=== PATIENT | female | born 1950 | race Caucasian/White ===

== ENCOUNTER 2023-04-24 12:52 | Outpatient (CLI) | payer MEDICARE, OTHER, SELFPAY ==
--- NOTE | ~2023-04-24 | MR_ITS ---
EXAMINATION: MR lumbar spine wo con DATE: 04/24/2023 13:24 INDICATION: Dorsalgia, unspecified. TECHNIQUE: Magnetic resonance imaging (MRI) of the lumbar spine was performed without intravenous con trast. Sequences included sagittal T2-weighted FSE, sagittal T2-weighted FS FSE, sagittal T1-weighted FSE, and axial T2-weighted FSE. COMPARISON: None FINDINGS: There is 6 degrees dextrocurvature of lumbar spine. Vertebral body heights are normal. Ther e is moderately decreased disc height at L4-L5 and L5-S1. The distal spinal cord signal intensity is normal. The conus medullaris is at L1. The following disc levels are specifically discussed: L1-L2: The disc is bulging. There is mild bilateral facet joint osteoarthritis. There is no neural fo raminal stenosis. There is mild central canal stenosis. L2-L3: The disc is bulging. There is mild bilateral facet joint osteoarthritis. There is mild bilater al neural foraminal stenosis. There is mild central canal stenosis. L3-L4: The disc is bulging. There is mild bilateral facet joint osteoarthritis. There is mild bilater al neural foraminal stenosis. There is mild central canal stenosis. L4-L5: The disc is bulging and has an annular fissure. There is mild bilateral facet joint osteoarthr itis. There is moderate right and mild left neural foraminal stenosis. There is mild central canal st enosis. L5-S1: The disc is bulging and has an annular fissure. There is mild bilateral facet joint osteoarthr itis. There is moderate bilateral neural foraminal stenosis. There is mild central canal stenosis. IMPRESSION: 1. Moderate lumbar spondylosis. Reviewed, dictated and finalized at location E.
--- NOTE | ~2023-04-24 | CT_ITS ---
EXAMINATION: CT lumbar spine wo con DATE: 04/24/2023 13:32 INDICATION: Dorsalgia, unspecified. TECHNIQUE: Computed tomography (CT) of the lumbar spine was performed without intravenous contrast. A utomated exposure control and iterative reconstruction technique were employed. The dose-length produ ct was 1286.92 mGy-cm. COMPARISON: Lumbar spine MRI 04/24/2023 FINDINGS: There is a moderate-sized sliding hiatal hernia. There is 9 degrees dextrocurvature of lumb ar spine. Vertebral body heights are normal. There is mildly decreased disc height at L3-L4, moderate ly decreased disc height at L4-L5, and severely decreased disc height at L5-S1. The following disc le vels are specifically discussed: L1-L2: The disc is bulging. There is mild bilateral facet joint osteoarthritis. There is no neural fo raminal stenosis. There is mild central canal stenosis. L2-L3: The disc is bulging. There is mild bilateral facet joint osteoarthritis. There is mild bilater al neural foraminal stenosis. There is mild central canal stenosis. L3-L4: The disc is bulging. There is mild bilateral facet joint osteoarthritis. There is mild bilater al neural foraminal stenosis. There is mild central canal stenosis. L4-L5: The disc is bulging. There is mild bilateral facet joint osteoarthritis. There is moderate rig ht and mild left neural foraminal stenosis. There is mild central canal stenosis. L5-S1: The disc is bulging. There is moderate right and mild left facet joint osteoarthritis. There i s moderate bilateral neural foraminal stenosis. There is mild central canal stenosis. IMPRESSION: 1. Severe lower lumbar spondylosis. 2. Moderate-sized sliding hiatal hernia. Reviewed, dictated and finalized at location E.
== END 2023-04-24 12:53 | disposition home or self-care (01) ==
LOC: ANHIMG 12:54
PROVIDERS: Visit Provider Neurological Surgery
DX: M47.896 Other spondylosis, lumbar region (principal); K44.9 Diaphragmatic hernia without obstruction or gangrene
CPT/HCPCS: 72131; 72148

== ENCOUNTER 2023-07-29 12:27 | Outpatient (CLI) | payer MEDICARE, OTHER, SELFPAY ==
--- NOTE | 2023-07-29 12:43 | ECG_ITS ---
Measurements Intervals [place] Rate: 74 P: -31 AR: 129 QRS: -50 QRSD: 118 T: 53 QT: 406 QTc: 453 Interpretive Statements SINUS RHYTHM LEFT ANTERIOR FASCICULAR BLOCK VOLTAGE CRITERIA FOR LVH BASELINE ARTIFACT- I, II, III, AVR, AVL, AVF, V1-V6 ABNORMAL ECG NO PREVIOUS ECG AVAILABLE FOR COMPARISON Electronically Signed On 07-29-2023 13:22:29 ASSET PROTECTION ASSISTANT by Amilcar Simons D.O.
[2023-07-29 13:14] LABS: Hematocrit 40.1 % (37.0-47.0); Mean Corpuscular HGB Conc 32.4 g/dl (32-36); Mean Corpuscular Hemoglobin 30.2 pg (26-34); Mean Corpuscular Volume 93.3 fl (80-100); Mean Platelet Volume 11.6 fl (7.4-10.4); Platelet Count Result 201 k/mm3 (150-375); White Blood Count 7.8 K/mm3 (4.5-10.0)
[2023-07-29 13:20] LABS: Appearance Urine Cloudy (Clear); Bacteria Urine 4+ /hpf; Bilirubin Urine Negative (Negative); Blood Urine Negative (Negative); Color Urine Yellow (Yellow); Glucose Urine UA Negative (Negative); Ketones Urine Negative (Negative); Leukocyte Esterase Ur Trace LEU/UL (Negative); Nitrate Urine Positive (Negative); Non Pathogenic Casts 0-2; Protein Urine Negative (Negative); RBC Urine 0-2 /hpf (0-2); Specific Grav Ur 1.014 (1.001-1.035); Squamous Epithelial Cell Urine Few /hpf (Few); Urobilinogen Urine 0.2 mg/dL (<2.0); pH Urine 5.5 (5.0-9.0)
[2023-07-29 13:26] LABS: INR 0.9; Prothrombin Time 12.4 Seconds (11.1-14.7)
[2023-07-29 13:27] LABS: Partial Thromboplastin Time 25.8 SECONDS (22.3-36.8)
[2023-07-29 13:34] LABS: Anion Gap 9 mmol/L (8-16); Blood Urea Nitrogen 23 mg/dL (7-17); Calcium 9.4 mg/dL (8.4-10.2); Carbon Dioxide 28 mmol/L (22-30); Chloride 102 mmol/L (98-107); Estimated Glomerular Filt Rate > 60; Glucose 116 mg/dL (65-110); Potassium 4.2 mmol/L (3.4-5.0); Sodium 139 mmol/L (137-145)
[2023-07-29 13:40] LABS: Add Urine Microscopic? YES
== END 2023-07-29 12:28 | disposition home or self-care (01) ==
LOC: ANHSURGERY 12:34
PROVIDERS: PCP Internal Medicine; Visit Provider Neurological Surgery
DX: E78.00 Pure hypercholesterolemia, unspecified (principal); M48.07 Spinal stenosis, lumbosacral region
CPT/HCPCS: 36415; 80048; 81001; 85027; 85610; 85730; 87077; 87086; 87186; 93005

== ENCOUNTER 2023-08-04 01:30 | Day surgery (SDC) | payer MEDICARE, OTHER, SELFPAY ==
[2023-07-27 09:47] VITALS: BMI 31.8
--- NOTE | 2023-07-27 10:09 | PC.NURSE ---
PRE-OP INSTRUCTIONS, PLEASE READ CAREFULLY Report to the Outpatient Waiting Room, entrance under the green pavilion located off [facility], at time _1030_ on date _08/04/23_. Planned Procedure Time: _1230_. ONLY 2 VISITORS ALLOWED IN PRE-OP AREA, PACK A SMALL OVERNIGHT BAG AND LEAVE IN THE CAR Time changes happen often and if your time is changed the preop area will call you the afternoon before. - You and your visitor will be asked to self-screen and do not enter if you have any COVID symptoms. - A mask is optional within the hospital at this time. -VISITING HOURS 8AM-8PM Patients may have clear liquids (water, carbonated beverages, clear teas, apple juice) until 3 hours prior to surgery (0930 AM) with a maximum of 20 ounces. - No food from midnight until time of surgery Take the following medications with a SIP of water the morning of surgery: _GABAPENTIN, LEVOTHYROXINE, MECLIZINE, SYMBICORT INHALER, & HYDROXYZINE, ALBUTEROL INHALER IF NEEDED_ DO NOT STOP ANY OF YOUR OTHER PRESCRIPTION MEDICATIONS PRIOR TO SURGERY ?EXCEPT THE FOLLOWING Medications to discontinue per DR. OLIVAREZ - _PLAVIX, MELOXICAM 7 DAYS PRIOR TO SURGERY, Date to take last dose 07/27/23_ Please no make-up, nail yi, hairspray, perfume, deodorant, or body powder the day of surgery. No jewelry (including any body piercings) or valuables the day of surgery, leave them at home. Please take a shower or bath the night before, or the morning of, surgery with an antibacterial soap. Wear comfortable, loose fitting clothing. - Jewelry must be removed prior to entering the operating room. Rings and piercings that are not removed may be cut off. - The hospital will not accept responsibility for valuables. - Please leave all valuables, including medications, at home the day of surgery. If you are going home after surgery, a licensed bus driver must drive you home. - NO public transportation without another adult if you receive anesthesia. - We recommend that an adult stay with you for 24 hours following discharge. - We also recommend that you do not drive, make important decision, drink alcoholic beverages, or take any drugs that were not prescribed by your health care provider for at least 24 hours after your discharge time. Follow any additional instructions given to you from your surgeon. If you or anyone in your household have experienced Covid symptoms in the past week, please notify your surgeon or the nurse liaison at the phone number below for possible testing. Instructions given to _PATIENT_and asked if any additional questions and then verbalized understanding. Patient advised to call surgeon office or pre surgery nurse liaison [phone] if any additional questions.
[2023-08-04] VITALS (14 sets, daily range): BP systolic 111–158; BP diastolic 60–91; PULSE 70–84; RESP 12–20; TEMP 36–37.2; O2SAT 90–100
--- NOTE | ~2023-08-04 | XR_ITS ---
EXAMINATION: XR fluoroscopy no charge DATE: 08/04/2023 14:00 REHABILITATION COUNSELOR INDICATION: LEFT HEMILAMINECTOMY . TECHNIQUE: 1 fluoroscopic image of the lumbar spine were obtained during left hemilaminectomy perform ed by the surgeon. I was not present in the operating room. Fluoroscopy exposure time was 3.3 seconds . Air Kerma 0.9470 mGy. DAP 0.0188 mGym2. COMPARISON: MRN CT lumbar spine 04/24/2023 FINDINGS: Multilevel degenerative disc disease. A probe identifies posterior elements at the level of S1. IMPRESSION: Fluoroscopic documentation of left hemilaminectomy. Please refer to the operative note for complete p rocedural details . Reviewed, dictated and finalized at location K. BILITATION COUNSELOR IMPRESSION: Fluoroscopic documentation of left hemilaminectomy. Please refer to the operati ve note for complete procedural details .
[2023-08-04] MEDS: LACTATED RINGERS 1,000 ML 30 ML IV CONT ×2 (10:45→16:08)
[2023-08-04] MEDS: fentaNYL CITRATE INJ (*CRX) 100 MCG/2 ML VIAL 25 MCG IV PUSH ×10 (10:57→17:02)
--- NOTE | 2023-08-04 12:36 | WPDANESEPPF ---
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, L5-S1 lateral recess stenosis Patient Data Age: 73 Gender: F Height: 1.63 m Weight: 84.8 kg Last Vital Signs Temp 98.9 F 08/04/23 10:28 Pulse 83 08/04/23 10:28 Resp 18 08/04/23 10:28 BP 121/87 08/04/23 10:28 Pulse Ox 97 08/04/23 10:28 O2 Del Method Room Air 08/04/23 10:28 Allergies Allergy/AdvReac Type Severity Reaction Status Date / Time Fish Containing Products Allergy Severe Vomiting Verified 08/04/23 10:36 Penicillins Allergy Severe Hives Verified 08/04/23 10:36 codeine Allergy Mild Hives Verified 08/04/23 10:36 latex Allergy Mild Hives Verified 08/04/23 10:36 strawberry Allergy Mild Hives Verified 08/04/23 10:36 hydrocodone [From Vicodin] AdvReac Severe Vomiting Verified 08/04/23 10:36 meperidine [From Demerol] AdvReac Severe Vomiting Verified 08/04/23 10:36 tetanus and diphtheria AdvReac Severe Swelling Verified 08/04/23 10:36 toxoids kiwi AdvReac Mild Hives Verified 08/04/23 10:36 Sulfa (Sulfonamide AdvReac Mild hot Verified 08/04/23 10:36 Antibiotics) Home Medications Medication Instructions Recorded Confirmed Type albuterol sulfate 90 mcg/actuation 1 inh inhalation Q4-6H PRN Wheezing 04/13/23 07/27/23 History breath activated powder inhaler calcium carbonate 600 mg calcium 600 mg PO DAILY 04/13/23 08/04/23 History (1,500 mg) tablet (Calcium) cetirizine 10 mg tablet 10 mg PO DAILY PRN Congestion 04/13/23 07/27/23 History clopidogrel 75 mg tablet 75 mg PO DAILY 04/13/23 08/04/23 History gabapentin 300 mg capsule 300 mg PO TID 04/13/23 08/04/23 History hydrochlorothiazide 25 mg tablet 25 mg PO DAILY 04/13/23 08/04/23 History hydroxyzine HCl 25 mg tablet 25 mg PO QID PRN Anxiety 04/13/23 08/04/23 History levothyroxine 50 mcg capsule 50 mcg PO DAILY 04/13/23 08/04/23 History meclizine 25 mg tablet 25 mg PO BID 04/13/23 08/04/23 History meloxicam 15 mg tablet 15 mg PO DAILY 04/13/23 08/04/23 History pantoprazole 40 mg tablet,delayed 40 mg PO QAM 04/13/23 08/04/23 History release simvastatin 40 mg tablet 40 mg PO DAILY 04/13/23 08/04/23 History budesonide-formoterol HFA 80 2 puff inhalation DAILY 07/27/23 08/04/23 History mcg-4.5 mcg/actuation aerosol inhaler (Symbicort) cholecalciferol (vitamin D3) 250 250 mcg PO DAILY 07/27/23 08/04/23 History mcg (10,000 unit) capsule multivitamin 1 tablet PO DAILY 07/27/23 08/04/23 History ciprofloxacin HCl 500 mg tablet 500 mg PO Q12H #10 tabs 07/31/23 08/04/23 Rx (Cipro) Patient hx anesthesia problems: none Family hx anesthesia problems: none Results Review: All pre-operative results and documents have been reviewed as part of the pre-operative evaluation. [facility] Family History Family History Mother Diabetes mellitus Hypertension Heart problem Thyroid disorder Social History Social History Smoking status: Never smoker Second hand tobacco smoke exposure: No Alcohol intake: never Alcohol use details: Rarely Substance use: never Substance use type: does not use Lack of Transportation: No Lack of Food: Never True Current Housing: I Have Housing Concerned About Future Housing: No Difficulty Paying Gas/Electric Bills: No Difficulty Paying for Meds: No Currently Unemployed: No Education: High School Diploma/GED Difficulty w/ Childcare or Family Care: No Living arrangements: with family Additional living arrangements comments: LIVES WITH DISABLED SPOUSE Spiritual care concerns: No Anes - Eval Final PreProcedure Day of Procedure 08/04/23 12:36 Patient weight: obese Heart: regular rate and rhythm Lungs: clear to ausculta
--- NOTE | 2023-08-04 13:16 | PM.IMHP ---
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 She has not changed appreciably since we last saw her. She is not having bowel or bladder difficulty or other constitutional problems. She does not have specific muscle group weakness or dermatomal numbness. Review of Systems Review of Systems: Patient denies shortness of breath, cough, fever, chills, nausea, vomiting, weight loss, weight gain, chest pain, dysuria. She has back and leg pain as above. Review of systems is otherwise negative on 12 systems except as noted elsewhere. [facility] Family History Family History Mother Diabetes mellitus Hypertension Heart problem Thyroid disorder Social History Social History Smoking status: Never smoker Second hand tobacco smoke exposure: No Alcohol intake: never Alcohol use details: Rarely Substance use: never Substance use type: does not use Lack of Transportation: No Lack of Food: Never True Current Housing: I Have Housing Concerned About Future Housing: No Difficulty Paying Gas/Electric Bills: No Difficulty Paying for Meds: No Currently Unemployed: No Education: High School Diploma/GED Difficulty w/ Childcare or Family Care: No Living arrangements: with family Additional living arrangements comments: LIVES WITH DISABLED SPOUSE Spiritual care concerns: No Meds Home Medications and Allergies Home Medications Medication Instructions Recorded Confirmed Type albuterol sulfate 90 mcg/actuation 1 inh inhalation Q4-6H PRN Wheezing 04/13/23 07/27/23 History breath activated powder inhaler calcium carbonate 600 mg calcium 600 mg PO DAILY 04/13/23 08/04/23 History (1,500 mg) tablet (Calcium) cetirizine 10 mg tablet 10 mg PO DAILY PRN Congestion 04/13/23 07/27/23 History clopidogrel 75 mg tablet 75 mg PO DAILY 04/13/23 08/04/23 History gabapentin 300 mg capsule 300 mg PO TID 04/13/23 08/04/23 History hydrochlorothiazide 25 mg tablet 25 mg PO DAILY 04/13/23 08/04/23 History hydroxyzine HCl 25 mg tablet 25 mg PO QID PRN Anxiety 04/13/23 08/04/23 History levothyroxine 50 mcg capsule 50 mcg PO DAILY 04/13/23 08/04/23 History meclizine 25 mg tablet 25 mg PO BID 04/13/23 08/04/23 History meloxicam 15 mg tablet 15 mg PO DAILY 04/13/23 08/04/23 History pantoprazole 40 mg tablet,delayed 40 mg PO QAM 04/13/23 08/04/23 History release simvastatin 40 mg tablet 40 mg PO DAILY 04/13/23 08/04/23 History budesonide-formoterol HFA 80 2 puff inhalation DAILY 07/27/23 08/04/23 History mcg-4.5 mcg/actuation aerosol inhaler (Symbicort) cholecalciferol (vitamin D3) 250 250 mcg PO DAILY 07/27/23 08/04/23 History mcg (10,000 unit) capsule multivitamin 1 tablet PO DAILY 07/27/23 08/04/23 History ciprofloxacin HCl 500 mg tablet 500 mg PO Q12H #10 tabs 07/31/23 08/04/23 Rx (Cipro) Allergies Allergy/AdvReac Type Severity Reaction Status Date / Time Fish Containing Products Allergy Severe Vomiting Verified 08/04/23 10:36 Penicillins Allergy Severe Hives Verified 08/04/23 10:36 codeine Allergy Mild Hives Verified 08/04/23 10:36 latex Allergy Mild Hives Verified 08/04/23 10:36 strawberry Allergy Mild Hives Verified 08/04/23 10:36 hydrocodone [From Vicodin] AdvReac Severe Vomiting Verified 08/04/23 10:36 meperidine [From Demerol] AdvReac Severe Vomiting Verified 08/04/23 10:36 tetanus and diphtheria AdvReac Severe Swelling Verified 08/04/23 10:36 toxoids kiwi AdvReac Mild Hives Verified 08/04/23 10:36 Sulfa (Sulfonamide AdvReac Mild hot Verified 08/04/23 10:36 Antibiotics) Vital Signs Vital Signs - 24 hr 08/04/23 10:28 Temperature 98.9 F
--- NOTE | 2023-08-04 13:22 | WPDHPUPDATE1 ---
History and Physical Update Update Date/Time: 08/04/23 13:22 History and Physical has been reviewed, including an updated exam of the patient. There are NO changes in the patient's condition. Risks, benefits, and alternatives have been discussed and questions answered. Patient agrees to proceed with procedure.
[2023-08-04] MEDS: ceFAZolin 2 GM/D5W 50 ML 2 GM/50 ML BAG IVPB (13:47)
[2023-08-04] MEDS: LIDO 1%/EPINEPHRINE 1:100,000 20 ML VIAL 10 ML INFILTRATE (14:22)
--- NOTE | 2023-08-04 14:52 | SUR.OPER ---
PREOP PINK BRACLET LEFT ARM LIMITED ROM LEFT ARM WEAKNESS WITH PROJECT ENGINEER CHEMICALS/+ SENSATION IN ALL FINGERS. LEFT LEG WEAKNESS WITH FOOT FLEXTION AND EXTENSION +3. + SENSATION TO ALL TOES AND FOOT.
--- NOTE | 2023-08-04 15:29 | P.OP_ITS ---
Procedure Note - Detailed Date of Procedure 08/04/23 Pre-op Diagnosis left L4-5, L5-S1 lateral recess stenosis Post-op Diagnosis Same Procedure Performed Left L4-5 and L5-S1 hemilaminectomy Surgeon Hao Silvestre MD Anesthesia General Description of Procedure Patient was brought to the operating room in the supine position, was sedated, intubated and placed under general anesthesia in routine fashion. She was then turned into the prone position on a Cosmo frame. There were operation her back was examined, marked difference, prepped and draped in routine sterile fashion. Incision was marked over the L4 through S1 spinous processes in the midline. This area was injected with 0.5% lidocaine with [id number] epinephrine. Intravenous antibiotics given prior to incision. Incision was made with a 10 blade scalpel down to the lumbodorsal fascia. A subperiosteal dissection of the muscle soft tissue weight spinous process and lamina was performed with a subperiosteal elevator and Bovie cautery. A verifying x-rays obtained to verify the level of operation. I am at L4-5 on the left a Midas Percy drill was used to perform a hemilaminectomy and medial facetectomy. Under microscopy the yellow ligament was lifted removed piecemeal using Kerrison punches. This was done in the midline. In the lateral epidural space curved curette was used to define a plane with the dura and Kerrison punches were used to remove lifted overgrown bone and ligament in the lateral recess. The nerve was identified at L4-5 and L5-S1 and followed towards its foramen. A Midas Percy drill was used to perform a limited bony foraminotomy. Kerrison punches and curved curettes were used to remove additional bone compl eting the foraminotomy. This was done until a nerve hook could be placed above and below the nerve root out the foramen to confirm lack of compression. The wound was then copiously irrigated with bacitracin irrigation all bleeding stopped with bipolar and Bovie cautery and Gelfoam thrombin powder. The wound was then closed in layered fashion with 2-0 Vicryl interrupted sutures in the lumbodorsal fascia and Shawn's layer. 3-0 Vicryl buried interrupted sutures were placed in the dermis and the skin was closed with a running 4-0 Monocryl subcuticular stitch and dressed with Dermabond. The patient was allowed to wake up in the operating room was taken to the recovery room in stable condition. There were no immediate complications of this operation. All counts were reported correct at the end of the case. Blood loss was 25 cc. The patient was neurologically at her baseline postoperatively. CPT code 76259, 35147 Estimated Blood Loss 25 IV Fluids 1,000 Complications None Condition Stable Disposition PACU [facility] Billing Surgery - Charge Forward: Surgery Billing
[2023-08-04] MEDS: MECLIZINE HCL 25 MG TABLET PO (18:02)
[2023-08-04] MEDS: KCL 20 MEQ/D5/0.45% SOD CHL 1,000 ML 100 ML IV CONT (18:03)
[2023-08-04] MEDS: MORPHINE SULFATE (*CRX) 2 MG/ML INJ IV PUSH ×2 (18:24→21:32)
[2023-08-04] MEDS: ONDANSETRON INJ 4 MG/2 ML VIAL IV PUSH (18:24)
[2023-08-04] MEDS: CIPROFLOXACIN 500 MG TAB PO (21:35)
[2023-08-04] MEDS: GABAPENTIN 300 MG CAPSULE PO (21:35)
[2023-08-04] MEDS: DOCUSATE SODIUM 100 MG CAPSULE PO (21:35)
[2023-08-04] MEDS: ceFAZolin 1 GM/NS 50 ML 1 GM/50 ML BAG IVPB (21:38)
[2023-08-04] MEDS: traMADol HCL (*CRX) 50 MG TABLET 100 MG PO (22:49)
[2023-08-05] MEDS: MORPHINE SULFATE (*CRX) 2 MG/ML INJ IV PUSH ×2 (00:37→09:15)
[2023-08-05] MEDS: hydrOXYzine HCL 25 MG TABLET PO (00:38)
[2023-08-05] MEDS: CYCLOBENZAPRINE HCL 10 MG TABLET PO ×2 (00:57→09:09)
[2023-08-05] MEDS: LEVOTHYROXINE SODIUM 50 MCG TABLET PO (05:48)
[2023-08-05] MEDS: KCL 20 MEQ/D5/0.45% SOD CHL 1,000 ML 100 ML IV CONT (05:48)
[2023-08-05] MEDS: GABAPENTIN 300 MG CAPSULE PO ×2 (05:48→13:46)
[2023-08-05] MEDS: traMADol HCL (*CRX) 50 MG TABLET 100 MG PO ×2 (05:48→13:52)
[2023-08-05] MEDS: ceFAZolin 1 GM/NS 50 ML 1 GM/50 ML BAG IVPB (05:49)
[2023-08-05 06:35] VITALS: BP 125/75; PULSE 73; RESP 18; TEMP 36.3; O2SAT 99
--- NOTE | 2023-08-05 08:02 | WPDANESPN ---
Anes - Prog Note Post-Op Date/Time: 08/05/23 08:02 Cardiovascular status: normal Respiratory status: normal Airway patency: baseline Mental status: baseline Post-Op hydration status: normal Vital Signs: Last Vital Signs Temp 36.3 C L 08/05/23 06:35 Pulse 73 08/05/23 06:35 Resp 18 08/05/23 06:35 BP 125/75 08/05/23 06:35 Pulse Ox 99 08/05/23 06:35 O2 Del Method Room Air 08/04/23 20:00 O2 Flow Rate 2 08/04/23 17:29 Pain Score (VAS): 0 I/O: Intake & Output 08/04/23 08/05/23 08/05/23 23:59 07:59 15:59 Intake Total 750 1350 Output Total 450 Balance 750 900 Post-procedural complaints: none Patient Feedback: Patient satisfied with anesthetic care.
[2023-08-05] MEDS: FLUTICASONE/SALMETEROL 45-21 MCG INHALER 1 PUFF 2 PUFF INHALATION (09:03)
[2023-08-05] MEDS: CHOLECALCIFEROL 1,000 UNITS TABLET 10000 UNITS PO (09:09)
[2023-08-05] MEDS: SIMVASTATIN 20 MG TABLET 40 MG PO (09:09)
[2023-08-05] MEDS: MULTIVITAMINS THERAPEUTIC TAB (*BKC) 1 TABLET PO (09:10)
[2023-08-05] MEDS: PANTOPRAZOLE 40 MG TABLET PO (09:10)
[2023-08-05] MEDS: hydroCHLOROthiazide 25 MG TABLET PO (09:10)
[2023-08-05] MEDS: CALCIUM CARBONATE (OSCAL) 500 MG TABLET PO (09:10)
[2023-08-05] MEDS: CIPROFLOXACIN 500 MG TAB PO (09:10)
[2023-08-05] MEDS: MECLIZINE HCL 25 MG TABLET PO (09:10)
[2023-08-05] MEDS: DOCUSATE SODIUM 100 MG CAPSULE PO (09:10)
[2023-08-05] MEDS: ONDANSETRON INJ 4 MG/2 ML VIAL IV PUSH (09:20)
[2023-08-05 10:35] VITALS: BP 103/60; PULSE 79; RESP 14; TEMP 36.4; O2SAT 94
--- NOTE | 2023-08-05 14:09 | WPDNEUROSGPN ---
Progress Note: A&P Assessment and Plan (1) Stenosis of lateral recess of lumbar spine: Code(s): M48.061 - Spinal stenosis, lumbar region without neurogenic claudication Status: Acute Assessment and Plan: POD#1 s/p left L4-5, L5-S1 hemilaminectomies for decompression Patient reports improving pain control, wants to go home this afternoon. Discussed post-op instructions and expectations. Plan: - dc home today with family support - return to office in 6 weeks, patient instructed to call in interim with any questions. Subjective Date/time seen: 08/05/23 14:09 Interval history: Patient reports having a rough overnight with pain control. Feeling better this afternoon, c/o expected back pain. Does report improvement in her preop left leg symptoms including resolved numbness. Exam Const: Other: GENERAL: The patient appears well-nourished, well-developed, and in no acute distress SKIN: lumbar incision is clean / dry / skin glue intact NEUROLOGIC EXAMINATION: Mental status: Patient is awake, alert, and oriented to person place and time. Speech is clear and fluent. Motor: Strength is 5/5 in bilateral lower extremities Sensory: Sensation is intact to light touch throughout bilateral lower extremities. Objective Data Vital Signs Vital Signs: Vital Signs - 24 hr 08/04/23 15:25 08/04/23 15:40 08/04/23 15:55 Temperature 97.3 F L Pulse Rate 79 73 77 Respiratory Rate 19 12 16 Blood Pressure 158/91 H 152/91 H 154/86 H Pulse Oximetry 100 100 100 Oxygen Delivery Simple Face Mask Simple Face Mask Room Air Oxygen Flow Rate 6 6 08/04/23 16:10 08/04/23 16:25 08/04/23 16:40 Temperature Pulse Rate 81 78 76 Respiratory Rate 18 18 18 Blood Pressure 138/81 148/82 H 153/77 H Pulse Oximetry 98 100 99 Oxygen Delivery Room Air Room Air Room Air Oxygen Flow Rate 08/04/23 16:55 08/04/23 17:10 08/04/23 17:30 Temperature 97.6 F 97.2 F L Pulse Rate 77 80 84 Respiratory Rate 18 18 20 Blood Pressure 140/81 111/79 155/79 H Pulse Oximetry 90 98 96 Oxygen Delivery Nasal Cannula Nasal Cannula Oxygen Flow Rate 2 2 08/04/23 17:45 08/04/23 18:15 08/04/23 17:29 Temperature 97.5 F L 96.8 F L Pulse Rate 70 74 Respiratory Rate 18 16 Blood Pressure 155/79 H 120/72 Pulse Oximetry 96 96 96 Oxygen Delivery Nasal Cannula Oxygen Flow Rate 2 08/04/23 21:58 08/04/23 20:00 08/05/23 06:35 Temperature 97.9 F 97.3 F L Pulse Rate 81 73 Respiratory Rate 16 18 Blood Pressure 114/60 125/75 Pulse Oximetry 95 99 Oxygen Delivery Room Air Oxygen Flow Rate 08/05/23 08:51 08/05/23 10:35 Temperature 97.6 F Pulse Rate 79 Respiratory Rate 14 Blood Pressure 103/60 Pulse Oximetry 94 Oxygen Delivery Room Air Oxygen Flow Rate Intake/Output Intake/Output: Intake & Output 08/02/23 08/03/23 08/04/23 08/05/23 23:59 23:59 23:59 23:59 Intake Total 1800 1630 Output Total 450 Balance 1800 1180 Meds/Results Medications: Active Medications Generic Name Dose Route Start Last Admin Trade Name Freq PRN Reason Stop Dose Admin Al Hydrox/Mg Hydrox/Simethicone 20 ml 08/04/23 15:35 Mag Hydrox/Al Hydrox/Simeth 30 Ml Udc PO Q4H PRN Indigestion/Heartburn Albuterol 1 puff 08/04/23 15:37 Albuterol Sulfate (*Sp) Aerosol 1 Puff INHALATION Q4HRT PRN Wheezing Bisacodyl 10 mg 08/04/23 15:35 Bisacodyl 10 Mg Suppository RECTAL DAILY PRN Constipation Calcium Carbonate 500 mg 08/05/23 09:00 08/05/23 09:10 Calcium Carbonate (Oscal) 500 Mg Tablet PO 09/04/23 08:59 500 mg DAILY LANG Administration Ciprofloxacin 500 mg 08/04/23 21:00 08/05/23 09:10 Ciprofloxacin 500 Mg Tab PO 500 mg Q12HR LANG Administration Cyclobenzaprine HCl 10 mg 08/04/23 15:35 08/05/23 09:09 Cyclobenzaprine Hcl 10 Mg Tablet PO 10 mg TID PRN Administration Muscle Spasms Docusate Sodium 100 mg 0
[2023-08-05 14:35] VITALS: BP 133/75; PULSE 65; RESP 16; TEMP 36.9; O2SAT 97
== END 2023-08-05 16:20 | disposition home or self-care (01) ==
LOC: ANHSURGERY 13:03 → ANH3MEDSUR 17:20
PROVIDERS: PCP Internal Medicine; Visit Provider Neurological Surgery
PROC: (CPT 63005; principal; 2023-08-04 12:30)
DX: M48.061 Spinal stenosis, lumbar region without neurogenic claudication (principal); E11.9 Type 2 diabetes mellitus without complications; I10 Essential (primary) hypertension; E07.9 Disorder of thyroid, unspecified; E66.9 Obesity, unspecified; Z68.32 Body mass index [BMI] 32.0-32.9, adult; Z79.51 Long term (current) use of inhaled steroids; Z79.02 Long term (current) use of antithrombotics/antiplatelets; Z86.79 Personal history of other diseases of the circulatory system
CPT/HCPCS: 63047; 63048; 94640; 97166; 99199; A9270; J0690; J1100; J2270; J2405; J2704; J3010; J3480; J7120

== ENCOUNTER 2023-10-22 09:52 | Outpatient (CLI) | payer MEDICARE, OTHER, SELFPAY ==
--- NOTE | ~2023-10-22 | CT_ITS ---
Non-contrast Head CT History: Cerebral infarction Technique: Axial non-contrast imaging of the brain was performed. Dose reduction technique was used on this scan by utilizing automated exposure control and iterative reconstruction technique. The dose -length product (DLP) was 605.33 mGy-cm. Findings: There is no evidence of intracranial hemorrhage, mass lesion, or acute infarct. Brain par enchyma appears normal. The ventricles and subarachnoid spaces are normal in size. The calvarium ap pears normal. The visualized paranasal sinuses and mastoid air cells are clear. Impression: No significant abnormality seen. Reviewed, dictated and finalized at location . Impression: No significant abnormality seen.
--- NOTE | ~2023-10-22 | XR_ITS ---
AP view of the pelvis and AP and lateral views of the left hip Clinical history: Pain Findings: No acute fracture or dislocation is seen. Osseous alignment is anatomic. Minimal degenerati ve change of both hip joints noted. There is degenerative spondylosis of the lower lumbar spine. Soft tissues are unremarkable. Impression: Minimal degenerative change of both hips. Reviewed, dictated and finalized at location . Impression: Minimal degenerative change of both hips.
== END 2023-10-22 09:53 | disposition home or self-care (01) ==
PROVIDERS: PCP Internal Medicine; Visit Provider Physician Assistant
DX: I63.9 Cerebral infarction, unspecified (principal); R26.89 Other abnormalities of gait and mobility; M25.552 Pain in left hip
CPT/HCPCS: 70450; 73502

== ENCOUNTER 2023-11-23 09:53 | Emergency (ER) | payer MEDICARE, OTHER, SELFPAY ==
--- NOTE | ~2023-11-23 | XR_ITS ---
EXAMINATION: XR chest 2V DATE: 11/23/2023 10:42 INDICATION: Cough. TECHNIQUE: Frontal and lateral views of the chest were obtained on 4 radiographs. COMPARISON: None. FINDINGS: There is no pneumonia, pleural effusion, or pneumothorax. The heart size is normal. IMPRESSION: 1. No acute cardiopulmonary disease. Reviewed, dictated and finalized at location E.
[2023-11-23 09:58] VITALS: BP 164/82; PULSE 82; RESP 20; TEMP 37.8; O2SAT 100
--- NOTE | 2023-11-23 10:23 | ED.GENADULT ---
HPI - General Adult General Chief complaint: Upper Respiratory Infection Stated complaint: Upper Respiratory/throat Source: patient Mode of arrival: ambulatory Limitations: no limitations History of Present Illness HPI narrative: Patient presents for evaluation of sick symptoms. Symptom onset 2 weeks ago. She initially had sinus congestion and a mild cough. Her symptoms significantly worsened yesterday. She reports mucopurulent discharge from the nares, productive cough of yellow sputum, shortness of breath, headache, chills. She denies any fever, nausea, vomiting. Her grandchild has similar symptoms. She is a former smoker. She is not taking any medications OTC to assist with her symptoms. Related Data Home Medications Medication Instructions Recorded Confirmed albuterol sulfate 90 mcg/actuation 1 inh inhalation Q4-6H PRN Wheezing 04/13/23 11/23/23 breath activated powder inhaler calcium carbonate (Calcium 600) 600 mg PO DAILY 04/13/23 11/23/23 cetirizine 10 mg tablet 10 mg PO DAILY PRN Congestion 04/13/23 11/23/23 gabapentin 300 mg capsule 300 mg PO TID 04/13/23 11/23/23 hydroxyzine HCl 25 mg tablet 25 mg PO QID PRN Anxiety 04/13/23 11/23/23 levothyroxine 50 mcg capsule 50 mcg PO DAILY 04/13/23 11/23/23 meclizine 25 mg tablet 25 mg PO TID PRN Dizziness Or 04/13/23 11/23/23 Vertigo meloxicam 15 mg tablet 15 mg PO DAILY 04/13/23 11/23/23 pantoprazole 40 mg tablet,delayed 40 mg PO QAM 04/13/23 11/23/23 release simvastatin 40 mg tablet 40 mg PO DAILY 04/13/23 11/23/23 cholecalciferol (vitamin D3) 250 250 mcg PO DAILY 07/27/23 11/23/23 mcg (10,000 unit) capsule multivitamin 1 tablet PO DAILY 07/27/23 11/23/23 clopidogrel 75 mg tablet 75 mg PO DAILY 11/23/23 11/23/23 mometasone-formoterol HFA 100 2 puff inhalation Q12H 11/23/23 11/23/23 mcg-5 mcg/actuation aerosol inhaler (Dulera) Allergies Allergy/AdvReac Type Severity Reaction Status Date / Time Fish Containing Products Allergy Severe Vomiting Verified 11/23/23 10:15 Penicillins Allergy Severe Hives Verified 11/23/23 10:15 codeine Allergy Mild Hives Verified 11/23/23 10:15 latex Allergy Mild Hives Verified 11/23/23 10:15 strawberry Allergy Mild Hives Verified 11/23/23 10:15 hydrocodone [From Vicodin] AdvReac Severe Vomiting Verified 11/23/23 10:15 meperidine [From Demerol] AdvReac Severe Vomiting Verified 11/23/23 10:15 tetanus and diphtheria AdvReac Severe Swelling Verified 11/23/23 10:15 toxoids kiwi AdvReac Mild Hives Verified 11/23/23 10:15 Sulfa (Sulfonamide AdvReac Mild hot Verified 11/23/23 10:15 Antibiotics) tramadol AdvReac Mild Nausea Verified 11/03/23 10:49 Review of Systems Review of Systems: CONSTITUTIONAL:Reports chills. Denies fever or sweats. EYES: Denies visual changes, redness, or discharge. ENT: Reports sinus congestion, mucopurulent discharge from the nares and sore throat CARDIOVASCULAR: Denies chest pain, palpitations, or edema. RESPIRATORY: Reports productive cough of yellow sputum and SOB GASTROINTESTINAL: Denies abdominal pain, nausea, vomiting, or diarrhea. GENITOURINARY: Denies dysuria or hematuria. SKIN: Denies rash or itching. MUSCULOSKELETAL: Denies back pain, joint pain, or myalgia. NEUROLOGIC: Denies headache, numbness, dizziness, or weakness. PSYCHIATRIC: Denies anxiety or depression. [facility] Past Medical History Medical History Asthma Surgical History Surgical History Previous back surgery Family History Family History Mother Diabetes mellitus Hypertension Heart problem Thyroid disorder Social History Social History Smoking status: Former smoker Second hand tobacco smoke exposure: No Alcohol intake: never Alcohol use details: Rarely Substance use:
== END 2023-11-23 10:55 | disposition home or self-care (01) ==
PROVIDERS: Emergency Provider Nurse Practitioner; PCP Internal Medicine
DX: J01.80 Other acute sinusitis (principal); B96.89 Other specified bacterial agents as the cause of diseases classified elsewhere; J45.909 Unspecified asthma, uncomplicated; Z87.891 Personal history of nicotine dependence
CPT/HCPCS: 71046; 99213; G0463

== ENCOUNTER 2023-12-11 09:45 | Outpatient (CLI) | payer MEDICARE, OTHER, SELFPAY ==
--- NOTE | ~2023-12-11 | CT_ITS ---
EXAMINATION: CT pelvis wo con DATE: 12/11/2023 10:10 INDICATION: Other specified post procedural states. Spinal stenosis. Bilateral hip pain. TECHNIQUE: Computed tomography (CT) of the pelvis was performed without intravenous contrast. Automat ed exposure control and iterative reconstruction technique were employed. The dose-length product was 443.19 mGy-cm. COMPARISON: Pelvis and hip radiographs 10/22/2023 FINDINGS: Bone alignment is normal. No fracture. There is a benign bone island in right sacral ala. O steitis pubis is noted. There is severe lumbar spondylosis. There is moderate osteoarthritis of the h ips. IMPRESSION: 1. Moderate osteoarthritis of the hips. Reviewed, dictated and finalized at location E.
--- NOTE | ~2023-12-11 | CT_ITS ---
EXAMINATION: CT lumbar spine wo con DATE: 12/11/2023 10:11 INDICATION: Spinal stenosis. Bilateral hip pain. TECHNIQUE: Computed tomography (CT) of the lumbar spine was performed without intravenous contrast. A utomated exposure control and iterative reconstruction technique were employed. The dose-length produ ct was 631.45 mGy-cm. COMPARISON: CT lumbar spine 04/24/2023, MRI 04/24/2023 FINDINGS: There is a moderate-sized sliding hiatal hernia. There is 6 degrees dextrocurvature of lumb ar spine. There is hypolordosis of the lumbar spine. Vertebral body heights are normal. There is mild ly decreased disc height at L3-L4 and severely decreased disc height at L4-L5 and L5-S1. The followin g disc levels are specifically discussed: L1-L2: The disc is bulging. There is severe right and moderate left facet joint osteoarthritis. There is no neural foraminal stenosis. There is mild central canal stenosis. L2-L3: The disc is bulging. There is severe bilateral facet joint osteoarthritis. There is mild bilat eral neural foraminal stenosis. There is mild central canal stenosis. L3-L4: The disc is bulging. There is moderate bilateral facet joint osteoarthritis. There is mild jaun ateral neural foraminal stenosis. There is mild central canal stenosis. L4-L5: The disc is bulging. There is mild bilateral facet joint osteoarthritis. There is mild bilater al neural foraminal stenosis. There is mild central canal stenosis with changes of posterior decompre ssion. L5-S1: The disc is bulging. There is severe bilateral facet joint osteoarthritis. There is moderate b ilateral neural foraminal stenosis. There is mild central canal stenosis with changes of posterior de compression. IMPRESSION: 1. Severe lower lumbar spondylosis status post posterior decompression. 2. Moderate-sized sliding hiatal hernia. Reviewed, dictated and finalized at location E.
== END 2023-12-11 09:46 | disposition home or self-care (01) ==
LOC: ANHIMG 09:48
PROVIDERS: PCP Internal Medicine; Visit Provider Anesthesiology Pain Medicine
DX: M46.1 Sacroiliitis, not elsewhere classified (principal); Z91.81 History of falling; Z98.890 Other specified postprocedural states; M48.061 Spinal stenosis, lumbar region without neurogenic claudication; M48.07 Spinal stenosis, lumbosacral region; M47.896 Other spondylosis, lumbar region; K44.9 Diaphragmatic hernia without obstruction or gangrene; M16.0 Bilateral primary osteoarthritis of hip
CPT/HCPCS: 72131; 72192

== ENCOUNTER 2024-01-12 08:43 | Day surgery (SDC) | payer MEDICARE, OTHER, SELFPAY ==
[2024-01-07 13:57] VITALS: BMI 28.5
--- NOTE | ~2024-01-12 | XR_ITS ---
EXAMINATION: XR fluoroscopy no charge DATE: 01/12/2024 9:10 CDT INDICATION: DIAG/PROG INTRA-ART INJ LEFT SI JT . TECHNIQUE: 5 fluoroscopic images of the left SI joint were obtained during left SI joint injection, p erformed by Dominic Wang MD. I was not present during the procedure. Fluoroscopy exposure time wa s 8.4 seconds. Air Kerma 2.6 mGy. COMPARISON: None FINDINGS/IMPRESSION: Fluoroscopic documentation of left SI joint injection. Please refer to the operative note for complet e procedural details . Reviewed, dictated and finalized at location K.
--- NOTE | 2024-01-12 06:27 | PM.HPGS ---
History of Present Illness History of Present Illness Consent: Risks, benefits, and alternatives have been discussed and questions answered. Patient agrees to proceed with procedure. Chief complaint: Sacroiliitis, chronic low back pain Narrative: Yaima Gutierrez is a 73 year old female with chronic, recalcitrant and disabling left sacral back pain secondary to sacroiliitis/ sacral spondyloarthropathy with failure to respond to aggressive conservative measures including PT, oral and topical analgesics, opioid and nonopioid analgesics, rest, time and activity/behavioral modification over the past 1-2 years who presents for diagnostic/prognostic intra-articular sacroiliac joint block (#1) under fluoroscopic guidance and with contrast control. Review of Systems Review of Systems: Patient denies any new infectious, allergic, cardiopulmonary, neurologic or constitutional symptoms or changes in activity tolerance or exercise capacity including new or progressive SOB/[place], peripheral edema, productive cough, dysuria, nausea/vomiting, diarrhea, weight change, fevers/chills/night sweats, new or progressive neurologic deficit, cognitive or mood changes since last seen, except as documented in the HPI. All systems reviewed & are unremarkable except as noted in HPI and below PMFSH Past Medical History Medical History Asthma Surgical History Surgical History Previous back surgery Family History Family History Mother Diabetes mellitus Hypertension Heart problem Thyroid disorder Social History Social History Smoking status: Former smoker Tobacco type: cigarettes Second hand tobacco smoke exposure: Yes Alcohol intake: never Alcohol use details: Rarely Substance use: never Substance use type: does not use Do You Feel Safe in your Home?: Yes Lack of Transportation: No Lack of Food: Never True Current Housing: I Have Housing Concerned About Future Housing: No Difficulty Paying Gas/Electric Bills: No Difficulty Paying for Meds: No Currently Unemployed: No Education: High School Diploma/GED Difficulty w/ Childcare or Family Care: No Living arrangements: with family Additional living arrangements comments: LIVES WITH DISABLED SPOUSE Spiritual care concerns: No Meds Home Medications and Allergies Home Medications Medication Instructions Recorded Confirmed Type albuterol sulfate 90 mcg/actuation 1 inh inhalation Q4-6H PRN Wheezing 04/13/23 01/07/24 History breath activated powder inhaler calcium carbonate (Calcium 600) 600 mg PO DAILY 04/13/23 01/07/24 History cetirizine 10 mg tablet 10 mg PO DAILY PRN Congestion 04/13/23 01/07/24 History gabapentin 300 mg capsule 300 mg PO TID 04/13/23 01/07/24 History hydroxyzine HCl 25 mg tablet 25 mg PO QID PRN Anxiety 04/13/23 01/07/24 History levothyroxine 50 mcg capsule 50 mcg PO DAILY 04/13/23 01/07/24 History meclizine 25 mg tablet 25 mg PO TID PRN Dizziness Or 04/13/23 01/07/24 History Vertigo meloxicam 15 mg tablet 15 mg PO DAILY 04/13/23 01/07/24 History pantoprazole 40 mg tablet,delayed 40 mg PO QAM 04/13/23 01/07/24 History release simvastatin 40 mg tablet 40 mg PO DAILY 04/13/23 01/07/24 History cholecalciferol (vitamin D3) 250 250 mcg PO DAILY 07/27/23 01/07/24 History mcg (10,000 unit) capsule multivitamin 1 tablet PO DAILY 07/27/23 01/07/24 History clopidogrel 75 mg tablet 75 mg PO DAILY 11/23/23 01/07/24 History doxycycline hyclate 100 mg tablet 100 mg PO BID #20 tabs 11/23/23 01/07/24 Rx mometasone-formoterol HFA 100 2 puff inhalation Q12H 11/23/23 01/07/24 History mcg-5 mcg/actuation aerosol inhaler (Dulera) budesonide 6 mg capsule,extended 6 mg PO DAILY 01/07/24 01/07/24 History relea
--- NOTE | 2024-01-12 06:32 | WPDHPUPDATE1 ---
History and Physical Update Update Date/Time: 01/12/24 06:32 History and Physical has been reviewed, including an updated exam of the patient. There are NO changes in the patient's condition. Risks, benefits, and alternatives have been discussed and questions answered. Patient agrees to proceed with procedure.
--- NOTE | 2024-01-12 06:34 | W.PM.PROC2 ---
Procedure Note - Detailed Date of Procedure 01/12/24 Pre-op Diagnosis Sacroiliitis, chronic low back pain Post-op Diagnosis Same Procedure Performed Diagnostic/Prognostic Block of the Left Sacroiliac Joint by Intra-Articular Injection of Local Anesthetic (# 1) Under Fluoroscopic Guidance and With Contrast Control. Surgeon Dominic Wang MD Anesthesia Local ([Local anesthetic infiltration] in the prone position.) Description of Procedure INFORMED CONSENT: Risks, benefits and alternatives to the procedure were discussed in detail with the patient who expressed explicit understanding and consent to proceed. Patient was informed verbally and in written form regarding the risks associated with the procedure including the low risk of serious infection, bleeding/bruising, allergic reaction, local anesthetic toxicity, nerve or organ injury, paralysis, procedural site pain or discomfort, worsening pain and/or mobility, failure to treat and/or disfigurement. The patient expressed explicit understanding and consent to proceed. All materials required for the procedure were available prior to procedure start. Site and side were marked prior to procedure and confirmed in the presence of the patient. PROCEDURE IN DETAIL: The patient was brought to the procedural suite and placed in the prone position. Patient was made comfortable with use of pillows under the head/chest, hips and ankles. Skin overlying the injection site on the affected side was prepared broadly with ChloraPrep applicator and draped in a sterile manner. Aseptic technique was used throughout. The SI joint was identified in the AP view and contralateral oblique angulation with caudal tilt was utilized to optimize visualization of the inferior and medial joint line representing the posterior joint space. Local anesthesia was established by infiltration with approximately 5 mL of 2% PF lidocaine via a 1-1/2 inch 27-gauge needle. A 22-gauge 3.5 inch Quincke spinal needle was advanced until the needle entered the inferior third of the posterior joint space approximately 1cm cephalad from its most inferior point. Appropriate final needle position was confirmed in the AP, lateral and oblique views. In the oblique view, 0.5 mL of Omnipaque 300 contrast medium was injected after negative aspiration for CSF, blood or other bodily fluid, showing appropriate intra-articular spread of contrast without evidence of intravascular, perineural or intrathecal placement. 1.5 mL of 0.5% PF bupivacaine was injected after repeat negative aspiration. Appropriate spread of the injectate was confirmed with washout of previous injected contrast. No parasthesias were elicited. Needle was removed completely intact without difficulty. Images were saved and documented in the patient chart. Patient's skin was cleansed and sterile bandage applied. The patient tolerated the procedure well. The patient was transported to the recovery area in stable condition where they were observed for an appropriate amount of time prior to discharge, without evidence of complication. The patient was instructed to avoid excessive activity for the next 48 hours, including climbing and frequent use of stairs. Showers only for 48 hours. They were instructed not to drive or operate heavy machinery for 24 hours. They are to monitor for severe headaches, fevers, chills, night sweats, erythema/swelling at the site or any other signs of infection, bleeding/bruising, bowel or bladder changes as well as new pain, weakness or numbness in the upper or lower extremity. Should they notice these changes, they are instructed to call our office immediately or report directly to the nearest Emergency Department if no answer or if after posted office hours. COMPLICATIONS: None. COMMENTS: None CONTRAST WASTED: 29.5mL Omnipaque 300. Estimated Blood Loss 0 IV Fluids 0 Urine Output 0 Drains No Packing No Pathology None sent Complications No immediate complicatio
[2024-01-12 09:13] VITALS: BP 155/90; PULSE 62; RESP 18; TEMP 37.4; O2SAT 100; BMI 28.5
[2024-01-12 09:19] VITALS: BP 174/83; PULSE 72; RESP 20; O2SAT 100
[2024-01-12 09:21] VITALS: BP 152/78; PULSE 76; RESP 18; O2SAT 99
[2024-01-12] MEDS: BUPivacaine HCL 0.5% 10 ML AMP INFILTRATE (09:21)
[2024-01-12] MEDS: LIDOCAINE HCL 1% PF INJ 5 ML VIAL 2 ML XX (09:24)
[2024-01-12 09:29] VITALS: BP 159/102; PULSE 73; RESP 18; O2SAT 100
== END 2024-01-12 09:38 | disposition home or self-care (01) ==
PROVIDERS: PCP Internal Medicine; Visit Provider Anesthesiology Pain Medicine
PROC: (CPT G0260; principal; 2024-01-12 09:15)
DX: M46.1 Sacroiliitis, not elsewhere classified (principal); M54.59 Other low back pain
CPT/HCPCS: G0260; 27096; 99199

== ENCOUNTER 2024-07-11 08:01 | Outpatient (CLI) | payer MEDICARE, OTHER, SELFPAY ==
[2024-07-11 09:35] LABS: Hemoglobin 12.4 g/dL (12.0-15.0); Mean Corpuscular HGB Conc 32.6 g/dl (32-36); Mean Corpuscular Hemoglobin 31.4 pg (26-34); Mean Corpuscular Volume 96.2 fl (80-100); Mean Platelet Volume 10.9 fl (7.4-10.4); Platelet Count Result 187 k/mm3 (150-375); Red Blood Count 3.95 M/mm3 (4.2-5.4); Red Cell Distribution Width 12.6 % (11.5-14.5); White Blood Count 5.1 K/mm3 (4.5-10.0)
[2024-07-11 09:45] LABS: Anion Gap 7 mmol/L (4-12); Blood Urea Nitrogen 26 mg/dL (7-17); Carbon Dioxide 29 mmol/L (22-30); Chloride 103 mmol/L (98-107); Estimated Glomerular Filt Rate > 60; Glucose 84 mg/dL (65-110); Potassium 4.7 mmol/L (3.4-5.0); Sodium 139 mmol/L (137-145)
[2024-07-11 09:47] LABS: INR 0.9; Partial Thromboplastin Time 26.3 Seconds (22.3-36.8); Prothrombin Time 12.8 Seconds (11.1-14.7)
[2024-07-11 10:20] LABS: Add Urine Microscopic? YES; Appearance Urine Clear (Clear); Bacteria Urine 4+ /hpf; Bilirubin Urine Negative (Negative); Blood Urine Negative (Negative); Color Urine Yellow (Yellow); Glucose Urine UA Negative (Negative); Ketones Urine Negative (Negative); Leukocyte Esterase Ur Trace LEU/UL (Negative); Nitrate Urine Positive (Negative); Non Pathogenic Casts 0-2; Protein Urine Negative (Negative); RBC Urine 0-2 /hpf (0-2); Specific Grav Ur 1.009 (1.001-1.035); Squamous Epithelial Cell Urine None Seen /hpf (Few); Urobilinogen Urine 0.2 mg/dL (<2.0); pH Urine 5.5 (5.0-9.0)
== END 2024-07-11 08:02 | disposition home or self-care (01) ==
PROVIDERS: PCP Internal Medicine; Visit Provider Neurological Surgery
DX: M46.1 Sacroiliitis, not elsewhere classified (principal); Z01.818 Encounter for other preprocedural examination
CPT/HCPCS: 36415; 80048; 81001; 85027; 85610; 85730; 86850; 86900; 86901; 87086; 87186

== ENCOUNTER 2024-07-19 00:38 | Day surgery (SDC) | payer MEDICARE, OTHER, SELFPAY ==
--- NOTE | 2024-07-11 07:48 | PC.NURSE ---
Report to the Outpatient Waiting Room, entrance under the green pavilion located off [facility], at time __6AM on date __07/19/24 . Planned Procedure Time: __7:30 AM .? Time changes happen often and if your time is changed the preop area will call you the afternoon before. - You and your visitor will be asked to self-screen and do not enter if you have any COVID symptoms. Please call surgeon if you need to reschedule. - A mask is optional within the hospital at this time. Patients may have clear liquids (water, carbonated beverages, clear teas, apple juice) until 3 hours prior to surgery( 4:30 AM) with a maximum of 20 ounces. - No food from midnight until time of surgery and no smoking. This includes no chewing gum, candy or mints. Take only the following medications with a SIP of water on the morning of surgery: ___LEVOTHYROXINE,GABAPENTIN,DULERA INHALER_,HYDROXYZINE IF NEEDED FOR ANXIETY DO NOT STOP ANY OF YOUR OTHER PRESCRIPTION MEDICATIONS PRIOR TO SURGERY EXCEPT THE FOLLOWING Medications to discontinue per physician __PT STATES ___HOLD PLAVIX AND MELOXICAM 7 DAYS PRE OP_PER DR HENDERSON.LAST DOSE07/11/24 HOLD ALL VITAMINS AND SUPPLEMENTS 3 DAYS PRE OP .LAST DOSE 07/15/24 Please no make-up, nail yakut, hairspray, perfume, deodorant, or body powder the day of surgery.? No jewelry (including any body piercings) or valuables the day of surgery, leave them at home.? Please take a shower or bath the night before, or the morning of, surgery with an antibacterial soap.? Wear comfortable, loose fitting clothing.? Children are encouraged to wear pajamas. - Jewelry must be removed prior to entering the operating room.? Rings and piercings that are not removed may be cut off. - The hospital will not accept responsibility for valuables.? - Please leave all valuables, including medications, at home the day of surgery. If you are going home after surgery, a licensed milk delivery driver must drive you home.? - NO public transportation without another adult if you receive anesthesia. - We recommend that an adult stay with you for 24 hours following discharge. - We also recommend that you do not drive, make important decision, drink alcoholic beverages, or take any drugs that were not prescribed by your health care provider for at least 24 hours after your discharge time. Follow any additional instructions given to you from your surgeon. VERBAL AND WRITTEN instructions given to PATIENT and asked if any additional questions and then verbalized understanding. Patient advised to call surgeon office or pre surgery nurse liaison [phone] if any additional questions.
[2024-07-11 08:10] VITALS: BMI 28.1
[2024-07-11 09:04] VITALS: BP 127/76; PULSE 62; RESP 18; TEMP 36.9; O2SAT 97
--- NOTE | 2024-07-18 15:34 | WPDANESEPPF ---
Anes - Initial Pre Proc Eval Procedure: Operation Date: 07/19/24 07:30 Proposed Procedures p Left Sacroiliac Joint Fusion - Hao Silvestre MD Date/Time: 07/18/24 15:34 Surgeon: Hao Silvestre MD Pre Op Diagnosis: Left Sacroiliitis Patient Data Age: 74 Gender: F Height: 1.63 m Weight: 74.4 kg Last Vital Signs Temp 36.9 C 07/11/24 09:04 Pulse 62 07/11/24 09:04 Resp 18 07/11/24 09:04 BP 127/76 07/11/24 09:04 Pulse Ox 97 07/11/24 09:04 O2 Del Method Room Air 07/11/24 09:04 Allergies Allergy/AdvReac Type Severity Reaction Status Date / Time Fish Containing Products Allergy Severe Vomiting Verified 07/11/24 08:18 latex Allergy Severe Itching Verified 07/11/24 08:18 Penicillins Allergy Severe Hives Verified 07/11/24 08:18 codeine Allergy Mild Hives AND Verified 07/11/24 08:18 VOMITING strawberry Allergy Mild Hives Verified 07/11/24 08:18 hydrocodone (From Vicodin) AdvReac Severe Vomiting Verified 07/11/24 08:18 meperidine (From Demerol) AdvReac Severe Vomiting Verified 07/11/24 08:18 tetanus and diphtheria AdvReac Severe Swelling Verified 07/11/24 08:18 toxoids kiwi AdvReac Mild Hives Verified 07/11/24 08:18 Sulfa (Sulfonamide AdvReac Mild Vomiting Verified 07/11/24 08:18 Antibiotics) tramadol AdvReac Mild Nausea Verified 07/11/24 08:18 Home Medications ?Medication ?Instructions ?Recorded ?Confirmed ?Type albuterol sulfate 90 mcg/actuation 1 inh inhalation Q4-6H PRN Wheezing 04/13/23 07/11/24 History breath activated powder inhaler calcium carbonate (Calcium 600) 600 mg PO DAILY 04/13/23 07/11/24 History cetirizine 10 mg tablet 10 mg PO DAILY PRN Congestion 04/13/23 07/11/24 History gabapentin 300 mg capsule 300 mg PO Q12H 04/13/23 07/11/24 History hydroxyzine HCl 25 mg tablet 25 mg PO QID PRN Anxiety 04/13/23 07/11/24 History levothyroxine 50 mcg capsule 50 mcg PO DAILY 04/13/23 07/11/24 History meclizine 25 mg tablet 25 mg PO TID PRN Dizziness Or 04/13/23 07/11/24 History Vertigo meloxicam 15 mg tablet 15 mg PO DAILY 04/13/23 07/11/24 History pantoprazole 40 mg tablet,delayed 40 mg PO QAM 04/13/23 07/11/24 History release simvastatin 40 mg tablet 40 mg PO DAILY 04/13/23 07/11/24 History cholecalciferol (vitamin D3) 250 250 mcg PO DAILY 07/27/23 07/11/24 History mcg (10,000 unit) capsule multivitamin 1 tablet PO DAILY 07/27/23 07/11/24 History clopidogrel 75 mg tablet 75 mg PO DAILY 11/23/23 07/11/24 History doxycycline hyclate 100 mg tablet 100 mg PO BID #20 tabs 11/23/23 07/11/24 Rx mometasone-formoterol HFA 100 2 puff inhalation Q12H 11/23/23 07/11/24 History mcg-5 mcg/actuation aerosol inhaler (Dulera) budesonide 6 mg capsule,extended 6 mg PO DAILY 01/07/24 07/11/24 History release cholecalciferol (vitamin D3) 25 25 mcg PO DAILY 07/11/24 07/11/24 History mcg (1,000 unit) capsule hydrochlorothiazide 12.5 mg capsule 25 mg PO DAILY 07/11/24 07/11/24 History lisinopril 10 mg tablet 10 mg PO DAILY 07/11/24 07/11/24 History Patient hx anesthesia problems: none Family hx anesthesia problems: none Results Review: All pre-operative results and documents have been reviewed as part of the pre-operative evaluation. [facility] Past Medical History Medical History (Updated 07/19/24 @ 06:55 by Eddie Campa DO) MVP (mitral valve prolapse) said she was having spells and then was put on blood thinners because of her MVP and now she doesn't have these spells Hypothyroidism Hyperlipidemia Hypertension Asthma Surgical History Surgical History (Updated 07/18/24 @ 15:34 by Eddie Campa DO) History of appendectomy Previous back surgery Family History Family History Mother Diabetes mellitus Hypertension Heart problem Thyroid disorder Social History Social History Smoking packs per day: 2 Smoking cigarettes per day: 40.0 Years smoked: 40 Smoking pack-years: 80.00 Smoking status: Former smoker Tobacco type: cigarettes Second hand tobacco smoke exposure: Yes Smoking end date: 06/29/99 Alcohol intake: never Alcohol use details: Rarely Substance use: never Substance use type: does not use Do You Feel Safe in your Home?: Yes Lack of Transportation: No Lack of Food: Never True Current Housing: I Have Housing Concerned About Future Housing: No Difficulty Paying Gas/Electric Bills: No Difficulty Paying for Meds: No Currently Unemployed: No Education: High School Diploma/GED Difficulty w/ Childcare or Family Care: No Living arrangements: with family Additional living arrangements comments: LIVES WITH DISABLED SPOUSE Spiritual care concerns: No Anes - Eval Final PreProcedure Day of Procedure 07/18/24 15:34 Patient weight: overweight Heart: regular rate and rhythm Lungs: clear to auscultation Airway: Mallampati scale class 1 Neurological: alert and oriented Last oral intake: >/= 8 hours ASA classification: III Emergent: no Anesthetic plan: proceed Anesthesia type and monitoring: general ETT and standard monitoring Results Review: All pre-operative results and documents have been reviewed as part of the pre-operative evaluation. Informed Consent: The patient's anesthetic plan and its attendant risks and benefits were discussed with the patient/family/POA. Questions were solicited and answers provided to the satisfaction of the patient/family/POA.
[2024-07-19] VITALS (13 sets, daily range): BP systolic 102–142; BP diastolic 59–86; PULSE 63–82; RESP 12–18; TEMP 36–36.9; O2SAT 95–100
--- NOTE | ~2024-07-19 | XR_ITS ---
XR fluoroscopy no charge Indication: Left SI joint fusion TECHNIQUE: Fluoroscopy used during Left SI joint fusion performed by [Hao Silvestre MD] on 07/19/2024. 1 minute 50 seconds of fluoroscopy with 3 fluoroscopic images captured. FINDINGS: Correlate with procedure note. IMPRESSION: Fluoroscopy used during Left SI joint fusion. Reviewed, dictated and finalized at location A. D GAUGER
[2024-07-19] MEDS: LACTATED RINGERS 1,000 ML 30 ML IV CONT ×2 (06:30→09:24)
--- NOTE | 2024-07-19 07:35 | PM.IMHP ---
H&P: HPI History of Present Illness Date/Time: 07/19/24 07:35 Chief Complaint: Left SI joint pain Narrative: Yaima is a 74-year-old female with left sacroiliac joint pain. A diagnostic injection of the left sacroiliac joint resulted in 9 days of good relief. This was done without steroids she is allergic to it. She continues to have severe discomfort in a rebound fashion in the left sacroiliac area. This is very limiting and distracting for her and severe at times. She is not having bowel or bladder difficulty or other constitutional problems. She does not have specific muscle group weakness or dermatomal numbness. She does not have any bowel or bladder difficulty or other constitutional problems. She does not have specific muscle group weakness or dermatomal numbness. Review of Systems Review of Systems: Patient denies shortness of breath, cough, fever, chills, nausea, vomiting, weight loss, weight gain, chest pain, dysuria. She has left sacroiliac joint pain as above. Review of systems is otherwise negative on 12 systems except as noted elsewhere. [facility] Past Medical History Medical History (Updated 07/19/24 @ 06:55 by Eddie Campa DO) MVP (mitral valve prolapse) said she was having spells and then was put on blood thinners because of her MVP and now she doesn't have these spells Hypothyroidism Hyperlipidemia Hypertension Asthma Surgical History Surgical History (Updated 07/18/24 @ 15:34 by Eddie Campa DO) History of appendectomy Previous back surgery Family History Family History Mother Diabetes mellitus Hypertension Heart problem Thyroid disorder Social History Social History Smoking packs per day: 2 Smoking cigarettes per day: 40.0 Years smoked: 40 Smoking pack-years: 80.00 Smoking status: Former smoker Tobacco type: cigarettes Second hand tobacco smoke exposure: Yes Smoking end date: 06/29/99 Alcohol intake: never Alcohol use details: Rarely Substance use: never Substance use type: does not use Do You Feel Safe in your Home?: Yes Lack of Transportation: No Lack of Food: Never True Current Housing: I Have Housing Concerned About Future Housing: No Difficulty Paying Gas/Electric Bills: No Difficulty Paying for Meds: No Currently Unemployed: No Education: High School Diploma/GED Difficulty w/ Childcare or Family Care: No Living arrangements: with family Additional living arrangements comments: LIVES WITH DISABLED SPOUSE Spiritual care concerns: No Meds Home Medications and Allergies Home Medications ?Medication ?Instructions ?Recorded ?Confirmed ?Type albuterol sulfate 90 mcg/actuation 1 inh inhalation Q4-6H PRN Wheezing 04/13/23 07/11/24 History breath activated powder inhaler calcium carbonate (Calcium 600) 600 mg PO DAILY 04/13/23 07/11/24 History cetirizine 10 mg tablet 10 mg PO DAILY PRN Congestion 04/13/23 07/11/24 History gabapentin 300 mg capsule 300 mg PO Q12H 04/13/23 07/11/24 History hydroxyzine HCl 25 mg tablet 25 mg PO QID PRN Anxiety 04/13/23 07/11/24 History levothyroxine 50 mcg capsule 50 mcg PO DAILY 04/13/23 07/11/24 History meclizine 25 mg tablet 25 mg PO TID PRN Dizziness Or 04/13/23 07/11/24 History Vertigo meloxicam 15 mg tablet 15 mg PO DAILY 04/13/23 07/11/24 History pantoprazole 40 mg tablet,delayed 40 mg PO QAM 04/13/23 07/11/24 History release simvastatin 40 mg tablet 40 mg PO DAILY 04/13/23 07/11/24 History cholecalciferol (vitamin D3) 250 250 mcg PO DAILY 07/27/23 07/11/24 History mcg (10,000 unit) capsule multivitamin 1 tablet PO DAILY 07/27/23 07/11/24 History clopidogrel 75 mg tablet 75 mg PO DAILY 11/23/23 07/11/24 History doxycycline hyclate 100 mg tablet 100 mg PO BID #20 tabs 11/23/23 07/11/24 Rx mometasone-formoterol HFA 100 2 puff inhalation Q12H 11/23/23 07/11/24 History mcg-5 mcg/actuation aerosol inhaler (Dulera) budesonide 6 mg capsule,extended 6 mg PO DAILY 01/07/24 07/11/24 History release cholecalciferol (vitamin D3) 25 25 mcg PO DAILY 07/11/24 07/11/24 History mcg (1,000 unit) capsule hydrochlorothiazide 12.5 mg capsule 25 mg PO DAILY 07/11/24 07/11/24 History lisinopril 10 mg tablet 10 mg PO DAILY 07/11/24 07/11/24 History Allergies Allergy/AdvReac Type Severity Reaction Status Date / Time Fish Containing Products Allergy Severe Vomiting Verified 07/11/24 08:18 latex Allergy Severe Itching Verified 07/11/24 08:18 Penicillins Allergy Severe Hives Verified 07/11/24 08:18 codeine Allergy Mild Hives AND Verified 07/11/24 08:18 VOMITING strawberry Allergy Mild Hives Verified 07/11/24 08:18 hydrocodone (From Vicodin) AdvReac Severe Vomiting Verified 07/11/24 08:18 meperidine (From Demerol) AdvReac Severe Vomiting Verified 07/11/24 08:18 tetanus and diphtheria AdvReac Severe Swelling Verified 07/11/24 08:18 toxoids kiwi AdvReac Mild Hives Verified 07/11/24 08:18 Sulfa (Sulfonamide AdvReac Mild Vomiting Verified 07/11/24 08:18 Antibiotics) tramadol AdvReac Mild Nausea Verified 07/11/24 08:18 Exam Narrative: Strength is normal the bilateral lower extremities Sensation is intact light touch in the lower extremities Breathing is nonlabored Regular rate and rhythm Assessment and Plan Assessment and plan (1) Sacroiliitis: Code(s): M46.1 - Sacroiliitis, not elsewhere classified Status: Acute Plan I believe that is reasonable to consider a left sacroiliac joint fusion as I do not believe that she will improve otherwise. I described to her that operation, its risks, potential benefits, the operative and postoperative course in detail and answered all her questions personally. We discussed risks including but not limited to permanent neurologic deficit secondary to nerve root injury, need for reoperation secondary to infection, bleeding, progressive pathology, malposition migration of the hardware or nonunion, need for reoperation secondary to proud hardware, failure of the procedure to relieve her pain or symptoms, persistent pain, medical complications related to anesthesia or surgery, etc.. She indicates understanding and elects to proceed with that operation.
--- NOTE | 2024-07-19 07:38 | WPDHPUPDATE1 ---
History and Physical Update Update Date/Time: 07/19/24 07:38 History and Physical has been reviewed, including an updated exam of the patient. There are NO changes in the patient's condition. Risks, benefits, and alternatives have been discussed and questions answered. Patient agrees to proceed with procedure.
[2024-07-19] MEDS: ceFAZolin 2 GM/D5W 50 ML 2 GM/50 ML BAG IVPB (07:47)
[2024-07-19] MEDS: LIDO 1%/EPINEPHRINE 1:100,000 20 ML VIAL 10 ML INFILTRATE (08:25)
--- NOTE | 2024-07-19 09:30 | W.PM.PROC2 ---
Procedure Note - Detailed Date of Procedure 07/19/24 Pre-op Diagnosis Left Sacroiliitis Post-op Diagnosis Same Procedure Performed Left SI joint fusion Surgeon Hao Silvestre MD Anesthesia General Description of Procedure The patient was brought to the operating room in the supine position, was sedated, intubated placed under general anesthesia in routine fashion. She was then turned to the prone position on gel rolls. The of operation on her left buttock was examined, marked for incision, prepped and draped in routine sterile fashion. Incision was marked over the line of the sacrum as determined by lateral fluoroscopy. This area was injected with 0.5% lidocaine with [id number] epinephrine. Intravenous antibiotics given prior to incision. Inlet outlet views were also confirmed for anatomy. Incision was made with a 10 blade scalpel. Bovie cautery was used to stop bleeding at the skin edges. K-wire was advanced until it made contact with the ilium across in the sacrum behind a lower Line. This was confirmed by lateral fluoroscopy. Using inlet and outlet views the K-wire was advanced to the was across the SI joint and confirmed to be behind the anterior margin of the sacrum and short of the foraminal line. Measurement was taken. At each location 50 mm x 11.5 mm devices were used. The K-wire was extended and sequentially a drill and tap were used while watching on outlet view fluoroscopy. This was done to confirm that the devices stopped short of the foraminal line but were flush with the ilium. The device had been coded and filled with Magnetos and autograft bone harvested locally. A 2nd K-wire was placed distal to the 1st along the sacrum using a guide tube over the 1st wire and confirmed to be in good position on lateral fluoroscopy. The guide tube was then removed and a funnel was placed over the 1st wire and the wire removed. Additional autograft and osteogenic material was placed down the final and through the device. In like fashion at the 2nd position the tissue was dilated using sequential dilators, a measurement was taken and device chosen, the K-wire extended and then drilling and tapping performed under outlet view fluoroscopy confirmed devices being short of the foraminal line and then the device was placed again using outlet view fluoroscopy. A 3rd K-wire was placed after the in dilators were removed from the 2nd position and the guide tube used to direct placement of a 3rd wire under lateral fluoroscopy. A 3rd 50 x 11.5 mm device was then placed in like fashion using the inlet and outlet views to confirm good position. Three devices were placed total. Inlet, outlet and lateral views were then taken to confirm final good position of the instrumentation which was confirmed. Wound was copiously irrigated with irrigation and then closed with 3-0 Vicryl interrupted sutures in the dermis and a running 4-0 Monocryl subcuticular stitch in the skin and dressed with Dermabond. The patient was allowed to wake up in the operating room and was taken to the recovery room in stable condition. There were no immediate complications of this operation. All counts were reported correct at the end of the case. Blood loss was 10 cc. The patient was neurologically at her baseline postoperatively.
[2024-07-19] MEDS: fentaNYL CITRATE INJ (*CRX) 100 MCG/2 ML VIAL 25 MCG IV PUSH ×6 (09:44→10:26)
[2024-07-19] MEDS: ONDANSETRON INJ 4 MG/2 ML VIAL IV PUSH (10:07)
[2024-07-19] MEDS: KCL 20 MEQ/D5/0.45% SOD CHL 1,000 ML 100 ML IV CONT ×2 (11:47→20:53)
[2024-07-19] MEDS: hydrOXYzine HCL 25 MG TABLET PO (11:48)
[2024-07-19] MEDS: CYCLOBENZAPRINE HCL 10 MG TABLET PO ×2 (11:48→20:52)
[2024-07-19] MEDS: oxyCODONE/ACETAMINOPHEN (*CRX) 10-325 MG TABLET 1 TAB PO ×2 (11:49→20:52)
--- NOTE | 2024-07-19 14:19 | ADMGEN ---
This patient, Yaima Gutierrez, was admitted to [facility] Surg Room 309-01. Patient/family oriented to hospital policies and general routines including ID bracelet, bed and alarms, visiting hours, pain management, procedures, bathroom and other care routines, personal items, smoking policy, room service/diet, and visiting hours. Information on how to activate the Rapid Response Team has been discussed. Patient/Family are encouraged to report perceived risks to care and to ask questions if they do not understand what they are told or what they should do.
[2024-07-19] MEDS: GABAPENTIN 300 MG CAPSULE PO (20:52)
[2024-07-19] MEDS: DOCUSATE SODIUM 100 MG CAPSULE PO (20:52)
[2024-07-20 02:02] VITALS: BP 95/51; PULSE 71; RESP 18; TEMP 35.9; O2SAT 96
[2024-07-20 05:55] VITALS: BP 105/69; PULSE 68; RESP 18; TEMP 36.7; O2SAT 97
[2024-07-20] MEDS: LEVOTHYROXINE SODIUM 50 MCG TABLET PO (06:10)
[2024-07-20] MEDS: oxyCODONE/ACETAMINOPHEN (*CRX) 10-325 MG TABLET 1 TAB PO ×2 (06:11→15:09)
[2024-07-20] MEDS: CYCLOBENZAPRINE HCL 10 MG TABLET PO (06:11)
[2024-07-20] MEDS: FLUTICASONE/SALMETEROL 115-21 MCG INHALER 1 PUFF 2 PUFF INHALATION (07:01)
[2024-07-20 07:05] VITALS: PULSE 70; RESP 18; O2SAT 96
[2024-07-20 09:43] VITALS: BP 103/56
[2024-07-20] MEDS: BUDESONIDE 3 MG CAP.SR.24H 6 MG PO (09:48)
[2024-07-20] MEDS: PANTOPRAZOLE 40 MG TABLET PO (09:48)
[2024-07-20] MEDS: GABAPENTIN 300 MG CAPSULE PO (09:48)
[2024-07-20] MEDS: DOCUSATE SODIUM 100 MG CAPSULE PO (09:48)
[2024-07-20] MEDS: CHOLECALCIFEROL 1,000 UNITS TABLET 1000 UNITS PO (09:48)
[2024-07-20] MEDS: MULTIVITAMINS THERAPEUTIC TAB (*BKC) 1 TABLET PO (09:48)
[2024-07-20] MEDS: SIMVASTATIN 20 MG TABLET 40 MG PO (09:48)
[2024-07-20] MEDS: oxyCODONE/ACETAMINOPHEN (*CRX) 5-325 MG TABLET 1 TABLET PO (09:57)
[2024-07-20 13:43] VITALS: BP 113/68; PULSE 60; RESP 18; TEMP 36.3; O2SAT 97
--- NOTE | 2024-07-20 14:16 | PCPTNOTE ---
On 07/20/24, the student, JUDIE Berry, provided care and completed [facility] documentation on this patient. I have reviewed the student's documentation and agree with the findings.
--- NOTE | 2024-07-20 14:38 | WPDNEUROSGPN ---
Progress Note: A&P Assessment and Plan (1) Status post fusion of sacroiliac joint: Code(s): Z98.1 - Arthrodesis status Status: Acute Plan -Discharge home today -Activity precautions and wound care reviewed at bedside -Follow up with Dr. Silvestre in clinic in 6 weeks Subjective Date/time seen: 07/20/24 14:38 Interval history: Doing overall well with tolerable pain at surgical site. Ambulating with walker. Voiding independently. Tolerating oral intake. She would like to go home today Review of Systems Review of Systems: All systems reviewed & are unremarkable except as noted in HPI and below Exam Narrative: AOx4 Full strength in lower extremities Incision somewhat erythematous with glue in place, no drainage Objective Data Vital Signs Vital Signs: Vital Signs - 24 hr 07/19/24 20:00 07/20/24 02:02 07/20/24 05:55 Temperature 96.8 F L 96.6 F L 98.1 F Pulse Rate 75 71 68 Respiratory Rate 16 18 18 Blood Pressure 108/64 95/51 L 105/69 Pulse Oximetry 98 96 97 Oxygen Delivery 07/20/24 07:05 07/20/24 07:05 07/20/24 09:40 Temperature Pulse Rate 70 70 Respiratory Rate 18 18 Blood Pressure Pulse Oximetry 96 Oxygen Delivery Room Air Room Air 07/20/24 09:43 Temperature Pulse Rate Respiratory Rate Blood Pressure 103/56 L Pulse Oximetry Oxygen Delivery Intake/Output Intake/Output: Intake & Output 07/17/24 07/18/24 07/19/24 07/20/24 23:59 23:59 23:59 23:59 Intake Total 2900 1680 Output Total 400 Balance 2500 1680 Meds/Results Medications: Active Medications Generic Name Dose Route Start Last Admin Trade Name Freq PRN Reason Stop Dose Admin Al Hydrox/Mg Hydrox/Simethicone 20 ml 07/19/24 10:43 Mag Hydrox/Al Hydrox/Simeth 30 Ml Udc PO Q4H PRN Indigestion/Heartburn Albuterol 1 puff 07/19/24 11:01 Albuterol Sulfate (*Sp) Aerosol 1 Puff INHALATION Q4-6H PRN Wheezing Bisacodyl 10 mg 07/19/24 10:43 Bisacodyl 10 Mg Suppository RECTAL DAILY PRN Constipation Budesonide 6 mg 07/20/24 09:00 07/20/24 09:48 Budesonide 3 Mg Cap.Sr.24h PO 6 mg DAILY LANG Administration Cyclobenzaprine HCl 10 mg 07/19/24 10:43 07/20/24 06:11 Cyclobenzaprine Hcl 10 Mg Tablet PO 10 mg TID PRN Administration Muscle Spasms Docusate Sodium 100 mg 07/19/24 21:00 07/20/24 09:48 Docusate Sodium 100 Mg Capsule PO 100 mg Q12HR LANG Administration Gabapentin 300 mg 07/19/24 21:00 07/20/24 09:48 Gabapentin 300 Mg Capsule PO 300 mg Q12HR LANG Administration Hydrochlorothiazide 25 mg 07/20/24 09:00 07/20/24 09:48 Hydrochlorothiazide 12.5 Mg Capsule PO Not Given DAILY LANG Hydroxyzine HCl 25 mg 07/19/24 10:43 07/19/24 11:48 Hydroxyzine Hcl 25 Mg Tablet PO 25 mg QID PRN Administration Anxiety Levothyroxine Sodium 50 mcg 07/20/24 06:30 07/20/24 06:10 Levothyroxine Sodium 50 Mcg Tablet PO 50 mcg DAILY@0630 LANG Administration Lisinopril 10 mg 07/20/24 09:00 07/20/24 09:49 Lisinopril 10 Mg Tablet PO Not Given DAILY LANG Loratadine 10 mg 07/19/24 11:00 Loratadine 10 Mg Tablet PO DAILY PRN Congestion Meclizine HCl 25 mg 07/19/24 10:43 Meclizine Hcl 25 Mg Tablet PO TID PRN Dizziness Or Vertigo Multivitamins Therapeutic 1 tablet 07/20/24 09:00 07/20/24 09:48 Multivitamins Therapeutic Tab (*Bkc) PO 1 tablet DAILY LANG Administration Ondansetron HCl 4 mg 07/19/24 10:43 Ondansetron Inj 4 Mg/2 Ml Vial IV PUSH Q8H PRN Nausea And Vomiting Oxycodone/Acetaminophen 1 tablet 07/19/24 09:40 07/20/24 09:57 Oxycodone/Acetaminophen (*Crx) 5-325 Mg Tablet PO 1 tablet Q4H PRN Administration Pain Rated 4-6 Oxycodone/Acetaminophen 1 tab 07/19/24 09:40 07/20/24 06:11 Oxycodone/Acetaminophen (*Crx) 10-325 Mg Tablet PO 1 tab Q4H PRN Administration Pain Rated 7-10 Pantoprazole Sodium 40 mg 07/20/24 09:00 07/20/24 09:48 Pantoprazole 40 Mg Tablet PO 40 mg QAM LANG Administration Fluticasone/Salmeterol 2 puff 07/19/24 20:00 07/20/24 07:01 Fluticasone/Salmeterol 115-21 Mcg Inhaler 1 Puff INHALATION 2 puff Q12HRT LANG Administration Senna/Docusate Sodium 1 tab 07/19/24 10:43 Senna/Docusate Sodium Tablet PO HS PRN Constipation Simvastatin 40 mg 07/20/24 09:00 07/20/24 09:48 Simvastatin 20 Mg Tablet PO 40 mg DAILY LANG Administration Vitamin D 1,000 units 07/20/24 09:00 07/20/24 09:48 Cholecalciferol 1,000 Units Tablet PO 1,000 units DAILY LANG Administration Radiology Results: ITS Impressions Fluoroscopy 07/19/24 10:37 IMPRESSION: Fluoroscopy used during Left SI joint fusion.
--- OUTSIDE RECORDS SUMMARY | 2024-07-21 15:12 | XMS_ITS | Encounter Summary ---
Author Organization [facility] Address [address] [place] [address] Phone Care Team Providers Care Engineering Specialist Technician Name Role Phone NaidaalisBlair guerrero MD Unavailable Darwin Marti MD Primary Care Provider + [phone] Hao Silvestre MD Unavailable [phone] Carlos Dailey MD Unavailable Saida Mckeon APRN, SUPERVISOR BINDERY Unavailable Jessenia Ward APRN, PICKLING DRUM OPERATOR Unavailable + [phone] Dominic Wang MD Unavailable [phone] Butch Muñiz MD Unavailable [phone] Reason for Visit * Reason Onset Date Comments Cough 02/23/2024 Chest Congestion 02/23/2024 Encounter Details Date Type Department Care Team (Late st Contact Info) Description 02/23/2024 Nurse Triage [facility] [address] [place] [id number] Darwin Marti MD [address] [place] [address] Cough; Chest Congestion Social History Tobacco Use Types Packs/Day Years Used Date Smoking Tobacco: Former Cigarettes 2 41.8 1 964 - 04/09/2005 Smokeless Tobacco: Never Alcohol Use Standard Drinks/Week Comments No 0 (1 standard drink = 0.6 oz pur e alcohol) [facility] Utilities Answer Date Recorded In the past 12 months has th e electric, gas, oil, or water company threatened to shut off services in your home? No 09/26/2023 Social Connection and Isolat ion Panel [NHANES] Answer Date Recorded In a typical week, how many times do you talk on the phone with family, friends, or neighbors? More than three times a week 09/26/2023 How often do you get togethe r with friends or relatives? More than three times a week 09/26/2023 How often do you attend chur ch or methodist services? Never 09/26/2023 Do you belong to any clubs o r organizations such as zoroastrianism groups, unions, fraternal or athletic groups, or school groups? No 09/26/2023 How often do you attend meet ings of the clubs or organizations you belong to? Never 09/26/2023 Are you , , di vorced, , never , or living with a partner? 09/26/2023 AUDIT-C Answer Date Recorded Q1: How often do you have a drink containing alc ohol? Monthly or less 09/26/2023 Q2: How many drinks containi ng alcohol do you have on a typical day when you are drinking? 1 or 2 09/26/2023 Q3: How often do you have si x or more drinks on one occasion? Never 09/26/2023 Overall Financial Resource Strain (CARDIA) Answe r Date Recorded How hard is it for you to pa y for the very basics like food, housing, medical care, and heating? Patient declined 09/26/2023 PHQ-2 Answer Date Recorded Total Score - Questions 1-9 0 07/2023 [facility] - Occupational Stress Questionnaire Answer Date Recorded Do you feel stress - tense, restless, nervous, or anxious, or unable to sleep at night because your mind is troubled all the time - these days? Only a little 09/26/2023 Exercise Vital Sign Answer Date Recorde d On average, how many days pe r week do you engage in moderate to strenuous exercise (like a brisk walk)? 3 days 09/26/2023 On average, how many minutes do you engage in exercise at this level? 30 min 09/26/2023 Hunger Vital Sign Answer Date Recorded Within the past 12 months, y ou worried that your food would run out before you got the money to buy more. Never true 09/26/19 24 Within the past 12 months, t he food you bought just didn't last and you didn't have money to get more. Never true 09/26/2023 PRAPARE - Transportation Answer Date Re corded In the past 12 months, has l ack of transportation kept you from medical appointments or from getting medications? No 08/29 In the past 12 months, has l ack of transportation kept you from meetings, work, or from getting things needed for daily living? No 09/26/2023 Housing Stability Vital Sign Answer Matt e Recorded In the last 12 months, was t here a time when you were not able to pay the mortgage or rent on time? No 09/26/2023 In the last 12 months, how many places have you lived? 1 09/26/2023 In the last 12 months, was t here a time when you did not have a steady place to sleep or slept in a long term (including now)? 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 Symptoms started on 02/16. Patient has history of asthma. ASSESSMENT: Symptoms: Cough, chest congestion - sore throat from coughing Just heavy chest. , paitent state sthat it feels like breathing through a raspy pipe. Patient states she has shortness of breath now even when not coughing. Denies severe difficulty breathing, hives, denies feeling like an asthma attack right now. Pain (0-10): denies pain Temp (route, time): denies fever Treatment with response: Dulera and Albuterol inhaler four times a day as needed with no relief. RECOMMENDATION: Patient triages to go to ED now. Patient refused. Patient/caller refuses disposition of: GO to ED now Reiterated the importance of following recommendation as symptoms could indicate a serious or life-threatening situation Patient response: Patient requesting appointment in office as opposed to emergency department. Advised that appointment may be cancelled by provider and provider may direct patient to ED for evaluation. Caller aware and verbalized understanding and agreement with plan. Appointment scheduled. Provider to review and advise on change in plan of care due to ED refusal. All Patient Appointments Provider Department Dept Phone 02/23/2024 9:15 AM Butch Muñiz [facility] - Neurology - [place] [phone] 02/23/2024 11:00 AM Darwin Marti [facility] - Primary Care - [place] [phone] Patient states that her medications and allergies has no changes since it was reviewed on 02/08. See care advice and disposition for guideline. First positive answer recorded, all responses to prior questions were negative. If symptoms increase, change or if new symptoms develop, call your PCP or call back. Recommendation based on caller information and is not a diagnosis. Verified and reviewed all triage information with caller. Teach-back method utilized. Reason for Disposition MODERATE difficulty breathing (e.g., speaks in phrases, SOB even at rest, pulse 100-120) and still present when not coughing Protocols used: Cough-A-OH * Telephone Encounter - Nettie Malone CMA - 02/23/2024 8:08 AM CDT Symptoms: Cough, Chest Congestion, Sore Throat, Outcome: Warm transfer to an emergent RN NOW! Reason: Trouble breathing through the mouth The caller accepted this outcome documented in this encounter Plan of Treatment Upcoming Encounters Date Type Department Care Team (Late st Contact Info) Description 08/11/2024 10:00 AM NEGATIVE RESTORER Office Visit [facility] - Primary Care - [place] [address] [place] [address] Darwin Marti MD [address] [place] [address] 02/20/2025 9:30 AM CDT Office Visit [facility] - Neurology - [place] [address] [place] [phone] Jessenia Ward, CHILDCARE ATTENDANT, PICKLING DRUM OPERATOR [address] [place] [address] documented as of this encounter Visit Diagnoses Not on filedocumented in this encounter Additional Health Concerns Infection Onset Date Last Indicated Resolved Time COVID - 19 02/23/2024 02/23/2024 02/23/2024 11:2 8 AM CDT Respiratory Rule-Out 02/23/2024 02/23/2024 024 11:30 AM CDT Assessment Noted Time PHQ-9 Depression Total Score: 0 07/31/19 24 12:53 PM NEGATIVE RESTORER documented as of this encounter Care Teams Engineering Specialist Technician Relationship Specialty Start Date End Date Darwin Marti MD [address] [place] [address] PCP - General Internal Medicine 07/31/23 Blair Paris MD [address] [place] [address], [address] [address] Consulting Physician Orthopaedic Sports Medicine 07/31/23 Hao Silvestre MD [address] [place] [address] Consulting Physician Neurological Surgery 07/31/23 Carlos Dailey MD [address] [address] Consulting Physician Colon and Rectal Surgery 10/26/23 Saida Mckeon APRN, SUPERVISOR BINDERY [address] [place] [address] Nurse Practitioner Gastroenterology 10/26/23 Jessenia Ward APRN, PICKLING DRUM OPERATOR [address] [place] [address] Nurse Practitioner Advanced Practice Nurse 11/17/23 Dominic Wang MD [place], [place] Consulting Physician Pain Medicine-Pain Management 02/09/24 Butch Muñiz MD [address] [place] [phone] Consulting Physician Neurology 02/23/24 documented as of this encounter
--- OUTSIDE RECORDS SUMMARY | 2024-07-21 15:12 | XMS_ITS | Patient Health Summary ---
Author Organization [facility] Address [address] [place] [address] Care Team Providers Care Data Communications Engineer Name Role Phone Darwin Marti MD Primary Care Provider [phone] Note from [facility],non-owned Affiliates and Associated Physician Practices is amultiple site organization consisting of ambulatory clinics and hospital sitesin [place], [place], [place] and [place]. This disclosure is being madepursuant to the Care Everywhere program and may not contain all information available regarding this patient. Last updated 18.[facility] [email or web address] Allergies * Acetaminophen(Vomiting) * Aspirin(Other) * Celecoxib(Unknown) * Cephalosporins(Rash) -Medium Criticality * Codeine(Palpitations,Unknown) * Diptheria-Tetanus Toxoids-Dt(Angioedema) -High Criticality * Fish(Other) * Fish Allergy(Unknown) * Hydrocodone(Vomiting) * Hydrocodone-Acetaminophen(Vomiting) * Ibuprofen(Other) -Medium Criticality * Kiwi Extract(Palpitations,Unknown) * Latex(Itching,Other) * Meperidine(Urticaria) -Medium Criticality * Mercury(Unknown) * Morphine(Unknown) * Oxycodone(Vomiting) * Penicillins(Other,Unknown) * [place](Unknown) * Sulfa Drugs(Other) * Tetanus Antitoxin(Swelling) * Tetanus Toxoid(Unknown) Medications * Be aware that medications may not be up to date on this document. Alwaysverify current medications with the patient. * Vitamins-Lipotropics (MULTIPLE VITAMIN) capsule Take 1 tablet by mouth once daily * albuterol HFA (PROVENTIL;VENTOLIN;PROAIR) 108 (90 Base) MCG/ACT inhaler (Started 05/08/2009) Inhale 1 puff by mouth * ascorbic acid (VITAMIN C) 500 MG tablet(Started 11/19/2017) Take 1 tablet by mouth 2 times daily until finished * clopidogrel (PLAVIX) 75 MG tablet(Started 11/20/2019) Take 75 mg by mouth once daily * cyclobenzaprine (FLEXERIL) 10 MG tablet(Started 07/25/2015) 10 mg * gabapentin (NEURONTIN) 300 MG capsule(Started 09/09/2017) TAKE 1 CAPSULE BY MOUTH THREE TIMES DAILY FOR 90 DAYS * hydroCHLOROthiazide (HYDRODIURIL) 25 MG tablet(Started 08/10/2017) Take 1 tablet by mouth once daily * levothyroxine (SYNTHROID) 50 MCG tablet(Started 12/14/2017) Take 1 tablet by mouth once daily * meclizine (ANTIVERT) 25 MG tablet(Started 11/03/2017) [The details of the medication are not available because there are pending changes by a home healthclinician.] * metoprolol tartrate (LOPRESSOR) 25 MG tablet(Started 11/03/2017) TAKE ONE TABLET BY MOUTH TWICE DAILY * ondansetron, disintegrating, (ZOFRAN ODT) 4 MG tablet(Started 12/01/2017) Take 4 mg by mouth * pantoprazole EC (PROTONIX) 40 MG tablet(Started 02/19/2015) Take 1 tablet by mouth once daily * simvastatin (ZOCOR) 40 MG tablet(Started 02/19/2015) Take 1 tablet by mouth once daily * cetirizine (ZYRTEC) 10 MG tablet(Started 01/28/2021) Take 10 mg by mouth once daily * DULERA 100-5 MCG/ACT inhaler(Started 03/07/2021) Inhale 2 puffs by mouth 2 times daily * meloxicam (MOBIC) 15 MG tablet(Started 01/03/2021) Take 15 mg by mouth once daily * vitamin D3 (CHOLECALCIFEROL) (25 MCG) 1000 UNIT capsule(Started 11/23/2019) Take 1,000 Units by mouth once daily * traMADol (ULTRAM) 50 MG tablet(Started 10/19/2021) Take 1 (one) tablet by mouth every 6 hours as needed * docusate sodium (COLACE) 100 MG capsule(Started 10/20/2021) Take 1 (one) capsule by mouth once daily Active Problems Problem Noted Date Diagnosed Date Blurred vision 10/08/2021 MVP (mitral valve prolapse) 10/08/2021 Anemia 10/08/2021 Shortness of breath 10/08/2021 GERD (gastroesophageal reflux disease) HLD (hyperlipidemia) 03/28/2021 Multinodular goiter 03/28/2021 Osteopenia 03/28/2021 Prediabetes 03/28/2021 Spinal stenosis, lumbar vanessa on, with neurogenic claudication 03/28/2021 Urge incontinence 03/28/2021 Orbital lesion 03/07/2021 Recurrent syncope 01/12/2020 Vestibular migraine 11/18/2019 Allergic rhinitis 07/14/2019 Hypothyroidism (acquired) 03/18/2016 Pain in both lower extremities 03/18/2016 Neuropathy 08/21/2015 Vitamin D deficiency 08/21/2015 Asthma 04/02/2015 Backache 04/02/2015 Arthritis 02/19/2015 Former smoker 02/19/2015 Hypertension 02/19/2015 Knee pain 02/19/2015 Mitral valve prolapse 02/19/2015 Immunizations * INFLUENZA VACCINE, TRIV. (AFLURIA, FLUZONE TRIVALENT; 6MO+) (IIV3)(Given 05/04/2019, 06/15/2015, 03/29/2014) * INFLUENZA VACCINE, HIGH-DOSE, QUADR. (FLUZONE HIGH-DOSE QUADRIVALENT; 65Y+), 0.7 ML (HD-IIV4)(Given 03/18/2016) * INFLUENZA VACCINE, QUADR. (FLUZONE; FLULAVAL; FLUARIX; AFLURIA QUADRIVALENT; 6MO+), 0.5 ML (IIV4)(Given 03/07/2021, 07/12/2020, 07/15/2018, 05/26/2017) * PNEUMOCOCCAL PPSV23(Given 01/27/2013) * Pneumococcal Pcv13 Conj(Given 09/23/2016) * Td (Adult), 2 Lf Tetanus Toxoid, Adsorbed, Pf(Given 06/29/1998) * ZOSTER VACCINE, LIVE(Given 01/27/2013) Social History Tobacco Use Types Packs/Day Years Used Date Smoking Tobacco: Former Cigarettes 2 42 1 963 - 2005 Smokeless Tobacco: Never Alcohol Use Standard Drinks/Week Comments Not Currently 0 (1 standard drink = 0.6 oz pur e alcohol) Rarely AUDIT-C Answer Date Recorded Q1: How often do you have a drink containing alcohol? Monthly or less 10/18/2021 Q2: How many drinks containi ng alcohol do you have on a typical day when you are drinking? Patient does not drink Q3: How often do you have si x or more drinks on one occasion? Never 10/18/2021 Hunger Vital Sign Answer Date Recorded Within the past 12 months, y ou worried that your food would run out before you got the money to buy more. Never true 10/19/19 Within the past 12 months, t he food you bought just didn't last and you didn't have money to get more. Never true 10/18/2021 Sex and Gender Information Value Date Recorded Sex Assigned at Not on file Gender Identity Not on file Sexual Orientation Not on file Last Filed Vital Signs Vital Sign Reading Time Taken Comments Blood Pressure 131/80 10/19/2021 8:17 AM CDT Pulse 61 10/19/2021 8:17 AM CDT Temperature 36.6 ??C (97.8 ??F) 10/19/2021 8:17 AM CD T Respiratory Rate 18 10/19/2021 8:17 AM CDT Oxygen Saturation 92% 10/19/2021 8:17 AM CDT Inhaled Oxygen Concentration - - Weight 86.9 kg (191 lb 8 oz) 10/18/2021 6:48 AM CDT Height 162.6 cm (5' 4 ) 10/18/2021 6:48 AM CDT Body Mass Index 32.87 10/18/2021 6:48 AM CDT Procedures * CARDIAC EKG ORDER(Performed 10/26/2021) * PATHOLOGY TISSUE(Performed 10/18/2021) Performed for Mass of orbit * ORBITOTOMY(Performed 10/18/2021) Performed for Mass of orbit * ENDOTRACHEAL TUBE NOTE(Performed 10/18/2021) * BLOOD TYPE VERIFICATION(Performed 10/18/2021) * TYPE + SCREEN PANEL(Performed 10/18/2021) Performed for Preop examination * CBC W/O DIFFERENTIAL(Performed 10/08/2021) Performed for Preop examination * BASIC METABOLIC PANEL (CALCIUM TOTAL)(Performed 10/08/2021) Performed for Preop examination * EKG 12-LEAD(Performed 10/08/2021) Performed for Preop examination * MRI ORBITS OR FACE WWO CONTRAST(Performed 06/17/2021) Performed for Orbital mass * CREATININE - POCT INTERFACED(Performed 06/17/2021) * OPH VISUAL FIELD TEST SLU(Performed 03/28/2021) Performed for Orbital mass * OPH VISUAL FIELD TEST SLU(Performed 09/25/2020) Performed for Visual disturbance * OPH VISUAL FIELD TEST SLU(Performed 02/08/2020) Performed for Blurred vision, left eye Results * CARDIAC EKG ORDER (10/26/2021 8:51 AM CDT) Narrative 10/26/2021 8:51 AM CDT Ordered by an unspecified provider. Scanned Document CARDIAC SERVICES ORD ERABLES * PATHOLOGY TISSUE (10/18/2021 10:20 AM CDT) Case Report Surgical Pathology Report ? Case: [id number] ? Authorizing Provider: ??Brielle Howe MD ?? Collected: ? 10/18/2021 10:20 AM ? Ordering Location: ? [facility] ?Received: ?10/18/2021 01:49 PM ? Pathologist: ? Trace Lew MD ? Specimen: ?Soft Tissue, Other, Right Vascular Ruptured Nodule ? 10/21/2021 3:00 PM [facility] Final Diagnosis Soft tissue, right vascular ruptured nodule, excision (A): - Benign fibrovascular tissue - No evidence of malignancy 10/21/2021 3:00 PM [facility] Microscopic Description and Comment Histologic sections fibroadipose tissue with a slightly cellular but collapsed anastomosing channels that are favored to represent vascular spaces. 10/21/2021 3:00 PM [facility] Clinical History The patient is a 71-year-old woman with a right orbital lesion, who underwent Right orbitotomy with excisional biopsy of lesion. 10/21/2021 3:00 PM [facility] Gross Description The requisition and specimen(s) are identified with the patient's name Yaima Gutierrez. Received in formalin, specimen A , are 2 pink-tena tissues, 0.3 x 0.1 x 0.1 cm and 0.8 x 0.3 x 0.1 cm, submitted in toto in cassette A1. DF 10/21/2021 3:00 PM [facility] Disclaimer The performance characteristics of all immunohistochemical and indirect immunofluorescence stains (if any) cited in this report were determined by the Histopathology Laboratory of [facility]. Some of these tests were developed by our own laboratory and have not been cleared or approved by the US Food and Drug Administration. The FDA does not require this test to go through premarket FDA review. These tests are used for clinical purposes. They should not be regarded as investigational or for research. This laboratory is certified under the Clinical Laboratory Improvement Amendments (CLIA) as qualified to perform high complexity clinical laboratory testing. This case has been personally reviewed and interpreted by the attending (teaching) pathologist. 10/21/2021 3:00 PM [facility] Embedded Images 10/21/2021 3:00 PM [facility] Biopsy, Excision (Soft Tissue, Other) 10/18/2021 10:20 AM CDT 10/18/2021 1:49 PM CDT Comment:Pre-op diagnosis: Mass right orbit near inferior rectus Brielle Howe MD LAB - PATHOLOGY/C YTOLOGY ORDERABLES [facility] [address] [place] [address], [facility] [phone] * ETT LINE PERFORMABLE (10/18/2021 7:55 AM CDT) Narrative Gabriela Snyder DO - 10/18/2021 7:55 AM CDT Gabriela Snyder DO ? 10/18/2021 ??7:55 AM Endotracheal Tube Placement: ? Patient Location: OR. Intubation Event Date/Time: ??10/18/2021 7:49 AM Procedure: intubation ([id number]). Procedure Section: ?? Sedation: under general anesthesia. Indications for Airway Management: ??anesthesia Induction: standard IV Patient Position: ??sniffing and supine Mask Ventilation: easy. Blade Type: Nestor Blade Size: 3 Laryngoscopy View: grade 1 (full cords) Intubation Adjuncts: stylet Tube: endotracheal tube Placement: oral Tube type: cuff - inflated Tube Size (MM): 7 Depth of Insertion (CM): 21 Measured From: lips Cuff Inflated With: air Number of Attempts: 1. Placement Verified By: direct visualization, bilateral breath sounds, chest auscultation and CO2 monitor Tube secured with: ??adhesive tape. Difficult Airway? ??No. Procedure Start Time: 10/18/2021 7:49 AM. Staff Section ? Anesthesia Provider: Gabriela Snyder DO, Performed the procedure Abiodun Pate MD GENERAL ANESTHESIA O RDERABLES * BLOOD TYPE VERIFICATION (10/18/2021 7:00 AM CDT) ABO Rh O NEG 10/18/2021 7:3 7 AM CDT [facility] Blood Bank BLOOD SPECIMEN / Unknown Lab Venipuncture / Unknown 10/18/2021 7:00 AM CDT 10/18/2021 7:06 AM CDT Brielle Howe MD LAB - BLOOD BANK ORDERABLES [facility] [address] [place] [address], [facility] [phone] * TYPE + SCREEN PANEL (10/18/2021 6:38 AM CDT) Antibody Screen NEG 7:37 AM CDT [facility] ABO Rh O NEG 10/18/2021 7:37 AM CDT [facility] Blood Bank BLOOD SPECIMEN / Unknown Venipuncture / Unknown 10/18/2021 6:38 AM CDT 10/18/2021 6:50 AM CDT Brielle Howe MD LAB - BLOOD BANK ORDERABLES Performing Organization Address City/[facility]/ZIP Co de Phone Number [facility] [address] [place] [address], [facility] [phone] * CBC W/O DIFFERENTIAL (10/08/2021 1:57 PM CDT) WBC 6.3 3.5 - 10.5 10? 3 /uL 10/08/2021 2:21 PM CDT [facility] RBC 4.50 3.80 - 5.20 10? 6 /uL 10/08/2021 2:21 PM CDT [facility] Hemoglobin 13.6 12.0 - 15.6 g/dL 10/08/2021 2:21 PM T [facility] Hematocrit 42.3 35.0 - 45.0 % 10/08/2021 2:21 PM T [facility] MCV 94.0 80.7 - 98.3 fL 10/08/2021 2:21 PM CDT [facility] MCH 30.2 26.7 - 34.0 pg 10/08/2021 2:21 PM CDT [facility] MCHC 32.2 30.8 - 35.9 g/dL 10/08/2021 2:21 PM T [facility] Platelet Count 208 150 - 400 10? 3 /uL 10/08/2021 2:21 PM CDT [facility] RDW-SD 48.2 36.0 - 50.0 fL 10/08/2021 2:21 PM [facility] RDW-CV 13.9 11.2 - 14.8 % 10/08/2021 2:21 PM T [facility] MPV 11.9 9.4 - 12.9 fL 10/08/2021 2:21 PM T [facility] nRBC Absolute 0.00 0 10? 3 /uL 10/08/2021 2:21 PM T [facility] nRBC Auto 0.0 0 /100 WBC 10/08/2021 2:21 PM [facility] Blood BLOOD SPECIMEN / Unknown Lab Venipuncture / Unknown 10/08/2021 1:57 PM CDT 10/08/2021 2:09 PM CDT Brielle Howe MD LAB - HEMATOLOGY ORDERABLES Performing Organization Address City/State/[facility] Co de Phone Number [facility] [address] [place] [address], [facility] [phone] * (ABNORMAL) BASIC METABOLIC PANEL (CALCIUM TOTAL) (10/08/2021 1:57 PM CDT) BUN 22 7 - 26 mg/dL 10/08/2021 2:46 PM [facility] Creatinine 0.80 0.56 - 0.96 mg/dL 10/08/2021 2:46 PM [facility] Sodium 140 136 - 145 mmol/L 10/08/2021 2:46 PM [facility] Potassium 4.8(H) 3.5 - 4.5 mmol/L 10/08/2021 2:46 PM [facility] Comment:Hemolysis detected i n this specimen. Hemolysis may cause false elevations in potassium leading to pseudohyperkalemia or masked hypokalemia. Recommend repeat testing if clinically indicated. Chloride 103 98 - 107 mmol/L 10/08/2021 2:46 PM CDT [facility] CO2 23 22 - 29 mmol/L 10/08/2021 2:46 PM [facility] Glucose 90 70 - 115 mg/dL 10/08/2021 2:46 PM CDT [facility] Calcium 9.8 8.4 - 10.2 mg/dL 10/08/2021 2:46 PM [facility] Anion Gap 19(H) 8 - 18 10/08/2021 2:46 PM T [facility] BUN/Creatinine Ratio 28(H) 7 - 23 09/27 2:46 PM T [facility] Osmolality Calculated 293 270 - 300 mOsm/kg 10/08/2021 2:46 PM T [facility] eGFR by CKD-EPI 78(L) >=90 mL/min/1. 73 m2 10/08/2021 2:46 PM T [facility] Blood BLOOD SPECIMEN / Unknown Lab Venipuncture / Unknown 10/08/2021 1:57 PM CDT 10/08/2021 2:09 PM CDT Brielle Howe MD LAB - CHEMISTRY O RDERABLES Performing Organization Address City/[facility] Co de Phone Number [facility] [address] [place] [address], [facility] [phone] * EKG 12-LEAD (10/08/2021 1:15 PM CDT) Ventricular Rate 69 BPM SL MUSE Atrial Rate 69 BPM [facility] P-R Interval 130 ms [facility] QRS Duration ms 80 ms [facility] Q-T Interval ms 432 ms [facility] QTC Calculation (Bezet) 462 ms [facility] Calculated P [place] 58 degrees [facility] Calculated R [place] 10 degrees [facility] Calculated T [place] 55 degrees [facility] Interpretation EKG NORMAL SINUS RHYTHM POSSIBLE LEFT ATRIAL ENLARGEMENT BORDERLINE ECG NO PREVIOUS ECGS AVAILABLE Confirmed by Petros Morejon ([id number]) on 10/10/2021 11:35:55 AM [facility] 10/08/2021 1:15 PM CDT 10/10/2021 11:35 AM CDT Brielle Howe MD ECG ORDERABLES [facility] * MRI ORBITS OR FACE WWO CONTRAST (06/17/2021 12:56 PM [employer]) Anatomical Region Laterality Modality Head Magnetic Resonan ce 06/17/2021 1:12 PM [employer] Impressions 06/17/2021 1:28 PM [employer] IMPRESSION: 1.0.7 x 0.7 cm avidly enhancing lesion in the inferior right orbit abutting the inferior rectus muscle posteriorly. This may represent a vascular malformation/venous varix as mentioned in the prior reports. Direct comparison with prior images is recommended for assessment of temporal evolution. Alternatively, the imaging appearance on this single study may be from a mass lesion. This report was electronically signed by JENY VARELA ??on 06/17/2021 1:28 PM . Narrative 06/17/2021 1:28 PM [employer] Contrast enhanced MRI of the orbits INDICATION: H05.89: Orbital mass TECHNIQUE: MRI of the orbits was performed with and without intravenous contrast according to standard protocol. 7 mL of Gadavist was administered intravenously. COMPARISON: Report of outside imaging studies from 08/23/2020 and 01/06/2020 was reviewed. 1 x 0.6 cm focus of FLAIR signal hyperintensity was seen within the right orbit extending to the right apex on the study from 08/23/2020. Images of the studies are not available for review. FINDINGS: There is a well-defined 0.7 x 0.7 cm avidly enhancing lesion in the inferior right orbit abutting the inferior rectus muscle posteriorly (postcontrast coronal series 11 image 16, T2 series 9 image 17, and FLAIR series 7 image 16). The lesion does not demonstrate restricted diffusion. There is no abnormal intraorbital enhancement within the left orbit. The extraocular muscles are symmetric bilaterally. The optic nerve sheath complexes are within normal limits. The patient is status post bilateral cataract surgery. Otherwise, the globes are within normal limits. The cavernous sinuses and Meckel's caves are unremarkable. Mild cerebral volume loss and mild chronic microvascular ischemic changes are seen in the included brain parenchyma. Procedure Note Jeny Varela MD - 06/17/2021 Contrast enhanced MRI of the orbits INDICATION: H05.89: Orbital mass TECHNIQUE: MRI of the orbits was performed with and without intravenous contrast according to standard protocol. 7 mL of Gadavist wasadministered intravenously. COMPARISON: Report of outside imaging studies from 08/23/2020 and01/06/2020 was reviewed. 1 x 0.6 cm focus of FLAIR signal hyperintensity was seen within the right orbit extending to the right apex on the study from 08/23/2020. Images of the studies are not available for review. FINDINGS: There is a well-defined 0.7 x 0.7 cm avidly enhancing lesion in the inferior right orbit abutting the inferior rectus muscle posteriorly (postcontrast coronal series 11 image 16, T2 series 9 image 17, andFLAIR series 7 image 16). The lesion does not demonstrate restricteddiffusion. There is no abnormal intraorbital enhancement within the left orbit. The extraocular muscles are symmetric bilaterally. The optic nerve sheath complexes are within normal limits. The patient is status post bilateral cataract surgery. Otherwise, the globes are within normal limits. The cavernous sinuses and Meckel's caves are unremarkable. Mild cerebral volume loss and mild chronic microvascular ischemic changes are seen in the included brain parenchyma. IMPRESSION: 1.0.7 x 0.7 cm avidly enhancing lesion in the inferior right orbit abutting the inferior rectus muscle posteriorly. This may represent a vascular malformation/venous varix as mentioned in the prior reports. Direct comparison with prior images is recommended for assessment of temporal evolution. Alternatively, the imaging appearance on this single study may be from a mass lesion. This report was electronically signed by JENY VARELA on 06/17/2021 1:28 PM . Brielle Howe MD MR ORDERABLES * CREATININE - POCT INTERFACED (06/17/2021 12:23 PM [facility] [employer]) Creatinine POCT 0.81 0.30 - 1.30 mg/dL 06/17/2021 12:25 PM [employer] [facility] eGFR >60 >60 mL/min/1.7 3 m2 06/17/2021 12:25 PM [employer] [facility] Blood BLOOD SPECIMEN / Unknown 06/17/2021 12:23 PM [employer] 06/17/2021 12:25 PM [employer] Brielle Howe MD LAB - POINT OF ND RE ORDERABLES [facility] [address] [place] [address], [facility] [phone] * OPH VISUAL FIELD TEST [facility] (03/28/2021 11:02 AM CDT) Anatomical Region Laterality Modality Other 03/28/2021 11:0 2 AM CDT Alessio Shore MD OPHTHALMOLOGY SERVIC ES ORDERABLES * Visual Mclean (09/25/2020 12:03 PM CDT) Anatomical Region Laterality Modality Other 09/25/2020 12:0 3 PM CDT Derek Faby Alfonzo OD OPHTHALMOLOGY SERVIC ES ORDERABLES * Visual Mclean (02/08/2020 9:34 AM CDT) Anatomical Region Laterality Modality Other 02/08/2020 9:34 AM CDT Heriberto Blue MD OPHTHALMOLOGY SERVIC ES ORDERABLES Care Teams Data Communications Engineer Relationship Specialty Start Date End Date Darwin Marti MD [address] [place] [address] PCP - General Internal Medicine 10/27/23
--- OUTSIDE RECORDS SUMMARY | 2024-07-21 15:12 | XMS_ITS | Continuity of Care Document ---
Author Organization [facility] [place] [address] [place] [address] Phone Care Team Providers Care Costume Cutter Name Role Phone Joao Mena OD Unavailable [...] Refraction After Cataract Laser Surgery Office/outpatient Visit, [facility] Advance Directives Directive Yes / No Effective Date File Name No Information Encounters Encounter Description Practice Location Reason(s) For Visit Diagnoses Date Provider Providers Copied on Encounter [facility] [employer] [facility], [address] [facility] [address], [place], [place], [id number], [place] tel:[phone] [employer] GODINEZ Professional Post-Op (chief complaint) Post op visit 9 Trina BURGOS Joao. [address] [facility], [address], [place], [address], [place]. tel:[phone] Referring Provider: Demetrio Pinzon OD, [employer] [address] [place] [address], [address]. tel:[phone] [employer] LimitedFormerly [facility] HospitalBe[facility] [employer] [facility], [address], [place], [place], [id number], [place] tel:[phone] [employer]BERT [employer] (chief complaint) Post op visitOther secondary cataract, right eye 9 Maxwell Pearce. [address] [facility], [address], [place], [place], [id number], [place]. tel:[phone] Referring Provider: Demetrio Pinzon OD, [employer] [address] [place] [address], [address]. tel:[phone] [facility] [employer] [place], [facility], [address], [place], [place], [id number], [place] tel:[phone] [employer] [place] [employer] (chief complaint) Presence of intraocular lensOther secondary cataract, bilateralEndot helial corneal dystrophy 9 Maxwell Pearce. [address] [facility], [address], [place], [place], [address], [place]. tel:[phone] Referring Provider: Demetrio Pinzon OD, [employer] [address] [facility], [place], [address]. tel:[phone] Family History Family Member Type Diagnosis Age [...]
--- OUTSIDE RECORDS SUMMARY | 2024-07-21 15:12 | XMS_ITS | Encounter Summary ---
Author Organization [facility] Address [address] [place] [address] Phone Care Team Providers Care Transmission Worker Name Role Phone Luann Cox MD Primary Care Provider + [phone] Josiane Pacheco MD Primary Care Provider + [phone] Blair Paris MD Unavailable +[phone] Jose A Espinosa MD Unavailable [phone] Darwin Marti MD Primary Care Provider [phone] Hao Silvestre MD Unavailable +[phone] Carlos Dailey MD Unavailable Saida Mckeon APRN, JAVA PORTAL DEVELOPER Unavailable [place]sey, Jessenia M TRAINING AND DEVELOPMENT REP, AIRPORT RAMP AGENT Unavailable [phone] Hao Silvestre MD Unavailable Dominic Wang MD Unavailable [phone] Butch Muñiz MD Unavailable +[phone] Reason for Visit * Reason Comments Medication Refill Encounter Details Date Type Department Care Team (Late Contact Info) Description 10/27/2020 [facility] - [place] [address] [place] [address] Luann Cox MD [address] [place] [address] Medication Refill Social History Tobacco Use Types Packs/Day Years Used Date Smoking Tobacco: Former Cigarettes Q uit: 04/09/2005 Smokeless Tobacco: Never Alcohol Use Standard Drinks/Week Comments No 0 (1 standard drink = 0.6 oz pur e alcohol) PHQ-2 Answer Date Recorded PHQ-2 Score 2 07/14/2019 Sexually Active Control Partners Comments Not Currently Comments No Sex and Gender Information Value Date Recorded Sex Assigned at Not on file Legal Sex Female 11:13 PM CDT Gender Identity Not on file Sexual Orientation Not on file 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 Not on file Not on file Not on file documented as of this encounter Plan of Treatment Upcoming Encounters Date Type Department Care Team (Late Contact Info) Description 08/11/2024 10:00 AM RETAIL PHARMACY MERCHANDISER Office Visit [facility] Primary Care - [place] [address] [place] [address] Darwin Marti MD [address] [place] [place], [place] [id number] 02/20/2025 9:30 AM CDT Office Visit [facility] - Neurology - [place] [address] [place] [address] Jessenia Ward, TRAINING AND DEVELOPMENT REP, AIRPORT RAMP AGENT [address] [place] [address] documented as of this encounter Visit Diagnoses Diagnosis Hyperlipidemia, unspecified hyperlipidemia type Neuropathy Mononeuritis of unspecified site documented in this encounter Additional Health Concerns Infection Onset Date Last Indicated Resolved Time ESBL 08/16/2018 08/16/2018 09/28/2023 9:03 AM CDT COVID - 19 03/09/2023 03/09/2023 03/19/2023 12:1 6 AM CDT Respiratory Rule-Out 03/09/2023 03/09/2023 023 2:09 AM CDT COVID - 19 05/07/2023 05/07/2023 05/07/2023 9:50 AM RETAIL PHARMACY MERCHANDISER COVID - 19 Confirmed 05/07/2023 05/07/2023 023 12:16 AM RETAIL PHARMACY MERCHANDISER C. difficile Rule-Out 09/24/2023 09/24/20232023 3:41 PM CDT COVID - 19 09/24/2023 09/24/2023 09/24/2023 11:3 2 AM CDT C. difficile Rule-Out 09/27/2023 09/27/20232023 2:13 PM CDT COVID - 19 02/23/2024 02/23/2024 02/23/2024 11:2 8 AM CDT Respiratory Rule-Out 02/23/2024 02/23/2024 024 11:30 AM CDT Assessment Noted Time PHQ-9 Depression Total Score: 2 07/14/19 20 10:00 AM RETAIL PHARMACY MERCHANDISER documented as of this encounter Care Teams Transmission Worker Relationship Specialty Start Date End Date Luann Cox MD PCP - General Family Medicine 04/15/15 11/02/22 Josiane Pacheco MD [address] [place] [address] PCP - General Family Medicine 11/20/22 07/30/23 Darwin Marti MD [address] [place] [address] PCP - General Internal Medicine 07/31/23 Blair Paris MD 4 [facility] [address] [place] [address] Consulting Physician Orthopaedic Sports Medicine 07/31/23 Jose A Espinosa MD 2 [facility] [address] [place] [address] Consulting Physician Pain Medicine-Pain Management 07/31/23 02/08/24 Hao Silvestre MD [address] [address] Consulting Physician Neurological Surgery 07/31/23 Carlos Dailey MD #[address] [address] Consulting Physician Colon and Rectal Surgery 10/26/23 Saida Mckeon APRN, JAVA PORTAL DEVELOPER [address] [place] [address] Nurse Practitioner Gastroenterology 10/26/23 Jessenia Ward APRN, AIRPORT RAMP AGENT [address] [place] [address] Nurse Practitioner Advanced Practice Nurse 11/17/23 Hao Silvestre MD [address] [address] Consulting Physician Neurological Surgery 02/09/2401/27 Dominic Wang MD [place], [place] Consulting Physician Pain Medicine-Pain Management 02/09/24 Butch Muñiz MD #[address] [place] [address] Consulting Physician Neurology 02/23/24 documented as of this encounter
--- OUTSIDE RECORDS SUMMARY | 2024-07-21 15:12 | XMS_ITS | Encounter Summary ---
Author Organization [facility] Address [address] [place] [address] Phone Care Team Providers Care Turret Lathe Tender Name Role Phone Blair Paris MD Unavailable [phone] Jose A Espinosa MD Unavailable [phone] Darwin Marti MD Primary Care Provider [phone] Hao Silvestre MD Unavailable [phone] Carlos Dailey MD Unavailable Saida Mckeon APRN, INSEMINATION WORKER Unavailable Jessenia Ward APRN, LAND RECLAMATION SPECIALIST Unavailable + [phone] Hao Silvestre MD Unavailable +[phone] Dominic Wang MD Unavailable [phone] Butch Muñiz MD Unavailable Reason for Visit * Reason Comments Medication Refill Encounter Details Date Type Department Care Team (Late st Contact Info) Description 11/13/2023 Refill [facility] - Primary Care - [place] [address] [place] [address] Darwin Marti MD [address] [place] [address] Medication Refill Social History Tobacco Use Types Packs/Day Years Used Date Smoking Tobacco: Former Cigarettes 2 41.8 1 964 - 04/09/2005 Smokeless Tobacco: Never Alcohol Use Standard Drinks/Week Comments No 0 (1 standard drink = 0.6 oz pur e alcohol) [facility] Utilities Answer Date Recorded In the past 12 months has [employer], gas, oil, or water [employer] threatened to shut off services in your [...] often do you attend chur ch or zoroastrian services? Never 09/26/2023 Do you belong to any clubs o r organizations such as yazidism groups, unions, fraternal or athletic groups, or [...] Total Score - Questions 1-9 0 07/2023 [facility] [place] of Occupat ional Health - Occupational Stress [...] place to sleep or slept in a fpc (including now)? No 09/26/2023 Sexually Active Control [...] encounter Miscellaneous Notes * Telephone Encounter - Racquel Campos RN - 11/13/2023 9:38 AM CDT Medication(s) refilled and signed per [facility] Chronic Medication Refill Standing Order for Pediatricand Adult Patients. Requested Prescriptions Pending Prescriptions Disp Refills levothyroxine (SYNTHROID) 50 MCG Tablet [Pharmacy Med Name: Levothyroxine Sodium 50 MCG Oral Tablet] 90 Tablet 0 Sig: Take 1 tablet by mouth once daily Thyroid Hormones Protocol Passed - 11/13/2023 9:34 AM Passed - Visit with relevant provider in past 12 months or upcoming 90 days Recent Visits Date Type Provider Dept 10/14/23 Office Visit Darwin Marti MD [facility] 10/05/23 Office Visit Cassie Lara APRN, CNP [facility] 07/31/23 Office Visit Darwin Marti MD [facility] 01/29/23 Office Visit Josiane Pacheco MD [facility] Showing recent visits within past 365 days and meeting all other requirements Future Appointments Date Type Provider Dept 02/09/24 Appointment Darwin Marti MD [facility] Showing future appointments within next 90 days and meeting all other requirements Passed - Normal TSH in past 12 months TSH Date Value Ref Range Status 07/31/2023 1.805 0.300 - 5.000 mIU/L Final documented in this encounter Plan of Treatment Upcoming Encounters Date Type Department Care Team (Late st Contact Info) Description 08/11/2024 10:00 AM TECHNICAL SUPPORT INTERNSHIP Office Visit [facility] - Primary Care - [place] [address] [place] [address] Darwin Marti MD [address] [place] [address] 02/20/2025 9:30 AM CDT Office Visit [facility] - Neurology - [place] [address]2 [facility] [place] [address] Jessenia Ward, SOFTWARE WRITER, LAND RECLAMATION SPECIALIST [address] [facility] [place] [address] documented as of this encounter Visit Diagnoses Diagnosis Hypothyroidism (acquired) Unspecified hypothyroidism documented in this encounter Additional Health Concerns Infection Onset Date Last Indicated Resolved Time COVID - 19 02/23/2024 02/23/2024 02/23/2024 11:2 8 AM CDT Respiratory Rule-Out 02/23/2024 02/23/2024 024 11:30 AM CDT Assessment Noted Time PHQ-9 Depression Total Score: 0 07/31/19 24 12:53 PM TECHNICAL SUPPORT INTERNSHIP documented as of this encounter Care Teams Turret Lathe Tender Relationship Specialty Start Date End Date Darwin Marti MD [address] [place] [address] PCP - General Internal Medicine 07/31/23 Blair Paris MD 4 [facility] [address] [place] [address] Consulting Physician Orthopaedic Sports Medicine 07/31/23 Jose A Espinosa MD [address] [address] Consulting Physician Pain Medicine-Pain Management 07/31/23 02/08/24 Hao Silvestre MD [address] [facility] [address] [place] [address] Consulting Physician Neurological Surgery 07/31/23 Carlos Dailey MD #[address] [address] Consulting Physician Colon and Rectal Surgery 10/26/23 Saida Mckeon APRN, [facility] [address] [place] [address] Nurse Practitioner Gastroenterology 10/26/23 Jessenia Ward APRN, [facility] [address] [place] [address] Nurse Practitioner Advanced Practice Nurse 11/17/23 Hao Silvestre MD [address] [address] Consulting Physician Neurological Surgery 02/09/2401/27 Dominic Wang MD [place], [place] Consulting Physician Pain Medicine-Pain Management 02/09/24 Butch Muñiz MD #[address] [place] [address] Consulting Physician Neurology 02/23/24 documented as of this encounter
--- OUTSIDE RECORDS SUMMARY | 2024-07-21 15:12 | XMS_ITS | Encounter Summary ---
Author Organization [facility] Address [address] [place] [address] Phone Care Team Providers Care Sharepoint Solutions Developer Name Role Phone Blair Paris MD Unavailable [phone] Jose A Espinosa MD Unavailable [phone] Darwin Marti MD Primary Care Provider [phone] Hao Silvestre MD Unavailable [phone] Carlos Dailey MD Unavailable Saida Mckeon APRN, CLINICAL ADMISSIONS MANAGER Unavailable Jessenia Ward APRN, CIRCUIT DESIGN ENGINEER Unavailable + [phone] Hao Silvestre MD Unavailable [phone] Dominic Wang MD Unavailable Butch Muñiz MD Unavailable Reason for Visit * Reason Comments Medication Refill Encounter Details Date Type Department Care Team (Late st Contact Info) Description 10/29/2023 Refill [facility] [address] [place] [address] Darwin Marti MD [address] [place] [address] Medication Refill Social History Tobacco Use Types Packs/Day Years Used Date Smoking Tobacco: Former Cigarettes 2 41.8 1 964 - 04/09/2005 Smokeless Tobacco: Never Alcohol Use Standard Drinks/Week Comments No 0 (1 standard drink = 0.6 oz pur e alcohol) [facility] Utilities Answer Date Recorded In the past 12 months has [employer], gas, oil, or water [employer] threatened to shut off services in your [...] often do you attend chur ch or restorationism services? Never 09/26/2023 Do you belong to any clubs o r organizations such as yarsani groups, unions, fraternal or athletic groups, or [...] Total Score - Questions 1-9 0 07/2023 [facility] [place] of Occupat ional Health - Occupational Stress [...] place to sleep or slept in a group home (including now)? No 09/26/2023 Sexually Active Control [...] encounter Miscellaneous Notes * Telephone Encounter - Indra Garcia RN - 10/29/2023 9:22 AM CDT Refill requested too soon. documented in this encounter Plan of Treatment Upcoming Encounters Date Type Department Care Team (Late st Contact Info) Description 08/11/2024 10:00 AM MANAGER MEAT Office Visit [facility] - Primary Care - [place] [address] [place] [address] Darwin Marti MD [address] [place] [address] 02/20/2025 9:30 AM CDT Office Visit [facility] - Neurology - [place] [address] [place] [address] Jessenia Ward, BLADE WORKER, CIRCUIT DESIGN ENGINEER [address] [place] [address] documented as of this encounter Visit Diagnoses Not on filedocumented in this encounter Additional Health Concerns Infection Onset Date Last Indicated Resolved Time COVID - 19 02/23/2024 02/23/2024 02/23/2024 11:2 8 AM CDT Respiratory Rule-Out 02/23/2024 02/23/2024 024 11:30 AM CDT Assessment Noted Time PHQ-9 Depression Total Score: 0 07/31/19 12:53 PM MANAGER MEAT documented as of this encounter Care Teams Sharepoint Solutions Developer Relationship Specialty Start Date End Date Darwin Marti MD [address] [place] [address] PCP - General Internal Medicine 07/31/23 Blair Paris MD 4 [facility] [address] [place] [address] Consulting Physician Orthopaedic Sports Medicine 07/31/23 Jose A Espinosa MD 2 [facility] [address] [place] [address] Consulting Physician Pain Medicine-Pain Management 07/31/23 02/08/24 Hao Silvestre MD [address] [address] Consulting Physician Neurological Surgery 07/31/23 Carlos Dailey MD #[address] [address] Consulting Physician Colon and Rectal Surgery 10/26/23 Saida Mckeon APRN, CLINICAL ADMISSIONS MANAGER [address] [place] [address] Nurse Practitioner Gastroenterology 10/26/23 Jessenia Ward, BLADE WORKER, CIRCUIT DESIGN ENGINEER [address] [place] [address] Nurse Practitioner Advanced Practice Nurse 11/17/23 Hao Silvestre MD [address] [address] Consulting Physician Neurological Surgery 02/09/2401/27 Dominic Wang MD [place], [place] Consulting Physician Pain Medicine-Pain Management 02/09/24 Butch Muñiz MD #2 [place] [place] [address] Consulting Physician Neurology 02/23/24 documented as of this encounter
--- OUTSIDE RECORDS SUMMARY | 2024-07-21 15:12 | XMS_ITS | Encounter Summary ---
Author Organization [facility] Address [address] [place] [address] Phone Care Team Providers Care Terminal Operations Supervisor Name Role Phone Luann Cox MD Primary Care Provider + [phone] Josiane Pacheco MD Primary Care Provider + [phone] Blair Paris MD Unavailable [phone] Jose A Espinosa MD Unavailable [phone] Darwin Marti MD Primary Care Provider [phone] Hao Silvestre MD Unavailable [phone] Carlos Dailey MD Unavailable Saida Mckeon APRN, FUR BLOWING MACHINE ATTENDANT Unavailable Jessenia Ward APRN, PEANUT ROASTER Unavailable +- [phone] Hao Silvestre MD Unavailable [phone] Dominic Wang MD Unavailable [phone] Butch Muñiz MD Unavailable +[phone] Reason for Visit * Reason Comments Medication Refill Encounter Details Date Type Department Care Team ([facility] Contact Info) Description 12/12/2021 Refill [facility] [address] [place] [address] Luann Cox MD [address] [place] [address] Medication Refill Social History Tobacco [...] file Not on file Not on file COVID-19 Exposure Response Date Recorded In the last 10 days, have yo u been in contact with someone who was confirmed or suspected to have Coronavirus/COVID-19? No / Unsure 12/10/2021 8:19 AM CDT documented as of this encounter Miscellaneous Notes * Telephone Encounter - Faith Cruz RN - 12/12/2021 12:31 PM CDT Refill request too soon. documented in this encounter Plan of Treatment Upcoming Encounters Date Type Department Care Team ([facility] Contact Info) Description 08/11/2024 10:00 AM FLOOR SANDING MACHINE OPERATOR Office Visit [facility] - [place] [address] [place] [address] Darwin Marti MD [address] [place] [address] 02/20/2025 9:30 AM CDT Office Visit [facility] - Neurology - [place] [address] [place] [address] Jessenia Ward, MANUFACTURING MECHANIC, PEANUT ROASTER [address] [place] [address] documented as of this encounter Visit Diagnoses Diagnosis Essential hypertension Unspecified essential hypertension documented in this encounter Additional Health Concerns Infection Onset Date Last Indicated Resolved Time ESBL 08/16/2018 08/16/2018 09/28/2023 9:03 AM CDT COVID - 19 03/09/2023 03/09/2023 03/19/2023 12:1 6 AM CDT Respiratory Rule-Out 03/09/2023 03/09/2023 023 2:09 AM CDT COVID - 19 05/07/2023 05/07/2023 05/07/2023 9:50 AM FLOOR SANDING MACHINE OPERATOR COVID - 19 Confirmed 05/07/2023 05/07/2023 023 12:16 AM FLOOR SANDING MACHINE OPERATOR C. difficile Rule-Out 09/24/2023 09/24/20232023 3:41 PM CDT COVID - 19 09/24/2023 09/24/2023 09/24/2023 11:3 2 AM CDT C. difficile Rule-Out 09/27/2023 09/27/20232023 2:13 PM CDT COVID - 19 02/23/2024 02/23/2024 02/23/2024 11:2 8 AM CDT Respiratory Rule-Out 02/23/2024 02/23/2024 024 11:30 AM CDT Assessment Noted Time PHQ-9 Depression Total Score: 2 07/14/19 20 10:00 AM FLOOR SANDING MACHINE OPERATOR documented as of this encounter Care Teams Terminal Operations Supervisor Relationship Specialty Start Date End Date Luann Cox MD PCP - General Family Medicine 04/15/15 11/02/22 Josiane Pacheco MD [address] [place] [address] PCP - General Family Medicine 11/20/22 07/30/23 Darwin Marti MD [address] [place] [address] PCP - General Internal Medicine 07/31/23 Blair Paris MD 4 [facility] [address] [place] [address] Consulting Physician Orthopaedic Sports Medicine 07/31/23 Jose A Espinosa MD 2 [facility] [address] [place] [address] Consulting Physician Pain Medicine-Pain Management 07/31/23 02/08/24 Hao Silvestre MD [address] [address] Consulting Physician Neurological Surgery 07/31/23 Carlos Dailey MD #2 [facility] [address] [place] [address] Consulting Physician Colon and Rectal Surgery 10/26/23 Saida Mckeon APRN, FUR BLOWING MACHINE ATTENDANT #[address] [place] [address] Nurse Practitioner Gastroenterology 10/26/23 Jessenia Ward APRN, PEANUT ROASTER [address] [place] [address] Nurse Practitioner Advanced Practice Nurse 11/17/23 Hao Silvestre MD [address] [facility] [address] [place] [address] Consulting Physician Neurological Surgery 02/09/2401/27 Dominic Wang MD [place], [place] Consulting Physician Pain Medicine-Pain Management 02/09/24 Butch Muñiz MD #[address] [place] [address] Consulting Physician Neurology 02/23/24 documented as of this encounter
--- OUTSIDE RECORDS SUMMARY | 2024-07-21 15:12 | XMS_ITS | Encounter Summary ---
Author Organization [facility] Address [address] [place] [address] Phone Care Team Providers Care Gem Technician Name Role Phone Luann Cox MD Primary Care Provider + [phone] Josiane Pacheco MD Primary Care Provider + [phone] Blair Paris MD Unavailable [phone] Jose A Espinosa MD Unavailable [phone] Darwin Marti MD Primary Care Provider [phone] Hao Silvestre MD Unavailable [phone] Carlos Dailey MD Unavailable Saida Mckeon APRN, STATION WORKER Unavailable Jessenia Ward APRN, FLARE BREAKER Unavailable + [phone] Hao Silvestre MD Unavailable [phone] Dominic Wang MD Unavailable [phone] Butch Muñiz MD Unavailable [phone] Reason for Visit * Reason Comments Medication Refill Encounter Details Date Type Department Care Team (Late st Contact Info) Description 01/02/2021 Refill [facility] - Primary Care - [place] [address] [place] [id number] Luann Cox MD [address] [place] [address] Medication Refill Social History Tobacco [...] encounter Miscellaneous Notes * Telephone Encounter - Coni Erickson RN - 01/02/2021 12:59 PM CDT Per nursing clinical judgement, provider to review and approve the medication(s) order(s) if appropriate. Requested Prescriptions Pending Prescriptions Disp Refills Euthyrox 50 MCG Tablet [Pharmacy Med Name: Euthyrox 50 MCG Oral Tablet] 90 Tablet 0 Sig: Take 1 tablet by mouth once daily Thyroid Hormones Protocol Passed - 01/02/2021 12:58 PM Passed - Visit with relevant provider in past 12 months or upcoming 90 days Recent Visits Date Type Provider Dept 09/06/20 Office Visit Luann Cox MD [facility] 07/24/20 Office Visit Luann Cox MD [facility] 01/12/20 Office Visit Luann Cox MD [facility] Showing recent visits within past 365 days and meeting all other requirements Future Appointments Date Type Provider Dept 03/07/21 Appointment Luann Cox MD [facility] Showing future appointments within next 90 days and meeting all other requirements Passed - Normal TSH in past 12 months TSH Date Value Ref Range Status 07/12/2020 3.080 0.270 - 4.200 mIU/L Final meloxicam (MOBIC) 15 MG Tablet [Pharmacy Med Name: Meloxicam 15 MG Oral Tablet] 90 Tablet 0 Sig: Take 1 tablet by mouth once daily [facility] Analgesics: COX2 Inhibitors Passed - 01/02/2021 12:58 PM Passed - Valid encounter within last 6 months Past Office Visits Recent Outpatient Visits 3 months ago Spinal stenosis, lumbar region, with neurogenic claudication [facility] Luann Cox MD 5 months ago Uncomplicated asthma [facility] Luann Cox MD 11 months ago Essential hypertension [facility] Luann Cox MD 1 year ago Essential hypertension [facility] Luann Cox MD 1 year ago Essential hypertension [facility] Luann Cox MD Upcoming Appointments Future Appointments In 2 months Luann Cox MD [facility] - Recent and Past Visits Recent Visits Date Type Provider Dept 09/06/20 Office Visit Luann Cox MD [facility] 07/24/20 Office Visit Luann Cox MD [facility] 01/12/20 Office Visit Luann Cox MD [facility] Showing recent visits within past 460 days with a meds authorizing provider and meeting all other requirements Future Appointments Date Type Provider Dept 03/07/21 Appointment Luann Cox MD [facility] Showing future appointments within next 90 days with a meds authorizing provider and meeting all other requirements simvastatin (ZOCOR) 40 MG Tablet [Pharmacy Med Name: Simvastatin 40 MG Oral Tablet] 90 Tablet 0 Sig: Take 1 tablet by mouth once daily Hmg CoA Reductase Inhibitors Protocol Passed - 01/02/2021 12:58 PM Passed - Visit with relevant provider in past 12 months or upcoming 90 days Recent Visits Date Type Provider Dept 09/06/20 Office Visit [facility] [employer] [facility] 07/24/20 Office Visit Luann Cox MD [facility] [employer] [facility] 01/12/20 Office Visit Luann Cox MD [facility] [employer] [facility] Showing recent visits within past 365 days and meeting all other requirements Future Appointments Date Type Provider Dept 03/07/21 Appointment [facility] MD [facility] [employer] [facility] Showing future appointments within next 90 days and meeting all other requirements Passed - Lipid panel in past 12 months LDL Date Value Ref Range Status 07/12/2020 127 5 - 130 mg/dL Final HDL CHOLESTEROL Date Value Ref Range Status 07/12/2020 49.5 >40 mg/dL Final CHOLESTEROL Date Value Ref Range Status 07/12/2020 204 (H) <=200 mg/dL Final TRIGLYCERIDES Date Value Ref Range Status 07/12/2020 138 <150 mg/dL Final VLDL Date Value Ref Range Status 07/12/2020 28 5 - 55 mg/dL Final CHOL/HDL RATIO Date Value Ref Range Status 07/12/2020 4.1 0.0 - 4.4 Final NON-HDL CHOLESTEROL Date Value Ref Range Status 07/12/2020 154.5 (H) <130 mg/dL Final pantoprazole (PROTONIX) 40 MG Tablet Delayed Response [Pharmacy Med Name: Pantoprazole Sodium 40 MGOral Tablet Delayed Release] 90 Tablet 0 Sig: Take 1 tablet by mouth once daily Proton Pump Inhibitors Protocol Passed - 01/02/2021 12:58 PM Passed - Visit with relevant provider in past 12 months or upcoming 90 days Recent Visits Date Type Provider Dept 09/06/20 Office Visit Luann Cox MD [facility] [employer] [facility] 07/24/20 Office Visit [facility] 01/12/20 Office Visit Luann Cox MD [facility] Showing recent visits within past 365 days and meeting all other requirements Future Appointments Date Type Provider Dept 03/07/21 Appointment Luann Cox MD [facility] Showing future appointments within next 90 days and meeting all other requirements [facility] Gastroenterology: Antiulcer - Proton Pump Inhibitors Passed - 01/02/2021 12:58 PM Passed - Valid encounter within last 12 months Past Office Visits Recent Outpatient Visits 3 months ago Spinal stenosis, lumbar region, with neurogenic claudication [facility] Luann Cox MD 5 months ago Uncomplicated asthma [facility] Luann Cox MD 11 months ago Essential hypertension [facility] Luann Cox MD 1 year ago Essential hypertension [facility] Luann Cox MD 1 year ago Essential hypertension [facility] Luann Cox MD Upcoming Appointments Future Appointments In 2 months Luann Cox MD [facility] - Recent and Past Visits Recent Visits Date Type Provider Dept 09/06/20 Office Visit Luann Cox MD [facility] 07/24/20 Office Visit Luann Cox MD [facility] 01/12/20 Office Visit Luann Cox MD [facility] Showing recent visits within past 460 days with a meds authorizing provider and meeting all other requirements Future Appointments Date Type Provider Dept 03/07/21 Appointment Luann Cox MD [facility] Showing future appointments within next 90 days with a meds authorizing provider and meeting all other requirements documented in this encounter Plan of Treatment Upcoming Encounters Date Type Department Care Team (Late st Contact Info) Description 08/11/2024 10:00 AM STUDY ABROAD ADVISOR Office Visit [facility] [place] [address] [place] [phone] Darwin Marti MD [address] [place] [address] 02/20/2025 9:30 AM CDT Office Visit [facility] - Neurology - [place] [address] [place] [address] Jessenia Ward, CARGO STATION WORKER, FLARE BREAKER [address] [place] [address] documented as of this encounter Visit Diagnoses Diagnosis Hypothyroidism (acquired) Unspecified hypothyroidism Hyperlipidemia, unspecified hyperlipidemia type Gastroesophageal reflux disease Esophageal reflux documented in this encounter Additional Health Concerns Infection Onset Date Last Indicated Resolved Time ESBL 08/16/2018 08/16/2018 09/28/2023 9:03 AM CDT COVID - 19 03/09/2023 03/09/2023 03/19/2023 12:1 6 AM CDT Respiratory Rule-Out 03/09/2023 03/09/2023 023 2:09 AM CDT COVID - 19 05/07/2023 05/07/2023 05/07/2023 9:50 AM STUDY ABROAD ADVISOR COVID - 19 Confirmed 05/07/2023 05/07/2023 023 12:16 AM STUDY ABROAD ADVISOR C. difficile Rule-Out 09/24/2023 09/24/20232023 3:41 PM CDT COVID - 19 09/24/2023 09/24/2023 09/24/2023 11:3 2 AM CDT C. difficile Rule-Out 09/27/2023 09/27/20232023 2:13 PM CDT COVID - 19 02/23/2024 02/23/2024 02/23/2024 11:2 8 AM CDT Respiratory Rule-Out 02/23/2024 02/23/2024 024 11:30 AM CDT Assessment Noted Time PHQ-9 Depression Total Score: 2 07/14/19 20 10:00 AM STUDY ABROAD ADVISOR documented as of this encounter Care Teams Gem Technician Relationship Specialty Start Date End Date Luann Cox MD PCP - General Family Medicine 04/15/15 11/02/22 Josiane Pacheco MD [address] [place] [address] PCP - General Family Medicine 11/20/22 07/30/23 Darwin Marti MD [address] [place] [address] PCP - General Internal Medicine 07/31/23 Blair Paris MD [address] [address] Consulting Physician Orthopaedic Sports Medicine 07/31/23 Jose A Espinosa MD [address] [address] Consulting Physician Pain Medicine-Pain Management 07/31/23 02/08/24 Hao Silvestre MD [address] [id number] Consulting Physician Neurological Surgery 07/31/23 Carlos Dailey MD [address] [address] Consulting Physician Colon and Rectal Surgery 10/26/23 Saida Mckeon APRN, STATION WORKER [address] [place] [address] Nurse Practitioner Gastroenterology 10/26/23 Jessenia Ward APRN, FLARE BREAKER [address] [place] [address] Nurse Practitioner Advanced Practice Nurse 11/17/23 Hao Silvestre MD [address] [address] Consulting Physician Neurological Surgery 02/09/2401/27 Dominic Wang MD [place], [place] Consulting Physician Pain Medicine-Pain Management 02/09/24 Butch Muñiz MD [address] [place] [address] Consulting Physician Neurology 02/23/24 documented as of this encounter
--- OUTSIDE RECORDS SUMMARY | 2024-07-21 15:12 | XMS_ITS | Encounter Summary ---
Author Organization [facility] Address [address] [place] [address] Phone Care Team Providers Care Box Machine Operator Name Role Phone Luann Cox MD Primary Care Provider + [phone] Josiane Pacheco MD Primary Care Provider + [phone] Blair Paris MD Unavailable [phone] Jose A Espinosa MD Unavailable [phone] Darwin Marti MD Primary Care Provider [phone] Hao Silvestre MD Unavailable [phone] Carlos Dailey MD Unavailable Saida Mckeon APRN, MEDICAL INSTRUCTOR Unavailable Jessenia Ward APRN, JAVA DEVELOPMENT TEAM LEAD Unavailable + [phone] Hao Silvestre MD Unavailable [phone] Dominic Wang MD Unavailable Butch Muñiz MD Unavailable [phone] Reason for Visit * Reason Comments Medication Refill Encounter Details Date Type Department Care Team (Late st Contact Info) Description 07/26/2021 Refill [facility] - Primary Care - [place] [address] [place] [phone] Luann Cox MD [address] [place] [address] Medication Refill Social History Tobacco [...] Exposure Response Date Recorded In the last month, have you been in contact with someone who was confirmed or suspected to have Coronavirus / COVID-19? No / Unsure 07/01/2021 11:16 AM SENIOR NAVAL PARACHUTIST documented as of this encounter Miscellaneous Notes * Telephone Encounter - Racquel Campos RN - 07/26/2021 9:30 AM SENIOR NAVAL PARACHUTIST Medication failed the protocol, provider to review and approve the medication order if appropriate. Requested Prescriptions Pending Prescriptions Disp Refills gabapentin (NEURONTIN) 300 MG Capsule [Pharmacy Med Name: Gabapentin 300 MG Oral Capsule] 270 Capsule 0 Sig: TAKE 1 CAPSULE BY MOUTH THREE TIMES DAILY Not Delegated - Anticonvulsants Excluding Benzodiazepines Protocol Failed - 07/26/2021 9:17 AM Failed - This refill cannot be delegated Passed - Visit with relevant provider in past 12 months or upcoming 90 days Recent Visits Date Type Provider Dept 06/27/21 Office Visit [facility] [address] 03/07/21 Office Visit Lu[facility] Cox [facility] [address] 09/06/20 Office Visit Luann Cox MD [facility] Showing recent visits within past 365 days and meeting all other requirements Future Appointments Date Type Provider Dept 10/21/21 [facility] Showing future appointments within next 90 days and meeting all other requirements levothyroxine (SYNTHROID) 50 MCG Tablet [Pharmacy Med Name: Levothyroxine Sodium 50 MCG Oral Tablet] 90 Tablet 0 Sig: Take 1 tablet by mouth once daily Thyroid Hormones Protocol Passed - 07/26/2021 9:17 AM Passed - Visit with relevant provider in past 12 months or upcoming 90 days Recent Visits Date Type Provider Dept 06/27/21 Office Visit [facility] [address] 03/07/21 Office Visit [facility] [address] 09/06/20 Office Visit Luann Cox MD [facility] [place] [facility] Showing recent visits within past 365 days and meeting all other requirements Future Appointments Date Type Provider Dept 10/21/21 [facility] Showing future appointments within next 90 days and meeting all other requirements Passed - Normal TSH in past 12 months TSH Date Value Ref Range Status 03/05/2021 2.770 0.270 - 4.200 mIU/L Final meloxicam (MOBIC) 15 MG Tablet [Pharmacy Med Name: Meloxicam 15 MG Oral Tablet] 90 Tablet 0 Sig: Take 1 tablet by mouth once daily NSAIDs Protocol Failed - 07/26/2021 9:17 AM Failed - Not delegated, patient not between 1 and 65 years of age Passed - Normal serum creatinine in past 12 months CREATININE, BLOOD Date Value Ref Range Status 03/05/2021 0.64 0.60 - 1.10 mg/dL Final Passed - Visit with relevant provider in past 12 months or upcoming 90 days Recent Visits Date Type Provider Dept 06/27/21 Office Visit [facility] [place] [facility] 03/07/21 Office Visit [facility] [place] [facility] 09/06/20 Office Visit Luann Cox MD [facility] [place] [facility] Showing recent visits within past 365 days and meeting all other requirements Future Appointments Date Type Provider Dept 10/21/21 Appointment Lab, [facility] [place] [facility] Showing future appointments within next 90 days and meeting all other requirements Passed - No matching NSAID med order in past 45 days No matching medication orders between 06/11/2021 9:30 AM and 07/26/2021 9:30 AM Passed - AST less than 55 or ALT less than 90 in past 12 months SGOT (AST) Date Value Ref Range Status 03/05/2021 26 <=32 U/L Final SGPT (ALT) Date Value Ref Range Status 03/05/2021 30 <=41 U/L Final Passed - HGB greater than 10 or HCT greater than 30 in past 12 months HEMOGLOBIN (HGB) Date Value Ref Range Status 03/05/2021 13.1 12.0 - 15.8 g/dL Final HEMATOCRIT (HCT) Date Value Ref Range Status 03/05/2021 41.2 36.0 - 47.0 % Final pantoprazole (PROTONIX) 40 MG Tablet Delayed Response [Pharmacy Med Name: Pantoprazole Sodium 40 MGOral Tablet Delayed Release] 90 Tablet 0 Sig: Take 1 tablet by mouth once daily Proton Pump Inhibitors Protocol Passed - 07/26/2021 9:17 AM Passed - Visit with relevant provider in past 12 months or upcoming 90 days Recent Visits Date Type Provider Dept 06/27/21 Office Visit Luann Cox MD [facility] [place] [facility] 03/07/21 Office Visit Luann Cox MD [facility] [place] [facility] 09/06/20 Office Visit Luann Cox MD [facility] [place] [facility] Showing recent visits within past 365 days and meeting all other requirements Future Appointments Date Type Provider Dept 10/21/21 [facility] [place] [facility] Showing future appointments within next 90 days and meeting all other requirements OR NAVAL PARACHUTIST documented in this encounter Plan of Treatment Upcoming Encounters Date Type Department Care Team (Late st Contact Info) Description 08/11/2024 10:00 AM SENIOR NAVAL PARACHUTIST [facility] [place] [address] [place] [phone] Darwin Marti MD [address] [place] [address] 02/20/2025 9:30 AM CDT [facility] [place] [address] [place] [address] Jessenia Ward APRN, JAVA DEVELOPMENT TEAM LEAD [address] [place] [address] documented as of this encounter Visit Diagnoses Diagnosis Neuropathy Mononeuritis of unspecified site Hypothyroidism (acquired) Unspecified hypothyroidism Gastroesophageal reflux disease Esophageal reflux documented in this encounter Additional Health Concerns Infection Onset Date Last Indicated Resolved Time ESBL 08/16/2018 08/16/2018 09/28/2023 9:03 AM CDT COVID - 19 03/09/2023 03/09/2023 03/19/2023 12:1 6 AM CDT Respiratory Rule-Out 03/09/2023 03/09/2023 023 2:09 AM CDT COVID - 19 05/07/2023 05/07/2023 05/07/2023 9:50 AM SENIOR NAVAL PARACHUTIST COVID - 19 Confirmed 05/07/2023 05/07/20232 023 12:16 AM SENIOR NAVAL PARACHUTIST C. difficile Rule-Out 09/24/2023 09/24/20232023 3:41 PM CDT COVID - 19 09/24/2023 09/24/2023 09/24/2023 11:3 2 AM CDT C. difficile Rule-Out 09/27/2023 09/27/20232023 2:13 PM CDT COVID - 19 02/23/2024 02/23/2024 02/23/2024 11:2 8 AM CDT Respiratory Rule-Out 02/23/2024 02/23/2024 024 11:30 AM CDT Assessment Noted Time PHQ-9 Depression Total Score: 2 07/14/19 20 10:00 AM SENIOR NAVAL PARACHUTIST documented as of this encounter Care Teams Box Machine Operator Relationship Specialty Start Date End Date Luann Cox MD PCP - General Family Medicine 04/15/15 11/02/22 Josiane Pacheco MD [address] [place] [address] PCP - General Family Medicine 11/20/22 07/30/23 Dariwn Marti MD [address] [place] [address] PCP - General Internal Medicine 07/31/23 Blair Paris MD [address] [facility] [address] [place] [address] Consulting Physician Orthopaedic Sports Medicine 07/31/23 Jose A Espinosa MD [address] [facility] [address] [place] [address] Consulting Physician Pain Medicine-Pain Management 07/31/23 02/08/24 Hao Silvestre MD [address] [facility] [address] [place] [address] Consulting Physician Neurological Surgery 07/31/23 Carlos Dailey MD [address] [facility] [address] [place] [address] Consulting Physician Colon and Rectal Surgery 10/26/23 Saida Mckeon APRN, MEDICAL INSTRUCTOR [address] [place] [address] Nurse Practitioner Gastroenterology 10/26/23 Jessenia Ward APRN, [facility] [address] [place] [address] Nurse Practitioner Advanced Practice Nurse 11/17/23 Hao Silvestre MD [address] [phone] Consulting Physician Neurological Surgery 02/09/2401/27 Dominic Wang MD [place], [place] Consulting Physician Pain Medicine-Pain Management 02/09/24 Butch Muñiz MD [address] [place] [phone] Consulting Physician Neurology 02/23/24 documented as of this encounter
--- OUTSIDE RECORDS SUMMARY | 2024-07-21 15:12 | XMS_ITS | Encounter Summary ---
Author Organization [facility] Address [address] [place] [address] Phone Care Team Providers Care Chip Washer Name Role Phone Luann Cox MD Primary Care Provider + [phone] Josiane Pacheco MD Primary Care Provider + [phone] Blair Paris MD Unavailable [phone] Jose A Espinosa MD Unavailable [phone] Darwin Marti MD Primary Care Provider [phone] Hao Silvestre MD Unavailable [phone] Carlos Dailey MD Unavailable Saida Mckeon APRN, COMMUNITY DIRECTOR Unavailable Jessenia Ward APRN, CRACKING UNIT OPERATOR Unavailable + [phone] Hao Silvestre MD Unavailable +[phone] Dominic Wang MD Unavailable [phone] Butch Muñiz MD Unavailable +[phone] Reason for Visit * Reason Comments Medication Refill Encounter Details Date Type Department Care Team (Late st Contact Info) Description 01/01/2022 Refill [facility] - Primary Care - [place] [address] [place] [phone] Luann Cox MD [address] [place] [address] Medication Refill Social History Tobacco [...] suspected to have Coronavirus/COVID-19? No / Unsure 12/16/2021 10:39 AM CDT documented as of this encounter Miscellaneous Notes * Telephone Encounter - Coni Erickson RN - 01/01/2022 11:18 AM CDT Medication failed the protocol, provider to review and approve the medication order if appropriate. Requested Prescriptions Pending Prescriptions Disp Refills simvastatin (ZOCOR) 40 MG Tablet [Pharmacy Med Name: Simvastatin 40 MG Oral Tablet] 90 Tablet 0 Sig: Take 1 tablet by mouth once daily Hmg CoA Reductase Inhibitors Protocol Passed - 01/01/2022 11:16 AM Passed - Visit with relevant provider in past 12 months or upcoming 90 days Recent Visits Date Type Provider Dept 12/16/21 Office Visit Luann Cox MD [facility] 06/27/21 Office Visit Luann Cox MD [facility] 03/07/21 Office Visit Luann Cox MD [facility] Showing recent visits within past 365 days and meeting all other requirements Future Appointments No visits were found meeting these conditions. Showing future appointments within next 90 days and meeting all other requirements Passed - Lipid panel in past 12 months LDL Date Value Ref Range Status 12/10/2021 132 (H) 5 - 130 mg/dL Final HDL CHOLESTEROL Date Value Ref Range Status 12/10/2021 49.9 >40 mg/dL Final CHOLESTEROL Date Value Ref Range Status 12/10/2021 200 <=200 mg/dL Final TRIGLYCERIDES Date Value Ref Range Status 12/10/2021 90 <150 mg/dL Final VLDL Date Value Ref Range Status 12/10/2021 18 5 - 55 mg/dL Final CHOL/HDL RATIO Date Value Ref Range Status 12/10/2021 4.0 0.0 - 4.4 Final NON-HDL CHOLESTEROL Date Value Ref Range Status 12/10/2021 150.1 (H) <130 mg/dL Final pantoprazole (PROTONIX) 40 MG Tablet Delayed Response [Pharmacy Med Name: Pantoprazole Sodium 40 MGOral Tablet Delayed Release] 90 Tablet 0 Sig: Take 1 tablet by mouth once daily Proton Pump Inhibitors Protocol Passed - 01/01/2022 11:16 AM Passed - Visit with relevant provider in past 12 months or upcoming 90 days Recent Visits Date Type Provider Dept 12/16/21 Office Visit Luann Cox MD [facility] 06/27/21 Office Visit Luann Cox MD [facility] 03/07/21 [facility] Showing recent visits within past 365 days and meeting all other requirements Future Appointments No visits were found meeting these conditions. Showing future appointments within next 90 days and meeting all other requirements meloxicam (MOBIC) 15 MG Tablet [Pharmacy Med Name: Meloxicam 15 MG Oral Tablet] 90 Tablet 0 Sig: Take 1 tablet by mouth once daily NSAIDs Protocol Failed - 01/01/2022 11:16 AM Failed - Not delegated, patient not between 1 and 65 years of age Passed - Normal serum creatinine in past 12 months CREATININE, BLOOD Date Value Ref Range Status 10/14/2021 0.61 0.60 - 1.10 mg/dL Final Passed - Visit with relevant provider in past 12 months or upcoming 90 days Recent Visits Date Type Provider Dept 12/16/21 Office Visit Luann Cox MD [facility] 06/27/21 Office Visit Luann Cox MD [facility] 03/07/21 Office Visit Luann Cox MD [facility] Showing recent visits within past 365 days and meeting all other requirements Future Appointments No visits were found meeting these conditions. Showing future appointments within next 90 days and meeting all other requirements Passed - No matching NSAID med order in past 45 days No matching medication orders between 11/17/2021 11:18 AM and 01/01/2022 11:18 AM Passed - AST less than 55 or ALT less than 90 in past 12 months SGOT (AST) Date Value Ref Range Status 10/14/2021 42 (H) <=32 U/L Final SGPT (ALT) Date Value Ref Range Status 10/14/2021 37 <=41 U/L Final Passed - HGB greater than 10 or HCT greater than 30 in past 12 months HEMOGLOBIN (HGB) Date Value Ref Range Status 12/10/2021 13.1 12.0 - 15.8 g/dL Final HEMATOCRIT (HCT) Date Value Ref Range Status 12/10/2021 40.8 36.0 - 47.0 % Final EQ Allergy Relief, Cetirizine, 10 MG Tablet [Pharmacy Med Name: EQ Allergy Relief (Cetirizine) 10 MG Oral Tablet] 90 Tablet 0 Sig: Take 1 tablet by mouth once daily Non-sedating Antihistamines Protocol Failed - 01/01/2022 11:16 AM Failed - Patient less than 65 years of age for Cetirizine or Levocetirizine Passed - Visit with relevant provider in past 12 months or upcoming 90 days Recent Visits Date Type Provider Dept 12/16/21 Office Visit Luann Cox MD [facility] 06/27/21 Office Visit Luann Cox MD [facility] 03/07/21 Office Visit Luann Cox MD [facility] Showing recent visits within past 365 days and meeting all other requirements Future Appointments No visits were found meeting these conditions. Showing future appointments within next 90 days and meeting all other requirements Euthyrox 50 MCG Tablet [Pharmacy Med Name: Euthyrox 50 MCG Oral Tablet] 90 Tablet 0 Sig: Take 1 tablet by mouth once daily Thyroid Hormones Protocol Passed - 01/01/2022 11:16 AM Passed - Visit with relevant provider in past 12 months or upcoming 90 days Recent Visits Date Type Provider Dept 12/16/21 Office Visit Luann Cox MD [facility] 06/27/21 Office Visit Luann Cox MD [facility] 03/07/21 Office Visit Luann Cox MD [facility] Showing recent visits within past 365 days and meeting all other requirements Future Appointments No visits were found meeting these conditions. Showing future appointments within next 90 days and meeting all other requirements Passed - Normal TSH in past 12 months TSH Date Value Ref Range Status 12/10/2021 3.010 0.270 - 4.200 mIU/L Final documented in this encounter Plan of Treatment Upcoming Encounters Date Type Department Care Team (Late st Contact Info) Description 08/11/2024 10:00 AM FINANCIAL ADVISOR TRAINEE Office Visit [facility] - Primary Care - [place] [address] [place] [phone] Darwin Marti MD [address] [place] [address] 02/20/2025 9:30 AM CDT Office Visit [facility] - Neurology - [place] [address] [place] [address] Jessenia Ward, MAINTENANCE PLUMBER, CRACKING UNIT OPERATOR [address] [place] [address] documented as of this encounter Visit Diagnoses Diagnosis Hyperlipidemia, unspecified hyperlipidemia type Gastroesophageal reflux disease Esophageal reflux Hypothyroidism (acquired) Unspecified hypothyroidism documented in this encounter Additional Health Concerns Infection Onset Date Last Indicated Resolved Time ESBL 08/16/2018 08/16/2018 09/28/2023 9:03 AM CDT COVID - 19 03/09/2023 03/09/2023 03/19/2023 12:1 6 AM CDT Respiratory Rule-Out 03/09/2023 03/09/2023 023 2:09 AM CDT COVID - 19 05/07/2023 05/07/2023 05/07/2023 9:50 AM FINANCIAL ADVISOR TRAINEE COVID - 19 Confirmed 05/07/2023 05/07/2023 023 12:16 AM FINANCIAL ADVISOR TRAINEE C. difficile Rule-Out 09/24/2023 09/24/20232023 3:41 PM CDT COVID - 19 09/24/2023 09/24/2023 09/24/2023 11:3 2 AM CDT C. difficile Rule-Out 09/27/2023 09/27/20232023 2:13 PM CDT COVID - 19 02/23/2024 02/23/2024 02/23/2024 11:2 8 AM CDT Respiratory Rule-Out 02/23/2024 02/23/2024 024 11:30 AM CDT Assessment Noted Time PHQ-9 Depression Total Score: 2 07/14/19 20 10:00 AM FINANCIAL ADVISOR TRAINEE documented as of this encounter Care Teams Chip Washer Relationship Specialty Start Date End Date Luann Cox MD PCP - General Family Medicine 04/15/15 11/02/22 Josiane Pacheco MD [address] [place] [address] PCP - General Family Medicine 11/20/22 07/30/23 Darwin Marti MD [address] [place] [address] PCP - General Internal Medicine 07/31/23 Blair Paris MD 4 [facility] [address] [place] [address] Consulting Physician Orthopaedic Sports Medicine 07/31/23 Jose A Espinosa MD 2 [facility] [address] [place] [address] Consulting Physician Pain Medicine-Pain Management 07/31/23 02/08/24 Hao Silvestre MD [address] [place] [address] Consulting Physician Neurological Surgery 07/31/23 Carlos Dailey MD [address] [facility] [address] [place] [address] Consulting Physician Colon and Rectal Surgery 10/26/23 Saida Mckeon APRN, COMMUNITY DIRECTOR [address] [place] [address] Nurse Practitioner Gastroenterology 10/26/23 Jessenia Ward APRN, CRACKING UNIT OPERATOR [address] [place] [address] Nurse Practitioner Advanced Practice Nurse 11/17/23 Hao Silvestre MD [address] [address] Consulting Physician Neurological Surgery 02/09/2401/27 Dominic Wang MD [place], [place] Consulting Physician Pain Medicine-Pain Management 02/09/24 Butch Muñiz MD [address] [place] [address] Consulting Physician Neurology 02/23/24 documented as of this encounter
--- OUTSIDE RECORDS SUMMARY | 2024-07-21 15:12 | XMS_ITS | Encounter Summary ---
Author Organization [facility] Address [address] [place] [address] Phone Care Team Providers Care Trimmer Operator Name Role Phone Luann Cox MD Primary Care Provider + [phone] Josiane Pacheco MD Primary Care Provider + [phone] Blair Paris MD Unavailable [phone] Jose A Espinosa MD Unavailable [phone] Darwin Marti MD Primary Care Provider [phone] Hao Silvestre MD Unavailable [phone] Carlos Dailey MD Unavailable Saida Mckeon APRN, CERTIFIED FRAUD EXAMINER Unavailable Jessenia Ward APRN, RESOURCE ROOM SPECIAL EDUCATION TEACHER Unavailable + [phone] Hao Silvestre MD Unavailable [phone] Dominic Wang MD Unavailable Butch Muñiz MD Unavailable [phone] Reason for Visit * Reason Comments Medication Refill Encounter Details Date Type Department Care Team (Late st Contact Info) Description 04/19/2021 Refill [facility] - Primary Care - [place] [address] [place] [phone] Luann Cox MD [address] [place] [address] Medication Refill Social History Tobacco [...] Telephone Encounter - Racquel Campos RN - 04/19/2021 1:43 PM CDT Medication failed the protocol, provider to review and approve the medication order if appropriate. Requested Prescriptions Pending Prescriptions Disp Refills pantoprazole (PROTONIX) 40 MG Tablet Delayed Response [Pharmacy Med Name: Pantoprazole Sodium 40 MGOral Tablet Delayed Release] 90 Tablet 0 Sig: Take 1 tablet by mouth once daily Proton Pump Inhibitors Protocol Passed - 04/19/2021 12:31 PM Passed - Visit with relevant provider in past 12 months or upcoming 90 days Recent Visits Date Type Provider Dept 03/07/21 Office Visit Luann Cox MD [facility] 09/06/20 Office Visit Luann Cox MD [facility] 07/24/20 Office [facility] Showing recent visits within past 365 days and meeting all other requirements Future Appointments Date Type Provider Dept 06/13/21 Appointment Luann Cox MD [facility] Showing future appointments within next 90 days and meeting all other requirements meloxicam (MOBIC) 15 MG Tablet [Pharmacy Med Name: Meloxicam 15 MG Oral Tablet] 90 Tablet 0 Sig: Take 1 tablet by mouth once daily NSAIDs Protocol Failed - 04/19/2021 12:31 PM Failed - Not delegated, patient not between 1 and 65 years of age Passed - Normal serum creatinine in past 12 months CREATININE, BLOOD Date Value Ref Range Status 03/05/2021 0.64 0.60 - 1.10 mg/dL Final Passed - Visit with relevant provider in past 12 months or upcoming 90 days Recent Visits Date Type Provider Dept 03/07/21 Office Visit Luann Cox MD [facility] 09/06/20 Office Visit Luann Cox MD [facility] 07/24/20 Office Visit Luann Cox MD [facility] Showing recent visits within past 365 days and meeting all other requirements Future Appointments Date Type Provider Dept 06/13/21 Appointment Luann Cox MD [facility] Showing future appointments within next 90 days and meeting all other requirements Passed - No matching NSAID med order in past 45 days No matching medication orders between 03/05/2021 1:43 PM and 04/19/2021 1:43 PM Passed - AST less than 55 or [...] 03/05/2021 41.2 36.0 - 47.0 % Final levothyroxine (SYNTHROID) 50 MCG Tablet [Pharmacy Med Name: Levothyroxine Sodium 50 MCG Oral Tablet] 90 Tablet 0 Sig: Take 1 tablet by mouth once daily Thyroid Hormones Protocol Passed - 04/19/2021 12:31 PM Passed - Visit with relevant provider in past 12 months or upcoming 90 days Recent Visits Date Type Provider Dept 03/07/21 Office Visit [facility] 09/06/20 Office Visit Luann Cox MD [facility] 07/24/20 Office Visit Luann Cox MD [facility] Showing recent visits within past 365 days and meeting all other requirements Future Appointments Date Type Provider Dept 06/13/21 Appointment Luann Cox MD [facility] Showing future appointments within next 90 days and meeting all other requirements Passed - Normal TSH in past 12 months TSH Date Value Ref Range Status 03/05/2021 2.770 0.270 - 4.200 mIU/L Final documented in this encounter Plan of Treatment Upcoming Encounters Date Type Department Care Team (Late st Contact Info) Description 08/11/2024 10:00 AM INSTRUCTIONAL SUPPORT SERVICES DIRECTOR Office Visit [facility] - Primary Care - [place] [address] [place] [address] Darwin Marti MD [address] [place] [address] 02/20/2025 9:30 AM CDT Office Visit [facility] - Neurology - [place] [address] [place] [phone] Jessenia Ward APRN, RESOURCE ROOM SPECIAL EDUCATION TEACHER [address] [place] [address] documented as of this encounter Visit Diagnoses Diagnosis Gastroesophageal reflux disease Esophageal reflux Hypothyroidism (acquired) Unspecified hypothyroidism documented in this encounter Additional Health Concerns Infection Onset Date Last Indicated Resolved Time ESBL 08/16/2018 08/16/2018 09/28/2023 9:03 AM CDT COVID - 19 03/09/2023 03/09/2023 03/19/2023 12:1 6 AM CDT Respiratory Rule-Out 03/09/2023 03/09/2023 023 2:09 AM CDT COVID - 19 05/07/2023 05/07/2023 05/07/2023 9:50 AM INSTRUCTIONAL SUPPORT SERVICES DIRECTOR COVID - 19 Confirmed 05/07/2023 05/07/2023 023 12:16 AM INSTRUCTIONAL SUPPORT SERVICES DIRECTOR C. difficile Rule-Out 09/24/2023 09/24/20232023 3:41 PM CDT COVID - 19 09/24/2023 09/24/2023 09/24/2023 11:3 2 AM CDT C. difficile Rule-Out 09/27/2023 09/27/20232023 2:13 PM CDT COVID - 19 02/23/2024 02/23/2024 02/23/2024 11:2 8 AM CDT Respiratory Rule-Out 02/23/2024 02/23/2024 024 11:30 AM CDT Assessment Noted Time PHQ-9 Depression Total Score: 2 07/14/19 20 10:00 AM INSTRUCTIONAL SUPPORT SERVICES DIRECTOR documented as of this encounter Care Teams Trimmer Operator Relationship Specialty Start Date End Date Luann Cox MD PCP - General Family Medicine 04/15/15 11/02/22 Josiane Pacheco MD [address] [place] [address] PCP - General Family Medicine 11/20/22 07/30/23 Darwin Marti MD [address] [place] [address] PCP - General Internal Medicine 07/31/23 Blair Paris MD 4 [facility] [address] [place] [address] Consulting Physician Orthopaedic Sports Medicine 07/31/23 Jose A Espinosa MD 2 [facility] [address] [place] [address] Consulting Physician Pain Medicine-Pain Management 07/31/23 02/08/24 Hao Silvestre MD [address] [address] Consulting Physician Neurological Surgery 07/31/23 Carlos Dailey MD [address] [facility] [address] [place] [address] Consulting Physician Colon and Rectal Surgery 10/26/23 Saida Mckeon APRN, CERTIFIED FRAUD EXAMINER [address] [place] [address] Nurse Practitioner Gastroenterology 10/26/23 Jessenia Ward APRN, RESOURCE ROOM SPECIAL EDUCATION TEACHER [address] [place] [address] Nurse Practitioner Advanced Practice Nurse 11/17/23 Hao Silvestre MD [address] [address] Consulting Physician Neurological Surgery 02/09/2401/27 Dominic Wang MD [place], [place] Consulting Physician Pain Medicine-Pain Management 02/09/24 Butch Muñiz MD [address] [place] [address] Consulting Physician Neurology 02/23/24 documented as of this encounter
--- OUTSIDE RECORDS SUMMARY | 2024-07-21 15:12 | XMS_ITS | Encounter Summary ---
Author Organization [facility] Address [address] [place] [address] Phone Care Team Providers Care Veneer Jointer Operator Name Role Phone Josiane Pacheco MD Primary Care Provider [phone] Blair Paris MD Unavailable [phone] Jose A Espinosa MD Unavailable [phone] Darwin Marti MD Primary Care Provider [phone] Hao Silvestre MD Unavailable [phone] Carlos Dailey MD Unavailable Saida Mckeon APRN, ASSURANCE MANAGER INSURANCE Unavailable Jessenia Ward APRN, [facility] Unavailable + [phone] Hao Silvestre MD Unavailable Dominic Wang MD Unavailable [phone] Butch Muñiz MD Unavailable Reason for Visit * Reason Comments Medication Refill Encounter Details Date Type Department Care Team (Late st Contact Info) Description 01/18/2023 Refill [facility] - Primary Care - [place] [address] [place] [address] Josiane Pacheco MD [address] [place] [address] Medication Refill Social History Tobacco Use Types [...] suspected to have Coronavirus/COVID-19? No / Unsure 01/13/2023 9:25 AM CDT documented as of this encounter Miscellaneous Notes * Telephone Encounter - Ranjeet Boston PAC - 01/19/2023 10:53 AM CDT Rx request approved. * Telephone Encounter - Coni Erickson RN - 01/19/2023 8:55 AM CDT Medication failed the protocol, provider to review and approve the medication order if appropriate. Requested Prescriptions Pending Prescriptions Disp Refills simvastatin (ZOCOR) 40 MG Tablet [Pharmacy Med Name: Simvastatin 40 MG Oral Tablet] 90 Tablet 0 Sig: Take 1 tablet by mouth once daily Hmg CoA Reductase Inhibitors Protocol Passed - 01/18/2023 11:20 AM Passed - Visit with relevant provider in past 12 months or upcoming 90 days Recent Visits Date Type Provider Dept 05/29/22 Office Visit Luann Cox MD [facility] Showing recent visits within past 365 days and meeting all other requirements Future Appointments Date Type Provider Dept 01/29/23 Appointment Josiane Pacheco MD [facility] Showing future appointments within next 90 days and meeting all other requirements Passed - Lipid panel in past 12 months LDL Date Value Ref Range Status 11/25/2022 135 (H) 5 - 130 mg/dL Final HDL CHOLESTEROL Date Value Ref Range Status 11/25/2022 53.3 >40 mg/dL Final CHOLESTEROL Date Value Ref Range Status 11/25/2022 209 (H) <=200 mg/dL Final TRIGLYCERIDES Date Value Ref Range Status 11/25/2022 103 <150 mg/dL Final VLDL Date Value Ref Range Status 11/25/2022 21 5 - 55 mg/dL Final CHOL/HDL RATIO Date Value Ref Range Status 11/25/2022 3.9 0.0 - 4.4 Final NON-HDL CHOLESTEROL Date Value Ref Range Status 11/25/2022 155.7 (H) <130 mg/dL Final Passed - CMP in past 12 months SODIUM Date Value Ref Range Status 11/25/2022 141 136 - 144 mmol/L Final POTASSIUM Date Value Ref Range Status 11/25/2022 4.6 3.5 - 5.1 mmol/L Final CHLORIDE Date Value Ref Range Status 11/25/2022 101 100 - 110 mmol/L Final CO2, VENOUS Date Value Ref Range Status 11/25/2022 27 22 - 32 mmol/L Final ANION GAP Date Value Ref Range Status 11/25/2022 17.6 8.0 - 20.0 mmol/L Final GLUCOSE Date Value Ref Range Status 11/25/2022 91 70 - 99 mg/dL Final BUN Date Value Ref Range Status 11/25/2022 21 8 - 23 mg/dL Final CREATININE, BLOOD Date Value Ref Range Status 11/25/2022 0.60 0.60 - 1.10 mg/dL Final BUN/CREATININE RATIO Date Value Ref Range Status 11/25/2022 35 (H) 12 - 20 ratio Final TOTAL PROTEIN Date Value Ref Range Status 11/25/2022 7.0 6.0 - 8.3 g/dL Final ALBUMIN Date Value Ref Range Status 11/25/2022 4.4 3.5 - 5.2 g/dL Final Comment: The colormetric methods used for the determination of Albumin may lead to falsely elevated test results in patients suffering from renal failure or insufficiency due to interference with other proteins. A/G RATIO Date Value Ref Range Status 11/25/2022 1.7 1.0 - 2.0 Final CALCIUM Date Value Ref Range Status 11/25/2022 9.7 8.9 - 10.3 mg/dL Final T BILI Date Value Ref Range Status 11/25/2022 0.3 <=1.2 mg/dL Final SGOT (AST) Date Value Ref Range Status 11/25/2022 26 <=32 U/L Final SGPT (ALT) Date Value Ref Range Status 11/25/2022 33 <=41 U/L Final ALKALINE PHOSPHATASE Date Value Ref Range Status 11/25/2022 79 35 - 105 U/L Final GFR, EST. NONAFRICAN Date Value Ref Range Status 11/25/2022 >60 >=60 Final GFR, EST. Date Value Ref Range Status 11/25/2022 >60 >=60 Final GFR, ESTIMATED Date Value Ref Range Status 11/25/2022 >60 >=60 Final Comment: Creatinine Clearance is the preferred criteria for selecting drug dose adjustments in renally impaired patients. The GFR is provided as additional pertinent clinical information. GFR is reported in mL/min/1.73 sq m. Calculation based on the Chronic Kidney Disease Epidemiology Collaboration (CKD- EPI) equation refitwithout adjustment for race. IS THE PATIENT REQUIRED TO BE FASTING? Date Value Ref Range Status 11/25/2022 No Final pantoprazole (PROTONIX) 40 MG Tablet Delayed Response [Pharmacy Med Name: Pantoprazole Sodium 40 MGOral Tablet Delayed Release] 90 Tablet 0 Sig: Take 1 tablet by mouth once daily Proton Pump Inhibitors Protocol Passed - 01/18/2023 11:20 AM Passed - Visit with relevant provider in past 12 months or upcoming 90 days Recent Visits Date Type Provider Dept 05/29/22 Office Visit Luann Cox MD [facility] Showing recent visits within past 365 days and meeting all other requirements Future Appointments Date Type Provider Dept 01/29/23 Appointment Josiane Pacheco MD [facility] Showing future appointments within next 90 days and meeting all other requirements meloxicam (MOBIC) 15 MG Tablet [Pharmacy Med Name: Meloxicam 15 MG Oral Tablet] 90 Tablet 0 Sig: Take 1 tablet by mouth once daily NSAIDs Protocol Failed - 01/18/2023 11:20 AM Failed - Not delegated, patient not between 1 and 65 years of age Passed - Normal serum creatinine in past 12 months CREATININE, BLOOD Date Value Ref Range Status 11/25/2022 0.60 0.60 - 1.10 mg/dL Final Passed - Visit with relevant provider in past 12 months or upcoming 90 days Recent Visits Date Type Provider Dept 05/29/22 Office Visit Luann Cox MD [facility] Showing recent visits within past 365 days and meeting all other requirements Future Appointments Date Type Provider Dept 01/29/23 Appointment Josiane Pacheco MD [facility] Showing future appointments within next 90 days and meeting all other requirements Passed - No matching NSAID med order in past 45 days No matching medication orders between 12/05/2022 8:55 AM and 01/19/2023 8:55 AM Passed - AST less than 55 or ALT less than 90 in past 12 months SGOT (AST) Date Value Ref Range Status 11/25/2022 26 <=32 U/L Final SGPT (ALT) Date Value Ref Range Status 11/25/2022 33 <=41 U/L Final Passed - HGB greater than 10 or HCT greater than 30 in past 12 months HEMOGLOBIN (HGB) Date Value Ref Range Status 11/25/2022 14.0 12.0 - 15.8 g/dL Final HEMATOCRIT (HCT) Date Value Ref Range Status 11/25/2022 43.2 36.0 - 47.0 % Final levothyroxine (SYNTHROID) 50 MCG Tablet [Pharmacy Med Name: Levothyroxine Sodium 50 MCG Oral Tablet] 90 Tablet 0 Sig: Take 1 tablet by mouth once daily Thyroid Hormones Protocol Passed - 01/18/2023 11:20 AM Passed - Visit with relevant provider in past 12 months or upcoming 90 days Recent Visits Date Type Provider Dept 05/29/22 Office Visit Luann Cox MD [facility] Showing recent visits within past 365 days and meeting all other requirements Future Appointments Date Type Provider Dept 01/29/23 Appointment Josiane Pacheco MD [facility] Showing future appointments within next 90 days and meeting all other requirements Passed - Normal TSH in past 12 months TSH Date Value Ref Range Status 11/25/2022 2.430 0.270 - 4.200 mIU/L Final EQ Allergy Relief, Cetirizine, 10 MG Tablet [Pharmacy Med Name: EQ Allergy Relief (Cetirizine) 10 MG Oral Tablet] 90 Tablet 0 Sig: Take 1 tablet by mouth once daily Non-sedating Antihistamines Protocol Failed - 01/18/2023 11:20 AM Failed - Patient less than 65 years of age for Cetirizine or Levocetirizine Passed - Visit with relevant provider in past 12 months or upcoming 90 days Recent Visits Date Type Provider Dept 05/29/22 Office Visit Luann Cox MD [facility] Showing recent visits within past 365 days and meeting all other requirements Future Appointments Date Type Provider Dept 01/29/23 Appointment Josiane Pacheco MD [facility] Showing future appointments within next 90 days and meeting all other requirements documented in this encounter Plan of Treatment Upcoming Encounters Date Type Department Care Team (Late st Contact Info) Description 08/11/2024 10:00 AM FULL TIME STAFF INTERPRETER Office Visit [facility] - Primary Care - [place] [address] [place] [id number] Darwin Marti MD [address] [place] [address] 02/20/2025 9:30 AM CDT Office Visit [facility] - Neurology - [place] [address] [place] [address] Jessenia Ward, INTERNET SALES MANAGER, [employer] [address] [place] [address] documented as of this encounter Visit Diagnoses [...] - 19 05/07/2023 05/07/2023 05/07/2023 9:50 AM FULL TIME STAFF INTERPRETER COVID - 19 Confirmed 05/07/2023 05/07/2023 023 12:16 AM FULL TIME STAFF INTERPRETER C. difficile Rule-Out 09/24/2023 09/24/20232023 3:41 PM CDT COVID - 19 09/24/2023 09/24/2023 09/24/2023 11:3 2 AM CDT C. difficile Rule-Out 09/27/2023 09/27/20232023 2:13 PM CDT COVID - 19 02/23/2024 02/23/2024 02/23/2024 11:2 8 AM CDT Respiratory Rule-Out 02/23/2024 02/23/2024 024 11:30 AM CDT Assessment Noted Time PHQ-9 Depression Total Score: 2 07/14/19 20 10:00 AM FULL TIME STAFF INTERPRETER documented as of this encounter Care Teams Veneer Jointer Operator Relationship Specialty Start Date End Date Josiane Pacheco MD [address] [place] [address] PCP - General Family Medicine 11/20/22 07/30/23 Darwin Marti MD [address] [place] [address] PCP - General Internal Medicine 07/31/23 Blair Paris MD 4 [facility] [address] [place] [address] Consulting Physician Orthopaedic Sports Medicine 07/31/23 Jose A Espinosa MD 2 [facility] [address] [place] [address] Consulting Physician Pain Medicine-Pain Management 07/31/23 02/08/24 Hao Silvestre MD [address] [address] Consulting Physician Neurological Surgery 07/31/23 Carlos Dailey MD [address] [facility] [address] [place] [address] Consulting Physician Colon and Rectal Surgery 10/26/23 Saida Mckeon APRN, ASSURANCE MANAGER INSURANCE [address] [place] [address] Nurse Practitioner Gastroenterology 10/26/23 Jessenia Ward, INTERNET SALES MANAGER, [employer] [address] [place] [address] Nurse Practitioner Advanced Practice Nurse 11/17/23 Hao Silvestre MD [address] [address] Consulting Physician Neurological Surgery 02/09/2401/27 Dominic Wang MD [place], [place] Consulting Physician Pain Medicine-Pain Management 02/09/24 Butch Muñiz MD [address] [place] [address] Consulting Physician Neurology 02/23/24 documented as of this encounter
--- OUTSIDE RECORDS SUMMARY | 2024-07-21 15:12 | XMS_ITS | Clinical Summary ---
Author Organization [facility] Address [address] [place] [address] Phone Care Team Providers Care Rose Grader Name Role Phone Blair Paris MD Unavailable [phone] Darwin Marti MD Primary Care Provider [phone] Hao Silvestre MD Unavailable [phone] Carlos Dailey MD Unavailable Saida Mckeon APRN, COLLET MAKER Unavailable Jessenia Ward APRN, FRETTED INSTRUMENT REPAIRER Unavailable + [phone] Dominic Wang MD Unavailable [phone] Butch Muñiz MD Unavailable [phone] Allergies Active Allergy Reactions Criticality Noted Date Comments Cephalosporins Rash Medium 02/08/2020 Codeine Unknown Meperidine Hives 06/15/2015 Fish Allergy Unknown,Other (see Comments) 06/15/2015 Reaction: Unknown, Kiwi Extract Unknown 06/15/2015 Latex Itching 06/15/2015 Penicillins Unknown Concord Extract Unknown 06/15/2015 Sulfa Antibiotics Unknown Tetanus Antitoxin Swelling 06/15/2015 Hydrocodone-Acetaminophen Vomiting 06/15/2015 Medications Vitamin D, Cholecalcifero l, 25 MCG (1000 UT) Capsule Take 1,000 Units by mouth daily. 11/23/19 20 Active Multiple Vitamin (MULTIVITAMIN PO) Take 1 Tab by mouth daily. Active hydrOXYzine (VISTARIL) 25 MG CapsuleIndicat ions:Vestibula r migraine Take 1 Cap by mouth every 4 hours as needed (dizziness). 90 Cap 01/12/20 20 Active Calcium Carbonate (CALCIUM 600 PO) Take by mouth. Activ e Mometasone Furo-Formotero l Fum (Dulera) 100-5 MCG/ACT AerosolIndicat ions:Uncomplic ated asthma take 2 Puffs by inhalation 2 times daily. 10 g 1 06/09/20 22 Active albuterol 108 (90 Base) MCG/ACT Aerosol SolutionIndica tions:Uncompli cated asthma take 1 Puff by inhalation every 4 hours as needed for Wheezing. takes PRN, hasn't taken for several weeks 8.5 g 2 06/09/20 22 Active dicyclomine (BENTYL) 20 MG Tablet Take 1 Tablet by mouth every 6 hours. 30 Tablet 03/09/20 23 Active clopidogrel (PLAVIX) 75 MG Tablet Take 1 tablet by mouth once daily 90 Tablet 2 09/08/19 24 Active pantoprazole (PROTONIX) 40 MG Tablet Delayed Response Take 1 tablet by mouth once daily 90 Tablet 3 11/11/19 24 Active EQ Allergy Relief, Cetirizine, 10 MG Tablet Take 1 tablet by mouth once daily 90 Tablet 3 11/11/19 24 Active Additional Information Patient taking differently: DAILY, Reported on 11/12/2023 meclizine (ANTIVERT) 25 MG Tablet Take 1 tablet by mouth three times daily as needed 270 Tablet 11/13/19 24 Active hydroCHLOROthi azide (MICROZIDE) 12.5 MG CapsuleIndicat ions:Hypertens ion, essential Take 1 Capsule by mouth daily. 90 Capsule 3 12/04/19 24 Active lisinopril (PRINIVIL, ZESTRIL) 10 MG TabletIndicati ons:Hypertensi on, essential Take 1 Tablet by mouth daily. 90 Tablet 3 01/01/20 24 Active gabapentin (NEURONTIN) 300 MG CapsuleIndicat ions:Neuropath y TAKE 1 CAPSULE BY MOUTH THREE TIMES DAILY 270 Capsule 03/21/20 24 Active levothyroxine (SYNTHROID) 50 MCG TabletIndicati ons:Hypothyroi dism (acquired) Take 1 tablet by mouth once daily 90 Tablet 06/20/20 24 Active meloxicam (MOBIC) 15 MG Tablet Take 1 tablet by mouth once daily 90 Tablet 1 06/20/20 24 Active simvastatin (ZOCOR) 40 MG Tablet Take 1 tablet by mouth once daily 90 Tablet 06/27/20 24 Active simvastatin (ZOCOR) 40 MG Tablet Take 1 tablet by mouth once daily 90 Tablet 03/23/20 24 024 Discontinued nitrofurantoin , monohydrate-ma crocrystal, (MACROBID) 100 MG CapsuleIndicat ions:Dysuria Take 1 Capsule by mouth 2 times daily for 5 days. 10 Capsule 07/14/19 25 025 Active Problems Problem Noted Date Diagnosed Date Trigger ring finger of left hand 06/02/2024 Lymphocytic colitis 09/27/2023 Anemia 10/08/2021 07/31/2023 Chronic pain syndrome 06/12/2021 Recurrent syncope 01/12/2020 Vestibular migraine 11/18/2019 Allergic rhinitis 07/14/2019 Hypothyroidism (acquired) 03/18/2016 Neuropathy 08/21/2015 Vitamin D deficiency 08/21/2015 Arthritis 02/19/2015 07/31/2023 Overview (07/31/2023): Overview: Arthritis Arthritis Mitral valve prolapse 02/19/2015 07/31/2023 Overview (07/31/2023): Overview: Mitral valve prolapse Mitral valve prolapse Hypertension, essential Gastroesophageal reflux disease without esophagi tis Urge incontinence Asthma Spinal stenosis, lumbar vanessa on, with neurogenic claudication Mixed hyperlipidemia Osteopenia Prediabetes Multinodular goiter Resolved Problems Problem Noted Date Diagnosed Date Resolved Date Intractable abdominal pain 09/26/2023 0 02/09/2024 terminal clerk 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 use of 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 07/04/202207/31/2023 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 4 Seizure 06/27/2021 07/31/2023 GERD (gastroesophageal reflux disease) 03/28/202107/31/2023 Degenerative lumbar spinal stenosis 03/28/202107/3102/09/2024 Orbital lesion 03/07/2021 07/31/2023 Chest pain 11/20/2019 01/12/2020 Nausea and vomiting 11/20/2019 01/12/20 Syncope and collapse 11/20/2019 020 '[id number]' wit h signs of malnutrition 01/11/2019 01/11/2019 Acute cystitis without hematuria 08/16/2018 01/11/2019 Orthostatic dizziness 08/16/20182019 Hypothermia 08/16/2018 01/11/2019 Subacromial impingement of left shoulder 11/27/2017 12/01/2017 Arthritis of left acromioclavicular joint 11/27/2017 12/01/2017 Biceps tendonitis, left 11/27/2017 06/10/2017 Pain in both lower extremities 03/18/2016 07/31/2023 Acute pyelonephritis 11/05/2015 016 Constipation - functional 07/10/2015 Gallbladder disorder 07/10/2015 016 Gastritis 03/18/2016 Overview (05/15/2015): Mild Encounters Date Type Department Care Team Description 07/14/2024 Telephone [facility] [address] [place] [address] Darwin Marti MD Medication Management 06/25/2024 Refill [facility] - [facility] - [address] [address] [place] [address] Darwin Marti MD Medication Refill 06/20/2024 11:15 AM COSMETOLOGY INSTRUCTOR [facility] [place] [address] Darwin Marti MD Pre-operative examination for internal medicine (Primary Dx); Trigger ring finger of left hand Discharge Disposition: Discharged to home or Selfcare 06/20/2024 [facility] [place] [phone] Darwin Marti MD Form Completion (Pre-op Clearance) 06/20/2024 Travel 06/20/2024 Refill [facility] [address] [place] [address] Darwin Marti MD Medication Refill from Last 3 Months Immunizations Immunization Administration Dates Next Due Covid-19, Mrna, Lnp-s, PF, 1 00 mcg/0.5 mL Dose (Moderna) 07/01/2021,11/06/2020,10/09/2020 Influenza Vaccine greater than 3 yrs 05/04/2019, 06/15/2015,03/29/2014 Influenza Vaccine, Quadrivalent, PF 02/0 07/2023,04/22/2022,03/07/2021,2020,07/15/2018,05/26/2017 Influenza, High-dose, Quadrivalent 03/18/2016 Influenza, Trivalent, Adjuvanted, PF 03/18/2024 PUR FLU HIGH DOSE (FLUZONE) 03/18/2016 PUR PCV-13 09/23/2016 Pneumococcal Vaccine Adult - 23 Valent 01/27/2013 TD VACCINE 06/29/1998 Zoster Vaccine, live 01/27/2013 Family History Medical History Relation Name Comments Heart Attack Half-Brother 1 Hypertension Half-Brother 2 Diabetes Mother Heart Disease Mother Hypertension Mother Osteoarthritis Mother Stroke Mother Hypertension Son 1 Chronic Obstructive Pulmonary Disease Son 2 No Known Problems Son 3 Relation Name Status Comments Father unknown history . never met him. Half-Brother 1 Half-Brother 2 Alive Half-Brother 3 Alive Half-Brother 4 Alive Half-Brother 5 Alive Half-Brother 6 Alive Half-Brother 7 Alive Half-Sister Alive Mother Son 1 Alive Son 2 Alive Son 3 Alive Social History Tobacco Use Types Packs/Day Years Used Date Smoking Tobacco: Former Cigarettes 2 41.8 1 964 - 04/09/2005 Smokeless Tobacco: Never Tobacco Cessation:Counseling Given: Not Answered Alcohol Use Standard Drinks/Week Comments No 0 (1 standard drink = 0.6 oz pur e alcohol) [facility] Utilities Answer Date Recorded In the past 12 months has e electric, gas, oil, or water company [...] often do you attend chur ch or sabianism services? Never 09/26/2023 Do you belong to any clubs o r organizations such as mandaen groups, unions, fraternal or athletic groups, or [...] Total Score - Questions 1-9 0 07/2023 [place] Leroy of Occupat ional Health - Occupational Stress [...] place to sleep or slept in a mcfp (including now)? 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 Not on file Not on file Not on file Last Filed Vital Signs Vital Sign Reading Time Taken Comments Blood Pressure 130/68 06/20/2024 11:01 AM COSMETOLOGY INSTRUCTOR Pulse 63 06/20/2024 11:01 AM COSMETOLOGY INSTRUCTOR Temperature 35.9 ??C (96.7 ??F) 06/20/2024 11:01 AM C Respiratory Rate 20 06/20/2024 11:01 AM COSMETOLOGY INSTRUCTOR Oxygen Saturation 99% 06/20/2024 11:01 AM COSMETOLOGY INSTRUCTOR Inhaled Oxygen Concentration - - Weight 76.4 kg (168 lb 8 oz) 06/20/2024 11:01 AM COSMETOLOGY INSTRUCTOR Height 162.6 cm (5' 4 ) 06/20/2024 11:01 AM COSMETOLOGY INSTRUCTOR Body Mass Index 28.92 06/20/2024 11:01 AM COSMETOLOGY INSTRUCTOR Plan of Treatment Upcoming Encounters Date Type Department Care Team (Late st Contact Info) Description 08/11/2024 10:00 AM COSMETOLOGY INSTRUCTOR Office Visit [facility] - Primary Care - [place] [address] [place] [address] Darwin Marti MD [address] [place] [address] 02/20/2025 9:30 AM CDT [facility] - Neurology - [place] [place] [address] Jessenia Ward, RUBBER INSULATOR, FRETTED INSTRUMENT REPAIRER [address] [place] [address] Health Maintenance Due Date Last Done Comments Zoster Immunization (2 of 3) 03/24/2013 01/27/2013 Respiratory Syncytial Virus (RSV) Immunization (Adult) (1 - 1-dose 75+ series) 01/15/2023 DEXA Bone Density 08/09/2023 08/09/2021, , 04/23/2017, Additional history exists SARS-COV-2 Immunization ( season) 2024 07/01/2021, 11/06/2020, 10/09/2020 Pneumococcal Immunization (50+ years) Completed 09/23/2016, 01/27/2013 Pneumococcal Immunization Combined Discontinued 09/23/2016, 01/27/2013 Mammogram Discontinued 03/08/2020, 01/28, 09/25/2016 Hepatitis C Virus (HCV) Screening Completed 07/31/2023 Immunochemical Fecal Occult Blood Discontinued 09/26/2023, 08/16/2018 Colonoscopy High Risk Discontinued 12/03/2023, 013 Colonoscopy Discontinued 12/03/2023, 11/2023, 07/22/2012 Colorectal Cancer Screening Discontinued Influenza Immunization Completed , 07/31/2023, 04/22/2022, Additional history exists Cologuard Discontinued Hepatitis B Immunization Aged Out No longer eligible based on patient's age to complete this topic Meningococcal Immunization (ACWY) Aged Out No longer eligible based on patient's age to complete this topic Rotavirus Immunization Aged Out No lo nger eligible based on patient's age to complete this topic TdaP Immunization Discontinued Medical Devices Implanted Type Area Vest Backer Device Identifier Shelf Expiration Date Model / Serial / Lot Bsplt Tib Trthln 3 Kn Prm Beaded Prpt - [id number] Implanted:Qty: 1 on 06/27/2015 by [facility] IMPLANT Right: Knee [employer] / [employer] 01/27/2020 5526-B-30 0 / / [id number] Ins Tib 3 9mm Kn X3 Cndrl Stab Trthln - [id number] Implanted:Qty: 1 on 06/27/2015 by Benji [facility]key [facility] at [facility] IMPLANT Right: Knee [employer] / [employer] 01/27/2020 5531-G-30 9 / / [id number] Bioinductive Arthroscopic Generation 3 Medium - [id number] Implanted:Qty: 1 on 11/30/2017 by Blair Paris MD at [facility] IMPLANT Left: Shoulder [employer]iñ[employer] 10/27/2019 2169-2 / 2169-2 / [id number] Tendon Staple Implant - [id number] Implanted:Qty: 1 on 11/30/2017 by Blair Paris MD at [facility] IMPLANT Left: Shoulder [employer] 05/18/2018 2504-1 / 2504-1 / [id number] [place] Bone 3 W/Arthroscopic Delivery System - [id number] Implanted:Qty: 1 on 11/30/2017 by Blair Paris MD at [facility] IMPLANT Left: Shoulder [employer] 06/30/2018 2503-A / 2503-A / [id number] Asym Metal Backed Patella Implanted:Qty: 1 on 06/27/2015 by Benji Dickey MD at [facility] Right: Knee [employer] / OR[employer] 11/26/2019 [id number] / / [id number] Cruciate Retaining Femoral Implanted:Qty: 1 on 06/27/2015 by Benji Dickey MD at [facility] Right: Knee [employer] / ORTH[employer] 04/03/2020 / / [id number] Procedures Procedure Name Priority Date/Time Associated Diagnosis Comments OUTPATIENT ABO & RH W/ ANTIBODY SCREEN 07/11/2024 12:00 AM COSMETOLOGY INSTRUCTOR PROTIME (PT) (PROTHROMBIN TIME) 07/11/2024 12:00 AM COSMETOLOGY INSTRUCTOR URINALYSIS (UA) RANDOM 07/11/2024 12:00 AM COSMETOLOGY INSTRUCTOR COMPLETE BLOOD COUNT (CBC) WITH DIFF 07/11/2024 12:00 AM COSMETOLOGY INSTRUCTOR APTT (PTT) 07/11/2024 12:00 AM COSMETOLOGY INSTRUCTOR BASIC METABOLIC PANEL W/ CALCIUM TOTAL 07/11/2024 12:00 AM COSMETOLOGY INSTRUCTOR CULTURE, URINE 07/11/2024 12:00 AM COSMETOLOGY INSTRUCTOR STOOL, OCCULT BLOOD, DIAGNOSTIC, VIA GUAIAC STAT 09/26/2023 11:05 AM CDT HEPATITIS C ANTIBODY Routine 07/31/2023 1:37 PM COSMETOLOGY INSTRUCTOR Encounter for hepatitis C screening test for low risk patient [facility] BONE DENSITOMETRY AXIAL SKELETON Routine 08/09/2021 9:35 AM COSMETOLOGY INSTRUCTOR Postmenopausal [facility] DIAG BILATERAL DIGITAL W CAD W BRI Routine 03/08/2020 11:00 AM CDT Encounter for screening mammogram for breast cancer Abnormal mammogram COLONOSCOPY Routine 07/22/2012 from Last 3 Months or Most Recently Relevant to Health Maintenance Results * URINALYSIS (UA) RANDOM (07/11/2024 12:00 AM COSMETOLOGY INSTRUCTOR) 07/11/2024 us Provider Scan URINE ORDERABLES Final Result Performing Organization Address [facility] de Phone Number SCAN * APTT (PTT) (07/11/2024 12:00 AM COSMETOLOGY INSTRUCTOR) 07/11/2024 us Provider Scan HEMATOLOGY ORDERABLES Final Resu lt Performing Organization Address [facility] de Phone Number SCAN * PROTIME (PT) (PROTHROMBIN TIME) (07/11/2024 12:00 AM COSMETOLOGY INSTRUCTOR) INR 0.9 SCAN 07/11/2024 us Provider Scan HEMATOLOGY ORDERABLES Final Resu lt Performing Organization Address [facility] de Phone Number SCAN * OUTPATIENT ABO & RH W/ ANTIBODY SCREEN (07/11/2024 12:00 AM COSMETOLOGY INSTRUCTOR) 07/11/2024 us Provider Scan BLOOD BANK ORDERABLES Final Resu lt Performing Organization Address [facility] de Phone Number SCAN * CULTURE, URINE (07/11/2024 12:00 AM COSMETOLOGY INSTRUCTOR) 07/11/2024 us Provider Scan MICROBIOLOGY - GENERAL ORDERABLE S Final Result Performing Organization [facility] de Phone Number SCAN * COMPLETE BLOOD COUNT (CBC) WITH DIFF (07/11/2024 12:00 AM COSMETOLOGY INSTRUCTOR) 07/11/2024 us Provider Scan HEMATOLOGY ORDERABLES Final Resu lt Performing Organization Address [facility]/State/ZIP Co de Phone Number SCAN * BASIC METABOLIC PANEL W/ CALCIUM TOTAL (07/11/2024 12:00 AM COSMETOLOGY INSTRUCTOR) 07/11/2024 us Provider Scan CHEMISTRY ORDERABLES Final Resul t Performing Organization Address [facility] de Phone Number SCAN * Stool, Occult Blood, Diagnostic (09/26/2023 11:05 AM CDT) OCCULT BLOOD DIAG, GI BLEED Negative Negative 09/26/2023 11:15 AM CDT [facility] Stool STOOL SPECIMEN / Unknown Non-Phlebotomy Collection / Unknown 09/26/2023 11:05 AM CDT 09/26/2023 11:12 AM CDT Roque Hunter RUBBER INSULATOR, COLLET MAKER BODY FLUIDS & STOOLS OR DERABLES Final Result Performing Organization Address [facility] de Phone Number [facility] [address] [place] [address] * HEPATITIS C ANTIBODY (07/31/2023 1:37 PM COSMETOLOGY INSTRUCTOR) [facility] hepatitis C antibody 0.06 <1 S/CO [facility] [id number] 07/31/2023 9:41 PM COSMETOLOGY INSTRUCTOR [facility] Comment: Signal/Cutoff ratio ??< 0.79 is Nondetected Signal/Cutoff ratio 0.80-0.99 is Grayzone Signal/Cutoff ratio > 0.99 is Detected Supplemental assays are recommended if signal/cutoff ratio is >/=1.00. ??Signal/cutoff ratio result >/= 5.00 is 97% predictive of positivity for recombinant immunoblot assay (RIBA) and will be reported to the [place] Department of Public Health as required. Blood Venipuncture / Unknown 07/31/2023 1:37 PM COSMETOLOGY INSTRUCTOR 07/31/2023 1:37 PM COSMETOLOGY INSTRUCTOR Darwin Marti MD CHEMISTRY ORDERABLES Sindhu l Result [facility] [address] [place] [address], * [facility] BONE DENSITOMETRY AXIAL SKELETON (08/09/2021 9:35 AM COSMETOLOGY INSTRUCTOR) Anatomical Region Laterality Modality BODY N/A Other 08/09/2021 10:0 9 AM COSMETOLOGY INSTRUCTOR Impressions 08/09/2021 10:12 AM COSMETOLOGY INSTRUCTOR IMPRESSION: Low bone mass Fracture risk assessment (FRAX): ? 10 year risk for a major osteoporotic fracture is 14.5 % ? 10 year risk for a hip fracture is 3.2 % The FRAX tool has not been validated in patients currently or previously treated with pharmacotherapy for osteoporosis. ??In such patients, clinical judgement must be exercised in interpreting FRAX scores as the fracture risk may be overestimated. REFERENCE: Bone mineral density: ? Normal (T-score above or = -1.0) ? Low bone mass ??(T-score between -1.0 and -2.5) replaces the previously used term osteopenia ? Osteoporosis (T-score = or below -2.5) Medical evaluation for secondary causes of low bone mineral density may be appropriate. FRAX is a World Health Organization validated fracture risk assessment tool that calculates a person's 10 year probability of a major osteoporosis related fracture and hip fracture. ??According to the National Osteoporosis Foundation guidelines, postmenopausal women and men age 50 or older with low bone mass and a 10 year probability of a major osteoporosis related fracture = or greater than 20% or a 10 year probability of a hip fracture = or greater than 3% should be considered for treatment. For further information, including treatment recommendations, please refer to the 2013 ISCD Official Positions (http://www.iscd.org) and the NOF's Clinician's Guide to Prevention and Treatment of Osteoporosis (http://www.nof.org/professionals/clinical-guidelines) Narrative 08/09/2021 10:12 AM COSMETOLOGY INSTRUCTOR EXAM DESCRIPTION: ?? JAMIE BONE DENSITOMETRY AXIAL SKELETON REASON FOR STUDY: ?? 71 y/o ?? year old ?? F ??with given history of screening. 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 [employer] (S/N [id number]) CLINICAL INFORMATION: Current height: ?? 5 foot 3.5 ??inches ? Maximum height: 5 foot 4 inches ? Weight: 180 pounds Risk factors: Rheumatoid arthritis. ??Secondary osteoporosis. COMPARISON: ?? 12/25/2010 FINDINGS: AP LUMBAR SPINE L1-L4: Total BMD is ?? 0.942 ??g/cm2 T-score is -2.0 Most recent prior BMD was 1.094 g/cm2 There has been a -13.9% change in BMD which is statistically significant. LEFT HIP: Current Total BMD is 0.834 g/cm2 T-score is -1.4 Most recent prior Total BMD was 0.847 g/cm2 There has been a -1.5% change in BMD which is not statistically significant. Current femoral neck BMD is 0.791 g/cm2 T-score is -1.8 THIS IS AN ELECTRONICALLY VERIFIED FINAL REPORT 08/09/2021 10:09 AM - Electronically signed by ??Blair Alcaraz M.D. AG: AG D: ??08/09/2021 10:09 AM T: ??08/09/2021 10:09 AM Report ID: [id number] Reading Location: ??[id number] Procedure Note Blair Alcaraz MD - 08/09/2021 EXAM DESCRIPTION: JAMIE BONE DENSITOMETRY AXIAL SKELETON REASON FOR STUDY: 71 y/o year old F with given history of screening. Vest Backer/Model: [employer] (S/N [id number]) CLINICAL INFORMATION: Current height: 5 foot 3.5 inches Maximum height: 5 foot 4 inches Weight: 180 pounds Risk factors: Rheumatoid arthritis. Secondary osteoporosis. COMPARISON: 12/25/2010 FINDINGS: AP LUMBAR SPINE L1-L4: Total BMD is 0.942 g/cm2 T-score is -2.0 Most recent prior BMD was 1.094 g/cm2 There has been a -13.9% change in BMD which is statistically significant. LEFT HIP: Current Total BMD is 0.834 g/cm2 T-score is -1.4 Most recent prior Total BMD was 0.847 g/cm2 There has been a -1.5% change in BMD which is not statistically significant. Current femoral neck BMD is 0.791 g/cm2 T-score is -1.8 THIS IS AN ELECTRONICALLY VERIFIED FINAL REPORT 08/09/2021 10:09 AM - Electronically signed by Blair Alcaraz M.D. AG: RHIANNON Report ID: [id number] Reading Location: [place] [address] IMPRESSION: Low bone mass Fracture risk assessment (FRAX): 10 year risk for a major osteoporotic fracture is 14.5 % 10 year risk for a hip fracture is 3.2 % The FRAX tool has not been validated in patients currently or previously treated with pharmacotherapy for osteoporosis. In such patients, clinical judgement must be exercised in interpreting FRAX scores as the fracture risk may be overestimated. REFERENCE: Bone mineral density: Normal (T-score above or = -1.0) Low bone mass (T-score between -1.0 and -2.5) replaces the previously used term osteopenia Osteoporosis (T-score = or below -2.5) Medical evaluation for secondary causes of low bone mineral density may be appropriate. FRAX is a World Health Organization validated fracture risk assessment tool that calculates a person's 10 year probability of a major osteoporosis related fracture and hip fracture. According to the National Osteoporosis Foundation guidelines, postmenopausal women and men age 50 or older with low bone mass and a 10 year probability of a major osteoporosis related fracture = or greater than 20% or a 10 year probability of a hip fracture = or greater than 3% should be considered for treatment. For further information, including treatment recommendations, please refer to the 2013 ISCD Official Positions (http://www.iscd.org) and the NOF's Clinician's Guide to Prevention and Treatment of Osteoporosis (http://www.nof.org/professionals/clinical-guidelines) us Luann Cox MD IMKaleb DEXA ORDERABLES Final Re sult * JAMIE DIAG BILATERAL DIGITAL W CAD W BRI (03/08/2020 11:00 AM CDT) Anatomical Region Laterality Modality breast Bilateral Mammography 03/08/2020 10:1 7 AM CDT Narrative 03/09/2020 6:46 AM CDT - JAMIE DIAG BILATERAL DIGITAL W CAD W BRI - JAMIE US BREAST LIMITED LT BILATERAL DIGITAL DIAGNOSTIC MAMMOGRAM 3D/2D WITH CAD AND TARGETED LEFT ULTRASOUND WITH MEDIOLATERAL OBLIQUE CRANIOCAUDAL: 03/08/2020 The study was acquired using digital technology and interpreted from soft copy. ?? Current study was also evaluated with ICAD version 7.2. ?? CLINICAL: Diagnostic study. Focal pain left lateral breast. No personal history of cancer. Paternal aunt had breast cancer. ?? COMPARISONS: Comparison is made to exams dated: ??02/18/2018, 09/25/2016, and 04/25/2014 [facility]. ?? BREAST TISSUE:The tissue of both breasts is predominantly fatty. ?? FINDINGS: No significant masses, calcifications, or other findings are seen in either breast on the mammogram or left targeted ultrasound. ??No lesion is seen underlying the area of pain at the 2 o'clock position of the left breast, 13 cm from the nipple. ?? IMPRESSION: OVERALL STUDY BIRADS: 1 NEGATIVE There is no mammographic or targeted sonographic evidence of malignancy. A 1 year screening mammogram is recommended. ?? The patient has been or will be contacted. ?? Electronically signed by: Gracie Patel M.D. ? ll/:03/08/2020 11:16:23 ?? Metal Die Finisher: Landy Vance)(Mag), [facility] letter sent: Normal Exam ?? Reading location: BLUE OVERALL STUDY BIRADS: 1 Negative Procedure Note Gracie Patel MD - 03/09/2020 - JAMIE DIAG BILATERAL DIGITAL W CAD W BRI - JAMIE US BREAST LIMITED LT BILATERAL DIGITAL DIAGNOSTIC MAMMOGRAM 3D/2D WITH CAD AND TARGETED LEFT ULTRASOUND WITH MEDIOLATERAL OBLIQUE CRANIOCAUDAL: 03/08/2020 The study was acquired using digital technology and interpreted from soft copy. Current study was also evaluated with ICAD version 7.2. CLINICAL: Diagnostic study. Focal pain left lateral breast. No personal history of cancer. Paternal aunt had breast cancer. COMPARISONS: Comparison is made to exams dated: 02/18/2018, 09/25/2016, [facility] BREAST TISSUE:The tissue of both breasts is predominantly fatty. FINDINGS: No significant masses, calcifications, or other findings are seen in either breast on the mammogram or left targeted ultrasound. No lesion is seen underlying the area of pain at the 2 o'clock position of the left breast, 13 cm from the nipple. IMPRESSION: OVERALL STUDY BIRADS: 1 NEGATIVE There is no mammographic or targeted sonographic evidence of malignancy. A 1 year screening mammogram is recommended. The patient has been or will be contacted. Electronically signed by: Gracie Patel M.D. ll/:03/08/2020 11:16:23 Metal Die Finisher: Landy Vance)(M), [facility] letter sent: Normal Exam Reading location: BLUE OVERALL STUDY BIRADS: 1 Negative us Luann Cox MD IMG MAMMO ORDERABLES Final R esult * HM COLONOSCOPY (07/22/2012) us Any Lewis MD PROCEDURE/MINOR SURGIC AL ORDERABLES Final Result from Last 3 Months or Most Recently Relevant to Health Maintenance Insurance MEDICARE [facility] Advance Directives Documents on File Type Date Recorded Patient Piano And Organ Refinisher Expl anation POLST/POST/[place] DNR 08/19/2018 9:34 AM polst 08/18/2018 Power of Corporate Security Manager for Health Care 08/18/2018 1:08 PM POA-HC 08/18/2018 * Full Code (Latest Code Status on File) Date Activated Date Inactivated Comments 09/26/2023 3:32 PM 10/01/2023 1:54 PM CPR-Full Christa tment: FULL ARREST: Attempt Resuscitation/CPR wit intubation and mechanical ventilation. PRE-ARREST: Use entire range of life support measures to stabilize the patient. * Full Code Date Activated Date Inactivated Comments 11/29/2019 8:56 AM 01/30/2023 9:20 AM * Full Code Date Activated Date Inactivated Comments 11/18/2019 11:58 PM 11/20/2019 4:14 PM CPR-Full Tr eatment: FULL ARREST: Attempt Resuscitation/CPR wit intubation and mechanical ventilation. PRE-ARREST: Use entire range of life support measures to stabilize the patient. * Full Code Date Activated Date Inactivated Comments 08/16/2018 2:55 PM 08/18/2018 2:12 PM CPR-Full Giovanni atment: FULL ARREST: Attempt Resuscitation/CPR wit intubation and mechanical ventilation. PRE-ARREST: Use entire range of life support measures to stabilize the patient. * Full Code Date Activated Date Inactivated Comments 11/02/2015 11:03 PM 11/05/2015 5:55 PM CPR-Full Christa tment: FULL ARREST: Attempt Resuscitation/CPR wit intubation and mechanical ventilation. PRE-ARREST: Use entire range of life support measures to stabilize the patient. Care Teams Rose Grader Relationship Specialty Start Date End Date Darwin Marti MD [address] [place] [address] PCP - General Internal Medicine 07/31/23 Blair Paris MD [address] [facility], [address] [place] [address] Consulting Physician Orthopaedic Sports Medicine 07/31/23 Hao Silvestre MD [address] [place], [place] [id number] Consulting Physician Neurological Surgery 07/31/23 Carlos Dailey MD #[address] [address] Consulting Physician Colon and Rectal Surgery 10/26/23 Saida Mckeon APRN, COLLET MAKER [address] [place] [address] Nurse Practitioner Gastroenterology 10/26/23 Jessenia Ward APRN, FRETTED INSTRUMENT REPAIRER [address] [place] [address] Nurse Practitioner Advanced Practice Nurse 11/17/23 Dominic Wang MD [place], [place] Consulting Physician Pain Medicine-Pain Management 02/09/24 Buthc Muñiz MD #[address] [place] [address] Consulting Physician Neurology 02/23/24
--- OUTSIDE RECORDS SUMMARY | 2024-07-21 15:12 | XMS_ITS ---
Care Plan - [facility] Created on: July 21, 2024 DIPESH BARNES : 1950 Sex: Female Author Organization [facility] Address [address] [place] [address] Phone Care Team Providers Care Roll Winder Name Role Phone TERESA DUKES Primary Care Provider [phone]
--- OUTSIDE RECORDS SUMMARY | 2024-07-21 15:12 | XMS_ITS | Encounter Summary ---
Author Organization [facility] Address [address] [place] [address] Phone Care Team Providers Care Consultant Intern Name Role Phone Luann Cox MD Primary Care Provider + [phone] Josiane Pacheco MD Primary Care Provider + [phone] Blair Paris MD Unavailable +[phone] Jose A Espinosa MD Unavailable [phone] Darwin Marti MD Primary Care Provider [phone] Hao Silvestre MD Unavailable +[phone] Carlos Dailey MD Unavailable Saida Mckeon APRN, CARPENTER INSPECTOR Unavailable Jessenia Ward APRN, MUSICIAN INSTRUMENTAL Unavailable +- [phone] Hao Silvestre MD Unavailable +[phone] Dominic Wang MD Unavailable [phone] Butch Muñiz MD Unavailable +[phone] Reason for Visit * Reason Comments Medication Refill Encounter Details Date Type Department Care Team (Late st Contact Info) Description 11/29/2021 [facility] [place] [address] [place] [phone] Luann Cox MD [address] [place] [address] Medication Refill Social History Tobacco [...] Telephone Encounter - Racquel Campos RN - 11/29/2021 10:15 AM CDT Medication failed the protocol, provider to review and approve the medication order if appropriate. Requested Prescriptions Pending Prescriptions Disp Refills clopidogrel (PLAVIX) 75 MG Tablet [Pharmacy Med Name: Clopidogrel Bisulfate 75 MG Oral Tablet] 90 Tablet 0 Sig: Take 1 tablet by mouth once daily Plavix Protocol Passed - 11/29/2021 10:11 AM Passed - CBC on record in past 12 months WBC Date Value Ref Range Status 03/05/2021 5.34 4.00 - 12.00 10(3)/mcL Final WBC ESTERASE Date Value Ref Range Status 11/18/2019 Negative Negative Final RBC Date Value Ref Range Status 03/05/2021 4.33 3.80 - 5.30 10(6)/mcL Final HEMATOCRIT (HCT) Date Value Ref Range Status 03/05/2021 41.2 36.0 - 47.0 % Final HEMOGLOBIN (HGB) Date Value Ref Range Status 03/05/2021 13.1 12.0 - 15.8 g/dL Final MCV Date Value Ref Range Status 03/05/2021 95.2 82.0 - 96.0 fL Final MCH Date Value Ref Range Status 03/05/2021 30.3 26.0 - 34.0 pg Final MCHC Date Value Ref Range Status 03/05/2021 31.8 31.0 - 36.0 g/dL Final Passed - Visit with relevant provider in past 12 months or upcoming 90 days Recent Visits Date Type Provider Dept 06/27/21 Office Visit Luann Cox MD [facility] 03/07/21 Office Visit Lu[facility] MD [facility] Showing recent visits within past 365 days and meeting all other requirements Future Appointments Date Type Provider Dept 12/10/21 Appointment Lab, [facility] [facility] 12/16/21 Appointment Luann Cox MD [facility] Showing future appointments within next 90 days and meeting all other requirements meclizine (ANTIVERT) 25 MG Tablet [Pharmacy Med Name: Meclizine HCl 25 MG Oral Tablet] 270 Tablet 0 Sig: Take 1 tablet by mouth three times daily as needed There is no refill protocol information for this order hydroCHLOROthiazide 25 MG Tablet [Pharmacy Med Name: hydroCHLOROthiazide 25 MG Oral Tablet] 90 Tablet 0 Sig: Take 1 tablet by mouth once daily Diuretics Protocol Passed - 11/29/2021 10:11 AM Passed - Serum potassium on record in past 12 months POTASSIUM Date Value Ref Range Status 10/14/2021 4.0 3.5 - 5.1 mmol/L Final Passed - Serum sodium on record in past 12 months SODIUM Date Value Ref Range Status 10/14/2021 140 136 - 144 mmol/L Final Passed - Blood pressure on record in past 12 months Clinician-entered: BP Readings from Last 3 Encounters: 06/27/21 124/80 03/07/21 120/72 09/06/20 140/80 Patient-entered: No data recorded Passed - Visit with relevant provider in past 12 months or upcoming 90 days Recent Visits Date Type Provider Dept 06/27/21 Office [facility]21 [facility] Showing recent visits within past 365 days and meeting all other requirements Future Appointments Date Type Provider Dept 12/10/21 [facility]21 Appointment Luann Cox MD [facility] Showing future appointments within next 90 days and meeting all other requirements Passed - GFR on record in past 12 months GFR, EST. NONAFRICAN Date Value Ref Range Status 10/14/2021 >60 >=60 Final documented in this encounter Plan of Treatment Upcoming Encounters Date Type Department Care Team (Late st Contact Info) Description 08/11/2024 10:00 AM MAIL HANDLER SORTER Office Visit [facility] - [place] Care [place] [address] [place] [address] Darwin Marti MD [address] [place] [address] 02/20/2025 9:30 AM CDT Office Visit [facility] - Neurology - [place] [address] [place] [address] Jessenia Ward APRN, MUSICIAN INSTRUMENTAL [address] [place] [address] documented as of this encounter Visit Diagnoses Diagnosis Essential hypertension Unspecified essential hypertension documented in this encounter Additional Health Concerns Infection Onset Date Last Indicated Resolved Time ESBL 08/16/2018 08/16/2018 09/28/2023 9:03 AM CDT COVID - 19 03/09/2023 03/09/2023 03/19/2023 12:1 6 AM CDT Respiratory Rule-Out 03/09/2023 03/09/2023 023 2:09 AM CDT COVID - 19 05/07/2023 05/07/2023 05/07/2023 9:50 AM MAIL HANDLER SORTER COVID - 19 Confirmed 05/07/2023 05/07/2023 023 12:16 AM MAIL HANDLER SORTER C. difficile Rule-Out 09/24/2023 09/24/20232023 3:41 PM CDT COVID - 19 09/24/2023 09/24/2023 09/24/2023 11:3 2 AM CDT C. difficile Rule-Out 09/27/2023 09/27/20232023 2:13 PM CDT COVID - 19 02/23/2024 02/23/2024 02/23/2024 11:2 8 AM CDT Respiratory Rule-Out 02/23/2024 02/23/2024 024 11:30 AM CDT Assessment Noted Time PHQ-9 Depression Total Score: 2 07/14/19 20 10:00 AM MAIL HANDLER SORTER documented as of this encounter Care Teams Consultant Intern Relationship Specialty Start Date End Date Luann Cox MD PCP - General Family Medicine 04/15/15 11/02/22 Josiane Pacheco MD [address] [place] [address] PCP - General Family Medicine 11/20/22 07/30/23 Darwin Marti MD [address] [place] [address] PCP - General Internal Medicine 07/31/23 Blair Paris MD [address] [place] [address] Consulting Physician Orthopaedic Sports Medicine 07/31/23 Jose A Espinosa MD [address] [address] Consulting Physician Pain Medicine-Pain Management 07/31/23 02/08/24 Hao Silvestre MD [address] [address] Consulting Physician Neurological Surgery 07/31/23 Carlos Dailey MD #[address] [address] Consulting Physician Colon and Rectal Surgery 10/26/23 Saida Mckeon APRN, CARPENTER INSPECTOR [address] [place] [address] Nurse Practitioner Gastroenterology 10/26/23 Jessenia Ward APRN, MUSICIAN INSTRUMENTAL [address] [place] [address] Nurse Practitioner Advanced Practice Nurse 11/17/23 Hao Silvestre MD [address] [address] Consulting Physician Neurological Surgery 02/09/2401/27 Dominic Wang MD [place], [place] Consulting Physician Pain Medicine-Pain Management 02/09/24 Butch Muñiz MD [address] [place] [address] Consulting Physician Neurology 02/23/24 documented as of this encounter
--- OUTSIDE RECORDS SUMMARY | 2024-07-21 15:12 | XMS_ITS | Encounter Summary ---
Author Organization [facility] Address [address] [place] [address] Phone Care Team Providers Care Food Safety Technician Name Role Phone Luann Cox MD Primary Care Provider + [phone] Josiane Pacheco MD Primary Care Provider + [phone] Blair Paris MD Unavailable [phone] Jose A Espinosa MD Unavailable [phone] Darwin Marti MD Primary Care Provider [phone] Hao Silvestre MD Unavailable +[phone] Carlos Dailey MD Unavailable Saida Mckeon APRN, WILDLAND FIRE OPERATIONS SPECIALIST Unavailable Jessenia Ward APRN, UTILITY WORKER PRODUCTION Unavailable +- [phone] Hao Silvestre MD Unavailable +[phone] Dominic Wang MD Unavailable [phone] Butch Muñiz MD Unavailable +[phone] Reason for Visit * Reason Comments Medication Refill Encounter Details Date Type Department Care Team ([facility] Contact Info) Description 05/12/[address] [facility] [place] Primary Care - [place] [address] [place] [phone] Luann Cox MD [address] [place] [address] Medication Refill Social History Tobacco [...] encounter Miscellaneous Notes * Telephone Encounter - Genevieve Serrato RN - 05/13/2021 2:48 PM CST Per nursing clinical judgement, provider to review and approve the medication(s) order(s) if appropriate. Requested Prescriptions Pending Prescriptions Disp Refills meclizine (ANTIVERT) 25 MG Tablet [Pharmacy Med Name: Meclizine HCl 25 MG Oral Tablet] 270 Tablet 0 Sig: Take 1 tablet by mouth three times daily as needed There is no refill protocol information for this order YER OPERATOR documented in this encounter Plan of Treatment Upcoming Encounters Date Type Department Care Team ([facility] Contact Info) Description 08/11/2024 10:00 AM SPRAYER OPERATOR Office Visit [facility] - Primary Care - [place] [address] [place] [address] Darwin Marti MD [address] [place] [address] 02/20/2025 9:30 AM CDT [facility] [place] [address] [place] [address] Jessenia Ward, CABIN SUPERVISOR, UTILITY WORKER PRODUCTION [address] [place] [address] documented as of this encounter Visit Diagnoses Not on filedocumented in this encounter Additional Health Concerns Infection Onset Date Last Indicated Resolved Time ESBL 08/16/2018 08/16/2018 09/28/2023 9:03 AM CDT COVID - 19 03/09/2023 03/09/2023 03/19/2023 12:1 6 AM CDT Respiratory Rule-Out 03/09/2023 03/09/2023 023 2:09 AM CDT COVID - 19 05/07/2023 05/07/2023 05/07/2023 9:50 AM SPRAYER OPERATOR COVID - 19 Confirmed 05/07/2023 05/07/2023 023 12:16 AM SPRAYER OPERATOR C. difficile Rule-Out 09/24/2023 09/24/20232023 3:41 PM CDT COVID - 19 09/24/2023 09/24/2023 09/24/2023 11:3 2 AM CDT C. difficile Rule-Out 09/27/2023 09/27/20232023 2:13 PM CDT COVID - 19 02/23/2024 02/23/2024 02/23/2024 11:2 8 AM CDT Respiratory Rule-Out 02/23/2024 02/23/2024 024 11:30 AM CDT Assessment Noted Time PHQ-9 Depression Total Score: 2 07/14/19 20 10:00 AM SPRAYER OPERATOR documented as of this encounter Care Teams Food Safety Technician Relationship Specialty Start Date End Date Luann Cox MD PCP - General Family Medicine 04/15/15 11/02/22 Josiane Pacheco MD [address] [place] [address] PCP - General Family Medicine 11/20/22 07/30/23 Darwin Marti MD [address] [place] [address] PCP - General Internal Medicine 07/31/23 Blair Paris MD 4 [facility] [address] [place] [address] Consulting Physician Orthopaedic Sports Medicine 07/31/23 Jose A Espinosa MD [address] [address] Consulting Physician Pain Medicine-Pain Management 07/31/23 02/08/24 Hao Silvestre MD [address] [address] Consulting Physician Neurological Surgery 07/31/23 Carlos Dailey MD [address] [address] Consulting Physician Colon and Rectal Surgery 10/26/23 Saida Mckeon APRN, WILDLAND FIRE OPERATIONS SPECIALIST [address] [place] [address] Nurse Practitioner Gastroenterology 10/26/23 Jessenia Ward APRN, UTILITY WORKER PRODUCTION [address] [place] [address] Nurse Practitioner Advanced Practice Nurse 11/17/23 Hao Silvestre MD [address] [address] Consulting Physician Neurological Surgery 02/09/2401/27 Dominic Wang MD [place], [place] Consulting Physician Pain Medicine-Pain Management 02/09/24 Butch Muñiz MD [address] [place] [address] Consulting Physician Neurology 02/23/24 documented as of this encounter
--- OUTSIDE RECORDS SUMMARY | 2024-07-21 15:12 | XMS_ITS | Encounter Summary ---
Author Organization [facility] Address [address] [place] [address] Phone Care Team Providers Care Aluminum Siding Applicator Name Role Phone Blair Paris MD Unavailable [phone] Jose A Espinosa MD Unavailable [phone] Darwin Marti MD Primary Care Provider [phone] Hao Silvestre MD Unavailable [phone] Carlos Dailey MD Unavailable Saida Mckeon APRN, GAS APPLIANCE MECHANIC Unavailable Jessenia Ward APRN, BINDERY MACHINE TENDER Unavailable + [phone] Hao Silvestre MD Unavailable [phone] Dominic Wang MD Unavailable [phone] Butch Muñiz MD Unavailable Reason for Visit * Reason Comments Medication Refill Encounter Details Date Type Department Care Team (Late Contact Info) Description [facility] [place] [address] [place] [phone] Josiane Pacheco MD [address] [place] [address] Medication Refill Social History Tobacco Use Types Packs/Day Years Used Date Smoking Tobacco: Former Cigarettes Q uit: 04/09/2005 Smokeless Tobacco: Never Alcohol Use Standard Drinks/Week Comments No 0 (1 standard drink = 0.6 oz pur e alcohol) PHQ-2 Answer Date Recorded Total Score - Questions 1-9 0 07/2023 Sexually Active Control Partners Comments Not Currently [...] (Late Contact Info) Description 08/11/2024 10:00 AM CHILD PROTECTION SPECIALIST Office Visit [facility] - [place] [address] [place] [address] Darwin Marti MD [address] [place] [address] 02/20/2025 9:30 AM CDT Office Visit [facility] Neurology [facility] [address] [place] [address] Jessenia Ward, TALENT SOURCING SPECIALIST, BINDERY MACHINE TENDER [address] [place] [address] documented as of this encounter Visit Diagnoses Not on filedocumented in this encounter Additional Health Concerns Infection Onset Date Last Indicated Resolved Time ESBL 08/16/2018 08/16/2018 09/28/2023 9:03 AM CDT C. difficile Rule-Out 09/24/2023 09/24/20232023 3:41 PM CDT COVID - 19 09/24/2023 09/24/2023 09/24/2023 11:3 2 AM CDT C. difficile Rule-Out 09/27/2023 09/27/20232023 2:13 PM CDT COVID - 19 02/23/2024 02/23/2024 02/23/2024 11:2 8 AM CDT Respiratory Rule-Out 02/23/2024 02/23/2024 024 11:30 AM CDT Assessment Noted Time PHQ-9 Depression Total Score: 0 07/31/19 12:53 PM CHILD PROTECTION SPECIALIST documented as of this encounter Care Teams Aluminum Siding Applicator Relationship Specialty Start Date End Date Darwin Marti MD [address] [place] [address] PCP - General Internal Medicine 07/31/23 Blair Paris MD 4 [facility] [address] [place] [address] Consulting Physician Orthopaedic Sports Medicine 07/31/23 Jose A Espinosa MD 2 [facility] [address] [place] [address] Consulting Physician Pain Medicine-Pain Management 07/31/23 02/08/24 Hao Silvestre MD [address] [place] [address] Consulting Physician Neurological Surgery 07/31/23 Carlos Dailey MD [address] [address] Consulting Physician Colon and Rectal Surgery 10/26/23 Saida Mckeon APRN, GAS APPLIANCE MECHANIC [address] [place] [address] Nurse Practitioner Gastroenterology 10/26/23 Jessenia Ward APRN, BINDERY MACHINE TENDER [address] [place] [address] Nurse Practitioner Advanced Practice Nurse 11/17/23 Hao Silvestre MD [address] [address] Consulting Physician Neurological Surgery 02/09/2401/27 Dominic Wang MD [place], [place] Consulting Physician Pain Medicine-Pain Management 02/09/24 Butch Muñiz MD [address] [place] [address] Consulting Physician Neurology 02/23/24 documented as of this encounter
--- OUTSIDE RECORDS SUMMARY | 2024-07-21 15:12 | XMS_ITS | Encounter Summary ---
Author Organization [facility] Address [address] [place] [address] Phone Care Team Providers Care Tooth Clerk Name Role Phone Josiane Pacheco MD Primary Care Provider [phone] Blair Paris MD Unavailable [phone] Jose A Espinosa MD Unavailable [phone] Darwin Marti MD Primary Care Provider [phone] Hao Silvestre MD Unavailable [phone] Carlos Dailey MD Unavailable Saida Mckeon APRN, CNC SERVICE ENGINEER Unavailable Jessenia Ward APRN, [facility] Unavailable + [phone] Hao Silvestre MD Unavailable Domiinc Wang MD Unavailable [phone] Butch Muñiz MD Unavailable Reason for Visit * Reason Comments Medication Refill Encounter Details Date Type Department Care Team ([facility] Contact Info) Description 03/31/2023 Refill [facility] [address] [place] [phone] Josiane Pacheco MD [address] [place] [address] Medication Refill Social History Tobacco Use Types [...] suspected to have Coronavirus/COVID-19? No / Unsure 03/09/2023 1:33 AM CDT documented as of this encounter Miscellaneous Notes * Telephone Encounter - Margaret Magdaleno, RN - 03/31/2023 9:45 AM CDT The original prescription was discontinued on 01/29/2023 by Josiane Pacheco MD for the following reason: Med List Clean Up documented in this encounter Plan of Treatment Upcoming Encounters Date Type Department Care Team ([facility] Contact Info) Description 08/11/2024 10:00 AM CLASSIFIED ADVERTISING MANAGER [facility] [address] [place] [address] Darwin Marti MD [address] [place] [address] 02/20/2025 9:30 AM CDT Office Visit [facility] - Neurology - [place] [address] [place] [address] Jessenia Ward, SPRAY PAINTER HELPER, CONTRACT NEGOTIATION SPECIALIST [address] [place] [address] documented as of this encounter Visit Diagnoses Diagnosis Spinal stenosis, lumbar region, with neurogenic claudication documented in this encounter Additional Health Concerns Infection Onset Date Last Indicated Resolved Time ESBL 08/16/2018 08/16/2018 09/28/2023 9:03 AM CDT COVID - 19 05/07/2023 05/07/2023 05/07/2023 9:50 AM CLASSIFIED ADVERTISING MANAGER COVID - 19 Confirmed 05/07/2023 05/07/2023 023 12:16 AM CLASSIFIED ADVERTISING MANAGER C. difficile Rule-Out 09/24/2023 09/24/20232023 3:41 PM CDT COVID - 19 09/24/2023 09/24/2023 09/24/2023 11:3 2 AM CDT C. difficile Rule-Out 09/27/2023 09/27/20232023 2:13 PM CDT COVID - 19 02/23/2024 02/23/2024 02/23/2024 11:2 8 AM CDT Respiratory Rule-Out 02/23/2024 02/23/2024 024 11:30 AM CDT Assessment Noted Time PHQ-9 Depression Total Score: 2 07/14/19 20 10:00 AM CLASSIFIED ADVERTISING MANAGER documented as of this encounter Care Teams Tooth Clerk Relationship Specialty Start Date End Date Josiane Pacheco MD [address] [place] [address] PCP - General Family Medicine 11/20/22 07/30/23 Darwin Marti MD [address] [place] [address] PCP - General Internal Medicine 07/31/23 Blair Paris MD 4 [facility] [address] [place] [address] Consulting Physician Orthopaedic Sports Medicine 07/31/23 Jose A Espinosa MD [address] [address] Consulting Physician Pain Medicine-Pain Management 07/31/23 02/08/24 Hao Silvestre MD [address] [address] Consulting Physician Neurological Surgery 07/31/23 Carlos Dailey MD [address] [address] Consulting Physician Colon and Rectal Surgery 10/26/23 Saida Mckeon APRN, CNC SERVICE ENGINEER [address] [place] [address] Nurse Practitioner Gastroenterology 10/26/23 Jessenia Ward APRN, CONTRACT NEGOTIATION SPECIALIST [address] [place] [address] Nurse Practitioner Advanced Practice Nurse 11/17/23 Hao Silvestre MD [address] [address] Consulting Physician Neurological Surgery 02/09/[address]/27 Dominic Wang MD [place], [place] Consulting Physician Pain Medicine-Pain Management 02/09/24 Butch Muñiz MD [address] [place] [address] Consulting Physician Neurology 02/23/24 documented as of this encounter
--- OUTSIDE RECORDS SUMMARY | 2024-07-21 15:12 | XMS_ITS | Encounter Summary ---
Author Organization [facility] Address [address] [place] [address] Phone Care Team Providers Care Bilingual Spanish Inbound Sales Name Role Phone Blair Paris MD Unavailable [phone] Jose A Espinosa MD Unavailable [phone] Darwin Marti MD Primary Care Provider [phone] Hao Silvestre MD Unavailable [phone] Carlos Dailey MD Unavailable Saida Mckeon APRN, TORCH BURNER Unavailable Jessenia Ward APRN, SUPERINTENDENT RENTING MANAGING Unavailable + [phone] Hao Silvestre MD Unavailable +[phone] Dominic Wang MD Unavailable [phone] Butch Muñiz MD Unavailable [phone] Reason for Visit * Reason Comments Medication Refill Encounter Details Date Type Department Care Team ([facility] Contact Info) Description 08/26/2023 Refill [facility] Primary [facility] [address] [place] [address] Ranjeet Boston PAC [address] [place] [address] Medication Refill Social History Tobacco Use Types [...] Telephone Encounter - Indra Garcia RN - 08/26/2023 2:51 PM CST Patient need to get from neurosurgeon NE TESTING SUPERVISOR documented in this encounter Plan of Treatment Upcoming Encounters Date Type Department Care Team ([facility] Contact Info) Description 08/11/2024 10:00 AM ENGINE TESTING SUPERVISOR Office Visit [facility] [place] [address] [place] [address] Darwin Marti MD [address] [place], [place] [id number] 02/20/2025 9:30 AM CDT Office Visit [facility] [address] [place] [address] Jessenia Ward, PATIENT SERVICES REP, SUPERINTENDENT RENTING MANAGING [address] [place] [address] documented as of this encounter Visit Diagnoses [...] Depression Total Score: 0 07/31/19 12:53 PM ENGINE TESTING SUPERVISOR documented as of this encounter Care Teams Bilingual Spanish Inbound Sales Relationship Specialty Start Date End Date Darwin Marti MD [address] [place] [address] PCP - General Internal Medicine 07/31/23 Blair Paris MD 4 [facility] , [address] [place] [address] Consulting Physician Orthopaedic Sports Medicine 07/31/23 Jose A Espinosa MD [address] [facility] [address] [place] [address] Consulting Physician Pain Medicine-Pain Management 07/31/23 02/08/24 Hao Silvestre MD [address] [address] Consulting Physician Neurological Surgery 07/31/23 Carlos Dailey MD #[address] [address] Consulting Physician Colon and Rectal Surgery 10/26/23 Saida Mckeon APRN, TORCH BURNER [address] [place] [address] Nurse Practitioner Gastroenterology 10/26/23 Jessenia Ward APRN, SUPERINTENDENT RENTING MANAGING [address] [place] [address] Nurse Practitioner Advanced Practice Nurse 11/17/23 Hao Silvestre MD [address] [address] Consulting Physician Neurological Surgery 02/09/2401/27 Dominic Wang MD [place], [place] Consulting Physician Pain Medicine-Pain Management 02/09/24 Butch Muñiz MD [address] [place] [address] Consulting Physician Neurology 02/23/24 documented as of this encounter
--- OUTSIDE RECORDS SUMMARY | 2024-07-21 15:12 | XMS_ITS | Encounter Summary ---
Author Organization [facility] Address [address] [place] [address] Phone Care Team Providers Care Site Surveyor Name Role Phone Luann Cox MD Primary Care Provider + [phone] Josiane Pacheco MD Primary Care Provider + [phone] Blair Paris MD Unavailable [phone] Jose A Espinosa MD Unavailable [phone] Darwin Marti MD Primary Care Provider [phone] Hao Silvestre MD Unavailable [phone] Carlos Dailey MD Unavailable Saida Mckeon APRN, FISHER TRAMMEL NET Unavailable Jessenia Ward APRN, ODD SHOE EXAMINER Unavailable +- [phone] Hao Silvestre MD Unavailable +[phone] Dominic Wang MD Unavailable [phone] Butch Muñiz MD Unavailable [phone] Reason for Visit * Reason Comments Medication Refill Encounter Details Date Type Department Care Team (Late st Contact Info) Description 03/01/20[facility] [place] [address] [place] [address] Luann Cox MD [address] [place] [address] Medication Refill Social History Tobacco [...] Telephone Encounter - Faith Cruz RN - 03/04/2022 8:50 AM CDT Medication failed the protocol, provider to review and approve the medication order if appropriate. Requested Prescriptions Pending Prescriptions Disp Refills clopidogrel (PLAVIX) 75 MG Tablet [Pharmacy Med Name: Clopidogrel Bisulfate 75 MG Oral Tablet] 90 Tablet 0 Sig: Take 1 tablet by mouth once daily Plavix Protocol Passed - 03/01/2022 9:56 AM Passed - CBC on record in past 12 months WBC Date Value Ref Range Status 12/10/2021 5.69 4.00 - 12.00 10(3)/mcL Final WBC ESTERASE Date Value Ref Range Status 11/18/2019 Negative Negative Final RBC Date Value Ref Range Status 12/10/2021 4.33 3.80 - 5.30 10(6)/mcL Final HEMATOCRIT (HCT) Date Value Ref Range Status 12/10/2021 40.8 36.0 - 47.0 % Final HEMOGLOBIN (HGB) Date Value Ref Range Status 12/10/2021 13.1 12.0 - 15.8 g/dL Final MCV Date Value Ref Range Status 12/10/2021 94.2 82.0 - 96.0 fL Final MCH Date Value Ref Range Status 12/10/2021 30.3 26.0 - 34.0 pg Final MCHC Date Value Ref Range Status 12/10/2021 32.1 31.0 - 36.0 g/dL Final Passed - Visit with relevant provider in past 12 months or upcoming 90 days Recent Visits Date Type Provider Dept 12/16/21 Office [facility] [employer] 06/27/21 Office Visit [facility] [employer] 03/07/21 Office Visit [facility] [employer] Showing recent visits within past 365 days and meeting all other requirements Future Appointments Date Type Provider Dept 05/23/22 [facility] 05/29/22 Appointment Luann Cox [facility] Showing future appointments within next 90 days and meeting all other requirements gabapentin (NEURONTIN) 300 MG Capsule [Pharmacy Med Name: Gabapentin 300 MG Oral Capsule] 270 Capsule 0 Sig: TAKE 1 CAPSULE BY MOUTH THREE TIMES DAILY Not Delegated - Anticonvulsants Excluding Benzodiazepines Protocol Failed - 03/01/2022 9:56 AM Failed - This refill cannot be delegated Passed - Visit with relevant provider in past 12 months or upcoming 90 days Recent Visits Date Type Provider Dept 12/16/21 Office Visit [facility] [employer] 06/27/21 Office Visit [facility] [place] [employer] 03/07/21 Office Visit [facility] [place] [employer] Showing recent visits within past 365 days and meeting all other requirements Future Appointments Date Type Provider Dept 05/23/22 Appointment Lab, [place] [facility] [address] 05/29/22 Appointment Luann Cox MD [facility] Showing future appointments within next 90 days and meeting all other requirements documented in this encounter Plan of Treatment Upcoming Encounters Date Type Department Care Team (Late st Contact Info) Description 08/11/2024 10:00 AM TECHNICAL WRITING LEAD/MGR Office Visit [facility] - Primary Care - [place] [address] [place] [address] Darwin Marti MD [address] [place] [address] 02/20/2025 9:30 AM CDT Office Visit [facility] - Neurology - [place] [address] [place] [address] Jessenia Ward, NUTTER UP, ODD SHOE EXAMINER [address] [place] [address] documented as of this encounter Visit Diagnoses Diagnosis Neuropathy Mononeuritis of unspecified site documented in this encounter Additional Health Concerns Infection Onset Date Last Indicated Resolved Time ESBL 08/16/2018 08/16/2018 09/28/2023 9:03 AM CDT COVID - 19 03/09/2023 03/09/2023 03/19/2023 12:1 6 AM CDT Respiratory Rule-Out 03/09/2023 03/09/2023 023 2:09 AM CDT COVID - 19 05/07/2023 05/07/2023 05/07/2023 9:50 AM TECHNICAL WRITING LEAD/MGR COVID - 19 Confirmed 05/07/2023 05/07/2023 023 12:16 AM TECHNICAL WRITING LEAD/MGR C. difficile Rule-Out 09/24/2023 09/24/20232023 3:41 PM CDT COVID - 19 09/24/2023 09/24/2023 09/24/2023 11:3 2 AM CDT C. difficile Rule-Out 09/27/2023 09/27/20232023 2:13 PM CDT COVID - 19 02/23/2024 02/23/2024 02/23/2024 11:2 8 AM CDT Respiratory Rule-Out 02/23/2024 02/23/2024 024 11:30 AM CDT Assessment Noted Time PHQ-9 Depression Total Score: 2 07/14/19 20 10:00 AM TECHNICAL WRITING LEAD/MGR documented as of this encounter Care Teams Site Surveyor Relationship Specialty Start Date End Date Luann Cox MD PCP - General Family Medicine 04/15/15 11/02/22 Josiane Pacheco MD [address] [place] [address] PCP - General Family Medicine 11/20/22 07/30/23 Darwin Marti MD [address] [place] [address] PCP - General Internal Medicine 07/31/23 Blair Paris MD 4 [facility] , [address] [place] [address] Consulting Physician Orthopaedic Sports Medicine 07/31/23 Jose A Espinosa MD [address] [facility] [address] [address] [place] [address] Consulting Physician Pain Medicine-Pain Management 07/31/23 02/08/24 Hao Silvestre MD [address] [facility] [address] [place] [address] Consulting Physician Neurological Surgery 07/31/23 Carlos Dailey MD #[address] [address] Consulting Physician Colon and Rectal Surgery 10/26/23 Saida Mckeon APRN, FISHER TRAMMEL NET [address] [place] [address] Nurse Practitioner Gastroenterology 10/26/23 Jessenia Ward APRN, ODD SHOE EXAMINER [address] [place] [address] Nurse Practitioner Advanced Practice Nurse 11/17/23 Hao Silvestre MD [address] [address] Consulting Physician Neurological Surgery 02/09/2401/27 Dominic Wang MD [place], [place] Consulting Physician Pain Medicine-Pain Management 02/09/24 Butch Muñiz MD [address] [place] [address] Consulting Physician Neurology 02/23/24 documented as of this encounter
--- OUTSIDE RECORDS SUMMARY | 2024-07-21 15:12 | XMS_ITS | Encounter Summary ---
Author Organization [facility] Address [address] [place] [address] Phone Care Team Providers Care Annealing Furnace Operator Name Role Phone Luann Cox MD Primary Care Provider + [phone] Josiane Pacheco MD Primary Care Provider + [phone] Blair Paris MD Unavailable [phone] Jose A Espinosa MD Unavailable [phone] Darwin Marti MD Primary Care Provider [phone] Hao Silvestre MD Unavailable [phone] Carlos Dailey MD Unavailable Saida Mckeon APRN, WIRELESS OPERATOR Unavailable Jessenia Ward APRN, SEWAGE SCREEN OPERATOR Unavailable + [phone] Hao Silvestre MD Unavailable [phone] Dominic Wang MD Unavailable [phone] Butch Muñiz MD Unavailable [phone] Reason for Visit * Reason Comments Medication Refill Encounter Details Date Type Department Care Team (Late st Contact Info) Description 11/01/2021 Refill [facility] - Primary Care - [place] [address] [place] [address] Luann Cox MD [address] [place] [address] Medication Refill Social History Tobacco [...] suspected to have Coronavirus/COVID-19? No / Unsure 10/14/2021 9:54 AM CDT documented as of this encounter Miscellaneous Notes * Telephone Encounter - Luann Cox MD - 11/01/2021 4:12 PM CDT She needs a follow-up appointment as recommended at last office visit. * Telephone Encounter - Faith Cruz RN - 11/01/2021 10:25 AM CDT Medication failed the protocol, provider to review and approve the medication order if appropriate. Requested Prescriptions Pending Prescriptions Disp Refills EQ Allergy Relief, Cetirizine, 10 MG Tablet [Pharmacy Med Name: EQ Allergy Relief (Cetirizine) 10 MG Oral Tablet] 90 Tablet 0 Sig: Take 1 tablet by mouth once daily Non-sedating Antihistamines Protocol Failed - 11/01/2021 10:07 AM Failed - Patient less than 65 years of age for Cetirizine or Levocetirizine Passed - Visit with relevant provider in past 12 months or upcoming 90 days Recent Visits Date Type Provider Dept 06/27/21 Office Visit Luann Cox MD [facility] 03/07/21 Office Visit Luann Cox MD [facility] Showing recent visits within past 365 days and meeting all other requirements Future Appointments No visits were found meeting these conditions. Showing future appointments within next 90 days and meeting all other requirements meloxicam (MOBIC) 15 MG Tablet [Pharmacy Med Name: Meloxicam 15 MG Oral Tablet] 90 Tablet 0 Sig: Take 1 tablet by mouth once daily NSAIDs Protocol Failed - 11/01/2021 10:07 AM Failed - Not delegated, patient not between 1 and 65 years of age Passed - Normal serum creatinine in past 12 months CREATININE, BLOOD Date Value Ref Range Status 10/14/2021 0.61 0.60 - 1.10 mg/dL Final Passed - Visit with relevant provider in past 12 months or upcoming 90 days Recent Visits Date Type Provider Dept 06/27/21 Office Visit Luann Cox MD [facility] 03/07/21 Office Visit Luann Cox MD [facility] Showing recent visits within past 365 days and meeting all other requirements Future Appointments No visits were found meeting these conditions. Showing future appointments within next 90 days and meeting all other requirements Passed - No matching NSAID med order in past 45 days No matching medication orders between 09/17/2021 10:25 AM and 11/01/2021 10:25 AM Passed - AST less than 55 [...] 03/05/2021 41.2 36.0 - 47.0 % Final Signed Prescriptions Disp Refills pantoprazole (PROTONIX) 40 MG Tablet Delayed Response 90 Tablet 0 Sig: Take 1 tablet by mouth once daily Proton Pump Inhibitors Protocol Passed - 11/01/2021 10:07 AM Passed - Visit with relevant provider in past 12 months or upcoming 90 days Recent Visits Date Type Provider Dept 06/27/21 Office Visit Luann Cox MD [facility] 03/07/21 Office Visit Luann Cox MD [facility] Showing recent visits within past 365 days and meeting all other requirements Future Appointments No visits were found meeting these conditions. Showing future appointments within next 90 days and meeting all other requirements Euthyrox 50 MCG Tablet 90 Tablet 0 Sig: Take 1 tablet by mouth once daily Thyroid Hormones Protocol Passed - 11/01/2021 10:07 AM Passed - Visit with relevant provider in past 12 months or upcoming 90 days Recent Visits Date Type Provider Dept 06/27/21 Office Visit Luann Cox MD [facility] 03/07/21 Office Visit Luann Cox MD [facility] Showing recent visits within past 365 days and meeting all other requirements Future Appointments No visits were found meeting these conditions. Showing future appointments within next 90 days and meeting all other requirements Passed - Normal TSH in past 12 months TSH Date Value Ref Range Status 03/05/2021 2.770 0.270 - 4.200 mIU/L Final simvastatin (ZOCOR) 40 MG Tablet 90 Tablet 0 Sig: Take 1 tablet by mouth once daily Hmg CoA Reductase Inhibitors Protocol Passed - 11/01/2021 10:07 AM Passed - Visit with relevant provider in past 12 months or upcoming 90 days Recent Visits Date Type Provider Dept 06/27/21 Office Visit Luann Cox MD [facility] [address] 03/07/21 Office Visit Luann Cox MD [facility] Showing recent visits within past 365 days and meeting all other requirements Future Appointments No visits were found meeting these conditions. Showing future appointments within next 90 days and meeting all other requirements Passed - Lipid panel in past 12 months LDL Date Value Ref Range Status 03/05/2021 133 (H) 5 - 130 mg/dL Final HDL CHOLESTEROL Date Value Ref Range Status 03/05/2021 48.0 >40 mg/dL Final CHOLESTEROL Date Value Ref Range Status 03/05/2021 205 (H) <=200 mg/dL Final TRIGLYCERIDES Date Value Ref Range Status 03/05/2021 121 <150 mg/dL Final VLDL Date Value Ref Range Status 03/05/2021 24 5 - 55 mg/dL Final CHOL/HDL RATIO Date Value Ref Range Status 03/05/2021 4.3 0.0 - 4.4 Final NON-HDL CHOLESTEROL Date Value Ref Range Status 03/05/2021 157 (H) <130 mg/dL Final documented in this encounter Plan of Treatment Upcoming Encounters Date Type Department Care Team (Late st Contact Info) Description 08/11/2024 10:00 AM LEAF TINNER Office Visit [facility] - Primary Care - [place] [address] [place] [address] Darwin Marti MD [address] [place] [address] 02/20/2025 9:30 AM CDT Office Visit [facility] - Neurology - [place] [address] [place] [address] Jessenia Ward, NURSE LDR, SEWAGE SCREEN OPERATOR [address] [place] [address] documented as of this encounter Visit Diagnoses Diagnosis Gastroesophageal reflux disease Esophageal reflux Hypothyroidism (acquired) Unspecified hypothyroidism Hyperlipidemia, unspecified hyperlipidemia type documented in this encounter Additional Health Concerns Infection Onset Date Last Indicated Resolved Time ESBL 08/16/2018 08/16/2018 09/28/2023 9:03 AM CDT COVID - 19 03/09/2023 03/09/2023 03/19/2023 12:1 6 AM CDT Respiratory Rule-Out 03/09/2023 03/09/2023 023 2:09 AM CDT COVID - 19 05/07/2023 05/07/2023 05/07/2023 9:50 AM LEAF TINNER COVID - 19 Confirmed 05/07/2023 05/07/2023 023 12:16 AM LEAF TINNER C. difficile Rule-Out 09/24/2023 09/24/20232023 3:41 PM CDT COVID - 19 09/24/2023 09/24/2023 09/24/2023 11:3 2 AM CDT C. difficile Rule-Out 09/27/2023 09/27/20232023 2:13 PM CDT COVID - 19 02/23/2024 02/23/2024 02/23/2024 11:2 8 AM CDT Respiratory Rule-Out 02/23/2024 02/23/2024 024 11:30 AM CDT Assessment Noted Time PHQ-9 Depression Total Score: 2 07/14/19 20 10:00 AM LEAF TINNER documented as of this encounter Care Teams Annealing Furnace Operator Relationship Specialty Start Date End Date Luann Cox MD PCP - General Family Medicine 04/15/15 11/02/22 Josiane Pacheco MD [address] [place] [address] PCP - General Family Medicine 11/20/22 07/30/23 Darwin Marti MD [address] [place] [address] PCP - General Internal Medicine 07/31/23 Blair Paris MD 4 [facility] [address] [place] [address] Consulting Physician Orthopaedic Sports Medicine 07/31/23 Jose A Espinosa MD 2 [facility] [address] [place] [address] Consulting Physician Pain Medicine-Pain Management 07/31/23 02/08/24 Hao Silvestre MD [address] [address] Consulting Physician Neurological Surgery 07/31/23 Carlos Dailey MD [address]2 [facility] [address] [place] [address] Consulting Physician Colon and Rectal Surgery 10/26/23 Saida Mckeon APRN, WIRELESS OPERATOR [address] [place] [address] Nurse Practitioner Gastroenterology 10/26/23 Jessenia Ward APRN, SEWAGE SCREEN OPERATOR [address] [place] [address] Nurse Practitioner Advanced Practice Nurse 11/17/23 Hao Silvestre MD [address] [address] Consulting Physician Neurological Surgery 02/09/2401/27 Dominic Wang MD [place], [place] Consulting Physician Pain Medicine-Pain Management 02/09/24 Butch Muñiz MD [address] [place] [address] Consulting Physician Neurology 02/23/24 documented as of this encounter
--- OUTSIDE RECORDS SUMMARY | 2024-07-21 15:12 | XMS_ITS | Clinical Summary ---
Author Organization [facility] Address [address] [facility] [place] [address] Care Team Providers Care Economics Department Chair Name Role Phone Darwin Marti MD Primary Care Provider [phone] Source Comments [facility],non-owned Affiliates and Associated Physician Practices is amultiple site organization consisting of ambulatory clinics and hospital sitesin [place], [place] and [place]. This disclosure is being madepursuant to the Care Everywhere program and may not contain all information available regarding this patient. Last updated 18.[facility] Allergies Active Allergy Reactions Criticality Noted Date Comments Acetaminophen Vomiting 03/28/2021 Reaction: Vomiting, Aspirin Other 03/28/2021 Reaction: Unknown, , , Celecoxib Unknown 03/28/2021 Cephalosporins Rash Medium 02/08/2020 Codeine Palpitations,Unknown 03/28/2021 Reaction: Unknown, , Reaction: Altered Heart Rate, Diptheria-Tetanus Toxoids-Dt Angioedema High 02/08/2020 Fish Other 02/08/2020 Reaction: Unknown, Fish Allergy Unknown 06/15/2015 Hydrocodone Vomiting 03/28/2021 Reaction: Vomiting, Hydrocodone-Acetaminophe n Vomiting 06/15/2015 Ibuprofen Other Medium 06/15/2017 Hx ulcer - was told not to take ibuprofen Hx ulcer - was told not to take ibuprofen Kiwi Extract Palpitations,Unknown 06/15/2015 Reaction: Unknown, Latex Itching,Other 06/15/2015 Reaction: Unknown, , , Meperidine Urticaria Medium 06/15/2015 Mercury Unknown 03/28/2021 Morphine Unknown 03/28/2021 Oxycodone Vomiting 03/28/2021 Reaction: Vomiting, Penicillins Other,Unknown 03/28/2021 Reaction: Unknown, [place] Unknown 06/15/2015 Sulfa Drugs Other 02/08/2020 Reaction: Unknown, Tetanus Antitoxin Swelling 06/15/2015 Tetanus Toxoid Unknown 07/02/2015 Medications * Be aware that medications may not be up to date on this document. Alwaysverify current medications with the patient. Medication Sig Dispensed Refills Start Date End Date Status Vitamins-Lipotropi cs (MULTIPLE VITAMIN) capsule Take 1 tablet by mouth once daily Active albuterol HFA (PROVENTIL;VENTOLI N;PROAIR) 108 (90 Base) MCG/ACT inhaler Inhale 1 puff by mouth 05/08/2009 Active ascorbic acid (VITAMIN C) 500 MG tablet Take 1 tablet by mouth 2 times daily until finished 11/19/2017 Active clopidogrel (PLAVIX) 75 MG tablet Take 75 mg by mouth once daily 11/20/2019 Active cyclobenzaprine (FLEXERIL) 10 MG tablet 10 mg 07/25/2015 Active gabapentin (NEURONTIN) 300 MG capsule TAKE 1 CAPSULE BY MOUTH THREE TIMES DAILY FOR 90 DAYS 09/09/2017 Active hydroCHLOROthiazid e (HYDRODIURIL) 25 MG tablet Take 1 tablet by mouth once daily 08/10/2017 Active levothyroxine (SYNTHROID) 50 MCG tablet Take 1 tablet by mouth once daily 12/14/2017 Active meclizine (ANTIVERT) 25 MG tablet [The details of the medication are not available because there are pending changes by a home health clinician.] 11/03/2017 Active metoprolol tartrate (LOPRESSOR) 25 MG tablet TAKE ONE TABLET BY MOUTH TWICE DAILY 11/03/2017 Active ondansetron, disintegrating, (ZOFRAN ODT) 4 MG tablet Take 4 mg by mouth 12/01/2017 Active pantoprazole EC (PROTONIX) 40 MG tablet Take 1 tablet by mouth once daily 02/19/2015 Active simvastatin (ZOCOR) 40 MG tablet Take 1 tablet by mouth once daily 02/19/2015 Active cetirizine (ZYRTEC) 10 MG tablet Take 10 mg by mouth once daily 01/28/2021 Active DULERA 100-5 MCG/ACT inhaler Inhale 2 puffs by mouth 2 times daily 03/07/2021 Active meloxicam (MOBIC) 15 MG tablet Take 15 mg by mouth once daily 01/03/2021 Active vitamin D3 (CHOLECALCIFEROL) (25 MCG) 1000 UNIT capsule Take 1,000 Units by mouth once daily 11/23/2019 Active traMADol (ULTRAM) 50 MG tablet Take 1 (one) tablet by mouth every 6 hours as needed 12 tablet 10/19/2021 Active Additional Information Patient taking differently:50 mg Oral EVERY 6 HOURS PRN,(No instructions reported), Reported on 11/15/2021 docusate sodium (COLACE) 100 MG capsule Take 1 (one) capsule by mouth once daily 30 capsule 10/20/2021 Active Active Problems Problem Noted Date Diagnosed Date [...] 08/21/2015 Vitamin D deficiency 08/21/2015 Asthma 04/02/2015 Overview (03/28/2021): Asthma Backache 04/02/2015 Overview (03/28/2021): Back pain Arthritis 02/19/2015 Overview (03/28/2021): Arthritis Former smoker 02/19/2015 Overview (03/28/2021): Ex smoker Hypertension 02/19/2015 Overview (03/28/2021): Hypertension Knee pain 02/19/2015 Overview (03/28/2021): Knee pain Mitral valve prolapse 02/19/2015 Overview (03/28/2021): Mitral valve prolapse Immunizations Name Administration Dates Next Due INFLUENZA VACCINE, TRIV. (AF LURIA, FLUZONE TRIVALENT; 6MO+) (IIV3) 05/04/2019,06/15/2015,03/29/2014 INFLUENZA VACCINE, HIGH-DOSE , QUADR. (FLUZONE HIGH-DOSE QUADRIVALENT; 65Y+), 0.7 ML (HD-IIV4) 03/18/2016 INFLUENZA VACCINE, QUADR. (F LUZONE; FLULAVAL; FLUARIX; AFLURIA QUADRIVALENT; 6MO+), 0.5 ML (IIV4) 03/07/2021,07/12/2020,07/15/2018,2016 PNEUMOCOCCAL PPSV23 01/27/2013 Pneumococcal Pcv13 Conj 09/23/2016 Td (Adult), 2 Lf Tetanus Tox oid, Adsorbed, Pf 06/29/1998 ZOSTER VACCINE, LIVE 01/27/2013 Family History Medical History Relation Name Comments Cancer - Esophageal Brother Heart Failure Brother Arthritis - Rheumatoid Maternal Grandfather Heart Failure Maternal Grandfather Hypertension Maternal Grandfather Arthritis - Rheumatoid Maternal Grandmother Hypertension Maternal Grandmother Arthritis - Rheumatoid Mother Diabetes; unknown type Mother Hypertension Mother Hypertension Other Cataract Paternal Grandmother Relation Name Status Comments Brother Maternal Grandfather Maternal Grandmother Mother Other Paternal Grandmother Social History Tobacco Use Types Packs/Day Years [...] Mass Index 32.87 10/18/2021 6:48 AM CDT Plan of Treatment Health Maintenance Due Date Last Done Comments BONE DENSITY TESTING 1950 MEDICARE AWV ? 12 MONTHS 1950 HEPATITIS C SCREENING 01/11/1966 DTAP/TDAP/TD VACCINES (1 - Tdap) 06/30/1998 06/29/1998 ZOSTER VACCINE (2 of 3) 03/24/2013 01/27/2013 Respiratory Syncytial Virus (RSV) Vaccine Pt: or over 60 yrs (1 - 1-dose 75+ series) 01/15/2023 COVID-19 VACCINE (4 - season) 2024 07/01/2021, 11/06/2020, 10/09/2020 INFLUENZA VACCINE (#1) 2024 1, 07/12/2020, 05/04/2019, Additional history exists DEPRESSION SCREENING 06/29/2024 PNEUMOCOCCAL VACCINE 50+ Completed 09/23/2016, 06/2012 HEPATITIS B VACCINE Aged Out No longe r eligible based on patient's age to complete this topic HIB VACCINE Aged Out No longer eligi ble based on patient's age to complete this topic HPV VACCINE Aged Out No longer eligi ble based on patient's age to complete this topic MENINGOCOCCAL (Group B) VACCINE Aged Out No longer eligible based on patient's age to complete this topic MENINGOCOCCAL VACCINE Aged Out No celsa dawit eligible based on patient's age to complete this topic Advance Directives * Full Code (Latest Code Status on File) Date Activated Date Inactivated Comments 10/18/2021 5:32 PM 10/19/2021 1:05 PM Care Teams Economics Department Chair Relationship Specialty Start Date End Date Darwin Marti MD [address] [place] [address] PCP - General Internal Medicine 10/27/23
--- OUTSIDE RECORDS SUMMARY | 2024-07-21 15:12 | XMS_ITS | Referral Summary ---
Author Organization [facility] Address [address] [place] [address] Care Team Providers Care Tubing Machine Operator Name Role Phone Darwin Marti MD Primary Care Provider [phone] Source Comments [facility],non-owned Affiliates and Associated Physician Practices is amultiple site organization consisting of ambulatory clinics and hospital sitesin [place], [place], [place] and [place]. This disclosure is being madepursuant to the Care Everywhere program and may not contain all information available regarding this patient. Last updated 18.[facility] Allergies Active Allergy Reactions Criticality Noted Date [...] Reaction: Vomiting, Penicillins Other,Unknown 03/28/2021 Reaction: Unknown, [place] Unknown 06/15/2015 Sulfa Drugs Other 02/08/2020 Reaction: [...] Adsorbed, Pf 06/29/1998 ZOSTER VACCINE, LIVE 01/27/2013 Social History Tobacco Use Types Packs/Day Years [...] Mass Index 32.87 10/18/2021 6:48 AM CDT Functional Status Functional Status Response Date of Assess ment Is person deaf or have serious hearing difficult y? No 10/19/2021 Is person blind or have serious difficulty seein g? Yes 10/19/2021 Does person have serious dif ficulty walking/climbing stairs? No 10/19/2021 Does person have difficulty dressing/bathing? No 10/19/2021 Does person have difficulty doing errands alone? No 10/19/2021 Cognitive Status Response Date of Assessm ent Does person have difficulty concentrating/remembering/making decisions? No 10/19/2021 Plan of Treatment Not on file Advance Directives * Full Code (Latest Code Status on File) Date Activated Date Inactivated Comments 10/18/2021 5:32 PM 10/19/2021 1:05 PM Care Teams Tubing Machine Operator Relationship Specialty Start Date End Date Darwin Marti MD [address] [place] [address] PCP - General Internal Medicine 10/27/23
--- OUTSIDE RECORDS SUMMARY | 2024-07-21 15:12 | XMS_ITS | Encounter Summary ---
Author Organization [facility] Address [address] [place] [address] Phone Care Team Providers Care Dashboard Developer Name Role Phone Luann Cox MD Primary Care Provider + [phone] Josiane Pacheco MD Primary Care Provider + [phone] Blair Paris MD Unavailable [phone] Jose A Espinosa MD Unavailable [phone] Darwin Marti MD Primary Care Provider [phone] Hao Silvestre MD Unavailable [phone] Carlos Dailey MD Unavailable Saida Mckeon APRN, CYLINDER WORKER Unavailable [place], Jessenia M COMPLIANCE SPEC, REINFORCED CONCRETE INSPECTOR Unavailable [phone] Hao Silvestre MD Unavailable Dominic Wang MD Unavailable [phone] Butch Muñiz MD Unavailable [phone] Reason for Visit * Reason Comments Medication Refill Encounter Details Date Type Department Care Team (Late Contact Info) Description 11/11/2020 [facility] [place] [address] [place] [phone] Luann Cox MD [address] [place] [address] Medication Refill Social History Tobacco [...] (Late Contact Info) Description 08/11/2024 10:00 AM CONTRACT ASSOCIATE MANAGER Office Visit [facility] Care - [place] [address] [place] [phone] Darwin Marti MD [address] [place], [place] [id number] 02/20/2025 9:30 AM CDT Office Visit [facility] - Neurology - [place] [address] [place] [address] Jessenia Ward, COMPLIANCE SPEC, REINFORCED CONCRETE INSPECTOR [address] [place] [address] documented as of this encounter Visit Diagnoses Diagnosis Essential hypertension Unspecified essential hypertension documented in this encounter Additional Health Concerns Infection Onset Date Last Indicated Resolved Time ESBL 08/16/2018 08/16/2018 09/28/2023 9:03 AM CDT COVID - 19 03/09/2023 03/09/2023 03/19/2023 12:1 6 AM CDT Respiratory Rule-Out 03/09/2023 03/09/2023 023 2:09 AM CDT COVID - 19 05/07/2023 05/07/2023 05/07/2023 9:50 AM CONTRACT ASSOCIATE MANAGER COVID - 19 Confirmed 05/07/2023 05/07/2023 023 12:16 AM CONTRACT ASSOCIATE MANAGER C. difficile Rule-Out 09/24/2023 09/24/20232023 3:41 PM CDT COVID - 19 09/24/2023 09/24/2023 09/24/2023 11:3 2 AM CDT C. difficile Rule-Out 09/27/2023 09/27/20232023 2:13 PM CDT COVID - 19 02/23/2024 02/23/2024 02/23/2024 11:2 8 AM CDT Respiratory Rule-Out 02/23/2024 02/23/2024 024 11:30 AM CDT Assessment Noted Time PHQ-9 Depression Total Score: 2 07/14/19 20 10:00 AM CONTRACT ASSOCIATE MANAGER documented as of this encounter Care Teams Dashboard Developer Relationship Specialty Start Date End Date Luann Cox MD PCP - General Family Medicine 04/15/15 11/02/22 Josiane Pacheco MD [address] [place] [address] PCP - General Family Medicine 11/20/22 07/30/23 Darwin Marti MD [address] [place] [address] PCP - General Internal Medicine 07/31/23 Blair Paris MD 4 [facility] [address] [place] [address] Consulting Physician Orthopaedic Sports Medicine 07/31/23 Jose A Espinosa MD 2 [facility] [address] [place] [address] Consulting Physician Pain Medicine-Pain Management 07/31/23 02/08/24 Hao Silvestre MD [address] [place] [address] Consulting Physician Neurological Surgery 07/31/23 Carlos Dailey MD [address] [address] Consulting Physician Colon and Rectal Surgery 10/26/23 Saida Mckeon APRN, CYLINDER WORKER [address] [place] [address] Nurse Practitioner Gastroenterology 10/26/23 Jessenia Ward APRN, REINFORCED CONCRETE INSPECTOR [address] [place] [address] Nurse Practitioner Advanced Practice Nurse 11/17/23 Hao Silvestre MD [address] [address] Consulting Physician Neurological Surgery 02/09/2401/27 Dominic Wang MD [place], [place] Consulting Physician Pain Medicine-Pain Management 02/09/24 Butch Muñiz MD [address] [place] [phone] Consulting Physician Neurology 02/23/24 documented as of this encounter
--- OUTSIDE RECORDS SUMMARY | 2024-07-21 15:12 | XMS_ITS | Encounter Summary ---
Author Organization [facility] Address [address] [place] [address] Phone Care Team Providers Care Side Trimmer Name Role Phone Luann Cox MD Primary Care Provider + [phone] Josiane Pacheco MD Primary Care Provider + [phone] Blair Paris MD Unavailable [phone] Jose A Espinosa MD Unavailable [phone] Darwin Marti MD Primary Care Provider [phone] Hao Silvestre MD Unavailable [phone] Carlos Dailey MD Unavailable Saida Mckeon APRN, CO FOUNDER AND CEO Unavailable Jessenia Ward APRN, ON SITE MANAGER Unavailable + [phone] Hao Silvestre MD Unavailable [phone] Dominic Wang MD Unavailable [phone] Butch Muñiz MD Unavailable [phone] Reason for Visit * Reason Comments Medication Refill Encounter Details Date Type Department Care Team (Late st Contact Info) Description 04/29/2022 [facility] [place] [address] [place] [phone] Luann Cox MD [address] [place] [address] Medication Refill Social History Tobacco [...] suspected to have Coronavirus/COVID-19? No / Unsure 04/22/2022 8:50 AM CDT documented as of this encounter Miscellaneous Notes * Telephone Encounter - Margaret Magdaleno, RN - 04/29/2022 10:47 AM CDT Medication failed the protocol, provider to review and approve the medication order if appropriate. Requested Prescriptions Pending Prescriptions Disp Refills EQ Allergy Relief, Cetirizine, 10 MG Tablet [Pharmacy Med Name: EQ Allergy Relief (Cetirizine) 10 MG Oral Tablet] 90 Tablet 0 Sig: Take 1 tablet by mouth once daily Non-sedating Antihistamines Protocol Failed - 04/29/2022 9:58 AM Failed - Patient less than 65 years of age for Cetirizine or Levocetirizine Passed - Visit with relevant provider in past 12 months or upcoming 90 days Recent Visits Date Type Provider Dept 12/16/21 Office Visit [facility] 06/27/21 Office Visit Luann Cox MD [facility] [employer] Showing recent visits within past 365 days and meeting all other requirements Future Appointments Date Type Provider Dept 05/23/22 Appointment Lab[facility] [place] [facility] 05/29/22 Appointment Luann Cox MD [facility] [employer] Showing future appointments within next 90 days and meeting all other requirements meloxicam (MOBIC) 15 MG Tablet [Pharmacy Med Name: Meloxicam 15 MG Oral Tablet] 90 Tablet 0 Sig: Take 1 tablet by mouth once daily NSAIDs Protocol Failed - 04/29/2022 9:58 AM Failed - Not delegated, patient not between 1 and 65 years of age Passed - Normal serum creatinine in past 12 months CREATININE, BLOOD Date Value Ref Range Status 10/14/2021 0.61 0.60 - 1.10 mg/dL Final Passed - Visit with relevant provider in past 12 months or upcoming 90 days Recent Visits Date Type Provider Dept 12/16/21 Office Visit Luann Cox MD [facility] 06/27/21 Office Visit Luann Cox MD [facility] Showing recent visits within past 365 days and meeting all other requirements Future Appointments Date Type Provider Dept 05/23/22 Appointment Lab, [place] [facility] 05/29/22 Appointment Luann Cxo MD [facility] [employer] Showing future appointments within next 90 days and meeting all other requirements Passed - No matching NSAID med order in past 45 days No matching medication orders between 03/15/2022 10:47 AM and 04/29/2022 10:47 AM Passed - AST less than 55 [...] 12/10/2021 40.8 36.0 - 47.0 % Final levothyroxine (SYNTHROID) 50 MCG Tablet [Pharmacy Med Name: Levothyroxine Sodium 50 MCG Oral Tablet] 90 Tablet 0 Sig: Take 1 tablet by mouth once daily Thyroid Hormones Protocol Passed - 04/29/2022 9:58 AM Passed - Visit with relevant provider in past 12 months or upcoming 90 days Recent Visits Date Type Provider Dept 12/16/21 Office Visit Luann Cox MD [facility] [employer] 06/27/21 Office Visit Luann Cox MD [facility] [employer] Showing recent visits within past 365 days and meeting all other requirements Future Appointments Date Type Provider Dept 05/23/22 [facility] [place] [facility] [employer] 05/29/22 Appointment Luann Cox MD [facility] [employer] Showing future appointments within next 90 days and meeting all other requirements Passed - Normal TSH in past 12 months TSH Date Value Ref Range Status 12/10/2021 3.010 0.270 - 4.200 mIU/L Final pantoprazole (PROTONIX) 40 MG Tablet Delayed Response [Pharmacy Med Name: Pantoprazole Sodium 40 MGOral Tablet Delayed Release] 90 Tablet 0 Sig: Take 1 tablet by mouth once daily Proton Pump Inhibitors Protocol Passed - 04/29/2022 9:58 AM Passed - Visit with relevant provider in past 12 months or upcoming 90 days Recent Visits Date Type Provider Dept 12/16/21 Office Visit Luann Cox MD [facility] [employer] 06/27/21 Office Visit Luann Cox MD [facility] [employer] Showing recent visits within past 365 days and meeting all other requirements Future Appointments Date Type Provider Dept 05/23/22 Appointment Lab, [place] [facility] 05/29/22 Appointment Luann Cox MD [facility] [address] Showing future appointments within next 90 days and meeting all other requirements documented in this encounter Plan of Treatment Upcoming Encounters Date Type Department Care Team (Late st Contact Info) Description 08/11/2024 10:00 AM PERIANESTHESIA MANAGER [facility] [place] [address] [place] [phone] Darwin Marti MD [address] [place] [address] 02/20/2025 9:30 AM CDT Office Visit [facility] Neurology - [place] [address] [place] [address] Jessenia Ward APRN, ON SITE MANAGER [address] [place] [address] documented as of this encounter Visit Diagnoses Diagnosis Hypothyroidism (acquired) Unspecified hypothyroidism Gastroesophageal reflux disease Esophageal reflux documented in this encounter Additional Health Concerns Infection Onset Date Last Indicated Resolved Time ESBL 08/16/2018 08/16/2018 09/28/2023 9:03 AM CDT COVID - 19 03/09/2023 03/09/2023 03/19/2023 12:1 6 AM CDT Respiratory Rule-Out 03/09/2023 03/09/2023 023 2:09 AM CDT COVID - 19 05/07/2023 05/07/2023 05/07/2023 9:50 AM PERIANESTHESIA MANAGER COVID - 19 Confirmed 05/07/2023 05/07/2023 023 12:16 AM PERIANESTHESIA MANAGER C. difficile Rule-Out 09/24/2023 09/24/20232023 3:41 PM CDT COVID - 19 09/24/2023 09/24/2023 09/24/2023 11:3 2 AM CDT C. difficile Rule-Out 09/27/2023 09/27/20232023 2:13 PM CDT COVID - 19 02/23/2024 02/23/2024 02/23/2024 11:2 8 AM CDT Respiratory Rule-Out 02/23/2024 02/23/2024 024 11:30 AM CDT Assessment Noted Time PHQ-9 Depression Total Score: 2 07/14/19 20 10:00 AM PERIANESTHESIA MANAGER documented as of this encounter Care Teams Side Trimmer Relationship Specialty Start Date End Date Luann Cox MD PCP - General Family Medicine 04/15/15 11/02/22 Josiane Pacheco MD [address] [place] [address] PCP - General Family Medicine 11/20/22 07/30/23 Darwin Marti MD [address] [place] [address] PCP - General Internal Medicine 07/31/23 Blair Paris MD 4 [facility] [address] [place] [address] Consulting Physician Orthopaedic Sports Medicine 07/31/23 Jose A Espinosa MD 2 [facility] [address] [place] [address] Consulting Physician Pain Medicine-Pain Management 07/31/23 02/08/24 Hao Silvestre MD [address] [address] Consulting Physician Neurological Surgery 07/31/23 Carlos Dailey MD [address] [facility] [address] [place] [address] Consulting Physician Colon and Rectal Surgery 10/26/23 Saida Mckeon APRN, [facility] [address] [place] [address] Nurse Practitioner Gastroenterology 10/26/23 Jessenia Ward APRN, [facility] [address] [place] [address] Nurse Practitioner Advanced Practice Nurse 11/17/23 Hao Silvestre MD [address] [address] Consulting Physician Neurological Surgery 02/09/2401/27 Dominic Wang MD [place], [place] Consulting Physician Pain Medicine-Pain Management 02/09/24 Butch Muñiz MD [address] [place] [phone] Consulting Physician Neurology 02/23/24 documented as of this encounter
--- OUTSIDE RECORDS SUMMARY | 2024-07-21 15:12 | XMS_ITS | Encounter Summary ---
Author Organization [facility] Address [address] [place] [address] Care Team Providers Care Regional Truck Driver Name Role Phone Luann Cox MD Primary Care Provider [phone] Ana Hassan Unavailable [phone] Darwin Marti MD Primary Care Provider [phone] Encounter Details Date Type Department Care Team (Late st Contact Info) Description 10/19/2021 Ophth Exam [facility] [address] [place] [phone] Brielle Howe MD [address] [place] [address] [place] [address] Social History Tobacco Use Types Packs/Day Years [...] money to buy more. Never true 10/19/19 22 Within the past 12 months, t he food you bought just didn't last and you didn't have money to get more. Never true 10/18/2021 Sex and Gender Information Value Date Recorded Sex Assigned at Not on file Gender Identity Not on file Sexual Orientation Not on file documented as of this encounter Functional Status Functional Status Response Date of [...] person have difficulty concentrating/remembering/making decisions? No 10/19/2021 documented as of this encounter Plan of Treatment Not on file documented as of this encounter Visit Diagnoses Not on filedocumented in this encounter Care Teams Regional Truck Driver Relationship Specialty Start Date End Date Luann Cox MD PCP - General Family Medicine 05/06/21 10/26/23 Darwin Marti MD [address] [place] [address] PCP - General Internal Medicine 10/27/23 Ana Hassan Care Coordination Specialist Care Management 10/27/23 10/27/23 documented as of this encounter
--- OUTSIDE RECORDS SUMMARY | 2024-07-21 15:12 | XMS_ITS | Encounter Summary ---
Author Organization [facility] Address [address] [place] [address] Phone Care Team Providers Care Algorithm Design Engineer Name Role Phone Luann Cox MD Primary Care Provider + [phone] Josiane Pacheco MD Primary Care Provider + [phone] Blair Paris MD Unavailable +[phone] Jose A Espinosa MD Unavailable [phone] Darwin Marti MD Primary Care Provider [phone] Hao Silvestre MD Unavailable +[phone] Carlos Dailey MD Unavailable Saida Mckeon APRN, CONTRACT LOADER Unavailable Jessenia Ward APRN, PACKAGE WINDER Unavailable + [phone] Hao Silvestre MD Unavailable +[phone] Dominic Wang MD Unavailable +[phone] Butch Muñiz MD Unavailable +[phone] Reason for Visit * Reason Comments Medication Refill Encounter Details Date Type Department Care Team (Late st Contact Info) Description 01/27/2021 Refill [facility] - [facility] [address] [place] [id number] Luann Cox MD [address] [place] [address] Medication Refill Social History Tobacco [...] Telephone Encounter - Coni Erickson RN - 01/28/2021 1:17 PM CDT Medication failed the protocol, provider to review and approve the medication order if appropriate. Requested Prescriptions Pending Prescriptions Disp Refills gabapentin (NEURONTIN) 300 MG Capsule [Pharmacy Med Name: GABAPENTIN 300MG CAP] 270 Capsule 0 Sig: TAKE 1 CAPSULE BY MOUTH THREE TIMES DAILY [facility]: Anticonvulsants Passed - 01/28/2021 1:17 PM Passed - Valid encounter within last 12 months Past Office Visits Recent Outpatient Visits 4 months ago Spinal stenosis, lumbar region, with neurogenic claudication [facility] - [facility] Medicine - [facility] Luann Cox MD 6 months ago Uncomplicated asthma [facility] Luann Cox MD 1 year ago Essential hypertension [facility] Luann Cox MD 1 year ago Essential hypertension [facility] Luann Cox MD 2 years ago Essential hypertension [facility] Luann Cox MD Upcoming Appointments Future Appointments In 1 month Luann Cox MD [facility] - Recent and Past Visits Recent Visits Date Type Provider Dept 09/06/20 Office Visit Luann Cox MD [facility] 07/24/20 Office Visit Luann Cox MD [facility] 01/12/20 Office Visit Luann Cox MD [facility] Showing recent visits within past 460 days with a meds authorizing provider and meeting all other requirements Future Appointments Date Type Provider Dept 03/07/21 Appointment Luann Cox MD [facility] Showing future appointments within next 90 days with a meds authorizing provider and meeting all other requirements EQ Allergy Relief, Cetirizine, 10 MG Tablet [Pharmacy Med Name: EQ Allergy Relief (Cetirizine) 10 MG Oral Tablet] 90 Tablet 0 Sig: Take 1 tablet by mouth once daily Non-sedating Antihistamines Protocol Failed - 01/28/2021 1:17 PM Failed - Patient less than 65 years of age for Cetirizine or Levocetirizine Passed - Visit with relevant provider in past 12 months or upcoming 90 days Recent Visits Date Type Provider Dept 09/06/20 Office Visit Luann Cox MD [facility] 07/24/20 Office Visit Luann Cox MD [facility] Showing recent visits within past 365 days and meeting all other requirements Future Appointments Date Type Provider Dept 03/07/21 Appointment Luann Cox MD [facility] Showing future appointments within next 90 days and meeting all other requirements documented in this encounter Plan of Treatment Upcoming Encounters Date Type Department Care Team (Late st Contact Info) Description 08/11/2024 10:00 AM SENIOR PROJECT CONTROLS SPECIALIST Office Visit [facility] - Primary Care - [place] [address] [place] [address] Darwin Marti MD [address] [place] [address] 02/20/2025 9:30 AM CDT Office Visit [facility] - Neurology - [place] [address] [place] [phone] Jessenia Ward APRN, PACKAGE WINDER [address] [place] [address] documented as of this encounter Visit Diagnoses Diagnosis Neuropathy Mononeuritis of unspecified site documented in this encounter Additional Health Concerns Infection Onset Date Last Indicated Resolved Time ESBL 08/16/2018 08/16/2018 09/28/2023 9:03 AM CDT COVID - 19 03/09/2023 03/09/2023 03/19/2023 12:1 6 AM CDT Respiratory Rule-Out 03/09/2023 03/09/2023 023 2:09 AM CDT COVID - 19 05/07/2023 05/07/2023 05/07/2023 9:50 AM SENIOR PROJECT CONTROLS SPECIALIST COVID - 19 Confirmed 05/07/2023 05/07/2023 023 12:16 AM SENIOR PROJECT CONTROLS SPECIALIST C. difficile Rule-Out 09/24/2023 09/24/20232023 3:41 PM CDT COVID - 19 09/24/2023 09/24/2023 09/24/2023 11:3 2 AM CDT C. difficile Rule-Out 09/27/2023 09/27/20232023 2:13 PM CDT COVID - 19 02/23/2024 02/23/2024 02/23/2024 11:2 8 AM CDT Respiratory Rule-Out 02/23/2024 02/23/2024 024 11:30 AM CDT Assessment Noted Time PHQ-9 Depression Total Score: 2 07/14/19 20 10:00 AM SENIOR PROJECT CONTROLS SPECIALIST documented as of this encounter Care Teams Algorithm Design Engineer Relationship Specialty Start Date End Date Luann Cox MD PCP - General Family Medicine 04/15/15 11/02/22 Josiane Pacheco MD [address] [place] [address] PCP - General Family Medicine 11/20/22 07/30/23 Darwin Marti MD [address] [place] [address] PCP - General Internal Medicine 07/31/23 Blair Paris MD 4 [facility] [address] [place] [address] Consulting Physician Orthopaedic Sports Medicine 07/31/23 Jose A Espinosa MD 2 [facility] [address] [place] [address] Consulting Physician Pain Medicine-Pain Management 07/31/23 02/08/24 Hao Silvestre MD [address] [id number] Consulting Physician Neurological Surgery 07/31/23 Carlos Dailey MD [address]2 [facility] [address] [place] [address] Consulting Physician Colon and Rectal Surgery 10/26/23 Saida Mckeon APRN, CONTRACT LOADER [address] [place] [address] Nurse Practitioner Gastroenterology 10/26/23 Jessenia Ward APRN, PACKAGE WINDER [address] [place] [address] Nurse Practitioner Advanced Practice Nurse 11/17/23 Hao Silvestre MD [address] [address] Consulting Physician Neurological Surgery 02/09/2401/27 Dominic Wang MD [place], [place] Consulting Physician Pain Medicine-Pain Management 02/09/24 Butch Muñiz MD [address] [place] [address] Consulting Physician Neurology 02/23/24 documented as of this encounter
--- OUTSIDE RECORDS SUMMARY | 2024-07-21 15:12 | XMS_ITS | Encounter Summary ---
Author Organization [facility] Address [address] [place] [address] Phone Care Team Providers Care Ornamental Iron Worker Helper Name Role Phone Blair Paris MD Unavailable [phone] Darwin Marti MD Primary Care Provider [phone] Hao Silvestre MD Unavailable +[phone] Carlos Dailey MD Unavailable Saida Mckeon APRN, WALL CLEANER Unavailable Jessenia Ward APRN, VACCINES SOLUTIONS SPECIALIST Unavailable + [phone] Dominic Wang MD Unavailable [phone] Butch Muñiz MD Unavailable +[phone] Reason for Visit * Reason Comments Medication Refill Encounter Details Date Type Department Care Team (Late st Contact Info) Description 03/04/2024 Refill [facility] - Primary Care - [place] [address] [place] [address] Darwin Marti MD [address] [place] [address] Medication Refill Social History Tobacco Use Types Packs/Day Years Used Date Smoking Tobacco: Former Cigarettes 2 41.8 1 964 - 04/09/2005 Smokeless Tobacco: Never Alcohol Use Standard Drinks/Week Comments No 0 (1 standard drink = 0.6 oz pur e alcohol) [facility] Utilities Answer Date Recorded In the [...] often do you attend chur ch or mandaeism services? Never 09/26/2023 Do you belong to any clubs o r organizations such as anabaptist groups, unions, fraternal or athletic groups, or [...] Total Score - Questions 1-9 0 07/2023 [facility] - Occupational Stress [...] place to sleep or slept in a longterm (including now)? No 09/26/2023 Sexually Active Control [...] Miscellaneous Notes * Telephone Encounter - Indra Garcia, RN - 03/04/2024 9:22 AM CDT Refill requested too soon. documented in this encounter Plan of Treatment Upcoming Encounters Date Type Department Care Team (Late st Contact Info) Description 08/11/2024 10:00 AM WINDER CONTORT OPERATOR Office Visit [facility] - Primary Care - [place] [address] [place] [address] Darwin Marti MD [address] [place] [address] 02/20/2025 9:30 AM CDT Office Visit [facility] - Neurology - [place] [address] [place] [address] Jessenia Ward, MONUMENT STONECUTTER, VACCINES SOLUTIONS SPECIALIST [address] [place] [address] documented as of this encounter Visit Diagnoses Not on filedocumented in this encounter Additional Health Concerns Assessment Noted Time PHQ-9 Depression Total Score: 0 07/31/19 24 12:53 PM WINDER CONTORT OPERATOR documented as of this encounter Care Teams Ornamental Iron Worker Helper Relationship Specialty Start Date End Date Darwin Marti MD [address] [place] [address] PCP - General Internal Medicine 07/31/23 Blair Paris MD 4 [facility], [address] [address] Consulting Physician Orthopaedic Sports Medicine 07/31/23 Hao Silvestre MD [address] [facility] [address] [place] [address] Consulting Physician Neurological Surgery 07/31/23 Carlos Dailey MD [address] [address] Consulting Physician Colon and Rectal Surgery 10/26/23 Saida Mckeon APRN, WALL CLEANER [address] [place] [address] Nurse Practitioner Gastroenterology 10/26/23 Jessenia Ward APRN, VACCINES SOLUTIONS SPECIALIST [address] [place] [address] Nurse Practitioner Advanced Practice Nurse 11/17/23 Dominic Wang MD [place], [place] Consulting Physician Pain Medicine-Pain Management 02/09/24 Butch Muñiz MD [address] [place] [address] Consulting Physician Neurology 02/23/24 documented as of this encounter
--- OUTSIDE RECORDS SUMMARY | 2024-07-21 15:12 | XMS_ITS ---
Author Organization [facility] Address [address] [place] [address] Phone Care Team Providers Care Sleeve Maker Name Role Phone DIMITRY DUKESOTHY Mag Primary Care Provider [phone] Plan of Treatment No Plan of Treatment Recorded Assessments Includes: Assessments for all patient encounters No Assessments Recorded Medical Equipment - Implanted Devices Includes: Current and historical Devices No Medical Equipment Recorded Medications Administered Includes: Administered Medications in patient's chart No Administered Medications Recorded Results Includes: Results from 07/21/2023 through 07/21/2024 No Results Recorded For Specified Dates History of Present Illness History of Present Illness not supported for this document type No History of Present Illness Recorded Social History No Social History Recorded - Smoking Status Unknown Medical History Includes: Medical History in patient's chart No Medical History Recorded Family History Includes: Family History in patient's chart No Family History Recorded Review of Systems Review of Systems not supported for this document type No Review of Systems Recorded Mental Status No Mental Status Recorded Functional Status No Functional Status Recorded Physical Exam Physical Exam not supported for this document type No Physical Exam Recorded Insurance Includes: Active Insurance Policies Plan Name Member ID Group # Subscriber Relationship Effect chapin Dates 1 - MEDICARE PART A CLAIMS/NGS [id number] DIPESH BARNES Self Clinical Notes Includes: Signed Clinical Notes starting from 07/18/2022 No Clinical Notes Recorded
--- OUTSIDE RECORDS SUMMARY | 2024-07-21 15:12 | XMS_ITS | Encounter Summary ---
Author Organization [facility] Address [address] [place] [address] Phone Care Team Providers Care Medical Office Administrator Name Role Phone Luann Cox MD Primary Care Provider + [phone] Josiane Pacheco MD Primary Care Provider + [phone] Blair Paris MD Unavailable [phone] Jose A Espinosa MD Unavailable [phone] Darwin Marti MD Primary Care Provider [phone] Hao Silvestre MD Unavailable [phone] Carlos Dailey MD Unavailable Saida Mckeon APRN, OCCUPATIONAL THERAPY MANAGER Unavailable Jessenia Ward APRN, DIRECTOR GLOBAL Unavailable + [phone] Hao Silvestre MD Unavailable +[phone] Dominic Wang MD Unavailable [phone] Butch Muñiz MD Unavailable +[phone] Reason for Visit * Reason Comments Medication Refill Encounter Details Date Type Department Care Team (Late st Contact Info) Description 04/27/2021 Refill [facility] - Primary Care - [place] [address] [place] [phone] Luann Cox MD [address] [place] [address] Medication Refill Social History Tobacco [...] Telephone Encounter - Racquel Campos RN - 04/29/2021 12:16 PM CDT Medication failed the protocol, provider to review and approve the medication order if appropriate. Requested Prescriptions Pending Prescriptions Disp Refills simvastatin (ZOCOR) 40 MG Tablet [Pharmacy Med Name: Simvastatin 40 MG Oral Tablet] 90 Tablet 0 Sig: Take 1 tablet by mouth once daily Hmg CoA Reductase Inhibitors Protocol Passed - 04/27/2021 10:18 AM Passed - Visit with relevant provider in past 12 months or upcoming 90 days Recent Visits Date Type Provider Dept 03/07/21 Office Visit Luann Cox MD [facility] 09/06/20 Office Visit Luann Cox MD [facility] [address] 07/24/20 Office Visit Luann Cox MD [facility] Showing recent visits within past 365 days and meeting all other requirements Future Appointments Date Type Provider Dept 06/13/21 Appointment Luann Cox MD [facility] Showing future appointments within next 90 days [...] Status 03/05/2021 157 (H) <130 mg/dL Final EQ Allergy Relief, Cetirizine, 10 MG Tablet [Pharmacy Med Name: EQ Allergy Relief (Cetirizine) 10 MG Oral Tablet] 90 Tablet 0 Sig: Take 1 tablet by mouth once daily Non-sedating Antihistamines Protocol Failed - 04/27/2021 10:18 AM Failed - Patient less than 65 years of age for Cetirizine or Levocetirizine Passed - Visit with relevant provider in past 12 months or upcoming 90 days Recent Visits Date Type Provider Dept 03/07/21 Office Visit Luann Cox MD [facility] [address] 09/06/20 Office Visit Luann Cox MD [facility] [address] 07/24/20 Office Visit Luann Cox MD [facility] [employer] Showing recent visits within past 365 days and meeting all other requirements Future Appointments Date Type Provider Dept 06/13/21 Appointment Luann Cox MD [facility] Showing future appointments within next 90 days and meeting all other requirements documented in this encounter Plan of Treatment Upcoming Encounters Date Type Department Care Team (Late st Contact Info) Description 08/11/2024 10:00 AM SALES REPRESENTATIVE FACILITY SERVICES [facility] [place] [address] [place] [address] Darwin Marti MD [address] [place] [address] 02/20/2025 9:30 AM CDT Office Visit [facility] - Neurology - [place] [address] [place] [phone] Jessenia Ward APRN, DIRECTOR GLOBAL [address] [place] [address] documented as of this encounter Visit Diagnoses Diagnosis Hyperlipidemia, unspecified hyperlipidemia type documented in this encounter Additional Health Concerns Infection Onset Date Last Indicated Resolved Time ESBL 08/16/2018 08/16/2018 09/28/2023 9:03 AM CDT COVID - 19 03/09/2023 03/09/2023 03/19/2023 12:1 6 AM CDT Respiratory Rule-Out 03/09/2023 03/09/2023 023 2:09 AM CDT COVID - 19 05/07/2023 05/07/2023 05/07/2023 9:50 AM SALES REPRESENTATIVE FACILITY SERVICES COVID - 19 Confirmed 05/07/2023 05/07/2023 023 12:16 AM SALES REPRESENTATIVE FACILITY SERVICES C. difficile Rule-Out 09/24/2023 09/24/20232023 3:41 PM CDT COVID - 19 09/24/2023 09/24/2023 09/24/2023 11:3 2 AM CDT C. difficile Rule-Out 09/27/2023 09/27/20232023 2:13 PM CDT COVID - 19 02/23/2024 02/23/2024 02/23/2024 11:2 8 AM CDT Respiratory Rule-Out 02/23/2024 02/23/2024 024 11:30 AM CDT Assessment Noted Time PHQ-9 Depression Total Score: 2 07/14/19 20 10:00 AM SALES REPRESENTATIVE FACILITY SERVICES documented as of this encounter Care Teams Medical Office Administrator Relationship Specialty Start Date End Date Luann Cox MD PCP - General Family Medicine 04/15/15 11/02/22 Josiane Pacheco MD [address] [place] [address] PCP - General Family Medicine 11/20/22 07/30/23 Darwin Marti MD [address] [place] [address] PCP - General Internal Medicine 07/31/23 Blair Paris MD [address] [facility] [address] [place] [address] Consulting Physician Orthopaedic Sports Medicine 07/31/23 Jose A Espinosa MD 2 [facility] [address] [place] [address] Consulting Physician Pain Medicine-Pain Management 07/31/23 02/08/24 Hao Silvestre MD [address] [id number] Consulting Physician Neurological Surgery 07/31/23 Carlos Dailey MD #2 [facility] [address] [place] [address] Consulting Physician Colon and Rectal Surgery 10/26/23 Saida Mckeon APRN, OCCUPATIONAL THERAPY MANAGER [address] [place] [address] Nurse Practitioner Gastroenterology 10/26/23 Jessenia Ward APRN, DIRECTOR GLOBAL [address] [place] [address] Nurse Practitioner Advanced Practice Nurse 11/17/23 Hao Silvestre MD [address] [phone] Consulting Physician Neurological Surgery 02/09/2401/27 Dominic Wang MD [place], [place] Consulting Physician Pain Medicine-Pain Management 02/09/24 Butch Muñiz MD [address] [place] [address] Consulting Physician Neurology 02/23/24 documented as of this encounter
--- OUTSIDE RECORDS SUMMARY | 2024-07-21 15:12 | XMS_ITS | Encounter Summary ---
Author Organization [facility] Address [address] [place] [address] Phone Care Team Providers Care Records Tech Name Role Phone Luann Cox MD Primary Care Provider + [phone] Josiane Pacheco MD Primary Care Provider + [phone] Blair Paris MD Unavailable [phone] Jose A Espinosa MD Unavailable [phone] Darwin Marti MD Primary Care Provider [phone] Hao Silvestre MD Unavailable [phone] Carlos Dailey MD Unavailable Saida Mckeon APRN, POWER TOOL REPAIRER Unavailable Jessenia Ward APRN, MONOTYPE SETTER Unavailable +- [phone] Hao Silvestre MD Unavailable +[phone] Dominic Wang MD Unavailable [phone] Butch Muñiz MD Unavailable +[phone] Reason for Visit * Reason Comments Medication Refill Encounter Details Date Type Department Care Team ([facility] Contact Info) Description 02/23/20[facility] [place] [address] [place] [address] Luann Cox MD [address] [place] [address] Medication Refill Social History Tobacco [...] have Coronavirus / COVID-19? No / Unsure 02/25/2021 3:51 PM CDT documented as of this encounter Plan of Treatment Upcoming Encounters Date Type Department Care Team ([facility] Contact Info) Description 08/11/2024 10:00 AM BIODIESEL PROCESSING TECHNICIAN Office Visit [facility] [place] [address] [place] [address] Darwin Marti MD [address] [place] [address] 02/20/2025 9:30 AM CDT Office Visit [facility] - Neurology - [place] [address] [place] [address] Jessenia Ward APRN, MONOTYPE SETTER [address] [place] [address] documented as of this encounter Visit Diagnoses Diagnosis Essential hypertension Unspecified essential hypertension documented in this encounter Additional Health Concerns Infection Onset Date Last Indicated Resolved Time ESBL 08/16/2018 08/16/2018 09/28/2023 9:03 AM CDT COVID - 19 03/09/2023 03/09/2023 03/19/2023 12:1 6 AM CDT Respiratory Rule-Out 03/09/2023 03/09/2023 023 2:09 AM CDT COVID - 19 05/07/2023 05/07/2023 05/07/2023 9:50 AM BIODIESEL PROCESSING TECHNICIAN COVID - 19 Confirmed 05/07/2023 05/07/2023 023 12:16 AM BIODIESEL PROCESSING TECHNICIAN C. difficile Rule-Out 09/24/2023 09/24/20232023 3:41 PM CDT COVID - 19 09/24/2023 09/24/2023 09/24/2023 11:3 2 AM CDT C. difficile Rule-Out 09/27/2023 09/27/20232023 2:13 PM CDT COVID - 19 02/23/2024 02/23/2024 02/23/2024 11:2 8 AM CDT Respiratory Rule-Out 02/23/2024 02/23/2024 024 11:30 AM CDT Assessment Noted Time PHQ-9 Depression Total Score: 2 07/14/19 20 10:00 AM BIODIESEL PROCESSING TECHNICIAN documented as of this encounter Care Teams Records Tech Relationship Specialty Start Date End Date Luann Cox MD PCP - General Family Medicine 04/15/15 11/02/22 Josiane Pacheco MD [address] [place] [address] PCP - General Family Medicine 11/20/22 07/30/23 Darwin Marti MD [address] [place] [address] PCP - General Internal Medicine 07/31/23 Blair Paris MD 4 [facility] [address] [place] [address] Consulting Physician Orthopaedic Sports Medicine 07/31/23 Jose A Espinosa MD [address] [address] Consulting Physician Pain Medicine-Pain Management 07/31/23 02/08/24 Hao Silvestre MD [address] [address] Consulting Physician Neurological Surgery 07/31/23 Carlos Dailey MD #[address] [address] Consulting Physician Colon and Rectal Surgery 10/26/23 Saida Mckeon APRN, POWER TOOL REPAIRER [address] [place] [address] Nurse Practitioner Gastroenterology 10/26/23 Jessenia Ward APRN, MONOTYPE SETTER [address] [place] [address] Nurse Practitioner Advanced Practice Nurse 11/17/23 Hao Silvestre MD [address] [place] [address] Consulting Physician Neurological Surgery 02/09/2401/27 Dominic Wang MD [place], [place] Consulting Physician Pain Medicine-Pain Management 02/09/24 Butch Muñiz MD [address] [place] [address] Consulting Physician Neurology 02/23/24 documented as of this encounter
--- OUTSIDE RECORDS SUMMARY | 2024-07-21 15:12 | XMS_ITS | Encounter Summary ---
Author Organization [facility] Address [address] [place] [address] Phone Care Team Providers Care Workplace Relations Adviser Name Role Phone Blair Paris MD Unavailable [phone] Jose A Espinosa MD Unavailable [phone] Darwin Marti MD Primary Care Provider [phone] Hao Silvestre MD Unavailable +[phone] Carlos Dailey MD Unavailable Saida Mckeon APRN, ORIENTAL MEDICINE PRACTITIONER Unavailable Jessenia Ward APRN, HOME PARAPROFESSIONAL Unavailable + [phone] Hao Silvestre MD Unavailable [phone] Dominic Wang MD Unavailable Butch Muñiz MD Unavailable Reason for Visit * Reason Comments Medication Refill Encounter Details Date Type Department Care Team (Late Contact Info) Description 08/18/2023 Refill [facility] - Primary Care - [place] [address] [place] [address] Ranjeet Boston PAC [address] [place] [address] Medication Refill Social History Tobacco [...] Telephone Encounter - Indra Garcia RN - 08/18/2023 1:20 PM CST Duplicate Request HOLOGIST ENGINEERING documented in this encounter Plan of Treatment Upcoming Encounters Date Type Department Care Team (Late Contact Info) Description 08/11/2024 10:00 AM PSYCHOLOGIST ENGINEERING Office Visit [facility] Primary Care - [place] [address] [place] [address] Darwin Marti MD [address] [place] [address] 02/20/2025 9:30 AM CDT Office Visit [facility] - Neurology - [place] [address] [place] [address] Jessenia Ward, BUNG DROPPER, HOME PARAPROFESSIONAL [address] [place] [address] documented as of this encounter Visit Diagnoses [...] Total Score: 0 07/31/19 24 12:53 PM PSYCHOLOGIST ENGINEERING documented as of this encounter Care Teams Workplace Relations Adviser Relationship Specialty Start Date End Date Darwin Marti MD [address] [place] [address] PCP - General Internal Medicine 07/31/23 Blair Paris MD 4 [facility] , [address] [place] [address] Consulting Physician Orthopaedic Sports Medicine 07/31/23 Jose A Espinosa MD 2 [facility] [address] [place] [address] Consulting Physician Pain Medicine-Pain Management 07/31/23 02/08/24 Hao Silvestre MD [address] [address] Consulting Physician Neurological Surgery 07/31/23 Carlos Dailey MD #[address] [address] Consulting Physician Colon and Rectal Surgery 10/26/23 Saida Mckeon APRN, ORIENTAL MEDICINE PRACTITIONER [address] [place] [address] Nurse Practitioner Gastroenterology 10/26/23 Jessenia Ward APRN, HOME PARAPROFESSIONAL [address] [place] [address] Nurse Practitioner Advanced Practice Nurse 11/17/23 Hao Silvestre MD [address] [address] Consulting Physician Neurological Surgery 02/09/2401/27 Dominic Wang MD [place], [place] Consulting Physician Pain Medicine-Pain Management 02/09/24 Butch Muñiz MD [address] [place] [address] Consulting Physician Neurology 02/23/24 documented as of this encounter
--- OUTSIDE RECORDS SUMMARY | 2024-07-21 15:13 | XMS_ITS | Encounter Summary ---
Author Organization [facility] Address [address] [place] [address] Phone Care Team Providers Care Director Financial Services Name Role Phone Luann Cox MD Primary Care Provider + [phone] Josiane Pacheco MD Primary Care Provider + [phone] Blair Paris MD Unavailable [phone] Jose A Espinosa MD Unavailable [phone] Darwin Marti MD Primary Care Provider +[phone] Hao Silvestre MD Unavailable [phone] Carlos Dailey MD Unavailable Saida Mckeon APRN, CONTINUOUS PROCESS COFFEE ROASTER Unavailable Jessenia Ward APRN, FIELD MERCHANDISER Unavailable + [phone] Hao Silvestre MD Unavailable [phone] Dominic Wang MD Unavailable [phone] Butch Muñzi MD Unavailable [phone] Reason for Visit * Reason Comments Medication Refill Encounter Details Date Type Department Care Team (Late st Contact Info) Description 02/15/2020 Refill [facility] [address] [place] [address] Luann Cox MD [address] [place] [address] Medication Refill Social History Tobacco [...] have Coronavirus / COVID-19? No / Unsure 01/26/2020 8:45 AM CDT documented as of this encounter Miscellaneous Notes * Telephone Encounter - Kathleen Cochran RN - 02/16/2020 9:11 AM CDT 3 months ago (11/15/2019) traMADol (ULTRAM) 50 MG Tablet TAKE 1 TABLET BY MOUTH TWICE DAILY NEEDED FOR MILD OR SEVERE PAIN Dispense: 60 Tab? Refills: 0? Start: 11/15/2019? By: Luann Cox MD ? Encounter documented in this encounter Plan of Treatment Upcoming Encounters Date Type Department Care Team (Late st Contact Info) Description 08/11/2024 10:00 AM PRESSER MACHINE [facility] [place] [address] [place] [address] Darwin Marti MD [address] [place] [address] 02/20/2025 9:30 AM CDT Office Visit [facility] - [place] [address] [place] [address] Jessenia Ward APRN, FIELD MERCHANDISER [address] [place] [address] documented as of this encounter Visit Diagnoses Diagnosis History of arthroscopy of left shoulder documented in this encounter Additional Health Concerns Infection Onset Date Last Indicated Resolved Time ESBL 08/16/2018 08/16/2018 09/28/2023 9:03 AM CDT COVID - 19 03/09/2023 03/09/2023 03/19/2023 12:1 6 AM CDT Respiratory Rule-Out 03/09/2023 03/09/2023 023 2:09 AM CDT COVID - 19 05/07/2023 05/07/2023 05/07/2023 9:50 AM PRESSER MACHINE COVID - 19 Confirmed 05/07/2023 05/07/2023 023 12:16 AM PRESSER MACHINE C. difficile Rule-Out 09/24/2023 09/24/20232023 3:41 PM CDT COVID - 19 09/24/2023 09/24/2023 09/24/2023 11:3 2 AM CDT C. difficile Rule-Out 09/27/2023 09/27/20232023 2:13 PM CDT COVID - 19 02/23/2024 02/23/2024 02/23/2024 11:2 8 AM CDT Respiratory Rule-Out 02/23/2024 02/23/2024 024 11:30 AM CDT Assessment Noted Time PHQ-9 Depression Total Score: 2 07/14/19 20 10:00 AM PRESSER MACHINE documented as of this encounter Care Teams Director Financial Services Relationship Specialty Start Date End Date Luann Cox MD PCP - General Family Medicine 04/15/15 11/02/22 Josiane Pacheco MD [address] [place] [address] PCP - General Family Medicine 11/20/22 07/30/23 Darwin Marti MD [address] [place] [address] PCP - General Internal Medicine 07/31/23 Blair Paris MD 4 [facility] [address] [place] [address] Consulting Physician Orthopaedic Sports Medicine 07/31/23 Jose A Espinosa MD 2 [facility] [address] [place] [address] Consulting Physician Pain Medicine-Pain Management 07/31/23 02/08/24 Hao Silvestre MD [address] [address] Consulting Physician Neurological Surgery 07/31/23 Carlos Dailey MD #2 [facility] [address] [place] [address] Consulting Physician Colon and Rectal Surgery 10/26/23 Saida Mckeon APRN, CONTINUOUS PROCESS COFFEE ROASTER [address] [place] [address] Nurse Practitioner Gastroenterology 10/26/23 Jessenia Ward APRN, [facility] [address] [place] [address] Nurse Practitioner Advanced Practice Nurse 11/17/23 Hao Silvestre MD [address] [address] Consulting Physician Neurological Surgery 02/09/2401/27 Dominic Wang MD [place], [place] Consulting Physician Pain Medicine-Pain Management 02/09/24 Butch Muñiz MD [address] [place] [address] Consulting Physician Neurology 02/23/24 documented as of this encounter
--- OUTSIDE RECORDS SUMMARY | 2024-07-21 15:13 | XMS_ITS | Encounter Summary ---
Author Organization [facility] Address [address] [place] [address] Phone Care Team Providers Care Framework Developer Name Role Phone Luann Cox MD Primary Care Provider + [phone] Josiane Pacheco MD Primary Care Provider + [phone] Blair Paris MD Unavailable [phone] Jose A Espinosa MD Unavailable [phone] Darwin Marti MD Primary Care Provider [phone] Hao Silvestre MD Unavailable [phone] Carlos Dailey MD Unavailable Siada Mckeon APRN, NURSE REVIEWER Unavailable Jessenia Ward APRN, ADOPTION MANAGER Unavailable +- [phone] Hao Silvestre MD Unavailable Dominic Wang MD Unavailable [phone] Butch Muñiz MD Unavailable [phone] Encounter Details Date Type Department Care Team (Late Contact Info) Description 01/03/2020 [facility] [address] [place] [address] Luann Cox MD [address] [place] [address] Essential (primary) hypertension; Syncope and collapse; Pulmonary hypertension, unspecified (HCC) Social History Tobacco Use Types Packs/Day Years [...] have Coronavirus / COVID-19? 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 Office Visit [facility] - Primary Care - [place] [address] [place] [phone] Darwin Marti MD [address] [place] [address] 02/20/2025 9:30 AM CDT Office Visit [facility] - Neurology - [place] [address] [facility] [place] [address] Jessenia Ward, TURNER OFF, ADOPTION MANAGER [address] [place] [address] documented as of this encounter Procedures Procedure Name Priority Date/Time Associated Diagnosis Comments CBC WITH AUTO DIFFERENTIAL Routine 01/03/2020 11:00 AM CDT Essential (primary) hypertension Syncope and collapse Pulmonary hypertension, unspecified (HCC) LIPID PANEL Routine 01/03/2020 11:00 AM CDT Essential (primary) hypertension Syncope and collapse Pulmonary hypertension, unspecified (HCC) CMP (COMPREHENSIVE METABOLIC PANEL) Routine 01/03/2020 11:00 AM CDT Essential (primary) hypertension Syncope and collapse Pulmonary hypertension, unspecified (HCC) COMPLETE BLOOD COUNT (CBC) WITH DIFF Routine 01/03/2020 11:00 AM CDT Essential (primary) hypertension Syncope and collapse Pulmonary hypertension, unspecified (HCC) documented in this encounter Results * (ABNORMAL) CBC WITH AUTO DIFFERENTIAL (01/03/2020 11:00 AM CDT) WBC 5.51 4.00 - 12.00 10(3)/mcL 01/03/2020 11:50 AM CDT [facility] RBC 4.18 3.80 - 5.30 10(6)/mcL 01/03/2020 11:50 AM CDT [facility] HEMOGLOBIN (HGB) 13.1 12.0 - 15.8 g/dL 01/03/2020 11:50 AM CDT [facility] HEMATOCRIT (HCT) 40.7 36.0 - 47.0 % 01/03/2020 11:50 AM CDT [facility] MCV 97.4(H) 82.0 - 96.0 fL 01/03/2020 11:50 AM CDT [facility] MCH 31.3 26.0 - 34.0 pg 01/03/2020 11:50 AM CDT [facility] MCHC 32.2 31.0 - 36.0 g/dL 01/03/2020 11:50 AM CDT [facility] PLATELET COUNT 208 140 - 440 10(3)/mcL 01/03/2020 11:50 AM CDT [facility] RDW 13.2 11.8 - 15.5 % 01/03/2020 11:50 AM CDT [facility] MPV 11.7 9.7 - 12.4 fL 01/03/2020 11:50 AM CDT [facility] NEUTROPHILS 68.0 47.0 - 73.0 % 01/03/2020 11:50 AM CDT [facility] LYMPHOCYTES 22.9 18.0 - 42.0 % 01/03/2020 11:50 AM CDT [facility] MONOCYTES 5.6 4.0 - 12.0 % 01/03/2020 11:50 AM CDT [facility] EOSINOPHILS 2.4 0.0 - 5.0 % 01/03/2020 11:50 AM CDT [facility] BASOPHILS 1.1(H) 0.0 - 1.0 % 01/03/2020 11:50 AM CDT [facility] ABSOLUTE NEUTROPHILS 3.75 1.60 - 7.70 10(3)/mcL 01/03/2020 11:50 AM CDT [facility] ABSOLUTE LYMPHOCYTES 1.26(L) 1.30 - 3.20 10(3)/mcL 01/03/2020 11:50 AM CDT [facility] ABSOLUTE MONOCYTES 0.31 0.20 - 1.00 10(3)/mcL 01/03/2020 11:50 AM CDT [facility] ABSOLUTE EOSINOPHIL 0.13 0.00 - 0.40 10(3)/mcL 01/03/2020 11:50 AM CDT [facility] ABSOLUTE BASOPHILS 0.06 0.00 - 0.10 10(3)/mcL 01/03/2020 11:50 AM CDT [facility] NRBC PER 100 WBC 0 01/03/20 20 11:50 AM CDT [facility] Blood Venipuncture / Unknown 01/03/2020 11:00 AM CDT 01/03/2020 11:46 AM CDT us Luann Cox MD HEMATOLOGY ORDERABLES Final Result Performing Organization Address City/[facility] Co de Phone Number [facility] [address] [place] [address] * (ABNORMAL) LIPID PANEL (01/03/2020 11:00 AM CDT) CHOLESTEROL 190 <=200 mg/dL 01/03/2020 12:17 PM CDT [facility] TRIGLYCERIDES 140 <150 mg/dL 01/03/2020 12:17 PM CDT [facility] HDL CHOLESTEROL 54.2 >40 mg/dL 0 12:17 PM CDT [facility] LDL 108 5 - 130 mg/dL 01/03/2020 12:17 PM CDT [facility] VLDL 28 5 - 55 mg/dL 01/03/2020 12:17 PM CDT [facility] CHOL/HDL RATIO 3.5 0.0 - 4.4 01/03/2020 12:17 PM CDT [facility] NON-HDL CHOLESTEROL 135.8(H) <130 mg/dL 01/03/2020 12:17 PM CDT [facility] LIPID FASTING 01/03/2020 12:17 PM CDT [facility] Blood Venipuncture / Unknown 01/03/2020 11:00 AM CDT 01/03/2020 11:46 AM CDT us Luann Cox MD CHEMISTRY ORDERABLES Final R esult Performing Organization Address City/[facility]/ZIP Co de Phone Number [facility] [address] [place] [address] * (ABNORMAL) CMP (COMPREHENSIVE METABOLIC PANEL) (01/03/2020 11:00 AM CDT) SODIUM 136 136 - 144 mmol/L 01/03/2020 12:17 PM CDT [facility] POTASSIUM 4.0 3.5 - 5.1 mmol/L 01/03/2020 12:17 PM CDT [facility] CHLORIDE 100 100 - 110 mmol/L 01/03/2020 12:17 PM CDT [facility] CO2, VENOUS 27 22 - 32 mmol/L 01/03/2020 12:17 PM CDT [facility] ANION GAP 13.0 8.0 - 20.0 mmol/L 01/03/2020 12:17 PM CDT [facility] GLUCOSE 96 70 - 99 mg/dL 01/03/2020 12:17 PM CDT [facility] BUN 17 8 - 23 mg/dL 01/03/2020 12:17 PM CDT [facility] CREATININE, BLOOD 0.69 0.60 - 1.10 mg/dL 01/03/2020 12:17 PM T [facility] BUN/CREATININE RATIO 25(H) 12 - 20 ratio 01/03/2020 12:17 PM T [facility] TOTAL PROTEIN 7.0 6.0 - 8.3 g/dL 01/03/2020 12:17 PM T [facility] ALBUMIN 4.5 3.5 - 5.2 g/dL 01/03/2020 12:17 PM T [facility] Comment: The colormetric methods used for the determination of Albumin may lead to falsely elevated test results in patients suffering from renal failure or insufficiency due to interference with other proteins. A/G RATIO 1.8 1.0 - 2.0 01/03/2020 12:17 PM T [facility] CALCIUM 9.4 8.9 - 10.3 mg/dL 01/03/2020 12:17 PM CDT [facility] T BILI 0.3 <=1.2 mg/dL 01/03/2020 12:17 PM CDT [facility] SGOT (AST) 28 <=32 U/L 01/03/2020 12:17 PM CDT [facility] SGPT (ALT) 30 <=33 U/L 01/03/2020 12:17 PM CDT [facility] ALKALINE PHOSPHATASE 90 35 - 105 U/L 01/03/2020 12:17 PM CDT [facility] GFR, EST. NONAFRICAN >60 >=60 01/03/2020 12:17 PM CDT [facility] GFR, EST. >60 >=60 020 12:17 PM CDT [facility] Comment: Creatinine Clearance is the preferred criteria for selecting drug dose adjustments in renally impaired patients. ??The GFR is provided as additional pertinent clinical information. GFR is reported in mL/min/1.73 sq m. Blood Venipuncture / Unknown 01/03/2020 11:00 AM CDT 01/03/2020 11:46 AM CDT us Luann Cox MD CHEMISTRY ORDERABLES Final R esult [facility] [address] [place] [address] documented in this encounter Visit Diagnoses Diagnosis Essential (primary) hypertension Unspecified essential hypertension Syncope and collapse Pulmonary hypertension, unspecified (HCC) documented in this encounter Additional Health Concerns Infection Onset Date Last Indicated Resolved Time ESBL 08/16/2018 08/16/2018 09/28/2023 9:03 AM CDT COVID - 19 03/09/2023 03/09/2023 03/19/2023 12:1 6 AM CDT Respiratory Rule-Out 03/09/2023 03/09/2023 023 2:09 AM CDT COVID - 19 05/07/2023 05/07/2023 05/07/2023 9:50 AM CENTRAL SUPPLY TECHNICIAN SUPERVISOR COVID - 19 Confirmed 05/07/2023 05/07/2023 023 12:16 AM CENTRAL SUPPLY TECHNICIAN SUPERVISOR C. difficile Rule-Out 09/24/2023 09/24/20232023 3:41 PM CDT COVID - 19 09/24/2023 09/24/2023 09/24/2023 11:3 2 AM CDT C. difficile Rule-Out 09/27/2023 09/27/20232023 2:13 PM CDT COVID - 19 02/23/2024 02/23/2024 02/23/2024 11:2 8 AM CDT Respiratory Rule-Out 02/23/2024 02/23/2024 024 11:30 AM CDT Assessment Noted Time PHQ-9 Depression Total Score: 2 07/14/19 20 10:00 AM CENTRAL SUPPLY TECHNICIAN SUPERVISOR documented as of this encounter Care Teams Framework Developer Relationship Specialty Start Date End Date Luann Cox MD PCP - General Family Medicine 04/15/15 11/02/22 Josiane Pacheco MD [address] [place] [address] PCP - General Family Medicine 11/20/22 07/30/23 Darwin Marti MD [address] [place] [address] PCP - General Internal Medicine 07/31/23 Blair Paris MD 4 [facility] , [address] [place] [address] Consulting Physician Orthopaedic Sports Medicine 07/31/23 Jose A Espinosa MD 2 [facility] [address] [place] [address] Consulting Physician Pain Medicine-Pain Management 07/31/23 02/08/24 Hao Silvestre MD [address] [address] Consulting Physician Neurological Surgery 07/31/23 Carlos Dailey MD #[address] [address] Consulting Physician Colon and Rectal Surgery 10/26/23 Saida Mckeon APRN, NURSE REVIEWER [address] [place] [address] Nurse Practitioner Gastroenterology 10/26/23 Jessenia Ward APRN, ADOPTION MANAGER [address] [place] [address] Nurse Practitioner Advanced Practice Nurse 11/17/23 Hao Silvestre MD [address] [address] Consulting Physician Neurological Surgery 02/09/2401/27 Dominic Wang MD [place], [place] Consulting Physician Pain Medicine-Pain Management 02/09/24 Butch Muñiz MD #[address] [place] [address] Consulting Physician Neurology 02/23/24 documented as of this encounter
--- OUTSIDE RECORDS SUMMARY | 2024-07-21 15:13 | XMS_ITS | Clinical Summary ---
Author Organization [facility] Medical Office Building B Address [address] [place] [address] Care Team Providers Care Rn Or Lpn Name Role Phone Luann Cox MD Primary Care Provider Allergies Active Allergy Reactions Criticality Noted Date Comments Aspirin Other (See comments) Reaction: Unknown, , , Celecoxib Cephalosporins Codeine Other (See comments),Palpitati ons Reaction: Unknown, , Reaction: Altered Heart Rate, Corticosteroids (Glucocorticoids) Fish Containing Products Other (See comments) Reaction: Unknown, Hydrocodone Vomiting Reaction: Vomiting, Ibuprofen Other (See comments) Medium 06/15/2017 Hx ulcer - was told not to take ibuprofen Kiwi Other (See comments) Reaction: Unknown, Latex Other (See comments) Reaction: Unknown, , , Meperidine Mercury Morphine Neuromuscular Blockers, Steroidal Oxycodone Vomiting Reaction: Vomiting, Penicillins Other (See comments) Reaction: Unknown, [place] Sulfa (Sulfonamide Antibiotics) Other (See comments) Reaction: Unknown, Sulfanilamide Tetanus And Diphtheria Toxoids Tetanus Toxoid Tetanus Vaccines And Toxoid Medications albuterol HFA (PROVENTIL HFA) 90 mcg/actuation inhaler Two puffs three times per day 0 0 05/08/20 09 Active cholecalcifero l (VITAMIN D-3) 1,000 unit capsule 0 0 11/11/19 17 Active meloxicam (MOBIC) 15 mg tablet take 1 tablet by oral route every day 0 0 11/11/[address] (PROTONIX) 40 mg EC tablet take 1 tablet by oral route every day 0 0 11/11/19 17 Active simvastatin (ZOCOR) 40 mg tablet take 1 tablet by oral route every day in the evening 0 0 02/20/20 15 Active multivit-iron- min-folic acid (multivitamin- iron-minerals- folic acid) 3,500-18-0.4 unit-mg-mg tablet,chewabl e 0 0 02/20/20 15 Active mometasone-for moterol (DULERA) 100-5 mcg/actuation inhaler inhale 2 puff by inhalation route 2 times every day in the morning and evening 0 Inhaler 0 02/20/20 15 Active mirabegron ER (MYRBETRIQ) 50 mg tablet extended release 24 hr take 1 tablet by oral route every day swallowing whole with water. Do not crush, chew and/or divide. 0 0 02/20/20 15 Active ascorbic acid (VITAMIN C) 500 mg tablet,chewabl e Take 1 tablet by mouth 2 times daily until finished 60 tablet/chew tab 11/20/19 18 Active gabapentin (NEURONTIN) 300 mg capsule TAKE ONE CAPSULE BY MOUTH THREE TIMES DAILY FOR 90 DAYS 09/10/19 18 Active cetirizine (ZyrTEC) 10 mg tablet 12/15/19 18 Active hydroCHLOROthi azide (HYDRODIURIL) 25 mg tablet TAKE ONE TABLET BY MOUTH ONCE DAILY 08/10/19 18 Active levothyroxine (SYNTHROID, LEVOTHROID) 50 mcg tablet 12/15/19 18 Active meclizine (ANTIVERT) 25 mg tablet TAKE 1 TABLET BY MOUTH THREE TIMES DAILY NEEDED 11/04/19 18 Active metoprolol (LOPRESSOR) 25 mg tablet Take 1 tablet (25 mg total) by mouth 2 (two) times a day 11/04/19 18 Active clopidogreL (PLAVIX) 75 mg tablet Take 1 tablet (75 mg total) by mouth daily 11/30/[address] (CYMBALTA) 30 mg capsule Take 1 capsule (30 mg total) by mouth daily 12/17/19 22 Active hydrOXYzine (VISTARIL) 25 mg capsule Take 1 capsule (25 mg total) by mouth every 4 (four) hours as needed 01/12/20 20 Active ondansetron (ZOFRAN) 4 mg tablet Every 4-6 hours as needed 30 tablet 1 06/30/19 25 Active traMADoL (ULTRAM) 50 mg tablet Take 1 tablet (50 mg total) by mouth every 6 (six) hours as needed for pain 28 tablet 06/30/19 25 Active polyethylene glycol (MIRALAX) 17 gram packet Take 1 packet (17 g total) by mouth 12/02/19 18 025 Discontinued(Th erapy completed) senna-docusate (PERICOLACE) 8.6-50 mg Take by mouth 12/02/19 18 025 Discontinued(Th erapy completed) traMADoL (ULTRAM) 50 mg tablet Take 1 tablet (50 mg total) by mouth every 6 (six) hours as needed for pain 28 tablet 06/30/19 25 025 Discontinued Active Problems Problem Noted Date Diagnosed Date Trigger ring finger of left hand 06/02/2024 DDD (degenerative disc disease), lumbar 07/29/19 23 Lumbar facet arthropathy 07/29/2022 Chronic left shoulder pain 07/04/2022 Chronic bilateral low back pain without sciatica 07/04/2022 Lumbar radiculopathy 07/04/2022 jail current use of 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 3 Insomnia secondary to chronic pain 07/04/2022 Anemia 10/08/2021 Blurred vision 10/08/2021 Shortness of breath 10/08/2021 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 Seizure 06/27/2021 Chronic pain syndrome 06/12/2021 GERD (gastroesophageal reflux disease) 1 HLD (hyperlipidemia) 03/28/2021 Multinodular goiter 03/28/2021 Osteopenia 03/28/2021 Prediabetes 03/28/2021 Degenerative lumbar spinal stenosis 03/28/2021 Urge incontinence 03/28/2021 Orbital lesion 03/07/2021 Recurrent syncope 01/12/2020 Vestibular migraine 11/18/2019 Allergic rhinitis 07/14/2019 Backache 04/02/2015 Overview (05/12/2022): Back pain Back pain Asthma 04/02/2015 Overview (10/03/2016): Asthma Knee pain 02/19/2015 Overview (10/03/2016): Knee pain Arthritis 02/19/2015 Overview (10/03/2016): Arthritis Hypertension 02/19/2015 Overview (10/03/2016): Hypertension MVP (mitral valve prolapse) 02/19/2015 Overview (05/12/2022): Mitral valve prolapse Former smoker 02/19/2015 Overview (10/03/2016): Ex smoker Encounters Date Type Department Care Team Description 07/14/2024 11:15 AM TYPEWRITER ASSEMBLER Office Visit [facility] Orthopedic and Sports Medicine [address] [place] [address] [phone] Ev Campos PA Aftercare following surgery of the musculoskeletal system (Primary Dx) 07/01/2024 Telephone [facility] Orthopedics and Sports Medicine [address] [facility] [address] [place] [address] Ernst Drummond, HERMINIA 06/30/2024 7:45 AM TYPEWRITER ASSEMBLER - 06/30/2024 8:30 AM TYPEWRITER ASSEMBLER Surgery [facility] Operating Room [address] [place] [address] Blair Paris MD Left ring trigger finger release 06/30/2024 7:01 AM TYPEWRITER ASSEMBLER - 06/30/2024 8:39 AM TYPEWRITER ASSEMBLER Hospital Encounter [facility] Operating Room [address] [place] [address] Blair Paris MD Trigger ring finger of left hand (Primary Dx) Discharge Disposition: Discharge to home or self care 05/19/2024 12:00 PM TYPEWRITER ASSEMBLER Ancillary Procedure [facility] Imaging at [address] [address] 05/19/2024 11:30 AM TYPEWRITER ASSEMBLER Office Visit [facility] Orthopedic and Sports Medicine [address] [place] [address] [phone] Ev Campos PA Trigger finger, left ring finger (Primary Dx) 05/19/2024 Telephone [facility] Orthopedic and Sports Medicine [facility] [place] [address] Ev Campos PA Surgical Clearance from Last 3 Months Surgical History Surgery Date Site/Laterality Comments TONSILLECTOMY 2009 Tonsillectomy APPENDECTOMY 2009 Appendectomy HYSTERECTOMY 2009 Hysterectomy BRAIN TUMOR EXCISION JOINT REPLACEMENT Medical History Medical History Date Comments History of multiple allergies Al lergies Asthma Asthma Peptic ulcer Peptic ulcer dis ease Arthritis Arthritis Hx Other Medical Hysterectomy 30 years ago.; Comments: [facility] 02/20/2015 - Hx Other Medical Breast tumors 2 8 years ago.; Comments: [facility] 02/20/2015 - Hx Other Medical Right knee A&A 03-07-15.; Comments: [facility] 03/20/2015 - Hx Other Medical Right total kne e replacement 06-27-15.; Comments: [facility] 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 MVP Allergic rhinitis GERD (gastroesophageal reflux disease) Seizures (HCC) Headache Hypertension Family History Medical History Relation Name Comments Arthritis Other 1 Cancer Other 1 Family history of Cancer -; Diabetes Other 1 Gout Other 1 Heart disease Other 1 Kidney disease Other 1 Lung disease Other 1 Diabetes type II Other 2 Family hist ory of Diabetes -Type II; Hyperlipidemia Other 3 Family histor y of Hyperlipidemia; Hypertension Other 4 Family history of Hypertension; Osteoarthritis Other 5 Family histor y of Osteoarthritis; Stroke Other 6 Family history of Stroke; Other Other 7 Family history of early heart attack, early stroke, diabetes, hypertension and arthritis.; Relation Name Status Comments Other 1 Other 2 Other 3 Other 4 Other 5 Other 6 Other 7 Social History Tobacco Use Types Packs/Day Years Used Date Smoking Tobacco: Former Cigarettes Smokeless Tobacco: Never Tobacco Cessation:Counseling Given: Not Answered Alcohol Use Standard Drinks/Week Comments No 0 (1 standard drink = 0.6 oz pur e alcohol) AUDIT-C Answer Date Recorded Q1: How often do you have a drink containing alc ohol? Monthly or less 06/20/2024 Q2: How many drinks containi ng alcohol do you have on a typical day when you are drinking? 1 or 2 06/20/2024 Q3: How often do you have si x or more drinks on one occasion? Never 06/20/2024 PHQ-2 Answer Date Recorded PHQ-2 Total Score (If total score is 3 or more points, staff should administer the PHQ-9) 3 07/04/2022 Personal Safety Answer Date Recorded Have you ever been in or are you currently in a harmful physical or emotional relationship or is someone making you feel afraid or unsafe? Denies 06/30/2024 Comments No Sex and Gender Information Value Date Recorded Sex Assigned at Not on file Legal Sex Female 6:41 PM TYPEWRITER ASSEMBLER Gender Identity Not on file Sexual Orientation Not on file Obstetrics History Last Filed Vital Signs Vital Sign Reading Time Taken Comments Blood Pressure 132/93 07/14/2024 11:06 AM TYPEWRITER ASSEMBLER Pulse 99 07/14/2024 11:06 AM TYPEWRITER ASSEMBLER Temperature 36.9 ??C (98.4 ??F) 06/30/2024 8:25 AM CS T Respiratory Rate 0 06/30/2024 8:30 AM TYPEWRITER ASSEMBLER Oxygen Saturation 99% 06/30/2024 8:25 AM TYPEWRITER ASSEMBLER Inhaled Oxygen Concentration - - Weight 75.8 kg (167 lb) 07/14/2024 11:06 AM TYPEWRITER ASSEMBLER Height 162.6 cm (5' 4 ) 07/14/2024 11:06 AM TYPEWRITER ASSEMBLER Body Mass Index 28.67 07/14/2024 11:06 AM TYPEWRITER ASSEMBLER Plan of Treatment Health Maintenance Due Date Last Done Comments Hepatitis C Screening 1950 Hepatitis B Screening 01/15/1966 DTaP/Tdap/Td Vaccine (1 - Tdap) 06/30/1998 9 Well Visit 65+ 01/15/2013 Zoster Vaccine (2 of 3) 03/24/2013 01/27/2013 Depression Screening 07/04/2023 07/04/2022, 07/04/19 23 Osteoporosis Screening-Bone Density Scan 08/09/2023 08/09/2021, 08/09/2021, 04/23/2017, Additional history exists Covid-19 Vaccine (4 - 2023-2 5 season) 2024 07/01/2021, 11/06/2020, 10/09/2020 Fall Risk Assessment 06/02/2025 06/02/2024 Pneumococcal vaccine 65+ Completed 09/23/2016, 08/06/2012 Breast Cancer Screening-Mammogram Discontinued 03/08/2020, 03/08/2020, 02/18/2018 Influenza Vaccine Completed 03/18/2024, , 04/22/2022, Additional history exists Procedures Procedure Name Priority Date/Time Associated Diagnosis Comments RELEASE TRIGGER FINGER 06/30/2024 7:35 AM TYPEWRITER ASSEMBLER Trigger ring finger of left hand XR HAND LEFT 3 OR MORE VIEWS Schedule Routine, Read Routine (OP Routine) 05/19/2024 12:07 PM TYPEWRITER ASSEMBLER Trigger finger, left ring finger DEXA AXIAL SKELETON BONE DENSITY 1 OR MORE SITES Schedule Routine, Read Routine (OP Routine) 04/23/2017 4:40 PM CDT from Last 3 Months or Most Recently Relevant to Health Maintenance Results * XR Hand Left 3+ Vw (05/19/2024 12:07 PM TYPEWRITER ASSEMBLER) Anatomical Region Laterality Modality Upper Extremities, Hand Left Digital Radiography Narrative 05/21/2024 10:44 AM TYPEWRITER ASSEMBLER Radiographs of the left hand reviewed, interpreted. ??No acute fractures or destructive osseous lesions. ??Mild degenerative changes present of the intercarpal, metacarpal phalangeal and interphalangeal joints Ev NICOLE IMG XR PROCEDURES Final Result * Dexa Axial Skeleton Bone Density 1 or 2 Site (04/23/2017 4:40 PM CDT) Anatomical Region Laterality Modality N/A Nuclear Medicine 04/23/2017 4:40 PM CDT Narrative 04/23/2017 9:07 PM CDT DEXA Bone Density Axial ??Acc#: ??[id number] DATE OF EXAM: ??Apr 23 2017 ?? EXAM: DEXA Bone Density Axial HISTORY: Screening for osteoporosis. Assess bone density COMPARISON: None FINDINGS: The mean bone mineral content of the lumbar spine is 0.888 g/cm2 ?? . The T-score is -1.4 consistent with osteopenia. The mean bone mineral content of the hip is 0.656 g/cm2 ?? . The T-score is -1.7 consistent with osteopenia. IMPRESSION: 1. ??Osteopenia in the lumbar spine and left hip region. 2. ??10 year fracture risk for major ostia prior fracture 13% and hip fracture 2.2% COMMENT: W.H.O. defines the T-score of between -1 and -2.5 as osteopenia, the level at which there may be an increased risk of developing osteoporosis and fractures in the future. ??Osteoporosis is defined as T-score lower than -2.5 (significantly increased risk of fracture due to osteoporosis). ??T-score is a comparison to peak bone mineral density of young adult reference population. ??Z-score is a comparison to bone mineral density of sex and age group population. ?? Electronically signed by: Dianelys Solorzano M.D. Edited by: Gretchen Ray Electronically signed by: Dianelys Solorzano M.D. Interpreting Physician: ??DIANELYS SOLORZANO M.D. ??Read on: ??Apr 23 2017 ?? 3:34P Transcribed by: ??PSC ??On: Apr 23 2017 ??4:05P Approved Electronically by: ??JEANINE Jewell, DIANELYS ??on: ??Apr 23 2017 ?? 4:05P Ordering DR: JAY WYLIE Attending DR: JAY WYLIE Attending: ??JAY WYLIE Requesting: ??JAY WYLIE Requesting Fax: ??[phone] Attending Fax: ??-- Attending ID: ??[id number] Requesting ID: ??[id number] Report To 1 ID: ??[id number] Report To 1 Name: ??JAY WYLIE Report To 1 FAX: ??-- NextGen Order #: ??[id number] Procedure Note Miscellaneous, Not In File - 04/23/2017 DEXA Bone Density Axial Acc#: [id number] DATE OF EXAM: Apr 23 2017 EXAM: DEXA Bone Density Axial HISTORY: Screening for osteoporosis. Assess bone density COMPARISON: None FINDINGS: The mean bone mineral content of the lumbar spine is 0.888 g/cm2 . The T-score is -1.4 consistent with osteopenia. The mean bone mineral content of the hip is 0.656 g/cm2 . The T-score is -1.7 consistent with osteopenia. IMPRESSION: 1. Osteopenia in the lumbar spine and left hip region. 2. 10 year fracture risk for major ostia prior fracture 13% and hip fracture 2.2% COMMENT: W.H.O. defines the T-score of between -1 and -2.5 as osteopenia, the level at which there may be an increased risk of developing osteoporosis and fractures in the future. Osteoporosis is defined as T-score lower than -2.5 (significantly increased risk of fracture due to osteoporosis). T-score is a comparison to peak bone mineral density of young adult reference population. Z-score is a comparison to bone mineral density of sex and age group population. Electronically signed by: Dianelys Solorzano M.D. Edited by: Gretchen Ray Electronically signed by: Dianelys Solorzano M.D. Interpreting Physician: DIANELYS SOLORZANO M.D. Read on: Apr 23 2017 3:34P Transcribed by: CAMILLA On: Apr 23 2017 4:05P Approved Electronically by: DIANELYS SOLORZANO M.D. on: Apr 23 2017 4:05P Ordering DR: JAY WYLIE Attending DR: JAY WYLIE Attending: JAY WYLIE Requesting: JAY WYLIE Requesting Attending Fax: -- Attending ID: [id number] Requesting ID: [id number] Report To 1 ID: [id number] Report To 1 Name: JAY WYLIE Report To 1 FAX: -- NextGen Order #: [id number] Jay Wylie MD IMG DXA PROCEDURES Final R esult from Last 3 Months or Most Recently Relevant to Health Maintenance Insurance [place] [address] [place] [address] Care Teams Rn Or Lpn Relationship Specialty Start Date End Date Luann Cox MD PCP - General 05/08/09
--- OUTSIDE RECORDS SUMMARY | 2024-07-21 15:13 | XMS_ITS | Encounter Summary ---
Author Organization [facility] Address [address] [place] [address] Phone Care Team Providers Care Therapist Asst Name Role Phone Luann Cox MD Primary Care Provider + [phone] Josiane Pacheco MD Primary Care Provider + [phone] Blair Paris MD Unavailable [phone] Jose A Espinosa MD Unavailable [phone] Darwin Marti MD Primary Care Provider [phone] Hao Silvestre MD Unavailable [phone] Carlos Dailey MD Unavailable Saida Mckeon APRN, BIOLOGICAL AIDE Unavailable Jessenia Ward APRN, POLICE JUDGE Unavailable +- [phone] Hao Silvestre MD Unavailable [phone] Dominic Wang MD Unavailable [phone] Butch Muñiz MD Unavailable [phone] Reason for Visit * Reason Comments Medication Refill Encounter Details Date Type Department Care Team (Late st Contact Info) Description 04/06/2020 Refill [facility] [address] [place] [address] Luann Cox MD [address] [place] [address] Medication Refill Social History [...] have Coronavirus / COVID-19? No / Unsure 03/08/2020 10:00 AM CDT documented as of this encounter Miscellaneous Notes * Telephone Encounter - Lavern Rosa RN - 04/09/2020 10:43 AM CDT Medication failed the protocol, provider to review and approve the medication order. Requested Prescriptions Pending Prescriptions Disp Refills meloxicam (MOBIC) 15 MG Tablet [Pharmacy Med Name: Meloxicam 15 MG Oral Tablet] 90 Tab 0 Sig: Take 1 tablet by mouth once daily Analgesics: COX2 Inhibitors Passed - 04/06/2020 11:39 AM Passed - Valid encounter within last 6 months Past Office Visits Recent Outpatient Visits 2 months ago Essential hypertension [facility] Luann Cox MD 9 months ago Essential hypertension [facility] Luann Torres MD 1 year ago Essential [facility] 1 year [facility] Syncope, unspecified syncope type [facility] Luann Torres MD 1 year ago Sore throat [facility] Upcoming Appointments Future Appointments In [address], [facility] In 3 months [facility], [facility] In 3 months Luann Cox MD [facility] JORDAN MAN - Recent and Past Visits Recent Visits Date Type Provider Dept 01/12/20 Office Visit Luann Cox MD [facility] 07/14/19 Office Visit Luann Cox MD [facility] 01/11/19 Office Visit Luann Cox MD [facility] Showing recent visits within past 460 days with a meds authorizing provider and meeting all other requirements Future Appointments No visits were found meeting these conditions. Showing future appointments within next 90 days with a meds authorizing provider and meeting all other requirements Signed Prescriptions Disp Refills pantoprazole (PROTONIX) 40 MG Tablet Delayed Response 90 Tab 0 Sig: Take 1 tablet by mouth once daily Gastroenterology: Antiulcer - Proton Pump Inhibitors Passed - 04/06/2020 11:39 AM Passed - Valid encounter within last 12 months Past Office Visits Recent Outpatient Visits 2 months ago Essential hypertension [facility] Luann Cox MD 9 months ago Essential hypertension [facility] Luann Torres MD 1 year ago Essential hypertension [facility] - Luann Torres MD 1 year ago Syncope, unspecified syncope type [facility], Luann, MD 1 year ago Sore throat [facility] - Luann Torres MD Upcoming Appointments Future Appointments In 1 month [facility] MRI, [facility] In 3 months Lab, [place] [facility] In 3 months Luann Cox MD [facility] JORDAN MAN - Recent and Past Visits Recent Visits Date Type Provider Dept 01/12/20 Office Visit Luann Cox MD [facility] 07/14/19 Office Visit Luann Cox MD [facility] 01/11/19 Office Visit Luann Cox MD [facility] Showing recent visits within past 460 [...] st Contact Info) Description 08/11/2024 10:00 AM EXERCISE EQUIPMENT SPECIALIST Office Visit [facility] Primary Care - [place] [address] [place] [address] Darwin Marti MD [address] [place] [address] 02/20/2025 9:30 AM CDT Office Visit [facility] Neurology - [place] [address] [place] [address] Jessenia Ward APRN, POLICE JUDGE [address] [place] [address] documented as of this encounter Visit Diagnoses Diagnosis Gastroesophageal reflux disease Esophageal reflux documented in this encounter Additional Health Concerns Infection Onset Date Last Indicated Resolved Time ESBL 08/16/2018 08/16/2018 09/28/2023 9:03 AM CDT COVID - 19 03/09/2023 03/09/2023 03/19/2023 12:1 6 AM CDT Respiratory Rule-Out 03/09/2023 03/09/2023 023 2:09 AM CDT COVID - 19 05/07/2023 05/07/2023 05/07/2023 9:50 AM EXERCISE EQUIPMENT SPECIALIST COVID - 19 Confirmed 05/07/2023 05/07/2023 023 12:16 AM EXERCISE EQUIPMENT SPECIALIST C. difficile Rule-Out 09/24/2023 09/24/20232023 3:41 PM CDT COVID - 19 09/24/2023 09/24/2023 09/24/2023 11:3 2 AM CDT C. difficile Rule-Out 09/27/2023 09/27/20232023 2:13 PM CDT COVID - 19 02/23/2024 02/23/2024 02/23/2024 11:2 8 AM CDT Respiratory Rule-Out 02/23/2024 02/23/2024 024 11:30 AM CDT Assessment Noted Time PHQ-9 Depression Total Score: 2 07/14/19 20 10:00 AM EXERCISE EQUIPMENT SPECIALIST documented as of this encounter Care Teams Therapist Asst Relationship Specialty Start Date End Date Luann Cox MD PCP - General Family Medicine 04/15/15 11/02/22 Josiane Pacheco MD [address] [place] [address] PCP - General Family Medicine 11/20/22 07/30/23 Darwin Marti MD [address] [place] [address] PCP - General Internal Medicine 07/31/23 Blair Paris MD 4 [facility] [address] [place] [address] Consulting Physician Orthopaedic Sports Medicine 07/31/23 Jose A Espinosa MD 2 [facility] [address] [place] [address] Consulting Physician Pain Medicine-Pain Management 07/31/23 02/08/24 Hao Silvestre MD [address] [address] Consulting Physician Neurological Surgery 07/31/23 Carlos Dailey MD [address] [facility] [address] [place] [address] Consulting Physician Colon and Rectal Surgery 10/26/23 Saida Mckeon APRN, BIOLOGICAL AIDE [address] [place] [address] Nurse Practitioner Gastroenterology 10/26/23 Jessenia Ward APRN, POLICE JUDGE [address] [place] [address] Nurse Practitioner Advanced Practice Nurse 11/17/23 Hao Silvestre MD [address] [address] Consulting Physician Neurological Surgery 02/09/2401/27 Dominic Wang MD [place], [place] Consulting Physician Pain Medicine-Pain Management 02/09/24 Butch Muñiz MD [address] [place] [address] Consulting Physician Neurology 02/23/24 documented as of this encounter
--- OUTSIDE RECORDS SUMMARY | 2024-07-21 15:13 | XMS_ITS | Referral Summary ---
Author Organization [facility] Medical Office Building B Address [address] [place] [address] Care Team Providers Care Manager Spa Name Role Phone Luann Cox MD Primary Care Provider [phone] Encounters Date Type Department Care Team Description 07/14/2024 11:15 AM DOWEL SANDER OPERATOR Office Visit [facility] Medical Group Orthopedic and Sports Medicine [address] [place] [address] Ev Campos PA Aftercare following surgery of the musculoskeletal system (Primary Dx) 07/01/2024 Telephone [facility] Medical [facility] Orthopedics and Sports Medicine [address] [facility] [address] [place] [address] Ernst Drummond ATC 06/30/2024 7:45 AM DOWEL SANDER OPERATOR - 06/30/2024 8:30 AM DOWEL SANDER OPERATOR Surgery [facility] Operating Room [address] [place] [address] Blair Paris MD Left ring trigger finger release 06/30/2024 7:01 AM DOWEL SANDER OPERATOR - 06/30/2024 8:39 AM DOWEL SANDER OPERATOR Hospital Encounter [facility] Operating Room [address] [place] [address] Blair Paris MD Trigger ring finger of left hand (Primary Dx) Discharge Disposition: Discharge to home or self care 05/19/2024 Telephone [facility] Orthopedic and Sports Medicine [address] [place] [address] Ev Campos PA Surgical Clearance 05/19/2024 12:00 PM DOWEL SANDER OPERATOR Ancillary Procedure [facility] Imaging at [address] [phone] 05/19/2024 11:30 AM DOWEL SANDER OPERATOR Office Visit [facility] Orthopedic and Sports Medicine [address] [place] [address] Ev Campos PA Trigger finger, left ring finger (Primary Dx) from Last 3 Months Allergies Active Allergy Reactions Criticality Noted Date [...] Vomiting, Penicillins Other (See comments) Reaction: Unknown, [place] Sulfa (Sulfonamide Antibiotics) Other (See comments) Reaction: [...] pain without sciatica 07/04/2022 Lumbar radiculopathy 07/04/2022 termite control servicer current use of 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 3 Insomnia secondary [...] Former smoker 02/19/2015 Overview (10/03/2016): Ex smoker Social History Tobacco Use Types Packs/Day Years [...] on file Legal Sex Female 6:41 PM DOWEL SANDER OPERATOR Gender Identity Not on file Sexual Orientation Not on file Last Filed Vital Signs Vital Sign Reading Time Taken Comments Blood Pressure 132/93 07/14/2024 11:06 AM DOWEL SANDER OPERATOR Pulse 99 07/14/2024 11:06 AM DOWEL SANDER OPERATOR Temperature 36.9 ??C (98.4 ??F) 06/30/2024 8:25 AM CS T Respiratory Rate 0 06/30/2024 8:30 AM DOWEL SANDER OPERATOR Oxygen Saturation 99% 06/30/2024 8:25 AM DOWEL SANDER OPERATOR Inhaled Oxygen Concentration - - Weight 75.8 kg (167 lb) 07/14/2024 11:06 AM DOWEL SANDER OPERATOR Height 162.6 cm (5' 4 ) 07/14/2024 11:06 AM DOWEL SANDER OPERATOR Body Mass Index 28.67 07/14/2024 11:06 AM DOWEL SANDER OPERATOR Plan of Treatment Not on file Procedures Procedure Name Priority Date/Time Associated Diagnosis Comments RELEASE TRIGGER FINGER 06/30/2024 7:35 AM DOWEL SANDER OPERATOR Trigger ring finger of left hand XR HAND LEFT 3 OR MORE VIEWS Schedule Routine, Read Routine (OP Routine) 05/19/2024 12:07 PM DOWEL SANDER OPERATOR Trigger finger, left ring finger DEXA AXIAL SKELETON BONE DENSITY 1 OR MORE SITES Schedule Routine, Read Routine (OP Routine) 04/23/2017 4:40 PM CDT from Last 3 Months or Most Recently Relevant to Health Maintenance Results * XR Hand Left 3+ Vw (05/19/2024 12:07 PM DOWEL SANDER OPERATOR) Anatomical Region Laterality Modality Upper Extremities, Hand Left Digital Radiography Narrative 05/21/2024 10:44 AM DOWEL SANDER OPERATOR Radiographs of the left hand reviewed, interpreted. [...] PM CDT DEXA Bone Density Axial ??Acc#: ??[id number] DATE OF EXAM: ??Apr 23 2017 ?? [...] ??JAY WYLIE Requesting: ??JAY WYLIE Requesting Fax: ??[phone] Attending Fax: ??-- Attending ID: ??[id number] Requesting ID: ??[id number] Report To 1 ID: ??[id number] Report To 1 Name: ??JAY WYLIE Report To 1 FAX: ??-- NextGen Order #: ??[id number] Procedure Note Miscellaneous, Not In File - 04/23/2017 DEXA Bone Density Axial Acc#: [id number] DATE OF EXAM: Apr 23 2017 EXAM: [...] on: Apr 23 2017 3:34P Transcribed by: [facility] On: Apr 23 2017 4:05P Approved Electronically by: DIANELYS SOLORZANO M.D. on: Apr 23 2017 4:05P Ordering DR: JAY WYLIE Attending DR: JAY WYLIE Attending: JAY WYLIE Requesting: JAY WYLIE Requesting Attending Fax: -- Attending ID: [id number] Requesting ID: [id number] Report To 1 ID: [id number] Report To 1 Name: JAY WYLIE Report To 1 FAX: -- NextGen Order #: [id number] Jay Wylie MD IMG DXA PROCEDURES Final R esult from Last 3 Months or Most Recently Relevant to Health Maintenance Insurance [facility]IC[facility] [place] [address] MEDICARE [facility] Care Teams Manager Spa Relationship Specialty Start Date End Date Luann Cox MD PCP - General 05/08/09
--- OUTSIDE RECORDS SUMMARY | 2024-07-21 15:13 | XMS_ITS | Encounter Summary ---
Author Organization [facility] Address [address] [place] [address] Phone Care Team Providers Care Machine Shop Repair Technician Name Role Phone Luann Cox MD Primary Care Provider + [phone] Josiane Pacheco MD Primary Care Provider + [phone] Blair Paris MD Unavailable [phone] Jose A Espinosa MD Unavailable [phone] Darwin Marti MD Primary Care Provider [phone] Hao Silvestre MD Unavailable [phone] Carlos Dailey MD Unavailable Saida Mckeon APRN, HAND BANDER Unavailable Jessenia Ward APRN, OFFICE ASSISTANT RECEPTIONIST Unavailable + [phone] Hao Silvestre MD Unavailable +[phone] Dominic Wang MD Unavailable [phone] Butch Muñiz MD Unavailable +[phone] Reason for Visit * Reason Comments Medication Refill Encounter Details Date Type Department Care Team (Late st Contact Info) Description 01/21/2020 Refill [facility] [address] [place] [phone] Luann Cox MD [address] [place] [address] Medication Refill Social History Tobacco [...] have Coronavirus / COVID-19? No / Unsure 01/12/2020 9:59 AM CDT documented as of this encounter Miscellaneous Notes * Telephone Encounter - Carey Devine RN - 01/25/2020 11:02 AM CDT Requested Prescriptions Pending Prescriptions Disp Refills simvastatin (ZOCOR) 40 MG Tablet [Pharmacy Med Name: Simvastatin 40 MG Oral Tablet] 90 Tab 0 Sig: Take 1 tablet by mouth once daily Cardiovascular: Antilipid - HMG-CoA Reductase Inhibitors Passed - 01/21/2020 11:14 AM Passed - Valid encounter within last 12 months Past Office Visits Recent Outpatient Visits 6 months ago Essential hypertension [facility] - Luann Torers MD 1 year ago Essential hypertension [facility] - Luann Torres MD 1 year ago Syncope, unspecified syncope type [facility] - Luann Torres MD 1 year [address]ore throat [facility] - Luann Torres MD 1 year ago Essential hypertension [facility] - Luann Torres MD Upcoming Appointments Future Appointments Tomorrow SAHCUSTECH2; SAHCUS1 [facility] Ultrasound, [facility] In 1 week SAHCMAM1 [facility] Mammography, [facility] In 1 week SAHCUSTECH2; SAHCUS1 [facility] In 3 months SAHCMR1 [facility] MRI, [facility] In 5 months Lab, [place] [facility] [address] In [address] [facility] - [address] PIER RUNNER - Recent and Past Visits Recent Visits Date Type Provider Dept 01/12/20 Office Visit Luann Cox MD [facility] Road 07/14/19 [facility] Office Visit Luann Cox MD [facility] Showing recent visits within past 460 days with a meds authorizing provider and meeting all other requirements Future Appointments No visits were found meeting these conditions. Showing future appointments within next 90 days with a meds authorizing provider and meeting all other requirements EQ ALLERGY RELIEF, CETIRIZINE, 10 MG Tablet [Pharmacy Med Name: EQ Allergy Relief (Cetirizine) 10 MG Oral Tablet] 90 Tab 0 Sig: TAKE 1 TABLET BY MOUTH ONCE DAILY Ear, Nose, and Throat: Antihistamines Nonsedating Passed - 01/21/2020 11:14 AM Passed - Valid encounter within last 12 months Past Office Visits Recent Outpatient Visits 6 months ago Essential hypertension [facility] Luann Torres MD 1 year ago Essential hypertension [facility] - Luann Torres MD 1 year ago Syncope, unspecified syncope type [facility] - Luann Torres MD 1 year [address] [facility] - Luann Torres MD 1 year [address] Essential hypertension [facility] - Luann Torres MD Upcoming Appointments Future Appointments Tomorrow SAHCUSTECH2; SAHCUS1 [facility], [facility] In 1 week SAHAM1 [facility]ammography, [facility] In 1 week SAHCUSTECH2; SAHCUS1 [facility] Ultrasound, [facility] In 3 months SAHCMR1 [facility] MRI, [facility] In 5 months Lab, [place] [facility] - [address] In [address] [facility] - [address] [facility]NER - Recent and Past Visits Recent Visits Date Type Provider Dept 01/12/20 Office Visit [facility] MD [facility] [address] 07/14/19 Office Visit Luann Cox MD [facility] [place] 01/11/19 Office Visit Luann Cox MD [facility] [place] Showing recent visits within past 460 days [...] st Contact Info) Description 08/11/2024 10:00 AM HEALTH RECORDS TECHNOLOGY TEACHER Office Visit [facility] [place] [address] [place] [address] Darwin Marti MD [address] [place] [address] 02/20/2025 9:30 AM CDT [facility] [address] [place] [address] Jessenia Ward, DIRECTOR WORKERS COMPENSATION, OFFICE ASSISTANT RECEPTIONIST [address] [place] [address] documented as of this encounter Visit Diagnoses Diagnosis Hyperlipidemia, unspecified hyperlipidemia type documented in this encounter Additional Health Concerns Infection Onset Date Last Indicated Resolved Time ESBL 08/16/2018 08/16/2018 09/28/2023 9:03 AM CDT COVID - 19 03/09/2023 03/09/2023 03/19/2023 12:1 6 AM CDT Respiratory Rule-Out 03/09/2023 03/09/2023 023 2:09 AM CDT COVID - 19 05/07/2023 05/07/2023 05/07/2023 9:50 AM HEALTH RECORDS TECHNOLOGY TEACHER COVID - 19 Confirmed 05/07/2023 05/07/2023 023 12:16 AM HEALTH RECORDS TECHNOLOGY TEACHER C. difficile Rule-Out 09/24/2023 09/24/20232023 3:41 PM CDT COVID - 19 09/24/2023 09/24/2023 09/24/2023 11:3 2 AM CDT C. difficile Rule-Out 09/27/2023 09/27/20232023 2:13 PM CDT COVID - 19 02/23/2024 02/23/2024 02/23/2024 11:2 8 AM CDT Respiratory Rule-Out 02/23/2024 02/23/2024 024 11:30 AM CDT Assessment Noted Time PHQ-9 Depression Total Score: 2 07/14/19 20 10:00 AM HEALTH RECORDS TECHNOLOGY TEACHER documented as of this encounter Care Teams Machine Shop Repair Technician Relationship Specialty Start Date End Date Luann Cox MD PCP - General Family Medicine 04/15/15 11/02/22 Josiane Pacheco MD [address] [place] [address] PCP - General Family Medicine 11/20/22 07/30/23 Darwin Marti MD [address] [place] [address] PCP - General Internal Medicine 07/31/23 Blair Paris MD 4 [facility] [address] [place] [address] Consulting Physician Orthopaedic Sports Medicine 07/31/23 Jose A Espinosa MD 2 [facility] [address] [address] Consulting Physician Pain Medicine-Pain Management 07/31/23 02/08/24 Hao Silvestre MD [address] [address] Consulting Physician Neurological Surgery 07/31/23 Carlos Dailey MD [address] [address] [address] Consulting Physician Colon and Rectal Surgery 10/26/23 Saida Mckeon APRN, HAND BANDER [address] [place] [address] Nurse Practitioner Gastroenterology 10/26/23 Jessenia Ward APRN, OFFICE ASSISTANT RECEPTIONIST [address] [place] [address] Nurse Practitioner Advanced Practice Nurse 11/17/23 Hao Silvestre MD [address] [place] [address] Consulting Physician Neurological Surgery 02/09/2401/27 Dominic Wang MD [place], [place] Consulting Physician Pain Medicine-Pain Management 02/09/24 Butch Muñiz MD [address] [place] [address] Consulting Physician Neurology 02/23/24 documented as of this encounter
--- OUTSIDE RECORDS SUMMARY | 2024-07-21 15:13 | XMS_ITS | Encounter Summary ---
Author Organization [facility] Address [address] [place] [address] Phone Care Team Providers Care Health Advisor Name Role Phone Luann Cox MD Primary Care Provider + [phone] Josiane Pacheco MD Primary Care Provider + [phone] Blair Paris MD Unavailable [phone] Jose A Espinosa MD Unavailable [phone] Darwin Marti MD Primary Care Provider [phone] Hao Silvestre MD Unavailable [phone] Carlos Dailey MD Unavailable Saida Mckeon APRN, TUTORIAL LABORATORY SUPERVISOR Unavailable Jessenia Ward APRN, SURGICAL NURSE PRACTITIONER Unavailable +- [phone] Hao Silvestre MD Unavailable [phone] Dominic Wang MD Unavailable [phone] Butch Muñiz MD Unavailable [phone] Reason for Visit * Reason Comments Medication Refill Encounter Details Date Type Department Care Team (Late st Contact Info) Description 09/24/2019 [facility] [address] [place] [address] Luann Cox MD [address] [place] [address] Medication Refill Social History Tobacco [...] encounter Miscellaneous Notes * Telephone Encounter - Virginia Menard RN - 09/26/2019 8:38 AM CDT Requested Prescriptions Pending Prescriptions Disp Refills levothyroxine (SYNTHROID) 50 MCG Tablet [Pharmacy Med Name: Levothyroxine Sodium 50 MCG Oral Tablet] 90 Tab 2 Sig: Take 1 tablet by mouth once daily Endocrinology: Hypothyroid Agents Passed - 09/24/2019 10:05 AM Passed - Valid encounter within last 12 months Past Office Visits Recent Outpatient Visits 2 months ago Essential hypertension [facility] - Luann Torres MD 8 months ago Essential hypertension [facility] - Luann Torres MD 1 year ago Syncope, unspecified syncope type [facility] - Luann Torres MD 1 year ago Sore throat [facility] - Luann Torres MD 1 year ago Essential hypertension [facility] - Luann Torres MD Upcoming Appointments Future Appointments In 3 months Lab, [facility] LAB, [facility] In 3 months Luann Cox MD [facility] - [address] Passed - TSH in normal range and within 360 days TSH Date Value Ref Range Status 07/07/2019 3.780 0.270 - 4.200 mIU/L Final meloxicam (MOBIC) 15 MG Tablet [Pharmacy Med Name: Meloxicam 15 MG Oral Tablet] 90 Tab 0 Sig: Take 1 tablet by mouth once daily Analgesics: COX2 Inhibitors Passed - 09/24/2019 10:05 AM Passed - Valid encounter within last 6 months Past Office Visits Recent Outpatient Visits 2 months ago Essential hypertension [facility] - Luann Torres MD 8 months ago Essential hypertension [facility] - Luann Torres MD 1 year ago Syncope, unspecified syncope type [facility] - Luann Torres MD 1 year ago [facility] 1 year ago Essential hypertension [facility] - Luann Torres MD Upcoming Appointments Future Appointments In 3 months [facility] In 3 months Luann Cox MD [facility] - [address] documented in this encounter Plan of Treatment Upcoming Encounters Date Type Department Care Team (Late st Contact Info) Description 08/11/2024 10:00 AM SPECIAL OFFICER Office Visit [facility] - [place] [address] [place] [phone] Darwin Marti MD [address] [place] [address] 02/20/2025 9:30 AM CDT Office Visit [facility] - Neurology [facility] [address] [place] [address] Jessenia Ward, ATTENDING AMBULATORY CARE, SURGICAL NURSE PRACTITIONER [address] [place] [address] documented as of this encounter Visit Diagnoses Diagnosis Hypothyroidism (acquired) Unspecified hypothyroidism documented in this encounter Additional Health Concerns Infection Onset Date Last Indicated Resolved Time ESBL 08/16/2018 08/16/2018 09/28/2023 9:03 AM CDT COVID - 19 03/09/2023 03/09/2023 03/19/2023 12:1 6 AM CDT Respiratory Rule-Out 03/09/2023 03/09/2023 023 2:09 AM CDT COVID - 19 05/07/2023 05/07/2023 05/07/2023 9:50 AM SPECIAL OFFICER COVID - 19 Confirmed 05/07/2023 05/07/2023 023 12:16 AM SPECIAL OFFICER C. difficile Rule-Out 09/24/2023 09/24/20232023 3:41 PM CDT COVID - 19 09/24/2023 09/24/2023 09/24/2023 11:3 2 AM CDT C. difficile Rule-Out 09/27/2023 09/27/20232023 2:13 PM CDT COVID - 19 02/23/2024 02/23/2024 02/23/2024 11:2 8 AM CDT Respiratory Rule-Out 02/23/2024 02/23/2024 024 11:30 AM CDT Assessment Noted Time PHQ-9 Depression Total Score: 2 07/14/19 20 10:00 AM SPECIAL OFFICER documented as of this encounter Care Teams Health Advisor Relationship Specialty Start Date End Date Luann Cox MD PCP - General Family Medicine 04/15/15 11/02/22 Josiane Pacheco MD [address] [place] [address] PCP - General Family Medicine 11/20/22 07/30/23 Darwin Marti MD [address] [place] [address] PCP - General Internal Medicine 07/31/23 Blair Paris MD 4 [facility] [address] [place] [address] Consulting Physician Orthopaedic Sports Medicine 07/31/23 Jose A Espinosa MD 2 [facility] [address] [address] Consulting Physician Pain Medicine-Pain Management 07/31/23 02/08/24 Hao Silvestre MD [address] [address] Consulting Physician Neurological Surgery 07/31/23 Carlos Dailey MD #[address] [address] Consulting Physician Colon and Rectal Surgery 10/26/23 Saida Mckeon APRN, TUTORIAL LABORATORY SUPERVISOR [address] [place] [address] Nurse Practitioner Gastroenterology 10/26/23 Jessenia Ward APRN, SURGICAL NURSE PRACTITIONER [address] [place] [address] Nurse Practitioner Advanced Practice Nurse 11/17/23 Hao Silvestre MD [address] [place] [address] Consulting Physician Neurological Surgery 02/09/2401/27 Dominic Wang MD [place], [place] Consulting Physician Pain Medicine-Pain Management 02/09/24 Butch Muñiz MD [address] [place] [address] Consulting Physician Neurology 02/23/24 documented as of this encounter
--- OUTSIDE RECORDS SUMMARY | 2024-07-21 15:13 | XMS_ITS | Encounter Summary ---
Author Organization [facility] Address [address] [place] [address] Phone Care Team Providers Care Beam Doffer Name Role Phone Luann Cox MD Primary Care Provider + [phone] Josiane Pacheco MD Primary Care Provider + [phone] Blair Paris MD Unavailable [phone] Jose A Espinosa MD Unavailable [phone] Darwin Marti MD Primary Care Provider [phone] Hao Silvestre MD Unavailable [phone] Carlos Dailey MD Unavailable Saida Mckeon APRN, HAND FOLDER Unavailable Jessenia Ward APRN, DEPOSITION OPERATOR Unavailable + [phone] Hao Silvestre MD Unavailable [phone] Dominic Wang MD Unavailable [phone] Butch Muñiz MD Unavailable +[phone] Reason for Visit * Reason Comments Medication Refill Encounter Details Date Type Department Care Team (Late Contact Info) Description 04/24/2020 Refill [facility] [place] [address] [place] [phone] Luann Cox MD [address] [place] [address] Medication Refill Social History Tobacco [...] Miscellaneous Notes * Telephone Encounter - Genevieve Shane RN - 04/25/2020 3:08 PM CDT BAIRON: 01-12-2020 for HTN, cholesterol, migraine Next OV: 07-12-2020 for fasting lab 07-19-2020 for OV Lab Results Component Value Date TSH 2.140 11/18/2019 Triamcinolone cream last filled on 01-11-2019; apply BID to left great toe x 2 weeks; pharmacy requesting this documented in this encounter Plan of Treatment Upcoming Encounters Date Type Department Care Team (Late Contact Info) Description 08/11/2024 10:00 AM DIRECTOR OF ANALYTICAL DEVELOPMENT Office Visit [facility] - [place] [address] [place] [phone] Darwin Marti MD [address] [place] [address] 02/20/2025 9:30 AM CDT Office Visit [facility] - Neurology - [place] [address] [place] [address] Jessenia Ward, RESIDENTIAL THERAPIST, DEPOSITION OPERATOR [address] [place] [address] documented as of this encounter Visit Diagnoses Diagnosis Hypothyroidism (acquired) Unspecified hypothyroidism Eczema, unspecified type documented in this encounter Additional Health Concerns Infection Onset Date Last Indicated Resolved Time ESBL 08/16/2018 08/16/2018 09/28/2023 9:03 AM CDT COVID - 19 03/09/2023 03/09/2023 03/19/2023 12:1 6 AM CDT Respiratory Rule-Out 03/09/2023 03/09/2023 023 2:09 AM CDT COVID - 19 05/07/2023 05/07/2023 05/07/2023 9:50 AM DIRECTOR OF ANALYTICAL DEVELOPMENT COVID - 19 Confirmed 05/07/2023 05/07/2023 023 12:16 AM DIRECTOR OF ANALYTICAL DEVELOPMENT C. difficile Rule-Out 09/24/2023 09/24/20232023 3:41 PM CDT COVID - 19 09/24/2023 09/24/2023 09/24/2023 11:3 2 AM CDT C. difficile Rule-Out 09/27/2023 09/27/20232023 2:13 PM CDT COVID - 19 02/23/2024 02/23/2024 02/23/2024 11:2 8 AM CDT Respiratory Rule-Out 02/23/2024 02/23/2024 024 11:30 AM CDT Assessment Noted Time PHQ-9 Depression Total Score: 2 01/16/20 20 10:00 AM DIRECTOR OF ANALYTICAL DEVELOPMENT documented as of this encounter Care Teams Beam Doffer Relationship Specialty Start Date End Date Luann Cox MD PCP - General Family Medicine 04/15/15 11/02/22 Josiane Pacheco MD [address] [place] [address] PCP - General Family Medicine 11/20/22 07/30/23 Darwin Marti MD [address] [place] [address] PCP - General Internal Medicine 07/31/23 Blair Paris MD 4 [facility] [address] [place] [address] Consulting Physician Orthopaedic Sports Medicine 07/31/23 Jose A Espinosa MD [address] [address] Consulting Physician Pain Medicine-Pain Management 07/31/23 02/08/24 Hao Silvestre MD [address] [address] Consulting Physician Neurological Surgery 07/31/23 Carlos Dailey MD [address] [address] Consulting Physician Colon and Rectal Surgery 10/26/23 Saida Mckeon APRN, HAND FOLDER [address] [place] [address] Nurse Practitioner Gastroenterology 10/26/23 Jessenia Ward APRN, DEPOSITION OPERATOR [address] [place] [address] Nurse Practitioner Advanced Practice Nurse 11/17/23 Hao Silvestre MD [address] [address] Consulting Physician Neurological Surgery 02/09/2401/27 Dominic Wang MD [place], [place] Consulting Physician Pain Medicine-Pain Management 02/09/24 Butch Muñiz MD [address] [place] [address] Consulting Physician Neurology 02/23/24 documented as of this encounter
--- OUTSIDE RECORDS SUMMARY | 2024-07-21 15:13 | XMS_ITS | Encounter Summary ---
Author Organization [facility] Address [address] [place] [address] Phone Care Team Providers Care Cna Hha Name Role Phone Luann Cox MD Primary Care Provider + [phone] Josiane Pacheco MD Primary Care Provider + [phone] Blair Paris MD Unavailable +[phone] Jose A Espinosa MD Unavailable +[phone] Darwin Marti MD Primary Care Provider +[phone] Hao Silvestre MD Unavailable [phone] Carlos Daiely MD Unavailable Saida Mckeon APRN, PRINTER'S ASSISTANT Unavailable Jessenia Ward APRN, YARDER PUNCHER Unavailable +- [phone] Hao Silvestre MD Unavailable +[phone] Dominic Wang MD Unavailable [phone] Butch Muñiz MD Unavailable +[phone] Reason for Visit * Reason Comments Medication Refill Encounter Details Date Type Department Care Team (Late st Contact Info) Description 10/06/2020 Refill [facility] [address] [place] [address] Luann Cox MD [address] [place] [address] Medication Refill Social History Tobacco [...] have Coronavirus / COVID-19? No / Unsure 09/06/2020 11:36 AM DATA ENTRY ASSISTANT documented as of this encounter Miscellaneous Notes * Telephone Encounter - Coni Erickson RN - 10/08/2020 9:31 AM CDT Per nursing clinical judgement, provider to review and approve the medication(s) order(s) if appropriate. Requested Prescriptions Pending Prescriptions Disp Refills meloxicam (MOBIC) 15 MG Tablet [Pharmacy Med Name: Meloxicam 15 MG Oral Tablet] 90 Tablet 0 Sig: Take 1 tablet by mouth once daily Analgesics: COX2 Inhibitors Passed - 10/06/2020 10:18 AM Passed - Valid encounter within last 6 months Past Office Visits Recent Outpatient Visits 1 month ago Spinal stenosis, lumbar region, with neurogenic claudication [facility] Luann Cox MD 2 months ago Uncomplicated asthma [facility] Luann Cox MD 9 months ago Essential hypertension [facility] Luann Cox MD 1 year ago Essential hypertension [facility] Luann Cox MD 1 year ago Essential hypertension [facility] Luann Cox MD Upcoming Appointments Future Appointments In 5 months Luann Cox MD [facility] - Recent and Past Visits Recent Visits Date Type Provider Dept 09/06/20 Office Visit Luann Cox MD [facility] 07/24/20 Office Visit Luann Cox MD [facility] 01/12/20 Office Visit Luann Cox MD [facility] 07/14/19 Office Visit Luann Cox MD [facility] Showing recent visits within past 460 days with a meds authorizing provider and meeting all other requirements Future Appointments No visits were found meeting these conditions. Showing future appointments within next 90 days with a meds authorizing provider and meeting all other requirements pantoprazole (PROTONIX) 40 MG Tablet Delayed Response [Pharmacy Med Name: Pantoprazole Sodium 40 MGOral Tablet Delayed Release] 90 Tablet 0 Sig: Take 1 tablet by mouth once daily Gastroenterology: Antiulcer - Proton Pump Inhibitors Passed - 10/06/2020 10:18 AM Passed - Valid encounter within last 12 months Past Office Visits Recent Outpatient Visits 1 month ago Spinal stenosis, lumbar region, with neurogenic claudication [facility] Luann Cox MD 2 months ago Uncomplicated asthma [facility] Luann Cox MD 9 months ago Essential hypertension [facility] Luann Cox MD 1 year ago Essential hypertension [facility] Luann Cox MD 1 year ago Essential hypertension [facility] - Luann Torres MD Upcoming Appointments Future Appointments In 5 months Luann Cox MD [facility] - Recent and Past Visits Recent Visits Date Type Provider Dept 09/06/20 Office Visit Luann Cox MD [facility] 07/24/20 Office Visit Luann Cox MD [facility] 01/12/20 Office Visit Luann Cox MD [facility] 07/14/19 Office Visit Luann Cox MD [facility] Showing recent visits within past 460 [...] st Contact Info) Description 08/11/2024 10:00 AM DATA ENTRY ASSISTANT Office Visit [facility] - Primary Care - [place] [address] [place] [address] Darwin Marti MD [address] [place] [address] 02/20/2025 9:30 AM CDT Office Visit [facility] - Neurology - [place] [address] [place] [address] Jessenia Ward APRN, YARDER PUNCHER [address] [place] [address] documented as of this encounter Visit Diagnoses Diagnosis Gastroesophageal reflux disease Esophageal reflux documented in this encounter Additional Health Concerns Infection Onset Date Last Indicated Resolved Time ESBL 08/16/2018 08/16/2018 09/28/2023 9:03 AM CDT COVID - 19 03/09/2023 03/09/2023 03/19/2023 12:1 6 AM CDT Respiratory Rule-Out 03/09/2023 03/09/2023 023 2:09 AM CDT COVID - 19 05/07/2023 05/07/2023 05/07/2023 9:50 AM DATA ENTRY ASSISTANT COVID - 19 Confirmed 05/07/2023 05/07/2023 023 12:16 AM DATA ENTRY ASSISTANT C. difficile Rule-Out 09/24/2023 09/24/20232023 3:41 PM CDT COVID - 19 09/24/2023 09/24/2023 09/24/2023 11:3 2 AM CDT C. difficile Rule-Out 09/27/2023 09/27/20232023 2:13 PM CDT COVID - 19 02/23/2024 02/23/2024 02/23/2024 11:2 8 AM CDT Respiratory Rule-Out 02/23/2024 02/23/2024 024 11:30 AM CDT Assessment Noted Time PHQ-9 Depression Total Score: 2 07/14/19 20 10:00 AM DATA ENTRY ASSISTANT documented as of this encounter Care Teams Cna Hha Relationship Specialty Start Date End Date Luann Cox MD PCP - General Family Medicine 04/15/15 11/02/22 Josiane Pacheco MD [address] [place] [address] PCP - General Family Medicine 11/20/22 07/30/23 Darwin Marti MD [address] [place] [address] PCP - General Internal Medicine 07/31/23 Blair Paris MD 4 [facility] [address] [place] [address] Consulting Physician Orthopaedic Sports Medicine 07/31/23 Jose A Espinosa MD 2 [facility] [address] [place] [address] Consulting Physician Pain Medicine-Pain Management 07/31/23 02/08/24 Hao Silvestre MD [address] [address] Consulting Physician Neurological Surgery 07/31/23 Carlos Dailey MD [address] [facility] [address] [place] [address] Consulting Physician Colon and Rectal Surgery 10/26/23 Saida Mckeon APRN, PRINTER'S ASSISTANT [address] [place] [address] Nurse Practitioner Gastroenterology 10/26/23 Jessenia Ward APRN, YARDER PUNCHER [address] [place] [address] Nurse Practitioner Advanced Practice Nurse 11/17/23 Hao Silvestre MD [address] [address] Consulting Physician Neurological Surgery 02/09/2401/27 Dominic Wang MD [place], [place] Consulting Physician Pain Medicine-Pain Management 02/09/24 Butch Muñiz MD [address] [place] [address] Consulting Physician Neurology 02/23/24 documented as of this encounter
--- OUTSIDE RECORDS SUMMARY | 2024-07-21 15:13 | XMS_ITS | Encounter Summary ---
Author Organization [facility] Address [address] [place] [address] Phone Care Team Providers Care Drapery Worker Name Role Phone Luann Cox MD Primary Care Provider + [phone] Josiane Pacheco MD Primary Care Provider + [phone] Blair Paris MD Unavailable [phone] Jose A Espinosa MD Unavailable [phone] Darwin Marti MD Primary Care Provider +[phone] Hao Silvestre MD Unavailable +[phone] Carlos Dailey MD Unavailable Saida Mckeon APRN, RELIGION INSTRUCTOR Unavailable Jessenia Ward APRN, CLIENT ASSOCIATE Unavailable + [phone] Hao Silvestre MD Unavailable +[phone] Dominic Wang MD Unavailable [phone] Butch Muñiz MD Unavailable +[phone] Reason for Visit * Reason Comments Medication Refill Encounter Details Date Type Department Care Team (Late st Contact Info) Description 12/26/2019 Refill [facility] [address] [place] [address] Luann Cox MD [address] [place] [address] Medication Refill Social History Tobacco [...] have Coronavirus / COVID-19? No / Unsure 12/20/2019 10:00 AM CDT documented as of this encounter Miscellaneous Notes * Telephone Encounter - Shyanne Welch RN - 12/26/2019 1:35 PM CDT Requested Prescriptions Pending Prescriptions Disp Refills pantoprazole (PROTONIX) 40 MG Tablet Delayed Response [Pharmacy Med Name: Pantoprazole Sodium 40 MGOral Tablet Delayed Release] 90 Tab 0 Sig: TAKE 1 TABLET BY MOUTH ONCE DAILY Gastroenterology: Antiulcer - Proton Pump Inhibitors Passed - 12/26/2019 9:40 AM Passed - Valid encounter within last 12 months Past Office Visits Recent Outpatient Visits 5 months ago Essential hypertension [facility] - FAMILY PRACTICE - Luann Torres MD 11 months ago Essential hypertension [facility] - Luann Torres MD 1 year ago Syncope, unspecified syncope type [facility] - Luann Torres MD 1 year ago Sore throat [facility] - Luann Torres MD 1 year ago Essential hypertension [facility] - Luann Torres MD Upcoming Appointments Future Appointments In 1 week Chanelle Edmonds RN [facility] In 1 week Chanelle Edmonds RN [facility] In 1 week Lab, [facility] PH[facility] LAB, [facility], [facility] In 2 weeks Chanelle Edmonds RN [facility] In 2 weeks Luann Cox MD [facility] In 3 weeks Chanelle Edmonds RN [facility] Home Health In [address], [facility] documented in this encounter Plan of Treatment Upcoming Encounters Date Type Department Care Team (Late st Contact Info) Description 08/11/2024 10:00 AM CRUSHED STONE GRADER Office Visit [facility] - Primary Care - [place] [address] [place] [id number] Darwin Marti MD [address] [place] [address] 02/20/2025 9:30 AM CDT Office Visit [facility] - Neurology - [place] [address] [place] [address] Jessenia Ward APRN, CLIENT ASSOCIATE [address] [place] [address] documented as of this encounter Visit Diagnoses Diagnosis Gastroesophageal reflux disease, esophagitis presence not specified documented in this encounter Additional Health Concerns Infection Onset Date Last Indicated Resolved Time ESBL 08/16/2018 08/16/2018 09/28/2023 9:03 AM CDT COVID - 19 03/09/2023 03/09/2023 03/19/2023 12:1 6 AM CDT Respiratory Rule-Out 03/09/2023 03/09/2023 023 2:09 AM CDT COVID - 19 05/07/2023 05/07/2023 05/07/2023 9:50 AM CRUSHED STONE GRADER COVID - 19 Confirmed 05/07/2023 05/07/2023 023 12:16 AM CRUSHED STONE GRADER C. difficile Rule-Out 09/24/2023 09/24/20232023 3:41 PM CDT COVID - 19 09/24/2023 09/24/2023 09/24/2023 11:3 2 AM CDT C. difficile Rule-Out 09/27/2023 09/27/20232023 2:13 PM CDT COVID - 19 02/23/2024 02/23/2024 02/23/2024 11:2 8 AM CDT Respiratory Rule-Out 02/23/2024 02/23/2024 024 11:30 AM CDT Assessment Noted Time PHQ-9 Depression Total Score: 2 07/14/19 20 10:00 AM CRUSHED STONE GRADER documented as of this encounter Care Teams Drapery Worker Relationship Specialty Start Date End Date Luann Cox MD PCP - General Family Medicine 04/15/15 11/02/22 Josiane Pacheco MD [address] [place] [address] PCP - General Family Medicine 11/20/22 07/30/23 Darwin Marti MD [address] [place] [address] PCP - General Internal Medicine 07/31/23 Blair Paris MD 4 [facility] [address] [place] [address] Consulting Physician Orthopaedic Sports Medicine 07/31/23 Jose A Espinosa MD 2 [facility] [address] [place] [address] Consulting Physician Pain Medicine-Pain Management 07/31/23 02/08/24 Hao Silvestre MD [address] [place] [address] Consulting Physician Neurological Surgery 07/31/23 Carlos Dailey MD #[address] [address] Consulting Physician Colon and Rectal Surgery 10/26/23 Saida Mckeon APRN, RELIGION INSTRUCTOR [address] [place] [address] Nurse Practitioner Gastroenterology 10/26/23 Jessenia Ward APRN, CLIENT ASSOCIATE [address] [place] [address] Nurse Practitioner Advanced Practice Nurse 11/17/23 Hao Silvestre MD [address] [address] Consulting Physician Neurological Surgery 02/09/2401/27 Dominic Wang MD [place], [place] Consulting Physician Pain Medicine-Pain Management 02/09/24 Butch Muñiz MD [address] [place] [address] Consulting Physician Neurology 02/23/24 documented as of this encounter
== END 2024-07-20 15:20 | disposition home or self-care (01) ==
LOC: ANHSURGERY 09:46 → ANH3MEDSUR 10:47
PROVIDERS: PCP Internal Medicine; Visit Provider Neurological Surgery
PROC: (CPT 27280; principal; 2024-07-19 07:30)
DX: M46.1 Sacroiliitis, not elsewhere classified (principal); E03.9 Hypothyroidism, unspecified; E78.5 Hyperlipidemia, unspecified; I10 Essential (primary) hypertension; J45.909 Unspecified asthma, uncomplicated; Z79.51 Long term (current) use of inhaled steroids; Z79.02 Long term (current) use of antithrombotics/antiplatelets; Z98.890 Other specified postprocedural states; Z98.1 Arthrodesis status; Z87.891 Personal history of nicotine dependence; Z86.79 Personal history of other diseases of the circulatory system; Z82.49 Family history of ischemic heart disease and other diseases of the circulatory system
CPT/HCPCS: 27279; 94640; 97116; 97161; 97165; 97530; 97535; 99199; A9270; J0330; J0690; J1100; J1171; J2003; J2004; J2371; J2405; J2704; J3010; J3370; J3480; J7120

== ENCOUNTER 2024-08-22 09:30 | Outpatient (CLI) | payer MEDICARE, OTHER, SELFPAY ==
--- NOTE | ~2024-08-22 | XR_ITS ---
EXAM: XR sacroiliac joints min 3V DATE: 08/22/2024 12:23 HISTORY: Z98.1 - Arthrodesis status . COMPARISON: CT pelvis 12/11/2023; x-ray fluoroscopy 07/19/2024. FINDINGS: Decreased mineralization. Status post hardware fixation of the left SI joint. No hardware fracture or perihilar hardware lucency. Mild degenerative changes in the bilateral SI joints. Moderat e degenerative change in the symphysis. Mild bilateral hip degenerative change. Scattered pelvic enth esopathy. Severe multilevel lumbar degenerative disc disease. IMPRESSION: Osteopenia. Status post left SI joint fusion without radiographic evidence of hardware re lated complication. Mild bilateral SI joint degenerative change. Moderate osteitis pubis. Severe lumb ar degenerative disc disease. Reviewed, dictated and finalized at location K. TERY WORKERS SUPERVISOR IMPRESSION: Osteopenia. Status post left SI joint fusion without radiographic e vidence of hardware related complication. Mild bilateral SI joint degenerative change. Moderate osteitis pubis. Severe lumbar degenerative disc disease.
--- OUTSIDE RECORDS SUMMARY | 2024-08-22 10:18 | XMS_ITS ---
Care Plan - [facility] Created on: August 22, 2024 DIPESH BARNES : 1950 Sex: Female Author Organization [facility] Address [address] [place] [address] Phone Care Team Providers Care Health/Safety Job Titles Name Role Phone TERESA DUKES Primary Care Provider [phone]
--- OUTSIDE RECORDS SUMMARY | 2024-08-22 10:18 | XMS_ITS | Encounter Summary ---
Author Organization [facility] Address [address] [place] [address] Phone Care Team Providers Care Wig Maker Name Role Phone Luann Cox MD Primary Care Provider + [phone] Josiane Pacheco MD Primary Care Provider + [phone] Blair Paris MD Unavailable [phone] Jose A Espinosa MD Unavailable [phone] Darwin Marti MD Primary Care Provider +[phone] Hao Silvestre MD Unavailable [phone] Carlos Dailey MD Unavailable Saida Mckeon APRN, BIOMETRICS INSTRUCTOR Unavailable Jessenia Ward APRN, SURVEY COMPILER Unavailable +- [phone] Hao Silvestre MD Unavailable [phone] Dominic Wang MD Unavailable [phone] Butch Muñiz MD Unavailable +[phone] Reason for Visit * Reason Comments Medication Refill Encounter Details Date Type Department Care Team ([facility] Contact Info) Description 02/23/2021 [facility] [place] [address] [place] [address] Luann Cox MD [address] [place] [address] Medication Refill Social History Tobacco [...] Upcoming Encounters Date Type Department Care Team ([facility] Contact Info) Description 08/25/2024 2:15 PM BATTER MIXER HELPER Office Visit [facility] [place] [address] [place] [address] Darwin Marti MD [address] [place] [address] 02/20/2025 9:30 AM CDT Office Visit [facility] - Neurology - [place] [address] [place] [address] Jessenia Ward APRN, SURVEY COMPILER [address] [place] [address] documented as of this encounter Visit Diagnoses Diagnosis Essential hypertension Unspecified essential hypertension documented in this encounter Additional Health Concerns Infection Onset Date Last Indicated Resolved Time ESBL 08/16/2018 08/16/2018 09/28/2023 9:03 AM CDT COVID - 19 03/09/2023 03/09/2023 03/19/2023 12:1 6 AM CDT Respiratory Rule-Out 03/09/2023 03/09/2023 023 2:09 AM CDT COVID - 19 05/07/2023 05/07/2023 05/07/2023 9:50 AM BATTER MIXER HELPER COVID - 19 Confirmed 05/07/2023 05/07/2023 023 12:16 AM BATTER MIXER HELPER C. difficile Rule-Out 09/24/2023 09/24/20232023 3:41 PM CDT COVID - 19 09/24/2023 09/24/2023 09/24/2023 11:3 2 AM CDT C. difficile Rule-Out 09/27/2023 09/27/20232023 2:13 PM CDT COVID - 19 02/23/2024 02/23/2024 02/23/2024 11:2 8 AM CDT Respiratory Rule-Out 02/23/2024 02/23/2024 024 11:30 AM CDT Assessment Noted Time PHQ-9 Depression Total Score: 2 07/14/19 20 10:00 AM BATTER MIXER HELPER documented as of this encounter Care Teams Wig Maker Relationship Specialty Start Date End Date Luann Cox MD PCP - General Family Medicine 04/15/15 11/02/22 Josiane Pacheco MD [address] [place] [address] PCP - General Family Medicine 11/20/22 07/30/23 Darwin Marti MD [address] [place] [address] PCP - General Internal Medicine 07/31/23 Blair Paris MD 4 [facility] [address] [place] [address] Consulting Physician Orthopaedic Sports Medicine 07/31/23 Jose A Espinosa MD [address] [address] Consulting Physician Pain Medicine-Pain Management 07/31/23 02/08/24 Hao Silvestre MD [address] [address] Consulting Physician Neurological Surgery 07/31/23 Carlos Dailey MD #[address] [address] Consulting Physician Colon and Rectal Surgery 10/26/23 Saida Mckeon APRN, BIOMETRICS INSTRUCTOR [address] [place] [address] Nurse Practitioner Gastroenterology 10/26/23 Jessenia Ward APRN, SURVEY COMPILER [address] [place] [address] Nurse Practitioner Advanced Practice Nurse 11/17/23 Hao Silvestre MD [address] [place] [address] Consulting Physician Neurological Surgery 02/09/2401/27 Dominic Wang MD [place], [place] Consulting Physician Pain Medicine-Pain Management 02/09/24 Butch Muñiz MD [address] [place] [address] Consulting Physician Neurology 02/23/24 documented as of this encounter
--- OUTSIDE RECORDS SUMMARY | 2024-08-22 10:18 | XMS_ITS | Encounter Summary ---
Author Organization [facility] Address [address] [place] [address] Phone Care Team Providers Care Radio Repairer Name Role Phone Luann Cox MD Primary Care Provider + [phone] Josiane Pacheco MD Primary Care Provider + [phone] Blair Paris MD Unavailable [phone] Jose A Espinosa MD Unavailable [phone] Darwin Marti MD Primary Care Provider +[phone] Hao Silvestre MD Unavailable +[phone] Carlos Dailey MD Unavailable Saida Mckeon APRN, EXPENSE ANALYST Unavailable Jessenia Ward APRN, MAINTENANCE TECHNICIAN Unavailable + [phone] Hao Silvestre MD Unavailable [phone] Dominic Wang MD Unavailable Butch Muñiz MD Unavailable +[phone] Reason for Visit * Reason Comments Medication Refill Encounter Details Date Type Department Care Team (Late st Contact Info) Description 01/02/2021 Refill [facility] - Primary Care - [place] [address] [place] [phone] Luann Cox MD [address] [place] [address] Medication Refill Social History Tobacco [...] Dept 09/06/20 Office Visit Luann Cox MD [facility] 07/24/20 Office Visit Luann Cox MD [facility] 01/12/20 Office Visit Luann Cox MD [facility] Showing recent visits within past 365 days and meeting all other requirements Future Appointments Date Type Provider Dept 03/07/21 Appointment Luann Cox MD [facility] Showing future appointments within next 90 days [...] Spinal stenosis, lumbar region, with neurogenic claudication [facility] Launn Cox MD 5 months ago Uncomplicated asthma [facility] Luann Cox MD 11 months ago Essential hypertension [facility] Luann Cox MD 1 year ago Essential hypertension [facility] Luann Cox MD 1 year ago Essential hypertension [facility] Luann Cox MD Upcoming Appointments Future Appointments In 2 months Luann Cox MD [facility] - Recent and Past Visits Recent Visits Date Type Provider Dept 09/06/20 Office Visit Luann Cox MD [facility] 07/24/20 Office Visit Luann Cox MD [facility] 01/12/20 Office Visit Luann Cox MD [facility] Showing recent visits within past 460 days with a meds authorizing provider and meeting all other requirements Future Appointments Date Type Provider Dept 03/07/21 Appointment Luann Cox MD [facility] Showing future appointments within next 90 days [...] Dept 09/06/20 Office Visit [facility] MD [facility] 07/24/20 Office Visit Luann Cox MD [facility] 01/12/20 Office Visit Luann Cox MD [facility] Showing recent visits within past 365 days and meeting all other requirements Future Appointments Date Type Provider Dept 03/07/21 Appointment Luann Cox MD [facility] Showing future appointments within next [...] Dept 09/06/20 Office Visit Luann Cox MD [facility] 07/24/20 Office [facility] 01/12/20 Office Visit Luann Cox MD [facility] Showing recent visits within past 365 days and meeting all other requirements Future Appointments Date Type Provider Dept 03/07/21 Appointment Luann Cxo MD [facility] Showing future appointments within next 90 days and meeting all other requirements [facility]: Antiulcer - Proton Pump Inhibitors Passed - 01/02/2021 12:58 PM Passed - Valid encounter within last 12 months Past Office Visits Recent Outpatient Visits 3 months ago Spinal stenosis, lumbar region, with neurogenic claudication [facility] Luann Cox MD 5 months ago Uncomplicated asthma [facility] Luann Cox MD 11 months ago Essential hypertension [facility] Luann Cox MD 1 year ago Essential hypertension [facility] Luann Cox MD 1 year ago Essential hypertension [facility] Luann Cox MD Upcoming Appointments Future Appointments In 2 months Luann Cox MD [facility] - Recent and Past Visits Recent Visits Date Type Provider Dept 09/06/20 Office Visit Luann [facility] MD [facility] Office Visit Luann Cox MD [facility] 01/12/20 Office Visit Luann Cox MD [facility] Showing recent visits within past 460 days with a meds authorizing provider and meeting all other requirements Future Appointments Date Type Provider Dept 03/07/21 Appointment Luann Cox MD [facility] Showing future appointments within next 90 days with a meds authorizing provider and meeting all other requirements documented in this encounter Plan of Treatment Upcoming Encounters Date Type Department Care Team (Late st Contact Info) Description 08/25/2024 2:15 PM PHOTO CHECKER Office Visit [facility] [place] [address] [place] [address] Darwin Marti MD [address] [place] [address] 02/20/2025 9:30 AM CDT Office Visit [facility] - Neurology - [place] [address] [place] [address] Jessenia Ward, AIR DISPATCHER, MAINTENANCE TECHNICIAN [address] [place] [address] documented as of this encounter Visit Diagnoses [...] - 19 05/07/2023 05/07/2023 05/07/2023 9:50 AM PHOTO CHECKER COVID - 19 Confirmed 05/07/2023 05/07/2023 023 12:16 AM PHOTO CHECKER C. difficile Rule-Out 09/24/2023 09/24/20232023 3:41 PM CDT COVID - 19 09/24/2023 09/24/2023 09/24/2023 11:3 2 AM CDT C. difficile Rule-Out 09/27/2023 09/27/20232023 2:13 PM CDT COVID - 19 02/23/2024 02/23/2024 02/23/2024 11:2 8 AM CDT Respiratory Rule-Out 02/23/2024 02/23/2024 024 11:30 AM CDT Assessment Noted Time PHQ-9 Depression Total Score: 2 07/14/19 20 10:00 AM PHOTO CHECKER documented as of this encounter Care Teams Radio Repairer Relationship Specialty Start Date End Date Luann Cox MD PCP - General Family Medicine 04/15/15 11/02/22 Josiane Pacheco MD [address] [place] [address] PCP - General Family Medicine 11/20/22 07/30/23 Darwin Marti MD [address] [place] [address] PCP - General Internal Medicine 07/31/23 Blair Paris MD [address] [address] Consulting Physician Orthopaedic Sports Medicine 07/31/23 Jose A Espinosa MD [address] [address] Consulting Physician Pain Medicine-Pain Management 07/31/23 02/08/24 Hao Silvestre MD [address] [id number] Consulting Physician Neurological Surgery 07/31/23 Carlos Dailey MD [address] [address] Consulting Physician Colon and Rectal Surgery 10/26/23 Saida Mckeon APRN, EXPENSE ANALYST [address] [place] [address] Nurse Practitioner Gastroenterology 10/26/23 Jessenia Ward APRN, MAINTENANCE TECHNICIAN [address] [place] [address] Nurse Practitioner Advanced Practice Nurse 11/17/23 Hao Silvestre MD [address] [address] Consulting Physician Neurological Surgery 02/09/2401/27 Dominic Wang MD [place], [place] Consulting Physician Pain Medicine-Pain Management 02/09/24 Butch Muñiz MD [address] [place] [address] Consulting Physician Neurology 02/23/24 documented as of this encounter
--- OUTSIDE RECORDS SUMMARY | 2024-08-22 10:18 | XMS_ITS | Encounter Summary ---
Author Organization [facility] Address [address] [place] [address] Phone Care Team Providers Care Aluminum Can Collector Name Role Phone Luann Cox MD Primary Care Provider + [phone] Josiane Pacheco MD Primary Care Provider + [phone] Blair Paris MD Unavailable +[phone] Jose A Espinosa MD Unavailable +[phone] Darwin Marti MD Primary Care Provider [phone] Hao Silvestre MD Unavailable [phone] Carlos Dailey MD Unavailable Saida Mckeon APRN, TECHNOLOGY DEVELOPMENT INTERN Unavailable [place], Jessenia M HARVEST CREW SUPERVISOR, BROOD STATION MANAGER Unavailable [phone] Hao Silvestre MD Unavailable Dominic Wang MD Unavailable [phone] Butch Muñiz MD Unavailable +[phone] Reason for Visit * Reason Comments Medication Refill Encounter Details Date Type Department Care Team (Late Contact Info) Description 11/11/2020 [facility] [place] [address] [place] [address] Luann Cox MD [address] [place] [address] Medication Refill Social History Tobacco [...] Department Care Team (Late Contact Info) Description 08/25/2024 2:15 PM BOXING INSPECTOR Office Visit [facility] Primary Care - [place] [address] [place] [address] Darwin Marti MD [address] [place] [address] 02/20/2025 9:30 AM CDT Office Visit [facility] - Neurology - [place] [address] [place] [address] Jessenia Ward, HARVEST CREW SUPERVISOR, BROOD STATION MANAGER [address] [place] [address] documented as of this encounter Visit Diagnoses Diagnosis Essential hypertension Unspecified essential hypertension documented in this encounter Additional Health Concerns Infection Onset Date Last Indicated Resolved Time ESBL 08/16/2018 08/16/2018 09/28/2023 9:03 AM CDT COVID - 19 03/09/2023 03/09/2023 03/19/2023 12:1 6 AM CDT Respiratory Rule-Out 03/09/2023 03/09/2023 023 2:09 AM CDT COVID - 19 05/07/2023 05/07/2023 05/07/2023 9:50 AM BOXING INSPECTOR COVID - 19 Confirmed 05/07/2023 05/07/2023 023 12:16 AM BOXING INSPECTOR C. difficile Rule-Out 09/24/2023 09/24/20232023 3:41 PM CDT COVID - 19 09/24/2023 09/24/2023 09/24/2023 11:3 2 AM CDT C. difficile Rule-Out 09/27/2023 09/27/20232023 2:13 PM CDT COVID - 19 02/23/2024 02/23/2024 02/23/2024 11:2 8 AM CDT Respiratory Rule-Out 02/23/2024 02/23/2024 024 11:30 AM CDT Assessment Noted Time PHQ-9 Depression Total Score: 2 07/14/19 20 10:00 AM BOXING INSPECTOR documented as of this encounter Care Teams Aluminum Can Collector Relationship Specialty Start Date End Date Luann Cox MD PCP - General Family Medicine 04/15/15 11/02/22 Josiane Pacheco MD [address] [place] [address] PCP - General Family Medicine 11/20/22 07/30/23 Darwin Marti MD [address] [place] [address] PCP - General Internal Medicine 07/31/23 Blair Paris MD 4 [facility] [address] [place] [address] Consulting Physician Orthopaedic Sports Medicine 07/31/23 Jose A Espinosa MD 2 [facility] [address] [place] [address] Consulting Physician Pain Medicine-Pain Management 07/31/23 02/08/24 Hao Silvestre MD [address] [place] [address] Consulting Physician Neurological Surgery 07/31/23 Carlos Dailey MD [address] [address] Consulting Physician Colon and Rectal Surgery 10/26/23 Saida Mckeon APRN, TECHNOLOGY DEVELOPMENT INTERN [address] [place] [address] Nurse Practitioner Gastroenterology 10/26/23 Jessenia Ward APRN, BROOD STATION MANAGER [address] [place] [address] Nurse Practitioner Advanced Practice Nurse 11/17/23 Hao Silvestre MD [address] [address] Consulting Physician Neurological Surgery 02/09/2401/27 Dominic Wang MD [place], [place] Consulting Physician Pain Medicine-Pain Management 02/09/24 Butch Muñiz MD [address] [place] [address] Consulting Physician Neurology 02/23/24 documented as of this encounter
--- OUTSIDE RECORDS SUMMARY | 2024-08-22 10:18 | XMS_ITS | Encounter Summary ---
Author Organization [facility] Address [address] [place] [address] Phone Care Team Providers Care Harness Preparer Name Role Phone Luann Cox MD Primary Care Provider + [phone] Josiane Pacheco MD Primary Care Provider + [phone] Blair Paris MD Unavailable [phone] Jose A Espinosa MD Unavailable [phone] Darwin Marti MD Primary Care Provider +[phone] Hao Silvestre MD Unavailable [phone] Carlos Dailey MD Unavailable Saida Mckeon APRN, BALL HOLDER Unavailable Jessenia Ward APRN, COMPOSING ROOM MACHINIST Unavailable + [phone] Hao Silvestre MD Unavailable +[phone] Dominic Wang MD Unavailable [phone] Butch Muñiz MD Unavailable [phone] Reason for Visit * Reason Comments Medication Refill Encounter Details Date Type Department Care Team (Late st Contact Info) Description 01/27/2021 Refill [facility] - Primary Care [facility] [address] [place] [phone] Luann Cox MD [address] [place] [address] Medication Refill Social History Tobacco [...] Spinal stenosis, lumbar region, with neurogenic claudication [facility] Medical [facility] - Family Medicine - [facility] Luann Cox MD 6 months ago Uncomplicated asthma [facility] Luann Cox MD 1 year ago Essential hypertension [facility] Luann Cox MD 1 year ago Essential hypertension [facility] Luann Cox MD 2 years ago Essential hypertension [facility] Luann Cox MD Upcoming Appointments Future Appointments In 1 month Luann Cox MD [facility] - Recent and Past Visits Recent Visits Date Type Provider Dept 09/06/20 Office Visit Luann Cox MD [facility] 07/24/20 Office Visit Luann Cox MD [facility] 01/12/20 Office Visit Luann Cox MD [facility] Showing recent visits within past 460 days with a meds authorizing provider and meeting all other requirements Future Appointments Date Type Provider Dept 03/07/21 Appointment Luann Cox MD [facility] Showing future appointments within next [...] Dept 09/06/20 Office Visit Luann Cox MD [facility] 07/24/20 Office Visit Luann Cox MD [facility] Showing recent visits within past 365 days and meeting all other requirements Future Appointments Date Type Provider Dept 03/07/21 Appointment Luann Cox MD [facility] Showing future appointments within next 90 days and meeting all other requirements documented in this encounter Plan of Treatment Upcoming Encounters Date Type Department Care Team (Late st Contact Info) Description 08/25/2024 2:15 PM MARKETING TEAM LEAD Office Visit [facility] - Primary Care - [place] [address] [place] [address] Darwin Marti MD [address] [place] [address] 02/20/2025 9:30 AM CDT Office Visit [facility] - Neurology - [place] [address] [place] [phone] Jessenia Ward APRN, COMPOSING ROOM MACHINIST [address] [place] [address] documented as of this encounter Visit Diagnoses Diagnosis Neuropathy Mononeuritis of unspecified site documented in this encounter Additional Health Concerns Infection Onset Date Last Indicated Resolved Time ESBL 08/16/2018 08/16/2018 09/28/2023 9:03 AM CDT COVID - 19 03/09/2023 03/09/2023 03/19/2023 12:1 6 AM CDT Respiratory Rule-Out 03/09/2023 03/09/2023 023 2:09 AM CDT COVID - 19 05/07/2023 05/07/2023 05/07/2023 9:50 AM MARKETING TEAM LEAD COVID - 19 Confirmed 05/07/2023 05/07/2023 023 12:16 AM MARKETING TEAM LEAD C. difficile Rule-Out 09/24/2023 09/24/20232023 3:41 PM CDT COVID - 19 09/24/2023 09/24/2023 09/24/2023 11:3 2 AM CDT C. difficile Rule-Out 09/27/2023 09/27/20232023 2:13 PM CDT COVID - 19 02/23/2024 02/23/2024 02/23/2024 11:2 8 AM CDT Respiratory Rule-Out 02/23/2024 02/23/2024 024 11:30 AM CDT Assessment Noted Time PHQ-9 Depression Total Score: 2 07/14/19 20 10:00 AM MARKETING TEAM LEAD documented as of this encounter Care Teams Harness Preparer Relationship Specialty Start Date End Date Luann Cox MD PCP - General Family Medicine 04/15/15 11/02/22 Josiane Pacheco MD [address] [place] [address] PCP - General Family Medicine 11/20/22 07/30/23 Darwin Marti MD [address] [place] [address] PCP - General Internal Medicine 07/31/23 Blair Paris MD 4 [facility] [address] [place] [address] Consulting Physician Orthopaedic Sports Medicine 07/31/23 Jose A Espinosa MD 2 [facility] [address] [place] [address] Consulting Physician Pain Medicine-Pain Management 07/31/23 02/08/24 Hao Silvestre MD [address] [phone] Consulting Physician Neurological Surgery 07/31/23 Carlos Dailey MD [address]2 [facility] [address] [place] [address] Consulting Physician Colon and Rectal Surgery 10/26/23 Saida Mckeon APRN, BALL HOLDER [address] [place] [address] Nurse Practitioner Gastroenterology 10/26/23 Jessenia Ward APRN, COMPOSING ROOM MACHINIST [address] [place] [address] Nurse Practitioner Advanced Practice Nurse 11/17/23 Hao Silvestre MD [address] [address] Consulting Physician Neurological Surgery 02/09/2401/27 Dominic Wang MD [place], [place] Consulting Physician Pain Medicine-Pain Management 02/09/24 Butch Muñiz MD [address] [place] [address] Consulting Physician Neurology 02/23/24 documented as of this encounter
--- OUTSIDE RECORDS SUMMARY | 2024-08-22 10:18 | XMS_ITS ---
Author Organization [facility] Address [address] [place] [address] Phone Care Team Providers Care Data Center Architect Name Role Phone DIMITRY DUKESOTHY Mag Primary Care Provider [phone] Plan of Treatment No Plan of Treatment Recorded Assessments Includes: Assessments for all patient encounters No Assessments Recorded Medical Equipment - Implanted Devices Includes: Current and historical Devices No Medical Equipment Recorded Medications Administered Includes: Administered Medications in patient's chart No Administered Medications Recorded Results Includes: Results from 08/22/2023 through 08/22/2024 No Results Recorded For Specified Dates History [...] Dates 1 - MEDICARE PART A CLAIMS/NGS [id number] DIPESH BARNES Self Clinical Notes Includes: Signed Clinical Notes starting from 07/18/2022 No Clinical Notes Recorded
--- OUTSIDE RECORDS SUMMARY | 2024-08-22 10:19 | XMS_ITS | Encounter Summary ---
Author Organization [facility] Address [address] [place] [address] Phone Care Team Providers Care Cut Off Saw Operator Metal Name Role Phone Luann Cox MD Primary Care Provider + [phone] Josiane Pacheco MD Primary Care Provider + [phone] Blair Paris MD Unavailable [phone] Jose A Espinosa MD Unavailable [phone] Darwin Marti MD Primary Care Provider +[phone] Hao Silvestre MD Unavailable [phone] Carlos Dailey MD Unavailable Saida Mckeon APRN, SUPERVISOR MOLDING Unavailable Jessenia Ward APRN, MONITOR AND STORAGE BIN TENDER Unavailable +[phone] Hao Silvestre MD Unavailable [phone] Dominic Wang MD Unavailable [phone] Bucth Muñiz MD Unavailable [phone] Reason for Visit * Reason Comments Medication Refill Encounter Details Date Type Department Care Team ([facility] Contact Info) Description 05/12/2021 Refill [facility] Primary Care - [place] [address] [place] [address] Luann Cox MD [address] [place] [address] Medication Refill Social History Tobacco [...] no refill protocol information for this order URING MACHINE FIXER documented in this encounter Plan of Treatment Upcoming Encounters Date Type Department Care Team ([facility] Contact Info) Description 08/25/2024 2:15 PM TEXTURING MACHINE FIXER Office Visit [facility] - Primary Care - [place] [address] [place] [address] Darwin Marti MD [address] [place] [address] 02/20/2025 9:30 AM CDT Office Visit [facility] - Neurology - [place] [address] [place] [address] Jessenia Ward, ACCOUNT EXECUTIVE HEALTHCARE, MONITOR AND STORAGE BIN TENDER [address] [place] [address] documented as of this encounter Visit Diagnoses Not on filedocumented in this encounter Additional Health Concerns Infection Onset Date Last Indicated Resolved Time ESBL 08/16/2018 08/16/2018 09/28/2023 9:03 AM CDT COVID - 19 03/09/2023 03/09/2023 03/19/2023 12:1 6 AM CDT Respiratory Rule-Out 03/09/2023 03/09/2023 023 2:09 AM CDT COVID - 19 05/07/2023 05/07/2023 05/07/2023 9:50 AM TEXTURING MACHINE FIXER COVID - 19 Confirmed 05/07/2023 05/07/2023 023 12:16 AM TEXTURING MACHINE FIXER C. difficile Rule-Out 09/24/2023 09/24/20232023 3:41 PM CDT COVID - 19 09/24/2023 09/24/2023 09/24/2023 11:3 2 AM CDT C. difficile Rule-Out 09/27/2023 09/27/20232023 2:13 PM CDT COVID - 19 02/23/2024 02/23/2024 02/23/2024 11:2 8 AM CDT Respiratory Rule-Out 02/23/2024 02/23/2024 024 11:30 AM CDT Assessment Noted Time PHQ-9 Depression Total Score: 2 07/14/19 20 10:00 AM TEXTURING MACHINE FIXER documented as of this encounter Care Teams Cut Off Saw Operator Metal Relationship Specialty Start Date End Date Luann Cox MD PCP - General Family Medicine 04/15/15 11/02/22 Josiane Pacheco MD [address] [place] [address] PCP - General Family Medicine 11/20/22 07/30/23 Darwin Marti MD [address] [place] [address] PCP - General Internal Medicine 07/31/23 Blair Paris MD 4 [facility] [address] [place] [address] Consulting Physician Orthopaedic Sports Medicine 07/31/23 Jose A Espinosa MD [address] [address] Consulting Physician Pain Medicine-Pain Management 07/31/23 02/08/24 Hao Silvestre MD [address] [address] Consulting Physician Neurological Surgery 07/31/23 Carlos Dailey MD [address] [address] Consulting Physician Colon and Rectal Surgery 10/26/23 Saida Mckeon APRN, SUPERVISOR MOLDING [address] [place] [address] Nurse Practitioner Gastroenterology 10/26/23 Jessenia Ward APRN, MONITOR AND STORAGE BIN TENDER [address] [place] [address] Nurse Practitioner Advanced Practice Nurse 11/17/23 Hao Silvestre MD [address] [address] Consulting Physician Neurological Surgery 02/09/2401/27 Dominic Wang MD [place], [place] Consulting Physician Pain Medicine-Pain Management 02/09/24 Butch Muñiz MD [address] [place] [address] Consulting Physician Neurology 02/23/24 documented as of this encounter
--- OUTSIDE RECORDS SUMMARY | 2024-08-22 10:19 | XMS_ITS | Encounter Summary ---
Author Organization [facility] Address [address] [place] [address] Phone Care Team Providers Care Family Dinner Service Specialist Name Role Phone Blair Paris MD Unavailable [phone] Jose A Espinosa MD Unavailable [phone] Darwin Marti MD Primary Care Provider [phone] Hao Silvestre MD Unavailable [phone] Carlos Dailey MD Unavailable Saida Mckeon APRN, FIBERGLASS MACHINE OPERATOR Unavailable Jessenia Ward APRN, ENGLISH FACULTY MEMBER Unavailable + [phone] Hao Silvestre MD Unavailable [phone] Dominic Wang MD Unavailable [phone] Butch Muñiz MD Unavailable [phone] Reason for Visit * Reason Comments Medication Refill Encounter Details Date Type Department Care Team (Late Contact Info) Description 08/26/[facility] [place] [address] [place] [address] Ranjeet Boston PAC [address] [place] [address] Medication Refill Social History Tobacco [...] CST Patient need to get from neurosurgeon GE SPECIALIST documented in this encounter Plan of Treatment Upcoming Encounters Date Type Department Care Team (Late Contact Info) Description 08/25/2024 2:15 PM TRIAGE SPECIALIST Office Visit [facility] Primary Care - [place] [address] [place] [address] Darwin Marti MD [address] [place] [address] 02/20/2025 9:30 AM CDT Office Visit [facility] Neurology [facility] [address] [place] [address] Jessenia Ward, VICE PRESIDENT INVESTOR RELATIONS, ENGLISH FACULTY MEMBER [address] [place] [address] documented as of this encounter Visit Diagnoses [...] Total Score: 0 07/31/19 24 12:53 PM TRIAGE SPECIALIST documented as of this encounter Care Teams Family Dinner Service Specialist Relationship Specialty Start Date End Date Darwin Marti MD [address] [place] [address] PCP - General Internal Medicine 07/31/23 Blair Paris MD 4 [facility] , [address] [place] [address] Consulting Physician Orthopaedic Sports Medicine 07/31/23 Jose A Espinosa MD 2 [facility] [address] [place] [address] Consulting Physician Pain Medicine-Pain Management 07/31/23 02/08/24 Hao Silvestre MD [address] [address] Consulting Physician Neurological Surgery 07/31/23 Carlos Dailey MD [address] [address] Consulting Physician Colon and Rectal Surgery 10/26/23 Saida Mckeon VICE PRESIDENT INVESTOR RELATIONS, FIBERGLASS MACHINE OPERATOR [address] [place] [address] Nurse Practitioner Gastroenterology 10/26/23 Jessenia Ward APRN, [facility] [address] [place] [address] Nurse Practitioner Advanced Practice Nurse 11/17/23 Hao Silvestre MD [address] [address] Consulting Physician Neurological Surgery 02/09/2401/27 Dominic Wang MD [place], [place] Consulting Physician Pain Medicine-Pain Management 02/09/24 Butch Muñiz MD [address] [place] [address] Consulting Physician Neurology 02/23/24 documented as of this encounter
--- OUTSIDE RECORDS SUMMARY | 2024-08-22 10:19 | XMS_ITS | Clinical Summary ---
Author Organization [facility] Address [address] [place] [address] Phone Care Team Providers Care Offal Trimmer Name Role Phone Blair Paris MD Unavailable [phone] Darwin Marti MD Primary Care Provider [phone] Hao Silvestre MD Unavailable [phone] Carlos Dailey MD Unavailable Saida Mckeon APRN, HAT BAND ATTACHER Unavailable Jessenia Ward APRN, TABLE GAMES DUAL RATE SUPERVISOR Unavailable + [phone] Dominic Wang MD Unavailable [phone] Butch Muñiz MD Unavailable [phone] Allergies Active Allergy Reactions Criticality Noted Date Comments Cephalosporins Rash Medium 02/08/2020 Codeine Unknown Meperidine Hives 06/15/2015 Fish Allergy Unknown,Other (see Comments) 06/15/2015 Reaction: Unknown, Kiwi Extract Unknown 06/15/2015 Latex Itching 06/15/2015 Penicillins Unknown [place] Extract Unknown 06/15/2015 Sulfa Antibiotics Unknown Tetanus Antitoxin Swelling 06/15/2015 Hydrocodone-Acetaminophen Vomiting 06/15/2015 Medications Vitamin D, Cholecalciferol , 25 MCG (1000 UT) Capsule Take 1,000 Units by mouth daily. 0 Active Multiple Vitamin (MULTIVITAMIN PO) Take 1 Tab by mouth daily. Active hydrOXYzine (VISTARIL) 25 MG CapsuleIndicati ons:Vestibular migraine Take 1 Cap by mouth every 4 hours as needed (dizziness). 90 Cap 0 Active Calcium Carbonate (CALCIUM 600 PO) Take by mouth. Activ e Mometasone Furo-Formoterol Fum (Dulera) 100-5 MCG/ACT AerosolIndicati ons:Uncomplicat ed asthma take 2 Puffs by inhalation 2 times daily. 10 g 1 2 Active albuterol 108 (90 Base) MCG/ACT Aerosol SolutionIndicat ions:Uncomplica jade asthma take 1 Puff by inhalation every 4 hours as needed for Wheezing. takes PRN, hasn't taken for several weeks 8.5 g 2 2 Active dicyclomine (BENTYL) 20 MG Tablet Take 1 Tablet by mouth every 6 hours. 30 Tablet 3 Active clopidogrel (PLAVIX) 75 MG Tablet Take 1 tablet by mouth once daily 90 Tablet 2 4 Active pantoprazole (PROTONIX) 40 MG Tablet Delayed Response Take 1 tablet by mouth once daily 90 Tablet 3 4 Active EQ Allergy Relief, Cetirizine, 10 MG Tablet Take 1 tablet by mouth once daily 90 Tablet 3 4 Active Additional Information Patient taking differently: DAILY, Reported on 11/12/2023 meclizine (ANTIVERT) 25 MG Tablet Take 1 tablet by mouth three times daily as needed 270 Tablet 4 Active hydroCHLOROthia zide (MICROZIDE) 12.5 MG CapsuleIndicati ons:Hypertensio n, essential Take 1 Capsule by mouth daily. 90 Capsule 3 4 Active lisinopril (PRINIVIL, ZESTRIL) 10 MG TabletIndicatio ns:Hypertension , essential Take 1 Tablet by mouth daily. 90 Tablet 3 4 Active gabapentin (NEURONTIN) 300 MG CapsuleIndicati ons:Neuropathy TAKE 1 CAPSULE BY MOUTH THREE TIMES DAILY 270 Capsule 4 Active levothyroxine (SYNTHROID) 50 MCG TabletIndicatio ns:Hypothyroidi sm (acquired) Take 1 tablet by mouth once daily 90 Tablet 4 Active meloxicam (MOBIC) 15 MG Tablet Take 1 tablet by mouth once daily 90 Tablet 1 4 Active simvastatin (ZOCOR) 40 MG Tablet Take 1 tablet by mouth once daily 90 Tablet 4 Active Active Problems Problem Noted Date Diagnosed [...] Date Intractable abdominal pain 09/26/2023 0 02/09/2024 watermelon inspector current use of 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 07/04/20222024 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 4 Seizure 06/27/2021 07/31/2023 GERD (gastroesophageal reflux disease) 03/28/202107/31/2023 Degenerative lumbar spinal stenosis 03/28/202107/3102/09/2024 Orbital lesion 03/07/2021 07/31/2023 Chest pain 11/20/2019 01/12/2020 Nausea and vomiting 11/20/2019 01/12/20 Syncope and collapse 11/20/2019 020 'Jarlr-hrv-sosrg' infant wit h signs of malnutrition 01/11/2019 01/11/2019 Acute cystitis without hematuria 08/16/2018 01/11/2019 Orthostatic dizziness 08/16/20182019 Hypothermia 08/16/2018 01/11/2019 Subacromial impingement of left shoulder 11/27/2017 12/01/2017 Arthritis of left acromioclavicular joint 11/27/2017 12/01/2017 Biceps tendonitis, left 11/27/201710/2017 Pain in both lower extremities 03/18/2016 07/31/2023 Acute pyelonephritis 11/05/2015 016 Constipation - functional 07/10/2015 Gallbladder disorder 07/10/2015 016 Gastritis 03/18/2016 Overview (05/15/2015): Mild Encounters Date Type Department Care Team Description 07/14/2024 [facility]phone [facility] [address] [place] [address] Darwin Marti MD Medication Management 06/25/2024 Refill [facility] [place] [address] [place] [address] Darwin Marti MD Medication Refill 06/20/2024 11:15 AM ELECTRIC MULE DRIVER Office Visit [facility] - Primary Care - [place] [address] [place] [address] Darwin Marti MD Pre-operative examination for internal medicine (Primary Dx); Trigger ring finger of left hand Discharge Disposition: Discharged to home or Selfcare 06/20/2024 [address]phone [address] [place] [phone] Darwin Marti MD Form Completion (Pre-op Clearance) 06/20/2024 Travel 06/20/2024 [place]ill [place] [place] [address] [place] [address] Darwin Marti MD Medication Refill from Last [...] drink = 0.6 oz pur e alcohol) [facility] Utilities Answer Date Recorded In the [...] often do you attend chur ch or hindu services? Never 09/26/2023 Do you belong to any clubs o r organizations such as jehovah's witness groups, unions, fraternal or athletic groups, or [...] Patient declined 09/26/2023 PHQ-2 Answer Date Recorded PHQ-2 Score 2 07/14/2019 [facility] [place] of Occupat ional Health - Occupational Stress [...] place to sleep or slept in a long-term (including now)? No 09/26/2023 Sexually Active Control [...] Comments Blood Pressure 130/68 06/20/2024 11:01 AM ELECTRIC MULE DRIVER Pulse 63 06/20/2024 11:01 AM ELECTRIC MULE DRIVER Temperature 35.9 C (96.7 F) 06/20/2024 11:01 AM ELECTRIC MULE DRIVER Respiratory Rate 20 06/20/2024 11:01 AM ELECTRIC MULE DRIVER Oxygen Saturation 99% 06/20/2024 11:01 AM ELECTRIC MULE DRIVER Inhaled Oxygen Concentration - - Weight 76.4 kg (168 lb 8 oz) 06/20/2024 11:01 AM ELECTRIC MULE DRIVER Height 162.6 cm (5' 4 ) 06/20/2024 11:01 AM ELECTRIC MULE DRIVER Body Mass Index 28.92 06/20/2024 11:01 AM ELECTRIC MULE DRIVER Plan of Treatment Upcoming Encounters Date Type Department Care Team (Late st Contact Info) Description 08/25/2024 2:15 PM ELECTRIC MULE DRIVER Office Visit [facility] - Primary Care - [place] [address] [place] [address] Darwin Marti MD [address] [place] [address] 02/20/2025 9:30 AM CDT [facility] [place] [address] [place] [phone] Jessenia Ward APRN, TABLE GAMES DUAL RATE SUPERVISOR [address] [place] [address] Health Maintenance Due Date Last Done Comments Zoster Immunization (2 of 3) 03/24/2013 01/27/2013 Respiratory Syncytial Virus (RSV) Immunization (Adult) (1 - 1-dose 75+ series) 01/15/2023 DEXA Bone Density 08/09/2023 08/09/2021, , 04/23/2017, Additional history exists SARS-COV-2 Immunization (2023- season) 2024 07/01/2021, 11/06/2020, 10/09/2020 Pneumococcal Immunization (50+ years) Completed 09/23/2016, 01/27/2013 Pneumococcal Immunization Combined Discontinued 09/23/2016, 01/27/2013 Mammogram Discontinued 03/08/2020, 01/28, 09/25/2016 Hepatitis C Virus (HCV) Screening Completed 07/31/2023 Immunochemical Fecal Occult Blood Discontinued 09/26/2023, 08/16/2018 Colonoscopy High Risk Discontinued 12/03/2023, 013 Colonoscopy Discontinued 12/03/2023, 0611/2023, 07/22/2012 Colorectal Cancer Screening Discontinued Influenza Immunization [...] Immunization Discontinued Medical Devices Implanted Type Area Slurry Plant Operator Device Identifier Shelf Expiration Date Model / Serial / Lot Bsplt Tib Trthln 3 Kn Prm Beaded Prpt - [id number] Implanted:Qty: 1 on 06/27/2015 by Benji Dickey MD at [facility] IMPLANT Right: Knee [employer]IS[employer] / ORTH[employer] 01/27/2020 5526-B-30 0 / / [id number] Ins Tib 3 9mm Kn X3 Cndrl Stab Trthln - [id number] Implanted:Qty: 1 on 06/27/2015 by Benji Dickey MD at [facility] IMPLANT Right: Knee [employer] / ORTH[employer] 01/27/2020 5531-G-30 9 / / [id number] Bioinductive Arthroscopic Generation 3 Medium - [id number] Implanted:Qty: 1 on 11/30/2017 by Blair Paris MD at [facility] IMPLANT Left: Shoulder Quiñones Nephew [employer] 10/27/2019 2169-2 / 2169-2 / [id number] Tendon Staple Implant - [id number] Implanted:Qty: 1 on 11/30/2017 by Blair Paris MD at [facility] IMPLANT Left: Shoulder Quiñones [employer] 05/18/2018 2504-1 / 2504-1 / [id number] Loris Bone 3 W/Arthroscopic Delivery System - [id number] Implanted:Qty: 1 on 11/30/2017 by Blair Paris MD at [facility] IMPLANT Left: Shoulder Quiñones Nephew Endoscopy 06/30/2018 2503-A / 2503-A / [id number] Asym Metal Backed Patella Implanted:Qty: 1 on 06/27/2015 by Benji Dickey MD at [facility] Right: Knee [employer] / ORTHOPAED[employer] 11/26/2019 [id number] / / [id number] Cruciate Retaining Femoral Implanted:Qty: 1 on 06/27/2015 by Benji Dickey MD at [facility] Right: Knee [employer]ELA / ORTHOPAEDICS 04/03/2020 / / [id number] Procedures Procedure Name Priority Date/Time Associated Diagnosis Comments ORTHOPEDIC PROCEDURE 07/19/2024 12:00 AM ELECTRIC MULE DRIVER OUTPATIENT ABO & RH W/ ANTIBODY SCREEN 07/11/2024 12:00 AM ELECTRIC MULE DRIVER PROTIME (PT) (PROTHROMBIN TIME) 07/11/2024 12:00 AM ELECTRIC MULE DRIVER URINALYSIS (UA) RANDOM 07/11/2024 12:00 AM ELECTRIC MULE DRIVER COMPLETE BLOOD COUNT (CBC) WITH DIFF 07/11/2024 12:00 AM ELECTRIC MULE DRIVER APTT (PTT) 07/11/2024 12:00 AM ELECTRIC MULE DRIVER BASIC METABOLIC PANEL W/ CALCIUM TOTAL 07/11/2024 12:00 AM ELECTRIC MULE DRIVER CULTURE, URINE 07/11/2024 12:00 AM ELECTRIC MULE DRIVER STOOL, OCCULT BLOOD, DIAGNOSTIC, VIA GUAIAC STAT 09/26/2023 11:05 AM CDT HEPATITIS C ANTIBODY Routine 07/31/2023 1:37 PM ELECTRIC MULE DRIVER Encounter for hepatitis C screening test for low risk patient [facility] BONE DENSITOMETRY AXIAL SKELETON Routine 08/09/2021 9:35 AM ELECTRIC MULE DRIVER Postmenopausal [facility] DIAG BILATERAL DIGITAL W CAD W BRI Routine 03/08/2020 11:00 AM CDT Encounter for screening mammogram for breast cancer Abnormal mammogram COLONOSCOPY Routine 07/22/2012 from Last 3 Months or Most Recently Relevant to Health Maintenance Results * ORTHOPEDIC PROCEDURE (07/19/2024 12:00 AM ELECTRIC MULE DRIVER) 07/19/2024 us Provider Scan GEN ORDERS Final Result SCAN * URINALYSIS (UA) RANDOM (07/11/2024 12:00 AM ELECTRIC MULE DRIVER) 07/11/2024 us Provider Scan URINE ORDERABLES Final Result Performing Organization Address [facility] de Phone Number SCAN * APTT (PTT) (07/11/2024 12:00 AM ELECTRIC MULE DRIVER) 07/11/2024 us Provider Scan HEMATOLOGY ORDERABLES Final Resu lt Performing Organization Address [facility] de Phone Number SCAN * PROTIME (PT) (PROTHROMBIN TIME) (07/11/2024 12:00 AM ELECTRIC MULE DRIVER) INR 0.9 SCAN 07/11/2024 us Provider Scan HEMATOLOGY ORDERABLES Final Resu lt Performing Organization Address [facility] de Phone Number SCAN * OUTPATIENT ABO & RH W/ ANTIBODY SCREEN (07/11/2024 12:00 AM ELECTRIC MULE DRIVER) 07/11/2024 us Provider Scan BLOOD BANK ORDERABLES Final Resu lt Performing Organization Address [facility] de Phone Number SCAN * CULTURE, URINE (07/11/2024 12:00 AM ELECTRIC MULE DRIVER) 07/11/2024 us Provider Scan MICROBIOLOGY - GENERAL ORDERABLE S Final Result Performing Organization [facility] de Phone Number SCAN * COMPLETE BLOOD COUNT (CBC) WITH DIFF (07/11/2024 12:00 AM ELECTRIC MULE DRIVER) 07/11/2024 us Provider Scan HEMATOLOGY ORDERABLES Final Resu lt Performing Organization Address [facility] de Phone Number SCAN * BASIC METABOLIC PANEL W/ CALCIUM TOTAL (07/11/2024 12:00 AM ELECTRIC MULE DRIVER) 07/11/2024 us Provider Scan CHEMISTRY ORDERABLES Final Resul t SCAN * Stool, Occult Blood, Diagnostic (09/26/2023 11:05 AM CDT) OCCULT BLOOD DIAG, GI BLEED Negative Negative 09/26/2023 11:[address] Stool STOOL SPECIMEN / Unknown Non-Phlebotomy Collection / Unknown 09/26/2023 11:05 AM CDT 09/26/2023 11:12 AM CDT us Roque Sewell Elsa OUTPATIENT CODING SPECIALIST, HAT BAND ATTACHER BODY FLUIDS & STOOLS OR DERABLES Final Result Performing Organization Address [facility] de Phone Number [facility] [address] [place] [address] * HEPATITIS C ANTIBODY (07/31/2023 1:37 PM ELECTRIC MULE DRIVER) hepatitis C antibody 0.06 <1 S/[facility] ARCH [id number] B 07/31/2023 9:41 PM ELECTRIC MULE DRIVER [facility] Comment: Signal/Cutoff ratio < 0.79 is Nondetected Signal/Cutoff ratio 0.80-0.99 is Grayzone Signal/Cutoff ratio > 0.99 is Detected Supplemental assays are recommended if signal/cutoff ratio is >/=1.00. Signal/cutoff ratio result >/= 5.00 is 97% predictive of positivity for recombinant immunoblot assay (RIBA) and will be reported to the [place] Department of Public Health as required. Blood Venipuncture / Unknown 07/31/2023 1:37 PM ELECTRIC MULE DRIVER 07/31/2023 1:37 PM ELECTRIC MULE DRIVER us Darwin Marti MD CHEMISTRY ORDERABLES Sindhu l Result Performing Organization Address [facility] Co de Phone Number [facility] [address] [place] [address], [place] * [facility] BONE DENSITOMETRY AXIAL SKELETON (08/09/2021 9:35 AM ELECTRIC MULE DRIVER) Anatomical Region Laterality Modality BODY N/A Other 08/09/2021 10:0 9 AM ELECTRIC MULE DRIVER Impressions 08/09/2021 10:12 AM ELECTRIC MULE DRIVER IMPRESSION: Low bone mass Fracture risk assessment [...] of Osteoporosis (http://www.nof.org/professionals/clinical-guidelines) Narrative 08/09/2021 10:12 AM ELECTRIC MULE DRIVER EXAM DESCRIPTION: [facility] BONE DENSITOMETRY AXIAL SKELETON REASON FOR STUDY: 71 y/o year old F with given history of screening. Slurry Plant Operator/Model: Attolight (S/N [id number]) CLINICAL INFORMATION: Current height: 5 foot 3.5 [...] Blair Alcaraz M.D. AG: RHIANNON Report ID: [id number] Reading Location: [place] [address] Procedure Note Blair Alcaraz MD - 08/09/2021 EXAM DESCRIPTION: JAMIE BONE DENSITOMETRY AXIAL SKELETON REASON FOR STUDY: 71 y/o year old F with given history of screening. Slurry Plant Operator/Model: Attolight (S/N [id number]) CLINICAL INFORMATION: Current height: 5 foot 3.5 [...] Blair Alcaraz M.D. AG: RHIANNON Report ID: [id number] Reading Location: [place] [address] IMPRESSION: Low bone mass Fracture risk assessment [...] of Osteoporosis (http://www.nof.org/professionals/clinical-guidelines) us Luann Cox MD IMG DEXA ORDERABLES Final Re sult * JAMIE [...] to exams dated: 02/18/2018, 09/25/2016, and 04/25/2014 [facility]. BREAST TISSUE:The tissue of both [...] signed by: Gracie Patel M.D. ll/:03/08/2020 11:16:23 Card Room Manager: Landy Vance)(Mag), [facility] letter sent: Normal Exam Reading location: [facility] OVERALL STUDY BIRADS: 1 Negative Procedure Note [...] to exams dated: 02/18/2018, 09/25/2016, and 04/25/2014 [facility]. BREAST TISSUE:The tissue of both [...] signed by: Gracie Patel M.D. ll/:03/08/2020 11:16:23 Card Room Manager: Landy Vance)(M), [facility] letter sent: Normal Exam Reading location: [facility] OVERALL STUDY BIRADS: 1 Negative us Luann Cox MD IMG MAMMO ORDERABLES Final R esult * HM COLONOSCOPY (07/22/2012) us Any Lewis MD PROCEDURE/MINOR SURGIC AL ORDERABLES Final Result from Last 3 Months or Most Recently Relevant to Health Maintenance Insurance MEDICARE Member Subscriber Plan / Payer (Ef fective 2012-Present) Name:Yaima Barnes Member ID:[id number] Relation to Subscriber:Self Name:Yaima Barnes Subscriber ID:[id number] Payer ID:[id number] Group ID:[id number] Type:Not on file Address: [facility] [address] [facility] [employer] [facility], [place] [address] [facility] Advance Directives Documents on File Type Date Recorded Patient Physical Therapy Teacher Expl anation POLST/POST/DE DNR 08/19/2018 9:34 AM polst 08/18/2018 Power of Loading Machine Tool Setter for Health Care 08/18/2018 1:08 PM POA-HC [...] measures to stabilize the patient. Care Teams Offal Trimmer Relationship Specialty [place] [address] [place] [address] PCP - General Internal Medicine 07/31/23 Blair Paris MD [address] [place] [address], [address] [place] [address] Consulting Physician Orthopaedic Sports Medicine 07/31/23 Hao Silvestre MD [address] [place] [address] Consulting Physician Neurological Surgery 07/31/23 Carlos Dailey MD [address] [address] Consulting Physician Colon and Rectal Surgery 10/26/23 Saida Mckeon APRN, HAT BAND ATTACHER [address] [place] [address] Nurse Practitioner Gastroenterology 10/26/23 Jessenia Ward APRN, TABLE GAMES DUAL RATE SUPERVISOR [address] [place] [address] Nurse Practitioner Advanced Practice Nurse 11/17/23 Dominic Wang MD [place], [place] Consulting Physician Pain Medicine-Pain Management 02/09/24 Butch Muñiz MD [address] [place] [phone] Consulting Physician Neurology 02/23/24
--- OUTSIDE RECORDS SUMMARY | 2024-08-22 10:19 | XMS_ITS | Encounter Summary ---
Author Organization [facility] Address [address] [place] [address] Phone Care Team Providers Care Motor Room Controller Name Role Phone Luann Cox MD Primary Care Provider + [phone] Josiane Pacheco MD Primary Care Provider + [phone] Blair Paris MD Unavailable [phone] Jose A Espinosa MD Unavailable [phone] Darwin Marti MD Primary Care Provider +[phone] Hao Silvestre MD Unavailable +[phone] Carlos Dailey MD Unavailable Saida Mckeon APRN, THRILL PERFORMER Unavailable Jessenia aWrd APRN, AIRPORT MANAGER Unavailable +- [phone] Hao Silvestre MD Unavailable +[phone] Dominic Wang MD Unavailable [phone] Butch Muñiz MD Unavailable +[phone] Reason for Visit * Reason Comments Medication Refill Encounter Details Date Type Department Care Team (Late st Contact Info) Description 10/06/2020 Refill [facility] [address] [place] [address] Luann Cox MD [address] [place] [address] Medication Refill Social History Tobacco [...] COVID-19? No / Unsure 09/06/2020 11:36 AM AWS DEVELOPER documented as of this encounter Miscellaneous Notes [...] Spinal stenosis, lumbar region, with neurogenic claudication [facility] Luann Cox MD 2 months ago Uncomplicated asthma [facility] Luann Cox MD 9 months ago Essential hypertension [facility] Luann Cox MD 1 year ago Essential hypertension [facility] Luann Cox MD 1 year ago Essential hypertension [facility] Luann Cox MD Upcoming Appointments Future Appointments In 5 months Launn Cox MD [facility] - Recent and Past Visits Recent Visits Date Type Provider Dept 09/06/20 Office Visit Luann Cox MD [facility] 07/24/20 Office Visit Luann Cox MD [facility] 01/12/20 Office Visit Luann Cox MD [facility] 07/14/19 Office Visit Luann Cox MD [facility] Showing recent visits within past 460 [...] Spinal stenosis, lumbar region, with neurogenic claudication [facility] Luann Cox MD 2 months ago Uncomplicated asthma [facility] Luann Cox MD 9 months ago Essential hypertension [facility] Luann Cox MD 1 year ago Essential hypertension [facility] Luann Cox MD 1 year ago Essential hypertension [facility] - Luann Torres MD Upcoming Appointments Future Appointments In 5 months Luann Cox MD [facility] - Recent and Past Visits Recent Visits Date Type Provider Dept 09/06/20 Office Visit Luann Cox MD [facility] 07/24/20 Office Visit Luann Cox MD [facility] 01/12/20 Office Visit Luann Cox MD [facility] 07/14/19 Office Visit Luann Cox MD [facility] Showing recent visits within past 460 [...] st Contact Info) Description 08/25/2024 2:15 PM AWS DEVELOPER Office Visit [facility] [place] [address] [place] [address] Darwin Marti MD [address] [place] [address] 02/20/2025 9:30 AM CDT Office Visit [facility] - Neurology - [place] [address] [place] [address] Jessenia Ward APRN, AIRPORT MANAGER [address] [place] [address] documented as of this encounter Visit Diagnoses Diagnosis Gastroesophageal reflux disease Esophageal reflux documented in this encounter Additional Health Concerns Infection Onset Date Last Indicated Resolved Time ESBL 08/16/2018 08/16/2018 09/28/2023 9:03 AM CDT COVID - 19 03/09/2023 03/09/2023 03/19/2023 12:1 6 AM CDT Respiratory Rule-Out 03/09/2023 03/09/2023 023 2:09 AM CDT COVID - 19 05/07/2023 05/07/2023 05/07/2023 9:50 AM AWS DEVELOPER COVID - 19 Confirmed 05/07/2023 05/07/2023 023 12:16 AM AWS DEVELOPER C. difficile Rule-Out 09/24/2023 09/24/20232023 3:41 PM CDT COVID - 19 09/24/2023 09/24/2023 09/24/2023 11:3 2 AM CDT C. difficile Rule-Out 09/27/2023 09/27/20232023 2:13 PM CDT COVID - 19 02/23/2024 02/23/2024 02/23/2024 11:2 8 AM CDT Respiratory Rule-Out 02/23/2024 02/23/2024 024 11:30 AM CDT Assessment Noted Time PHQ-9 Depression Total Score: 2 07/14/19 20 10:00 AM AWS DEVELOPER documented as of this encounter Care Teams Motor Room Controller Relationship Specialty Start Date End Date Luann Cox MD PCP - General Family Medicine 04/15/15 11/02/22 Josiane Pacheco MD [address] [place] [address] PCP - General Family Medicine 11/20/22 07/30/23 Darwin Marti MD [address] [place] [address] PCP - General Internal Medicine 07/31/23 Blair Paris MD 4 [facility] [address] [place] [address] Consulting Physician Orthopaedic Sports Medicine 07/31/23 Jose A Espinosa MD 2 [facility] [address] [place] [address] Consulting Physician Pain Medicine-Pain Management 07/31/23 02/08/24 Hao Silvestre MD [address] [address] Consulting Physician Neurological Surgery 07/31/23 Carlos Dailey MD [address] [facility] [address] [place] [address] Consulting Physician Colon and Rectal Surgery 10/26/23 Saida Mckeon APRN, THRILL PERFORMER [address] [place] [address] Nurse Practitioner Gastroenterology 10/26/23 Jessenia Ward APRN, AIRPORT MANAGER [address] [place] [address] Nurse Practitioner Advanced Practice Nurse 11/17/23 Hao Silvestre MD [address] [address] Consulting Physician Neurological Surgery 02/09/2401/27 Dominic Wang MD [place], [place] Consulting Physician Pain Medicine-Pain Management 02/09/24 Butch Muñiz MD [address] [place] [address] Consulting Physician Neurology 02/23/24 documented as of this encounter
--- OUTSIDE RECORDS SUMMARY | 2024-08-22 10:19 | XMS_ITS | Encounter Summary ---
Author Organization [facility] Address [address] [place] [address] Phone Care Team Providers Care Photographic Press Screwmaker Name Role Phone Luann Cox MD Primary Care Provider + [phone] Josiane Pacheco MD Primary Care Provider + [phone] Blair Paris MD Unavailable [phone] Jose A Espinosa MD Unavailable [phone] Darwin Marti MD Primary Care Provider [phone] Hao Silvestre MD Unavailable [phone] Carlos Dailey MD Unavailable Saida Mckeon APRN, AD CLERK Unavailable Jessenia Ward APRN, MANAGER CONTRACTING Unavailable + [phone] Hao Silvestre MD Unavailable [phone] Dominic Wang MD Unavailable [phone] Butch Muñiz MD Unavailable [phone] Reason for Visit * Reason Comments Medication Refill Encounter Details Date Type Department Care Team (Late st Contact Info) Description 04/27/2021 Refill [facility] - Primary Care - [place] [address] [place] [id number] Luann Cox MD [address] [place] [address] Medication Refill Social History Tobacco [...] Dept 03/07/21 Office Visit Luann Cox MD [facility] 09/06/20 Office Visit [facility] MD [facility] [employer] [address] 07/24/20 Office Visit Luann Cox MD [facility] [employer] Showing recent visits within past 365 days and meeting all other requirements Future Appointments Date Type Provider Dept 06/13/21 Appointment Luann Cox MD [facility] [employer] Showing future appointments within next 90 days [...] Dept 03/07/21 Office Visit Luann Cox MD [facility] [employer] [address] 09/06/20 Office Visit Luann Cox MD [facility] [employer] [address] 07/24/20 Office Visit Luann Cox MD [facility] [employer] Showing recent visits within past 365 days and meeting all other requirements Future Appointments Date Type Provider Dept 06/13/21 Appointment Luann Cox MD [facility] [employer] Showing future appointments within next 90 days and meeting all other requirements documented in this encounter Plan of Treatment Upcoming Encounters Date Type Department Care Team (Late st Contact Info) Description 08/25/2024 2:15 PM TECHNICAL SUPPORT CONSULTANT Office Visit [facility] - Primary Care - [place] [address] [place] [address] Darwin Marti MD [address] [place] [address] 02/20/2025 9:30 AM CDT Office Visit [facility] - Neurology - [place] [address] [place] [phone] Jessenia Ward APRN, MANAGER CONTRACTING [address] [place] [address] documented as of this encounter Visit Diagnoses Diagnosis Hyperlipidemia, unspecified hyperlipidemia type documented in this encounter Additional Health Concerns Infection Onset Date Last Indicated Resolved Time ESBL 08/16/2018 08/16/2018 09/28/2023 9:03 AM CDT COVID - 19 03/09/2023 03/09/2023 03/19/2023 12:1 6 AM CDT Respiratory Rule-Out 03/09/2023 03/09/2023 023 2:09 AM CDT COVID - 19 05/07/2023 05/07/2023 05/07/2023 9:50 AM TECHNICAL SUPPORT CONSULTANT COVID - 19 Confirmed 05/07/2023 05/07/2023 023 12:16 AM TECHNICAL SUPPORT CONSULTANT C. difficile Rule-Out 09/24/2023 09/24/20232023 3:41 PM CDT COVID - 19 09/24/2023 09/24/2023 09/24/2023 11:3 2 AM CDT C. difficile Rule-Out 09/27/2023 09/27/20232023 2:13 PM CDT COVID - 19 02/23/2024 02/23/2024 02/23/2024 11:2 8 AM CDT Respiratory Rule-Out 02/23/2024 02/23/2024 024 11:30 AM CDT Assessment Noted Time PHQ-9 Depression Total Score: 2 07/14/19 20 10:00 AM TECHNICAL SUPPORT CONSULTANT documented as of this encounter Care Teams Photographic Press Screwmaker Relationship Specialty Start Date End Date Luann Cox MD PCP - General Family Medicine 04/15/15 11/02/22 Josiane Pacheco MD [address] [place] [address] PCP - General Family Medicine 11/20/22 07/30/23 Darwin Marti MD [address] [place] [address] PCP - General Internal Medicine 07/31/23 Blair Paris MD 4 [facility] [address] [place] [address] Consulting Physician Orthopaedic Sports Medicine 07/31/23 Jose A Espinosa MD 2 [facility] [address] [place] [address] Consulting Physician Pain Medicine-Pain Management 07/31/23 02/08/24 Hao Silvestre MD [address] [id number] Consulting Physician Neurological Surgery 07/31/23 Carlos Dailey MD #2 [facility] [address] [place] [address] Consulting Physician Colon and Rectal Surgery 10/26/23 Saida Mckeon APRN, AD CLERK [address] [place] [address] Nurse Practitioner Gastroenterology 10/26/23 Jessenia Ward APRN, MANAGER CONTRACTING [address] [place] [address] Nurse Practitioner Advanced Practice Nurse 11/17/23 Hao Silvestre MD [address] [id number] Consulting Physician Neurological Surgery 02/09/2401/27 Dominic Wang MD [place], [place] Consulting Physician Pain Medicine-Pain Management 02/09/24 Butch Muñiz MD [address] [place] [address] Consulting Physician Neurology 02/23/24 documented as of this encounter
--- OUTSIDE RECORDS SUMMARY | 2024-08-22 10:19 | XMS_ITS | Encounter Summary ---
Author Organization [facility] Address [address] [place] [address] Phone Care Team Providers Care Bulb Grower Name Role Phone NaidaalisBlair guerrero MD Unavailable Darwin Marti MD Primary Care Provider + [phone] Hao Silvestre MD Unavailable [phone] Carlos Dailey MD Unavailable Saida Mckeon APRN, METAL FABRICATOR Unavailable Jessenia Ward APRN, PROCTOLOGIST Unavailable + [phone] Dominic Wang MD Unavailable [phone] Butch Muñiz MD Unavailable [phone] Reason for Visit * Reason Onset Date Comments Cough 02/23/2024 Chest Congestion 02/23/2024 Encounter Details Date Type Department Care Team (Late st Contact Info) Description 02/23/2024 Nurse Triage [facility] [address] [place] [address] Darwin Marti MD [address] [place] [address] Cough; Chest Congestion Social History Tobacco Use Types Packs/Day Years Used Date Smoking Tobacco: Former Cigarettes 2 41.8 1 964 - 04/09/2005 Smokeless Tobacco: Never Alcohol Use Standard Drinks/Week Comments No 0 (1 standard drink = 0.6 oz pur e alcohol) [facility] Utilities Answer Date Recorded In [...] often do you attend chur ch or rastafari services? Never 09/26/2023 Do you belong to any clubs o r organizations such as lutheran groups, unions, fraternal or athletic groups, or [...] Answer Date Recorded PHQ-2 Score 2 07/14/2019 [facility] - Occupational Stress [...] place to sleep or slept in a custodial (including now)? No 09/26/2023 Sexually Active Control [...] Dept Phone 02/23/2024 9:15 AM Butch Muñiz [facility] - Neurology - [place] [phone] 02/23/2024 11:00 AM Darwin Marti [facility] - Primary Care - [place] [phone] Patient states that her medications and allergies [...] st Contact Info) Description 08/25/2024 2:15 PM LOCOMOTIVE BOILERMAKER Office Visit [facility] - Primary Care - [place] [address] [place] [address] Darwin Marti MD [address] [place] [address] 02/20/2025 9:30 AM CDT Office Visit [facility] - Neurology - [place] [address] [place] [address] Jessenia Ward, HAULAGE ENGINE OPERATOR, PROCTOLOGIST [address] [place] [address] documented as of this encounter Visit Diagnoses Not on filedocumented in this encounter Additional Health Concerns Infection Onset Date Last Indicated Resolved Time COVID - 19 02/23/2024 02/23/2024 02/23/2024 11:2 8 AM CDT Respiratory Rule-Out 02/23/2024 02/23/2024 024 11:30 AM CDT Assessment Noted Time PHQ-9 Depression Total Score: 0 07/31/19 24 12:53 PM LOCOMOTIVE BOILERMAKER documented as of this encounter Care Teams Bulb Grower Relationship Specialty Start Date End Date Darwin Marti MD [address] [place] [address] PCP - General Internal Medicine 07/31/23 Blair Paris MD [address] [place] [address], [address] [address] Consulting Physician Orthopaedic Sports Medicine 07/31/23 Hao Silvestre MD [address] [facility] [address] [place] [id number] Consulting Physician Neurological Surgery 07/31/23 Carlos Dailey MD #[address] [address] Consulting Physician Colon and Rectal Surgery 10/26/23 Saida Mckeon APRN, METAL FABRICATOR [address] [place] [address] Nurse Practitioner Gastroenterology 10/26/23 Jessenia Ward APRN, PROCTOLOGIST [address] [place] [address] Nurse Practitioner Advanced Practice Nurse 11/17/23 Dominic Wang MD [place], [place] Consulting Physician Pain Medicine-Pain Management 02/09/24 Butch Muñiz MD [address] [place] [address] Consulting Physician Neurology 02/23/24 documented as of this encounter
--- OUTSIDE RECORDS SUMMARY | 2024-08-22 10:19 | XMS_ITS | Clinical Summary ---
Author Organization [facility] Medical Office Building B Address [address] [place] [address] Care Team Providers Care Guest Service Representative Name Role Phone Luann Cox MD Primary [...] Vomiting, Penicillins Other (See comments) Reaction: Unknown, [place] Sulfa (Sulfonamide Antibiotics) Other (See comments) Reaction: Unknown, Sulfanilamide Tetanus And Diphtheria Toxoids Tetanus Toxoid Tetanus Vaccines And Toxoid Medications albuterol HFA (PROVENTIL HFA) 90 mcg/actuation inhaler Two puffs three times per day 0 0 9 Active cholecalciferol (VITAMIN D-3) 1,000 unit capsule 0 0 7 Active meloxicam (MOBIC) 15 mg tablet take 1 tablet by oral route every day 0 [address] (PROTONIX) 40 mg EC tablet take 1 tablet by oral route every day 0 0 7 Active simvastatin (ZOCOR) 40 mg tablet take 1 tablet by oral route every day in the evening 0 0 5 Active scsxtbzt-mnjp-j in-folic acid (multivitamin-i rzq-ehobsmhm-wl lic acid) 3,500-18-0.4 unit-mg-mg tablet,chewable 0 0 5 Active mometasone-form oterol (DULERA) 100-5 mcg/actuation inhaler inhale 2 puff by inhalation route 2 times every day in the morning and evening 0 Inhaler 0 5 Active mirabegron ER (MYRBETRIQ) 50 mg tablet extended release 24 hr take 1 tablet by oral route every day swallowing whole with water. Do not crush, chew and/or divide. 0 0 5 Active ascorbic acid (VITAMIN C) 500 mg tablet,chewable Take 1 tablet by mouth 2 times daily until finished 60 tablet/chew tab 8 Active gabapentin (NEURONTIN) 300 mg capsule TAKE ONE CAPSULE BY MOUTH THREE TIMES DAILY FOR 90 DAYS 8 Active cetirizine (ZyrTEC) 10 mg tablet 8 Active hydroCHLOROthia zide (HYDRODIURIL) 25 mg tablet TAKE ONE TABLET BY MOUTH ONCE DAILY 8 Active levothyroxine (SYNTHROID, LEVOTHROID) 50 mcg tablet 8 Active meclizine (ANTIVERT) 25 mg tablet TAKE 1 TABLET BY MOUTH THREE TIMES DAILY NEEDED 8 Active metoprolol (LOPRESSOR) 25 mg tablet Take 1 tablet (25 mg total) by mouth 2 (two) times a day 8 Active clopidogreL (PLAVIX) 75 mg tablet Take 1 tablet (75 mg total) by mouth daily [address] (CYMBALTA) 30 mg capsule Take 1 capsule (30 mg total) by mouth daily 2 Active hydrOXYzine (VISTARIL) 25 mg capsule Take 1 capsule (25 mg total) by mouth every 4 (four) hours as needed 0 Active ondansetron (ZOFRAN) 4 mg tablet Every 4-6 hours as needed 30 tablet 1 5 Active traMADoL (ULTRAM) 50 mg tablet Take 1 tablet (50 mg total) by mouth every 6 (six) hours as needed for pain 28 tablet 5 Active Active Problems Problem Noted Date Diagnosed Date Trigger ring finger of left hand 06/02/2024 DDD (degenerative disc disease), lumbar 07/29/19 23 Lumbar facet arthropathy 07/29/2022 Chronic left shoulder pain 07/04/2022 Chronic bilateral low back pain without sciatica 07/04/2022 Lumbar radiculopathy 07/04/2022 [facility] current use of 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 3 Insomnia secondary to chronic pain 07/04/2022 Anemia 10/08/2021 Blurred vision 10/08/2021 Shortness of breath 10/08/2021 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 Seizure 06/27/2021 Chronic pain syndrome 06/12/2021 GERD (gastroesophageal reflux disease) HLD (hyperlipidemia) 03/28/2021 [...] Department Care Team Description 07/14/2024 11:15 AM GAME ATTENDANT Office Visit [facility] Orthopedic and Sports Medicine [facility] [place] [address] Ev Campos PA Aftercare following surgery of the musculoskeletal system (Primary Dx) 07/01/2024 Telephone [facility] Medical [facility] Orthopedics and Sports Medicine [address] [facility] [address] [place] [address] Ernst Drummond ATC 06/30/2024 7:45 AM GAME ATTENDANT - 06/30/2024 8:30 AM GAME ATTENDANT Surgery [facility] Operating Room [address] [place] [address] Blair Paris MD Left ring trigger finger release 06/30/2024 7:01 AM GAME ATTENDANT - 06/30/2024 8:39 AM GAME ATTENDANT Hospital Encounter [facility] Operating Room [address] [place] [address] Blair Paris MD Trigger ring finger of left hand (Primary Dx) Discharge Disposition: Discharge to home or self care from Last 3 Months Surgical History Surgery Date Site/Laterality Comments TONSILLECTOMY 2009 Tonsillectomy APPENDECTOMY 2009 Appendectomy HYSTERECTOMY 2009 Hysterectomy BRAIN TUMOR EXCISION JOINT REPLACEMENT Medical History Medical History Date Comments History of multiple allergies Al lergies Asthma Asthma Peptic ulcer Peptic ulcer dis ease Arthritis Arthritis Hx Other Medical Hysterectomy 30 years ago.; Comments: RADHA 02/20/2015 - Hx Other Medical Breast tumors 2 8 years ago.; Comments: RADHA 02/20/2015 - Hx Other Medical Right knee A&A 03-07-15.; Comments: RADHA 03/20/2015 - Hx Other Medical Right total kne e replacement 06-27-15.; Comments: 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 Allergic [...] on file Legal Sex Female 6:41 PM GAME ATTENDANT Gender Identity Not on file Sexual Orientation Not on file Obstetrics History Last Filed Vital Signs Vital Sign Reading Time Taken Comments Blood Pressure 132/93 07/14/2024 11:06 AM GAME ATTENDANT Pulse 99 07/14/2024 11:06 AM GAME ATTENDANT Temperature 36.9 C (98.4 F) 06/30/2024 8:25 AM GAME ATTENDANT Respiratory Rate 0 06/30/2024 8:30 AM GAME ATTENDANT Oxygen Saturation 99% 06/30/2024 8:25 AM GAME ATTENDANT Inhaled Oxygen Concentration - - Weight 75.8 kg (167 lb) 07/14/2024 11:06 AM GAME ATTENDANT Height 162.6 cm (5' 4 ) 07/14/2024 11:06 AM GAME ATTENDANT Body Mass Index 28.67 07/14/2024 11:06 AM GAME ATTENDANT Plan of Treatment Health Maintenance Due Date [...] 06/02/2025 06/02/2024 Pneumococcal vaccine 65+ Completed 09/23/2016, 06/2012 Breast Cancer Screening-Mammogram Discontinued 03/08/2020, 03/08/2020, 02/18/2018, Additional history exists Influenza Vaccine Completed 03/18/2024, , 04/22/2022, Additional history exists Procedures Procedure Name Priority Date/Time Associated Diagnosis Comments RELEASE TRIGGER FINGER 06/30/2024 7:35 AM GAME ATTENDANT Trigger ring finger of left hand DEXA AXIAL SKELETON BONE DENSITY 1 OR MORE SITES Schedule Routine, Read Routine (OP Routine) 04/23/2017 4:40 PM CDT from Last 3 Months or Most Recently Relevant to Health Maintenance Results * Dexa Axial Skeleton Bone Density 1 or 2 Site (04/23/2017 4:40 PM CDT) Anatomical Region Laterality Modality N/A Nuclear Medicine 04/23/2017 4:4 0 PM CDT Narrative 04/23/2017 9:07 PM CDT DEXA Bone Density Axial Acc#: [id number] DATE OF EXAM: Apr 23 2017 EXAM: [...] on: Apr 23 2017 3:34P Transcribed by: [facility] On: Apr 23 2017 4:05P Approved Electronically by: DIANELYS SOLORZANO M.D. on: Apr 23 2017 4:05P Ordering DR: JAY WYLIE Attending DR: JAY WYLIE Attending: JAY WYLIE Requesting: JAY WYLIE Requesting Attending Fax: -- Attending ID: [id number] Requesting ID: [id number] Report To 1 ID: [id number] Report To 1 Name: JAY WYLIE Report To 1 FAX: -- [facility] Order #: [id number] Procedure Note Miscellaneous, Not In File - 04/23/2017 DEXA Bone Density Axial Acc#: [id number] DATE OF EXAM: Apr 23 2017 EXAM: [...] WYLIE Requesting Attending Fax: -- Attending ID: [id number] Requesting ID: [id number] Report To 1 ID: [id number] Report To 1 Name: JAY WYLIE Report To 1 FAX: -- [facility] Order #: [id number] Jay Wylie MD IMG DXA PROCEDURES Final R esult from Last 3 Months or Most Recently Relevant to Health Maintenance [place] [address] [place] [address] Care Teams Guest Service Representative Relationship Specialty Start Date End Date Luann Cox MD PCP - General 05/08/09
--- OUTSIDE RECORDS SUMMARY | 2024-08-22 10:19 | XMS_ITS | Encounter Summary ---
Author Organization [facility] Address [address] [place] [address] Phone Care Team Providers Care Seamer Operator Name Role Phone Blair Paris MD Unavailable [phone] Jose A Espinosa MD Unavailable [phone] Darwin Marti MD Primary Care Provider [phone] Hao Silvestre MD Unavailable [phone] Carlos Dailey MD Unavailable Saida Mckeon APRN, AREA MANAGER Unavailable Jessenia Ward APRN, HEALTH UNIT CLERK Unavailable + [phone] Hao Silvestre MD Unavailable [phone] Dominic Wang MD Unavailable [phone] Butch Muñiz MD Unavailable [phone] Reason for Visit * Reason Comments Medication Refill Encounter Details Date Type Department Care Team (Late st Contact Info) Description 10/29/2023 Refill [facility] - Family [facility] [address] [place] [address] Darwin Marti MD [address] [place] [address] Medication Refill Social History Tobacco Use Types Packs/Day Years Used Date Smoking Tobacco: Former Cigarettes 2 41.8 1 964 - 04/09/2005 Smokeless Tobacco: Never Alcohol Use Standard Drinks/Week Comments No 0 (1 standard drink = 0.6 oz pur e alcohol) [facility] Utilities Answer Date Recorded In the past 12 months has [employer], gas, oil, or water [employer] threatened to shut off services in your [...] often do you attend chur ch or confucianism services? Never 09/26/2023 Do you belong to any clubs o r organizations such as yazdanism groups, unions, fraternal or athletic groups, or [...] Answer Date Recorded PHQ-2 Score 2 07/14/2019 [facility] [place] of Occupat ional Health - Occupational Stress [...] place to sleep or slept in a correction (including now)? No 09/26/2023 Sexually Active Control [...] st Contact Info) Description 08/25/2024 2:15 PM DOOR TO DOOR SELLING AGENT Office Visit [facility] - Primary Care - [place] [address] [place] [address] Darwin Marti MD [address] [place] [address] 02/20/2025 9:30 AM CDT Office Visit [facility] - Neurology - [place] [address] [place] [address] Jessenia Ward, TEMPERATURE INSPECTOR, HEALTH UNIT CLERK [address] [place] [address] documented as of this encounter Visit Diagnoses Not on filedocumented in this encounter Additional Health Concerns Infection Onset Date Last Indicated Resolved Time COVID - 19 02/23/2024 02/23/2024 02/23/2024 11:2 8 AM CDT Respiratory Rule-Out 02/23/2024 02/23/2024 024 11:30 AM CDT Assessment Noted Time PHQ-9 Depression Total Score: 0 07/31/19 24 12:53 PM DOOR TO DOOR SELLING AGENT documented as of this encounter Care Teams Seamer Operator Relationship Specialty Start Date End Date Darwin Marti MD [address] [place] [address] PCP - General Internal Medicine 07/31/23 Blair Paris MD 4 [facility], [address] [place] [address] Consulting Physician Orthopaedic Sports Medicine 07/31/23 Jose A Espinosa MD 2 [facility] [address] [place] [address] Consulting Physician Pain Medicine-Pain Management 07/31/23 02/08/24 Hao Silvestre MD [address] [address] Consulting Physician Neurological Surgery 07/31/23 Carlos Dailey MD #[address] [address] Consulting Physician Colon and Rectal Surgery 10/26/23 Saida Mckeon APRN, AREA MANAGER [address] [place] [address] Nurse Practitioner Gastroenterology 10/26/23 Jessenia Ward APRN, HEALTH UNIT CLERK [address] [place] [address] Nurse Practitioner Advanced Practice Nurse 11/17/23 Hao Silvestre MD [facility] [address] [address] Consulting Physician Neurological Surgery 02/09/2401/27 Dominic Wang MD [place], [place] Consulting Physician Pain Medicine-Pain Management 02/09/24 Butch Muñiz MD [address] [place] [address] Consulting Physician Neurology 02/23/24 documented as of this encounter
--- OUTSIDE RECORDS SUMMARY | 2024-08-22 10:19 | XMS_ITS | Encounter Summary ---
Author Organization [facility] Address [address] [place] [address] Phone Care Team Providers Care Sand Wheeler Name Role Phone Blair Paris MD Unavailable [phone] Jose A Espinosa MD Unavailable [phone] Darwin Marti MD Primary Care Provider [phone] Hao Silvestre MD Unavailable [phone] Carlos Dailey MD Unavailable Saida Mckeon APRN, REINFORCED IRONWORKER Unavailable Jessenia Ward APRN, STITCHER SPECIAL MACHINE Unavailable + [phone] Hao Silvestre MD Unavailable [phone] Dominic Wang MD Unavailable [phone] Butch Muñiz MD Unavailable Reason for Visit * Reason Comments Medication Refill Encounter Details Date Type Department Care Team (Late Contact Info) Description 09/08/2023 Refill [facility] [address] [place] [phone] Josiane Pacheco MD [address] [place] [address] Medication Refill Social History Tobacco Use Types [...] (Late Contact Info) Description 08/25/2024 2:15 PM UNDERCOVER COP Office Visit [facility] [address] [place] [address] Darwin Marti MD [address] [place] [address] 02/20/2025 9:30 AM CDT Office Visit [facility] Neurology [facility] [address] [place] [phone] Jessenia Ward APRN, STITCHER SPECIAL MACHINE [address] [place] [address] documented as of this encounter Visit Diagnoses [...] Depression Total Score: 0 07/31/19 12:53 PM UNDERCOVER COP documented as of this encounter Care Teams Sand Wheeler Relationship Specialty Start Date End Date Darwin Marti MD [address] [place] [address] PCP - General Internal Medicine 07/31/23 Blair Paris MD 4 [facility] [address] [place] [address] Consulting Physician Orthopaedic Sports Medicine 07/31/23 Jose A Espinosa MD 2 [facility] [address] [place] [address] Consulting Physician Pain Medicine-Pain Management 07/31/23 02/08/24 Hao Silvestre MD [address] [place] [address] Consulting Physician Neurological Surgery 07/31/23 Carlos Dailey MD #2 [facility] [address] [place] [address] Consulting Physician Colon and Rectal Surgery 10/26/23 Saida Mckeon APRN, REINFORCED IRONWORKER [address] [place] [address] Nurse Practitioner Gastroenterology 10/26/23 Jessenia Ward APRN, STITCHER SPECIAL MACHINE [address] [place] [address] Nurse Practitioner Advanced Practice Nurse 11/17/23 Hao Silvestre MD [address] [address] Consulting Physician Neurological Surgery 02/09/2401/27 Dominic Wang MD [place], [place] Consulting Physician Pain Medicine-Pain Management 02/09/24 Butch Muñiz MD [address] [place] [address] Consulting Physician Neurology 02/23/24 documented as of this encounter
--- OUTSIDE RECORDS SUMMARY | 2024-08-22 10:19 | XMS_ITS | Encounter Summary ---
Author Organization [facility] Address [address] [place] [address] Phone Care Team Providers Care Set Up Mold Technician Name Role Phone Luann Cox MD Primary Care Provider + [phone] Josiane Pacheco MD Primary Care Provider + [phone] Blair Paris MD Unavailable [phone] Jose A Espinosa MD Unavailable [phone] Darwin Marti MD Primary Care Provider [phone] Hao Silvestre MD Unavailable [phone] Carlos Dailey MD Unavailable Saida Mckeon APRN, CHECKER AND PACKER Unavailable Jessenia Ward APRN, OUTSOLE CEMENTER Unavailable + [phone] Hao Silvestre MD Unavailable [phone] Dominic Wang MD Unavailable [phone] Butch Muñiz MD Unavailable [phone] Reason for Visit * Reason Comments Medication Refill Encounter Details Date Type Department Care Team (Late st Contact Info) Description 07/26/2021 Refill [facility] - Primary Care - [place] [address] [place] [phone] Luann Cox MD [address] [place] [address] Medication Refill Social History Tobacco [...] COVID-19? No / Unsure 07/01/2021 11:16 AM UTILITIES GROUND WORKER documented as of this encounter Miscellaneous Notes * Telephone Encounter - Racquel Campos RN - 07/26/2021 9:30 AM UTILITIES GROUND WORKER Medication failed the protocol, provider to review [...] Dept 06/27/21 Office Visit Luann Cox MD [facility] [place] [place] [address] 03/07/21 Office Visit Luann Cox MD [facility] [place] [place] [address] 09/06/20 Office Visit Luann Cox MD [facility] [place] [facility] Showing recent visits within past 365 days and meeting all other requirements Future Appointments Date Type Provider Dept 10/21/21 [facility] Showing future appointments within next 90 [...] Dept 06/27/21 Office Visit Luann Cox MD [facility] [place] [place] [address] 03/07/21 Office Visit Luann Cox MD [facility] [place] [place] [address] 09/06/20 Office Visit Luann Cox MD [facility] [place] [facility] Showing recent visits within past 365 days and meeting all other requirements Future Appointments Date Type Provider Dept 10/21/21 [facility] [place] [facility] Showing future appointments within next 90 [...] Dept 06/27/21 Office Visit Luann Cox MD [facility] [place] [place] [facility] 03/07/21 Office Visit Luann Cox MD [facility] [place] [place] [facility] 09/06/20 Office Visit Luann Cox MD [facility] Showing recent visits within past 365 days and meeting all other requirements Future Appointments Date Type Provider Dept 10/21/21 Appointment Lab, [facility] [place] [facility] Showing future appointments within next 90 [...] Dept 06/27/21 Office Visit Luann Cox MD [facility] [place] [facility] 03/07/21 Office Visit Luann Cox MD [facility] [place] [facility] 09/06/20 Office Visit Luann Cox MD [facility] [place] [facility] Showing recent visits within past 365 days and meeting all other requirements Future Appointments Date Type Provider Dept 10/21/21 [facility] Showing future appointments within next 90 days and meeting all other requirements ITIES GROUND WORKER documented in this encounter Plan of Treatment Upcoming Encounters Date Type Department Care Team (Late st Contact Info) Description 08/25/2024 2:15 PM UTILITIES GROUND WORKER [facility] - Primary Care - [place] [address] [place] [address] Darwin Marti MD [address] [address] 02/20/2025 9:30 AM CDT Office Visit [facility] - Neurology - [place] [address] [place] [address] Jessenia Ward APRN, OUTSOLE CEMENTER [address] [place] [address] documented as of this encounter Visit Diagnoses [...] - 19 05/07/2023 05/07/2023 05/07/2023 9:50 AM UTILITIES GROUND WORKER COVID - 19 Confirmed 05/07/2023 05/07/20232 023 12:16 AM UTILITIES GROUND WORKER C. difficile Rule-Out 09/24/2023 09/24/20232023 3:41 PM CDT COVID - 19 09/24/2023 09/24/2023 09/24/2023 11:3 2 AM CDT C. difficile Rule-Out 09/27/2023 09/27/20232023 2:13 PM CDT COVID - 19 02/23/2024 02/23/2024 02/23/2024 11:2 8 AM CDT Respiratory Rule-Out 02/23/2024 02/23/2024 024 11:30 AM CDT Assessment Noted Time PHQ-9 Depression Total Score: 2 07/14/19 20 10:00 AM UTILITIES GROUND WORKER documented as of this encounter Care Teams Set Up Mold Technician Relationship Specialty Start Date End Date Luann Cox MD PCP - General Family Medicine 04/15/15 11/02/22 Josiane Pacheco MD [address] [address] PCP - General Family Medicine 11/20/22 07/30/23 Darwin Marti MD [address] [address] PCP - General Internal Medicine 07/31/23 Blair Paris MD 4 [facility] [address] [place] [address] Consulting Physician Orthopaedic Sports Medicine 07/31/23 Jose A Espinosa MD 2 [facility] [address] [place] [address] Consulting Physician Pain Medicine-Pain Management 07/31/23 02/08/24 Hao Silvestre MD [address] [facility] [address] [place] [address] Consulting Physician Neurological Surgery 07/31/23 Carlos Dailey MD #2 [facility] [address] [place] [address] Consulting Physician Colon and Rectal Surgery 10/26/23 Saida Mckeon APRN, CHECKER AND PACKER [address] [place] [address] Nurse Practitioner Gastroenterology 10/26/23 Jessenia Ward APRN, [facility] [address] [place] [address] Nurse Practitioner Advanced Practice Nurse 11/17/23 Hao Silvestre MD [address] [address] Consulting Physician Neurological Surgery 02/09/2401/27 Dominic Wang MD [place], [place] Consulting Physician Pain Medicine-Pain Management 02/09/24 Butch Muñiz MD [address] [place] [address] Consulting Physician Neurology 02/23/24 documented as of this encounter
--- OUTSIDE RECORDS SUMMARY | 2024-08-22 10:19 | XMS_ITS | Encounter Summary ---
Author Organization [facility] Address [address] [place] [address] Phone Care Team Providers Care Floor Coverings Salesperson Name Role Phone Luann Cox MD Primary Care Provider + [phone] Josiane Pacheco MD Primary Care Provider + [phone] Blair Paris MD Unavailable [phone] Jose A Espinosa MD Unavailable [phone] Darwin Marti MD Primary Care Provider [phone] Hao Silvestre MD Unavailable [phone] Carlos Dailey MD Unavailable Saida Mckeon APRN, ELECTRONIC WARFARE LINGUIST Unavailable Jessenia Ward APRN, LEAK OPERATOR PARAFFIN PLANT Unavailable + [phone] Hao Silvestre MD Unavailable [phone] Dominic Wang MD Unavailable [phone] Butch Muñiz MD Unavailable [phone] Reason for Visit * Reason Comments Medication Refill Encounter Details Date Type Department Care Team (Late st Contact Info) Description 04/19/2021 Refill [facility] - Primary Care - [place] [address] [place] [phone] Luann Cox MD [address] [place] [address] Medication Refill Social History Tobacco [...] Dept 03/07/21 Office Visit Luann Cox MD [facility] 09/06/20 Office Visit Luann Cox MD [facility] [place] [facility] 07/24/20 [facility] visits within past 365 days and meeting all other requirements Future Appointments Date Type Provider Dept 06/13/21 Appointment Luann Cox MD [facility] [place] [facility] Showing future appointments within next 90 [...] Dept 03/07/21 Office Visit Luann Cox MD [facility] 09/06/20 Office Visit Luann Cox MD [facility] 07/24/20 Office Visit Luann Cox MD [facility] Showing recent visits within past 365 days and meeting all other requirements Future Appointments Date Type Provider Dept 06/13/21 Appointment Luann Cox MD [facility] [place] [facility] Showing future appointments within next 90 [...] Dept 03/07/21 Office Visit [facility] 09/06/20 Office Visit Luann Cox MD [facility] 07/24/20 Office Visit Luann Cox MD [facility] Showing recent visits within past 365 days and meeting all other requirements Future Appointments Date Type Provider Dept 06/13/21 Appointment Luann Cox MD [facility] Showing future appointments within next 90 days and meeting all other requirements Passed - Normal TSH in past 12 months TSH Date Value Ref Range Status 03/05/2021 2.770 0.270 - 4.200 mIU/L Final documented in this encounter Plan of Treatment Upcoming Encounters Date Type Department Care Team (Late st Contact Info) Description 08/25/2024 2:15 PM SOUND EFFECTS PERSON Office Visit [facility] - Primary Care - [place] [address] [place] [address] Darwin Marti MD [address] [place] [address] 02/20/2025 9:30 AM CDT Office Visit [facility] - Neurology [facility] [address] [place] [address] Jessenia Ward APRN, LEAK OPERATOR [employer] [address] [place] [address] documented as of this encounter Visit Diagnoses [...] - 19 05/07/2023 05/07/2023 05/07/2023 9:50 AM SOUND EFFECTS PERSON COVID - 19 Confirmed 05/07/2023 05/07/2023 023 12:16 AM SOUND EFFECTS PERSON C. difficile Rule-Out 09/24/2023 09/24/20232023 3:41 PM CDT COVID - 19 09/24/2023 09/24/2023 09/24/2023 11:3 2 AM CDT C. difficile Rule-Out 09/27/2023 09/27/20232023 2:13 PM CDT COVID - 19 02/23/2024 02/23/2024 02/23/2024 11:2 8 AM CDT Respiratory Rule-Out 02/23/2024 02/23/2024 024 11:30 AM CDT Assessment Noted Time PHQ-9 Depression Total Score: 2 07/14/19 20 10:00 AM SOUND EFFECTS PERSON documented as of this encounter Care Teams Floor Coverings Salesperson Relationship Specialty Start Date End Date Luann Cox MD PCP - General Family Medicine 04/15/15 11/02/22 Josiane Pacheco MD [address] [place] [address] PCP - General Family Medicine 11/20/22 07/30/23 Darwin Marti MD [address] [place] [address] PCP - General Internal Medicine 07/31/23 Blair Paris MD 4 [facility] [address] [place] [address] Consulting Physician Orthopaedic Sports Medicine 07/31/23 Jose A Espinosa MD [address] [facility] [address] [place] [address] Consulting Physician Pain Medicine-Pain Management 07/31/23 02/08/24 Hao Silvestre MD [address] [address] Consulting Physician Neurological Surgery 07/31/23 Carlos Dailey MD #2 [facility] [place] [address] [place] [address] Consulting Physician Colon and Rectal Surgery 10/26/23 Saida Mckeon APRN, ELECTRONIC WARFARE LINGUIST [address] [place] [address] Nurse Practitioner Gastroenterology 10/26/23 Jessenia Ward APRN, LEAK OPERATOR [employer] [address] [place] [address] Nurse Practitioner Advanced Practice Nurse 11/17/23 Hao Silvestre MD [address] [address] Consulting Physician Neurological Surgery 02/09/2401/27 Dominic Wang MD [place], [place] Consulting Physician Pain Medicine-Pain Management 02/09/24 Butch Muñiz MD #[address] [place] [address] Consulting Physician Neurology 02/23/24 documented as of this encounter
--- OUTSIDE RECORDS SUMMARY | 2024-08-22 10:19 | XMS_ITS | Referral Summary ---
Author Organization [facility] Medical Office Building B Address [address] [place] [address] Care Team Providers Care Title Insurance Examiner Name Role Phone Luann Cox MD Primary Care Provider [phone] Encounters Date Type Department Care Team Description 07/14/2024 11:15 AM AUDITING SPECIALIST Office Visit [facility] Orthopedic and Sports Medicine [address] [place] [phone] Ev Campos PA Aftercare following surgery of the musculoskeletal system (Primary Dx) 07/01/2024 Telephone [facility] Orthopedics and Sports Medicine [address] [facility] [address] [place] [address] Ernst Drummond ATC 06/30/2024 7:45 AM AUDITING SPECIALIST - 06/30/2024 8:30 AM AUDITING SPECIALIST Surgery [facility] Operating Room [address] [place] [address] Blair Paris MD Left ring trigger finger release 06/30/2024 7:01 AM AUDITING SPECIALIST - 06/30/2024 8:39 AM AUDITING SPECIALIST Hospital Encounter [facility] Operating Room [address] [place] [address] Blair Paris MD Trigger ring finger of left hand (Primary Dx) Discharge Disposition: Discharge to home or self care from Last 3 Months Allergies Active Allergy [...] Vomiting, Penicillins Other (See comments) Reaction: Unknown, [place] Sulfa (Sulfonamide Antibiotics) Other (See comments) Reaction: [...] in the evening 0 0 5 Active xwrasuvy-ciqk-y in-folic acid (multivitamin-i fgh-iqsldwnr-ns lic acid) 3,500-18-0.4 unit-mg-mg tablet,chewable 0 0 [...] pain without sciatica 07/04/2022 Lumbar radiculopathy 07/04/2022 correction current use of 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 3 Insomnia secondary [...] on file Legal Sex Female 6:41 PM AUDITING SPECIALIST Gender Identity Not on file Sexual Orientation Not on file Last Filed Vital Signs Vital Sign Reading Time Taken Comments Blood Pressure 132/93 07/14/2024 11:06 AM AUDITING SPECIALIST Pulse 99 07/14/2024 11:06 AM AUDITING SPECIALIST Temperature 36.9 C (98.4 F) 06/30/2024 8:25 AM AUDITING SPECIALIST Respiratory Rate 0 06/30/2024 8:30 AM AUDITING SPECIALIST Oxygen Saturation 99% 06/30/2024 8:25 AM AUDITING SPECIALIST Inhaled Oxygen Concentration - - Weight 75.8 kg (167 lb) 07/14/2024 11:06 AM AUDITING SPECIALIST Height 162.6 cm (5' 4 ) 07/14/2024 11:06 AM AUDITING SPECIALIST Body Mass Index 28.67 07/14/2024 11:06 AM AUDITING SPECIALIST Plan of Treatment Not on file Procedures Procedure Name Priority Date/Time Associated Diagnosis Comments RELEASE TRIGGER FINGER 06/30/2024 7:35 AM AUDITING SPECIALIST Trigger ring finger of left hand DEXA [...] PM CDT DEXA Bone Density Axial Acc#: [id number] DATE OF EXAM: Apr 23 2017 EXAM: [...] on: Apr 23 2017 3:34P Transcribed by: [facility] On: Apr 23 2017 4:05P Approved Electronically by: DIANELYS SOLORZANO M.D. on: Apr 23 2017 4:05P Ordering DR: JAY WYLIE Attending DR: JAY WYLIE Attending: JAY WYLIE Requesting: JAY WYLIE Requesting Attending Fax: -- Attending ID: [id number] Requesting ID: [id number] Report To 1 ID: [id number] Report To 1 Name: JAY WYLIE Report To 1 FAX: -- [facility] Order #: [id number] Procedure Note Miscellaneous, Not In File - 04/23/2017 DEXA Bone Density Axial Acc#: [id number] DATE OF EXAM: Apr 23 2017 EXAM: [...] on: Apr 23 2017 3:34P Transcribed by: [facility] On: Apr 23 2017 4:05P Approved Electronically by: DIANELYS SOLORZANO M.D. on: Apr 23 2017 4:05P Ordering DR: JAY WYLIE Attending DR: JAY WYLIE Attending: JAY WYLIE Requesting: JAY WYLIE Requesting Attending Fax: -- Attending ID: [id number] Requesting ID: [id number] Report To 1 ID: [id number] Report To 1 Name: JAY WYLIE Report To 1 FAX: -- [employer] Order #: [id number] Jay Wylie MD IMG DXA PROCEDURES Final R esult from Last 3 Months or Most Recently Relevant to Health Maintenance Insurance [facility] [address] [facility] Care Teams Title Insurance Examiner Relationship Specialty Start Date End Date Luann Cox MD PCP - General 05/08/09
--- OUTSIDE RECORDS SUMMARY | 2024-08-22 10:19 | XMS_ITS | Encounter Summary ---
Author Organization [facility] Address [address] [place] [address] Phone Care Team Providers Care Cardiovascular Disease Specialist Name Role Phone Luann Cox MD Primary Care Provider + [phone] Josiane Pacheco MD Primary Care Provider + [phone] Blair Paris MD Unavailable +[phone] Jose A Espinosa MD Unavailable [phone] Darwin Marti MD Primary Care Provider +[phone] Hao Silvestre MD Unavailable +[phone] Carlos Dailey MD Unavailable Saida Mckeon APRN, LAWN MOWER REPAIRER Unavailable Jessenia Ward APRN, SHAREPOINT NET DEVELOPER Unavailable + [phone] Hao Silvestre MD Unavailable +[phone] Dominic Wang MD Unavailable [phone] Butch Muñiz MD Unavailable +[phone] Reason for Visit * Reason Comments Medication Refill Encounter Details Date Type Department Care Team (Late Contact Info) Description 04/24/2020 Refill [facility] Primary Care - [place] [address] [place] [address] Luann Cox MD [address] [place] [address] Medication Refill Social History Tobacco [...] Upcoming Encounters Date Type Department Care Team ([facility] Contact Info) Description 08/25/2024 2:15 PM ASP DEVELOPER Office Visit [facility] - Primary Care - [place] [address] [place] [address] Darwin Marti MD [address] [place] [address] 02/20/2025 9:30 AM CDT Office Visit [facility] - Neurology - [place] [address] [place] [address] Jessenia Wadr, FURNACE BRAZER, SHAREPOINT NET DEVELOPER [address] [place] [address] documented as of this encounter Visit Diagnoses Diagnosis Hypothyroidism (acquired) Unspecified hypothyroidism Eczema, unspecified type documented in this encounter Additional Health Concerns Infection Onset Date Last Indicated Resolved Time ESBL 08/16/2018 08/16/2018 09/28/2023 9:03 AM CDT COVID - 19 03/09/2023 03/09/2023 03/19/2023 12:1 6 AM CDT Respiratory Rule-Out 03/09/2023 03/09/2023 023 2:09 AM CDT COVID - 19 05/07/2023 05/07/2023 05/07/2023 9:50 AM ASP DEVELOPER COVID - 19 Confirmed 05/07/2023 05/07/2023 023 12:16 AM ASP DEVELOPER C. difficile Rule-Out 09/24/2023 09/24/20232023 3:41 PM CDT COVID - 19 09/24/2023 09/24/2023 09/24/2023 11:3 2 AM CDT C. difficile Rule-Out 09/27/2023 09/27/20232023 2:13 PM CDT COVID - 19 02/23/2024 02/23/2024 02/23/2024 11:2 8 AM CDT Respiratory Rule-Out 02/23/2024 02/23/2024 024 11:30 AM CDT Assessment Noted Time PHQ-9 Depression Total Score: 2 01/16/20 20 10:00 AM ASP DEVELOPER documented as of this encounter Care Teams Cardiovascular Disease Specialist Relationship Specialty Start Date End Date Luann Cox MD PCP - General Family Medicine 04/15/15 11/02/22 Josiane Pacheco MD [address] [place] [address] PCP - General Family Medicine 11/20/22 07/30/23 Darwin Marti MD [address] [place] [address] PCP - General Internal Medicine 07/31/23 Blair Paris MD 4 [facility] [address] [place] [address] Consulting Physician Orthopaedic Sports Medicine 07/31/23 Jose A Espinosa MD [address] [address] Consulting Physician Pain Medicine-Pain Management 07/31/23 02/08/24 Hao Silvestre MD [address] [address] Consulting Physician Neurological Surgery 07/31/23 Carlos Dailey MD [address] [address] Consulting Physician Colon and Rectal Surgery 10/26/23 Saida Mckeon APRN, LAWN MOWER REPAIRER [address] [place] [address] Nurse Practitioner Gastroenterology 10/26/23 Jessenia Ward APRN, SHAREPOINT NET DEVELOPER [address] [place] [address] Nurse Practitioner Advanced Practice Nurse 11/17/23 Hao Silvestre MD [address] [address] Consulting Physician Neurological Surgery 02/09/2401/27 Dominic Wang MD [place], [place] Consulting Physician Pain Medicine-Pain Management 02/09/24 Butch Muñiz MD [address] [place] [address] Consulting Physician Neurology 02/23/24 documented as of this encounter
--- OUTSIDE RECORDS SUMMARY | 2024-08-22 10:19 | XMS_ITS | Encounter Summary ---
Author Organization [facility] Address [address] [place] [address] Phone Care Team Providers Care Mixing Machine Feeder Name Role Phone Luann Cox MD Primary Care Provider + [phone] Josiane Pacheco MD Primary Care Provider + [phone] Blair Paris MD Unavailable +[phone] Jose A Espinosa MD Unavailable [phone] Darwin Marti MD Primary Care Provider [phone] Hao Silvestre MD Unavailable [phone] Carlos Dailey MD Unavailable Saida Mckeon APRN, TEACHER'S ASSISTANT Unavailable Jessenia Ward APRN, SLIP DUMPER Unavailable [phone] Hao Silvestre MD Unavailable Dominic Wang MD Unavailable [phone] Butch Muñiz MD Unavailable +[phone] Reason for Visit * Reason Comments Medication Refill Encounter Details Date Type Department Care Team (Late Contact Info) Description 10/27/2020 [facility]ill [facility] Primary Care - [place] [address] [place] [address] Luann Cox MD [address] [place] [address] Medication Refill Social History Tobacco [...] (Late Contact Info) Description 08/25/2024 2:15 PM GOVERNMENT MINISTER Office Visit [facility] Primary Care - [place] [address] [place] [phone] Darwin Marti MD [address] [place] [address] 02/20/2025 9:30 AM CDT Office Visit [facility] - Neurology - [place] [address] [place] [address] Jessenia Ward, TRIMMING CUTTER MACHINE, SLIP DUMPER [address] [place] [address] documented as of this encounter Visit Diagnoses [...] - 19 05/07/2023 05/07/2023 05/07/2023 9:50 AM GOVERNMENT MINISTER COVID - 19 Confirmed 05/07/2023 05/07/2023 023 12:16 AM GOVERNMENT MINISTER C. difficile Rule-Out 09/24/2023 09/24/20232023 3:41 PM CDT COVID - 19 09/24/2023 09/24/2023 09/24/2023 11:3 2 AM CDT C. difficile Rule-Out 09/27/2023 09/27/20232023 2:13 PM CDT COVID - 19 02/23/2024 02/23/2024 02/23/2024 11:2 8 AM CDT Respiratory Rule-Out 02/23/2024 02/23/2024 024 11:30 AM CDT Assessment Noted Time PHQ-9 Depression Total Score: 2 07/14/19 20 10:00 AM GOVERNMENT MINISTER documented as of this encounter Care Teams Mixing Machine Feeder Relationship Specialty Start Date End Date Luann Cox MD PCP - General Family Medicine 04/15/15 11/02/22 Josiane Pacheco MD [address] [place] [address] PCP - General Family Medicine 11/20/22 07/30/23 Darwin Marti MD [address] [place] [address] PCP - General Internal Medicine 07/31/23 Blair Paris MD 4 [facility] [address] [place] [address] Consulting Physician Orthopaedic Sports Medicine 07/31/23 Jose A Espinosa MD 2 [facility] [address] [place] [address] Consulting Physician Pain Medicine-Pain Management 07/31/23 02/08/24 Hao Silvestre MD [address] [address] Consulting Physician Neurological Surgery 07/31/23 Carlos Dailey MD #[address] [address] Consulting Physician Colon and Rectal Surgery 10/26/23 Saida Mckeon APRN, TEACHER'S ASSISTANT [address] [place] [address] Nurse Practitioner Gastroenterology 10/26/23 Jessenia Ward APRN, SLIP DUMPER [address] [place] [address] Nurse Practitioner Advanced Practice Nurse 11/17/23 Hao Silvestre MD [address] [address] Consulting Physician Neurological Surgery 02/09/2401/27 Dominic Wang MD [place], [place] Consulting Physician Pain Medicine-Pain Management 02/09/24 Butch Muñiz MD [address] [place] [address] Consulting Physician Neurology 02/23/24 documented as of this encounter
--- OUTSIDE RECORDS SUMMARY | 2024-08-22 10:19 | XMS_ITS | Encounter Summary ---
Author Organization [facility] Address [address] [place] [address] Phone Care Team Providers Care Smoked Meat Preparer Name Role Phone Josiane Pacheco MD Primary Care Provider [phone] Blair Paris MD Unavailable [phone] Jose A Espinosa MD Unavailable [phone] Darwin Marti MD Primary Care Provider +[phone] Hao Silvestre MD Unavailable +[phone] Carlos Dailey MD Unavailable Saida Mckeon APRN, BUDGET REPORT CLERK Unavailable Jessenia Ward APRN, [facility] Unavailable + [phone] Hao Silvestre MD Unavailable [phone] Dominic Wang MD Unavailable [phone] Butch Muñiz MD Unavailable [phone] Reason for Visit * Reason Comments Medication Refill Encounter Details Date Type Department Care Team ([facility] Contact Info) Description 03/31/2023 Refill [facility] [address] [place] [address] Josiane Pacheco MD [address] [place] [address] Medication Refill Social History Tobacco Use Types [...] Upcoming Encounters Date Type Department Care Team ([facility] Contact Info) Description 08/25/2024 2:15 PM SEMICONDUCTOR DEVELOPMENT TECHNICIAN Office [facility] [address] [place] [address] Darwin Marti MD [address] [place] [address] 02/20/2025 9:30 AM CDT Office Visit [facility] - Neurology - [place] [address] [place] [address] Jessenia Ward, COMMUNICATION ANALYST, STAFF NURSE MIDWIFE [address] [place] [address] documented as of this encounter Visit Diagnoses Diagnosis Spinal stenosis, lumbar region, with neurogenic claudication documented in this encounter Additional Health Concerns Infection Onset Date Last Indicated Resolved Time ESBL 08/16/2018 08/16/2018 09/28/2023 9:03 AM CDT COVID - 19 05/07/2023 05/07/2023 05/07/2023 9:50 AM SEMICONDUCTOR DEVELOPMENT TECHNICIAN COVID - 19 Confirmed 05/07/2023 05/07/2023 023 12:16 AM SEMICONDUCTOR DEVELOPMENT TECHNICIAN C. difficile Rule-Out 09/24/2023 09/24/20232023 3:41 PM CDT COVID - 19 09/24/2023 09/24/2023 09/24/2023 11:3 2 AM CDT C. difficile Rule-Out 09/27/2023 09/27/20232023 2:13 PM CDT COVID - 19 02/23/2024 02/23/2024 02/23/2024 11:2 8 AM CDT Respiratory Rule-Out 02/23/2024 02/23/2024 024 11:30 AM CDT Assessment Noted Time PHQ-9 Depression Total Score: 2 07/14/19 20 10:00 AM SEMICONDUCTOR DEVELOPMENT TECHNICIAN documented as of this encounter Care Teams Smoked Meat Preparer Relationship Specialty Start Date End Date Josiane Pacheco MD [address] [place] [address] PCP - General Family Medicine 11/20/22 07/30/23 Darwin Marti MD [address] [place] [address] PCP - General Internal Medicine 07/31/23 Blair Paris MD 4 [facility] [address] [place] [address] Consulting Physician Orthopaedic Sports Medicine 07/31/23 Jose A Espinosa MD [address] [address] Consulting Physician Pain Medicine-Pain Management 07/31/23 02/08/24 Hao Silvestre MD [address] [address] Consulting Physician Neurological Surgery 07/31/23 Carlos Dailey MD [address] [address] Consulting Physician Colon and Rectal Surgery 10/26/23 Saida Mckeon APRN, BUDGET REPORT CLERK [address] [place] [address] Nurse Practitioner Gastroenterology 10/26/23 Jessenia Ward APRN, STAFF NURSE MIDWIFE [address] [place] [address] Nurse Practitioner Advanced Practice Nurse 11/17/23 Hao Silvestre MD [address] [address] Consulting Physician Neurological Surgery 02/09/2401/27 Dominic Wang MD [place], [place] Consulting Physician Pain Medicine-Pain Management 02/09/24 Butch Muñiz MD #[address] [place] [address] Consulting Physician Neurology 02/23/24 documented as of this encounter
--- OUTSIDE RECORDS SUMMARY | 2024-08-22 10:19 | XMS_ITS | Encounter Summary ---
Author Organization [facility] Address [address] [place] [address] Phone Care Team Providers Care Bilingual Trainer Name Role Phone Blair Paris MD Unavailable [phone] Jose A Espinosa MD Unavailable [phone] Darwin Marti MD Primary Care Provider [phone] Hao Silvestre MD Unavailable [phone] Carlos Dailey MD Unavailable Saida Mckeon APRN, ASSISTANT PROFESSOR OF ENGLISH Unavailable Jessenia Ward APRN, SPLUNK CONSULTANT Unavailable + [phone] Hao Silvestre MD Unavailable [phone] Dominic Wang MD Unavailable [phone] Butch Muñiz MD Unavailable Reason for Visit * Reason Comments Medication Refill Encounter Details Date Type Department Care Team (Late st Contact Info) Description 11/13/2023 Refill [facility] - Primary Care - [place] [address] [place] [address] Darwin Marti MD [address] [address] Medication Refill Social History Tobacco Use Types Packs/Day Years Used Date Smoking Tobacco: Former Cigarettes 2 41.8 1 964 - 04/09/2005 Smokeless Tobacco: Never Alcohol Use Standard Drinks/Week Comments No 0 (1 standard drink = 0.6 oz pur e alcohol) [facility] Utilities Answer Date Recorded In the past 12 months has [employer], gas, oil, or water [email or web address] threatened to shut off services in your [...] often do you attend chur ch or scientologist services? Never 09/26/2023 Do you belong to any clubs o r organizations such as restorationist groups, unions, fraternal or athletic groups, or [...] Answer Date Recorded PHQ-2 Score 2 07/14/2019 [facility] of Occupat ional Health - Occupational Stress [...] place to sleep or slept in a penitentiary (including now)? No 09/26/2023 Sexually Active Control [...] AM CDT Medication(s) refilled and signed per [facility] Chronic Medication Refill Standing Order for Pediatricand [...] Dept 10/14/23 Office Visit Darwin Marti MD [facility] 10/05/23 Office Visit Cassie Lara APRN, MARIO [facility] 07/31/23 Office Visit Darwin Marti MD [facility] 01/29/23 Office Visit Josiane Pacheco MD [facility] Showing recent visits within past 365 days and meeting all other requirements Future Appointments Date Type Provider Dept 02/09/24 Appointment Darwin Marti MD [facility] Showing future appointments within next 90 days and meeting all other requirements Passed - Normal TSH in past 12 months TSH Date Value Ref Range Status 07/31/2023 1.805 0.300 - 5.000 mIU/L Final documented in this encounter Plan of Treatment Upcoming Encounters Date Type Department Care Team (Late st Contact Info) Description 08/25/2024 2:15 PM CLINICAL TECH Office Visit [facility] - Primary Care - [place] [address] [place] [address] Dariwn Marti MD [address] [place] [address] 02/20/2025 9:30 AM CDT Office Visit [facility] - Neurology - [place] [address] [place] [address] Jessenia Ward, BASIN OPERATOR, SPLUNK CONSULTANT [address] [facility] [place] [address] documented as of this encounter Visit Diagnoses Diagnosis Hypothyroidism (acquired) Unspecified hypothyroidism documented in this encounter Additional Health Concerns Infection Onset Date Last Indicated Resolved Time COVID - 19 02/23/2024 02/23/2024 02/23/2024 11:2 8 AM CDT Respiratory Rule-Out 02/23/2024 02/23/2024 024 11:30 AM CDT Assessment Noted Time PHQ-9 Depression Total Score: 0 07/31/19 12:53 PM CLINICAL TECH documented as of this encounter Care Teams Bilingual Trainer Relationship Specialty Start Date End Date Darwin Marti MD [address] [place] [address] PCP - General Internal Medicine 07/31/23 Blair Paris MD 4 [facility] [address] [place] [address] Consulting Physician Orthopaedic Sports Medicine 07/31/23 Jose A Espinosa MD 2 [facility] [address] [place] [address] Consulting Physician Pain Medicine-Pain Management 07/31/23 02/08/24 Hao Silvestre MD [address] [address] Consulting Physician Neurological Surgery 07/31/23 Carlos Dailey MD #2 [facility] [address] [place] [address] Consulting Physician Colon and Rectal Surgery 10/26/23 Saida Mckeon APRN, [facility] [address] [place] [address] Nurse Practitioner Gastroenterology 10/26/23 Jessenia Ward APRN, [facility] [address] [place] [address] Nurse Practitioner Advanced Practice Nurse 11/17/23 Hao Silvestre MD [address] [address] Consulting Physician Neurological Surgery 02/09/2401/27 Dominic Wang MD [place], [place] Consulting Physician Pain Medicine-Pain Management 02/09/24 Butch Muñiz MD #[address] [place] [address] Consulting Physician Neurology 02/23/24 documented as of this encounter
--- OUTSIDE RECORDS SUMMARY | 2024-08-22 10:20 | XMS_ITS | Encounter Summary ---
Author Organization [facility] Address [address] [place] [address] Phone Care Team Providers Care Final Inspector Motorcyles Name Role Phone Blair Paris MD Unavailable +[phone] Jose A Espinosa MD Unavailable [phone] Darwin Marti MD Primary Care Provider +[phone] Hao Silvestre MD Unavailable [phone] Carlos Dailey MD Unavailable Saida Mckeon APRN, INSTRUCTIONAL SUPPORT TECHNICIAN Unavailable Jessenia Ward APRN, ENGINEERING PROGRAM ANALYST Unavailable + [phone] Hao Silvestre MD Unavailable [phone] Dominic Wang MD Unavailable [phone] Butch Muñiz MD Unavailable [phone] Reason for Visit * Reason Comments Medication Refill Encounter Details Date Type Department Care Team ([facility] Contact Info) Description 08/18/2023 [facility] [place] [address] [place] [address] Ranjeet Boston PAC [address] [place] [address] Medication Refill Social History Tobacco [...] - 08/18/2023 1:20 PM CST Duplicate Request SOFTWARE ARCHITECT documented in this encounter Plan of Treatment Upcoming Encounters Date Type Department Care Team ([facility] Contact Info) Description 08/25/2024 2:15 PM JAVA SOFTWARE ARCHITECT Office Visit [facility] Primary Care - [place] [address] [place] [address] Darwin Marti MD [address] [place] [address] 02/20/2025 9:30 AM CDT Office Visit [facility] Neurology [facility] [address]2 [facility] [address] Jessenia Ward, ANDROID DEVELOPER, ENGINEERING PROGRAM ANALYST [address] [place] [address] documented as of this encounter Visit Diagnoses [...] Depression Total Score: 0 07/31/19 12:53 PM JAVA SOFTWARE ARCHITECT documented as of this encounter Care Teams Final Inspector Motorcyles Relationship Specialty Start Date End Date Darwin Marti MD [address] [place] [address] PCP - General Internal Medicine 07/31/23 Blair Paris MD 4 [facility] , [address] [place] [address] Consulting Physician Orthopaedic Sports Medicine 07/31/23 Jose A Espinosa MD 2 [facility] [address] [place] [address] Consulting Physician Pain Medicine-Pain Management 07/31/23 02/08/24 Hao Silvestre MD [address] [address] Consulting Physician Neurological Surgery 07/31/23 Carlos Dailey MD #[address] [address] Consulting Physician Colon and Rectal Surgery 10/26/23 Saida Mckeon APRN, INSTRUCTIONAL SUPPORT TECHNICIAN [address] [place] [address] Nurse Practitioner Gastroenterology 10/26/23 Jessenia Ward APRN, ENGINEERING PROGRAM ANALYST [address] [place] [address] Nurse Practitioner Advanced Practice Nurse 11/17/23 Hao Silvestre MD [address] [address] Consulting Physician Neurological Surgery 02/09/2401/27 Dominic Wang MD [place], [place] Consulting Physician Pain Medicine-Pain Management 02/09/24 Butch Muñiz MD #[address] [place] [address] Consulting Physician Neurology 02/23/24 documented as of this encounter
--- OUTSIDE RECORDS SUMMARY | 2024-08-22 10:20 | XMS_ITS | Encounter Summary ---
Author Organization [facility] Address [address] [place] [address] Phone Care Team Providers Care Electric Tool Repairer Name Role Phone Luann Cox MD Primary Care Provider + [phone] Josiane Pacheco MD Primary Care Provider + [phone] Blair Paris MD Unavailable [phone] Jose A Espinosa MD Unavailable +[phone] Darwin Marti MD Primary Care Provider +[phone] Hao Silvestre MD Unavailable +[phone] Carlos Dailey MD Unavailable Saida Mckeon APRN, STUBBER Unavailable Jessenia Ward APRN, CITY CARRIER Unavailable + [phone] Hao Silvestre MD Unavailable +[phone] Dominic Wang MD Unavailable +[phone] Butch Muñiz MD Unavailable +[phone] Reason for Visit * Reason Comments Medication Refill Encounter Details Date Type Department Care Team (Late st Contact Info) Description 04/29/2022 [facility] [place] [address] [place] [address] Luann Cox MD [address] [place] [address] Medication Refill Social History Tobacco [...] Dept 12/16/21 Office Visit Luann Cox MD [facility] [employer] [facility] 06/27/21 Office Visit Luann Cox MD [facility] [employer] Showing recent visits within past 365 days and meeting all other requirements Future Appointments Date Type Provider Dept 05/23/22 Appointment Lab, [place] [facility] [employer] [facility] 05/29/22 Appointment Luann Cox MD [facility] [employer] Showing future appointments within next 90 days [...] Dept 12/16/21 Office Visit Luann Cox MD [facility] [employer] [facility] 06/27/21 Office Visit Luann Cox MD [facility] [employer] [facility] Showing recent visits within past 365 days and meeting all other requirements Future Appointments Date Type Provider Dept 05/23/22 Appointment Lab, [place] [facility] [employer] [facility] 05/29/22 Appointment Luann Cox MD [facility] [employer] Showing future appointments within next 90 days [...] Dept 12/16/21 Office Visit Luann Cox MD [facility] [employer] 06/27/21 Office Visit Luann Cox MD [facility] [employer] Showing recent visits within past 365 days and meeting all other requirements Future Appointments Date Type Provider Dept 05/23/22 Appointment Lab, [place] [facility] [employer] 05/29/22 Appointment Luann Cox MD [facility] [employer] Showing future appointments within next 90 days [...] Dept 12/16/21 Office Visit Luann Cox MD [facility] [employer] 06/27/21 Office Visit Luann Cox MD [facility] [employer] Showing recent visits within past 365 days and meeting all other requirements Future Appointments Date Type Provider Dept 05/23/22 Appointment Lab, [place] [employer] 05/29/22 Appointment Luann Cox MD [facility] [address] Showing future appointments within next 90 days and meeting all other requirements documented in this encounter Plan of Treatment Upcoming Encounters Date Type Department Care Team (Late st Contact Info) Description 08/25/2024 2:15 PM COIL MACHINE OPERATOR [facility] [place] [address] [place] [address] Darwin Marti MD [address] [place] [address] 02/20/2025 9:30 AM CDT Office Visit [facility] Neurology - [place] [address] [place] [address] Jessenia Ward APRN, CITY CARRIER [address] [place] [address] documented as of this encounter Visit Diagnoses [...] - 19 05/07/2023 05/07/2023 05/07/2023 9:50 AM COIL MACHINE OPERATOR COVID - 19 Confirmed 05/07/2023 05/07/2023 023 12:16 AM COIL MACHINE OPERATOR C. difficile Rule-Out 09/24/2023 09/24/20232023 3:41 PM CDT COVID - 19 09/24/2023 09/24/2023 09/24/2023 11:3 2 AM CDT C. difficile Rule-Out 09/27/2023 09/27/20232023 2:13 PM CDT COVID - 19 02/23/2024 02/23/2024 02/23/2024 11:2 8 AM CDT Respiratory Rule-Out 02/23/2024 02/23/2024 024 11:30 AM CDT Assessment Noted Time PHQ-9 Depression Total Score: 2 07/14/19 20 10:00 AM COIL MACHINE OPERATOR documented as of this encounter Care Teams Electric Tool Repairer Relationship Specialty Start Date End Date Luann Cox MD PCP - General Family Medicine 04/15/15 11/02/22 Josiane Pacheco MD [address] [place] [address] PCP - General Family Medicine 11/20/22 07/30/23 Darwin Marti MD [address] [place] [address] PCP - General Internal Medicine 07/31/23 Blair Paris MD 4 [facility] [address] [place] [address] Consulting Physician Orthopaedic Sports Medicine 07/31/23 Jose A Espinosa MD 2 [facility] [address] [place] [address] Consulting Physician Pain Medicine-Pain Management 07/31/23 02/08/24 Hao Silvestre MD [address] [address] Consulting Physician Neurological Surgery 07/31/23 Carlos Dailey MD #2 [facility] [address] [place] [address] Consulting Physician Colon and Rectal Surgery 10/26/23 Saida Mckeon APRN, [facility] [address] [place] [address] Nurse Practitioner Gastroenterology 10/26/23 Jessenia Ward APRN, [facility] [address] [place] [address] Nurse Practitioner Advanced Practice Nurse 11/17/23 Hao Silvestre MD [address] [address] Consulting Physician Neurological Surgery 02/09/2401/27 Dominic Wang MD [place], [place] Consulting Physician Pain Medicine-Pain Management 02/09/24 Butch Muñiz MD [address] [place] [address] Consulting Physician Neurology 02/23/24 documented as of this encounter
--- OUTSIDE RECORDS SUMMARY | 2024-08-22 10:20 | XMS_ITS | Encounter Summary ---
Author Organization [facility] Address [address] [place] [address] Phone Care Team Providers Care Senior Care Manager Name Role Phone Luann Cox MD Primary Care Provider + [phone] Josiane Pacheco MD Primary Care Provider + [phone] Blair Paris MD Unavailable [phone] Jose A Espinosa MD Unavailable +[phone] Darwin Marti MD Primary Care Provider +[phone] Hao Silvestre MD Unavailable +[phone] Carlos Dailey MD Unavailable Saida Mckeon APRN, CODING SPEC Unavailable Jessenia Ward APRN, PRACTICE DIRECTOR Unavailable + [phone] Hao Silvestre MD Unavailable +[phone] Dominic Wang MD Unavailable [phone] Butch Muñiz MD Unavailable +[phone] Reason for Visit * Reason Comments Medication Refill Encounter Details Date Type Department Care Team (Late st Contact Info) Description 01/21/2020 [facility]ill [facility] [address] [place] [id number] Luann Cox MD [address] [place] [address] Medication Refill Social History Tobacco [...] - FAMILY PRACTICE - Luann Torres MD 1 year ago Essential hypertension [facility] [place] - Luann Torres MD 1 year ago Syncope, unspecified syncope type [facility] - Luann Torres MD 1 year ago Sore throat [facility] - Luann Torres MD 1 year ago Essential hypertension [facility] - Luann Torres MD Upcoming Appointments Future Appointments Tomorrow SAHCUSTECH2; SAHCUS1 [facility] Ultrasound, [facility] In 1 week SAHCMAM1 [facility] Mammography, [facility] In 1 week SAHCUSTECH2; SAHCUS1 [facility] In 3 months SAHCMR1 [facility] MRI, [facility] In 5 months Lab, [place] [facility] [address] In 5 months Luann Cox MD [facility] [address] CUFF KNITTER - Recent and Past Visits Recent Visits Date Type Provider Dept 01/12/20 Office Visit Luann Cox MD [facility] Road 07/14/19 [facility] Office Visit Luann Cox MD [facility] Showing recent visits within past 460 [...] Outpatient Visits 6 months ago Essential hypertension [facility] Luann Torres MD 1 year ago Essential hypertension [facility] - Luann Torres MD 1 year ago Syncope, unspecified syncope type [facility] - Luann Torres MD 1 year ago Sore throat [facility] - Luann Torres MD 1 year ago Essential hypertension [facility] - Luann Torres MD Upcoming Appointments Future Appointments Tomorrow SAHCUSTECH2; SAHCUS1 [facility], [facility] In 1 week SAHAM1 [facility], [facility] In 1 week SAHCUSTECH2; SAHCUS1 [facility] Ultrasound, [facility] In 3 months SAHCMR1 [facility] MRI, [facility] In 5 months Lab, [place] [facility] [address] In 5 months Luann Cox MD [facility] [address] CUFF KNITTER - Recent and Past Visits Recent Visits Date Type Provider Dept 01/12/20 Office Visit [facility] MD [facility] [address] 07/14/19 Office Visit Luann Cox MD [facility] [place] 01/11/19 Office Visit Luann Cox MD [facility] [place] Showing recent visits within past [...] st Contact Info) Description 08/25/2024 2:15 PM SHADING PAINTER Office Visit [facility] - [place] [address] [place] [address] Darwin Marti MD [address] [place] [address] 02/20/2025 9:30 AM CDT [facility] [address] [place] [address] Jessenia Ward, MICROBIOLOGY SUPERVISOR, PRACTICE DIRECTOR [address] [place] [address] documented as of this encounter Visit Diagnoses Diagnosis Hyperlipidemia, unspecified hyperlipidemia type documented in this encounter Additional Health Concerns Infection Onset Date Last Indicated Resolved Time ESBL 08/16/2018 08/16/2018 09/28/2023 9:03 AM CDT COVID - 19 03/09/2023 03/09/2023 03/19/2023 12:1 6 AM CDT Respiratory Rule-Out 03/09/2023 03/09/2023 023 2:09 AM CDT COVID - 19 05/07/2023 05/07/2023 05/07/2023 9:50 AM SHADING PAINTER COVID - 19 Confirmed 05/07/2023 05/07/2023 023 12:16 AM SHADING PAINTER C. difficile Rule-Out 09/24/2023 09/24/20232023 3:41 PM CDT COVID - 19 09/24/2023 09/24/2023 09/24/2023 11:3 2 AM CDT C. difficile Rule-Out 09/27/2023 09/27/20232023 2:13 PM CDT COVID - 19 02/23/2024 02/23/2024 02/23/2024 11:2 8 AM CDT Respiratory Rule-Out 02/23/2024 02/23/2024 024 11:30 AM CDT Assessment Noted Time PHQ-9 Depression Total Score: 2 07/14/19 20 10:00 AM SHADING PAINTER documented as of this encounter Care Teams Senior Care Manager Relationship Specialty Start Date End Date Luann Cox MD PCP - General Family Medicine 04/15/15 11/02/22 Josiane Pacheco MD [address] [place] [address] PCP - General Family Medicine 11/20/22 07/30/23 Darwin Marti MD [address] [place] [address] PCP - General Internal Medicine 07/31/23 Blair Paris MD 4 [facility] [address] [place] [address] Consulting Physician Orthopaedic Sports Medicine 07/31/23 Jose A Espinosa MD 2 [facility] [address] [address] Consulting Physician Pain Medicine-Pain Management 07/31/23 02/08/24 Hao Silvestre MD [address] [address] Consulting Physician Neurological Surgery 07/31/23 Carlos Dailey MD [address] [address] [address] Consulting Physician Colon and Rectal Surgery 10/26/23 Saida Mckeon APRN, CODING SPEC [address] [place] [address] Nurse Practitioner Gastroenterology 10/26/23 Jessenia Ward APRN, PRACTICE DIRECTOR [address] [place] [address] Nurse Practitioner Advanced Practice Nurse 11/17/23 Hao Silvestre MD [address] [place] [address] Consulting Physician Neurological Surgery 02/09/2401/27 Dominic Wang MD [place], [place] Consulting Physician Pain Medicine-Pain Management 02/09/24 Butch Muñiz MD #[address] [place] [address] Consulting Physician Neurology 02/23/24 documented as of this encounter
--- OUTSIDE RECORDS SUMMARY | 2024-08-22 10:20 | XMS_ITS | Encounter Summary ---
Author Organization [facility] Address [address] [place] [address] Care Team Providers Care Care Professionals Name Role Phone Luann Cox MD Primary Care Provider [phone] Ana Hassan Unavailable [phone] Darwin Marti MD Primary Care Provider [phone] Encounter Details Date Type Department Care Team (Late st Contact Info) Description 10/19/2021 Ophth Exam [facility] [address] [place] [phone] Brielle Howe MD [address] [place] [address] [place] [address] Social History Tobacco Use Types [...] on filedocumented in this encounter Care Teams Care Professionals Relationship Specialty Start Date End Date Luann Cox MD PCP - General Family Medicine 05/06/21 10/26/23 Darwin Marti MD [address] [place] [address] PCP - General Internal Medicine 10/27/23 Ana Hassan Care Coordination Specialist Care Management 10/27/23 10/27/23 documented as of this encounter
--- OUTSIDE RECORDS SUMMARY | 2024-08-22 10:20 | XMS_ITS | Encounter Summary ---
Author Organization [facility] Address [address] [place] [address] Phone Care Team Providers Care Playroom Attendant Name Role Phone Luann Cox MD Primary Care Provider + [phone] Josiane Pacheco MD Primary Care Provider + [phone] Blair Paris MD Unavailable [phone] Jose A Espinosa MD Unavailable [phone] Darwin Marti MD Primary Care Provider [phone] Hao Silvestre MD Unavailable [phone] Carlos Dailey MD Unavailable Saida Mckeon APRN, CONVERTING TECHNICIAN Unavailable Jessenia Ward APRN, DISTRICT AGENT Unavailable +- [phone] Hao Silvestre MD Unavailable +[phone] Dominic Wang MD Unavailable [phone] Butch Muñiz MD Unavailable [phone] Reason for Visit * Reason Comments Medication Refill Encounter Details Date Type Department Care Team (Late st Contact Info) Description 09/[facility] [address] [place] [address] Luann Cox MD [address] [place] [address] Medication Refill Social History Tobacco [...] Outpatient Visits 2 months ago Essential hypertension [facility] - Luann Torres MD 8 months ago Essential hypertension [facility] - Luann Torres MD 1 year ago Syncope, unspecified syncope type [facility] - Luann Torres MD 1 year ago Sore throat [facility] - Luann Torres MD 1 year ago Essential hypertension [facility] - Luann Torres MD Upcoming Appointments Future Appointments In 3 months Lab, [facility], [facility] In 3 months Luann Cox MD [facility] [address] Passed - TSH in [...] Outpatient Visits 2 months ago Essential hypertension [facility] - Luann Torres MD 8 months ago Essential hypertension [facility] - Luann Torres MD 1 year ago Syncope, unspecified syncope type [facility] - Luann Torres MD 1 year ago Sore throat [facility] - Luann Torres MD 1 year ago Essential hypertension [facility] - Luann Torres MD Upcoming Appointments Future Appointments In 3 months Lab, [facility] In 3 months Luann Cox MD [facility] [address] documented in this encounter Plan of Treatment Upcoming Encounters Date Type Department Care Team (Late st Contact Info) Description 08/25/2024 2:15 PM MICROSOFT DEVELOPER Office Visit [facility] Primary Care - [place] [address] [place] [address] Darwin Marti MD [address] [place] [address] 02/20/2025 9:30 AM CDT Office Visit [facility] - Neurology [facility] [address] [place] [address] Jessenia Ward, WOOD CASKET MAKER, DISTRICT AGENT [address] [place] [address] documented as of this encounter Visit Diagnoses Diagnosis Hypothyroidism (acquired) Unspecified hypothyroidism documented in this encounter Additional Health Concerns Infection Onset Date Last Indicated Resolved Time ESBL 08/16/2018 08/16/2018 09/28/2023 9:03 AM CDT COVID - 19 03/09/2023 03/09/2023 03/19/2023 12:1 6 AM CDT Respiratory Rule-Out 03/09/2023 03/09/2023 023 2:09 AM CDT COVID - 19 05/07/2023 05/07/2023 05/07/2023 9:50 AM MICROSOFT DEVELOPER COVID - 19 Confirmed 05/07/2023 05/07/2023 023 12:16 AM MICROSOFT DEVELOPER C. difficile Rule-Out 09/24/2023 09/24/20232023 3:41 PM CDT COVID - 19 09/24/2023 09/24/2023 09/24/2023 11:3 2 AM CDT C. difficile Rule-Out 09/27/2023 09/27/20232023 2:13 PM CDT COVID - 19 02/23/2024 02/23/2024 02/23/2024 11:2 8 AM CDT Respiratory Rule-Out 02/23/2024 02/23/2024 024 11:30 AM CDT Assessment Noted Time PHQ-9 Depression Total Score: 2 07/14/19 20 10:00 AM MICROSOFT DEVELOPER documented as of this encounter Care Teams Playroom Attendant Relationship Specialty Start Date End Date Luann Cox MD PCP - General Family Medicine 04/15/15 11/02/22 Josiane Pacheco MD [address] [place] [address] PCP - General Family Medicine 11/20/22 07/30/23 Darwin Marti MD [address] [place] [address] PCP - General Internal Medicine 07/31/23 Blair Paris MD 4 [facility] [place] [facility] [address] [place] [address] Consulting Physician Orthopaedic Sports Medicine 07/31/23 Jose A Espinosa MD 2 [facility] [address] [address] Consulting Physician Pain Medicine-Pain Management 07/31/23 02/08/24 Hao Silvestre MD [address] [address] Consulting Physician Neurological Surgery 07/31/23 Carlos Dailey MD #[address] [address] Consulting Physician Colon and Rectal Surgery 10/26/23 Saida Mckeon APRN, CONVERTING TECHNICIAN #[address] [place] [address] Nurse Practitioner Gastroenterology 10/26/23 Jessenia Ward APRN, DISTRICT AGENT [address] [place] [address] Nurse Practitioner Advanced Practice Nurse 11/17/23 Hao Silvestre MD [address] [place] [address] Consulting Physician Neurological Surgery 02/09/2401/27 Dominic Wang MD [place], [place] Consulting Physician Pain Medicine-Pain Management 02/09/24 Butch Muñiz MD #[address] [place] [address] Consulting Physician Neurology 02/23/24 documented as of this encounter
--- OUTSIDE RECORDS SUMMARY | 2024-08-22 10:20 | XMS_ITS | Encounter Summary ---
Author Organization [facility] Address [address] [place] [address] Phone Care Team Providers Care Preschool Assistant Teacher Name Role Phone Luann Cox MD Primary Care Provider + [phone] Josiane Pacheco MD Primary Care Provider + [phone] Blair Paris MD Unavailable [phone] Jose A Espinosa MD Unavailable [phone] Darwin Marti MD Primary Care Provider +[phone] Hao Silvestre MD Unavailable [phone] Carlos Dailey MD Unavailable Saida Mckeon APRN, BREAD DISTRIBUTOR Unavailable Jessenia Ward APRN, MARKING CLERK Unavailable + [phone] Hao Silvestre MD Unavailable +[phone] Dominic Wang MD Unavailable [phone] Butch Muñiz MD Unavailable +[phone] Reason for Visit * Reason Comments Medication Refill Encounter Details Date Type Department Care Team (Late st Contact Info) Description 11/01/2021 Refill [facility] - [place] [address] [place] [address] Luann Cox MD [address] [place] [address] Medication Refill Social History Tobacco [...] Dept 06/27/21 Office Visit Luann Cox MD [facility] 03/07/21 Office Visit Luann Cox MD [facility] [employer] [facility] Showing recent visits within past [...] Dept 06/27/21 Office Visit Luann Cox MD [facility] [facility] 03/07/21 Office Visit Luann Cox MD [facility] [employer] [facility] Showing recent visits within past [...] Dept 06/27/21 Office Visit Luann Cox MD [facility] 03/07/21 Office Visit Luann Cox MD [facility] [facility] Showing recent visits within past [...] Dept 06/27/21 Office Visit Luann Cox MD [facility] [employer] 03/07/21 Office Visit Luann Cox MD [facility] [employer] Showing recent visits within past 365 days [...] Dept 06/27/21 Office Visit Luann Cox MD [facility] [address] 03/07/21 Office Visit Luann Cox MD [facility] Showing recent visits within past 365 [...] st Contact Info) Description 08/25/2024 2:15 PM SAND AND GRAVEL PLANT OPERATOR Office Visit [facility] - Primary Care - [place] [address] [place] [address] Darwin Marti MD [address] [place] [address] 02/20/2025 9:30 AM CDT Office Visit [facility] - Neurology - [place] [address] [place] [address] Jessenia Ward, CARPENTER REPAIR, MARKING CLERK [address] [place] [address] documented as of this encounter Visit Diagnoses [...] - 19 05/07/2023 05/07/2023 05/07/2023 9:50 AM SAND AND GRAVEL PLANT OPERATOR COVID - 19 Confirmed 05/07/2023 05/07/2023 023 12:16 AM SAND AND GRAVEL PLANT OPERATOR C. difficile Rule-Out 09/24/2023 09/24/20232023 3:41 PM CDT COVID - 19 09/24/2023 09/24/2023 09/24/2023 11:3 2 AM CDT C. difficile Rule-Out 09/27/2023 09/27/20232023 2:13 PM CDT COVID - 19 02/23/2024 02/23/2024 02/23/2024 11:2 8 AM CDT Respiratory Rule-Out 02/23/2024 02/23/2024 024 11:30 AM CDT Assessment Noted Time PHQ-9 Depression Total Score: 2 07/14/19 20 10:00 AM SAND AND GRAVEL PLANT OPERATOR documented as of this encounter Care Teams Preschool Assistant Teacher Relationship Specialty Start Date End Date Luann Cox MD PCP - General Family Medicine 04/15/15 11/02/22 Josiane Pacheco MD [address] [place] [address] PCP - General Family Medicine 11/20/22 07/30/23 Darwin Marti MD [address] [place] [address] PCP - General Internal Medicine 07/31/23 Blair Paris MD 4 [facility] [address] [place] [address] Consulting Physician Orthopaedic Sports Medicine 07/31/23 Jose A Espinosa MD 2 [facility] [address] [place] [address] Consulting Physician Pain Medicine-Pain Management 07/31/23 02/08/24 Hao Silvestre MD [address] [address] Consulting Physician Neurological Surgery 07/31/23 Carlos Dailey MD #2 [facility] [address] [place] [address] Consulting Physician Colon and Rectal Surgery 10/26/23 Saida Mckeon APRN, BREAD DISTRIBUTOR [address] [place] [address] Nurse Practitioner Gastroenterology 10/26/23 Jessenia Ward APRN, MARKING CLERK [address] [place] [address] Nurse Practitioner Advanced Practice Nurse 11/17/23 Hao Silvestre MD [address] [address] Consulting Physician Neurological Surgery 02/09/2401/27 Dominic Wang MD [place], [place] Consulting Physician Pain Medicine-Pain Management 02/09/24 Butch Muñiz MD #[address] [place] [address] Consulting Physician Neurology 02/23/24 documented as of this encounter
--- OUTSIDE RECORDS SUMMARY | 2024-08-22 10:20 | XMS_ITS | Encounter Summary ---
Author Organization [facility] Address [address] [place] [address] Phone Care Team Providers Care Plant Sprayer Name Role Phone Luann Cox MD Primary Care Provider + [phone] Josiane Pacheco MD Primary Care Provider + [phone] Blair Paris MD Unavailable [phone] Jose A Espinosa MD Unavailable +[phone] Darwin Marti MD Primary Care Provider +[phone] Hao Silvestre MD Unavailable +[phone] Carlos Dailey MD Unavailable Saida Mckeon APRN, LINE WALKER Unavailable Jessenia Ward APRN, PATIENT ADMITTING REPRESENTATIVE Unavailable +- [phone] Hao Silvestre MD Unavailable +[phone] Dominic Wang MD Unavailable +[phone] Butch Muñiz MD Unavailable +[phone] Reason for Visit * Reason Comments Medication Refill Encounter Details Date Type Department Care Team (Late st Contact Info) Description 11/29/2021 Refill [facility] - [place] [address] [place] [phone] Luann Cox MD [address] [place] [address] Medication Refill Social History Tobacco [...] Dept 06/27/21 Office Visit Luann [facility] MD [facility] 03/07/21 Office Visit Luann Cox MD [facility] Showing recent visits within past 365 days and meeting all other requirements Future Appointments Date Type Provider Dept 12/10/21 Appointment Lab, [facility] 12/16/21 Appointment Luann Cox MD [facility] Showing future appointments within next 90 [...] Dept 06/27/21 [facility] 03/07/21 Office Visit [facility] Showing recent visits within past 365 days and meeting all other requirements Future Appointments Date Type Provider Dept 12/10/21 [facility] 12/16/21 Appointment Luann Cox MD [facility] Showing future appointments within next 90 days and meeting all other requirements Passed - GFR on record in past 12 months GFR, EST. NONAFRICAN Date Value Ref Range Status 10/14/2021 >60 >=60 Final documented in this encounter Plan of Treatment Upcoming Encounters Date Type Department Care Team (Late st Contact Info) Description 08/25/2024 2:15 PM ASSEMBLER FISHING FLOATS Office Visit [facility] - Primary Care - [place] [address] [place] [address] Darwin Marti MD [address] [place] [address] 02/20/2025 9:30 AM CDT Office Visit [facility] - Neurology - [place] [address] [place] [address] Jessenia Ward APRN, PATIENT ADMITTING REPRESENTATIVE [address] [place] [address] documented as of this encounter Visit Diagnoses Diagnosis Essential hypertension Unspecified essential hypertension documented in this encounter Additional Health Concerns Infection Onset Date Last Indicated Resolved Time ESBL 08/16/2018 08/16/2018 09/28/2023 9:03 AM CDT COVID - 19 03/09/2023 03/09/2023 03/19/2023 12:1 6 AM CDT Respiratory Rule-Out 03/09/2023 03/09/2023 023 2:09 AM CDT COVID - 19 05/07/2023 05/07/2023 05/07/2023 9:50 AM ASSEMBLER FISHING FLOATS COVID - 19 Confirmed 05/07/2023 05/07/2023 023 12:16 AM ASSEMBLER FISHING FLOATS C. difficile Rule-Out 09/24/2023 09/24/20232023 3:41 PM CDT COVID - 19 09/24/2023 09/24/2023 09/24/2023 11:3 2 AM CDT C. difficile Rule-Out 09/27/2023 09/27/20232023 2:13 PM CDT COVID - 19 02/23/2024 02/23/2024 02/23/2024 11:2 8 AM CDT Respiratory Rule-Out 02/23/2024 02/23/2024 024 11:30 AM CDT Assessment Noted Time PHQ-9 Depression Total Score: 2 07/14/19 20 10:00 AM ASSEMBLER FISHING FLOATS documented as of this encounter Care Teams Plant Sprayer Relationship Specialty Start Date End Date Luann Cox MD PCP - General Family Medicine 04/15/15 11/02/22 Josiane Pacheco MD [address] [place] [address] PCP - General Family Medicine 11/20/22 07/30/23 Darwin Marti MD [address] [place] [address] PCP - General Internal Medicine 07/31/23 Blair Paris MD [address] [place] [address] Consulting Physician Orthopaedic Sports Medicine 07/31/23 Jose A Espinosa MD [address] [address] Consulting Physician Pain Medicine-Pain Management 07/31/23 02/08/24 Hao Silvestre MD [address] [address] Consulting Physician Neurological Surgery 07/31/23 Carlos Dailey MD #[address] [address] Consulting Physician Colon and Rectal Surgery 10/26/23 Saida Mckeon APRN, LINE WALKER [address] [place] [address] Nurse Practitioner Gastroenterology 10/26/23 Jessenia Ward APRN, PATIENT ADMITTING REPRESENTATIVE [address] [place] [address] Nurse Practitioner Advanced Practice Nurse 11/17/23 Hao Silvestre MD [address] [address] Consulting Physician Neurological Surgery 02/09/2401/27 Dominic Wang MD [place], [place] Consulting Physician Pain Medicine-Pain Management 02/09/24 Butch Muñiz MD [address] [place] [address] Consulting Physician Neurology 02/23/24 documented as of this encounter
--- OUTSIDE RECORDS SUMMARY | 2024-08-22 10:20 | XMS_ITS | Encounter Summary ---
Author Organization [facility] Address [address] [place] [address] Phone Care Team Providers Care Medical Device Sales Consultant Name Role Phone Luann Cox MD Primary Care Provider + [phone] Josiane Pacheco MD Primary Care Provider + [phone] Blair Paris MD Unavailable [phone] Jose A Espinoas MD Unavailable +[phone] Darwin Marti MD Primary Care Provider +[phone] Hao Silvestre MD Unavailable [phone] Carlos Dailey MD Unavailable Saida Mckeon APRN, ONLINE ADVERTISING MANAGER Unavailable Jessenia Ward APRN, READING PROFESSOR Unavailable +- [phone] Hao Silvestre MD Unavailable +[phone] Dominic Wang MD Unavailable [phone] Butch Muñiz MD Unavailable +[phone] Reason for Visit * Reason Comments Medication Refill Encounter Details Date Type Department Care Team (Late st Contact Info) Description 04/06/2020 Refill [facility] [address] [place] [address] Luann Cox MD [address] [place] [address] Medication Refill Social History Tobacco [...] Outpatient Visits 2 months ago Essential hypertension [facility] Luann Cox MD 9 months ago Essential hypertension [facility] Luann Torres MD 1 year ago [facility] 1 [facility] Syncope, unspecified syncope type [facility] Luann Torres MD 1 year ago Sore throat [facility] Upcoming Appointments Future Appointments In [address], [facility] In 3 months [facility], [facility] In 3 months Luann Cox MD [facility] ANIMAL CARE SERVICE WORKER - Recent and Past Visits Recent Visits Date Type Provider Dept 01/12/20 Office Visit Luann Cox MD [facility] 07/14/19 Office Visit Luann Cox MD [facility] 01/11/19 Office Visit Luann Cox MD [facility] Showing recent visits within past 460 [...] Outpatient Visits 2 months ago Essential hypertension [facility] Luann Cox MD 9 months ago Essential hypertension [facility] Luann Torres MD 1 year ago Essential hypertension [facility] - Luann Torres MD 1 year ago Syncope, unspecified syncope [facility], MD 1 year ago Sore throat [facility] - Luann Torres MD Upcoming Appointments Future Appointments In 1 month [facility], [facility] In 3 months Lab, [facility] In 3 months Luann Cox MD [facility] ANIMAL CARE SERVICE WORKER - Recent and Past Visits Recent Visits Date Type Provider Dept 01/12/20 Office Visit Luann Cox MD [facility] 07/14/19 Office Visit Luann Cox MD [facility] 01/11/19 Office Visit Luann Cox MD [facility] Showing recent visits within past 460 [...] st Contact Info) Description 08/25/2024 2:15 PM CANVASSING MANAGER Office Visit [facility] Primary Care - [place] [address] [place] [address] Darwin Marti MD [address] [place] [address] 02/20/2025 9:30 AM CDT Office Visit [facility] Neurology - [place] [address] [place] [address] Jessenia Ward APRN, READING PROFESSOR [address] [place] [address] documented as of this encounter Visit Diagnoses Diagnosis Gastroesophageal reflux disease Esophageal reflux documented in this encounter Additional Health Concerns Infection Onset Date Last Indicated Resolved Time ESBL 08/16/2018 08/16/2018 09/28/2023 9:03 AM CDT COVID - 19 03/09/2023 03/09/2023 03/19/2023 12:1 6 AM CDT Respiratory Rule-Out 03/09/2023 03/09/2023 023 2:09 AM CDT COVID - 19 05/07/2023 05/07/2023 05/07/2023 9:50 AM CANVASSING MANAGER COVID - 19 Confirmed 05/07/2023 05/07/2023 023 12:16 AM CANVASSING MANAGER C. difficile Rule-Out 09/24/2023 09/24/20232023 3:41 PM CDT COVID - 19 09/24/2023 09/24/2023 09/24/2023 11:3 2 AM CDT C. difficile Rule-Out 09/27/2023 09/27/20232023 2:13 PM CDT COVID - 19 02/23/2024 02/23/2024 02/23/2024 11:2 8 AM CDT Respiratory Rule-Out 02/23/2024 02/23/2024 024 11:30 AM CDT Assessment Noted Time PHQ-9 Depression Total Score: 2 07/14/19 20 10:00 AM CANVASSING MANAGER documented as of this encounter Care Teams Medical Device Sales Consultant Relationship Specialty Start Date End Date Luann Cox MD PCP - General Family Medicine 04/15/15 11/02/22 Josiane Pacheco MD [address] [place] [address] PCP - General Family Medicine 11/20/22 07/30/23 Darwin Marti MD [address] [place] [address] PCP - General Internal Medicine 07/31/23 Blair Paris MD [address] [facility] [address] [place] [address] Consulting Physician Orthopaedic Sports Medicine 07/31/23 Jose A Espinosa MD 2 [facility] [address] [place] [address] Consulting Physician Pain Medicine-Pain Management 07/31/23 02/08/24 Hao Silvestre MD [address] [address] Consulting Physician Neurological Surgery 07/31/23 Carlos Dailey MD [address] [facility] [address] [place] [address] Consulting Physician Colon and Rectal Surgery 10/26/23 Saida Mckeon APRN, ONLINE ADVERTISING MANAGER [address] [place] [address] Nurse Practitioner Gastroenterology 10/26/23 Jessenia Ward APRN, READING PROFESSOR [address] [place] [address] Nurse Practitioner Advanced Practice Nurse 11/17/23 Hao Silvestre MD [address] [address] Consulting Physician Neurological Surgery 02/09/2401/27 Dominic Wang MD [place], [place] Consulting Physician Pain Medicine-Pain Management 02/09/24 Butch Muñiz MD [address] [place] [address] Consulting Physician Neurology 02/23/24 documented as of this encounter
--- OUTSIDE RECORDS SUMMARY | 2024-08-22 10:20 | XMS_ITS | Encounter Summary ---
Author Organization [facility] Address [address] [place] [address] Phone Care Team Providers Care Ramp Agent Name Role Phone Luann Cox MD Primary Care Provider + [phone] Josiane Pacheco MD Primary Care Provider + [phone] Blair Paris MD Unavailable [phone] Jose A Espinosa MD Unavailable [phone] Darwin Marti MD Primary Care Provider +[phone] Hao Silvestre MD Unavailable [phone] Carlos Dailey MD Unavailable Saida Mckeon APRN, STREET COMMISSIONER Unavailable Jessenia Ward APRN, RECYCLING WORKER Unavailable + [phone] Hao Silvestre MD Unavailable [phone] Dominic Wang MD Unavailable Butch Muñiz MD Unavailable +[phone] Reason for Visit * Reason Comments Medication Refill Encounter Details Date Type Department Care Team (Late st Contact Info) Description 01/01/20[facility] [place] [address] [place] [address] Luann Cox MD [address] [place] [address] Medication Refill Social History Tobacco [...] Dept 12/16/21 Office Visit Luann Cox MD [facility] 06/27/21 Office Visit Luann Cox MD [facility] 03/07/21 Office Visit Luann Cox MD [facility] Showing recent visits within past 365 [...] Dept 12/16/21 Office Visit Luann Cox MD [facility] 06/27/21 Office Visit Luann Cox MD [facility] 03/07/21 Office Visit Luann Cox MD [facility] Showing recent visits within past 365 [...] Dept 12/16/21 Office Visit Luann Cox MD [facility] [employer] other [employer] [facility] 06/27/21 Office Visit Luann Cox MD [facility] [employer] other things you bake [facility] 03/07/21 Office Visit Luann Cox MD [facility] [employer] other things you bake [facility] Showing recent visits within past 365 [...] Dept 12/16/21 Office Visit Luann Cox MD [facility] [employer] other things you bake [facility] 06/27/21 Office Visit Luann Cox MD [facility] 03/07/21 Office Visit Luann Cox MD [facility] Showing recent visits within past 365 [...] Dept 12/16/21 Office Visit Luann Cox MD [facility] 06/27/21 Office Visit Luann Cox MD [facility] 03/07/21 Office Visit Luann Cox MD [facility] Showing recent visits within past 365 [...] Contact Info) Description 08/25/2024 2:15 PM CLINICAL FELLOW Office Visit [facility] - Primary Care - [place] [address] [place] [address] Darwin Marti MD [address] [place] [address] 02/20/2025 9:30 AM CDT Office Visit [facility] - Neurology - [place] [address] [place] [address] Jessenia Ward, DEPOT MANAGER, RECYCLING WORKER [address] [place] [address] documented as of this encounter Visit Diagnoses [...] - 19 05/07/2023 05/07/2023 05/07/2023 9:50 AM CLINICAL FELLOW COVID - 19 Confirmed 05/07/2023 05/07/2023 023 12:16 AM CLINICAL FELLOW C. difficile Rule-Out 09/24/2023 09/24/20232023 3:41 PM CDT COVID - 19 09/24/2023 09/24/2023 09/24/2023 11:3 2 AM CDT C. difficile Rule-Out 09/27/2023 09/27/20232023 2:13 PM CDT COVID - 19 02/23/2024 02/23/2024 02/23/2024 11:2 8 AM CDT Respiratory Rule-Out 02/23/2024 02/23/2024 024 11:30 AM CDT Assessment Noted Time PHQ-9 Depression Total Score: 2 07/14/19 20 10:00 AM CLINICAL FELLOW documented as of this encounter Care Teams Ramp Agent Relationship Specialty Start Date End Date Luann Cox MD PCP - General Family Medicine 04/15/15 11/02/22 Josiane Pacheco MD [address] [place] [address] PCP - General Family Medicine 11/20/22 07/30/23 Darwin Marti MD [address] [place] [address] PCP - General Internal Medicine 07/31/23 Blair Paris MD 4 [facility] [address] [place] [address] Consulting Physician Orthopaedic Sports Medicine 07/31/23 Jose A Espinosa MD 2 [facility] [address] [place] [address] Consulting Physician Pain Medicine-Pain Management 07/31/23 02/08/24 Hao Silvestre MD [address] [place] [address] Consulting Physician Neurological Surgery 07/31/23 Carlos Dailey MD [address]2 [facility] [address] [place] [address] Consulting Physician Colon and Rectal Surgery 10/26/23 Saida Mckeon APRN, STREET COMMISSIONER [address] [place] [address] Nurse Practitioner Gastroenterology 10/26/23 Jessenia Ward APRN, RECYCLING WORKER [address] [place] [address] Nurse Practitioner Advanced Practice Nurse 11/17/23 Hao Silvestre MD [address] [address] Consulting Physician Neurological Surgery 02/09/2401/27 Dominic Wang MD [place], [place] Consulting Physician Pain Medicine-Pain Management 02/09/24 Butch Muñiz MD [address] [place] [address] Consulting Physician Neurology 02/23/24 documented as of this encounter
--- OUTSIDE RECORDS SUMMARY | 2024-08-22 10:20 | XMS_ITS | Encounter Summary ---
Author Organization [facility] Address [address] [place] [address] Phone Care Team Providers Care Iron And Steel Work Supervisor Name Role Phone Luann Cox MD Primary Care Provider + [phone] Josiane Pacheco MD Primary Care Provider + [phone] Blair Paris MD Unavailable [phone] Jose A Espinosa MD Unavailable [phone] Darwin Marti MD Primary Care Provider [phone] Hao Silvestre MD Unavailable [phone] Carlos Dailey MD Unavailable Saida Mckeon APRN, SLIP BRIDGE OPERATOR Unavailable Jessenia Ward APRN, VAC PRESS OPERATOR Unavailable [phone] Hao Silvestre MD Unavailable [phone] Dominic Wang MD Unavailable [phone] Butch Muñiz MD Unavailable +[phone] Encounter Details Date Type Department Care Team (Late Contact Info) Description 01/03/2020 Lab [facility] [address] [place] [address] Luann Cox MD [address] [place] [address] Essential (primary) hypertension; Syncope and [...] (Late Contact Info) Description 08/25/2024 2:15 PM X RAY ELECTRONICS WIRING TECHNICIAN Office Visit [facility] - Primary Care - [place] [address] [place] [phone] Darwin Marti MD [address] [place] [address] 02/20/2025 9:30 AM CDT Office Visit [facility] - Neurology - [place] [address] [facility] [place] [address] Jessenia Ward, EMAIL CAMPAIGN SPECIALIST, VAC PRESS OPERATOR [address] [place] [address] documented as of this encounter Procedures Procedure [...] 12.00 10(3)/mcL 01/03/2020 11:50 AM CDT [facility] RBC 4.18 3.80 - 5.30 10(6)/mcL 01/03/2020 11:50 AM CDT [facility] HEMOGLOBIN (HGB) 13.1 12.0 - 15.8 g/dL 01/03/2020 11:50 AM CDT [facility] HEMATOCRIT (HCT) 40.7 36.0 - 47.0 % 01/03/2020 11:50 AM CDT [facility] MCV 97.4(H) 82.0 - 96.0 fL 01/03/2020 11:50 AM CDT [facility] MCH 31.3 26.0 - 34.0 pg 01/03/2020 11:50 AM CDT [facility] MCHC 32.2 31.0 - 36.0 g/dL 01/03/2020 11:50 AM CDT [facility] PLATELET COUNT 208 140 - 440 10(3)/mcL 01/03/2020 11:50 AM CDT [facility] RDW 13.2 11.8 - 15.5 % 01/03/2020 11:50 AM CDT [facility] MPV 11.7 9.7 - 12.4 fL 01/03/2020 11:50 AM CDT [facility] NEUTROPHILS 68.0 47.0 - 73.0 % 01/03/2020 11:50 AM CDT [facility] LYMPHOCYTES 22.9 18.0 - 42.0 % 01/03/2020 11:50 AM CDT [facility] MONOCYTES 5.6 4.0 - 12.0 % 01/03/2020 11:50 AM CDT [facility] EOSINOPHILS 2.4 0.0 - 5.0 % 01/03/2020 11:50 AM CDT [facility] BASOPHILS 1.1(H) 0.0 - 1.0 % 01/03/2020 11:50 AM CDT [facility] ABSOLUTE NEUTROPHILS 3.75 1.60 - 7.70 10(3)/mcL 01/03/2020 11:50 AM CDT [facility] ABSOLUTE LYMPHOCYTES 1.26(L) 1.30 - 3.20 10(3)/mcL 01/03/2020 11:50 AM CDT [facility] ABSOLUTE MONOCYTES 0.31 0.20 - 1.00 10(3)/mcL 01/03/2020 11:50 AM CDT [facility] ABSOLUTE EOSINOPHIL 0.13 0.00 - 0.40 10(3)/mcL 01/03/2020 11:50 AM CDT [facility] ABSOLUTE BASOPHILS 0.06 0.00 - 0.10 10(3)/mcL 01/03/2020 11:50 AM CDT [facility] NRBC PER 100 WBC 0 01/03/20 20 11:50 AM CDT [facility] Blood Venipuncture / Unknown 01/03/2020 11:00 AM CDT 01/03/2020 11:46 AM CDT us Luann Cox MD HEMATOLOGY ORDERABLES Final Result Performing Organization Address City/[facility] Co de Phone Number [facility] [address] [place] [address] * (ABNORMAL) LIPID PANEL (01/03/2020 11:00 AM CDT) CHOLESTEROL 190 <=200 mg/dL 01/03/2020 12:17 PM CDT [facility] TRIGLYCERIDES 140 <150 mg/dL 01/03/2020 12:17 PM CDT [facility] HDL CHOLESTEROL 54.2 >40 mg/dL 0 12:17 PM CDT [facility] LDL 108 5 - 130 mg/dL 01/03/2020 12:17 PM CDT [facility] VLDL 28 5 - 55 mg/dL 01/03/2020 12:17 PM CDT [facility] CHOL/HDL RATIO 3.5 0.0 - 4.4 01/03/2020 12:17 PM CDT [facility] NON-HDL CHOLESTEROL 135.8(H) <130 mg/dL 01/03/2020 12:17 PM CDT [facility] LIPID FASTING 01/03/2020 12:17 PM CDT [facility] Blood Venipuncture / Unknown 01/03/2020 11:00 AM CDT 01/03/2020 11:46 AM CDT us Luann Cox MD CHEMISTRY ORDERABLES Final R esult Performing Organization Address City/[facility]/ZIP Co de Phone Number [facility] [address] [place] [address] * (ABNORMAL) CMP (COMPREHENSIVE METABOLIC PANEL) (01/03/2020 11:00 AM CDT) SODIUM 136 136 - 144 mmol/L 01/03/2020 12:17 PM CDT [facility] POTASSIUM 4.0 3.5 - 5.1 mmol/L 01/03/2020 12:17 PM CDT [facility] CHLORIDE 100 100 - 110 mmol/L 01/03/2020 12:17 PM CDT [facility] CO2, VENOUS 27 22 - 32 mmol/L 01/03/2020 12:17 PM CDT [facility] ANION GAP 13.0 8.0 - 20.0 mmol/L 01/03/2020 12:17 PM CDT [facility] GLUCOSE 96 70 - 99 mg/dL 01/03/2020 12:17 PM CDT [facility] BUN 17 8 - 23 mg/dL 01/03/2020 12:17 PM CDT [facility] CREATININE, BLOOD 0.69 0.60 - 1.10 mg/dL 01/03/2020 12:17 PM T [facility] BUN/CREATININE RATIO 25(H) 12 - 20 ratio 01/03/2020 12:17 PM T [facility] TOTAL PROTEIN 7.0 6.0 - 8.3 g/dL 01/03/2020 12:17 PM T [facility] ALBUMIN 4.5 3.5 - 5.2 g/dL 01/03/2020 12:17 PM T [facility] Comment: The colormetric methods used for the determination of Albumin may lead to falsely elevated test results in patients suffering from renal failure or insufficiency due to interference with other proteins. A/G RATIO 1.8 1.0 - 2.0 01/03/2020 12:17 PM T [facility] CALCIUM 9.4 8.9 - 10.3 mg/dL 01/03/2020 12:17 PM CDT [facility] T BILI 0.3 <=1.2 mg/dL 01/03/2020 12:17 PM CDT [facility] SGOT (AST) 28 <=32 U/L 01/03/2020 12:17 PM CDT [facility] SGPT (ALT) 30 <=33 U/L 01/03/2020 12:17 PM CDT [facility] ALKALINE PHOSPHATASE 90 35 - 105 U/L 01/03/2020 12:17 PM CDT [facility] GFR, EST. NONAFRICAN >60 >=60 01/03/2020 12:17 PM CDT [facility] GFR, EST. >60 >=60 020 12:17 PM CDT [facility] Comment: Creatinine Clearance is the preferred criteria for selecting drug dose adjustments in renally impaired patients. The GFR is provided as additional pertinent clinical information. GFR is reported in mL/min/1.73 sq m. Blood Venipuncture / Unknown 01/03/2020 11:00 AM CDT 01/03/2020 11:46 AM CDT us Luann Cox MD CHEMISTRY ORDERABLES Final R esult [facility] [address] [place] [address] documented in this encounter Visit Diagnoses Diagnosis [...] - 19 05/07/2023 05/07/2023 05/07/2023 9:50 AM X RAY ELECTRONICS WIRING TECHNICIAN COVID - 19 Confirmed 05/07/2023 05/07/2023 023 12:16 AM X RAY ELECTRONICS WIRING TECHNICIAN C. difficile Rule-Out 09/24/2023 09/24/20232023 3:41 PM CDT COVID - 19 09/24/2023 09/24/2023 09/24/2023 11:3 2 AM CDT C. difficile Rule-Out 09/27/2023 09/27/20232023 2:13 PM CDT COVID - 19 02/23/2024 02/23/2024 02/23/2024 11:2 8 AM CDT Respiratory Rule-Out 02/23/2024 02/23/2024 024 11:30 AM CDT Assessment Noted Time PHQ-9 Depression Total Score: 2 07/14/19 20 10:00 AM X RAY ELECTRONICS WIRING TECHNICIAN documented as of this encounter Care Teams Iron And Steel Work Supervisor Relationship Specialty Start Date End Date Luann Cox MD PCP - General Family Medicine 04/15/15 11/02/22 Josiane Pacheco MD [address] [place] [address] PCP - General Family Medicine 11/20/22 07/30/23 Darwin Marti MD [address] [place] [address] PCP - General Internal Medicine 07/31/23 Blair Paris MD 4 [facility] , [address] [place] [address] Consulting Physician Orthopaedic Sports Medicine 07/31/23 Jose A Espinosa MD 2 [facility] [address] [place] [address] Consulting Physician Pain Medicine-Pain Management 07/31/23 02/08/24 Hao Silvestre MD [address] [address] Consulting Physician Neurological Surgery 07/31/23 Carlos Dailey MD #[address] [address] Consulting Physician Colon and Rectal Surgery 10/26/23 Saida Mckeon APRN, SLIP BRIDGE OPERATOR #2 [place] [address] Nurse Practitioner Gastroenterology 10/26/23 Jessenia Ward APRN, VAC PRESS OPERATOR #2 [place] [address] Nurse Practitioner Advanced Practice Nurse 11/17/23 Hao Silvestre MD [address] [address] Consulting Physician Neurological Surgery 02/09/2401/27 Dominic Wang MD [place], [place] Consulting Physician Pain Medicine-Pain Management 02/09/24 Butch Muñiz MD #2 [place] [address] Consulting Physician Neurology 02/23/24 documented as of this encounter
--- OUTSIDE RECORDS SUMMARY | 2024-08-22 10:20 | XMS_ITS | Encounter Summary ---
Author Organization [facility] Address [address] [place] [address] Phone Care Team Providers Care Curtain Feller Blindstitch Name Role Phone Blair Paris MD Unavailable [phone] Darwin Marti MD Primary Care Provider + [phone] Hao Silvestre MD Unavailable +[phone] Carlos Dailey MD Unavailable Saida Mckeon APRN, AMALGAMATOR Unavailable Jessenia Ward APRN, ASSEMBLER DIELECTRIC HEATER Unavailable + [phone] Dominic Wang MD Unavailable [phone] Butch Muñiz MD Unavailable [phone] Reason for Visit * Reason Comments Medication Refill Encounter Details Date Type Department Care Team (Late st Contact Info) Description 03/04/2024 Refill [facility] - Primary Care - [place] [address] [place] [address] Darwin Marti MD [address] [address] Medication Refill Social History Tobacco Use Types Packs/Day Years Used Date Smoking Tobacco: Former Cigarettes 2 41.8 1 964 - 04/09/2005 Smokeless Tobacco: Never Alcohol Use Standard Drinks/Week Comments No 0 (1 standard drink = 0.6 oz pur e alcohol) [facility] Utilities Answer Date Recorded In the past [...] often do you attend chur ch or catholic services? Never 09/26/2023 Do you belong to [...] Answer Date Recorded PHQ-2 Score 2 07/14/2019 [facility] of Occupat ional Health - Occupational Stress [...] place to sleep or slept in a detention (including now)? No 09/26/2023 Sexually Active Control [...] Telephone Encounter - Indra Garcia RN - 03/04/2024 9:22 AM CDT Refill requested too soon. documented in this encounter Plan of Treatment Upcoming Encounters Date Type Department Care Team (Late st Contact Info) Description 08/25/2024 2:15 PM 911 TELECOMMUNICATOR Office Visit [facility] - Primary Care - [place] [address] [place] [address] Darwin Marti MD [address] [place] [address] 02/20/2025 9:30 AM CDT Office Visit [facility] Neurology - [place] [address] [place] [address] Jessenia Ward, WELDER PRODUCTION [employer], ASSEMBLER DIELECTRIC HEATER [address] [place] [address] documented as of this encounter Visit Diagnoses Not on filedocumented in this encounter Additional Health Concerns Assessment Noted Time PHQ-9 Depression Total Score: 0 07/31/19 24 12:53 PM 911 TELECOMMUNICATOR documented as of this encounter Care Teams Curtain Feller Blindstitch Relationship Specialty Start Date End Date Darwin Marti MD [address] [place] [address] PCP - General Internal Medicine 07/31/23 Blair Paris MD [address] [place] [address], [address] [address] Consulting Physician Orthopaedic Sports Medicine 07/31/23 Hao Silvestre MD [address] [place] [address] Consulting Physician Neurological Surgery 07/31/23 Carlos Dailey MD #[address] [address] Consulting Physician Colon and Rectal Surgery 10/26/23 Saida Mckeon APRN, AMALGAMATOR [address] [place] [address] Nurse Practitioner Gastroenterology 10/26/23 Jessenia Ward APRN, ASSEMBLER DIELECTRIC HEATER [address] [place] [address] Nurse Practitioner Advanced Practice Nurse 11/17/23 Dominic Wang MD [place], [place] Consulting Physician Pain Medicine-Pain Management 02/09/24 Butch Muñiz MD [address] [place] [address] Consulting Physician Neurology 02/23/24 documented as of this encounter
--- OUTSIDE RECORDS SUMMARY | 2024-08-22 10:20 | XMS_ITS | Clinical Summary ---
Author Organization [facility] Address [address] [place] [address] Care Team Providers Care Board Hammer Operator Name Role Phone Darwin Marti MD Primary Care Provider [phone] Source Comments [facility],non-owned Affiliates and Associated Physician Practices is amultiple site organization consisting of ambulatory clinics and hospital sitesin [place], [place], [place] and [place]. This disclosure is being madepursuant to the Care Everywhere program and may not contain all information available regarding this patient. Last updated 18.[facility] Allergies Active Allergy Reactions Criticality Noted Date [...] Reaction: Vomiting, Penicillins Other,Unknown 03/28/2021 Reaction: Unknown, [place] Unknown 06/15/2015 Sulfa Drugs Other 02/08/2020 Reaction: [...] 61 10/19/2021 8:17 AM CDT Temperature 36.6 C (97.8 F) 10/19/2021 8:17 AM CDT Respiratory Rate 18 10/19/2021 8:17 AM CDT [...] Comments BONE DENSITY TESTING 1950 MEDICARE AWV 12 MONTHS 1950 HEPATITIS C SCREENING 01/11/1966 DTAP/TDAP/TD VACCINES (1 - Tdap) 06/30/1998 06/29/1998 ZOSTER VACCINE (2 of 3) 03/24/2013 01/27/2013 Respiratory Syncytial Virus (RSV) Vaccine Pt: or over 60 yrs (1 - 1-dose 75+ series) 01/15/2023 COVID-19 VACCINE (4 - season) 2024 07/01/2021, 11/06/2020, 10/09/2020 INFLUENZA VACCINE (#1) 2024 , 07/12/2020, 05/04/2019, Additional history exists DEPRESSION SCREENING [...] 5:32 PM 10/19/2021 1:05 PM Care Teams Board Hammer Operator Relationship Specialty Start Date End Date Darwin Marti MD [address] [place] [address] PCP - General Internal Medicine 10/27/23
--- OUTSIDE RECORDS SUMMARY | 2024-08-22 10:20 | XMS_ITS | Encounter Summary ---
Author Organization [facility] Address [address] [place] [address] Phone Care Team Providers Care Pressurizer Name Role Phone Luann Cox MD Primary Care Provider + [phone] Josiane Pacheco MD Primary Care Provider + [phone] Blair Paris MD Unavailable [phone] Jose A Espinosa MD Unavailable [phone] Darwin Marti MD Primary Care Provider [phone] Hao Silvestre MD Unavailable [phone] Carlos Dailey MD Unavailable Saida Mckeon APRN, ELECTRIC SHIPYARD OPERATOR Unavailable Jessenia Ward APRN, OFFAL WORKER Unavailable + [phone] Hao Silvestre MD Unavailable [phone] Dominic Wang MD Unavailable [phone] Butch Muñiz MD Unavailable +[phone] Reason for Visit * Reason Comments Medication Refill Encounter Details Date Type Department Care Team (Late st Contact Info) Description 12/26/2019 Refill [facility] [address] [place] [address] Luann Cox MD [address] [place] [address] Medication Refill Social History Tobacco [...] Torres MD 11 months ago Essential hypertension [facility] - Luann Torres MD 1 year ago Syncope, unspecified syncope type [facility] - Luann Torres MD 1 year ago Sore throat [facility] - Luann Torres MD 1 year ago Essential hypertension [facility] - Luann Torres MD Upcoming Appointments Future Appointments In 1 week Chanelle Edmonds RN [facility] In 1 week [facility] Lab, [facility], [facility] In 2 weeks [facility] weeks Luann Cox MD [facility] [address] In 3 weeks [facility] [address] documented in this encounter Plan of Treatment Upcoming Encounters Date Type Department Care Team (Late st Contact Info) Description 08/25/2024 2:15 PM STRIP PRESSER Office Visit [facility] - Primary Care - [place] [address] [place] [phone] Darwin Marti MD [address] [place] [address] 02/20/2025 9:30 AM CDT Office Visit [facility] Neurology - [place] [address] [place] [address] Jessenia Ward, SHIPYARD HELPER, OFFAL WORKER [address] [place] [address] documented as of this encounter Visit Diagnoses Diagnosis Gastroesophageal reflux disease, esophagitis presence not specified documented in this encounter Additional Health Concerns Infection Onset Date Last Indicated Resolved Time ESBL 08/16/2018 08/16/2018 09/28/2023 9:03 AM CDT COVID - 19 03/09/2023 03/09/2023 03/19/2023 12:1 6 AM CDT Respiratory Rule-Out 03/09/2023 03/09/2023 023 2:09 AM CDT COVID - 19 05/07/2023 05/07/2023 05/07/2023 9:50 AM STRIP PRESSER COVID - 19 Confirmed 05/07/2023 05/07/2023 023 12:16 AM STRIP PRESSER C. difficile Rule-Out 09/24/2023 09/24/20232023 3:41 PM CDT COVID - 19 09/24/2023 09/24/2023 09/24/2023 11:3 2 AM CDT C. difficile Rule-Out 09/27/2023 09/27/20232023 2:13 PM CDT COVID - 19 02/23/2024 02/23/2024 02/23/2024 11:2 8 AM CDT Respiratory Rule-Out 02/23/2024 02/23/2024 024 11:30 AM CDT Assessment Noted Time PHQ-9 Depression Total Score: 2 07/14/19 20 10:00 AM STRIP PRESSER documented as of this encounter Care Teams Pressurizer Relationship Specialty Start Date End Date Luann Cox MD PCP - General Family Medicine 04/15/15 11/02/22 Josiane Pacheco MD [address] [place] [address] PCP - General Family Medicine 11/20/22 07/30/23 Darwin Marti MD [address] [place] [address] PCP - General Internal Medicine 07/31/23 Blair Paris MD 4 [facility], [facility] [address] [place] [address] Consulting Physician Orthopaedic Sports Medicine 07/31/23 Jose A Espinosa MD 2 [facility] [address] [place] [address] Consulting Physician Pain Medicine-Pain Management 07/31/23 02/08/24 Hao Silvestre MD [address] [place] [address] Consulting Physician Neurological Surgery 07/31/23 Carlos Dailey MD #[address] [address] Consulting Physician Colon and Rectal Surgery 10/26/23 Saida Mckeon APRN, ELECTRIC SHIPYARD OPERATOR [address] [place] [address] Nurse Practitioner Gastroenterology 10/26/23 Jessenia Ward APRN, OFFAL WORKER [address] [place] [address] Nurse Practitioner Advanced Practice Nurse 11/17/23 Hao Silvestre MD [address] [address] Consulting Physician Neurological Surgery 02/09/2401/27 Dominic Wang MD [place], [place] Consulting Physician Pain Medicine-Pain Management 02/09/24 Butch Muñiz MD #[address] [place] [address] Consulting Physician Neurology 02/23/24 documented as of this encounter
--- OUTSIDE RECORDS SUMMARY | 2024-08-22 10:20 | XMS_ITS | Referral Summary ---
Author Organization [facility] Address [address] [place] [address] Care Team Providers Care Resource Specialist Teacher Name Role Phone Darwin Marti MD Primary Care Provider [phone] Source Comments [facility],non-owned Affiliates and Associated Physician Practices is amultiple site organization consisting of ambulatory clinics and hospital sitesin [place], [place], [place] and [place]. This disclosure is being madepursuant to the Care Everywhere program and may not contain all information available regarding this patient. Last updated 18.[facility] Allergies Active Allergy Reactions Criticality Noted [...] Reaction: Vomiting, Penicillins Other,Unknown 03/28/2021 Reaction: Unknown, [place] Unknown 06/15/2015 Sulfa Drugs Other 02/08/2020 Reaction: [...] 5:32 PM 10/19/2021 1:05 PM Care Teams Resource Specialist Teacher Relationship Specialty Start Date End Date Darwin Marti MD [address] [place] [address] PCP - General Internal Medicine 10/27/23
--- OUTSIDE RECORDS SUMMARY | 2024-08-22 10:20 | XMS_ITS | Encounter Summary ---
Author Organization [facility] Address [address] [place] [address] Phone Care Team Providers Care Wet Machine Operator Name Role Phone Luann Cox MD Primary Care Provider + [phone] Josiane Pacheco MD Primary Care Provider + [phone] Blair Paris MD Unavailable [phone] Jose A Espinosa MD Unavailable [phone] Darwin Marti MD Primary Care Provider [phone] Hao Silvestre MD Unavailable [phone] Carlos Dailey MD Unavailable Saida Mckeon APRN, TRASH HAULER Unavailable Jessenia Ward APRN, VIRTUAL ASSISTANT FOR ADVERTISERS Unavailable +- [phone] Hao Silvestre MD Unavailable [phone] Dominic Wang MD Unavailable [phone] Butch Muñiz MD Unavailable [phone] Reason for Visit * Reason Comments Medication Refill Encounter Details Date Type Department Care Team (Late st Contact Info) Description 03/01[facility]20[facility] [place] [address] [place] [address] Luann Cox MD [address] [place] [address] Medication Refill Social History Tobacco [...] Dept 12/16/21 Office Visit [facility] 06/27/21 Office Visit Luann Cox MD [facility] 03/07/21 Office Visit Luann Cox MD [facility] Showing recent visits within past 365 days and meeting all other requirements Future Appointments Date Type Provider Dept 05/23/22 Appointment [facility] 05/29/22 Appointment Luann Cox MD [facility] [employer] [facility] Showing future appointments within next [...] Dept 12/16/21 Office Visit Luann Cox MD [facility] 06/27/21 Office Visit Luann Cox MD [facility] 03/07/21 Office Visit Luann Cox MD [facility] Showing recent visits within past 365 days and meeting all other requirements Future Appointments Date Type Provider Dept 05/23/22 Appointment Lab, [facility] 05/29/22 Appointment Luann Cox MD [facility] Showing future appointments within next 90 days and meeting all other requirements documented in this encounter Plan of Treatment Upcoming Encounters Date Type Department Care Team (Late st Contact Info) Description 08/25/2024 2:15 PM SENIOR PROGRAMMER Office Visit [facility] - Primary Care - [place] [address] [place] [address] Darwin Marti MD [address] [place] [address] 02/20/2025 9:30 AM CDT Office Visit [facility] - Neurology - [place] [address] [place] [address] Jessenia Ward, PANTOGRAPH SETTER, VIRTUAL ASSISTANT FOR ADVERTISERS [address] [place] [address] documented as of this encounter Visit Diagnoses Diagnosis Neuropathy Mononeuritis of unspecified site documented in this encounter Additional Health Concerns Infection Onset Date Last Indicated Resolved Time ESBL 08/16/2018 08/16/2018 09/28/2023 9:03 AM CDT COVID - 19 03/09/2023 03/09/2023 03/19/2023 12:1 6 AM CDT Respiratory Rule-Out 03/09/2023 03/09/2023 023 2:09 AM CDT COVID - 19 05/07/2023 05/07/2023 05/07/2023 9:50 AM SENIOR PROGRAMMER COVID - 19 Confirmed 05/07/2023 05/07/2023 023 12:16 AM SENIOR PROGRAMMER C. difficile Rule-Out 09/24/2023 09/24/20232023 3:41 PM CDT COVID - 19 09/24/2023 09/24/2023 09/24/2023 11:3 2 AM CDT C. difficile Rule-Out 09/27/2023 09/27/20232023 2:13 PM CDT COVID - 19 02/23/2024 02/23/2024 02/23/2024 11:2 8 AM CDT Respiratory Rule-Out 02/23/2024 02/23/2024 024 11:30 AM CDT Assessment Noted Time PHQ-9 Depression Total Score: 2 07/14/19 20 10:00 AM SENIOR PROGRAMMER documented as of this encounter Care Teams Wet Machine Operator Relationship Specialty Start Date End Date Luann Cox MD PCP - General Family Medicine 04/15/15 11/02/22 Josiane Pacheco MD [address] [place] [address] PCP - General Family Medicine 11/20/22 07/30/23 Darwin Marti MD [address] [place] [address] PCP - General Internal Medicine 07/31/23 Blair Paris MD [address] [facility] , [address] [place] [address] Consulting Physician Orthopaedic Sports Medicine 07/31/23 Jose A Espinosa MD [address] [place] [address] Consulting Physician Pain Medicine-Pain Management 07/31/23 02/08/24 Hao Silvestre MD [address] [facility] [address] [place] [address] Consulting Physician Neurological Surgery 07/31/23 Carlos Dailey MD [address] [address] Consulting Physician Colon and Rectal Surgery 10/26/23 Saida Mckeon APRN, TRASH HAULER [address] [place] [address] Nurse Practitioner Gastroenterology 10/26/23 Jessenia Ward APRN, VIRTUAL ASSISTANT FOR ADVERTISERS [address] [place] [address] Nurse Practitioner Advanced Practice Nurse 11/17/23 Hao Silvestre MD [address] [address] Consulting Physician Neurological Surgery 02/09/2401/27 Dominic Wang MD [place], [place] Consulting Physician Pain Medicine-Pain Management 02/09/24 Butch Muñiz MD [address] [place] [address] Consulting Physician Neurology 02/23/24 documented as of this encounter
--- OUTSIDE RECORDS SUMMARY | 2024-08-22 10:20 | XMS_ITS | Continuity of Care Document ---
Author Organization [facility] Address [address] [place] [address] Phone Care Team Providers Care Podiatrist Orthopedic Name Role Phone Joao Mnea OD Unavailable Unavailable Allergies, Adverse Reactions, Alerts [...] Refraction After Cataract Laser Surgery Office/outpatient Visit, [facility] Advance Directives Directive Yes / No Effective Date File Name No Information Encounters Encounter Description Practice Location Reason(s) For Visit Diagnoses Date Provider Providers Copied on Encounter [facility] Quewey [facility], [address] [facility] [address], [place], [place], [id number], [place] tel:[phone] Naked Winestasha GODINEZ Professional Post-Op (chief complaint) Post op visit 9 Trina BURGOS Joao. [address] [facility], 6[address], [place], [address], [place]. tel:[phone] Referring Provider: Demetrio Pinzon OD, [place] [address] [place] [address], [address]. tel:[phone] [facility], [address], [place], [place], [address], [place] tel:[phone] [employer] HERBERT Professional YAG PC (chief complaint) Post op visitOther secondary cataract, right eye 9 Maxwell Pearce. [address] [facility], [address], [place], [place], [address], [place]. tel:[phone] Referring Provider: Demetrio Pinzon OD, [place] [address] [place] [address], [address]. tel:[phone] [facility] ECO [facility]ant, [facility], [address], [place], [place], [address], [place] tel:[phone] [place] Professional YAG PC (chief complaint) Presence of intraocular lensOther secondary cataract, bilateralEndot helial corneal dystrophy 9 Maxwell Pearce. [address] [facility], [address], [place], [place], [address], [place]. tel:[phone] Referring Provider: Demetrio Pinzon OD, [employer] [address] [facility], [place], [address]. tel:[phone] Family History Family Member Type Diagnosis Age [...]
--- OUTSIDE RECORDS SUMMARY | 2024-08-22 10:20 | XMS_ITS | Encounter Summary ---
Author Organization [facility] Address [address] [place] [address] Phone Care Team Providers Care Remote Sensing Scientist Name Role Phone Josiane Pacheco MD Primary Care Provider [phone] Blair Paris MD Unavailable [phone] Jose A Espinosa MD Unavailable [phone] Darwin Marti MD Primary Care Provider [phone] Hao Silvestre MD Unavailable [phone] Carlos Dailey MD Unavailable Saida Mckeon APRN, PROCESSING REP Unavailable Jessenia Ward APRN, [facility] Unavailable + [phone] Hao Silvestre MD Unavailable Dominic Wang MD Unavailable Butch Muñiz MD Unavailable Reason for Visit * Reason Comments Medication Refill Encounter Details Date Type Department Care Team (Late st Contact Info) Description 01/18/2023 Refill [facility] - Primary Care - [place] [address] [place] [address] Josiane Pacheco MD [address] [place] [address] Medication Refill Social History Tobacco Use Types [...] Dept 05/29/22 Office Visit Luann Cox MD [facility] Showing recent visits within past 365 days and meeting all other requirements Future Appointments Date Type Provider Dept 01/29/23 Appointment Josiane Pacheco MD [facility] Showing future appointments within next 90 [...] Dept 05/29/22 Office Visit Luann Cox MD [facility] Showing recent visits within past 365 days and meeting all other requirements Future Appointments Date Type Provider Dept 01/29/23 Appointment Josiane Pacheco MD [facility] Showing future appointments within next 90 [...] Dept 05/29/22 Office Visit Luann Cox MD [facility] Showing recent visits within past 365 days and meeting all other requirements Future Appointments Date Type Provider Dept 01/29/23 Appointment Josiane Pacheco MD [facility] Showing future appointments within next 90 [...] Dept 05/29/22 Office Visit Luann Cox MD [facility] Showing recent visits within past 365 days and meeting all other requirements Future Appointments Date Type Provider Dept 01/29/23 Appointment Josiane Pacheco MD [facility] Showing future appointments within next 90 [...] Dept 05/29/22 Office Visit Luann Cox MD [facility] Showing recent visits within past 365 days and meeting all other requirements Future Appointments Date Type Provider Dept 01/29/23 Appointment Josiane Pacheco MD [facility] Showing future appointments within next 90 days and meeting all other requirements documented in this encounter Plan of Treatment Upcoming Encounters Date Type Department Care Team (Late st Contact Info) Description 08/25/2024 2:15 PM MANAGER OF TAX Office Visit [facility] - Primary Care - [place] [address] [place] [phone] Darwin Marti MD [address] [place] [address] 02/20/2025 9:30 AM CDT Office Visit [facility] - Neurology - [place] [address] [place] [address] Jessenia Ward, TON CONTAINER SHIPPER, CUSTOMER SERVICE ATTENDANT [address] [place] [address] documented as of this encounter Visit Diagnoses [...] - 19 05/07/2023 05/07/2023 05/07/2023 9:50 AM MANAGER OF TAX COVID - 19 Confirmed 05/07/2023 05/07/2023 023 12:16 AM MANAGER OF TAX C. difficile Rule-Out 09/24/2023 09/24/20232023 3:41 PM CDT COVID - 19 09/24/2023 09/24/2023 09/24/2023 11:3 2 AM CDT C. difficile Rule-Out 09/27/2023 09/27/20232023 2:13 PM CDT COVID - 19 02/23/2024 02/23/2024 02/23/2024 11:2 8 AM CDT Respiratory Rule-Out 02/23/2024 02/23/2024 024 11:30 AM CDT Assessment Noted Time PHQ-9 Depression Total Score: 2 07/14/19 20 10:00 AM MANAGER OF TAX documented as of this encounter Care Teams Remote Sensing Scientist Relationship Specialty Start Date End Date Josiane Pacheco MD [address] [place] [address] PCP - General Family Medicine 11/20/22 07/30/23 Darwin Marti MD [address] [place] [address] PCP - General Internal Medicine 07/31/23 Blair Paris MD 4 [facility] [address] [place] [address] Consulting Physician Orthopaedic Sports Medicine 07/31/23 Jose A Espinosa MD 2 [facility] [address] [place] [address] Consulting Physician Pain Medicine-Pain Management 07/31/23 02/08/24 Hao Silvestre MD [address] [address] Consulting Physician Neurological Surgery 07/31/23 Carlos Dailey MD [address] [facility] [address] [place] [address] Consulting Physician Colon and Rectal Surgery 10/26/23 Saida Mckeon APRN, PROCESSING REP [address] [place] [address] Nurse Practitioner Gastroenterology 10/26/23 Jessenia Ward, TON CONTAINER SHIPPER, CUSTOMER SERVICE ATTENDANT [address] [place] [address] Nurse Practitioner Advanced Practice Nurse 11/17/23 Hao Silvestre MD [address] [address] Consulting Physician Neurological Surgery 02/09/2401/27 Dominic Wang MD [place], [place] Consulting Physician Pain Medicine-Pain Management 02/09/24 Butch Muñiz MD [address] [place] [address] Consulting Physician Neurology 02/23/24 documented as of this encounter
--- OUTSIDE RECORDS SUMMARY | 2024-08-22 10:20 | XMS_ITS | Patient Health Summary ---
Author Organization [facility] Address [address] [facility] [place] [address] Care Team Providers Care Cable Testers Helper Name Role Phone Darwin Marti MD Primary Care Provider [phone] Note from [facility],non-owned Affiliates and Associated Physician Practices is amultiple site organization consisting of ambulatory clinics and hospital sitesin [place], [place], [place] and [place]. This disclosure is being madepursuant to the Care Everywhere program and may not contain all information available regarding this patient. Last updated 18.[facility] DisplayLink Allergies * Acetaminophen(Vomiting) * Aspirin(Other) * Celecoxib(Unknown) * Cephalosporins(Rash) -Medium Criticality * Codeine(Palpitations,Unknown) * Diptheria-Tetanus Toxoids-Dt(Angioedema) -High Criticality * Fish(Other) * Fish Allergy(Unknown) * Hydrocodone(Vomiting) * Hydrocodone-Acetaminophen(Vomiting) * Ibuprofen(Other) -Medium Criticality * Kiwi Extract(Palpitations,Unknown) * Latex(Itching,Other) * Meperidine(Urticaria) -Medium Criticality * Mercury(Unknown) * Morphine(Unknown) * Oxycodone(Vomiting) * Penicillins(Other,Unknown) * [place](Unknown) * Sulfa Drugs(Other) * Tetanus Antitoxin(Swelling) * [...] AM CDT) Case Report Surgical Pathology Report Case: [id number] Authorizing Provider: Brielle Howe MD Collected: 10/18/2021 10:20 AM Ordering Location: [facility] OP Received: 10/18/2021 01:49 PM Pathologist: Trace Lew MD Specimen: Soft Tissue, Other, Right Vascular Ruptured Nodule 10/21/2021 3:00 PM CDT [facility] Final Diagnosis Soft tissue, right vascular ruptured nodule, excision (A): - Benign fibrovascular tissue - No evidence of malignancy 10/21/2021 3:00 PM CDT [facility] Microscopic Description and Comment Histologic sections fibroadipose tissue with a slightly cellular but collapsed anastomosing channels that are favored to represent vascular spaces. 10/21/2021 3:00 PM CDT [facility] Clinical History The patient is a 71-year-old woman with a right orbital lesion, who underwent Right orbitotomy with excisional biopsy of lesion. 10/21/2021 3:00 PM CDT [facility] Gross Description The requisition and specimen(s) are identified with the patient's name Yaima Gutierrez. Received in formalin, specimen A , are 2 pink-tena tissues, 0.3 x 0.1 x 0.1 cm and 0.8 x 0.3 x 0.1 cm, submitted in toto in cassette A1. DF 10/21/2021 3:00 PM [facility] Disclaimer The performance characteristics of all immunohistochemical and indirect immunofluorescence stains (if any) cited in this report were determined by the Histopathology Laboratory of [facility]. Some of these tests were developed by [...] the attending (teaching) pathologist. 10/21/2021 3:00 PM CDT [facility] Embedded Images 10/21/2021 3:00 PM CDT [facility] Biopsy, Excision (Soft Tissue, Other) 10/18/2021 10:20 AM CDT 10/18/2021 1:49 PM CDT Comment:Pre-op diagnosis: Mass right orbit near inferior rectus Brielle Howe MD LAB - PATHOLOGY/C YTOLOGY ORDERABLES Performing Organization Address [facility] Co de Phone Number [facility] [address] [phone] * ETT LINE PERFORMABLE (10/18/2021 7:55 AM CDT) Narrative Gabriela Snyder DO - 10/18/2021 7:55 AM CDT Gabriela Snyder DO 10/18/2021 7:55 AM Endotracheal Tube Placement: Patient Location: OR. Intubation Event Date/Time: 10/18/2021 7:49 AM Procedure: intubation (13382). Procedure Section: Sedation: under general anesthesia. Indications for Airway Management: anesthesia Induction: standard IV Patient Position: sniffing and supine Mask Ventilation: easy. Blade Type: [...] auscultation and CO2 monitor Tube secured with: adhesive tape. Difficult Airway? No. Procedure Start Time: 10/18/2021 7:49 AM. Staff Section Anesthesia Provider: Gabriela Snyder DO, Performed the procedure Abiodun Pate MD GENERAL ANESTHESIA O RDERABLES * BLOOD TYPE VERIFICATION (10/18/2021 7:00 AM CDT) ABO Rh O NEG 10/18/2021 7:3 7 AM CDT [facility] Blood Bank BLOOD SPECIMEN / Unknown Lab Venipuncture / Unknown 10/18/2021 7:00 AM CDT 10/18/2021 7:06 AM CDT Brielle Howe MD LAB - BLOOD BANK ORDERABLES Performing Organization Address City/[facility]/ZIP Co de Phone Number [facility] [address] [place] [address], [employer] [phone] * TYPE + SCREEN PANEL (10/18/2021 6:38 AM CDT) Antibody Screen NEG 7:37 AM CDT [facility] ABO Rh O NEG 10/18/2021 7:37 AM CDT [facility] Blood Bank BLOOD SPECIMEN / Unknown Venipuncture / Unknown 10/18/2021 6:38 AM CDT 10/18/2021 6:50 AM CDT Brielle Howe MD LAB - BLOOD BANK ORDERABLES Performing Organization Address City/[facility]/ZIP Co de Phone Number [facility] [address] [place] [address], [place] [phone] * CBC W/O DIFFERENTIAL (10/08/2021 1:57 PM CDT) WBC 6.3 3.5 - 10.5 10 3/uL 10/08/2021 2:21 PM [facility] RBC 4.50 3.80 - 5.20 10 6/uL 10/08/2021 2:21 PM [facility] Hemoglobin 13.6 12.0 - 15.6 g/dL 10/08/2021 2:21 PM [facility] Hematocrit 42.3 35.0 - 45.0 % 10/08/2021 2:21 PM [facility] MCV 94.0 80.7 - 98.3 fL 10/08/2021 2:21 PM [facility] MCH 30.2 26.7 - 34.0 pg 10/08/2021 2:21 PM [facility] MCHC 32.2 30.8 - 35.9 g/dL 10/08/2021 2:21 PM [facility] Platelet Count 208 150 - 400 10 3/uL 10/08/2021 2:21 PM [facility] RDW-SD 48.2 36.0 - 50.0 fL 10/08/2021 2:21 PM [facility] RDW-CV 13.9 11.2 - 14.8 % 10/08/2021 2:21 PM [facility] MPV 11.9 9.4 - 12.9 fL 10/08/2021 2:21 PM [facility] nRBC Absolute 0.00 0 10 3/uL 10/08/2021 2:21 PM [facility] nRBC Auto 0.0 0 /100 WBC 10/08/2021 2:21 PM [facility] Blood BLOOD SPECIMEN / Unknown Lab Venipuncture / Unknown 10/08/2021 1:57 PM CDT 10/08/2021 2:09 PM CDT Brielle Howe MD LAB - HEMATOLOGY ORDERABLES [facility] [address] [place] [address] [phone] * (ABNORMAL) BASIC METABOLIC PANEL (CALCIUM TOTAL) (10/08/2021 1:57 PM CDT) BUN 22 7 - 26 mg/dL 10/08/2021 2:46 PM [facility] Creatinine 0.80 0.56 - 0.96 mg/dL 10/08/2021 2:46 PM [facility] Sodium 140 136 - 145 mmol/L 10/08/2021 2:46 PM [facility] Potassium 4.8(H) 3.5 - 4.5 mmol/L 10/08/2021 2:46 PM [facility] Comment:Hemolysis detected i n this specimen. Hemolysis may cause false elevations in potassium leading to pseudohyperkalemia or masked hypokalemia. Recommend repeat testing if clinically indicated. Chloride 103 98 - 107 mmol/L 10/08/2021 2:46 PM [facility] CO2 23 22 - 29 mmol/L 10/08/2021 2:46 PM [facility] Glucose 90 70 - 115 mg/dL 10/08/2021 2:46 PM [facility] Calcium 9.8 8.4 - 10.2 mg/dL 10/08/2021 2:46 PM [facility] Anion Gap 19(H) 8 - 18 10/08/2021 2:46 PM [facility] BUN/Creatinine Ratio 28(H) 7 - 23 09/27 2:46 PM [facility] Osmolality Calculated 293 270 - 300 mOsm/kg 10/08/2021 2:46 PM [facility] eGFR by CKD-EPI 78(L) >=90 mL/min/1. 73 m2 10/08/2021 2:46 PM [facility] Blood BLOOD SPECIMEN / Unknown Lab Venipuncture / Unknown 10/08/2021 1:57 PM CDT 10/08/2021 2:09 PM CDT Brielle Howe MD LAB - CHEMISTRY O RDERAHECTOR [facility] [address] [place] [address], [facility] [phone] * EKG 12-LEAD (10/08/2021 1:15 PM CDT) Ventricular Rate 69 BPM [facility] Atrial Rate 69 BPM [facility] P-R Interval 130 ms [facility] QRS Duration ms 80 ms [facility] Q-T Interval ms 432 ms [facility] QTC Calculation (Bezet) 462 ms [facility] Calculated P [place] 58 degrees [facility] Calculated R [place] 10 degrees [facility] Calculated T [place] 55 degrees [facility] Interpretation EKG NORMAL SINUS RHYTHM POSSIBLE LEFT ATRIAL ENLARGEMENT BORDERLINE ECG NO PREVIOUS ECGS AVAILABLE Confirmed by Petros Morejon ([id number]) on 10/10/2021 11:35:55 AM [facility] MUSE 10/08/2021 1:15 PM CDT 10/10/2021 11:35 AM CDT Brielle Howe MD ECG ORDERABLES [facility] * MRI ORBITS OR FACE WWO CONTRAST (06/17/2021 12:56 PM TRACKMAN) Anatomical Region Laterality Modality Head Magnetic Resonan ce 06/17/2021 1:12 PM TRACKMAN Impressions 06/17/2021 1:28 PM TRACKMAN IMPRESSION: 1.0.7 x 0.7 cm avidly enhancing [...] JENY VARELA on 06/17/2021 1:28 PM . Narrative 06/17/2021 1:28 PM TRACKMAN Contrast enhanced MRI of the orbits INDICATION: [...] CREATININE - POCT INTERFACED (06/17/2021 12:23 PM TRACKMAN) Creatinine POCT 0.81 0.30 - 1.30 mg/dL 06/17/2021 12:25 PM TRACKMAN [facility] eGFR >60 >60 mL/min/1.7 3 m2 06/17/2021 12:25 PM TRACKMAN [facility] Blood BLOOD SPECIMEN / Unknown 06/17/2021 12:23 PM TRACKMAN 06/17/2021 12:25 PM TRACKMAN Brielle Howe MD LAB - POINT OF ID RE ORDERABLES [facility] [address] [address], [facility] [phone] * OPH VISUAL FIELD TEST U (03/28/2021 11:02 AM CDT) Anatomical Region Laterality Modality Other 03/28/2021 11:0 2 AM CDT Alessio Shore MD OPHTHALMOLOGY SERVIC ES ORDERABLES * Visual Mclean (09/25/2020 12:03 PM CDT) Anatomical Region Laterality Modality Other 09/25/2020 12:0 3 PM CDT Derek Mejía OD OPHTHALMOLOGY SERVIC ES ORDERABLES * Visual [place]clean (02/08/2020 9:34 AM CDT) Anatomical Region Laterality Modality Other 02/08/2020 9:34 AM CDT Heriberto Blue MD OPHTHALMOLOGY [facility] ES ORDERABLES Care Teams Cable Testers Helper Relationship Specialty Start Date End Date Darwin Marti MD [address] [place] [address] PCP - General Internal Medicine 10/27/23
--- OUTSIDE RECORDS SUMMARY | 2024-08-22 10:20 | XMS_ITS | Encounter Summary ---
Author Organization [facility] Address [address] [place] [address] Phone Care Team Providers Care Foreign Exchange Student Coordinator Name Role Phone Luann Cox MD Primary Care Provider + [phone] Josiane Pacheco MD Primary Care Provider + [phone] Blair Paris MD Unavailable [phone] Jose A Espinosa MD Unavailable +[phone] Darwin Marti MD Primary Care Provider +[phone] Hao Silvestre MD Unavailable +[phone] Carlos Dailey MD Unavailable Saida Mckeon APRN, INDUSTRIAL RELATIONS DIRECTOR Unavailable Jessenia Ward APRN, LANDMAN Unavailable + [phone] Hao Silvestre MD Unavailable +[phone] Dominic Wang MD Unavailable [phone] Butch Muñiz MD Unavailable +[phone] Reason for Visit * Reason Comments Medication Refill Encounter Details Date Type Department Care Team (Late st Contact Info) Description 02/15/2020 Refill [facility] [address] [place] [address] Luann Cox MD [address] [place] [address] Medication Refill Social History Tobacco [...] st Contact Info) Description 08/25/2024 2:15 PM STATISTICAL TECHNICIAN [facility] [place] [address] [place] [address] Darwin Marti MD [address] [place] [address] 02/20/2025 9:30 AM CDT Office Visit [facility] Neurology - [place] [address] [place] [address] Jessenia Ward APRN, LANDMAN [address] [place] [address] documented as of this encounter Visit Diagnoses Diagnosis History of arthroscopy of left shoulder documented in this encounter Additional Health Concerns Infection Onset Date Last Indicated Resolved Time ESBL 08/16/2018 08/16/2018 09/28/2023 9:03 AM CDT COVID - 19 03/09/2023 03/09/2023 03/19/2023 12:1 6 AM CDT Respiratory Rule-Out 03/09/2023 03/09/2023 023 2:09 AM CDT COVID - 19 05/07/2023 05/07/2023 05/07/2023 9:50 AM STATISTICAL TECHNICIAN COVID - 19 Confirmed 05/07/2023 05/07/2023 023 12:16 AM STATISTICAL TECHNICIAN C. difficile Rule-Out 09/24/2023 09/24/20232023 3:41 PM CDT COVID - 19 09/24/2023 09/24/2023 09/24/2023 11:3 2 AM CDT C. difficile Rule-Out 09/27/2023 09/27/20232023 2:13 PM CDT COVID - 19 02/23/2024 02/23/2024 02/23/2024 11:2 8 AM CDT Respiratory Rule-Out 02/23/2024 02/23/2024 024 11:30 AM CDT Assessment Noted Time PHQ-9 Depression Total Score: 2 07/14/19 20 10:00 AM STATISTICAL TECHNICIAN documented as of this encounter Care Teams Foreign Exchange Student Coordinator Relationship Specialty Start Date End Date Luann Cox MD PCP - General Family Medicine 04/15/15 11/02/22 Josiane Pacheco MD [address] [place] [address] PCP - General Family Medicine 11/20/22 07/30/23 Darwin Marti MD [address] [place] [address] PCP - General Internal Medicine 07/31/23 Blair Paris MD 4 [facility] [address] [place] [address] Consulting Physician Orthopaedic Sports Medicine 07/31/23 Jose A Espinosa MD 2 [facility] [address] [place] [address] Consulting Physician Pain Medicine-Pain Management 07/31/23 02/08/24 Hao Silvestre MD [address] [address] Consulting Physician Neurological Surgery 07/31/23 Carlos Dailey MD #2 [facility] [address] [place] [address] Consulting Physician Colon and Rectal Surgery 10/26/23 Saida Mckeon APRN, INDUSTRIAL RELATIONS DIRECTOR #2 [place] [address] Nurse Practitioner Gastroenterology 10/26/23 Jessenia Ward APRN, [facility] [address] [place] [address] Nurse Practitioner Advanced Practice Nurse 11/17/23 Hao Silvestre MD [address] [address] Consulting Physician Neurological Surgery 02/09/2401/27 Dominic Wang MD [place], [place] Consulting Physician Pain Medicine-Pain Management 02/09/24 Butch Muñiz MD #2 [place] [address] Consulting Physician Neurology 02/23/24 documented as of this encounter
--- OUTSIDE RECORDS SUMMARY | 2024-08-22 10:20 | XMS_ITS | Encounter Summary ---
Author Organization [facility] Address [address] [place] [address] Phone Care Team Providers Care Computer Consultant Name Role Phone Luann Cox MD Primary Care Provider + [phone] Josiane Pacheco MD Primary Care Provider + [phone] Blair Paris MD Unavailable +[phone] Jose A Espinosa MD Unavailable [phone] Darwin Marti MD Primary Care Provider +[phone] Hao Silvestre MD Unavailable +[phone] Carlos Dailey MD Unavailable Saida Mckeon APRN, LEATHER WORKER Unavailable Jessenia Ward APRN, SALES TRAINING COORDINATOR Unavailable +- [phone] Hao Silvestre MD Unavailable +[phone] Dominic Wang MD Unavailable [phone] Butch Muñiz MD Unavailable +[phone] Reason for Visit * Reason Comments Medication Refill Encounter Details Date Type Department Care Team ([facility] Contact Info) Description 12/12/[address] [facility] [address] [place] [address] Luann Cox MD [address] [place] [address] Medication Refill Social History Tobacco [...] Upcoming Encounters Date Type Department Care Team ([facility] Contact Info) Description 08/25/2024 2:15 PM WOOD HEEL ATTACHER Office Visit [facility] [place] [address] [place] [address] Darwin Marti MD [address] [place] [address] 02/20/2025 9:30 AM CDT Office Visit [facility] - Neurology - [place] [address] [place] [address] Jessenia Ward, LUMBER DRIVER, SALES TRAINING COORDINATOR [address] [place] [address] documented as of this encounter Visit Diagnoses Diagnosis Essential hypertension Unspecified essential hypertension documented in this encounter Additional Health Concerns Infection Onset Date Last Indicated Resolved Time ESBL 08/16/2018 08/16/2018 09/28/2023 9:03 AM CDT COVID - 19 03/09/2023 03/09/2023 03/19/2023 12:1 6 AM CDT Respiratory Rule-Out 03/09/2023 03/09/2023 023 2:09 AM CDT COVID - 19 05/07/2023 05/07/2023 05/07/2023 9:50 AM WOOD HEEL ATTACHER COVID - 19 Confirmed 05/07/2023 05/07/2023 023 12:16 AM WOOD HEEL ATTACHER C. difficile Rule-Out 09/24/2023 09/24/20232023 3:41 PM CDT COVID - 19 09/24/2023 09/24/2023 09/24/2023 11:3 2 AM CDT C. difficile Rule-Out 09/27/2023 09/27/20232023 2:13 PM CDT COVID - 19 02/23/2024 02/23/2024 02/23/2024 11:2 8 AM CDT Respiratory Rule-Out 02/23/2024 02/23/2024 024 11:30 AM CDT Assessment Noted Time PHQ-9 Depression Total Score: 2 07/14/19 20 10:00 AM WOOD HEEL ATTACHER documented as of this encounter Care Teams Computer Consultant Relationship Specialty Start Date End Date Luann Cox MD PCP - General Family Medicine 04/15/15 11/02/22 Josiane Pacheco MD [address] [place] [address] PCP - General Family Medicine 11/20/22 07/30/23 Darwin Marti MD [address] [place] [address] PCP - General Internal Medicine 07/31/23 Blair Paris MD 4 [facility] [address] [place] [address] Consulting Physician Orthopaedic Sports Medicine 07/31/23 Jose A Espinosa MD 2 [facility] [address] [place] [address] Consulting Physician Pain Medicine-Pain Management 07/31/23 02/08/24 Hao Silvestre MD [address] [address] Consulting Physician Neurological Surgery 07/31/23 aCrlos Dailey MD #2 [facility] [address] [place] [address] Consulting Physician Colon and Rectal Surgery 10/26/23 Saida Mckeon APRN, LEATHER WORKER #2 [place] [address] Nurse Practitioner Gastroenterology 10/26/23 Jessenia Ward APRN, SALES TRAINING COORDINATOR #[address] [place] [address] Nurse Practitioner Advanced Practice Nurse 11/17/23 Hao Silvestre MD [address] [facility] [address] [place] [address] Consulting Physician Neurological Surgery 02/09/2401/27 Dominic Wang MD [place], [place] Consulting Physician Pain Medicine-Pain Management 02/09/24 Butch Muñiz MD #[address] [place] [address] Consulting Physician Neurology 02/23/24 documented as of this encounter
== END 2024-08-22 09:31 | disposition home or self-care (01) ==
PROVIDERS: PCP Internal Medicine; Visit Provider Neurological Surgery
DX: Z98.1 Arthrodesis status (principal); M85.88 Other specified disorders of bone density and structure, other site; M51.369 Other intervertebral disc degeneration, lumbar region without mention of lumbar back pain or lower extremity pain
CPT/HCPCS: 72202

== ENCOUNTER 2024-09-24 10:27 | Outpatient (CLI) | payer MEDICARE, OTHER, SELFPAY ==
--- NOTE | ~2024-09-24 | MR_ITS ---
MRI of the lumbar spine Clinical History: Arthrodesis Technique: Axial T2-weighted images, and sagittal T1-weighted, T2-weighted, and T2 fat-sat images wer e acquired. COMPARISON: 04/24/2023 Findings: No acute fracture or subluxation. There is mild reversal normal lumbar lordosis. Osseous al ignment is essentially stable from prior exam. No suspicious bone marrow signal abnormality seen. At L1-L2, there is no significant disc bulge or herniation. There is mild facet hypertrophy. No centr al canal stenosis. Probable mild bilateral neural foraminal narrowing. At L2-L3, there is mild disc bulge with moderate facet hypertrophy. No central canal stenosis or defi nite neural foraminal narrowing. L3-L4, there is disc bulge with moderate facet hypertrophy. There is mild central canal stenosis. The re is preservation neural foramina. At L4-L5, there is moderate degenerative disc narrowing. There is disc bulge and mild facet hypertrop hy. No vandana central canal stenosis or definite neural foraminal narrowing. At L5-S1, there is mild degenerative disc narrowing. There is diffuse disc bulge/protrusion with mode rate facet hypertrophy. There is moderate to advanced central canal stenosis. There is severe bilater al neural foraminal compromise. Probable postoperative change at the posterior element of L5 with pos sible hemilaminectomy. Paravertebral soft tissues are unremarkable. Impression: Severe degenerative spondylosis at L5-S1, as detailed above. Suspected postoperative change at the posterior element of L5. Possible hemilaminectomy. Correlate wi th surgical history. Additional mild degenerative changes overall, as above. Reviewed, dictated and finalized at [facility]. Impression: Severe degenerative spondylosis at L5-S1, as detailed above. Suspected postoperative change at the posterior element of L5. Possible hemilam inectomy. Correlate with surgical history. Additional mild degenerative changes overall, as above.
--- OUTSIDE RECORDS SUMMARY | 2024-09-24 10:32 | XMS_ITS | Continuity of Care Document ---
Author Organization [facility] Address [address] [place] [address] Phone Care Team Providers Care Foam Cutting Supervisor Name Role Phone Joao Mena OD Unavailable [...] Refraction After Cataract Laser Surgery Office/outpatient Visit, [facility] Advance Directives Directive Yes / No Effective Date File Name No Information Encounters Encounter Description Practice Location Reason(s) For Visit Diagnoses Date Provider Providers Copied on Encounter [facility] [employer] [facility], [address] [facility], [place], [place], [id number], [place] tel:[phone] [employer] GODINEZ Professional Post-Op (chief complaint) Post op visit 9 Trina BURGOS Joao. [address] [facility], 6th Floor, [place], [address], [place]. tel:[phone] Referring Provider: Demetrio Pinzon OD, [employer] [address] [place] [address], [address]. tel:[phone] [employer] [facility], [address], [place], [place], [id number], [place] tel:[phone] [facility] [place] Professional YAG PC (chief complaint) Post op visitOther secondary cataract, right eye 9 Maxwell Pearce. [address] [facility], [address], [place], [place], [address], [place]. tel:[phone] Referring Provider: Demetrio Pinzon OD, [employer] [address] [place] [address], [address]. tel:[phone] [facility]pa tient Visit, [facility] [employer] [place], [facility], [address], [place], [place], [address], [place] tel:[phone] [employer] Professional YAG PC (chief complaint) Presence of intraocular lensOther secondary cataract, bilateralEndot helial corneal dystrophy 9 Maxwell Pearce. [address] [facility], [address], [place], [place], [address], [place]. tel:[phone] Referring Provider: Demetrio Pinzon OD, [employer] [address] [facility], [place], [address]. tel:[phone] Family History Family Member Type Diagnosis Age At Onset Mother Problem (finding) Diabetes mellitus Payers Payer name Insurance type Covered democrat ID Authoriza tion(s) No Information Social History [...]
--- OUTSIDE RECORDS SUMMARY | 2024-09-24 10:32 | XMS_ITS | Encounter Summary ---
Author Organization [facility] Address [address] [place] [address] Phone Care Team Providers Care Sciences Dean Name Role Phone Luann Cox MD Primary Care Provider + [phone] Josiane Pacheco MD Primary Care Provider + [phone] Blair Paris MD Unavailable +[phone] Jose A Espinosa MD Unavailable [phone] Darwin Marti MD Primary Care Provider [phone] Hao Silvestre MD Unavailable +[phone] Carlos Dailey MD Unavailable Saida Mckeon APRN, BUS GREASER Unavailable Jessenia Ward APRN, JEWELRY COATER Unavailable + [phone] Hao Silvestre MD Unavailable +[phone] Dominic Wang MD Unavailable [phone] Butch Muñiz MD Unavailable +[phone] Reason for Visit * Reason Comments Medication Refill Encounter Details Date Type Department Care Team (Late st Contact Info) Description 10/06/2020 Refill [facility] [address] [place] [address] Luann Cox MD [address] [place] [address] Medication Refill Social History Tobacco [...] COVID-19? No / Unsure 09/06/2020 11:36 AM INVESTMENT OFFICER documented as of this encounter Miscellaneous Notes [...] Spinal stenosis, lumbar region, with neurogenic claudication [facility] Luann Cox MD 2 months ago Uncomplicated asthma [facility] Luann Cox MD 9 months ago Essential hypertension [facility] Luann Cox MD 1 year ago Essential hypertension [facility] Luann Cox MD 1 year ago Essential hypertension [facility] Luann Cox MD Upcoming Appointments Future Appointments In 5 months Luann Cox MD [facility] - Recent and Past Visits Recent Visits Date Type Provider Dept 09/06/20 Office Visit Luann Cox MD [facility] 07/24/20 Office Visit Luann Cox MD [facility] 01/12/20 Office Visit Luann Cox MD [facility] 07/14/19 Office Visit Luann Cox MD [facility] Showing recent visits within past [...] Spinal stenosis, lumbar region, [facility] MD 2 months ago Uncomplicated asthma [facility] Luann Cox MD 9 months ago Essential hypertension [facility] Luann Cox MD 1 year ago Essential [facility] MD 1 year ago Essential hypertension [facility] Hanley MD Upcoming Appointments Future Appointments In 5 months Luann Cox MD [facility] - Recent and Past Visits Recent Visits Date Type Provider Dept 09/06/20 Office Visit Luann Cox MD [facility] 07/24/20 Office Visit Luann Cox MD [facility] 01/12/20 Office Visit Luann Cox MD [facility] 07/14/19 Office Visit Luann Cox MD [facility] Showing recent visits within past [...] Care Team (Late st Contact Info) Description 02/20/2025 9:30 AM CDT Office Visit [facility] Neurology [facility] [address] [place] [address] Jessenia Ward, WAITER AND CASHIER, JEWELRY COATER [address] [place] [address] 03/02/2025 9:15 AM CDT Office Visit [facility] Primary Care - [place] [address] [place] [address] Darwin Marti MD [address] [place] [address] documented as of this encounter Visit Diagnoses Diagnosis Gastroesophageal reflux disease Esophageal reflux documented in this encounter Additional Health Concerns Infection Onset Date Last Indicated Resolved Time ESBL 08/16/2018 08/16/2018 09/28/2023 9:03 AM CDT COVID - 19 03/09/2023 03/09/2023 03/19/2023 12:1 6 AM CDT Respiratory Rule-Out 03/09/2023 03/09/2023 023 2:09 AM CDT COVID - 19 05/07/2023 05/07/2023 05/07/2023 9:50 AM INVESTMENT OFFICER COVID - 19 Confirmed 05/07/2023 05/07/2023 023 12:16 AM INVESTMENT OFFICER C. difficile Rule-Out 09/24/2023 09/24/20232023 3:41 PM CDT COVID - 19 09/24/2023 09/24/2023 09/24/2023 11:3 2 AM CDT C. difficile Rule-Out 09/27/2023 09/27/20232023 2:13 PM CDT COVID - 19 02/23/2024 02/23/2024 02/23/2024 11:2 8 AM CDT Respiratory Rule-Out 02/23/2024 02/23/2024 024 11:30 AM CDT Assessment Noted Time PHQ-9 Depression Total Score: 2 07/14/19 20 10:00 AM INVESTMENT OFFICER documented as of this encounter Care Teams Sciences Dean Relationship Specialty Start Date End Date Luann Cox MD PCP - General Family Medicine 04/15/15 11/02/22 Josiane Pacheco MD [address] [place] [address] PCP - General Family Medicine 11/20/22 07/30/23 Darwin Marti MD [address] [place] [address] PCP - General Internal Medicine 07/31/23 Blair Paris MD 4 [facility] [address] [place] [address] Consulting Physician Orthopaedic Sports Medicine 07/31/23 Jose A Espinosa MD 2 [facility] [address] [place] [address] Consulting Physician Pain Medicine-Pain Management 07/31/23 02/08/24 Hao Silvestre MD [address] [address] Consulting Physician Neurological Surgery 07/31/23 Carlos Dailey MD #[address] [address] [address] Consulting Physician Colon and Rectal Surgery 10/26/23 Saida Mckeon APRN, BUS GREASER [address] [place] [address] Nurse Practitioner Gastroenterology 10/26/23 Jessenia Ward APRN, JEWELRY COATER [address] [place] [address] Nurse Practitioner Neurology 11/17/23 Hao Silvestre MD [address] [address] Consulting Physician Neurological Surgery 02/09/2401/27 Dominic Wang MD [place], [place] Consulting Physician Pain Medicine-Pain Management 02/09/24 Butch Muñiz MD #[address] [place] [address] Consulting Physician Neurology 02/23/24 documented as of this encounter
--- OUTSIDE RECORDS SUMMARY | 2024-09-24 10:32 | XMS_ITS | Encounter Summary ---
Author Organization [facility] Address [address] [place] [address] Phone Care Team Providers Care Communications Officer Name Role Phone Blair Paris MD Unavailable +[phone] Jose A Espinosa MD Unavailable +[phone] Darwin Marti MD Primary Care Provider +[phone] Hao Silvestre MD Unavailable +[phone] Carlos Dailey MD Unavailable Saida Mckeon APRN, TOOL WORKER Unavailable Jessenia Ward APRN, [facility] Unavailable + [phone] Hao Silvestre MD Unavailable +[phone] Dominic Wang MD Unavailable [phone] Butch Muñiz MD Unavailable Reason for Visit * Reason Comments Medication Refill Encounter Details Date Type Department Care Team (Late st Contact Info) Description 11/13/2023 Refill [facility] - Primary Care - [place] [address] [place] [address] Darwin Marti MD [address] [place] [address] Medication Refill Social History Tobacco Use Types Packs/Day Years Used Date Smoking Tobacco: Former Cigarettes 2 41.8 1 964 - 04/09/2005 Smokeless Tobacco: Never Alcohol Use Standard Drinks/Week Comments No 0 (1 standard drink = 0.6 oz pur e alcohol) [facility] Utilities Answer Date Recorded In the past 12 months has [employer], gas, oil, or water [employer] threatened to shut off services in your [...] often do you attend chur ch or judaism services? Never 09/26/2023 Do you belong to any clubs o r organizations such as moravian groups, unions, fraternal or athletic groups, or [...] Answer Date Recorded PHQ-2 Score 2 07/14/2019 [facility] of Occupat ional Health - Occupational Stress [...] AM CDT Medication[facility]) [facility] Refill Standing Order for Pediatricand [...] Dept 10/14/23 Office Visit Darwin Marti MD [facility] 10/05/23 Office Visit Cassie Lara APRN, MARIO [facility] 07/31/23 Office Visit Darwin Marti MD [facility] 01/29/23 Office Visit Josiane Pacheco MD [facility] Showing recent visits within past 365 days and meeting all other requirements Future Appointments Date Type Provider Dept 02/09/24 Appointment Darwin Marti MD [facility] Showing future appointments within next 90 days and meeting all other requirements Passed - Normal TSH in past 12 months TSH Date Value Ref Range Status 07/31/2023 1.805 0.300 - 5.000 mIU/L Final documented in this encounter Plan of Treatment Upcoming Encounters Date Type Department Care Team (Late st Contact Info) Description 02/20/2025 9:30 AM CDT Office [facility] - Neurology [facility] #2 [place] [address] Jessenia Ward APRN, TONGUE TRIMMER [address] [place] [address] 03/02/2025 9:15 AM CDT Office Visit [facility] - Primary Care - [place] [address] [place] [address] Darwin Marti MD [address] [place] [address] documented as of this encounter Visit Diagnoses Diagnosis Hypothyroidism (acquired) Unspecified hypothyroidism documented in this encounter Additional Health Concerns Infection Onset Date Last Indicated Resolved Time COVID - 19 02/23/2024 02/23/2024 02/23/2024 11:2 8 AM CDT Respiratory Rule-Out 02/23/2024 02/23/2024 024 11:30 AM CDT Assessment Noted Time PHQ-9 Depression Total Score: 0 07/31/19 12:53 PM MEDICAL DOSIMETRIST documented as of this encounter Care Teams Communications Officer Relationship Specialty Start Date End Date Darwin Marti MD [address] [place] [address] PCP - General Internal Medicine 07/31/23 Blair Paris MD 4 [facility] [address] [place] [address] Consulting Physician Orthopaedic Sports Medicine 07/31/23 Jose A Espinosa MD 2 [facility] [address] [place] [address] Consulting Physician Pain Medicine-Pain Management 07/31/23 02/08/24 Hao Silvestre MD [address] [address] Consulting Physician Neurological Surgery 07/31/23 Carlos Dailey MD #2 [facility] [address] [place] [address] Consulting Physician Colon and Rectal Surgery 10/26/23 Saida Mckeon APRN, TOOL WORKER #2 [place] [address] Nurse Practitioner Gastroenterology 10/26/23 Jessenia Ward APRN, [facility] #[address] [place] [address] Nurse Practitioner Neurology 11/17/23 [place] [address] [place] [address] Consulting Physician Neurological Surgery 02/09/2401/27 Dominic Wang MD [place], [place] Consulting Physician Pain Medicine-Pain Management 02/09/24 Butch Muñiz MD #[address] [place] [address] Consulting Physician Neurology 02/23/24 documented as of this encounter
--- OUTSIDE RECORDS SUMMARY | 2024-09-24 10:32 | XMS_ITS | Encounter Summary ---
Author Organization [facility] Address [address] [place] [address] Phone Care Team Providers Care Taker Off Drying Kiln Name Role Phone Luann Cox MD Primary Care Provider + [phone] Josiane Pacheco MD Primary Care Provider + [phone] Blair Paris MD Unavailable [phone] Jose A Espinosa MD Unavailable [phone] Darwin Marti MD Primary Care Provider [phone] Hao Silvestre MD Unavailable [phone] Carlos Dailey MD Unavailable Saida Mckeon APRN, ASSIGNMENT AGENT Unavailable [place], Jessenia M CURTAIN MENDER, INTELLECTUAL PROPERTY LAWYER Unavailable [phone] Hao Silvestre MD Unavailable Dominic Wang MD Unavailable [phone] Butch Muñiz MD Unavailable [phone] Reason for Visit * Reason Comments Medication Refill Encounter Details Date Type Department Care Team (Late Contact Info) Description 02/23/2021 Refill [facility] - Primary Care - [place] [address] [place] [id number] Luann Cox MD [address] [place] [address] Medication Refill Social History Tobacco [...] Department Care Team (Late Contact Info) Description 02/20/2025 9:30 AM CDT Office Visit [facility] - Neurology - [place] [address] [place] [address] Jessenia Ward, CURTAIN MENDER, INTELLECTUAL PROPERTY LAWYER [address] [place] [address] 03/02/2025 9:15 AM CDT Office Visit [facility] - Primary Care - [place] [address] [place] [address] Darwin Marti MD [address] [place] [address] documented as of this encounter Visit Diagnoses Diagnosis Essential hypertension Unspecified essential hypertension documented in this encounter Additional Health Concerns Infection Onset Date Last Indicated Resolved Time ESBL 08/16/2018 08/16/2018 09/28/2023 9:03 AM CDT COVID - 19 03/09/2023 03/09/2023 03/19/2023 12:1 6 AM CDT Respiratory Rule-Out 03/09/2023 03/09/2023 023 2:09 AM CDT COVID - 19 05/07/2023 05/07/2023 05/07/2023 9:50 AM ACCESS SERVICE REPRESENTATIVE COVID - 19 Confirmed 05/07/2023 05/07/2023 023 12:16 AM ACCESS SERVICE REPRESENTATIVE C. difficile Rule-Out 09/24/2023 09/24/20232023 3:41 PM CDT COVID - 19 09/24/2023 09/24/2023 09/24/2023 11:3 2 AM CDT C. difficile Rule-Out 09/27/2023 09/27/20232023 2:13 PM CDT COVID - 19 02/23/2024 02/23/2024 02/23/2024 11:2 8 AM CDT Respiratory Rule-Out 02/23/2024 02/23/2024 024 11:30 AM CDT Assessment Noted Time PHQ-9 Depression Total Score: 2 07/14/19 20 10:00 AM ACCESS SERVICE REPRESENTATIVE documented as of this encounter Care Teams Taker Off Drying Kiln Relationship Specialty Start Date End Date Luann Cox MD PCP - General Family Medicine 04/15/15 11/02/22 Josiane Pacheco MD [address] [place] [address] PCP - General Family Medicine 11/20/22 07/30/23 Darwin Marti MD [address] [place] [address] PCP - General Internal Medicine 07/31/23 Blair Paris MD 4 [facility] [address] [place] [address] Consulting Physician Orthopaedic Sports Medicine 07/31/23 Jose A Espinosa MD [address] [address] Consulting Physician Pain Medicine-Pain Management 07/31/23 02/08/24 Hao Silvestre MD [address] [address] Consulting Physician Neurological Surgery 07/31/23 Carlos Dailey MD [address] [address] Consulting Physician Colon and Rectal Surgery 10/26/23 Saida Mckoen APRN, ASSIGNMENT AGENT [address] [place] [address] Nurse Practitioner Gastroenterology 10/26/23 Jessenia Ward APRN, INTELLECTUAL PROPERTY LAWYER [address] [place] [address] Nurse Practitioner Neurology 11/17/23 Hao Silvestre MD [address] [place] [address] Consulting Physician Neurological Surgery 02/09/2401/27 Dominic Wang MD [place], [place] Consulting Physician Pain Medicine-Pain Management 02/09/24 Butch Muñiz MD [address] [place] [address] Consulting Physician Neurology 02/23/24 documented as of this encounter
--- OUTSIDE RECORDS SUMMARY | 2024-09-24 10:32 | XMS_ITS | Encounter Summary ---
Author Organization [facility] Address [address] [place] [address] Phone Care Team Providers Care Ferryboat Operator Name Role Phone NaidaalisBlair guerrero MD Unavailable [phone] Darwin Marti MD Primary Care Provider [phone] Hao Silvestre MD Unavailable [phone] Carlos Dailey MD Unavailable Saida Mckeon APRN, INTERNET SPECIALIST Unavailable Jessenia Ward APRN, SHEET METAL WORKER Unavailable + [phone] Dominic Wang MD Unavailable [phone] Butch Muñiz MD Unavailable [phone] Reason for Visit * Reason Onset Date Comments Cough 02/23/2024 Chest Congestion 02/23/2024 Encounter Details Date Type Department Care Team (Late st Contact Info) Description 02/23/2024 Nurse Triage [facility] [address] [place] [address] Darwin Marti MD [address] [place] [address] Cough; Chest Congestion Social History Tobacco Use Types Packs/Day Years Used Date Smoking Tobacco: Former Cigarettes 2 41.8 1 964 - 04/09/2005 Smokeless Tobacco: Never Alcohol Use Standard Drinks/Week Comments No 0 (1 standard drink = 0.6 oz pur e alcohol) [facility] Utilities Answer Date Recorded In the [...] often do you attend chur ch or sabianist services? Never 09/26/2023 Do you belong to any clubs o r organizations such as voodoo groups, unions, fraternal or athletic groups, or [...] Answer Date Recorded PHQ-2 Score 2 07/14/2019 [facility] - Occupational [...] Dept Phone 02/23/2024 9:15 AM Butch Muñiz [facility] - Neurology - [place] [phone] 02/23/2024 11:00 AM Darwin Marti [facility] - Primary Care - [place] [phone] Patient states that her medications and allergies [...] Description 02/20/2025 9:30 AM CDT Office Visit [facility] - Neurology - [place] [address] [place] [address] Jessenia Ward APRN, SHEET METAL WORKER [address] [place] [address] 03/02/2025 9:15 AM CDT Office Visit [facility] - Primary Care - [place] [address] [place] [address] Darwin Marti MD [address] [place] [address] documented as of this encounter Visit Diagnoses Not on filedocumented in this encounter Additional Health Concerns Infection Onset Date Last Indicated Resolved Time COVID - 19 02/23/2024 02/23/2024 02/23/2024 11:2 8 AM CDT Respiratory Rule-Out 02/23/2024 02/23/2024 024 11:30 AM CDT Assessment Noted Time PHQ-9 Depression Total Score: 0 07/31/19 24 12:53 PM TIN CUTTER documented as of this encounter Care Teams Ferryboat Operator Relationship Specialty Start Date End Date Darwin Marti MD [address] [place] [address] PCP - General Internal Medicine 07/31/23 Blair Paris MD [address] [place] [address], [address] [address] Consulting Physician Orthopaedic Sports Medicine 07/31/23 [place] [address] [place] [id number] Consulting Physician Neurological Surgery 07/31/23 Carlos Dailey MD [address] [address] Consulting Physician Colon and Rectal Surgery 10/26/23 Saida Mckeon APRN, INTERNET SPECIALIST [address] [place] [address] Nurse Practitioner Gastroenterology 10/26/23 Jessenia Ward APRN, SHEET METAL WORKER [address] [place] [address] Nurse Practitioner Neurology 11/17/23 Dominic Wang MD [place], [place] Consulting Physician Pain Medicine-Pain Management 02/09/24 Butch Muñiz MD [address] [place] [id number] Consulting Physician Neurology 02/23/24 documented as of this encounter
--- OUTSIDE RECORDS SUMMARY | 2024-09-24 10:32 | XMS_ITS | Clinical Summary ---
Author Organization [facility] Address [address] [place] [address] Phone Care Team Providers Care Fire Extinguisher Mechanic Name Role Phone Blair Paris MD Unavailable [phone] Darwin Marti MD Primary Care Provider [phone] Hao Silvestre MD Unavailable [phone] Carlos Dailey MD Unavailable Saida Mckeon APRN, MANUFACTURING SCHEDULER Unavailable Jessenia Ward APRN, LIGHTING FIXTURES DECORATOR Unavailable + [phone] Dominic Wang MD Unavailable [phone] Butch Muñiz MD Unavailable [phone] Allergies Active Allergy Reactions Criticality Noted Date Comments Cephalosporins Rash Medium 02/08/2020 Codeine Unknown Meperidine Hives 06/15/2015 Fish Allergy Unknown,Other (see Comments) 06/15/2015 Reaction: Unknown, Kiwi Extract Unknown 06/15/2015 Latex Itching 06/15/2015 Penicillins Unknown [place] Extract Unknown 06/15/2015 Sulfa Antibiotics Unknown Tetanus [...] 600 PO) Take by mouth. Activ e albuterol 108 (90 Base) MCG/ACT Aerosol SolutionIndicat ions:Uncomplica jade asthma take 1 Puff by inhalation every 4 hours as needed for Wheezing. takes PRN, hasn't taken for several weeks 8.5 g 2 06/09/20 22 Active dicyclomine (BENTYL) 20 MG Tablet Take 1 Tablet by mouth every 6 hours. 30 Tablet 03/09/20 23 Active pantoprazole (PROTONIX) 40 MG Tablet Delayed Response Take 1 tablet by mouth once daily 90 Tablet 3 11/11/19 24 Active EQ Allergy Relief, Cetirizine, 10 MG Tablet Take 1 tablet by mouth once daily 90 Tablet 3 11/11/19 24 Active Additional Information Patient taking differently: DAILY, Reported on 08/25/2024 hydroCHLOROthia zide (MICROZIDE) 12.5 MG CapsuleIndicati ons:Hypertensio n, essential Take 1 Capsule by mouth daily. 90 Capsule 3 12/04/19 24 Active lisinopril (PRINIVIL, ZESTRIL) 10 MG TabletIndicatio ns:Hypertension , essential Take 1 Tablet by mouth daily. 90 Tablet 3 01/01/20 24 Active gabapentin (NEURONTIN) 300 MG CapsuleIndicati ons:Neuropathy TAKE 1 CAPSULE BY MOUTH THREE TIMES DAILY 270 Capsule 03/21/20 24 Active meloxicam (MOBIC) 15 MG Tablet Take 1 tablet by mouth once daily 90 Tablet 1 06/20/20 24 Active oxyCODONE-aceta minophen (PERCOCET) 5-325 MG Tablet 1 Tablet every 4 hours as needed. 0 07/29/19 25 Active budesonide-form oterol fumarate (SYMBICORT) 160-4.5 MCG/ACT AerosolIndicati ons:Uncomplicat ed asthma, unspecified asthma severity, unspecified whether persistent take 2 Puffs by inhalation 2 times daily. 30.6 g 3 08/25/19 25 Active clopidogrel (PLAVIX) 75 MG Tablet Take 1 tablet by mouth once daily 90 Tablet 2 08/30/19 25 Active meclizine (ANTIVERT) 25 MG Tablet Take 1 tablet by mouth three times daily as needed 270 Tablet 08/30/19 25 Active levothyroxine (SYNTHROID) 50 MCG TabletIndicatio ns:Hypothyroidi sm (acquired) Take 1 tablet by mouth once daily 90 Tablet 09/14/19 25 Active simvastatin (ZOCOR) 40 MG Tablet Take 1 tablet by mouth once daily 90 Tablet 1 09/21/19 25 Active clopidogrel (PLAVIX) 75 MG Tablet Take 1 tablet by mouth once daily 90 Tablet 2 09/08/19 24 025 Discontinued meclizine (ANTIVERT) 25 MG Tablet Take 1 tablet by mouth three times daily as needed 270 Tablet 11/13/19 24 025 Discontinued levothyroxine (SYNTHROID) 50 MCG TabletIndicatio ns:Hypothyroidi sm (acquired) Take 1 tablet by mouth once daily 90 Tablet 06/20/20 24 025 Discontinued simvastatin (ZOCOR) 40 MG Tablet Take 1 tablet by mouth once daily 90 Tablet 06/27/20 24 025 Discontinued Active Problems Problem Noted Date Diagnosed Date Trigger ring finger of left hand 06/02/2024 Lymphocytic colitis 09/27/2023 Anemia 10/08/2021 07/31/2023 Chronic pain syndrome 06/12/2021 Recurrent syncope 01/12/2020 Vestibular migraine 11/18/2019 Allergic rhinitis 07/14/2019 Hypothyroidism due to acquired atrophy of thyroi d 03/18/2016 Neuropathy 08/21/2015 Vitamin D deficiency 08/21/2015 [...] Date Intractable abdominal pain 09/26/2023 0 02/09/2024 longterm current use of 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 07/04/202207/31/2023 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 4 Seizure 06/27/2021 07/31/2023 GERD (gastroesophageal reflux disease) 03/28/202107/31/2023 Degenerative lumbar spinal stenosis 03/28/202107/3102/09/2024 Orbital lesion 03/07/2021 07/31/2023 Chest pain 11/20/2019 01/12/2020 Nausea and vomiting 11/20/2019 01/12/20 20 Syncope and collapse 11/20/2019 020 '[id number]' wit h signs of malnutrition 01/11/2019 01/11/2019 [...] Encounters Date Type Department Care Team Description 09/20/2024 Refill [facility] [address] [place] [address] Darwin Marti MD Medication Refill 09/13/2024 Refill [facility] [address] [place] [address] Darwin Marti MD Medication Refill 08/31/2024 8:50 AM RIM TURNING MACHINE OPERATOR Lab [address] [place] [address] [facility] Hypertension, essential; Hypothyroidism due to acquired atrophy of thyroid; Mixed hyperlipidemia Discharge Disposition: Discharged to home or Selfcare 08/31/2024 Results Follow-Up [address] [address] Darwin Marti MD 08/31/2024 Travel 08/28/[address] [address] Darwin Marti MD Medication Refill 08/25/2024 2:15 PM RIM TURNING MACHINE OPERATOR Office [address] [place] [address] Darwin Marti MD Hypertension, essential (Primary Dx); Mixed hyperlipidemia; Hypothyroidism due to acquired atrophy of thyroid; Arthritis; Gastroesophageal reflux disease without esophagitis; Chronic pain syndrome; Uncomplicated asthma, unspecified asthma severity, unspecified whether persistent; Right ear pain Discharge Disposition: Discharged to home or Selfcare 08/25/2024 Travel 07/14/2024 Telephone [facility] [address] [place] [phone] Darwin Marti MD Medication Management from Last 3 Months Immunizations Immunization Administration Dates Next Due Covid-19, Mrna, Lnp-s, PF, 1 00 mcg/0.5 mL Dose (Moderna) 07/01/2021,11/06/2020,10/09/2020 Influenza Vaccine greater than 3 yrs 05/04/2019, 06/15/2015,03/29/2014 Influenza Vaccine, Quadrivalent, PF 02/07/2023,04/22/2022,03/07/2021,2020,07/15/2018,05/26/2017 Influenza, High-dose, Quadrivalent 03/18/2016 Influenza, Trivalent, Adjuvanted, [...] drink = 0.6 oz pur e alcohol) [facility] Utilities Answer Date Recorded In the past 12 months has [employer], gas, oil, or water [employer] threatened to shut off services in your home? No 08/25/2024 Social Connection and Isolat ion Panel [NHANES] Answer Date Recorded In a typical week, how many times do you talk on the phone with family, friends, or neighbors? More than three times a week 08/25/2024 How often do you get togethe r with friends or relatives? More than three times a week 08/25/2024 How often do you attend chur ch or shinto services? Never 08/25/2024 Do you belong to any clubs o r organizations such as latter day groups, unions, fraternal or athletic groups, or school groups? No 08/25/2024 How often do you attend meet ings of the clubs or organizations you belong to? Never 08/25/2024 Are you , , di vorced, , never , or living with a partner? 08/25/2024 AUDIT-C Answer Date Recorded Q1: How often do you have a drink containing alc ohol? Monthly or less 08/25/2024 Q2: How many drinks containi ng alcohol do you have on a typical day when you are drinking? 1 or 2 08/25/2024 Q3: How often do you have si x or more drinks on one occasion? Never 08/25/2024 Overall Financial Resource Strain (CARDIA) Answe r Date Recorded How hard is it for you to pa y for the very basics like food, housing, medical care, and heating? Not hard at all 08/25/2024 PHQ-2 Answer Date Recorded Total Score - Questions 1-9 0 07/31 [facility] - Occupational Stress Questionnaire Answer Date Recorded Do you feel stress - tense, restless, nervous, or anxious, or unable to sleep at night because your mind is troubled all the time - these days? Not at all 08/25/2024 Exercise Vital Sign Answer Date Recorde d On average, how many days pe r week do you engage in moderate to strenuous exercise (like a brisk walk)? 4 days 08/25/2024 On average, how many minutes do you engage in exercise at this level? 30 min 08/25/2024 Hunger Vital Sign Answer Date Recorded Within the past 12 months, y ou worried that your food would run out before you got the money to buy more. Never true 08/25/19 25 Within the past 12 months, t he food you bought just didn't last and you didn't have money to get more. Never true 08/25/2024 PRAPARE - Transportation Answer Date Re corded In the past 12 months, has l ack of transportation kept you from medical appointments or from getting medications? No 07/31 In the past 12 months, has l ack of transportation kept you from meetings, work, or from getting things needed for daily living? No 08/25/2024 Housing Stability Vital Sign Answer Matt e [...] in a longterm (including now)? No 09/26/2023 Housing Stability Vital Sign Answer Matt e Recorded In the last 12 months, was t here a time when you were not able to pay the mortgage or rent on time? No 08/25/2024 Number of Times Moved in the Last Year Not on fi le 08/25/2024 At any time in the past 12 m [facility], were you homeless or living in a longterm (including now)? No 08/25/2024 Sexually Active Control Partners Comments Not Currently [...] Sign Reading Time Taken Comments Blood Pressure 124/80 08/25/2024 2:18 PM RIM TURNING MACHINE OPERATOR Pulse 74 08/25/2024 2:18 PM RIM TURNING MACHINE OPERATOR Temperature 36.3 C (97.4 F) 08/25/2024 2:18 PM RIM TURNING MACHINE OPERATOR Respiratory Rate 20 08/25/2024 2:18 PM RIM TURNING MACHINE OPERATOR Oxygen Saturation 98% 08/25/2024 2:18 PM RIM TURNING MACHINE OPERATOR Inhaled Oxygen Concentration - - Weight 74.4 kg (164 lb) 08/25/2024 2:18 PM RIM TURNING MACHINE OPERATOR Height 162.6 cm (5' 4 ) 08/25/2024 2:18 PM RIM TURNING MACHINE OPERATOR Body Mass Index 28.15 08/25/2024 2:18 PM RIM TURNING MACHINE OPERATOR Plan of Treatment Upcoming Encounters Date Type Department Care Team (Late st Contact Info) Description 02/20/2025 9:30 AM CDT Office Visit [facility] - [place] [address] [place] [address] Jessenia Ward, AUDIO VISUAL DIRECTOR, LIGHTING FIXTURES DECORATOR [address] [place] [address] 03/02/2025 9:15 AM CDT Office Visit [facility] - [place] [address] [place] [phone] Darwin Marti MD [address] [place] [address] Health Maintenance Due Date Last Done Comments [...] Immunization Discontinued Medical Devices Implanted Type Area Agronomy Teacher Device Identifier Shelf Expiration Date Model / Serial / Lot Bsplt Tib Trthln 3 Kn Prm Beaded Prpt - [id number] Implanted:Qty: 1 on 06/27/2015 by [facility] IMPLANT Right: Knee [employer] / [employer] 01/27/2020 5526-B-30 0 / / [id number] Ins Tib 3 9mm Kn X3 Cndrl Stab Trthln - [id number] Implanted:Qty: 1 on 06/27/2015 by Benji Dickey MD at [facility] IMPLANT Right: Knee [employer] / [employer]TH[employer] 01/27/2020 5531-G-30 9 / / [id number] Bioinductive Arthroscopic Generation 3 Medium - [id number] Implanted:Qty: 1 on 11/30/2017 by Blair Paris MD at [facility] IMPLANT Left: Shoulder [employer] 10/27/2019 2169-2 / 2169-2 / [id number] Tendon Staple Implant - [id number] Implanted:Qty: 1 on 11/30/2017 by Blair Paris MD at [facility] IMPLANT Left: Shoulder [employer] 05/18/2018 2504-1 / 2504-1 / [id number] Semmes Bone 3 W/Arthroscopic Delivery System - [id number] Implanted:Qty: 1 on 11/30/2017 by Blair Paris MD at [facility] IMPLANT Left: Shoulder [employer] 06/30/2018 2503-A / 2503-A / [id number] Asym Metal Backed Patella Implanted:Qty: 1 on 06/27/2015 by Benji Dickey MD at [facility] Right: Knee [employer] / ORTHOPA[employer] 11/26/2019 [id number] / / [id number] Cruciate Retaining Femoral Implanted:Qty: 1 on 06/27/2015 by Benji Dickey MD at [facility] Right: Knee [employer] / ORTHOPAEDICS 04/03/2020 / / [id number] Procedures Procedure Name Priority Date/Time Associated Diagnosis Comments LIPID PANEL Routine 08/31/2024 8:40 AM RIM TURNING MACHINE OPERATOR Mixed hyperlipidemia THYROID STIMULATING HORMONE (TSH) Today 08/31/2024 8:40 AM RIM TURNING MACHINE OPERATOR Hypothyroidism due to acquired atrophy of thyroid BASIC METABOLIC PANEL W/ CALCIUM TOTAL Routine 08/31/2024 8:40 AM RIM TURNING MACHINE OPERATOR Hypertension, essential NEUROSURGY CONSULT 08/23/2024 12 :00 AM RIM TURNING MACHINE OPERATOR XR - ABDOMEN/PELVIS 08/22/2024 1 2:00 AM RIM TURNING MACHINE OPERATOR XR - SPINE 08/22/2024 12:00 AM RIM TURNING MACHINE OPERATOR ORTHOPEDIC PROCEDURE 07/19/2024 12:00 AM RIM TURNING MACHINE OPERATOR OUTPATIENT ABO & RH W/ ANTIBODY SCREEN 07/11/2024 12:00 AM RIM TURNING MACHINE OPERATOR PROTIME (PT) (PROTHROMBIN TIME) 07/11/2024 12:00 AM RIM TURNING MACHINE OPERATOR URINALYSIS (UA) RANDOM 07/11/2024 12:00 AM RIM TURNING MACHINE OPERATOR COMPLETE BLOOD COUNT (CBC) WITH DIFF 07/11/2024 12:00 AM RIM TURNING MACHINE OPERATOR APTT (PTT) 07/11/2024 12:00 AM RIM TURNING MACHINE OPERATOR BASIC METABOLIC PANEL W/ CALCIUM TOTAL 07/11/2024 12:00 AM RIM TURNING MACHINE OPERATOR CULTURE, URINE 07/11/2024 12:00 AM RIM TURNING MACHINE OPERATOR STOOL, OCCULT BLOOD, DIAGNOSTIC, VIA GUAIAC STAT 09/26/2023 11:05 AM CDT HEPATITIS C ANTIBODY Routine 07/31/2023 1:37 PM RIM TURNING MACHINE OPERATOR Encounter for hepatitis C screening test for low risk patient [facility] BONE DENSITOMETRY AXIAL SKELETON Routine 08/09/2021 9:35 AM RIM TURNING MACHINE OPERATOR Postmenopausal [facility] DIAG BILATERAL DIGITAL W CAD W BRI Routine 03/08/2020 11:00 AM CDT Encounter for screening mammogram for breast cancer Abnormal mammogram COLONOSCOPY Routine 07/22/2012 from Last 3 Months or Most Recently Relevant to Health Maintenance Results * THYROID STIMULATING HORMONE (TSH) (08/31/2024 8:40 AM RIM TURNING MACHINE OPERATOR) TSH 2.207 0.300 - 5.000 mIU/L 08/31/2024 1:15 PM RIM TURNING MACHINE OPERATOR [facility] Blood Venipuncture / Unknown 08/31/2024 8:40 AM RIM TURNING MACHINE OPERATOR 08/31/2024 8:40 AM RIM TURNING MACHINE OPERATOR us Darwin Marti MD CHEMISTRY ORDERABLES Sindhu l Result [facility] [address] [place] [address] * (ABNORMAL) LIPID PANEL (08/31/2024 8:40 AM RIM TURNING MACHINE OPERATOR) CHOLESTEROL 205(H) <200 mg/dL 08/31/2024 1:11 PM RIM TURNING MACHINE OPERATOR [facility] TRIGLYCERIDES 101 <150 mg/dL 08/31/2024 1:11 PM [facility] HDL CHOLESTEROL 55 >40 mg/dL 1:11 PM [facility] LDL 130(H) <130 mg/dL 08/31/2024 1:11 PM RIM TURNING MACHINE OPERATOR [facility] VLDL 20 10 - 50 mg/dL 08/31/2024 1:11 PM [facility] CHOL/HDL RATIO 3.7 0.0 - 4.4 08/31/2024 1:11 PM [facility] NON-HDL CHOLESTEROL 150(H) <130 mg/dL 08/31/2024 1:11 PM [facility] IS THE PATIENT REQUIRED TO BE FASTING? Yes 08/31/2024 1:11 PM RIM TURNING MACHINE OPERATOR [facility] HAS THE PATIENT BEEN FASTING? Yes 08/31/2024 1:11 PM [facility] Blood Venipuncture / Unknown 08/31/2024 8:40 AM RIM TURNING MACHINE OPERATOR 08/31/2024 8:40 AM RIM TURNING MACHINE OPERATOR us Darwin Marti MD CHEMISTRY ORDERABLES Sindhu sherrill Result [facility] [address] [place] [address] * (ABNORMAL) BASIC METABOLIC PANEL W/ CALCIUM TOTAL (08/31/2024 8:40 AM RIM TURNING MACHINE OPERATOR) Only the most recent of2 resultswithin the time period is included. SODIUM 139 136 - 145 mmol/L 08/31/2024 1:11 PM RIM TURNING MACHINE OPERATOR [facility] POTASSIUM 4.5 3.5 - 5.1 mmol/L 08/31/2024 1:11 PM [facility] CHLORIDE 105 98 - 107 mmol/L 08/31/2024 1:11 PM [facility] CO2, VENOUS 26 22 - 30 mmol/L 08/31/2024 1:11 PM [facility] ANION GAP 12.5 <18.0 mmol/L 08/31/2024 1:11 PM RIM TURNING MACHINE OPERATOR [facility] GLUCOSE 81 70 - 99 mg/dL 08/31/2024 1:11 PM [facility] BUN 24(H) 10 - 20 mg/dL 08/31/2024 1:11 PM [facility] CREATININE, BLOOD 0.72 0.60 - 1.00 mg/dL 08/31/2024 1:11 PM [facility] BUN/CREATININE RATIO 33(H) 12 - 20 ratio 08/31/2024 1:11 PM [facility] CALCIUM 9.5 8.7 - 10.5 mg/dL 08/31/2024 1:11 PM [facility] IS THE PATIENT REQUIRED TO BE FASTING? No 08/31/2024 1:11 PM [facility] GFR, ESTIMATED >60 >=60 08/31/2024 1:11 PM [facility] Comment: Creatinine Clearance is the preferred criteria for selecting drug dose adjustments in renally impaired patients. The GFR is provided as additional pertinent clinical information. GFR is reported in mL/min/1.73 sq m. Calculation based on the Chronic Kidney Disease Epidemiology Collaboration (CKD- EPI) equation refit without adjustment for race. GFR, EST. >60 >=60 025 1:11 PM RIM TURNING MACHINE OPERATOR [facility] GFR, EST. NONAFRICAN >60 >=60 08/31/2024 1:11 PM RIM TURNING MACHINE OPERATOR [facility] Blood Venipuncture / Unknown 08/31/2024 8:40 AM RIM TURNING MACHINE OPERATOR 08/31/2024 8:40 AM RIM TURNING MACHINE OPERATOR us Darwin Marti MD CHEMISTRY ORDERABLES Sindhu l Result Performing Organization Address [facility] de Phone Number [facility] [address] [place] [address] * NEUROSURGY CONSULT (08/23/2024 12:00 AM RIM TURNING MACHINE OPERATOR) 08/23/2024 us Provider Scan GENERIC SCAN ORDERS CONSULT Sindhu l Result Performing Organization Address [facility] de Phone Number SCAN * XR - SPINE (08/22/2024 12:00 AM RIM TURNING MACHINE OPERATOR) 08/22/2024 us Provider Scan IMG DIAGNOSTIC ORDERABLES Final Result Performing Organization Address [facility] de Phone Number SCAN * XR - ABDOMEN/PELVIS (08/22/2024 12:00 AM RIM TURNING MACHINE OPERATOR) 08/22/2024 us Provider Scan IMG DIAGNOSTIC ORDERABLES Final Result Performing Organization Address [facility] de Phone Number SCAN * ORTHOPEDIC PROCEDURE (07/19/2024 12:00 AM RIM TURNING MACHINE OPERATOR) 07/19/2024 us Provider Scan GEN ORDERS Final Result Performing Organization Address [facility] de Phone Number SCAN * URINALYSIS (UA) RANDOM (07/11/2024 12:00 AM RIM TURNING MACHINE OPERATOR) 07/11/2024 us Provider Scan URINE ORDERABLES Final Result Performing Organization Address [facility] de Phone Number SCAN * APTT (PTT) (07/11/2024 12:00 AM RIM TURNING MACHINE OPERATOR) 07/11/2024 us Provider Scan HEMATOLOGY ORDERABLES Final Resu lt Performing Organization Address [facility] de Phone Number SCAN * PROTIME (PT) (PROTHROMBIN TIME) (07/11/2024 12:00 AM RIM TURNING MACHINE OPERATOR) INR 0.9 SCAN 07/11/2024 us Provider Scan HEMATOLOGY ORDERABLES Final Resu lt Performing Organization Address [facility] de Phone Number SCAN * OUTPATIENT ABO & RH W/ ANTIBODY SCREEN (07/11/2024 12:00 AM RIM TURNING MACHINE OPERATOR) 07/11/2024 us Provider Scan BLOOD BANK ORDERABLES Final Resu lt Performing Organization Address [facility] de Phone Number SCAN * CULTURE, URINE (07/11/2024 12:00 AM RIM TURNING MACHINE OPERATOR) 07/11/2024 us Provider Scan MICROBIOLOGY - GENERAL ORDERABLE S Final Result Performing Organization [facility] de Phone Number SCAN * COMPLETE BLOOD COUNT (CBC) WITH DIFF (07/11/2024 12:00 AM RIM TURNING MACHINE OPERATOR) 07/11/2024 us Provider Scan HEMATOLOGY ORDERABLES Final Resu lt SCAN * Stool, Occult Blood, Diagnostic (09/26/2023 11:05 AM CDT) OCCULT BLOOD DIAG, GI BLEED Negative Negative 09/26/2023 11:15 AM CDT [facility] Stool STOOL SPECIMEN / Unknown Non-Phlebotomy Collection / Unknown 09/26/2023 11:05 AM CDT 09/26/2023 11:12 AM CDT us Roque Hunter APRN, CNP BODY FLUIDS & STOOLS OR DERABLES Final Result Performing Organization Address [facility] Co de Phone Number [facility] [address] [place] [address] * HEPATITIS C ANTIBODY (07/31/2023 1:37 PM RIM TURNING MACHINE OPERATOR) hepatitis C antibody 0.06 <1 S/CO [facility] ARCH [id number] B 07/31/2023 9:41 PM RIM TURNING MACHINE OPERATOR [facility] Comment: Signal/Cutoff ratio < 0.79 is Nondetected Signal/Cutoff ratio 0.80-0.99 is Grayzone Signal/Cutoff ratio > 0.99 is Detected Supplemental assays are recommended if signal/cutoff ratio is >/=1.00. Signal/cutoff ratio result >/= 5.00 is 97% predictive of positivity for recombinant immunoblot assay (RIBA) and will be reported to the [place] Department of Public Health as required. Blood Venipuncture / Unknown 07/31/2023 1:37 PM RIM TURNING MACHINE OPERATOR 07/31/2023 1:37 PM RIM TURNING MACHINE OPERATOR us Darwin Marti MD CHEMISTRY ORDERABLES Sindhu l Result Performing Organization Address City/[facility]/ZIP Co de Phone Number [facility] [address] [place] [address], * [facility] BONE DENSITOMETRY AXIAL SKELETON (08/09/2021 9:35 AM RIM TURNING MACHINE OPERATOR) Anatomical Region Laterality Modality BODY N/A Other 08/09/2021 10:0 9 AM RIM TURNING MACHINE OPERATOR Impressions 08/09/2021 10:12 AM RIM TURNING MACHINE OPERATOR IMPRESSION: Low bone mass Fracture risk assessment [...] of Osteoporosis (http://www.nof.org/professionals/clinical-guidelines) Narrative 08/09/2021 10:12 AM RIM TURNING MACHINE OPERATOR EXAM DESCRIPTION: JAMIE BONE DENSITOMETRY AXIAL SKELETON REASON FOR STUDY: 71 y/o year old F with given history of screening. Agronomy Teacher/Model: Referly (S/N [id number]) CLINICAL INFORMATION: Current height: 5 foot 3.5 [...] Blair Alcaraz M.D. AG: RHIANNON Report ID: [id number] Reading Location: [place] [address] Procedure Note Blair Alcaraz MD - 08/09/2021 EXAM DESCRIPTION: JAMIE BONE DENSITOMETRY AXIAL SKELETON REASON FOR STUDY: 71 y/o year old F with given history of screening. Agronomy Teacher/Model: Referly (S/N [id number]) CLINICAL INFORMATION: Current height: 5 foot 3.5 [...] Electronically signed by Blair Alcaraz M.D. AG: AG Report ID: [id number] Reading Location: [id number] IMPRESSION: Low bone mass Fracture risk assessment [...] to Prevention and Treatment of Osteoporosis (http://www.nof.org/professionals/clinical-guidelines) Luann Cox MD IMG DEXA ORDERABLES Final [...] to exams dated: 02/18/2018, 09/25/2016, and 04/25/2014 [facility]. BREAST TISSUE:The tissue of both breasts is [...] signed by: Gracie Patel M.D. ll/:03/08/2020 11:16:23 Fountain Pen Turner: Landy Vance)(Mag), [facility] letter sent: Normal Exam Reading location: [facility] OVERALL STUDY BIRADS: 1 Negative Procedure Note [...] to exams dated: 02/18/2018, 09/25/2016, and 04/25/2014 [facility]. BREAST TISSUE:The tissue of both breasts is [...] signed by: Gracie Patel M.D. ll/:03/08/2020 11:16:23 Fountain Pen Turner: Landy Ansari(Dillon)(M), [facility] letter sent: Normal Exam Reading location: [facility] OVERALL STUDY BIRADS: 1 Negative us Luann Cox MD IMG MAMMO ORDERABLES Final R esult * HM COLONOSCOPY (07/22/2012) us Any Lewis MD PROCEDURE/MINOR SURGIC AL ORDERABLES Final Result from Last 3 Months or Most Recently Relevant to Health Maintenance Insurance MEDICARE [facility] Advance Directives Documents on File Type Date Recorded Patient Actimize Architect Expl anation POLST/POST/SC DNR 08/19/2018 9:34 AM polst 08/18/2018 Power of Data Operations Manager for Health Care 08/18/2018 1:08 PM [...] measures to stabilize the patient. Care Teams Fire Extinguisher Mechanic Relationship Specialty Start Date End Date Darwin Marti MD [address] [place] [address] PCP - General Internal Medicine 07/31/23 Blair Paris MD [address] [place] [address], [address] [place] [address] Consulting Physician Orthopaedic Sports Medicine 07/31/23 Hao Silvestre MD [address] [place] [address] Consulting Physician Neurological Surgery 07/31/23 Carlos Dailey MD [address] [address] Consulting Physician Colon and Rectal Surgery 10/26/23 Saida Mckeon APRN, MANUFACTURING SCHEDULER [address] [place] [address] Nurse Practitioner Gastroenterology 10/26/23 Jessenia Ward APRN, LIGHTING FIXTURES DECORATOR [address] [place] [address] Nurse Practitioner Neurology 11/17/23 Dominic Wang MD [place], [place] Consulting Physician Pain Medicine-Pain Management 02/09/24 Butch Muñiz MD #2 [place] [address] Consulting Physician Neurology 02/23/24
--- OUTSIDE RECORDS SUMMARY | 2024-09-24 10:32 | XMS_ITS | Encounter Summary ---
Author Organization [facility] Address [address] [place] [address] Phone Care Team Providers Care Composing Room Machinist Name Role Phone Blair Paris MD Unavailable [phone] Jose A Espinosa MD Unavailable [phone] Darwin Marti MD Primary Care Provider [phone] Hao Silvestre MD Unavailable [phone] Carlos Dailey MD Unavailable Saida Mckeon APRN, OBSTETRICS AND GYNECOLOGY PROFESSOR Unavailable Jessenia Ward APRN, [facility] Unavailable + [phone] Hao Silvestre MD Unavailable [phone] Dominic Wang MD Unavailable [phone] Butch Muñiz MD Unavailable [phone] Reason for Visit * Reason Comments Medication Refill Encounter Details Date Type Department Care Team (Late st Contact Info) Description 10/29/2023 Refill [facility] - Family [facility] [address] [place] [address] Darwin Marti MD [address] [place] [address] Medication Refill Social History Tobacco Use Types Packs/Day Years Used Date Smoking Tobacco: Former Cigarettes 2 41.8 1 964 - 04/09/2005 Smokeless Tobacco: Never Alcohol Use Standard Drinks/Week Comments No 0 (1 standard drink = 0.6 oz pur e alcohol) [facility] Utilities Answer Date Recorded In the past 12 months has DialedIN, gas, oil, or water [facility] threatened to shut off services in your [...] often do you attend chur ch or rastafarian services? Never 09/26/2023 Do you belong to any clubs o r organizations such as mu-ism groups, unions, fraternal or athletic groups, or [...] Answer Date Recorded PHQ-2 Score 2 07/14/2019 [facility] - Occupational [...] place to sleep or slept in a half-way (including now)? No 09/26/2023 Sexually Active Control [...] Telephone Encounter - Indra Garcia, RN - 10/29/2023 9:22 AM CDT Refill requested too soon. documented in this encounter Plan of Treatment Upcoming Encounters Date Type Department Care Team (Late st Contact Info) Description 02/20/2025 9:30 AM CDT Office Visit [facility] - Neurology - [place] [address] [place] [address] Jessenia Ward APRN, SALES TRAINEE [address] [place] [address] 03/02/2025 9:15 AM CDT Office Visit [facility] - Primary Care - [place] [address] [place] [address] Darwin Marti MD [address] [place] [address] documented as of this encounter Visit Diagnoses Not on filedocumented in this encounter Additional Health Concerns Infection Onset Date Last Indicated Resolved Time COVID - 19 02/23/2024 02/23/2024 02/23/2024 11:2 8 AM CDT Respiratory Rule-Out 02/23/2024 02/23/2024 024 11:30 AM CDT Assessment Noted Time PHQ-9 Depression Total Score: 0 07/31/19 24 12:53 PM SENIOR MARKETING ANALYST documented as of this encounter Care Teams Composing Room Machinist Relationship Specialty Start Date End Date Darwin Marti MD [address] [place] [address] PCP - General Internal Medicine 07/31/23 Blair Paris MD 4 [facility], [address] [place] [address] Consulting Physician Orthopaedic Sports Medicine 07/31/23 Jose A Espinosa MD 2 [facility] [address] [place] [address] Consulting Physician Pain Medicine-Pain Management 07/31/23 02/08/24 Hao Silvestre MD [address] [address] Consulting Physician Neurological Surgery 07/31/23 Carlos Dailey MD #[address] [address] Consulting Physician Colon and Rectal Surgery 10/26/23 Saida Mckeon APRN, OBSTETRICS AND GYNECOLOGY PROFESSOR [address] [place] [address] Nurse Practitioner Gastroenterology 10/26/23 Jessenia Ward APRN, SALES TRAINEE [address] [place] [address] Nurse Practitioner Neurology 11/17/23 Hao Silvestre MD [address] [place] [address] Consulting Physician Neurological Surgery 02/09/2401/27 Dominic Wang MD [place], [place] Consulting Physician Pain Medicine-Pain Management 02/09/24 Butch Muñiz MD [address] [place] [address] Consulting Physician Neurology 02/23/24 documented as of this encounter
--- OUTSIDE RECORDS SUMMARY | 2024-09-24 10:32 | XMS_ITS | Encounter Summary ---
Author Organization [facility] Address [address] [place] [address] Phone Care Team Providers Care Hydraulic Mechanic Name Role Phone Luann Cox MD Primary Care Provider + [phone] Josiane Pacheco MD Primary Care Provider + [phone] Blair Paris MD Unavailable [phone] Jose A Espinosa MD Unavailable [phone] Darwin Marti MD Primary Care Provider [phone] Hao Silvestre MD Unavailable [phone] Carlos Dailey MD Unavailable Saida Mckeon APRN, TRANSMITTER OPERATOR Unavailable Jessenia Ward APRN, BARTENDER HELPER Unavailable + [phone] Hao Silvestre MD Unavailable [phone] Dominic Wang MD Unavailable [phone] Butch Muñiz MD Unavailable [phone] Reason for Visit * Reason Comments Medication Refill Encounter Details Date Type Department Care Team (Late st Contact Info) Description 07/26/2021 Refill [facility] - Primary Care - [place] [address] [place] [address] Luann Cox MD [address] [place] [address] Medication Refill Social History Tobacco [...] COVID-19? No / Unsure 07/01/2021 11:16 AM GREENHOUSE WORKER documented as of this encounter Miscellaneous Notes * Telephone Encounter - Racquel Campos RN - 07/26/2021 9:30 AM GREENHOUSE WORKER Medication failed the protocol, provider to [...] Dept 06/27/21 Office Visit Luann Cox MD [facility] [address] 03/07/21 Office Visit Luann Cox MD [facility] [address] 09/06/20 Office Visit Luann Cox MD [facility] Showing recent visits within past 365 days and meeting all other requirements Future Appointments Date Type Provider Dept 10/21/[facility] Showing future appointments within next 90 days [...] Dept 06/27/21 Office Visit Luann Cox MD [facility] [address] 03/07/21 Office Visit Luann Cox MD [facility] [address] 09/06/20 Office Visit Luann Cox MD [facility] Showing recent visits within past 365 days and meeting all other requirements Future Appointments Date Type Provider Dept 10/21/21 [facility] Showing future appointments within next 90 days [...] Dept 06/27/21 Office Visit Luann Cox MD [facility] 03/07/21 Office Visit Luann Cox MD [facility] [place] [facility] 09/06/20 Office Visit Luann Cox MD [facility] [facility] Showing recent visits within past 365 days and meeting all other requirements Future Appointments Date Type Provider Dept 10/21/21 Appointment Lab, [facility] [place] [facility] Showing future appointments within next 90 days [...] Dept 06/27/21 Office Visit Luann Cox MD [facility] [address] [facility] 03/07/21 Office Visit Luann Cox MD [facility] 09/06/20 Office Visit Luann Cox MD [facility] [place] [facility] Showing recent visits within past 365 days and meeting all other requirements Future Appointments Date Type Provider Dept 10/21/21 [facility] Showing future appointments within next 90 days and meeting all other requirements NHOUSE WORKER documented in this encounter Plan of Treatment Upcoming Encounters Date Type Department Care Team (Late st Contact Info) Description 02/20/2025 9:30 AM CDT [facility] - [place] [address] [place] [address] Jessenia Ward APRN, BARTENDER HELPER [address] [place] [address] 03/02/2025 9:15 AM CDT Office Visit [facility] - Primary Care - [place] [address] [place] [phone] Darwin Marti MD [address] [place], [place] [id number] documented as of this encounter Visit Diagnoses [...] - 19 05/07/2023 05/07/2023 05/07/2023 9:50 AM GREENHOUSE WORKER COVID - 19 Confirmed 05/07/2023 05/07/2023 023 12:16 AM GREENHOUSE WORKER C. difficile Rule-Out 09/24/2023 09/24/20232023 3:41 PM CDT COVID - 19 09/24/2023 09/24/2023 09/24/2023 11:3 2 AM CDT C. difficile Rule-Out 09/27/2023 09/27/20232023 2:13 PM CDT COVID - 19 02/23/2024 02/23/2024 02/23/2024 11:2 8 AM CDT Respiratory Rule-Out 02/23/2024 02/23/2024 024 11:30 AM CDT Assessment Noted Time PHQ-9 Depression Total Score: 2 07/14/19 20 10:00 AM GREENHOUSE WORKER documented as of this encounter Care Teams Hydraulic Mechanic Relationship Specialty Start Date End Date Luann Cox MD PCP - General Family Medicine 04/15/15 11/02/22 Josiane Pacheco MD [address] [place] [address] PCP - General Family Medicine 11/20/22 07/30/23 Darwin Marti MD [address] [place] [address] PCP - General Internal Medicine 07/31/23 Blair Paris MD 4 [facility] [address] [place] [address] Consulting Physician Orthopaedic Sports Medicine 07/31/23 Jose A Espinosa MD 2 [facility] [address] [place] [address] Consulting Physician Pain Medicine-Pain Management 07/31/23 02/08/24 Hao Silvestre MD [address] [facility] [address] [place] [address] Consulting Physician Neurological Surgery 07/31/23 Carlos Dailey MD #2 [facility] [address] [place] [address] Consulting Physician Colon and Rectal Surgery 10/26/23 Saida Mckeon APRN, TRANSMITTER OPERATOR [address] [place] [address] Nurse Practitioner Gastroenterology 10/26/23 Jessenia Ward APRN, [facility] [address] [place] [address] Nurse Practitioner Neurology 11/17/23 Hao Silvestre MD [address] [address] Consulting Physician Neurological Surgery 02/09/2401/27 Dominic Wang MD [place], [place] Consulting Physician Pain Medicine-Pain Management 02/09/24 Butch Muñiz MD #[address] [place] [address] Consulting Physician Neurology 02/23/24 documented as of this encounter
--- OUTSIDE RECORDS SUMMARY | 2024-09-24 10:32 | XMS_ITS ---
Care Plan - [facility] Created on: September 24, 2024 DIPESH BARNES : 1950 Sex: Female Author Organization [facility] Address [address] [place] [address] Phone Care Team Providers Care Photogrammetric Technician Name Role Phone TERESA DUKES Primary Care Provider [phone]
--- OUTSIDE RECORDS SUMMARY | 2024-09-24 10:32 | XMS_ITS | Encounter Summary ---
Author Organization [facility] Address [address] [place] [address] Phone Care Team Providers Care Vinyl Installer Name Role Phone Luann Cox MD Primary Care Provider + [phone] Josiane Pacheco MD Primary Care Provider + [phone] Blair Paris MD Unavailable [phone] Jose A Espinosa MD Unavailable [phone] Darwin Marti MD Primary Care Provider [phone] Hao Silvestre MD Unavailable [phone] Carlos Dailey MD Unavailable Saida Mckeon APRN, VETERINARY SURGEON Unavailable Jessenia Ward APRN, CLAY DRY PRESS MIXER OPERATOR Unavailable + [phone] Hao Silvestre MD Unavailable [phone] Dominic Wang MD Unavailable Butch Muñiz MD Unavailable [phone] Reason for Visit * Reason Comments Medication Refill Encounter Details Date Type Department Care Team (Late st Contact Info) Description 01/02/2021 [facility] [place] [address] [place] [phone] Luann Cox MD [address] [place] [address] Medication Refill Social History Tobacco [...] Dept 09/06/20 Office Visit Luann Cox MD [facility] 07/24/20 Office Visit Luann Cox MD [facility] 01/12/20 Office Visit Luann Cox MD [facility] Showing recent visits within past 365 days and meeting all other requirements Future Appointments Date Type Provider Dept 03/07/21 Appointment [facility] Spinal stenosis, lumbar region, with neurogenic claudication [facility] Luann Cox MD 5 months ago Uncomplicated asthma [facility] Luann Cox MD 11 months ago Essential hypertension [facility] Luann Cox MD 1 year ago Essential hypertension [facility] Luann Cox MD 1 year ago Essential hypertension [facility] Luann Cox MD Upcoming Appointments Future Appointments In 2 months Luann Cox MD [facility] - Recent and Past Visits Recent Visits Date Type Provider Dept 09/06/20 Office Visit Luann Cox MD [facility] 07/24/20 Office Visit Luann Cox MD [facility] 01/12/20 Office Visit Launn Cox MD [facility] Showing recent visits within past 460 days with a meds authorizing provider and meeting all other requirements Future Appointments Date Type Provider Dept 03/07/21 Appointment [facility] Dept 09/06/20 Office Visit Luann Cox MD [facility] 07/24/20 Office Visit Luann Cox MD [facility] 01/12/20 Office Visit Luann Cox MD [facility] Showing recent visits within past 365 days and meeting all other requirements Future Appointments Date Type Provider Dept 03/07/21 Appointment Luann Cox MD [facility] Showing future appointments within next 90 days [...] Dept 09/06/20 Office Visit Luann Cox MD [facility] 07/24/20 Office Visit [facility] 01/12/20 Office Visit Luann Cox MD [facility] Showing recent visits within past 365 days and meeting all other requirements Future Appointments Date Type Provider Dept 03/07/21 Appointment Luann Cox MD [facility] Showing future appointments within next 90 days and meeting all other requirements [facility] G[facility]: Antiulcer - Proton Pump Inhibitors Passed - 01/02/2021 12:58 PM Passed - Valid encounter within last 12 months Past Office Visits Recent Outpatient Visits 3 months ago Spinal stenosis, lumbar region, with neurogenic claudication [facility] Luann Cox MD 5 months ago Uncomplicated asthma [facility] Luann Cox MD 11 months ago Essential hypertension [facility] Luann Cox MD 1 year ago Essential hypertension [facility] Luann Cox MD 1 year ago Essential hypertension [facility] Luann Cox MD Upcoming Appointments Future Appointments In 2 months Luann Cox MD [facility] [place] - Recent and Past Visits Recent Visits Date Type Provider Dept 09/06/20 Office Visit [facility] 07/[facility]20 Office Visit Luann Cox MD [facility] 01/12/20 Office Visit Luann Cox MD [facility] Showing recent visits within past 460 days with a meds authorizing provider and meeting all other requirements Future Appointments Date Type Provider Dept 03/07/21 Appointment Luann Cox MD [facility] Showing future appointments within next 90 days with a meds authorizing provider and meeting all other requirements documented in this encounter Plan of Treatment Upcoming Encounters Date Type Department Care Team (Late st Contact Info) Description 02/20/2025 9:30 AM CDT Office Visit [facility] [address] [place] [address] Jessenia Ward, PINION SORTER, CLAY DRY PRESS MIXER OPERATOR [address] [place] [address] 03/02/2025 9:15 AM CDT Office Visit [facility] - Primary Care - [place] [address] [place] [address] Darwin Marti MD [address] [place] [address] documented as of this encounter Visit Diagnoses [...] 19 05/07/2023 05/07/2023 05/07/2023 9:50 AM DATA GOVERNANCE CONSULTANT COVID - 19 Confirmed 05/07/2023 05/07/2023 023 12:16 AM DATA GOVERNANCE CONSULTANT C. difficile Rule-Out 09/24/2023 09/24/20232023 3:41 PM CDT COVID - 19 09/24/2023 09/24/2023 09/24/2023 11:3 2 AM CDT C. difficile Rule-Out 09/27/2023 09/27/20232023 2:13 PM CDT COVID - 19 02/23/2024 02/23/2024 02/23/2024 11:2 8 AM CDT Respiratory Rule-Out 02/23/2024 02/23/2024 024 11:30 AM CDT Assessment Noted Time PHQ-9 Depression Total Score: 2 07/14/19 20 10:00 AM DATA GOVERNANCE CONSULTANT documented as of this encounter Care Teams Vinyl Installer Relationship Specialty Start Date End Date Luann Cox MD PCP - General Family Medicine 04/15/15 11/02/22 Josiane Pacheco MD [address] [place] [address] PCP - General Family Medicine 11/20/22 07/30/23 Darwin Marti MD [address] [place] [address] PCP - General Internal Medicine 07/31/23 Blair Paris MD [address] [address] Consulting Physician Orthopaedic Sports Medicine 07/31/23 Jose A Espinosa MD [address] [address] Consulting Physician Pain Medicine-Pain Management 07/31/23 02/08/24 Hao Silvestre MD [address] [address] Consulting Physician Neurological Surgery 07/31/23 Carlos Dailey MD [address] [address] Consulting Physician Colon and Rectal Surgery 10/26/23 Saida Mckeon APRN, VETERINARY SURGEON [address] [place] [address] Nurse Practitioner Gastroenterology 10/26/23 Jessenia Ward APRN, CLAY DRY PRESS MIXER OPERATOR [address] [place] [address] Nurse Practitioner Neurology 11/17/23 Hao Silvestre MD [address] [address] Consulting Physician Neurological Surgery 02/09/2401/27 Dominic Wang MD [place], [place] Consulting Physician Pain Medicine-Pain Management 02/09/24 Butch Muñiz MD #[address] [place] [address] Consulting Physician Neurology 02/23/24 documented as of this encounter
--- OUTSIDE RECORDS SUMMARY | 2024-09-24 10:32 | XMS_ITS | Referral Summary ---
Author Organization [facility] Address [address] [place] [address] Care Team Providers Care Extrusion Line Operator Name Role Phone Luann Cox MD Primary Care Provider [phone] Encounters Date Type Department Care Team Description 07/14/2024 11:15 AM ELECTRONICS WORKER Office Visit [facility] Orthopedic and Sports Medicine [address] [place] [phone] Ev Campos PA Aftercare following surgery of the musculoskeletal system (Primary Dx) 07/01/2024 Telephone [facility] Orthopedics and Sports Medicine [address] [facility] [address] [place] [phone] Ernst Drummond ATC 06/30/2024 7:45 AM ELECTRONICS WORKER - 06/30/2024 8:30 AM ELECTRONICS WORKER Surgery [facility] Operating Room [address] [place] [address] Blair Paris MD Left ring trigger finger release 06/30/2024 7:01 AM ELECTRONICS WORKER - 06/30/2024 8:39 AM ELECTRONICS WORKER Hospital Encounter [facility] Operating Room [address] [place] [address] Blair Paris MD Trigger ring finger of [...] Vomiting, Penicillins Other (See comments) Reaction: Unknown, [place] Sulfa (Sulfonamide Antibiotics) Other (See comments) Reaction: [...] in the evening 0 0 5 Active agtkkshq-baif-g in-folic acid (multivitamin-i wdu-fvfjwqug-aj lic acid) 3,500-18-0.4 unit-mg-mg tablet,chewable 0 0 [...] pain without sciatica 07/04/2022 Lumbar radiculopathy 07/04/2022 rat exterminator current use of 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 3 Insomnia secondary [...] on file Legal Sex Female 6:41 PM ELECTRONICS WORKER Gender Identity Not on file Sexual Orientation Not on file Last Filed Vital Signs Vital Sign Reading Time Taken Comments Blood Pressure 132/93 07/14/2024 11:06 AM ELECTRONICS WORKER Pulse 99 07/14/2024 11:06 AM ELECTRONICS WORKER Temperature 36.9 C (98.4 F) 06/30/2024 8:25 AM ELECTRONICS WORKER Respiratory Rate 0 06/30/2024 8:30 AM ELECTRONICS WORKER Oxygen Saturation 99% 06/30/2024 8:25 AM ELECTRONICS WORKER Inhaled Oxygen Concentration - - Weight 75.8 kg (167 lb) 07/14/2024 11:06 AM ELECTRONICS WORKER Height 162.6 cm (5' 4 ) 07/14/2024 11:06 AM ELECTRONICS WORKER Body Mass Index 28.67 07/14/2024 11:06 AM ELECTRONICS WORKER Plan of Treatment Not on file Procedures Procedure Name Priority Date/Time Associated Diagnosis Comments RELEASE TRIGGER FINGER 06/30/2024 7:35 AM ELECTRONICS WORKER Trigger ring finger of left hand DEXA [...] PM CDT DEXA Bone Density Axial Acc#: [id number] DATE OF EXAM: Apr 23 2017 EXAM: [...] Edited by: Gretchen Ray Electronically signed by: Dianeyls Solorzano M.D. Interpreting Physician: DIANELYS SOLORZANO M.D. Read on: Apr 23 2017 3:34P Transcribed by: [facility] On: Apr 23 2017 4:05P Approved Electronically by: DIANELYS SOLORZANO M.D. on: Apr 23 2017 4:05P Ordering DR: JAY WYLIE Attending DR: JAY WYLIE Attending: JAY WYLIE Requesting: JAY WYLIE Requesting Attending Fax: -- Attending ID: [id number] Requesting ID: [id number] Report To 1 ID: [id number] Report To 1 Name: JAY WYLIE Report To 1 FAX: -- [place] [facility] Order #: [id number] Procedure Note Miscellaneous, Not In File - 04/23/2017 DEXA Bone Density Axial Acc#: [id number] DATE OF EXAM: Apr 23 2017 EXAM: [...] on: Apr 23 2017 3:34P Transcribed by: [facility] On: Apr 23 2017 4:05P Approved Electronically by: DIANELYS SOLORZANO M.D. on: Apr 23 2017 4:05P Ordering DR: JAY WYLIE Attending DR: JAY WYLIE Attending: JAY WYLIE Requesting: JAY WYLIE Requesting Attending Fax: -- Attending ID: [id number] Requesting ID: [id number] Report To 1 ID: [id number] Report To 1 Name: JAY WYLIE Report To 1 FAX: -- [employer] Order #: [id number] Jay Wylie MD IMG DXA PROCEDURES Final R esult from Last 3 Months or Most Recently Relevant to Health Maintenance Insurance MEDICARE [facility] [place] [address] MEDICARE [facility] [place] [address] Care Teams Extrusion Line Operator Relationship Specialty Start Date End Date Luann Cox MD PCP - General 05/08/09
--- OUTSIDE RECORDS SUMMARY | 2024-09-24 10:32 | XMS_ITS | Clinical Summary ---
Author Organization [facility] Medical Office Building B Address [address] [place] [address] Care Team Providers Care Compressor Station Chief Engineer Name Role Phone Luann Cox MD Primary Care Provider [phone] Allergies Active Allergy Reactions Criticality Noted Date [...] Vomiting, Penicillins Other (See comments) Reaction: Unknown, Rombauer Sulfa (Sulfonamide Antibiotics) Other (See comments) Reaction: [...] in the evening 0 0 5 Active rbfzqvud-ykro-f in-folic acid (multivitamin-i pks-obpnkmus-ou lic acid) 3,500-18-0.4 unit-mg-mg tablet,chewable 0 0 [...] sciatica 07/04/2022 Lumbar radiculopathy 07/04/2022 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 use of 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 3 Insomnia secondary [...] Department Care Team Description 07/14/2024 11:15 AM SYSTEMS ADMINISTRATION ANALYST Office Visit [facility] Orthopedic [facility] [place] [address] Ev Campos PA Aftercare following surgery of the musculoskeletal system (Primary Dx) 07/01/2024 Telephone [facility]oped[facility] Medicine [address] [facility] [address] [place] [address] Ernst Drummond ATC 06/30/2024 7:45 AM SYSTEMS ADMINISTRATION ANALYST - 06/30/2024 8:30 AM SYSTEMS ADMINISTRATION ANALYST Surgery [facility] Operating Room [address] [place] [address] Blair Paris MD Left ring trigger finger release 06/30/2024 7:01 AM SYSTEMS ADMINISTRATION ANALYST - 06/30/2024 8:39 AM SYSTEMS ADMINISTRATION ANALYST Hospital Encounter [facility] Operating Room 1 [place] [address] Blair Paris MD Trigger ring finger of [...] on file Legal Sex Female 6:41 PM SYSTEMS ADMINISTRATION ANALYST Gender Identity Not on file Sexual Orientation Not on file Obstetrics History Last Filed Vital Signs Vital Sign Reading Time Taken Comments Blood Pressure 132/93 07/14/2024 11:06 AM SYSTEMS ADMINISTRATION ANALYST Pulse 99 07/14/2024 11:06 AM SYSTEMS ADMINISTRATION ANALYST Temperature 36.9 C (98.4 F) 06/30/2024 8:25 AM SYSTEMS ADMINISTRATION ANALYST Respiratory Rate 0 06/30/2024 8:30 AM SYSTEMS ADMINISTRATION ANALYST Oxygen Saturation 99% 06/30/2024 8:25 AM SYSTEMS ADMINISTRATION ANALYST Inhaled Oxygen Concentration - - Weight 75.8 kg (167 lb) 07/14/2024 11:06 AM SYSTEMS ADMINISTRATION ANALYST Height 162.6 cm (5' 4 ) 07/14/2024 11:06 AM SYSTEMS ADMINISTRATION ANALYST Body Mass Index 28.67 07/14/2024 11:06 AM SYSTEMS ADMINISTRATION ANALYST Plan of Treatment Health Maintenance Due Date [...] Comments RELEASE TRIGGER FINGER 06/30/2024 7:35 AM SYSTEMS ADMINISTRATION ANALYST Trigger ring finger of left hand DEXA [...] PM CDT DEXA Bone Density Axial Acc#: [id number] DATE OF EXAM: Apr 23 2017 EXAM: [...] on: Apr 23 2017 3:34P Transcribed by: [facility] On: Apr 23 2017 4:05P Approved Electronically by: DIANELYS SOLORZANO M.D. on: Apr 23 2017 4:05P Ordering DR: JAY WYLIE Attending DR: JAY WYLIE Attending: JAY WYLIE Requesting: JAY WYLIE Requesting Attending Fax: -- Attending ID: [id number] Requesting ID: [id number] Report To 1 ID: [id number] Report To 1 Name: JAY WYLIE Report To 1 FAX: -- [facility] Order #: [id number] Procedure Note Miscellaneous, Not In File - 04/23/2017 DEXA Bone Density Axial Acc#: [id number] DATE OF EXAM: Apr 23 2017 EXAM: [...] WYLIE Requesting Attending Fax: -- Attending ID: [id number] Requesting ID: [id number] Report To 1 ID: [id number] Report To 1 Name: JAY WYLIE Report To 1 FAX: -- [facility] Order #: [id number] Jay Wylie MD IMG DXA PROCEDURES Final R esult from Last 3 Months or Most Recently Relevant to Health Maintenance Insurance MEDICARE [place] [place] [address] MEDIC[place] [address] Care Teams Compressor Station Chief Engineer Relationship Specialty Start Date End Date Luann Cox MD PCP - General 05/08/09
--- OUTSIDE RECORDS SUMMARY | 2024-09-24 10:32 | XMS_ITS ---
Author Organization [facility] Address [address] [place] [address] Phone Care Team Providers Care Family Manager Name Role Phone DIMITRY DUKESOTHY Mag Primary Care Provider [phone] Plan of Treatment No Plan of Treatment Recorded Assessments Includes: Assessments for all patient encounters No Assessments Recorded Medical Equipment - Implanted Devices Includes: Current and historical Devices No Medical Equipment Recorded Medications Administered Includes: Administered Medications in patient's chart No Administered Medications Recorded Results Includes: Results from 09/25/2023 through 09/24/2024 No Results Recorded For Specified Dates History [...] Dates 1 - MEDICARE PART A CLAIMS/NGS [id number] DIPESH BARNES Self Clinical Notes Includes: Signed Clinical Notes starting from 07/18/2022 No Clinical Notes Recorded
--- OUTSIDE RECORDS SUMMARY | 2024-09-24 10:32 | XMS_ITS | Encounter Summary ---
Author Organization [facility] Address [address] [place] [address] Phone Care Team Providers Care Pillowcase Cutter Name Role Phone Luann Cox MD Primary Care Provider + [phone] Josiane Pacheco MD Primary Care Provider + [phone] Blair Paris MD Unavailable [phone] Jose A Espinosa MD Unavailable [phone] Darwin Marti MD Primary Care Provider [phone] Hao Silvestre MD Unavailable +[phone] Carlos Dailey MD Unavailable Saida Mckeon APRN, CORPORATE TECHNICAL RECRUITER Unavailable Jessenia Ward APRN, GENERAL HANDLING SUPERVISOR Unavailable + [phone] Hao Silvestre MD Unavailable +[phone] Dominic Wang MD Unavailable [phone] Butch Muñiz MD Unavailable +[phone] Reason for Visit * Reason Comments Medication Refill Encounter Details Date Type Department Care Team (Late st Contact Info) Description 01/27/2021 Refill [facility] - Primary Care - [place] [address] [place] [address] Luann Cox MD [address] [place] [address] Medication Refill Social History Tobacco [...] Spinal stenosis, lumbar region, with neurogenic claudication [facility] - Family Medicine - [facility] Luann Cox MD 6 months ago Uncomplicated asthma [facility] Luann Cox MD 1 year ago Essential hypertension [facility] Luann Cox MD 1 year ago Essential hypertension [facility] Luann Cox MD 2 years ago Essential hypertension [facility] Luann Cox MD Upcoming Appointments Future Appointments In 1 month Luann Cox MD [facility] SOLDERER ASSEMBLER - Recent and Past Visits Recent Visits Date Type Provider Dept 09/06/20 Office Visit Luann Cox MD [facility] 07/24/20 Office Visit Luann Cox MD [facility] 01/12/20 Office Visit Luann oCx MD [facility] Showing recent visits within past 460 days with a meds authorizing provider and meeting all other requirements Future Appointments Date Type Provider Dept 03/07/21 Appointment Luann Cox MD [facility] Showing future appointments within next 90 days [...] Dept 09/06/20 Office Visit Luann [facility] MD [facility] 07/[facility]/20 Office Visit Luann Cox MD [facility] Showing recent visits within past 365 days and meeting all other requirements Future Appointments Date Type Provider Dept 03/07/21 Appointment Luann Cox MD [facility] Showing future appointments within next 90 days and meeting all other requirements documented in this encounter Plan of Treatment Upcoming Encounters Date Type Department Care Team (Late st Contact Info) Description 02/20/2025 9:30 AM CDT [facility] [place] [address] [place] [address] Jessenia Ward, WIND FARM SUPPORT SPECIALIST, GENERAL HANDLING SUPERVISOR [address] [place] [address] 03/02/2025 9:15 AM CDT Office Visit [facility] - Primary Care - [place] [address] [place] [address] Darwin Marti MD [address] [place] [address] documented as of this encounter Visit Diagnoses Diagnosis Neuropathy Mononeuritis of unspecified site documented in this encounter Additional Health Concerns Infection Onset Date Last Indicated Resolved Time ESBL 08/16/2018 08/16/2018 09/28/2023 9:03 AM CDT COVID - 19 03/09/2023 03/09/2023 03/19/2023 12:1 6 AM CDT Respiratory Rule-Out 03/09/2023 03/09/2023 023 2:09 AM CDT COVID - 19 05/07/2023 05/07/2023 05/07/2023 9:50 AM SUGAR TRUCKER COVID - 19 Confirmed 05/07/2023 05/07/2023 023 12:16 AM SUGAR TRUCKER C. difficile Rule-Out 09/24/2023 09/24/20232023 3:41 PM CDT COVID - 19 09/24/2023 09/24/2023 09/24/2023 11:3 2 AM CDT C. difficile Rule-Out 09/27/2023 09/27/20232023 2:13 PM CDT COVID - 19 02/23/2024 02/23/2024 02/23/2024 11:2 8 AM CDT Respiratory Rule-Out 02/23/2024 02/23/2024 024 11:30 AM CDT Assessment Noted Time PHQ-9 Depression Total Score: 2 07/14/19 20 10:00 AM SUGAR TRUCKER documented as of this encounter Care Teams Pillowcase Cutter Relationship Specialty Start Date End Date Luann Cox MD PCP - General Family Medicine 04/15/15 11/02/22 Josiane Pacheco MD [address] [place] [address] PCP - General Family Medicine 11/20/22 07/30/23 Darwin Marti MD [address] [place] [address] PCP - General Internal Medicine 07/31/23 Blair Paris MD 4 [facility] [address] [place] [address] Consulting Physician Orthopaedic Sports Medicine 07/31/23 Jose A Espinosa MD 2 [facility] [address] [place] [address] Consulting Physician Pain Medicine-Pain Management 07/31/23 02/08/24 Hao Silvestre MD [address] [address] Consulting Physician Neurological Surgery 07/31/23 Carlos Dailey MD [address]2 [facility] [address] [place] [address] Consulting Physician Colon and Rectal Surgery 10/26/23 Saida Mckeon APRN, CORPORATE TECHNICAL RECRUITER [address] [place] [address] Nurse Practitioner Gastroenterology 10/26/23 Jessenia Ward APRN, GENERAL HANDLING SUPERVISOR [address] [place] [address] Nurse Practitioner Neurology 11/17/23 Hao Silvestre MD [address] [address] Consulting Physician Neurological Surgery 02/09/2401/27 Dominic Wang MD [place], [place] Consulting Physician Pain Medicine-Pain Management 02/09/24 Butch Muñiz MD [address] [place] [address] Consulting Physician Neurology 02/23/24 documented as of this encounter
--- OUTSIDE RECORDS SUMMARY | 2024-09-24 10:32 | XMS_ITS | Encounter Summary ---
Author Organization [facility] Address [address] [place] [address] Phone Care Team Providers Care Dust Box Worker Name Role Phone Luann Cox MD Primary Care Provider + [phone] Josiane Pacheco MD Primary Care Provider + [phone] Blair Paris MD Unavailable [phone] Jose A Espinosa MD Unavailable [phone] Darwin Marti MD Primary Care Provider +[phone] Hao Silvestre MD Unavailable [phone] Carlos Dailey MD Unavailable Saida Mckeon APRN, PROOF MACHINE OPERATOR SUPERVISOR Unavailable Jessenia Ward APRN, SUPERVISOR SHIPPING ROOM Unavailable +- [phone] Hao Silvestre MD Unavailable +[phone] Dominic Wang MD Unavailable [phone] Butch Muñiz MD Unavailable +[phone] Reason for Visit * Reason Comments Medication Refill Encounter Details Date Type Department Care Team ([facility] Contact Info) Description 05/12/20[facility] [place] [address] [place] [address] Luann Cox MD [address] [place] [address] Medication Refill Social History Tobacco [...] no refill protocol information for this order EXTRUSION OPERATOR documented in this encounter Plan of Treatment Upcoming Encounters Date Type Department Care Team ([facility] Contact Info) Description 02/20/2025 9:30 AM CDT [facility] [place] [address] [place] [address] Jessenia Ward, WINEMAKER, SUPERVISOR SHIPPING ROOM [address] [place] [address] 03/02/2025 9:15 AM CDT Office Visit [facility] - Primary Care - [place] [address] [place] [address] Darwni Marti MD [address] [place] [address] documented as of this encounter Visit Diagnoses Not on filedocumented in this encounter Additional Health Concerns Infection Onset Date Last Indicated Resolved Time ESBL 08/16/2018 08/16/2018 09/28/2023 9:03 AM CDT COVID - 19 03/09/2023 03/09/2023 03/19/2023 12:1 6 AM CDT Respiratory Rule-Out 03/09/2023 03/09/2023 023 2:09 AM CDT COVID - 19 05/07/2023 05/07/2023 05/07/2023 9:50 AM SEAL EXTRUSION OPERATOR COVID - 19 Confirmed 05/07/2023 05/07/2023 023 12:16 AM SEAL EXTRUSION OPERATOR C. difficile Rule-Out 09/24/2023 09/24/20232023 3:41 PM CDT COVID - 19 09/24/2023 09/24/2023 09/24/2023 11:3 2 AM CDT C. difficile Rule-Out 09/27/2023 09/27/20232023 2:13 PM CDT COVID - 19 02/23/2024 02/23/2024 02/23/2024 11:2 8 AM CDT Respiratory Rule-Out 02/23/2024 02/23/2024 024 11:30 AM CDT Assessment Noted Time PHQ-9 Depression Total Score: 2 07/14/19 20 10:00 AM SEAL EXTRUSION OPERATOR documented as of this encounter Care Teams Dust Box Worker Relationship Specialty Start Date End Date Luann Cox MD PCP - General Family Medicine 04/15/15 11/02/22 Josiane Pacheco MD [address] [place] [address] PCP - General Family Medicine 11/20/22 07/30/23 Darwin Marti MD [address] [place] [address] PCP - General Internal Medicine 07/31/23 Blair Paris MD 4 [facility] [address] [place] [address] Consulting Physician Orthopaedic Sports Medicine 07/31/23 Jose A Espinosa MD [address] [address] Consulting Physician Pain Medicine-Pain Management 07/31/23 02/08/24 Hao Silvestre MD [address] [address] Consulting Physician Neurological Surgery 07/31/23 Carlos Dailey MD [address] [address] Consulting Physician Colon and Rectal Surgery 10/26/23 Saida Mckeon APRN, PROOF MACHINE OPERATOR SUPERVISOR [address] [place] [address] Nurse Practitioner Gastroenterology 10/26/23 Jessenia Ward APRN, SUPERVISOR SHIPPING ROOM [address] [place] [address] Nurse Practitioner Neurology 11/17/23 Hao Silevstre MD [address] [address] Consulting Physician Neurological Surgery 02/09/2401/27 Dominic Wang MD [place], [place] Consulting Physician Pain Medicine-Pain Management 02/09/24 Butch Muñiz MD [address] [place] [address] Consulting Physician Neurology 02/23/24 documented as of this encounter
--- OUTSIDE RECORDS SUMMARY | 2024-09-24 10:32 | XMS_ITS | Encounter Summary ---
Author Organization [facility] Address [address] [place] [address] Phone Care Team Providers Care Dental Amalgam Processor Name Role Phone Luann Cox MD Primary Care Provider + [phone] Josiane Pacheco MD Primary Care Provider + [phone] Blair Paris MD Unavailable [phone] Jose A Espniosa MD Unavailable [phone] Darwin Marti MD Primary Care Provider +[phone] Hao Silvestre MD Unavailable [phone] Carlos Dailey MD Unavailable Saida Mckeon APRN, DIAL MARKER Unavailable Jessenia Ward APRN, CAN LINE EXAMINER Unavailable [phone] Hao Silvestre MD Unavailable Dominic Wang MD Unavailable [phone] Butch Muñiz MD Unavailable Reason for Visit * Reason Comments Medication Refill Encounter Details Date Type Department Care Team (Late Contact Info) Description [facility] [place] [address] [place] [address] Luann Cox MD [address] [place] [address] Medication Refill Social History Tobacco [...] Description 02/20/2025 9:30 AM CDT Office Visit [facility] Neurology [facility] [address] [place] [address] Jessenia Ward, DOSIMETRIST, CAN LINE EXAMINER [address] [place] [address] 03/02/2025 9:15 AM CDT Office Visit [facility] [place] [address] [place] [address] Darwin Marti MD [address] [place] [address] documented as of this encounter Visit Diagnoses [...] - 19 05/07/2023 05/07/2023 05/07/2023 9:50 AM THOROUGHBRED HORSE FARM MANAGER COVID - 19 Confirmed 05/07/2023 05/07/2023 023 12:16 AM THOROUGHBRED HORSE FARM MANAGER C. difficile Rule-Out 09/24/2023 09/24/20232023 3:41 PM CDT COVID - 19 09/24/2023 09/24/2023 09/24/2023 11:3 2 AM CDT C. difficile Rule-Out 09/27/2023 09/27/20232023 2:13 PM CDT COVID - 19 02/23/2024 02/23/2024 02/23/2024 11:2 8 AM CDT Respiratory Rule-Out 02/23/2024 02/23/2024 024 11:30 AM CDT Assessment Noted Time PHQ-9 Depression Total Score: 2 07/14/19 20 10:00 AM THOROUGHBRED HORSE FARM MANAGER documented as of this encounter Care Teams Dental Amalgam Processor Relationship Specialty Start Date End Date Luann Cox MD PCP - General Family Medicine 04/15/15 11/02/22 Josiane Pacheco MD [address] [place] [address] PCP - General Family Medicine 11/20/22 07/30/23 Darwin Marti MD [address] [place] [address] PCP - General Internal Medicine 07/31/23 Blair Paris MD 4 [facility] [address] [place] [address] Consulting Physician Orthopaedic Sports Medicine 07/31/23 Jose A Espinosa MD 2 [facility] [address] [place] [address] Consulting Physician Pain Medicine-Pain Management 07/31/23 02/08/24 Hao Silvestre MD [address] [address] Consulting Physician Neurological Surgery 07/31/23 Carlos Dailey MD [address] [address] Consulting Physician Colon and Rectal Surgery 10/26/23 Saida Mckeon APRN, DIAL MARKER [address] [place] [address] Nurse Practitioner Gastroenterology 10/26/23 Jessenia Ward APRN, CAN LINE EXAMINER [address] [place] [address] Nurse Practitioner Neurology 11/17/23 Hao Silvestre MD [address] [address] Consulting Physician Neurological Surgery 02/09/2401/27 Dominic Wang MD [place], [place] Consulting Physician Pain Medicine-Pain Management 02/09/24 Butch Muñiz MD [address] [place] [address] Consulting Physician Neurology 02/23/24 documented as of this encounter
--- OUTSIDE RECORDS SUMMARY | 2024-09-24 10:32 | XMS_ITS | Encounter Summary ---
Author Organization [facility] Address [address] [place] [address] Phone Care Team Providers Care Associate Professor Physician Name Role Phone Josiane Pacheco MD Primary Care Provider +[phone] Blair Paris MD Unavailable [phone] Jose A Espinosa MD Unavailable [phone] Darwin Marti MD Primary Care Provider +[phone] Hao Silvestre MD Unavailable [phone] Carlos Dailey MD Unavailable Saida Mckeon APRN, VENDING MACHINE FILLER Unavailable Jessenia Ward APRN, NURSING INSTRUCTOR Unavailable + [phone] Hao Silvestre MD Unavailable Dominic Wang MD Unavailable +[phone] Butch Muñiz MD Unavailable [phone] Reason for Visit * Reason Comments Medication Refill Encounter Details Date Type Department Care Team ([facility] Contact Info) Description 03/31/2023 Refill [facility] - Primary Care - [place] [address] [place] [address] Josiane Pacheco MD [address] [place] [address] Medication Refill Social History Tobacco Use Types [...] Upcoming Encounters Date Type Department Care Team ([facility] Contact Info) Description 02/20/2025 9:30 AM CDT Office Visit [facility] Neurology [facility] [address] [place] [address] Jessenia Ward, CRIMINAL JUDGE, NURSING INSTRUCTOR [address] [place] [address] 03/02/2025 9:15 AM CDT Office Visit [facility] - Primary Care - [place] [address] [place] [address] Darwin Marti MD [address] [place] [address] documented as of this encounter Visit Diagnoses Diagnosis Spinal stenosis, lumbar region, with neurogenic claudication documented in this encounter Additional Health Concerns Infection Onset Date Last Indicated Resolved Time ESBL 08/16/2018 08/16/2018 09/28/2023 9:03 AM CDT COVID - 19 05/07/2023 05/07/2023 05/07/2023 9:50 AM DUTY ENGINEER COVID - 19 Confirmed 05/07/2023 05/07/2023 023 12:16 AM DUTY ENGINEER C. difficile Rule-Out 09/24/2023 09/24/20232023 3:41 PM CDT COVID - 19 09/24/2023 09/24/2023 09/24/2023 11:3 2 AM CDT C. difficile Rule-Out 09/27/2023 09/27/20232023 2:13 PM CDT COVID - 19 02/23/2024 02/23/2024 02/23/2024 11:2 8 AM CDT Respiratory Rule-Out 02/23/2024 02/23/2024 024 11:30 AM CDT Assessment Noted Time PHQ-9 Depression Total Score: 2 07/14/19 20 10:00 AM DUTY ENGINEER documented as of this encounter Care Teams Associate Professor Physician Relationship Specialty Start Date End Date Josiane Pacheco MD [address] [place] [address] PCP - General Family Medicine 11/20/22 07/30/23 Darwin Marti MD [address] [place] [address] PCP - General Internal Medicine 07/31/23 Blair Paris MD 4 [facility] [address] [place] [address] Consulting Physician Orthopaedic Sports Medicine 07/31/23 Jose A Espinosa MD [address] [address] Consulting Physician Pain Medicine-Pain Management 07/31/23 02/08/24 Hao Silvestre MD [address] [address] Consulting Physician Neurological Surgery 07/31/23 Carlos Dailey MD [address] [address] Consulting Physician Colon and Rectal Surgery 10/26/23 Saida Mckeon APRN, VENDING MACHINE FILLER [address] [place] [address] Nurse Practitioner Gastroenterology 10/26/23 Jessenia Ward APRN, NURSING INSTRUCTOR [address] [place] [address] Nurse Practitioner Neurology 11/17/23 Hao Silvestre MD [address] [address] Consulting Physician Neurological Surgery 02/09/2401/27 Dominic Wang MD [place], [place] Consulting Physician Pain Medicine-Pain Management 02/09/24 Butch Muñiz MD [address] [place] [address] Consulting Physician Neurology 02/23/24 documented as of this encounter
--- OUTSIDE RECORDS SUMMARY | 2024-09-24 10:32 | XMS_ITS | Encounter Summary ---
Author Organization [facility] Address [address] [place] [address] Phone Care Team Providers Care Clinical Services Professional Name Role Phone Luann Cox MD Primary Care Provider + [phone] Josiane Pacheco MD Primary Care Provider + [phone] Blair Paris MD Unavailable +[phone] Jose A Espinosa MD Unavailable +[phone] Darwin Marti MD Primary Care Provider +[phone] Hao Silvestre MD Unavailable +[phone] Carlos Dailey MD Unavailable Saida Mckeon APRN, MANAGER PHYSICAL Unavailable Jessenia Ward APRN, SLIP COVER CUTTER Unavailable + [phone] Hao Silvestre MD Unavailable +[phone] Dominic Wang MD Unavailable +[phone] Butch Muñiz MD Unavailable +[phone] Reason for Visit * Reason Comments Medication Refill Encounter Details Date Type Department Care Team (Late st Contact Info) Description 04/19/2021 Refill [facility] - Primary Care - [place] [address] [place] [id number] Luann Cox MD [address] [place] [address] Medication Refill Social History Tobacco [...] Dept 03/07/21 Office Visit Luann Cox MD [facility] 09/06/20 Office Visit Luann Cox MD [facility] 07/24/20 Office Visit Luann Cox MD [facility] Showing recent visits within past 365 days and meeting all other requirements Future Appointments Date Type Provider Dept 06/13/21 Appointment Luann Cox MD [facility] Showing future appointments within next 90 days [...] Dept 03/07/21 Office Visit [facility] 09/06/20 Office Visit [facility] 07/24/20 Office Visit Luann Cox MD [facility] Showing recent visits within past 365 days and meeting all other requirements Future Appointments Date Type Provider Dept 06/13/21 Appointment Luann Cox MD [facility] Showing future appointments within next 90 days [...] Dept 03/07/21 Office Visit Luann Cox MD [facility] 09/06/20 Office Visit Luann Cox MD [facility] 07/24/20 Office Visit Luann Cox MD [facility] Showing recent visits within past 365 days and meeting all other requirements Future Appointments Date Type Provider Dept 06/13/21 Appointment Luann Cox MD [facility] Showing future appointments within next 90 days and meeting all other requirements Passed - Normal TSH in past 12 months TSH Date Value Ref Range Status 03/05/2021 2.770 0.270 - 4.200 mIU/L Final documented in this encounter Plan of Treatment Upcoming Encounters Date Type Department Care Team (Late st Contact Info) Description 02/20/2025 9:30 AM CDT Office Visit [facility] Neurology [facility] [address] [place] [address] Jessenia Ward, SECURITY LEAD, SLIP COVER CUTTER [address] [place] [address] 03/02/2025 9:15 AM CDT Office Visit [facility] - Primary Care - [place] [address] [place] [id number] Darwin Marti MD [address] [place] [address] documented as of this encounter Visit Diagnoses [...] - 19 05/07/2023 05/07/2023 05/07/2023 9:50 AM PARIMUTUEL CASHIER COVID - 19 Confirmed 05/07/2023 05/07/2023 023 12:16 AM PARIMUTUEL CASHIER C. difficile Rule-Out 09/24/2023 09/24/20232023 3:41 PM CDT COVID - 19 09/24/2023 09/24/2023 09/24/2023 11:3 2 AM CDT C. difficile Rule-Out 09/27/2023 09/27/20232023 2:13 PM CDT COVID - 19 02/23/2024 02/23/2024 02/23/2024 11:2 8 AM CDT Respiratory Rule-Out 02/23/2024 02/23/2024 024 11:30 AM CDT Assessment Noted Time PHQ-9 Depression Total Score: 2 07/14/19 20 10:00 AM PARIMUTUEL CASHIER documented as of this encounter Care Teams Clinical Services Professional Relationship Specialty Start Date End Date Luann Cox MD PCP - General Family Medicine 04/15/15 11/02/22 Josiane Pacheco MD [address] [place] [address] PCP - General Family Medicine 11/20/22 07/30/23 Darwin Marti MD [address] [place] [address] PCP - General Internal Medicine 07/31/23 Blair Paris MD [address] [facility] [address] [place] [address] Consulting Physician Orthopaedic Sports Medicine 07/31/23 Jose A Espinosa MD 2 [facility] [address] [place] [address] Consulting Physician Pain Medicine-Pain Management 07/31/23 02/08/24 [place] [address] [place] [address] Consulting Physician Neurological Surgery 07/31/23 Carlos Dailey MD [address]2 [facility] [address] [place] [address] Consulting Physician Colon and Rectal Surgery 10/26/23 Saida Mckeon APRN, MANAGER PHYSICAL [address] [place] [address] Nurse Practitioner Gastroenterology 10/26/23 Jessenia Ward APRN, SLIP COVER CUTTER [address] [place] [address] Nurse Practitioner Neurology 11/17/23 [place] [address] [place] [address] Consulting Physician Neurological Surgery 02/09/2401/27 Dominic Wang MD [place], [place] Consulting Physician Pain Medicine-Pain Management 02/09/24 Butch Muñiz MD [address] [place] [address] Consulting Physician Neurology 02/23/24 documented as of this encounter
--- OUTSIDE RECORDS SUMMARY | 2024-09-24 10:32 | XMS_ITS | Encounter Summary ---
Author Organization [facility] Address [address] [place] [address] Phone Care Team Providers Care Advertising Display Rotator Name Role Phone Blair Paris MD Unavailable +[phone] Jose A Espinosa MD Unavailable [phone] Darwin Marti MD Primary Care Provider +[phone] Hao Silvestre MD Unavailable [phone] Carlos Dailey MD Unavailable Saida Mckeon APRN, PUBLIC WEIGHER Unavailable Jessenia Ward APRN, [facility] Unavailable + [phone] Hao Silvestre MD Unavailable +[phone] Dominic Wang MD Unavailable [phone] Butch Muñiz MD Unavailable [phone] Reason for Visit * Reason Comments Medication Refill Encounter Details Date Type Department Care Team ([facility] Contact Info) Description 09/08/2023 Refill [facility] [place] [address] [place] [address] Josiane Pacheco MD [address] [place] [address] Medication Refill Social History Tobacco [...] Description 02/20/2025 9:30 AM CDT Office Visit [facility] Neurology [facility] [address] [place] [address] Jessenia Ward, ON LINE CSR, FINANCIAL MANAGER [address] [place] [address] 03/02/2025 9:15 AM CDT Office Visit [facility] - [place] [address] [place] [address] Darwin Marti MD [address] [place], [place] [address] documented as of this encounter Visit Diagnoses [...] Depression Total Score: 0 07/31/19 12:53 PM ONLINE PROGRAM COORDINATOR documented as of this encounter Care Teams Advertising Display Rotator Relationship Specialty Start Date End Date Darwin Marti MD [address] [place] [address] PCP - General Internal Medicine 07/31/23 Blair Paris MD 4 [facility] [address] [place] [address] Consulting Physician Orthopaedic Sports Medicine 07/31/23 Jose A Espinosa MD 2 [facility] [address] [place] [address] Consulting Physician Pain Medicine-Pain Management 07/31/23 02/08/24 Hao Silvestre MD [address] [place] [address] Consulting Physician Neurological Surgery 07/31/23 Carlos Dailey MD #2 [facility] [address] [place] [address] Consulting Physician Colon and Rectal Surgery 10/26/23 Saida Mckeon APRN, PUBLIC WEIGHER [address] [place] [address] Nurse Practitioner Gastroenterology 10/26/23 Jessenia Ward APRN, FINANCIAL MANAGER #[address] [place] [address] Nurse Practitioner Neurology 11/17/23 Hao Silvestre MD [address] [address] Consulting Physician Neurological Surgery 02/09/2401/27 Dominic Wang MD [place], [place] Consulting Physician Pain Medicine-Pain Management 02/09/24 Butch Muñiz MD #[address] [place] [address] Consulting Physician Neurology 02/23/24 documented as of this encounter
--- OUTSIDE RECORDS SUMMARY | 2024-09-24 10:32 | XMS_ITS | Encounter Summary ---
Author Organization [facility] Address [address] [place] [address] Phone Care Team Providers Care Scale Assembly Set Up Worker Name Role Phone Luann Cox MD Primary Care Provider + [phone] Josiane Pacheco MD Primary Care Provider + [phone] Blair Paris MD Unavailable [phone] Jose A Espinosa MD Unavailable [phone] Darwin Marti MD Primary Care Provider +[phone] Hao Silvestre MD Unavailable +[phone] Carlos Dailey MD Unavailable Saida Mckeon APRN, DATABASE DBA Unavailable Jessenia Wrad APRN, QUALITY CONTROL ENGINEER Unavailable + [phone] Hao Silvestre MD Unavailable +[phone] Dominic Wang MD Unavailable [phone] Butch Muñiz MD Unavailable [phone] Reason for Visit * Reason Comments Medication Refill Encounter Details Date Type Department Care Team (Late st Contact Info) Description 04/27/2021 Refill [facility] - Primary Care - [place] [address] [place] [address] Luann Cox MD [address] [place] [address] Medication Refill Social History Tobacco [...] Dept 03/07/21 Office Visit Luann Cox MD [facility] 09/06/20 Office Visit Luann Cox MD [facility] [address] 07/24/20 Office Visit Luann Cox MD [facility] Showing recent visits within past 365 days and meeting all other requirements Future Appointments Date Type Provider Dept 06/13/21 Appointment Luann Cox MD [facility] Showing future appointments within next 90 days [...] Dept 03/07/21 Office Visit Luann Cox MD [facility] [address] 09/06/20 Office Visit Luann Cox MD [facility] [address] 07/24/20 Office Visit Luann Cox MD [facility] Showing recent visits within past 365 days and meeting all other requirements Future Appointments Date Type Provider Dept 06/13/21 Appointment Luann Cox MD [facility] Showing future appointments within next 90 days and meeting all other requirements documented in this encounter Plan of Treatment Upcoming Encounters Date Type Department Care Team (Late st Contact Info) Description 02/20/2025 9:30 AM CDT Office Visit [facility] - Neurology - [place] [address] [place] [address] Jessenia Ward, ASSEMBLY LINE ROBOT OPERATOR, QUALITY CONTROL ENGINEER [address] [place] [address] 03/02/2025 9:15 AM CDT Office Visit [facility] - Primary Care - [place] [address] [place] [address] Darwin Marti MD [address] [place] [address] documented as of this encounter Visit Diagnoses Diagnosis Hyperlipidemia, unspecified hyperlipidemia type documented in this encounter Additional Health Concerns Infection Onset Date Last Indicated Resolved Time ESBL 08/16/2018 08/16/2018 09/28/2023 9:03 AM CDT COVID - 19 03/09/2023 03/09/2023 03/19/2023 12:1 6 AM CDT Respiratory Rule-Out 03/09/2023 03/09/2023 023 2:09 AM CDT COVID - 19 05/07/2023 05/07/2023 05/07/2023 9:50 AM SITE LEAD COVID - 19 Confirmed 05/07/2023 05/07/2023 023 12:16 AM SITE LEAD C. difficile Rule-Out 09/24/2023 09/24/20232023 3:41 PM CDT COVID - 19 09/24/2023 09/24/2023 09/24/2023 11:3 2 AM CDT C. difficile Rule-Out 09/27/2023 09/27/20232023 2:13 PM CDT COVID - 19 02/23/2024 02/23/2024 02/23/2024 11:2 8 AM CDT Respiratory Rule-Out 02/23/2024 02/23/2024 024 11:30 AM CDT Assessment Noted Time PHQ-9 Depression Total Score: 2 07/14/19 20 10:00 AM SITE LEAD documented as of this encounter Care Teams Scale Assembly Set Up Worker Relationship Specialty Start Date End Date Luann Cox MD PCP - General Family Medicine 04/15/15 11/02/22 Josiane Pacheco MD [address] [place] [address] PCP - General Family Medicine 11/20/22 07/30/23 Darwin Marti MD [address] [place] [address] PCP - General Internal Medicine 07/31/23 Blair Paris MD 4 [facility] [address] [place] [address] Consulting Physician Orthopaedic Sports Medicine 07/31/23 Jose A Espinosa MD 2 [facility] [address] [place] [address] Consulting Physician Pain Medicine-Pain Management 07/31/23 02/08/24 Hao Silvestre MD [address] [id number] Consulting Physician Neurological Surgery 07/31/23 Carlos Dailey MD #2 [facility] [address] [place] [address] Consulting Physician Colon and Rectal Surgery 10/26/23 Saida Mckeon APRN, DATABASE DBA #[address] [place] [address] Nurse Practitioner Gastroenterology 10/26/23 Jessenia Ward APRN, QUALITY CONTROL ENGINEER #[address] [place] [address] Nurse Practitioner Neurology 11/17/23 Hao Silvestre MD [address] [place] [address] Consulting Physician Neurological Surgery 02/09/2401/27 Dominic Wang MD [place], [place] Consulting Physician Pain Medicine-Pain Management 02/09/24 Butch Muñiz MD #2 [place] [address] Consulting Physician Neurology 02/23/24 documented as of this encounter
--- OUTSIDE RECORDS SUMMARY | 2024-09-24 10:32 | XMS_ITS | Encounter Summary ---
Author Organization [facility] Address [address] [place] [address] Phone Care Team Providers Care Multiple Games Dealer Name Role Phone Luann Cox MD Primary Care Provider + [phone] Josiane Pacheco MD Primary Care Provider + [phone] Blair Paris MD Unavailable [phone] Jose A Espinosa MD Unavailable +[phone] Darwin Marti MD Primary Care Provider +[phone] Hao Silvestre MD Unavailable [phone] Carlos Dailey MD Unavailable Saida Mckeon APRN, COMMISSIONER OF OFFICIALS Unavailable Jessenia Ward APRN, TRIAGE RN Unavailable +[phone] Hao Silvestre MD Unavailable [phone] Dominic Wang MD Unavailable [phone] Butch Muñiz MD Unavailable +[phone] Reason for Visit * Reason Comments Medication Refill Encounter Details Date Type Department Care Team (Late Contact Info) Description 11/11/2020 [facility] [place] [address] [place] [address] Luann Cox MD [address] [place] [address] Medication Refill Social History Tobacco [...] Description 02/20/2025 9:30 AM CDT Office Visit [facility] Neurology [facility] #[address] [place] [address] Jessenia Ward, TUBE BACKER, TRIAGE RN #[address] [place] [address] 03/02/2025 9:15 AM CDT Office Visit [facility] [place] [address] [place] [address] Darwin Marti MD [address] [place] [address] documented as of this encounter Visit Diagnoses Diagnosis Essential hypertension Unspecified essential hypertension documented in this encounter Additional Health Concerns Infection Onset Date Last Indicated Resolved Time ESBL 08/16/2018 08/16/2018 09/28/2023 9:03 AM CDT COVID - 19 03/09/2023 03/09/2023 03/19/2023 12:1 6 AM CDT Respiratory Rule-Out 03/09/2023 03/09/2023 023 2:09 AM CDT COVID - 19 05/07/2023 05/07/2023 05/07/2023 9:50 AM IN STORE DEMONSTRATOR COVID - 19 Confirmed 05/07/2023 05/07/2023 023 12:16 AM IN STORE DEMONSTRATOR C. difficile Rule-Out 09/24/2023 09/24/20232023 3:41 PM CDT COVID - 19 09/24/2023 09/24/2023 09/24/2023 11:3 2 AM CDT C. difficile Rule-Out 09/27/2023 09/27/20232023 2:13 PM CDT COVID - 19 02/23/2024 02/23/2024 02/23/2024 11:2 8 AM CDT Respiratory Rule-Out 02/23/2024 02/23/2024 024 11:30 AM CDT Assessment Noted Time PHQ-9 Depression Total Score: 2 07/14/19 20 10:00 AM IN STORE DEMONSTRATOR documented as of this encounter Care Teams Multiple Games Dealer Relationship Specialty Start Date End Date Luann Cox MD PCP - General Family Medicine 04/15/15 11/02/22 Jsoiane Pacheco MD [address] [place] [address] PCP - General Family Medicine 11/20/22 07/30/23 Darwin Marti MD [address] [place] [address] PCP - General Internal Medicine 07/31/23 Blair Paris MD 4 [facility] [address] [place] [address] Consulting Physician Orthopaedic Sports Medicine 07/31/23 Jose A Espinosa MD 2 [facility] [address] [place] [address] Consulting Physician Pain Medicine-Pain Management 07/31/23 02/08/24 Hao Silvestre MD [address] [place] [address] Consulting Physician Neurological Surgery 07/31/23 Carlos Dailey MD [address] [address] Consulting Physician Colon and Rectal Surgery 10/26/23 Saida Mckeon APRN, COMMISSIONER OF OFFICIALS #[address] [place] [address] Nurse Practitioner Gastroenterology 10/26/23 Jessenia Ward APRN, TRIAGE RN #[address] [place] [address] Nurse Practitioner Neurology 11/17/23 Hao Silvestre MD [address] [address] Consulting Physician Neurological Surgery 02/09/2401/27 Dominic Wang MD [place], [place] Consulting Physician Pain Medicine-Pain Management 02/09/24 Butch Muñiz MD #[address] [place] [address] Consulting Physician Neurology 02/23/24 documented as of this encounter
--- OUTSIDE RECORDS SUMMARY | 2024-09-24 10:33 | XMS_ITS | Encounter Summary ---
Author Organization [facility] Address [address] [place] [address] Phone Care Team Providers Care Mini Bar Attendant Name Role Phone Luann Cox MD Primary Care Provider + [phone] Josiane Pacheco MD Primary Care Provider + [phone] Blair Paris MD Unavailable [phone] Jose A Espinosa MD Unavailable [phone] Darwin Marti MD Primary Care Provider +[phone] Hao Silvestre MD Unavailable +[phone] Carlos Dailey MD Unavailable Saida Mckeon APRN, COORDINATOR CARDIOPULMONARY SERVICES Unavailable Jessenia Ward APRN, LEAD ATHLETE Unavailable + [phone] Hao Silvestre MD Unavailable [phone] Dominic Wang MD Unavailable [phone] Butch Muñiz MD Unavailable [phone] Reason for Visit * Reason Comments Medication Refill Encounter Details Date Type Department Care Team (Late st Contact Info) Description 04/29/2022 Refill [facility] - Primary Care - [place] [address] [place] [address] Luann Cox MD [address] [place] [address] Medication Refill Social History Tobacco [...] Dept 12/16/21 Office Visit Luann Cox MD [facility] 06/27/21 Office Visit Luann Cox MD [facility] Showing recent visits within past 365 days and meeting all other requirements Future Appointments Date Type Provider Dept 05/23/22 Appointment Lab, [place] [facility] 05/29/22 Appointment Luann Cox MD [facility] Showing future appointments within next [...] Dept 12/16/21 Office Visit Luann Cox MD [facility] 06/27/21 Office Visit Luann Cox MD [facility] Showing recent visits within past 365 days and meeting all other requirements Future Appointments Date Type Provider Dept 05/23/22 Appointment Lab, [place] [facility] 05/29/22 Appointment Luann Cox MD [facility] Showing future appointments within next [...] Dept 12/16/21 Office Visit Luann Cox MD [facility] 06/27/21 Office Visit Luann Cox MD [facility] Showing recent visits within past 365 days and meeting all other requirements Future Appointments Date Type Provider Dept 05/23/22 Appointment Lab, [place] [facility] 05/29/22 Appointment Luann Cox MD [facility] Showing future appointments within next 90 days [...] Dept 12/16/21 Office Visit Luann Cox MD [facility] 06/27/21 Office Visit Luann Cox MD [facility] Showing recent visits within past 365 days and meeting all other requirements Future Appointments Date Type Provider Dept 05/23/22 Appointment [facility] [place] [facility] 05/29/22 Appointment Luann Cox MD [facility] Showing future appointments within next 90 days and meeting all other requirements documented in this encounter Plan of Treatment Upcoming Encounters Date Type Department Care Team (Late st Contact Info) Description 02/20/2025 9:30 AM CDT Office Visit [facility] - Neurology - [place] [address] [place] [address] Jessenia Ward APRN, LEAD ATHLETE #[address] [place] [address] 03/02/2025 9:15 AM CDT Office Visit [facility] - Primary Care - [place] [address] [place] [address] Darwin Marti MD [address] [place] [address] documented as of this encounter Visit Diagnoses [...] - 19 05/07/2023 05/07/2023 05/07/2023 9:50 AM MED SPEC COVID - 19 Confirmed 05/07/2023 05/07/2023 023 12:16 AM MED SPEC C. difficile Rule-Out 09/24/2023 09/24/20232023 3:41 PM CDT COVID - 19 09/24/2023 09/24/2023 09/24/2023 11:3 2 AM CDT C. difficile Rule-Out 09/27/2023 09/27/20232023 2:13 PM CDT COVID - 19 02/23/2024 02/23/2024 02/23/2024 11:2 8 AM CDT Respiratory Rule-Out 02/23/2024 02/23/2024 024 11:30 AM CDT Assessment Noted Time PHQ-9 Depression Total Score: 2 07/14/19 20 10:00 AM MED SPEC documented as of this encounter Care Teams Mini Bar Attendant Relationship Specialty Start Date End Date Luann Cox MD PCP - General Family Medicine 04/15/15 11/02/22 Josiane Pacheco MD [address] [place] [address] PCP - General Family Medicine 11/20/22 07/30/23 Darwin Marti MD [address] [place] [address] PCP - General Internal Medicine 07/31/23 Blair Paris MD 4 [facility] [address] [place] [address] Consulting Physician Orthopaedic Sports Medicine 07/31/23 Jose A Espinosa MD 2 [facility] [address] [place] [address] Consulting Physician Pain Medicine-Pain Management 07/31/23 02/08/24 Hao Silvestre MD [address] [address] Consulting Physician Neurological Surgery 07/31/23 Carlos Dailey MD #2 [facility] [address] [place] [address] Consulting Physician Colon and Rectal Surgery 10/26/23 Saida Mckeon APRN, [facility] #2 [place] [address] Nurse Practitioner Gastroenterology 10/26/23 Jessenia Ward APRN, [facility] #[address] [place] [address] Nurse Practitioner Neurology 11/17/23 Hao Silvestre MD [address] [place] [address] Consulting Physician Neurological Surgery 02/09/2401/27 Dominic Wang MD [place], [place] Consulting Physician Pain Medicine-Pain Management 02/09/24 Butch Muñiz MD #2 [place] [address] Consulting Physician Neurology 02/23/24 documented as of this encounter
--- OUTSIDE RECORDS SUMMARY | 2024-09-24 10:33 | XMS_ITS | Encounter Summary ---
Author Organization [facility] Address [address] [place] [address] Phone Care Team Providers Care Drill Operator Pneumatic Name Role Phone Luann Cox MD Primary Care Provider + [phone] Josiane Pacheco MD Primary Care Provider + [phone] Blair Paris MD Unavailable +[phone] Jose A Espinosa MD Unavailable +[phone] Darwin Marti MD Primary Care Provider +[phone] Hao Silvestre MD Unavailable +[phone] Carols Dailey MD Unavailable Saida Mckeon APRN, AIRPORT OPERATIONS CREW MEMBER Unavailable Jessenia Ward APRN, STATION MANAGER Unavailable + [phone] Hao Silvestre MD Unavailable +[phone] Dominic Wang MD Unavailable [phone] Butch Muñiz MD Unavailable +[phone] Reason for Visit * Reason Comments Medication Refill Encounter Details Date Type Department Care Team (Late st Contact Info) Description 12/26/2019 Refill [facility] [address] [place] [address] Luann Cox MD [address] [place] [address] Medication Refill Social History Tobacco [...] Torres MD 11 months ago Essential hypertension [facility] - Luann Torres MD 1 year ago Syncope, unspecified syncope type [facility] - Luann Torres MD 1 year ago Sore throat [facility] - Luann Torres MD 1 year ago Essential hypertension [facility] - Luann Torres MD Upcoming Appointments Future Appointments In 1 week Chanelle Edmonds RN [facility] In 1 week [facility], [facility] In 1 week [facility], [facility] In 2 weeks Chnaelle Edmonds [facility] 2 weeks Luann Cox MD [facility] [address] In 3 weeks Chanelle [facility] In 4 months [facility] documented in this encounter Plan of Treatment Upcoming Encounters Date Type Department Care Team (Late st Contact Info) Description 02/20/2025 9:30 AM CDT Office Visit [facility] Neurology - [place] [address] [place] [address] Jessenia Ward, RIGGER, STATION MANAGER [address] [place] [address] 03/02/2025 9:15 AM CDT Office Visit [facility] Primary Care - [place] [address] [place] [phone] Darwin Marti MD [address] [place] [id number] documented as of this encounter Visit Diagnoses Diagnosis Gastroesophageal reflux disease, esophagitis presence not specified documented in this encounter Additional Health Concerns Infection Onset Date Last Indicated Resolved Time ESBL 08/16/2018 08/16/2018 09/28/2023 9:03 AM CDT COVID - 19 03/09/2023 03/09/2023 03/19/2023 12:1 6 AM CDT Respiratory Rule-Out 03/09/2023 03/09/2023 023 2:09 AM CDT COVID - 19 05/07/2023 05/07/2023 05/07/2023 9:50 AM ATHLETIC INSTRUCTOR COVID - 19 Confirmed 05/07/2023 05/07/2023 023 12:16 AM ATHLETIC INSTRUCTOR C. difficile Rule-Out 09/24/2023 09/24/20232023 3:41 PM CDT COVID - 19 09/24/2023 09/24/2023 09/24/2023 11:3 2 AM CDT C. difficile Rule-Out 09/27/2023 09/27/20232023 2:13 PM CDT COVID - 19 02/23/2024 02/23/2024 02/23/2024 11:2 8 AM CDT Respiratory Rule-Out 02/23/2024 02/23/2024 024 11:30 AM CDT Assessment Noted Time PHQ-9 Depression Total Score: 2 07/14/19 20 10:00 AM ATHLETIC INSTRUCTOR documented as of this encounter Care Teams Drill Operator Pneumatic Relationship Specialty Start Date End Date Luann Cox MD PCP - General Family Medicine 04/15/15 11/02/22 Josiane Pacheco MD [address] [place] [id number] PCP - General Family Medicine 11/20/22 07/30/23 Darwin Marti MD [address] [place] [address] PCP - General Internal Medicine 07/31/23 Blair Paris MD 4 [facility] [address] [place] [address] Consulting Physician Orthopaedic Sports Medicine 07/31/23 Jose A Espinosa MD 2 [facility] [address] [place] [address] Consulting Physician Pain Medicine-Pain Management 07/31/23 02/08/24 Hao Silvestre MD [address] [place] [address] Consulting Physician Neurological Surgery 07/31/23 Carlos Dailey MD #[address] [address] Consulting Physician Colon and Rectal Surgery 10/26/23 Saida Mckeon APRN, AIRPORT OPERATIONS CREW MEMBER [address] [place] [address] Nurse Practitioner Gastroenterology 10/26/23 Jessenia Ward APRN, STATION MANAGER [address] [place] [address] Nurse Practitioner Neurology 11/17/23 Hao Silvestre MD [address] [address] Consulting Physician Neurological Surgery 02/09/2401/27 Dominic Wang MD [place], [place] Consulting Physician Pain Medicine-Pain Management 02/09/24 Butch Muñiz MD [address] [place] [address] Consulting Physician Neurology 02/23/24 documented as of this encounter
--- OUTSIDE RECORDS SUMMARY | 2024-09-24 10:33 | XMS_ITS | Encounter Summary ---
Author Organization [facility] Address [address] [place] [address] Phone Care Team Providers Care Corporate Compliance Director Name Role Phone Luann Cox MD Primary Care Provider + [phone] Josiane Pacheco MD Primary Care Provider + [phone] Blair Paris MD Unavailable +[phone] Jose A Espinosa MD Unavailable [phone] Darwin Marti MD Primary Care Provider +[phone] Hao Silvestre MD Unavailable [phone] Carlos Dailey MD Unavailable Saida Mckeon APRN, STAND GRINDER Unavailable Jessenia Ward APRN, LEAF TIER Unavailable + [phone] Hao Silvestre MD Unavailable +[phone] Dominic Wang MD Unavailable [phone] Butch Muñiz MD Unavailable +[phone] Reason for Visit * Reason Comments Medication Refill Encounter Details Date Type Department Care Team (Late st Contact Info) Description 01/21/2020 Refill [facility] [address] [place] [phone] Luann Cox MD [address] [place] [address] Medication Refill Social History Tobacco [...] Outpatient Visits 6 months ago Essential hypertension [facility] - Luann Torres MD 1 year ago Essential hypertension [facility] - Luann Torres MD 1 year ago Syncope, unspecified syncope type [facility] - Luann Torres MD 1 year ago Sore throat [facility] - Luann Torres MD 1 year ago Essential hypertension [facility] - Luann Torres MD Upcoming Appointments Future Appointments Tomorrow [facility]HCUSTECH2; [facility]US[facility] Ultrasound, [facility] In 1 week [facility], [facility] In 1 week [facility]2; [facility], [facility] In 3 months [facility] MRI, [facility] In 5 months Lab, [place] [facility] - [address] In 5 months Luann Cox MD [facility] - [address] PAPER MACHINE SUPERVISOR - Recent and Past Visits Recent Visits Date Type Provider Dept 01/12/20 [facility]19 Office Visit [facility] MD [facility] [place] 01/11/19 Office Visit Luann Cox MD [facility] Showing recent visits within past 460 [...] Outpatient Visits 6 months ago Essential hypertension [facility] - Luann Torres MD 1 year ago Essential hypertension [facility] - Luann Torres MD 1 year ago Syncope, unspecified syncope type [facility] - Luann Torres MD 1 year ago Sore throat [facility] - Luann Torres MD 1 year ago Essential hypertension [facility] - Luann Torres MD Upcoming Appointments Future Appointments Tomorrow [facility]UST[facility]CH2; [facility] Ultrasound, [facility] In 1 week [facility], [facility] In 1 week [facility]CH2; [facility] Ultrasound, [facility] In 3 months [facility] In 5 months Lab, [place] [facility] [address] In 5 months Luann Cox MD [facility] - [address] PAPER MACHINE SUPERVISOR - Recent and Past Visits Recent Visits Date Type Provider Dept 01/12/20 Office Visit Luann Cox MD [facility] [address] 07/14/19 Office Visit Lu[facility] MD [facility] 01/11/19 Office Visit Luann Cox MD [facility] [place] Showing recent visits within past 460 [...] Description 02/20/2025 9:30 AM CDT Office Visit [facility] Neurology - [place] [address] [place] [address] Jessenia Ward APRN, [facility] [address] [place] [address] 03/02/2025 9:15 AM CDT Office Visit [facility] - Primary Care - [place] [address] [place] [phone] Darwin Marti MD [address] [place] [address] documented as of this encounter Visit Diagnoses Diagnosis Hyperlipidemia, unspecified hyperlipidemia type documented in this encounter Additional Health Concerns Infection Onset Date Last Indicated Resolved Time ESBL 08/16/2018 08/16/2018 09/28/2023 9:03 AM CDT COVID - 19 03/09/2023 03/09/2023 03/19/2023 12:1 6 AM CDT Respiratory Rule-Out 03/09/2023 03/09/2023 023 2:09 AM CDT COVID - 19 05/07/2023 05/07/2023 05/07/2023 9:50 AM TECHNOLOGY PROFESSIONAL COVID - 19 Confirmed 05/07/2023 05/07/2023 023 12:16 AM TECHNOLOGY PROFESSIONAL C. difficile Rule-Out 09/24/2023 09/24/20232023 3:41 PM CDT COVID - 19 09/24/2023 09/24/2023 09/24/2023 11:3 2 AM CDT C. difficile Rule-Out 09/27/2023 09/27/20232023 2:13 PM CDT COVID - 19 02/23/2024 02/23/2024 02/23/2024 11:2 8 AM CDT Respiratory Rule-Out 02/23/2024 02/23/2024 024 11:30 AM CDT Assessment Noted Time PHQ-9 Depression Total Score: 2 07/14/19 20 10:00 AM TECHNOLOGY PROFESSIONAL documented as of this encounter Care Teams Corporate Compliance Director Relationship Specialty Start Date End Date Luann Cox MD PCP - General Family Medicine 04/15/15 11/02/22 Josiane Pacheco MD [address] [place] [address] PCP - General Family Medicine 11/20/22 07/30/23 Darwin Marti MD [address] [place] [address] PCP - General Internal Medicine 07/31/23 Blair Paris MD 4 [facility] [address] [place] [address] Consulting Physician Orthopaedic Sports Medicine 07/31/23 Jose A Espinosa MD 2 [facility] [address] [address] Consulting Physician Pain Medicine-Pain Management 07/31/23 02/08/24 Hao Silvestre MD [address] [address] Consulting Physician Neurological Surgery 07/31/23 Carlos Dailey MD [address] [address] Consulting Physician Colon and Rectal Surgery 10/26/23 Saida Mckeon APRN, STAND GRINDER [address] [place] [address] Nurse Practitioner Gastroenterology 10/26/23 Jessenia Ward APRN, LEAF TIER [address] [place] [address] Nurse Practitioner Neurology 11/17/23 Hao Silvestre MD [address] [place] [address] Consulting Physician Neurological Surgery 02/09/2401/27 Dominic Wang MD [place], [place] Consulting Physician Pain Medicine-Pain Management 02/09/24 Butch Muñiz MD [address] [place] [address] Consulting Physician Neurology 02/23/24 documented as of this encounter
--- OUTSIDE RECORDS SUMMARY | 2024-09-24 10:33 | XMS_ITS | Encounter Summary ---
Author Organization [facility] Address [address] [place] [address] Phone Care Team Providers Care Lasting Machine Operator Hand Method Name Role Phone Luann Cox MD Primary Care Provider + [phone] Josiane Pacheco MD Primary Care Provider + [phone] Blair Paris MD Unavailable [phone] Jose A Espinosa MD Unavailable [phone] Darwin Marti MD Primary Care Provider +[phone] Hao Silvestre MD Unavailable [phone] Carlos Dailey MD Unavailable Siada Mckeon APRN, LAWN AND TREE SERVICE SPRAY SUPERVISOR Unavailable Jessenia Ward APRN, RADIATION THERAPY TECHNOLOGIST Unavailable + [phone] Hao Silvestre MD Unavailable +[phone] Dominic Wang MD Unavailable [phone] Butch Muñiz MD Unavailable [phone] Reason for Visit * Reason Comments Medication Refill Encounter Details Date Type Department Care Team (Late st Contact Info) Description 11/01/2021 Refill [facility] - Primary Care - [place] [address] [place] [phone] Luann Cox MD [address] [place] [address] Medication Refill Social History Tobacco [...] Dept 06/27/21 Office Visit Luann Cox MD [facility] 03/07/21 Office Visit Luann Cox MD [facility] Showing recent visits within past 365 [...] Dept 06/27/21 Office Visit Luann Cox MD [facility] 03/07/21 Office Visit Luann Cox MD [facility] Showing recent visits within past 365 [...] Dept 06/27/21 Office Visit Luann Cox MD [facility] 03/07/21 Office Visit Luann Cox MD [facility] Showing recent visits within past 365 [...] Dept 06/27/21 Office Visit Luann Cox MD [facility] [employer] 03/07/21 Office Visit Luann Cox MD [facility] [employer] Showing recent visits within past 365 days [...] Dept 06/27/21 Office Visit Luann Cox MD [facility] [employer] [address] 03/07/21 Office Visit Luann Cox MD [facility] Showing recent visits within past 365 [...] Description 02/20/2025 9:30 AM CDT Office Visit [facility] - Neurology [facility] [address] [place] [address] Jessenia Ward, PRIVATE BRANCH EXCHANGE SERVICE ADVISER, RADIATION THERAPY TECHNOLOGIST [address] [place] [address] 03/02/2025 9:15 AM CDT Office Visit [facility] - Primary Care - [place] [address] [place] [phone] Darwin Marti MD [address] [place] [address] documented as of this encounter Visit Diagnoses [...] - 19 05/07/2023 05/07/2023 05/07/2023 9:50 AM ENGINEERING TEACHER COVID - 19 Confirmed 05/07/2023 05/07/2023 023 12:16 AM ENGINEERING TEACHER C. difficile Rule-Out 09/24/2023 09/24/20232023 3:41 PM CDT COVID - 19 09/24/2023 09/24/2023 09/24/2023 11:3 2 AM CDT C. difficile Rule-Out 09/27/2023 09/27/20232023 2:13 PM CDT COVID - 19 02/23/2024 02/23/2024 02/23/2024 11:2 8 AM CDT Respiratory Rule-Out 02/23/2024 02/23/2024 024 11:30 AM CDT Assessment Noted Time PHQ-9 Depression Total Score: 2 07/14/19 20 10:00 AM ENGINEERING TEACHER documented as of this encounter Care Teams Lasting Machine Operator Hand Method Relationship Specialty Start Date End Date Luann Cox MD PCP - General Family Medicine 04/15/15 11/02/22 Josiane Pacheco MD [address] [place] [address] PCP - General Family Medicine 11/20/22 07/30/23 Darwin Marti MD [address] [place] [address] PCP - General Internal Medicine 07/31/23 Blair Paris MD 4 [facility] [address] [place] [address] Consulting Physician Orthopaedic Sports Medicine 07/31/23 Jose A Espinosa MD 2 [facility] [address] [place] [address] Consulting Physician Pain Medicine-Pain Management 07/31/23 02/08/24 Hao Silvestre MD [address] [address] Consulting Physician Neurological Surgery 07/31/23 Carlos Dailey MD [address] [address] Consulting Physician Colon and Rectal Surgery 10/26/23 Saida Mckeon APRN, LAWN AND TREE SERVICE SPRAY SUPERVISOR [address] [place] [address] Nurse Practitioner Gastroenterology 10/26/23 Jessenia Ward APRN, RADIATION THERAPY TECHNOLOGIST [address] [place] [address] Nurse Practitioner Neurology 11/17/23 Hao Silvestre MD [address] [address] Consulting Physician Neurological Surgery 02/09/2401/27 Dominic Wang MD [place], [place] Consulting Physician Pain Medicine-Pain Management 02/09/24 Butch Muñiz MD [address] [place] [address] Consulting Physician Neurology 02/23/24 documented as of this encounter
--- OUTSIDE RECORDS SUMMARY | 2024-09-24 10:33 | XMS_ITS | Encounter Summary ---
Author Organization [facility] Address [address] [place] [address] Phone Care Team Providers Care Performance Architect Name Role Phone Luann Cox MD Primary Care Provider + [phone] Josiane Pacheco MD Primary Care Provider + [phone] Blair Paris MD Unavailable [phone] Jose A Espinosa MD Unavailable [phone] Darwin Marti MD Primary Care Provider +[phone] Hao Silvestre MD Unavailable [phone] Carlos Dailey MD Unavailable Saida Mckeon APRN, LEGAL DEPARTMENT MANAGER Unavailable Jessenia Ward APRN, CANCER SPEC Unavailable + [phone] Hao Silvestre MD Unavailable +[phone] Dominic Wang MD Unavailable [phone] Butch Muñiz MD Unavailable +[phone] Reason for Visit * Reason Comments Medication Refill Encounter Details Date Type Department Care Team (Late st Contact Info) Description 01/01/2022 Refill [facility] - Primary Care - [place] [address] [place] [address] Luann Cox MD [address] [place] [address] Medication Refill Social History Tobacco [...] Dept 12/16/21 Office Visit [facility] MD [facility] 06/27/21 Office Visit Luann Cox MD [facility] [place] [facility] 03/07/21 Office Visit Luann Cox MD [facility] writewith [facility] Showing recent visits within past 365 days [...] Dept 12/16/21 Office Visit Luann Cox MD [facility] [place] [facility] 06/27/21 Office Visit Luann Cox MD [facility] [place] [facility] 03/07/21 Office Visit Luann Cox MD [facility] [place] [facility] Showing recent visits within past 365 days [...] Dept 12/16/21 Office Visit Luann Cox MD [facility] 06/27/21 Office Visit Luann Cox MD [facility] 03/07/21 Office Visit [facility] Cox MD [facility] [place] Showing recent visits within past 365 days [...] Dept 12/16/21 Office Visit Luann Cox MD [facility] [place] 06/27/21 Office Visit Luann Cox MD [facility] [place] [facility] 03/07/21 [facility] Showing recent visits within past 365 days [...] Dept 12/16/21 Office Visit Luann Cox MD [facility] [place] [facility] 06/27/21 Office Visit Luann Cox MD [facility] [place] [facility] 03/07/21 Office Visit Luann Cox MD [facility] [place] [facility] Showing recent visits within past 365 days [...] CDT Office Visit [facility] - Neurology [facility] [address] [place] [address] Jessenia Ward, ASSOCIATE ACCOUNT EXECUTIVE, CANCER SPEC [address] [place] [address] 03/02/2025 9:15 AM CDT Office Visit [facility] - Primary Care - [place] [address] [place] [address] Darwin Marti MD [address] [place] [address] documented as of this encounter Visit Diagnoses [...] 19 05/07/2023 05/07/2023 05/07/2023 9:50 AM PHOTO MASK PATTERN GENERATOR COVID - 19 Confirmed 05/07/2023 05/07/2023 023 12:16 AM PHOTO MASK PATTERN GENERATOR C. difficile Rule-Out 09/24/2023 09/24/20232023 3:41 PM CDT COVID - 19 09/24/2023 09/24/2023 09/24/2023 11:3 2 AM CDT C. difficile Rule-Out 09/27/2023 09/27/20232023 2:13 PM CDT COVID - 19 02/23/2024 02/23/2024 02/23/2024 11:2 8 AM CDT Respiratory Rule-Out 02/23/2024 02/23/2024 024 11:30 AM CDT Assessment Noted Time PHQ-9 Depression Total Score: 2 07/14/19 20 10:00 AM PHOTO MASK PATTERN GENERATOR documented as of this encounter Care Teams Performance Architect Relationship Specialty Start Date End Date Luann Cox MD PCP - General Family Medicine 04/15/15 11/02/22 Josiane Pacheco MD [address] [place] [address] PCP - General Family Medicine 11/20/22 07/30/23 Darwin Marti MD [address] [place] [address] PCP - General Internal Medicine 07/31/23 Blair Paris MD 4 [facility] [address] [place] [address] Consulting Physician Orthopaedic Sports Medicine 07/31/23 Jose A Espinosa MD 2 [facility] [address] [place] [address] Consulting Physician Pain Medicine-Pain Management 07/31/23 02/08/24 Hao Silvestre MD [address] [place] [address] Consulting Physician Neurological Surgery 07/31/23 Carlos Dailey MD #2 [facility] [address] [place] [address] Consulting Physician Colon and Rectal Surgery 10/26/23 Saida Mckeon APRN, LEGAL DEPARTMENT MANAGER [address] [place] [address] Nurse Practitioner Gastroenterology 10/26/23 Jessenia Ward APRN, CANCER SPEC [address] [place] [address] Nurse Practitioner Neurology 11/17/23 Hao Silvestre MD [address] [address] Consulting Physician Neurological Surgery 02/09/2401/27 Dominic Wang MD [place], [place] Consulting Physician Pain Medicine-Pain Management 02/09/24 Butch Muñiz MD [address] [place] [address] Consulting Physician Neurology 02/23/24 documented as of this encounter
--- OUTSIDE RECORDS SUMMARY | 2024-09-24 10:33 | XMS_ITS | Encounter Summary ---
Author Organization [facility] Address [address] [place] [address] Phone Care Team Providers Care President & Ceo Name Role Phone Blair Paris MD Unavailable +[phone] Jose A Espinosa MD Unavailable [phone] Darwin Marti MD Primary Care Provider +[phone] Hao Silvestre MD Unavailable [phone] Carlos Dailey MD Unavailable Saida Mckeon APRN, HAND I THERMAL CUTTER Unavailable Jessenia Ward APRN, [facility] Unavailable + [phone] Hao Silvestre MD Unavailable [phone] Dominic Wang MD Unavailable [phone] Butch Muñiz MD Unavailable Reason for Visit * Reason Comments Medication Refill Encounter Details Date Type Department Care Team ([facility] Contact Info) Description 08/26/2023 [facility] [place] [address] [place] [address] Ranjeet [place] PAC [address] [place] [address] Medication Refill Social History Tobacco [...] CST Patient need to get from neurosurgeon TING SPECIALIST documented in this encounter Plan of Treatment Upcoming Encounters Date Type Department Care Team ([facility] Contact Info) Description 02/20/2025 9:30 AM CDT [facility] - [place] [address] [place] [address] Jessenia Ward APRN, AIRCRAFT ENGINE CYLINDER MECHANIC [address] [place] [address] 03/02/2025 9:15 AM CDT Office Visit [facility] Primary [facility] - [place]rey [address] [place] [address] Darwin Marti MD [address] [place] [address] documented as of this encounter Visit Diagnoses [...] Total Score: 0 07/31/19 24 12:53 PM PRINTING SPECIALIST documented as of this encounter Care Teams President & Ceo Relationship Specialty Start Date End Date Darwin Marti MD [address] [place] [address] PCP - General Internal Medicine 07/31/23 Blair Paris MD 4 [facility] , [address] [place] [address] Consulting Physician Orthopaedic Sports Medicine 07/31/23 Jose A Espinosa MD 2 [facility] [address] [place] [address] Consulting Physician Pain Medicine-Pain Management 07/31/23 02/08/24 Hao Silvestre MD [address] [facility] [address] [place] [address] Consulting Physician Neurological Surgery 07/31/23 Carlos Dailey MD #[address] [address] Consulting Physician Colon and Rectal Surgery 10/26/23 Saida Mckeon APRN, HAND I THERMAL CUTTER [address]2 [place] [address] Nurse Practitioner Gastroenterology 10/26/23 Jessenia Ward APRN, AIRCRAFT ENGINE CYLINDER MECHANIC [address] [place] [address] Nurse Practitioner Neurology 11/17/23 Hao Silvestre MD [address] [facility] [address] [place] [address] Consulting Physician Neurological Surgery 02/09/2401/27 Dominic Wang MD [place], [place] Consulting Physician Pain Medicine-Pain Management 02/09/24 Butch Muñiz MD #[address] [place] [address] Consulting Physician Neurology 02/23/24 documented as of this encounter
--- OUTSIDE RECORDS SUMMARY | 2024-09-24 10:33 | XMS_ITS | Encounter Summary ---
Author Organization [facility] Address [address] [place] [address] Phone Care Team Providers Care Information And Referral Director Name Role Phone Luann Cox MD Primary Care Provider + [phone] Josiane Pacheco MD Primary Care Provider + [phone] Blair Paris MD Unavailable +[phone] Jose A Espinosa MD Unavailable [phone] Darwin Marti MD Primary Care Provider +[phone] Hao Silvestre MD Unavailable [phone] Carlos Dailey MD Unavailable Saida Mckeon APRN, MASTER OCEAN YACHT Unavailable [place], Jessenia M PRODUCTION PLANNING SUPERVISOR, FUR IRONER Unavailable [phone] Hao Silvestre MD Unavailable Dominic Wang MD Unavailable [phone] Butch Muñiz MD Unavailable Encounter Details Date Type Department Care Team (Late Contact Info) Description 01/03/2020 [facility] [address] [place] [id number] Luann Cox MD [address] [place] [address] Essential (primary) hypertension; Syncope and collapse; Pulmonary [...] Description 02/20/2025 9:30 AM CDT Office Visit [facility] - Neurology [facility] [address] [place] [address] Jessenia Ward, PRODUCTION PLANNING SUPERVISOR, FUR IRONER [address] [place] [address] 03/02/2025 9:15 AM CDT Office Visit [facility] - Primary Care - [place] [address] [place] [phone] Darwin Marti MD [address] [place] [address] documented as of this encounter Procedures Procedure [...] 12.00 10(3)/mcL 01/03/2020 11:50 AM CDT [facility] RBC 4.18 3.80 - 5.30 10(6)/mcL 01/03/2020 11:50 AM CDT [facility] HEMOGLOBIN (HGB) 13.1 12.0 - 15.8 g/dL 01/03/2020 11:50 AM CDT [facility] HEMATOCRIT (HCT) 40.7 36.0 - 47.0 % 01/03/2020 11:50 AM CDT [facility] MCV 97.4(H) 82.0 - 96.0 fL 01/03/2020 11:50 AM CDT [facility] MCH 31.3 26.0 - 34.0 pg 01/03/2020 11:50 AM CDT [facility] MCHC 32.2 31.0 - 36.0 g/dL 01/03/2020 11:50 AM CDT [facility] PLATELET COUNT 208 140 - 440 10(3)/mcL 01/03/2020 11:50 AM CDT [facility] RDW 13.2 11.8 - 15.5 % 01/03/2020 11:50 AM CDT [facility] MPV 11.7 9.7 - 12.4 fL 01/03/2020 11:50 AM CDT [facility] NEUTROPHILS 68.0 47.0 - 73.0 % 01/03/2020 11:50 AM CDT [facility] LYMPHOCYTES 22.9 18.0 - 42.0 % 01/03/2020 11:50 AM CDT [facility] MONOCYTES 5.6 4.0 - 12.0 % 01/03/2020 11:50 AM CDT [facility] EOSINOPHILS 2.4 0.0 - 5.0 % 01/03/2020 11:50 AM CDT [facility] BASOPHILS 1.1(H) 0.0 - 1.0 % 01/03/2020 11:50 AM CDT [facility] ABSOLUTE NEUTROPHILS 3.75 1.60 - 7.70 10(3)/mcL 01/03/2020 11:50 AM CDT [facility] ABSOLUTE LYMPHOCYTES 1.26(L) 1.30 - 3.20 10(3)/mcL 01/03/2020 11:50 AM CDT [facility] ABSOLUTE MONOCYTES 0.31 0.20 - 1.00 10(3)/mcL 01/03/2020 11:50 AM CDT [facility] ABSOLUTE EOSINOPHIL 0.13 0.00 - 0.40 10(3)/mcL 01/03/2020 11:50 AM CDT [facility] ABSOLUTE BASOPHILS 0.06 0.00 - 0.10 10(3)/mcL 01/03/2020 11:50 AM CDT [facility] NRBC PER 100 WBC 0 01/03/20 20 11:50 AM CDT [facility] Blood Venipuncture / Unknown 01/03/2020 11:00 AM CDT 01/03/2020 11:46 AM CDT us Luann Cox MD HEMATOLOGY ORDERABLES Final Result Performing Organization Address City/[facility] Co de Phone Number [facility] [address] [place] [address] * (ABNORMAL) LIPID PANEL (01/03/2020 11:00 AM CDT) CHOLESTEROL 190 <=200 mg/dL 01/03/2020 12:17 PM CDT [facility] TRIGLYCERIDES 140 <150 mg/dL 01/03/2020 12:17 PM CDT [facility] HDL CHOLESTEROL 54.2 >40 mg/dL 0 12:17 PM CDT [facility] LDL 108 5 - 130 mg/dL 01/03/2020 12:17 PM CDT [facility] VLDL 28 5 - 55 mg/dL 01/03/2020 12:17 PM CDT [facility] CHOL/HDL RATIO 3.5 0.0 - 4.4 01/03/2020 12:17 PM CDT [facility] NON-HDL CHOLESTEROL 135.8(H) <130 mg/dL 01/03/2020 12:17 PM CDT [facility] LIPID FASTING 01/03/2020 12:17 PM CDT [facility] Blood Venipuncture / Unknown 01/03/2020 11:00 AM CDT 01/03/2020 11:46 AM CDT us Luann Cox MD CHEMISTRY ORDERABLES Final R esult Performing Organization Address City/[facility]/ZIP Co de Phone Number [facility] [address] [place] [address] * (ABNORMAL) CMP (COMPREHENSIVE METABOLIC PANEL) (01/03/2020 11:00 AM CDT) SODIUM 136 136 - 144 mmol/L 01/03/2020 12:17 PM CDT [facility] POTASSIUM 4.0 3.5 - 5.1 mmol/L 01/03/2020 12:17 PM CDT [facility] CHLORIDE 100 100 - 110 mmol/L 01/03/2020 12:17 PM CDT [facility] CO2, VENOUS 27 22 - 32 mmol/L 01/03/2020 12:17 PM CDT [facility] ANION GAP 13.0 8.0 - 20.0 mmol/L 01/03/2020 12:17 PM CDT [facility] GLUCOSE 96 70 - 99 mg/dL 01/03/2020 12:17 PM CDT [facility] BUN 17 8 - 23 mg/dL 01/03/2020 12:17 PM CDT [facility] CREATININE, BLOOD 0.69 0.60 - 1.10 mg/dL 01/03/2020 12:17 PM T [facility] BUN/CREATININE RATIO 25(H) 12 - 20 ratio 01/03/2020 12:17 PM T [facility] TOTAL PROTEIN 7.0 6.0 - 8.3 g/dL 01/03/2020 12:17 PM T [facility] ALBUMIN 4.5 3.5 - 5.2 g/dL 01/03/2020 12:17 PM T [facility] Comment: The colormetric methods used for the determination of Albumin may lead to falsely elevated test results in patients suffering from renal failure or insufficiency due to interference with other proteins. A/G RATIO 1.8 1.0 - 2.0 01/03/2020 12:17 PM T [facility] CALCIUM 9.4 8.9 - 10.3 mg/dL 01/03/2020 12:17 PM CDT [facility] T BILI 0.3 <=1.2 mg/dL 01/03/2020 12:17 PM CDT [facility] SGOT (AST) 28 <=32 U/L 01/03/2020 12:17 PM CDT [facility] SGPT (ALT) 30 <=33 U/L 01/03/2020 12:17 PM CDT [facility] ALKALINE PHOSPHATASE 90 35 - 105 U/L 01/03/2020 12:17 PM CDT [facility] GFR, EST. NONAFRICAN >60 >=60 01/03/2020 12:17 PM CDT [facility] GFR, EST. >60 >=60 020 12:17 PM CDT [facility] Comment: Creatinine Clearance is the preferred criteria for selecting drug dose adjustments in renally impaired patients. The GFR is provided as additional pertinent clinical information. GFR is reported in mL/min/1.73 sq m. Blood Venipuncture / Unknown 01/03/2020 11:00 AM CDT 01/03/2020 11:46 AM CDT us Luann Cox MD CHEMISTRY ORDERABLES Final R esult [facility] [address] [place] [address] documented in this encounter Visit Diagnoses Diagnosis [...] - 19 05/07/2023 05/07/2023 05/07/2023 9:50 AM WAREHOUSE GUARD COVID - 19 Confirmed 05/07/2023 05/07/2023 023 12:16 AM WAREHOUSE GUARD C. difficile Rule-Out 09/24/2023 09/24/20232023 3:41 PM CDT COVID - 19 09/24/2023 09/24/2023 09/24/2023 11:3 2 AM CDT C. difficile Rule-Out 09/27/2023 09/27/20232023 2:13 PM CDT COVID - 19 02/23/2024 02/23/2024 02/23/2024 11:2 8 AM CDT Respiratory Rule-Out 02/23/2024 02/23/2024 024 11:30 AM CDT Assessment Noted Time PHQ-9 Depression Total Score: 2 07/14/19 20 10:00 AM WAREHOUSE GUARD documented as of this encounter Care Teams Information And Referral Director Relationship Specialty Start Date End Date Luann Cox MD PCP - General Family Medicine 04/15/15 11/02/22 Josiane Pacheco MD [address] [place] [address] PCP - General Family Medicine 11/20/22 07/30/23 Darwin Marti MD [address] [place] [address] PCP - General Internal Medicine 07/31/23 Blair Paris MD 4 [facility] , [address] [place] [address] Consulting Physician Orthopaedic Sports Medicine 07/31/23 Jose A Espinosa MD 2 [facility] [address] [place] [address] Consulting Physician Pain Medicine-Pain Management 07/31/23 02/08/24 Hao Silvestre MD [address] [address] Consulting Physician Neurological Surgery 07/31/23 Carlos Dailey MD #[address] [address] Consulting Physician Colon and Rectal Surgery 10/26/23 Saida Mckeon APRN, MASTER OCEAN YACHT [address] [place] [address] Nurse Practitioner Gastroenterology 10/26/23 Jessenia Ward APRN, FUR IRONER [address] [place] [address] Nurse Practitioner Neurology 11/17/23 Hao Silvestre MD [address] [address] Consulting Physician Neurological Surgery 02/09/2401/27 Dominic Wang MD [place], [place] Consulting Physician Pain Medicine-Pain Management 02/09/24 Butch Muñiz MD [address] [place] [address] Consulting Physician Neurology 02/23/24 documented as of this encounter
--- OUTSIDE RECORDS SUMMARY | 2024-09-24 10:33 | XMS_ITS | Encounter Summary ---
Author Organization [facility] Address [address] [place] [address] Phone Care Team Providers Care Copier Technician Name Role Phone Luann Cox MD Primary Care Provider + [phone] Josiane Pacheco MD Primary Care Provider + [phone] Blair Paris MD Unavailable [phone] Jose A Espinosa MD Unavailable [phone] Darwin Marti MD Primary Care Provider [phone] Hao Silvestre MD Unavailable [phone] Carlos Dailey MD Unavailable Saida Mckeon APRN, RAW SILK GRADER Unavailable Jessenia Ward APRN, ROLLER Unavailable + [phone] Hao Silvestre MD Unavailable +[phone] Dominic Wang MD Unavailable [phone] Butch Muñiz MD Unavailable +[phone] Reason for Visit * Reason Comments Medication Refill Encounter Details Date Type Department Care Team (Late st Contact Info) Description 02/15/2020 Refill [facility] - [facility] - [facility] [address] [place] [address] Luann Cox MD [address] [place] [address] Medication Refill Social History Tobacco [...] Description 02/20/2025 9:30 AM CDT [facility] - [place] [address] [place] [address] Jessenia Ward APRN, ROLLER [address] [place] [address] 03/02/2025 9:15 AM CDT Office Visit [facility] - Primary Care - Franco [address] [place] [address] Darwin Marti MD [address] [place], [place] [address] documented as of this encounter Visit Diagnoses Diagnosis History of arthroscopy of left shoulder documented in this encounter Additional Health Concerns Infection Onset Date Last Indicated Resolved Time ESBL 08/16/2018 08/16/2018 09/28/2023 9:03 AM CDT COVID - 19 03/09/2023 03/09/2023 03/19/2023 12:1 6 AM CDT Respiratory Rule-Out 03/09/2023 03/09/2023 023 2:09 AM CDT COVID - 19 05/07/2023 05/07/2023 05/07/2023 9:50 AM TILE SETTER COVID - 19 Confirmed 05/07/2023 05/07/2023 023 12:16 AM TILE SETTER C. difficile Rule-Out 09/24/2023 09/24/20232023 3:41 PM CDT COVID - 19 09/24/2023 09/24/2023 09/24/2023 11:3 2 AM CDT C. difficile Rule-Out 09/27/2023 09/27/20232023 2:13 PM CDT COVID - 19 02/23/2024 02/23/2024 02/23/2024 11:2 8 AM CDT Respiratory Rule-Out 02/23/2024 02/23/2024 024 11:30 AM CDT Assessment Noted Time PHQ-9 Depression Total Score: 2 07/14/19 20 10:00 AM TILE SETTER documented as of this encounter Care Teams Copier Technician Relationship Specialty Start Date End Date Luann Cox MD PCP - General Family Medicine 04/15/15 11/02/22 Josiane Pacheco MD [address] [place] [address] PCP - General Family Medicine 11/20/22 07/30/23 Darwin Marti MD [address] [place] [address] PCP - General Internal Medicine 07/31/23 Blair Paris MD 4 [facility] [address] [place] [address] Consulting Physician Orthopaedic Sports Medicine 07/31/23 Jose A Espinosa MD 2 [facility] [address] [place] [address] Consulting Physician Pain Medicine-Pain Management 07/31/23 02/08/24 Hao Silvestre MD [address] [address] Consulting Physician Neurological Surgery 07/31/23 Carlos Dailey MD #2 [facility] [address] [place] [address] Consulting Physician Colon and Rectal Surgery 10/26/23 Saida Mckeon APRN, RAW SILK GRADER [address] [place] [address] Nurse Practitioner Gastroenterology 10/26/23 Jessenia Ward APRN, [facility] [address] [place] [address] Nurse Practitioner Neurology 11/17/23 Hao Silvestre MD [address] [address] Consulting Physician Neurological Surgery 02/09/2401/27 Dominic Wang MD [place], [place] Consulting Physician Pain Medicine-Pain Management 02/09/24 Butch Muñiz MD #[address] [place] [address] Consulting Physician Neurology 02/23/24 documented as of this encounter
--- OUTSIDE RECORDS SUMMARY | 2024-09-24 10:33 | XMS_ITS | Encounter Summary ---
Author Organization [facility] Address [address] [place] [address] Phone Care Team Providers Care Drafter Geophysical Name Role Phone Blair Paris MD Unavailable +[phone] Darwin Marti MD Primary Care Provider + [phone] Hao Silvestre MD Unavailable +[phone] Carlos Dailey MD Unavailable Saida Mckeon APRN, BOOKSEAMER BLINDSTITCH Unavailable Jessenia Ward APRN, PRODUCTION ENGINEER TRACK Unavailable + [phone] Dominic Wang MD Unavailable [phone] Butch Muñiz MD Unavailable [phone] Reason for Visit * Reason Comments Medication Refill Encounter Details Date Type Department Care Team (Late st Contact Info) Description 03/04/2024 Refill [facility] - Primary Care - Franco [address] [place] [address] Darwin Marti MD [address] [place] [address] Medication Refill Social History Tobacco Use Types Packs/Day Years Used Date Smoking Tobacco: Former Cigarettes 2 41.8 1 964 - 04/09/2005 Smokeless Tobacco: Never Alcohol Use Standard Drinks/Week Comments No 0 (1 standard drink = 0.6 oz pur e alcohol) [facility] Utilities Answer Date Recorded In the [...] often do you attend chur ch or latter-day services? Never 09/26/2023 Do you belong to any clubs o r organizations such as shinto groups, unions, fraternal or athletic groups, or [...] Answer Date Recorded PHQ-2 Score 2 07/14/2019 [facility] [place] of Occupat ional Health - Occupational Stress [...] place to sleep or slept in a retirement (including now)? No 09/26/2023 Sexually Active Control [...] Description 02/20/2025 9:30 AM CDT [facility] - [place] [address] [place] [address] Jessenia Ward, DEPARTMENTAL BUYER, PRODUCTION ENGINEER TRACK [address] [place] [address] 03/02/2025 9:15 AM CDT [facility] Visit [facility] - Primary Care - Franco [address] [place] [address] Darwin Marti MD [address] [place] [address] documented as of this encounter Visit Diagnoses Not on filedocumented in this encounter Additional Health Concerns Assessment Noted Time PHQ-9 Depression Total Score: 0 07/31/19 24 12:53 PM SECURITY ANALYST documented as of this encounter Care Teams Drafter Geophysical Relationship Specialty Start Date End Date Darwin Marti MD [address] [place] [address] PCP - General Internal Medicine 07/31/23 Blair Paris MD [address] [place] [address], [facility] [address] [place] [address] Consulting Physician Orthopaedic Sports Medicine 07/31/23 Hao Silvestre MD [address] [place] [address] Consulting Physician Neurological Surgery 07/31/23 Carlos Dailey MD #[address] [address] Consulting Physician Colon and Rectal Surgery 10/26/23 Saida Mckeon APRN, BOOKSEAMER BLINDSTITCH [address] [place] [address] Nurse Practitioner Gastroenterology 10/26/23 Jessenia Ward APRN, PRODUCTION ENGINEER TRACK [address] [place] [address] Nurse Practitioner Neurology 11/17/23 Dominic Wang MD [place], [place] Consulting Physician Pain Medicine-Pain Management 02/09/24 Butch Muñiz MD #[address] [place] [address] Consulting Physician Neurology 02/23/24 documented as of this encounter
--- OUTSIDE RECORDS SUMMARY | 2024-09-24 10:33 | XMS_ITS | Encounter Summary ---
Author Organization [facility] Address [address] [place] [address] Phone Care Team Providers Care Director Patient Financial Services Name Role Phone Luann Cox MD Primary Care Provider + [phone] Josiane Pacheco MD Primary Care Provider + [phone] Blair Paris MD Unavailable [phone] Jose A Espinosa MD Unavailable [phone] Darwin Marti MD Primary Care Provider [phone] Hao Silvestre MD Unavailable [phone] Carlos Dailey MD Unavailable Saida Mckeon APRN, TYRE RETREADER Unavailable Jessenia Ward APRN, GUIDE WINDER Unavailable +- [phone] Hao Silvestre MD Unavailable +[phone] Dominic Wang MD Unavailable [phone] Butch Muñiz MD Unavailable +[phone] Reason for Visit * Reason Comments Medication Refill Encounter Details Date Type Department Care Team ([facility] Contact Info) Description 12/12/2021 Refill [facility] Primary Care [facility] [address] [place] [phone] Luann Cox MD [address] [place] [address] Medication Refill Social History Tobacco [...] Upcoming Encounters Date Type Department Care Team ([facility] Contact Info) Description 02/20/2025 9:30 AM CDT [facility] [place] [address] Jessenia Ward, BAKERY WORKER, GUIDE WINDER [address] [place] [address] 03/02/2025 9:15 AM CDT Office Visit [facility] - Primary Care - [place] [address] [place] [address] Darwin Marti MD [address] [place] [address] documented as of this encounter Visit Diagnoses Diagnosis Essential hypertension Unspecified essential hypertension documented in this encounter Additional Health Concerns Infection Onset Date Last Indicated Resolved Time ESBL 08/16/2018 08/16/2018 09/28/2023 9:03 AM CDT COVID - 19 03/09/2023 03/09/2023 03/19/2023 12:1 6 AM CDT Respiratory Rule-Out 03/09/2023 03/09/2023 023 2:09 AM CDT COVID - 19 05/07/2023 05/07/2023 05/07/2023 9:50 AM TRANSPORTATION TECHNICIAN COVID - 19 Confirmed 05/07/2023 05/07/2023 023 12:16 AM TRANSPORTATION TECHNICIAN C. difficile Rule-Out 09/24/2023 09/24/20232023 3:41 PM CDT COVID - 19 09/24/2023 09/24/2023 09/24/2023 11:3 2 AM CDT C. difficile Rule-Out 09/27/2023 09/27/20232023 2:13 PM CDT COVID - 19 02/23/2024 02/23/2024 02/23/2024 11:2 8 AM CDT Respiratory Rule-Out 02/23/2024 02/23/2024 024 11:30 AM CDT Assessment Noted Time PHQ-9 Depression Total Score: 2 07/14/19 20 10:00 AM TRANSPORTATION TECHNICIAN documented as of this encounter Care Teams Director Patient Financial Services Relationship Specialty Start Date End Date Luann Cox MD PCP - General Family Medicine 04/15/15 11/02/22 Josiane Pacheco MD [address] [place] [address] PCP - General Family Medicine 11/20/22 07/30/23 Darwin Marti MD [address] [place] [address] PCP - General Internal Medicine 07/31/23 Blair Paris MD 4 [facility] [address] [place] [address] Consulting Physician Orthopaedic Sports Medicine 07/31/23 Jose A Espinosa MD 2 [facility] [address] [place] [address] Consulting Physician Pain Medicine-Pain Management 07/31/23 02/08/24 Hao Silvestre MD [address] [address] Consulting Physician Neurological Surgery 07/31/23 Carlos Dailey MD #2 [facility] [address] [place] [address] Consulting Physician Colon and Rectal Surgery 10/26/23 Saida Mckeon APRN, TYRE RETREADER [address] [place] [address] Nurse Practitioner Gastroenterology 10/26/23 Jessenia Ward APRN, GUIDE WINDER [address] [place] [address] Nurse Practitioner Neurology 11/17/23 Hao Silvestre MD [address] [address] Consulting Physician Neurological Surgery 02/09/2401/27 Dominic Wang MD [place], [place] Consulting Physician Pain Medicine-Pain Management 02/09/24 Butch Muñiz MD #[address] [place] [address] Consulting Physician Neurology 02/23/24 documented as of this encounter
--- OUTSIDE RECORDS SUMMARY | 2024-09-24 10:33 | XMS_ITS | Encounter Summary ---
Author Organization [facility] Address [address] [place] [address] Phone Care Team Providers Care E Mail System Administrator Name Role Phone Blair Paris MD Unavailable [phone] Jose A Espinosa MD Unavailable [phone] Darwin Marti MD Primary Care Provider [phone] Hao Silvestre MD Unavailable +[phone] Carlos Dailey MD Unavailable Saida Mckeon APRN, SEAM FELLER Unavailable Jessenia Ward APRN, [facility] Unavailable + [phone] Hao Silvestre MD Unavailable +[phone] Dominic Wang MD Unavailable Butch Muñiz MD Unavailable [phone] Reason for Visit * Reason Comments Medication Refill Encounter Details Date Type Department Care Team (Late Contact Info) Description 08/18/2023 [facility] - [place] [address] [place] [address] Ranjeet Boston PAC [address] [place] [address] Medication Refill Social History Tobacco [...] - 08/18/2023 1:20 PM CST Duplicate Request CASER documented in this encounter Plan of Treatment Upcoming Encounters Date Type Department Care Team (Late Contact Info) Description 02/20/2025 9:30 AM CDT Office Visit [facility] - Neurology - [place] [address] [place] [address] Jessenia Ward APRN, JD EDWARDS DEVELOPER [address] [place] [address] 03/02/2025 9:15 AM CDT Office Visit [facility] Primary Care - [place] [address] [place] [address] Darwin Marti MD [address] [place] [address] documented as of this encounter Visit Diagnoses [...] Depression Total Score: 0 07/31/19 12:53 PM EGG CASER documented as of this encounter Care Teams E Mail System Administrator Relationship Specialty Start Date End Date Darwin Marti MD [address] [place] [address] PCP - General Internal Medicine 07/31/23 Blair Paris MD 4 [facility] , [address] [place] [address] Consulting Physician Orthopaedic Sports Medicine 07/31/23 Jose A Espinosa MD 2 [facility] [address] [place] [address] Consulting Physician Pain Medicine-Pain Management 07/31/23 02/08/24 Hao Silvestre MD [address] [address] Consulting Physician Neurological Surgery 07/31/23 Carlos Dailey MD #[address] [address] Consulting Physician Colon and Rectal Surgery 10/26/23 Saida Mckeon APRN, SEAM FELLER [address] [place] [address] Nurse Practitioner Gastroenterology 10/26/23 Jessenia Ward APRN, JD EDWARDS DEVELOPER [address] [place] [address] Nurse Practitioner Neurology 11/17/23 Hao Silvestre MD [address] [address] Consulting Physician Neurological Surgery 02/09/2401/27 Dominic Wang MD [place], [place] Consulting Physician Pain Medicine-Pain Management 02/09/24 Butch Muñiz MD [address] [place] [address] Consulting Physician Neurology 02/23/24 documented as of this encounter
--- OUTSIDE RECORDS SUMMARY | 2024-09-24 10:33 | XMS_ITS | Encounter Summary ---
Author Organization [facility] Address [address] [place] [address] Care Team Providers Care Inside Technical Sales Representative Name Role Phone Luann Cox MD Primary Care Provider [phone] Ana Hassan Unavailable [phone] Darwin Marti MD Primary Care Provider [phone] Encounter Details Date Type Department Care Team (Late st Contact Info) Description 10/19/2021 Ophth Exam [facility] [address] [place] [address] Brielle Howe MD [address] [place] [address] [place] [address] Social History Tobacco Use Types [...] on filedocumented in this encounter Care Teams Inside Technical Sales Representative Relationship Specialty Start Date End Date Luann Cox MD PCP - General Family Medicine 05/06/21 10/26/23 Darwin Marti MD [address] [place] [address] PCP - General Internal Medicine 10/27/23 Ana Hassan Care Coordination Specialist Care Management 10/27/23 10/27/23 documented as of this encounter
--- OUTSIDE RECORDS SUMMARY | 2024-09-24 10:33 | XMS_ITS | Clinical Summary ---
Author Organization [facility] Address [address] [facility] [place] [address] Care Team Providers Care District Captain Name Role Phone Darwin Marti MD Primary Care Provider [phone] Source Comments [facility],non-owned Affiliates and Associated Physician Practices is amultiple site organization consisting of ambulatory clinics and hospital sitesin [place], [place], [place] and [place]. This disclosure is being madepursuant to the Care Everywhere program and may not contain all information available regarding this patient. Last updated 18.[facility] Allergies Active Allergy Reactions Criticality Noted Date [...] Reaction: Vomiting, Penicillins Other,Unknown 03/28/2021 Reaction: Unknown, [place] Unknown 06/15/2015 Sulfa Drugs Other 02/08/2020 Reaction: [...] complete this topic MENINGOCOCCAL (Group B) VACCINE SHARED DECISION-MAKING Aged Out No longer eligible based on patient's age to complete this topic MENINGOCOCCAL GROUPS A/C/Y/W VACCINE Aged Out No longer eligible based on patient's age to complete this topic Advance Directives * Full Code (Latest Code Status on File) Date Activated Date Inactivated Comments 10/18/2021 5:32 PM 10/19/2021 1:05 PM Care Teams District Captain Relationship Specialty Start Date End Date Darwin Marti MD [address] [place] [address] PCP - General Internal Medicine 10/27/23
--- OUTSIDE RECORDS SUMMARY | 2024-09-24 10:33 | XMS_ITS | Encounter Summary ---
Author Organization [facility] Address [address] [place] [address] Phone Care Team Providers Care Nickel Plant Operator Name Role Phone Luann Cox MD Primary Care Provider + [phone] Josiane Pacheco MD Primary Care Provider + [phone] Blair Paris MD Unavailable [phone] Jose A Espinosa MD Unavailable [phone] Darwin Marti MD Primary Care Provider [phone] Hao Silvestre MD Unavailable [phone] Carlos Dailey MD Unavailable Saida Mckeon APRN, POURER CRANE LADLE Unavailable Jessenia Ward APRN, AUTO BODY STRAIGHTENER Unavailable + [phone] Hao Silvestre MD Unavailable [phone] Dominic Wang MD Unavailable [phone] Butch Muñiz MD Unavailable [phone] Reason for Visit * Reason Comments Medication Refill Encounter Details Date Type Department Care Team (Late st Contact Info) Description 04/06/2020 Refill [facility] [address] [place] [address] Luann Cox MD [address] [place] [address] Medication Refill Social History Tobacco [...] Outpatient Visits 2 months ago Essential hypertension [facility] Luann Cox MD 9 months ago Essential hypertension [facility] Luann Torres MD 1 year ago Essential hypertension [facility] 1 year ago Syncope, unspecified syncope type [facility] Luann Torres MD 1 year ago Sore throat [facility] Hanley MD Upcoming Appointments Future Appointments In [address], [facility] In 3 months [facility], [facility] In 3 months Luann Cox MD [facility] ACTUARIAL SCIENCE TEACHER - Recent and Past Visits Recent Visits Date Type Provider Dept 01/12/20 Office Visit Luann Cox MD [facility] 07/14/19 Office Visit Luann Cox MD [facility] 01/11/19 Office Visit Luann Cox MD [facility] Showing recent visits within [...] Outpatient Visits 2 months ago Essential hypertension [facility] Luann Cox MD 9 months ago Essential hypertension [facility] Hanley MD 1 year ago Essential hypertension [facility] - uLann Torres MD 1 year ago Syncope, unspecified syncope type [facility] Bensonuru, Luann, MD 1 year ago Sore throat [facility] - Luann Torres MD Upcoming Appointments Future Appointments In 1 month [facility] MRI, [facility] In 3 months Lab, [place] [facility] In 3 months Luann Cox MD [facility] ACTUARIAL SCIENCE TEACHER - Recent and Past Visits Recent Visits Date Type Provider Dept 01/12/20 Office Visit Luann Cox MD [facility] 07/14/19 Office Visit Luann Cox MD [facility] 01/11/19 Office Visit Luann Cox MD [facility] Showing recent visits within [...] Description 02/20/2025 9:30 AM CDT Office Visit [facility] Neurology [facility] [address] [place] [address] Jessenia Ward, STRUCTURAL DRAFTSMAN, [facility] [address] [place] [address] 03/02/2025 9:15 AM CDT Office Visit [facility] - Primary Care - [place] [address] [place] [address] Darwin Marti MD [address] [place] [address] documented as of this encounter Visit Diagnoses Diagnosis Gastroesophageal reflux disease Esophageal reflux documented in this encounter Additional Health Concerns Infection Onset Date Last Indicated Resolved Time ESBL 08/16/2018 08/16/2018 09/28/2023 9:03 AM CDT COVID - 19 03/09/2023 03/09/2023 03/19/2023 12:1 6 AM CDT Respiratory Rule-Out 03/09/2023 03/09/2023 023 2:09 AM CDT COVID - 19 05/07/2023 05/07/2023 05/07/2023 9:50 AM CASH POSTER COVID - 19 Confirmed 05/07/2023 05/07/2023 023 12:16 AM CASH POSTER C. difficile Rule-Out 09/24/2023 09/24/20232023 3:41 PM CDT COVID - 19 09/24/2023 09/24/2023 09/24/2023 11:3 2 AM CDT C. difficile Rule-Out 09/27/2023 09/27/20232023 2:13 PM CDT COVID - 19 02/23/2024 02/23/2024 02/23/2024 11:2 8 AM CDT Respiratory Rule-Out 02/23/2024 02/23/2024 024 11:30 AM CDT Assessment Noted Time PHQ-9 Depression Total Score: 2 07/14/19 20 10:00 AM CASH POSTER documented as of this encounter Care Teams Nickel Plant Operator Relationship Specialty Start Date End Date Luann Cox MD PCP - General Family Medicine 04/15/15 11/02/22 Josiane Pacheco MD [address] [place] [address] PCP - General Family Medicine 11/20/22 07/30/23 Darwin Marti MD [address] [place] [address] PCP - General Internal Medicine 07/31/23 Blair Paris MD 4 [facility] [address] [place] [address] Consulting Physician Orthopaedic Sports Medicine 07/31/23 Jose A Espinosa MD 2 [facility] [address] [place] [address] Consulting Physician Pain Medicine-Pain Management 07/31/23 02/08/24 Hao Silvestre MD [address] [address] Consulting Physician Neurological Surgery 07/31/23 Carlos Dailey MD #[address] [facility] [address] [place] [address] Consulting Physician Colon and Rectal Surgery 10/26/23 Saida Mckeon APRN, POURER CRANE LADLE [address] [place] [address] Nurse Practitioner Gastroenterology 10/26/23 Jessenia Ward APRN, AUTO BODY STRAIGHTENER [address] [place] [address] Nurse Practitioner Neurology 11/17/23 Hao Silvestre MD [address] [address] Consulting Physician Neurological Surgery 02/09/2401/27 Dominic Wang MD [place], [place] Consulting Physician Pain Medicine-Pain Management 02/09/24 Butch Muñiz MD #[address] [place] [address] Consulting Physician Neurology 02/23/24 documented as of this encounter
--- OUTSIDE RECORDS SUMMARY | 2024-09-24 10:33 | XMS_ITS | Encounter Summary ---
Author Organization [facility] Address [address] [place] [address] Phone Care Team Providers Care Embosser Operator Name Role Phone Luann Cox MD Primary Care Provider + [phone] Josiane Pacheco MD Primary Care Provider + [phone] Blair Paris MD Unavailable [phone] Jose A Espinosa MD Unavailable [phone] Darwin Marti MD Primary Care Provider [phone] Hao Silvestre MD Unavailable +[phone] Carlos Daiely MD Unavailable Saida Mckeon APRN, DIRECTOR OF QUANTITATIVE RESEARCH Unavailable Jessenia Ward APRN, CONNECTION WORKER Unavailable +- [phone] Hao Silvestre MD Unavailable +[phone] Dominic Wang MD Unavailable [phone] Butch Muñiz MD Unavailable +[phone] Reason for Visit * Reason Comments Medication Refill Encounter Details Date Type Department Care Team (Late st Contact Info) Description 03/01/2022 Refill [facility] - Primary Care - [place] [address] [place] [address] Luann Cox MD [address] [place] [address] Medication Refill Social History Tobacco [...] Dept 12/16/21 Office Visit [facility] 06/27/21 Office Visit Luann Cox MD [facility] 03/07/21 Office Visit Luann Cox MD [facility] Showing recent visits within past 365 days and meeting all other requirements Future Appointments Date Type Provider Dept 05/23/22 Appointment [place] [facility] 05/29/22 Appoint[address] Luann Cox MD [facility] Showing future appointments within next 90 [...] Dept 12/16/21 Office Visit Luann Cox MD [facility] 06/27/21 Office Visit Luann Cox MD [facility] 03/07/21 Office Visit Luann Cox MD [facility] Showing recent visits within past 365 days and meeting all other requirements Future Appointments Date Type Provider Dept 05/23/22 Appointment Lab, [place] [facility] 05/29/22 Appointment Luann Cox MD [facility] Showing future appointments within next 90 days and meeting all other requirements documented in this encounter Plan of Treatment Upcoming Encounters Date Type Department Care Team (Late st Contact Info) Description 02/20/2025 9:30 AM CDT Office Visit [facility] - Neurology - [place] [address] [place] [address] Jessenia Ward APRN, CONNECTION WORKER [address] [place] [address] 03/02/2025 9:15 AM CDT Office Visit [facility] - Primary Care - [place] [address] [place] [address] Darwin Marti MD [address] [place] [address] documented as of this encounter Visit Diagnoses Diagnosis Neuropathy Mononeuritis of unspecified site documented in this encounter Additional Health Concerns Infection Onset Date Last Indicated Resolved Time ESBL 08/16/2018 08/16/2018 09/28/2023 9:03 AM CDT COVID - 19 03/09/2023 03/09/2023 03/19/2023 12:1 6 AM CDT Respiratory Rule-Out 03/09/2023 03/09/2023 023 2:09 AM CDT COVID - 19 05/07/2023 05/07/2023 05/07/2023 9:50 AM QUALITY CONTROL LAB TECH COVID - 19 Confirmed 05/07/2023 05/07/2023 023 12:16 AM QUALITY CONTROL LAB TECH C. difficile Rule-Out 09/24/2023 09/24/20232023 3:41 PM CDT COVID - 19 09/24/2023 09/24/2023 09/24/2023 11:3 2 AM CDT C. difficile Rule-Out 09/27/2023 09/27/20232023 2:13 PM CDT COVID - 19 02/23/2024 02/23/2024 02/23/2024 11:2 8 AM CDT Respiratory Rule-Out 02/23/2024 02/23/2024 024 11:30 AM CDT Assessment Noted Time PHQ-9 Depression Total Score: 2 07/14/19 20 10:00 AM QUALITY CONTROL LAB TECH documented as of this encounter Care Teams Embosser Operator Relationship Specialty Start Date End Date Luann Cox MD PCP - General Family Medicine 04/15/15 11/02/22 Josiane Pacheco MD [address] [place] [address] PCP - General Family Medicine 11/20/22 07/30/23 Darwin Marti MD [address] [place] [address] PCP - General Internal Medicine 07/31/23 Blair Paris MD 4 [facility] , [address] [place] [address] Consulting Physician Orthopaedic Sports Medicine 07/31/23 Jose A Espinosa MD 2 [facility] [address] [place] [address] Consulting Physician Pain Medicine-Pain Management 07/31/23 02/08/24 Hao Silvestre MD [address] [facility] [address] [place] [address] Consulting Physician Neurological Surgery 07/31/23 Carlos Dailey MD #[address] [address] Consulting Physician Colon and Rectal Surgery 10/26/23 Saida Mckeon APRN, DIRECTOR OF QUANTITATIVE RESEARCH [address] [place] [address] Nurse Practitioner Gastroenterology 10/26/23 Jessenia Ward APRN, CONNECTION WORKER [address] [place] [address] Nurse Practitioner Neurology 11/17/23 Hao Silvestre MD [address] [address] Consulting Physician Neurological Surgery 02/09/2401/27 Dominic Wang MD [place], [place] Consulting Physician Pain Medicine-Pain Management 02/09/24 Butch Muñiz MD #[address] [place] [address] Consulting Physician Neurology 02/23/24 documented as of this encounter
--- OUTSIDE RECORDS SUMMARY | 2024-09-24 10:33 | XMS_ITS | Encounter Summary ---
Author Organization [facility] Address [address] [place] [address] [place] [address] Phone Care Team Providers Care Health Advisor Name Role Phone Luann Cox MD Primary Care Provider + [phone] Josiane Pacheco MD Primary Care Provider + [phone] Blair Paris MD Unavailable +[phone] Jose A Espinosa MD Unavailable [phone] Darwin Marti MD Primary Care Provider +[phone] Hao Silvestre MD Unavailable +[phone] Carlos Dailey MD Unavailable Saida Mckeon APRN, HOSPICE CLINICAL MARKETER Unavailable Jessenia Ward APRN, SOLAR POOL HEATING INSTALLER Unavailable + [phone] Hao Silvestre MD Unavailable +[phone] Dominic Wang MD Unavailable [phone] Butch Muñiz MD Unavailable [phone] Reason for Visit * Reason Comments Medication Refill Encounter Details Date Type Department Care Team (Late Contact Info) Description 04/24/2020 Refill [facility] Primary Care - [place] [address] [place] [address] Luann Cox MD [address] [place] [address] Medication Refill Social History Tobacco [...] - Neurology - [place] [address] [place] [address] Jessenia Ward, FRENCH COMBER, SOLAR POOL HEATING INSTALLER [address] [place] [address] 03/02/2025 9:15 AM CDT Office Visit [facility] - Primary Care - [place] [address] [place] [address] Darwin Marti MD [address] [place] [address] documented as of this encounter [...] - 19 05/07/2023 05/07/2023 05/07/2023 9:50 AM CRYSTAL CUTTER COVID - 19 Confirmed 05/07/2023 05/07/2023 023 12:16 AM CRYSTAL CUTTER C. difficile Rule-Out 09/24/2023 09/24/20232023 3:41 PM CDT COVID - 19 09/24/2023 09/24/2023 09/24/2023 11:3 2 AM CDT C. difficile Rule-Out 09/27/2023 09/27/20232023 2:13 PM CDT COVID - 19 02/23/2024 02/23/2024 02/23/2024 11:2 8 AM CDT Respiratory Rule-Out 02/23/2024 02/23/2024 024 11:30 AM CDT Assessment Noted Time PHQ-9 Depression Total Score: 2 01/16/20 20 10:00 AM CRYSTAL CUTTER documented as of this encounter Care Teams Health Advisor Relationship Specialty Start Date End Date Luann Cox MD PCP - General Family Medicine 04/15/15 11/02/22 Josiane Pacheco MD [address] [place] [address] PCP - General Family Medicine 11/20/22 07/30/23 Darwin Marti MD [address] [place] [address] PCP - General Internal Medicine 07/31/23 Blair Paris MD 4 [facility] [address] [place] [address] Consulting Physician Orthopaedic Sports Medicine 07/31/23 Jose A Espinosa MD [address] [address] Consulting Physician Pain Medicine-Pain Management 07/31/23 02/08/24 Hao Silvestre MD [address] [address] Consulting Physician Neurological Surgery 07/31/23 Carlos Dailey MD [address] [address] Consulting Physician Colon and Rectal Surgery 10/26/23 Saida Mckeon APRN, HOSPICE CLINICAL MARKETER [address] [place] [address] Nurse Practitioner Gastroenterology 10/26/23 Jessenia Ward APRN, SOLAR POOL HEATING INSTALLER [address] [place] [address] Nurse Practitioner Neurology 11/17/23 Hao Silvestre MD [address] [address] Consulting Physician Neurological Surgery 02/09/2401/27 Dominic Wang MD [place], [place] Consulting Physician Pain Medicine-Pain Management 02/09/24 Butch Muñiz MD #2 [place] [address] Consulting Physician Neurology 02/23/24 documented as of this encounter
--- OUTSIDE RECORDS SUMMARY | 2024-09-24 10:33 | XMS_ITS | Encounter Summary ---
Author Organization [facility] Address [address] [place] [address] Phone Care Team Providers Care Knotting Machine Operator Portable Name Role Phone Luann Cox MD Primary Care Provider + [phone] Josiane Pacheco MD Primary Care Provider + [phone] Blair Paris MD Unavailable +[phone] Jose A Espinosa MD Unavailable [phone] Darwin Marti MD Primary Care Provider [phone] Hao Silvestre MD Unavailable [phone] Carlos Dailey MD Unavailable Saida Mckeon APRN, ENGINEERING INTERN Unavailable Jessenia Ward APRN, OUTBOUND SUPERVISOR Unavailable +- [phone] Hao Silvestre MD Unavailable +[phone] Dominic Wang MD Unavailable [phone] Butch Muñiz MD Unavailable +[phone] Reason for Visit * Reason Comments Medication Refill Encounter Details Date Type Department Care Team (Late st Contact Info) Description 11/29/2021 Refill [facility] - Primary Care - [place] [address] [place] [id number] Luann Cox MD [address] [place] [address] Medication Refill Social History Tobacco [...] Dept 06/27/21 Office Visit Luann Cox MD [facility] Flight Steward [facility] 03/07/21 Office Visit Luann Cox MD [facility] Franco [facility] Showing recent visits within past 365 days and meeting all other requirements Future Appointments Date Type Provider Dept 12/10/21 Appointment Lab, [facility] Flight Steward [facility] 12/16/21 Appointment Luann Cox MD [facility] Franco [facility] Showing future appointments within next 90 [...] Dept 06/27/21 Office Visit [facility] MD [facility]21 Office Visit [facility] Show[facility] recent visits within past 365 days and meeting all other requirements Future Appointments Date Type Provider Dept 12/10/21 Appointment Lab, [facility] 12/16/21 Appointment Luann Cox MD [facility] Showing future appointments within next 90 days and meeting all other requirements Passed - GFR on record in past 12 months GFR, EST. NONAFRICAN Date Value Ref Range Status 10/14/2021 >60 >=60 Final documented in this encounter Plan of Treatment Upcoming Encounters Date Type Department Care Team (Late st Contact Info) Description 02/20/2025 9:30 AM CDT Office Visit [facility] - Neurology [facility] [address] [place] [address] Jessenia Ward, LUGGAGE MAKER, OUTBOUND SUPERVISOR [address] [place] [address] 03/02/2025 9:15 AM CDT Office Visit [facility] - Primary Care - [place] [address] [address] Darwin Marti MD [address] [address] documented as of this encounter Visit Diagnoses Diagnosis Essential hypertension Unspecified essential hypertension documented in this encounter Additional Health Concerns Infection Onset Date Last Indicated Resolved Time ESBL 08/16/2018 08/16/2018 09/28/2023 9:03 AM CDT COVID - 19 03/09/2023 03/09/2023 03/19/2023 12:1 6 AM CDT Respiratory Rule-Out 03/09/2023 03/09/2023 023 2:09 AM CDT COVID - 19 05/07/2023 05/07/2023 05/07/2023 9:50 AM MOCCASIN SEWER COVID - 19 Confirmed 05/07/2023 05/07/2023 023 12:16 AM MOCCASIN SEWER C. difficile Rule-Out 09/24/2023 09/24/20232023 3:41 PM CDT COVID - 19 09/24/2023 09/24/2023 09/24/2023 11:3 2 AM CDT C. difficile Rule-Out 09/27/2023 09/27/20232023 2:13 PM CDT COVID - 19 02/23/2024 02/23/2024 02/23/2024 11:2 8 AM CDT Respiratory Rule-Out 02/23/2024 02/23/2024 024 11:30 AM CDT Assessment Noted Time PHQ-9 Depression Total Score: 2 07/14/19 20 10:00 AM MOCCASIN SEWER documented as of this encounter Care Teams Knotting Machine Operator Portable Relationship Specialty Start Date End Date Luann Cox MD PCP - General Family Medicine 04/15/15 11/02/22 Josiane Pacheco MD [address] [place] [address] PCP - General Family Medicine 11/20/22 07/30/23 Darwin Marti MD [address] [place] [address] PCP - General Internal Medicine 07/31/23 Blair Paris MD [address] [place] [address] Consulting Physician Orthopaedic Sports Medicine 07/31/23 Jose A Espinosa MD [address] [address] Consulting Physician Pain Medicine-Pain Management 07/31/23 02/08/24 Hao Silvestre MD [address] [address] Consulting Physician Neurological Surgery 07/31/23 Carlos Dailey MD #[address] [address] Consulting Physician Colon and Rectal Surgery 10/26/23 Saida Mckeon APRN, ENGINEERING INTERN [address] [place] [address] Nurse Practitioner Gastroenterology 10/26/23 Jessenia Ward APRN, OUTBOUND SUPERVISOR [address] [place] [address] Nurse Practitioner Neurology 11/17/23 Hao Silvestre MD [address] [address] Consulting Physician Neurological Surgery 02/09/2401/27 Dominic Wang MD [place], [place] Consulting Physician Pain Medicine-Pain Management 02/09/24 Butch Muñiz MD [address] [place] [address] Consulting Physician Neurology 02/23/24 documented as of this encounter
--- OUTSIDE RECORDS SUMMARY | 2024-09-24 10:33 | XMS_ITS | Encounter Summary ---
Author Organization [facility] Address [address] [place] [address] Phone Care Team Providers Care Alternative Medicine Practitioner Name Role Phone Josiane Pacheco MD Primary Care Provider [phone] Blair Paris MD Unavailable [phone] Jose A Espinosa MD Unavailable [phone] Darwin Marti MD Primary Care Provider [phone] Hao Silvestre MD Unavailable [phone] Carlos Dailey MD Unavailable Saida Mckeon APRN, PARK GUARD Unavailable Jessenia Ward APRN, BRAKE RIDER Unavailable + [phone] Hao Silvestre MD Unavailable Dominic Wang MD Unavailable [phone] Butch Muñiz MD Unavailable [phone] Reason for Visit * Reason Comments Medication Refill Encounter Details Date Type Department Care Team (Late st Contact Info) Description 01/18/2023 [facility]ill [facility] - [facility] Care - [place] [address] [place] [address] Josiane Pacheco MD [address] [place] [address] Medication Refill Social History Tobacco Use Types [...] Dept 05/29/22 Office Visit Luann Cox MD [facility] Showing recent visits within past 365 days and meeting all other requirements Future Appointments Date Type Provider Dept 01/29/23 Appointment Josiane Pacheco MD [facility] Showing future appointments within next 90 [...] Dept 05/29/22 Office Visit Luann Cox MD [facility] Showing recent visits within past 365 days and meeting all other requirements Future Appointments Date Type Provider Dept 01/29/23 Appointment Josiane Pacheco MD [facility] Showing future appointments within next 90 [...] Dept 05/29/22 Office Visit Luann Cox MD [facility] Showing recent visits within past 365 days and meeting all other requirements Future Appointments Date Type Provider Dept 01/29/23 Appointment Josiane Pacheco MD [facility] Showing future appointments within next 90 [...] Dept 05/29/22 Office Visit Luann Cox MD [facility] Showing recent visits within past 365 days and meeting all other requirements Future Appointments Date Type Provider Dept 01/29/23 Appointment Josiane Pacheco MD [facility] Showing future appointments within next 90 [...] Dept 05/29/22 Office Visit Luann Cox MD [facility] Showing recent visits within past 365 days and meeting all other requirements Future Appointments Date Type Provider Dept 01/29/23 Appointment Josiane Pacheco MD [facility] Showing future appointments within next 90 days and meeting all other requirements documented in this encounter Plan of Treatment Upcoming Encounters Date Type Department Care Team (Late st Contact Info) Description 02/20/2025 9:30 AM CDT Office Visit [facility] - Neurology - [place] [address] [place] [address] Jessenia Ward APRN, BRAKE RIDER [address] [place] [address] 03/02/2025 9:15 AM CDT Office Visit [facility] - Primary Care - [place] [address] [place] [address] Darwin Marti MD [address] [place] [address] documented as of this encounter Visit Diagnoses [...] - 19 05/07/2023 05/07/2023 05/07/2023 9:50 AM PATIENT FINANCIAL COORDINATOR COVID - 19 Confirmed 05/07/2023 05/07/2023 023 12:16 AM PATIENT FINANCIAL COORDINATOR C. difficile Rule-Out 09/24/2023 09/24/20232023 3:41 PM CDT COVID - 19 09/24/2023 09/24/2023 09/24/2023 11:3 2 AM CDT C. difficile Rule-Out 09/27/2023 09/27/20232023 2:13 PM CDT COVID - 19 02/23/2024 02/23/2024 02/23/2024 11:2 8 AM CDT Respiratory Rule-Out 02/23/2024 02/23/2024 024 11:30 AM CDT Assessment Noted Time PHQ-9 Depression Total Score: 2 07/14/19 20 10:00 AM PATIENT FINANCIAL COORDINATOR documented as of this encounter Care Teams Alternative Medicine Practitioner Relationship Specialty Start Date End Date Josiane Pacheco MD [address] [place] [address] PCP - General Family Medicine 11/20/22 07/30/23 Darwin Marti MD [address] [place] [address] PCP - General Internal Medicine 07/31/23 Blair Paris MD 4 [facility] [address] [place] [address] Consulting Physician Orthopaedic Sports Medicine 07/31/23 Jose A Espinosa MD 2 [facility] [address] [place] [address] Consulting Physician Pain Medicine-Pain Management 07/31/23 02/08/24 Hao Silvestre MD [address] [address] Consulting Physician Neurological Surgery 07/31/23 Carlos Dailey MD #2 [facility] [address] [place] [address] Consulting Physician Colon and Rectal Surgery 10/26/23 Saida Mckeon APRN, PARK GUARD [address] [place] [address] Nurse Practitioner Gastroenterology 10/26/23 Jessenia Ward, BUSINESS ADVISOR, BRAKE RIDER [address] [place] [address] Nurse Practitioner Neurology 11/17/23 Hao Silvestre MD [address] [address] Consulting Physician Neurological Surgery 02/09/2401/27 Dominic Wang MD [place], [place] Consulting Physician Pain Medicine-Pain Management 02/09/24 Butch Muñiz MD [address] [place] [address] Consulting Physician Neurology 02/23/24 documented as of this encounter
== END 2024-09-24 10:28 | disposition home or self-care (01) ==
PROVIDERS: PCP Internal Medicine; Visit Provider Neurological Surgery
DX: M51.369 Other intervertebral disc degeneration, lumbar region without mention of lumbar back pain or lower extremity pain (principal); M47.897 Other spondylosis, lumbosacral region; Z98.1 Arthrodesis status
CPT/HCPCS: 72148

== ENCOUNTER 2024-12-29 07:55 | Outpatient (CLI) | payer MEDICARE, OTHER, SELFPAY ==
--- OUTSIDE RECORDS SUMMARY | 2024-12-29 08:02 | XMS_ITS | Encounter Summary ---
Author Organization [facility] Address [address] [place] [address] Phone Care Team Providers Care Clam Treader Name Role Phone Luann Cox MD Primary Care Provider + [phone] Josiane Pacheco MD Primary Care Provider + [phone] Blair Paris MD Unavailable [phone] Jose A Espinosa MD Unavailable [phone] Darwin Marti MD Primary Care Provider [phone] Hao Silvestre MD Unavailable [phone] Carlos Dailey MD Unavailable Saida Mckeon APRN, VICE PRESIDENT LENDING Unavailable Jessenia Ward APRN, OFFSET PLATE PREPARATION SUPERVISOR Unavailable + [phone] Hao Silvestre MD Unavailable [phone] Dominic Wang MD Unavailable [phone] Butch Muñiz MD Unavailable [phone] Reason for Visit * Reason Comments Medication Refill Encounter Details Date Type Department Care Team (Late st Contact Info) Description 01/27/2021 Refill [facility] - Primary Care - [place] [address] [place] [id number] Luann Cox MD [address] [place] [address] Medication Refill Social History Tobacco [...] stenosis, lumbar region, with neurogenic claudication [facility] - Family Medicine - [facility] Luann Cox MD 6 months ago Uncomplicated asthma [facility] Luann Cox MD 1 year ago Essential hypertension [facility] Luann Cox MD 1 year ago Essential hypertension [facility] Luann Cox MD 2 years ago Essential hypertension [facility] Luann Cox MD Upcoming Appointments Future Appointments In 1 month Luann Cox MD [facility] MACHINE OPERATOR GENERAL - Recent and Past Visits Recent Visits Date Type Provider Dept 09/06/20 Office Visit Luann Cox MD [facility] 07/24/20 Office Visit Luann Cox MD [facility] 01/12/20 Office Visit Luann Cox MD [facility] Showing recent visits within past 460 days with a meds authorizing provider and meeting all other requirements Future Appointments Date Type Provider Dept 03/07/21 Appointment Luann Cox MD [facility] Showing future appointments within next [...] Dept 09/06/20 Office [facility] 07/24/20 Office Visit Luann Cox MD [facility] Showing recent visits within past 365 days and meeting all other requirements Future Appointments Date Type Provider Dept 03/07/21 Appointment Luann Cox MD [facility] Showing future appointments within next 90 days and meeting all other requirements documented in this encounter Plan of Treatment Upcoming Encounters Date Type Department Care Team (Late st Contact Info) Description 02/20/2025 9:30 AM CDT Office Visit [facility] - Neurology - [place] [address] [place] [address] Jessenia Ward APRN, OFFSET PLATE PREPARATION SUPERVISOR [address] [place] [address] 03/09/2025 2:30 PM CDT Office Visit [facility] - Family Medicine - [place] [address] [place] [address] Juan Shrestha MD [address] [address] documented as of this encounter Visit Diagnoses Diagnosis Neuropathy Mononeuritis of unspecified site documented in this encounter Additional Health Concerns Infection Onset Date Last Indicated Resolved Time ESBL 08/16/2018 08/16/2018 09/28/2023 9:03 AM CDT COVID - 19 03/09/2023 03/09/2023 03/19/2023 12:1 6 AM CDT Respiratory Rule-Out 03/09/2023 03/09/2023 023 2:09 AM CDT COVID - 19 05/07/2023 05/07/2023 05/07/2023 9:50 AM MATRIX REPAIRER COVID - 19 Confirmed 05/07/2023 05/07/2023 023 12:16 AM MATRIX REPAIRER C. difficile Rule-Out 09/24/2023 09/24/20232023 3:41 PM CDT COVID - 19 09/24/2023 09/24/2023 09/24/2023 11:3 2 AM CDT C. difficile Rule-Out 09/27/2023 09/27/20232023 2:13 PM CDT COVID - 19 02/23/2024 02/23/2024 02/23/2024 11:2 8 AM CDT Respiratory Rule-Out 02/23/2024 02/23/2024 024 11:30 AM CDT Assessment Noted Time PHQ-9 Depression Total Score: 2 07/14/19 20 10:00 AM MATRIX REPAIRER documented as of this encounter Care Teams Clam Treader Relationship Specialty Start Date End Date Luann Cox MD PCP - General Family Medicine 04/15/15 11/02/22 Josiane Pacheco MD [address] [place] [address] PCP - General Family Medicine 11/20/22 07/30/23 Darwin Marti MD [address] [place] [address] PCP - General Internal Medicine 07/31/23 Blair Paris MD 4 [facility] [address] [place] [address] Consulting Physician Orthopaedic Sports Medicine 07/31/23 Jose A Espinosa MD 2 [facility] [address] [place] [address] Consulting Physician Pain Medicine-Pain Management 07/31/23 02/08/24 Hao Silvestre MD [address] [id number] Consulting Physician Neurological Surgery 07/31/23 Carlos Dailey MD #2 [facility] [address] [place] [address] Consulting Physician Colon and Rectal Surgery 10/26/23 Saida Mckeon APRN, VICE PRESIDENT LENDING [address] [place] [address] Nurse Practitioner Gastroenterology 10/26/23 Jessenia Ward APRN, OFFSET PLATE PREPARATION SUPERVISOR [address] [place] [address] Nurse Practitioner Neurology 11/17/23 Hao Silvestre MD [address] [facility] [address] [place] [address] Consulting Physician Neurological Surgery 02/09/2401/27 Dominic Wang MD [address] [facility] [address] [place] [address] Consulting Physician Pain Medicine-Pain Management 02/09/24 Butch Muñiz MD [address] [place] [address] Consulting Physician Neurology 02/23/24 documented as of this encounter
--- OUTSIDE RECORDS SUMMARY | 2024-12-29 08:02 | XMS_ITS | Encounter Summary ---
Author Organization [facility] Address [address] [place] [address] Phone Care Team Providers Care Bartenders Name Role Phone Luann Cox MD Primary Care Provider + [phone] Josiane Pacheco MD Primary Care Provider + [phone] Blair Paris MD Unavailable [phone] Jose A Espinosa MD Unavailable [phone] Darwin Marti MD Primary Care Provider +[phone] Hao Silvestre MD Unavailable [phone] Carlos Dailey MD Unavailable Saida Mckeon APRN, COMMUNITY CENTER COORDINATOR Unavailable Jessenia Ward APRN, SACK SORTER Unavailable [phone] Hao Silvestre MD Unavailable Dominic Wang MD Unavailable [phone] Butch Muñiz MD Unavailable Reason for Visit * Reason Comments Medication Refill Encounter Details Date Type Department Care Team (Late Contact Info) Description 11/11/2020 [facility] [address] [place] [id number] Luann Cox MD [address] [place] [address] Medication Refill Social History Tobacco [...] 9:30 AM CDT [facility] Visit [facility] [address] [place] [id number] Jessenia Ward, AWAKE OVERNIGHT COUNSELOR, SACK SORTER [address] [place] [address] 03/09/2025 2:30 PM CDT Office Visit [facility] Family Medicine - [place] [address] [place] [address] Juan Shrestha MD #[address] [address] documented as of this encounter Visit Diagnoses Diagnosis Essential hypertension Unspecified essential hypertension documented in this encounter Additional Health Concerns Infection Onset Date Last Indicated Resolved Time ESBL 08/16/2018 08/16/2018 09/28/2023 9:03 AM CDT COVID - 19 03/09/2023 03/09/2023 03/19/2023 12:1 6 AM CDT Respiratory Rule-Out 03/09/2023 03/09/2023 023 2:09 AM CDT COVID - 19 05/07/2023 05/07/2023 05/07/2023 9:50 AM MECHANICAL PLANNER COVID - 19 Confirmed 05/07/2023 05/07/2023 023 12:16 AM MECHANICAL PLANNER C. difficile Rule-Out 09/24/2023 09/24/20232023 3:41 PM CDT COVID - 19 09/24/2023 09/24/2023 09/24/2023 11:3 2 AM CDT C. difficile Rule-Out 09/27/2023 09/27/20232023 2:13 PM CDT COVID - 19 02/23/2024 02/23/2024 02/23/2024 11:2 8 AM CDT Respiratory Rule-Out 02/23/2024 02/23/2024 024 11:30 AM CDT Assessment Noted Time PHQ-9 Depression Total Score: 2 07/14/19 20 10:00 AM MECHANICAL PLANNER documented as of this encounter Care Teams Bartenders Relationship Specialty Start Date End Date Luann Cox MD PCP - General Family Medicine 04/15/15 11/02/22 Josiane Pacheco MD [address] [place] [address] PCP - General Family Medicine 11/20/22 07/30/23 Darwin Marti MD [address] [place] [address] PCP - General Internal Medicine 07/31/23 Blair Paris MD [address] [facility] [address] [place] [address] Consulting Physician Orthopaedic Sports Medicine 07/31/23 Jose A Espinosa MD 2 [facility] [address] [place] [address] Consulting Physician Pain Medicine-Pain Management 07/31/23 02/08/24 Hao Silvestre MD [address] [place] [address] Consulting Physician Neurological Surgery 07/31/23 Carlos Dailey MD #[address] [address] Consulting Physician Colon and Rectal Surgery 10/26/23 Saida Mckeon APRN, COMMUNITY CENTER COORDINATOR [address] [place] [address] Nurse Practitioner Gastroenterology 10/26/23 Jessenia Ward APRN, SACK SORTER [address] [place] [address] Nurse Practitioner Neurology 11/17/23 Hao Silvestre MD [address] [address] Consulting Physician Neurological Surgery 02/09/2401/27 Dominic Wang MD [address] [address] Consulting Physician Pain Medicine-Pain Management 02/09/24 Butch Muñiz MD [address] [place] [address] Consulting Physician Neurology 02/23/24 documented as of this encounter
--- OUTSIDE RECORDS SUMMARY | 2024-12-29 08:02 | XMS_ITS | Encounter Summary ---
Author Organization [facility] Address [address] [place] [address] Phone Care Team Providers Care Technical Support Representative Name Role Phone Luann Cox MD Primary Care Provider + [phone] Josiane Pacheco MD Primary Care Provider + [phone] Blair Paris MD Unavailable [phone] Jose A Espinosa MD Unavailable [phone] Darwin Marti MD Primary Care Provider +[phone] Hao Silvestre MD Unavailable [phone] Carlos Dailey MD Unavailable Saida Mckeon APRN, INSPECTOR FABRIC Unavailable Jessenia Ward APRN, SCIENTIFIC INVESTIGATOR Unavailable + [phone] Hao Silvestre MD Unavailable [phone] Dominic Wang MD Unavailable [phone] Butch Muñiz MD Unavailable +[phone] Reason for Visit * Reason Comments Medication Refill Encounter Details Date Type Department Care Team (Late st Contact Info) Description 01/02/2021 [facility] - [place] [address] [place] [address] Luann Cox MD [address] [place] [address] Medication Refill Social History Tobacco [...] Dept 09/06/20 Office Visit Luann Cox MD [facility] 07/24/20 Office Visit Luann Cox MD [facility] 01/12/20 Office Visit Luann Cox MD [facility] Showing recent visits within past 365 days and meeting all other requirements Future Appointments Date Type Provider Dept 03/07/21 Appointment Luann Cox MD [facility] Showing future appointments within next 90 [...] Spinal stenosis, lumbar region, with neurogenic claudication [facility] Luann Cox MD 5 months ago Uncomplicated asthma [facility] Luann Cox MD 11 months ago Essential hypertension [facility] Luann Cox MD 1 year ago Essential hypertension [facility] Luann Cox MD 1 year ago Essential hypertension [facility] Luann Cox MD Upcoming Appointments Future Appointments In 2 months Luann Cox MD [facility] - Recent and Past Visits Recent Visits Date Type Provider Dept 09/06/20 Office Visit Luann Cox MD [facility] 07/24/20 Office Visit Luann Cox MD [facility] 01/12/20 Office Visit Luann Cox MD [facility] Showing recent visits within past 460 days with a meds authorizing provider and meeting all other requirements Future Appointments Date Type Provider Dept 03/07/21 Appointment Luann Cox MD [facility] Showing future appointments within next 90 [...] Dept 09/06/20 Office Visit [facility] MD [facility] 07/24/20 Office Visit Luann Cox MD [facility] 01/12/20 Office Visit [facility] Showing recent visits within past 365 days and meeting all other requirements Future Appointments Date Type Provider Dept 03/07/21 Appointment Luann Cox MD [facility] Showing future appointments within next 90 days [...] Dept 09/06/20 Office Visit [facility] MD [facility] 07/24/20 Office [facility] 01/12/20 Office Visit Luann Cox MD [facility] Showing recent visits within past 365 days and meeting all other requirements Future Appointments Date Type Provider Dept 03/07/21 Appointment Luann Cox MD [facility] Showing future appointments within next 90 days and meeting all other requirements [facility]: Antiulcer - Proton Pump Inhibitors Passed - 01/02/2021 12:58 PM Passed - Valid encounter within last 12 months Past Office Visits Recent Outpatient Visits 3 months ago Spinal stenosis, lumbar region, with neurogenic claudication [facility] Luann Cox MD 5 months ago Uncomplicated asthma [facility] Luann Cox MD 11 months ago Essential hypertension [facility] Luann Cox MD 1 year ago Essential hypertension [facility] Luann Cox MD 1 year ago Essential hypertension [facility] Luann Cox MD Upcoming Appointments Future Appointments In 2 months Luann Cox MD [facility] STATISTICAL CLERK - Recent and Past Visits Recent Visits Date Type Provider Dept 09/06/20 Office Visit Luann Cox MD [facility] 07/[facility]/20 Office Visit Luann Cox MD [facility] 01/12/20 Office Visit Luann Cox MD [facility] Showing recent visits within past 460 days with a meds authorizing provider and meeting all other requirements Future Appointments Date Type Provider Dept 03/07/21 Appointment Luann Cox MD [facility] Showing future appointments within next 90 days with a meds authorizing provider and meeting all other requirements documented in this encounter Plan of Treatment Upcoming Encounters Date Type Department Care Team (Late st Contact Info) Description 02/20/2025 9:30 AM CDT Office [facility] [address] [place] [address] Jessenia Ward APRN, SCIENTIFIC INVESTIGATOR [address] [place] [address] 03/09/2025 2:30 PM CDT Office Visit [facility] - Family Medicine - [place] [address] [facility] [place] [address] Juan Shrestha MD #[address] [address] documented as of this encounter Visit Diagnoses [...] - 19 05/07/2023 05/07/2023 05/07/2023 9:50 AM ANESTHESIOLOGIST COVID - 19 Confirmed 05/07/2023 05/07/2023 023 12:16 AM ANESTHESIOLOGIST C. difficile Rule-Out 09/24/2023 09/24/20232023 3:41 PM CDT COVID - 19 09/24/2023 09/24/2023 09/24/2023 11:3 2 AM CDT C. difficile Rule-Out 09/27/2023 09/27/20232023 2:13 PM CDT COVID - 19 02/23/2024 02/23/2024 02/23/2024 11:2 8 AM CDT Respiratory Rule-Out 02/23/2024 02/23/2024 024 11:30 AM CDT Assessment Noted Time PHQ-9 Depression Total Score: 2 07/14/19 20 10:00 AM ANESTHESIOLOGIST documented as of this encounter Care Teams Technical Support Representative Relationship Specialty Start Date End Date Luann Cox MD PCP - General Family Medicine 04/15/15 11/02/22 Josiane Pacheco MD [address] [place] [address] PCP - General Family Medicine 11/20/22 07/30/23 Darwin Marti MD [address] [place] [address] PCP - General Internal Medicine 07/31/23 Blair Paris MD 4 [facility] [address] [place] [address] Consulting Physician Orthopaedic Sports Medicine 07/31/23 Jose A Espinosa MD 2 [facility] [address] [place] [address] Consulting Physician Pain Medicine-Pain Management 07/31/23 02/08/24 Hao Silvestre MD [address] [address] Consulting Physician Neurological Surgery 07/31/23 Carlos Dailey MD #2 [facility] [address] [place] [address] Consulting Physician Colon and Rectal Surgery 10/26/23 Saida Mckeon APRN, INSPECTOR FABRIC [address] [place] [address] Nurse Practitioner Gastroenterology 10/26/23 Jessenia Ward APRN, SCIENTIFIC INVESTIGATOR [address] [place] [address] Nurse Practitioner Neurology 11/17/23 Hao Silvestre MD [address] [facility] [address] [place] [address] Consulting Physician Neurological Surgery 02/09/2401/27 Dominic Wang MD [address] [address] Consulting Physician Pain Medicine-Pain Management 02/09/24 Butch Muñiz MD #[address] [place] [address] Consulting Physician Neurology 02/23/24 documented as of this encounter
--- OUTSIDE RECORDS SUMMARY | 2024-12-29 08:02 | XMS_ITS | Encounter Summary ---
Author Organization [facility] Address [address] [place] [address] Phone Care Team Providers Care Manufacturing Test Engineer Name Role Phone Luann Cox MD Primary Care Provider + [phone] Josiane Pacheco MD Primary Care Provider + [phone] Blair Paris MD Unavailable [phone] Jose A Espinosa MD Unavailable [phone] Darwin Marti MD Primary Care Provider [phone] Hao Silvestre MD Unavailable [phone] Carlos Dailey MD Unavailable Saida Mckeon APRN, SIGNAL TOWER DIRECTOR Unavailable [place], Jessenia M MANAGER BRIDGE, OFFICE ANALYST Unavailable [phone] Hao Silvestre MD Unavailable [phone] Dominic Wang MD Unavailable [phone] Butch Muñiz MD Unavailable [phone] Reason for Visit * Reason Comments Medication Refill Encounter Details Date Type Department Care Team (Late Contact Info) Description 02/23/20[facility] [place] [address] [place] [address] Luann Cox MD [address] [place] [address] Medication Refill Social History Tobacco [...] [facility] - Neurology - [place] [address] [place] [address] Jessenia Ward, MANAGER BRIDGE, OFFICE ANALYST [address] [place] [address] 03/09/2025 2:30 PM CDT Office Visit [facility] - Family Medicine - [place] [address] [place] [address] Juan Shrestha MD [address] [address] documented as of this encounter Visit Diagnoses Diagnosis Essential hypertension Unspecified essential hypertension documented in this encounter Additional Health Concerns Infection Onset Date Last Indicated Resolved Time ESBL 08/16/2018 08/16/2018 09/28/2023 9:03 AM CDT COVID - 19 03/09/2023 03/09/2023 03/19/2023 12:1 6 AM CDT Respiratory Rule-Out 03/09/2023 03/09/2023 023 2:09 AM CDT COVID - 19 05/07/2023 05/07/2023 05/07/2023 9:50 AM ACADEMIC SPECIALIST COVID - 19 Confirmed 05/07/2023 05/07/2023 023 12:16 AM ACADEMIC SPECIALIST C. difficile Rule-Out 09/24/2023 09/24/20232023 3:41 PM CDT COVID - 19 09/24/2023 09/24/2023 09/24/2023 11:3 2 AM CDT C. difficile Rule-Out 09/27/2023 09/27/20232023 2:13 PM CDT COVID - 19 02/23/2024 02/23/2024 02/23/2024 11:2 8 AM CDT Respiratory Rule-Out 02/23/2024 02/23/2024 024 11:30 AM CDT Assessment Noted Time PHQ-9 Depression Total Score: 2 07/14/19 20 10:00 AM ACADEMIC SPECIALIST documented as of this encounter Care Teams Manufacturing Test Engineer Relationship Specialty Start Date End Date Luann Cox MD PCP - General Family Medicine 04/15/15 11/02/22 Josiane Pacheco MD [address] [place] [address] PCP - General Family Medicine 11/20/22 07/30/23 Darwin Marti MD [address] [place] [address] PCP - General Internal Medicine 07/31/23 Blair Paris MD 4 [facility] [address] [place] [address] Consulting Physician Orthopaedic Sports Medicine 07/31/23 Jose A Espinosa MD [address] [address] Consulting Physician Pain Medicine-Pain Management 07/31/23 02/08/24 Hao Silvestre MD [address] [address] Consulting Physician Neurological Surgery 07/31/23 Carlos Dailey MD #[address] [address] Consulting Physician Colon and Rectal Surgery 10/26/23 Saida Mckeon APRN, SIGNAL TOWER DIRECTOR [address] [place] [address] Nurse Practitioner Gastroenterology 10/26/23 Jessenia Ward APRN, OFFICE ANALYST [address] [place] [address] Nurse Practitioner Neurology 11/17/23 Hao Silvestre MD [address] [place] [address] Consulting Physician Neurological Surgery 02/09/2401/27 Dominic Wang MD [address] [address] Consulting Physician Pain Medicine-Pain Management 02/09/24 Butch Muñiz MD #[address] [place] [address] Consulting Physician Neurology 02/23/24 documented as of this encounter
--- OUTSIDE RECORDS SUMMARY | 2024-12-29 08:02 | XMS_ITS | Continuity of Care Document ---
Author Organization [facility] [place] [address] [place] [address] Phone Care Team Providers Care Boat Joiner Name Role Phone Joao Mena OD Unavailable [...] Effective Dates (start - stop) Status Comments Vitamin D3 1,000 unit capsule take 1 by oral route every day 1 - Active ProAir RespiClick 90 mcg/actuation breath activated inhale 2 puff by inhalation route every 4 - 6 hours as needed 180 MCG - Active meclizine 25 mg tablet take 1 tablet by oral route 3 times every day as needed 25 MG - Active simvastatin 40 mg tablet take 1 tablet b y oral route every day in the evening 40 MG - Active Dulera 100 mcg-5 mcg/actuation HFA aerosol inhaler inhale 2 puff by inhalation route 2 times every day in the morning and evening 2.00 puff - Active fluticasone propionate 50 mcg/actuation nasal spray,suspension inhale 1 spray by intranasal route every day in each nostril 50 MCG - Active gabapentin 300 mg capsule take 1 capsule by oral route 3 times every day 300 MG - Active meloxicam 15 mg tablet take 1 tablet by oral route every day 15 MG - Active Tirosint 50 mcg capsule take 1 capsule b y oral route every day 50 MCG - Active cetirizine 10 mg tablet take 1 tablet by oral route every day 10 MG - Active tramadol 50 mg tablet take 1 tablet by oral route every 6 hours as needed 50 MG - Active hydrochlorothiazide 25 mg tablet take 1 tablet by oral route every day 25 MG - Active multivitamin capsule take 1 capsule by oral route every day - Active metoprolol tartrate 25 mg tablet take 1 tablet by oral route 2 times every day 25 MG - Active Procedures Procedure Date Post-op Follow-up Visit No Charge Refraction After Cataract Laser Surgery Post-op Follow-up Visit No Charge Refraction After Cataract Laser Surgery Office/outpatient Visit, [facility] Advance Directives Directive Yes / No Effective Date File Name No Information Encounters Encounter Description Practice Location Reason(s) For Visit Diagnoses Date Provider Providers Copied on Encounter [facility], [address], [place], [place], [id number], [place] tel:[phone] [facility] Professional Post-Op (chief complaint) Post op visit 9 Trina BURGOS Joao. [address] [facility], 6th Floor, [place], [address], [place]. tel:[phone] Referring Provider: Demetrio Pinzon OD, [facility] [address] [place] [address], [address]. tel:[phone] [facility], [address], [place], [place], [id number], [place] tel:[phone] [employer] Professional YAG PC (chief complaint) Post op visitOther secondary cataract, right eye 9 Maxwell Pearce. [address] [facility], [address], [place], [place], [address], [place]. tel:[phone] Referring Provider: Demetrio Pinzon OD, [employer] [address] [place] [address], [address]. tel:[phone] [facility], [address], [place], [place], [address], [place] tel:[phone] [facility] [place] Professional YAG PC (chief complaint) Presence of intraocular lensOther secondary cataract, bilateralEndot helial corneal dystrophy 9 Maxwell Pearce. [address] [facility], [address], [place], [place], [address], [place]. tel:[phone] Referring Provider: Demetrio Pinzon OD, [employer] [address] [facility], [place], [address]. tel:[phone] Family History Family Member Type Diagnosis Age At Onset Mother Problem (finding) Diabetes mellitus Payers Payer name Insurance type Covered green party ID Authoriza tion(s) No Information Social [...]
--- OUTSIDE RECORDS SUMMARY | 2024-12-29 08:03 | XMS_ITS | Encounter Summary ---
Author Organization [facility] Address [address] [place] [address] Phone Care Team Providers Care Casino Floorperson Name Role Phone Luann Cox MD Primary Care Provider + [phone] Josiane Pacheco MD Primary Care Provider + [phone] Blair Paris MD Unavailable [phone] Jose A Espinosa MD Unavailable [phone] Darwin Marti MD Primary Care Provider [phone] Hao Silvestre MD Unavailable [phone] Carlos Dailey MD Unavailable Saida Mckeon APRN, PRODUCTION TEAM MEMBER Unavailable Jessenia Ward APRN, TRAUMA MANAGER Unavailable + [phone] Hao Silvestre MD Unavailable +[phone] Dominic Wang MD Unavailable [phone] Butch Muñiz MD Unavailable [phone] Reason for Visit * Reason Comments Medication Refill Encounter Details Date Type Department Care Team (Late st Contact Info) Description 07/26/2021 Refill [facility] - [facility] Care - [place] [address] [place] [id number] Luann Cox MD [address] [place] [address] Medication Refill Social History Tobacco [...] COVID-19? No / Unsure 07/01/2021 11:16 AM FOURDRINIER OPERATOR documented as of this encounter Miscellaneous Notes * Telephone Encounter - Racquel Campos RN - 07/26/2021 9:30 AM FOURDRINIER OPERATOR Medication failed the protocol, provider to review [...] Dept 06/27/21 Office Visit Luann Cox MD [facility] [address] 03/07/21 Office Visit [facility] [address] 09/06/20 Office Visit Luann Cox MD [facility] [place] [facility] Showing recent visits within past 365 days and meeting all other requirements Future Appointments Date Type Provider Dept 10/21/[facility] Showing future appointments within next [...] Dept 06/27/21 Office Visit [facility] [address] 03/07/21 Office Visit Luann Cox MD [facility] [address] 09/06/20 Office Visit Luann Cox MD [facility] [place] [facility] Showing recent visits within past 365 days and meeting all other requirements Future Appointments Date Type Provider Dept 10/21/21 [facility] [place] [facility] Showing future appointments within next [...] Dept 06/27/21 Office Visit Luann Cox MD [facility] 03/07/21 Office Visit Luann Cox MD [facility] [place] [facility] 09/06/20 Office Visit Luann Cox MD [facility] Showing recent visits within past 365 days and meeting all other requirements Future Appointments Date Type Provider Dept 10/21/21 Appointment Lab, [facility] [place] [facility] Showing future appointments within next [...] Dept 06/27/21 Office Visit Luann Cox MD [facility] [place] [facility] 03/07/21 Office Visit Luann Cox MD [facility] [place] [facility] 09/06/20 Office Visit Luann Cox MD [facility] [place] [facility] Showing recent visits within past 365 days and meeting all other requirements Future Appointments Date Type Provider Dept 10/21/21 [facility] [place] [facility] Showing future appointments within next 90 days and meeting all other requirements DRINIER OPERATOR documented in this encounter Plan of Treatment Upcoming Encounters Date Type Department Care Team (Late st Contact Info) Description 02/20/2025 9:30 AM CDT [facility] [address] [place] [address] Jessenia Ward APRN, TRAUMA MANAGER [address] [place] [address] 03/09/2025 2:30 PM CDT Office Visit [facility] - Family Medicine - [place] [address] [place] [address] Juan Shrestha MD [address] [address] documented as of this encounter Visit Diagnoses [...] - 19 05/07/2023 05/07/2023 05/07/2023 9:50 AM FOURDRINIER OPERATOR COVID - 19 Confirmed 05/07/2023 05/07/2023 023 12:16 AM FOURDRINIER OPERATOR C. difficile Rule-Out 09/24/2023 09/24/20232023 3:41 PM CDT COVID - 19 09/24/2023 09/24/2023 09/24/2023 11:3 2 AM CDT C. difficile Rule-Out 09/27/2023 09/27/20232023 2:13 PM CDT COVID - 19 02/23/2024 02/23/2024 02/23/2024 11:2 8 AM CDT Respiratory Rule-Out 02/23/2024 02/23/2024 024 11:30 AM CDT Assessment Noted Time PHQ-9 Depression Total Score: 2 07/14/19 20 10:00 AM FOURDRINIER OPERATOR documented as of this encounter Care Teams Casino Floorperson Relationship Specialty Start Date End Date Luann Cox MD PCP - General Family Medicine 04/15/15 11/02/22 Josiane Pacheco MD [address] [place] [address] PCP - General Family Medicine 11/20/22 07/30/23 Darwin Marti MD [address] [place] [address] PCP - General Internal Medicine 07/31/23 Blair Paris MD 4 [facility] [address] [place] [address] Consulting Physician Orthopaedic Sports Medicine 07/31/23 Jose A Espinosa MD 2 [facility] [address] [place] [address] Consulting Physician Pain Medicine-Pain Management 07/31/23 02/08/24 Hao Silvestre MD [address] [address] Consulting Physician Neurological Surgery 07/31/23 Carlos Dailey MD #2 [facility] [address] [place] [address] Consulting Physician Colon and Rectal Surgery 10/26/23 Saida Mckeon APRN, PRODUCTION TEAM MEMBER [address] [place] [address] Nurse Practitioner Gastroenterology 10/26/23 Jessenia Ward APRN, TRAUMA MANAGER [address] [place] [address] Nurse Practitioner Neurology 11/17/23 [place] [address] [place] [address] [place] [address] Consulting Physician Neurological Surgery 02/09/2401/27 Dominic Wang MD [address] [address] Consulting Physician Pain Medicine-Pain Management 02/09/24 Butch Muñiz MD [address] [place] [address] Consulting Physician Neurology 02/23/24 documented as of this encounter
--- OUTSIDE RECORDS SUMMARY | 2024-12-29 08:03 | XMS_ITS | Clinical Summary ---
Author Organization [facility] Address [address] [place] [address] Phone Care Team Providers Care Claims Service Adjustor Name Role Phone Blair Paris MD Unavailable [phone] Darwin Marti MD Primary Care Provider [phone] Hao Silvestre MD Unavailable [phone] Carlos Dailey MD Unavailable Saida Mckeon APRN, CUT OUT MACHINE OPERATOR Unavailable Jessenia Ward APRN, SECTION BEAMER Unavailable + [phone] Dominic Wang MD Unavailable [phone] Butch Muñiz MD Unavailable [phone] Allergies Active Allergy Reactions Criticality Noted Date Comments Cephalosporins Rash Medium 02/08/2020 Codeine Unknown Meperidine Hives 06/15/2015 Fish Allergy Unknown,Other (see Comments) 06/15/2015 Reaction: Unknown, Kiwi Extract Unknown 06/15/2015 Latex Itching 06/15/2015 Penicillins Unknown Florissant Extract Unknown 06/15/2015 Sulfa Antibiotics Unknown Tetanus [...] 6 hours. 30 Tablet 03/09/20 23 Active lisinopril (PRINIVIL, ZESTRIL) 10 MG TabletIndicatio ns:Hypertension , essential Take 1 Tablet by mouth daily. 90 Tablet 3 01/01/20 24 Active gabapentin (NEURONTIN) 300 MG CapsuleIndicati ons:Neuropathy TAKE 1 CAPSULE BY MOUTH THREE TIMES DAILY 270 Capsule 03/21/20 24 Active budesonide-form oterol fumarate (SYMBICORT) 160-4.5 MCG/ACT [...] as needed 270 Tablet 08/30/19 25 Active simvastatin (ZOCOR) 40 MG Tablet Take 1 tablet by mouth once daily 90 Tablet 1 09/21/19 25 Active pantoprazole (PROTONIX) 40 MG Tablet Delayed Response Take 1 tablet by mouth once daily 90 Tablet 3 10/28/19 25 Active cetirizine (EQ Allergy Relief, Cetirizine,) 10 MG Tablet Take 1 Tablet by mouth daily. 90 Tablet 3 10/28/19 25 Active traMADol (ULTRAM) 50 MG TabletIndicatio ns:Costochondri tis, acute Take 1 Tablet by mouth every 6 hours as needed for Moderate or more severe pain. 12 Tablet 11/05/19 25 Active Additional Information Patient not taking.Reported on 11/08/2024 hydroCHLOROthia zide (MICROZIDE) 12.5 MG CapsuleIndicati ons:Hypertensio n, essential Take 1 capsule by mouth once daily 90 Capsule 11/16/19 25 Active meloxicam (MOBIC) 15 MG Tablet Take 1 Tablet by mouth daily. 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 07/04/202207/31/2023 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 4 Seizure 06/27/2021 07/31/2023 GERD (gastroesophageal reflux disease) 03/28/202107/31/2023 Degenerative lumbar spinal stenosis 03/28/202107/3102/09/2024 Orbital lesion 03/07/2021 07/31/2023 Chest pain 11/20/2019 01/12/2020 Nausea and vomiting 11/20/2019 01/12/20 Syncope and collapse 11/20/2019 020 'Dwnwj-rhd-zekzx' wit h signs of malnutrition 01/11/2019 01/11/2019 [...] Encounters Date Type Department Care Team Description [facility]/07[facility] [place] [address] [place] [address] Darwin Marti MD Medication Refill 11/20/2024 [facility] [place] [address] [place] [address] Darwin Marti MD Medication Refill 11/15/2024 [facility] [place] [address] [place] [address] Cassie Lara, ADMINISTRATIVE LIAISON, CUT OUT MACHINE OPERATOR Medication Refill 11/08/2024 8:45 AM CDT Urgent Care Visit [facility] [place] [address] [place] [address] Annetta Cherry, ADMINISTRATIVE LIAISON, CUT OUT MACHINE OPERATOR Herpes zoster without complication (Primary Dx) Discharge Disposition: Discharged to home or Selfcare 11/08/2024 Travel 11/04/2024 9:25 AM CDT Ancillary Procedure [facility] Diagnostic Radiology - [place] [address] [place] [address] Salbador Guidry, PAC Acute chest wall pain Discharge Disposition: Discharged to home or Selfcare 11/04/2024 9:05 AM CDT Urgent Care Visit [facility] [place] [address] [place] [address] Salbador Guidry, PAC Costochondritis, acute (Primary Dx); Acute chest wall pain Discharge Disposition: Discharged to home or Selfcare 11/04/2024 Travel 10/27/2024 Refill [facility] [place] [address] [place] [address] Darwin Marti MD Medication Refill from Last 3 Months Immunizations Immunization Administration Dates Next Due Covid-19, Mrna, Lnp-s, PF, 1 00 mcg/0.5 mL Dose (Moderna) 07/01/2021,11/06/2020,10/09/2020 Influenza Vaccine greater than 3 yrs 05/04/2019, 06/15/2015,03/29/2014 Influenza Vaccine, Quadrivalent, PF 07/2023,04/22/2022,03/07/2021,2020,07/15/2018,05/26/2017 Influenza, High-dose, Quadrivalent 03/18/2016 Influenza, Trivalent, [...] drink = 0.6 oz pur e alcohol) [facility] Utilities Answer Date Recorded In the past 12 months has [employer], gas, oil, or water [employer] threatened to shut off services in your home? No 08/25/2024 Social Connection and Isolation Panel Answer Date Recorded In a typical week, how many times do you talk on the phone with family, friends, or neighbors? More than three times a week 08/25/2024 How often do you get togethe r with friends or relatives? More than three times a week 08/25/2024 How often do you attend chur ch or zoroastrianism services? Never 08/25/2024 Do you belong to any clubs o r organizations such as congregational groups, unions, fraternal or athletic groups, or [...] Total Score - Questions 1-9 0 07/31 [facility] - Occupational [...] in a retirement (including now)? No 09/26/2023 Housing Stability Vital Sign Answer Matt e Recorded In the last 12 months, was t here a time when you were not able to pay the mortgage or rent on time? No 08/25/2024 Number of Times Moved in the Last Year Not on fi le 08/25/2024 At any time in the past 12 m [facility], were you homeless or living in a retirement (including now)? No 08/25/2024 Sexually Active Control [...] Sign Reading Time Taken Comments Blood Pressure 124/76 11/08/2024 8:53 AM CDT Pulse 78 11/08/2024 8:53 AM CDT Temperature 36.4 C (97.5 F) 11/08/2024 8:53 AM CDT Respiratory Rate 16 11/08/2024 8:53 AM CDT Oxygen Saturation 97% 11/08/2024 8:53 AM CDT Inhaled Oxygen Concentration - - Weight 74.4 kg (164 lb) 08/25/2024 2:18 PM KAI WHAKARURUHAU Height 162.6 cm (5' 4) 08/25/2024 2:18 PM KAI WHAKARURUHAU Body Mass Index 28.15 08/25/2024 2:18 PM KAI WHAKARURUHAU Plan of Treatment Upcoming Encounters Date Type Department Care Team (Late st Contact Info) Description 02/20/2025 9:30 AM CDT [facility] Visit [facility] - Neurology [facility] [address] [place] [id number] Jsesenia Ward APRN, SECTION BEAMER [address] [place] [address] 03/09/2025 2:30 PM CDT [facility] - Family Medicine - [place] [address] [place] [address] Juan Shrestha MD [address] [address] Health Maintenance Due Date Last Done Comments [...] Fecal Occult Blood Discontinued 09/26/2023, 08/16/2018 Colonoscopy Discontinued 12/03/2023, 11/2023, 07/22/2012 Colorectal Cancer Screening Discontinued Influenza Immunization Completed , 07/31/2023, 04/22/2022, Additional history exists Cologuard Discontinued Hepatitis B Immunization Aged Out No longer eligible based on patient's age to complete this topic Human Papillomavirus (HPV) Immunization Aged Out No longer eligible based on patient's age to complete this topic Meningococcal Immunization (ACWY) Aged Out No longer eligible based on patient's age to complete this topic Rotavirus Immunization Aged Out No lo nger eligible based on patient's age to complete this topic TdaP Immunization Discontinued Medical Devices Implanted Type Area Cash Applications Associate Device Identifier Shelf Expiration Date Model / Serial / Lot Bsplt Tib Trthln 3 Kn Prm Beaded Prpt - [id number] Implanted:Qty: 1 on 06/27/2015 by Benji Dickey MD at [facility] IMPLANT Right: Knee [employer] / [employer] 01/27/2020 5526-B-30 0 / / [id number] Ins Tib 3 9mm Kn X3 Cndrl Stab Trthln - [id number] Implanted:Qty: 1 on 06/27/2015 by [facility] IMPLANT Right: Knee [employer] 01/27/2020 5531-G-30 9 / / [id number] Bioinductive Arthroscopic Generation 3 Medium - [id number] Implanted:Qty: 1 on 11/30/2017 by Blair Paris [facility] IMPLANT Left: Shoulder [employer] 10/27/2019 2169-2 / 2169-2 / [id number] Tendon Staple Implant - [id number] Implanted:Qty: 1 on 11/30/2017 by Blair [facility] IMPLANT Left: Shoulder [employer] 05/18/2018 2504-1 / 2504-1 / [id number] Dell Bone 3 W/Arthroscopic Delivery System - [id number] Implanted:Qty: 1 on 11/30/2017 by Blair Paris MD at [facility] IMPLANT Left: Shoulder [employer] 06/30/2018 2503-A / 2503-A / [id number] Asym Metal Backed Patella Implanted:Qty: 1 on 06/27/2015 by Benji [facility]key [facility] at [facility] Right: Knee [employer] / [employer] 11/26/2019 [id number] / / [id number] Cruciate Retaining Femoral Implanted:Qty: 1 on 06/27/2015 by Benji Dickey MD at [facility] Right: Knee [employer] / ORTHOPA[employer] 04/03/2020 / / [id number] Procedures Procedure Name Priority Date/Time Associated Diagnosis Comments XR CHEST 2 VIEWS Stat with Interpretation 11/04/2024 9:33 AM CDT Acute chest wall pain STOOL, OCCULT BLOOD, DIAGNOSTIC, VIA GUAIAC STAT 09/26/2023 11:05 AM CDT HEPATITIS C ANTIBODY Routine 07/31/2023 1:37 PM KAI WHAKARURUHAU Encounter for hepatitis C screening test for low risk patient [facility] BONE DENSITOMETRY AXIAL SKELETON Routine 08/09/2021 9:35 AM KAI WHAKARURUHAU Postmenopausal [facility] DIAG BILATERAL DIGITAL W CAD W BRI Routine 03/08/2020 11:00 AM CDT Encounter for screening mammogram for breast cancer Abnormal mammogram HM COLONOSCOPY Routine 07/22/2012 from Last 3 Months or Most Recently Relevant to Health Maintenance Results * XR CHEST 2 VIEWS (11/04/2024 9:33 AM CDT) Anatomical Region Laterality Modality Chest N/A Digital Radiogra phy 11/04/2024 9:56 AM CDT Impressions 11/04/2024 9:59 AM CDT IMPRESSION: Mildly hyperinflated lungs without definite evidence of acute cardiopulmonary process. Cardiomegaly. Hiatal hernia. Narrative 11/04/2024 9:59 AM CDT EXAM DESCRIPTION: XR CHEST 2 VIEWS REASON FOR STUDY: One week hx of right posterior chest pain without trauma TECHNIQUE: Frontal and lateral radiographic view(s) of the chest. COMPARISON: 02/23/2024 FINDINGS: There is cardiomegaly. There is a hiatal hernia. The pulmonary vasculature and mediastinum are grossly stable. There is no definite evidence of a pneumothorax. There is no definite evidence of focal consolidation or pleural effusion. The lungs are mildly hyperinflated. The osseous structures are acutely grossly unremarkable. THIS IS AN ELECTRONICALLY VERIFIED FINAL REPORT 11/04/2024 9:56 AM - Electronically signed by Anh Garcia D.O. PS: PS Report ID: [id number] Reading Location: [id number] Procedure Note Anh Garcia DO - 11/04/2024 EXAM DESCRIPTION: XR CHEST 2 VIEWS REASON FOR STUDY: One week hx of right posterior chest pain without trauma TECHNIQUE: Frontal and lateral radiographic view(s) of the chest. COMPARISON: 02/23/2024 FINDINGS: There is cardiomegaly. There is a hiatal hernia. The pulmonary vasculature and mediastinum are grossly stable. There is no definite evidence of a pneumothorax. There is no definite evidence of focal consolidation or pleural effusion. The lungs are mildly hyperinflated. The osseous structures are acutely grossly unremarkable. THIS IS AN ELECTRONICALLY VERIFIED FINAL REPORT 11/04/2024 9:56 AM - Electronically signed by Anh Garcia D.O. PS: PS Report ID: [id number] Reading Location: [place] [address] IMPRESSION: Mildly hyperinflated lungs without definite evidence of acute cardiopulmonary process. Cardiomegaly. Hiatal hernia. Salbador Guidry PAC IMG DIAGNOSTIC ORDERABLES Fin al Result * Stool, Occult Blood, Diagnostic (09/26/2023 11:05 AM CDT) [facility] OCCULT BLOOD DIAG Negative Negative 09/26/2023 11:15 AM CDT [facility] Stool STOOL SPECIMEN / Unknown Non-Phlebotomy Collection / Unknown 09/26/2023 11:05 AM CDT 09/26/2023 11:12 AM CDT Roque Hunter ADMINISTRATIVE LIAISON, CUT OUT MACHINE OPERATOR BODY FLUIDS & STOOLS OR DERABLES Final Result [facility] [address] [place] [address] * HEPATITIS C ANTIBODY (07/31/2023 1:37 PM KAI WHAKARURUHAU) hepatitis C antibody 0.06 <1 S/CO [facility] ARCH [id number] 07/31/2023 9:41 PM KAI WHAKARURUHAU [facility] Comment: Signal/Cutoff ratio < 0.79 is Nondetected Signal/Cutoff ratio 0.80-0.99 is Grayzone Signal/Cutoff ratio > 0.99 is Detected Supplemental assays are recommended if signal/cutoff ratio is >/=1.00. Signal/cutoff ratio result >/= 5.00 is 97% predictive of positivity for recombinant immunoblot assay (RIBA) and will be reported to the [place] Department of Public Health as required. Blood Venipuncture / Unknown 07/31/2023 1:37 PM KAI WHAKARURUHAU 07/31/2023 1:37 PM KAI WHAKARURUHAU us Darwin Marti MD CHEMISTRY ORDERABLES Sindhu mccartney Result [facility] [address] [place] [address], * [facility] BONE DENSITOMETRY AXIAL SKELETON (08/09/2021 9:35 AM KAI WHAKARURUHAU) Anatomical Region Laterality Modality BODY N/A Other 08/09/2021 10:0 9 AM KAI WHAKARURUHAU Impressions 08/09/2021 10:12 AM KAI WHAKARURUHAU IMPRESSION: Low bone mass Fracture risk assessment [...] of Osteoporosis (http://www.nof.org/professionals/clinical-guidelines) Narrative 08/09/2021 10:12 AM KAI WHAKARURUHAU EXAM DESCRIPTION: [facility] BONE DENSITOMETRY AXIAL SKELETON REASON FOR STUDY: 71 y/o year old F with given history of screening. 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 AG: RHIANNON Report ID: [id number] Reading Location: [place] [address] Procedure Note Blair Alcarza MD - 08/09/2021 EXAM DESCRIPTION: [facility] BONE DENSITOMETRY AXIAL SKELETON REASON FOR STUDY: 71 y/o year old F with given history of screening. Cash Applications Associate/Model: [employer] (S/N [id number]) CLINICAL INFORMATION: Current height: 5 foot 3.5 [...] Blair Alcaraz M.D. AG: RHIANNON Report ID: [id number] Reading Location: [place] [address] IMPRESSION: Low bone mass Fracture risk assessment [...] and Treatment of Osteoporosis (http://www.nof.org/professionals/clinical-guidelines) us Luann SOSA DEXA ORDERABLES Final Re sult * JAMIE [...] to exams dated: 02/18/2018, 09/25/2016, and 04/25/2014 [facility]. BREAST TISSUE:The tissue of both breasts [...] signed by: Gracie Patel M.D. ll/:03/08/2020 11:16:23 Pr Manager: Landy Ansari (R)(Mag), [facility] letter sent: Normal Exam Reading [...] to exams dated: 02/18/2018, 09/25/2016, and 04/25/2014 [facility]. BREAST TISSUE:The tissue of both breasts [...] signed by: Gracie Patel M.D. ll/:03/08/2020 11:16:23 Pr Manager: Landy Ansari(Dillon)(M), [facility] letter sent: Normal Exam Reading location: BLUE OVERALL STUDY BIRADS: 1 Negative us Luann Cox MD IMG MAMMO ORDERABLES Final R esult * HM COLONOSCOPY (07/22/2012) us Any Lewis MD PROCEDURE/MINOR SURGIC AL ORDERABLES Final Result from Last 3 Months or Most Recently Relevant to Health Maintenance Insurance MEDICARE [facility] Advance Directives Documents on File Type Date Recorded Patient Sales Marketing Coordinator Expl anation POLST/POST/FL DNR 08/19/2018 9:34 AM polst 08/18/2018 Power of Negative Retoucher for Health Care 08/18/2018 1:08 PM POA-HC [...] measures to stabilize the patient. Care Teams Claims Service Adjustor Relationship Specialty Start Date End Date Darwin Marti MD [address] [place] [address] PCP - General Internal Medicine 07/31/23 Blair Paris MD [address] [place] [address] Consulting Physician Orthopaedic Sports Medicine 07/31/23 [place] [address] [place] [address] Consulting Physician Neurological Surgery 07/31/23 Carlos Dailey MD [address] [address] Consulting Physician Colon and Rectal Surgery 10/26/23 Saida Mckeon APRN, CUT OUT MACHINE OPERATOR [address] [place] [address] Nurse Practitioner Gastroenterology 10/26/23 Jessenia Ward APRN, SECTION BEAMER [address] [place] [address] Nurse Practitioner Neurology 11/17/23 Dominic Wang MD [address] [address] Consulting Physician Pain Medicine-Pain Management 02/09/24 Butch Muñiz MD [address] [place] [address] Consulting Physician Neurology 02/23/24
--- OUTSIDE RECORDS SUMMARY | 2024-12-29 08:03 | XMS_ITS | Clinical Summary ---
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 3 Insomnia secondary [...] Former smoker 02/19/2015 Overview (10/03/2016): Ex smoker Surgical History Surgery Date Site/Laterality Comments TONSILLECTOMY 2009 Tonsillectomy APPENDECTOMY 2009 Appendectomy HYSTERECTOMY 2009 Hysterectomy BRAIN TUMOR EXCISION JOINT REPLACEMENT Medical History Medical History Date Comments History of multiple allergies Al lergies Asthma Asthma Peptic ulcer Peptic ulcer dis ease Arthritis Arthritis Hx Other Medical Hysterectomy 30 years ago.; Comments: [facility] 02/20/2015 - Hx Other Medical Breast tumors 2 8 years ago.; Comments: [facility] 02/20/2015 - Hx Other Medical Right knee A&A 03-07-15.; Comments: [facility] 03/20/2015 - Hx Other Medical Right total kne e replacement 06-27-15.; Comments: [facility] 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 MVP Allergic [...] on file Legal Sex Female 6:41 PM EDGE BRUSHER Gender Identity Not on file Sexual Orientation Not on file Obstetrics History Last Filed Vital Signs Vital Sign Reading Time Taken Comments Blood Pressure 132/93 07/14/2024 11:06 AM EDGE BRUSHER Pulse 99 07/14/2024 11:06 AM EDGE BRUSHER Temperature 36.9 C (98.4 F) 06/30/2024 8:25 AM EDGE BRUSHER Respiratory Rate 0 06/30/2024 8:30 AM EDGE BRUSHER Oxygen Saturation 99% 06/30/2024 8:25 AM EDGE BRUSHER Inhaled Oxygen Concentration - - Weight 75.8 kg (167 lb) 07/14/2024 11:06 AM EDGE BRUSHER Height 162.6 cm (5' 4) 07/14/2024 11:06 AM EDGE BRUSHER Body Mass Index 28.67 07/14/2024 11:06 AM EDGE BRUSHER Plan of Treatment Health Maintenance Due Date Last Done Comments Hepatitis C Screening 1950 Hepatitis B Screening 01/15/1966 DTaP/Tdap/Td Vaccine (1 - Tdap) 06/30/1998 9 Well Visit 65+ 01/15/2013 Zoster Vaccine (2 of 3) 03/24/2013 01/27/2013 Depression Screening 07/04/2023 07/04/2022, 07/04/19 23 Osteoporosis Screening-Bone Density Scan 08/09/2023 08/09/2021, 08/09/2021, 04/23/2017, Additional history exists Covid-19 Vaccine ( - 2023-2 5 season) 2024 07/01/2021, 11/06/2020, 10/09/2020 Fall Risk Assessment 06/02/2025 06/02/2024 Pneumococcal vaccine 65+ Completed 09/23/2016, 0806/2012 Breast Cancer Screening-Mammogram Discontinued 03/08/2020, 03/08/2020, 02/18/2018, Additional history exists Influenza Vaccine Completed 03/18/2024, , 04/22/2022, Additional history exists Procedures Procedure Name Priority Date/Time Associated Diagnosis Comments DEXA AXIAL SKELETON BONE DENSITY 1 OR [...] PM CDT DEXA Bone Density Axial Acc#: [id number] DATE OF EXAM: Apr 23 2017 EXAM: [...] WYLIE Requesting Attending Fax: -- Attending ID: [id number] Requesting ID: [id number] Report To 1 ID: [id number] Report To 1 Name: JAY WYLIE Report To 1 FAX: -- NextGen Order #: [id number] Procedure Note Miscellaneous, Not In File - 04/23/2017 DEXA Bone Density Axial Acc#: [id number] DATE OF EXAM: Apr 23 2017 EXAM: [...] WYLIE Requesting Attending Fax: -- Attending ID: [id number] Requesting ID: [id number] Report To 1 ID: [id number] Report To 1 Name: JAY WYLIE Report To 1 FAX: -- NextGen Order #: [id number] Jay Wylie MD IMG DXA PROCEDURES Final R esult from Last 3 Months or Most Recently Relevant to Health Maintenance Insurance MEDICARE [facility] [place] [address] MEDICARE [facility] [place] [address] Care Teams Orbitread Operator Relationship Specialty Start Date End Date Luann Cox MD PCP - General 05/08/09
--- OUTSIDE RECORDS SUMMARY | 2024-12-29 08:03 | XMS_ITS | Encounter Summary ---
Author Organization [facility] Address [address] [place] [address] Phone Care Team Providers Care Registrar Museum Name Role Phone Blair Paris MD Unavailable [phone] Jose A Espinosa MD Unavailable [phone] Darwin Marti MD Primary Care Provider [phone] Hao Silvestre MD Unavailable [phone] Carlos Dailey MD Unavailable Saida Mckeon APRN, PACKING LINE OPERATOR Unavailable Jessenia Ward APRN, [facility] Unavailable + [phone] Hao Silvestre MD Unavailable [phone] Dominic Wang MD Unavailable [phone] Butch Muñiz MD Unavailable Reason for Visit * Reason Comments Medication Refill Encounter Details Date Type Department Care Team (Late Contact Info) Description [facility] [place] [address] [place] [address] Ranjeet Boston PAC [address] [place] [address] Medication Refill Social History Tobacco [...] CST Patient need to get from neurosurgeon WORKER documented in this encounter Plan of Treatment Upcoming Encounters Date Type Department Care Team (Late Contact Info) Description 02/20/2025 9:30 AM CDT Office Visit [facility] - Neurology - [place] [address] [place] [address] Jessenia Ward APRN, BIOMEDICAL MANAGER [address] [place] [address] 03/09/2025 2:30 PM CDT Office Visit [facility] - Family Medicine - [place] [address] [place] [address] Juan Shrestha MD [address] [facility] [address] [place] [address] documented as of this encounter Visit Diagnoses [...] Depression Total Score: 0 07/31/19 12:53 PM HOP WORKER documented as of this encounter Care Teams Registrar Museum Relationship Specialty Start Date End Date Darwin Marti MD [address] [place] [address] PCP - General Internal Medicine 07/31/23 Blair Paris MD 4 [facility] [address] [place] [address] Consulting Physician Orthopaedic Sports Medicine 07/31/23 Jose A Espinosa MD 2 [facility] [address] [place] [address] Consulting Physician Pain Medicine-Pain Management 07/31/23 02/08/24 Hao Silvestre MD [address] [facility] [address] [place] [address] Consulting Physician Neurological Surgery 07/31/23 Carlos Dailey MD #[address] [address] Consulting Physician Colon and Rectal Surgery 10/26/23 Saida Mckeon APRN, PACKING LINE OPERATOR [address] [place] [address] Nurse Practitioner Gastroenterology 10/26/23 Jessenia Ward APRN, BIOMEDICAL MANAGER [address] [place] [address] Nurse Practitioner Neurology 11/17/23 Hao Silvestre MD [address] [address] Consulting Physician Neurological Surgery 02/09/2401/27 Dominic Wang MD [address] [address] Consulting Physician Pain Medicine-Pain Management 02/09/24 Butch Muñiz MD #[address] [place] [address] Consulting Physician Neurology 02/23/24 documented as of this encounter
--- OUTSIDE RECORDS SUMMARY | 2024-12-29 08:03 | XMS_ITS | Encounter Summary ---
Author Organization [facility] Address [address] [place] [address] Phone Care Team Providers Care Printed Circuit Layout Taper Name Role Phone Luann Cox MD Primary Care Provider + [phone] Josiane Pacheco MD Primary Care Provider + [phone] Blair Paris MD Unavailable [phone] Jose A Espinosa MD Unavailable [phone] Darwin Marti MD Primary Care Provider [phone] Hao Silvestre MD Unavailable [phone] Carlos Dailey MD Unavailable Saida Mckeon APRN, REGASIFICATION PLANT OPERATOR Unavailable Jessenia Ward APRN, NON DESTRUCTIVE TESTING SCIENTIST Unavailable + [phone] Hao Silvestre MD Unavailable [phone] Dominic Wang MD Unavailable [phone] Butch Muñiz MD Unavailable [phone] Reason for Visit * Reason Comments Medication Refill Encounter Details Date Type Department Care Team (Late Contact Info) Description 04/24/2020 Refill [facility] Primary Care - [place] [address] [place] [address] Luann Cox MD [address] [place] [address] Medication Refill Social History Tobacco [...] [facility] - Neurology - [place] [address] [place] [address] Jessenia Ward APRN, NON DESTRUCTIVE TESTING SCIENTIST [address] [place] [address] 03/09/2025 2:30 PM CDT Office Visit [facility] - Family Medicine - [place] [address] [place] [address] Juan Shrestha MD #[address] [address] [address] documented as of this encounter Visit Diagnoses Diagnosis Hypothyroidism (acquired) Unspecified hypothyroidism Eczema, unspecified type documented in this encounter Additional Health Concerns Infection Onset Date Last Indicated Resolved Time ESBL 08/16/2018 08/16/2018 09/28/2023 9:03 AM CDT COVID - 19 03/09/2023 03/09/2023 03/19/2023 12:1 6 AM CDT Respiratory Rule-Out 03/09/2023 03/09/2023 023 2:09 AM CDT COVID - 19 05/07/2023 05/07/2023 05/07/2023 9:50 AM STATE INSPECTOR COVID - 19 Confirmed 05/07/2023 05/07/2023 023 12:16 AM STATE INSPECTOR C. difficile Rule-Out 09/24/2023 09/24/20232023 3:41 PM CDT COVID - 19 09/24/2023 09/24/2023 09/24/2023 11:3 2 AM CDT C. difficile Rule-Out 09/27/2023 09/27/20232023 2:13 PM CDT COVID - 19 02/23/2024 02/23/2024 02/23/2024 11:2 8 AM CDT Respiratory Rule-Out 02/23/2024 02/23/2024 024 11:30 AM CDT Assessment Noted Time PHQ-9 Depression Total Score: 2 07/14/19 20 10:00 AM STATE INSPECTOR documented as of this encounter Care Teams Printed Circuit Layout Taper Relationship Specialty Start Date End Date Luann Cox MD PCP - General Family Medicine 04/15/15 11/02/22 Josiane Pacheco MD [address] [place] [address] PCP - General Family Medicine 11/20/22 07/30/23 Darwin Marti MD [address] [place] [address] PCP - General Internal Medicine 07/31/23 Blair Paris MD 4 [facility] [address] [place] [address] Consulting Physician Orthopaedic Sports Medicine 07/31/23 Jose A Espinosa MD 2 [facility] [address] [place] [address] Consulting Physician Pain Medicine-Pain Management 07/31/23 02/08/24 Hao Silvestre MD [address] [address] Consulting Physician Neurological Surgery 07/31/23 Carlos Dailey MD [address] [facility] [facility] [address] [place] [address] Consulting Physician Colon and Rectal Surgery 10/26/23 Saida Mckeon APRN, REGASIFICATION PLANT OPERATOR [address] [place] [address] Nurse Practitioner Gastroenterology 10/26/23 Jessenia Ward APRN, NON DESTRUCTIVE TESTING SCIENTIST [address] [place] [address] Nurse Practitioner Neurology 11/17/23 Hao Silvestre MD [address] [address] Consulting Physician Neurological Surgery 02/09/2401/27 Dominic Wang MD [address] [address] Consulting Physician Pain Medicine-Pain Management 02/09/24 Butch Muñiz MD #[address] [place] [address] Consulting Physician Neurology 02/23/24 documented as of this encounter
--- OUTSIDE RECORDS SUMMARY | 2024-12-29 08:03 | XMS_ITS | Encounter Summary ---
Author Organization [facility] Address [address] [place] [address] Phone Care Team Providers Care Char Filter Tank Tender Head Name Role Phone Luann Cox MD Primary Care Provider + [phone] Josiane Pacheco MD Primary Care Provider + [phone] Blair Paris MD Unavailable [phone] Jose A Espinosa MD Unavailable [phone] Darwin Marti MD Primary Care Provider [phone] Hao Silvestre MD Unavailable [phone] Carlos Dailey MD Unavailable Saida Mckeon APRN, FILER FINISH Unavailable Jessenia Ward APRN, CRANBERRY BOG SUPERVISOR Unavailable [phone] Hao Silvestre MD Unavailable [phone] Dominic Wang MD Unavailable [phone] Butch Muñiz MD Unavailable Reason for Visit * Reason Comments Medication Refill Encounter Details Date Type Department Care Team (Late Contact Info) Description 10/27/2020 [facility] [address] [place] [address] Luann Cox MD [address] [place] [address] Medication Refill Social History Tobacco [...] 9:30 AM CDT Office Visit [facility] Neurology [facility] [address] [place] [address] Jessenia Ward, GUEST RELATIONS AGENT, CRANBERRY BOG SUPERVISOR [address] [place] [address] 03/09/2025 2:30 PM CDT Office Visit [facility] Family Medicine - [place] [address] [place] [address] Juan Shrestha MD #[address] [address] documented as of this encounter Visit Diagnoses [...] - 19 05/07/2023 05/07/2023 05/07/2023 9:50 AM BUSINESS PROGRAMMER COVID - 19 Confirmed 05/07/2023 05/07/2023 023 12:16 AM BUSINESS PROGRAMMER C. difficile Rule-Out 09/24/2023 09/24/20232023 3:41 PM CDT COVID - 19 09/24/2023 09/24/2023 09/24/2023 11:3 2 AM CDT C. difficile Rule-Out 09/27/2023 09/27/20232023 2:13 PM CDT COVID - 19 02/23/2024 02/23/2024 02/23/2024 11:2 8 AM CDT Respiratory Rule-Out 02/23/2024 02/23/2024 024 11:30 AM CDT Assessment Noted Time PHQ-9 Depression Total Score: 2 07/14/19 20 10:00 AM BUSINESS PROGRAMMER documented as of this encounter Care Teams Char Filter Tank Tender Head Relationship Specialty Start Date End Date Luann Cox MD PCP - General Family Medicine 04/15/15 11/02/22 Josiane Pacheco MD [address] [place] [address] PCP - General Family Medicine 11/20/22 07/30/23 Darwin Marti MD [address] [place] [address] PCP - General Internal Medicine 07/31/23 Blair Paris MD 4 [email or web address] [address] [place] [address] Consulting Physician Orthopaedic Sports Medicine 07/31/23 Jose A Espinosa MD 2 [facility] [address] [place] [address] Consulting Physician Pain Medicine-Pain Management 07/31/23 02/08/24 Hao Silvestre MD [address] [address] Consulting Physician Neurological Surgery 07/31/23 Carlos Dailey MD #[address] [address] Consulting Physician Colon and Rectal Surgery 10/26/23 Saida Mckeon APRN, FILER FINISH [address] [place] [address] Nurse Practitioner Gastroenterology 10/26/23 Jessenia Ward APRN, CRANBERRY BOG SUPERVISOR [address] [place] [address] Nurse Practitioner Neurology 11/17/23 Hao Silvestre MD [address] [address] Consulting Physician Neurological Surgery 02/09/2401/27 Dominic Wang MD [address] [address] Consulting Physician Pain Medicine-Pain Management 02/09/24 Butch Muñiz MD #[address] [place] [address] Consulting Physician Neurology 02/23/24 documented as of this encounter
--- OUTSIDE RECORDS SUMMARY | 2024-12-29 08:03 | XMS_ITS | Referral Summary ---
Author Organization [facility] Medical Office Building B Address [address] [place] [address] Care Team Providers Care Wood Drill Operator Name Role Phone Luann Cox MD Primary Care Provider [phone] Allergies Active Allergy Reactions Criticality Noted Date [...] Vomiting, Penicillins Other (See comments) Reaction: Unknown, [place] Sulfa (Sulfonamide Antibiotics) Other (See comments) Reaction: [...] in the evening 0 0 5 Active eawbgtra-lrbk-l in-folic acid (multivitamin-i dcj-asvqjksj-bs lic acid) 3,500-18-0.4 unit-mg-mg tablet,chewable 0 0 [...] sciatica 07/04/2022 Lumbar radiculopathy 07/04/2022 termite control service representative current use of 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 3 Insomnia [...] on file Legal Sex Female 6:41 PM DIRECTOR OF STRATEGIC MARKETING Gender Identity Not on file Sexual Orientation Not on file Last Filed Vital Signs Vital Sign Reading Time Taken Comments Blood Pressure 132/93 07/14/2024 11:06 AM DIRECTOR OF STRATEGIC MARKETING Pulse 99 07/14/2024 11:06 AM DIRECTOR OF STRATEGIC MARKETING Temperature 36.9 C (98.4 F) 06/30/2024 8:25 AM DIRECTOR OF STRATEGIC MARKETING Respiratory Rate 0 06/30/2024 8:30 AM DIRECTOR OF STRATEGIC MARKETING Oxygen Saturation 99% 06/30/2024 8:25 AM DIRECTOR OF STRATEGIC MARKETING Inhaled Oxygen Concentration - - Weight 75.8 kg (167 lb) 07/14/2024 11:06 AM DIRECTOR OF STRATEGIC MARKETING Height 162.6 cm (5' 4) 07/14/2024 11:06 AM DIRECTOR OF STRATEGIC MARKETING Body Mass Index 28.67 07/14/2024 11:06 AM DIRECTOR OF STRATEGIC MARKETING Plan of Treatment Not on file Procedures [...] PM CDT DEXA Bone Density Axial Acc#: [id number] DATE OF EXAM: Apr 23 2017 EXAM: [...] WYLIE Requesting Attending Fax: -- Attending ID: [id number] Requesting ID: [id number] Report To 1 ID: [id number] Report To 1 Name: JAY WYLIE Report To 1 FAX: -- NextGen Order #: [id number] Procedure Note Miscellaneous, Not In File - 04/23/2017 DEXA Bone Density Axial Acc#: [id number] DATE OF EXAM: Apr 23 2017 EXAM: [...] on: Apr 23 2017 3:34P Transcribed by: [facility] On: Apr 23 2017 4:05P Approved Electronically by: DIANELYS SOLORZANO M.D. on: Apr 23 2017 4:05P Ordering DR: JAY WYLIE Attending DR: JAY WYLIE Attending: JAY WYLIE Requesting: JAY YWLIE Requesting Attending Fax: -- Attending ID: [id number] Requesting ID: [id number] Report To 1 ID: [id number] Report To 1 Name: JAY WYLIE Report To 1 FAX: -- NextGen Order #: [id number] Jay Wylie MD IMG DXA PROCEDURES Final R esult from Last 3 Months or Most Recently Relevant to Health Maintenance [place] [address] MEDICARE [facility] [place] [address] Care Teams Wood Drill Operator Relationship Specialty Start Date End Date Luann Cox MD PCP - General 05/08/09
--- OUTSIDE RECORDS SUMMARY | 2024-12-29 08:03 | XMS_ITS | Encounter Summary ---
Author Organization [facility] Address [address] [place] [address] Phone Care Team Providers Care Brine Tank Tender Name Role Phone Blair Paris MD Unavailable [phone] Jose A Espinosa MD Unavailable [phone] Darwin Marti MD Primary Care Provider [phone] Hao Silvestre MD Unavailable [phone] Carlos Dailey MD Unavailable Saida Mckeon APRN, SPRAY DRIER OPERATOR Unavailable Jessenia Ward APRN, [facility] Unavailable + [phone] Hao Silvestre MD Unavailable [phone] Dominic Wang MD Unavailable [phone] Butch Muñiz MD Unavailable Reason for Visit * Reason Comments Medication Refill Encounter Details Date Type Department Care Team (Late st Contact Info) Description 10/29/2023 Refill [facility] - Family [facility] [address] [place] [address] Darwin Marti MD [address] [place] [address] Medication Refill Social History Tobacco Use Types Packs/Day Years Used Date Smoking Tobacco: Former Cigarettes 2 41.8 1 964 - 04/09/2005 Smokeless Tobacco: Never Alcohol Use Standard Drinks/Week Comments No 0 (1 standard drink = 0.6 oz pur e alcohol) [facility] Utilities Answer Date Recorded In the past 12 months has [employer], gas, oil, or water [employer] threatened to shut off services in your home? No 09/26/2023 Social Connection and Isolation Panel Answer Date Recorded In a typical week, how many times do you talk on the phone with family, friends, or neighbors? More than three times a week 09/26/2023 How often do you get togethe r with friends or relatives? More than three times a week 09/26/2023 How often do you attend chur ch or adventist services? Never 09/26/2023 Do you belong to any clubs o r organizations such as baptist groups, unions, fraternal or athletic groups, or [...] Answer Date Recorded PHQ-2 Score 2 07/14/2019 [facility] - Occupational Stress [...] place to sleep or slept in a fdc (including now)? No 09/26/2023 Sexually Active Control [...] Description 02/20/2025 9:30 AM CDT Office Visit [facility] - Neurology [facility] #[address] [place] [address] Jessenia Ward, CUSTOMIZER, DRESS FINISHER [address] [place] [address] 03/09/2025 2:30 PM CDT Office Visit [facility] - Family Medicine [facility] [address] [place] [address] Juan Shrestha MD #[address] [address] documented as of this encounter Visit Diagnoses Not on filedocumented in this encounter Additional Health Concerns Infection Onset Date Last Indicated Resolved Time COVID - 19 02/23/2024 02/23/2024 02/23/2024 11:2 8 AM CDT Respiratory Rule-Out 02/23/2024 02/23/2024 024 11:30 AM CDT Assessment Noted Time PHQ-9 Depression Total Score: 0 07/31/19 24 12:53 PM PASTRY COOK HELPER documented as of this encounter Care Teams Brine Tank Tender Relationship Specialty Start Date End Date Darwin Marti MD [address] [place] [address] PCP - General Internal Medicine 07/31/23 Blair Paris MD [address] [place] [address], [address] [place] [address] Consulting Physician Orthopaedic Sports Medicine 07/31/23 Jose A Espinosa MD 2 [facility] [address] [place] [address] Consulting Physician Pain Medicine-Pain Management 07/31/23 02/08/24 Hao Silvestre MD [address] [address] Consulting Physician Neurological Surgery 07/31/23 Carlos Dailey MD #[address] [address] Consulting Physician Colon and Rectal Surgery 10/26/23 Saida Mckeon APRN, SPRAY DRIER OPERATOR [address] [place] [address] Nurse Practitioner Gastroenterology 10/26/23 Jessenia Ward APRN, DRESS FINISHER [address] [place] [address] Nurse Practitioner Neurology 11/17/23 Hao Silvestre MD [address] [address] Consulting Physician Neurological Surgery 02/09/2401/27 Dominic Wang MD [address] [address] Consulting Physician Pain Medicine-Pain Management 02/09/24 Butch Muñiz MD #[address] [facility] [place] [address] Consulting Physician Neurology 02/23/24 documented as of this encounter
--- OUTSIDE RECORDS SUMMARY | 2024-12-29 08:03 | XMS_ITS | Encounter Summary ---
Author Organization [facility] Address [address] [place] [address] Phone Care Team Providers Care Patient Transport Orderly Name Role Phone Luann Cox MD Primary Care Provider + [phone] Josiane Pacheco MD Primary Care Provider + [phone] Blair Paris MD Unavailable [phone] Jose A Espinosa MD Unavailable [phone] Darwin Marti MD Primary Care Provider +[phone] Hao Silvestre MD Unavailable +[phone] Carlos Dailey MD Unavailable Saida Mckeon APRN, TILE LAYER HELPER Unavailable Jessenia Ward APRN, PASSENGER BRAKEMAN Unavailable + [phone] Hao Silvestre MD Unavailable +[phone] Dominic Wang MD Unavailable [phone] Butch Muñiz MD Unavailable +[phone] Reason for Visit * Reason Comments Medication Refill Encounter Details Date Type Department Care Team (Late st Contact Info) Description 02/15/2020 Refill [facility] [address] [place] [address] Luann Cox MD [address] [place] [address] Medication Refill Social History [...] 02/20/2025 9:30 AM CDT [facility] #2 [place] [address] Jessenia Ward APRN, PASSENGER BRAKEMAN [address] [place] [address] 03/09/2025 2:30 PM CDT Office Visit [facility] Family Medicine [facility] [address] [place] [address] Juan Shrestha MD #[address] [address] documented as of this encounter Visit Diagnoses Diagnosis History of arthroscopy of left shoulder documented in this encounter Additional Health Concerns Infection Onset Date Last Indicated Resolved Time ESBL 08/16/2018 08/16/2018 09/28/2023 9:03 AM CDT COVID - 19 03/09/2023 03/09/2023 03/19/2023 12:1 6 AM CDT Respiratory Rule-Out 03/09/2023 03/09/2023 023 2:09 AM CDT COVID - 19 05/07/2023 05/07/2023 05/07/2023 9:50 AM FOOD SERVICE SUPERVISOR COVID - 19 Confirmed 05/07/2023 05/07/2023 023 12:16 AM FOOD SERVICE SUPERVISOR C. difficile Rule-Out 09/24/2023 09/24/20232023 3:41 PM CDT COVID - 19 09/24/2023 09/24/2023 09/24/2023 11:3 2 AM CDT C. difficile Rule-Out 09/27/2023 09/27/20232023 2:13 PM CDT COVID - 19 02/23/2024 02/23/2024 02/23/2024 11:2 8 AM CDT Respiratory Rule-Out 02/23/2024 02/23/2024 024 11:30 AM CDT Assessment Noted Time PHQ-9 Depression Total Score: 2 07/14/19 20 10:00 AM FOOD SERVICE SUPERVISOR documented as of this encounter Care Teams Patient Transport Orderly Relationship Specialty Start Date End Date Luann Cox MD PCP - General Family Medicine 04/15/15 11/02/22 Josiane Pacheco MD [address] [place] [address] PCP - General Family Medicine 11/20/22 07/30/23 Darwin Marti MD [address] [place] [address] PCP - General Internal Medicine 07/31/23 Blair Paris MD 4 [facility] [address] [place] [address] Consulting Physician Orthopaedic Sports Medicine 07/31/23 Jose A Espinosa MD 2 [facility] [address] [place] [address] Consulting Physician Pain Medicine-Pain Management 07/31/23 02/08/24 Hao Silvestre MD [address] [address] Consulting Physician Neurological Surgery 07/31/23 Carlos Dailey MD #2 [facility] [address] [place] [address] Consulting Physician Colon and Rectal Surgery 10/26/23 Saida Mckeon APRN, TILE LAYER HELPER [address] [place] [address] Nurse Practitioner Gastroenterology 10/26/23 Jessenia Ward APRN, [facility] #[address] [place] [address] Nurse Practitioner Neurology 11/17/23 Hao Silvestre MD [address] [address] Consulting Physician Neurological Surgery 02/09/2401/27 Dominic Wang MD [address] [address] Consulting Physician Pain Medicine-Pain Management 02/09/24 Butch Muñiz MD #2 [place] [address] Consulting Physician Neurology 02/23/24 documented as of this encounter
--- OUTSIDE RECORDS SUMMARY | 2024-12-29 08:03 | XMS_ITS | Encounter Summary ---
Author Organization [facility] Address [address] [place] [address] Phone Care Team Providers Care Power Regulator Name Role Phone Josiane Pacheco MD Primary Care Provider [phone] Blair Paris MD Unavailable [phone] Jose A Espinosa MD Unavailable [phone] Darwin Marti MD Primary Care Provider [phone] Hao Silvestre MD Unavailable [phone] Carlos Dailey MD Unavailable Saida Mckeon APRN, SCHOOL ADMISSIONS REPRESENTATIVE Unavailable Jessenia Ward APRN, PUBLIC WORKS MANAGER Unavailable + [phone] Hao Silvestre MD Unavailable Dominic Wang MD Unavailable [phone] Butch Muñiz MD Unavailable Reason for Visit * Reason Comments Medication Refill Encounter Details Date Type Department Care Team (Late st Contact Info) Description 01/18[facility] [place] [address] [place] [address] Josiane Pacheco MD [address] [place] [address] Medication Refill Social History Tobacco Use Types [...] Dept 05/29/22 Office Visit Luann Cox MD [facility] Showing recent visits within past 365 days and meeting all other requirements Future Appointments Date Type Provider Dept 01/29/23 Appointment Josiane Pacheco MD [facility] Showing future appointments within next 90 [...] Dept 05/29/22 Office Visit Luann Cox MD [facility] Showing recent visits within past 365 days and meeting all other requirements Future Appointments Date Type Provider Dept 01/29/23 Appointment Josiane Pacheco MD [facility] Showing future appointments within next 90 [...] Dept 05/29/22 Office Visit Luann Cox MD [facility] Showing recent visits within past 365 days and meeting all other requirements Future Appointments Date Type Provider Dept 01/29/23 Appointment Josiane Pacheco MD [facility] Showing future appointments within next 90 [...] Dept 05/29/22 Office Visit Luann Cox MD [facility] Showing recent visits within past 365 days and meeting all other requirements Future Appointments Date Type Provider Dept 01/29/23 Appointment Josiane Pacheco MD [facility] Showing future appointments within next 90 [...] Dept 05/29/22 Office Visit Luann Cox MD [facility] Showing recent visits within past 365 days and meeting all other requirements Future Appointments Date Type Provider Dept 01/29/23 Appointment Josiane Pacheco MD [facility] Showing future appointments within next 90 days and meeting all other requirements documented in this encounter Plan of Treatment Upcoming Encounters Date Type Department Care Team (Late st Contact Info) Description 02/20/2025 9:30 AM CDT Office Visit [facility] Medical [facility] - Neurology - [place] [address] [place] [address] Jessenia Ward APRN, PUBLIC WORKS MANAGER #[address] [place] [address] 03/09/2025 2:30 PM CDT Office Visit [facility] Medical [facility] - Family Medicine [facility] #2 [place] [address] Juan Shrestha MD #[address] [facility] [address] documented as of this encounter Visit Diagnoses [...] - 19 05/07/2023 05/07/2023 05/07/2023 9:50 AM CORPORATE TECHNICAL RECRUITER COVID - 19 Confirmed 05/07/2023 05/07/2023 023 12:16 AM CORPORATE TECHNICAL RECRUITER C. difficile Rule-Out 09/24/2023 09/24/20232023 3:41 PM CDT COVID - 19 09/24/2023 09/24/2023 09/24/2023 11:3 2 AM CDT C. difficile Rule-Out 09/27/2023 09/27/20232023 2:13 PM CDT COVID - 19 02/23/2024 02/23/2024 02/23/2024 11:2 8 AM CDT Respiratory Rule-Out 02/23/2024 02/23/2024 024 11:30 AM CDT Assessment Noted Time PHQ-9 Depression Total Score: 2 07/14/19 20 10:00 AM CORPORATE TECHNICAL RECRUITER documented as of this encounter Care Teams Power Regulator Relationship Specialty Start Date End Date Josiane Pacheco MD [address] [place] [address] PCP - General Family Medicine 11/20/22 07/30/23 Darwin Marti MD [address] [place] [address] PCP - General Internal Medicine 07/31/23 Blair Paris MD 4 [facility] [address] [place] [address] Consulting Physician Orthopaedic Sports Medicine 07/31/23 Jose A Espinosa MD 2 [facility] [address] [place] [address] Consulting Physician Pain Medicine-Pain Management 07/31/23 02/08/24 Hao Silvestre MD [address] [place] [address] Consulting Physician Neurological Surgery 07/31/23 Carlos Dailey MD #[address] [address] Consulting Physician Colon and Rectal Surgery 10/26/23 Saida Mckeon APRN, SCHOOL ADMISSIONS REPRESENTATIVE #[address] [place] [address] Nurse Practitioner Gastroenterology 10/26/23 Jessenia Ward, HELPER COORDINATOR, PUBLIC WORKS MANAGER [address] [place] [address] Nurse Practitioner Neurology 11/17/23 Hao Silvestre MD [address] [address] Consulting Physician Neurological Surgery 02/09/2401/27 Dominic Wang MD [address] [address] Consulting Physician Pain Medicine-Pain Management 02/09/24 Butch Muñiz MD #2 [place] [address] Consulting Physician Neurology 02/23/24 documented as of this encounter
--- OUTSIDE RECORDS SUMMARY | 2024-12-29 08:03 | XMS_ITS | Encounter Summary ---
Author Organization [facility] Address [address] [place] [address] Phone Care Team Providers Care Manager Mechanical Name Role Phone Luann Cox MD Primary Care Provider + [phone] Josiane Pacheco MD Primary Care Provider + [phone] Blair Paris MD Unavailable [phone] Jose A Espinosa MD Unavailable [phone] Darwin Marti MD Primary Care Provider [phone] Hao Silvestre MD Unavailable [phone] Carlos Dailey MD Unavailable Saida Mckeon APRN, MATERIALS ENGINEER Unavailable Jessenia Ward APRN, LIFTER/DRIVER Unavailable +- [phone] Hao Silvestre MD Unavailable [phone] Dominic Wang MD Unavailable Butch Muñiz MD Unavailable [phone] Reason for Visit * Reason Comments Medication Refill Encounter Details Date Type Department Care Team ([facility] Contact Info) Description 05/12/2021 [facility] [place] [address] [place] [address] Luann Cox MD [address] [place] [address] Medication Refill Social History Tobacco [...] no refill protocol information for this order OLE RAISER LOCKSTITCH documented in this encounter Plan of Treatment Upcoming Encounters Date Type Department Care Team ([facility] Contact Info) Description 02/20/2025 9:30 AM CDT Office Visit [facility] - Neurology - [place] [address] [place] [address] Jessenia Ward APRN, LIFTER/DRIVER [address] [place] [address] 03/09/2025 2:30 PM CDT Office Visit [facility] - Family Medicine [facility] #[address] [place] [address] Juan Shrestha MD #[address] [address] documented as of this encounter Visit Diagnoses Not on filedocumented in this encounter Additional Health Concerns Infection Onset Date Last Indicated Resolved Time ESBL 08/16/2018 08/16/2018 09/28/2023 9:03 AM CDT COVID - 19 03/09/2023 03/09/2023 03/19/2023 12:1 6 AM CDT Respiratory Rule-Out 03/09/2023 03/09/2023 023 2:09 AM CDT COVID - 19 05/07/2023 05/07/2023 05/07/2023 9:50 AM ARMHOLE RAISER LOCKSTITCH COVID - 19 Confirmed 05/07/2023 05/07/2023 023 12:16 AM ARMHOLE RAISER LOCKSTITCH C. difficile Rule-Out 09/24/2023 09/24/20232023 3:41 PM CDT COVID - 19 09/24/2023 09/24/2023 09/24/2023 11:3 2 AM CDT C. difficile Rule-Out 09/27/2023 09/27/20232023 2:13 PM CDT COVID - 19 02/23/2024 02/23/2024 02/23/2024 11:2 8 AM CDT Respiratory Rule-Out 02/23/2024 02/23/2024 024 11:30 AM CDT Assessment Noted Time PHQ-9 Depression Total Score: 2 07/14/19 20 10:00 AM ARMHOLE RAISER LOCKSTITCH documented as of this encounter Care Teams Manager Mechanical Relationship Specialty Start Date End Date Luann Cox MD PCP - General Family Medicine 04/15/15 11/02/22 Josiane Pacheco MD [address] [place] [address] PCP - General Family Medicine 11/20/22 07/30/23 Darwin Marti MD [address] [place] [address] PCP - General Internal Medicine 07/31/23 Blair Paris MD 4 [facility] [address] [place] [address] Consulting Physician Orthopaedic Sports Medicine 07/31/23 Jose A Espinosa MD 2 [facility] [address] [place] [address] Consulting Physician Pain Medicine-Pain Management 07/31/23 02/08/24 Hao Silvestre MD [address] [address] Consulting Physician Neurological Surgery 07/31/23 Carlos Dailey MD #2 [facility] [address] [place] [address] Consulting Physician Colon and Rectal Surgery 10/26/23 Saida Mckeon APRN, MATERIALS ENGINEER #2 [place] [address] Nurse Practitioner Gastroenterology 10/26/23 Jessenia Ward APRN, LIFTER/DRIVER #[address] [place] [address] Nurse Practitioner Neurology 11/17/23 Hao Silvestre MD [address] [address] Consulting Physician Neurological Surgery 02/09/2401/27 Dominic Wang MD [address] [address] Consulting Physician Pain Medicine-Pain Management 02/09/24 Butch Muñiz MD #2 [place] [address] Consulting Physician Neurology 02/23/24 documented as of this encounter
--- OUTSIDE RECORDS SUMMARY | 2024-12-29 08:03 | XMS_ITS | Encounter Summary ---
Author Organization [facility] Address [address] [place] [address] Phone Care Team Providers Care Auto Polisher Name Role Phone Blair Paris MD Unavailable [phone] Jose A Espinosa MD Unavailable [phone] Darwin Marti MD Primary Care Provider +[phone] Hao Silvestre MD Unavailable +[phone] Carlos Dailey MD Unavailable Saida Mckeon APRN, VALVE SEATER OPERATOR Unavailable Jessenia Ward APRN, [facility] Unavailable + [phone] Hao Silvestre MD Unavailable +[phone] Dominic Wang MD Unavailable [phone] Butch Muñiz MD Unavailable Reason for Visit * Reason Comments Medication Refill Encounter Details Date Type Department Care Team (Late st Contact Info) Description 11/13/2023 Refill [facility] - Primary Care - [place] [address] [place] [address] Darwin Marti MD [address] [place] [address] Medication Refill Social History Tobacco Use Types Packs/Day Years Used Date Smoking Tobacco: Former Cigarettes 2 41.8 1 964 - 04/09/2005 Smokeless Tobacco: Never Alcohol Use Standard Drinks/Week Comments No 0 (1 standard drink = 0.6 oz pur e alcohol) [facility] Utilities Answer Date Recorded In the past 12 months has [employer], gas, oil, or water be2 threatened to shut off services in your [...] often do you attend chur ch or muslim services? Never 09/26/2023 Do you belong to any clubs o r organizations such as taoist groups, unions, fraternal or athletic groups, or [...] Answer Date Recorded PHQ-2 Score 2 07/14/2019 [facility] - Occupational Stress Questionnaire Answer Date Recorded [...] AM CDT Medication(s) [facility] and [facility] Chronic Medication Refill Standing Order for Pediatricand [...] Dept 10/14/23 Office Visit Darwin Marti MD [facility] 10/05/23 Office Visit Cassie Lara APRN, [facility] 07/31/23 Office Visit Darwin Marti MD [facility] 01/29/23 Office Visit Josiane Pacheco MD [facility] Showing recent visits within past 365 days and meeting all other requirements Future Appointments Date Type Provider Dept 02/09/24 Appointment Darwin Marti MD [facility] Showing future appointments within next 90 days and meeting all other requirements Passed - Normal TSH in past 12 months TSH Date Value Ref Range Status 07/31/2023 1.805 0.300 - 5.000 mIU/L Final documented in this encounter Plan of Treatment Upcoming Encounters Date Type Department Care Team (Late st Contact Info) Description 02/20/2025 9:30 AM CDT Office Visit [facility] - Neurology [facility] #2 [place] [address] Jessenia Ward APRN, [facility] #2 [place] [address] 03/09/2025 2:30 PM CDT [facility] - Family [facility] [place] #[address] [place] [address] Juan Shrestha MD #2 [facility] [address] [place] [address] documented as of this encounter Visit Diagnoses Diagnosis Hypothyroidism (acquired) Unspecified hypothyroidism documented in this encounter Additional Health Concerns Infection Onset Date Last Indicated Resolved Time COVID - 19 02/23/2024 02/23/2024 02/23/2024 11:2 8 AM CDT Respiratory Rule-Out 02/23/2024 02/23/2024 024 11:30 AM CDT Assessment Noted Time PHQ-9 Depression Total Score: 0 07/31/19 12:53 PM PATTERNMAKER PLASTER AND PLASTIC documented as of this encounter Care Teams Auto Polisher Relationship Specialty Start Date End Date Darwin Marti MD [address] [place] [address] PCP - General Internal Medicine 07/31/23 Blair Paris MD 4 [facility] [address] [place] [address] Consulting Physician Orthopaedic Sports Medicine 07/31/23 Jose A Espinosa MD 2 [facility] [address] [place] [address] Consulting Physician Pain Medicine-Pain Management 07/31/23 02/08/24 Hao Silvestre MD [address] [address] Consulting Physician Neurological Surgery 07/31/23 Carlos Dailey MD #2 [facility] [address] [place] [address] Consulting Physician Colon and Rectal Surgery 10/26/23 Saida Mckeon APRN, VALVE SEATER OPERATOR #2 [place] [address] Nurse Practitioner Gastroenterology 10/26/23 Jessenia Ward APRN, [facility] #2 [place] [address] Nurse Practitioner Neurology 11/17/23 Hao Silvestre MD [address] [address] Consulting Physician Neurological Surgery 02/09/2401/27 Dominic Wang MD [address] [address] Consulting Physician Pain Medicine-Pain Management 02/09/24 Butch Muñiz MD #2 [place] [address] Consulting Physician Neurology 02/23/24 documented as of this encounter
--- OUTSIDE RECORDS SUMMARY | 2024-12-29 08:03 | XMS_ITS | Encounter Summary ---
Author Organization [facility] Address [address] [place] [address] Phone Care Team Providers Care Corner Brace Block Machine Operator Name Role Phone Luann Cox MD Primary Care Provider + [phone] Josiane Pacheco MD Primary Care Provider + [phone] Blair Paris MD Unavailable [phone] Jose A Espinosa MD Unavailable [phone] Darwin Marti MD Primary Care Provider +[phone] Hao Silvestre MD Unavailable +[phone] Carlos Dailey MD Unavailable Saida Mckeon APRN, DIRECTOR EHS Unavailable [place], Jessenia M CONTOUR STITCHER, HOSE TENDER Unavailable [phone] Hao Silvestre MD Unavailable Dominic Wang MD Unavailable [phone] Butch Muñiz MD Unavailable Encounter Details Date Type Department Care Team (Late Contact Info) Description 01/03/2020 Lab Re[facility] [address] [place] [id number] Luann Cox MD [address] [place] [address] Essential (primary) hypertension; Syncope and collapse; Pulmonary [...] Description 02/20/2025 9:30 AM CDT Office Visit [facility] - Neurology [facility] #2 [place] [address] Jessenia Ward, CONTOUR STITCHER, HOSE TENDER [address]2 [place] [address] 03/09/2025 2:30 PM CDT Office Visit [facility] - Family Medicine [facility] [address] [place] [address] Juan Shrestha MD [address] [address] documented as of this encounter Procedures Procedure [...] 12.00 10(3)/mcL 01/03/2020 11:50 AM CDT [facility] RBC 4.18 3.80 - 5.30 10(6)/mcL 01/03/2020 11:50 AM CDT [facility] HEMOGLOBIN (HGB) 13.1 12.0 - 15.8 g/dL 01/03/2020 11:50 AM CDT [facility] HEMATOCRIT (HCT) 40.7 36.0 - 47.0 % 01/03/2020 11:50 AM [email or web address] MCV 97.4(H) 82.0 - 96.0 fL 01/03/2020 11:50 AM CDT [email or web address] LAB MCH 31.3 26.0 - 34.0 pg 01/03/2020 11:50 AM CDT [email or web address] LAB MCHC 32.2 31.0 - 36.0 g/dL 01/03/2020 11:50 AM CDT [email or web address] LAB PLATELET COUNT 208 140 - 440 10(3)/mcL 01/03/2020 11:50 AM CDT [email or web address] LAB RDW 13.2 11.8 - 15.5 % 01/03/2020 11:50 AM CDT [email or web address] LAB MPV 11.7 9.7 - 12.4 fL 01/03/2020 11:50 AM CDT [email or web address] LAB NEUTROPHILS 68.0 47.0 - 73.0 % 01/03/2020 11:50 AM CDT [email or web address] LAB LYMPHOCYTES 22.9 18.0 - 42.0 % 01/03/2020 11:50 AM CDT [email or web address] LAB MONOCYTES 5.6 4.0 - 12.0 % 01/03/2020 11:50 AM CDT [email or web address] LAB EOSINOPHILS 2.4 0.0 - 5.0 % 01/03/2020 11:50 AM CDT [email or web address] LAB BASOPHILS 1.1(H) 0.0 - 1.0 % 01/03/2020 11:50 AM CDT [email or web address] LAB ABSOLUTE NEUTROPHILS 3.75 1.60 - 7.70 10(3)/mcL 01/03/2020 11:50 AM CDT [email or web address] LAB ABSOLUTE LYMPHOCYTES 1.26(L) 1.30 - 3.20 10(3)/mcL 01/03/2020 11:50 AM CDT [email or web address] ABSOLUTE MONOCYTES 0.31 0.20 - 1.00 10(3)/mcL 01/03/2020 11:50 AM CDT [email or web address] LAB ABSOLUTE EOSINOPHIL 0.13 0.00 - 0.40 10(3)/mcL 01/03/2020 11:50 AM CDT [email or web address] LAB ABSOLUTE BASOPHILS 0.06 0.00 - 0.10 10(3)/mcL 01/03/2020 11:50 AM CDT [email or web address] LAB NRBC PER 100 WBC 0 01/03/20 20 11:50 AM CDT [email or web address] LAB Blood Venipuncture / Unknown 01/03/2020 11:00 AM CDT 01/03/2020 11:46 AM CDT us Luann Cox MD HEMATOLOGY ORDERABLES Final Result Performing Organization Address City/[facility]/ZIP Co de Phone Number [facility] [address] [place] [address] * (ABNORMAL) LIPID PANEL (01/03/2020 11:00 AM CDT) CHOLESTEROL 190 <=200 mg/dL 01/03/2020 12:17 PM CDT [email or web address] LAB TRIGLYCERIDES 140 <150 mg/dL 01/03/2020 12:17 PM CDT [email or web address] LAB HDL CHOLESTEROL 54.2 >40 mg/dL 0 12:17 PM CDT [email or web address] LAB LDL 108 5 - 130 mg/dL 01/03/2020 12:17 PM CDT [email or web address] LAB VLDL 28 5 - 55 mg/dL 01/03/2020 12:17 PM CDT [email or web address] LAB CHOL/HDL RATIO 3.5 0.0 - 4.4 01/03/2020 12:17 PM CDT [email or web address] LAB NON-HDL CHOLESTEROL 135.8(H) <130 mg/dL 01/03/2020 12:17 PM CDT [email or web address] LAB LIPID FASTING 01/03/2020 12:17 PM CDT [email or web address] LAB Blood Venipuncture / Unknown 01/03/2020 11:00 AM CDT 01/03/2020 11:46 AM CDT us Luann Cox MD CHEMISTRY ORDERABLES Final R esult [facility] [address] [place] [address] * (ABNORMAL) CMP (COMPREHENSIVE METABOLIC PANEL) (01/03/2020 11:00 AM CDT) SODIUM 136 136 - 144 mmol/L 01/03/2020 12:[address] [facility] POTASSIUM 4.0 3.5 - 5.1 mmol/L 01/03/2020 12:[address] [facility] CHLORIDE 100 100 - 110 mmol/L 01/03/2020 12:[address] [facility] CO2, VENOUS 27 22 - 32 mmol/L 01/03/2020 12:[address] [facility] ANION GAP 13.0 8.0 - 20.0 mmol/L 01/03/2020 12:[address] [facility] GLUCOSE 96 70 - 99 mg/dL 01/03/2020 12:[address] [facility] BUN 17 8 - 23 mg/dL 01/03/2020 12:[address] [facility] CREATININE, BLOOD 0.69 0.60 - 1.10 mg/dL 01/03/2020 12:[address] [facility] BUN/CREATININE RATIO 25(H) 12 - 20 ratio 01/03/2020 12:[address] [facility] TOTAL PROTEIN 7.0 6.0 - 8.3 g/dL 01/03/2020 12:[address] [facility] ALBUMIN 4.5 3.5 - 5.2 g/dL 01/03/2020 12:[address] [facility] Comment: The colormetric methods used for the determination of Albumin may lead to falsely elevated test results in patients suffering from renal failure or insufficiency due to interference with other proteins. A/G RATIO 1.8 1.0 - 2.0 01/03/2020 12:[address] [facility] CALCIUM 9.4 8.9 - 10.3 mg/dL 01/03/2020 12:[address] [facility] T BILI 0.3 <=1.2 mg/dL 01/03/2020 12:17 PM CDT [email or web address] LAB SGOT (AST) 28 <=32 U/L 01/03/2020 12:17 PM CDT [email or web address] SGPT (ALT) 30 <=33 U/L 01/03/2020 12:17 PM CDT [facility] ALKALINE PHOSPHATASE 90 35 - 105 U/L 01/03/2020 12:17 PM CDT [email or web address] LAB GFR, EST. NONAFRICAN >60 >=60 01/03/2020 12:17 PM CDT [email or web address] LAB GFR, EST. >60 >=60 020 12:17 PM CDT [email or web address] LAB Comment: Creatinine Clearance is the preferred criteria for selecting drug dose adjustments in renally impaired patients. The GFR is provided as additional pertinent clinical information. GFR is reported in mL/min/1.73 sq m. Blood Venipuncture / Unknown 01/03/2020 11:00 AM CDT 01/03/2020 11:46 AM CDT us Luann Cox MD CHEMISTRY ORDERABLES Final R esult [facility] [address] [place] [address] documented in this encounter Visit Diagnoses Diagnosis [...] - 19 05/07/2023 05/07/2023 05/07/2023 9:50 AM AUTO MECHANICS TEACHER COVID - 19 Confirmed 05/07/2023 05/07/2023 023 12:16 AM AUTO MECHANICS TEACHER C. difficile Rule-Out 09/24/2023 09/24/20232023 3:41 PM CDT COVID - 19 09/24/2023 09/24/2023 09/24/2023 11:3 2 AM CDT C. difficile Rule-Out 09/27/2023 09/27/20232023 2:13 PM CDT COVID - 19 02/23/2024 02/23/2024 02/23/2024 11:2 8 AM CDT Respiratory Rule-Out 02/23/2024 02/23/2024 024 11:30 AM CDT Assessment Noted Time PHQ-9 Depression Total Score: 2 07/14/19 20 10:00 AM AUTO MECHANICS TEACHER documented as of this encounter Care Teams Corner Brace Block Machine Operator Relationship Specialty Start Date End Date Luann Cox MD PCP - General Family Medicine 04/15/15 11/02/22 Josiane Pacheco MD [address] [place] [address] PCP - General Family Medicine 11/20/22 07/30/23 Darwin Marti MD [address] [place] [address] PCP - General Internal Medicine 07/31/23 Blair Paris MD 4 [facility] , [address] [place] [address] Consulting Physician Orthopaedic Sports Medicine 07/31/23 Jose A Espinosa MD 2 [facility] [address] [place] [address] Consulting Physician Pain Medicine-Pain Management 07/31/23 02/08/24 Hao Silvestre MD [address] [address] Consulting Physician Neurological Surgery 07/31/23 Carlos Dailey MD #[address] [address] Consulting Physician Colon and Rectal Surgery 10/26/23 Saida Mckeon APRN, DIRECTOR EHS #2 [place] [address] Nurse Practitioner Gastroenterology 10/26/23 Jessenia Ward APRN, HOSE TENDER #[address] [place] [address] Nurse Practitioner Neurology 11/17/23 Hao Silvestre MD [address] [address] Consulting Physician Neurological Surgery 02/09/2401/27 Dominic Wang MD [address] [address] Consulting Physician Pain Medicine-Pain Management 02/09/24 Butch Muñiz MD #2 [place] [address] Consulting Physician Neurology 02/23/24 documented as of this encounter
--- OUTSIDE RECORDS SUMMARY | 2024-12-29 08:03 | XMS_ITS | Encounter Summary ---
Author Organization [facility] Address [address] [place] [address] Phone Care Team Providers Care Comsec Manager Name Role Phone Luann Cox MD Primary Care Provider + [phone] Josiane Pacheco MD Primary Care Provider + [phone] Blair Paris MD Unavailable [phone] Jose A Espinosa MD Unavailable [phone] Darwin Marti MD Primary Care Provider [phone] Hao Silvestre MD Unavailable [phone] Carlos Dailey MD Unavailable Saida Mckeon APRN, ARMORED CAR GUARD AND DRIVER Unavailable Jessenia Ward APRN, MEDICAL RESEARCH ASSISTANT Unavailable + [phone] Hao Silvestre MD Unavailable [phone] Dominic Wang MD Unavailable [phone] Butch Muñiz MD Unavailable [phone] Reason for Visit * Reason Comments Medication Refill Encounter Details Date Type Department Care Team (Late st Contact Info) Description 10/06/2020 Refill [facility] [address] [place] [address] Luann Cox MD [address] [place] [address] Medication Refill Social History Tobacco [...] COVID-19? No / Unsure 09/06/2020 11:36 AM CONTROL AND RECOVERY SPECIAL TACTICS documented as of this encounter Miscellaneous Notes [...] Spinal stenosis, lumbar region, with neurogenic claudication [facility] Luann Cox MD 2 months ago Uncomplicated asthma [facility] Luann Cox MD 9 months ago Essential hypertension [facility] Luann Cox MD 1 year ago Essential hypertension [facility] Luann Cox MD 1 year ago Essential hypertension [facility] Luann Cox MD Upcoming Appointments Future Appointments In 5 months Luann Cox MD [facility] - Recent and Past Visits Recent Visits Date Type Provider Dept 09/06/20 Office Visit Luann Cox MD [facility] 07/24/20 Office Visit Luann Cox MD [facility] 01/12/20 Office Visit Luann Cox MD [facility] 07/14/19 Office Visit Luann oCx MD [facility] Showing recent visits within past 460 days [...] Spinal stenosis, lumbar region, with neurogenic [facility]aud[facility] Lu[facility] MD 2 months ago Uncomplicated asthma [facility] Luann Cox MD 9 months ago Essential hypertension [facility] Luann Cox MD 1 year ago Essential hypertension [facility] Luann Cox MD 1 year ago Essential [facility] Upcoming Appointments Future Appointments In 5 months Luann Cox MD [facility] - Recent and Past Visits Recent Visits Date Type Provider Dept 09/06/20 Office Visit Luann Cox MD [facility] 07/24/20 Office Visit Luann Cox MD [facility] 01/12/20 Office Visit Luann Cox MD [facility] 07/14/19 Office Visit Luann Cox MD [facility] Showing recent visits within past 460 days [...] 02/20/2025 9:30 AM CDT Office Visit [facility] Neurology [facility] #2 [place] [address] Jessenia Ward APRN, MEDICAL RESEARCH ASSISTANT [address] [place] [address] 03/09/2025 2:30 PM CDT Office Visit [facility] [address] [place] [address] Juan Shrestha MD #[address] [address] documented as of this encounter Visit Diagnoses Diagnosis Gastroesophageal reflux disease Esophageal reflux documented in this encounter Additional Health Concerns Infection Onset Date Last Indicated Resolved Time ESBL 08/16/2018 08/16/2018 09/28/2023 9:03 AM CDT COVID - 19 03/09/2023 03/09/2023 03/19/2023 12:1 6 AM CDT Respiratory Rule-Out 03/09/2023 03/09/2023 023 2:09 AM CDT COVID - 19 05/07/2023 05/07/2023 05/07/2023 9:50 AM [employer] COVID - 19 Confirmed 05/07/2023 05/07/2023 023 12:16 AM [employer] C. difficile Rule-Out 09/24/2023 09/24/20232023 3:41 PM CDT COVID - 19 09/24/2023 09/24/2023 09/24/2023 11:3 2 AM CDT C. difficile Rule-Out 09/27/2023 09/27/20232023 2:13 PM CDT COVID - 19 02/23/2024 02/23/2024 02/23/2024 11:2 8 AM CDT Respiratory Rule-Out 02/23/2024 02/23/2024 024 11:30 AM CDT Assessment Noted Time PHQ-9 Depression Total Score: 2 07/14/19 20 10:00 AM [employer] documented as of this encounter Care Teams Comsec Manager Relationship Specialty Start Date End Date Luann Cox MD PCP - General Family Medicine 04/15/15 11/02/22 Josiane Pacheco MD [address] [place] [address] PCP - General Family Medicine 11/20/22 07/30/23 Darwin Marti MD [address] [place] [address] PCP - General Internal Medicine 07/31/23 Blair Paris MD 4 [email or web address] [address] [place] [address] Consulting Physician Orthopaedic Sports Medicine 07/31/23 Jose A Espinosa MD 2 [facility] [address] [place] [address] Consulting Physician Pain Medicine-Pain Management 07/31/23 02/08/24 Hao Silvestre MD [address] [address] Consulting Physician Neurological Surgery 07/31/23 Carlos Dailey MD #[address] [address] Consulting Physician Colon and Rectal Surgery 10/26/23 Saida Mckeon APRN, ARMORED CAR GUARD AND DRIVER #[address] [place] [address] Nurse Practitioner Gastroenterology 10/26/23 Jessenia Ward, DINING ROOM SERVER, MEDICAL RESEARCH ASSISTANT [address] [place] [address] Nurse Practitioner Neurology 11/17/23 Hao Silvestre MD [address] [address] Consulting Physician Neurological Surgery 02/09/2401/27 Dominic Wang MD [address] [facility] [address] [place] [address] Consulting Physician Pain Medicine-Pain Management 02/09/24 Butch Muñiz MD #[address] [place] [address] Consulting Physician Neurology 02/23/24 documented as of this encounter
--- OUTSIDE RECORDS SUMMARY | 2024-12-29 08:03 | XMS_ITS | Encounter Summary ---
Author Organization [facility] Address [address] [place] [address] Phone Care Team Providers Care Visor Installer Name Role Phone Luann Cox MD Primary Care Provider + [phone] Josiane Pacheco MD Primary Care Provider + [phone] Blair Paris MD Unavailable [phone] Jose A Espinosa MD Unavailable [phone] Darwin Marti MD Primary Care Provider [phone] Hao Silvestre MD Unavailable [phone] Carlos Dailey MD Unavailable Saida Mckeon APRN, MESH WORKER Unavailable Jessenia Ward APRN, BASKETBALL COMMENTATOR Unavailable + [phone] Hao Silvestre MD Unavailable +[phone] Dominic Wang MD Unavailable [phone] Butch Muñiz MD Unavailable [phone] Reason for Visit * Reason Comments Medication Refill Encounter Details Date Type Department Care Team (Late st Contact Info) Description 01/01/2022 Refill [facility] [place] [address] [place] [id number] Luann Cox MD [address] [place] [address] Medication Refill Social History [...] Dept 12/16/21 Office Visit [facility] [facility] 06/27/21 Office Visit Luann Cox MD [facility] 03/07/21 Office Visit Luann [facility] MD [facility] [employer] [facility] Showing recent visits within past 365 [...] Dept 12/16/21 Office Visit Luann Cox MD [facility] 06/27/21 Office Visit Luann Cox MD [facility] 03/07/21 Office Visit Luann Cox MD [facility] Showing recent visits within past 365 [...] Dept 12/16/21 Office Visit [facility]ann [facility] MD [facility] [employer] [facility] 06/27/21 Office Visit Luann Cox MD [facility] [employer] [facility] 03/07/21 Office Visit Luann Cox MD [facility] [employer] Showing recent visits within past 365 days [...] Dept 12/16/21 Office Visit Luann Cox MD [facility] [employer] 06/27/21 Office Visit Luann [facility] MD [facility] [employer] [facility] 03/07/21 Office Visit Luann Cox MD [facility] Showing recent visits within past 365 [...] Dept 12/16/21 Office Visit Luann Cox MD [facility] [employer] [facility] 06/27/21 Office Visit Luann [facility] MD [facility] [employer] [facility] 03/07/21 Office Visit Lu[facility] MD [facility] [employer] [facility] Showing recent visits within past 365 [...] Description 02/20/2025 9:30 AM CDT Office Visit [facility] Neurology [facility] #2 [place] [address] Jessenia Ward APRN, BASKETBALL COMMENTATOR [address] [place] [address] 03/09/2025 2:30 PM CDT Office Visit [facility] Family Medicine [facility] #2 [place] [address] Juan Shrestha MD #[address] [address] documented as of this encounter Visit Diagnoses [...] - 19 05/07/2023 05/07/2023 05/07/2023 9:50 AM DRUM PULLER COVID - 19 Confirmed 05/07/2023 05/07/2023 023 12:16 AM DRUM PULLER C. difficile Rule-Out 09/24/2023 09/24/20232023 3:41 PM CDT COVID - 19 09/24/2023 09/24/2023 09/24/2023 11:3 2 AM CDT C. difficile Rule-Out 09/27/2023 09/27/20232023 2:13 PM CDT COVID - 19 02/23/2024 02/23/2024 02/23/2024 11:2 8 AM CDT Respiratory Rule-Out 02/23/2024 02/23/2024 024 11:30 AM CDT Assessment Noted Time PHQ-9 Depression Total Score: 2 07/14/19 20 10:00 AM DRUM PULLER documented as of this encounter Care Teams Visor Installer Relationship Specialty Start Date End Date Luann Cox MD PCP - General Family Medicine 04/15/15 11/02/22 Josiane Pacheco MD [address] [place] [address] PCP - General Family Medicine 11/20/22 07/30/23 Darwin Marti MD [address] [place] [address] PCP - General Internal Medicine 07/31/23 Blair Paris MD 4 [facility] [address] [place] [address] Consulting Physician Orthopaedic Sports Medicine 07/31/23 Jose A Espinosa MD 2 [facility] [address] [place] [address] Consulting Physician Pain Medicine-Pain Management 07/31/23 02/08/24 Hao Silvestre MD [address] [place] [address] Consulting Physician Neurological Surgery 07/31/23 Carlos Dailey MD [address] [address] Consulting Physician Colon and Rectal Surgery 10/26/23 Saida Mckeon APRN, MESH WORKER [address] [place] [address] Nurse Practitioner Gastroenterology 10/26/23 Jessenia Ward APRN, BASKETBALL COMMENTATOR [address] [place] [address] Nurse Practitioner Neurology 11/17/23 Hao Silvestre MD [address] [address] Consulting Physician Neurological Surgery 02/09/2401/27 Dominic Wang MD [address] [address] Consulting Physician Pain Medicine-Pain Management 02/09/24 Butch Muñiz MD #[address] [place] [address] Consulting Physician Neurology 02/23/24 documented as of this encounter
--- OUTSIDE RECORDS SUMMARY | 2024-12-29 08:03 | XMS_ITS | Encounter Summary ---
Author Organization [facility] Address [address] [place] [address] Phone Care Team Providers Care Clinical Academic Allergist Name Role Phone Blair Paris MD Unavailable +[phone] Darwin Marti MD Primary Care Provider + [phone] Hao Silvestre MD Unavailable +[phone] Carlos Dailey MD Unavailable Saida Mckeon APRN, RESEARCH LABORATORY TECHNICIAN Unavailable Jessenia Ward APRN, CORPORATE CONSULTANT Unavailable + [phone] Dominic Wang MD Unavailable [phone] Butch Muñiz MD Unavailable +[phone] Reason for Visit * Reason Comments Medication Refill Encounter Details Date Type Department Care Team (Late st Contact Info) Description 03/04/2024 Refill [facility] - Primary Care - [place] [address] [place] [address] Darwin Marti MD [address] [place] [address] Medication Refill Social History Tobacco Use Types Packs/Day Years Used Date Smoking Tobacco: Former Cigarettes 2 41.8 1 964 - 04/09/2005 Smokeless Tobacco: Never Alcohol Use Standard Drinks/Week Comments No 0 (1 standard drink = 0.6 oz pur e alcohol) [facility] Utilities Answer Date Recorded In the past [...] often do you attend chur ch or anabaptist services? Never 09/26/2023 Do you belong to [...] Answer Date Recorded PHQ-2 Score 2 07/14/2019 [facility] [place] of Occupat ional Health - Occupational Stress [...] Description 02/20/2025 9:30 AM CDT Office Visit [facility] - Neurology - [place] [address] [place] [address] Jessenia Ward, HEAD TURBINE OPERATOR, CORPORATE CONSULTANT #2 [place] [address] 03/09/2025 2:30 PM CDT Office Visit [facility] - [place] [address] [place] [address] Juan Shrestha MD #[address] [address] documented as of this encounter Visit Diagnoses Not on filedocumented in this encounter Additional Health Concerns Assessment Noted Time PHQ-9 Depression Total Score: 0 07/31/19 24 12:53 PM EXTERNAL AUDITOR documented as of this encounter Care Teams Clinical Academic Allergist Relationship Specialty Start Date End Date Darwin Marti MD [address] [place] [address] PCP - General Internal Medicine 07/31/23 Blair Paris MD [address] [place] [address], [facility] [address] [place] [address] Consulting Physician Orthopaedic Sports Medicine 07/31/23 Hao Silvestre MD [address] [place] [id number] Consulting Physician Neurological Surgery 07/31/23 Carlos Dailey MD #[address] [address] Consulting Physician Colon and Rectal Surgery 10/26/23 Saida Mckeon APRN, RESEARCH LABORATORY TECHNICIAN #2 [place] [address] Nurse Practitioner Gastroenterology 10/26/23 Jessenia Ward APRN, CORPORATE CONSULTANT #[address] [place] [address] Nurse Practitioner Neurology 11/17/23 Dominic Wang MD [address] [address] Consulting Physician Pain Medicine-Pain Management 02/09/24 Butch Muñiz MD #2 [place] [address] Consulting Physician Neurology 02/23/24 documented as of this encounter
--- OUTSIDE RECORDS SUMMARY | 2024-12-29 08:03 | XMS_ITS | Encounter Summary ---
Author Organization [facility] Address [address] [place] [address] Phone Care Team Providers Care Beef Boner Name Role Phone Luann Cox MD Primary Care Provider + [phone] Josiane Pacheco MD Primary Care Provider + [phone] Blair Paris MD Unavailable [phone] Jose A Espinosa MD Unavailable [phone] Darwin Marti MD Primary Care Provider +[phone] Hao Silvestre MD Unavailable +[phone] Carlos Dailey MD Unavailable Saida Mckeon APRN, SENIOR SAS DEVELOPER Unavailable Jessenia Ward APRN, TRANSVERSE ABDOMINAL MUSCLE NURSE Unavailable +- [phone] Hao Silvestre MD Unavailable +[phone] Dominic Wang MD Unavailable [phone] Butch Muñiz MD Unavailable +[phone] Reason for Visit * Reason Comments Medication Refill Encounter Details Date Type Department Care Team (Late st Contact Info) Description 11/29/2021 Refill [facility] - Primary Care - [place] [address] [place] [address] Luann Cox MD [address] [place] [address] Medication Refill Social History Tobacco [...] Dept 06/27/21 Office Visit Luann Cox MD [facility] 03/07/21 Office Visit Luann Cox MD [facility] [place] [facility] Showing recent visits within past 365 days and meeting all other requirements Future Appointments Date Type Provider Dept 12/10/21 Appointment Lab, [facility] 12/16/21 Appointment Luann Cox MD [facility] [place] [facility] Showing future appointments within next 90 [...] Dept 06/27/21 Office Visit Luann Cox MD [facility] 03/07/21 Office Visit Luann Cox MD [facility] Showing recent visits within past 365 days and meeting all other requirements Future Appointments Date Type Provider Dept 12/10/21 Appointment [place], [facility] 12/16/21 Appointment Luann Cox MD [facility] Showing future appointments within next 90 days and meeting all other requirements Passed - GFR on record in past 12 months GFR, EST. NONAFRICAN Date Value Ref Range Status 10/14/2021 >60 >=60 Final documented in this encounter Plan of Treatment Upcoming Encounters Date Type Department Care Team (Late st Contact Info) Description 02/20/2025 9:30 AM CDT Office Visit [facility] - Neurology [facility] #[address] [place] [address] Jessenia Ward APRN, TRANSVERSE ABDOMINAL MUSCLE NURSE #2 [place] [address] 03/09/2025 2:30 PM CDT Office Visit [facility] - Family Medicine [facility] #[address] [place] [address] Juan Shrestha MD #[address] [address] documented as of this encounter Visit Diagnoses Diagnosis Essential hypertension Unspecified essential hypertension documented in this encounter Additional Health Concerns Infection Onset Date Last Indicated Resolved Time ESBL 08/16/2018 08/16/2018 09/28/2023 9:03 AM CDT COVID - 19 03/09/2023 03/09/2023 03/19/2023 12:1 6 AM CDT Respiratory Rule-Out 03/09/2023 03/09/2023 023 2:09 AM CDT COVID - 19 05/07/2023 05/07/2023 05/07/2023 9:50 AM SPACE OPERATIONS COVID - 19 Confirmed 05/07/2023 05/07/2023 023 12:16 AM SPACE OPERATIONS C. difficile Rule-Out 09/24/2023 09/24/20232023 3:41 PM CDT COVID - 19 09/24/2023 09/24/2023 09/24/2023 11:3 2 AM CDT C. difficile Rule-Out 09/27/2023 09/27/20232023 2:13 PM CDT COVID - 19 02/23/2024 02/23/2024 02/23/2024 11:2 8 AM CDT Respiratory Rule-Out 02/23/2024 02/23/2024 024 11:30 AM CDT Assessment Noted Time PHQ-9 Depression Total Score: 2 07/14/19 20 10:00 AM SPACE OPERATIONS documented as of this encounter Care Teams Beef Boner Relationship Specialty Start Date End Date Luann Cox MD PCP - General Family Medicine 04/15/15 11/02/22 Josiane Pacheco MD [address] [place] [address] PCP - General Family Medicine 11/20/22 07/30/23 Darwin Marti MD [address] [place] [address] PCP - General Internal Medicine 07/31/23 Blair Paris MD [address] [place] [address], [address] [address] Consulting Physician Orthopaedic Sports Medicine 07/31/23 Jose A Espinosa MD [address] [address] Consulting Physician Pain Medicine-Pain Management 07/31/23 02/08/24 Hao Silvestre MD [address] [address] Consulting Physician Neurological Surgery 07/31/23 Carlos Dailey MD #[address] [address] Consulting Physician Colon and Rectal Surgery 10/26/23 Saida Mckeon APRN, SENIOR SAS DEVELOPER [address] [place] [address] Nurse Practitioner Gastroenterology 10/26/23 Jessenia Ward APRN, TRANSVERSE ABDOMINAL MUSCLE NURSE #[address] [place] [address] Nurse Practitioner Neurology 11/17/23 Hao Silvestre MD [address] [address] Consulting Physician Neurological Surgery 02/09/2401/27 Dominic Wang MD [address] [address] Consulting Physician Pain Medicine-Pain Management 02/09/24 Butch Muñiz MD #[address] [place] [address] Consulting Physician Neurology 02/23/24 documented as of this encounter
--- OUTSIDE RECORDS SUMMARY | 2024-12-29 08:03 | XMS_ITS | Encounter Summary ---
Author Organization [facility] Address [address] [place] [address] Phone Care Team Providers Care Software Engineer Kernel Name Role Phone Luann Cox MD Primary Care Provider + [phone] Josiane Pacheco MD Primary Care Provider + [phone] Blari Paris MD Unavailable +[phone] Jose A Espinosa MD Unavailable [phone] Darwin Marti MD Primary Care Provider [phone] Hao Silvestre MD Unavailable +[phone] Carlos Dailye MD Unavailable Saida Mckeon APRN, BRINE PLANT OPERATOR Unavailable Jessenia Ward APRN, TOOL POLISHER Unavailable + [phone] Hao Silvestre MD Unavailable +[phone] Dominic Wang MD Unavailable [phone] Butch Muñiz MD Unavailable +[phone] Reason for Visit * Reason Comments Medication Refill Encounter Details Date Type Department Care Team (Late st Contact Info) Description 01/21/2020 Refill [facility] [address] [place] [phone] Luann Cox MD [address] [place] [address] Medication Refill Social History Tobacco [...] Outpatient Visits 6 months ago Essential hypertension [facility] - Luann Torres MD 1 year ago Essential hypertension [facility] - Luann Torres MD 1 year ago Syncope, unspecified syncope type [facility] - Luann Torers MD 1 year ago Sore throat [facility] - Luann Torres MD 1 year ago Essential hypertension [facility] - Luann Torres MD Upcoming Appointments Future Appointments Tomorrow SAHCUSTECH2; SAHCUS1 [facility] Ultrasound, [facility] In 1 week SAHCMAM1 [facility], [facility] In 1 week SAHCUSTECH2; SAHCUS1 [facility], [facility] In 3 months SAHCMR1 [facility] MRI, [facility] In 5 months Lab, [place] [facility] [address] In 5 months uLann Cox MD [facility] [address] [place] DELIVERY PROFESSIONAL - Recent and Past Visits Recent Visits Date Type Provider Dept 01/12/20 [facility] 07/14/19 [facility] [place] 01/11/19 Office Visit Luann Cox MD [facility] Showing recent visits within past 460 [...] Outpatient Visits 6 months ago Essential hypertension [facility] [...] Upcoming Appointments Future Appointments Tomorrow SAHCUSTECH2; SAHCUS1 [facility] Ultrasound, [facility] In 1 week SAHCMAM1 [facility], [facility] In 1 week SAHCUSTECH2; SAHCUS1 [facility] Ultrasound, [facility] In 3 months [facility] months [place], [place] [facility] [address] In 5 months Luann Cxo MD [facility] [address] [place] DELIVERY PROFESSIONAL - Recent and Past Visits Recent Visits Date Type Provider Dept 01/12/20 Office Visit Luann Cox MD [facility] [address] 07/14/19 Office Visit [facility] MD [facility] 01/11/19 Office Visit [facility] MD [facility] [place] Showing recent visits within past 460 [...] AM CDT Office Visit [facility] - [place] [address] [place] [address] Jessenia Ward APRN, [facility] #[address] [place] [address] 03/09/2025 2:30 PM CDT [facility] Visit [facility] - Family [facility] #[address] [place] [address] Juan Shrestha MD [address] [address] documented as of this encounter Visit Diagnoses Diagnosis Hyperlipidemia, unspecified hyperlipidemia type documented in this encounter Additional Health Concerns Infection Onset Date Last Indicated Resolved Time ESBL 08/16/2018 08/16/2018 09/28/2023 9:03 AM CDT COVID - 19 03/09/2023 03/09/2023 03/19/2023 12:1 6 AM CDT Respiratory Rule-Out 03/09/2023 03/09/2023 023 2:09 AM CDT COVID - 19 05/07/2023 05/07/2023 05/07/2023 9:50 AM NET SQL DEVELOPER COVID - 19 Confirmed 05/07/2023 05/07/2023 023 12:16 AM NET SQL DEVELOPER C. difficile Rule-Out 09/24/2023 09/24/20232023 3:41 PM CDT COVID - 19 09/24/2023 09/24/2023 09/24/2023 11:3 2 AM CDT C. difficile Rule-Out 09/27/2023 09/27/20232023 2:13 PM CDT COVID - 19 02/23/2024 02/23/2024 02/23/2024 11:2 8 AM CDT Respiratory Rule-Out 02/23/2024 02/23/2024 024 11:30 AM CDT Assessment Noted Time PHQ-9 Depression Total Score: 2 07/14/19 20 10:00 AM NET SQL DEVELOPER documented as of this encounter Care Teams Software Engineer Kernel Relationship Specialty Start Date End Date Luann Cox MD PCP - General Family Medicine 04/15/15 11/02/22 Josiane Pacheco MD [address] [place] [address] PCP - General Family Medicine 11/20/22 07/30/23 Darwin Marti MD [address] [place] [address] PCP - General Internal Medicine 07/31/23 Blair Paris MD 4 [facility] [address] [place] [address] Consulting Physician Orthopaedic Sports Medicine 07/31/23 Jose A Espinosa MD [address] [address] Consulting Physician Pain Medicine-Pain Management 07/31/23 02/08/24 Hao Silvestre MD [address] [address] Consulting Physician Neurological Surgery 07/31/23 Carlos Dailey MD #[address] [address] Consulting Physician Colon and Rectal Surgery 10/26/23 Saida Mckeon APRN, BRINE PLANT OPERATOR #[address] [place] [address] Nurse Practitioner Gastroenterology 10/26/23 Jessenia Ward APRN, TOOL POLISHER [address] [place] [address] Nurse Practitioner Neurology 11/17/23 Hao Silvestre MD [address] [address] Consulting Physician Neurological Surgery 02/09/2401/27 Dominic Wang MD [address] [address] Consulting Physician Pain Medicine-Pain Management 02/09/24 Butch Muñiz MD #[address] [place] [address] Consulting Physician Neurology 02/23/24 documented as of this encounter
--- OUTSIDE RECORDS SUMMARY | 2024-12-29 08:03 | XMS_ITS | Encounter Summary ---
Author Organization [facility] Address [address] [place] [address] Phone Care Team Providers Care Medical Attendant Name Role Phone Luann Cox MD Primary Care Provider + [phone] Josiane Pacheco MD Primary Care Provider + [phone] Blair Paris MD Unavailable +[phone] Jose A Espinosa MD Unavailable [phone] Darwin Marti MD Primary Care Provider +[phone] Hao Silvestre MD Unavailable +[phone] Carlos Dailey MD Unavailable Saida Mckeon APRN, CALL CENTER COORDINATOR Unavailable Jessenia Ward APRN, BUSINESS CONTINUITY PLANNING DIRECTOR Unavailable + [phone] Hao Silvestre MD Unavailable [phone] Dominic Wang MD Unavailable [phone] Butch Muñiz MD Unavailable +[phone] Reason for Visit * Reason Comments Medication Refill Encounter Details Date Type Department Care Team (Late st Contact Info) Description 04/19/2021 Refill [facility] - Primary Care - [place] [address] [place] [address] Luann Cox MD [address] [place] [address] Medication Refill Social History Tobacco [...] Dept 03/07/21 Office Visit Luann Cox MD [facility] 09/06/20 Office Visit Luann Cox MD [facility] 07/24/20 Office Visit Luann Cox MD [facility] Showing recent visits within past 365 days and meeting all other requirements Future Appointments Date Type Provider Dept 06/13/21 Appointment Luann Cox MD [facility] Showing future appointments within next 90 days [...] Dept 03/07/21 Office Visit [facility] 09[facility]06/20 Office Visit [facility] MD [facility] 07/24/20 Office Visit Luann Cox MD [facility] Showing recent visits within past 365 days and meeting all other requirements Future Appointments Date Type Provider Dept 06/13/21 Appointment Luann Cox MD [facility] Showing future appointments within next 90 days [...] Dept 03/07/21 Office Visit Luann Cox MD [facility] 09/06/20 Office Visit [facility] MD [facility] 07/24/20 Office Visit Lu[facility] MD [facility] Showing recent visits within past 365 days and meeting all other requirements Future Appointments Date Type Provider Dept 06/13/21 Appointment Luann Cox MD [facility] Showing future appointments within next 90 days and meeting all other requirements Passed - Normal TSH in past 12 months TSH Date Value Ref Range Status 03/05/2021 2.770 0.270 - 4.200 mIU/L Final documented in this encounter Plan of Treatment Upcoming Encounters Date Type Department Care Team (Late st Contact Info) Description 02/20/2025 9:30 AM CDT Office Visit [facility] - Neurology [facility] #[address] [place] [address] Jessenia Ward APRN, BUSINESS CONTINUITY PLANNING DIRECTOR #[address] [place] [address] 03/09/2025 2:30 PM CDT Office Visit [facility] Family Medicine [facility] #[address] [place] [address] Juan Shrestha MD #[address] [address] documented as of this encounter Visit Diagnoses [...] - 19 05/07/2023 05/07/2023 05/07/2023 9:50 AM PANEL SEWER COVID - 19 Confirmed 05/07/2023 05/07/2023 023 12:16 AM PANEL SEWER C. difficile Rule-Out 09/24/2023 09/24/20232023 3:41 PM CDT COVID - 19 09/24/2023 09/24/2023 09/24/2023 11:3 2 AM CDT C. difficile Rule-Out 09/27/2023 09/27/20232023 2:13 PM CDT COVID - 19 02/23/2024 02/23/2024 02/23/2024 11:2 8 AM CDT Respiratory Rule-Out 02/23/2024 02/23/2024 024 11:30 AM CDT Assessment Noted Time PHQ-9 Depression Total Score: 2 07/14/19 20 10:00 AM PANEL SEWER documented as of this encounter Care Teams Medical Attendant Relationship Specialty Start Date End Date Luann Cox MD PCP - General Family Medicine 04/15/15 11/02/22 Josiane Pacheco MD [address] [place] [address] PCP - General Family Medicine 11/20/22 07/30/23 Darwin Marti MD [address] [place] [address] PCP - General Internal Medicine 07/31/23 Blair Paris MD 4 [facility] [address] [place] [address] Consulting Physician Orthopaedic Sports Medicine 07/31/23 Jose A Espinosa MD 2 [facility] [address] [place] [address] Consulting Physician Pain Medicine-Pain Management 07/31/23 02/08/24 [place] [address] [place] [address] Consulting Physician Neurological Surgery 07/31/23 Carlos Dailey MD #[address] [address] Consulting Physician Colon and Rectal Surgery 10/26/23 Saida Mckeon APRN, CALL CENTER COORDINATOR #[address] [place] [address] Nurse Practitioner Gastroenterology 10/26/23 Jessenia Ward APRN, BUSINESS CONTINUITY PLANNING DIRECTOR #[address] [place] [address] Nurse Practitioner Neurology 11/17/23 Hao Silvestre MD [address] [address] Consulting Physician Neurological Surgery 02/09/2401/27 Dominic Wang MD [address] [address] Consulting Physician Pain Medicine-Pain Management 02/09/24 Butch Muñiz MD #2 [place] [address] Consulting Physician Neurology 02/23/24 documented as of this encounter
--- OUTSIDE RECORDS SUMMARY | 2024-12-29 08:03 | XMS_ITS | Encounter Summary ---
Author Organization [facility] Address [address] [place] [address] Phone Care Team Providers Care Manager Employee Benefits Name Role Phone Blair Paris MD Unavailable +[phone] Jose A Espinosa MD Unavailable [phone] Darwin Marti MD Primary Care Provider +[phone] Hao Silvestre MD Unavailable +[phone] Carlos Dailey MD Unavailable Saida Mckeon APRN, PROCESSING ENGINEER Unavailable Jessenia Ward APRN, [facility] Unavailable + [phone] Hao Silvestre MD Unavailable +[phone] Dominic Wang MD Unavailable +[phone] Butch Muñiz MD Unavailable [phone] Reason for Visit * Reason Comments Medication Refill Encounter Details Date Type Department Care Team (Late Contact Info) Description 08/18/2023 Refill [facility] - [place] [address] [place] [address] Ranjeet [place] PAC [address] [place] [address] Medication Refill Social History Tobacco [...] - 08/18/2023 1:20 PM CST Duplicate Request PER HAND documented in this encounter Plan of Treatment Upcoming Encounters Date Type Department Care Team (Late Contact Info) Description 02/20/2025 9:30 AM CDT Office Visit [facility] - Neurology - [place] #[address] [place] [address] Jessenia Ward APRN, TECHNICAL SUPPORT ENGINEER #2 [place] [address] 03/09/2025 2:30 PM CDT Office Visit [facility] - Family Medicine - [place] #2 [place] [address] Juan Shrestha MD #[address] [facility] [address] [place] [address] documented as of this encounter Visit Diagnoses [...] Total Score: 0 07/31/19 24 12:53 PM WRAPPER HAND documented as of this encounter Care Teams Manager Employee Benefits Relationship Specialty Start Date End Date Darwin Marti MD [address] [place] [address] PCP - General Internal Medicine 07/31/23 Blair Paris MD 4 [facility] [address] [place] [address] Consulting Physician Orthopaedic Sports Medicine 07/31/23 Jose A Espinosa MD 2 [facility] [address] [place] [address] Consulting Physician Pain Medicine-Pain Management 07/31/23 02/08/24 Hao Silvestre MD [address] [address] Consulting Physician Neurological Surgery 07/31/23 Carlos Dailey MD #[address] [address] Consulting Physician Colon and Rectal Surgery 10/26/23 Saida Mckeon APRN, PROCESSING ENGINEER #[address] [place] [address] Nurse Practitioner Gastroenterology 10/26/23 Jessenia Ward APRN, TECHNICAL SUPPORT ENGINEER #2 [place] [address] Nurse Practitioner Neurology 11/17/23 Hao Silvestre MD [address] [address] Consulting Physician Neurological Surgery 02/09/2401/27 Dominic Wang MD [address] [address] Consulting Physician Pain Medicine-Pain Management 02/09/24 Butch Muñiz MD #2 [place] [address] Consulting Physician Neurology 02/23/24 documented as of this encounter
--- OUTSIDE RECORDS SUMMARY | 2024-12-29 08:03 | XMS_ITS | Encounter Summary ---
Author Organization [facility] Address [address] [place] [address] Phone Care Team Providers Care Applications Manager Name Role Phone Luann Cox MD Primary Care Provider + [phone] Josiane Pacheco MD Primary Care Provider + [phone] Blair Paris MD Unavailable [phone] Jose A Espinosa MD Unavailable [phone] Darwin Marti MD Primary Care Provider +[phone] Hao Silvestre MD Unavailable [phone] Carlos Dailey MD Unavailable Saida Mckeon APRN, DIGITAL FORENSIC EXAMINER Unavailable Jessenia Ward APRN, K 8 SCHOOL PRINCIPAL Unavailable + [phone] Hao Silvestre MD Unavailable [phone] Dominic Wang MD Unavailable [phone] Butch Muñiz MD Unavailable +[phone] Reason for Visit * Reason Comments Medication Refill Encounter Details Date Type Department Care Team (Late st Contact Info) Description 04/27/2021 Refill [facility] - [facility] - [place] [address] [place] [id number] Luann Cox MD [address] [place] [address] Medication Refill Social History Tobacco [...] Dept 03/07/21 Office Visit Luann Cox MD [facility] 09/06/20 Office Visit [facility] MD [facility] [address] 07/24/20 Office Visit [facility] Showing recent visits within past 365 days and meeting all other requirements Future Appointments Date Type Provider Dept 06/13/21 Appointment Luann Cox MD [facility] Showing future appointments within next 90 days [...] Dept 03/07/21 Office Visit [facility]ann [facility] MD [facility] [address] 09/06/20 Office Visit Luann Cox MD [facility] [address] 07/24/20 Office Visit Luann Cox MD [facility] Showing recent visits within past 365 days and meeting all other requirements Future Appointments Date Type Provider Dept 06/13/21 Appointment Luann Cox MD [facility] Showing future appointments within next 90 days and meeting all other requirements documented in this encounter Plan of Treatment Upcoming Encounters Date Type Department Care Team (Late st Contact Info) Description 02/20/2025 9:30 AM CDT Office Visit [facility] - Neurology - [place] [address] [place] [address] Jessenia Ward APRN, K 8 SCHOOL PRINCIPAL [address] [place] [address] 03/09/2025 2:30 PM CDT Office Visit [facility] Family Medicine - [place] [address] [place] [address] Juan Shrestha MD #[address] [address] documented as of this encounter Visit Diagnoses Diagnosis Hyperlipidemia, unspecified hyperlipidemia type documented in this encounter Additional Health Concerns Infection Onset Date Last Indicated Resolved Time ESBL 08/16/2018 08/16/2018 09/28/2023 9:03 AM CDT COVID - 19 03/09/2023 03/09/2023 03/19/2023 12:1 6 AM CDT Respiratory Rule-Out 03/09/2023 03/09/2023 023 2:09 AM CDT COVID - 19 05/07/2023 05/07/2023 05/07/2023 9:50 AM FOUR SLIDE MACHINE OPERATOR COVID - 19 Confirmed 05/07/2023 05/07/2023 023 12:16 AM FOUR SLIDE MACHINE OPERATOR C. difficile Rule-Out 09/24/2023 09/24/20232023 3:41 PM CDT COVID - 19 09/24/2023 09/24/2023 09/24/2023 11:3 2 AM CDT C. difficile Rule-Out 09/27/2023 09/27/20232023 2:13 PM CDT COVID - 19 02/23/2024 02/23/2024 02/23/2024 11:2 8 AM CDT Respiratory Rule-Out 02/23/2024 02/23/2024 024 11:30 AM CDT Assessment Noted Time PHQ-9 Depression Total Score: 2 07/14/19 20 10:00 AM FOUR SLIDE MACHINE OPERATOR documented as of this encounter Care Teams Applications Manager Relationship Specialty Start Date End Date Luann Cox MD PCP - General Family Medicine 04/15/15 11/02/22 Josiane Pacheco MD [address] [place] [address] PCP - General Family Medicine 11/20/22 07/30/23 Darwin Marti MD [address] [place] [address] PCP - General Internal Medicine 07/31/23 Blair Paris MD 4 [facility] , [facility] [address] [place] [address] Consulting Physician Orthopaedic Sports Medicine 07/31/23 Jose A Espinosa MD 2 [facility] [address] [place] [address] Consulting Physician Pain Medicine-Pain Management 07/31/23 02/08/24 Hao Silvestre MD [address] [address] Consulting Physician Neurological Surgery 07/31/23 Carlos Dailey MD #2 [facility] [address] [place] [address] Consulting Physician Colon and Rectal Surgery 10/26/23 Saida Mckeon APRN, DIGITAL FORENSIC EXAMINER [address] [place] [address] Nurse Practitioner Gastroenterology 10/26/23 Jessenia Ward APRN, K 8 SCHOOL PRINCIPAL [address] [place] [address] Nurse Practitioner Neurology 11/17/23 Hao Silvestre MD [address] [facility] [address] [place] [address] Consulting Physician Neurological Surgery 02/09/2401/27 Dominic Wang MD [facility] [facility] [place] [address] Consulting Physician Pain Medicine-Pain Management 02/09/24 Butch Muñiz MD [address] [place] [address] Consulting Physician Neurology 02/23/24 documented as of this encounter
--- OUTSIDE RECORDS SUMMARY | 2024-12-29 08:03 | XMS_ITS | Encounter Summary ---
Author Organization [facility] Address [address] [place] [address] Phone Care Team Providers Care Front End Ui Developer Name Role Phone Luann Cox MD Primary Care Provider + [phone] Josiane Pacheco MD Primary Care Provider + [phone] Blair Paris MD Unavailable [phone] Jose A Espinosa MD Unavailable [phone] Darwin Marti MD Primary Care Provider +[phone] Hao Silvestre MD Unavailable +[phone] Carlos Dailey MD Unavailable Saida Mckeon APRN, TEXTILE ENGRAVER Unavailable Jessenia Ward APRN, FINE GRADE BULLDOZER OPERATOR Unavailable + [phone] Hao Silvestre MD Unavailable +[phone] Dominic Wang MD Unavailable [phone] Butch Muñiz MD Unavailable +[phone] Reason for Visit * Reason Comments Medication Refill Encounter Details Date Type Department Care Team (Late st Contact Info) Description 04/06/2020 Refill [facility] [address] [place] [address] Luann Cox MD [address] [place] [address] Medication Refill Social History Tobacco [...] Outpatient Visits 2 months ago Essential hypertension [facility] Luann Cox MD 9 months ago Essential hypertension [facility] Luann Torres MD 1 year ago [facility] 1 year [facility] Syncope, unspecified syncope type [facility] Luann Torres MD 1 year ago [facility]ore [facility] Upcoming Appointments Future Appointments In [address], [facility] In 3 months [facility], [facility] In 3 months Luann Cox MD [facility] COIL CONNECTOR - Recent and Past Visits Recent Visits Date Type Provider Dept 01/12/20 Office Visit Luann Cox MD [facility] 07/14/19 Office Visit Luann Cox MD [facility] 01/11/19 Office Visit [facility] Outpatient Visits 2 months ago Essential hypertension [facility] Luann Cox MD 9 months ago [facility] 1 [facility] Essential hypertension [facility] Luann Torres MD 1 year ago Syncope, unspecified syncope type [facility]ann, MD 1 year ago Sore throat [facility] - Luann Torres MD Upcoming Appointments Future Appointments In 1 month [facility], [facility] In 3 months Lab, [place] [facility] In 3 months Luann Cox MD [facility] COIL CONNECTOR - Recent and Past Visits Recent Visits Date Type Provider Dept 01/12/20 Office Visit Luann Cox MD [facility] 07/14/19 Office Visit Luann Cox MD [facility] 01/11/19 Office Visit [facility] [...] 9:30 AM CDT Office Visit [facility] Neurology - [place] [address] [place] [address] Jessenia Ward APRN, FINE GRADE BULLDOZER OPERATOR [address] [place] [address] 03/09/2025 2:30 PM CDT Office Visit [facility] Family Medicine [facility] [address] [place] [address] Juan Shrestha MD #[address] [address] documented as of this encounter Visit Diagnoses Diagnosis Gastroesophageal reflux disease Esophageal reflux documented in this encounter Additional Health Concerns Infection Onset Date Last Indicated Resolved Time ESBL 08/16/2018 08/16/2018 09/28/2023 9:03 AM CDT COVID - 19 03/09/2023 03/09/2023 03/19/2023 12:1 6 AM CDT Respiratory Rule-Out 03/09/2023 03/09/2023 023 2:09 AM CDT COVID - 19 05/07/2023 05/07/2023 05/07/2023 9:50 AM STAFF ELECTRONIC WARFARE OFFICER COVID - 19 Confirmed 05/07/2023 05/07/2023 023 12:16 AM STAFF ELECTRONIC WARFARE OFFICER C. difficile Rule-Out 09/24/2023 09/24/20232023 3:41 PM CDT COVID - 19 09/24/2023 09/24/2023 09/24/2023 11:3 2 AM CDT C. difficile Rule-Out 09/27/2023 09/27/20232023 2:13 PM CDT COVID - 19 02/23/2024 02/23/2024 02/23/2024 11:2 8 AM CDT Respiratory Rule-Out 02/23/2024 02/23/2024 024 11:30 AM CDT Assessment Noted Time PHQ-9 Depression Total Score: 2 07/14/19 20 10:00 AM STAFF ELECTRONIC WARFARE OFFICER documented as of this encounter Care Teams Front End Ui Developer Relationship Specialty Start Date End Date Luann Cox MD PCP - General Family Medicine 04/15/15 11/02/22 Josiane Pacheco MD [address] [place] [address] PCP - General Family Medicine 11/20/22 07/30/23 Darwin Marti MD [address] [place] [address] PCP - General Internal Medicine 07/31/23 Blair Paris MD 4 [facility] [address] [place] [address] Consulting Physician Orthopaedic Sports Medicine 07/31/23 Jose A Espinosa MD 2 [facility] [address] [place] [address] Consulting Physician Pain Medicine-Pain Management 07/31/23 02/08/24 Hao Silvestre MD [address] [address] Consulting Physician Neurological Surgery 07/31/23 Carlos Dailey MD #[address] [address] Consulting Physician Colon and Rectal Surgery 10/26/23 Saida Mckeon APRN, TEXTILE ENGRAVER [address] [place] [address] Nurse Practitioner Gastroenterology 10/26/23 Jessenia Ward, MAILS SUPERVISOR, FINE GRADE BULLDOZER OPERATOR [address] [place] [address] Nurse Practitioner Neurology 11/17/23 Hao Silvestre MD [address] [place] [address] Consulting Physician Neurological Surgery 02/09/2401/27 Dominic Wang MD [address] [address] Consulting Physician Pain Medicine-Pain Management 02/09/24 Butch Muñiz MD [address] [place] [address] Consulting Physician Neurology 02/23/24 documented as of this encounter
--- OUTSIDE RECORDS SUMMARY | 2024-12-29 08:03 | XMS_ITS | Clinical Summary ---
Author Organization [facility] Address [address] [facility] [place] [address] Care Team Providers Care Healthcare Financial Analyst Name Role Phone Darwin Marti MD Primary Care Provider [phone] Source Comments [facility],non-owned Affiliates and Associated Physician Practices is amultiple site organization consisting of ambulatory clinics and hospital sitesin [place], [place], [place] and [place]. This disclosure is being madepursuant to the Care Everywhere program and may not contain all information available regarding this patient. Last updated 18.[facility] Allergies Active Allergy Reactions Criticality Noted [...] Reaction: Vomiting, Penicillins Other,Unknown 03/28/2021 Reaction: Unknown, [place] Unknown 06/15/2015 Sulfa Drugs Other 02/08/2020 Reaction: Unknown, Tetanus Antitoxin Swelling 06/15/2015 Tetanus Toxoid Unknown 07/02/2015 Medications * Be aware that medications may not be up to date on this document. Alwaysverify current medications with the patient. Vitamins-Lipotr opics (MULTIPLE VITAMIN) capsule Take 1 tablet by mouth once daily Active albuterol HFA (PROVENTIL;VENT ROBERT;PROAIR) 108 (90 Base) MCG/ACT inhaler Inhale 1 puff by mouth 9 Active ascorbic acid (VITAMIN C) 500 MG tablet Take 1 tablet by mouth 2 times daily until finished 8 Active clopidogrel (PLAVIX) 75 MG tablet Take 75 mg by mouth once daily 0 Active cyclobenzaprine (FLEXERIL) 10 MG tablet 10 mg 6 Active gabapentin (NEURONTIN) 300 MG capsule TAKE 1 CAPSULE BY MOUTH THREE TIMES DAILY FOR 90 DAYS 8 Active hydroCHLOROthia zide (HYDRODIURIL) 25 MG tablet Take 1 tablet by mouth once daily 8 Active levothyroxine (SYNTHROID) 50 MCG tablet Take 1 tablet by mouth once daily 8 Active meclizine (ANTIVERT) 25 MG tablet [The details of the medication are not available because there are pending changes by a home health clinician.] 8 Active metoprolol tartrate (LOPRESSOR) 25 MG tablet TAKE ONE TABLET BY MOUTH TWICE DAILY 8 Active ondansetron, disintegrating, (ZOFRAN ODT) 4 MG tablet Take 4 mg by mouth 8 Active pantoprazole EC (PROTONIX) 40 MG tablet Take 1 tablet by mouth once daily 5 Active simvastatin (ZOCOR) 40 MG tablet Take 1 tablet by mouth once daily 5 Active cetirizine (ZYRTEC) 10 MG tablet Take 10 mg by mouth once daily 1 Active DULERA 100-5 MCG/ACT inhaler Inhale 2 puffs by mouth 2 times daily 1 Active meloxicam (MOBIC) 15 MG tablet Take 15 mg by mouth once daily 1 Active vitamin D3 (CHOLECALCIFERO L) (25 MCG) 1000 UNIT capsule Take 1,000 Units by mouth once daily 0 Active traMADol (ULTRAM) 50 MG tablet Take 1 (one) tablet by mouth every 6 hours as needed 12 tablet 2 Active Additional Information Patient taking differently:50 mg Oral EVERY 6 HOURS PRN,(No instructions reported), Reported on 11/15/2021 docusate sodium (COLACE) 100 MG capsule Take 1 (one) capsule by mouth once daily 30 capsule 2 Active Active Problems Problem Noted Date Diagnosed Date Blurred vision 10/08/2021 MVP (mitral valve prolapse) 10/08/2021 Anemia 10/08/2021 Shortness of breath 10/08/2021 GERD (gastroesophageal reflux disease) 1 HLD (hyperlipidemia) [...] prolapse 02/19/2015 Overview (03/28/2021): Mitral valve prolapse Encounters Date Type Department Care Team Description 10/21/2024 Patient Outreach [facility] - Care Coordination [address] [place] [address] Kirstie Unger MA Outreach Preventive Care from Last 3 Months Immunizations Immunization Administration Dates Next Due INFLUENZA VACCINE, TRIV. [...] money to get more. Never true 10/18/2021 Comments Unknown Sex and Gender Information Value Date Recorded Sex Assigned at Not on file Legal Sex Female 11:17 AM CDT Gender Identity Not on file Sexual [...] 6:48 AM CDT Height 162.6 cm (5' 4) 10/18/2021 6:48 AM CDT Body Mass Index [...] - 1-dose 75+ series) 01/15/2023 COVID-19 VACCINE ( season) 2024 07/01/2021, 11/06/2020, 10/09/2020 DEPRESSION SCREENING 06/29/2024 INFLUENZA VACCINE (#1) 2025 , 07/12/2020, 05/04/2019, Additional history exists PNEUMOCOCCAL VACCINE 50+ Completed 09/23/2016, 06/2012 HEPATITIS [...] on patient's age to complete this topic Insurance MEDICARE [facility] Advance Directives * Full Code (Latest Code Status on File) Date Activated Date Inactivated Comments 10/18/2021 5:32 PM 10/19/2021 1:05 PM Care Teams Healthcare Financial Analyst Relationship Specialty Start Date End Date Darwin Marti MD [address] [place] [address] PCP - General Internal Medicine 10/27/23
--- OUTSIDE RECORDS SUMMARY | 2024-12-29 08:03 | XMS_ITS | Encounter Summary ---
Author Organization [facility] Address [address] [place] [address] Phone Care Team Providers Care Entry Engineer Name Role Phone Luann Cox MD Primary Care Provider + [phone] Josiane Pacheco MD Primary Care Provider + [phone] Blair Paris MD Unavailable [phone] Jose A Espinosa MD Unavailable [phone] Darwin Marti MD Primary Care Provider [phone] Hao Silvestre MD Unavailable [phone] Carlos Dailey MD Unavailable Saida Mckeon APRN, MOVIE OPERATOR Unavailable Jessenia Ward APRN, MINING ENGINEERING TECHNOLOGIST Unavailable + [phone] Hao Silvestre MD Unavailable +[phone] Dominic Wang MD Unavailable [phone] Butch Muñiz MD Unavailable [phone] Reason for Visit * Reason Comments Medication Refill Encounter Details Date Type Department Care Team (Late st Contact Info) Description 04/29/2022 Refill [facility] - Primary Care - [place] [address] [place] [address] Luann Cox MD [address] [place] [address] Medication Refill Social History Tobacco [...] Dept 12/16/21 Office Visit [facility] MD [facility] 06/27/21 Office Visit Luann Cox MD [facility] [employer] [facility] Showing recent visits within past 365 days and meeting all other requirements Future Appointments Date Type Provider Dept 05/23/22 Appointment Lab, [place] [facility] [employer] [facility] 05/29/22 Appointment Luann Cox MD [facility] [employer] [facility] Showing future appointments within next 90 days [...] Dept 12/16/21 Office Visit Luann Cox MD [facility] [employer] [facility] 06/27/21 Office Visit Luann Cox MD [facility] [facility] Showing recent visits within past 365 days and meeting all other requirements Future Appointments Date Type Provider Dept 05/23/22 Appointment Lab, [place] [facility] [employer] [facility] 05/29/22 Appointment Luann Cox MD [facility] [employer] [facility] Showing future appointments within next 90 days [...] Dept 12/16/21 Office Visit Luann Cox MD [facility] 06/27/21 Office Visit Luann Cox MD [facility] Showing recent visits within past 365 days and meeting all other requirements Future Appointments Date Type Provider Dept 05/23/22 Appointment Lab, [place] [facility] 05/29/22 Appointment Luann Cox MD [facility] Showing future appointments within next 90 days [...] Dept 12/16/21 Office Visit Luann Cox MD [facility] 06/27/21 Office Visit Luann Cox MD [facility] Showing recent visits within past 365 days and meeting all other requirements Future Appointments Date Type Provider Dept 05/23/22 [facility]ointment [facility] [place] [facility] 05/29/22 Appointment Luann Cox MD [facility] [address] Showing future appointments within next 90 days and meeting all other requirements documented in this encounter Plan of Treatment Upcoming Encounters Date Type Department Care Team (Late st Contact Info) Description 02/20/2025 9:30 AM CDT Office Visit [facility] - [facility] [address] [place] [address] Jessenia Ward APRN, MINING ENGINEERING TECHNOLOGIST [address] [place] [address] 03/09/2025 2:30 PM CDT Office Visit [facility] Family Medicine - [place] [address] [place] [address] Juan Shrestha MD #[address] [address] documented as of this encounter Visit Diagnoses [...] - 19 05/07/2023 05/07/2023 05/07/2023 9:50 AM RELOCATION COMMISSIONER COVID - 19 Confirmed 05/07/2023 05/07/2023 023 12:16 AM RELOCATION COMMISSIONER C. difficile Rule-Out 09/24/2023 09/24/20232023 3:41 PM CDT COVID - 19 09/24/2023 09/24/2023 09/24/2023 11:3 2 AM CDT C. difficile Rule-Out 09/27/2023 09/27/20232023 2:13 PM CDT COVID - 19 02/23/2024 02/23/2024 02/23/2024 11:2 8 AM CDT Respiratory Rule-Out 02/23/2024 02/23/2024 024 11:30 AM CDT Assessment Noted Time PHQ-9 Depression Total Score: 2 07/14/19 20 10:00 AM RELOCATION COMMISSIONER documented as of this encounter Care Teams Entry Engineer Relationship Specialty Start Date End Date Luann Cox MD PCP - General Family Medicine 04/15/15 11/02/22 Josiane Pacheco MD [address] [place] [address] PCP - General Family Medicine 11/20/22 07/30/23 Darwin Marti MD [address] [place] [address] PCP - General Internal Medicine 07/31/23 Blair Paris MD 4 [facility] [address] [place] [address] Consulting Physician Orthopaedic Sports Medicine 07/31/23 Jose A Espinosa MD 2 [facility] [address] [place] [address] Consulting Physician Pain Medicine-Pain Management 07/31/23 02/08/24 Hao Silvestre MD [address] [address] Consulting Physician Neurological Surgery 07/31/23 Carlos Dailey MD #2 [facility] [address] [place] [address] Consulting Physician Colon and Rectal Surgery 10/26/23 Saida Mckeon APRN, [facility] [address] [place] [address] Nurse Practitioner Gastroenterology 10/26/23 Jessenia Ward APRN, MINING ENGINEERING TECHNOLOGIST #[address] [place] [address] Nurse Practitioner Neurology 11/17/23 Hao Silvestre MD [address] [address] Consulting Physician Neurological Surgery 02/09/2401/27 Dominic Wang MD [address] [address] Consulting Physician Pain Medicine-Pain Management 02/09/24 Butch Muñiz MD [address] [place] [address] Consulting Physician Neurology 02/23/24 documented as of this encounter
--- OUTSIDE RECORDS SUMMARY | 2024-12-29 08:03 | XMS_ITS | Encounter Summary ---
Author Organization [facility] Address [address] [place] [address] Care Team Providers Care Process Chemist Name Role Phone Luann Cox MD Primary Care Provider [phone] Ana Hassan Unavailable [phone] Darwin Marti MD Primary Care Provider + [phone] Kirstie Unger MA Unavailable [phone] Encounter Details Date Type Department Care Team (Late st Contact Info) Description 10/19/2021 Ophth Exam [facility] [address] [place] [address] Brielle Howe MD [address] [place] [address] [place] [address] Social History Tobacco Use Types [...] documented as of this encounter Functional Status * Is person deaf or have serious hearing difficulty? Answer Date of Assessment Author No 10/19/2021 9:57 AM Lillian Ibrahim RN * Is person blind or have serious difficulty seeing? Answer Date of Assessment Author Yes 10/19/2021 9:57 AM Lillian Ibrahim RN * Does person have serious difficulty walking/climbing stairs? Answer Date of Assessment Author No 10/19/2021 9:57 AM Lillian Ibrahim RN * Does person have difficulty dressing/bathing? Answer Date of Assessment Author No 10/19/2021 9:57 AM Lillian Ibrahim RN * Does person have difficulty doing errands alone? Answer Date of Assessment Author No 10/19/2021 9:57 AM Lillian Ibrahim RN documented as of this encounter Mental Status * Does person have difficulty concentrating/remembering/making decisions? Answer Entry Date Author No 10/19/2021 9:57 AM Lillian Ibrahim RN documented in this encounter Plan of Treatment Not on file documented as of this encounter Visit Diagnoses Not on filedocumented in this encounter Care Teams Process Chemist Relationship Specialty Start Date End Date Luann Cox MD PCP - General Family Medicine 05/06/21 10/26/23 Darwin Marti MD [address] [place] [address] PCP - General Internal Medicine 10/27/23 Ana Hassan Care Coordination Specialist Care Management 10/27/23 10/27/23 Kirstie Unger MA Care Coordination Specialist 10/21/24 10/24/24 documented as of this encounter
--- OUTSIDE RECORDS SUMMARY | 2024-12-29 08:03 | XMS_ITS | Encounter Summary ---
Author Organization [facility] Address [address] [place] [address] Phone Care Team Providers Care Assistant Associate Professor Name Role Phone Josiane Pacheco MD Primary Care Provider [phone] Blair Paris MD Unavailable [phone] Jose A Espinoas MD Unavailable [phone] Darwin Marti MD Primary Care Provider [phone] Hao Silvestre MD Unavailable [phone] Carlos Dailey MD Unavailable Saida Mckeon APRN, INSPECTOR HEALTH CARE FACILITIES Unavailable Jessenia Ward APRN, OUTREACH NURSE Unavailable + [phone] Hao Silvestre MD Unavailable Dominic Wang MD Unavailable +[phone] Butch Muñiz MD Unavailable [phone] Reason for Visit * Reason Comments Medication Refill Encounter Details Date Type Department Care Team ([facility] Contact Info) Description 03/31/2023 Refill [facility] - Primary Care - [place] [address] [place] [address] Josiane Pacheco MD [address] [place] [address] Medication Refill Social History Tobacco Use Types [...] Upcoming Encounters Date Type Department Care Team ([facility] Contact Info) Description 02/20/2025 9:30 AM CDT Office Visit [facility] [address] [place] [address] Jessenia Ward APRN, OUTREACH NURSE [address] [place] [address] 03/09/2025 2:30 PM CDT Office Visit [facility] Medical [facility] - Family Medicine - [place] [address] [place] [address] Juan Shrestha MD #[address] [address] documented as of this encounter Visit Diagnoses Diagnosis Spinal stenosis, lumbar region, with neurogenic claudication documented in this encounter Additional Health Concerns Infection Onset Date Last Indicated Resolved Time ESBL 08/16/2018 08/16/2018 09/28/2023 9:03 AM CDT COVID - 19 05/07/2023 05/07/2023 05/07/2023 9:50 AM CONCRETE MIXER OPERATOR HELPER COVID - 19 Confirmed 05/07/2023 05/07/2023 023 12:16 AM CONCRETE MIXER OPERATOR HELPER C. difficile Rule-Out 09/24/2023 09/24/20232023 3:41 PM CDT COVID - 19 09/24/2023 09/24/2023 09/24/2023 11:3 2 AM CDT C. difficile Rule-Out 09/27/2023 09/27/20232023 2:13 PM CDT COVID - 19 02/23/2024 02/23/2024 02/23/2024 11:2 8 AM CDT Respiratory Rule-Out 02/23/2024 02/23/2024 024 11:30 AM CDT Assessment Noted Time PHQ-9 Depression Total Score: 2 07/14/19 20 10:00 AM CONCRETE MIXER OPERATOR HELPER documented as of this encounter Care Teams Assistant Associate Professor Relationship Specialty Start Date End Date Josiane Pacheco MD [address] [place] [address] PCP - General Family Medicine 11/20/22 07/30/23 Darwin Marti MD [address] [place] [address] PCP - General Internal Medicine 07/31/23 Blair Paris MD 4 [facility] [address] [place] [address] Consulting Physician Orthopaedic Sports Medicine 07/31/23 Jose A Espinosa MD 2 [facility] [address] [place] [address] Consulting Physician Pain Medicine-Pain Management 07/31/23 02/08/24 Hao Silvestre MD [address] [address] Consulting Physician Neurological Surgery 07/31/23 Carlos Dailey MD [address] [address] Consulting Physician Colon and Rectal Surgery 10/26/23 Saida Mckeon APRN, INSPECTOR HEALTH CARE FACILITIES #2 [place] [address] Nurse Practitioner Gastroenterology 10/26/23 Jessenia Ward APRN, OUTREACH NURSE #[address] [place] [address] Nurse Practitioner Neurology 11/17/23 Hoa Silvestre MD [address] [address] Consulting Physician Neurological Surgery 02/09/2401/27 Dominic Wang MD [address] [address] Consulting Physician Pain Medicine-Pain Management 02/09/24 Butch Muñiz MD #2 [place] [address] Consulting Physician Neurology 02/23/24 documented as of this encounter
--- OUTSIDE RECORDS SUMMARY | 2024-12-29 08:03 | XMS_ITS | Encounter Summary ---
Author Organization [facility] Address [address] [place] [address] Phone Care Team Providers Care Warning Analyst Name Role Phone NaidaalisBlair guerrero MD Unavailable [phone] Darwin Marti MD Primary Care Provider [phone] Hao Silvestre MD Unavailable [phone] Carlos Dailey MD Unavailable Saida Mckeon APRN, BRANCH LENDING MANAGER Unavailable Jessenia Ward APRN, CEMENT FINISHER APPRENTICE Unavailable + [phone] Dominic Wang MD Unavailable [phone] Butch Muñiz MD Unavailable +[phone] Reason for Visit * Reason Onset Date Comments Cough 02/23/2024 Chest Congestion 02/23/2024 Encounter Details Date Type Department Care Team (Late st Contact Info) Description 02/23/2024 Nurse Triage [facility] [address] [place] [address] Darwin Marti MD [address] [place] [address] Cough; Chest Congestion Social History Tobacco Use Types Packs/Day Years Used Date Smoking Tobacco: Former Cigarettes 2 41.8 1 964 - 04/09/2005 Smokeless Tobacco: Never Alcohol Use Standard Drinks/Week Comments No 0 (1 standard drink = 0.6 oz pur e alcohol) [facility] Utilities Answer Date Recorded In [...] week 09/26/2023 How often do you attend [facility] ch or rastafari services? Never 09/26/2023 Do you belong to any clubs o r organizations such as scientology groups, unions, fraternal or athletic groups, or [...] Recorded PHQ-2 Score 2 07/14/2019 [facility] [place] of Occupat ional Health - Occupational Stress [...] encounter Miscellaneous Notes * Telephone Encounter - WaiNatalie mobley RN - 02/23/2024 8:10 AM CDT SITUATION: Cough, chest congestion, sore throat BACKGROUND: Patient tested negative for Covid on 02/19. Symptoms started on 02/16. Patient has history of asthma. ASSESSMENT: Symptoms: Cough, chest congestion - sore throat from coughing Just heavy chest., paitent state sthat it feels like breathing [...] Dept Phone 02/23/2024 9:15 AM Butch Muñiz [facility] - Neurology - [place] [phone] 02/23/2024 11:00 AM Darwin Marti [facility] - Primary Care - [place] [phone] Patient states that her medications and allergies [...] Description 02/20/2025 9:30 AM CDT Office Visit [facility] - Neurology [facility] #[address] [place] [address] Jessenia Ward APRN, CEMENT FINISHER APPRENTICE #[address] [place] [address] 03/09/2025 2:30 PM CDT [facility] - Family Medicine - [place] [address] [place] [address] Juan Shrestha MD #[address] [address] documented as of this encounter Visit Diagnoses Not on filedocumented in this encounter Additional Health Concerns Infection Onset Date Last Indicated Resolved Time COVID - 19 02/23/2024 02/23/2024 02/23/2024 11:2 8 AM CDT Respiratory Rule-Out 02/23/2024 02/23/2024 024 11:30 AM CDT Assessment Noted Time PHQ-9 Depression Total Score: 0 07/31/19 24 12:53 PM BRAND RECORDER documented as of this encounter Care Teams Warning Analyst Relationship Specialty Start Date End Date Darwin Marti MD [address] [place] [address] PCP - General Internal Medicine 07/31/23 Blair Paris MD [address] [place] [address] Consulting Physician Orthopaedic Sports Medicine 07/31/23 Hao Silvestre MD [facility] [address] [place] [address] Consulting Physician Neurological Surgery 07/31/23 Carlos Dailey MD #[address] [address] Consulting Physician Colon and Rectal Surgery 10/26/23 Saida Mckeon APRN, BRANCH LENDING MANAGER #[address] [place] [address] Nurse Practitioner Gastroenterology 10/26/23 Jessenia Ward APRN, CEMENT FINISHER APPRENTICE #[address] [place] [address] Nurse Practitioner Neurology 11/17/23 Dominic Wang MD [address] [address] Consulting Physician Pain Medicine-Pain Management 02/09/24 Butch Muñiz MD #[address] [place] [address] Consulting Physician Neurology 02/23/24 documented as of this encounter
--- OUTSIDE RECORDS SUMMARY | 2024-12-29 08:03 | XMS_ITS | Encounter Summary ---
Author Organization [facility] Address [address] [place] [address] Phone Care Team Providers Care Paranormal Investigator Name Role Phone Luann Cox MD Primary Care Provider + [phone] Josiane Pacheco MD Primary Care Provider + [phone] Blair Paris MD Unavailable [phone] Jose A Espinosa MD Unavailable [phone] Darwin Marti MD Primary Care Provider [phone] Hao Silvestre MD Unavailable [phone] Carlos Dailey MD Unavailable Saida Mckeon APRN, STRIPPER PRINTED CIRCUIT BOARDS Unavailable Jessenia Ward APRN, POLICY ADVISER Unavailable +- [phone] Hao Silvestre MD Unavailable [phone] Dominic Wang MD Unavailable [phone] Butch Muñiz MD Unavailable [phone] Reason for Visit * Reason Comments Medication Refill Encounter Details Date Type Department Care Team ([facility] Contact Info) Description 12/12/2021 Refill [facility] Primary Care [facility] [address] [place] [address] Luann Cox MD [address] [place] [address] Medication Refill Social History Tobacco [...] Upcoming Encounters Date Type Department Care Team ([facility] Contact Info) Description 02/20/2025 9:30 AM CDT Office Visit [facility] [place] [address] Jessenia Ward APRN, POLICY ADVISER [address] [place] [address] 03/09/2025 2:30 PM CDT Office Visit [facility] Medical [facility] - Family Medicine [facility] [address] [place] [address] Juan Shrestha MD [address] [address] documented as of this encounter Visit Diagnoses Diagnosis Essential hypertension Unspecified essential hypertension documented in this encounter Additional Health Concerns Infection Onset Date Last Indicated Resolved Time ESBL 08/16/2018 08/16/2018 09/28/2023 9:03 AM CDT COVID - 19 03/09/2023 03/09/2023 03/19/2023 12:1 6 AM CDT Respiratory Rule-Out 03/09/2023 03/09/2023 023 2:09 AM CDT COVID - 19 05/07/2023 05/07/2023 05/07/2023 9:50 AM FITTINGS FINISHER COVID - 19 Confirmed 05/07/2023 05/07/2023 023 12:16 AM FITTINGS FINISHER C. difficile Rule-Out 09/24/2023 09/24/20232023 3:41 PM CDT COVID - 19 09/24/2023 09/24/2023 09/24/2023 11:3 2 AM CDT C. difficile Rule-Out 09/27/2023 09/27/20232023 2:13 PM CDT COVID - 19 02/23/2024 02/23/2024 02/23/2024 11:2 8 AM CDT Respiratory Rule-Out 02/23/2024 02/23/2024 024 11:30 AM CDT Assessment Noted Time PHQ-9 Depression Total Score: 2 01/16/20 20 10:00 AM FITTINGS FINISHER documented as of this encounter Care Teams Paranormal Investigator Relationship Specialty Start Date End Date Luann Cox MD PCP - General Family Medicine 04/15/15 11/02/22 Josiane Pacheco MD [address] [place] [address] PCP - General Family Medicine 11/20/22 07/30/23 Darwin Marti MD [address] [place] [address] PCP - General Internal Medicine 07/31/23 Blair Paris MD 4 [facility] [address] [place] [address] Consulting Physician Orthopaedic Sports Medicine 07/31/23 Jose A Espinosa MD [address] [address] Consulting Physician Pain Medicine-Pain Management 07/31/23 02/08/24 Hao Silvestre MD [address] [address] Consulting Physician Neurological Surgery 07/31/23 Carlos Dailey MD #[address] [address] Consulting Physician Colon and Rectal Surgery 10/26/23 Saida Mckeon APRN, STRIPPER PRINTED CIRCUIT BOARDS #[address] [place] [address] Nurse Practitioner Gastroenterology 10/26/23 Jessenia Ward APRN, POLICY ADVISER #[address] [place] [address] Nurse Practitioner Neurology 11/17/23 Hao Silvestre MD [address] [address] Consulting Physician Neurological Surgery 02/09/2401/27 Dominic Wang MD [address] [address] Consulting Physician Pain Medicine-Pain Management 02/09/24 Butch Muñiz MD #[address] [place] [address] Consulting Physician Neurology 02/23/24 documented as of this encounter
--- OUTSIDE RECORDS SUMMARY | 2024-12-29 08:03 | XMS_ITS | Encounter Summary ---
Author Organization [facility] Address [address] [place] [address] Phone Care Team Providers Care Rewinder Operator Helper Name Role Phone Luann Cox MD Primary Care Provider + [phone] Josiane Pacheco MD Primary Care Provider + [phone] Blair Paris MD Unavailable [phone] Jose A Espinosa MD Unavailable [phone] Darwin Marti MD Primary Care Provider +[phone] Hao Silvestre MD Unavailable +[phone] Carlos Dailey MD Unavailable Saida Mckeon APRN, TABLE KEEPER Unavailable Jessenia Ward APRN, INFORMATION SECURITY OFFICER Unavailable + [phone] Hao Silvestre MD Unavailable +[phone] Dominic Wang MD Unavailable [phone] Butch Muñiz MD Unavailable [phone] Reason for Visit * Reason Comments Medication Refill Encounter Details Date Type Department Care Team (Late st Contact Info) Description 11/01/2021 Refill [facility] - Primary Care - [place] [address] [place] [address] Luann Cox MD [address] [place] [address] Medication Refill Social History Tobacco [...] Dept 06/27/21 Office Visit Luann Cox MD [facility] [employer] [facility] 03/07/21 Office Visit Luann Cox MD [facility] [employer] [facility] Showing recent visits within past 365 [...] Dept 06/27/21 Office Visit Luann Cox MD [facility] [employer] [facility] 03/07/21 Office Visit Luann Cox MD [facility] [employer] [facility] Showing recent visits within past 365 [...] Dept 06/27/21 Office Visit Luann Cox MD [facility] [employer] [facility] 03/07/21 Office Visit Luann Cox MD [facility] [employer] [facility] Showing recent visits within past 365 [...] Dept 06/27/21 Office Visit Luann Cox MD [facility] [employer] 03/07/21 Office Visit Luann Cox MD [facility] Showing recent visits within past 365 days [...] Dept 06/27/21 Office Visit Luann Cox MD [facility] [employer] [address] 03/07/21 Office Visit Luann Cox MD [facility] Showing recent visits within past 365 days [...] 02/20/2025 9:30 AM CDT Office Visit [facility] Medical [facility] - Neurology [facility] #[address] [place] [address] Jessenia Ward APRN, INFORMATION SECURITY OFFICER #[address] [place] [address] 03/09/2025 2:30 PM CDT Office Visit [facility] Medical [facility] - Family Medicine [facility] #[address] [place] [address] Juan Shrestha MD #[address] [address] documented as of this encounter Visit Diagnoses [...] 19 05/07/2023 05/07/2023 05/07/2023 9:50 AM TECHNICAL SOLUTIONS DIRECTOR COVID - 19 Confirmed 05/07/2023 05/07/2023 023 12:16 AM TECHNICAL SOLUTIONS DIRECTOR C. difficile Rule-Out 09/24/2023 09/24/20232023 3:41 PM CDT COVID - 19 09/24/2023 09/24/2023 09/24/2023 11:3 2 AM CDT C. difficile Rule-Out 09/27/2023 09/27/20232023 2:13 PM CDT COVID - 19 02/23/2024 02/23/2024 02/23/2024 11:2 8 AM CDT Respiratory Rule-Out 02/23/2024 02/23/2024 024 11:30 AM CDT Assessment Noted Time PHQ-9 Depression Total Score: 2 07/14/19 20 10:00 AM TECHNICAL SOLUTIONS DIRECTOR documented as of this encounter Care Teams Rewinder Operator Helper Relationship Specialty Start Date End Date Luann Cox MD PCP - General Family Medicine 04/15/15 11/02/22 Josiane Pacheco MD [address] [place] [address] PCP - General Family Medicine 11/20/22 07/30/23 Darwin Marti MD [address] [place] [address] PCP - General Internal Medicine 07/31/23 Blair Paris MD 4 [facility] [address] [place] [address] Consulting Physician Orthopaedic Sports Medicine 07/31/23 Jose A Espinosa MD 2 [facility] [address] [place] [address] Consulting Physician Pain Medicine-Pain Management 07/31/23 02/08/24 Hao Silvestre MD [address] [address] Consulting Physician Neurological Surgery 07/31/23 Carlos Dailey MD #[address] [address] Consulting Physician Colon and Rectal Surgery 10/26/23 Saida Mckeon APRN, TABLE KEEPER #[address] [place] [address] Nurse Practitioner Gastroenterology 10/26/23 Jessenia Ward, FINAL INSPECTOR, INFORMATION SECURITY OFFICER #[address] [place] [address] Nurse Practitioner Neurology 11/17/23 Hao Silvestre MD [address] [address] Consulting Physician Neurological Surgery 02/09/2401/27 Dominic Wang MD 6828 [facility] [address] [place] [address] Consulting Physician Pain Medicine-Pain Management 02/09/24 Butch Muñiz MD #[address] [place] [address] Consulting Physician Neurology 02/23/24 documented as of this encounter
--- OUTSIDE RECORDS SUMMARY | 2024-12-29 08:03 | XMS_ITS | Encounter Summary ---
Author Organization [facility] Address [address] [place] [address] Phone Care Team Providers Care Machine Operator Hay Stacker Name Role Phone Blair Paris MD Unavailable +[phone] Jose A Espinosa MD Unavailable [phone] Darwin Marti MD Primary Care Provider [phone] Hao Silvestre MD Unavailable [phone] Carlos Dailey MD Unavailable Saida Mckeon APRN, GUNSTOCK SPRAY UNIT FEEDER Unavailable Jessenia Ward APRN, [facility] Unavailable + [phone] Hao Silvestre MD Unavailable +[phone] Dominic Wang MD Unavailable [phone] Butch Muñiz MD Unavailable Reason for Visit * Reason Comments Medication Refill Encounter Details Date Type Department Care Team (Late Contact Info) Description 09/08/2023 Refill [facility] - Primary Care - [place] [address] [place] [address] Josiane Pacheco MD [address] [place] [address] Medication Refill Social History Tobacco Use Types [...] Description 02/20/2025 9:30 AM CDT Office Visit [facility] Neurology - [place] #2 [place] [address] Jessenia Ward APRN, CENTRAL MELT SPECIALIST #[address] [place] [address] 03/09/2025 2:30 PM CDT Office Visit [facility] - Family Medicine [facility] #2 [place] [address] Juan Shrestha MD #[address] [address] documented as of this encounter Visit Diagnoses [...] Depression Total Score: 0 07/31/19 12:53 PM HVAC SERVICE TECH documented as of this encounter Care Teams Machine Operator Hay Stacker Relationship Specialty Start Date End Date Darwin Marti MD [address] [place] [address] PCP - General Internal Medicine 07/31/23 Blair Paris MD 4 [facility] [address] [place] [address] Consulting Physician Orthopaedic Sports Medicine 07/31/23 Jose A Espinosa MD 2 [facility] [address] [place] [address] Consulting Physician Pain Medicine-Pain Management 07/31/23 02/08/24 Hao Silvestre MD [address] [place] [address] Consulting Physician Neurological Surgery 07/31/23 Carlos Dailey MD #[address] [address] Consulting Physician Colon and Rectal Surgery 10/26/23 Saida Mckeon APRN, GUNSTOCK SPRAY UNIT FEEDER #[address] [place] [address] Nurse Practitioner Gastroenterology 10/26/23 Jessenia Ward APRN, CENTRAL MELT SPECIALIST #[address] [place] [address] Nurse Practitioner Neurology 11/17/23 Hao Silvestre MD [address] [place] [address] Consulting Physician Neurological Surgery 02/09/2401/27 Dominic Wang MD [address] [address] Consulting Physician Pain Medicine-Pain Management 02/09/24 Butch Muñiz MD #2 [place] [address] Consulting Physician Neurology 02/23/24 documented as of this encounter
--- OUTSIDE RECORDS SUMMARY | 2024-12-29 08:03 | XMS_ITS | Encounter Summary ---
Author Organization [facility] Address [address] [place] [address] Phone Care Team Providers Care Boiler Installer Name Role Phone Luann Cox MD Primary Care Provider + [phone] Josiane Pacheco MD Primary Care Provider + [phone] Blair Paris MD Unavailable [phone] Jose A Espinosa MD Unavailable [phone] Darwin Marti MD Primary Care Provider [phone] Hao Silvestre MD Unavailable [phone] Carlos Dailey MD Unavailable Saida Mckeon APRN, SURGICAL INSTRUMENT TECHNICIAN Unavailable Jessenia Ward APRN, PARTITION MAKING MACHINE OPERATOR Unavailable +- [phone] Hao Silvestre MD Unavailable +[phone] Dominic Wang MD Unavailable [phone] Butch Muñiz MD Unavailable [phone] Reason for Visit * Reason Comments Medication Refill Encounter Details Date Type Department Care Team (Late st Contact Info) Description 03/01/2022 Refill [facility] - Primary Care - [place] [address] [place] [address] Luann Cox MD [address] [place] [address] Medication Refill Social History Tobacco [...] Dept 12/16/21 Office Visit Luann Cox MD [facility] [employer] 06/27/21 Office Visit Luann Cox MD [facility] [employer] 03/07/21 Office Visit Luann Cox MD [facility] [employer] Showing recent visits within past 365 days and meeting all other requirements Future Appointments Date Type Provider Dept 05/23/22 Appointment Salvador [facility] [email or web address] [facility] 05/29/22 Appointment Luann Cox MD [facility] [email or web address] [facility] Showing future appointments within next 90 [...] Dept 12/16/21 Office Visit Luann Cox MD [facility] [employer] 06/27/21 Office Visit Luann Cox MD [facility] [email or web address] [facility] 03/07/21 Office Visit Luann Cox MD [facility] [employer] Showing recent visits within past 365 days and meeting all other requirements Future Appointments Date Type Provider Dept 05/23/22 Appointment Lab, Salvador [facility] 05/29/22 Appointment Luann Cox MD [facility] Showing future appointments within next 90 days and meeting all other requirements documented in this encounter Plan of Treatment Upcoming Encounters Date Type Department Care Team (Late st Contact Info) Description 02/20/2025 9:30 AM CDT Office Visit [facility] - Neurology [facility] #2 [place] [address] Jessenia Ward APRN, PARTITION MAKING MACHINE OPERATOR #2 [place] [address] 03/09/2025 2:30 PM CDT Office Visit [facility] Family Medicine [facility] #2 [place] [address] Juan Shrestha MD #[address] [address] documented as of this encounter Visit Diagnoses Diagnosis Neuropathy Mononeuritis of unspecified site documented in this encounter Additional Health Concerns Infection Onset Date Last Indicated Resolved Time ESBL 08/16/2018 08/16/2018 09/28/2023 9:03 AM CDT COVID - 19 03/09/2023 03/09/2023 03/19/2023 12:1 6 AM CDT Respiratory Rule-Out 03/09/2023 03/09/2023 023 2:09 AM CDT COVID - 19 05/07/2023 05/07/2023 05/07/2023 9:50 AM MANAGER FRENCH COVID - 19 Confirmed 05/07/2023 05/07/2023 023 12:16 AM MANAGER FRENCH C. difficile Rule-Out 09/24/2023 09/24/20232023 3:41 PM CDT COVID - 19 09/24/2023 09/24/202309/2309/24/2023 11:3 2 AM CDT C. difficile Rule-Out 09/27/2023 09/27/20232023 2:13 PM CDT COVID - 19 02/23/2024 02/23/2024 02/23/2024 11:2 8 AM CDT Respiratory Rule-Out 02/23/2024 02/23/2024 024 11:30 AM CDT Assessment Noted Time PHQ-9 Depression Total Score: 2 07/14/19 20 10:00 AM MANAGER FRENCH documented as of this encounter Care Teams Boiler Installer Relationship Specialty Start Date End Date Luann Cox MD PCP - General Family Medicine 04/15/15 11/02/22 Josiane Pacheco MD [address] [place] [address] PCP - General Family Medicine 11/20/22 07/30/23 Darwin Marti MD [address] [place] [address] PCP - General Internal Medicine 07/31/23 Blair Paris MD 4 [facility] [address] [place] [address] Consulting Physician Orthopaedic Sports Medicine 07/31/23 Jose A Espinosa MD 2 [facility] [address] [place] [address] Consulting Physician Pain Medicine-Pain Management 07/31/23 02/08/24 Hao Silvestre MD [address] [id number] Consulting Physician Neurological Surgery 07/31/23 Carlos Dailey MD #[address] [address] Consulting Physician Colon and Rectal Surgery 10/26/23 Saida Mckeon APRN, SURGICAL INSTRUMENT TECHNICIAN #2 [place] [address] Nurse Practitioner Gastroenterology 10/26/23 Jessenia Ward APRN, PARTITION MAKING MACHINE OPERATOR #[address] [place] [address] Nurse Practitioner Neurology 11/17/23 Hao Silvestre MD [address] [facility] [address] [place] [address] Consulting Physician Neurological Surgery 02/09/2401/27 Dominic Wang MD [address] [address] Consulting Physician Pain Medicine-Pain Management 02/09/24 Butch Muñiz MD #2 [place] [address] Consulting Physician Neurology 02/23/24 documented as of this encounter
--- NOTE | 2024-12-29 08:45 | ECG_ITS ---
Test Date: 2024-12-29 08:59:32 Measurements Intervals Wedron Rate: 61 P: -16 NJ: 128 QRS: -71 QRSD: 84 T: 26 QT: 431 QTc: 437 Interpretive Statements SINUS RHYTHM MARKED LEFT AXIS DEVIATION [QRS AXIS < -30] PATTERN CONSISTENT WITH PULMONARY DISEASE MODERATE VOLTAGE CRITERIA FOR LVH, CONSIDER NORMAL VARIANT [MEETS CRITERIA IN ONE OF: R(aVL), S(V1), R(V5), R(V5/V6)+S(V1)] No previous ECG available for comparison Electronically Signed On 12-29-2024 16:49:55 CDT by Noah Joseph
[2024-12-29 09:17] LABS: Hematocrit 36.8 % (37.0-47.0); Hemoglobin 11.7 g/dL (12.0-15.0); Mean Corpuscular HGB Conc 31.8 g/dl (32-36); Mean Corpuscular Hemoglobin 30.2 pg (26-34); Mean Corpuscular Volume 94.8 fl (80-100); Platelet Count Result 186 k/mm3 (150-375); Red Blood Count 3.88 M/mm3 (4.2-5.4); White Blood Count 4.4 K/mm3 (4.5-10.0)
[2024-12-29 09:23] LABS: Add Urine Microscopic? YES; Appearance Urine Cloudy (Clear); Glucose Urine UA Negative (Negative); Leukocyte Esterase Ur 2+ LEU/UL (Negative); Nitrate Urine Positive (Negative); Non Pathogenic Casts 0-2; Specific Grav Ur 1.024 (1.001-1.035)
[2024-12-29 09:29] LABS: Anion Gap 6 mmol/L (4-12); Blood Urea Nitrogen 28 mg/dL (7-17); Calcium 9.3 mg/dL (8.4-10.2); Carbon Dioxide 29 mmol/L (22-30); Chloride 105 mmol/L (98-107); Estimated Glomerular Filt Rate > 60; Glucose 83 mg/dL (65-110); Potassium 4.5 mmol/L (3.4-5.0); Sodium 140 mmol/L (137-145)
[2024-12-29 09:36] LABS: INR 0.9; Prothrombin Time 12.3 Seconds (11.1-14.7)
[2024-12-29 09:37] LABS: Partial Thromboplastin Time 26.4 Seconds (22.3-36.8)
== END 2024-12-29 07:56 | disposition home or self-care (01) ==
LOC: ANHSURGERY 08:00
PROVIDERS: PCP Internal Medicine; Visit Provider Neurological Surgery
DX: Z01.818 Encounter for other preprocedural examination (principal); I44.4 Left anterior fascicular block; M48.061 Spinal stenosis, lumbar region without neurogenic claudication; R82.90 Unspecified abnormal findings in urine
CPT/HCPCS: 36415; 80048; 81001; 85027; 85610; 85730; 86850; 86900; 86901; 87077; 87086; 87186; 93005

== ENCOUNTER 2025-01-10 18:05 | Inpatient (IN) | payer MEDICARE, OTHER, SELFPAY ==
--- NOTE | 2024-12-29 07:53 | PC.NURSE ---
Report to the Outpatient Waiting Room, entrance under the green pavilion located off [facility], at time _10 AM on date __01/10/25 . Planned Procedure Time: __1200 NOON .? Time changes happen often and if your time is changed the preop area will call you the afternoon before. - You and your visitor will be asked to self-screen and do not enter if you have any COVID symptoms. Please call surgeon if you need to reschedule. - A mask is optional within the hospital at this time. Patients may have clear liquids (water, carbonated beverages, clear teas, apple juice) until 3 hours prior to surgery ( 9AM) with a maximum of 20 ounces. - No food from midnight until time of surgery and no smoking, or chewing tobacco (or any form of nicotine). No chewing gum, candy or mints. Take only the following medications with a SIP of water on the morning of surgery: LEVOTHYROXINE,GABAPENTIN_, SYMBICORT INHALER_, HYDROXYZINE DO NOT STOP ANY OF YOUR OTHER PRESCRIPTION MEDICATIONS PRIOR TO SURGERY EXCEPT THE FOLLOWING Hold all vitamins and supplements for 3 days per anesthesiologist.LAST DOSE 01/06/25 Medications to discontinue per physician __MELOXICAM AND PLAVIX HOLD 7 DAYS PRE OP PER DR OLIVAREZ Date to take last dose___01/02/25 Please no make-up, nail bulgarian, hairspray, perfume, deodorant, or body powder the day of surgery.? No jewelry (including any body piercings) or valuables the day of surgery, leave them at home.? Please take a shower or bath the night before, or the morning of, surgery with an antibacterial soap.? Wear comfortable, loose fitting clothing.? Children are encouraged to wear pajamas. - Jewelry must be removed prior to entering the operating room.? Rings and piercings that are not removed may be cut off. - The hospital will not accept responsibility for valuables.? - Please leave all valuables, including medications, at home the day of surgery. If you are going home after surgery, a licensed uke driver must drive you home.? - NO public transportation without another adult if you receive anesthesia. - We recommend that an adult stay with you for 24 hours following discharge. - We also recommend that you do not drive, make important decision, drink alcoholic beverages, or take any drugs that were not prescribed by your health care provider for at least 24 hours after your discharge time. For Pediatric surgeries, we recommend two adults accompany the child home. Follow any additional instructions given to you from your surgeon. VERBAL AND WRITTEN instructions given to __PATIENT and asked if any additional questions and then verbalized understanding. Patient advised to call surgeon office or pre surgery nurse liaison [phone] if any additional questions.
[2024-12-29 08:05] VITALS: BMI 29.5
[2024-12-29 08:47] VITALS: BP 124/77; PULSE 66; RESP 18; TEMP 37.3; O2SAT 99
[2025-01-10] VITALS (18 sets, daily range): BP systolic 109–156; BP diastolic 57–96; PULSE 65–85; RESP 11–20; TEMP 36–36.7; O2SAT 94–100
--- NOTE | ~2025-01-10 | XR_ITS ---
EXAMINATION: XR fluoroscopy no charge DATE: 01/10/2025 15:58 INDICATION: Left L3-L4 hemilaminectomy and L5-S1 lumbar fusion TECHNIQUE: 2 fluoroscopic images of the lower lumbar spine were obtained during procedure performed antoni Silvestre. Radiologist was not present for the imaging or procedure. The amount of fluoroscopy t dian used during this procedure was 0.1 minutes. Total DAP was 0.2797 Gycm^2. COMPARISON: None. FINDINGS: Initial image demonstrates soft tissue retractors, lap sponge projecting over the soft tissues distillation operator helper ior to the lower lumbar spine. The tip of a metallic probe projects over the posterior margin of the posterior elements of L5. 3 round metallic densities projecting over the sacrum consistent with sacro iliac screws which are on the left based on MRI dated 09/24/2024. Subsequent image demonstrates an L5- S1 discectomy with interbody fusion device for anterior spinal fusion as well as placement of bilater al vertical srinath and pedicle screws for fixation of an L5-S1 posterior spinal fusion. IMPRESSION: 1. Fluoroscopy utilized during instrumented L5-S1 anterior and posterior spinal fusion. See procedure note for further detail. Reviewed, dictated and finalized at location A.
--- OUTSIDE RECORDS SUMMARY | 2025-01-10 00:58 | XMS_ITS | Continuity of Care Document ---
Author Organization [facility] Address [address] [place] [address] Phone Care Team Providers Care Business Ethics Professor Name Role Phone Joao Mena OD Unavailable [...] Refraction After Cataract Laser Surgery Office/outpatient Visit, [facility] Advance Directives Directive Yes / No Effective Date File Name No Information Encounters Encounter Description Practice Location Reason(s) For Visit Diagnoses Date Provider Providers Copied on Encounter [facility] [employer] [facility], [address] [facility] [address], [place], [place], [id number], [place] tel:[phone] [facility] GODINEZ Professional Post-Op (chief complaint) Post op visit 9 Trina BURGOS Joao. [address] [facility], 6th Floor, [place], [address], [place]. tel:[phone] Referring Provider: Demetrio Pinzon OD, [employer] [address] [place] [address], [address]. tel:[phone] [facility], [address], [place], [place], [address], [place] tel:[phone] [employer] [place] Professional YAG PC (chief complaint) Post op visitOther secondary cataract, right eye 9 Maxwell Pearce. [address] [facility], [address], [place], [place], [address], [place]. tel:[phone] Referring Provider: Demetrio Pinzon OD, [employer] [address] [place] [address], [address]. tel:[phone] [facility]pa [facility] [employer] [place], [facility], [address], [place], [place], [address], [place] tel:[phone] [facility] [place] Professional YAG PC (chief complaint) Presence of intraocular lensOther secondary cataract, bilateralEndot helial corneal dystrophy 9 Maxwell Pearce. [address] [facility], [address], [place], [place], [address], [place]. tel:[phone] Referring Provider: Demetrio Pinzon OD, [employer] [address] [facility], [place], [address]. tel:[phone] Family History Family Member Type Diagnosis Age [...]
--- OUTSIDE RECORDS SUMMARY | 2025-01-10 00:59 | XMS_ITS | Encounter Summary ---
Author Organization [facility] Address [address] [place] [address] Phone Care Team Providers Care Meat Team Lead Name Role Phone Luann Cox MD Primary Care Provider + [phone] Josiane Pacheco MD Primary Care Provider + [phone] Blair Paris MD Unavailable [phone] Jose A Espinosa MD Unavailable [phone] Darwin Marti MD Primary Care Provider [phone] Hao Silvestre MD Unavailable +[phone] Carlos Dailey MD Unavailable Saida Mckeon APRN, LEAD WAREHOUSE ASSOCIATE Unavailable Jessenia Ward APRN, ROCKET PROPELLANT PLANT SUPERVISOR Unavailable + [phone] Hao Silvestre MD Unavailable +[phone] Dominic Wang MD Unavailable [phone] Butch Muñiz MD Unavailable [phone] Reason for Visit * Reason Comments Medication Refill Encounter Details Date Type Department Care Team (Late st Contact Info) Description 10/06/2020 Refill [facility] [address] [place] [address] Luann Cox MD [address] [place] [address] Medication Refill Social History Tobacco [...] COVID-19? No / Unsure 09/06/2020 11:36 AM TOTER documented as of this encounter Miscellaneous Notes [...] Spinal stenosis, lumbar region, with neurogenic claudication [facility] Luann Cox MD 2 months ago Uncomplicated asthma [facility] Luann Cox MD 9 months ago Essential hypertension [facility] Luann Cox MD 1 year ago Essential hypertension [facility] Luann Cox MD 1 year ago Essential hypertension [facility] Luann Cox MD Upcoming Appointments Future Appointments In 5 months Luann Cox MD [facility] - Recent and Past Visits Recent Visits Date Type Provider Dept 09/06/20 Office Visit Luann Cox MD [facility] 07/24/20 Office Visit Luann Cox MD [facility] 01/12/20 Office Visit Luann Cox MD [facility] 07/14/19 Office Visit Luann Cox MD [facility] Showing recent visits within past 460 [...] Spinal stenosis, lumbar region, with neurogenic claud[facility] MD 2 months ago Uncomplicated asthma [facility] Luann Cox MD 9 months ago Essential hypertension [facility] Luann Cox MD 1 year ago Essential hypertension [facility] Luann Cox MD 1 year ago Essential [facility] Upcoming Appointments Future Appointments In 5 months Luann Cox MD [facility] - Recent and Past Visits Recent Visits Date Type Provider Dept 09/06/20 Office Visit Luann Cox MD [facility] 07/24/20 Office Visit Luann Cox MD [facility] 01/12/20 Office Visit Luann Cox MD [facility] 07/14/19 Office Visit Luann Cox MD [facility] Showing recent visits within past 460 [...] AM CDT Office Visit [facility] Neurology [facility] #2 [place] [address] Jessenia Ward APRN, ROCKET PROPELLANT PLANT SUPERVISOR [address] [place] [address] 03/09/2025 2:30 PM CDT Office Visit [facility] #[address] [place] [address] Juan Shrestha MD #[address] [address] documented as of this encounter Visit Diagnoses Diagnosis Gastroesophageal reflux disease Esophageal reflux documented in this encounter Additional Health Concerns Infection Onset Date Last Indicated Resolved Time ESBL 08/16/2018 08/16/2018 09/28/2023 9:03 AM CDT COVID - 19 03/09/2023 03/09/2023 03/19/2023 12:1 6 AM CDT Respiratory Rule-Out 03/09/2023 03/09/2023 023 2:09 AM CDT COVID - 19 05/07/2023 05/07/2023 05/07/2023 9:50 AM TOTER COVID - 19 Confirmed 05/07/2023 05/07/2023 023 12:16 AM TOTER C. difficile Rule-Out 09/24/2023 09/24/20232023 3:41 PM CDT COVID - 19 09/24/2023 09/24/2023 09/24/2023 11:3 2 AM CDT C. difficile Rule-Out 09/27/2023 09/27/20232023 2:13 PM CDT COVID - 19 02/23/2024 02/23/2024 02/23/2024 11:2 8 AM CDT Respiratory Rule-Out 02/23/2024 02/23/2024 024 11:30 AM CDT Assessment Noted Time PHQ-9 Depression Total Score: 2 07/14/19 20 10:00 AM TOTER documented as of this encounter Care Teams Meat Team Lead Relationship Specialty Start Date End Date Luann Cox MD PCP - General Family Medicine 04/15/15 11/02/22 Josiane Pacheco MD [address] [place] [address] PCP - General Family Medicine 11/20/22 07/30/23 Darwin Marti MD [address] [place] [address] PCP - General Internal Medicine 07/31/23 Blair Paris MD 4 [facility] [address] [place] [address] Consulting Physician Orthopaedic Sports Medicine 07/31/23 Jose A Espinosa MD 2 [facility] [address] [place] [address] Consulting Physician Pain Medicine-Pain Management 07/31/23 02/08/24 Hao Silvestre MD [address] [address] Consulting Physician Neurological Surgery 07/31/23 Carlos Dailey MD #[address] [address] Consulting Physician Colon and Rectal Surgery 10/26/23 Saida Mckeon APRN, LEAD WAREHOUSE ASSOCIATE [address] [place] [address] Nurse Practitioner Gastroenterology 10/26/23 Jessenia Ward, PLASTER WHITTLER, ROCKET PROPELLANT PLANT SUPERVISOR [address] [place] [address] Nurse Practitioner Neurology 11/17/23 Hao Silvestre MD [address] [address] Consulting Physician Neurological Surgery 02/09/2401/27 Dominic Wang MD 6828 [facility] [address] [place] [address] Consulting Physician Pain Medicine-Pain Management 02/09/24 Butch Muñiz MD #2 [place] [address] Consulting Physician Neurology 02/23/24 documented as of this encounter
--- OUTSIDE RECORDS SUMMARY | 2025-01-10 00:59 | XMS_ITS | Encounter Summary ---
Author Organization [facility] Address [address] [place] [address] Phone Care Team Providers Care Building Performance Consultant Name Role Phone Blair Paris MD Unavailable [phone] Jose A Espinosa MD Unavailable [phone] Darwin Marti MD Primary Care Provider [phone] Hao Silvestre MD Unavailable [phone] Carlos Dailey MD Unavailable Saida Mckeon APRN, [employer] Unavailable Jessenia Ward APRN, [facility] Unavailable + [phone] Hao Silvestre MD Unavailable [phone] Dominic Wang MD Unavailable [phone] Butch Muñiz MD Unavailable [phone] Reason for Visit * Reason Comments Medication Refill Encounter Details Date Type Department Care Team (Late st Contact Info) Description 11/13/2023 Refill [facility] - Primary Care - [place] [address] [place] [address] Darwin Marti MD [address] [place] [address] Medication Refill Social History Tobacco Use Types Packs/Day Years Used Date Smoking Tobacco: Former Cigarettes 2 41.8 1 964 - 04/09/2005 Smokeless Tobacco: Never Alcohol Use Standard Drinks/Week Comments No 0 (1 standard drink = 0.6 oz pur e alcohol) [facility] Utilities Answer Date Recorded In the past 12 months has [employer], gas, oil, or water [employer] threatened to shut off services in your [...] often do you attend chur ch or anglican services? Never 09/26/2023 Do you belong to any clubs o r organizations such as catholic groups, unions, fraternal or athletic groups, or [...] Answer Date Recorded PHQ-2 Score 2 07/14/2019 [facility] - Occupational Stress Questionnaire Answer Date [...] Dept 10/14/23 Office Visit Darwin Marti MD [facility] 10/05/23 Office Visit Cassie Lara APRN, MARIO [facility] 07/31/23 Office Visit Darwin Marti MD [facility] 01/29/23 Office Visit Josiane Pacheco MD [facility] Showing recent visits within past 365 days and meeting all other requirements Future Appointments Date Type Provider Dept 02/09/24 Appointment Darwin Marti MD [facility] Showing future appointments within next 90 days and meeting all other requirements Passed - Normal TSH in past 12 months TSH Date Value Ref Range Status 07/31/2023 1.805 0.300 - 5.000 mIU/L Final documented in this encounter Plan of Treatment Upcoming Encounters Date Type Department Care Team (Late st Contact Info) Description 02/20/2025 9:30 AM CDT Office Visit [facility] - Neurology [facility] #2 [place] [address] Jessenia Ward APRN, ADVERTISING SALES ASSISTANT #[address] [place] [address] 03/09/2025 2:30 PM CDT Office Visit [facility] - Family [facility] #[address] [place] [address] Juan Shrestha MD #2 [facility] [address] [place] [address] documented as of this encounter Visit Diagnoses Diagnosis Hypothyroidism (acquired) Unspecified hypothyroidism documented in this encounter Additional Health Concerns Infection Onset Date Last Indicated Resolved Time COVID - 19 02/23/2024 02/23/2024 02/23/2024 11:2 8 AM CDT Respiratory Rule-Out 02/23/2024 02/23/2024 024 11:30 AM CDT Assessment Noted Time PHQ-9 Depression Total Score: 0 07/31/19 12:53 PM CORPORATE DEVELOPMENT INTERN documented as of this encounter Care Teams Building Performance Consultant Relationship Specialty Start Date End Date Darwin Marti MD [address] [place] [address] PCP - General Internal Medicine 07/31/23 Blair Paris MD 4 [facility] [address] [place] [address] Consulting Physician Orthopaedic Sports Medicine 07/31/23 Jose A Espinosa MD 2 [facility] [address] [place] [address] Consulting Physician Pain Medicine-Pain Management 07/31/23 02/08/24 Hao Silvestre MD [address] [address] Consulting Physician Neurological Surgery 07/31/23 Carlos Dailey MD #2 [facility] [address] [place] [address] Consulting Physician Colon and Rectal Surgery 10/26/23 Saida Mckeon APRN, [employer] #[address] [place] [address] Nurse Practitioner Gastroenterology 10/26/23 Jessenia Ward APRN, [facility] #[address] [place] [address] Nurse Practitioner Neurology 11/17/23 Hao Silvestre MD [address] [address] Consulting Physician Neurological Surgery 02/09/2401/27 Dominic Wang MD [address] [address] Consulting Physician Pain Medicine-Pain Management 02/09/24 Butch Muñiz MD #[address] [place] [address] Consulting Physician Neurology 02/23/24 documented as of this encounter
--- OUTSIDE RECORDS SUMMARY | 2025-01-10 00:59 | XMS_ITS | Encounter Summary ---
Author Organization [facility] Address [address] [place] [address] Phone Care Team Providers Care Loader Machine Name Role Phone Blair Paris MD Unavailable [phone] Jose A Espinosa MD Unavailable [phone] Darwin Marti MD Primary Care Provider [phone] Hao Silvestre MD Unavailable [phone] Carlos Dailey MD Unavailable Saida Mckeon APRN, COMPLIANCE SPECIALIST Unavailable Jessenia Ward APRN, [facility] Unavailable + [phone] Hao Silvestre MD Unavailable [phone] Dominic Wang MD Unavailable [phone] Butch Muñiz MD Unavailable [phone] Reason for Visit * Reason Comments Medication Refill Encounter Details Date Type Department Care Team (Late st Contact Info) Description 10/29/2023 Refill [facility] - Family [facility] #[address] [place] [address] Darwin Marti MD [address] [place] [address] Medication Refill Social History Tobacco Use Types Packs/Day Years Used Date Smoking Tobacco: Former Cigarettes 2 41.8 1 964 - 04/09/2005 Smokeless Tobacco: Never Alcohol Use Standard Drinks/Week Comments No 0 (1 standard drink = 0.6 oz pur e alcohol) [facility] Utilities Answer Date Recorded In the past 12 months has [employer], gas, oil, or water [employer] threatened to shut off services in your [...] often do you attend chur ch or church services? Never 09/26/2023 Do you belong to any clubs o r organizations such as gnosticist groups, unions, fraternal or athletic groups, or [...] Answer Date Recorded PHQ-2 Score 2 07/14/2019 [facility] - [...] place to sleep or slept in a senior care (including now)? No 09/26/2023 Sexually Active Control [...] Description 02/20/2025 9:30 AM CDT Office Visit [facility] - Neurology [facility] #2 [place] [address] Jessenia Ward, OPS ANALYST, YARN WEIGHER #[address] [place] [address] 03/09/2025 2:30 PM CDT Office Visit [facility] - Family Medicine [facility] #2 [place] [address] Juan Shrestha MD #[address] [address] documented as of this encounter Visit Diagnoses Not on filedocumented in this encounter Additional Health Concerns Infection Onset Date Last Indicated Resolved Time COVID - 19 02/23/2024 02/23/2024 02/23/2024 11:2 8 AM CDT Respiratory Rule-Out 02/23/2024 02/23/2024 024 11:30 AM CDT Assessment Noted Time PHQ-9 Depression Total Score: 0 07/31/19 24 12:53 PM KENO ATTENDANT documented as of this encounter Care Teams Loader Machine Relationship Specialty Start Date End Date Darwin Marti MD [address] [place] [address] PCP - General Internal Medicine 07/31/23 Blair Paris MD [address] [place] [address], [address] [place] [address] Consulting Physician Orthopaedic Sports Medicine 07/31/23 Jose A Espinosa MD 2 [facility] [address] [place] [address] Consulting Physician Pain Medicine-Pain Management 07/31/23 02/08/24 Hao Silvestre MD [address] [address] Consulting Physician Neurological Surgery 07/31/23 Carlos Dailey MD #[address] [address] Consulting Physician Colon and Rectal Surgery 10/26/23 Saida Mckeon APRN, COMPLIANCE SPECIALIST #[address] [place] [address] Nurse Practitioner Gastroenterology 10/26/23 Jessenia Ward APRN, YARN WEIGHER #[address] [place] [address] Nurse Practitioner Neurology 11/17/23 Hao Silvestre MD [address] [address] Consulting Physician Neurological Surgery 02/09/2401/27 Dominic Wang MD [address] [address] Consulting Physician Pain Medicine-Pain Management 02/09/24 Butch Muñiz MD #2 [place] [address] Consulting Physician Neurology 02/23/24 documented as of this encounter
--- OUTSIDE RECORDS SUMMARY | 2025-01-10 00:59 | XMS_ITS | Referral Summary ---
Author Organization [facility] Medical Office Building B Address [address] [place] [address] Care Team Providers Care Water Resource Consultant Name Role Phone Luann Cox MD Primary Care Provider [phone] Allergies Active Allergy Reactions Criticality Noted Date [...] Vomiting, Penicillins Other (See comments) Reaction: Unknown, [place] Sulfa (Sulfonamide Antibiotics) Other (See comments) Reaction: [...] in the evening 0 0 5 Active xmgbzymm-fure-p in-folic acid (multivitamin-i kcc-xwlgzzkx-ru lic acid) 3,500-18-0.4 unit-mg-mg tablet,chewable 0 0 [...] pain without sciatica 07/04/2022 Lumbar radiculopathy 07/04/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 use of 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 3 Insomnia secondary [...] on file Legal Sex Female 6:41 PM TRUCKING CONTRACTOR Gender Identity Not on file Sexual Orientation Not on file Last Filed Vital Signs Vital Sign Reading Time Taken Comments Blood Pressure 132/93 07/14/2024 11:06 AM TRUCKING CONTRACTOR Pulse 99 07/14/2024 11:06 AM TRUCKING CONTRACTOR Temperature 36.9 C (98.4 F) 06/30/2024 8:25 AM TRUCKING CONTRACTOR Respiratory Rate 0 06/30/2024 8:30 AM TRUCKING CONTRACTOR Oxygen Saturation 99% 06/30/2024 8:25 AM TRUCKING CONTRACTOR Inhaled Oxygen Concentration - - Weight 75.8 kg (167 lb) 07/14/2024 11:06 AM TRUCKING CONTRACTOR Height 162.6 cm (5' 4) 07/14/2024 11:06 AM TRUCKING CONTRACTOR Body Mass Index 28.67 07/14/2024 11:06 AM TRUCKING CONTRACTOR Plan of Treatment Not on file Procedures [...] PM CDT DEXA Bone Density Axial Acc#: [id number] DATE OF EXAM: Apr 23 2017 EXAM: [...] WYLIE Requesting Attending Fax: -- Attending ID: [id number] Requesting ID: [id number] Report To 1 ID: [id number] Report To 1 Name: JAY WYLIE Report To 1 FAX: -- NextGen Order #: [id number] Procedure Note Miscellaneous, Not In File - 04/23/2017 DEXA Bone Density Axial Acc#: [id number] DATE OF EXAM: Apr 23 2017 EXAM: [...] on: Apr 23 2017 3:34P Transcribed by: [facility] On: Apr 23 2017 4:05P Approved Electronically by: DIANELYS SOLORZANO M.D. on: Apr 23 2017 4:05P Ordering DR: JAY WYLIE Attending DR: JAY WYLIE Attending: JAY WYLIE Requesting: JAY WYLIE Requesting Attending Fax: -- Attending ID: [id number] Requesting ID: [id number] Report To 1 ID: [id number] Report To 1 Name: JAY WYLIE Report To 1 FAX: -- NextGen Order #: [id number] Jay Wylie MD IMG DXA PROCEDURES Final R esult from Last 3 Months or Most Recently Relevant to Health Maintenance Insurance [place] [address] MEDICARE [facility] [place] [place] [address] Care Teams Water Resource Consultant Relationship Specialty Start Date End Date Luann Cox MD PCP - General 05/08/09
--- OUTSIDE RECORDS SUMMARY | 2025-01-10 00:59 | XMS_ITS | Encounter Summary ---
Author Organization [facility] Address [address] [place] [address] Phone Care Team Providers Care Stripping Shovel Oiler Name Role Phone Luann Cox MD Primary Care Provider + [phone] Josiane Pacheco MD Primary Care Provider + [phone] Blair Paris MD Unavailable [phone] Jose A Espinosa MD Unavailable [phone] Darwin Marti MD Primary Care Provider [phone] Hao Silvestre MD Unavailable [phone] Carlos Dailey MD Unavailable Saida Mckeon APRN, FLOOR COVERING CONTRACTOR Unavailable Jessenia Ward APRN, ELEMENTARY SPECIAL EDUCATION TEACHER Unavailable [phone] Hao Silvestre MD Unavailable Dominic Wang MD Unavailable [phone] Butch Muñiz MD Unavailable Reason for Visit * Reason Comments Medication Refill Encounter Details Date Type Department Care Team (Late Contact Info) Description 11/11/2020 [facility]ill [facility] [address] [place] [address] Luann Cox MD [address] [place] [address] Medication Refill Social History Tobacco [...] Description 02/20/2025 9:30 AM CDT Office Visit [facility] Neurology [facility] [address] [place] [address] Jessenia Ward, TECHNOLOGY PROJECT MANAGER, ELEMENTARY SPECIAL EDUCATION TEACHER [address] [place] [address] 03/09/2025 2:30 PM CDT Office Visit [facility] Family Medicine - [place] [address] [place] [id number] Juan Shrestha MD #[address] [address] documented as of this encounter Visit Diagnoses Diagnosis Essential hypertension Unspecified essential hypertension documented in this encounter Additional Health Concerns Infection Onset Date Last Indicated Resolved Time ESBL 08/16/2018 08/16/2018 09/28/2023 9:03 AM CDT COVID - 19 03/09/2023 03/09/2023 03/19/2023 12:1 6 AM CDT Respiratory Rule-Out 03/09/2023 03/09/2023 023 2:09 AM CDT COVID - 19 05/07/2023 05/07/2023 05/07/2023 9:50 AM SILVICULTURIST COVID - 19 Confirmed 05/07/2023 05/07/2023 023 12:16 AM SILVICULTURIST C. difficile Rule-Out 09/24/2023 09/24/20232023 3:41 PM CDT COVID - 19 09/24/2023 09/24/2023 09/24/2023 11:3 2 AM CDT C. difficile Rule-Out 09/27/2023 09/27/20232023 2:13 PM CDT COVID - 19 02/23/2024 02/23/2024 02/23/2024 11:2 8 AM CDT Respiratory Rule-Out 02/23/2024 02/23/2024 024 11:30 AM CDT Assessment Noted Time PHQ-9 Depression Total Score: 2 07/14/19 20 10:00 AM SILVICULTURIST documented as of this encounter Care Teams Stripping Shovel Oiler Relationship Specialty Start Date End Date Luann Cox MD PCP - General Family Medicine 04/15/15 11/02/22 Josiane Pacheco MD [address] [place] [address] PCP - General Family Medicine 11/20/22 07/30/23 Darwin Marti MD [address] [place] [address] PCP - General Internal Medicine 07/31/23 Blair Paris MD 4 [facility] [address] [place] [address] Consulting Physician Orthopaedic Sports Medicine 07/31/23 Jose A Espinosa MD [address] [facility] [address] [place] [address] Consulting Physician Pain Medicine-Pain Management 07/31/23 02/08/24 Hao Silvestre MD [address] [place] [address] Consulting Physician Neurological Surgery 07/31/23 Carlos Dailey MD #[address] [address] Consulting Physician Colon and Rectal Surgery 10/26/23 Saida Mckeon APRN, FLOOR COVERING CONTRACTOR [address] [place] [address] Nurse Practitioner Gastroenterology 10/26/23 Jessenia Ward APRN, ELEMENTARY SPECIAL EDUCATION TEACHER [address] [place] [address] Nurse Practitioner Neurology 11/17/23 Hao Silvestre MD [address] [address] Consulting Physician Neurological Surgery 02/09/2401/27 Dominic Wang MD [address] [address] Consulting Physician Pain Medicine-Pain Management 02/09/24 Butch Muñiz MD [address] [place] [address] Consulting Physician Neurology 02/23/24 documented as of this encounter
--- OUTSIDE RECORDS SUMMARY | 2025-01-10 00:59 | XMS_ITS | Encounter Summary ---
Author Organization [facility] Address [address] [place] [address] Phone Care Team Providers Care Mixer Wet Pour Name Role Phone Luann Cox MD Primary Care Provider + [phone] Josiane Pacheco MD Primary Care Provider + [phone] Blair Paris MD Unavailable [phone] Jose A Espinosa MD Unavailable [phone] Darwin Marti MD Primary Care Provider [phone] Hao Silvestre MD Unavailable [phone] Carlos Dailey MD Unavailable Saida Mckeon APRN, SOFTWARE MANAGER Unavailable Jessenia Ward APRN, BUSINESS CONTINUITY SPECIALIST Unavailable + [phone] Hao Silvestre MD Unavailable [phone] Dominic Wang MD Unavailable [phone] Butch Muñiz MD Unavailable [phone] Reason for Visit * Reason Comments Medication Refill Encounter Details Date Type Department Care Team (Late st Contact Info) Description 04/27/2021 [facility] [place] [address] [place] [address] Luann Cox MD [address] [place] [address] Medication Refill Social History Tobacco [...] Miscellaneous Notes * Telephone Encounter - Racquel Campso RN - 04/29/2021 12:16 PM CDT Medication [...] Dept 03/07/21 Office Visit Luann Cox MD [facility] 09/06/20 Office Visit [facility] MD [facility] [address] 07/24/20 Office Visit Luann Cox MD [facility] [employer] Showing recent visits within past 365 days and meeting all other requirements Future Appointments Date Type Provider Dept 06/13/21 Appointment Luann Cox MD [facility] [employer] Showing future appointments within next 90 days [...] Dept 03/07/21 Office Visit Luann Cox MD [facility] [address] 09/06/20 Office Visit Luann Cox MD [facility] [address] 07/24/20 Office Visit Luann Cox MD [facility] [employer] Showing recent visits within past 365 days and meeting all other requirements Future Appointments Date Type Provider Dept 06/13/21 Appointment Luann Cox MD [facility] [employer] Showing future appointments within next 90 days and meeting all other requirements documented in this encounter Plan of Treatment Upcoming Encounters Date Type Department Care Team (Late st Contact Info) Description 02/20/2025 9:30 AM CDT Office Visit [facility] - Neurology - [place] [address] [place] [address] Jessenia [place] APRN, BUSINESS CONTINUITY SPECIALIST [address] [place] [address] 03/09/2025 2:30 PM CDT Office Visit [facility] Family Medicine - [place] [address] [place] [address] Juan Shrestha MD #[address] [address] documented as of this encounter Visit Diagnoses Diagnosis Hyperlipidemia, unspecified hyperlipidemia type documented in this encounter Additional Health Concerns Infection Onset Date Last Indicated Resolved Time ESBL 08/16/2018 08/16/2018 09/28/2023 9:03 AM CDT COVID - 19 03/09/2023 03/09/2023 03/19/2023 12:1 6 AM CDT Respiratory Rule-Out 03/09/2023 03/09/2023 023 2:09 AM CDT COVID - 19 05/07/2023 05/07/2023 05/07/2023 9:50 AM DIAMOND SIZER AND SORTER COVID - 19 Confirmed 05/07/2023 05/07/2023 023 12:16 AM DIAMOND SIZER AND SORTER C. difficile Rule-Out 09/24/2023 09/24/20232023 3:41 PM CDT COVID - 19 09/24/2023 09/24/2023 09/24/2023 11:3 2 AM CDT C. difficile Rule-Out 09/27/2023 09/27/20232023 2:13 PM CDT COVID - 19 02/23/2024 02/23/2024 02/23/2024 11:2 8 AM CDT Respiratory Rule-Out 02/23/2024 02/23/2024 024 11:30 AM CDT Assessment Noted Time PHQ-9 Depression Total Score: 2 07/14/19 20 10:00 AM DIAMOND SIZER AND SORTER documented as of this encounter Care Teams Mixer Wet Pour Relationship Specialty Start Date End Date Luann Cox MD PCP - General Family Medicine 04/15/15 11/02/22 Josiane Pacheco MD [address] [place] [address] PCP - General Family Medicine 11/20/22 07/30/23 Darwin Marti MD [address] [place] [address] PCP - General Internal Medicine 07/31/23 Blair Paris MD 4 [facility] [address] [place] [address] Consulting Physician Orthopaedic Sports Medicine 07/31/23 Jose A Espinosa MD 2 [facility] [address] [place] [address] Consulting Physician Pain Medicine-Pain Management 07/31/23 02/08/24 Hao Silvestre MD [address] [address] Consulting Physician Neurological Surgery 07/31/23 Carlos Dailey MD #2 [facility] [address] [place] [address] Consulting Physician Colon and Rectal Surgery 10/26/23 Saida Mckeon APRN, SOFTWARE MANAGER [address] [place] [address] Nurse Practitioner Gastroenterology 10/26/23 Jessenia [place] APRN, BUSINESS CONTINUITY SPECIALIST [address] [place] [address] Nurse Practitioner Neurology 11/17/23 Hao Silvestre MD [address] [facility] [address] [place] [address] Consulting Physician Neurological Surgery 02/09/2401/27 Dominic Wang MD [address] [facility] [address] [place] [address] Consulting Physician Pain Medicine-Pain Management 02/09/24 Butch Muñiz MD [address] [place] [address] Consulting Physician Neurology 02/23/24 documented as of this encounter
--- OUTSIDE RECORDS SUMMARY | 2025-01-10 00:59 | XMS_ITS | Clinical Summary ---
Author Organization [facility] Medical Office Building B Address [address] [place] [address] Care Team Providers Care Manager Client Service Name Role Phone Luann Cox MD Primary Care Provider [phone] Allergies Active Allergy Reactions Criticality Noted Date [...] Vomiting, Penicillins Other (See comments) Reaction: Unknown, [place] Sulfa (Sulfonamide Antibiotics) Other (See comments) Reaction: [...] in the evening 0 0 5 Active tgulwrwt-eoey-l in-folic acid (multivitamin-i tlo-bsjhmrgi-bf lic acid) 3,500-18-0.4 unit-mg-mg tablet,chewable 0 0 [...] pain without sciatica 07/04/2022 Lumbar radiculopathy 07/04/2022 terminal gauger supervisor current use of 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 3 Insomnia secondary [...] Other Medical Hysterectomy 30 years ago.; Comments: [facility] 02/20/2015 - Hx Other Medical Breast tumors 2 8 years ago.; Comments: [facility] 02/20/2015 - Hx Other Medical Right knee A&A 03-07-15.; Comments: [facility] 03/20/2015 - Hx Other Medical Right total kne e replacement 06-27-15.; Comments: [facility] 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 MVP [...] on file Legal Sex Female 6:41 PM STAKEHOLDER MANAGER Gender Identity Not on file Sexual Orientation Not on file Obstetrics History Last Filed Vital Signs Vital Sign Reading Time Taken Comments Blood Pressure 132/93 07/14/2024 11:06 AM STAKEHOLDER MANAGER Pulse 99 07/14/2024 11:06 AM STAKEHOLDER MANAGER Temperature 36.9 C (98.4 F) 06/30/2024 8:25 AM STAKEHOLDER MANAGER Respiratory Rate 0 06/30/2024 8:30 AM STAKEHOLDER MANAGER Oxygen Saturation 99% 06/30/2024 8:25 AM STAKEHOLDER MANAGER Inhaled Oxygen Concentration - - Weight 75.8 kg (167 lb) 07/14/2024 11:06 AM STAKEHOLDER MANAGER Height 162.6 cm (5' 4) 07/14/2024 11:06 AM STAKEHOLDER MANAGER Body Mass Index 28.67 07/14/2024 11:06 AM STAKEHOLDER MANAGER Plan of Treatment Health Maintenance Due Date [...] PM CDT DEXA Bone Density Axial Acc#: [id number] DATE OF EXAM: Apr 23 2017 EXAM: [...] WYLIE Requesting Attending Fax: -- Attending ID: [id number] Requesting ID: [id number] Report To 1 ID: [id number] Report To 1 Name: JAY WYLIE Report To 1 FAX: -- NextGen Order #: [id number] Procedure Note Miscellaneous, Not In File - 04/23/2017 DEXA Bone Density Axial Acc#: [id number] DATE OF EXAM: Apr 23 2017 EXAM: [...] WYLIE Requesting Attending Fax: -- Attending ID: [id number] Requesting ID: [id number] Report To 1 ID: [id number] Report To 1 Name: JAY WYLIE Report To 1 FAX: -- NextGen Order #: [id number] Jay Wylie MD IMG DXA PROCEDURES Final R esult from Last 3 Months or Most Recently Relevant to Health Maintenance Insurance MEDICARE [facility] [place] [address] MEDICARE [facility] [place] [place] [address] Care Teams Manager Client Service Relationship Specialty Start Date End Date Luann Cox MD PCP - General 05/08/09
--- OUTSIDE RECORDS SUMMARY | 2025-01-10 00:59 | XMS_ITS | Encounter Summary ---
Author Organization [facility] Address [address] [place] [address] Phone Care Team Providers Care Employment Attorney Name Role Phone NaidaalisBlair guerrero MD Unavailable [phone] Darwin Marti MD Primary Care Provider [phone] Hao Silvestre MD Unavailable [phone] Carlos Dailey MD Unavailable Saida Mckeon APRN, APPRENTICESHIP CONSULTANT Unavailable Jessenia [place] APRN, TRANSITION SPECIALIST Unavailable + [phone] Dominic Wang MD Unavailable [phone] Butch Muñiz MD Unavailable [phone] Reason for Visit * Reason Onset Date Comments Cough 02/23/2024 Chest Congestion 02/23/2024 Encounter Details Date Type Department Care Team (Late st Contact Info) Description 02/23/2024 Nurse Triage [facility] Call Center [address] [place] [address] Darwin Marti MD [address] [place] [address] Cough; Chest Congestion Social History Tobacco Use Types Packs/Day Years Used Date Smoking Tobacco: Former Cigarettes 2 41.8 1 964 - 04/09/2005 Smokeless Tobacco: Never Alcohol Use Standard Drinks/Week Comments No 0 (1 standard drink = 0.6 oz pur e alcohol) [facility] Utilities Answer Date Recorded In the [...] week 09/26/2023 How often do you attend [facility] ch or adventist services? Never 09/26/2023 Do you belong to any clubs o r organizations such as spiritism groups, unions, fraternal or athletic groups, or [...] Answer Date Recorded PHQ-2 Score 2 07/14/2019 [facility] [place] of Occupat ional Health - Occupational Stress [...] Dept Phone 02/23/2024 9:15 AM Butch Muñiz [facility] - Neurology - [place] [phone] 02/23/2024 11:00 AM Darwin Marti [facility] - Primary Care - [place] [phone] Patient states that her medications and allergies [...] [facility] - Neurology [facility] [address] [place] [address] Jessenia [place] APRN, TRANSITION SPECIALIST [address] [place] [address] 03/09/2025 2:30 PM CDT Office Visit [facility] Medical [facility] - Family Medicine - [place] [address] [place] [address] Juan Shrestha MD #[address] [address] documented as of this encounter Visit Diagnoses Not on filedocumented in this encounter Additional Health Concerns Infection Onset Date Last Indicated Resolved Time COVID - 19 02/23/2024 02/23/2024 02/23/2024 11:2 8 AM CDT Respiratory Rule-Out 02/23/2024 02/23/2024 024 11:30 AM CDT Assessment Noted Time PHQ-9 Depression Total Score: 0 07/31/19 24 12:53 PM CRISIS MANAGER documented as of this encounter Care Teams Employment Attorney Relationship Specialty Start Date End Date Darwin Marti MD [address] [place] [address] PCP - General Internal Medicine 07/31/23 Blair [place] MD [address] [place] [address] Consulting Physician Orthopaedic Sports Medicine 07/31/23 Hao Silvestre MD [facility] [address] [place] [address] Consulting Physician Neurological Surgery 07/31/23 Carlos Dailey MD #[address] [address] Consulting Physician Colon and Rectal Surgery 10/26/23 Saida Mckeon APRN, APPRENTICESHIP CONSULTANT [address] [place] [address] Nurse Practitioner Gastroenterology 10/26/23 Jessenia [place] APRN, TRANSITION SPECIALIST [address] [place] [address] Nurse Practitioner Neurology 11/17/23 Dominic Wang MD [address] [address] Consulting Physician Pain Medicine-Pain Management 02/09/24 Butch Muñiz MD [address] [place] [address] Consulting Physician Neurology 02/23/24 documented as of this encounter
--- OUTSIDE RECORDS SUMMARY | 2025-01-10 00:59 | XMS_ITS | Encounter Summary ---
Author Organization [facility] Address [address] [place] [address] Phone Care Team Providers Care Care Nurse Rn Name Role Phone Josiane Pacheco MD Primary Care Provider [phone] Blair [place] MD Unavailable [phone] Jose A Espinosa MD Unavailable [phone] Darwin Marti MD Primary Care Provider [phone] Hao Silvestre MD Unavailable [phone] Carlos Dailey MD Unavailable Saida Mckeon APRN, BULK PLANT AGENT Unavailable Jessenia Ward APRN, GERICARE AIDE Unavailable + [phone] Hao Silvestre MD Unavailable Dominic Wang MD Unavailable [phone] Butch Muñiz MD Unavailable Reason for Visit * Reason Comments Medication Refill Encounter Details Date Type Department Care Team ([facility] Contact Info) Description 03/31/[address] [facility] - Primary Care - [place] [address] [place] [address] Josiane Pacheco MD [address] [place] [address] Medication Refill Social History Tobacco Use Types [...] Upcoming Encounters Date Type Department Care Team ([facility] Contact Info) Description 02/20/2025 9:30 AM CDT Office Visit [facility] Neurology [facility] [address] [place] [address] Jessenia [place] APRN, GERICARE AIDE [address] [place] [address] 03/09/2025 2:30 PM CDT Office Visit [facility] Medical [facility] - Family Medicine - [place] [address] [place] [address] Juan Shrestha MD #[address] [address] documented as of this encounter Visit Diagnoses Diagnosis Spinal stenosis, lumbar region, with neurogenic claudication documented in this encounter Additional Health Concerns Infection Onset Date Last Indicated Resolved Time ESBL 08/16/2018 08/16/2018 09/28/2023 9:03 AM CDT COVID - 19 05/07/2023 05/07/2023 05/07/2023 9:50 AM PHYS ASSISTANT COVID - 19 Confirmed 05/07/2023 05/07/2023 023 12:16 AM PHYS ASSISTANT C. difficile Rule-Out 09/24/2023 09/24/20232023 3:41 PM CDT COVID - 19 09/24/2023 09/24/2023 09/24/2023 11:3 2 AM CDT C. difficile Rule-Out 09/27/2023 09/27/20232023 2:13 PM CDT COVID - 19 02/23/2024 02/23/2024 02/23/2024 11:2 8 AM CDT Respiratory Rule-Out 02/23/2024 02/23/2024 024 11:30 AM CDT Assessment Noted Time PHQ-9 Depression Total Score: 2 07/14/19 20 10:00 AM PHYS ASSISTANT documented as of this encounter Care Teams Care Nurse Rn Relationship Specialty Start Date End Date Josiane Pacheco MD [address] [place] [address] PCP - General Family Medicine 11/20/22 07/30/23 Darwin Marti MD [address] [place] [address] PCP - General Internal Medicine 07/31/23 Blair Paris MD 4 [facility] [address] [place] [address] Consulting Physician Orthopaedic Sports Medicine 07/31/23 Jose A Espinosa MD 2 [facility] [address] [place] [address] Consulting Physician Pain Medicine-Pain Management 07/31/23 02/08/24 Hao Silvestre MD [address] [address] Consulting Physician Neurological Surgery 07/31/23 Carlos Dailey MD [address] [address] Consulting Physician Colon and Rectal Surgery 10/26/23 Saida Mckeon APRN, BULK PLANT AGENT [address] [place] [address] Nurse Practitioner Gastroenterology 10/26/23 Jessenia [place] APRN, GERICARE AIDE [address] [place] [address] Nurse Practitioner Neurology 11/17/23 Hao Silvestre MD [address] [address] Consulting Physician Neurological Surgery 02/09/2401/27 Dominic Wang MD [address] [address] Consulting Physician Pain Medicine-Pain Management 02/09/24 Butch Muñiz MD #[address] [place] [address] Consulting Physician Neurology 02/23/24 documented as of this encounter
--- OUTSIDE RECORDS SUMMARY | 2025-01-10 00:59 | XMS_ITS | Encounter Summary ---
Author Organization [facility] Address [address] [place] [address] Phone Care Team Providers Care Certified Flight Instructor Name Role Phone Luann Cox MD Primary Care Provider + [phone] Josiane Pacheco MD Primary Care Provider + [phone] Blair Paris MD Unavailable [phone] Jose A Espinosa MD Unavailable +[phone] Darwin Marti MD Primary Care Provider +[phone] Hao Silvestre MD Unavailable +[phone] Carlos Dailey MD Unavailable Saida Mckeon APRN, CRYSTAL SYRUP MAKER Unavailable Jessenia Ward APRN, CORE BLOWER OPERATOR Unavailable + [phone] Hao Silvestre MD Unavailable +[phone] Dominic Wang MD Unavailable [phone] Butch Muñiz MD Unavailable +[phone] Reason for Visit * Reason Comments Medication Refill Encounter Details Date Type Department Care Team (Late st Contact Info) Description 07/26/[address] [facility] - Primary Care - [place] [address] [place] [phone] Luann Cox MD [address] [place] [address] Medication Refill Social History Tobacco [...] COVID-19? No / Unsure 07/01/2021 11:16 AM PRODUCT DEVELOPMENT MANAGER documented as of this encounter Miscellaneous Notes * Telephone Encounter - Racquel Campos RN - 07/26/2021 9:30 AM PRODUCT DEVELOPMENT MANAGER Medication failed the protocol, provider to review [...] Dept 06/27/21 Office Visit Luann Cox MD [facility] [address] 03/07/21 Office Visit Luann Cox [facility] [address] 09/06/20 Office Visit Luann Cox MD [facility] Showing recent visits within past 365 days and meeting all other requirements Future Appointments Date Type Provider Dept 10/21/21 [facility] Showing future appointments [...] Dept 06/27/21 Office Visit Luann Cox [facility] [address] 03/07/21 Office Visit Luann Cox MD [facility] [address] 09/06/20 Office Visit Luann Cox MD [facility] Showing recent visits within past 365 days and meeting all other requirements Future Appointments Date Type Provider Dept 10/21/21 [facility] Showing future appointments [...] Dept 06/27/21 Office Visit Luann Cox MD [facility] 03/07/21 Office Visit Luann Cox [facility] [place] [facility] 09/06/20 Office Visit Luann Cox MD [facility] Showing recent visits within past 365 days and meeting all other requirements Future Appointments Date Type Provider Dept 10/21/21 Appointment Lab, [facility] Showing future appointments [...] Dept 06/27/21 Office Visit Luann Cox MD [facility] 03/07/21 Office Visit Luann Cox MD [facility] 09/06/20 Office Visit Luann Cox MD [facility] [place] [facility] Showing recent visits within past 365 days and meeting all other requirements Future Appointments Date Type Provider Dept 10/21/21 [facility] [place] [facility] Showing future appointments within next 90 days and meeting all other requirements UCT DEVELOPMENT MANAGER documented in this encounter Plan of Treatment Upcoming Encounters Date Type Department Care Team (Late st Contact Info) Description 02/20/2025 9:30 AM CDT [facility] - Neurology [facility] [address] [place] [address] Jessenia Ward APRN, CORE BLOWER OPERATOR [address] [place] [address] 03/09/2025 2:30 PM CDT Office Visit [facility] - Family Medicine - [place] [address] [place] [address] Juan Shrestha MD #[address] [address] documented as of this encounter Visit Diagnoses [...] - 19 05/07/2023 05/07/2023 05/07/2023 9:50 AM PRODUCT DEVELOPMENT MANAGER COVID - 19 Confirmed 05/07/2023 05/07/2023 023 12:16 AM PRODUCT DEVELOPMENT MANAGER C. difficile Rule-Out 09/24/2023 09/24/20232023 3:41 PM CDT COVID - 19 09/24/2023 09/24/2023 09/24/2023 11:3 2 AM CDT C. difficile Rule-Out 09/27/2023 09/27/20232023 2:13 PM CDT COVID - 19 02/23/2024 02/23/2024 02/23/2024 11:2 8 AM CDT Respiratory Rule-Out 02/23/2024 02/23/2024 024 11:30 AM CDT Assessment Noted Time PHQ-9 Depression Total Score: 2 07/14/19 20 10:00 AM PRODUCT DEVELOPMENT MANAGER documented as of this encounter Care Teams Certified Flight Instructor Relationship Specialty Start Date End Date Luann Cox MD PCP - General Family Medicine 04/15/15 11/02/22 Josiane Pacheco MD [address] [place] [address] PCP - General Family Medicine 11/20/22 07/30/23 Darwin Marti MD [address] [place] [address] PCP - General Internal Medicine 07/31/23 Blair Paris MD 4 [facility] [address] [place] [address] Consulting Physician Orthopaedic Sports Medicine 07/31/23 Jose A Espinosa MD 2 [facility] [address] [place] [address] Consulting Physician Pain Medicine-Pain Management 07/31/23 02/08/24 Hao Silvestre MD [address] [address] Consulting Physician Neurological Surgery 07/31/23 Carlos Dailey MD #2 [facility] [address] [place] [address] Consulting Physician Colon and Rectal Surgery 10/26/23 Saida Mckeon APRN, CRYSTAL SYRUP MAKER [address] [place] [address] Nurse Practitioner Gastroenterology 10/26/23 Jessenia Ward APRN, CORE BLOWER OPERATOR [address] [place] [address] Nurse Practitioner Neurology 11/17/23 [place] [address] [place] [address] [place] [address] Consulting Physician Neurological Surgery 02/09/2401/27 Dominic Wang MD [address] [address] Consulting Physician Pain Medicine-Pain Management 02/09/24 Butch Muñiz MD #2 [place] [address] Consulting Physician Neurology 02/23/24 documented as of this encounter
--- OUTSIDE RECORDS SUMMARY | 2025-01-10 00:59 | XMS_ITS | Encounter Summary ---
Author Organization [facility] Address [address] [place] [address] Phone Care Team Providers Care Feed Grinder Name Role Phone Luann Cox MD Primary Care Provider + [phone] Josiane Pacheco MD Primary Care Provider + [phone] Blair Paris MD Unavailable [phone] Jose A Espinosa MD Unavailable [phone] Darwin Marti MD Primary Care Provider +[phone] Hao Silvestre MD Unavailable [phone] Carlos Dailey MD Unavailable Saida Mckeon APRN, INSURANCE BILLING SPECIALIST Unavailable Jessenia Ward APRN, EDGING MACHINE CATCHER Unavailable [phone] Hao Silvestre MD Unavailable Dominic Wang MD Unavailable [phone] Butch Muñiz MD Unavailable +[phone] Reason for Visit * Reason Comments Medication Refill Encounter Details Date Type Department Care Team (Late Contact Info) Description 10/27/2020 [facility] [address] [place] [phone] Luann Cox MD [address] [place] [address] Medication Refill Social History Tobacco [...] Description 02/20/2025 9:30 AM CDT Office Visit [facility] #2 [place] [id number] Jessenia Ward, AUDIO TECHNICIAN, EDGING MACHINE CATCHER [address]2 [place] [address] 03/09/2025 2:30 PM CDT Office Visit [facility] - [place] [address]2 [place] [phone] Juan Shrestha MD #[address] [address] documented as of this encounter Visit Diagnoses [...] - 19 05/07/2023 05/07/2023 05/07/2023 9:50 AM RN DIABETES EDUCATOR COVID - 19 Confirmed 05/07/2023 05/07/2023 023 12:16 AM RN DIABETES EDUCATOR C. difficile Rule-Out 09/24/2023 09/24/20232023 3:41 PM CDT COVID - 19 09/24/2023 09/24/2023 09/24/2023 11:3 2 AM CDT C. difficile Rule-Out 09/27/2023 09/27/20232023 2:13 PM CDT COVID - 19 02/23/2024 02/23/2024 02/23/2024 11:2 8 AM CDT Respiratory Rule-Out 02/23/2024 02/23/2024 024 11:30 AM CDT Assessment Noted Time PHQ-9 Depression Total Score: 2 07/14/19 20 10:00 AM RN DIABETES EDUCATOR documented as of this encounter Care Teams Feed Grinder Relationship Specialty Start Date End Date Luann Cox MD PCP - General Family Medicine 04/15/15 11/02/22 Jsoiane Pacheco MD [address] [place] [address] PCP - General Family Medicine 11/20/22 07/30/23 Darwin Marti MD [address] [place] [address] PCP - General Internal Medicine 07/31/23 Blair Paris MD 4 [facility] 130 [place] [address] Consulting Physician Orthopaedic Sports Medicine 07/31/23 Jose A Espinosa MD 2 [facility] [address] [place] [address] Consulting Physician Pain Medicine-Pain Management 07/31/23 02/08/24 Hao Silvestre MD [address] [address] Consulting Physician Neurological Surgery 07/31/23 Carlos Dailey MD #[address] [address] Consulting Physician Colon and Rectal Surgery 10/26/23 Saida Mckeon APRN, INSURANCE BILLING SPECIALIST [address] [place] [address] Nurse Practitioner Gastroenterology 10/26/23 Jessenia Ward APRN, EDGING MACHINE CATCHER [address] [place] [address] Nurse Practitioner Neurology 11/17/23 Hao Silvestre MD [address] [address] Consulting Physician Neurological Surgery 02/09/2401/27 Dominic Wang MD [address] [address] Consulting Physician Pain Medicine-Pain Management 02/09/24 Butch Muñiz MD #2 [place] [address] Consulting Physician Neurology 02/23/24 documented as of this encounter
--- OUTSIDE RECORDS SUMMARY | 2025-01-10 00:59 | XMS_ITS | Encounter Summary ---
Author Organization [facility] Address [address] [place] [address] Phone Care Team Providers Care Drill Operator Name Role Phone Luann Cox MD Primary Care Provider + [phone] Josiane Pacheco MD Primary Care Provider + [phone] Blair Paris MD Unavailable [phone] Jose A Espinosa MD Unavailable [phone] Darwin Marti MD Primary Care Provider +[phone] Hao Silvestre MD Unavailable [phone] Carlos Dailey MD Unavailable Saida Mckeon APRN, COMPRESSED YEAST SUPERVISOR Unavailable Jessenia Ward APRN, CARBON CUTTER Unavailable +- [phone] Hao Silvestre MD Unavailable [phone] Dominic Wang MD Unavailable [phone] Butch Muñiz MD Unavailable +[phone] Reason for Visit * Reason Comments Medication Refill Encounter Details Date Type Department Care Team ([facility] Contact Info) Description [facility] [place] [address] [place] [address] Luann Cox MD [address] [place] [address] Medication Refill Social History Tobacco [...] no refill protocol information for this order TEACHER documented in this encounter Plan of Treatment Upcoming Encounters Date Type Department Care Team ([facility] Contact Info) Description 02/20/2025 9:30 AM CDT Office Visit [facility] Medical [facility] - Neurology - [place] [address] [place] [address] Jessenia Ward APRN, CARBON CUTTER [address] [place] [address] 03/09/2025 2:30 PM CDT Office Visit [facility] Medical [facility] - Family Medicine [facility] #2 [place] [address] Juan Shrestha MD #[address] [address] documented as of this encounter Visit Diagnoses Not on filedocumented in this encounter Additional Health Concerns Infection Onset Date Last Indicated Resolved Time ESBL 08/16/2018 08/16/2018 09/28/2023 9:03 AM CDT COVID - 19 03/09/2023 03/09/2023 03/19/2023 12:1 6 AM CDT Respiratory Rule-Out 03/09/2023 03/09/2023 023 2:09 AM CDT COVID - 19 05/07/2023 05/07/2023 05/07/2023 9:50 AM FMD TEACHER COVID - 19 Confirmed 05/07/2023 05/07/2023 023 12:16 AM FMD TEACHER C. difficile Rule-Out 09/24/2023 09/24/20232023 3:41 PM CDT COVID - 19 09/24/2023 09/24/2023 09/24/2023 11:3 2 AM CDT C. difficile Rule-Out 09/27/2023 09/27/20232023 2:13 PM CDT COVID - 19 02/23/2024 02/23/2024 02/23/2024 11:2 8 AM CDT Respiratory Rule-Out 02/23/2024 02/23/2024 024 11:30 AM CDT Assessment Noted Time PHQ-9 Depression Total Score: 2 07/14/19 20 10:00 AM FMD TEACHER documented as of this encounter Care Teams Drill Operator Relationship Specialty Start Date End Date Luann Cox MD PCP - General Family Medicine 04/15/15 11/02/22 Josiane Pacheco MD [address] [place] [address] PCP - General Family Medicine 11/20/22 07/30/23 Darwin Marti MD [address] [place] [address] PCP - General Internal Medicine 07/31/23 Blair Paris MD 4 [facility] [address] [place] [address] Consulting Physician Orthopaedic Sports Medicine 07/31/23 Jose A Espinosa MD 2 [facility] [address] [place] [address] Consulting Physician Pain Medicine-Pain Management 07/31/23 02/08/24 Hao Silvestre MD [address] [address] Consulting Physician Neurological Surgery 07/31/23 Carlos Dailey MD #2 [facility] [address] [place] [address] Consulting Physician Colon and Rectal Surgery 10/26/23 Saida Mckeon APRN, COMPRESSED YEAST SUPERVISOR #2 [place] [address] Nurse Practitioner Gastroenterology 10/26/23 Jessenia Ward APRN, CARBON CUTTER #[address] [place] [address] Nurse Practitioner Neurology 11/17/23 Hao Silvestre MD [address] [address] Consulting Physician Neurological Surgery 02/09/2401/27 Dominic Wang MD [address] [address] Consulting Physician Pain Medicine-Pain Management 02/09/24 Butch Muñiz MD #2 [place] [address] Consulting Physician Neurology 02/23/24 documented as of this encounter
--- OUTSIDE RECORDS SUMMARY | 2025-01-10 00:59 | XMS_ITS | Encounter Summary ---
Author Organization [facility] Address [address] [place] [address] Phone Care Team Providers Care Floor Care Technician Name Role Phone Luann Cox MD Primary Care Provider + [phone] Josiane Pacheco MD Primary Care Provider + [phone] Blair Paris MD Unavailable [phone] Jose A Espinosa MD Unavailable [phone] Darwin Marti MD Primary Care Provider [phone] Hao Silvestre MD Unavailable +[phone] Carlos Dailey MD Unavailable Saida Mckeon APRN, SINK MAKER Unavailable Jessenia Ward APRN, [employer] SALESPERSON Unavailable + [phone] Hao Silvestre MD Unavailable [phone] Dominic Wang MD Unavailable Butch Muñiz MD Unavailable +[phone] Reason for Visit * Reason Comments Medication Refill Encounter Details Date Type Department Care Team (Late st Contact Info) Description [facility]/02[facility] - [place] [address] [place] [phone] Luann Cox MD [address] [place] [address] Medication Refill Social History Tobacco [...] Dept 09/06/20 Office Visit Luann Cox MD [facility] 07/24/20 Office Visit Luann Cox MD [facility] 01/12/20 Office Visit Luann Cox MD [facility] Showing recent visits within past 365 days and meeting all other requirements Future Appointments Date Type Provider Dept 03/07/21 Appointment Luann Cox MD [facility] Showing future appointments within next 90 [...] lumbar region, with neurogenic claudication [facility] Luann Cox MD 5 months ago Uncomplicated asthma [facility] Luann Cox MD 11 months ago Essential hypertension [facility] Luann Cox MD 1 year ago Essential hypertension [facility] Luann Cox MD 1 year ago Essential hypertension [facility] Luann Cox MD Upcoming Appointments Future Appointments In 2 months Luann Cox MD [facility] - Recent and Past Visits Recent Visits Date Type Provider Dept 09/06/20 Office Visit Luann Cox MD [facility] 07/24/20 Office Visit Luann Cox MD [facility] 01/12/20 Office Visit Luann Cox MD [facility] Showing recent visits within past 460 days with a meds authorizing provider and meeting all other requirements Future Appointments Date Type Provider Dept 03/07/21 Appointment Luann Cox MD [facility] Showing future appointments within next 90 [...] Dept 09/06/20 Office Visit [facility] 07/24/20 Office Visit Luann Cox MD [facility] [employer] [facility] 01/12/20 Office Visit [facility] Showing recent visits within past 365 days and meeting all other requirements Future Appointments Date Type Provider Dept 03/07/21 Appointment [facility]ann [facility] MD [facility] [employer] Showing future appointments within next 90 days [...] Dept 09/06/20 Office Visit [facility] MD [facility] 07/24/20 Office [facility]/12/20 Office Visit Luann Cox MD [facility] Showing recent visits within past 365 days and meeting all other requirements Future Appointments Date Type Provider Dept 03/07/21 Appointment Luann Cox MD [facility] Showing future appointments within next 90 days and meeting all other requirements [facility]: Antiulcer - Proton Pump Inhibitors Passed - 01/02/2021 12:58 PM Passed - Valid encounter within last 12 months Past Office Visits Recent Outpatient Visits 3 months ago Spinal stenosis, lumbar region, with neurogenic claudication [facility] Luann Cox MD 5 months ago Uncomplicated asthma [facility] Luann Cox MD 11 months ago Essential hypertension [facility] Luann Cox MD 1 year ago Essential hypertension [facility] Luann Cox MD 1 year ago Essential hypertension [facility] Luann Cox MD Upcoming Appointments Future Appointments In 2 months Luann Cox MD [facility] BUS DRIVER SUPERVISOR - Recent and Past Visits Recent Visits Date Type Provider Dept 09/06/20 Office Visit Luann Cox MD [facility] Office Visit Luann Cox MD [facility] 01/12/20 Office Visit Luann Cox MD [facility] Showing recent visits within past 460 days with a meds authorizing provider and meeting all other requirements Future Appointments Date Type Provider Dept 03/07/21 Appointment Luann Cox MD [facility] Showing future appointments within next 90 days with a meds authorizing provider and meeting all other requirements documented in this encounter Plan of Treatment Upcoming Encounters Date Type Department Care Team (Late st Contact Info) Description 02/20/2025 9:30 AM CDT Office Visit [facility] [place] [address] Jessenia Ward APRN, M[employer] FURNISH[employer] SALESPERSON #2 [place] [address] 03/09/2025 2:30 PM CDT Office Visit [facility] Medical [facility] - Family Medicine - [place] [address] [facility] [place] [address] Juan Shrestha MD #[address] [address] documented as of this encounter Visit Diagnoses [...] - 19 05/07/2023 05/07/2023 05/07/2023 9:50 AM PETROLEUM ANALYST COVID - 19 Confirmed 05/07/2023 05/07/2023 023 12:16 AM PETROLEUM ANALYST C. difficile Rule-Out 09/24/2023 09/24/20232023 3:41 PM CDT COVID - 19 09/24/2023 09/24/2023 09/24/2023 11:3 2 AM CDT C. difficile Rule-Out 09/27/2023 09/27/20232023 2:13 PM CDT COVID - 19 02/23/2024 02/23/2024 02/23/2024 11:2 8 AM CDT Respiratory Rule-Out 02/23/2024 02/23/2024 024 11:30 AM CDT Assessment Noted Time PHQ-9 Depression Total Score: 2 07/14/19 20 10:00 AM PETROLEUM ANALYST documented as of this encounter Care Teams Floor Care Technician Relationship Specialty Start Date End Date Luann Cox MD PCP - General Family Medicine 04/15/15 11/02/22 Josiane Pacheco MD [address] [place] [address] PCP - General Family Medicine 11/20/22 07/30/23 Darwin Marti MD [address] [place] [address] PCP - General Internal Medicine 07/31/23 Blair Paris MD 4 [facility] [address] [place] [address] Consulting Physician Orthopaedic Sports Medicine 07/31/23 Jose A Espinosa MD 2 [facility] [address] [place] [address] Consulting Physician Pain Medicine-Pain Management 07/31/23 02/08/24 Hao Silvestre MD [address] [address] Consulting Physician Neurological Surgery 07/31/23 Carlos Dailey MD #2 [facility] [address] [place] [address] Consulting Physician Colon and Rectal Surgery 10/26/23 Saida Mckeon APRN, SINK MAKER #2 [place] [address] Nurse Practitioner Gastroenterology 10/26/23 Jessenia Ward APRN, M[employer] F[employer]ISH[employer] SALESPERSON #2 [place] [address] Nurse Practitioner Neurology 11/17/23 Hao Silvestre MD [address] [facility] [address] [place] [address] Consulting Physician Neurological Surgery 02/09/2401/27 Dominic Wang MD [address] [address] Consulting Physician Pain Medicine-Pain Management 02/09/24 Butch Muñiz MD #2 [place] [address] Consulting Physician Neurology 02/23/24 documented as of this encounter
--- OUTSIDE RECORDS SUMMARY | 2025-01-10 00:59 | XMS_ITS | Encounter Summary ---
Author Organization [facility] Address [address] [place] [address] Phone Care Team Providers Care Supervising Airplane Pilot Name Role Phone Luann Cox MD Primary Care Provider + [phone] Josiane Pacheco MD Primary Care Provider + [phone] Blair Paris MD Unavailable [phone] Jose A Espinosa MD Unavailable [phone] Darwin Marti MD Primary Care Provider +[phone] Hao Silvestre MD Unavailable [phone] Carlos Dailey MD Unavailable Saida Mckeon APRN, ORTHO NURSE Unavailable Jessenia Ward APRN, CUSTOMER ENGINEERING SPECIALIST Unavailable + [phone] Hao Silvestre MD Unavailable [phone] Dominic Wang MD Unavailable Butch Muñiz MD Unavailable +[phone] Reason for Visit * Reason Comments Medication Refill Encounter Details Date Type Department Care Team (Late st Contact Info) Description 04/19/2021 Refill [facility] - Primary Care - [place] [address] [place] [id number] Luann Cox MD [address] [place] [address] Medication Refill Social History Tobacco [...] Dept 03/07/21 Office Visit Luann Cox MD [facility] 09/06/20 Office Visit Luann Cox MD [facility] 07/24/20 Office Visit Luann Cox MD [facility] Showing recent visits within past 365 days and meeting all other requirements Future Appointments Date Type Provider Dept 06/13/21 Appointment Luann Cox MD [facility] Showing future appointments within next 90 [...] Dept 03/07/21 Office Visit Luann [facility] MD [facility] [employer] [facility] 09/06/20 Office Visit Luann Cox MD [facility] [employer] [facility] 07/24/20 Office Visit Luann Cox MD [facility] Showing recent visits within past 365 days and meeting all other requirements Future Appointments Date Type Provider Dept 06/13/21 Appointment Luann Cox MD [facility] [employer] [facility] Showing future appointments within next 90 [...] Dept 03/07/21 Office Visit Luann Cox MD [facility] 09/06/20 Office Visit Luann Cox MD [facility] 07/24/20 Office Visit Luann Cox MD [facility] Showing recent visits within past 365 days and meeting all other requirements Future Appointments Date Type Provider Dept 06/13/21 Appointment Luann Cox MD [facility] [employer] [facility] Showing future appointments within next 90 [...] Visit [facility] - Neurology [facility] [address] [place] [address] Jessenia Ward APRN, CUSTOMER ENGINEERING SPECIALIST [address] [place] [address] 03/09/2025 2:30 PM CDT Office Visit [facility] Medical [facility] Family Medicine [facility] [address] [place] [id number] Juan Shrestha MD #[address] [address] documented as of this encounter Visit Diagnoses [...] - 19 05/07/2023 05/07/2023 05/07/2023 9:50 AM LIVESTOCK YARD ATTENDANT COVID - 19 Confirmed 05/07/2023 05/07/2023 023 12:16 AM LIVESTOCK YARD ATTENDANT C. difficile Rule-Out 09/24/2023 09/24/20232023 3:41 PM CDT COVID - 19 09/24/2023 09/24/2023 09/24/2023 11:3 2 AM CDT C. difficile Rule-Out 09/27/2023 09/27/20232023 2:13 PM CDT COVID - 19 02/23/2024 02/23/2024 02/23/2024 11:2 8 AM CDT Respiratory Rule-Out 02/23/2024 02/23/2024 024 11:30 AM CDT Assessment Noted Time PHQ-9 Depression Total Score: 2 07/14/19 20 10:00 AM LIVESTOCK YARD ATTENDANT documented as of this encounter Care Teams Supervising Airplane Pilot Relationship Specialty Start Date End Date Luann Cox MD PCP - General Family Medicine 04/15/15 11/02/22 Josiane Pacheco MD [address] [place] [address] PCP - General Family Medicine 11/20/22 07/30/23 Darwin Marti MD [address] [place] [address] PCP - General Internal Medicine 07/31/23 Blair Paris MD 4 [facility] [address] [place] [address] Consulting Physician Orthopaedic Sports Medicine 07/31/23 Jose A Espinosa MD 2 [facility] [address] [place] [address] Consulting Physician Pain Medicine-Pain Management 07/31/23 02/08/24 [place] [address] [place] [address] Consulting Physician Neurological Surgery 07/31/23 Carlos Dailey MD #[address] [address] Consulting Physician Colon and Rectal Surgery 10/26/23 Saida Mckeon APRN, ORTHO NURSE [address] [place] [address] Nurse Practitioner Gastroenterology 10/26/23 Jessenia Ward APRN, CUSTOMER ENGINEERING SPECIALIST [address] [place] [address] Nurse Practitioner Neurology 11/17/23 Hao Silvestre MD [address] [address] Consulting Physician Neurological Surgery 02/09/2401/27 Dominic Wang MD [address] [address] Consulting Physician Pain Medicine-Pain Management 02/09/24 Butch Muñiz MD [address] [place] [address] Consulting Physician Neurology 02/23/24 documented as of this encounter
--- OUTSIDE RECORDS SUMMARY | 2025-01-10 00:59 | XMS_ITS | Encounter Summary ---
Author Organization [facility] Address [address] [place] [address] Phone Care Team Providers Care Resistor Coater Name Role Phone Luann Cox MD Primary Care Provider + [phone] Josiane Pacheco MD Primary Care Provider + [phone] Blari Paris MD Unavailable [phone] Jose A Espinosa MD Unavailable [phone] Darwin Marti MD Primary Care Provider +[phone] Hao Silvestre MD Unavailable +[phone] Carlos Dailey MD Unavailable Saida Mckeon APRN, PUBLIC HEALTH NUTRITIONIST Unavailable Jessenia Ward APRN, DIGITAL FORENSIC EXAMINER Unavailable + [phone] Hao Silvestre MD Unavailable [phone] Dominic Wang MD Unavailable [phone] Butch Muñiz MD Unavailable +[phone] Reason for Visit * Reason Comments Medication Refill Encounter Details Date Type Department Care Team (Late st Contact Info) Description 01/27/2021 Refill [facility] - Primary Care - [place] [address] [place] [address] Luann Cox MD [address] [place] [address] Medication Refill Social History Tobacco [...] Spinal stenosis, lumbar region, with neurogenic claudication [facility] - Family Medicine - [facility] Luann Cox MD 6 months ago Uncomplicated asthma [facility] Luann Cox MD 1 year ago Essential hypertension [facility] Luann Cox MD 1 year ago Essential hypertension [facility] Luann Cox MD 2 years ago Essential hypertension [facility] Luann Cox MD Upcoming Appointments Future Appointments In 1 month Luann Cox MD [facility] PELLET POST INSPECTOR - Recent and Past Visits Recent Visits Date Type Provider Dept 09/06/20 Office Visit Luann Cox MD [facility] 07/24/20 Office Visit Luann Cox MD [facility] 01/12/20 Office Visit Luann Cox MD [facility] Showing recent visits within past 460 days with a meds authorizing provider and meeting all other requirements Future Appointments Date Type Provider Dept 03/07/21 Appointment Luann Cox MD [facility] Showing future appointments within [...] Luann Cox MD [facility] 07/24/20 Office Visit Luann Cox MD [facility] Showing recent visits within past 365 days and meeting all other requirements Future Appointments Date Type Provider Dept 03/07/21 Appointment Luann Cox MD [facility] Showing future appointments within next 90 days and meeting all other requirements documented in this encounter Plan of Treatment Upcoming Encounters Date Type Department Care Team (Late st Contact Info) Description 02/20/2025 9:30 AM CDT Office Visit [facility] - Neurology - [place] [address] [place] [address] Jessenia Ward APRN, DIGITAL FORENSIC EXAMINER [address] [place] [address] 03/09/2025 2:30 PM CDT Office Visit [facility] - Family Medicine - [place] [address] [place] [address] Juan Shrestha MD #[address] [address] documented as of this encounter Visit Diagnoses Diagnosis Neuropathy Mononeuritis of unspecified site documented in this encounter Additional Health Concerns Infection Onset Date Last Indicated Resolved Time ESBL 08/16/2018 08/16/2018 09/28/2023 9:03 AM CDT COVID - 19 03/09/2023 03/09/2023 03/19/2023 12:1 6 AM CDT Respiratory Rule-Out 03/09/2023 03/09/2023 023 2:09 AM CDT COVID - 19 05/07/2023 05/07/2023 05/07/2023 9:50 AM MANAGER GENERATION COVID - 19 Confirmed 05/07/2023 05/07/2023 023 12:16 AM MANAGER GENERATION C. difficile Rule-Out 09/24/2023 09/24/20232023 3:41 PM CDT COVID - 19 09/24/2023 09/24/2023 09/24/2023 11:3 2 AM CDT C. difficile Rule-Out 09/27/2023 09/27/20232023 2:13 PM CDT COVID - 19 02/23/2024 02/23/2024 02/23/2024 11:2 8 AM CDT Respiratory Rule-Out 02/23/2024 02/23/2024 024 11:30 AM CDT Assessment Noted Time PHQ-9 Depression Total Score: 2 07/14/19 20 10:00 AM MANAGER GENERATION documented as of this encounter Care Teams Resistor Coater Relationship Specialty Start Date End Date Luann Cox MD PCP - General Family Medicine 04/15/15 11/02/22 Josiane Pacheco MD [address] [place] [address] PCP - General Family Medicine 11/20/22 07/30/23 Darwin Marti MD [address] [place] [address] PCP - General Internal Medicine 07/31/23 Blair Paris MD 4 [facility] [address] [place] [address] Consulting Physician Orthopaedic Sports Medicine 07/31/23 Jose A Espinosa MD 2 [facility] [address] [place] [address] Consulting Physician Pain Medicine-Pain Management 07/31/23 02/08/24 Hao Silvestre MD [address] [address] Consulting Physician Neurological Surgery 07/31/23 Carlos Dailey MD #2 [facility] [address] [place] [address] Consulting Physician Colon and Rectal Surgery 10/26/23 Saida Mckeon APRN, PUBLIC HEALTH NUTRITIONIST [address] [place] [address] Nurse Practitioner Gastroenterology 10/26/23 Jessenia Ward APRN, DIGITAL FORENSIC EXAMINER [address] [place] [address] Nurse Practitioner Neurology 11/17/23 Hao Silvestre MD [address] [facility] [address] [place] [address] Consulting Physician Neurological Surgery 02/09/2401/27 Dominic Wang MD 68[address] [facility] [address] [place] [address] Consulting Physician Pain Medicine-Pain Management 02/09/24 Butch Muñiz MD #[address] [place] [address] Consulting Physician Neurology 02/23/24 documented as of this encounter
--- OUTSIDE RECORDS SUMMARY | 2025-01-10 00:59 | XMS_ITS | Encounter Summary ---
Author Organization [facility] Address [address] [place] [address] Phone Care Team Providers Care Library Media Specialist Name Role Phone Luann Cox MD Primary Care Provider + [phone] Josiane Pacheco MD Primary Care Provider + [phone] Blair Paris MD Unavailable [phone] Jose A Espinosa MD Unavailable [phone] Darwin Marti MD Primary Care Provider [phone] Hao Silvestre MD Unavailable +[phone] Carlos Dailey MD Unavailable Saida Mckeon APRN, CHEMICAL OPERATIONS AND TRAINING Unavailable [place], Jessenia M GEOSPATIAL TECHNICIAN, RADIO INSTALLER Unavailable [phone] Hao Silvestre MD Unavailable Dominic Wang MD Unavailable [phone] Butch Muñiz MD Unavailable +[phone] Reason for Visit * Reason Comments Medication Refill Encounter Details Date Type Department Care Team (Late Contact Info) Description 02/23[facility] [place] [address] [place] [address] Luann Cox MD [address] [place] [address] Medication Refill Social History [...] [facility] - Neurology - [place] #[address] [place] [address] Jessenia Ward, GEOSPATIAL TECHNICIAN, RADIO INSTALLER #[address] [place] [address] 03/09/2025 2:30 PM CDT Office Visit [facility] - Family Medicine - [place] #[address] [place] [address] Juan Shrestha MD #[address] [address] documented as of this encounter Visit Diagnoses Diagnosis Essential hypertension Unspecified essential hypertension documented in this encounter Additional Health Concerns Infection Onset Date Last Indicated Resolved Time ESBL 08/16/2018 08/16/2018 09/28/2023 9:03 AM CDT COVID - 19 03/09/2023 03/09/2023 03/19/2023 12:1 6 AM CDT Respiratory Rule-Out 03/09/2023 03/09/2023 023 2:09 AM CDT COVID - 19 05/07/2023 05/07/2023 05/07/2023 9:50 AM BUNG DRIVER COVID - 19 Confirmed 05/07/2023 05/07/2023 023 12:16 AM BUNG DRIVER C. difficile Rule-Out 09/24/2023 09/24/20232023 3:41 PM CDT COVID - 19 09/24/2023 09/24/2023 09/24/2023 11:3 2 AM CDT C. difficile Rule-Out 09/27/2023 09/27/20232023 2:13 PM CDT COVID - 19 02/23/2024 02/23/2024 02/23/2024 11:2 8 AM CDT Respiratory Rule-Out 02/23/2024 02/23/2024 024 11:30 AM CDT Assessment Noted Time PHQ-9 Depression Total Score: 2 07/14/19 20 10:00 AM BUNG DRIVER documented as of this encounter Care Teams Library Media Specialist Relationship Specialty Start Date End Date Luann Cox MD PCP - General Family Medicine 04/15/15 11/02/22 Josiane Pacheco MD [address] [place] [address] PCP - General Family Medicine 11/20/22 07/30/23 Darwin Marti MD [address] [place] [address] PCP - General Internal Medicine 07/31/23 Blair Paris MD 4 [facility] [address] [place] [address] Consulting Physician Orthopaedic Sports Medicine 07/31/23 Jose A Espinosa MD [address] [address] Consulting Physician Pain Medicine-Pain Management 07/31/23 02/08/24 Hao Silvestre MD [address] [address] Consulting Physician Neurological Surgery 07/31/23 Carlos Dailey MD #[address] [address] Consulting Physician Colon and Rectal Surgery 10/26/23 Saida Mckeon APRN, CHEMICAL OPERATIONS AND TRAINING [address] [place] [address] Nurse Practitioner Gastroenterology 10/26/23 Jessenia Ward APRN, RADIO INSTALLER [address] [place] [address] Nurse Practitioner Neurology 11/17/23 Hao Silvestre MD [address] [place] [address] Consulting Physician Neurological Surgery 02/09/2401/27 Dominic Wang MD [address] [address] Consulting Physician Pain Medicine-Pain Management 02/09/24 Butch Muñiz MD #[address] [place] [address] Consulting Physician Neurology 02/23/24 documented as of this encounter
--- OUTSIDE RECORDS SUMMARY | 2025-01-10 01:00 | XMS_ITS | Encounter Summary ---
Author Organization [facility] Address [address] [place] [address] Phone Care Team Providers Care Commanding Officer Traffic Division Name Role Phone Josiane Pacheco MD Primary Care Provider +[phone] Blair Paris MD Unavailable [phone] Jose A Espinosa MD Unavailable [phone] Darwin Marti MD Primary Care Provider [phone] Hao Silvestre MD Unavailable [phone] Carlos Dailey MD Unavailable Sadia Mckeon APRN, SECURITY AND COMPLIANCE ANALYST Unavailable Jessenia Ward APRN, BOAT CANVAS INSTALLER Unavailable + [phone] Hao Silvestre MD Unavailable [phone] Dominic Wang MD Unavailable [phone] Butch Muñiz MD Unavailable Reason for Visit * Reason Comments Medication Refill Encounter Details Date Type Department Care Team (Late st Contact Info) Description [facility] [place] [address] [place] [address] Josiane Pacheco MD [address] [place] [address] Medication Refill Social History Tobacco Use Types [...] Dept 05/29/22 Office Visit Luann Cox MD [facility] Showing recent visits within past 365 days and meeting all other requirements Future Appointments Date Type Provider Dept 01/29/23 Appointment Josiane Pacheco MD [facility] Showing future [...] Dept 05/29/22 Office Visit Luann Cox MD [facility] Showing recent visits within past 365 days and meeting all other requirements Future Appointments Date Type Provider Dept 01/29/23 Appointment Josiane Pacheco MD [facility] Showing future [...] Dept 05/29/22 Office Visit Luann Cox MD [facility] Showing recent visits within past 365 days and meeting all other requirements Future Appointments Date Type Provider Dept 01/29/23 Appointment Josiane Pacheco MD [facility] Showing future [...] Dept 05/29/22 Office Visit Luann Cox MD [facility] Showing recent visits within past 365 days and meeting all other requirements Future Appointments Date Type Provider Dept 01/29/23 Appointment Josiane Pacheco MD [facility] Showing future [...] Dept 05/29/22 Office Visit Luann Cox MD [facility] Showing recent visits within past 365 days and meeting all other requirements Future Appointments Date Type Provider Dept 01/29/23 Appointment Josiane Pacheco MD [facility] Showing future appointments within next 90 days and meeting all other requirements documented in this encounter Plan of Treatment Upcoming Encounters Date Type Department Care Team (Late st Contact Info) Description 02/20/2025 9:30 AM CDT Office Visit [facility] Medical [facility] - Neurology - [place] [address] [place] [address] Jessenia Ward APRN, BOAT CANVAS INSTALLER #[address] [place] [address] 03/09/2025 2:30 PM CDT Office Visit [facility] Medical [facility] - Family Medicine [facility] #2 [place] [address] Juan Shrestha MD [address] [address] documented as of this encounter Visit Diagnoses [...] - 19 05/07/2023 05/07/2023 05/07/2023 9:50 AM SUBSTATION OPERATOR HELPER GENERATION COVID - 19 Confirmed 05/07/2023 05/07/2023 023 12:16 AM SUBSTATION OPERATOR HELPER GENERATION C. difficile Rule-Out 09/24/2023 09/24/20232023 3:41 PM CDT COVID - 19 09/24/2023 09/24/2023 09/24/2023 11:3 2 AM CDT C. difficile Rule-Out 09/27/2023 09/27/20232023 2:13 PM CDT COVID - 19 02/23/2024 02/23/2024 02/23/2024 11:2 8 AM CDT Respiratory Rule-Out 02/23/2024 02/23/2024 024 11:30 AM CDT Assessment Noted Time PHQ-9 Depression Total Score: 2 07/14/19 20 10:00 AM SUBSTATION OPERATOR HELPER GENERATION documented as of this encounter Care Teams Commanding Officer Traffic Division Relationship Specialty Start Date End Date Josiane Pacheco MD [address] [place] [address] PCP - General Family Medicine 11/20/22 07/30/23 Darwin Marti MD [address] [place] [address] PCP - General Internal Medicine 07/31/23 Blair Paris MD 4 [facility] [address] [place] [address] Consulting Physician Orthopaedic Sports Medicine 07/31/23 Jose A Espinosa MD 2 [facility] [address] [place] [address] Consulting Physician Pain Medicine-Pain Management 07/31/23 02/08/24 Hao Silvestre MD [address] [place] [address] Consulting Physician Neurological Surgery 07/31/23 Carlos Dailey MD #[address] [address] Consulting Physician Colon and Rectal Surgery 10/26/23 Saida Mckeon APRN, SECURITY AND COMPLIANCE ANALYST #[address] [place] [address] Nurse Practitioner Gastroenterology 10/26/23 Jessenia Ward, MOBILE HOME SERVICER, BOAT CANVAS INSTALLER [address] [place] [address] Nurse Practitioner Neurology 11/17/23 Hao Silvestre MD [address] [address] Consulting Physician Neurological Surgery 02/09/2401/27 Dominic Wang MD [address] [address] Consulting Physician Pain Medicine-Pain Management 02/09/24 Butch Muñiz MD #2 [place] [address] Consulting Physician Neurology 02/23/24 documented as of this encounter
--- OUTSIDE RECORDS SUMMARY | 2025-01-10 01:00 | XMS_ITS | Encounter Summary ---
Author Organization [facility] Address [address] [place] [address] Phone Care Team Providers Care City Carrier Assistant Name Role Phone Blair Paris MD Unavailable [phone] Darwin Marti MD Primary Care Provider + [phone] Hao Silvestre MD Unavailable [phone] Carlos Dailey MD Unavailable Saida Mckeon APRN, STRAINER TENDER Unavailable Jessenia Ward APRN, TRAINING CONSULTANT Unavailable + [phone] Dominic Wang MD Unavailable [phone] Butch Muñiz MD Unavailable [phone] Reason for Visit * Reason Comments Medication Refill Encounter Details Date Type Department Care Team (Late st Contact Info) Description 03/04/2024 Refill [facility] - Primary Care - [place] [address] [place] [address] Darwin Marti MD [address] [place] [address] Medication Refill Social History Tobacco Use Types [...] often do you attend chur ch or jainism services? Never 09/26/2023 Do you belong to any clubs o r organizations such as protestant groups, unions, fraternal or athletic groups, or [...] Answer Date Recorded PHQ-2 Score 2 07/14/2019 [facility] Occupat ional Health - Occupational Stress [...] place to sleep or slept in a intermediate (including now)? No 09/26/2023 Sexually Active Control [...] CDT Office Visit [facility] - Neurology - [place] [address] [place] [address] Jessenia Ward, FISCAL ACCOUNTING CLERK, TRAINING CONSULTANT #[address] [place] [address] 03/09/2025 2:30 PM CDT Office Visit [facility] Family Medicine - [place] [address] [place] [address] Juan Shrestha MD #[address] [address] documented as of this encounter Visit Diagnoses Not on filedocumented in this encounter Additional Health Concerns Assessment Noted Time PHQ-9 Depression Total Score: 0 07/31/19 24 12:53 PM HUMAN SERVICE SPECIALIST documented as of this encounter Care Teams City Carrier Assistant Relationship Specialty Start Date End Date Darwin Marti MD [address] [place] [address] PCP - General Internal Medicine 07/31/23 Blair Paris MD [address] [place] [address], [facility] [address] [place] [address] Consulting Physician Orthopaedic Sports Medicine 07/31/23 Hao Silvestre MD [address] [place] [address] Consulting Physician Neurological Surgery 07/31/23 Carlos Dailey MD #[address] [address] Consulting Physician Colon and Rectal Surgery 10/26/23 Saida Mckeon APRN, STRAINER TENDER #[address] [place] [address] Nurse Practitioner Gastroenterology 10/26/23 Jessenia Ward APRN, TRAINING CONSULTANT #[address] [place] [address] Nurse Practitioner Neurology 11/17/23 Dominic Wang MD [address] [address] Consulting Physician Pain Medicine-Pain Management 02/09/24 Butch Muñiz MD #[address] [place] [address] Consulting Physician Neurology 02/23/24 documented as of this encounter
--- OUTSIDE RECORDS SUMMARY | 2025-01-10 01:00 | XMS_ITS | Encounter Summary ---
Author Organization [facility] Address [address] [place] [address] Phone Care Team Providers Care Drug Abuse Program Coordinator Name Role Phone Luann Cox MD Primary Care Provider + [phone] Josiane Pacheco MD Primary Care Provider + [phone] Blair Paris MD Unavailable +[phone] Jose A Espinosa MD Unavailable +[phone] Darwin Marti MD Primary Care Provider +[phone] Hao Silvestre MD Unavailable +[phone] Carlos Dailey MD Unavailable Saida Mckeon APRN, CHECK WRITING MACHINE OPERATOR Unavailable Jessenia Ward APRN, AUTO CARE CENTER MANAGER Unavailable + [phone] Hao Silvestre MD Unavailable +[phone] Dominic Wang MD Unavailable [phone] Butch Muñiz MD Unavailable +[phone] Reason for Visit * Reason Comments Medication Refill Encounter Details Date Type Department Care Team (Late Contact Info) Description 04/24/2020 Refill [facility] Primary Care - [place] [address] [place] [address] Luann Cox MD [address] [place] [address] Medication Refill Social History Tobacco [...] [facility] - Neurology - [place] [address]2 [place] [address] Jessenia Ward APRN, AUTO CARE CENTER MANAGER #2 [place] [address] 03/09/2025 2:30 PM CDT Office Visit [facility] - Family Medicine - [place] #2 [place] [address] Juan Shrestha MD #[address] [address] documented as of this encounter Visit Diagnoses Diagnosis Hypothyroidism (acquired) Unspecified hypothyroidism Eczema, unspecified type documented in this encounter Additional Health Concerns Infection Onset Date Last Indicated Resolved Time ESBL 08/16/2018 08/16/2018 09/28/2023 9:03 AM CDT COVID - 19 03/09/2023 03/09/2023 03/19/2023 12:1 6 AM CDT Respiratory Rule-Out 03/09/2023 03/09/2023 023 2:09 AM CDT COVID - 19 05/07/2023 05/07/2023 05/07/2023 9:50 AM ODD BUNDLE WORKER COVID - 19 Confirmed 05/07/2023 05/07/2023 023 12:16 AM ODD BUNDLE WORKER C. difficile Rule-Out 09/24/2023 09/24/20232023 3:41 PM CDT COVID - 19 09/24/2023 09/24/2023 09/24/2023 11:3 2 AM CDT C. difficile Rule-Out 09/27/2023 09/27/20232023 2:13 PM CDT COVID - 19 02/23/2024 02/23/2024 02/23/2024 11:2 8 AM CDT Respiratory Rule-Out 02/23/2024 02/23/2024 024 11:30 AM CDT Assessment Noted Time PHQ-9 Depression Total Score: 2 07/14/19 20 10:00 AM ODD BUNDLE WORKER documented as of this encounter Care Teams Drug Abuse Program Coordinator Relationship Specialty Start Date End Date Luann Cox MD PCP - General Family Medicine 04/15/15 11/02/22 Josiane Pacheco MD [address] [place] [address] PCP - General Family Medicine 11/20/22 07/30/23 Darwin Marti MD [address] [place] [address] PCP - General Internal Medicine 07/31/23 Blair Paris MD 4 [facility] [address] [place] [address] Consulting Physician Orthopaedic Sports Medicine 07/31/23 Jose A Espinosa MD 2 [facility] [address] [place] [address] Consulting Physician Pain Medicine-Pain Management 07/31/23 02/08/24 Hao Silvestre MD [address] [address] Consulting Physician Neurological Surgery 07/31/23 Carlos Dailey MD #2 [facility] [address] [place] [address] Consulting Physician Colon and Rectal Surgery 10/26/23 Saida Mckeon APRN, CHECK WRITING MACHINE OPERATOR #[address] [place] [address] Nurse Practitioner Gastroenterology 10/26/23 Jessenia Ward APRN, AUTO CARE CENTER MANAGER #2 [place] [address] Nurse Practitioner Neurology 11/17/23 Hao Silvestre MD [address] [address] Consulting Physician Neurological Surgery 02/09/2401/27 Dominic Wang MD [address] [address] Consulting Physician Pain Medicine-Pain Management 02/09/24 Butch Muñiz MD #2 [place] [address] Consulting Physician Neurology 02/23/24 documented as of this encounter
--- OUTSIDE RECORDS SUMMARY | 2025-01-10 01:00 | XMS_ITS | Encounter Summary ---
Author Organization [facility] Address [address] [place] [address] Phone Care Team Providers Care Sample Sewer Name Role Phone Luann Cox MD Primary Care Provider + [phone] Josiane Pacheco MD Primary Care Provider + [phone] Blair Paris MD Unavailable +[phone] Jose A Espinosa MD Unavailable [phone] Darwin Marti MD Primary Care Provider +[phone] Hao Silvestre MD Unavailable +[phone] Carlos Dailey MD Unavailable Saida Mckeon APRN, ENGINEER SYSTEM ADMINISTRATOR Unavailable Jessenia Ward APRN, PAVING STONE INSTALLER Unavailable + [phone] Hao Silvestre MD Unavailable +[phone] Dominic Wang MD Unavailable [phone] Butch Muñiz MD Unavailable +[phone] Reason for Visit * Reason Comments Medication Refill Encounter Details Date Type Department Care Team (Late st Contact Info) Description 04/06/2020 Refill [facility] [address] [place] [address] Luann Cox MD [address] [place] [address] Medication Refill Social History Tobacco [...] Outpatient Visits 2 months ago Essential hypertension [facility] Luann Cox MD 9 months ago Essential hypertension [facility] Luann Torres MD 1 year ago [facility] 1 year ago Syncope, unspecified syncope type [facility] Luann Torres MD 1 year ago Sore throat [facility] Upcoming Appointments Future Appointments In [address], [facility] In 3 months [facility], [facility] In 3 months Luann Cox MD [facility] LICENSED SALES ASSISTANT - Recent and Past Visits Recent Visits Date Type Provider Dept 01/12/20 Office Visit Luann Cox MD [facility] 07/14/19 Office Visit Luann Cox MD [facility] 01/11/19 Office Visit Luann Cox MD [facility] Showing recent visits within past 460 days [...] Outpatient Visits 2 months ago Essential hypertension [facility] Luann Cox MD 9 months ago Essential [facility] 1 year ago Essential hypertension [facility] - Luann Torres MD 1 year ago Syncope, unspecified syncope type [facility], Luann, MD 1 year ago Sore throat [facility] - Luann Torres MD Upcoming Appointments Future Appointments In 1 month [facility] MRI, [facility] In 3 months Lab, [facility] In 3 months Luann Cox MD [facility] LICENSED SALES ASSISTANT - Recent and Past Visits Recent Visits Date Type Provider Dept 01/12/20 Office Visit Luann Cox MD [facility] 07/14/19 Office Visit Luann Cox MD [facility] 01/11/19 Office Visit Luann Cox MD [facility] Showing recent visits within past 460 days [...] AM CDT Office Visit [facility] Neurology - [place] #2 [place] [address] Jessenia Ward APRN, PAVING STONE INSTALLER #2 [place] [address] 03/09/2025 2:30 PM CDT Office Visit [facility] Family Medicine [facility] #2 [place] [address] Juan Shrestha MD #[address] [address] documented as of this encounter Visit Diagnoses Diagnosis Gastroesophageal reflux disease Esophageal reflux documented in this encounter Additional Health Concerns Infection Onset Date Last Indicated Resolved Time ESBL 08/16/2018 08/16/2018 09/28/2023 9:03 AM CDT COVID - 19 03/09/2023 03/09/2023 03/19/2023 12:1 6 AM CDT Respiratory Rule-Out 03/09/2023 03/09/2023 023 2:09 AM CDT COVID - 19 05/07/2023 05/07/2023 05/07/2023 9:50 AM TYPEWRITERS FUNCTIONAL TESTER COVID - 19 Confirmed 05/07/2023 05/07/2023 023 12:16 AM TYPEWRITERS FUNCTIONAL TESTER C. difficile Rule-Out 09/24/2023 09/24/20232023 3:41 PM CDT COVID - 19 09/24/2023 09/24/2023 09/24/2023 11:3 2 AM CDT C. difficile Rule-Out 09/27/2023 09/27/20232023 2:13 PM CDT COVID - 19 02/23/2024 02/23/2024 02/23/2024 11:2 8 AM CDT Respiratory Rule-Out 02/23/2024 02/23/2024 024 11:30 AM CDT Assessment Noted Time PHQ-9 Depression Total Score: 2 07/14/19 20 10:00 AM TYPEWRITERS FUNCTIONAL TESTER documented as of this encounter Care Teams Sample Sewer Relationship Specialty Start Date End Date Luann Cox MD PCP - General Family Medicine 04/15/15 11/02/22 Josiane Pacheco MD [address] [place] [address] PCP - General Family Medicine 11/20/22 07/30/23 Darwin Marti MD [address] [place] [address] PCP - General Internal Medicine 07/31/23 Blair Paris MD 4 [facility] [address] [place] [address] Consulting Physician Orthopaedic Sports Medicine 07/31/23 Jose A Espinosa MD 2 [facility] [address] [place] [address] Consulting Physician Pain Medicine-Pain Management 07/31/23 02/08/24 Hao Silevstre MD [address] [address] Consulting Physician Neurological Surgery 07/31/23 Carlos Dailey MD #[address] [address] Consulting Physician Colon and Rectal Surgery 10/26/23 Saida Mckeon APRN, ENGINEER SYSTEM ADMINISTRATOR #[address] [place] [address] Nurse Practitioner Gastroenterology 10/26/23 Jessenia Ward, INTERNATIONAL MARKETING INTERN, PAVING STONE INSTALLER #2 [place] [address] Nurse Practitioner Neurology 11/17/23 Hao Silvestre MD [address] [place] [address] Consulting Physician Neurological Surgery 02/09/2401/27 Dominic Wang MD [address] [address] Consulting Physician Pain Medicine-Pain Management 02/09/24 Butch Muñiz MD #2 [place] [address] Consulting Physician Neurology 02/23/24 documented as of this encounter
--- OUTSIDE RECORDS SUMMARY | 2025-01-10 01:00 | XMS_ITS | Encounter Summary ---
Author Organization [facility] Address [address] [place] [address] Phone Care Team Providers Care Library Assistant Name Role Phone Luann Cox MD Primary Care Provider + [phone] Josiane Pacheco MD Primary Care Provider + [phone] Blair Paris MD Unavailable [phone] Jose A Espinosa MD Unavailable [phone] Darwin Marti MD Primary Care Provider +[phone] Hao Silvestre MD Unavailable +[phone] Carlos Dailey MD Unavailable Saida Mckeon APRN, MEDICAL RADIATION TECH Unavailable Jessenia Ward APRN, OILER BANDER Unavailable + [phone] Hao Silvestre MD Unavailable [phone] Dominic Wang MD Unavailable [phone] Butch Muñiz MD Unavailable +[phone] Reason for Visit * Reason Comments Medication Refill Encounter Details Date Type Department Care Team (Late st Contact Info) Description 11/01/2021 Refill [facility] - Primary Care - [place] [address] [place] [address] Luann Cox MD [address] [place] [address] Medication Refill Social History Tobacco [...] Dept 06/27/21 Office Visit [facility]ann Cox MD [facility] 03/07/21 Office Visit Luann Cox MD [facility] Showing recent visits within past 365 [...] Dept 06/27/21 Office Visit Luann Cox MD [facility] 03/07/21 Office Visit Luann Cox MD [facility] Showing recent visits within past 365 [...] Dept 06/27/21 Office Visit Luann Cox MD [facility] 03/07/21 Office Visit Luann Cox MD [facility] Showing recent visits within past 365 [...] Dept 06/27/21 Office Visit [facility]ann Cox [facility] 03/07/21 Office Visit Luann Cox MD [facility] Showing recent visits within past 365 days [...] Dept 06/27/21 Office Visit Luann Cox [facility] 03/07/21 Office Visit Luann Cox MD [facility] Showing recent visits within past 365 [...] 9:30 AM CDT Office Visit [facility] Medical [facility] - Neurology [facility] #2 [place] [address] Jessenia Ward APRN, OILER BANDER #2 [place] [address] 03/09/2025 2:30 PM CDT Office Visit [facility] Medical [facility] - Family Medicine [facility] #2 [place] [address] Juan Shrestha MD #[address] [address] documented as of this encounter Visit Diagnoses [...] - 19 05/07/2023 05/07/2023 05/07/2023 9:50 AM PADDED PRODUCTS FINISHER COVID - 19 Confirmed 05/07/2023 05/07/2023 023 12:16 AM PADDED PRODUCTS FINISHER C. difficile Rule-Out 09/24/2023 09/24/20232023 3:41 PM CDT COVID - 19 09/24/2023 09/24/2023 09/24/2023 11:3 2 AM CDT C. difficile Rule-Out 09/27/2023 09/27/20232023 2:13 PM CDT COVID - 19 02/23/2024 02/23/2024 02/23/2024 11:2 8 AM CDT Respiratory Rule-Out 02/23/2024 02/23/2024 024 11:30 AM CDT Assessment Noted Time PHQ-9 Depression Total Score: 2 07/14/19 20 10:00 AM PADDED PRODUCTS FINISHER documented as of this encounter Care Teams Library Assistant Relationship Specialty Start Date End Date Luann Cox MD PCP - General Family Medicine 04/15/15 11/02/22 Josiane Pacheco MD [address] [place] [address] PCP - General Family Medicine 11/20/22 07/30/23 Darwin Marti MD [address] [place] [address] PCP - General Internal Medicine 07/31/23 Blair Paris MD 4 [facility] [address] [place] [address] Consulting Physician Orthopaedic Sports Medicine 07/31/23 Jose A Espinosa MD 2 [facility] [address] [place] [address] Consulting Physician Pain Medicine-Pain Management 07/31/23 02/08/24 Hao Silvestre MD [address] [address] Consulting Physician Neurological Surgery 07/31/23 Carlos Dailey MD #[address] [address] Consulting Physician Colon and Rectal Surgery 10/26/23 Saida Mckeon APRN, MEDICAL RADIATION TECH #2 [place] [address] Nurse Practitioner Gastroenterology 10/26/23 Jessenia Ward, PRODUCTION ROUSTABOUT, OILER BANDER #[address] [place] [address] Nurse Practitioner Neurology 11/17/23 Hao Silvestre MD [address] [address] Consulting Physician Neurological Surgery 02/09/2401/27 Dominic Wang MD 6828 [facility] [address] [place] [address] Consulting Physician Pain Medicine-Pain Management 02/09/24 Butch Muñiz MD #2 [place] [address] Consulting Physician Neurology 02/23/24 documented as of this encounter
--- OUTSIDE RECORDS SUMMARY | 2025-01-10 01:00 | XMS_ITS | Encounter Summary ---
Author Organization [facility] Address [address] [place] [address] Phone Care Team Providers Care District Wire Chief Name Role Phone Luann Cox MD Primary Care Provider + [phone] Josiane Pacheco MD Primary Care Provider + [phone] Blair Paris MD Unavailable [phone] Jose A Espinosa MD Unavailable [phone] Darwin Marti MD Primary Care Provider +[phone] Hao Silvestre MD Unavailable +[phone] Carlos Dailey MD Unavailable Saida Mckeon APRN, HANDLE TURNER Unavailable Jessenia Ward APRN, SUPERVISOR INSPECTION ROOM Unavailable +- [phone] Hao Silvestre MD Unavailable +[phone] Dominic Wang MD Unavailable [phone] Butch Muñiz MD Unavailable +[phone] Reason for Visit * Reason Comments Medication Refill Encounter Details Date Type Department Care Team (Late st Contact Info) Description 11/29/2021 Refill [facility] - Primary Care - [place] [address] [place] [address] Luann Cox MD [address] [place] [address] Medication Refill Social History Tobacco [...] Dept 06/27/21 Office Visit Luann Cox MD [facility] 03/07/21 Office Visit Luann Cox MD [facility] Showing recent visits within past 365 days and meeting all other requirements Future Appointments Date Type Provider Dept 12/10/21 Appointment Lab, [facility] 12/16/21 Appointment Luann Cox MD [facility] Showing future appointments within next 90 [...] Dept 06/27/21 Office Visit Luann Cox MD [facility] 03/07/21 Office Visit Luann Cox MD [facility] Showing recent visits within past 365 days and meeting all other requirements Future Appointments Date Type Provider Dept 12/10/21 Appointment [place], [facility] 12/16/21 Appointment Luann Cox MD [facility] Showing future appointments within next 90 days and meeting all other requirements Passed - GFR on record in past 12 months GFR, EST. NONAFRICAN Date Value Ref Range Status 10/14/2021 >60 >=60 Final documented in this encounter Plan of Treatment Upcoming Encounters Date Type Department Care Team (Late st Contact Info) Description 02/20/2025 9:30 AM CDT Office Visit [facility] Medical [facility] - Neurology [facility] #2 [place] [address] Jessenia Ward APRN, SUPERVISOR INSPECTION ROOM #2 [place] [address] 03/09/2025 2:30 PM CDT Office Visit [facility] Medical [facility] - Family Medicine [facility] #2 [place] [address] Juan Shrestha MD #[address] [address] documented as of this encounter Visit Diagnoses Diagnosis Essential hypertension Unspecified essential hypertension documented in this encounter Additional Health Concerns Infection Onset Date Last Indicated Resolved Time ESBL 08/16/2018 08/16/2018 09/28/2023 9:03 AM CDT COVID - 19 03/09/2023 03/09/2023 03/19/2023 12:1 6 AM CDT Respiratory Rule-Out 03/09/2023 03/09/2023 023 2:09 AM CDT COVID - 19 05/07/2023 05/07/2023 05/07/2023 9:50 AM REAL ESTATE SUBAGENT COVID - 19 Confirmed 05/07/2023 05/07/2023 023 12:16 AM REAL ESTATE SUBAGENT C. difficile Rule-Out 09/24/2023 09/24/20232023 3:41 PM CDT COVID - 19 09/24/2023 09/24/2023 09/24/2023 11:3 2 AM CDT C. difficile Rule-Out 09/27/2023 09/27/20232023 2:13 PM CDT COVID - 19 02/23/2024 02/23/2024 02/23/2024 11:2 8 AM CDT Respiratory Rule-Out 02/23/2024 02/23/2024 024 11:30 AM CDT Assessment Noted Time PHQ-9 Depression Total Score: 2 07/14/19 20 10:00 AM REAL ESTATE SUBAGENT documented as of this encounter Care Teams District Wire Chief Relationship Specialty Start Date End Date Luann Cox MD PCP - General Family Medicine 04/15/15 11/02/22 Josiane Pacheco MD [address] [place] [address] PCP - General Family Medicine 11/20/22 07/30/23 Darwin Marti MD [address] [place] [address] PCP - General Internal Medicine 07/31/23 Blair Paris MD [address] [place] [address], [address] [address] Consulting Physician Orthopaedic Sports Medicine 07/31/23 Jose A Espinosa MD [address] [address] Consulting Physician Pain Medicine-Pain Management 07/31/23 02/08/24 Hao Silvestre MD [address] [address] Consulting Physician Neurological Surgery 07/31/23 Carlos Dailey MD #[address] [address] Consulting Physician Colon and Rectal Surgery 10/26/23 Saida Mckeon APRN, HANDLE TURNER #2 [place] [address] Nurse Practitioner Gastroenterology 10/26/23 Jessenia Ward APRN, SUPERVISOR INSPECTION ROOM #2 [place] [address] Nurse Practitioner Neurology 11/17/23 Hao Silvestre MD [address] [address] Consulting Physician Neurological Surgery 02/09/2401/27 Dominic Wang MD [address] [address] Consulting Physician Pain Medicine-Pain Management 02/09/24 Butch Muñiz MD #2 [place] [address] Consulting Physician Neurology 02/23/24 documented as of this encounter
--- OUTSIDE RECORDS SUMMARY | 2025-01-10 01:00 | XMS_ITS | Encounter Summary ---
Author Organization [facility] Address [address] [place] [address] Phone Care Team Providers Care Display Designer Outside Name Role Phone Luann Cox MD Primary Care Provider + [phone] Josiane Pacheco MD Primary Care Provider + [phone] Blair Paris MD Unavailable +[phone] Jose A Espinosa MD Unavailable [phone] Darwin Marti MD Primary Care Provider +[phone] Hao Silvestre MD Unavailable +[phone] Carlos Dailey MD Unavailable Saida Mckeon APRN, COATING ENGINEER Unavailable Jessenia Ward APRN, J2EE ANDROID DEVELOPER Unavailable + [phone] Hao Silvestre MD Unavailable +[phone] Dominic Wang MD Unavailable [phone] Butch Muñiz MD Unavailable +[phone] Reason for Visit * Reason Comments Medication Refill Encounter Details Date Type Department Care Team (Late st Contact Info) Description 02/15/2020 Refill [facility] MEDICAL [facility] [address] [place] [address] Luann Cox MD [address] [place] [address] Medication Refill Social History Tobacco [...] 9:30 AM CDT [facility] #2 [place] [address] Jessenia Ward APRN, J2EE ANDROID DEVELOPER #2 [place] [address] 03/09/2025 2:30 PM CDT Office Visit [facility] Family Medicine [facility] #2 [place] [address] Juan Shrestha MD #[address] [address] documented as of this encounter Visit Diagnoses Diagnosis History of arthroscopy of left shoulder documented in this encounter Additional Health Concerns Infection Onset Date Last Indicated Resolved Time ESBL 08/16/2018 08/16/2018 09/28/2023 9:03 AM CDT COVID - 19 03/09/2023 03/09/2023 03/19/2023 12:1 6 AM CDT Respiratory Rule-Out 03/09/2023 03/09/2023 023 2:09 AM CDT COVID - 19 05/07/2023 05/07/2023 05/07/2023 9:50 AM POURING CRANE OPERATOR COVID - 19 Confirmed 05/07/2023 05/07/2023 023 12:16 AM POURING CRANE OPERATOR C. difficile Rule-Out 09/24/2023 09/24/20232023 3:41 PM CDT COVID - 19 09/24/2023 09/24/2023 09/24/2023 11:3 2 AM CDT C. difficile Rule-Out 09/27/2023 09/27/20232023 2:13 PM CDT COVID - 19 02/23/2024 02/23/2024 02/23/2024 11:2 8 AM CDT Respiratory Rule-Out 02/23/2024 02/23/2024 024 11:30 AM CDT Assessment Noted Time PHQ-9 Depression Total Score: 2 07/14/19 20 10:00 AM POURING CRANE OPERATOR documented as of this encounter Care Teams Display Designer Outside Relationship Specialty Start Date End Date Luann Cox MD PCP - General Family Medicine 04/15/15 11/02/22 Josiane Pacheco MD [address] [place] [address] PCP - General Family Medicine 11/20/22 07/30/23 Darwin Marti MD [address] [place] [address] PCP - General Internal Medicine 07/31/23 Blair Paris MD 4 [facility] [address] [place] [address] Consulting Physician Orthopaedic Sports Medicine 07/31/23 Jose A Espinosa MD 2 [facility] [address] [place] [address] Consulting Physician Pain Medicine-Pain Management 07/31/23 02/08/24 Hao Silvestre MD [address] [address] Consulting Physician Neurological Surgery 07/31/23 Carlos Dailey MD #2 [facility] [address] [place] [address] Consulting Physician Colon and Rectal Surgery 10/26/23 Saida Mckeon APRN, COATING ENGINEER #2 [place] [address] Nurse Practitioner Gastroenterology 10/26/23 Jessenia Ward APRN, [facility] #2 [place] [address] Nurse Practitioner Neurology 11/17/23 Hao Silvestre MD [address] [address] Consulting Physician Neurological Surgery 02/09/2401/27 Dominic Wang MD [address] [address] Consulting Physician Pain Medicine-Pain Management 02/09/24 Butch Muñiz MD #2 [place] [address] Consulting Physician Neurology 02/23/24 documented as of this encounter
--- OUTSIDE RECORDS SUMMARY | 2025-01-10 01:00 | XMS_ITS | Encounter Summary ---
Author Organization [facility] Address [address] [place] [address] Phone Care Team Providers Care Juvenile Corrections Officer Name Role Phone Luann Cox MD Primary Care Provider + [phone] Josiane Pacheco MD Primary Care Provider + [phone] Blair Paris MD Unavailable +[phone] Jose A Espinosa MD Unavailable +[phone] Darwin Marti MD Primary Care Provider +[phone] Hao Silvestre MD Unavailable +[phone] Carlos Dailey MD Unavailable Saida Mckeon APRN, FINANCIAL SERVICES AUDITOR Unavailable Jessenia Ward APRN, REGISTERED NURSE AMBULATORY Unavailable + [phone] Hao Silvestre MD Unavailable +[phone] Dominic Wang MD Unavailable +[phone] Butch Muñiz MD Unavailable +[phone] Reason for Visit * Reason Comments Medication Refill Encounter Details Date Type Department Care Team (Late st Contact Info) Description 01/01/2022 [facility]ill [facility] - Primary Care - [place] [address] [place] [phone] Luann Cox MD [address] [place] [address] Medication Refill Social History Tobacco [...] Dept 12/16/21 Office Visit [facility] 06/27/21 Office Visit Luann Cox MD [facility] [place] [facility] 03/07/21 Office Visit Luann Cox MD [facility] Showing recent visits within past 365 [...] Dept 12/16/21 Office Visit Luann Cox MD [facility] [place] [facility] 06/27/21 Office Visit Luann Cox MD [facility] [place] [facility] 03/07/21 Office Visit Luann Cox MD [facility] [place] [facility] Showing recent visits within past 365 [...] Dept 12/16/21 Office [facility] 06/27/21 Office Visit [facility] 03/07/21 Office Visit [facility] [employer] Showing recent visits within past 365 days [...] Dept 12/16/21 Office [facility] [employer] 06/27/21 Office Visit Luann Cox MD [facility] 03/07/21 Office Visit Luann Cox MD [facility] [place] [facility] Showing recent visits within past 365 [...] Dept 12/16/21 Office [facility] 06/27/21 Office Visit Luann Cox MD [facility] [place] [facility] 03/07/21 Office Visit Luann Cox MD [facility] [place] [facility] Showing recent visits within past 365 [...] Description 02/20/2025 9:30 AM CDT Office Visit [facility] Neurology [facility] [address] [place] [address] Jessenai Ward APRN, REGISTERED NURSE AMBULATORY [address] [place] [address] 03/09/2025 2:30 PM CDT Office Visit [facility] Family Medicine [facility] [address]2 [place] [address] Juan Shrestha MD #[address] [address] documented as of this encounter Visit Diagnoses [...] - 19 05/07/2023 05/07/2023 05/07/2023 9:50 AM WIRE STRAIGHTENER COVID - 19 Confirmed 05/07/2023 05/07/2023 023 12:16 AM WIRE STRAIGHTENER C. difficile Rule-Out 09/24/2023 09/24/20232023 3:41 PM CDT COVID - 19 09/24/2023 09/24/2023 09/24/2023 11:3 2 AM CDT C. difficile Rule-Out 09/27/2023 09/27/20232023 2:13 PM CDT COVID - 19 02/23/2024 02/23/2024 02/23/2024 11:2 8 AM CDT Respiratory Rule-Out 02/23/2024 02/23/2024 024 11:30 AM CDT Assessment Noted Time PHQ-9 Depression Total Score: 2 07/14/19 20 10:00 AM WIRE STRAIGHTENER documented as of this encounter Care Teams Juvenile Corrections Officer Relationship Specialty Start Date End Date Luann Cox MD PCP - General Family Medicine 04/15/15 11/02/22 Josiane Pacheco MD [address] [place] [address] PCP - General Family Medicine 11/20/22 07/30/23 Darwin Marti MD [address] [place] [address] PCP - General Internal Medicine 07/31/23 Blair Paris MD 4 [facility] [address] [place] [address] Consulting Physician Orthopaedic Sports Medicine 07/31/23 Jose A Espinosa MD 2 [facility] [address] [place] [address] Consulting Physician Pain Medicine-Pain Management 07/31/23 02/08/24 Hao Silvestre MD [address] [place] [address] Consulting Physician Neurological Surgery 07/31/23 Carlos Dailey MD [address] [address] Consulting Physician Colon and Rectal Surgery 10/26/23 Saida Mckeon APRN, FINANCIAL SERVICES AUDITOR [address] [place] [address] Nurse Practitioner Gastroenterology 10/26/23 Jessenia Ward APRN, REGISTERED NURSE AMBULATORY [address] [place] [address] Nurse Practitioner Neurology 11/17/23 Hao Silvestre MD [address] [address] Consulting Physician Neurological Surgery 02/09/2401/27 Dominic Wang MD [address] [address] Consulting Physician Pain Medicine-Pain Management 02/09/24 Butch Muñiz MD #2 [place] [address] Consulting Physician Neurology 02/23/24 documented as of this encounter
--- OUTSIDE RECORDS SUMMARY | 2025-01-10 01:00 | XMS_ITS | Encounter Summary ---
Author Organization [facility] Address [address] [place] [address] Phone Care Team Providers Care Certifier Name Role Phone Luann Cox MD Primary Care Provider + [phone] Josiane Pacheco MD Primary Care Provider + [phone] Blair Paris MD Unavailable +[phone] Jose A Espinosa MD Unavailable +[phone] Darwin Marti MD Primary Care Provider +[phone] Hao Silvestre MD Unavailable +[phone] Carlos Dailey MD Unavailable Saida Mckeon APRN, DOPE DRY HOUSE OPERATOR Unavailable Jessenia Ward APRN, COMMERCIAL PORTFOLIO MANAGER Unavailable +- [phone] Hao Silvestre MD Unavailable +[phone] Dominic Wang MD Unavailable [phone] Butch Muñiz MD Unavailable +[phone] Reason for Visit * Reason Comments Medication Refill Encounter Details Date Type Department Care Team ([facility] Contact Info) Description 12/12/2021 Refill [facility] Primary Care [facility] [address] [place] [phone] Luann Cox MD [address] [place] [address] Medication Refill Social History Tobacco [...] Care Team ([facility] Contact Info) Description 02/20/2025 9:30 AM CDT Office Visit [facility] [place] [address] Jessenia Ward APRN, COMMERCIAL PORTFOLIO MANAGER [address] [place] [address] 03/09/2025 2:30 PM CDT Office Visit [facility] - Family Medicine [facility] [address] [place] [address] Juan Shrestha MD [address] [address] documented as of this encounter Visit Diagnoses Diagnosis Essential hypertension Unspecified essential hypertension documented in this encounter Additional Health Concerns Infection Onset Date Last Indicated Resolved Time ESBL 08/16/2018 08/16/2018 09/28/2023 9:03 AM CDT COVID - 19 03/09/2023 03/09/2023 03/19/2023 12:1 6 AM CDT Respiratory Rule-Out 03/09/2023 03/09/2023 023 2:09 AM CDT COVID - 19 05/07/2023 05/07/2023 05/07/2023 9:50 AM HEALTH CARE RECRUITER COVID - 19 Confirmed 05/07/2023 05/07/2023 023 12:16 AM HEALTH CARE RECRUITER C. difficile Rule-Out 09/24/2023 09/24/20232023 3:41 PM CDT COVID - 19 09/24/2023 09/24/2023 09/24/2023 11:3 2 AM CDT C. difficile Rule-Out 09/27/2023 09/27/20232023 2:13 PM CDT COVID - 19 02/23/2024 02/23/2024 02/23/2024 11:2 8 AM CDT Respiratory Rule-Out 02/23/2024 02/23/2024 024 11:30 AM CDT Assessment Noted Time PHQ-9 Depression Total Score: 2 01/16/20 20 10:00 AM HEALTH CARE RECRUITER documented as of this encounter Care Teams Certifier Relationship Specialty Start Date End Date Luann Cox MD PCP - General Family Medicine 04/15/15 11/02/22 Josiane Pacheco MD [address] [place] [address] PCP - General Family Medicine 11/20/22 07/30/23 Darwin Marti MD [address] [place] [address] PCP - General Internal Medicine 07/31/23 Blair Paris MD 4 [facility] [address] [place] [address] Consulting Physician Orthopaedic Sports Medicine 07/31/23 Jose A Espinosa MD [address] [address] Consulting Physician Pain Medicine-Pain Management 07/31/23 02/08/24 Hao Silvestre MD [address] [address] Consulting Physician Neurological Surgery 07/31/23 Carlos Dailey MD #[address] [address] Consulting Physician Colon and Rectal Surgery 10/26/23 Saida Mckeon APRN, DOPE DRY HOUSE OPERATOR #[address] [place] [address] Nurse Practitioner Gastroenterology 10/26/23 Jessenia Ward APRN, COMMERCIAL PORTFOLIO MANAGER [address] [place] [address] Nurse Practitioner Neurology 11/17/23 Hao Silvestre MD [address] [address] Consulting Physician Neurological Surgery 02/09/2401/27 Dominic Wang MD [address] [address] Consulting Physician Pain Medicine-Pain Management 02/09/24 Butch Muñiz MD #2 [place] [address] Consulting Physician Neurology 02/23/24 documented as of this encounter
--- OUTSIDE RECORDS SUMMARY | 2025-01-10 01:00 | XMS_ITS | Encounter Summary ---
Author Organization [facility] Address [address] [place] [address] Phone Care Team Providers Care Emergency Department Aide Name Role Phone Blair Paris MD Unavailable +[phone] Jose A Espinosa MD Unavailable +[phone] Darwin Marti MD Primary Care Provider +[phone] Hao Silvestre MD Unavailable [phone] Carlos Dailey MD Unavailable Saida Mckeon APRN, DESIGN DRAFTER CHIEF Unavailable Jessenia Ward APRN, [facility] Unavailable + [phone] Hao Silvestre MD Unavailable +[phone] Dominic Wang MD Unavailable [phone] Butch Muñiz MD Unavailable [phone] Reason for Visit * Reason Comments Medication Refill Encounter Details Date Type Department Care Team (Late Contact Info) Description 09/08/2023 Refill [facility] - Primary Care - [place] [address] [place] [address] Josiane Pacheco MD [address] [place] [address] Medication Refill Social History Tobacco Use Types [...] [facility] Neurology - [place] [address] [place] [phone] Jessenia Ward APRN, BENEFITS TECHNICIAN #[address] [place] [address] 03/09/2025 2:30 PM CDT Office Visit [facility] - Family Medicine [facility] #2 [place] [address] Juan Shrestha MD #[address] [address] documented as of this encounter Visit Diagnoses [...] Depression Total Score: 0 07/31/19 12:53 PM WOMEN NURSE documented as of this encounter Care Teams Emergency Department Aide Relationship Specialty Start Date End Date Darwin Marti MD [address] [place] [address] PCP - General Internal Medicine 07/31/23 Blair Paris MD 4 [facility] [address] [place] [address] Consulting Physician Orthopaedic Sports Medicine 07/31/23 Jose A Espinosa MD 2 [facility] [address] [place] [address] Consulting Physician Pain Medicine-Pain Management 07/31/23 02/08/24 Hao Silvestre MD [address] [place] [address] Consulting Physician Neurological Surgery 07/31/23 Carlos Dailey MD #[address] [facility] [address] [address] Consulting Physician Colon and Rectal Surgery 10/26/23 Saida Mckeon APRN, DESIGN DRAFTER CHIEF #[address] [place] [address] Nurse Practitioner Gastroenterology 10/26/23 Jessenia Ward APRN, BENEFITS TECHNICIAN #[address] [place] [address] Nurse Practitioner Neurology 11/17/23 Hao Silvestre MD [address] [place] [address] Consulting Physician Neurological Surgery 02/09/2401/27 Dominic Wang MD [address] [address] Consulting Physician Pain Medicine-Pain Management 02/09/24 Butch Muñiz MD #[address] [place] [address] Consulting Physician Neurology 02/23/24 documented as of this encounter
--- OUTSIDE RECORDS SUMMARY | 2025-01-10 01:00 | XMS_ITS | Encounter Summary ---
Author Organization [facility] Address [address] [place] [address] Phone Care Team Providers Care Manager Basketball Name Role Phone Luann Cox MD Primary Care Provider + [phone] Josiane Pacheco MD Primary Care Provider + [phone] Blair Paris MD Unavailable [phone] Jose A Espinosa MD Unavailable [phone] Darwin Marti MD Primary Care Provider +[phone] Hao Silvestre MD Unavailable +[phone] Carlos Dailey MD Unavailable Saida Mckeon APRN, CIVIL STRUCTURAL ENGINEER Unavailable Jessenia Ward APRN, KEYBOARD INSTRUMENT REPAIRER Unavailable + [phone] Hao Silvestre MD Unavailable +[phone] Dominic Wang MD Unavailable [phone] Butch Muñiz MD Unavailable +[phone] Reason for Visit * Reason Comments Medication Refill Encounter Details Date Type Department Care Team (Late st Contact Info) Description 01/21/2020 Refill [facility] [place] [address] [place] [phone] Luann Cox MD [address] [place] [address] Medication Refill Social History Tobacco [...] Outpatient Visits 6 months ago Essential hypertension [facility] - Luann Torres MD 1 year ago Essential hypertension [facility] - Luann Torres MD 1 year ago Syncope, unspecified syncope type [facility] - Luann Torres MD 1 year ago Sore throat [facility] - Luann Torres MD 1 year ago Essential hypertension [facility] - Luann Torres MD Upcoming Appointments Future Appointments Tomorrow SAHCUSTECH2; SAHCUS1 [facility] Ultrasound, [facility] In 1 week SAHCMAM1 [facility] Mammography, [facility] In 1 week SAHCUSTECH2; SAHCUS1 [facility] Ultrasound, [facility] In 3 months SAHCMR1 [facility] MRI, [facility] In 5 months Lab, [place] [facility] [address] In 5 months Luann Cox MD [facility] [address] POWER TONG OPERATOR - Recent and Past Visits Recent Visits Date Type Provider Dept 01/12/20 [facility] 07[facility] [place] 01/11/19 Office Visit Luann Cox MD [facility] Showing recent visits within past [...] Outpatient Visits 6 months ago Essential hypertension [facility] - Luann Torres MD 1 year ago Essential hypertension [facility] - Luann Torres MD 1 year ago Syncope, unspecified syncope type [facility] - Luann Torres MD 1 year ago Sore throat [facility] - Luann Torres MD 1 year ago Essential hypertension [facility] - Luann Torres MD Upcoming Appointments Future Appointments Tomorrow SAHCUSTECH2; SAHCUS1 [facility] Ultrasound, [facility] In 1 week SAHCMAM1 [facility] Mammography, [facility] In 1 week SAHCUSTECH2; SAHCUS1 [facility] Ultrasound, [facility] In 3 months [facility] In 5 months Lab, [place] [facility] [address] In 5 months Luann Cox MD [facility] [address] POWER TONG OPERATOR - Recent and Past Visits Recent Visits Date Type Provider Dept 01/12/20 Office Visit Luann Cox MD [facility] [address] 07/14/19 Office Visit Lu[facility] MD [facility] 01/11/19 Office Visit [facility] [place] Showing recent visits within past [address] [...] 02/20/2025 9:30 AM CDT Office Visit [facility] Neurology - [place] [address] [place] [address] Jessenia Ward APRN, [facility] #[address] [place] [address] 03/09/2025 2:30 PM CDT [facility] Visit [facility] - Family [facility] #[address] [place] [address] Juan Shrestha MD [address] [address] documented as of this encounter Visit Diagnoses Diagnosis Hyperlipidemia, unspecified hyperlipidemia type documented in this encounter Additional Health Concerns Infection Onset Date Last Indicated Resolved Time ESBL 08/16/2018 08/16/2018 09/28/2023 9:03 AM CDT COVID - 19 03/09/2023 03/09/2023 03/19/2023 12:1 6 AM CDT Respiratory Rule-Out 03/09/2023 03/09/2023 023 2:09 AM CDT COVID - 19 05/07/2023 05/07/2023 05/07/2023 9:50 AM BACKUP ADMINISTRATOR COVID - 19 Confirmed 05/07/2023 05/07/2023 023 12:16 AM BACKUP ADMINISTRATOR C. difficile Rule-Out 09/24/2023 09/24/20232023 3:41 PM CDT COVID - 19 09/24/2023 09/24/2023 09/24/2023 11:3 2 AM CDT C. difficile Rule-Out 09/27/2023 09/27/20232023 2:13 PM CDT COVID - 19 02/23/2024 02/23/2024 02/23/2024 11:2 8 AM CDT Respiratory Rule-Out 02/23/2024 02/23/2024 024 11:30 AM CDT Assessment Noted Time PHQ-9 Depression Total Score: 2 07/14/19 20 10:00 AM BACKUP ADMINISTRATOR documented as of this encounter Care Teams Manager Basketball Relationship Specialty Start Date End Date Luann Cox MD PCP - General Family Medicine 04/15/15 11/02/22 Josiane Pacheco MD [address] [place] [address] PCP - General Family Medicine 11/20/22 07/30/23 Darwin Marti MD [address] [place] [address] PCP - General Internal Medicine 07/31/23 Blair Paris MD 4 [facility] [address] [place] [address] Consulting Physician Orthopaedic Sports Medicine 07/31/23 Jose A Espinosa MD [address] [address] Consulting Physician Pain Medicine-Pain Management 07/31/23 02/08/24 Hao Silvestre MD [address] [address] Consulting Physician Neurological Surgery 07/31/23 Carlos Dailey MD #[address] [address] Consulting Physician Colon and Rectal Surgery 10/26/23 Saida Mckeon APRN, CIVIL STRUCTURAL ENGINEER #[address] [place] [address] Nurse Practitioner Gastroenterology 10/26/23 Jessenia Ward APRN, KEYBOARD INSTRUMENT REPAIRER #[address] [place] [address] Nurse Practitioner Neurology 11/17/23 Hao Silvestre MD [address] [address] Consulting Physician Neurological Surgery 02/09/2401/27 Dominic Wang MD [address] [address] Consulting Physician Pain Medicine-Pain Management 02/09/24 Butch Muñiz MD #2 [place] [address] Consulting Physician Neurology 02/23/24 documented as of this encounter
--- OUTSIDE RECORDS SUMMARY | 2025-01-10 01:00 | XMS_ITS | Encounter Summary ---
Author Organization [facility] Address [address] [place] [address] Care Team Providers Care Carding Machine Feeder Name Role Phone Luann Cox MD Primary Care Provider [phone] Ana Hassan Unavailable [phone] Darwin Marti MD Primary Care Provider + [phone] Kirstie Unger MA Unavailable [phone] Encounter Details Date Type Department Care Team (Late st Contact Info) Description 10/19/2021 Ophth Exam [facility] [address] [place] [phone] Brielle Howe MD [address] [place] [address] [place] [address] Social History Tobacco Use Types [...] on filedocumented in this encounter Care Teams Carding Machine Feeder Relationship Specialty Start Date End Date Luann Cox MD PCP - General Family Medicine 05/06/21 10/26/23 Darwin Marti MD [address] [place] [address] PCP - General Internal Medicine 10/27/23 Ana Hassan Care Coordination Specialist Care Management 10/27/23 10/27/23 Kirstie Unger MA Care Coordination Specialist 10/21/24 10/24/24 documented as of this encounter
--- OUTSIDE RECORDS SUMMARY | 2025-01-10 01:00 | XMS_ITS | Encounter Summary ---
Author Organization [facility] Address [address] [place] [address] Phone Care Team Providers Care Vehicle Fare Collector Name Role Phone Luann Cox MD Primary Care Provider + [phone] Josiane Pacheco MD Primary Care Provider + [phone] Blair Paris MD Unavailable [phone] Jose A Espinosa MD Unavailable [phone] Darwin Marti MD Primary Care Provider [phone] Hao Silvestre MD Unavailable [phone] Carlos Dailey MD Unavailable Saida Mckeon APRN, DIRECTOR INPATIENT HEADACHE PROGRAM Unavailable Jessenia Ward APRN, ROOFING LAYER Unavailable + [phone] Hao Silvestre MD Unavailable [phone] Dominic Wang MD Unavailable [phone] Butch Muñiz MD Unavailable +[phone] Reason for Visit * Reason Comments Medication Refill Encounter Details Date Type Department Care Team (Late st Contact Info) Description 04/29/2022 Refill [facility] - Primary Care - [place] [address] [place] [id number] Luann Cox MD [address] [place] [address] Medication Refill Social History Tobacco [...] Dept 12/16/21 Office Visit [facility] [employer] [facility] 06/27/21 Office Visit Luann Cox MD [facility] [employer] [facility] Showing recent visits within past 365 days and meeting all other requirements Future Appointments Date Type Provider Dept 05/23/22 Appointment Lab[facility] [place] [facility] [employer] [facility] 05/29/22 Appointment Luann Cox MD [facility] [employer] [facility] Showing future appointments within next [...] Dept 12/16/21 Office Visit Luann Cox MD [facility] [employer] [facility] 06/27/21 Office Visit Luann Cox MD [facility] [employer] [facility] Showing recent visits within past 365 days and meeting all other requirements Future Appointments Date Type Provider Dept 05/23/22 Appointment Lab[facility] [place] [facility] [employer] [facility] 05/29/22 Appointment Luann Cox MD [facility] [employer] [facility] Showing future appointments within next [...] Dept 12/16/21 Office Visit [facility] 06/27/21 Office Visit Luann Cox MD [facility] Showing recent visits within past 365 days and meeting all other requirements Future Appointments Date Type Provider Dept 05/23/22 Appointment [facility] [place] [facility] 05/29/22 Appointment Luann Cox MD [facility] Showing future appointments within next 90 days [...] Dept 12/16/21 Office Visit [facility]ann Cox MD [facility] 06/27/21 Office Visit Luann Cox MD [facility] Showing recent visits within past 365 days and meeting all other requirements Future Appointments Date Type Provider Dept 05/23/22 [facility] [place] [facility] 05/29/22 Appointment Luann Cox MD [facility] [address] Showing future appointments within next 90 days and meeting all other requirements documented in this encounter Plan of Treatment Upcoming Encounters Date Type Department Care Team (Late st Contact Info) Description 02/20/2025 9:30 AM CDT [facility] [address] [place] [address] Jessenia Ward APRN, ROOFING LAYER [address] [place] [address] 03/09/2025 2:30 PM CDT Office Visit [facility] Family Medicine - [place] [address] [place] [address] Juan Shrestha MD [address] [address] documented as of this encounter Visit Diagnoses [...] 19 05/07/2023 05/07/2023 05/07/2023 9:50 AM CORPORATE REAL ESTATE SPECIALIST COVID - 19 Confirmed 05/07/2023 05/07/2023 023 12:16 AM CORPORATE REAL ESTATE SPECIALIST C. difficile Rule-Out 09/24/2023 09/24/20232023 3:41 PM CDT COVID - 19 09/24/2023 09/24/2023 09/24/2023 11:3 2 AM CDT C. difficile Rule-Out 09/27/2023 09/27/20232023 2:13 PM CDT COVID - 19 02/23/2024 02/23/2024 02/23/2024 11:2 8 AM CDT Respiratory Rule-Out 02/23/2024 02/23/2024 024 11:30 AM CDT Assessment Noted Time PHQ-9 Depression Total Score: 2 07/14/19 20 10:00 AM CORPORATE REAL ESTATE SPECIALIST documented as of this encounter Care Teams Vehicle Fare Collector Relationship Specialty Start Date End Date Luann Cox MD PCP - General Family Medicine 04/15/15 11/02/22 Josiane Pacheco MD [address] [place] [address] PCP - General Family Medicine 11/20/22 07/30/23 Darwin Marti MD [address] [place] [address] PCP - General Internal Medicine 07/31/23 Blair Paris MD 4 [facility] [address] [place] [address] Consulting Physician Orthopaedic Sports Medicine 07/31/23 Jose A Espinosa MD 2 [facility] [address] [place] [address] Consulting Physician Pain Medicine-Pain Management 07/31/23 02/08/24 Hao Silvestre MD [address] [address] Consulting Physician Neurological Surgery 07/31/23 Carlos Dailey MD #2 [facility] [address] [place] [address] Consulting Physician Colon and Rectal Surgery 10/26/23 Saida Mckeon APRN, [facility] [address] [place] [address] Nurse Practitioner Gastroenterology 10/26/23 Jessenia Ward APRN, ROOFING LAYER [address] [place] [address] Nurse Practitioner Neurology 11/17/23 Hao Silvestre MD [address] [address] Consulting Physician Neurological Surgery 02/09/2401/27 Dominic Wang MD [address] [address] Consulting Physician Pain Medicine-Pain Management 02/09/24 Butch Muñiz MD [address] [place] [address] Consulting Physician Neurology 02/23/24 documented as of this encounter
--- OUTSIDE RECORDS SUMMARY | 2025-01-10 01:00 | XMS_ITS | Clinical Summary ---
Author Organization [facility] Address [address] [place] [address] Phone Care Team Providers Care Fiscal Agent Name Role Phone Blair Paris MD Unavailable [phone] Darwin Marti MD Primary Care Provider [phone] Hao Silvestre MD Unavailable [phone] Carlos Dailey MD Unavailable Saida Mckeon APRN, RELAY MOTORMAN Unavailable Jessenia Ward APRN, ADMINISTRATOR OF HOME HEALTH Unavailable + [phone] Dominic Wang MD Unavailable [phone] Butch Muñiz MD Unavailable [phone] Allergies Active Allergy Reactions Criticality Noted Date Comments Cephalosporins Rash Medium 02/08/2020 Codeine Unknown Meperidine Hives 06/15/2015 Fish Allergy Unknown,Other (see Comments) 06/15/2015 Reaction: Unknown, Kiwi Extract Unknown 06/15/2015 Latex Itching 06/15/2015 Penicillins Unknown Cowley Extract Unknown 06/15/2015 Sulfa Antibiotics Unknown Tetanus Antitoxin Swelling 06/15/2015 Hydrocodone-Acetaminophen Vomiting 06/15/2015 Medications Vitamin D, Cholecalciferol, 25 MCG (1000 UT) Capsule Take 1,000 Units by mouth daily. 0 Active Multiple Vitamin (MULTIVITAMIN PO) Take 1 Tab by mouth daily. Active hydrOXYzine (VISTARIL) 25 MG CapsuleIndicatio ns:Vestibular migraine Take 1 Cap by mouth every 4 hours as needed (dizziness). 90 Cap 0 Active Calcium Carbonate (CALCIUM 600 PO) Take by mouth. Active albuterol 108 (90 Base) MCG/ACT Aerosol SolutionIndicati ons:Uncomplicate d asthma take 1 Puff by inhalation every 4 hours as needed for Wheezing. takes PRN, hasn't taken for several weeks 8.5 g 2 2 Active dicyclomine (BENTYL) 20 MG Tablet Take 1 Tablet by mouth every 6 hours. 30 Tablet 3 Active lisinopril (PRINIVIL, ZESTRIL) 10 MG TabletIndication s:Hypertension, essential Take 1 Tablet by mouth daily. 90 Tablet 3 4 Active gabapentin (NEURONTIN) 300 MG CapsuleIndicatio ns:Neuropathy TAKE 1 CAPSULE BY MOUTH THREE TIMES DAILY 270 Capsule 4 Active budesonide-formo terol fumarate (SYMBICORT) 160-4.5 MCG/ACT AerosolIndicatio ns:Uncomplicated asthma, unspecified asthma severity, unspecified whether persistent take 2 Puffs by inhalation 2 times daily. 30.6 g 3 5 Active clopidogrel (PLAVIX) 75 MG Tablet Take 1 tablet by mouth once daily 90 Tablet 2 5 Active meclizine (ANTIVERT) 25 MG Tablet Take 1 tablet by mouth three times daily as needed 270 Tablet 5 Active simvastatin (ZOCOR) 40 MG Tablet Take 1 tablet by mouth once daily 90 Tablet 1 5 Active pantoprazole (PROTONIX) 40 MG Tablet Delayed Response Take 1 tablet by mouth once daily 90 Tablet 3 5 Active cetirizine (EQ Allergy Relief, Cetirizine,) 10 MG Tablet Take 1 Tablet by mouth daily. 90 Tablet 3 5 Active traMADol (ULTRAM) 50 MG TabletIndication s:Costochondriti s, acute Take 1 Tablet by mouth every 6 hours as needed for Moderate or more severe pain. 12 Tablet 5 Active Additional Information Patient not taking.Reported on 11/08/2024 hydroCHLOROthiaz altaf (MICROZIDE) 12.5 MG CapsuleIndicatio ns:Hypertension, essential Take 1 capsule by mouth once daily 90 Capsule 5 Active meloxicam (MOBIC) 15 MG Tablet Take 1 Tablet by mouth daily. 90 Tablet 1 5 Active levothyroxine (SYNTHROID) 50 MCG TabletIndication s:Hypothyroidism (acquired) Take 1 tablet by mouth once daily 90 Tablet 5 Active Active Problems Problem Noted Date [...] Date Intractable abdominal pain 09/26/2023 0 02/09/2024 financial retirement plan specialist current use of 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 07/04/202207/31/2023 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 4 Seizure 06/27/2021 07/31/2023 GERD (gastroesophageal reflux disease) 03/28/202107/31/2023 Degenerative lumbar spinal stenosis 03/28/202107/3102/09/2024 Orbital lesion 03/07/2021 07/31/2023 Chest pain 11/20/2019 01/12/2020 Nausea and vomiting 11/20/2019 01/12/20 Syncope and collapse 11/20/2019 020 'Ynthc-flg-wcjbt' infant wit h signs of malnutrition 01/11/2019 01/11/2019 Acute cystitis without hematuria 08/16/2018 01/11/2019 Orthostatic dizziness 08/16/20182019 Hypothermia 08/16/2018 01/11/2019 Subacromial impingement of left shoulder 11/27/2017 12/01/2017 Arthritis of left acromioclavicular joint 11/27/2017 12/01/2017 Biceps tendonitis, left 11/27/2017 0610/2017 Pain in both lower extremities 03/18/2016 07/31/2023 Acute pyelonephritis 11/05/2015 016 Constipation - functional 07/10/2015 Gallbladder disorder 07/10/2015 016 Gastritis 03/18/2016 Overview (05/15/2015): Mild Encounters Date Type Department Care Team Description 12/07/2024 Refill [facility] - Primary Care - [place] [address] [place] [address] Darwin Marti MD Medication Refill 11/20/2024 Refill [facility] - Primary Care - [place] [address] [place] [address] Darwin Marti MD Medication Refill 11/15/2024 [facility] [place] [address] [place] [address] Cassie Lara APRN, RELAY MOTORMAN Medication Refill 11/08/2024 8:45 AM CDT Urgent Care Visit [facility] - [place] [address] [place] [address] Annetta Cherry HISTOPATHOLOGY TECHNICIAN, RELAY MOTORMAN Herpes zoster without complication (Primary Dx) Discharge Disposition: Discharged to home or Selfcare 11/08/2024 Travel 11/04/2024 9:25 AM CDT Ancillary Procedure [facility] Diagnostic Radiology - [place] [address] [place] [address] Salbador Guidry, PAC Acute chest wall pain Discharge Disposition: Discharged to home or Selfcare 11/04/2024 9:05 AM CDT Urgent [facility] [place] [address] [place] [address] Salbador Guidry, PAC Costochondritis, acute (Primary Dx); Acute chest wall pain Discharge Disposition: Discharged to home or Selfcare 11/04/2024 Travel 10/27/2024 Refill [facility]note 3[facility] - [place] [address] [place] [place] [address] Darwin Marti MD Medication Refill from Last [...] drink = 0.6 oz pur e alcohol) [facility] Utilities Answer Date Recorded In the past 12 months has [employer] electric, gas, oil, or water company threatened [...] often do you attend chur ch or tenriism services? Never 08/25/2024 Do you belong to any clubs o r organizations such as holiness groups, unions, fraternal or athletic groups, or [...] Total Score - Questions 1-9 0 07/31 [facility] - [...] in a detention (including now)? No 09/26/2023 Housing Stability Vital Sign Answer Matt e Recorded In the last 12 months, was t here a time when you were not able to pay the mortgage or rent on time? No 08/25/2024 Number of Times Moved in the Last Year Not on fi le 08/25/2024 At any time in the past 12 m [facility], were you homeless or living in a detention (including now)? No 08/25/2024 Sexually Active Control [...] 74.4 kg (164 lb) 08/25/2024 2:18 PM CABLE HOOKER Height 162.6 cm (5' 4) 08/25/2024 2:18 PM CABLE HOOKER Body Mass Index 28.15 08/25/2024 2:18 PM CABLE HOOKER Plan of Treatment Upcoming Encounters Date Type Department Care Team (Late st Contact Info) Description 02/20/2025 9:30 AM CDT Office Visit [facility] - Neurology - [place] [address] [place] [address] Jessenia Ward APRN, ADMINISTRATOR OF HOME HEALTH [address] [place] [address] 03/09/2025 2:30 PM CDT Office Visit [facility] - Family Medicine [facility] [address] [place] [address] Juan Shrestha MD #[address] [address] Health Maintenance Due Date Last Done Comments Zoster Immunization (2 of 3) 03/24/2013 01/27/2013 Respiratory Syncytial Virus (RSV) Immunization (Adult) (1 - 1-dose 75+ series) 01/15/2023 DEXA Bone Density 08/09/2023 08/09/2021, , 04/23/2017, Additional history exists SARS-COV-2 Immunization ( season) 2024 07/01/2021, 11/06/2020, 10/09/2020 Influenza Immunization (#1) 02/27/202502/28, 07/31/2023, 04/22/2022, Additional history exists Pneumococcal Immunization (50+ years) Completed 09/23/2016, 01/27/2013 Pneumococcal Immunization Combined Discontinued 09/23/2016, 01/27/2013 Mammogram Discontinued 03/08/2020, 01/28, 09/25/2016 Hepatitis C Virus (HCV) Screening Completed 07/31/2023 Immunochemical Fecal Occult Blood Discontinued 09/26/2023, 08/16/2018 Colonoscopy Discontinued 12/03/2023, 11/2023, 07/22/2012 Colorectal Cancer Screening Discontinued Cologuard Discontinued Hepatitis B Immunization Aged Out [...] Immunization Discontinued Medical Devices Implanted Type Area Translator Deaf Device Identifier Shelf Expiration Date Model / Serial / Lot Bsplt Tib Trthln 3 Kn Prm Beaded Prpt - [id number] Implanted:Qty: 1 on 06/27/2015 by Benji Dickey MD at [facility] IMPLANT Right: Knee [employer] / [employer] 01/27/2020 5526-B-30 0 / / [id number] Ins Tib 3 9mm Kn X3 Cndrl Stab Trthln - [id number] Implanted:Qty: 1 on 06/27/2015 by [facility] IMPLANT Right: Knee [employer] 01/27/2020 5531-G-30 9 / / [id number] Bioinductive Arthroscopic Generation 3 Medium - [id number] Implanted:Qty: 1 on 11/30/2017 by Blair Paris MD at [facility] IMPLANT Left: Shoulder [employer] 10/27/2019 2169-2 / 2169-2 / [id number] Tendon Staple Implant - [id number] Implanted:Qty: 1 on 11/30/2017 by Blair Paris MD at [facility] IMPLANT Left: Shoulder [employer] 05/18/2018 2504-1 / 2504-1 / [id number] Lithia Bone 3 W/Arthroscopic Delivery System - [id number] Implanted:Qty: 1 on 11/30/2017 by Blair Paris MD at [facility] IMPLANT Left: Shoulder [employer] 06/30/2018 2503-A / 2503-A / [id number] Asym Metal Backed Patella Implanted:Qty: 1 on 06/27/2015 by Benji Dickey MD at [facility] Right: Knee [employer] 11/26/2019 [id number] / / [id number] Cruciate Retaining Femoral Implanted:Qty: 1 on 06/27/2015 by Benji Dickey MD at [facility] Right: Knee [employer] / [employer] 04/03/2020 / / [id number] Procedures Procedure Name Priority Date/Time Associated Diagnosis Comments OUTPATIENT ABO & RH W/ ANTIBODY SCREEN 12/29/2024 12:00 AM CDT PROTIME (PT) (PROTHROMBIN TIME) 12/29/2024 12:00 AM CDT URINALYSIS (UA) RANDOM 12/29/2024 12:00 AM CDT COMPLETE BLOOD COUNT (CBC) WITH DIFF 12/29/2024 12:00 AM CDT APTT (PTT) 12/29/2024 12:00 AM CDT BASIC METABOLIC PANEL W/ CALCIUM TOTAL 12/29/2024 12:00 AM CDT CULTURE, URINE 12/29/2024 12:00 AM CDT XR CHEST 2 VIEWS Stat with Interpretation 11/04/2024 9:33 AM CDT Acute chest wall pain STOOL, OCCULT BLOOD, DIAGNOSTIC, VIA GUAIAC STAT 09/26/2023 11:05 AM CDT HEPATITIS C ANTIBODY Routine 07/31/2023 1:37 PM CABLE HOOKER Encounter for hepatitis C screening test for low risk patient [facility] BONE DENSITOMETRY AXIAL SKELETON Routine 08/09/2021 9:35 AM CABLE HOOKER Postmenopausal [facility] DIAG BILATERAL DIGITAL W CAD W BRI Routine 03/08/2020 11:00 AM CDT Encounter for screening mammogram for breast cancer Abnormal mammogram COLONOSCOPY Routine 07/22/2012 from Last 3 Months or Most Recently Relevant to Health Maintenance Results * URINALYSIS (UA) RANDOM (12/29/2024 12:00 AM CDT) 12/29/2024 us Provider Scan URINE ORDERABLES Final Result Performing Organization Address City/[facility] Co de Phone Number SCAN * APTT (PTT) (12/29/2024 12:00 AM CDT) 12/29/2024 us Provider Scan HEMATOLOGY ORDERABLES Final Resu lt SCAN * PROTIME (PT) (PROTHROMBIN TIME) (12/29/2024 12:00 AM CDT) INR 0.9 SCAN 12/29/2024 us Provider Scan HEMATOLOGY ORDERABLES Final Resu lt Performing Organization Address [facility] de Phone Number SCAN * OUTPATIENT ABO & RH W/ ANTIBODY SCREEN (12/29/2024 12:00 AM CDT) 12/29/2024 us Provider Scan BLOOD BANK ORDERABLES Final Resu lt Performing Organization Address [facility] Phone Number SCAN * CULTURE, URINE (12/29/2024 12:00 AM CDT) 12/29/2024 us Provider Scan MICROBIOLOGY - GENERAL ORDERABLE S Final Result Performing Organization [facility] Phone Number SCAN * COMPLETE BLOOD COUNT (CBC) WITH DIFF (12/29/2024 12:00 AM CDT) 12/29/2024 us Provider Scan HEMATOLOGY ORDERABLES Final Resu lt Performing Organization Address [facility] de Phone Number SCAN * BASIC METABOLIC PANEL W/ CALCIUM TOTAL (12/29/2024 12:00 AM CDT) 12/29/2024 us Provider Scan CHEMISTRY ORDERABLES Final Resul t Performing Organization Address [facility] Phone Number SCAN * XR CHEST 2 VIEWS (11/04/2024 9:33 [...] Anh Garcia D.O. PS: PS Report ID: [id number] Reading Location: [id number] Procedure Note Anh Garcia DO - 11/04/2024 [...] Anh Garcia D.O. PS: PS Report ID: [id number] Reading Location: [id number] IMPRESSION: Mildly hyperinflated lungs without definite evidence of acute cardiopulmonary process. Cardiomegaly. Hiatal hernia. Salbador Guidry [facility] DIAGNOSTIC ORDERABLES Fin al Result * Stool, Occult Blood, Diagnostic (09/26/2023 11:05 AM CDT) OCCULT BLOOD DIAG Negative Negative 09/26/2023 11:15 AM CDT [facility] Stool STOOL SPECIMEN / Unknown Non-Phlebotomy Collection / Unknown 09/26/2023 11:05 AM CDT 09/26/2023 11:12 AM CDT us Roque Hunter APRN, CNP BODY FLUIDS & STOOLS OR DERABLES Final Result Performing Organization Address City/[facility]/ZIP Co de Phone Number [facility] [address] [place] [address] * HEPATITIS C ANTIBODY (07/31/2023 1:37 PM CABLE HOOKER) hepatitis C antibody 0.06 <1 S/[facility] ARCH [id number] B 07/31/2023 9:41 PM CABLE HOOKER [facility] Comment: Signal/Cutoff ratio < 0.79 is Nondetected Signal/Cutoff ratio 0.80-0.99 is Grayzone Signal/Cutoff ratio > 0.99 is Detected Supplemental assays are recommended if signal/cutoff ratio is >/=1.00. Signal/cutoff ratio result >/= 5.00 is 97% predictive of positivity for recombinant immunoblot assay (RIBA) and will be reported to the [place] Department of Public Health as required. Blood Venipuncture / Unknown 07/31/2023 1:37 PM CABLE HOOKER 07/31/2023 1:37 PM CABLE HOOKER us Darwin Marti MD CHEMISTRY ORDERABLES Sindhu l Result Performing Organization Address [facility] de Phone Number [facility] [address] [place] [address], * [facility] BONE DENSITOMETRY AXIAL SKELETON (08/09/2021 9:35 AM CABLE HOOKER) Anatomical Region Laterality Modality BODY N/A Other 08/09/2021 10:0 9 AM CABLE HOOKER Impressions 08/09/2021 10:12 AM CABLE HOOKER IMPRESSION: Low bone mass Fracture risk assessment [...] of Osteoporosis (http://www.nof.org/professionals/clinical-guidelines) Narrative 08/09/2021 10:12 AM CABLE HOOKER EXAM DESCRIPTION: JAMIE BONE DENSITOMETRY AXIAL SKELETON REASON FOR STUDY: 71 y/o year old F with given history of screening. Translator Deaf/Model: [employer] (S/N [id number]) CLINICAL INFORMATION: Current height: 5 foot 3.5 [...] Blair Alcaraz M.D. AG: RHIANNON Report ID: [id number] Reading Location: [place] [address] Procedure Note Blair Alcaraz MD - 08/09/2021 EXAM DESCRIPTION: JAMIE BONE DENSITOMETRY AXIAL SKELETON REASON FOR STUDY: 71 y/o year old F with given history of screening. Translator Deaf/Model: [employer] (S/N [id number]) CLINICAL INFORMATION: Current height: 5 foot 3.5 [...] Blair Alcaraz M.D. AG: RHIANNON Report ID: [id number] Reading Location: [place] [address] IMPRESSION: Low bone mass Fracture risk assessment [...] to exams dated: 02/18/2018, 09/25/2016, and 04/25/[address] [facility]. BREAST TISSUE:The tissue of both breasts is [...] signed by: Gracie Patel M.D. ll/:03/08/2020 11:16:23 Recruiter Coordinator: Landy Ansari (R)(Mag), [facility] letter sent: Normal Exam Reading location: [...] copy. Current study was also evaluated with appweevr version 7.2. CLINICAL: Diagnostic study. Focal pain left lateral breast. No personal history of cancer. Paternal aunt had breast cancer. COMPARISONS: Comparison is made to exams dated: 02/18/2018, 09/25/2016, and 04/25/2014 [facility]. BREAST TISSUE:The tissue of both breasts is [...] signed by: Gracie Patel M.D. ll/:03/08/2020 11:16:23 Recruiter Coordinator: Landy Ansari([place]illon)(M), [facility] letter sent: Normal Exam Reading location: BLUE OVERALL STUDY BIRADS: 1 Negative us Luann Cox MD IMG MAMMO ORDERABLES Final R esult * HM COLONOSCOPY (07/22/2012) us Any Lewis MD PROCEDURE/MINOR SURGIC AL ORDERABLES Final Result from Last 3 Months or Most Recently Relevant to Health Maintenance Insurance MEDICARE [facility] Advance Directives Documents on File Type Date Recorded Patient Service Superintendent Expl anation POLST/POST/CT DNR 08/19/2018 9:34 AM polst 08/18/2018 Power of Hose Stripper for Health Care 08/18/2018 1:08 PM POA-HC [...] measures to stabilize the patient. Care Teams Fiscal Agent Relationship Specialty Start Date End Date Darwin Marti MD [address] [place] [address] PCP - General Internal Medicine 07/31/23 Blair Paris MD [address] [facility] [place] [address] Consulting Physician Orthopaedic Sports Medicine 07/31/23 Hao Silvestre MD [address] [place] [address] Consulting Physician Neurological Surgery 07/31/23 Carlos Dailey MD [address]2 [facility] [address] [place] [address] Consulting Physician Colon and Rectal Surgery 10/26/23 Saida Mckeon APRN, RELAY MOTORMAN [address] [place] [address] Nurse Practitioner Gastroenterology 10/26/23 Jessenia aWrd APRN, ADMINISTRATOR OF HOME HEALTH [address] [place] [address] Nurse Practitioner Neurology 11/17/23 Dominic Wang MD [address] [address] Consulting Physician Pain Medicine-Pain Management 02/09/24 Butch Muñiz MD [address] [place] [address] Consulting Physician Neurology 02/23/24
--- OUTSIDE RECORDS SUMMARY | 2025-01-10 01:00 | XMS_ITS | Clinical Summary ---
Author Organization [facility] Address [address] [place] [address] Care Team Providers Care Teleradiologist Name Role Phone Darwin Marti MD Primary Care Provider [phone] Source Comments [facility],non-owned Affiliates and Associated Physician Practices is amultiple site organization consisting of ambulatory clinics and hospital sitesin [place], [place], [place] and [place]. This disclosure is being madepursuant to the Care Everywhere program and may not contain all information available regarding this patient. Last updated 18.[facility] Allergies Active Allergy Reactions Criticality Noted [...] Reaction: Vomiting, Penicillins Other,Unknown 03/28/2021 Reaction: Unknown, [place] Unknown 06/15/2015 Sulfa Drugs Other 02/08/2020 Reaction: [...] Department Care Team Description 10/21/2024 Patient Outreach [facility] - Care Coordination [address] [place] [address] Kirstie Unger MA Outreach Preventive Care from [...] age to complete this topic Insurance MEDICARE [facility] Advance Directives * Full Code (Latest Code Status on File) Date Activated Date Inactivated Comments 10/18/2021 5:32 PM 10/19/2021 1:05 PM Care Teams Teleradiologist Relationship Specialty Start Date End Date Darwin Marti MD [address] [place] [address] PCP - General Internal Medicine 10/27/23
--- OUTSIDE RECORDS SUMMARY | 2025-01-10 01:00 | XMS_ITS | Encounter Summary ---
Author Organization [facility] Address [address] [place] [address] Phone Care Team Providers Care Metal Coater Operator Name Role Phone Blair Paris MD Unavailable [phone] Jose A Espinosa MD Unavailable [phone] Dariwn Marti MD Primary Care Provider [phone] Hao Silvestre MD Unavailable [phone] Carlos Dailey MD Unavailable Saida Mckeon APRN, SOCIAL SCIENTIST Unavailable Jessenia Ward APRN, [facility] Unavailable + [phone] Hao Silvestre MD Unavailable [phone] Dominic Wang MD Unavailable [phone] Butch Muñiz MD Unavailable [phone] Reason for Visit * Reason Comments Medication Refill Encounter Details Date Type Department Care Team (Late Contact Info) Description 08/18/2023 [facility]ill [facility] - [facility] Care - [place] [address] [place] [address] Ranjeet Boston PAC [address] [place] [address] Medication Refill Social History Tobacco [...] - 08/18/2023 1:20 PM CST Duplicate Request THERAPY ASST documented in this encounter Plan of Treatment Upcoming Encounters Date Type Department Care Team (Late Contact Info) Description 02/20/2025 9:30 AM CDT Office Visit [facility] - Neurology - [place] [address] [place] [address] Jessenia Ward APRN, PATTERN CHANGER [address] [place] [address] 03/09/2025 2:30 PM CDT Office Visit [facility] - Family Medicine - [place] [address] [facility] [place] [address] Juan Shrestha MD #[address] [facility] [address] [place] [address] documented as of this encounter Visit Diagnoses [...] Total Score: 0 07/31/19 24 12:53 PM OCC THERAPY ASST documented as of this encounter Care Teams Metal Coater Operator Relationship Specialty Start Date End Date Darwin Marti MD [address] [place] [address] PCP - General Internal Medicine 07/31/23 Blair Paris MD 4 [facility] [address] [place] [address] Consulting Physician Orthopaedic Sports Medicine 07/31/23 Jose A Espinosa MD 2 [facility] [address] [place] [address] Consulting Physician Pain Medicine-Pain Management 07/31/23 02/08/24 Hao Silvestre MD [address] [address] Consulting Physician Neurological Surgery 07/31/23 Carlos Dailey MD #[address] [address] Consulting Physician Colon and Rectal Surgery 10/26/23 Saida Mckeon APRN, SOCIAL SCIENTIST [address] [place] [address] Nurse Practitioner Gastroenterology 10/26/23 Jessenia Ward APRN, PATTERN CHANGER [address] [place] [address] Nurse Practitioner Neurology 11/17/23 Hao Silvestre MD [address] [address] Consulting Physician Neurological Surgery 02/09/2401/27 Dominic Wang MD [address] [address] Consulting Physician Pain Medicine-Pain Management 02/09/24 Butch Muñiz MD #[address] [place] [address] Consulting Physician Neurology 02/23/24 documented as of this encounter
--- OUTSIDE RECORDS SUMMARY | 2025-01-10 01:00 | XMS_ITS | Encounter Summary ---
Author Organization [facility] Address [address] [place] [address] Phone Care Team Providers Care Concrete Hopper Operator Name Role Phone Blair Paris MD Unavailable [phone] Jose A Espinosa MD Unavailable [phone] Darwin Marti MD Primary Care Provider [phone] Hao Silvestre MD Unavailable [phone] Carlos Dailey MD Unavailable Saida Mckeon APRN, BIG MACHINE CONSULTANT Unavailable Jessenia Ward APRN, [facility] Unavailable + [phone] Hao Silvestre MD Unavailable [phone] Dominic Wang MD Unavailable [phone] Butch Muñiz MD Unavailable Reason for Visit * Reason Comments Medication Refill Encounter Details Date Type Department Care Team (Late Contact Info) Description 08/26/20[facility] - [place] [address] [place] [address] Ranjeet Boston PAC [address] [place] [address] Medication Refill Social History Tobacco [...] CST Patient need to get from neurosurgeon ETT MECHANIC documented in this encounter Plan of Treatment Upcoming Encounters Date Type Department Care Team (Late Contact Info) Description 02/20/2025 9:30 AM CDT Office Visit [facility] - Neurology - [place] [address] [place] [address] Jessenia Ward APRN, MACHINE SET UP [address] [place] [address] 03/09/2025 2:30 PM CDT Office Visit [facility] - Family Medicine - [place] [address] [place] [address] Juan Shrestha MD #[address] [facility] [address] [place] [address] documented as of this encounter Visit Diagnoses [...] Depression Total Score: 0 07/31/19 12:53 PM GARNETT MECHANIC documented as of this encounter Care Teams Concrete Hopper Operator Relationship Specialty Start Date End Date Darwin Marti MD [address] [place] [address] PCP - General Internal Medicine 07/31/23 Blair Paris MD 4 [facility] [address] [place] [address] Consulting Physician Orthopaedic Sports Medicine 07/31/23 Jose A Espinosa MD 2 [facility] [address] [place] [address] Consulting Physician Pain Medicine-Pain Management 07/31/23 02/08/24 Hao Silvestre MD [address] [facility] [address] [place] [address] Consulting Physician Neurological Surgery 07/31/23 Carlos Dailey MD #[address] [address] Consulting Physician Colon and Rectal Surgery 10/26/23 Saida Mckeon APRN, BIG MACHINE CONSULTANT [address] [place] [address] Nurse Practitioner Gastroenterology 10/26/23 Jessenia Ward APRN, MACHINE SET UP [address] [place] [address] Nurse Practitioner Neurology 11/17/23 Hao Silvestre MD [address] [address] Consulting Physician Neurological Surgery 02/09/2401/27 Dominic aWng MD [address] [address] Consulting Physician Pain Medicine-Pain Management 02/09/24 Butch Muñiz MD #[address] [place] [address] Consulting Physician Neurology 02/23/24 documented as of this encounter
--- OUTSIDE RECORDS SUMMARY | 2025-01-10 01:00 | XMS_ITS | Encounter Summary ---
Author Organization [facility] Address [address] [place] [address] Phone Care Team Providers Care Pediatric Lpn Name Role Phone Luann Cox MD Primary Care Provider [phone] Josiane Pacheco MD Primary Care Provider + [phone] Blair Paris MD Unavailable [phone] Jose A Espinosa MD Unavailable [phone] Darwin Marti MD Primary Care Provider [phone] Hao Silvestre MD Unavailable [phone] Carlos Dailey MD Unavailable Saida Mckeon APRN, PSYCHIATRIC NP Unavailable Jessenia Ward APRN, LEAD ACCOUNTANT Unavailable +- [phone] Hao Silvestre MD Unavailable [phone] Dominic Wang MD Unavailable [phone] Butch Muñiz MD Unavailable [phone] Reason for Visit * Reason Comments Medication Refill Encounter Details Date Type Department Care Team (Late st Contact Info) Description 03/01/2022 Refill [facility] - Primary Care - [place] [address] [place] [address] Luann Cox MD [address] [place] [address] Medication Refill Social History Tobacco [...] Dept 12/16/21 Office Visit [facility] [place] 06/27/21 Office Visit [facility] [place] 03/07/21 Office Visit Luann Cox MD [facility] [place] Showing recent visits within past 365 days and meeting all other requirements Future Appointments Date Type Provider Dept 05/23/22 Appointment [facility] 05/29/22 Appointment Luann Cox MD [facility] Showing future appointments within next 90 [...] Dept 12/16/21 Office Visit [facility] [place] 06/27/21 Office Visit Luann Cox MD [facility] 03/07/21 Office Visit Luann Cox MD [facility] [place] Showing recent visits within past 365 days and meeting all other requirements Future Appointments Date Type Provider Dept 05/23/22 Appointment Lab, [facility] 05/29/22 Appointment Luann Cox MD [facility] Showing future appointments within next 90 days and meeting all other requirements documented in this encounter Plan of Treatment Upcoming Encounters Date Type Department Care Team (Late st Contact Info) Description 02/20/2025 9:30 AM CDT Office Visit [facility] - Neurology [facility] [address] [place] [address] Jessenia Ward APRN, LEAD ACCOUNTANT #[address] [place] [address] 03/09/2025 2:30 PM CDT Office Visit [facility] Family Medicine [facility] #[address] [place] [address] Juan Shrestha MD #[address] [address] documented as of this encounter Visit Diagnoses Diagnosis Neuropathy Mononeuritis of unspecified site documented in this encounter Additional Health Concerns Infection Onset Date Last Indicated Resolved Time ESBL 08/16/2018 08/16/2018 09/28/2023 9:03 AM CDT COVID - 19 03/09/2023 03/09/2023 03/19/2023 12:1 6 AM CDT Respiratory Rule-Out 03/09/2023 03/09/2023 023 2:09 AM CDT COVID - 19 05/07/2023 05/07/2023 05/07/2023 9:50 AM CERTIFIED PEER SPECIALIST COVID - 19 Confirmed 05/07/2023 05/07/2023 023 12:16 AM CERTIFIED PEER SPECIALIST C. difficile Rule-Out 09/24/2023 09/24/20232023 3:41 PM CDT COVID - 19 09/24/2023 09/24/202309/2309/24/2023 11:3 2 AM CDT C. difficile Rule-Out 09/27/2023 09/27/20232023 2:13 PM CDT COVID - 19 02/23/2024 02/23/2024 02/23/2024 11:2 8 AM CDT Respiratory Rule-Out 02/23/2024 02/23/2024 024 11:30 AM CDT Assessment Noted Time PHQ-9 Depression Total Score: 2 07/14/19 20 10:00 AM CERTIFIED PEER SPECIALIST documented as of this encounter Care Teams Pediatric Lpn Relationship Specialty Start Date End Date Luann Cox MD PCP - General Family Medicine 04/15/15 11/02/22 Josiane Pacheco MD [address] [place] [address] PCP - General Family Medicine 11/20/22 07/30/23 Darwin Marti MD [address] [place] [address] PCP - General Internal Medicine 07/31/23 Blair Paris MD [address] [facility] [address] [place] [address] Consulting Physician Orthopaedic Sports Medicine 07/31/23 Jose A Espinosa MD [address] [facility] [address] [place] [address] Consulting Physician Pain Medicine-Pain Management 07/31/23 02/08/24 Hao Silvestre MD [address] [id number] Consulting Physician Neurological Surgery 07/31/23 Carlos Dailey MD #[address] [address] Consulting Physician Colon and Rectal Surgery 10/26/23 Saida Mckeon APRN, PSYCHIATRIC NP #[address] [place] [address] Nurse Practitioner Gastroenterology 10/26/23 Jessenia Ward APRN, LEAD ACCOUNTANT [address] [place] [address] Nurse Practitioner Neurology 11/17/23 Hao Silvestre MD [address] [facility] [address] [place] [address] Consulting Physician Neurological Surgery 02/09/2401/27 Dominic Wang MD [address] [address] Consulting Physician Pain Medicine-Pain Management 02/09/24 Butch Muñiz MD #[address] [place] [address] Consulting Physician Neurology 02/23/24 documented as of this encounter
--- NOTE | 2025-01-10 11:30 | WPDANESEPPF ---
Anes - Initial Pre Proc Eval Procedure: Operation Date: 01/10/25 12:00 Proposed Procedures p Left L3-4 Hemilaminectomy, L5-S1 Posterior Lumbar Interbody Fusion - Hao Silvestre MD Date/Time: 01/10/25 11:30 Surgeon: Hao Silvestre MD Pre Op Diagnosis: lumbar stenosis Patient Data Age: 74 Gender: F Height: 1.63 m Weight: 79.5 kg Last Vital Signs Temp 96.8 F L 01/10/25 10:30 Pulse 70 01/10/25 10:30 Resp 16 01/10/25 10:30 BP 150/87 H 01/10/25 10:30 Pulse Ox 100 01/10/25 10:30 O2 Del Method Room Air 01/10/25 10:30 Allergies Allergy/AdvReac Type Severity Reaction Status Date / Time Fish Containing Products Allergy Severe Vomiting Verified 01/10/25 10:43 latex Allergy Severe Itching Verified 01/10/25 10:43 Penicillins Allergy Severe Hives Verified 01/10/25 10:43 codeine Allergy Mild Hives AND Verified 01/10/25 10:43 VOMITING strawberry Allergy Mild Hives Verified 01/10/25 10:43 hydrocodone (From Vicodin) AdvReac Severe Vomiting Verified 01/10/25 10:43 meperidine (From Demerol) AdvReac Severe Vomiting Verified 01/10/25 10:43 tetanus and diphtheria AdvReac Severe Swelling Verified 01/10/25 10:43 toxoids kiwi AdvReac Mild Hives Verified 01/10/25 10:43 Sulfa (Sulfonamide AdvReac Mild Vomiting Verified 01/10/25 10:43 Antibiotics) tramadol AdvReac Mild Nausea Verified 01/10/25 10:43 Home Medications ?Medication ?Instructions ?Recorded ?Confirmed ?Type albuterol sulfate 90 mcg/actuation 1 inh inhalation Q4-6H PRN Wheezing 04/13/23 01/10/25 History breath activated powder inhaler calcium carbonate (Calcium 600) 600 mg PO DAILY 04/13/23 01/10/25 History cetirizine 10 mg tablet 10 mg PO DAILY PRN Congestion 04/13/23 01/10/25 History gabapentin 300 mg capsule 300 mg PO Q12H 04/13/23 01/10/25 History hydroxyzine HCl 25 mg tablet 25 mg PO QID PRN Anxiety 04/13/23 01/10/25 History levothyroxine 50 mcg capsule 50 mcg PO DAILY 04/13/23 01/10/25 History meclizine 25 mg tablet 25 mg PO TID PRN Dizziness Or 04/13/23 12/29/24 History Vertigo pantoprazole 40 mg tablet,delayed 40 mg PO QAM 04/13/23 12/29/24 History release simvastatin 40 mg tablet 40 mg PO DAILY 04/13/23 01/10/25 History cholecalciferol (vitamin D3) 250 250 mcg PO DAILY 07/27/23 12/29/24 History mcg (10,000 unit) capsule multivitamin 1 tablet PO DAILY 07/27/23 01/10/25 History clopidogrel 75 mg tablet 75 mg PO DAILY 11/23/23 01/10/25 History doxycycline hyclate 100 mg tablet 100 mg PO BID #20 tabs 11/23/23 12/29/24 Rx mometasone-formoterol HFA 100 2 puff inhalation Q12H 11/23/23 12/29/24 History mcg-5 mcg/actuation aerosol inhaler (Dulera) budesonide 6 mg capsule,extended 6 mg PO DAILY 01/07/24 12/29/24 History release cholecalciferol (vitamin D3) 25 25 mcg PO DAILY 07/11/24 01/10/25 History mcg (1,000 unit) capsule hydrochlorothiazide 12.5 mg capsule 12.5 mg PO DAILY 07/11/24 01/10/25 History lisinopril 10 mg tablet 10 mg PO DAILY 07/11/24 01/10/25 History cyclobenzaprine 10 mg tablet 10 mg PO TID PRN Muscle Spasms 10 07/20/24 12/29/24 Rx days #30 tabs sennosides 8.6 mg-docusate sodium 1 tab PO HS PRN Constipation 7 07/20/24 12/29/24 Rx 50 mg tablet (Senokot-S) days #14 tabs budesonide-formoterol HFA 80 2 inh inhalation DAILY 12/29/24 12/29/24 History mcg-4.5 mcg/actuation aerosol inhaler (Symbicort) meloxicam 15 mg tablet 15 mg PO DAILY 12/29/24 01/10/25 History Patient hx anesthesia problems: none Family hx anesthesia problems: none Results Review: All pre-operative results and documents have been reviewed as part of the pre-operative evaluation. [facility] Past Medical History Medical History MVP (mitral valve prolapse) said she was having spells and then was put on blood thinners because of her MVP and now she doesn't have these spells Hypothyroidism Hyperlipidemia Hypertension Asthma Surgical History Surgical History History of appendectomy Previous back surgery Family History Family History Mother Diabetes mellitus Hypertension Heart problem Thyroid disorder Social History Social History Smoking packs per day: 2 Smoking cigarettes per day: 40.0 Years smoked: 35 Smoking pack-years: 70.00 Smoking status: Former smoker Tobacco type: cigarettes Second hand tobacco smoke exposure: Yes Smoking end date: 06/29/99 Alcohol intake: never Alcohol use details: Rarely Substance use: never Substance use type: does not use Do You Feel Safe in your Home?: Yes Lack of Transportation: No Lack of Food: Never True Current Housing: I Have Housing Concerned About Future Housing: No Difficulty Paying Gas/Electric Bills: No Difficulty Paying for Meds: No Currently Unemployed: No Education: Associate Degree Difficulty w/ Childcare or Family Care: No Living arrangements: with family Additional living arrangements comments: LIVES WITH DISABLED SPOUSE Spiritual care concerns: No Anes - Eval Final PreProcedure Day of Procedure 01/10/25 11:30 Patient weight: obese Lungs: normal air movement Airway: Mallampati scale class II Neurological: alert and oriented Last oral intake: >/= 8 hours ASA classification: III Emergent: no Anesthetic plan: proceed Anesthesia type and monitoring: general ETT and standard monitoring Results Review: All pre-operative results and documents have been reviewed as part of the pre-operative evaluation. HTN, hypothyroidism, hx of passing out, pt reports treatment was AC after workup, plavix has been on hold for OR. Ex smoker, quit 1999. Informed Consent: The patient's anesthetic plan and its attendant risks and benefits were discussed with the patient/family/POA. Questions were solicited and answers provided to the satisfaction of the patient/family/POA.
--- NOTE | 2025-01-10 11:55 | PM.IMHP ---
H&P: HPI History of Present Illness Date/Time: 01/10/25 11:55 Chief Complaint: Back pain Narrative: Yaima is a 74-year-old female who is status post sacroiliac joint fusion but she persists in having pain in her very low lumbosacral spine in the midline and for some reason this seems worse recently. She points to the area of her tailbone and just above it which seems to be worse with activity and better with rest. She bends forward as she walks. She does not report any leg symptoms. She walks with a cane. After further evaluation treatment including MRI of the lumbar spine she presents now for fusion at L5-S1 and hemilaminectomy at L3-4 to decompress the central canal. She has not changed appreciably since we last saw her. She does not have specific muscle group weakness or dermatomal numbness. She is not having bowel or bladder difficulty. Review of Systems Review of Systems: All systems reviewed & are unremarkable except as noted in HPI and below Denies chills, Denies fever(s), Denies weakness, Denies weight gain and Denies weight loss Eyes Denies change in vision and Denies diplopia ENT Reports disequilibrium Card Denies chest pain and Denies dyspnea Resp Denies cough and Denies dyspnea GI Denies abdominal pain, Denies change in bowel habits, Denies fecal incontinence and Denies vomiting Denies hematuria, Denies urinary frequency, Denies difficulty voiding, Denies dysuria, Reports urinary incontinence (chronic), Denies urinary hesitancy and Denies urinary urgency Musc Reports as per HPI, Reports abnormal gait, Reports back pain, Reports numbness, Reports stiffness and Reports tingling Skin/ Breast Reports system reviewed and no additional complaints, except as documented Neuro Reports as per HPI, Reports abnormal gait, Denies focal weakness, Reports numbness, Reports tingling, Reports disequilibrium and Denies weakness Psych Reports no additional complaints, Denies depression and Denies hopelessness Endo Reports no additional complaints and Denies polyuria Mohsen/ Lymph Reports no additional complaints Aller/ Immun Reports no additional complaints PMFSH Past Medical History Medical History MVP (mitral valve prolapse) said she was having spells and then was put on blood thinners because of her MVP and now she doesn't have these spells Hypothyroidism Hyperlipidemia Hypertension Asthma Surgical History Surgical History History of appendectomy Previous back surgery Family History Family History Mother Diabetes mellitus Hypertension Heart problem Thyroid disorder Social History Social History Smoking packs per day: 2 Smoking cigarettes per day: 40.0 Years smoked: 35 Smoking pack-years: 70.00 Smoking status: Former smoker Tobacco type: cigarettes Second hand tobacco smoke exposure: Yes Smoking end date: 06/29/99 Alcohol intake: never Alcohol use details: Rarely Substance use: never Substance use type: does not use Do You Feel Safe in your Home?: Yes Lack of Transportation: No Lack of Food: Never True Current Housing: I Have Housing Concerned About Future Housing: No Difficulty Paying Gas/Electric Bills: No Difficulty Paying for Meds: No Currently Unemployed: No Education: Associate Degree Difficulty w/ Childcare or Family Care: No Living arrangements: with family Additional living arrangements comments: LIVES WITH DISABLED SPOUSE Spiritual care concerns: No Meds Home Medications and Allergies Home Medications ?Medication ?Instructions ?Recorded ?Confirmed ?Type albuterol sulfate 90 mcg/actuation 1 inh inhalation Q4-6H PRN Wheezing 04/13/23 01/10/25 History breath activated powder inhaler calcium carbonate (Calcium 600) 600 mg PO DAILY 04/13/23 01/10/25 History cetirizine 10 mg tablet 10 mg PO DAILY PRN Congestion 04/13/23 01/10/25 History gabapentin 300 mg capsule 300 mg PO Q12H 04/13/23 01/10/25 History hydroxyzine HCl 25 mg tablet 25 mg PO QID PRN Anxiety 04/13/23 01/10/25 History levothyroxine 50 mcg capsule 50 mcg PO DAILY 04/13/23 01/10/25 History meclizine 25 mg tablet 25 mg PO TID PRN Dizziness Or 04/13/23 12/29/24 History Vertigo pantoprazole 40 mg tablet,delayed 40 mg PO QAM 04/13/23 12/29/24 History release simvastatin 40 mg tablet 40 mg PO DAILY 04/13/23 01/10/25 History cholecalciferol (vitamin D3) 250 250 mcg PO DAILY 07/27/23 12/29/24 History mcg (10,000 unit) capsule multivitamin 1 tablet PO DAILY 07/27/23 01/10/25 History clopidogrel 75 mg tablet 75 mg PO DAILY 11/23/23 01/10/25 History doxycycline hyclate 100 mg tablet 100 mg PO BID #20 tabs 11/23/23 12/29/24 Rx mometasone-formoterol HFA 100 2 puff inhalation Q12H 11/23/23 12/29/24 History mcg-5 mcg/actuation aerosol inhaler (Dulera) budesonide 6 mg capsule,extended 6 mg PO DAILY 01/07/24 12/29/24 History release cholecalciferol (vitamin D3) 25 25 mcg PO DAILY 07/11/24 01/10/25 History mcg (1,000 unit) capsule hydrochlorothiazide 12.5 mg capsule 12.5 mg PO DAILY 07/11/24 01/10/25 History lisinopril 10 mg tablet 10 mg PO DAILY 07/11/24 01/10/25 History cyclobenzaprine 10 mg tablet 10 mg PO TID PRN Muscle Spasms 10 07/20/24 12/29/24 Rx days #30 tabs sennosides 8.6 mg-docusate sodium 1 tab PO HS PRN Constipation 7 07/20/24 12/29/24 Rx 50 mg tablet (Senokot-S) days #14 tabs budesonide-formoterol HFA 80 2 inh inhalation DAILY 12/29/24 12/29/24 History mcg-4.5 mcg/actuation aerosol inhaler (Symbicort) meloxicam 15 mg tablet 15 mg PO DAILY 12/29/24 01/10/25 History Allergies Allergy/AdvReac Type Severity Reaction Status Date / Time Fish Containing Products Allergy Severe Vomiting Verified 01/10/25 10:43 latex Allergy Severe Itching Verified 01/10/25 10:43 Penicillins Allergy Severe Hives Verified 01/10/25 10:43 codeine Allergy Mild Hives AND Verified 01/10/25 10:43 VOMITING strawberry Allergy Mild Hives Verified 01/10/25 10:43 hydrocodone (From Vicodin) AdvReac Severe Vomiting Verified 01/10/25 10:43 meperidine (From Demerol) AdvReac Severe Vomiting Verified 01/10/25 10:43 tetanus and diphtheria AdvReac Severe Swelling Verified 01/10/25 10:43 toxoids kiwi AdvReac Mild Hives Verified 01/10/25 10:43 Sulfa (Sulfonamide AdvReac Mild Vomiting Verified 01/10/25 10:43 Antibiotics) tramadol AdvReac Mild Nausea Verified 01/10/25 10:43 Vital Signs Vital Signs - 24 hr 01/10/25 10:30 Temperature 96.8 F L Pulse Rate 70 Respiratory Rate 16 Blood Pressure 150/87 H Pulse Oximetry 100 Oxygen Delivery Room Air Exam Narrative: General: cooperative, no acute distress, well developed, alert and awake Orientation/Consciousness: oriented to person, oriented to place and oriented to time Constitutional Limitations: no limitations Other: The patient is a normally developed, normal appearing female sitting on the examination table in no acute distress. She is awake, alert, and oriented x3 with good fund of knowledge, recall of events, and fluent speech. HENAK Head: normocephalic and atraumatic Ears: external ears normal Face/Nose/Sinus: Normal external nose present Eyes Eyelids: eyelids normal Pupils: Yes Pupils normal by confrontation EOM: EOMs intact bilaterally Neck General: Yes no meningeal signs, Yes supple and Yes no JVD Resp Effort/Inspection: normal respiratory effort and able to speak in complete sentences Cardio Rate: Yes regular rate GI Inspection: No abdominal distension Musc Other: Examination of the back reveals lumbar tenderness. Range of motion of the back is limited and painful in extension. Straight leg raise is negative bilaterally. Jass?s test is negative bilaterally. Skin General: normal color Neuro General: Yes oriented to person, Yes oriented to place, Yes oriented to time, Yes normal cognition and Yes no meningeal signs Cranial Nerves: Yes CN's II-XII intact bilaterally Other: Motor: Strength is normal (5/5) throughout all muscle groups of the bilateral lower extremities to direct confrontation. Sensory: Sensation is intact to light touch throughout the lower extremities bilaterally. Reflexes: Deep tendon reflexes are difficult to elicit at the knees and ankles bilaterally. There is no ankle clonus. Gait: Gait is independent and steady but hunched forward with a cane as an assistive device. Psych Appearance: grossly normal Mental status: Yes mental status grossly normal Mood: congruent mood Affect: Yes normal affect Speech/Movement: Normal speech and movement present Attitude: Yes cooperative Thought Content: Normal thought content present Assessment and Plan Assessment and plan (1) Foraminal stenosis of lumbosacral region: Code(s): M48.07 - Spinal stenosis, lumbosacral region Status: Acute (2) Lumbar stenosis: Code(s): M48.061 - Spinal stenosis, lumbar region without neurogenic claudication Status: Acute (3) Stenosis of lateral recess of lumbar spine: Code(s): M48.061 - Spinal stenosis, lumbar region without neurogenic claudication Status: Acute (4) Lumbosacral spondylosis: Code(s): M47.817 - Spondylosis without myelopathy or radiculopathy, lumbosacral region Status: Acute Plan I have recommended to Yaima I am L5-S1 posterior lumbar interbody fusion and left L3-4 hemilaminectomy and I described to her that operation, its risks, potential benefits, the operative and postoperative course in detail and answered all her questions personal. Discussed risks including but not limited to permanent neurologic deficit secondary to nerve root injury, need for reoperation separate day to infection, bleeding, trauma adjacent level disease, recurrent or residual pathology or instability, malposition or migration of hardware or nonunion, failure of the procedure to relieve her pain or symptoms, persistent pain, medical complications related to anesthesia or surgery, etc.. She indicates understanding and elects proceed with the operation. This seems like the highest probability maneuver at this point. Her symptoms and the radiographic abnormalities are somewhat nonspecific.
--- NOTE | 2025-01-10 11:58 | WPDHPUPDATE1 ---
History and Physical Update Update Date/Time: 01/10/25 11:58 History and Physical has been reviewed, including an updated exam of the patient. There are NO changes in the patient's condition. Risks, benefits, and alternatives have been discussed and questions answered. Patient agrees to proceed with procedure.
[2025-01-10] MEDS: ceFAZolin 2 GM in SODIUM CHLORIDE 0.9% IV 50 ML 100 ML IVPB (12:04)
[2025-01-10] MEDS: LIDO 1%/EPINEPHRINE 1:100,000 20 ML VIAL INFILTRATE (13:10)
[2025-01-10] MEDS: LACTATED RINGERS 1,000 ML 30 ML IV CONT ×2 (15:47)
--- NOTE | 2025-01-10 15:49 | W.PM.PROC2 ---
Procedure Note - Detailed Date of Procedure 01/10/25 Pre-op Diagnosis lumbar stenosis Post-op Diagnosis Same Procedure Performed L5-S1 complete laminectomy and bilateral facetectomy, L5-S1 complete diskectomy and interbody arthrodesis utilizing titanium interbody devices and local autograft, L5-S1 pedicle screw instrumentation left L3-4 hemilaminectomy. Surgeon Hao Silvestre MD Anesthesia General Description of Procedure Patient was brought to the operating room in the supine position, was sedated, intubated placed under general anesthesia in routine fashion. She was then turned into the prone position on a Cosmo frame. There operation on her back was examined, marked for incision, prepped and draped in routine sterile fashion. Incision was marked over the L3 through S1 spinous processes in the midline. This area was injected with 0.5% lidocaine [id number] epinephrine. Intravenous antibiotics given prior to incision. Incision was made with a 10 blade scalpel down to the lumbodorsal fascia. A subperiosteal dissection of the muscle soft tissue away from spinous process and lamina at L3 through S1 was performed with a subperiosteal elevator and Bovie cautery. A verifying x-rays obtained to verify the level of operation. The L5 spinous process was removed with a Sagar rongeur. Kerrison punches, curved curettes and Leksell rongeur were used to remove lamina in the midline to the soft contents of the canal were encountered. A Midas Percy drill was then used to resect the pars bilaterally at L5. The inferior articular process and facet of L5 could then be removed bilaterally. These post spinous process were stripped free of soft tissue and morselized for later use as interbody autograft. Kerrison punches and curved curettes were used to define a plane with the dura and removed bone ligament flush with the pedicle and through the foramina widely decompressing the exiting nerve roots. With the thecal sac retracted and protected the disc space entered bilaterally using an 11 blade scalpel. Scrapers a very sizes, curettes a Veress configurations, pituitary rongeur and a rasp were used to remove as much cartilaginous endplate and disc material as possible down to bleeding cortical flat surfaces on the opposing bones. The disc spaces and sized an 8 mm interbody devices were chosen and filled with local autograft bone. The disc space was likewise filled with local autograft bone medially and anteriorly. The interbody devices were then placed with 2-3 mm countersink within the disc space bilaterally. Pedicle screw instrumentation was performed at L5 and S1 by observing and palpating the pedicle while ankle was made and. Taken process above the pedicle using a Midas Percy drill. Pedicle was then cannulated with a pedicle probe, checked for continuity with the ball probe, tapped with a 5.5 mm tap and a 6.5 x 50 mm screw was placed into each pedicle on each side. Rods were placed in the screw heads on either side and secured in position using the caps that purpose. These were definitively tightened with a torque and anti torque device. A verifying x-rays obtained to verify good position of the instrumentation which was confirmed. At L3-4 on the left Midas-Percy drill was used to perform a hemilaminectomy and medial facetectomy. The yellow ligament was lifted removed piecemeal using Kerrison punches in the midline. First episode laterally and then contralaterally curved curette was used to lift overgrown ligament and it was removed with Kerrison punches. This was done until a dental instrument could be placed in the lateral epidural space bilaterally to confirm lack of compression. The wound was copiously irrigated with bacitracin irrigation all bleeding stopped with bipolar Bovie cautery and Gelfoam thrombin powder. A medium Hemovac drain was left in the subfascial position buried out to the inferior right of the incision. The wound was then closed in layered fashion with 2-0 Vicryl interrupted sutures in the lumbodorsal fascia and Shawn's layer. 3-0 Vicryl buried interrupted sutures were placed in the dermis and the skin was closed with a running 4-0 Monocryl subcuticular stitch and dressed with Dermabond. The patient was allowed to wake up in the operating room was taken to the recovery room in stable condition. There were no immediate complications of this operation. All counts reported correct the end of the case. Blood loss was 650 cc. The patient was neurologically at her baseline postoperatively. CPT codes: 86228, 93915, 19026, 54595, 49875, 39279 Estimated Blood Loss 650 Complications None Condition Stable Disposition PACU [facility] Billing Surgery - Charge Forward: Surgery Billing
[2025-01-10] MEDS: fentaNYL CITRATE INJ (*CRX) 100 MCG/2 ML VIAL 25 MCG IV PUSH ×4 (16:01→16:10)
[2025-01-10] MEDS: HYDROmorphone HCL INJ (*CRX) 1 MG/ML SYR 0.25 MG IV PUSH ×4 (16:21→16:46)
--- NOTE | 2025-01-10 18:32 | ADMGEN ---
This patient, Yaima Gutierrez, was admitted to Medical Room 345-01. Patient/family oriented to hospital policies and general routines including ID bracelet, bed and alarms, visiting hours, pain management, procedures, bathroom and other care routines, personal items, smoking policy, room service/diet, and visiting hours. Information on how to activate the Rapid Response Team has been discussed. Patient/Family are encouraged to report perceived risks to care and to ask questions if they do not understand what they are told or what they should do.
[2025-01-10] MEDS: oxyCODONE/ACETAMINOPHEN (*CRX) 10-325 MG TABLET 1 TAB PO (18:43)
[2025-01-10] MEDS: ceFAZolin 1 GM in SODIUM CHLORIDE 0.9% IV 50 ML 100 ML IVPB (20:35)
[2025-01-10] MEDS: KCL 20 MEQ/D5/0.45% SOD CHL 1,000 ML 100 ML IV CONT (20:35)
[2025-01-10] MEDS: DOCUSATE SODIUM 100 MG CAPSULE PO (20:40)
[2025-01-10] MEDS: GABAPENTIN 300 MG CAPSULE PO (20:40)
[2025-01-10] MEDS: HYDROmorphone HCL INJ (*CRX) 2 MG/ML VIAL 0.5 MG IV PUSH (20:42)
[2025-01-10] MEDS: ONDANSETRON INJ 4 MG/2 ML VIAL IV PUSH (21:04)
[2025-01-11 01:05] VITALS: BP 107/63; PULSE 74; RESP 18; TEMP 36.6; O2SAT 98
[2025-01-11] MEDS: oxyCODONE/ACETAMINOPHEN (*CRX) 10-325 MG TABLET 1 TAB PO ×3 (01:18→20:17)
[2025-01-11] MEDS: ceFAZolin 1 GM in SODIUM CHLORIDE 0.9% IV 50 ML 100 ML IVPB ×3 (04:04→20:17)
[2025-01-11] MEDS: HYDROmorphone HCL INJ (*CRX) 2 MG/ML VIAL 0.5 MG IV PUSH ×3 (04:09→18:32)
[2025-01-11 05:05] VITALS: BP 113/55; PULSE 74; RESP 20; TEMP 36.7; O2SAT 98
[2025-01-11] MEDS: LEVOTHYROXINE SODIUM 50 MCG TABLET PO (06:03)
[2025-01-11] MEDS: FLUTICASONE/SALMETEROL 45-21 MCG INHALER 1 PUFF 2 PUFF INHALATION (08:40)
[2025-01-11 09:38] VITALS: BP 92/67; PULSE 68; O2SAT 98
[2025-01-11] MEDS: MECLIZINE HCL 25 MG TABLET PO ×2 (09:40→11:02)
[2025-01-11] MEDS: DOCUSATE SODIUM 100 MG CAPSULE PO ×2 (09:40→20:17)
[2025-01-11] MEDS: CYCLOBENZAPRINE HCL 10 MG TABLET PO ×2 (09:40→11:02)
[2025-01-11] MEDS: SIMVASTATIN 20 MG TABLET 40 MG PO (09:40)
[2025-01-11] MEDS: GABAPENTIN 300 MG CAPSULE PO ×2 (09:40→20:17)
[2025-01-11] MEDS: CHOLECALCIFEROL (VITAMIN D3) 25 MCG (1,000 UNITS) TABLET PO (09:40)
[2025-01-11] MEDS: PANTOPRAZOLE 40 MG TABLET PO (09:40)
[2025-01-11] MEDS: LORATADINE 10 MG TABLET PO (09:40)
--- NOTE | 2025-01-11 10:34 | WPDNEUROSGPN ---
Progress Note: A&P Assessment and Plan (1) Status post lumbar spinal arthrodesis: Code(s): Z98.1 - Arthrodesis status Status: Acute Plan -Remove reynoso catheter -Remove hemovac drain -Reinforce inferior incision with steristrips -PT/OT evaluation today Subjective Date/time seen: 01/11/25 10:34 Interval history: Having quite a bit of back pain but no leg pain since surgery. Oral medications are helping with pain. Currently sitting up in chair. Having some oozing from inferior aspect of incision Review of Systems Review of Systems: All systems reviewed & are unremarkable except as noted in HPI and below Exam Narrative: AOx4 Oozing from inferior aspect of incision Full strength in lower extremities Sensation intact to light touch Drain 30cc out since surgery Objective Data Vital Signs Vital Signs: Vital Signs - 24 hr 01/10/25 15:47 01/10/25 16:00 01/10/25 16:15 Temperature 97.5 F L Pulse Rate 65 80 82 Respiratory Rate 12 20 18 Blood Pressure 114/76 154/93 H 156/85 H Pulse Oximetry 100 100 100 Oxygen Delivery Simple Face Mask Simple Face Mask Simple Face Mask Oxygen Flow Rate 8 8 8 01/10/25 16:30 01/10/25 16:45 01/10/25 16:55 Temperature Pulse Rate 81 78 Respiratory Rate 20 12 Blood Pressure 148/77 H 130/61 Pulse Oximetry 100 94 94 Oxygen Delivery Room Air Room Air Nasal Cannula Oxygen Flow Rate 2 01/10/25 17:00 01/10/25 17:15 01/10/25 17:30 Temperature Pulse Rate 78 66 78 Respiratory Rate 14 12 14 Blood Pressure 121/62 126/63 114/74 Pulse Oximetry 100 97 97 Oxygen Delivery Nasal Cannula Nasal Cannula Nasal Cannula Oxygen Flow Rate 2 2 2 01/10/25 17:45 01/10/25 18:00 01/10/25 18:28 Temperature Pulse Rate 71 81 Respiratory Rate 11 L 12 Blood Pressure 109/57 L 118/60 Pulse Oximetry 98 97 97 Oxygen Delivery Nasal Cannula Nasal Cannula Nasal Cannula Oxygen Flow Rate 2 2 2 01/10/25 18:30 01/10/25 18:45 01/10/25 19:10 Temperature 97.8 F 97.5 F L 98.0 F Pulse Rate 85 79 77 Respiratory Rate 20 18 12 Blood Pressure 135/96 H 119/77 113/60 Pulse Oximetry 100 99 95 Oxygen Delivery Oxygen Flow Rate 01/10/25 20:00 01/10/25 20:05 01/10/25 21:05 Temperature 98.1 F 97.6 F Pulse Rate 77 73 Respiratory Rate 16 18 Blood Pressure 114/65 121/75 Pulse Oximetry 98 98 Oxygen Delivery Room Air Oxygen Flow Rate 01/11/25 01:05 01/11/25 05:05 01/11/25 07:55 Temperature 97.9 F 98.1 F Pulse Rate 74 74 Respiratory Rate 18 20 Blood Pressure 107/63 113/55 L Pulse Oximetry 98 98 Oxygen Delivery Room Air Oxygen Flow Rate 01/11/25 09:38 01/11/25 09:47 Temperature Pulse Rate 68 Respiratory Rate Blood Pressure 92/67 L Pulse Oximetry 98 Oxygen Delivery Room Air Oxygen Flow Rate Intake/Output Intake/Output: Intake & Output 01/08/25 01/09/25 01/10/25 01/11/25 23:59 23:59 23:59 23:59 Intake Total 100 1010 Output Total 1230 Balance 100 -220 Meds/Results Medications: Active Medications Generic Name Dose Route Start Last Admin Trade Name Freq PRN Reason Stop Dose Admin Hydrocodone Bitart/Acetaminophen 1 tab 01/10/25 18:05 Hydrocodone/Acetaminophen (*Crx) 10-325 Mg Tablet PO Q4H PRN Moderate Pain (4-6) Al Hydrox/Mg Hydrox/Simethicone 20 ml 01/10/25 18:05 Mag Hydrox/Al Hydrox/Simeth 30 Ml Udc PO Q4H PRN Indigestion/Heartburn Albuterol 1 puff 01/10/25 18:23 Albuterol Sulfate (*Sp) Aerosol 1 Puff INHALATION Q4-6H PRN Wheezing Bisacodyl 10 mg 01/10/25 18:05 Bisacodyl 10 Mg Suppository RECTAL DAILY PRN Constipation Calcium Carbonate 500 mg 01/11/25 12:00 Calcium Carbonate (Oscal) 500 Mg Tablet PO DAILY@1200 LANG Cyclobenzaprine HCl 10 mg 01/10/25 18:05 01/11/25 09:40 Cyclobenzaprine Hcl 10 Mg Tablet PO 10 mg TID PRN Administration Muscle Spasms Docusate Sodium 100 mg 01/10/25 21:00 01/11/25 09:40 Docusate Sodium 100 Mg Capsule PO 100 mg Q12HR LANG Administration Gabapentin 300 mg 01/10/25 21:00 01/11/25 09:40 Gabapentin 300 Mg Capsule PO 300 mg Q12HR LANG Administration Hydrochlorothiazide 12.5 mg 01/11/25 09:00 01/11/25 10:19 Hydrochlorothiazide 12.5 Mg Capsule PO Not Given DAILY LANG Hydromorphone HCl 0.5 mg 01/10/25 18:17 01/11/25 07:37 Hydromorphone Hcl Inj (*Crx) 2 Mg/Ml Vial IV PUSH 0.5 mg Q2H PRN Administration Pain Rated 7-10 Hydroxyzine HCl 25 mg 01/10/25 18:05 01/11/25 09:40 Hydroxyzine Hcl 25 Mg Tablet PO 25 mg QID PRN Administration Anxiety Cefazolin Sodium 1 gm/ Sodium 50 mls @ 100 mls/hr 01/10/25 20:00 01/11/25 04:34 Chloride IVPB Infused Q8H LANG Infusion Potassium Chloride/Dextrose/Sod Cl 1,000 mls @ 100 mls/hr 01/10/25 18:05 01/10/25 20:35 Kcl 20 Meq/D5/0.45% Sod Chl IV CONT 100 mls/hr .Q10H LANG Administration Levothyroxine Sodium 50 mcg 01/11/25 06:30 01/11/25 06:03 Levothyroxine Sodium 50 Mcg Tablet PO 50 mcg DAILY@0630 LANG Administration Lisinopril 10 mg 01/11/25 09:00 01/11/25 10:19 Lisinopril 10 Mg Tablet PO Not Given DAILY LANG Loratadine 10 mg 01/10/25 18:21 01/11/25 09:40 Loratadine 10 Mg Tablet PO 10 mg DAILY PRN Administration Congestion Meclizine HCl 25 mg 01/10/25 18:05 01/11/25 09:40 Meclizine Hcl 25 Mg Tablet PO 25 mg TID PRN Administration Dizziness Or Vertigo Multivitamins Therapeutic 1 tablet 01/11/25 12:00 Multivitamins Therapeutic Tab (*Bkc) PO DAILY@1200 [facility] Ondansetron HCl 4 mg 01/10/25 18:05 01/10/25 21:04 Ondansetron Inj 4 Mg/2 Ml Vial IV PUSH 4 mg Q8H PRN Administration Nausea And Vomiting Oxycodone/Acetaminophen 1 tablet 01/10/25 18:02 Oxycodone/Acetaminophen (*Crx) 5-325 Mg Tablet PO Q4H PRN Pain Rated 4-6 Oxycodone/Acetaminophen 1 tab 01/10/25 18:02 01/11/25 06:15 Oxycodone/Acetaminophen (*Crx) 10-325 Mg Tablet PO 1 tab Q4H PRN Administration Pain Rated 7-10 Pantoprazole Sodium 40 mg 01/11/25 09:00 01/11/25 09:40 Pantoprazole 40 Mg Tablet PO 40 mg QAM LANG Administration Fluticasone/Salmeterol 2 puff 01/11/25 08:00 01/11/25 08:40 Fluticasone/Salmeterol 45-21 Mcg Inhaler 1 Puff INHALATION 2 puff DAILYRT LANG Administration Senna/Docusate Sodium 1 tab 01/10/25 18:05 Senna/Docusate Sodium Tablet PO HS PRN Constipation Simvastatin 40 mg 01/11/25 09:00 01/11/25 09:40 Simvastatin 20 Mg Tablet PO 40 mg DAILY LANG Administration Vitamin D 25 mcg 01/11/25 09:00 01/11/25 09:40 Cholecalciferol (Vitamin D3) 25 Mcg (1,000 Units) Tablet PO 25 mcg DAILY LANG Administration Radiology Results: ITS Impressions Fluoroscopy 01/10/25 19:37 IMPRESSION: 1. Fluoroscopy utilized during instrumented L5-S1 anterior and posterior spinal fusion. See procedure note for further detail.
--- NOTE | 2025-01-11 10:49 | PC.NURSE ---
Surgeon aware of soft BP and RN holding meds.
[2025-01-11] MEDS: HYDROcodone/acetaminophen (*CRX) 10-325 MG TABLET 1 TAB PO ×2 (11:01→17:32)
[2025-01-11] MEDS: CALCIUM CARBONATE (OSCAL) 500 MG TABLET PO (11:01)
[2025-01-11] MEDS: MULTIVITAMINS THERAPEUTIC TAB (*BKC) 1 TABLET PO (11:04)
[2025-01-11 14:00] VITALS: BP 136/56; PULSE 75; RESP 19; TEMP 35.8; O2SAT 97
[2025-01-11 17:05] VITALS: BP 126/65; PULSE 83; RESP 18; TEMP 36.3; O2SAT 97
[2025-01-11 21:05] VITALS: BP 107/57; PULSE 81; RESP 18; TEMP 36.8; O2SAT 95
[2025-01-12] MEDS: oxyCODONE/ACETAMINOPHEN (*CRX) 10-325 MG TABLET 1 TAB PO ×2 (02:05→18:14)
[2025-01-12] MEDS: ceFAZolin 1 GM in SODIUM CHLORIDE 0.9% IV 50 ML 100 ML IVPB ×3 (03:49→20:11)
[2025-01-12] MEDS: LEVOTHYROXINE SODIUM 50 MCG TABLET PO (06:01)
[2025-01-12 06:45] VITALS: BP 110/60; PULSE 87; RESP 18; TEMP 36.8; O2SAT 97
[2025-01-12] MEDS: FLUTICASONE/SALMETEROL 45-21 MCG INHALER 1 PUFF 2 PUFF INHALATION (07:13)
[2025-01-12 07:15] VITALS: PULSE 93; RESP 16
[2025-01-12] MEDS: HYDROcodone/acetaminophen (*CRX) 10-325 MG TABLET 1 TAB PO (08:20)
[2025-01-12] MEDS: CHOLECALCIFEROL (VITAMIN D3) 25 MCG (1,000 UNITS) TABLET PO (08:24)
[2025-01-12] MEDS: GABAPENTIN 300 MG CAPSULE PO ×2 (08:24→20:11)
[2025-01-12] MEDS: PANTOPRAZOLE 40 MG TABLET PO (08:24)
[2025-01-12] MEDS: SIMVASTATIN 20 MG TABLET 40 MG PO (08:25)
[2025-01-12] MEDS: DOCUSATE SODIUM 100 MG CAPSULE PO ×2 (08:25→20:11)
[2025-01-12 08:30] VITALS: O2SAT 97
[2025-01-12] MEDS: MULTIVITAMINS THERAPEUTIC TAB (*BKC) 1 TABLET PO (12:29)
[2025-01-12] MEDS: CALCIUM CARBONATE (OSCAL) 500 MG TABLET PO (12:30)
[2025-01-12] MEDS: HYDROmorphone HCL INJ (*CRX) 2 MG/ML VIAL 0.5 MG IV PUSH ×2 (12:38→20:15)
--- NOTE | 2025-01-12 13:06 | WPDNEUROSGPN ---
Progress Note: A&P Assessment and Plan (1) Status post lumbar spinal arthrodesis: Code(s): Z98.1 - Arthrodesis status Status: Acute Plan -Discussed importance of mobilization with the patient. I have encouraged her to be up to chair and ambulating with therapy this afternoon -I have asked that the cyclobenzaprine be administered. I am hopeful this will allow her to better wean off the dilaudid -PT/OT evaluations, currently recommending home health to which the patient is agreeable Subjective Date/time seen: 01/12/25 13:06 Interval history: She is still having significant back pain which is slightly improved today. She indicates that her current pain regimen is working, although she is still requiring IV pain medications. Her pre-operative leg pain has resolved. She was up to the chair earlier today but has only ambulated in the room. No further oozing from her incision. Per her nurse, she is unable to tolerate oxycodone and does better with hydrocodone but continues to require IV dilaudid. She has not received muscle relaxer today. Review of Systems Review of Systems: All systems reviewed & are unremarkable except as noted in HPI and below Exam Narrative: AOx4 Dressing c/d/i Full strength in lower extremities Sensation intact to light touch Objective Data Vital Signs Vital Signs: Vital Signs - 24 hr 01/11/25 14:00 01/11/25 17:05 01/11/25 20:00 Temperature 96.5 F L 97.3 F L Pulse Rate 75 83 Respiratory Rate 19 18 Blood Pressure 136/56 L 126/65 Pulse Oximetry 97 97 Oxygen Delivery Room Air 01/11/25 21:05 01/12/25 06:45 01/12/25 07:15 Temperature 98.2 F 98.3 F Pulse Rate 81 87 93 Respiratory Rate 18 18 16 Blood Pressure 107/57 L 110/60 Pulse Oximetry 95 97 Oxygen Delivery Intake/Output Intake/Output: Intake & Output 01/09/25 01/10/25 01/11/25 01/12/25 23:59 23:59 23:59 23:59 Intake Total 100 2980 290 Output Total 2505 350 Balance 100 475 -60 Meds/Results Medications: Active Medications Generic Name Dose Route Start Last Admin Trade Name Freq PRN Reason Stop Dose Admin Hydrocodone Bitart/Acetaminophen 1 tab 01/10/25 18:05 01/12/25 08:20 Hydrocodone/Acetaminophen (*Crx) 10-325 Mg Tablet PO 1 tab Q4H PRN Administration Moderate Pain (4-6) Al Hydrox/Mg Hydrox/Simethicone 20 ml 01/10/25 18:05 Mag Hydrox/Al Hydrox/Simeth 30 Ml Udc PO Q4H PRN Indigestion/Heartburn Albuterol 1 puff 01/10/25 18:23 Albuterol Sulfate (*Sp) Aerosol 1 Puff INHALATION Q4-6H PRN Wheezing Bisacodyl 10 mg 01/10/25 18:05 Bisacodyl 10 Mg Suppository RECTAL DAILY PRN Constipation Calcium Carbonate 500 mg 01/11/25 12:00 01/12/25 12:30 Calcium Carbonate (Oscal) 500 Mg Tablet PO 500 mg DAILY@1200 LANG Administration Cyclobenzaprine HCl 10 mg 01/10/25 18:05 01/11/25 11:02 Cyclobenzaprine Hcl 10 Mg Tablet PO 10 mg TID PRN Administration Muscle Spasms Docusate Sodium 100 mg 01/10/25 21:00 01/12/25 08:25 Docusate Sodium 100 Mg Capsule PO 100 mg Q12HR LANG Administration Gabapentin 300 mg 01/10/25 21:00 01/12/25 08:24 Gabapentin 300 Mg Capsule PO 300 mg Q12HR LANG Administration Hydrochlorothiazide 12.5 mg 01/11/25 09:00 01/12/25 08:25 Hydrochlorothiazide 12.5 Mg Capsule PO 12.5 mg DAILY LANG Administration Hydromorphone HCl 0.5 mg 01/10/25 18:17 01/12/25 12:38 Hydromorphone Hcl Inj (*Crx) 2 Mg/Ml Vial IV PUSH 0.5 mg Q2H PRN Administration Pain Rated 7-10 Hydroxyzine HCl 25 mg 01/10/25 18:05 01/11/25 11:01 Hydroxyzine Hcl 25 Mg Tablet PO 25 mg QID PRN Administration Anxiety Cefazolin Sodium 1 gm/ Sodium 50 mls @ 100 mls/hr 01/10/25 20:00 01/12/25 12:30 Chloride IVPB 100 mls/hr Q8H LANG Administration Levothyroxine Sodium 50 mcg 01/11/25 06:30 01/12/25 06:01 Levothyroxine Sodium 50 Mcg Tablet PO 50 mcg DAILY@0630 LANG Administration Lisinopril 10 mg 01/11/25 09:00 01/12/25 08:25 Lisinopril 10 Mg Tablet PO 10 mg DAILY LANG Administration Loratadine 10 mg 01/10/25 18:21 01/11/25 09:40 Loratadine 10 Mg Tablet PO 10 mg DAILY PRN Administration Congestion Meclizine HCl 25 mg 01/10/25 18:05 01/11/25 11:02 Meclizine Hcl 25 Mg Tablet PO 25 mg TID PRN Administration Dizziness Or Vertigo Multivitamins Therapeutic 1 tablet 01/11/25 12:00 01/12/25 12:29 Multivitamins Therapeutic Tab (*Bkc) PO 1 tablet DAILY@1200 [facility] Administration Ondansetron HCl 4 mg 01/10/25 18:05 01/10/25 21:04 Ondansetron Inj 4 Mg/2 Ml Vial IV PUSH 4 mg Q8H PRN Administration Nausea And Vomiting Oxycodone/Acetaminophen 1 tablet 01/10/25 18:02 Oxycodone/Acetaminophen (*Crx) 5-325 Mg Tablet PO Q4H PRN Pain Rated 4-6 Oxycodone/Acetaminophen 1 tab 01/10/25 18:02 01/12/25 02:05 Oxycodone/Acetaminophen (*Crx) 10-325 Mg Tablet PO 1 tab Q4H PRN Administration Pain Rated 7-10 Pantoprazole Sodium 40 mg 01/11/25 09:00 01/12/25 08:24 Pantoprazole 40 Mg Tablet PO 40 mg QAM LANG Administration Fluticasone/Salmeterol 2 puff 01/11/25 08:00 01/12/25 07:13 Fluticasone/Salmeterol 45-21 Mcg Inhaler 1 Puff INHALATION 2 puff DAILYRT LANG Administration Senna/Docusate Sodium 1 tab 01/10/25 18:05 Senna/Docusate Sodium Tablet PO HS PRN Constipation Simvastatin 40 mg 01/11/25 09:00 01/12/25 08:25 Simvastatin 20 Mg Tablet PO 40 mg DAILY LANG Administration Vitamin D 25 mcg 01/11/25 09:00 01/12/25 08:24 Cholecalciferol (Vitamin D3) 25 Mcg (1,000 Units) Tablet PO 25 mcg DAILY LANG Administration Radiology Results: ITS Impressions Fluoroscopy 01/10/25 19:37 IMPRESSION: 1. Fluoroscopy utilized during instrumented L5-S1 anterior and posterior spinal fusion. See procedure note for further detail.
[2025-01-12 14:51] VITALS: BP 131/62; PULSE 71; RESP 16; TEMP 36.7
[2025-01-12 20:11] VITALS: BP 102/57; PULSE 96; RESP 18; TEMP 37.1; O2SAT 94
[2025-01-13] MEDS: oxyCODONE/ACETAMINOPHEN (*CRX) 10-325 MG TABLET 1 TAB PO ×3 (04:53→20:33)
[2025-01-13 05:57] VITALS: BP 124/64; PULSE 88; RESP 18; TEMP 37.7; O2SAT 94
[2025-01-13] MEDS: ONDANSETRON INJ 4 MG/2 ML VIAL IV PUSH (06:04)
[2025-01-13] MEDS: CYCLOBENZAPRINE HCL 10 MG TABLET PO ×2 (06:09→19:36)
[2025-01-13] MEDS: LEVOTHYROXINE SODIUM 50 MCG TABLET PO (06:11)
[2025-01-13 06:41] VITALS: TEMP 36.7
--- NOTE | 2025-01-13 07:19 | WPDNEUROSGPN ---
Progress Note: A&P Assessment and Plan (1) Lumbar stenosis: Code(s): M48.061 - Spinal stenosis, lumbar region without neurogenic claudication Status: Acute Plan Unfortunately the patient still is having difficulty with low back pain control requiring IV Dilaudid for breakthrough pain. She notes that all of her leg pain is gone but most of her pain is in her back. She is still hopeful that she can go home and with home health however considering she has required IV pain medication recently I think she should stay for another day to see if we can control her pain without IV Dilaudid. She does have a strong support system I spoke with her at length about this in regarding she has a son that lives with her and she has disabled therefore she has a ?min such as a bedside commode at home already and including walkers. She may benefit from home health for additional support and possibly discharge sometime this weekend. Subjective Date/time seen: 01/13/25 07:19 Interval history: Patient is s/p L5-S1 complete laminectomy and bilateral facetectomy, L5-S1 complete diskectomy and interbody arthrodesis utilizing titanium interbody devices and local autograft, L5-S1 pedicle screw instrumentation left L3-4 hemilaminectomy. Today is POD 3. She notes that she is still having a rough time with her back. I Discussed with her nurse and she had IV dilaudid overnight due to severe pain. She had nausea with percocet this morning. Overall she has difficulty ambulating without pain and can barely get to the bedside commode. PT has evaluated her and was considering home health with multiple visits per week. Exam Const: Other: awake alert no acute distress moves BLE well / including IP/Q/H/PF/DF/EHL Objective Data Vital Signs Vital Signs: Vital Signs - 24 hr 01/12/25 08:30 01/12/25 14:51 01/12/25 20:11 Temperature 98.1 F 98.8 F Pulse Rate 71 96 Respiratory Rate 16 18 Blood Pressure 131/62 102/57 L Pulse Oximetry 97 94 Oxygen Delivery Room Air 01/13/25 05:57 01/13/25 06:41 Temperature 99.9 F H 98.0 F Pulse Rate 88 Respiratory Rate 18 Blood Pressure 124/64 Pulse Oximetry 94 Oxygen Delivery Intake/Output Intake/Output: Intake & Output 07/15/01/11/25 01/12/25 01/13/25 23:59 23:59 23:59 23:59 Intake Total 100 2980 1230 350 Output Total 2505 350 Balance 100 475 880 350 Meds/Results Medications: Active Medications Generic Name Dose Route Start Last Admin Trade Name Freq PRN Reason Stop Dose Admin Hydrocodone Bitart/Acetaminophen 1 tab 01/10/25 18:05 01/12/25 08:20 Hydrocodone/Acetaminophen (*Crx) 10-325 Mg Tablet PO 1 tab Q4H PRN Administration Moderate Pain (4-6) Al Hydrox/Mg Hydrox/Simethicone 20 ml 01/10/25 18:05 Mag Hydrox/Al Hydrox/Simeth 30 Ml Udc PO Q4H PRN Indigestion/Heartburn Albuterol 1 puff 01/10/25 18:23 Albuterol Sulfate (*Sp) Aerosol 1 Puff INHALATION Q4-6H PRN Wheezing Bisacodyl 10 mg 01/10/25 18:05 Bisacodyl 10 Mg Suppository RECTAL DAILY PRN Constipation Calcium Carbonate 500 mg 01/11/25 12:00 01/12/25 12:30 Calcium Carbonate (Oscal) 500 Mg Tablet PO 500 mg DAILY@1200 LANG Administration Cyclobenzaprine HCl 10 mg 01/10/25 18:05 01/13/25 06:09 Cyclobenzaprine Hcl 10 Mg Tablet PO 10 mg TID PRN Administration Muscle Spasms Docusate Sodium 100 mg 01/10/25 21:00 01/12/25 20:11 Docusate Sodium 100 Mg Capsule PO 100 mg Q12HR LANG Administration Gabapentin 300 mg 01/10/25 21:00 01/12/25 20:11 Gabapentin 300 Mg Capsule PO 300 mg Q12HR LANG Administration Hydrochlorothiazide 12.5 mg 01/11/25 09:00 01/12/25 08:25 Hydrochlorothiazide 12.5 Mg Capsule PO 12.5 mg DAILY LANG Administration Hydromorphone HCl 0.5 mg 01/10/25 18:17 01/12/25 20:15 Hydromorphone Hcl Inj (*Crx) 2 Mg/Ml Vial IV PUSH 0.5 mg Q2H PRN Administration Pain Rated 7-10 Hydroxyzine HCl 25 mg 01/10/25 18:05 01/11/25 11:01 Hydroxyzine Hcl 25 Mg Tablet PO 25 mg QID PRN Administration Anxiety Cefazolin Sodium 1 gm/ Sodium 50 mls @ 100 mls/hr 01/10/25 20:00 01/13/25 04:26 Chloride IVPB Not Given Q8H LANG Levothyroxine Sodium 50 mcg 01/11/25 06:30 01/13/25 06:11 Levothyroxine Sodium 50 Mcg Tablet PO 50 mcg DAILY@0630 LANG Administration Lisinopril 10 mg 01/11/25 09:00 01/12/25 08:25 Lisinopril 10 Mg Tablet PO 10 mg DAILY LANG Administration Loratadine 10 mg 01/10/25 18:21 01/11/25 09:40 Loratadine 10 Mg Tablet PO 10 mg DAILY PRN Administration Congestion Meclizine HCl 25 mg 01/10/25 18:05 01/11/25 11:02 Meclizine Hcl 25 Mg Tablet PO 25 mg TID PRN Administration Dizziness Or Vertigo Multivitamins Therapeutic 1 tablet 01/11/25 12:00 01/12/25 12:29 Multivitamins Therapeutic Tab (*Bkc) PO 1 tablet DAILY@1200 [facility] Administration Ondansetron HCl 4 mg 01/10/25 18:05 01/13/25 06:04 Ondansetron Inj 4 Mg/2 Ml Vial IV PUSH 4 mg Q8H PRN Administration Nausea And Vomiting Oxycodone/Acetaminophen 1 tablet 01/10/25 18:02 Oxycodone/Acetaminophen (*Crx) 5-325 Mg Tablet PO Q4H PRN Pain Rated 4-6 Oxycodone/Acetaminophen 1 tab 01/10/25 18:02 01/13/25 04:53 Oxycodone/Acetaminophen (*Crx) 10-325 Mg Tablet PO 1 tab Q4H PRN Administration Pain Rated 7-10 Pantoprazole Sodium 40 mg 01/11/25 09:00 01/12/25 08:24 Pantoprazole 40 Mg Tablet PO 40 mg QAM [facility] Administration Fluticasone/Salmeterol 2 puff 01/11/25 08:00 01/12/25 07:13 Fluticasone/Salmeterol 45-21 Mcg Inhaler 1 Puff INHALATION 2 puff DAILYRT [facility] Administration Senna/Docusate Sodium 1 tab 01/10/25 18:05 Senna/Docusate Sodium Tablet PO HS PRN Constipation Simvastatin 40 mg 01/11/25 09:00 01/12/25 08:25 Simvastatin 20 Mg Tablet PO 40 mg DAILY LANG Administration Vitamin D 25 mcg 01/11/25 09:00 01/12/25 08:24 Cholecalciferol (Vitamin D3) 25 Mcg (1,000 Units) Tablet PO 25 mcg DAILY LANG Administration Radiology Results: ITS Impressions Fluoroscopy 01/10/25 19:37 IMPRESSION: 1. Fluoroscopy utilized during instrumented L5-S1 anterior and posterior spinal fusion. See procedure note for further detail.
[2025-01-13] MEDS: FLUTICASONE/SALMETEROL 45-21 MCG INHALER 1 PUFF 2 PUFF INHALATION (07:59)
[2025-01-13 08:01] VITALS: O2SAT 93
[2025-01-13] MEDS: SIMVASTATIN 20 MG TABLET 40 MG PO (09:33)
[2025-01-13] MEDS: LORATADINE 10 MG TABLET PO (09:33)
[2025-01-13] MEDS: MECLIZINE HCL 25 MG TABLET PO (09:33)
[2025-01-13] MEDS: HYDROcodone/acetaminophen (*CRX) 10-325 MG TABLET 1 TAB PO (09:34)
[2025-01-13] MEDS: PANTOPRAZOLE 40 MG TABLET PO (09:34)
[2025-01-13] MEDS: DOCUSATE SODIUM 100 MG CAPSULE PO ×2 (09:34→20:27)
[2025-01-13] MEDS: CHOLECALCIFEROL (VITAMIN D3) 25 MCG (1,000 UNITS) TABLET PO (09:34)
[2025-01-13] MEDS: GABAPENTIN 300 MG CAPSULE PO ×2 (09:34→20:28)
[2025-01-13] MEDS: ceFAZolin 1 GM in SODIUM CHLORIDE 0.9% IV 50 ML 100 ML IVPB (11:57)
[2025-01-13] MEDS: CALCIUM CARBONATE (OSCAL) 500 MG TABLET PO (11:58)
[2025-01-13] MEDS: MULTIVITAMINS THERAPEUTIC TAB (*BKC) 1 TABLET PO (11:58)
[2025-01-13 14:06] VITALS: BP 109/67; PULSE 80; RESP 16; TEMP 37; O2SAT 93
[2025-01-13 21:21] VITALS: BP 106/56; PULSE 87; RESP 18; TEMP 37.1; O2SAT 93
[2025-01-14] MEDS: oxyCODONE/ACETAMINOPHEN (*CRX) 10-325 MG TABLET 1 TAB PO (02:52)
[2025-01-14] MEDS: LEVOTHYROXINE SODIUM 50 MCG TABLET PO (05:41)
[2025-01-14 06:27] VITALS: BP 121/58; PULSE 86; RESP 18; TEMP 37.1; O2SAT 94
[2025-01-14 08:23] VITALS: BP 105/58
[2025-01-14] MEDS: CYCLOBENZAPRINE HCL 10 MG TABLET PO (08:24)
[2025-01-14] MEDS: GABAPENTIN 300 MG CAPSULE PO (08:24)
[2025-01-14] MEDS: LORATADINE 10 MG TABLET PO (08:25)
[2025-01-14] MEDS: MECLIZINE HCL 25 MG TABLET PO (08:25)
[2025-01-14] MEDS: PANTOPRAZOLE 40 MG TABLET PO (08:25)
[2025-01-14] MEDS: HYDROcodone/acetaminophen (*CRX) 10-325 MG TABLET 1 TAB PO (08:25)
[2025-01-14] MEDS: DOCUSATE SODIUM 100 MG CAPSULE PO (08:25)
[2025-01-14] MEDS: SIMVASTATIN 20 MG TABLET 40 MG PO (08:25)
[2025-01-14] MEDS: CHOLECALCIFEROL (VITAMIN D3) 25 MCG (1,000 UNITS) TABLET PO (08:26)
--- NOTE | 2025-01-14 09:11 | WPDNEUROSGPN ---
Progress Note: A&P Assessment and Plan (1) Status post lumbar spinal arthrodesis: Code(s): Z98.1 - Arthrodesis status Status: Acute Plan Neurologically stable POD#4 from PLIF L5-S1 Patient feels able to d/c Stable for d/c F/U in office with Dr. Silvestre Time Spent With Patient Time with patient: less than 15 minutes Subjective Date/time seen: 01/14/25 09:11 Interval history: Patient remains with back pain but control improved No radiating pain, sensory change or weakness Ambulating in room voiding Exam Narrative: AWake, alert oriented x 3 Speech CF SHYAM EOMI Face= TML MAEW with good strength Incision CDI Objective Data Vital Signs Vital Signs: Vital Signs - 24 hr 01/13/25 14:06 01/13/25 20:00 01/13/25 21:21 Temperature 37.0 C 37.1 C Pulse Rate 80 87 Respiratory Rate 16 18 Blood Pressure 109/67 106/56 L Pulse Oximetry 93 93 Oxygen Delivery Room Air 01/14/25 06:27 01/14/25 08:23 01/14/25 08:28 Temperature 37.1 C Pulse Rate 86 Respiratory Rate 18 Blood Pressure 121/58 L 105/58 L Pulse Oximetry 94 Oxygen Delivery Room Air Intake/Output Intake/Output: Intake & Output 01/11/25 01/12/25 01/13/25 01/14/25 23:59 23:59 23:59 23:59 Intake Total 2980 1230 1380 660 Output Total 2505 350 Balance 056 053 0645 660 Meds/Results Medications: Active Medications Generic Name Dose Route Start Last Admin Trade Name Freq PRN Reason Stop Dose Admin Hydrocodone Bitart/Acetaminophen 1 tab 01/10/25 18:05 01/14/25 08:25 Hydrocodone/Acetaminophen (*Crx) 10-325 Mg Tablet PO 1 tab Q4H PRN Administration Moderate Pain (4-6) Al Hydrox/Mg Hydrox/Simethicone 20 ml 01/10/25 18:05 Mag Hydrox/Al Hydrox/Simeth 30 Ml Udc PO Q4H PRN Indigestion/Heartburn Albuterol 1 puff 01/10/25 18:23 Albuterol Sulfate (*Sp) Aerosol 1 Puff INHALATION Q4-6H PRN Wheezing Bisacodyl 10 mg 01/10/25 18:05 Bisacodyl 10 Mg Suppository RECTAL DAILY PRN Constipation Calcium Carbonate 500 mg 01/11/25 12:00 01/13/25 11:58 Calcium Carbonate (Oscal) 500 Mg Tablet PO 500 mg DAILY@1200 ON LICENSE OF [facility] Administration Cyclobenzaprine HCl 10 mg 01/10/25 18:05 01/14/25 08:24 Cyclobenzaprine Hcl 10 Mg Tablet PO 10 mg TID PRN Administration Muscle Spasms Docusate Sodium 100 mg 01/10/25 21:00 01/14/25 08:25 Docusate Sodium 100 Mg Capsule PO 100 mg Q12HR LANG Administration Gabapentin 300 mg 01/10/25 21:00 01/14/25 08:24 Gabapentin 300 Mg Capsule PO 300 mg Q12HR LANG Administration Hydrochlorothiazide 12.5 mg 01/11/25 09:00 01/14/25 08:26 Hydrochlorothiazide 12.5 Mg Capsule PO Not Given DAILY LANG Hydromorphone HCl 0.5 mg 01/10/25 18:17 01/12/25 20:15 Hydromorphone Hcl Inj (*Crx) 2 Mg/Ml Vial IV PUSH 0.5 mg Q2H PRN Administration Pain Rated 7-10 Hydroxyzine HCl 25 mg 01/10/25 18:05 01/13/25 09:34 Hydroxyzine Hcl 25 Mg Tablet PO 25 mg QID PRN Administration Anxiety Levothyroxine Sodium 50 mcg 01/11/25 06:30 01/14/25 05:41 Levothyroxine Sodium 50 Mcg Tablet PO 50 mcg DAILY@0630 ON LICENSE OF [facility] Administration Lisinopril 10 mg 01/11/25 09:00 01/14/25 08:25 Lisinopril 10 Mg Tablet PO Not Given DAILY LANG Loratadine 10 mg 01/10/25 18:21 01/14/25 08:25 Loratadine 10 Mg Tablet PO 10 mg DAILY PRN Administration Congestion Meclizine HCl 25 mg 01/10/25 18:05 01/14/25 08:25 Meclizine Hcl 25 Mg Tablet PO 25 mg TID PRN Administration Dizziness Or Vertigo Multivitamins Therapeutic 1 tablet 01/11/25 12:00 01/13/25 11:58 Multivitamins Therapeutic Tab (*Bkc) PO 1 tablet DAILY@1200 ON LICENSE OF [facility] Administration Ondansetron HCl 4 mg 01/10/25 18:05 01/13/25 06:04 Ondansetron Inj 4 Mg/2 Ml Vial IV PUSH 4 mg Q8H PRN Administration Nausea And Vomiting Oxycodone/Acetaminophen 1 tablet 01/10/25 18:02 Oxycodone/Acetaminophen (*Crx) 5-325 Mg Tablet PO Q4H PRN Pain Rated 4-6 Oxycodone/Acetaminophen 1 tab 01/10/25 18:02 01/14/25 02:52 Oxycodone/Acetaminophen (*Crx) 10-325 Mg Tablet PO 1 tab Q4H PRN Administration Pain Rated 7-10 Pantoprazole Sodium 40 mg 01/11/25 09:00 01/14/25 08:25 Pantoprazole 40 Mg Tablet PO 40 mg QAM LANG Administration Fluticasone/Salmeterol 2 puff 01/11/25 08:00 01/13/25 07:59 Fluticasone/Salmeterol 45-21 Mcg Inhaler 1 Puff INHALATION 2 puff DAILYRT LANG Administration Senna/Docusate Sodium 1 tab 01/10/25 18:05 Senna/Docusate Sodium Tablet PO HS PRN Constipation Simvastatin 40 mg 01/11/25 09:00 01/14/25 08:25 Simvastatin 20 Mg Tablet PO 40 mg DAILY LANG Administration Vitamin D 25 mcg 01/11/25 09:00 01/14/25 08:26 Cholecalciferol (Vitamin D3) 25 Mcg (1,000 Units) Tablet PO 25 mcg DAILY LANG Administration Radiology Results: ITS Impressions Fluoroscopy 01/10/25 19:37 IMPRESSION: 1. Fluoroscopy utilized during instrumented L5-S1 anterior and posterior spinal fusion. See procedure note for further detail.
[2025-01-14] MEDS: FLUTICASONE/SALMETEROL 45-21 MCG INHALER 1 PUFF 2 PUFF INHALATION (09:38)
[2025-01-14 09:39] VITALS: O2SAT 95
[2025-01-14] MEDS: ALBUTEROL SULFATE (*SP) AEROSOL 1 PUFF INHALATION (09:39)
--- NOTE | 2025-02-22 13:52 | PM.DS ---
DS: Admitting Diagnosis Discharge Date 01/14/25 Admitting Diagnosis L5-S1 foraminal stenosis and spondylosis, L3-4 stenosis DS: Discharge Diagnosis Discharge Diagnosis (1) Lumbar stenosis: Code(s): M48.061 - Spinal stenosis, lumbar region without neurogenic claudication Status: Acute (2) Foraminal stenosis of lumbosacral region: Code(s): M48.07 - Spinal stenosis, lumbosacral region Status: Acute (3) Lumbosacral spondylosis: Code(s): M47.817 - Spondylosis without myelopathy or radiculopathy, lumbosacral region Status: Acute DS: Summary Hospital Course Hospital Course: Patient was taken to the operating room on 01/10/2025 with the aforementioned L5-S1 posterior lumbar interbody fusion and L3-4 hemilaminectomy was without complication. Patient went to the floor postoperatively. She noted the resolution of her leg pain. She had significant back pain which became her greatest issue during her hospitalization. On postoperative day 2 her Garcia catheter and drain removed. It took until postoperative for for her pain to be under control with by mouth pain medicine. At the time of discharge she was eating, ambulating, emptying her bladder her pain was under control with by mouth pain medicine. Her wound remained clean, dry and intact. She was afebrile with stable vital signs. She was therefore allowed to be discharged Time Spent with Patient Time attestation: Total time spent providing and/or coordinating discharge services: Discharge Plan Discharge Attending physician on discharge: Hao Silvestre Consulting providers: Roque Van; Joselyn Villarreal; Rajiv Otero; Blake Connor Discharging Clinician: Joselyn Rojas Anticipated Discharge Date/Time: 01/14/25 11:14 Patient Disposition: Home with Home Health Service Activity: october shower Diet: as tolerated Wound Care Instructions: incision open to air Discharge Instructions: [facility] to follow patient for PT/OT/Nursing Phone #: [phone] Patient Language: Georgian Stand Alone Forms: General Discharge Information, General Discharge Instructions Follow-up/Referrals: Figueroa,Darwin Laird MD [Primary Care Provider] - 1 Week Hao Silvestre MD [Physician] - Keep Reg. Scheduled Appt. Discharge Medications: Continued Dulera 100-5 mcg/actuation Hfa Aerosol Inhaler 2 puff INHALATION Q12H calcium carbonate [Calcium 600] 600 mg calcium (1,500 mg) tablet 600 mg PO DAILY albuterol sulfate 90 mcg/actuation aerosol powdr breath activated 1 inh inhalation Q4-6H PRN (Reason: Wheezing) cetirizine 10 mg tablet 10 mg PO DAILY PRN (Reason: Congestion) gabapentin 300 mg capsule 300 mg PO Q12H hydroxyzine HCl 25 mg tablet 25 mg PO QID PRN (Reason: Anxiety) levothyroxine 50 mcg capsule 50 mcg PO DAILY meclizine 25 mg tablet 25 mg PO TID PRN (Reason: Dizziness Or Vertigo) pantoprazole 40 mg tablet,delayed release (DR/EC) 40 mg PO QAM simvastatin 40 mg tablet 40 mg PO DAILY hydrochlorothiazide 12.5 mg capsule 12.5 mg PO DAILY lisinopril 10 mg tablet 10 mg PO DAILY cholecalciferol (vitamin D3) 25 mcg (1,000 unit) capsule 25 mcg PO DAILY cyclobenzaprine 10 mg Tablet 10 mg PO TID PRN (Reason: Muscle Spasms) 10 Days Qty: 30 0RF multivitamin Tablet 1 tablet PO DAILY cholecalciferol (vitamin D3) 250 mcg (10,000 unit) Capsule 250 mcg PO DAILY meloxicam 15 mg tablet 15 mg PO DAILY budesonide-formoterol [Symbicort] 80-4.5 mcg/actuation HFA aerosol inhaler 2 inh inhalation DAILY budesonide 6 mg Capsule, Extended Release 6 mg PO DAILY Held clopidogrel 75 mg Tablet 75 mg PO DAILY Hold Instructions: Resume on 01/21/25. No Action sennosides-docusate sodium [Senokot-S] 8.6-50 mg tablet 2 tab-cap PO BID PRN (Reason: Constipation) 7 Days Qty: 28 0RF oxycodone-acetaminophen 5-325 mg tablet 1 - 2 tablet PO Q6H PRN (Reason: pain) Qty: 40 0RF cyclobenzaprine 10 mg tablet 10 mg PO TID PRN (Reason: muscle spasm) Qty: 20 0RF ondansetron 4 mg tablet,disintegrating 4 mg PO Q6H PRN (Reason: nausea and vomiting) Qty: 30 0RF methylprednisolone [Medrol (Johann)] 4 mg tablets,dose pack See Rx Instructions PO PER PKG DIR Qty: 21 0RF Rx Instructions: PO PER PKG DIR Date of admission: 01/10/25 18:05 Primary Care Provider: Figueroa,Darwin Laird Admitting Provider: Hao Silvestre Attending physician on admission: Joselyn Rojas Condition: Improved
== END 2025-01-14 10:58 | disposition home health service (06) | DRG 451 ==
LOC: ANH3MED 18:12
PROVIDERS: Admitting Provider Neurological Surgery; PCP Internal Medicine; Visit Provider Neurological Surgery
PROC: 0SB40ZZ Excision of Lumbosacral Disc, Open Approach (ICD-10-PCS; CPT 22612; principal; 2025-01-10 12:00)
DX: M48.062 Spinal stenosis, lumbar region with neurogenic claudication (principal); M47.817 Spondylosis without myelopathy or radiculopathy, lumbosacral region; Z98.1 Arthrodesis status; E03.9 Hypothyroidism, unspecified; E78.5 Hyperlipidemia, unspecified; I10 Essential (primary) hypertension; I34.1 Nonrheumatic mitral (valve) prolapse; J45.909 Unspecified asthma, uncomplicated; Z87.891 Personal history of nicotine dependence; Z90.49 Acquired absence of other specified parts of digestive tract
CPT/HCPCS: 94640; 97110; 97116; 97161; 97165; 97530; 97535; 99199; J0690; A9270; C1713; J1100; J1171; J2003; J2004; J2405; J2704; J3010; J3480; J7120

== ENCOUNTER 2025-02-17 09:17 | Outpatient (CLI) | payer MEDICARE, OTHER, SELFPAY ==
--- OUTSIDE RECORDS SUMMARY | 2019-02-17 05:15 | XMS_ITS | Continuity of Care Document ---
Author Organization [facility] Address [address] [place] [address] Phone Care Team Providers Care Retail Client Solutions Analyst Name Role Phone Joao Mena OD Unavailable Unavailable Allergies, Adverse Reactions, Alerts Substance Reaction Status Criticality ibuprofen Active No Information TETANUS TOXOID,FLUID Active No Info rmation STRAWBERRY EXTRACT Active No Inform ation kiwi Active No Information Fish Containing Products Active No Information latex Active No Information TETANUS ANTITOXIN Active No Informa tion hydrocodone Active No Information meperidine Active No Information Sulfa (Sulfonamide Antibiotics) Active No Information codeine Active No Information PENICILLIN Active No Information Medications Medication Instructions Dosage Effective Dates (start - stop) Status Comments metoprolol tartrate 25 mg tablet take 1 tablet by oral route 2 times every day 25 MG - Active multivitamin capsule take 1 capsule by oral route every day - Active hydrochlorothiazide 25 mg tablet take 1 tablet by oral route every day 25 MG - Active tramadol 50 mg tablet take 1 tablet by oral route every 6 hours as needed 50 MG - Active cetirizine 10 mg tablet take 1 tablet by oral route every day 10 MG - Active Tirosint 50 mcg capsule take 1 capsule b y oral route every day 50 MCG - Active meloxicam 15 mg tablet take 1 tablet by oral route every day 15 MG - Active gabapentin 300 mg capsule take 1 capsule by oral route 3 times every day 300 MG - Active fluticasone propionate 50 mcg/actuation nasal spray,suspension inhale 1 spray by intranasal route every day in each nostril 50 MCG - Active Dulera 100 mcg-5 mcg/actuation HFA aerosol inhaler inhale 2 puff by inhalation route 2 times every day in the morning and evening 2.00 puff - Active simvastatin 40 mg tablet take 1 tablet b y oral route every day in the evening 40 MG - Active meclizine 25 mg tablet take 1 tablet by oral route 3 times every day as needed 25 MG - Active ProAir RespiClick 90 mcg/actuation breath activated inhale 2 puff by inhalation route every 4 - 6 hours as needed 180 MCG - Active Vitamin D3 1,000 unit capsule take 1 by oral route every day 1 - Active Procedures Procedure Date Post-op Follow-up Visit No Charge Refraction After Cataract Laser Surgery Post-op Follow-up Visit No Charge Refraction After Cataract Laser Surgery Office/outpatient Visit, [facility] Advance Directives Directive Yes / No Effective Date File Name No Information Encounters Encounter Description Practice Location Reason(s) For Visit Diagnoses Date Provider Providers Copied on Encounter [facility] Online Prasad [facility], [address] [facility] [address], [place], [place], [address], [place] tel:[phone] [employer] GODINEZ Professional Post-Op (chief complaint) Post op visit 9 Trina BURGOS Joao. [address] [facility] [place], [address], [place], [address], [place]. tel:[phone] Referring Provider: Demetrio Pinzon OD, [employer] [address] [place] [address], [address]. tel:[phone] [facility]uspH[facility] HealthcareClearView™ Audio [facility], [address], [place], [place], [address], [place] tel:[phone] [employer] HERBERT Professional YAG PC (chief complaint) Post op visitOther secondary cataract, right eye 9 Maxwell Pearce. [address] [facility], [address], [place], [place], [address], [place]. tel:[phone] Referring Provider: Demetrio Pinzon OD, [employer] [address] [place] [address], [address]. tel:[phone] Office/[facility]pa tient [facility] [employer] [place], [facility], [address], [place], [place], [address], [place] tel:[phone] SEC [place] Professional YAG PC (chief complaint) Presence of intraocular lensOther secondary cataract, bilateralEndot helial corneal dystrophy 9 Maxwell Pearce. [address] [facility], [address], [place], [place], [address], [place]. tel:[phone] Referring Provider: Demetrio Pinzon OD, [employer] [address] [facility], [place], [address]. tel:[phone] Family History Family Member Type Diagnosis Age At Onset Mother Problem (finding) Diabetes mellitus Payers Payer name Insurance type Covered constitution party ID Authoriza tion(s) No Information Social History Type Description Quantity Date Captured Comments Alcohol Use Details Unknown Caffeine Use Details Unknown Tobacco Use Status Ex-cigarette smoker 019 Smoking Status Former smoker Smoking Tobacco Use Details Cigarette: Age Stopped: 53 Cigarette: No Details Available Sex Female Chief Complaint And Reason For Visit From encounter dated '02/17/2019 10:15'. Post-Op (chief complaint). Description: The 69 year old female presents for a 3 week post op YAG PCOD. Patient states vision OD is alot better and everything is alot brighter. Reason For Referral Reason For Referral No Information Plan Of Treatment Date Type Action Status Patient Education Learning About YAG Lase r Capsulotomy completed Patient Education Learning About YAG Lase r Capsulotomy completed History Of Present Illness Encounter Date Complaint History Of Prese nt Illness Post-Op The 69 year old female presents for a 3 week post op YAG PC OD. Patient states vision OD is alot better and everything is alot brighter. YAG PC The 69 year old female presents for evaluation of YAG PC in the right eye and 1 month s/p YAG PC OS. Hx of PCIOL OU and YAG PC OS. Patient states VA is great in the left eye since the laser but she is still seeing floaters. c/o with the right eye is difficulty seeing at night due to glare over the last couple of months. YAG PC The 68 year old female presents for evaluation of YAG PC in the right eye and left eye. Hx of PCIOL OU. Patient states she has difficulty seeing people at a distance, trouble seeing road signs until she is up on them, and difficulty reading small print on her Frida. Functional Status Date Functional Assessmen t No Information Instructions Date Instruction Additional Infor oli RTC PRN Related to Post op visit Impression/Plan Related to Post op visit Impression/Plan Impression/Plan Assessments Type Assessment Date assessment Post op visit impression Post op visit: Z09 Patient Care Teams Name Effective Dates (start - stop) Status Members No Information
--- NOTE | ~2025-02-17 | XR_ITS ---
EXAMINATION: XR lumbar spine 2-3V DATE: 02/17/2025 09:40 INDICATION: Low back pain TECHNIQUE: 3 images of the lumbar spine were obtained COMPARISON: MRI lumbar spine 09/24/2024 FINDINGS: There are 3 orthopedic screws traversing the left sacroiliac joint without radiographic evidence for loosening of the hardware. Bones appear osteopenic. Please note that osteopenia limits sensitivity for detecting fractures by radiographs. MRI or bone scan can be obtained if clinically indic ated. Posterior spinal fusion of L5 and S1 with transpedicular screws and vertical rods. Interbody fusion devices are noted at the L5-S1 level. Laminectomy at the L5 level. No compression fracture in the lumbar spine. Severe intervertebral disc space narrowing at the L4-L5 level. Moderate intervertebral disc space narrowing throughout the remainder of the lumbar spine. There is straightening of the normal lumbar lordosis. IMPRESSION: 1. Posterior spinal fusion of L5 and S1. 2. Severe intervertebral disc space narrowing at L4-L5 level. 3. Straightening of the normal lumbar lordosis. If symptoms persist or worsen, consider an MRI of the lumbar spine for further assessment. Reviewed, dictated and finalized at location Q.
--- OUTSIDE RECORDS SUMMARY | 2025-02-17 09:20 | XMS_ITS | Encounter Summary ---
Author Organization [facility] Address [address] [place] [address] Phone Care Team Providers Care Parlor Maid Name Role Phone Luann Cox MD Primary Care Provider + [phone] Josiane Pacheco MD Primary Care Provider + [phone] Blair Paris MD Unavailable [phone] Jose A Espinosa MD Unavailable [phone] Darwin Marti MD Primary Care Provider [phone] Hao Silvestre MD Unavailable [phone] Carlos Dailey MD Unavailable Saida Mckeon APRN, IMMIGRATION PATROL INSPECTOR Unavailable Jessenia Ward APRN, FREELANCE WEB DESIGNER Unavailable + [phone] Hao Silvestre MD Unavailable [phone] Dominic Wang MD Unavailable [phone] Butch Muñiz MD Unavailable [phone] Reason for Visit * Reason Comments Medication Refill Encounter Details Date Type Department Care Team (Late st Contact Info) Description 01/02/2021 Refill [facility] - [place] [address] [place] [id number] Luann Cox MD [address] [place] [address] Medication Refill Social History Tobacco [...] Dept 09/06/20 Office Visit Luann Cox MD [facility] 07/24/20 Office Visit Luann Cox MD [facility] 01/12/20 Office Visit Luann Cox MD [facility] Showing recent visits within past 365 days and meeting all other requirements Future Appointments Date Type Provider Dept 03/07/21 Appointment Luann Cox MD [facility] Showing future appointments within next 90 days [...] Spinal stenosis, lumbar region, with neurogenic claudication [facility] Luann Cox MD 5 months ago Uncomplicated asthma [facility] Luann Cox MD 11 months ago Essential hypertension [facility] Luann Cox MD 1 year ago Essential hypertension [facility] Luann Cox MD 1 year ago Essential hypertension [facility] Luann Cox MD Upcoming Appointments Future Appointments In 2 months Luann Cox MD [facility] - Recent and Past Visits Recent Visits Date Type Provider Dept 09/06/20 Office Visit uLann Cox MD [facility] 07/24/20 Office Visit Luann Cox MD [facility] 01/12/20 Office Visit Luann Cox MD [facility] Showing recent visits within past 460 days with a meds authorizing provider and meeting all other requirements Future Appointments Date Type Provider Dept 03/07/21 Appointment Luann Cox MD [facility] Showing future appointments within next 90 days [...] Dept 09/06/20 Office Visit Luann Cox MD [facility] 07/24/20 Office Visit Luann Cox MD [facility] 01/12/20 Office Visit Luann Cox MD [facility] Showing recent visits within past 365 days and meeting all other requirements Future Appointments Date Type Provider Dept 03/07/21 Appointment Luann Cox MD [facility] [employer] Showing future appointments within next 90 days [...] Dept 09/06/20 Office Visit Luann Cox MD [facility] 07/24/20 [facility] 01/12/20 Office Visit Luann Cox MD [facility] Showing recent visits within past 365 days and meeting all other requirements Future Appointments Date Type Provider Dept 03/07/21 Appointment Luann Cox MD [facility] Showing future appointments within next 90 days and meeting all other requirements [facility]: Antiulcer - Proton Pump Inhibitors Passed - 01/02/2021 12:58 PM Passed - Valid encounter within last 12 months Past Office Visits Recent Outpatient Visits 3 months ago Spinal stenosis, lumbar region, with neurogenic claudication [facility] Luann Cox MD 5 months ago Uncomplicated asthma [facility] Luann Cox MD 11 months ago Essential hypertension [facility] Luann Cox MD 1 year ago Essential hypertension [facility] Luann Cox MD 1 year ago Essential hypertension [facility] Luann Cox MD Upcoming Appointments Future Appointments In 2 months Luann Cox MD [facility] EXPERIMENTAL AIRCRAFT MECHANIC - Recent and Past Visits Recent Visits Date Type Provider Dept 09/06/20 Office Visit Luann Cox MD [facility] 07/[facility]/20 Office Visit Luann Cox MD [facility] 01/12/20 Office Visit Luann Cox MD [facility] Showing recent visits within past 460 days with a meds authorizing provider and meeting all other requirements Future Appointments Date Type Provider Dept 03/07/21 Appointment Luann Cox MD [facility] Showing future appointments within next 90 days with a meds authorizing provider and meeting all other requirements documented in this encounter Plan of Treatment Upcoming Encounters Date Type Department Care Team (Late st Contact Info) Description 02/20/2025 9:30 AM CDT Office Visit [facility] Neurology [facility] [address] [place] [address] Jessenia Ward APRN, FREELANCE WEB DESIGNER [address] [place] [address] 03/09/2025 2:30 PM CDT Office Visit [facility] Medical [facility] - Family Medicine - [place] [address] [place] [address] Juan Shrestha MD [address] [address] documented as of this encounter Visit Diagnoses [...] - 19 05/07/2023 05/07/2023 05/07/2023 9:50 AM PIT INSPECTOR COVID - 19 Confirmed 05/07/2023 05/07/2023 023 12:16 AM PIT INSPECTOR C. difficile Rule-Out 09/24/2023 09/24/20232023 3:41 PM CDT COVID - 19 09/24/2023 09/24/2023 09/24/2023 11:3 2 AM CDT C. difficile Rule-Out 09/27/2023 09/27/20232023 2:13 PM CDT COVID - 19 02/23/2024 02/23/2024 02/23/2024 11:2 8 AM CDT Respiratory Rule-Out 02/23/2024 02/23/2024 024 11:30 AM CDT Assessment Noted Time PHQ-9 Depression Total Score: 2 07/14/19 20 10:00 AM PIT INSPECTOR documented as of this encounter Care Teams Parlor Maid Relationship Specialty Start Date End Date Luann Cox MD PCP - General Family Medicine 04/15/15 11/02/22 Josiane Pacheco MD [address] [place] [address] PCP - General Family Medicine 11/20/22 07/30/23 Darwin Marti MD [address] [place] [address] PCP - General Internal Medicine 07/31/23 Blair Paris MD [address] [facility] [address] [place] [address] Consulting Physician Orthopaedic Sports Medicine 07/31/23 Jose A Espinosa MD 2 [facility] [address] [place] [address] Consulting Physician Pain Medicine-Pain Management 07/31/23 02/08/24 Hao Silvestre MD [address] [address] Consulting Physician Neurological Surgery 07/31/23 Carlos Dailey MD [address] [facility] [address] [place] [address] Consulting Physician Colon and Rectal Surgery 10/26/23 Saida Mckeon APRN, IMMIGRATION PATROL INSPECTOR [address] [place] [address] Nurse Practitioner Gastroenterology 10/26/23 Jessenia Ward APRN, FREELANCE WEB DESIGNER [address] [place] [address] Nurse Practitioner Neurology 11/17/23 Hao Silvestre MD [address] [address] Consulting Physician Neurological Surgery 02/09/2401/27 Dominic Wang MD [address] [place] [address] Consulting Physician Pain Medicine-Pain Management 02/09/24 Butch Muñiz MD [address] [place] [address] Consulting Physician Neurology 02/23/24 documented as of this encounter
--- OUTSIDE RECORDS SUMMARY | 2025-02-17 09:20 | XMS_ITS | Encounter Summary ---
Author Organization [facility] Address [address] [place] [address] Phone Care Team Providers Care Real Estate Valuer Name Role Phone Luann Cox MD Primary Care Provider + [phone] Josiane Pacheco MD Primary Care Provider + [phone] Blair Paris MD Unavailable [phone] Jose A Espinosa MD Unavailable [phone] Darwin Marti MD Primary Care Provider [phone] Hao Silvestre MD Unavailable +[phone] Carlos Dailey MD Unavailable Saida Mckeon APRN, SALESPERSON DRIVER Unavailable Jessenia Ward APRN, CAREER CENTER DIRECTOR Unavailable + [phone] Hao Silvestre MD Unavailable +[phone] Dominic Wang MD Unavailable [phone] Butch Muñiz MD Unavailable +[phone] Reason for Visit * Reason Comments Medication Refill Encounter Details Date Type Department Care Team (Late st Contact Info) Description 10/06/2020 Refill [facility] [address] [place] [address] Luann Cox MD [address] [place] [address] Medication Refill Social History Tobacco [...] COVID-19? No / Unsure 09/06/2020 11:36 AM LANCE CREWMEMBER documented as of this encounter Miscellaneous Notes [...] Spinal stenosis, lumbar region, with neurogenic claudication [facility] Luann Cox MD 2 months ago Uncomplicated asthma [facility] Luann Cox MD 9 months ago Essential hypertension [facility] Luann Cox MD 1 year ago Essential hypertension [facility] Luann Cox MD 1 year ago Essential hypertension [facility] Luann Cox MD Upcoming Appointments Future Appointments In 5 months Luann Cox MD [facility] - Recent and Past Visits Recent Visits Date Type Provider Dept 09/06/20 Office Visit Luann Cox MD [facility] 07/24/20 Office Visit Luann Cox MD [facility] 01/12/20 Office Visit Luann Cox MD [facility] 07/14/19 Office Visit Luann Cox MD [facility] Showing recent visits within past 460 [...] Spinal stenosis, lumbar region, with neurogenic [facility]aud[facility] MD 2 months ago Uncomplicated asthma [facility] Luann Cox MD 9 months ago Essential hypertension [facility] Luann Cox MD 1 year ago Essential hypertension [facility] Luann Cox MD 1 year ago Essential [facility] Upcoming Appointments Future Appointments In 5 months Luann Cox MD [facility] - Recent and Past Visits Recent Visits Date Type Provider Dept 09/06/20 Office Visit Luann Cox MD [facility] 07/24/20 Office Visit Luann Cox MD [facility] 01/12/20 Office Visit Luann Cox MD [facility] 07/14/19 Office Visit Luann Cox MD [facility] Showing recent visits within past 460 [...] Office Visit [facility] Neurology [facility] #2 [place] [address] Jessenia Ward APRN, CAREER CENTER DIRECTOR #2 [place] [address] 03/09/2025 2:30 PM CDT Office Visit [facility] #2 [place] [address] Juan Shrestha MD #[address] [address] documented as of this encounter Visit Diagnoses Diagnosis Gastroesophageal reflux disease Esophageal reflux documented in this encounter Additional Health Concerns Infection Onset Date Last Indicated Resolved Time ESBL 08/16/2018 08/16/2018 09/28/2023 9:03 AM CDT COVID - 19 03/09/2023 03/09/2023 03/19/2023 12:1 6 AM CDT Respiratory Rule-Out 03/09/2023 03/09/2023 023 2:09 AM CDT COVID - 19 05/07/2023 05/07/2023 05/07/2023 9:50 AM LANCE CREWMEMBER COVID - 19 Confirmed 05/07/2023 05/07/2023 023 12:16 AM LANCE CREWMEMBER C. difficile Rule-Out 09/24/2023 09/24/20232023 3:41 PM CDT COVID - 19 09/24/2023 09/24/2023 09/24/2023 11:3 2 AM CDT C. difficile Rule-Out 09/27/2023 09/27/20232023 2:13 PM CDT COVID - 19 02/23/2024 02/23/2024 02/23/2024 11:2 8 AM CDT Respiratory Rule-Out 02/23/2024 02/23/2024 024 11:30 AM CDT Assessment Noted Time PHQ-9 Depression Total Score: 2 07/14/19 20 10:00 AM LANCE CREWMEMBER documented as of this encounter Care Teams Real Estate Valuer Relationship Specialty Start Date End Date Luann Cox MD PCP - General Family Medicine 04/15/15 11/02/22 Josiane Pacheco MD [address] [place] [address] PCP - General Family Medicine 11/20/22 07/30/23 Darwin Marti MD [address] [place] [address] PCP - General Internal Medicine 07/31/23 Blair Paris MD 4 [facility] [address] [place] [address] Consulting Physician Orthopaedic Sports Medicine 07/31/23 Jose A Espinosa MD 2 [facility] [address] [place] [address] Consulting Physician Pain Medicine-Pain Management 07/31/23 02/08/24 Hao Silvestre MD [address] [address] Consulting Physician Neurological Surgery 07/31/23 Carlos Dailey MD #[address] [address] Consulting Physician Colon and Rectal Surgery 10/26/23 Saida Mckeon APRN, SALESPERSON DRIVER #2 [place] [address] Nurse Practitioner Gastroenterology 10/26/23 Jessenia Ward, FIELD SUPPORT ENGINEER, CAREER CENTER DIRECTOR #2 [place] [address] Nurse Practitioner Neurology 11/17/23 Hao Silvestre MD [address] [address] Consulting Physician Neurological Surgery 02/09/2401/27 Dominic Wang MD #2 [place] [address] Consulting Physician Pain Medicine-Pain Management 02/09/24 Butch Muñiz MD #2 [place] [address] Consulting Physician Neurology 02/23/24 documented as of this encounter
--- OUTSIDE RECORDS SUMMARY | 2025-02-17 09:20 | XMS_ITS | Encounter Summary ---
Author Organization [facility] Address [address] [place] [address] Phone Care Team Providers Care Business Performance Specialist Name Role Phone Luann Cox MD Primary Care Provider + [phone] Josiane Pacheco MD Primary Care Provider + [phone] Blair Paris MD Unavailable +[phone] Jose A Espinosa MD Unavailable [phone] Darwin Marti MD Primary Care Provider +[phone] Hao Silvestre MD Unavailable +[phone] Carlos Dailey MD Unavailable Saida Mckeon APRN, MOLDING MANAGER Unavailable Jessenia Ward APRN, JIVE DEVELOPER Unavailable +[phone] Hao Silvestre MD Unavailable [phone] Dominic Wang MD Unavailable [phone] Butch Muñiz MD Unavailable Reason for Visit * Reason Comments Medication Refill Encounter Details Date Type Department Care Team (Late Contact Info) Description 11/11/2020 [facility] [address] [place] [id number] Luann Cox MD [address] [place] [address] Medication Refill Social History Tobacco [...] Office Visit [facility] Neurology [facility] #2 [place] [address] Jessenia Ward, ROAD ROLLER OPERATOR HOT MIX, JIVE DEVELOPER #2 [place] [address] 03/09/2025 2:30 PM CDT Office Visit [facility] [place] #2 [place] [address] Juan Shrestha MD #[address] [address] documented as of this encounter Visit Diagnoses Diagnosis Essential hypertension Unspecified essential hypertension documented in this encounter Additional Health Concerns Infection Onset Date Last Indicated Resolved Time ESBL 08/16/2018 08/16/2018 09/28/2023 9:03 AM CDT COVID - 19 03/09/2023 03/09/2023 03/19/2023 12:1 6 AM CDT Respiratory Rule-Out 03/09/2023 03/09/2023 023 2:09 AM CDT COVID - 19 05/07/2023 05/07/2023 05/07/2023 9:50 AM MCAT TUTOR COVID - 19 Confirmed 05/07/2023 05/07/2023 023 12:16 AM MCAT TUTOR C. difficile Rule-Out 09/24/2023 09/24/20232023 3:41 PM CDT COVID - 19 09/24/2023 09/24/2023 09/24/2023 11:3 2 AM CDT C. difficile Rule-Out 09/27/2023 09/27/20232023 2:13 PM CDT COVID - 19 02/23/2024 02/23/2024 02/23/2024 11:2 8 AM CDT Respiratory Rule-Out 02/23/2024 02/23/2024 024 11:30 AM CDT Assessment Noted Time PHQ-9 Depression Total Score: 2 07/14/19 20 10:00 AM MCAT TUTOR documented as of this encounter Care Teams Business Performance Specialist Relationship Specialty Start Date End Date Luann Cox MD PCP - General Family Medicine 04/15/15 11/02/22 Josiane Pacheco MD [address] [place] [address] PCP - General Family Medicine 11/20/22 07/30/23 Darwin Marti MD [address] [place] [address] PCP - General Internal Medicine 07/31/23 Blair Paris MD 4 [facility] [address] [place] [address] Consulting Physician Orthopaedic Sports Medicine 07/31/23 Jose A Espinosa MD 2 [facility] [address] [place] [address] Consulting Physician Pain Medicine-Pain Management 07/31/23 02/08/24 Hao Silvestre MD [address] [place] [address] Consulting Physician Neurological Surgery 07/31/23 Carlos Dailey MD #[address] [address] Consulting Physician Colon and Rectal Surgery 10/26/23 Saida Mckeon APRN, MOLDING MANAGER #[address] [place] [address] Nurse Practitioner Gastroenterology 10/26/23 Jessenia Ward APRN, JIVE DEVELOPER #[address] [place] [address] Nurse Practitioner Neurology 11/17/23 Hao Silvestre MD [address] [address] Consulting Physician Neurological Surgery 02/09/2401/27 Dominic Wang MD #2 [place] [address] Consulting Physician Pain Medicine-Pain Management 02/09/24 Butch Muñiz MD #2 [place] [address] Consulting Physician Neurology 02/23/24 documented as of this encounter
--- OUTSIDE RECORDS SUMMARY | 2025-02-17 09:20 | XMS_ITS | Encounter Summary ---
Author Organization [facility] Address [address] [place] [address] Phone Care Team Providers Care Hair Or Beauty Salon Assistant Name Role Phone NaidaalisBlair guerrero MD Unavailable [phone] Darwin Marti MD Primary Care Provider [phone] Hao Silvestre MD Unavailable [phone] Carlos Dailey MD Unavailable Saida Mckeon APRN, CUSTOMER RESPONSE REPRESENTATIVE Unavailable Jessenia Ward APRN, MED SPECIALIST Unavailable + [phone] Dominic Wang MD Unavailable [phone] Butch Muñiz MD Unavailable [phone] Reason for Visit * Reason Onset Date Comments Cough 02/23/2024 Chest Congestion 02/23/2024 Encounter Details Date Type Department Care Team (Late st Contact Info) Description 02/23/2024 Nurse Triage [facility] [address] [place] [address] Darwin Marti MD [address] [place] [address] Cough; Chest Congestion Social History Tobacco Use Types Packs/Day Years Used Date Smoking Tobacco: Former Cigarettes 2 41.8 1 964 - 04/09/2005 Smokeless Tobacco: Never Alcohol Use Standard Drinks/Week Comments No 0 (1 standard drink = 0.6 oz pur e alcohol) [facility] Utilities Answer Date Recorded In the [...] week 09/26/2023 How often do you attend [facility] ch or mandaen services? Never 09/26/2023 Do you belong to any clubs o r organizations such as anglican groups, unions, fraternal or athletic groups, or [...] Answer Date Recorded PHQ-2 Score 2 07/14/2019 [facility] of Occupat ional Health - Occupational Stress [...] place to sleep or slept in a fci (including now)? No 09/26/2023 Sexually Active Control [...] AM Butch Muñiz [facility] - Neurology - [place] [phone] 02/23/2024 11:00 AM Darwin Marti [facility] - Primary Care - [place] [phone] Patient states that her medications and allergies [...] CDT Office Visit [facility] - Neurology [facility] #2 [place] [address] Jessenia Ward APRN, MED SPECIALIST #2 [place] [address] 03/09/2025 2:30 PM CDT Office Visit [facility] - Family Medicine - [place] #2 [place] [address] Juan Shrestha MD #[address] [address] documented as of this encounter Visit Diagnoses Not on filedocumented in this encounter Additional Health Concerns Infection Onset Date Last Indicated Resolved Time COVID - 19 02/23/2024 02/23/2024 02/23/2024 11:2 8 AM CDT Respiratory Rule-Out 02/23/2024 02/23/2024 024 11:30 AM CDT Assessment Noted Time PHQ-9 Depression Total Score: 0 07/31/19 24 12:53 PM DINING SERVER documented as of this encounter Care Teams Hair Or Beauty Salon Assistant Relationship Specialty Start Date End Date Darwin Marti MD [address] [place] [address] PCP - General Internal Medicine 07/31/23 Blair Paris MD [address] [place] [address], [facility] [address] [place] [address] Consulting Physician Orthopaedic Sports Medicine 07/31/23 Hao Silvestre MD [facility] [address] [place] [address] Consulting Physician Neurological Surgery 07/31/23 Carlos Dailey MD #[address] [address] Consulting Physician Colon and Rectal Surgery 10/26/23 Saida Mckeon APRN, CUSTOMER RESPONSE REPRESENTATIVE #[address] [place] [address] Nurse Practitioner Gastroenterology 10/26/23 Jessenia Ward APRN, MED SPECIALIST #[address] [place] [address] Nurse Practitioner Neurology 11/17/23 Dominic Wang MD #2 [place] [address] Consulting Physician Pain Medicine-Pain Management 02/09/24 Butch Muñiz MD #2 [place] [address] Consulting Physician Neurology 02/23/24 documented as of this encounter
--- OUTSIDE RECORDS SUMMARY | 2025-02-17 09:20 | XMS_ITS | Encounter Summary ---
Author Organization [facility] Address [address] [place] [address] Phone Care Team Providers Care Voice Network Administrator Name Role Phone Blair Paris MD Unavailable [phone] Jose A Espinosa MD Unavailable [phone] Darwin Marti MD Primary Care Provider [phone] Hao Silvestre MD Unavailable [phone] Carlos Dailey MD Unavailable Saida Mckeon APRN, ECHOCARDIOGRAPH TECHNICIAN Unavailable Jessenia Ward APRN, [facility] Unavailable + [phone] Hao Silvestre MD Unavailable [phone] Dominic Wang MD Unavailable Butch Muñiz MD Unavailable [phone] Reason for Visit * Reason Comments Medication Refill Encounter Details Date Type Department Care Team (Late st Contact Info) Description 10/29/2023 Refill [facility] #[address] [place] [address] Darwin Marti MD [address] [place] [address] Medication Refill Social History Tobacco Use Types Packs/Day Years Used Date Smoking Tobacco: Former Cigarettes 2 41.8 1 964 - 04/09/2005 Smokeless Tobacco: Never Alcohol Use Standard Drinks/Week Comments No 0 (1 standard drink = 0.6 oz pur e alcohol) [facility] Utilities Answer Date Recorded In the past 12 months has [employer], gas, oil, or water Compliance 11 threatened to shut off services in your [...] often do you attend chur ch or druze services? Never 09/26/2023 Do you belong to any clubs o r organizations such as denominational groups, unions, fraternal or athletic groups, or [...] Answer Date Recorded PHQ-2 Score 2 07/14/2019 [facility] of Occupat ional Health - Occupational Stress [...] AM CDT Office Visit [facility] - Neurology [facility] #2 [place] [address] Jessenia Ward, COSTUME SEAMSTRESS, SURGICAL TECHNOLOGY INSTRUCTOR #2 [place] [address] 03/09/2025 2:30 PM CDT Office Visit [facility] - Family Medicine [facility] #2 [place] [address] Juan Shrestha MD #[address] [address] documented as of this encounter Visit Diagnoses Not on filedocumented in this encounter Additional Health Concerns Infection Onset Date Last Indicated Resolved Time COVID - 19 02/23/2024 02/23/2024 02/23/2024 11:2 8 AM CDT Respiratory Rule-Out 02/23/2024 02/23/2024 024 11:30 AM CDT Assessment Noted Time PHQ-9 Depression Total Score: 0 07/31/19 24 12:53 PM UX SPECIALIST documented as of this encounter Care Teams Voice Network Administrator Relationship Specialty Start Date End Date Darwin Marti MD [address] [place] [address] PCP - General Internal Medicine 07/31/23 Blair Paris MD [address] [place] [address], [address] [place] [address] Consulting Physician Orthopaedic Sports Medicine 07/31/23 Jose A Espinosa MD 2 [facility] [address] [place] [address] Consulting Physician Pain Medicine-Pain Management 07/31/23 02/08/24 Hao Silvestre MD [address] [address] Consulting Physician Neurological Surgery 07/31/23 Carlos Dailey MD #[address] [address] Consulting Physician Colon and Rectal Surgery 10/26/23 Saida Mckeon APRN, ECHOCARDIOGRAPH TECHNICIAN #[address] [place] [address] Nurse Practitioner Gastroenterology 10/26/23 Jessenia Ward APRN, SURGICAL TECHNOLOGY INSTRUCTOR #[address] [place] [address] Nurse Practitioner Neurology 11/17/23 Hao Silvestre MD [address] [address] Consulting Physician Neurological Surgery 02/09/2401/27 Dominic Wang MD #2 [place] [address] Consulting Physician Pain Medicine-Pain Management 02/09/24 Butch Muñiz MD #2 [facility] [place] [address] Consulting Physician Neurology 02/23/24 documented as of this encounter
--- OUTSIDE RECORDS SUMMARY | 2025-02-17 09:20 | XMS_ITS | Encounter Summary ---
Author Organization [facility] Address [address] [place] [address] Phone Care Team Providers Care Tangled Yarn Spool Straightener Name Role Phone Luann Cox MD Primary Care Provider + [phone] Josiane Pacheco MD Primary Care Provider + [phone] Blair Paris MD Unavailable [phone] Jose A Espinosa MD Unavailable [phone] Darwin Marti MD Primary Care Provider [phone] Hao Silvestre MD Unavailable [phone] Carlos Dailey MD Unavailable Saida Mckeon APRN, HORIZONTAL BORING MILL SET UP OPERATOR Unavailable Jessenia Ward APRN, DIFFUSION FURNACE OPERATOR Unavailable + [phone] Hao Silvestre MD Unavailable [phone] Dominic Wang MD Unavailable [phone] Butch Muñiz MD Unavailable +[phone] Reason for Visit * Reason Comments Medication Refill Encounter Details Date Type Department Care Team (Late st Contact Info) Description 07/26/2021 Refill [facility] - [facility] Care - [place] [address] [place] [address] Luann Cox MD [address] [place] [address] Medication Refill Social History Tobacco [...] COVID-19? No / Unsure 07/01/2021 11:16 AM SHOT BAGGER documented as of this encounter Miscellaneous Notes * Telephone Encounter - Racquel Campos RN - 07/26/2021 9:30 AM SHOT BAGGER Medication failed the protocol, provider to review [...] Dept 06/27/21 Office Visit Luann Cox MD [facility] [address] 03/07/21 Office Visit Luann Cox MD [facility] [address] 09/06/20 Office Visit Luann Cox MD [facility] [address] [facility] Showing recent visits within past 365 days and meeting all other requirements Future Appointments Date Type Provider Dept 10/21/[facility] Showing future appointments within next 90 days [...] Dept 06/27/21 Office Visit Luann Cox MD [facility] [address] 03/07/21 Office Visit Luann Cox MD [facility] [address] 09/06/20 Office Visit Luann Cox MD [facility] [place] [facility] Showing recent visits within past 365 days and meeting all other requirements Future Appointments Date Type Provider Dept 10/21/21 [facility] Showing future appointments within next 90 days [...] Dept 06/27/21 Office Visit Luann Cox MD [email or web address] 03/07/21 Office Visit Luann Cox MD [facility] 09/06/20 Office Visit Luann Cox MD [email or web address] Showing recent visits within past 365 days and meeting all other requirements Future Appointments Date Type Provider Dept 10/21/21 Appointment Lab, [facility] Showing future appointments within next 90 days [...] Dept 06/27/21 Office Visit Luann Cox MD [facility] [place] [facility] 03/07/21 Office Visit Luann Cox MD [facility] 09/06/20 Office Visit Luann Cox MD [facility] Showing recent visits within past 365 days and meeting all other requirements Future Appointments Date Type Provider Dept 10/21/21 [facility] Show[facility] future appointments within next 90 days and meeting all other requirements BAGGER documented in this encounter Plan of Treatment Upcoming Encounters Date Type Department Care Team (Late st Contact Info) Description 02/20/2025 9:30 AM CDT [facility] #2 [place] [address] Jessenia Ward APRN, DIFFUSION FURNACE OPERATOR #[address] [place] [address] 03/09/2025 2:30 PM CDT Office Visit [facility] - Family Medicine - [place] #2 [place] [address] Juan Shrestha MD #[address] [address] documented as of this encounter Visit Diagnoses [...] - 19 05/07/2023 05/07/2023 05/07/2023 9:50 AM SHOT BAGGER COVID - 19 Confirmed 05/07/2023 05/07/2023 023 12:16 AM SHOT BAGGER C. difficile Rule-Out 09/24/2023 09/24/20232023 3:41 PM CDT COVID - 19 09/24/2023 09/24/2023 09/24/2023 11:3 2 AM CDT C. difficile Rule-Out 09/27/2023 09/27/20232023 2:13 PM CDT COVID - 19 02/23/2024 02/23/2024 02/23/2024 11:2 8 AM CDT Respiratory Rule-Out 02/23/2024 02/23/2024 024 11:30 AM CDT Assessment Noted Time PHQ-9 Depression Total Score: 2 07/14/19 20 10:00 AM SHOT BAGGER documented as of this encounter Care Teams Tangled Yarn Spool Straightener Relationship Specialty Start Date End Date Luann Cox MD PCP - General Family Medicine 04/15/15 11/02/22 Josiane Pacheco MD [address] [place] [address] PCP - General Family Medicine 11/20/22 07/30/23 Darwin Marti MD [address] [place] [address] PCP - General Internal Medicine 07/31/23 Blair Paris MD [address] [facility] [address] [place] [address] Consulting Physician Orthopaedic Sports Medicine 07/31/23 Jose A Espinosa MD 2 [facility] [address] [place] [address] Consulting Physician Pain Medicine-Pain Management 07/31/23 02/08/24 Hao Silvestre MD [address] [address] Consulting Physician Neurological Surgery 07/31/23 Carlos Dailey MD #2 [facility] [address] [place] [address] Consulting Physician Colon and Rectal Surgery 10/26/23 Saida Mckeon APRN, HORIZONTAL BORING MILL SET UP OPERATOR #2 [place] [address] Nurse Practitioner Gastroenterology 10/26/23 Jessenia Ward APRN, [facility] #[address] [place] [address] Nurse Practitioner Neurology 11/17/23 Hao Silvestre MD [address] [address] Consulting Physician Neurological Surgery 02/09/2401/27 Dominic Wang MD #2 [place] [address] Consulting Physician Pain Medicine-Pain Management 02/09/24 Butch Muñiz MD #2 [place] [address] Consulting Physician Neurology 02/23/24 documented as of this encounter
--- OUTSIDE RECORDS SUMMARY | 2025-02-17 09:20 | XMS_ITS | Encounter Summary ---
Author Organization [facility] Address [address] [place] [address] Phone Care Team Providers Care Rental Salesperson Name Role Phone Luann Cox MD Primary Care Provider + [phone] Josiane Pacheco MD Primary Care Provider + [phone] Blair Paris MD Unavailable +[phone] Jose A Espinosa MD Unavailable +[phone] Darwin Marti MD Primary Care Provider +[phone] Hao Silvestre MD Unavailable +[phone] Carlos Dailey MD Unavailable Saida Mckeon APRN, BIAS MACHINE OPERATOR HELPER Unavailable Jessenia Ward APRN, SPECIFICATION WRITER Unavailable + [phone] Hao Silvestre MD Unavailable +[phone] Dominic Wang MD Unavailable +[phone] Butch Muñiz MD Unavailable +[phone] Reason for Visit * Reason Comments Medication Refill Encounter Details Date Type Department Care Team (Late st Contact Info) Description 04/27/2021 [facility] [place] [address] [place] [address] Luann Cox MD [address] [place] [address] Medication Refill Social History Tobacco [...] Dept 03/07/21 Office Visit Luann Cox MD [facility] 09/06/20 Office Visit Luann Cox MD [facility] [email or web address] [address] 07/24/20 Office Visit Luann Cox MD [facility] [employer] Showing recent visits within past 365 days and meeting all other requirements Future Appointments Date Type Provider Dept 06/13/21 Appointment Luann Cox MD [facility] [employer] Showing future appointments within next 90 days [...] Dept 03/07/21 Office Visit Luann Cox MD [facility] [email or web address] [address] 09/06/20 Office Visit Luann Cox MD [facility] [email or web address] [address] 07/24/20 Office Visit Luann Cox MD [facility] [employer] Showing recent visits within past 365 days and meeting all other requirements Future Appointments Date Type Provider Dept 06/13/21 Appointment Luann Cox MD [facility] [employer] Showing future appointments within next 90 days and meeting all other requirements documented in this encounter Plan of Treatment Upcoming Encounters Date Type Department Care Team (Late st Contact Info) Description 02/20/2025 9:30 AM CDT Office Visit [facility] - Neurology - [place] #2 [place] [address] Jessenia Ward APRN, SPECIFICATION WRITER #2 [place] [address] 03/09/2025 2:30 PM CDT Office Visit [facility] - [place] [address]2 [place] [address] Juan Shrestha MD #[address] [address] documented as of this encounter Visit Diagnoses Diagnosis Hyperlipidemia, unspecified hyperlipidemia type documented in this encounter Additional Health Concerns Infection Onset Date Last Indicated Resolved Time ESBL 08/16/2018 08/16/2018 09/28/2023 9:03 AM CDT COVID - 19 03/09/2023 03/09/2023 03/19/2023 12:1 6 AM CDT Respiratory Rule-Out 03/09/2023 03/09/2023 023 2:09 AM CDT COVID - 19 05/07/2023 05/07/2023 05/07/2023 9:50 AM CELLOPHANE BATH MIXER COVID - 19 Confirmed 05/07/2023 05/07/2023 023 12:16 AM CELLOPHANE BATH MIXER C. difficile Rule-Out 09/24/2023 09/24/20232023 3:41 PM CDT COVID - 19 09/24/2023 09/24/2023 09/24/2023 11:3 2 AM CDT C. difficile Rule-Out 09/27/2023 09/27/20232023 2:13 PM CDT COVID - 19 02/23/2024 02/23/2024 02/23/2024 11:2 8 AM CDT Respiratory Rule-Out 02/23/2024 02/23/2024 024 11:30 AM CDT Assessment Noted Time PHQ-9 Depression Total Score: 2 07/14/19 20 10:00 AM CELLOPHANE BATH MIXER documented as of this encounter Care Teams Rental Salesperson Relationship Specialty Start Date End Date Luann Cox MD PCP - General Family Medicine 04/15/15 11/02/22 Josiane Pacheco MD [address] [place] [address] PCP - General Family Medicine 11/20/22 07/30/23 Darwin Marti MD [address] [place] [address] PCP - General Internal Medicine 07/31/23 Blair Paris MD 4 [facility] [address] [place] [address] Consulting Physician Orthopaedic Sports Medicine 07/31/23 Jose A Espinosa MD 2 [facility] [address] [place] [address] Consulting Physician Pain Medicine-Pain Management 07/31/23 02/08/24 Hao Silvestre MD [address] [address] Consulting Physician Neurological Surgery 07/31/23 Carlos Dailey MD #2 [facility] [address] [place] [address] Consulting Physician Colon and Rectal Surgery 10/26/23 Saida Mckeon APRN, BIAS MACHINE OPERATOR HELPER #2 [place] [address] Nurse Practitioner Gastroenterology 10/26/23 Jessenia Ward APRN, SPECIFICATION WRITER #2 [place] [address] Nurse Practitioner Neurology 11/17/23 [place] [address] [place] [address] Consulting Physician Neurological Surgery 02/09/2401/27 Dominic Wang MD #2 [place] [address] Consulting Physician Pain Medicine-Pain Management 02/09/24 Butch Muñiz MD #2 [place] [address] Consulting Physician Neurology 02/23/24 documented as of this encounter
--- OUTSIDE RECORDS SUMMARY | 2025-02-17 09:20 | XMS_ITS | Encounter Summary ---
Author Organization [facility] Address [address] [place] [address] Phone Care Team Providers Care Hog Raiser Name Role Phone Blair Paris MD Unavailable +[phone] Jose A Espinosa MD Unavailable [phone] Darwin Marti MD Primary Care Provider +[phone] Hao Silvestre MD Unavailable +[phone] Carlos Dailey MD Unavailable Saida Mckeon APRN, PATIENT SITTER Unavailable Jessenia aWrd APRN, [facility] Unavailable + [phone] Hao Silvestre MD Unavailable +[phone] Dominic Wang MD Unavailable +[phone] Butch Muñiz MD Unavailable [phone] Reason for Visit * Reason Comments Medication Refill Encounter Details Date Type Department Care Team (Late st Contact Info) Description 11/13/2023 Refill [facility] - Primary Care - [place] [address] [place] [address] Darwin Marti MD [address] [place] [address] Medication Refill Social History Tobacco Use Types Packs/Day Years Used Date Smoking Tobacco: Former Cigarettes 2 41.8 1 964 - 04/09/2005 Smokeless Tobacco: Never Alcohol Use Standard Drinks/Week Comments No 0 (1 standard drink = 0.6 oz pur e alcohol) [facility] Utilities Answer Date Recorded In the past 12 months has [employer], gas, oil, or water [employer] threatened to shut off services in your [...] often do you attend chur ch or taoist services? Never 09/26/2023 Do you belong to any clubs o r organizations such as orthodoxy groups, unions, fraternal or athletic groups, or [...] Answer Date Recorded PHQ-2 Score 2 07/14/2019 [facility] - Occupational Stress Questionnaire Answer Date Recorded [...] AM CDT Medication([facility]) [facility] and [facility] Chronic Medication Refill Standing Order for [...] Dept 10/14/23 Office Visit Darwin Marti MD [facility] 10/05/23 Office Visit Cassie Lara APRN, MARIO [facility] 07/31/23 Office Visit Darwin Marti MD [facility] 01/29/23 Office Visit Josiane Pacheco MD [facility] Showing recent visits within past 365 days and meeting all other requirements Future Appointments Date Type Provider Dept 02/09/24 Appointment Darwin Marti MD [facility] Showing future appointments within next 90 days and meeting all other requirements Passed - Normal TSH in past 12 months TSH Date Value Ref Range Status 07/31/2023 1.805 0.300 - 5.000 mIU/L Final documented in this encounter Plan of Treatment Upcoming Encounters Date Type Department Care Team (Late st Contact Info) Description 02/20/2025 9:30 AM CDT Office Visit [facility] - Neu[facility] #2 [place] [address] Jessenia Ward APRN, COOK SYRUP MAKER #2 [place] [address] 03/09/2025 2:30 PM CDT Office Visit [facility] - Family [facility] [place] [facility] [address] [place] [address] Juan Shrestha MD #2 [facility] [address] [place] [address] documented as of this encounter Visit Diagnoses Diagnosis Hypothyroidism (acquired) Unspecified hypothyroidism documented in this encounter Additional Health Concerns Infection Onset Date Last Indicated Resolved Time COVID - 19 02/23/2024 02/23/2024 02/23/2024 11:2 8 AM CDT Respiratory Rule-Out 02/23/2024 02/23/2024 024 11:30 AM CDT Assessment Noted Time PHQ-9 Depression Total Score: 0 07/31/19 12:53 PM HYBRID TECHNOLOGIST documented as of this encounter Care Teams Hog Raiser Relationship Specialty Start Date End Date Darwin Marti MD [address] [place] [address] PCP - General Internal Medicine 07/31/23 Blair Paris MD 4 [facility] [address] [place] [address] Consulting Physician Orthopaedic Sports Medicine 07/31/23 Jose A Espinosa MD 2 [facility] [address] [place] [address] Consulting Physician Pain Medicine-Pain Management 07/31/23 02/08/24 Hao Silvestre MD [address] [address] Consulting Physician Neurological Surgery 07/31/23 Carlos Dailey MD #2 [facility] [address] [place] [address] Consulting Physician Colon and Rectal Surgery 10/26/23 Saida Mckeon APRN, [facility] #2 [place] [address] Nurse Practitioner Gastroenterology 10/26/23 Jessenia Ward APRN, [facility] #[address] [place] [address] Nurse Practitioner Neurology 11/17/23 Hao Silvestre MD [address] [address] Consulting Physician Neurological Surgery 02/09/2401/27 Dominic Wang MD #2 [place] [address] Consulting Physician Pain Medicine-Pain Management 02/09/24 Butch Muñiz MD #2 [place] [address] Consulting Physician Neurology 02/23/24 documented as of this encounter
--- OUTSIDE RECORDS SUMMARY | 2025-02-17 09:20 | XMS_ITS | Encounter Summary ---
Author Organization [facility] Address [address] [place] [address] Phone Care Team Providers Care Child Adolescent Care Name Role Phone Luann Cox MD Primary Care Provider + [phone] Josiane Pacheco MD Primary Care Provider + [phone] Blair Pairs MD Unavailable [phone] Jose A Espinosa MD Unavailable [phone] Darwin Marti MD Primary Care Provider [phone] Hao Silvestre MD Unavailable [phone] Carlos Dailey MD Unavailable Saida Mckeon APRN, CONSUMER LOAN PROCESSOR Unavailable Jessenia Ward APRN, GED TEACHER Unavailable +- [phone] Hao Silvestre MD Unavailable +[phone] Dominic Wang MD Unavailable [phone] Butch Muñiz MD Unavailable +[phone] Reason for Visit * Reason Comments Medication Refill Encounter Details Date Type Department Care Team ([facility] Contact Info) Description [facility]/12[facility] [place] [address] [place] [address] Luann Cox MD [address] [place] [address] Medication Refill Social History Tobacco [...] no refill protocol information for this order OR BENEFITS ANALYST documented in this encounter Plan of Treatment Upcoming Encounters Date Type Department Care Team ([facility] Contact Info) Description 02/20/2025 9:30 AM CDT Office Visit [facility] - Neurology - [place] #[address] [place] [address] Jessenia Ward APRN, GED TEACHER #[address] [place] [address] 03/09/2025 2:30 PM CDT Office Visit [facility] - Family Medicine [facility] #[address] [place] [address] Juan Shrestha MD #[address] [address] documented as of this encounter Visit Diagnoses Not on filedocumented in this encounter Additional Health Concerns Infection Onset Date Last Indicated Resolved Time ESBL 08/16/2018 08/16/2018 09/28/2023 9:03 AM CDT COVID - 19 03/09/2023 03/09/2023 03/19/2023 12:1 6 AM CDT Respiratory Rule-Out 03/09/2023 03/09/2023 023 2:09 AM CDT COVID - 19 05/07/2023 05/07/2023 05/07/2023 9:50 AM SENIOR BENEFITS ANALYST COVID - 19 Confirmed 05/07/2023 05/07/2023 023 12:16 AM SENIOR BENEFITS ANALYST C. difficile Rule-Out 09/24/2023 09/24/20232023 3:41 PM CDT COVID - 19 09/24/2023 09/24/2023 09/24/2023 11:3 2 AM CDT C. difficile Rule-Out 09/27/2023 09/27/20232023 2:13 PM CDT COVID - 19 02/23/2024 02/23/2024 02/23/2024 11:2 8 AM CDT Respiratory Rule-Out 02/23/2024 02/23/2024 024 11:30 AM CDT Assessment Noted Time PHQ-9 Depression Total Score: 2 07/14/19 20 10:00 AM SENIOR BENEFITS ANALYST documented as of this encounter Care Teams Child Adolescent Care Relationship Specialty Start Date End Date Luann Cox MD PCP - General Family Medicine 04/15/15 11/02/22 Josiane Pacheco MD [address] [place] [address] PCP - General Family Medicine 11/20/22 07/30/23 Darwin Marti MD [address] [place] [address] PCP - General Internal Medicine 07/31/23 Blair Paris MD 4 [facility] [address] [place] [address] Consulting Physician Orthopaedic Sports Medicine 07/31/23 Jose A Espinosa MD 2 [facility] [address] [place] [address] Consulting Physician Pain Medicine-Pain Management 07/31/23 02/08/24 Hao Silvestre MD [address] [address] Consulting Physician Neurological Surgery 07/31/23 Carlos Dailey MD #2 [facility] [address] [place] [address] Consulting Physician Colon and Rectal Surgery 10/26/23 Saida Mckeon APRN, CONSUMER LOAN PROCESSOR #2 [place] [address] Nurse Practitioner Gastroenterology 10/26/23 Jessenia Ward APRN, GED TEACHER #[address] [place] [address] Nurse Practitioner Neurology 11/17/23 Hao Silvestre MD [address] [address] Consulting Physician Neurological Surgery 02/09/2401/27 Dominic Wang MD #2 [place] [address] Consulting Physician Pain Medicine-Pain Management 02/09/24 Butch Muñiz MD #2 [place] [address] Consulting Physician Neurology 02/23/24 documented as of this encounter
--- OUTSIDE RECORDS SUMMARY | 2025-02-17 09:20 | XMS_ITS | Encounter Summary ---
Author Organization [facility] Address [address] [place] [address] Phone Care Team Providers Care Powerhouse Operator Name Role Phone Luann Cox MD Primary Care Provider + [phone] Josiane Pacheco MD Primary Care Provider + [phone] Blair Paris MD Unavailable [phone] Jose A Espinosa MD Unavailable [phone] Darwin Marti MD Primary Care Provider +[phone] Hao Silvestre MD Unavailable [phone] Carlos Dailey MD Unavailable Saida Mckeon APRN, INDEPENDENT DRIVER Unavailable Jessenia Ward APRN, LIFE SCIENCE RESEARCH ASSISTANT Unavailable + [phone] Hao Silvestre MD Unavailable [phone] Dominic Wang MD Unavailable [phone] Butch Muñiz MD Unavailable +[phone] Reason for Visit * Reason Comments Medication Refill Encounter Details Date Type Department Care Team (Late st Contact Info) Description 04/19/2021 Refill [facility] - Primary Care - [place] [address] [place] [address] Luann Cox MD [address] [place] [address] Medication Refill Social History Tobacco [...] Dept 03/07/21 Office Visit Luann Cox MD [facility] 09/06/20 Office Visit Luann Cox MD [facility] 07/24/20 Office Visit Luann Cox MD [facility] Showing recent visits within past 365 days and meeting all other requirements Future Appointments Date Type Provider Dept 06/13/21 Appointment Luann Cox MD [facility] Showing future appointments within next [...] Dept 03/07/21 Office Visit Luann Cox MD [facility] 09/06/20 Office Visit Luann Cox MD [facility] 07/24/20 Office Visit Luann Cox MD [facility] Showing recent visits within past 365 days and meeting all other requirements Future Appointments Date Type Provider Dept 06/13/21 Appointment Luann Cox MD [facility] Showing future appointments within next [...] Dept 03/07/21 Office Visit Luann Cox MD [facility] 09/06/20 Office Visit [facility] 07/24/20 Office Visit [facility] Showing recent visits within past 365 days and meeting all other requirements Future Appointments Date Type Provider Dept 06/13/21 Appointment Luann Cox MD [facility] Showing future appointments within next 90 days and meeting all other requirements Passed - Normal TSH in past 12 months TSH Date Value Ref Range Status 03/05/2021 2.770 0.270 - 4.200 mIU/L Final documented in this encounter Plan of Treatment Upcoming Encounters Date Type Department Care Team (Late st Contact Info) Description 02/20/2025 9:30 AM CDT Office Visit [facility] - Neurology [facility] #2 [place] [address] Jessenia Ward APRN, LIFE SCIENCE RESEARCH ASSISTANT #2 [place] [address] 03/09/2025 2:30 PM CDT Office Visit [facility] Family Medicine [facility] #2 [place] [address] Juan Shrestha MD #[address] [address] documented as of this encounter Visit Diagnoses [...] 05/07/2023 05/07/2023 05/07/2023 9:50 AM MANAGER OF MERCHANDISING COVID - 19 Confirmed 05/07/2023 05/07/2023 023 12:16 AM MANAGER OF MERCHANDISING C. difficile Rule-Out 09/24/2023 09/24/20232023 3:41 PM CDT COVID - 19 09/24/2023 09/24/2023 09/24/2023 11:3 2 AM CDT C. difficile Rule-Out 09/27/2023 09/27/20232023 2:13 PM CDT COVID - 19 02/23/2024 02/23/2024 02/23/2024 11:2 8 AM CDT Respiratory Rule-Out 02/23/2024 02/23/2024 024 11:30 AM CDT Assessment Noted Time PHQ-9 Depression Total Score: 2 07/14/19 20 10:00 AM MANAGER OF MERCHANDISING documented as of this encounter Care Teams Powerhouse Operator Relationship Specialty Start Date End Date Luann Cox MD PCP - General Family Medicine 04/15/15 11/02/22 Josiane Pacheco MD [address] [place] [address] PCP - General Family Medicine 11/20/22 07/30/23 Darwin Marti MD [address] [place] [address] PCP - General Internal Medicine 07/31/23 Blair Paris MD 4 [facility] [address] [place] [address] Consulting Physician Orthopaedic Sports Medicine 07/31/23 Jose A Espinosa MD 2 [facility] [address] [place] [address] Consulting Physician Pain Medicine-Pain Management 07/31/23 02/08/24 Hao Silvestre MD [address] [address] Consulting Physician Neurological Surgery 07/31/23 Carlos Dailey MD #[address] [address] Consulting Physician Colon and Rectal Surgery 10/26/23 Saida Mckeon APRN, INDEPENDENT DRIVER #[address] [place] [address] Nurse Practitioner Gastroenterology 10/26/23 Jessenia Ward APRN, LIFE SCIENCE RESEARCH ASSISTANT #[address] [place] [address] Nurse Practitioner Neurology 11/17/23 Hao Silvestre MD [address] [address] Consulting Physician Neurological Surgery 02/09/2401/27 Dominic Wang MD #[address] [place] [address] Consulting Physician Pain Medicine-Pain Management 02/09/24 Butch Muñiz MD #[address] [place] [address] Consulting Physician Neurology 02/23/24 documented as of this encounter
--- OUTSIDE RECORDS SUMMARY | 2025-02-17 09:20 | XMS_ITS | Encounter Summary ---
Author Organization [facility] Address [address] [place] [address] Phone Care Team Providers Care Supervisor Lump Room Name Role Phone Luann Cox MD Primary Care Provider + [phone] Josiane Pacheco MD Primary Care Provider + [phone] Blair Paris MD Unavailable [phone] Jose A Espinosa MD Unavailable [phone] Darwin Marti MD Primary Care Provider [phone] Hao Silvestre MD Unavailable [phone] Carlos Dailey MD Unavailable Saida Mckeon APRN, LAB NURSE Unavailable Jessenia Ward APRN, BRICK UNLOADER TENDER Unavailable [phone] Hao Silvestre MD Unavailable Dominic Wang MD Unavailable Butch Muñiz MD Unavailable Reason for Visit * Reason Comments Medication Refill Encounter Details Date Type Department Care Team (Late Contact Info) Description 10/27/2020 [facility]ill [facility] [address] [place] [phone] Luann Cox MD [address] [place] [address] Medication Refill Social History Tobacco [...] Description 02/20/2025 9:30 AM CDT Office Visit [facility] Neurology [facility] #2 [place] [address] Jessenia Ward, TIMBER INCISOR OPERATOR, BRICK UNLOADER TENDER #[address] [place] [address] 03/09/2025 2:30 PM CDT Office Visit [facility] Family Medicine - [place] #2 [place] [address] Juan Shrestha MD #[address] [address] documented as of this encounter Visit Diagnoses [...] - 19 05/07/2023 05/07/2023 05/07/2023 9:50 AM SERVICE CENTER APPRAISER COVID - 19 Confirmed 05/07/2023 05/07/2023 023 12:16 AM SERVICE CENTER APPRAISER C. difficile Rule-Out 09/24/2023 09/24/20232023 3:41 PM CDT COVID - 19 09/24/2023 09/24/2023 09/24/2023 11:3 2 AM CDT C. difficile Rule-Out 09/27/2023 09/27/20232023 2:13 PM CDT COVID - 19 02/23/2024 02/23/2024 02/23/2024 11:2 8 AM CDT Respiratory Rule-Out 02/23/2024 02/23/2024 024 11:30 AM CDT Assessment Noted Time PHQ-9 Depression Total Score: 2 07/14/19 20 10:00 AM SERVICE CENTER APPRAISER documented as of this encounter Care Teams Supervisor Lump Room Relationship Specialty Start Date End Date Luann Cox MD PCP - General Family Medicine 04/15/15 11/02/22 Josiane Pacheco MD [address] [place] [address] PCP - General Family Medicine 11/20/22 07/30/23 Darwin Marti MD [address] [place] [address] PCP - General Internal Medicine 07/31/23 Blair Paris MD 4 [facility] [address] [place] [address] Consulting Physician Orthopaedic Sports Medicine 07/31/23 Jose A Espinosa MD 2 [facility] [address] [place] [address] Consulting Physician Pain Medicine-Pain Management 07/31/23 02/08/24 Hao Silvestre MD [address] [address] Consulting Physician Neurological Surgery 07/31/23 Carlos Dailey MD #[address] [address] Consulting Physician Colon and Rectal Surgery 10/26/23 Saida Mckeon APRN, LAB NURSE #2 [place] [address] Nurse Practitioner Gastroenterology 10/26/23 Jessenia Ward APRN, BRICK UNLOADER TENDER #[address] [place] [address] Nurse Practitioner Neurology 11/17/23 Hao Silvestre MD [address] [address] Consulting Physician Neurological Surgery 02/09/2401/27 Dominic Wang MD #2 [place] [address] Consulting Physician Pain Medicine-Pain Management 02/09/24 Butch Muñiz MD #2 [place] [address] Consulting Physician Neurology 02/23/24 documented as of this encounter
--- OUTSIDE RECORDS SUMMARY | 2025-02-17 09:20 | XMS_ITS | Encounter Summary ---
Author Organization [facility] Address [address] [place] [address] Phone Care Team Providers Care Test Conductor Name Role Phone Luann Cox MD Primary Care Provider + [phone] Josiane Pacheco MD Primary Care Provider + [phone] Blair Paris MD Unavailable +[phone] oJse A Espinosa MD Unavailable +[phone] Darwin Marti MD Primary Care Provider +[phone] Hao Silvestre MD Unavailable [phone] Carlos Dailey MD Unavailable Saida Mckeon APRN, MODEL MAKER PLASTER Unavailable [place], Jessenia M CONTACT CENTER MANAGER, BOTTOM BRUSHER Unavailable +[phone] Hao Silvestre MD Unavailable Dominic Wang MD Unavailable [phone] Butch Muñiz MD Unavailable +[phone] Reason for Visit * Reason Comments Medication Refill Encounter Details Date Type Department Care Team (Late Contact Info) Description 02/23/2021 Refill [facility] - [facility] Care - [place] [address] [place] [address] Luann Cox MD [address] [place] [address] Medication Refill Social History Tobacco [...] Description 02/20/2025 9:30 AM CDT Office Visit [facility] - Neurology - [place] [address] [place] [address] Jessenia Ward, CONTACT CENTER MANAGER, BOTTOM BRUSHER [address] [place] [address] 03/09/2025 2:30 PM CDT Office Visit [facility] - Family Medicine - [place] [address] [place] [address] Juan Shrestha MD [address] [address] documented as of this encounter Visit Diagnoses Diagnosis Essential hypertension Unspecified essential hypertension documented in this encounter Additional Health Concerns Infection Onset Date Last Indicated Resolved Time ESBL 08/16/2018 08/16/2018 09/28/2023 9:03 AM CDT COVID - 19 03/09/2023 03/09/2023 03/19/2023 12:1 6 AM CDT Respiratory Rule-Out 03/09/2023 03/09/2023 023 2:09 AM CDT COVID - 19 05/07/2023 05/07/2023 05/07/2023 9:50 AM MANAGER OF MAINTENANCE COVID - 19 Confirmed 05/07/2023 05/07/2023 023 12:16 AM MANAGER OF MAINTENANCE C. difficile Rule-Out 09/24/2023 09/24/20232023 3:41 PM CDT COVID - 19 09/24/2023 09/24/2023 09/24/2023 11:3 2 AM CDT C. difficile Rule-Out 09/27/2023 09/27/20232023 2:13 PM CDT COVID - 19 02/23/2024 02/23/2024 02/23/2024 11:2 8 AM CDT Respiratory Rule-Out 02/23/2024 02/23/2024 024 11:30 AM CDT Assessment Noted Time PHQ-9 Depression Total Score: 2 07/14/19 20 10:00 AM MANAGER OF MAINTENANCE documented as of this encounter Care Teams Test Conductor Relationship Specialty Start Date End Date Luann Cox MD PCP - General Family Medicine 04/15/15 11/02/22 Josiane Pacheco MD [address] [place] [address] PCP - General Family Medicine 11/20/22 07/30/23 Darwin Marti MD [address] [place] [address] PCP - General Internal Medicine 07/31/23 Blair Paris MD 4 [facility] [address] [place] [address] Consulting Physician Orthopaedic Sports Medicine 07/31/23 Jose A Espinosa MD [address] [address] Consulting Physician Pain Medicine-Pain Management 07/31/23 02/08/24 Hao Silvestre MD [address] [address] Consulting Physician Neurological Surgery 07/31/23 Carlos Dailey MD #[address] [address] Consulting Physician Colon and Rectal Surgery 10/26/23 Saida Mckeon APRN, MODEL MAKER PLASTER [address] [place] [address] Nurse Practitioner Gastroenterology 10/26/23 Jessenia Ward APRN, BOTTOM BRUSHER [address] [place] [address] Nurse Practitioner Neurology 11/17/23 Hao Silvestre MD [address] [place] [address] Consulting Physician Neurological Surgery 02/09/2401/27 Dominic Wang MD #2 [place] [address] Consulting Physician Pain Medicine-Pain Management 02/09/24 Butch Muñiz MD #2 [place] [address] Consulting Physician Neurology 02/23/24 documented as of this encounter
--- OUTSIDE RECORDS SUMMARY | 2025-02-17 09:20 | XMS_ITS | Encounter Summary ---
Author Organization [facility] Address [address] [place] [address] Phone Care Team Providers Care Obstetrics/Gynecology Nurse Name Role Phone Luann Cox MD Primary Care Provider + [phone] Josiane Pacheco MD Primary Care Provider + [phone] Blair Paris MD Unavailable [phone] Jose A Espinosa MD Unavailable [phone] Darwin Marti MD Primary Care Provider +[phone] Hao Silvestre MD Unavailable +[phone] Carlos Dailey MD Unavailable Saida Mckeon APRN, EXCELSIOR MACHINE FEEDER Unavailable Jessenia Ward APRN, CAGE FIGHTER Unavailable + [phone] Hao Silvestre MD Unavailable +[phone] Dominic Wang MD Unavailable [phone] Butch Muñiz MD Unavailable +[phone] Reason for Visit * Reason Comments Medication Refill Encounter Details Date Type Department Care Team (Late st Contact Info) Description 01/27/2021 Refill [facility] - Primary Care - [place] [address] [place] [address] Luann Cox MD [address] [place] [address] Medication Refill Social History Tobacco [...] Spinal stenosis, lumbar region, with neurogenic claudication [facility] - Family Medicine - [facility] Luann Cox MD 6 months ago Uncomplicated asthma [facility] Luann Cox MD 1 year ago Essential hypertension [facility] Luann Cox MD 1 year ago Essential hypertension [facility] Luann Cox MD 2 years ago Essential hypertension [facility] Luann Cox MD Upcoming Appointments Future Appointments In 1 month Luann Cox MD [facility] BINDERY CUTTER OPERATOR - Recent and Past Visits Recent [...] Office Visit Luann Cox MD [facility] 07/[facility]/20 Office Visit Luann Cox MD [facility] Showing recent visits within past 365 days and meeting all other requirements Future Appointments Date Type Provider Dept 03/07/21 Appointment Luann Cox MD [facility] [address] [facility] Showing future appointments within next 90 days and meeting all other requirements documented in this encounter Plan of Treatment Upcoming Encounters Date Type Department Care Team (Late st Contact Info) Description 02/20/2025 9:30 AM CDT Office Visit [facility] - Neurology - [place] [address] [place] [address] Jessenia Ward APRN, CAGE FIGHTER [address] [place] [address] 03/09/2025 2:30 PM CDT Office Visit [facility] - Family Medicine - [place] [address] [place] [address] Juan Shrestha MD #[address] [address] documented as of this encounter Visit Diagnoses Diagnosis Neuropathy Mononeuritis of unspecified site documented in this encounter Additional Health Concerns Infection Onset Date Last Indicated Resolved Time ESBL 08/16/2018 08/16/2018 09/28/2023 9:03 AM CDT COVID - 19 03/09/2023 03/09/2023 03/19/2023 12:1 6 AM CDT Respiratory Rule-Out 03/09/2023 03/09/2023 023 2:09 AM CDT COVID - 19 05/07/2023 05/07/2023 05/07/2023 9:50 AM DIAGNOSTIC TECHNOLOGIST COVID - 19 Confirmed 05/07/2023 05/07/2023 023 12:16 AM DIAGNOSTIC TECHNOLOGIST C. difficile Rule-Out 09/24/2023 09/24/20232023 3:41 PM CDT COVID - 19 09/24/2023 09/24/2023 09/24/2023 11:3 2 AM CDT C. difficile Rule-Out 09/27/2023 09/27/20232023 2:13 PM CDT COVID - 19 02/23/2024 02/23/2024 02/23/2024 11:2 8 AM CDT Respiratory Rule-Out 02/23/2024 02/23/2024 024 11:30 AM CDT Assessment Noted Time PHQ-9 Depression Total Score: 2 07/14/19 20 10:00 AM DIAGNOSTIC TECHNOLOGIST documented as of this encounter Care Teams Obstetrics/Gynecology Nurse Relationship Specialty Start Date End Date Luann Cox MD PCP - General Family Medicine 04/15/15 11/02/22 Josiane Pacheco MD [address] [place] [address] PCP - General Family Medicine 11/20/22 07/30/23 Darwin Marti MD [address] [place] [address] PCP - General Internal Medicine 07/31/23 Blair Paris MD 4 [facility] [address] [place] [address] Consulting Physician Orthopaedic Sports Medicine 07/31/23 Jose A Espinosa MD 2 [facility] [address] [place] [address] Consulting Physician Pain Medicine-Pain Management 07/31/23 02/08/24 Hao Silvestre MD [address] [id number] Consulting Physician Neurological Surgery 07/31/23 Carlos Dailey MD #2 [facility] [address] [place] [address] Consulting Physician Colon and Rectal Surgery 10/26/23 Saida Mckeon APRN, EXCELSIOR MACHINE FEEDER [address] [place] [address] Nurse Practitioner Gastroenterology 10/26/23 Jessenia Ward APRN, CAGE FIGHTER [address] [place] [address] Nurse Practitioner Neurology 11/17/23 Hao Silvestre MD [address] [address] Consulting Physician Neurological Surgery 02/09/2401/27 Dominic Wang MD #[address] [place] [address] Consulting Physician Pain Medicine-Pain Management 02/09/24 Butch Muñiz MD #2 [place] [address] Consulting Physician Neurology 02/23/24 documented as of this encounter
--- OUTSIDE RECORDS SUMMARY | 2025-02-17 09:21 | XMS_ITS | Encounter Summary ---
Author Organization [facility] Address [address] [place] [address] Phone Care Team Providers Care Sole Assessor Name Role Phone Blair Paris MD Unavailable +[phone] Jose A Espinosa MD Unavailable [phone] Darwin Marti MD Primary Care Provider +[phone] Hao Silvestre MD Unavailable [phone] Carlos Dailey MD Unavailable Saida Mckeon APRN, [facility] Unavailable Jessenia Ward APRN, [facility] Unavailable + [phone] Hao Silvestre MD Unavailable [phone] Dominic Wang MD Unavailable [phone] Butch Muñiz MD Unavailable Reason for Visit * Reason Comments Medication Refill Encounter Details Date Type Department Care Team (Late Contact Info) Description 08/18/2023 [facility] [place] [address] [place] [address] Ranjeet Boston PAC [address] [place] [address] Medication Refill Social History Tobacco [...] - 08/18/2023 1:20 PM CST Duplicate Request PROCESSOR OPERATOR documented in this encounter Plan of Treatment Upcoming Encounters Date Type Department Care Team (Late Contact Info) Description 02/20/2025 9:30 AM CDT Office Visit [facility] - Neurology - [place] [address] [place] [address] Jessenia Ward APRN, CROCODILE FARMER [address] [place] [address] 03/09/2025 2:30 PM CDT [facility] Visit [facility] - Family Medicine - [place] [address]2 [facility] [place] [address] Juan Shrestha MD #[address] [facility] [address] [place] [address] documented as of this encounter Visit Diagnoses [...] Total Score: 0 07/31/19 24 12:53 PM WORD PROCESSOR OPERATOR documented as of this encounter Care Teams Sole Assessor Relationship Specialty Start Date End Date Darwin Marti MD [address] [place] [address] PCP - General Internal Medicine 07/31/23 Blair Paris MD 4 [facility] [address] [place] [address] Consulting Physician Orthopaedic Sports Medicine 07/31/23 Jose A Espinosa MD 2 [facility] [address] [place] [address] Consulting Physician Pain Medicine-Pain Management 07/31/23 02/08/24 Hao Silvestre MD [address] [address] Consulting Physician Neurological Surgery 07/31/23 Carlos Dailey MD #[address] [address] Consulting Physician Colon and Rectal Surgery 10/26/23 Saida Mckeon APRN, [facility] [address] [place] [address] Nurse Practitioner Gastroenterology 10/26/23 Jessenia Ward APRN, CROCODILE FARMER [address] [place] [address] Nurse Practitioner Neurology 11/17/23 Hao Silvestre MD [address] [address] Consulting Physician Neurological Surgery 02/09/2401/27 Dominic Wang MD #[address] [place] [address] Consulting Physician Pain Medicine-Pain Management 02/09/24 Butch Muñiz MD #[address] [place] [address] Consulting Physician Neurology 02/23/24 documented as of this encounter
--- OUTSIDE RECORDS SUMMARY | 2025-02-17 09:21 | XMS_ITS | Clinical Summary ---
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 use of 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 3 Insomnia secondary [...] Other Medical Hysterectomy 30 years ago.; Comments: [facility] 02/20/2015 - Hx Other Medical Breast tumors 2 8 years ago.; Comments: [facility] 02/20/2015 - Hx Other Medical Right knee A&A 03-07-15.; Comments: [facility] 03/20/2015 - Hx Other Medical Right total kne e replacement 06-27-15.; Comments: [facility] 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 MVP [...] on file Legal Sex Female 6:41 PM BEHAVIORAL HEALTH DIRECTOR Gender Identity Not on file Sexual Orientation Not on file Obstetrics History Last Filed Vital Signs Vital Sign Reading Time Taken Comments Blood Pressure 132/93 07/14/2024 11:06 AM BEHAVIORAL HEALTH DIRECTOR Pulse 99 07/14/2024 11:06 AM BEHAVIORAL HEALTH DIRECTOR Temperature 36.9 C (98.4 F) 06/30/2024 8:25 AM BEHAVIORAL HEALTH DIRECTOR Respiratory Rate 0 06/30/2024 8:30 AM BEHAVIORAL HEALTH DIRECTOR Oxygen Saturation 99% 06/30/2024 8:25 AM BEHAVIORAL HEALTH DIRECTOR Inhaled Oxygen Concentration - - Weight 75.8 kg (167 lb) 07/14/2024 11:06 AM BEHAVIORAL HEALTH DIRECTOR Height 162.6 cm (5' 4) 07/14/2024 11:06 AM BEHAVIORAL HEALTH DIRECTOR Body Mass Index 28.67 07/14/2024 11:06 AM BEHAVIORAL HEALTH DIRECTOR Plan of Treatment Health Maintenance Due Date Last Done Comments Hepatitis C Screening 1950 Hepatitis B Screening 01/15/1966 DTaP/Tdap/Td Vaccine (1 - Tdap) 06/30/1998 9 Well Visit 65+ 01/15/2013 Zoster Vaccine (2 of 3) 03/24/2013 01/27/2013 Depression Screening 07/04/2023 07/04/2022, 07/04/19 Osteoporosis Screening-Bone Density Scan 08/09/2023 08/09/2021, 08/09/2021, 04/23/2017, Additional history exists Covid-19 Vaccine (4 - 2023-2 5 season) 2024 07/01/2021, 11/06/2020, 10/09/2020 Influenza Vaccine (#1) 2025 , 07/31/2023, 04/22/2022, Additional history exists Fall Risk Assessment 06/02/2025 06/02/2024 Pneumococcal vaccine 65+ Completed 09/23/2016, 06/2012 Breast Cancer Screening-Mammogram Discontinued 03/08/2020, 03/08/2020, 02/18/2018, Additional history exists Procedures Procedure Name Priority [...] PM CDT DEXA Bone Density Axial Acc#: [id number] DATE OF EXAM: Apr 23 2017 EXAM: [...] WYLIE Requesting Attending Fax: -- Attending ID: [id number] Requesting ID: [id number] Report To 1 ID: [id number] Report To 1 Name: JAY WYLIE Report To 1 FAX: -- NextGen Order #: [id number] Procedure Note Miscellaneous, Not In File - 04/23/2017 DEXA Bone Density Axial Acc#: [id number] DATE OF EXAM: Apr 23 2017 EXAM: [...] WYLIE Requesting Attending Fax: -- Attending ID: [id number] Requesting ID: [id number] Report To 1 ID: [id number] Report To 1 Name: JAY WYLIE Report To 1 FAX: -- NextGen Order #: [id number] Jay Wylie MD IMG DXA PROCEDURES Final R esult from Last 3 Months or Most Recently Relevant to Health Maintenance Insurance MEDICARE [facility] [place] [address] MEDIC[place] [address] Care Teams Marine Electrician Helper Relationship Specialty Start Date End Date Luann Cox MD PCP - General 05/08/09
--- OUTSIDE RECORDS SUMMARY | 2025-02-17 09:21 | XMS_ITS | Encounter Summary ---
Author Organization [facility] Address [address] [place] [address] Phone Care Team Providers Care Commercial Helicopter Pilot Name Role Phone Luann Cox MD Primary Care Provider + [phone] Josiane Pacheco MD Primary Care Provider + [phone] Blair Paris MD Unavailable +[phone] Jose A Espinosa MD Unavailable [phone] Darwin Marti MD Primary Care Provider +[phone] Hao Silvestre MD Unavailable +[phone] Carlos Dailey MD Unavailable Saida Mcekon APRN, TRAINING ENGINEER Unavailable Jessenia Ward APRN, SEALING MACHINE OPERATOR Unavailable +- [phone] Hao Silvestre MD Unavailable +[phone] Dominic Wang MD Unavailable [phone] Butch Muñiz MD Unavailable +[phone] Reason for Visit * Reason Comments Medication Refill Encounter Details Date Type Department Care Team ([facility] Contact Info) Description 12/12/2021 Refill [facility] Primary Care [facility] [address] [place] [address] Luann Cox MD [address] [place] [address] Medication Refill Social History Tobacco [...] Upcoming Encounters Date Type Department Care Team ([facility] Contact Info) Description 02/20/2025 9:30 AM CDT Office [facility] [place] [address] Jessenia Ward APRN, SEALING MACHINE OPERATOR [address] [place] [address] 03/09/2025 2:30 PM CDT Office Visit [facility] Medical [facility] - Family Medicine [facility] [address] [place] [address] Juan Shrestha MD [address] [address] documented as of this encounter Visit Diagnoses Diagnosis Essential hypertension Unspecified essential hypertension documented in this encounter Additional Health Concerns Infection Onset Date Last Indicated Resolved Time ESBL 08/16/2018 08/16/2018 09/28/2023 9:03 AM CDT COVID - 19 03/09/2023 03/09/2023 03/19/2023 12:1 6 AM CDT Respiratory Rule-Out 03/09/2023 03/09/2023 023 2:09 AM CDT COVID - 19 05/07/2023 05/07/2023 05/07/2023 9:50 AM CORN SHELLER COVID - 19 Confirmed 05/07/2023 05/07/2023 023 12:16 AM CORN SHELLER C. difficile Rule-Out 09/24/2023 09/24/20232023 3:41 PM CDT COVID - 19 09/24/2023 09/24/2023 09/24/2023 11:3 2 AM CDT C. difficile Rule-Out 09/27/2023 09/27/20232023 2:13 PM CDT COVID - 19 02/23/2024 02/23/2024 02/23/2024 11:2 8 AM CDT Respiratory Rule-Out 02/23/2024 02/23/2024 024 11:30 AM CDT Assessment Noted Time PHQ-9 Depression Total Score: 2 01/16/20 20 10:00 AM CORN SHELLER documented as of this encounter Care Teams Commercial Helicopter Pilot Relationship Specialty Start Date End Date Luann Cox MD PCP - General Family Medicine 04/15/15 11/02/22 Josiane Pacheco MD [address] [place] [address] PCP - General Family Medicine 11/20/22 07/30/23 Darwin Marti MD [address] [place] [address] PCP - General Internal Medicine 07/31/23 Blair Paris MD 4 [facility] [address] [place] [address] Consulting Physician Orthopaedic Sports Medicine 07/31/23 Jose A Espinosa MD [address] [address] Consulting Physician Pain Medicine-Pain Management 07/31/23 02/08/24 Hao Silvestre MD [address] [address] Consulting Physician Neurological Surgery 07/31/23 Carlos Dailey MD #[address] [address] Consulting Physician Colon and Rectal Surgery 10/26/23 Saida Mckeon APRN, TRAINING ENGINEER #[address] [place] [address] Nurse Practitioner Gastroenterology 10/26/23 Jessenia Ward APRN, SEALING MACHINE OPERATOR #[address] [place] [address] Nurse Practitioner Neurology 11/17/23 Hao Silvestre MD [address] [address] Consulting Physician Neurological Surgery 02/09/2401/27 Dominic Wang MD #[address] [place] [address] Consulting Physician Pain Medicine-Pain Management 02/09/24 Butch Muñiz MD #[address] [place] [address] Consulting Physician Neurology 02/23/24 documented as of this encounter
--- OUTSIDE RECORDS SUMMARY | 2025-02-17 09:21 | XMS_ITS | Clinical Summary ---
Author Organization [facility] Address [address] [place] [address] Phone Care Team Providers Care Associate Genetics Professor Name Role Phone Blair Paris MD Unavailable [phone] Darwin Marti MD Primary Care Provider [phone] Hao Silvestre MD Unavailable [phone] Carlos Dailey MD Unavailable Saida Mckeon APRN, SUPERINTENDENT OVERHEAD DISTRIBUTION Unavailable Jessenia Ward APRN, SUBSTANCE ABUSE RN Unavailable + [phone] Dominic Wang MD Unavailable [phone] Butch Muñiz MD Unavailable [phone] Allergies Active Allergy Reactions Criticality Noted Date Comments Cephalosporins Rash Medium 02/08/2020 Codeine Unknown Meperidine Hives 06/15/2015 Fish Allergy Unknown,Other (see Comments) 06/15/2015 Reaction: Unknown, Kiwi Extract Unknown 06/15/2015 Latex Itching 06/15/2015 Penicillins Unknown Grant Extract Unknown 06/15/2015 Sulfa Antibiotics Unknown Tetanus [...] 6 hours. 30 Tablet 03/09/20 23 Active gabapentin (NEURONTIN) 300 MG CapsuleIndicati ons:Neuropathy [...] once daily 90 Tablet 12/08/19 25 Active lisinopril (PRINIVIL, ZESTRIL) 10 MG TabletIndicatio ns:Hypertension , essential Take 1 tablet by mouth once daily 90 Tablet 01/24/20 25 Active lisinopril (PRINIVIL, ZESTRIL) 10 MG TabletIndicatio ns:Hypertension , essential Take 1 Tablet by mouth daily. 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 4 Seizure 06/27/2021 07/31/2023 GERD (gastroesophageal reflux disease) 03/28/202107/31/2023 Degenerative lumbar spinal stenosis 03/28/202107/3102/09/2024 Orbital lesion 03/07/2021 07/31/2023 Chest pain 11/20/2019 01/12/2020 Nausea and vomiting 11/20/2019 01/12/20 Syncope and collapse 11/20/2019 020 '[id number]' wit h signs of malnutrition 01/11/2019 01/11/2019 [...] Encounters Date Type Department Care Team Description 01/21/2025 [facility] [place] [address] [place] [address] Darwin Marti MD Medication Refill 12/07/2024 [facility] [place] [address] [place] [address] Darwin Marti MD Medication Refill 11/20/2024 [facility] [place] [address] [place] [address] Darwin Marti MD Medication Refill from Last [...] e alcohol) [facility] Utilities Answer Date Recorded In the past [...] often do you attend chur ch or latter day services? Never 08/25/2024 Do you belong to any clubs o r organizations such as advent groups, unions, fraternal or athletic groups, or [...] Total Score - Questions 1-9 0 07/31 [facility] of Occupat ional Health - Occupational Stress [...] place to sleep or slept in a jail (including now)? No 09/26/2023 Housing Stability Vital Sign Answer Matt e Recorded In the last 12 months, was t here a time when you were not able to pay the mortgage or rent on time? No 08/25/2024 Number of Times Moved in the Last Year Not on fi le 08/25/2024 At any time in the past 12 [facility], were you homeless or living in a jail (including now)? No 08/25/2024 Sexually Active Control [...] 74.4 kg (164 lb) 08/25/2024 2:18 PM CIVILIAN JAIL OFFICER Height 162.6 cm (5' 4) 08/25/2024 2:18 PM CIVILIAN JAIL OFFICER Body Mass Index 28.15 08/25/2024 2:18 PM CIVILIAN JAIL OFFICER Plan of Treatment Upcoming Encounters Date Type Department Care Team (Late st Contact Info) Description 02/20/2025 9:30 AM CDT Office Visit [facility] - Neurology [facility] [address] [place] [address] Jessenia Ward APRN, SUBSTANCE ABUSE RN [address] [place] [address] 03/09/2025 2:30 PM CDT Office Visit [facility] - Family Medicine [facility] [address] [place] [address] Juan Shrestha MD [address] [address] Health Maintenance Due Date Last Done Comments [...] Immunization Discontinued Medical Devices Implanted Type Area Auditor Internal Device Identifier Shelf Expiration Date Model / Serial / Lot Bsplt Tib Trthln 3 Kn Prm Beaded Prpt - [id number] Implanted:Qty: 1 on 06/27/2015 by [facility] IMPLANT Right: Knee [employer] 01/27/2020 5526-B-30 0 / / [id number] Ins Tib 3 9mm Kn X3 Cndrl Stab Trthln - [id number] Implanted:Qty: 1 on 06/27/2015 by [facility] IMPLANT Right: Knee [employer] 01/27/2020 5531-G-30 9 / / [id number] Bioinductive Arthroscopic Generation 3 Medium - [id number] Implanted:Qty: 1 on 11/30/2017 by Blair [facility] IMPLANT Left: Shoulder [employer] 10/27/2019 2169-2 / 2169-2 / [id number] Tendon Staple Implant - [id number] Implanted:Qty: 1 on 11/30/2017 by Blair [facility] IMPLANT Left: Shoulder [employer] 05/18/2018 2504-1 / 2504-1 / [id number] [place] Bone 3 W/Arthroscopic Delivery System - [id number] Implanted:Qty: 1 on 11/30/2017 by Blair Paris MD at [facility] IMPLANT Left: Shoulder [employer] 06/30/2018 2503-A / 2503-A / [id number] Asym Metal Backed Patella Implanted:Qty: 1 on 06/27/2015 by Benji Dickey MD at [facility] Right: Knee [employer] 11/26/2019 [id number] / / [id number] Cruciate Retaining Femoral Implanted:Qty: 1 on 06/27/2015 by Benji Dickey MD at [facility] Right: Knee [employer] / [employer] 04/03/2020 / / [id number] Procedures Procedure Name Priority Date/Time Associated Diagnosis Comments NEUROSURGY CONSULT 01/25/2025 12 :00 AM CDT XR - SPINE 01/10/2025 12:00 AM CDT NEUROSURGERY PROCEDURE 01/10/2025 12:00 AM CDT OUTPATIENT ABO & RH W/ ANTIBODY SCREEN 12/29/2024 12:00 AM CDT PROTIME (PT) (PROTHROMBIN TIME) 12/29/2024 12:00 AM CDT URINALYSIS (UA) RANDOM 12/29/2024 12:00 AM CDT COMPLETE BLOOD COUNT (CBC) WITH DIFF 12/29/2024 12:00 AM CDT APTT (PTT) 12/29/2024 12:00 AM CDT BASIC METABOLIC PANEL W/ CALCIUM TOTAL 12/29/2024 12:00 AM CDT CULTURE, URINE 12/29/2024 12:00 AM CDT STOOL, OCCULT BLOOD, DIAGNOSTIC, VIA GUAIAC STAT 09/26/2023 11:05 AM CDT HEPATITIS C ANTIBODY Routine 07/31/2023 1:37 PM CIVILIAN JAIL OFFICER Encounter for hepatitis C screening test for low risk patient [facility] BONE DENSITOMETRY AXIAL SKELETON Routine 08/09/2021 9:35 AM CIVILIAN JAIL OFFICER Postmenopausal [facility] DIAG BILATERAL DIGITAL W CAD W BRI Routine 03/08/2020 11:00 AM CDT Encounter for screening mammogram for breast cancer Abnormal mammogram COLONOSCOPY Routine 07/22/2012 from Last 3 Months or Most Recently Relevant to Health Maintenance Results * NEUROSURGY CONSULT (01/25/2025 12:00 AM CDT) 01/25/2025 us Provider Scan GENERIC SCAN ORDERS CONSULT Sindhu l Result Performing Organization Address [facility] de Phone Number SCAN * NEUROSURGERY PROCEDURE (01/10/2025 12:00 AM CDT) 01/10/2025 us Provider Scan GEN ORDERS Final Result Performing Organization [facility] de Phone Number SCAN * XR - SPINE (01/10/2025 12:00 AM CDT) 01/10/2025 us Provider Scan IMG DIAGNOSTIC ORDERABLES Final Result Performing Organization Address [facility] de Phone Number SCAN * URINALYSIS (UA) RANDOM (12/29/2024 12:00 AM CDT) 12/29/2024 us Provider Scan URINE ORDERABLES Final Result Performing Organization [facility] de Phone Number SCAN * APTT (PTT) (12/29/2024 12:00 AM CDT) 12/29/2024 us Provider Scan HEMATOLOGY ORDERABLES Final Resu lt Performing Organization [facility] de Phone Number SCAN * PROTIME (PT) (PROTHROMBIN TIME) (12/29/2024 12:00 AM CDT) INR 0.9 SCAN 12/29/2024 us Provider Scan HEMATOLOGY ORDERABLES Final Resu lt Performing Organization Address [facility] Phone Number SCAN * OUTPATIENT ABO & RH W/ ANTIBODY SCREEN (12/29/2024 12:00 AM CDT) 12/29/2024 us Provider Scan BLOOD BANK ORDERABLES Final Resu lt Performing Organization Address [facility] Phone Number SCAN * CULTURE, URINE (12/29/2024 12:00 AM CDT) 12/29/2024 us Provider Scan MICROBIOLOGY - GENERAL ORDERABLE S Final Result Performing Organization [facility] Phone Number SCAN * COMPLETE BLOOD COUNT (CBC) WITH DIFF (12/29/2024 12:00 AM CDT) 12/29/2024 us Provider Scan HEMATOLOGY ORDERABLES Final Resu lt Performing Organization Address [facility] Phone Number SCAN * BASIC METABOLIC PANEL W/ CALCIUM TOTAL (12/29/2024 12:00 AM CDT) 12/29/2024 us Provider Scan CHEMISTRY ORDERABLES Final Resul t Performing Organization Address [facility] Phone Number SCAN * Stool, Occult Blood, Diagnostic (09/26/2023 11:05 AM CDT) OCCULT BLOOD DIAG Negative Negative 09/26/2023 11:15 AM CDT [facility] Stool STOOL SPECIMEN / Unknown Non-Phlebotomy Collection / Unknown 09/26/2023 11:05 AM CDT 09/26/2023 11:12 AM CDT us Roque Hunter APRN, MARIO BODY FLUIDS & STOOLS OR DERABLES Final Result Performing Organization Address City/[facility]/ZIP Co de Phone Number [facility] [address] [place] [address] * HEPATITIS C ANTIBODY (07/31/2023 1:37 PM CIVILIAN JAIL OFFICER) hepatitis C antibody 0.06 <1 S/[facility] ARCH [id number] B 07/31/2023 9:41 PM CIVILIAN JAIL OFFICER [facility] Comment: Signal/Cutoff ratio < 0.79 is Nondetected Signal/Cutoff ratio 0.80-0.99 is Grayzone Signal/Cutoff ratio > 0.99 is Detected Supplemental assays are recommended if signal/cutoff ratio is >/=1.00. Signal/cutoff ratio result >/= 5.00 is 97% predictive of positivity for recombinant immunoblot assay (RIBA) and will be reported to the [place] Department of Public Health as required. Blood Venipuncture / Unknown 07/31/2023 1:37 PM CIVILIAN JAIL OFFICER 07/31/2023 1:37 PM CIVILIAN JAIL OFFICER us Darwin Marti MD CHEMISTRY ORDERABLES Sindhu l Result Performing Organization Address [facility] Co de Phone Number [facility] [address] [place] [address], * JAMIE BONE DENSITOMETRY AXIAL SKELETON (08/09/2021 9:35 AM CIVILIAN JAIL OFFICER) Anatomical Region Laterality Modality BODY N/A Other 08/09/2021 10:0 9 AM CIVILIAN JAIL OFFICER Impressions 08/09/2021 10:12 AM CIVILIAN JAIL OFFICER IMPRESSION: Low bone mass Fracture risk assessment [...] of Osteoporosis (http://www.nof.org/professionals/clinical-guidelines) Narrative 08/09/2021 10:12 AM CIVILIAN JAIL OFFICER EXAM DESCRIPTION: JAMIE BONE DENSITOMETRY AXIAL SKELETON REASON FOR STUDY: 71 y/o year old F with given history of screening. Auditor Internal/Model: [employer] (S/N [id number]) CLINICAL INFORMATION: Current height: 5 foot 3.5 [...] Blair Alcaraz M.D. AG: RHIANNON Report ID: [id number] Reading Location: [place] [address] Procedure Note Blair Alcaraz MD - 08/09/2021 EXAM DESCRIPTION: JAMIE BONE DENSITOMETRY AXIAL SKELETON REASON FOR STUDY: 71 y/o year old F with given history of screening. Auditor Internal/Model: [employer] (S/N [id number]) CLINICAL INFORMATION: Current height: 5 foot 3.5 [...] Blair Alcaraz M.D. AG: AG Report ID: [id number] Reading Location: [place] [address] IMPRESSION: Low bone mass Fracture risk assessment [...] exams dated: 02/18/2018, 09/25/2016, and 04/25/2014 [facility]. BREAST TISSUE:The tissue of both breasts is [...] signed by: Gracie Patel M.D. ll/:03/08/2020 11:16:23 Brain Picker: Landy Vance)(M), [facility] letter sent: Normal Exam Reading location: BLUE [...] exams dated: 02/18/2018, 09/25/2016, and 04/25/2014 [facility]. BREAST TISSUE:The tissue of both breasts is [...] signed by: Gracie Patel M.D. ll/:03/08/2020 11:16:23 Brain Picker: Landy Vance)(M), [facility] letter sent: Normal Exam Reading location: BLUE OVERALL STUDY BIRADS: 1 Negative us Luann Cox MD IMG MAMMO ORDERABLES Final R esult * HM COLONOSCOPY (07/22/2012) us Any Lewis MD PROCEDURE/MINOR SURGIC AL ORDERABLES Final Result from Last 3 Months or Most Recently Relevant to Health Maintenance Insurance MEDICARE [employer] Advance Directives Documents on File Type Date Recorded Patient Racing Manager Expl anation POLST/POST/[place] DNR 08/19/2018 9:34 AM polst 08/18/2018 Power of Office Secretary for Health Care 08/18/2018 1:08 PM POA-HC [...] measures to stabilize the patient. Care Teams Associate Genetics Professor Relationship Specialty Start Date End Date Darwin Marti MD [address] [place] [address] PCP - General Internal Medicine 07/31/23 Blair Paris MD [address] [place] [address], [address] [place] [address] Consulting Physician Orthopaedic Sports Medicine 07/31/23 Hao Silvestre MD [address] [place] [id number] Consulting Physician Neurological Surgery 07/31/23 Carlos Dailey MD [address] [address] Consulting Physician Colon and Rectal Surgery 10/26/23 Saida Mckeon APRN, SUPERINTENDENT OVERHEAD DISTRIBUTION [address] [place] [address] Nurse Practitioner Gastroenterology 10/26/23 Jessenia Ward APRN, SUBSTANCE ABUSE RN [address] [place] [address] Nurse Practitioner Neurology 11/17/23 Dominci Wang MD [address] [place] [address] Consulting Physician Pain Medicine-Pain Management 02/09/24 Butch Muñiz MD [address] [place] [address] Consulting Physician Neurology 02/23/24
--- OUTSIDE RECORDS SUMMARY | 2025-02-17 09:21 | XMS_ITS | Encounter Summary ---
Author Organization [facility] Address [address] [place] [address] Phone Care Team Providers Care Char Belt Operator Name Role Phone Luann Cox MD Primary Care Provider [phone] Josiane Pacheco MD Primary Care Provider + [phone] Blair Paris MD Unavailable [phone] Jose A Espinosa MD Unavailable [phone] Darwin Marti MD Primary Care Provider [phone] Hao Silvestre MD Unavailable [phone] Carlos Dailey MD Unavailable Saida Mckeon APRN, HUSKER OPERATOR Unavailable Jessenia Ward APRN, POWDER OPERATOR Unavailable + [phone] Hao Silvestre MD Unavailable [phone] Dominic Wang MD Unavailable [phone] Butch Muñiz MD Unavailable [phone] Reason for Visit * Reason Comments Medication Refill Encounter Details Date Type Department Care Team (Late st Contact Info) Description 04/06/[address] [facility] [address] [place] [address] Luann Cox MD [address] [place] [address] Medication Refill Social History Tobacco [...] Outpatient Visits 2 months ago Essential hypertension [facility] Luann Cox MD 9 months ago Essential hypertension [facility] Luann Torres MD 1 year ago Essential [facility] 1 year ago Syncope, unspecified syncope type [facility] Luann Torres MD 1 year ago Sore throat [facility] Upcoming Appointments Future Appointments In [address], [facility] In 3 months [facility], [facility] In 3 months Luann Cox MD [facility] HOTEL CLERK - Recent and Past Visits Recent Visits Date Type Provider Dept 01/12/20 Office Visit Luann Cox MD [facility] 07/14/19 Office Visit Luann Cox MD [facility] 01/11/19 Office Visit Luann Cox MD [facility] Showing recent visits within [...] Outpatient Visits 2 months ago Essential hypertension [facility] Luann Cox MD 9 months ago Essential hypertension [facility] 1 year [address] Ess[address] [facility] - Luann Torres MD 1 year ago Syncope, unspecified syncope type [facility] Bensonuru, Luann, MD 1 year [address] [facility] - Luann Torres MD Upcoming Appointments Future Appointments In 1 month [facility] MRI, [facility] In 3 months Lab, Franco [facility] In 3 months Luann Cox MD [facility] HOTEL CLERK - Recent and Past Visits Recent Visits Date Type Provider Dept 01/12/20 Office Visit Luann Cox MD [facility] 07/14/19 Office Visit Luann Cox MD [facility] 01/11/19 Office Visit Luann Cox MD [facility] Showing recent visits within [...] Description 02/20/2025 9:30 AM CDT Office Visit [facility] Neurology - [place] [address] [place] [address] Jessenia Ward APRN, POWDER OPERATOR [address] [place] [address] 03/09/2025 2:30 PM CDT Office Visit [facility] Family Medicine [facility] [address] [place] [address] Juan Shrestha MD [address] [address] documented as of this encounter Visit Diagnoses Diagnosis Gastroesophageal reflux disease Esophageal reflux documented in this encounter Additional Health Concerns Infection Onset Date Last Indicated Resolved Time ESBL 08/16/2018 08/16/2018 09/28/2023 9:03 AM CDT COVID - 19 03/09/2023 03/09/2023 03/19/2023 12:1 6 AM CDT Respiratory Rule-Out 03/09/2023 03/09/2023 023 2:09 AM CDT COVID - 19 05/07/2023 05/07/2023 05/07/2023 9:50 AM PNEUMATIC TESTER MECHANIC COVID - 19 Confirmed 05/07/2023 05/07/2023 023 12:16 AM PNEUMATIC TESTER MECHANIC C. difficile Rule-Out 09/24/2023 09/24/20232023 3:41 PM CDT COVID - 19 09/24/2023 09/24/2023 09/24/2023 11:3 2 AM CDT C. difficile Rule-Out 09/27/2023 09/27/20232023 2:13 PM CDT COVID - 19 02/23/2024 02/23/2024 02/23/2024 11:2 8 AM CDT Respiratory Rule-Out 02/23/2024 02/23/2024 024 11:30 AM CDT Assessment Noted Time PHQ-9 Depression Total Score: 2 07/14/19 20 10:00 AM PNEUMATIC TESTER MECHANIC documented as of this encounter Care Teams Char Belt Operator Relationship Specialty Start Date End Date Luann Cox MD PCP - General Family Medicine 04/15/15 11/02/22 oJsiane Pacheco MD [address] [place] [address] PCP - General Family Medicine 11/20/22 07/30/23 Darwin Marti MD [address] [place] [address] PCP - General Internal Medicine 07/31/23 Blair Paris MD [address] [facility] [address] [place] [address] Consulting Physician Orthopaedic Sports Medicine 07/31/23 Jose A Espinosa MD 2 [facility] [address] [place] [address] Consulting Physician Pain Medicine-Pain Management 07/31/23 02/08/24 Hao Silvestre MD [address] [facility] [address] [place] [address] Consulting Physician Neurological Surgery 07/31/23 Carlos Dailey MD [address] [facility] [address] [place] [address] Consulting Physician Colon and Rectal Surgery 10/26/23 Saida Mckeon APRN, HUSKER OPERATOR [address] [place] [address] Nurse Practitioner Gastroenterology 10/26/23 Jessenia Ward, SAND MILLER, POWDER OPERATOR [address] [place] [address] Nurse Practitioner Neurology 11/17/23 Hao Silvestre MD [address] [facility] [address] [place] [address] Consulting Physician Neurological Surgery 02/09/2401/27 Dominic Wang MD [address] [place] [address] Consulting Physician Pain Medicine-Pain Management 02/09/24 Butch Muñiz MD [address] [place] [address] Consulting Physician Neurology 02/23/24 documented as of this encounter
--- OUTSIDE RECORDS SUMMARY | 2025-02-17 09:21 | XMS_ITS | Encounter Summary ---
Author Organization [facility] Address [address] [place] [address] Phone Care Team Providers Care Product Coordinator Name Role Phone Josiane Pacheco MD Primary Care Provider [phone] Blair Paris MD Unavailable +[phone] Jose A Espinosa MD Unavailable [phone] Darwin Marti MD Primary Care Provider +[phone] Hao Silvestre MD Unavailable +[phone] Carlos Dailey MD Unavailable Saida Mckeon APRN, BRIM STIFFENER Unavailable Jessenia Ward APRN, SYSTEM AUDITOR Unavailable + [phone] Hao Silvestre MD Unavailable [phone] Dominic Wang MD Unavailable [phone] Butch Muñiz MD Unavailable [phone] Reason for Visit * Reason Comments Medication Refill Encounter Details Date Type Department Care Team (Late st Contact Info) Description 01/18/2023 Refill [facility] - Primary Care - [place] [address] [place] [address] Josiane Pacheco MD [address] [place] [address] Medication Refill Social History Tobacco Use Types [...] Dept 05/29/22 Office Visit Luann Cox MD [facility] Showing recent visits within past 365 days and meeting all other requirements Future Appointments Date Type Provider Dept 01/29/23 Appointment Josiane Pacheco MD [facility] Showing future appointments within next 90 [...] Dept 05/29/22 Office Visit Luann Cox MD [facility] Showing recent visits within past 365 days and meeting all other requirements Future Appointments Date Type Provider Dept 01/29/23 Appointment Josiane Pacheco MD [facility] Showing future appointments within next 90 [...] Dept 05/29/22 Office Visit Luann Cox MD [facility] Showing recent visits within past 365 days and meeting all other requirements Future Appointments Date Type Provider Dept 01/29/23 Appointment Josiane Pacheco MD [facility] Showing future appointments within next 90 [...] Dept 05/29/22 Office Visit Luann Cox MD [facility] Showing recent visits within past 365 days and meeting all other requirements Future Appointments Date Type Provider Dept 01/29/23 Appointment Josiane Pacheco MD [facility] Showing future appointments within next 90 [...] Dept 05/29/22 Office Visit Luann Cox MD [facility] Showing recent visits within past 365 days and meeting all other requirements Future Appointments Date Type Provider Dept 01/29/23 Appointment Josiane Pacheco MD [facility] Showing future appointments within next 90 days and meeting all other requirements documented in this encounter Plan of Treatment Upcoming Encounters Date Type Department Care Team (Late st Contact Info) Description 02/20/2025 9:30 AM CDT Office Visit [facility] - Neurology - [place] [address] [place] [address] Jessenia Ward APRN, SYSTEM AUDITOR [address] [place] [address] 03/09/2025 2:30 PM CDT Office Visit [facility] Medical [facility] - Family Medicine [facility] #[address] [place] [address] Jaun Shrestha MD [address] [address] documented as of this encounter Visit Diagnoses [...] 19 05/07/2023 05/07/2023 05/07/2023 9:50 AM SPECIAL EDUCATION INSTRUCTOR COVID - 19 Confirmed 05/07/2023 05/07/2023 023 12:16 AM SPECIAL EDUCATION INSTRUCTOR C. difficile Rule-Out 09/24/2023 09/24/20232023 3:41 PM CDT COVID - 19 09/24/2023 09/24/2023 09/24/2023 11:3 2 AM CDT C. difficile Rule-Out 09/27/2023 09/27/20232023 2:13 PM CDT COVID - 19 02/23/2024 02/23/2024 02/23/2024 11:2 8 AM CDT Respiratory Rule-Out 02/23/2024 02/23/2024 024 11:30 AM CDT Assessment Noted Time PHQ-9 Depression Total Score: 2 07/14/19 20 10:00 AM SPECIAL EDUCATION INSTRUCTOR documented as of this encounter Care Teams Product Coordinator Relationship Specialty Start Date End Date Josiane Pacheco MD [address] [place] [address] PCP - General Family Medicine 11/20/22 07/30/23 Darwin Marti MD [address] [place] [address] PCP - General Internal Medicine 07/31/23 Blair Paris MD 4 [facility] [address] [place] [address] Consulting Physician Orthopaedic Sports Medicine 07/31/23 Jose A Espinosa MD 2 [facility] [address] [place] [address] Consulting Physician Pain Medicine-Pain Management 07/31/23 02/08/24 Hao Silvestre MD [address] [place] [address] Consulting Physician Neurological Surgery 07/31/23 Carlos Dailey MD #[address] [address] Consulting Physician Colon and Rectal Surgery 10/26/23 Saida Mckeon APRN, BRIM STIFFENER [address] [place] [address] Nurse Practitioner Gastroenterology 10/26/23 Jessenia Ward, [employer] SHAPER, SYSTEM AUDITOR [address] [place] [address] Nurse Practitioner Neurology 11/17/23 Hao Silvestre MD [address] [address] Consulting Physician Neurological Surgery 02/09/2401/27 Dominic Wang MD #[address] [place] [address] Consulting Physician Pain Medicine-Pain Management 02/09/24 Butch Muñiz MD #[address] [place] [address] Consulting Physician Neurology 02/23/24 documented as of this encounter
--- OUTSIDE RECORDS SUMMARY | 2025-02-17 09:21 | XMS_ITS | Encounter Summary ---
Author Organization [facility] Address [address] [place] [address] Phone Care Team Providers Care A Operator Name Role Phone Luann Cox MD Primary Care Provider + [phone] Josiane Pacheco MD Primary Care Provider + [phone] Blair Paris MD Unavailable [phone] Jose A Espinosa MD Unavailable [phone] Darwin Marti MD Primary Care Provider +[phone] Hao Silvestre MD Unavailable [phone] Carlos Dailey MD Unavailable Saida Mckeon APRN, CLOUD SYSTEMS ADMINISTRATOR Unavailable Jessenia Ward APRN, AUTO SERVICE STATION ATTENDANT Unavailable + [phone] Hao Silvestre MD Unavailable +[phone] Dominic Wang MD Unavailable Butch Muñiz MD Unavailable +[phone] Reason for Visit * Reason Comments Medication Refill Encounter Details Date Type Department Care Team (Late Contact Info) Description 04/24/2020 Refill [facility] Primary Care - [place] [address] [place] [address] Luann Cox MD [address] [place] [address] Medication Refill Social History Tobacco [...] [facility] - Neurology - [place] [address] [place] [address] Jessenia Ward APRN, AUTO SERVICE STATION ATTENDANT [address] [place] [address] 03/09/2025 2:30 PM CDT Office Visit [facility] - Family Medicine - [place] [address] [place] [address] Juan Shrestha MD #[address] [address] documented as of this encounter Visit Diagnoses Diagnosis Hypothyroidism (acquired) Unspecified hypothyroidism Eczema, unspecified type documented in this encounter Additional Health Concerns Infection Onset Date Last Indicated Resolved Time ESBL 08/16/2018 08/16/2018 09/28/2023 9:03 AM CDT COVID - 19 03/09/2023 03/09/2023 03/19/2023 12:1 6 AM CDT Respiratory Rule-Out 03/09/2023 03/09/2023 023 2:09 AM CDT COVID - 19 05/07/2023 05/07/2023 05/07/2023 9:50 AM TIRE MECHANIC COVID - 19 Confirmed 05/07/2023 05/07/2023 023 12:16 AM TIRE MECHANIC C. difficile Rule-Out 09/24/2023 09/24/20232023 3:41 PM CDT COVID - 19 09/24/2023 09/24/2023 09/24/2023 11:3 2 AM CDT C. difficile Rule-Out 09/27/2023 09/27/20232023 2:13 PM CDT COVID - 19 02/23/2024 02/23/2024 02/23/2024 11:2 8 AM CDT Respiratory Rule-Out 02/23/2024 02/23/2024 024 11:30 AM CDT Assessment Noted Time PHQ-9 Depression Total Score: 2 07/14/19 20 10:00 AM TIRE MECHANIC documented as of this encounter Care Teams A Operator Relationship Specialty Start Date End Date Luann Cox MD PCP - General Family Medicine 04/15/15 11/02/22 Josiane Pacheco MD [address] [place] [address] PCP - General Family Medicine 11/20/22 07/30/23 Darwin Marti MD [address] [place] [address] PCP - General Internal Medicine 07/31/23 Blair Paris MD [address] [facility] [address] [place] [address] Consulting Physician Orthopaedic Sports Medicine 07/31/23 Jose A Espinosa MD 2 [facility] [address] [place] [address] Consulting Physician Pain Medicine-Pain Management 07/31/23 02/08/24 Hao Silvestre MD [address] [address] Consulting Physician Neurological Surgery 07/31/23 Carlos Dailey MD #2 [facility] [address] [place] [address] Consulting Physician Colon and Rectal Surgery 10/26/23 Saida Mckeon APRN, CLOUD SYSTEMS ADMINISTRATOR [address] [place] [address] Nurse Practitioner Gastroenterology 10/26/23 Jessenia Ward APRN, AUTO SERVICE STATION ATTENDANT [address] [place] [address] Nurse Practitioner Neurology 11/17/23 Hao Silvestre MD [address] [address] Consulting Physician Neurological Surgery 02/09/2401/27 Dominic Wang MD #[address] [place] [address] Consulting Physician Pain Medicine-Pain Management 02/09/24 Butch Muñiz MD #[address] [place] [address] Consulting Physician Neurology 02/23/24 documented as of this encounter
--- OUTSIDE RECORDS SUMMARY | 2025-02-17 09:21 | XMS_ITS | Encounter Summary ---
Author Organization [facility] Address [address] [place] [address] Care Team Providers Care Success Coach Name Role Phone Luann Cox MD Primary Care Provider [phone] Ana Hassan Unavailable [phone] Darwin Marti MD Primary Care Provider + [phone] Kirstie Unger MA Unavailable [phone] Encounter Details Date Type Department Care Team (Late st Contact Info) Description 10/19/2021 Ophth Exam [facility] [address] [place] [address] Brielle Howe MD [address] [place] [address] [place] [address] Social History Tobacco Use Types [...] on filedocumented in this encounter Care Teams Success Coach Relationship Specialty Start Date End Date Luann Cox MD PCP - General Family Medicine 05/06/21 10/26/23 Darwin Marti MD [address] [place] [address] PCP - General Internal Medicine 10/27/23 Ana Hassan Care Coordination Specialist Care Management 10/27/23 10/27/23 Kirstie Unger MA Care Coordination Specialist 10/21/24 10/24/24 documented as of this encounter
--- OUTSIDE RECORDS SUMMARY | 2025-02-17 09:21 | XMS_ITS | Clinical Summary ---
Author Organization [facility] Address [address] [facility] [place] [address] Care Team Providers Care Protozoologist Name Role Phone Darwin Marti MD Primary Care Provider [phone] Source Comments [facility],non-owned Affiliates and Associated Physician Practices is amultiple site organization consisting of ambulatory clinics and hospital sitesin [place], [place], [place] and [place]. This disclosure is being madepursuant to the Care Everywhere program and may not contain all information available regarding this patient. Last updated 18.[facility] Allergies Active Allergy Reactions Criticality Noted [...] 02/19/2015 Overview (03/28/2021): Mitral valve prolapse Immunizations Immunization Administration Dates Next Due INFLUENZA [...] 1-dose 75+ series) 01/15/2023 COVID-19 VACCINE ( - season) 2024 07/01/2021, 11/06/2020, 10/09/2020 DEPRESSION SCREENING [...] age to complete this topic Insurance MEDICARE [facility] Advance Directives * Full Code (Latest Code Status on File) Date Activated Date Inactivated Comments 10/18/2021 5:32 PM 10/19/2021 1:05 PM Care Teams Protozoologist Relationship Specialty Start Date End Date Darwin Marti MD [address] [place] [address] PCP - General Internal Medicine 10/27/23
--- OUTSIDE RECORDS SUMMARY | 2025-02-17 09:21 | XMS_ITS | Encounter Summary ---
Author Organization [facility] Address [address] [place] [address] Phone Care Team Providers Care Social Work Associate Name Role Phone Luann Cox MD Primary Care Provider + [phone] Josiane Pacheco MD Primary Care Provider + [phone] Blair Paris MD Unavailable [phone] Jose A Espinosa MD Unavailable [phone] Darwin Marti MD Primary Care Provider [phone] Hao Silvestre MD Unavailable [phone] Carlos Dailey MD Unavailable Saida Mckeon APRN, EMPLOYEE ADVISER Unavailable Jessenia Ward APRN, RN RECRUITMENT Unavailable +- [phone] Hao Silvestre MD Unavailable [phone] Dominic Wang MD Unavailable [phone] Butch Muñiz MD Unavailable [phone] Reason for Visit * Reason Comments Medication Refill Encounter Details Date Type Department Care Team (Late st Contact Info) Description 03/01/2022 Refill [facility] - Primary Care - [place] [address] [place] [address] Luann Cox MD [address] [place] [address] Medication Refill Social History Tobacco [...] Dept 12/16/21 Office Visit [facility]ann [facility] MD [facility] 06/27/21 Office Visit [facility] 03/07/21 Office Visit Luann Cox MD [facility] Showing recent visits within past 365 days and meeting all other requirements Future Appointments Date Type Provider Dept 05/23/22 Appointment [facility] 05/29/22 Appointment Luann Cox MD [facility] Showing future appointments within next [...] Dept 12/16/21 Office Visit Luann Cox MD [facility] 06/27/21 Office Visit Luann Cox MD [facility] 03/07/21 Office Visit Luann Cox MD [facility] Showing recent visits within past 365 days and meeting all other requirements Future Appointments Date Type Provider Dept 05/23/22 Appointment Lab, [facility] 05/29/22 Appointment Luann Cox MD [facility] Showing future appointments within next 90 days and meeting all other requirements documented in this encounter Plan of Treatment Upcoming Encounters Date Type Department Care Team (Late st Contact Info) Description 02/20/2025 9:30 AM CDT Office Visit [facility] - Neurology [facility] [address] [place] [address] Jessenia Ward APRN, RN RECRUITMENT [address] [place] [address] 03/09/2025 2:30 PM CDT Office Visit [facility] Family Medicine [facility] [address] [place] [address] Juan Shrestha MD #[address] [address] documented as of this encounter Visit Diagnoses Diagnosis Neuropathy Mononeuritis of unspecified site documented in this encounter Additional Health Concerns Infection Onset Date Last Indicated Resolved Time ESBL 08/16/2018 08/16/2018 09/28/2023 9:03 AM CDT COVID - 19 03/09/2023 03/09/2023 03/19/2023 12:1 6 AM CDT Respiratory Rule-Out 03/09/2023 03/09/2023 023 2:09 AM CDT COVID - 19 05/07/2023 05/07/2023 05/07/2023 9:50 AM REGISTERED DIETITIAN COVID - 19 Confirmed 05/07/2023 05/07/2023 023 12:16 AM REGISTERED DIETITIAN C. difficile Rule-Out 09/24/2023 09/24/20232023 3:41 PM CDT COVID - 19 09/24/2023 09/24/202309/2309/24/2023 11:3 2 AM CDT C. difficile Rule-Out 09/27/2023 09/27/20232023 2:13 PM CDT COVID - 19 02/23/2024 02/23/2024 02/23/2024 11:2 8 AM CDT Respiratory Rule-Out 02/23/2024 02/23/2024 024 11:30 AM CDT Assessment Noted Time PHQ-9 Depression Total Score: 2 07/14/19 20 10:00 AM REGISTERED DIETITIAN documented as of this encounter Care Teams Social Work Associate Relationship Specialty Start Date End Date Luann Cox MD PCP - General Family Medicine 04/15/15 11/02/22 Josiane Pacheco MD [address] [place] [address] PCP - General Family Medicine 11/20/22 07/30/23 Darwin Marti MD [address] [place] [address] PCP - General Internal Medicine 07/31/23 Blair Paris MD 4 [facility] , [address] [place] [address] Consulting Physician Orthopaedic Sports Medicine 07/31/23 Jose A Espinosa MD 2 [facility] [address] [place] [address] Consulting Physician Pain Medicine-Pain Management 07/31/23 02/08/24 Hao Silvestre MD [address] [id number] Consulting Physician Neurological Surgery 07/31/23 Carlos Dailey MD #[address] [address] Consulting Physician Colon and Rectal Surgery 10/26/23 Saida Mckeon APRN, EMPLOYEE ADVISER [address] [place] [address] Nurse Practitioner Gastroenterology 10/26/23 Jessenia Ward APRN, RN RECRUITMENT [address] [place] [address] Nurse Practitioner Neurology 11/17/23 Hao Silvestre MD [address] [address] Consulting Physician Neurological Surgery 02/09/2401/27 Dominic Wang MD #[address] [place] [address] Consulting Physician Pain Medicine-Pain Management 02/09/24 Butch Muñiz MD #[address] [place] [address] Consulting Physician Neurology 02/23/24 documented as of this encounter
--- OUTSIDE RECORDS SUMMARY | 2025-02-17 09:21 | XMS_ITS | Encounter Summary ---
Author Organization [facility] Address [address] [place] [address] Phone Care Team Providers Care Systems Management Consultant Name Role Phone Luann Cox MD Primary Care Provider + [phone] Josiane Pacheco MD Primary Care Provider + [phone] Blair Paris MD Unavailable [phone] Jose A Espinosa MD Unavailable [phone] Darwin Marti MD Primary Care Provider +[phone] Hao Silvestre MD Unavailable [phone] Carlos Dailey MD Unavailable Saida Mckeon APRN, TECHNOLOGY ADVISOR Unavailable Jessenia Ward APRN, RETORT COOLER Unavailable + [phone] Hao Silvestre MD Unavailable +[phone] Dominic Wang MD Unavailable [phone] Butch Muñiz MD Unavailable +[phone] Reason for Visit * Reason Comments Medication Refill Encounter Details Date Type Department Care Team (Late st Contact Info) Description 11/01/2021 Refill [facility] - Primary Care - [place] [address] [place] [address] Luann Cox MD [address] [place] [address] Medication Refill Social History Tobacco [...] Dept 06/27/21 Office Visit Luann Cox MD [facility] 03/07/21 Office Visit Luann Cox MD [facility] Showing recent visits within past 365 days [...] Dept 06/27/21 Office Visit Luann Cox MD [facility] 03/07/21 Office Visit Luann Cox MD [facility] Showing recent visits within past 365 days [...] Dept 06/27/21 Office Visit Luann Cox MD [facility] 03/07/21 Office Visit Luann Cox MD [facility] Showing recent visits within past 365 days [...] Dept 06/27/21 Office Visit Luann Cox MD [facility] [place] 03/07/21 Office Visit Luann Cox MD [facility] [place] Showing recent visits within past 365 days [...] Dept 06/27/21 Office Visit Luann Cox MD [facility] [address] 03/07/21 Office Visit Luann Cox MD [facility] Showing recent visits within past 365 [...] Office Visit [facility] Medical [facility] - Neurology [facility] [address] [place] [address] Jessenia Ward APRN, RETORT COOLER [address] [place] [address] 03/09/2025 2:30 PM CDT Office Visit [facility] Medical [facility] - Family Medicine [facility] [address] [place] [address] Juan Shrestha MD #[address] [address] documented as of this encounter Visit Diagnoses [...] - 19 05/07/2023 05/07/2023 05/07/2023 9:50 AM OPTICAL GLASS WET INSPECTOR COVID - 19 Confirmed 05/07/2023 05/07/2023 023 12:16 AM OPTICAL GLASS WET INSPECTOR C. difficile Rule-Out 09/24/2023 09/24/20232023 3:41 PM CDT COVID - 19 09/24/2023 09/24/2023 09/24/2023 11:3 2 AM CDT C. difficile Rule-Out 09/27/2023 09/27/20232023 2:13 PM CDT COVID - 19 02/23/2024 02/23/2024 02/23/2024 11:2 8 AM CDT Respiratory Rule-Out 02/23/2024 02/23/2024 024 11:30 AM CDT Assessment Noted Time PHQ-9 Depression Total Score: 2 07/14/19 20 10:00 AM OPTICAL GLASS WET INSPECTOR documented as of this encounter Care Teams Systems Management Consultant Relationship Specialty Start Date End Date Luann Cox MD PCP - General Family Medicine 04/15/15 11/02/22 Josiane Pacheco MD [address] [place] [address] PCP - General Family Medicine 11/20/22 07/30/23 Darwin Marti MD [address] [place] [address] PCP - General Internal Medicine 07/31/23 Blair Paris MD 4 [facility] [address] [place] [address] Consulting Physician Orthopaedic Sports Medicine 07/31/23 Jose A Espinosa MD 2 [facility] [address] [place] [address] Consulting Physician Pain Medicine-Pain Management 07/31/23 02/08/24 Hao Silvestre MD [address] [address] Consulting Physician Neurological Surgery 07/31/23 Carlos Dailey MD [address] [address] Consulting Physician Colon and Rectal Surgery 10/26/23 Saida Mckeon APRN, TECHNOLOGY ADVISOR #[address] [place] [address] Nurse Practitioner Gastroenterology 10/26/23 Jessenia Ward, COLLAR TACKER, RETORT COOLER [address] [place] [address] Nurse Practitioner Neurology 11/17/23 Hao Silvestre MD [address] [address] Consulting Physician Neurological Surgery 02/09/2401/27 Dominic Wang MD #[address] [place] [address] Consulting Physician Pain Medicine-Pain Management 02/09/24 Butch Muñiz MD #[address] [place] [address] Consulting Physician Neurology 02/23/24 documented as of this encounter
--- OUTSIDE RECORDS SUMMARY | 2025-02-17 09:21 | XMS_ITS | Encounter Summary ---
Author Organization [facility] Address [address] [place] [address] Phone Care Team Providers Care Air Cargo Specialist Name Role Phone Blair Paris MD Unavailable +[phone] Jose A Espinosa MD Unavailable +[phone] Darwin Marti MD Primary Care Provider +[phone] Hao Silvestre MD Unavailable +[phone] Carlos Daliey MD Unavailable Saida Mckeon APRN, COMMUNITY AIDE Unavailable Jessenia Ward APRN, [facility] Unavailable + [phone] Hao Silvestre MD Unavailable +[phone] Dominic Wang MD Unavailable [phone] Butch Muñiz MD Unavailable Reason for Visit * Reason Comments Medication Refill Encounter Details Date Type Department Care Team (Late Contact Info) Description 08/26/2023 [facility] - [place] [address] [place] [address] Ranjeet Boston PAC [address] [place] [address] Medication Refill Social History Tobacco [...] CST Patient need to get from neurosurgeon ARIAL ANALYST documented in this encounter Plan of Treatment Upcoming Encounters Date Type Department Care Team (Late Contact Info) Description 02/20/2025 9:30 AM CDT Office Visit [facility] - Neurology - [place] [address] [place] [address] Jessenia Ward APRN, PARCEL POST OFFICER #2 [place] [address] 03/09/2025 2:30 PM CDT Office Visit [facility] - Family Medicine - [place] [address] [place] [address] Juan Shrestha MD #[address] [facility] [address] [place] [address] documented as of this encounter Visit Diagnoses [...] Depression Total Score: 0 07/31/19 12:53 PM ACTUARIAL ANALYST documented as of this encounter Care Teams Air Cargo Specialist Relationship Specialty Start Date End Date Darwin Marti MD [address] [place] [address] PCP - General Internal Medicine 07/31/23 Blair Paris MD 4 [facility] [address] [place] [address] Consulting Physician Orthopaedic Sports Medicine 07/31/23 Jose A Espinosa MD 2 [facility] [address] [place] [address] Consulting Physician Pain Medicine-Pain Management 07/31/23 02/08/24 Hao Silvestre MD 6800 [facility] [address] [place] [address] Consulting Physician Neurological Surgery 07/31/23 Carlos Dailey MD #[address] [address] Consulting Physician Colon and Rectal Surgery 10/26/23 Saida Mckeon APRN, COMMUNITY AIDE #2 [place] [address] Nurse Practitioner Gastroenterology 10/26/23 Jessenia Ward APRN, PARCEL POST OFFICER [address] [place] [address] Nurse Practitioner Neurology 11/17/23 Hao Silvestre MD [address] [address] Consulting Physician Neurological Surgery 02/09/2401/27 Dominic Wang MD #2 [place] [address] Consulting Physician Pain Medicine-Pain Management 02/09/24 Butch Muñiz MD #2 [place] [address] Consulting Physician Neurology 02/23/24 documented as of this encounter
--- OUTSIDE RECORDS SUMMARY | 2025-02-17 09:21 | XMS_ITS | Encounter Summary ---
Author Organization [facility] Address [address] [place] [address] Phone Care Team Providers Care Metal Box Maker Name Role Phone Luann Cox MD Primary Care Provider + [phone] Josiane Pacheco MD Primary Care Provider + [phone] Blair Paris MD Unavailable +[phone] Jose A Espinosa MD Unavailable +[phone] Darwin Marti MD Primary Care Provider +[phone] Hao Silvestre MD Unavailable +[phone] Carlos Dailey MD Unavailable Saida Mckeon APRN, RN FAMILY Unavailable Jessenia Ward APRN, BRAKE REPAIRER AIR Unavailable + [phone] Hao Silvestre MD Unavailable +[phone] Dominic Wang MD Unavailable [phone] Butch Muñiz MD Unavailable +[phone] Reason for Visit * Reason Comments Medication Refill Encounter Details Date Type Department Care Team (Late st Contact Info) Description 01/01/2022 Refill [facility] - Primary Care - [place] [address] [place] [address] Luann Cox MD [address] [place] [address] Medication Refill Social History Tobacco [...] Dept 12/16/21 Office Visit [facility] MD [facility] 06/27/21 Office Visit Luann oCx MD [facility] [place] [facility] 03/07/21 Office Visit Luann Cox MD [facility] Showing recent visits within past 365 [...] Dept 12/16/21 Office Visit Luann Cox MD [facility] [place] [facility] 06/27/21 Office Visit Luann Cox MD [facility] [place] [facility] 03/07/21 Office Visit Luann Cox MD [facility] [place] [facility] Showing recent visits within past 365 [...] Dept 12/16/21 Office Visit Luann Cox MD [facility] 06/27/21 Office Visit Luann Cox MD [facility] 03/07/21 Office Visit Luann Cox MD [facility] Showing recent visits within past 365 days [...] Dept 12/16/21 Office Visit Luann Cox MD [facility] 06/27/21 Office Visit Luann Cox MD [facility] 03/07/21 Office Visit Luann Cox MD [facility] [place] [facility] Showing recent visits within past 365 [...] Dept 12/16/21 Office Visit Luann Cox MD [facility] 06/27/21 Office Visit Luann Cox MD [facility] 03/07/21 Office Visit Luann Cox MD [facility] Showing recent visits within past 365 [...] Description 02/20/2025 9:30 AM CDT Office Visit [facility] Neurology [facility] #2 [place] [address] Jessenia Ward APRN, BRAKE REPAIRER AIR #2 [place] [address] 03/09/2025 2:30 PM CDT Office Visit [facility] Family Medicine [facility] #2 [place] [address] Juan Shrestha MD #[address] [address] documented as of this encounter Visit Diagnoses [...] 05/07/2023 05/07/2023 05/07/2023 9:50 AM DIRECTOR OF STRATEGIC SOURCING COVID - 19 Confirmed 05/07/2023 05/07/2023 023 12:16 AM DIRECTOR OF STRATEGIC SOURCING C. difficile Rule-Out 09/24/2023 09/24/20232023 3:41 PM CDT COVID - 19 09/24/2023 09/24/2023 09/24/2023 11:3 2 AM CDT C. difficile Rule-Out 09/27/2023 09/27/20232023 2:13 PM CDT COVID - 19 02/23/2024 02/23/2024 02/23/2024 11:2 8 AM CDT Respiratory Rule-Out 02/23/2024 02/23/2024 024 11:30 AM CDT Assessment Noted Time PHQ-9 Depression Total Score: 2 07/14/19 20 10:00 AM DIRECTOR OF STRATEGIC SOURCING documented as of this encounter Care Teams Metal Box Maker Relationship Specialty Start Date End Date Luann Cox MD PCP - General Family Medicine 04/15/15 11/02/22 Josiane Pacheco MD [address] [place] [address] PCP - General Family Medicine 11/20/22 07/30/23 Darwin Marti MD [address] [place] [address] PCP - General Internal Medicine 07/31/23 Blair Paris MD 4 [facility] [address] [place] [address] Consulting Physician Orthopaedic Sports Medicine 07/31/23 Jose A Espinosa MD 2 [facility] [address] [place] [address] Consulting Physician Pain Medicine-Pain Management 07/31/23 02/08/24 Hao Silvestre MD [address] [place] [address] Consulting Physician Neurological Surgery 07/31/23 Carlos Dailey MD #[address] [address] Consulting Physician Colon and Rectal Surgery 10/26/23 Saida Mckeon APRN, RN FAMILY #2 [place] [address] Nurse Practitioner Gastroenterology 10/26/23 Jessenia Ward APRN, BRAKE REPAIRER AIR [address] [place] [address] Nurse Practitioner Neurology 11/17/23 Hao Silvestre MD [address] [address] Consulting Physician Neurological Surgery 02/09/2401/27 Dominic Wang MD #2 [place] [address] Consulting Physician Pain Medicine-Pain Management 02/09/24 Butch Muñiz MD #2 [place] [address] Consulting Physician Neurology 02/23/24 documented as of this encounter
--- OUTSIDE RECORDS SUMMARY | 2025-02-17 09:21 | XMS_ITS | Encounter Summary ---
Author Organization [facility] Address [address] [place] [address] Phone Care Team Providers Care Spear Fisher Name Role Phone Blair Paris MD Unavailable +[phone] Jose A Espinosa MD Unavailable +[phone] Darwin Marti MD Primary Care Provider +[phone] Hao Silvestre MD Unavailable +[phone] Carlos Dailey MD Unavailable Saida Mckeon APRN, TRAUMA DOCTOR Unavailable Jessenia Ward APRN, [facility] Unavailable + [phone] Hao Silvestre MD Unavailable +[phone] Dominic Wang MD Unavailable [phone] Butch Muñiz MD Unavailable Reason for Visit * Reason Comments Medication Refill Encounter Details Date Type Department Care Team (Late Contact Info) Description 09/08/2023 Refill [facility] - Primary Care - [place] [address] [place] [address] Josiane Pacheco MD [address] [place] [address] Medication Refill Social History Tobacco Use Types [...] Description 02/20/2025 9:30 AM CDT Office Visit [facility] Neurology - [place] [address] [place] [address] Jessenia Ward APRN, VERTICAL PUNCH OPERATOR #[address] [place] [address] 03/09/2025 2:30 PM CDT Office Visit [facility] - Family Medicine [facility] #2 [place] [address] Juan Shrestha MD #[address] [address] documented as of this encounter Visit Diagnoses [...] Depression Total Score: 0 07/31/19 12:53 PM SENIOR INTERNAL AUDITOR documented as of this encounter Care Teams Spear Fisher Relationship Specialty Start Date End Date Darwin Marti MD [address] [place] [address] PCP - General Internal Medicine 07/31/23 Blair Paris MD 4 [facility] [address] [place] [address] Consulting Physician Orthopaedic Sports Medicine 07/31/23 Jose A Espinosa MD 2 [facility] [address] [place] [address] Consulting Physician Pain Medicine-Pain Management 07/31/23 02/08/24 Hao Silvestre MD [address] [place] [address] Consulting Physician Neurological Surgery 07/31/23 Carlos Dailey MD #[address] [address] Consulting Physician Colon and Rectal Surgery 10/26/23 Saida Mckeon APRN, TRAUMA DOCTOR #[address] [place] [address] Nurse Practitioner Gastroenterology 10/26/23 Jessenia Ward APRN, VERTICAL PUNCH OPERATOR #[address] [place] [address] Nurse Practitioner Neurology 11/17/23 Hao Silvestre MD [address] [place] [address] Consulting Physician Neurological Surgery 02/09/2401/27 Dominic Wang MD #2 [place] [address] Consulting Physician Pain Medicine-Pain Management 02/09/24 Butch Muñiz MD #2 [place] [address] Consulting Physician Neurology 02/23/24 documented as of this encounter
--- OUTSIDE RECORDS SUMMARY | 2025-02-17 09:21 | XMS_ITS | Encounter Summary ---
Author Organization [facility] Address [address] [place] [address] Phone Care Team Providers Care Card Grader Name Role Phone Luann Cox MD Primary Care Provider + [phone] Josiane Pacheco MD Primary Care Provider + [phone] Blair Paris MD Unavailable +[phone] Jose A Espinosa MD Unavailable [phone] Darwin Marti MD Primary Care Provider +[phone] Hao Silvestre MD Unavailable +[phone] Carlos Dailey MD Unavailable Saida Mckeon APRN, SENIOR JAVA DATA ARCHITECT Unavailable Jessenia Ward APRN, URBAN PLANNER Unavailable +- [phone] Hao Silvestre MD Unavailable +[phone] Dominic Wang MD Unavailable [phone] Butch Muñiz MD Unavailable +[phone] Reason for Visit * Reason Comments Medication Refill Encounter Details Date Type Department Care Team (Late st Contact Info) Description 11/29/2021 Refill [facility] - Primary Care - [place] [address] [place] [address] Luann Cox MD [address] [place] [address] Medication Refill Social History Tobacco [...] Dept 06/27/21 Office Visit Luann Cox MD [facility] 03/07/21 Office Visit Luann Cox MD [facility] Showing recent visits within past 365 days and meeting all other requirements Future Appointments Date Type Provider Dept 12/10/21 Appointment Lab, [facility] 12/16/21 Appointment Luann Cox MD [facility] [place] [facility] Showing future appointments [...] Dept 06/27/21 Office Visit [facility] 03/07/21 Office Visit Luann Cox MD [facility] Showing recent visits within past 365 days and meeting all other requirements Future Appointments Date Type Provider Dept 12/10/21 Appointment [place], [facility] 12/16/21 Appointment Luann Cox MD [facility] [...] Description 02/20/2025 9:30 AM CDT Office Visit [facility] Medical [facility] - Neurology [facility] #2 [place] [address] Jessenia Ward APRN, URBAN PLANNER #[address] [place] [address] 03/09/2025 2:30 PM CDT Office Visit [facility] Medical [facility] - Family Medicine [facility] #2 [place] [address] Juan Shrestha MD #[address] [address] documented as of this encounter Visit Diagnoses Diagnosis Essential hypertension Unspecified essential hypertension documented in this encounter Additional Health Concerns Infection Onset Date Last Indicated Resolved Time ESBL 08/16/2018 08/16/2018 09/28/2023 9:03 AM CDT COVID - 19 03/09/2023 03/09/2023 03/19/2023 12:1 6 AM CDT Respiratory Rule-Out 03/09/2023 03/09/2023 023 2:09 AM CDT COVID - 19 05/07/2023 05/07/2023 05/07/2023 9:50 AM HEAD IRRIGATOR COVID - 19 Confirmed 05/07/2023 05/07/2023 023 12:16 AM HEAD IRRIGATOR C. difficile Rule-Out 09/24/2023 09/24/20232023 3:41 PM CDT COVID - 19 09/24/2023 09/24/2023 09/24/2023 11:3 2 AM CDT C. difficile Rule-Out 09/27/2023 09/27/20232023 2:13 PM CDT COVID - 19 02/23/2024 02/23/2024 02/23/2024 11:2 8 AM CDT Respiratory Rule-Out 02/23/2024 02/23/2024 024 11:30 AM CDT Assessment Noted Time PHQ-9 Depression Total Score: 2 07/14/19 20 10:00 AM HEAD IRRIGATOR documented as of this encounter Care Teams Card Grader Relationship Specialty Start Date End Date Luann Cox MD PCP - General Family Medicine 04/15/15 11/02/22 Josiane Pacheco MD [address] [place] [address] PCP - General Family Medicine 11/20/22 07/30/23 Darwin Marti MD [address] [place] [address] PCP - General Internal Medicine 07/31/23 Blair Paris MD [address] [place] [address], [address] [address] Consulting Physician Orthopaedic Sports Medicine 07/31/23 Jose A Espinosa MD [address] [address] Consulting Physician Pain Medicine-Pain Management 07/31/23 02/08/24 Hao Silvestre MD [address] [address] Consulting Physician Neurological Surgery 07/31/23 Carlos Dailey MD #[address] [address] Consulting Physician Colon and Rectal Surgery 10/26/23 Saida Mckeon APRN, SENIOR JAVA DATA ARCHITECT #[address] [place] [address] Nurse Practitioner Gastroenterology 10/26/23 Jessenia Ward APRN, URBAN PLANNER #[address] [place] [address] Nurse Practitioner Neurology 11/17/23 Hao Silvestre MD [address] [address] Consulting Physician Neurological Surgery 02/09/2401/27 Dominic Wang MD #2 [place] [address] Consulting Physician Pain Medicine-Pain Management 02/09/24 Butch Muñiz MD #2 [place] [address] Consulting Physician Neurology 02/23/24 documented as of this encounter
--- OUTSIDE RECORDS SUMMARY | 2025-02-17 09:21 | XMS_ITS | Encounter Summary ---
Author Organization [facility] Address [address] [place] [address] Phone Care Team Providers Care Supervisor Seaming Name Role Phone Blair Paris MD Unavailable +[phone] Darwin Marti MD Primary Care Provider + [phone] Hao Silvestre MD Unavailable +[phone] Carlos Dailey MD Unavailable Saida Mckeon APRN, SCHOOL CROSSING GUARD SUPERVISOR Unavailable Jessenia Ward APRN, LAUNDRY ASSISTANT Unavailable + [phone] Dominic Wang MD Unavailable [phone] Butch Muñiz MD Unavailable [phone] Reason for Visit * Reason Comments Medication Refill Encounter Details Date Type Department Care Team (Late st Contact Info) Description 03/04/[address] [facility] - Primary Care - [place] [address] [place] [address] Darwin Marti MD [address] [place] [address] Medication Refill Social History Tobacco Use Types Packs/Day Years Used Date Smoking Tobacco: Former Cigarettes 2 41.8 1 964 - 04/09/2005 Smokeless Tobacco: Never Alcohol Use Standard Drinks/Week Comments No 0 (1 standard drink = 0.6 oz pur e alcohol) [facility] Utilities Answer Date Recorded [...] often do you attend chur ch or islam services? Never 09/26/2023 Do you belong to any clubs o r organizations such as mormonism groups, unions, fraternal or athletic groups, or [...] Answer Date Recorded PHQ-2 Score 2 07/14/2019 [facility] [place] of Occupat ional Health - Occupational Stress [...] place to sleep or slept in a halfway (including now)? No 09/26/2023 Sexually Active Control [...] [facility] - [facility] - [place] #[address] [place] [address] Jessenia Ward, REPAIRER HELPER, LAUNDRY ASSISTANT #[address] [place] [address] 03/09/2025 2:30 PM CDT Office Visit [facility] Family Medicine - [place] #2 [place] [address] Juan Shrestha MD #[address] [address] documented as of this encounter Visit Diagnoses Not on filedocumented in this encounter Additional Health Concerns Assessment Noted Time PHQ-9 Depression Total Score: 0 07/31/19 24 12:53 PM LANDFILL GAS PLANT FIELD TECHNICIAN documented as of this encounter Care Teams Supervisor Seaming Relationship Specialty Start Date End Date Darwin Marti MD [address] [place] [address] PCP - General Internal Medicine 07/31/23 Blair Paris MD [address] [place] [address], [facility] [address] [place] [address] Consulting Physician Orthopaedic Sports Medicine 07/31/23 Hao Silvestre MD [address] [place] [address] Consulting Physician Neurological Surgery 07/31/23 Carlos Dailey MD #[address] [address] Consulting Physician Colon and Rectal Surgery 10/26/23 Saida Mckeon APRN, SCHOOL CROSSING GUARD SUPERVISOR #[address] [place] [address] Nurse Practitioner Gastroenterology 10/26/23 Jessenia Ward APRN, LAUNDRY ASSISTANT #[address] [place] [address] Nurse Practitioner Neurology 11/17/23 Dominic Wang MD #2 [place] [address] Consulting Physician Pain Medicine-Pain Management 02/09/24 Butch Muñiz MD #2 [place] [address] Consulting Physician Neurology 02/23/24 documented as of this encounter
--- OUTSIDE RECORDS SUMMARY | 2025-02-17 09:21 | XMS_ITS | Encounter Summary ---
Author Organization [facility] Address [address] [place] [address] Phone Care Team Providers Care Solid State Tester Name Role Phone Luann Cox MD Primary Care Provider + [phone] Josiane Pacheco MD Primary Care Provider + [phone] Blair Paris MD Unavailable [phone] Jose A Espinosa MD Unavailable [phone] Darwin Marti MD Primary Care Provider [phone] Hao Silvestre MD Unavailable [phone] Carlos Dailey MD Unavailable Saida Mckeon APRN, COTTON BAG SEWER Unavailable Jessenia Ward APRN, COMMUNITY DIETITIAN Unavailable + [phone] Hao Silvestre MD Unavailable [phone] Dominic Wang MD Unavailable [phone] Butch Muñiz MD Unavailable [phone] Reason for Visit * Reason Comments Medication Refill Encounter Details Date Type Department Care Team (Late st Contact Info) Description 04/29/2022 Refill [facility] - [facility] - [place] [address] [place] [id number] Luann Cox MD [address] [place] [address] Medication Refill Social History Tobacco [...] Dept 12/16/21 Office Visit Luann Cox MD [facility] 06/27/21 Office Visit Luann Cox MD [facility] Showing recent visits within past 365 days and meeting all other requirements Future Appointments Date Type Provider Dept 05/23/22 Appointment Lab, [place] [facility] 05/29/22 Appointment Luann Cox MD [facility] Showing future appointments within next 90 [...] Dept 12/16/21 Office Visit Luann Cox MD [facility] 06/27/21 Office Visit Luann Cox MD [facility] Showing recent visits within past 365 days and meeting all other requirements Future Appointments Date Type Provider Dept 05/23/22 Appointment Lab, [place] [facility] 05/29/22 Appointment Luann Cox MD [facility] Showing future appointments within next 90 [...] Dept 12/16/21 Office Visit Luann Cox MD [facility] 06/27/21 Office Visit Luann Cox MD [facility] Showing recent visits within past 365 days and meeting all other requirements Future Appointments Date Type Provider Dept 05/23/22 Appointment Lab, [place] [facility] 05/29/22 Appointment Luann Cox MD [facility] Showing future appointments within next 90 days [...] Dept 12/16/21 Office Visit Luann Cox MD [facility] 06/27/21 Office Visit Luann Cox MD [facility] Showing recent visits within past 365 days and meeting all other requirements Future Appointments Date Type Provider Dept 05/23/22 App[facility]ment [facility] [place] [facility] 05/29/22 Appointment Luann Cox MD [facility] [address] Showing future appointments within next 90 days and meeting all other requirements documented in this encounter Plan of Treatment Upcoming Encounters Date Type Department Care Team (Late st Contact Info) Description 02/20/2025 9:30 AM CDT [facility] [address] [place] [address] Jessenia Ward APRN, COMMUNITY DIETITIAN [address] [place] [address] 03/09/2025 2:30 PM CDT Office Visit [facility] [place] [address] [place] [address] Juan Shrestha MD #[address] [address] documented as of this encounter Visit Diagnoses [...] - 19 05/07/2023 05/07/2023 05/07/2023 9:50 AM RANCH MANAGER COVID - 19 Confirmed 05/07/2023 05/07/2023 023 12:16 AM RANCH MANAGER C. difficile Rule-Out 09/24/2023 09/24/20232023 3:41 PM CDT COVID - 19 09/24/2023 09/24/2023 09/24/2023 11:3 2 AM CDT C. difficile Rule-Out 09/27/2023 09/27/20232023 2:13 PM CDT COVID - 19 02/23/2024 02/23/2024 02/23/2024 11:2 8 AM CDT Respiratory Rule-Out 02/23/2024 02/23/2024 024 11:30 AM CDT Assessment Noted Time PHQ-9 Depression Total Score: 2 07/14/19 20 10:00 AM RANCH MANAGER documented as of this encounter Care Teams Solid State Tester Relationship Specialty Start Date End Date Luann Cxo MD PCP - General Family Medicine 04/15/15 11/02/22 Josiane Pacheco MD [address] [place] [address] PCP - General Family Medicine 11/20/22 07/30/23 Darwin Marti MD [address] [place] [address] PCP - General Internal Medicine 07/31/23 Blair Paris MD 4 [facility] [address] [place] [address] Consulting Physician Orthopaedic Sports Medicine 07/31/23 Jose A Espinosa MD 2 [facility] [address] [place] [address] Consulting Physician Pain Medicine-Pain Management 07/31/23 02/08/24 Hao Silvestre MD [address] [address] Consulting Physician Neurological Surgery 07/31/23 Carlos Daiely MD #2 [facility] [address] [place] [address] Consulting Physician Colon and Rectal Surgery 10/26/23 Saida Mckeon APRN, [facility] [address] [place] [address] Nurse Practitioner Gastroenterology 10/26/23 Jessenia Ward APRN, [facility] [address] [place] [address] Nurse Practitioner Neurology 11/17/23 Hao Silvestre MD [address] [address] Consulting Physician Neurological Surgery 02/09/2401/27 Dominic Wang MD #[address] [place] [address] Consulting Physician Pain Medicine-Pain Management 02/09/24 Butch Muñiz MD #[address] [place] [address] Consulting Physician Neurology 02/23/24 documented as of this encounter
--- OUTSIDE RECORDS SUMMARY | 2025-02-17 09:21 | XMS_ITS | Encounter Summary ---
Author Organization [facility] Address [address] [place] [address] Phone Care Team Providers Care [employer]er [employer] Name Role Phone Josiane Pacheco MD Primary Care Provider [phone] Blair Paris MD Unavailable [phone] Jose A Espinosa MD Unavailable [phone] Darwin Marti MD Primary Care Provider [phone] Hao Silvestre MD Unavailable [phone] Carlos Dailey MD Unavailable Saida Mckeon APRN, PRINTER[employer] DEVIL Unavailable Jessenia Ward APRN, ASSEMBLY STOCK SUPERVISOR Unavailable + [phone] Hao Silvestre MD Unavailable Dominic Wang MD Unavailable [phone] Butch Muñiz MD Unavailable [phone] Reason for Visit * Reason Comments Medication Refill Encounter Details Date Type Department Care Team ([facility] Contact Info) Description 03/31/2023 Refill [facility] - Primary Care - [place] [address] [place] [address] Josiane Pacheco MD [address] [place] [address] Medication Refill Social History Tobacco Use Types [...] Upcoming Encounters Date Type Department Care Team ([facility] Contact Info) Description 02/20/2025 9:30 AM CDT Office Visit [facility] Neurology [facility] [address] [place] [address] Jessenia Ward APRN, ASSEMBLY STOCK SUPERVISOR [address] [place] [address] 03/09/2025 2:30 PM CDT Office Visit [facility] Medical [facility] - Family Medicine - [place] [address] [place] [address] Juan Shrestha MD #[address] [address] documented as of this encounter Visit Diagnoses Diagnosis Spinal stenosis, lumbar region, with neurogenic claudication documented in this encounter Additional Health Concerns Infection Onset Date Last Indicated Resolved Time ESBL 08/16/2018 08/16/2018 09/28/2023 9:03 AM CDT COVID - 19 05/07/2023 05/07/2023 05/07/2023 9:50 AM FUNERAL SERVICE MANAGER COVID - 19 Confirmed 05/07/2023 05/07/2023 023 12:16 AM FUNERAL SERVICE MANAGER C. difficile Rule-Out 09/24/2023 09/24/20232023 3:41 PM CDT COVID - 19 09/24/2023 09/24/2023 09/24/2023 11:3 2 AM CDT C. difficile Rule-Out 09/27/2023 09/27/20232023 2:13 PM CDT COVID - 19 02/23/2024 02/23/2024 02/23/2024 11:2 8 AM CDT Respiratory Rule-Out 02/23/2024 02/23/2024 024 11:30 AM CDT Assessment Noted Time PHQ-9 Depression Total Score: 2 07/14/19 20 10:00 AM FUNERAL SERVICE MANAGER documented as of this encounter Care Teams [employer] Relationship Specialty Start Date End Date Josiane Pacheco MD [address] [place] [address] PCP - General Family Medicine 11/20/22 07/30/23 Darwin Marti MD [address] [place] [address] PCP - General Internal Medicine 07/31/23 Blair Paris MD 4 [facility] [address] [place] [address] Consulting Physician Orthopaedic Sports Medicine 07/31/23 Jose A Espinosa MD 2 [facility] [address] [place] [address] Consulting Physician Pain Medicine-Pain Management 07/31/23 02/08/24 Hao Silvestre MD [address] [address] Consulting Physician Neurological Surgery 07/31/23 Carlos Dailey MD [address] [address] Consulting Physician Colon and Rectal Surgery 10/26/23 Saida Mckeon APRN, [employer] [address] [place] [address] Nurse Practitioner Gastroenterology 10/26/23 Jessenia Ward APRN, ASSEMBLY STOCK SUPERVISOR [address] [place] [address] Nurse Practitioner Neurology 11/17/23 Hao Silvestre MD [address] [address] Consulting Physician Neurological Surgery 02/09/2401/27 Dominic Wang MD #2 [place] [address] Consulting Physician Pain Medicine-Pain Management 02/09/24 Butch Muñiz MD #2 [place] [address] Consulting Physician Neurology 02/23/24 documented as of this encounter
== END 2025-02-17 09:18 | disposition home or self-care (01) ==
PROVIDERS: PCP Family Medicine; Visit Provider Neurological Surgery
DX: M54.50 Low back pain, unspecified (principal); G89.29 Other chronic pain; Z98.1 Arthrodesis status
CPT/HCPCS: 72100

== ENCOUNTER 2025-03-01 09:28 | Outpatient (CLI) | payer MEDICARE, OTHER, SELFPAY ==
--- NOTE | ~2025-03-01 | CT_ITS ---
EXAMINATION: CT lumbar spine wo con DATE: 03/01/2025 09:48 INDICATION: Low back pain. Arthrodesis status. TECHNIQUE: Computed tomography (CT) of the lumbar spine was performed without intravenous contrast. The dose-length product was 655.78 mGy-cm. COMPARISON: Lumbar spine radiographs dated and CT dated 12/11/2023 FINDINGS: Unchanged straightening of the normal lumbar lordosis. 5 degrees lumbar dextrocurvature. L1 is transitional with small hypoplastic right-sided riblet. Interval L5 laminectomy and combined instrumented L5-S1 anterior and posterior spinal fusion with interbody bone graft cages on the left and right as well as bilateral vertical srinath and pedicle screw fixation. There is subtle linear lucency consistent with subacute to early chronic nondisplaced fracture extending across the anterior aspect of the right pedicle at L5. No definitive solid osseous bridging at the L5-S1 disc space. No change in a prior left L3-L4 hemilaminotomy. Vertebral body heights are normal. Moderate to severe disc height loss at L4-L5, mild to moderate disc height loss at L3-L4 and mild disc height loss at T12 and T12-L1. T11 hemangioma. 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 Interval left sacroiliac arthrodesis with 3 screws spanning the left sacroiliac joint. The following disc levels are specifically discussed: T12-L1: Small central disc protrusion. There is moderate bilateral facet joint osteoarthritis. There is no neural foraminal stenosis. There is mild central canal stenosis. L1-L2: Disc is mildly bulging. There is severe right and moderate left facet joint osteoarthritis. There is no neural foraminal stenosis. There is mild central canal stenosis. L2-L3: Disc is mildly bulging. There is moderate bilateral facet joint osteoarthritis. There is mild bilateral neural foraminal stenosis. There is mild central canal stenosis. L3-L4: Disc is bulging. There is moderate bilateral facet joint osteoarthritis. There is mild bilateral neural foraminal stenosis. There is decreased but still mild central canal stenosis. L4-L5: Disc is bulging. There is mild bilateral facet joint osteoarthritis. There is mild to moderate bilateral neural foraminal stenosis. Interval posterior decompression with decreased but still mild central canal stenosis. L5-S1: Interval instrumented anterior and posterior spinal fusion with prominent metallic streak artifact which limits evaluation of the soft tissues. The interbody bone graft cages project slightly beyond the endplate margins at the bilateral foraminal zones and despite the discectomy contribute to persistent mild to moderate bilateral neural foraminal stenosis. There is been interval posterior decompression. There appears to be greater than expected amount of soft tissue density in the region of the resected lamina and ligamentum flavum, particularly on the right with the low density CSF space appearing moderately narrowed. This assessment is however significantly more limited on CT than with MRI particularly given the presence of the surrounding streak artifact. IMPRESSION: 1. Severe lower lumbar spondylosis status post interval L5 laminectomy and combined instrumented L5-S1 anterior and posterior spinal fusion. Of note there appears to be a subacute to early chronic still discernible nondisplaced coronally oriented fracture extends across the anterior base of the right L5 pedicle. 2. Although significantly more limited on CT than with MRI particularly in the presence of streak artifact related to the metallic instrumentation, there appears to be increased soft tissue density at the laminectomy bed with suggestion of moderate residual central canal stenosis at this level. Would c onsider further evaluation with MRI as clinically indicated. 3. Interval instrumented left sacroiliac arthrodesis. Reviewed, dictated and finalized at location A. IMPRESSION: 1. Severe lower lumbar spondylosis status post interval L5 laminectomy and comb ined instrumented L5-S1 anterior and posterior spinal fusion. Of note there terry ears to be a subacute to early chronic still discernible nondisplaced coronally oriented fracture extends across the anterior base of the right L5 pedicle. 2. Although significantly more limited on CT than with MRI particularly in the presence of streak artifact related to the metallic instrumentation, there appe ars to be increased soft tissue density at the laminectomy bed with suggestion of moderate residual central canal stenosis at this level. Would consider furth er evaluation with MRI as clinically indicated. 3. Interval instrumented left sacroiliac arthrodesis.
== END 2025-03-01 09:29 | disposition home or self-care (01) ==
LOC: MICIMG 09:29
PROVIDERS: PCP Internal Medicine; Visit Provider Neurological Surgery
DX: Z98.1 Arthrodesis status (principal); M47.896 Other spondylosis, lumbar region
CPT/HCPCS: 72131

== ENCOUNTER 2025-03-06 12:42 | Inpatient (IN) | payer MEDICARE, OTHER, SELFPAY ==
--- OUTSIDE RECORDS SUMMARY | 2019-02-17 05:15 | XMS_ITS | Continuity of Care Document ---
Author Organization [facility] Address [address] [place] [address] Phone Care Team Providers Care Electronic Publications Specialist Name Role Phone Joao Mena OD Unavailable [...] Refraction After Cataract Laser Surgery Office/outpatient Visit, [facility] Advance Directives Directive Yes / No Effective Date File Name No Information Encounters Encounter Description Practice Location Reason(s) For Visit Diagnoses Date Provider Providers Copied on Encounter [facility] [employer] [facility], [address] [facility] [address], [place], [place], [address], [place] tel:[phone] [employer] GODINEZ Professional Post-Op (chief complaint) Post op visit [address] [facility], 6th [address], [place], [address], [place]. tel:[phone] Referring Provider: Demetrio Pinzon OD, [facility] [address] [place] [address], [address]. tel:[phone] [facility] Loris[facility], [address], [place], [place], [address], [place] tel:[phone] [employer] HERBERT Professional YAG PC (chief complaint) Post op visitOther secondary cataract, right eye 9 Maxwell Pearce. [address] [facility], [address], [place], [place], [address], [place]. tel:[phone] Referring Provider: Demetrio Pinzon OD, [facility] [address] [place] [address], [address]. tel:[phone] Office/outpa tient Visit, [facility] [employer], [facility], [address], [place], [place], [address], [place] tel:[phone] SEC [place] Professional YAG PC (chief complaint) Presence of intraocular lensOther secondary cataract, bilateralEndot helial corneal dystrophy 9 Maxwell Pearce. [address] [facility], [address], [place], [place], [address], [place]. tel:[phone] Referring Provider: Demetrio Pinzon OD, [employer] [address] [facility], [place], [address]. tel:[phone] Family History Family Member Type Diagnosis Age At Onset Mother Problem (finding) Diabetes mellitus Payers Payer name Insurance type Covered republican ID Authoriza tion(s) No Information Social History [...]
--- OUTSIDE RECORDS SUMMARY | 2019-02-17 05:15 | XMS_ITS | Continuity of Care Document ---
Author Organization [facility] Address [address] [place] [address] Phone Care Team Providers Care Time Study Technician Name Role Phone Joao Mena OD Unavailable [...] Refraction After Cataract Laser Surgery Office/outpatient Visit, [facility] Advance Directives Directive Yes / No Effective Date File Name No Information Encounters Encounter Description Practice Location Reason(s) For Visit Diagnoses Date Provider Providers Copied on Encounter [facility] [employer] [facility], [address] [facility] [address], [place], [place], [address], [place] tel:[phone] nuMVCtasha GODINEZ Professional Post-Op (chief complaint) Post op visit 9 Trina BURGOS Joao. [address] [facility], [address], [place], [address], [place]. tel:[phone] Referring Provider: Demetrio Pinzon OD, [employer] [address] [place] [address], [address]. tel:[phone] [facility] Hospital[facility], [address], [place], [place], [address], [place] tel:[phone] [employer] HERBERT Professional YAG PC (chief complaint) Post op visitOther secondary cataract, right eye 9 Maxwell Pearce. [address] [facility], [address], [place], [place], [address], [place]. tel:[phone] Referring Provider: Demetrio Pinzon OD, [employer] [address] [place] [address], [address]. tel:[phone] [facility]pa tient [facility], [facility] [employer]y [place], [facility], [address], [place], [place], [address], [place] tel:[phone] SEC [place] Professional YAG PC (chief complaint) Presence of intraocular lensOther secondary cataract, bilateralEndot helial corneal dystrophy 9 Maxwell Pearce. [address] [facility], [address], [place], [place], [address], [place]. tel:[phone] Referring Provider: Demetrio Pinzon OD, [employer] [address] [facility], [place], [address]. tel:[phone] Family History Family Member Type Diagnosis Age At Onset Mother Problem (finding) Diabetes mellitus Payers Payer name Insurance type Covered libertarian ID Authoriza tion(s) No Information Social History [...]
[2025-03-06] VITALS (11 sets, daily range): BP systolic 115–161; BP diastolic 65–97; PULSE 78–93; RESP 16–29; TEMP 36.4–36.7; O2SAT 93–100
--- NOTE | ~2025-03-06 | XR_ITS ---
EXAMINATION: XR chest 1V portable 03/06/2025 16:05 INDICATION: Leg edema PROCEDURE: AP portable chest COMPARISON: 11/23/2023 FINDINGS: The lungs are clear. The cardiomediastinal silhouette is within normal limits. There are no pleural effusions. There is no pneumothorax suspected. IMPRESSION: 1: NO ACUTE CARDIOPULMONARY DISEASE. Reviewed, dictated and finalized at location O.
--- NOTE | ~2025-03-06 | US_ITS ---
EXAMINATION:US venous doppler LE LT INDICATION:Pain and swelling TECHNIQUE: Multiple grayscale, color flow and Doppler images of the left lower extremity deep venous systems were obtained and reviewed. COMPARISON: FINDINGS: The common femoral, superficial femoral and popliteal veins demonstrate normal respiratory variation, augmentation and compressibility. Color flow is also seen within the posterior tibial, peroneal, greater saphenous and profunda veins. IMPRESSION: 1: No left lower extremity deep venous thrombosis. Reviewed, dictated and finalized at location Q.
--- NOTE | ~2025-03-06 | US_ITS ---
EXAMINATION: US venous doppler [facility] DATE: 03/06/2025 14:47 INDICATION: Bilateral lower limb swelling TECHNIQUE: Grayscale ultrasound images without and with compression and Doppler ultrasound images of the bilateral lower extremity veins were obtained. COMPARISON: None. FINDINGS: The visualized portions of right common femoral vein, profunda (deep) femoral vein, femoral vein, popliteal vein, posterior tibial veins, peroneal veins, gastrocnemius vein and greater saphenous vein outflow are patent. The visualized portions of left common femoral vein, profunda femoral vein, femoral vein, popliteal vein, posterior tibial veins, peroneal veins, gastrocnemius vein and greater saphenous vein outflow are patent. IMPRESSION: 1. No deep venous thrombosis in either lower limb. Reviewed, dictated and finalized at location A.
--- NOTE | ~2025-03-06 | CT_ITS ---
EXAMINATION: CT lumbar spine wo con DATE: 03/10/2025 09:55 INDICATION: Increased pain and leg numbness. TECHNIQUE: Computed tomography (CT) of the lumbar spine was performed without intravenous contrast. The dose-length product was 685.21 mGy-cm. COMPARISON: 03/01/2025 FINDINGS: No change in a left sacroiliac arthrodesis which is fixed with 3 screws. Instrumented L5-S1 anterior and posterior spinal fusion with bilateral posterior srinath and pedicle screw fixation. There is been revision of the left-sided instrumentation with repositioning of the vertical srinath which was previously laterally displaced from the left S1 pedicle screw. There appears to be some subtle increased lucency along the cephalad margin of the right L5 pedicle screw. Again seen is an unchanged subtle nondisplaced fracture extending across the base of the right L5 pedicle. There has been placement of new bone graft material space between the posterior margin of the bilateral sacral ala and the the left and right transverse processes of L5. Again seen are interbody fusion device at the left and right posterolateral aspects of the L5-S1 disc space. The devices project slightly beyond the endplate margins contributing to unchanged mild to moderate bilateral neural foraminal stenosis. There is a new surgical d rain along with some gas within the previous noted fluid collection at the L5 laminectomy bed consistent with interval decompression. Assessment for central canal stenosis at this level remains limited by postoperative changes and streak artifact from the instrumentation. No significant change in straightening of the normal lumbar lordosis and 7 degrees lumbar dextrocurvature. Transitional L1 segment with right-sided hypoplastic riblets. Vertebral body heights remain normal. No new fractures identified. No change in the lumbar and lower thoracic spondylosis as previously detailed on a level by level basis including moderate to severe disc height loss at L4-L5, mild to moderate disc height loss at L3-L4 and mild disc height loss at T10-T11, T11-T12 and T12-L1. IMPRESSION: 1. Again seen are changes of combined instrumented L5-S1 anterior and posterior spinal fusion with revision of the connection between the vertical srinath and the left S1 pedicle screw, placement of new bone graft material bilaterally and decompression with surgical drain placement at a postoperative hematoma/seroma at the laminectomy bed. 2. Redemonstration of nondisplaced fracture across the base of the right pedicle of L5 with some lucency along the cephalad margin of the right L5 pedicle screw at the level of the vertebral body. 3. Unchanged instrumented left sacroiliac arthrodesis. Reviewed, dictated and finalized at location A. IMPRESSION: 1. Again seen are changes of combined instrumented L5-S1 anterior and posterior spinal fusion with revision of the connection between the vertical srinath and the left S1 pedicle screw, placement of new bone graft material bilaterally and de compression with surgical drain placement at a postoperative hematoma/seroma at the laminectomy bed. 2. Redemonstration of nondisplaced fracture across the base of the right pedicl e of L5 with some lucency along the cephalad margin of the right L5 pedicle scr ew at the level of the vertebral body. 3. Unchanged instrumented left sacroiliac arthrodesis.
--- NOTE | ~2025-03-06 | XR_ITS ---
EXAMINATION: XR fluoroscopy no charge DATE: 03/16/2025 16:57 INDICATION: Left L5-S1 foraminotomy and revision of posterior spinal fusion TECHNIQUE: 3 fluoroscopic images of the lumbar spine were obtained during procedure performed by Dr. Silvestre. Radiologist was not present for the imaging or procedure. The amount of fluoroscopy time used during this procedure was 0.2 minutes. Total DAP was 1.194 Gycm^2. COMPARISON: MRI dated 03/16/[address] dated 03/10/25 FINDINGS: Initial image demonstrates tissue retractors particularly within the soft tissues posterior to the L5-S1. The tip of a metallic probe projects more anteriorly over the interbody fusion device at the L5-S1 disc space. Again seen are 3 fixation screws which span the left sacroiliac joint. Again seen are changes at L5-S1 posterior spinal fusion with bilateral vertical srinath and pedicle screw fixation. Subsequent images demonstrate removal of the left-sided vertical srinath which appears subsequently replaced on the final image. One of the interbody fusion devices appears to have been repositioned more anteriorly at the disc space. Lap sponge markers are seen on the initial 2 images at the operative bed are not visualized on the final image. IMPRESSION: 1. Fluoroscopy utilized during interpretation of an instrumented combined L5-S1 anterior and posterior spinal fusion. See procedure note for further detail. Reviewed, dictated and finalized at location A.
--- NOTE | ~2025-03-06 | MR_ITS ---
EXAMINATION: MR lumbar spine wo/w con DATE: 03/13/2025 12:31 INDICATION: Left lower extremity pain and weakness. TECHNIQUE: Magnetic resonance imaging (MRI) of the lumbar spine was performed without and with 17 mL MultiHance intravenous contrast. COMPARISON: Lumbar spine MRI 03/07/2025 FINDINGS: There is 6 degrees dextrocurvature of lumbar spine. There is mild kyphosis of lower lumbar spine. There are changes of posterior fusion procedure at L5-S1 with pedicle screws. Vertebral body heights are normal. There is a hemangioma in T11 vertebral body. There is mildly decreased disc height at L3-L4 and severely decreased disc height at L4-L5. There are changes of anterior fusion procedure at L5-S1. The distal spinal cord signal intensity is normal. The conus medullaris is at L1. There is a fluid collection involving the postoperative bed of the L5 posterior elements extending superiorly in the subcutaneous region measuring 14.9 x 3.0 x 2.2 cm. The following disc levels are specifically discussed: L1-L2: The disc is bulging. There is mild bilateral facet joint osteoarthritis. There is no neural foraminal stenosis. There is mild central canal stenosis. L2-L3: The disc is bulging. There is mild bilateral facet joint osteoarthritis. There is no neural foraminal stenosis. There is mild central canal stenosis. L3-L4: The disc is bulging and has an annular fissure. There is moderate bilateral facet joint osteoarthritis. There is mild bilateral neural foraminal stenosis. There is mild central canal stenosis. L4-L5: The disc is bulging and has an annular fissure. There is mild bilateral facet joint hypertrophy. There is mild bilateral neural foraminal stenosis. There is mild central canal stenosis. L5-S1: The disc is bulging and has an annular fissure. There is mild bilateral facet joint hypertrophy. There is moderate bilateral neural foraminal stenosis. There is enlargement of the epidural venous plexus. There is severe central canal stenosis. IMPRESSION: 1. Severe lumbar spondylosis. 2. Anterior and posterior fusion procedures at L5-S1. 3. Worsened fluid collection involving the surgical bed of the L5 posterior elements extending superiorly in the subcutaneous region. This finding may be a seroma, hematoma, or abscess. Reviewed, dictated and finalized at location K. IMPRESSION: 1. Severe lumbar spondylosis. 2. Anterior and posterior fusion procedures at L5-S1. 3. Worsened fluid collection involving the surgical bed of the L5 posterior karolina ments extending superiorly in the subcutaneous region. This finding may be a se gavin, hematoma, or abscess.
--- NOTE | ~2025-03-06 | MR_ITS ---
EXAMINATION: MR lumbar spine wo con DATE: 03/07/2025 14:45 INDICATION: Urinary incontinence post lumbar surgery TECHNIQUE: Magnetic resonance imaging (MRI) of the lumbar spine was performed without intravenous contrast. Sequences included sagittal T2-weighted FSE, sagittal T2-weighted FS FSE and sagittal T1-weighted FSE. Patient terminated the study due to back pain prior to obtaining the planned axial and post contrast images. COMPARISON: CT dated 03/01/2025 and MRI dated 09/24/2024 FINDINGS: Straightening of the normal lumbar lordosis. Postoperative change of prior L5 laminectomy with L5-S1 posterior spinal fusion with bilateral vertical srinath and pedicle screw fixation. There is also been prior L5-S1 instrumented anterior spinal fusion with placement of low signal intensity metallic fusion devices at the left and right posterolateral aspects of the disc space. There is a 3.5 x 3.2 x 3.2 cm loculated fluid collection situated at the L5 laminectomy bed. Finally there has been a L3-L4 left hemilaminotomy with residual 8 x 8 x 4 mm fluid collection at the operative bed. There is additional soft tissue edema in the surrounding paraspinal musculature of the mid to lower lumbar spine and in the overlying subcutaneous fat. There is additional Vertebral body heights are normal. Large T1 hyperintense hemangioma at T11. Moderate to severe disc height loss with fibrofatty and fibrovascular degenerative endplate change at L4-L5. Marrow signal is otherwise normal. There are unchanged small central disc protrusion at T12-L1 and disc bulges at L1-L2 through L4-L5 contributing to mild central canal stenosis at each of these levels. There appears be residual extruded disc material at L5-S1. There is also mild anterior bulging of the posterior margin of the thecal sac at the level of L5 and L5-S1 which may be due in part to the presence of the more posterior loculated fluid collection. This along with the residual extruded disc result in moderate central canal stenosis at L5-S1. This also likely accounts for the increased density seen in this region on the prior CT. There is multilevel neural foraminal stenosis, mild bilaterally at L2-L3 and L3-L4 and mild to moderate bilaterally at L4-L5. There appears to be at least moderate neural foraminal stenosis bilaterally at L5-S1 however is limited by the magnetic metallic field artifact associated with the anterior and posterior fusion instrumentation. The conus medullaris terminates at L1-L2. There is normal signal in the caudal spinal cord. IMPRESSION: 1. Status post L5 laminectomy with instrumented anterior and posterior L5-S1 spinal fusion. There is a 3.5 x 3.2 x 3.2 similar loculated fluid collection at the laminectomy bed most likely postoperative hematoma/seroma although differential would include abscess in the appropriate clinical setting. This exerts some mass effect upon the posterior margin of the thecal sac which along with some residual extruded disc material centrally at the L5-S1 disc space contributes to moderate central canal stenosis. 2. Moderate to severe spondylosis at L4-L5 and mild spondylosis and more cephalad lumbar spine with additional postoperative change of recent left L3-L4 hemilaminotomy. 3. Study limited by absence of axial and postcontrast imaging with study terminated prematurely due to patient discomfort. Reviewed, dictated and finalized at location A. IMPRESSION: 1. Status post L5 laminectomy with instrumented anterior and posterior L5-S1 sp inal fusion. There is a 3.5 x 3.2 x 3.2 similar loculated fluid collection at t he laminectomy bed most likely postoperative hematoma/seroma although different ial would include abscess in the appropriate clinical setting. This exerts some mass effect upon the posterior margin of the thecal sac which along with some residual extruded disc material centrally at the L5-S1 disc space contributes t o moderate central canal stenosis. 2. Moderate to severe spondylosis at L4-L5 and mild spondylosis and more cephal ad lumbar spine with additional postoperative change of recent left L3-L4 hemil aminotomy. 3. Study limited by absence of axial and postcontrast imaging with study termin ated prematurely due to patient discomfort.
--- OUTSIDE RECORDS SUMMARY | 2025-03-06 12:46 | XMS_ITS | Encounter Summary ---
Author Organization [facility] Address [address] [place] [address] Phone Care Team Providers Care Clinical Research Spec Name Role Phone Luann Cox MD Primary Care Provider + [phone] Josiane Pacheco MD Primary Care Provider + [phone] Blair Paris MD Unavailable [phone] Jose A Espinosa MD Unavailable +[phone] Darwin Marit MD Primary Care Provider +[phone] Hao Silvestre MD Unavailable [phone] Carlos Dailey MD Unavailable Saida Mckeon APRN, BATH ATTENDANT Unavailable Jessenia Ward APRN, RE EXAMINER Unavailable + [phone] Hao Silvestre MD Unavailable +[phone] Dominic Wang MD Unavailable [phone] Butch Muñiz MD Unavailable +[phone] Reason for Visit * Reason Comments Medication Refill Encounter Details Date Type Department Care Team (Late st Contact Info) Description 04/06/2020 Refill [facility] [address] [place] [address] Luann Cox MD [address] [place] [address] Medication Refill Social History Tobacco [...] Outpatient Visits 2 months ago Essential hypertension [facility] Luann Cox MD 9 months ago Essential hypertension [facility] Luann Torres MD 1 year ago Essential [facility] [place] [place] [facility] 1 year ago Syncope, unspecified syncope type [facility] Luann Torres MD 1 year ago Sore throat [facility] Upcoming Appointments Future Appointments In [address], [facility] In 3 months [facility], [facility] In 3 months Luann Cox MD [facility] FORESTRY TECHNICAL OFFICER - Recent and Past Visits Recent Visits Date Type Provider Dept 01/12/20 Office Visit Luann Cox MD [facility] 07/14/19 Office Visit Luann Cox MD [facility] 01/11/19 Office Visit Luann Cox MD [facility] Showing recent visits within past 460 days [...] Outpatient Visits 2 months ago Essential hypertension [facility] Luann Cox MD 9 months ago Essential hypertension [facility] [place] [facility] 1 year ago Essential hypertension [facility] - Luann Torres MD 1 year ago Syncope, unspecified syncope type [facility] Bensonuru, Luann, MD 1 year ago Sore throat [facility] Luann Torres MD Upcoming Appointments Future Appointments In [address] [facility] MRI, [facility] In 3 months Lab, [place] [facility] In 3 months Luann Cox MD [facility] FORESTRY TECHNICAL OFFICER - Recent and Past Visits Recent Visits Date Type Provider Dept 01/12/20 Office Visit Luann Cox MD [facility] 07/14/19 Office Visit Luann Cox MD [facility] 01/11/19 Office Visit Luann Cox MD [facility] Showing recent visits within past 460 days with a meds authorizing provider and meeting all other requirements Future Appointments No visits were found meeting these conditions. Showing future appointments within next 90 days with a meds authorizing provider and meeting all other requirements documented in this encounter Plan of Treatment Upcoming Encounters Date Type Department Care Team (Late st Contact Info) Description 03/09/2025 2:30 PM CDT Office Visit [facility] [address] [place] [address] Juan Shrestha MD #[address] [address] 04/21/2025 11:00 AM CDT Office Visit [facility] Neurology [facility] [address] [place] [id number] Jessenia Ward APRN, RE EXAMINER [address] [place] [address] documented as of this encounter Visit Diagnoses Diagnosis Gastroesophageal reflux disease Esophageal reflux documented in this encounter Additional Health Concerns Infection Onset Date Last Indicated Resolved Time ESBL 08/16/2018 08/16/2018 09/28/2023 9:03 AM CDT COVID - 19 03/09/2023 03/09/2023 03/19/2023 12:1 6 AM CDT Respiratory Rule-Out 03/09/2023 03/09/2023 023 2:09 AM CDT COVID - 19 05/07/2023 05/07/2023 05/07/2023 9:50 AM JOINT CUTTER COVID - 19 Confirmed 05/07/2023 05/07/2023 023 12:16 AM JOINT CUTTER C. difficile Rule-Out 09/24/2023 09/24/20232023 3:41 PM CDT COVID - 19 09/24/2023 09/24/2023 09/24/2023 11:3 2 AM CDT C. difficile Rule-Out 09/27/2023 09/27/20232023 2:13 PM CDT COVID - 19 02/23/2024 02/23/2024 02/23/2024 11:2 8 AM CDT Respiratory Rule-Out 02/23/2024 02/23/2024 024 11:30 AM CDT Assessment Noted Time PHQ-9 Depression Total Score: 2 07/14/19 20 10:00 AM JOINT CUTTER documented as of this encounter Care Teams Clinical Research Spec Relationship Specialty Start Date End Date Luann Cox MD PCP - General Family Medicine 04/15/15 11/02/22 Josiane Pacheco MD [address] [place] [address] PCP - General Family Medicine 11/20/22 07/30/23 Darwin Marti MD [address] [place] [address] PCP - General Internal Medicine 07/31/23 Blair Paris MD 4 [facility] [address] [place] [address] Consulting Physician Orthopaedic Sports Medicine 07/31/23 Jose A Espinosa MD [address] [facility] [address] [place] [address] Consulting Physician Pain Medicine-Pain Management 07/31/23 02/08/24 Hao Silvestre MD [address] [facility] [address] [place] [address] Consulting Physician Neurological Surgery 07/31/23 Carlos Dailey MD #2 [facility] [address] [place] [address] Consulting Physician Colon and Rectal Surgery 10/26/23 Saida Mckeon APRN, BATH ATTENDANT #[address] [place] [address] Nurse Practitioner Gastroenterology 10/26/23 Jessenia Ward, STUDENT SERVICES REPRESENTATIVE, RE EXAMINER [address] [place] [address] Nurse Practitioner Neurology 11/17/23 Hao Silvestre MD [address] [facility] [address] [place] [address] Consulting Physician Neurological Surgery 02/09/2401/27 Dominic Wang MD #2 [place] [address] Consulting Physician Pain Medicine-Pain Management 02/09/24 Butch Muñiz MD #2 [place] [address] Consulting Physician Neurology 02/23/24 documented as of this encounter
--- OUTSIDE RECORDS SUMMARY | 2025-03-06 12:46 | XMS_ITS | Encounter Summary ---
Author Organization [facility] Address [address] [place] [address] Phone Care Team Providers Care Support Coordinator Name Role Phone Blair Paris MD Unavailable +[phone] Jose A Espinosa MD Unavailable [phone] Darwin Marti MD Primary Care Provider [phone] Hao Silvestre MD Unavailable [phone] Carlos Dailey MD Unavailable Saida Mckeon APRN, JACKHAMMER OPERATOR Unavailable Jessenia Ward APRN, [facility] Unavailable + [phone] Hao Silvestre MD Unavailable [phone] Dominic Wang MD Unavailable [phone] Butch Muñiz MD Unavailable [phone] Reason for Visit * Reason Comments Medication Refill Encounter Details Date Type Department Care Team (Late Contact Info) Description [facility] [place] [address] [place] [address] Ranjeet Boston PAC [address] [place] [address] Medication Refill Social History Tobacco [...] CST Patient need to get from neurosurgeon US SUPERVISOR documented in this encounter Plan of Treatment Upcoming Encounters Date Type Department Care Team (Late Contact Info) Description 03/09/2025 2:30 PM CDT Office Visit [facility] Medical [facility] - Family Medicine - [place] [address] [place] [address] Juan Shrestha MD [address] [address] 04/21/2025 11:00 AM CDT Office Visit [facility] - Neurology - [place] [address] [place] [address] Jessenia Ward, BROADCASTING EQUIPMENT MECHANIC, SPEEDER FRAME TENDER [address] [place] [address] documented as of this encounter Visit Diagnoses [...] Depression Total Score: 0 07/31/19 12:53 PM CAMPUS SUPERVISOR documented as of this encounter Care Teams Support Coordinator Relationship Specialty Start Date End Date Darwin Marti MD [address] [place] [address] PCP - General Internal Medicine 07/31/23 Blair Paris MD 4 [facility] , [address] [place] [address] Consulting Physician Orthopaedic Sports Medicine 07/31/23 Jose A Espinosa MD 2 [facility] [address] [place] [address] Consulting Physician Pain Medicine-Pain Management 07/31/23 02/08/24 Hao Silvestre MD 68[address] [facility] [address] [place] [address] Consulting Physician Neurological Surgery 07/31/23 Carlos Dailey MD #[address] [address] Consulting Physician Colon and Rectal Surgery 10/26/23 Saida Mckeon APRN, JACKHAMMER OPERATOR #2 [place] [address] Nurse Practitioner Gastroenterology 10/26/23 Jessenia Ward APRN, SPEEDER FRAME TENDER [address] [place] [address] Nurse Practitioner Neurology 11/17/23 Hao Silvestre MD [address] [address] Consulting Physician Neurological Surgery 02/09/2401/27 Dominic Wang MD #[address] [place] [address] Consulting Physician Pain Medicine-Pain Management 02/09/24 Butch Muñiz MD #[address] [place] [address] Consulting Physician Neurology 02/23/24 documented as of this encounter
--- OUTSIDE RECORDS SUMMARY | 2025-03-06 12:46 | XMS_ITS | Encounter Summary ---
Author Organization [facility] Address [address] [place] [address] Phone Care Team Providers Care French Folder Name Role Phone Josiane Pacheco MD Primary Care Provider [phone] Blair Paris MD Unavailable [phone] Jose A Espinosa MD Unavailable [phone] Darwin Marti MD Primary Care Provider [phone] Hao Silvestre MD Unavailable +[phone] Carlos Dailey MD Unavailable Saida Mckeon APRN, PULMONOLOGY PHYSICIAN Unavailable Jessenia Ward APRN, SQL SSRS DEVELOPER Unavailable + [phone] Hao Silvestre MD Unavailable [phone] Dominic Wang MD Unavailable [phone] Butch Muñiz MD Unavailable Reason for Visit * Reason Comments Medication Refill Encounter Details Date Type Department Care Team (Late Contact Info) Description 03/31/2023 Refill [facility] Primary Care - [place] [address] [place] [address] Josiane Pacheco MD [address] [place] [address] Medication Refill Social History Tobacco Use Types [...] Upcoming Encounters Date Type Department Care Team ( Contact Info) Description 03/09/2025 2:30 PM CDT [facility] - Family Medicine - [place] [address] [place] [address] Juan Shrestha MD [address] [address] 04/21/2025 11:00 AM CDT [facility] [place] [address] [place] [address] Jessenia Ward APRN, SQL SSRS DEVELOPER #[address] [place] [address] documented as of this encounter Visit Diagnoses Diagnosis Spinal stenosis, lumbar region, with neurogenic claudication documented in this encounter Additional Health Concerns Infection Onset Date Last Indicated Resolved Time ESBL 08/16/2018 08/16/2018 09/28/2023 9:03 AM CDT COVID - 19 05/07/2023 05/07/2023 05/07/2023 9:50 AM PIE BAKERY LABORER COVID - 19 Confirmed 05/07/2023 05/07/2023 023 12:16 AM PIE BAKERY LABORER C. difficile Rule-Out 09/24/2023 09/24/20232023 3:41 PM CDT COVID - 19 09/24/2023 09/24/2023 09/24/2023 11:3 2 AM CDT C. difficile Rule-Out 09/27/2023 09/27/20232023 2:13 PM CDT COVID - 19 02/23/2024 02/23/2024 02/23/2024 11:2 8 AM CDT Respiratory Rule-Out 02/23/2024 02/23/2024 024 11:30 AM CDT Assessment Noted Time PHQ-9 Depression Total Score: 2 07/14/19 20 10:00 AM PIE BAKERY LABORER documented as of this encounter Care Teams French Folder Relationship Specialty Start Date End Date Josiane Pacheco MD [address] [place] [address] PCP - General Family Medicine 11/20/22 07/30/23 Darwin Marti MD [address] [place] [address] PCP - General Internal Medicine 07/31/23 Blair Paris MD 4 [facility] [address] [place] [address] Consulting Physician Orthopaedic Sports Medicine 07/31/23 Jose A Espinosa MD 2 [facility] [address] [place] [address] Consulting Physician Pain Medicine-Pain Management 07/31/23 02/08/24 Hao Silvestre MD [address] [address] Consulting Physician Neurological Surgery 07/31/23 Carlos Dailey MD [address] [address] Consulting Physician Colon and Rectal Surgery 10/26/23 Saida Mckeon APRN, PULMONOLOGY PHYSICIAN #[address] [place] [address] Nurse Practitioner Gastroenterology 10/26/23 Jessenia Ward APRN, SQL SSRS DEVELOPER #[address] [place] [address] Nurse Practitioner Neurology 11/17/23 Hao Silvestre MD [address] [address] Consulting Physician Neurological Surgery 02/09/2401/27 Dominic Wang MD #2 [place] [address] Consulting Physician Pain Medicine-Pain Management 02/09/24 Butch Muñiz MD #[address] [place] [address] Consulting Physician Neurology 02/23/24 documented as of this encounter
--- OUTSIDE RECORDS SUMMARY | 2025-03-06 12:46 | XMS_ITS | Encounter Summary ---
Author Organization [facility] Address [address] [place] [address] Phone Care Team Providers Care Charge Nurse Name Role Phone NaidaalisBlair guerrero MD Unavailable [phone] Darwin Marti MD Primary Care Provider [phone] Hao Silvestre MD Unavailable [phone] Carlos Dailey MD Unavailable Saida Mckeon APRN, CASE PLANNER Unavailable Jessenia Ward APRN, CHEMICAL TANK WORKER Unavailable + [phone] Dominic Wang MD Unavailable [phone] Butch Muñiz MD Unavailable [phone] Reason for Visit * Reason Onset Date Comments Cough 02/23/2024 Chest Congestion 02/23/2024 Encounter Details Date Type Department Care Team (Late st Contact Info) Description 02/23/2024 Nurse Triage [facility] [address] [place] [address] Darwin Marti MD [address] [place] [address] Cough; Chest Congestion Social History Tobacco Use Types Packs/Day Years Used Date Smoking Tobacco: Former Cigarettes 2 41.8 1 964 - 04/09/2005 Smokeless Tobacco: Never Alcohol Use Standard Drinks/Week Comments No 0 (1 standard drink = 0.6 oz pur e alcohol) [facility] Utilities Answer Date Recorded In [...] week 09/26/2023 How often do you attend [facility] ch or restoration services? Never 09/26/2023 Do you belong to any clubs o r organizations such as temple groups, unions, fraternal or athletic groups, or [...] Answer Date Recorded PHQ-2 Score 2 07/14/2019 [facility] [place] of Occupat ional Health - Occupational Stress [...] Dept Phone 02/23/2024 9:15 AM Butch Muñiz [facility] - Neurology - [place] [phone] 02/23/2024 11:00 AM Darwin Marti [facility] - Primary Care - [place] [phone] Patient states that her medications and allergies [...] Description 03/09/2025 2:30 PM CDT Office Visit [facility] - Family Medicine - [place] [address] [place] [address] Juan Shrestha MD #[address] [address] 04/21/2025 11:00 AM CDT [facility] [place] [address] [place] [address] Jessenia Ward, BUDGET RECORD CLERK, CHEMICAL TANK WORKER [address] [place] [address] documented as of this encounter Visit Diagnoses Not on filedocumented in this encounter Additional Health Concerns Infection Onset Date Last Indicated Resolved Time COVID - 19 02/23/2024 02/23/2024 02/23/2024 11:2 8 AM CDT Respiratory Rule-Out 02/23/2024 02/23/2024 024 11:30 AM CDT Assessment Noted Time PHQ-9 Depression Total Score: 0 07/31/19 24 12:53 PM TURNING LATHE TENDER documented as of this encounter Care Teams Charge Nurse Relationship Specialty Start Date End Date Darwin Marti MD [address] [place] [address] PCP - General Internal Medicine 07/31/23 Blair Paris MD [address] [place] [address], [facility] [address] [place] [address] Consulting Physician Orthopaedic Sports Medicine 07/31/23 Hao Silvestre MD [facility] [address] [place] [id number] Consulting Physician Neurological Surgery 07/31/23 Carlos Dailey MD #[address] [address] Consulting Physician Colon and Rectal Surgery 10/26/23 Saida Mckeon APRN, CASE PLANNER #[address] [place] [address] Nurse Practitioner Gastroenterology 10/26/23 Jessenia Ward APRN, CHEMICAL TANK WORKER [address] [place] [address] Nurse Practitioner Neurology 11/17/23 Dominic Wang MD #[address] [place] [address] Consulting Physician Pain Medicine-Pain Management 02/09/24 Butch Muñiz MD #[address] [place] [address] Consulting Physician Neurology 02/23/24 documented as of this encounter
--- OUTSIDE RECORDS SUMMARY | 2025-03-06 12:46 | XMS_ITS | Encounter Summary ---
Author Organization [facility] Address [address] [place] [address] Phone Care Team Providers Care Ingredient Scaler Name Role Phone Blair Paris MD Unavailable [phone] Darwin Marti MD Primary Care Provider + [phone] Hao Silvestre MD Unavailable [phone] Carlos Dailey MD Unavailable Saida Mckeon APRN, SLOT OPERATIONS DIRECTOR Unavailable Jessenia Ward APRN, COTTON BALER Unavailable + [phone] Dominic Wang MD Unavailable [phone] Butch Muñiz MD Unavailable [phone] Reason for Visit * Reason Comments Medication Refill Encounter Details Date Type Department Care Team (Late st Contact Info) Description 03/04/2024 Refill [facility] - Primary Care - [place] [address] [place] [address] Darwin Marti MD [address] [place] [address] Medication Refill Social History Tobacco Use Types Packs/Day Years Used Date Smoking Tobacco: Former Cigarettes 2 41.8 1 964 - 04/09/2005 Smokeless Tobacco: Never Alcohol Use Standard Drinks/Week Comments No 0 (1 standard drink = 0.6 oz pur e alcohol) [facility] Utilities Answer Date Recorded In the [...] any clubs o r organizations such as scientologist groups, unions, fraternal or athletic groups, or [...] Answer Date Recorded PHQ-2 Score 2 07/14/2019 [facility] [place] of Occupat ional Health - Occupational Stress [...] Description 03/09/2025 2:30 PM CDT Office Visit [facility] Medical [facility] - Family Medicine - [place] [address] [place] [address] Juan Shrestha MD #[address] [address] 04/21/2025 11:00 AM CDT Office Visit [facility] - Neurology - [place] #[address] [place] [address] Jessenia Ward APRN, COTTON BALER #[address] [place] [address] documented as of this encounter Visit Diagnoses Not on filedocumented in this encounter Additional Health Concerns Assessment Noted Time PHQ-9 Depression Total Score: 0 07/31/19 24 12:53 PM FORENSIC MATERIALS ENGINEER documented as of this encounter Care Teams Ingredient Scaler Relationship Specialty Start Date End Date Darwin Marti MD [address] [place] [address] PCP - General Internal Medicine 07/31/23 Blair Paris MD [address] [place] [address], [address] [address] Consulting Physician Orthopaedic Sports Medicine 07/31/23 Hao Silvestre MD [address] [place] [id number] Consulting Physician Neurological Surgery 07/31/23 Carlos Dailey MD #[address] [address] Consulting Physician Colon and Rectal Surgery 10/26/23 Saida Mckeon APRN, SLOT OPERATIONS DIRECTOR #[address] [place] [address] Nurse Practitioner Gastroenterology 10/26/23 Jessenia Ward APRN, COTTON BALER #[address] [place] [address] Nurse Practitioner Neurology 11/17/23 Dominic Wang MD #[address] [place] [address] Consulting Physician Pain Medicine-Pain Management 02/09/24 Butch Muñiz MD #[address] [place] [address] Consulting Physician Neurology 02/23/24 documented as of this encounter
--- OUTSIDE RECORDS SUMMARY | 2025-03-06 12:46 | XMS_ITS | Encounter Summary ---
Author Organization [facility] Address [address] [place] [address] Phone Care Team Providers Care Pre School Manager Name Role Phone Luann Cox MD Primary Care Provider + [phone] Josiane Pacheco MD Primary Care Provider + [phone] Blair Paris MD Unavailable +[phone] Jose A Espinosa MD Unavailable +[phone] Darwin Marti MD Primary Care Provider +[phone] Hao Silvestre MD Unavailable +[phone] Carlos Dailey MD Unavailable Saida Mckeon APRN, POWER BARKER OPERATOR Unavailable Jessenia Ward APRN, EXPERIENCE PLANNING STRATEGIST Unavailable + [phone] Hao Silvestre MD Unavailable +[phone] Dominic Wang MD Unavailable [phone] Butch Muñiz MD Unavailable +[phone] Reason for Visit * Reason Comments Medication Refill Encounter Details Date Type Department Care Team (Late st Contact Info) Description 11/01/2021 Refill [facility] - [facility] Care - [place] [address] [place] [phone] Luann Cox MD [address] [place] [address] Medication Refill Social History Tobacco [...] Dept 06/27/21 Office Visit Luann Cox MD [facility] 03/07/21 Office Visit Luann Cox MD [facility] Showing recent visits within past 365 [...] Dept 06/27/21 Office Visit Luann Cox MD [facility] 03/07/21 Office Visit Luann Cox MD [facility] Showing recent visits within past 365 [...] Dept 06/27/21 Office Visit Luann Cox MD [facility] 03/07/21 Office Visit Luann Cox MD [facility] Showing recent visits within past 365 [...] Dept 06/27/21 Office Visit Luann Cox MD [facility] [employer] 03/07/21 Office Visit Luann Cox MD [facility] [employer] Showing recent visits within past 365 days [...] Dept 06/27/21 Office Visit Luann Cox MD [facility] [address] 03/07/21 Office Visit [facility] Showing recent visits within [...] Description 03/09/2025 2:30 PM CDT Office Visit [facility] Medical [facility] - Family Medicine [facility] [address] [place] [address] Juan Shrestha MD #[address] [address] 04/21/2025 11:00 AM CDT Office Visit [facility] - Neurology [facility] [address] [place] [address] Jessenia Ward APRN, EXPERIENCE PLANNING STRATEGIST [address] [place] [address] documented as of this encounter Visit Diagnoses [...] - 19 05/07/2023 05/07/2023 05/07/2023 9:50 AM AERIAL PLANTING AND CULTIVATION MANAGER COVID - 19 Confirmed 05/07/2023 05/07/2023 023 12:16 AM AERIAL PLANTING AND CULTIVATION MANAGER C. difficile Rule-Out 09/24/2023 09/24/20232023 3:41 PM CDT COVID - 19 09/24/2023 09/24/2023 09/24/2023 11:3 2 AM CDT C. difficile Rule-Out 09/27/2023 09/27/20232023 2:13 PM CDT COVID - 19 02/23/2024 02/23/2024 02/23/2024 11:2 8 AM CDT Respiratory Rule-Out 02/23/2024 02/23/2024 024 11:30 AM CDT Assessment Noted Time PHQ-9 Depression Total Score: 2 07/14/19 20 10:00 AM AERIAL PLANTING AND CULTIVATION MANAGER documented as of this encounter Care Teams Pre School Manager Relationship Specialty Start Date End Date Luann Cox MD PCP - General Family Medicine 04/15/15 11/02/22 Josiane Pacheco MD [address] [place] [address] PCP - General Family Medicine 11/20/22 07/30/23 Darwin Marti MD [address] [place] [address] PCP - General Internal Medicine 07/31/23 Blair Paris MD 4 [facility] [address] [place] [address] Consulting Physician Orthopaedic Sports Medicine 07/31/23 Jose A Espinosa MD 2 [facility] [address] [place] [address] Consulting Physician Pain Medicine-Pain Management 07/31/23 02/08/24 Hao Silvestre MD [address] [address] Consulting Physician Neurological Surgery 07/31/23 Carlos Dailey MD [address] [address] Consulting Physician Colon and Rectal Surgery 10/26/23 Saida Mckeon APRN, POWER BARKER OPERATOR [address] [place] [address] Nurse Practitioner Gastroenterology 10/26/23 Jessenia Ward, RN TRANSITIONAL CARE, EXPERIENCE PLANNING STRATEGIST [address] [place] [address] Nurse Practitioner Neurology 11/17/23 Hao Silvestre MD [address] [address] Consulting Physician Neurological Surgery 02/09/2401/27 Dominic Wang MD [address] [place] [address] Consulting Physician Pain Medicine-Pain Management 02/09/24 Butch Muñiz MD [address] [place] [address] Consulting Physician Neurology 02/23/24 documented as of this encounter
--- OUTSIDE RECORDS SUMMARY | 2025-03-06 12:46 | XMS_ITS | Encounter Summary ---
Author Organization [facility] Address [address] [place] [address] Phone Care Team Providers Care Tire Shop Mechanic Name Role Phone Luann Cox MD Primary Care Provider + [phone] Josiane Pacheco MD Primary Care Provider + [phone] Blair Paris MD Unavailable [phone] Jose A Espinosa MD Unavailable [phone] Darwin Marti MD Primary Care Provider +[phone] Hao Silvestre MD Unavailable +[phone] Carlos Dailey MD Unavailable Saida Mckeon APRN, YARD HAND Unavailable Jessenia Ward APRN, MAIN LINE STATION ENGINEER Unavailable + [phone] Hao Silvestre MD Unavailable +[phone] Dominic Wang MD Unavailable [phone] Butch Muñiz MD Unavailable +[phone] Reason for Visit * Reason Comments Medication Refill Encounter Details Date Type Department Care Team (Late st Contact Info) Description 01/01/2022 Refill [facility] - Primary Care - [place] [address] [place] [phone] Luann Cox MD [address] [place] [address] Medication Refill Social History Tobacco [...] Dept 12/16/21 Office Visit Luann Cox MD [facility] [employer] [facility] 06/27/21 Office Visit Luann Cox MD [facility] 03/07/21 Office Visit Luann Cox MD [facility] [employer] [facility] Showing recent visits within past [...] Visit Luann Cox MD [facility] 06/27/21 Office Visit Luann Cox MD [facility] 03/07/21 Office Visit Luann Cox MD [facility] Showing recent visits within past [...] Dept 12/16/21 Office Visit Luann Cox MD [facility] [employer] [facility] 06/27/21 Office Visit Luann Cox MD [facility] [place] [employer] [facility] 03/07/21 Office Visit Luann Cox MD [facility] [place] [place] [employer] Showing recent visits within past 365 days [...] Dept 12/16/21 Office Visit Luann Cox MD [facility] [place] [employer] 06/27/21 Office Visit Luann Cox MD [facility] [place] [employer] [facility] 03/07/21 Office Visit Luann Cox MD [facility] Showing recent visits within past [...] Dept 12/16/21 Office Visit Luann Cox MD [facility] [place] [employer] [facility] 06/27/21 Office Visit Luann Cox MD [facility] [place] [employer] [facility] 03/07/21 Office Visit Luann Cox MD [facility] [employer] [facility] Showing recent visits within past [...] Description 03/09/2025 2:30 PM CDT Office Visit [facility] Medical [facility] - Family [facility] [address] [place] [address] Juan Shrestha MD #[address] [address] 04/21/2025 11:00 AM CDT Office Visit [facility] - [facility] [address] [place] [address] Jessenia Ward APRN, MAIN LINE STATION ENGINEER [address] [place] [address] documented as of this encounter Visit Diagnoses [...] - 19 05/07/2023 05/07/2023 05/07/2023 9:50 AM PHYSICIAN OBSTETRICIAN COVID - 19 Confirmed 05/07/2023 05/07/2023 023 12:16 AM PHYSICIAN OBSTETRICIAN C. difficile Rule-Out 09/24/2023 09/24/20232023 3:41 PM CDT COVID - 19 09/24/2023 09/24/2023 09/24/2023 11:3 2 AM CDT C. difficile Rule-Out 09/27/2023 09/27/20232023 2:13 PM CDT COVID - 19 02/23/2024 02/23/2024 02/23/2024 11:2 8 AM CDT Respiratory Rule-Out 02/23/2024 02/23/2024 024 11:30 AM CDT Assessment Noted Time PHQ-9 Depression Total Score: 2 07/14/19 20 10:00 AM PHYSICIAN OBSTETRICIAN documented as of this encounter Care Teams Tire Shop Mechanic Relationship Specialty Start Date End Date Luann Cox MD PCP - General Family Medicine 04/15/15 11/02/22 Josiane Pacheco MD [address] [place] [address] PCP - General Family Medicine 11/20/22 07/30/23 Darwin Marti MD [address] [place] [address] PCP - General Internal Medicine 07/31/23 Blair Paris MD 4 [facility] [address] [place] [address] Consulting Physician Orthopaedic Sports Medicine 07/31/23 Jose A Espinosa MD 2 [facility] [address] [place] [address] Consulting Physician Pain Medicine-Pain Management 07/31/23 02/08/24 Hao Silvestre MD [address] [place] [address] Consulting Physician Neurological Surgery 07/31/23 Carlos Dailey MD [address] [address] Consulting Physician Colon and Rectal Surgery 10/26/23 Saida Mckeon APRN, YARD HAND [address] [place] [address] Nurse Practitioner Gastroenterology 10/26/23 Jessenia Ward APRN, MAIN LINE STATION ENGINEER [address] [place] [address] Nurse Practitioner Neurology 11/17/23 Hao Silvestre MD [address] [address] Consulting Physician Neurological Surgery 02/09/2401/27 Dominic Wang MD [address] [place] [address] Consulting Physician Pain Medicine-Pain Management 02/09/24 Butch Muñiz MD [address] [place] [address] Consulting Physician Neurology 02/23/24 documented as of this encounter
--- OUTSIDE RECORDS SUMMARY | 2025-03-06 12:46 | XMS_ITS | Clinical Summary ---
Author Organization [facility] Address [address] [place] [address] Phone Care Team Providers Care Wet Roaster Name Role Phone Blair Paris MD Unavailable [phone] Darwin Marti MD Primary Care Provider [phone] Hao Sivlestre MD Unavailable [phone] Carlos Dailey MD Unavailable Saida Mckeon APRN, AIRBRUSH ARTIST TECHNICAL Unavailable Jessenia Ward APRN, FISH CONSERVATIONIST Unavailable + [phone] Dominic Wang MD Unavailable [phone] Butch Muñiz MD Unavailable [phone] Allergies Active Allergy Reactions Criticality Noted Date Comments Cephalosporins Rash Medium 02/08/2020 Codeine Unknown Meperidine Hives 06/15/2015 Fish Allergy Unknown,Other (see Comments) 06/15/2015 Reaction: Unknown, Kiwi Extract Unknown 06/15/2015 Latex Itching 06/15/2015 Penicillins Unknown Demotte Extract Unknown 06/15/2015 Sulfa Antibiotics Unknown Tetanus [...] Additional Information Patient not taking.Reported on 11/08/2024 meloxicam (MOBIC) 15 MG Tablet Take 1 Tablet by mouth daily. 90 Tablet 1 12/18/19 25 Active lisinopril (PRINIVIL, ZESTRIL) 10 MG TabletIndicatio ns:Hypertension , essential Take 1 tablet by mouth once daily 90 Tablet 01/24/20 25 Active hydroCHLOROthia zide (MICROZIDE) 12.5 MG CapsuleIndicati ons:Hypertensio n, essential Take 1 capsule by mouth once daily 90 Capsule 02/21/20 25 Active levothyroxine (SYNTHROID) 50 MCG TabletIndicatio ns:Hypothyroidi sm (acquired) Take 1 tablet by mouth once daily 90 Tablet 1 03/02/20 25 Active hydroCHLOROthia zide (MICROZIDE) 12.5 MG CapsuleIndicati ons:Hypertensio n, essential Take 1 capsule by mouth once daily 90 Capsule 11/16/19 25 025 Discontinued levothyroxine (SYNTHROID) 50 MCG TabletIndicatio ns:Hypothyroidi sm (acquired) Take 1 tablet by mouth once daily 90 Tablet 12/08/19 25 025 Discontinued Active Problems Problem Noted [...] Date Intractable abdominal pain 09/26/2023 0 02/09/2024 FPC current use of 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 07/04/202207/31/2023 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 4 Seizure 06/27/2021 07/31/2023 GERD (gastroesophageal reflux disease) 03/28/202107/31/2023 Degenerative lumbar spinal stenosis 03/28/202107/3102/09/2024 Orbital lesion 03/07/2021 07/31/2023 Chest pain 11/20/2019 01/12/2020 Nausea and vomiting 11/20/2019 01/12/20 Syncope and collapse 11/20/2019 020 'Qjdhc-efr-rmtsi' infant wit h signs of malnutrition 01/11/2019 [...] Encounters Date Type Department Care Team Description 03/02/[facility] [place] [address] [place] [id number] Darwin Marti MD Medication Refill 03/01/2025 Telephone [facility] [place] [address] [place] [address] Juan Shrestha MD 02/20/2025 Travel 02/19/2025 [facility] [place] [address] [place] [phone] Cassie Lara APRN, AIRBRUSH ARTIST TECHNICAL Medication Refill 02/18/2025 Travel 01/21/2025 [facility]ill [facility] [place] [address] [place] [address] Darwin Marti MD Medication Refill 12/07/2024 Refill [facility] [place] [address] [place] [address] Darwin Marti MD Medication Refill from [...] = 0.6 oz pur e alcohol) [facility] Utilities Answer Date Recorded In the past 12 months has [employer] electric, gas, oil, or water company threatened [...] week 08/25/2024 How often do you attend [facility] ch or yazdanism services? Never 08/25/2024 Do you belong to [...] Total Score - Questions 1-9 0 07/31 [facility] - [...] any time in the past 12 m [facility], were you homeless or living in [...] 74.4 kg (164 lb) 08/25/2024 2:18 PM BUTTER LIQUEFIER Height 162.6 cm (5' 4) 08/25/2024 2:18 PM BUTTER LIQUEFIER Body Mass Index 28.15 08/25/2024 2:18 PM BUTTER LIQUEFIER Plan of Treatment Upcoming Encounters Date Type Department Care Team (Late st Contact Info) Description 03/09/2025 2:30 PM CDT Office Visit [facility] - Family Medicine - [place] [address] [place] [address] Juan Shrestha MD [address] [address] 04/21/2025 11:00 AM CDT Office Visit [facility] - Neurology - [place] [address] [place] [address] Jessenia Ward APRN, FISH CONSERVATIONIST [address] [place] [address] Health Maintenance Due Date Last Done Comments Zoster Immunization (2 of 3) 03/24/2013 01/27/2013 Respiratory Syncytial Virus (RSV) Immunization (Adult) (1 - 1-dose 75+ series) 01/15/2023 DEXA Bone Density 08/09/2023 08/09/2021, , 04/23/2017, Additional history exists Influenza Immunization (#1) 02/27/202502/28, 07/31/2023, 04/22/2022, Additional history exists SARS-COV-2 Immunization (2024- season) 2025 07/01/2021, 11/06/2020, 10/09/2020 Pneumococcal Immunization (50+ years) [...] Immunization Discontinued Medical Devices Implanted Type Area Handkerchief Presser Device Identifier Shelf Expiration Date Model / Serial / Lot Bsplt Tib Trthln 3 Kn Prm Beaded Prpt - [id number] Implanted:Qty: 1 on 06/27/2015 by [facility]ic[facility] IM[facility] Right: Knee [employer]IS[employer]A / ORTH[employer] 01/27/2020 5526-B-30 0 / / [id number] Ins Tib 3 9mm Kn X3 Cndrl Stab Trthln - [id number] Implanted:Qty: 1 on 06/27/2015 by Benji Dickey MD at [facility] IMPLANT Right: Knee [employer] / ORTHOPAEDICS 01/27/2020 5531-G-30 9 / / [id number] Bioinductive Arthroscopic Generation 3 Medium - [id number] Implanted:Qty: 1 on 11/30/2017 by Blair Paris MD at [facility] IMPLANT Left: Shoulder Quiñones [employer] 10/27/2019 2169-2 / 2169-2 / [id number] Tendon Staple Implant - [id number] Implanted:Qty: 1 on 11/30/2017 by Blair Paris MD at [facility] IMPLANT Left: Shoulder [employer] 05/18/2018 2504-1 / 2504-1 / [id number] [place] Bone 3 W/Arthroscopic Delivery System - [id number] Implanted:Qty: 1 on 11/30/2017 by Blair [place] MD at [facility] IMPLANT Left: Shoulder [employer] 06/30/2018 2503-A / 2503-A / [id number] Asym Metal Backed Patella Implanted:Qty: 1 on 06/27/2015 by Benji Dickey MD at [facility] Right: Knee [employer] / ORTHOPAEDICS 11/26/2019 [id number] / / [id number] Cruciate Retaining Femoral Implanted:Qty: 1 on 06/27/2015 by Benji Dickey MD at [facility] Right: Knee [employer]ELA / ORTHOPAEDICS 04/03/2020 / / [id number] Procedures Procedure Name Priority Date/Time Associated Diagnosis Comments XR - SPINE 02/17/2025 12:00 AM CDT NEUROSURGY CONSULT 01/25/2025 12 :00 AM CDT [...] HEPATITIS C ANTIBODY Routine 07/31/2023 1:37 PM BUTTER LIQUEFIER Encounter for hepatitis C screening test for low risk patient [facility] BONE DENSITOMETRY AXIAL SKELETON Routine 08/09/2021 9:35 AM BUTTER LIQUEFIER Postmenopausal [facility] DIAG BILATERAL DIGITAL W CAD W BRI Routine 03/08/2020 11:00 AM CDT Encounter for screening mammogram for breast cancer Abnormal mammogram HM COLONOSCOPY Routine 07/22/2012 from Last 3 Months or Most Recently Relevant to Health Maintenance Results * XR - SPINE (02/17/2025 12:00 AM CDT) Only the most recent of2 resultswithin the time period is included. 02/17/2025 us Provider Scan IMG DIAGNOSTIC ORDERABLES Final Result Performing Organization Address [facility]/ZIP Co de Phone Number SCAN * NEUROSURGY CONSULT (01/25/2025 12:00 AM CDT) 01/25/2025 us Provider Scan GENERIC SCAN ORDERS CONSULT Sindhu l Result Performing Organization Address [facility]/ZIP Co de Phone Number SCAN * NEUROSURGERY PROCEDURE (01/10/2025 12:00 AM CDT) 01/10/2025 us Provider Scan GEN ORDERS Final Result Performing Organization Address [facility]/ZIP Co de Phone Number SCAN * URINALYSIS (UA) RANDOM (12/29/2024 12:00 AM CDT) 12/29/2024 us Provider Scan URINE ORDERABLES Final Result Performing Organization Address [facility] de Phone Number SCAN * APTT (PTT) (12/29/2024 12:00 AM CDT) 12/29/2024 us Provider Scan HEMATOLOGY ORDERABLES Final Resu lt Performing Organization Address [facility] de Phone Number SCAN * PROTIME (PT) (PROTHROMBIN TIME) (12/29/2024 12:00 AM CDT) INR 0.9 SCAN 12/29/2024 us Provider Scan HEMATOLOGY ORDERABLES Final Resu lt Performing Organization Address [facility] de Phone Number SCAN * OUTPATIENT ABO & RH W/ ANTIBODY SCREEN (12/29/2024 12:00 AM CDT) 12/29/2024 us Provider Scan BLOOD BANK ORDERABLES Final Resu lt Performing Organization Address [facility] Phone Number SCAN * CULTURE, URINE (12/29/2024 12:00 AM CDT) 12/29/2024 us Provider Scan MICROBIOLOGY - GENERAL ORDERABLE S Final Result Performing Organization [facility] de Phone Number SCAN * COMPLETE BLOOD COUNT (CBC) WITH DIFF (12/29/2024 12:00 AM CDT) 12/29/2024 us Provider Scan HEMATOLOGY ORDERABLES Final Resu lt Performing Organization Address [facility] de Phone Number SCAN * BASIC METABOLIC PANEL W/ CALCIUM TOTAL (12/29/2024 12:00 AM CDT) 12/29/2024 us Provider Scan CHEMISTRY ORDERABLES Final Resul t Performing Organization Address [facility] Co de Phone Number SCAN * Stool, Occult Blood, Diagnostic (09/26/2023 11:05 AM CDT) OCCULT BLOOD DIAG Negative Negative 09/26/2023 11:15 AM CDT [facility] Stool STOOL SPECIMEN / Unknown Non-Phlebotomy Collection / Unknown 09/26/2023 11:05 AM CDT 09/26/2023 11:12 AM CDT us Roque Sewell Elsa DIRECTOR CLIENT, AIRBRUSH ARTIST TECHNICAL BODY FLUIDS & STOOLS OR DERABLES Final Result Performing Organization Address [facility] de Phone Number [facility] [address] [place] [address] * HEPATITIS C ANTIBODY (07/31/2023 1:37 PM BUTTER LIQUEFIER) Pathologist [facility] hepatitis C antibody 0.06 <1 S/CO [facility] ARCH [id number] 07/31/2023 9:41 PM BUTTER LIQUEFIER [facility] Comment: Signal/Cutoff ratio < 0.79 is Nondetected Signal/Cutoff ratio 0.80-0.99 is Grayzone Signal/Cutoff ratio > 0.99 is Detected Supplemental assays are recommended if signal/cutoff ratio is >/=1.00. Signal/cutoff ratio result >/= 5.00 is 97% predictive of positivity for recombinant immunoblot assay (RIBA) and will be reported to the [place] Department of Public Health as required. Blood Venipuncture / Unknown 07/31/2023 1:37 PM BUTTER LIQUEFIER 07/31/2023 1:37 PM BUTTER LIQUEFIER us Darwin Marti MD CHEMISTRY ORDERABLES Sindhu l Result Performing Organization Address [facility] Co de Phone Number [facility] [address] [place] [address], [place] * [facility] BONE DENSITOMETRY AXIAL SKELETON (08/09/2021 9:35 AM BUTTER LIQUEFIER) Anatomical Region Laterality Modality BODY N/A Other 08/09/2021 10:0 9 AM BUTTER LIQUEFIER Impressions 08/09/2021 10:12 AM BUTTER LIQUEFIER IMPRESSION: Low bone mass Fracture risk assessment [...] of Osteoporosis (http://www.nof.org/professionals/clinical-guidelines) Narrative 08/09/2021 10:12 AM BUTTER LIQUEFIER EXAM DESCRIPTION: [facility] BONE DENSITOMETRY AXIAL SKELETON REASON FOR STUDY: 71 y/o year old F with given history of screening. Handkerchief Presser/Model: [employer] (S/N [id number]) CLINICAL INFORMATION: Current height: 5 foot 3.5 [...] Blair Alcaraz M.D. AG: RHIANNON Report ID: [id number] Reading Location: [place] [address] Procedure Note Blair Alcaraz MD - 08/09/2021 EXAM DESCRIPTION: [facility] BONE DENSITOMETRY AXIAL SKELETON REASON FOR STUDY: 71 y/o year old F with given history of screening. Handkerchief Presser/Model: [employer] (S/N [id number]) CLINICAL INFORMATION: Current height: 5 foot 3.5 [...] Blair Alcaraz M.D. AG: RHIANNON Report ID: [id number] Reading Location: [place] [address] IMPRESSION: Low bone mass Fracture risk assessment [...] to exams dated: 02/18/2018, 09/25/2016, and 04/25/2014 [facility]. BREAST TISSUE:The tissue of both breasts is [...] signed by: Gracie Patel M.D. ll/:03/08/2020 11:16:23 [facility] [employer]: Landy Vance)(Mag), [facility] letter sent: Normal Exam Reading location: [facility] OVERALL STUDY BIRADS: 1 Negative Procedure [...] to exams dated: 02/18/2018, 09/25/2016, and 04/25/2014 [facility]. BREAST TISSUE:The tissue of both breasts is [...] signed by: Gracie Patel M.D. ll/:03/08/2020 11:16:23 [employer] [employer]: Landy Vance)(M), [facility] letter sent: Normal Exam Reading location: [facility] OVERALL STUDY BIRADS: 1 Negative us Luann Cox MD IMG MAMMO ORDERABLES Final R esult * HM COLONOSCOPY (07/22/2012) us Any Lewis MD PROCEDURE/MINOR SURGIC AL ORDERABLES Final Result from Last 3 Months or Most Recently Relevant to Health Maintenance Insurance MEDICARE [facility] Advance Directives Documents on File Type Date Recorded Patient Yard Conductor Expl anation POLST/POST/NE DNR 08/19/2018 9:34 AM polst 08/18/2018 Power of Vulcanizer Rubber Plate for Health Care 08/18/2018 1:08 PM POA-HC [...] measures to stabilize the patient. Care Teams Wet Roaster Relationship Specialty [place] [address] [place] [address] PCP - General Internal Medicine 07/31/23 Blair Paris MD [address] [place] [address], [address] [place] [address] Consulting Physician Orthopaedic Sports Medicine 07/31/23 Hao Silvestre MD [address] [place] [address] Consulting Physician Neurological Surgery 07/31/23 Carlos Dailey MD #[address] [address] Consulting Physician Colon and Rectal Surgery 10/26/23 Saida Mckeon APRN, AIRBRUSH ARTIST TECHNICAL [address] [place] [address] Nurse Practitioner Gastroenterology 10/26/23 Jessenia Ward, DIRECTOR CLIENT, FISH CONSERVATIONIST [address] [place] [address] Nurse Practitioner Neurology 11/17/23 Dominic Wang MD [address] [place] [address] Consulting Physician Pain Medicine-Pain Management 02/09/24 Butch Muñiz MD [address] [place] [phone] Consulting Physician Neurology 02/23/24
--- OUTSIDE RECORDS SUMMARY | 2025-03-06 12:46 | XMS_ITS | Encounter Summary ---
Author Organization [facility] Address [address] [place] [address] Phone Care Team Providers Care Seo Strategist Name Role Phone Blair Paris MD Unavailable [phone] Jose A Espinosa MD Unavailable [phone] Darwin Marti MD Primary Care Provider [phone] Hao Silvestre MD Unavailable [phone] Carlos Dailey MD Unavailable Saida Mckeon APRN, APPLICATIONS SYSTEMS ENGINEER Unavailable Jessenia Ward APRN, [facility] Unavailable + [phone] Hao Silvestre MD Unavailable [phone] Dominic Wang MD Unavailable [phone] Butch Muñiz MD Unavailable Reason for Visit * Reason Comments Medication Refill Encounter Details Date Type Department Care Team (Late Contact Info) Description [facility] [place] [address] [place] [phone] Josiane Pacheco MD [address] [place] [address] Medication Refill Social History Tobacco Use Types [...] Description 03/09/2025 2:30 PM CDT Office Visit [facility] - Family Medicine [facility] [address] [place] [address] Juan Shrestha MD [address] [address] 04/21/2025 11:00 AM CDT Office Visit [facility] Neurology [facility] [address] [place] [phone] Jessenia Ward, LEGAL ADMINISTRATIVE SECRETARY, STRINGING MACHINE OPERATOR [address] [place] [address] documented as of this encounter Visit Diagnoses [...] Depression Total Score: 0 07/31/19 12:53 PM FRENCH COMBER documented as of this encounter Care Teams Seo Strategist Relationship Specialty Start Date End Date Darwin Marti MD [address] [place] [address] PCP - General Internal Medicine 07/31/23 Blair Paris MD 4 [facility] [address] [place] [address] Consulting Physician Orthopaedic Sports Medicine 07/31/23 Jose A Espinosa MD 2 [facility] [address] [place] [address] Consulting Physician Pain Medicine-Pain Management 07/31/23 02/08/24 Hao Silvestre MD [address] [place] [address] Consulting Physician Neurological Surgery 07/31/23 Carlos Dailey MD [address] [address] [address] Consulting Physician Colon and Rectal Surgery 10/26/23 Saida Mckeon APRN, APPLICATIONS SYSTEMS ENGINEER [address] [place] [address] Nurse Practitioner Gastroenterology 10/26/23 Jessenia Ward APRN, STRINGING MACHINE OPERATOR [address] [place] [address] Nurse Practitioner Neurology 11/17/23 Hao Silvestre MD [address] [place] [address] Consulting Physician Neurological Surgery 02/09/2401/27 Dominic Wang MD [address] [place] [address] Consulting Physician Pain Medicine-Pain Management 02/09/24 Butch Muñiz MD [address] [place] [address] Consulting Physician Neurology 02/23/24 documented as of this encounter
--- OUTSIDE RECORDS SUMMARY | 2025-03-06 12:46 | XMS_ITS | Encounter Summary ---
Author Organization [facility] Address [address] [place] [address] Phone Care Team Providers Care Infant And Toddler Teacher Name Role Phone Luann Cox MD Primary Care Provider + [phone] Josiane Pacheco MD Primary Care Provider + [phone] Blair Paris MD Unavailable [phone] Jose A Espinosa MD Unavailable [phone] Darwin Marti MD Primary Care Provider [phone] Hao Silvestre MD Unavailable [phone] Carlos Dailey MD Unavailable Saida Mckeon APRN, PAPER REELER Unavailable Jessenia Ward APRN, ACCOUNTANT COST Unavailable +[phone] Hao Silvestre MD Unavailable [phone] Dominic Wang MD Unavailable [phone] Butch Muñiz MD Unavailable [phone] Reason for Visit * Reason Comments Medication Refill Encounter Details Date Type Department Care Team (Late st Contact Info) Description 11/29/2021 Refill [facility] - Primary Care - [place] [address] [place] [address] Luann Cox MD [address] [place] [address] Medication Refill Social History Tobacco [...] Dept 06/27/21 Office Visit Luann Cox MD [facility] 03/07/21 Office Visit Luann Cox MD [facility] Showing recent visits within past 365 days and meeting all other requirements Future Appointments Date Type Provider Dept 12/10/21 Appointment Lab, [facility] 12/16/21 Appointment Luann Cox MD [facility] Showing future appointments within next 90 [...] Dept 06/27/21 Office Visit [facility]21 Office Visit Luann Cox MD [facility] Showing recent visits within past 365 days and meeting all other requirements Future Appointments Date Type Provider Dept 12/10/21 Appointment [facility] 12/16/21 Appointment Luann Cox MD [facility] Showing future appointments within next 90 days and meeting all other requirements Passed - GFR on record in past 12 months GFR, EST. NONAFRICAN Date Value Ref Range Status 10/14/2021 >60 >=60 Final documented in this encounter Plan of Treatment Upcoming Encounters Date Type Department Care Team (Late st Contact Info) Description 03/09/2025 2:30 PM CDT Office Visit [facility] - Family Medicine [facility] [address] [place] [address] Juan Shrestha MD #[address] [address] 04/21/2025 11:00 AM CDT Office Visit [facility] - Neurology [facility] [address] [place] [address] Jessenia Ward APRN, ACCOUNTANT COST [address] [place] [address] documented as of this encounter Visit Diagnoses Diagnosis Essential hypertension Unspecified essential hypertension documented in this encounter Additional Health Concerns Infection Onset Date Last Indicated Resolved Time ESBL 08/16/2018 08/16/2018 09/28/2023 9:03 AM CDT COVID - 19 03/09/2023 03/09/2023 03/19/2023 12:1 6 AM CDT Respiratory Rule-Out 03/09/2023 03/09/2023 023 2:09 AM CDT COVID - 19 05/07/2023 05/07/2023 05/07/2023 9:50 AM CLOTH PATTERN MAKER COVID - 19 Confirmed 05/07/2023 05/07/2023 023 12:16 AM CLOTH PATTERN MAKER C. difficile Rule-Out 09/24/2023 09/24/20232023 3:41 PM CDT COVID - 19 09/24/2023 09/24/2023 09/24/2023 11:3 2 AM CDT C. difficile Rule-Out 09/27/2023 09/27/20232023 2:13 PM CDT COVID - 19 02/23/2024 02/23/2024 02/23/2024 11:2 8 AM CDT Respiratory Rule-Out 02/23/2024 02/23/2024 024 11:30 AM CDT Assessment Noted Time PHQ-9 Depression Total Score: 2 07/14/19 20 10:00 AM CLOTH PATTERN MAKER documented as of this encounter Care Teams Infant And Toddler Teacher Relationship Specialty Start Date End Date Luann Cox MD PCP - General Family Medicine 04/15/15 11/02/22 Josiane Pacheco MD [address] [place] [address] PCP - General Family Medicine 11/20/22 07/30/23 Darwin Marti MD [address] [place] [address] PCP - General Internal Medicine 07/31/23 Blair Paris MD [address] [place] [address], [address] [address] Consulting Physician Orthopaedic Sports Medicine 07/31/23 Jose A Espinosa MD [address] [address] Consulting Physician Pain Medicine-Pain Management 07/31/23 02/08/24 Hao Silvestre MD [address] [address] Consulting Physician Neurological Surgery 07/31/23 Carlos Dailey MD #[address] [address] Consulting Physician Colon and Rectal Surgery 10/26/23 Saida Mckeon APRN, PAPER REELER [address] [place] [address] Nurse Practitioner Gastroenterology 10/26/23 Jessenia Ward APRN, ACCOUNTANT COST [address] [place] [address] Nurse Practitioner Neurology 11/17/23 Hao Silvestre MD [address] [address] Consulting Physician Neurological Surgery 02/09/2401/27 Dominic Wang MD #[address] [place] [address] Consulting Physician Pain Medicine-Pain Management 02/09/24 Butch Muñiz MD #[address] [place] [address] Consulting Physician Neurology 02/23/24 documented as of this encounter
--- OUTSIDE RECORDS SUMMARY | 2025-03-06 12:46 | XMS_ITS | Encounter Summary ---
Author Organization [facility] Address [address] [place] [address] Phone Care Team Providers Care Rivet Bucker Name Role Phone Luann Cox MD Primary Care Provider + [phone] Josiane Pacheco MD Primary Care Provider + [phone] Blair Paris MD Unavailable +[phone] Jose A Espinosa MD Unavailable +[phone] Darwin Marti MD Primary Care Provider +[phone] Hao Silvestre MD Unavailable +[phone] Carlos Dailey MD Unavailable Saida Mckeon APRN, ARCHEOLOGIST CLASSICAL Unavailable Jessenia Ward APRN, SWIFT TENDER Unavailable + [phone] Hao Silvestre MD Unavailable +[phone] Dominic Wang MD Unavailable [phone] Butch Muñiz MD Unavailable +[phone] Reason for Visit * Reason Comments Medication Refill Encounter Details Date Type Department Care Team (Late st Contact Info) Description 04/29/2022 Refill [facility] - Primary Care - [place] [address] [place] [address] Luann Cox MD [address] [place] [address] Medication Refill Social History Tobacco [...] Dept 12/16/21 Office Visit [facility] 06/27/21 Office Visit Luann Cox MD [facility] [employer] [facility] Showing recent visits within past 365 days and meeting all other requirements Future Appointments Date Type Provider Dept 05/23/22 Appointment Lab, [place] [facility] [employer] [facility] 05/29/22 Appointment Luann Cox MD [facility] [employer] [facility] Showing future appointments within next 90 days [...] Dept 12/16/21 Office Visit Luann Cox MD [facility] [employer] [facility] 06/27/21 Office Visit Luann Cox MD [facility] [employer] [facility] Showing recent visits within past 365 days and meeting all other requirements Future Appointments Date Type Provider Dept 05/23/22 Appointment Lab, [place] [facility] [employer] [facility] 05/29/22 Appointment Luann Cox MD [facility] [employer] [facility] Showing future appointments within next 90 days [...] Dept 12/16/21 Office Visit Luann Cox MD [facility] 06/27/21 Office Visit Luann Cox MD [facility] Showing recent visits within past 365 days and meeting all other requirements Future Appointments Date Type Provider Dept 05/23/22 Appointment Lab, [place] [facility] 05/29/22 Appointment Luann Cox MD [facility] Showing future appointments within next 90 days [...] Dept 12/16/21 Office Visit Luann Cox MD [facility] 06/27/21 Office Visit Luann Cox MD [facility] Showing recent visits within past 365 days and meeting all other requirements Future Appointments Date Type Provider Dept 05/23/22 Appointment Lab, [place] [facility] 05/29/22 Appointment Luann Cox MD [facility] [address] Showing future appointments within next 90 days and meeting all other requirements documented in this encounter Plan of Treatment Upcoming Encounters Date Type Department Care Team (Late st Contact Info) Description 03/09/2025 2:30 PM CDT Office Visit [facility] Medical [facility] - Family Medicine - [place] [address] [place] [address] Juan Shrestha MD #[address] [address] 04/21/2025 11:00 AM CDT Office Visit [facility] Neurology [facility] [address] [place] [address] Jessenia Ward APRN, SWIFT TENDER [address] [place] [address] documented as of this encounter Visit Diagnoses [...] - 19 05/07/2023 05/07/2023 05/07/2023 9:50 AM VOCATIONAL COORDINATOR COVID - 19 Confirmed 05/07/2023 05/07/2023 023 12:16 AM VOCATIONAL COORDINATOR C. difficile Rule-Out 09/24/2023 09/24/20232023 3:41 PM CDT COVID - 19 09/24/2023 09/24/2023 09/24/2023 11:3 2 AM CDT C. difficile Rule-Out 09/27/2023 09/27/20232023 2:13 PM CDT COVID - 19 02/23/2024 02/23/2024 02/23/2024 11:2 8 AM CDT Respiratory Rule-Out 02/23/2024 02/23/2024 024 11:30 AM CDT Assessment Noted Time PHQ-9 Depression Total Score: 2 07/14/19 20 10:00 AM VOCATIONAL COORDINATOR documented as of this encounter Care Teams Rivet Bucker Relationship Specialty Start Date End Date Luann Cox MD PCP - General Family Medicine 04/15/15 11/02/22 Josaine Pacheco MD [address] [place] [address] PCP - General Family Medicine 11/20/22 07/30/23 Darwin Marti MD [address] [place] [address] PCP - General Internal Medicine 07/31/23 Blair Paris MD 4 [facility] [address] [place] [address] Consulting Physician Orthopaedic Sports Medicine 07/31/23 Jose A Espinosa MD 2 [facility] [address] [place] [address] Consulting Physician Pain Medicine-Pain Management 07/31/23 02/08/24 Hao Silvestre MD [address] [address] Consulting Physician Neurological Surgery 07/31/23 Carlos Dailey MD #2 [facility] [address] [place] [address] Consulting Physician Colon and Rectal Surgery 10/26/23 Saida Mckeon APRN, [facility] [address] [place] [address] Nurse Practitioner Gastroenterology 10/26/23 Jessenia Ward APRN, [facility] [address] [place] [address] Nurse Practitioner Neurology 11/17/23 Hao Silvestre MD [address] [address] Consulting Physician Neurological Surgery 02/09/2401/27 Dominic Wang MD #2 [place] [address] Consulting Physician Pain Medicine-Pain Management 02/09/24 Butch Muñiz MD #2 [place] [address] Consulting Physician Neurology 02/23/24 documented as of this encounter
--- OUTSIDE RECORDS SUMMARY | 2025-03-06 12:46 | XMS_ITS | Encounter Summary ---
Author Organization [facility] Address [address] [place] [address] Phone Care Team Providers Care Injection Moulding Machine Operator Name Role Phone Luann Cox MD Primary Care Provider + [phone] Josiane Pacheco MD Primary Care Provider + [phone] Blair Paris MD Unavailable [phone] Jose A Espinosa MD Unavailable +[phone] Darwin Marti MD Primary Care Provider [phone] Hao Silvestre MD Unavailable +[phone] Carlos Dailey MD Unavailable Saida Mckeon APRN, BOARD DESIGN ENGINEER Unavailable Jessenia Ward APRN, TEMP RECRUITER Unavailable +- [phone] Hao Silvestre MD Unavailable [phone] Dominic Wang MD Unavailable [phone] Butch Muñiz MD Unavailable +[phone] Reason for Visit * Reason Comments Medication Refill Encounter Details Date Type Department Care Team (Late st Contact Info) Description 03/01/2022 Refill [facility] - Primary Care - [place] [address] [place] [address] Luann Cox MD [address] [place] [address] Medication Refill Social History Tobacco [...] Dept 12/16/21 Office Visit Luann Cox MD [facility] [employer] 06/27/21 Office Visit Luann Cox MD [facility] [employer] 03/07/21 Office Visit Luann Cox MD [facility] [employer] Showing recent visits within past 365 days and meeting all other requirements Future Appointments Date Type Provider Dept 05/23/22 Appointment [place] [facility] 05/29/22 Appointment Luann Cox MD [facility] Showing future appointments within next 90 days [...] Dept 12/16/21 Office Visit Luann Cox MD [facility] [employer] 06/27/21 Office Visit Luann Cox MD [facility] 03/07/21 Office Visit Luann Cox MD [facility] [employer] Showing recent visits within past 365 days and meeting all other requirements Future Appointments Date Type Provider Dept 05/23/22 Appointment Lab, [place] [facility] 05/29/22 Appointment Luann Cox MD [facility] Showing future appointments within next 90 days and meeting all other requirements documented in this encounter Plan of Treatment Upcoming Encounters Date Type Department Care Team (Late st Contact Info) Description 03/09/2025 2:30 PM CDT Office Visit [facility] Medical [facility] - Family Medicine [facility] [address] [place] [address] Juan Shrestha MD #[address] [address] 04/21/2025 11:00 AM CDT Office Visit [facility] - Neurology [facility] [address] [place] [address] Jessenia Ward APRN, TEMP RECRUITER [address] [place] [address] documented as of this encounter Visit Diagnoses Diagnosis Neuropathy Mononeuritis of unspecified site documented in this encounter Additional Health Concerns Infection Onset Date Last Indicated Resolved Time ESBL 08/16/2018 08/16/2018 09/28/2023 9:03 AM CDT COVID - 19 03/09/2023 03/09/2023 03/19/2023 12:1 6 AM CDT Respiratory Rule-Out 03/09/2023 03/09/2023 023 2:09 AM CDT COVID - 19 05/07/2023 05/07/2023 05/07/2023 9:50 AM GUEST REQUEST RUNNER COVID - 19 Confirmed 05/07/2023 05/07/2023 023 12:16 AM GUEST REQUEST RUNNER C. difficile Rule-Out 09/24/2023 09/24/20232023 3:41 PM CDT COVID - 19 09/24/2023 09/24/202309/2309/24/2023 11:3 2 AM CDT C. difficile Rule-Out 09/27/2023 09/27/20232023 2:13 PM CDT COVID - 19 02/23/2024 02/23/2024 02/23/2024 11:2 8 AM CDT Respiratory Rule-Out 02/23/2024 02/23/2024 024 11:30 AM CDT Assessment Noted Time PHQ-9 Depression Total Score: 2 07/14/19 20 10:00 AM GUEST REQUEST RUNNER documented as of this encounter Care Teams Injection Moulding Machine Operator Relationship Specialty Start Date End Date Luann Cox MD PCP - General Family Medicine 04/15/15 11/02/22 Josiane Pacheco MD [address] [place] [address] PCP - General Family Medicine 11/20/22 07/30/23 Darwin Marti MD [address] [place] [address] PCP - General Internal Medicine 07/31/23 Blair Paris MD 4 [facility] , [address] [place] [address] Consulting Physician Orthopaedic Sports Medicine 07/31/23 Jose A Espinosa MD 2 [facility] [address] [place] [address] Consulting Physician Pain Medicine-Pain Management 07/31/23 02/08/24 Hao Silvestre MD [address] [id number] Consulting Physician Neurological Surgery 07/31/23 Carlos Dailey MD #[address] [address] Consulting Physician Colon and Rectal Surgery 10/26/23 Saida Mckeon APRN, BOARD DESIGN ENGINEER #[address] [place] [address] Nurse Practitioner Gastroenterology 10/26/23 Jessenia Ward APRN, TEMP RECRUITER [address] [place] [address] Nurse Practitioner Neurology 11/17/23 Hao Silvestre MD [address] [address] Consulting Physician Neurological Surgery 02/09/2401/27 Dominic Wang MD #2 [place] [address] Consulting Physician Pain Medicine-Pain Management 02/09/24 Butch Muñiz MD #2 [place] [address] Consulting Physician Neurology 02/23/24 documented as of this encounter
--- OUTSIDE RECORDS SUMMARY | 2025-03-06 12:46 | XMS_ITS | Encounter Summary ---
Author Organization [facility] Address [address] [place] [address] Phone Care Team Providers Care Biodiesel Plant Manager Name Role Phone Luann Cox MD Primary Care Provider + [phone] Josiane Pacheco MD Primary Care Provider + [phone] Blair Paris MD Unavailable [phone] Jose A Espinosa MD Unavailable [phone] Darwin Marti MD Primary Care Provider +[phone] Hao Silvestre MD Unavailable [phone] Carlos Dailey MD Unavailable Saida Mckeon APRN, STORE MGR Unavailable Jessenia Ward APRN, CLAY DRY PRESS OPERATOR Unavailable + [phone] Hao Silvestre MD Unavailable +[phone] Dominic Wang MD Unavailable [phone] Butch Muñiz MD Unavailable [phone] Reason for Visit * Reason Comments Medication Refill Encounter Details Date Type Department Care Team (Late st Contact Info) Description 07/26/2021 Refill [facility] - Primary Care - [place] [address] [place] [id number] Luann Cox MD [address] [place] [address] Medication Refill Social History Tobacco [...] COVID-19? No / Unsure 07/01/2021 11:16 AM LOOM CHANGEOVER OPERATOR documented as of this encounter Miscellaneous Notes * Telephone Encounter - Racquel Campos RN - 07/26/2021 9:30 AM LOOM CHANGEOVER OPERATOR Medication failed the protocol, provider to [...] Dept 06/27/21 Office Visit Luann Cox MD [facility] [address] 03/07/21 Office [facility] [address] 09/06/20 Office Visit Luann Cox MD [facility] Showing recent visits within past 365 days and meeting all other requirements Future Appointments Date Type Provider Dept 10/21/21 [facility] Showing future appointments [...] Dept 06/27/21 Office Visit [facility] MD [facility] [address] 03/07/21 Office Visit Luann Cox MD [facility] [address] 09/06/20 Office Visit Luann Cox MD [facility] Showing recent visits within past 365 days and meeting all other requirements Future Appointments Date Type Provider Dept 10/21/21 [facility] Showing future appointments [...] Dept 06/27/21 Office Visit Luann Cox MD [facility] 03/07/21 Office Visit [facility] MD [facility] [place] [facility] 09/06/20 Office Visit Luann Cox MD [facility] Showing recent visits within past 365 days and meeting all other requirements Future Appointments Date Type Provider Dept 10/21/21 Appointment Lab, [facility] Showing future appointments [...] Dept 06/27/21 Office Visit Luann Cox MD [facility] [place] [facility] 03/07/21 Office Visit Luann Cox MD [facility] [place] [facility] 09/06/20 Office Visit Luann Cox MD [facility] [place] [facility] Showing recent visits within past 365 days and meeting all other requirements Future Appointments Date Type Provider Dept 10/21/21 [facility] Showing future appointments within next 90 days and meeting all other requirements CHANGEOVER OPERATOR documented in this encounter Plan of Treatment Upcoming Encounters Date Type Department Care Team (Late st Contact Info) Description 03/09/2025 2:30 PM CDT [facility] - Family Medicine - [place] [address] [place] [address] Juan Shrestha MD #[address] [address] 04/21/2025 11:00 AM CDT [facility] - [facility] - [place] [address] [place] [address] Jessenia Ward APRN, CLAY DRY PRESS OPERATOR #[address] [place] [address] documented as of this encounter Visit Diagnoses [...] - 19 05/07/2023 05/07/2023 05/07/2023 9:50 AM LOOM CHANGEOVER OPERATOR COVID - 19 Confirmed 05/07/2023 05/07/2023 023 12:16 AM LOOM CHANGEOVER OPERATOR C. difficile Rule-Out 09/24/2023 09/24/20232023 3:41 PM CDT COVID - 19 09/24/2023 09/24/2023 09/24/2023 11:3 2 AM CDT C. difficile Rule-Out 09/27/2023 09/27/20232023 2:13 PM CDT COVID - 19 02/23/2024 02/23/2024 02/23/2024 11:2 8 AM CDT Respiratory Rule-Out 02/23/2024 02/23/2024 024 11:30 AM CDT Assessment Noted Time PHQ-9 Depression Total Score: 2 07/14/19 20 10:00 AM LOOM CHANGEOVER OPERATOR documented as of this encounter Care Teams Biodiesel Plant Manager Relationship Specialty Start Date End Date Luann Cox MD PCP - General Family Medicine 04/15/15 11/02/22 Josiane Pacheco MD [address] [place] [address] PCP - General Family Medicine 11/20/22 07/30/23 Darwin Marti MD [address] [place] [address] PCP - General Internal Medicine 07/31/23 Blair Paris MD 4 [facility] [address] [place] [address] Consulting Physician Orthopaedic Sports Medicine 07/31/23 Jose A Espinosa MD 2 [facility] [address] [place] [address] Consulting Physician Pain Medicine-Pain Management 07/31/23 02/08/24 Hao Silvestre MD [address] [address] Consulting Physician Neurological Surgery 07/31/23 Carlos Dailey MD #2 [facility] [address] [place] [address] Consulting Physician Colon and Rectal Surgery 10/26/23 Saida Mckeon APRN, STORE [facility]GR [address] [place] [address] Nurse Practitioner Gastroenterology 10/26/23 Jessenia Ward APRN, [facility] #[address] [place] [address] Nurse Practitioner Neurology 11/17/23 Hao Silvestre MD [address] [address] Consulting Physician Neurological Surgery 02/09/2401/27 Dominic Wang MD #2 [place] [address] Consulting Physician Pain Medicine-Pain Management 02/09/24 Butch Muñiz MD #[address] [place] [address] Consulting Physician Neurology 02/23/24 documented as of this encounter
--- OUTSIDE RECORDS SUMMARY | 2025-03-06 12:46 | XMS_ITS | Encounter Summary ---
Author Organization [facility] Address [address] [place] [address] Phone Care Team Providers Care Rn Research Name Role Phone Blair Paris MD Unavailable +[phone] Jose A Espinosa MD Unavailable [phone] Darwin Marti MD Primary Care Provider +[phone] Hao Silvestre MD Unavailable +[phone] Carlos Dailey MD Unavailable Saida Mckeon APRN, STATIONARY ENGINEER SUPERVISOR Unavailable Jessenia Ward APRN, [facility] Unavailable + [phone] Hao Silvestre MD Unavailable [phone] Dominic Wang MD Unavailable [phone] Butch Muñiz MD Unavailable [phone] Reason for Visit * Reason Comments Medication Refill Encounter Details Date Type Department Care Team (Late st Contact Info) Description 11/13/[address] [facility] - Primary Care - [place] [address] [place] [address] Darwin Marti MD [address] [place] [address] Medication Refill Social History Tobacco Use Types Packs/Day Years Used Date Smoking Tobacco: Former Cigarettes 2 41.8 1 964 - 04/09/2005 Smokeless Tobacco: Never Alcohol Use Standard Drinks/Week Comments No 0 (1 standard drink = 0.6 oz pur e alcohol) [facility] Utilities Answer Date Recorded In the past 12 months has [employer], gas, oil, or water [employer] threatened to shut off services in your [...] any clubs o r organizations such as pentecostalism groups, unions, fraternal or athletic groups, or [...] Answer Date Recorded PHQ-2 Score 2 07/14/2019 [facility] - Occupational Stress Questionnaire Answer Date [...] place to sleep or slept in a nursing home (including now)? No 09/26/2023 Sexually Active [...] AM CDT Medication(s) [facility] Medication Refill Standing Order [...] Dept 10/14/23 Office Visit Darwin Marti MD [facility] 10/05/23 Office Visit Cassie Lara APRN, [facility] 07/31/23 Office Visit Darwin Marti MD [facility] 01/29/23 Office Visit Josiane Pacheco MD [facility] Showing recent visits within past 365 days and meeting all other requirements Future Appointments Date Type Provider Dept 02/09/24 Appointment Darwin Marti MD [facility] Showing future appointments within next 90 days and meeting all other requirements Passed - Normal TSH in past 12 months TSH Date Value Ref Range Status 07/31/2023 1.805 0.300 - 5.000 mIU/L Final documented in this encounter Plan of Treatment Upcoming Encounters Date Type Department Care Team (Late st Contact Info) Description 03/09/2025 2:30 PM CDT Office Visit [facility] - Family Medicine [facility] [address] [place] [address] Juan Shrestha MD [address] [address] 04/21/2025 11:00 AM CDT Office Visit [facility] - Neurology - [place] [address] [place] [address] Jessenia Ward, LOGGING EQUIPMENT MECHANIC, POULTRY HELPER [address] [facility] [place] [address] documented as of this encounter Visit Diagnoses Diagnosis Hypothyroidism (acquired) Unspecified hypothyroidism documented in this encounter Additional Health Concerns Infection Onset Date Last Indicated Resolved Time COVID - 19 02/23/2024 02/23/2024 02/23/2024 11:2 8 AM CDT Respiratory Rule-Out 02/23/2024 02/23/2024 024 11:30 AM CDT Assessment Noted Time PHQ-9 Depression Total Score: 0 07/31/19 12:53 PM RETAIL RESET MERCHANDISER documented as of this encounter Care Teams Rn Research Relationship Specialty Start Date End Date Darwin Marti MD [address] [place] [address] PCP - General Internal Medicine 07/31/23 Blair Parsi MD 4 [facility] [address] [place] [address] Consulting Physician Orthopaedic Sports Medicine 07/31/23 Jose A Espinosa MD 2 [facility] [address] [place] [address] Consulting Physician Pain Medicine-Pain Management 07/31/23 02/08/24 Hao Silvestre MD [address] [address] Consulting Physician Neurological Surgery 07/31/23 Carlos Dailey MD #2 [facility] [address] [place] [address] Consulting Physician Colon and Rectal Surgery 10/26/23 Saida Mckeon APRN, [facility] #2 [place] [address] Nurse Practitioner Gastroenterology 10/26/23 Jessenia Ward APRN, [facility] #2 [place] [address] Nurse Practitioner Neurology 11/17/23 Hao Silvestre MD [address] [address] Consulting Physician Neurological Surgery 02/09/2401/27 Dominic Wang MD #2 [place] [address] Consulting Physician Pain Medicine-Pain Management 02/09/24 Butch Muñiz MD #2 [place] [address] Consulting Physician Neurology 02/23/24 documented as of this encounter
--- OUTSIDE RECORDS SUMMARY | 2025-03-06 12:46 | XMS_ITS | Encounter Summary ---
Author Organization [facility] Address [address] [place] [address] Phone Care Team Providers Care Mussel Opener Name Role Phone Blair Paris MD Unavailable +[phone] Jose A Espinosa MD Unavailable [phone] Darwin Marti MD Primary Care Provider [phone] Hao Silvestre MD Unavailable [phone] Carlos Dailey MD Unavailable Saida Mckeon APRN, AMMUNITION ASSEMBLY II LABORER Unavailable Jessenia Ward APRN, [facility] Unavailable + [phone] Hao Silvestre MD Unavailable +[phone] Dominic Wang MD Unavailable [phone] Butch Muñiz MD Unavailable [phone] Reason for Visit * Reason Comments Medication Refill Encounter Details Date Type Department Care Team (Late st Contact Info) Description 10/29/2023 Refill [facility] - [facility] [address] [place] [address] Darwin Marti MD [address] [place] [address] Medication Refill Social History Tobacco Use Types Packs/Day Years Used Date Smoking Tobacco: Former Cigarettes 2 41.8 1 964 - 04/09/2005 Smokeless Tobacco: Never Alcohol Use Standard Drinks/Week Comments No 0 (1 standard drink = 0.6 oz pur e alcohol) [facility] Utilities Answer Date Recorded In the past 12 months has [employer], gas, oil, or water [employer] threatened to shut off services in your [...] Answer Date Recorded PHQ-2 Score 2 07/14/2019 [facility] - Occupational Stress [...] Description 03/09/2025 2:30 PM CDT Office Visit [facility] Family Medicine [facility] #2 [place] [address] Juan Shrestha MD #[address] [address] 04/21/2025 11:00 AM CDT Office Visit [facility] Neurology [facility] #2 [facility] [place] [address] Jessenia Ward, MANAGEMENT EXPERT, MANUFACTURER'S SERVICE REPRESENTATIVE #2 [place] [address] documented as of this encounter Visit Diagnoses Not on filedocumented in this encounter Additional Health Concerns Infection Onset Date Last Indicated Resolved Time COVID - 19 02/23/2024 02/23/2024 02/23/2024 11:2 8 AM CDT Respiratory Rule-Out 02/23/2024 02/23/2024 024 11:30 AM CDT Assessment Noted Time PHQ-9 Depression Total Score: 0 07/31/19 24 12:53 PM SKIP LOADER documented as of this encounter Care Teams Mussel Opener Relationship Specialty Start Date End Date Darwin Marti MD [address] [place] [address] PCP - General Internal Medicine 07/31/23 Blair Paris MD [address] [place] [address], [address] [place] [address] Consulting Physician Orthopaedic Sports Medicine 07/31/23 Jose A Espinosa MD 2 [facility] [address] [place] [address] Consulting Physician Pain Medicine-Pain Management 07/31/23 02/08/24 Hao Silvestre MD [address] [address] Consulting Physician Neurological Surgery 07/31/23 Carlos Dailey MD #[address] [address] Consulting Physician Colon and Rectal Surgery 10/26/23 Saida Mckeon APRN, AMMUNITION ASSEMBLY II LABORER #2 [place] [address] Nurse Practitioner Gastroenterology 10/26/23 Jessenia Ward APRN, MANUFACTURER'S SERVICE REPRESENTATIVE #2 [place] [address] Nurse Practitioner Neurology 11/17/23 Hao Silvestre MD [address] [address] Consulting Physician Neurological Surgery 02/09/2401/27 Dominic Wang MD #2 [place] [address] Consulting Physician Pain Medicine-Pain Management 02/09/24 Butch Muñiz MD #2 [place] [address] Consulting Physician Neurology 02/23/24 documented as of this encounter
--- OUTSIDE RECORDS SUMMARY | 2025-03-06 12:46 | XMS_ITS | Encounter Summary ---
Author Organization [facility] Address [address] [place] [address] Phone Care Team Providers Care Desulfurizer Machine Name Role Phone Luann Cox MD Primary Care Provider + [phone] Josiane Pacheco MD Primary Care Provider + [phone] Blair Paris MD Unavailable [phone] Jose A Espinosa MD Unavailable [phone] Darwin Marti MD Primary Care Provider [phone] Hao Silvestre MD Unavailable +[phone] Carlos Dailey MD Unavailable Saida Mckeon APRN, LAW ENFORCEMENT OFFICER Unavailable Jessenia Ward APRN, PRODUCTION DIRECTOR Unavailable +- [phone] Hao Silvestre MD Unavailable +[phone] Dominic Wang MD Unavailable [phone] Butch Muñiz MD Unavailable +[phone] Reason for Visit * Reason Comments Medication Refill Encounter Details Date Type Department Care Team ([facility] Contact Info) Description 12/12/2021 Refill [facility] [address] [place] [address] Luann Cox MD [address] [place] [address] Medication Refill Social History Tobacco [...] Care Team ([facility] Contact Info) Description 03/09/2025 2:30 PM CDT Office Visit [facility] [place] [address] Juan Shrestha MD [address] [address] 04/21/2025 11:00 AM CDT [facility] - Neurology - [place] [address] [place] [address] Jessenia Ward, CONDUCTOR SLEEPING CAR, PRODUCTION DIRECTOR #2 [place] [address] documented as of this encounter Visit Diagnoses Diagnosis Essential hypertension Unspecified essential hypertension documented in this encounter Additional Health Concerns Infection Onset Date Last Indicated Resolved Time ESBL 08/16/2018 08/16/2018 09/28/2023 9:03 AM CDT COVID - 19 03/09/2023 03/09/2023 03/19/2023 12:1 6 AM CDT Respiratory Rule-Out 03/09/2023 03/09/2023 023 2:09 AM CDT COVID - 19 05/07/2023 05/07/2023 05/07/2023 9:50 AM RESEARCH AGRICULTURAL ENGINEER COVID - 19 Confirmed 05/07/2023 05/07/2023 023 12:16 AM RESEARCH AGRICULTURAL ENGINEER C. difficile Rule-Out 09/24/2023 09/24/20232023 3:41 PM CDT COVID - 19 09/24/2023 09/24/2023 09/24/2023 11:3 2 AM CDT C. difficile Rule-Out 09/27/2023 09/27/20232023 2:13 PM CDT COVID - 19 02/23/2024 02/23/2024 02/23/2024 11:2 8 AM CDT Respiratory Rule-Out 02/23/2024 02/23/2024 024 11:30 AM CDT Assessment Noted Time PHQ-9 Depression Total Score: 2 01/16/20 20 10:00 AM RESEARCH AGRICULTURAL ENGINEER documented as of this encounter Care Teams Desulfurizer Machine Relationship Specialty Start Date End Date Luann Cox MD PCP - General Family Medicine 04/15/15 11/02/22 Josiane Pacheco MD [address] [place] [address] PCP - General Family Medicine 11/20/22 07/30/23 Darwin Marti MD [address] [place] [address] PCP - General Internal Medicine 07/31/23 Blair Paris MD 4 [facility] [address] [place] [address] Consulting Physician Orthopaedic Sports Medicine 07/31/23 Jose A Espinosa MD [address] [address] Consulting Physician Pain Medicine-Pain Management 07/31/23 02/08/24 Hao Silvestre MD [address] [address] Consulting Physician Neurological Surgery 07/31/23 Carlos Dailey MD #[address] [address] Consulting Physician Colon and Rectal Surgery 10/26/23 Saida Mckeon APRN, LAW ENFORCEMENT OFFICER #2 [place] [address] Nurse Practitioner Gastroenterology 10/26/23 Jessenia Ward APRN, PRODUCTION DIRECTOR #2 [place] [address] Nurse Practitioner Neurology 11/17/23 Hao Silvestre MD [address] [address] Consulting Physician Neurological Surgery 02/09/2401/27 Dominic Wang MD #2 [place] [address] Consulting Physician Pain Medicine-Pain Management 02/09/24 Butch Muñiz MD #2 [place] [address] Consulting Physician Neurology 02/23/24 documented as of this encounter
--- OUTSIDE RECORDS SUMMARY | 2025-03-06 12:46 | XMS_ITS | Encounter Summary ---
Author Organization [facility] Address [address] [place] [address] Phone Care Team Providers Care Heel Gummer Name Role Phone Blair Paris MD Unavailable +[phone] Jose A Espinosa MD Unavailable [phone] Darwin Marti MD Primary Care Provider +[phone] Hao Silvestre MD Unavailable [phone] Carlos Dailey MD Unavailable Saida Mckeon APRN, STRAINER TENDER Unavailable Jessenia Ward APRN, [facility] Unavailable + [phone] Hao Silvestre MD Unavailable +[phone] Dominic Wang MD Unavailable [phone] Butch Muñiz MD Unavailable Reason for Visit * Reason Comments Medication Refill Encounter Details Date Type Department Care Team (Late Contact Info) Description 08/18/2023 [facility] - [facility] - [place] [address] [place] [address] Ranjeet Boston PAC [address] [place] [address] Medication Refill Social History Tobacco [...] - 08/18/2023 1:20 PM CST Duplicate Request OARD MOTOR ASSEMBLER documented in this encounter Plan of Treatment Upcoming Encounters Date Type Department Care Team (Late Contact Info) Description 03/09/2025 2:30 PM CDT Office Visit [facility] - Family Medicine - [place] #[address] [place] [address] Juan Shrestha MD #[address] [address] 04/21/2025 11:00 AM CDT [facility] - Neurology - [place] [address] [place] [address] Jessenia Ward, DIRECTOR OF REGULATORY AFFAIRS, ROVING TECHNICIAN #[address] [place] [address] documented as of this encounter Visit Diagnoses [...] Total Score: 0 07/31/19 24 12:53 PM OUTBOARD MOTOR ASSEMBLER documented as of this encounter Care Teams Heel Gummer Relationship Specialty Start Date End Date Darwin Marti MD [address] [place] [address] PCP - General Internal Medicine 07/31/23 Blair Paris MD 4 [facility] , [address] [place] [address] Consulting Physician Orthopaedic Sports Medicine 07/31/23 Jose A Espinosa MD 2 [facility] [address] [place] [address] Consulting Physician Pain Medicine-Pain Management 07/31/23 02/08/24 Hao Silvestre MD [address] [address] Consulting Physician Neurological Surgery 07/31/23 Carlos Dailey MD #[address] [address] Consulting Physician Colon and Rectal Surgery 10/26/23 Saida Mckeon APRN, STRAINER TENDER #2 [place] [address] Nurse Practitioner Gastroenterology 10/26/23 Jessenia Ward APRN, ROVING TECHNICIAN #2 [place] [address] Nurse Practitioner Neurology 11/17/23 Hao Silvestre MD [address] [address] Consulting Physician Neurological Surgery 02/09/2401/27 Dominic Wang MD #2 [place] [address] Consulting Physician Pain Medicine-Pain Management 02/09/24 Butch Muñiz MD #2 [place] [address] Consulting Physician Neurology 02/23/24 documented as of this encounter
--- OUTSIDE RECORDS SUMMARY | 2025-03-06 12:47 | XMS_ITS | Encounter Summary ---
Author Organization [facility] Address [address] [facility] [place] [address] Care Team Providers Care Material Assembler Name Role Phone Luann Cox MD Primary Care Provider [phone] Ana Hassan Unavailable [phone] Darwin Marti MD Primary Care Provider + [phone] Kirstie Unger MA Unavailable [phone] Encounter Details Date Type Department Care Team (Late st Contact Info) Description 10/19/2021 Ophth Exam [facility] [address] [place] [address] Brielle [place] MD [address] [place] [address] [place] [address] Social History Tobacco Use Types [...] on filedocumented in this encounter Care Teams Material Assembler Relationship Specialty Start Date End Date Luann Cox MD PCP - General Family Medicine 05/06/21 10/26/23 Darwin Marti MD [address] [place] [address] PCP - General Internal Medicine 10/27/23 Ana Hassan Care Coordination Specialist Care Management 10/27/23 10/27/23 Kirstie Unger MA Care Coordination Specialist 10/21/24 10/24/24 documented as of this encounter
--- OUTSIDE RECORDS SUMMARY | 2025-03-06 12:47 | XMS_ITS | Encounter Summary ---
Author Organization [facility] Address [address] [place] [address] Phone Care Team Providers Care Grid Trimmer Name Role Phone Luann Cox MD Primary Care Provider + [phone] Josiane Pacheco MD Primary Care Provider + [phone] Blair Paris MD Unavailable [phone] Jose A Espinosa MD Unavailable [phone] Darwin Marti MD Primary Care Provider [phone] Hao Silvestre MD Unavailable [phone] Carlos Dailey MD Unavailable Saida Mckeon APRN, DIGITAL RECRUITER Unavailable Jessenia Ward APRN, SLAG EXPANDER Unavailable + [phone] Hao Silvestre MD Unavailable [phone] Dominic Wang MD Unavailable [phone] Butch Muñiz MD Unavailable [phone] Reason for Visit * Reason Comments Medication Refill Encounter Details Date Type Department Care Team (Late st Contact Info) Description [facility] [place] [address] [place] [address] Luann Cox MD [address] [place] [address] Medication Refill Social History Tobacco [...] Hospital 09/06/20 Office Visit Luann Cox [facility] 07/24/20 Office Visit Luann Cox MD [facility] recent visits within past 365 days and meeting all other requirements Future Appointments Date Type Provider Dept 06/13/21 Appointment Luann Cox MD [facility] future appointments within next 90 days [...] Dept 03/07/21 Office Visit Luann Cox MD [facility] [address] 09/06/20 Office Visit Luann Cox MD [facility] [address] 07/24/20 Office Visit Luann Cox MD [facility] recent visits within past 365 days and meeting all other requirements Future Appointments Date Type Provider Dept 06/13/21 Appointment Luann Cox MD [facility] future appointments within next 90 days and meeting all other requirements documented in this encounter Plan of Treatment Upcoming Encounters Date Type Department Care Team (Late st Contact Info) Description 03/09/2025 2:30 PM CDT Office Visit [facility] - Family Medicine - [place] #2 [place] [address] Juan Shrestha MD #[address] [address] 04/21/2025 11:00 AM CDT Office Visit [facility] - Neurology - [place] #2 [place] [address] Jessenia Ward APRN, SLAG EXPANDER #2 [place] [address] documented as of this encounter Visit Diagnoses Diagnosis Hyperlipidemia, unspecified hyperlipidemia type documented in this encounter Additional Health Concerns Infection Onset Date Last Indicated Resolved Time ESBL 08/16/2018 08/16/2018 09/28/2023 9:03 AM CDT COVID - 19 03/09/2023 03/09/2023 03/19/2023 12:1 6 AM CDT Respiratory Rule-Out 03/09/2023 03/09/2023 023 2:09 AM CDT COVID - 19 05/07/2023 05/07/2023 05/07/2023 9:50 AM LEMON PICKER COVID - 19 Confirmed 05/07/2023 05/07/2023 023 12:16 AM LEMON PICKER C. difficile Rule-Out 09/24/2023 09/24/20232023 3:41 PM CDT COVID - 19 09/24/2023 09/24/2023 09/24/2023 11:3 2 AM CDT C. difficile Rule-Out 09/27/2023 09/27/20232023 2:13 PM CDT COVID - 19 02/23/2024 02/23/2024 02/23/2024 11:2 8 AM CDT Respiratory Rule-Out 02/23/2024 02/23/2024 024 11:30 AM CDT Assessment Noted Time PHQ-9 Depression Total Score: 2 07/14/19 20 10:00 AM LEMON PICKER documented as of this encounter Care Teams Grid Trimmer Relationship Specialty Start Date End Date Luann Cox MD PCP - General Family Medicine 04/15/15 11/02/22 Josiane Pacheco MD [address] [place] [address] PCP - General Family Medicine 11/20/22 07/30/23 Darwin Marti MD [address] [place] [address] PCP - General Internal Medicine 07/31/23 Blair Paris MD 4 [facility] [address] [place] [address] Consulting Physician Orthopaedic Sports Medicine 07/31/23 Jose A Espinosa MD 2 [facility] [address] [place] [address] Consulting Physician Pain Medicine-Pain Management 07/31/23 02/08/24 Hao Silvestre MD [address] [address] Consulting Physician Neurological Surgery 07/31/23 Carlos Dailey MD #2 [facility] [address] [place] [address] Consulting Physician Colon and Rectal Surgery 10/26/23 Saida Mckeon APRN, DIGITAL RECRUITER #2 [place] [address] Nurse Practitioner Gastroenterology 10/26/23 Jessenia Ward APRN, SLAG EXPANDER #2 [place] [address] Nurse Practitioner Neurology 11/17/23 [place] [address] [place] [address] Consulting Physician Neurological Surgery 02/09/2401/27 Dominic Wang MD #2 [place] [address] Consulting Physician Pain Medicine-Pain Management 02/09/24 Butch Muñiz MD #2 [place] [address] Consulting Physician Neurology 02/23/24 documented as of this encounter
--- OUTSIDE RECORDS SUMMARY | 2025-03-06 12:47 | XMS_ITS | Encounter Summary ---
Author Organization [facility] Address [address] [place] [address] Phone Care Team Providers Care Repeat Photocomposing Machine Operator Name Role Phone Luann Cox MD Primary Care Provider + [phone] Josiane Pacheco MD Primary Care Provider + [phone] Blair Paris MD Unavailable [phone] Jose A Espinosa MD Unavailable [phone] Darwin Marti MD Primary Care Provider [phone] Hao Silvestre MD Unavailable [phone] Carlos Dailey MD Unavailable Saida Mckeon APRN, ATHLETIC FIELD CUSTODIAN Unavailable Jessenia Ward APRN, INSURANCE PROCESSOR Unavailable +[phone] Hao Silvestre MD Unavailable [phone] Dominic Wang MD Unavailable [phone] Butch Muñiz MD Unavailable [phone] Reason for Visit * Reason Comments Medication Refill Encounter Details Date Type Department Care Team (Late Contact Info) Description 02/23/2021 [facility]ill [facility] - [place] [address] [place] [address] Luann Cox MD [address] [place] [address] Medication Refill Social History Tobacco [...] CDT Office Visit [facility] #[address] [place] [address] Juan Shrestha MD [address] [address] 04/21/2025 11:00 AM CDT Office Visit [facility] - Neurology - [place] #2 [facility] [place] [address] Jessenia Ward APRN, INSURANCE PROCESSOR #[address] [place] [address] documented as of this encounter Visit Diagnoses Diagnosis Essential hypertension Unspecified essential hypertension documented in this encounter Additional Health Concerns Infection Onset Date Last Indicated Resolved Time ESBL 08/16/2018 08/16/2018 09/28/2023 9:03 AM CDT COVID - 19 03/09/2023 03/09/2023 03/19/2023 12:1 6 AM CDT Respiratory Rule-Out 03/09/2023 03/09/2023 023 2:09 AM CDT COVID - 19 05/07/2023 05/07/2023 05/07/2023 9:50 AM MANAGER SCIENCE COVID - 19 Confirmed 05/07/2023 05/07/2023 023 12:16 AM MANAGER SCIENCE C. difficile Rule-Out 09/24/2023 09/24/20232023 3:41 PM CDT COVID - 19 09/24/2023 09/24/2023 09/24/2023 11:3 2 AM CDT C. difficile Rule-Out 09/27/2023 09/27/20232023 2:13 PM CDT COVID - 19 02/23/2024 02/23/2024 02/23/2024 11:2 8 AM CDT Respiratory Rule-Out 02/23/2024 02/23/2024 024 11:30 AM CDT Assessment Noted Time PHQ-9 Depression Total Score: 2 07/14/19 20 10:00 AM MANAGER SCIENCE documented as of this encounter Care Teams Repeat Photocomposing Machine Operator Relationship Specialty Start Date End Date Luann Cox MD PCP - General Family Medicine 04/15/15 11/02/22 Josiane Pacheco MD [address] [place] [address] PCP - General Family Medicine 11/20/22 07/30/23 Darwin Marti MD [address] [place] [address] PCP - General Internal Medicine 07/31/23 Blair Paris MD 4 [facility] [address] [place] [address] Consulting Physician Orthopaedic Sports Medicine 07/31/23 Jose A Espinosa MD [address] [address] Consulting Physician Pain Medicine-Pain Management 07/31/23 02/08/24 Hao Silvestre MD [address] [address] Consulting Physician Neurological Surgery 07/31/23 Carlos Dailey MD #[address] [address] Consulting Physician Colon and Rectal Surgery 10/26/23 Saida Mckeon APRN, ATHLETIC FIELD CUSTODIAN #2 [place] [address] Nurse Practitioner Gastroenterology 10/26/23 Jessenia Ward APRN, INSURANCE PROCESSOR #2 [place] [address] Nurse Practitioner Neurology 11/17/23 Hao Silvestre MD [address] [place] [address] Consulting Physician Neurological Surgery 02/09/2401/27 Dominic Wang MD #2 [place] [address] Consulting Physician Pain Medicine-Pain Management 02/09/24 Butch Muñiz MD #2 [place] [address] Consulting Physician Neurology 02/23/24 documented as of this encounter
--- OUTSIDE RECORDS SUMMARY | 2025-03-06 12:47 | XMS_ITS | Clinical Summary ---
Author Organization [facility] Address [address] [facility] [place] [address] Care Team Providers Care Thread Cutter Tender Name Role Phone Darwin Marti MD Primary Care Provider [phone] Source Comments [facility],non-owned Affiliates and Associated Physician Practices is amultiple site organization consisting of ambulatory clinics and hospital sitesin [place], [place], [place] and [place]. This disclosure is being madepursuant to the Care Everywhere program and may not contain all information available regarding this patient. Last updated 18.[facility] Allergies Active Allergy Reactions Criticality Noted Date [...] Reaction: Vomiting, Penicillins Other,Unknown 03/28/2021 Reaction: Unknown, [place] Unknown 06/15/2015 Sulfa Drugs Other 02/08/2020 Reaction: [...] yrs (1 - 1-dose 75+ series) 01/15/2023 DEPRESSION SCREENING 06/29/2024 COVID-19 VACCINE (4 - 2025-26 season) 2025 07/01/2021, 11/06/2020, 10/09/2020 INFLUENZA VACCINE (#1) 2025 , 07/12/2020, 05/04/2019, [...] age to complete this topic Insurance MEDICARE [facility] Advance Directives * Full Code (Latest Code Status on File) Date Activated Date Inactivated Comments 10/18/2021 5:32 PM 10/19/2021 1:05 PM Care Teams Thread Cutter Tender Relationship Specialty Start Date End Date Darwin Marti MD [address] [place] [address] PCP - General Internal Medicine 10/27/23
--- OUTSIDE RECORDS SUMMARY | 2025-03-06 12:47 | XMS_ITS | Encounter Summary ---
Author Organization [facility] Address [address] [place] [address] Phone Care Team Providers Care Registered Mail Clerk Name Role Phone Luann Cox MD Primary Care Provider + [phone] Josiane Pacheco MD Primary Care Provider + [phone] Blair Paris MD Unavailable +[phone] Jose A Espinosa MD Unavailable +[phone] Darwin Marti MD Primary Care Provider [phone] Hao Silvestre MD Unavailable +[phone] Carlos Dailey MD Unavailable Saida Mckeon APRN, BRAND LEADER Unavailable Jessenia Ward APRN, GANTRY CRANE OPERATOR Unavailable + [phone] Hao Silvestre MD Unavailable +[phone] Dominic Wang MD Unavailable +[phone] Butch Muñiz MD Unavailable +[phone] Reason for Visit * Reason Comments Medication Refill Encounter Details Date Type Department Care Team (Late st Contact Info) Description 04/19/2021 Refill [facility] - Primary Care - [place] [address] [place] [id number] Luann Cox MD [address] [place] [address] Medication Refill Social History Tobacco [...] Dept 03/07/21 Office Visit Luann Cox MD [facility] 09/06/20 Office Visit Luann Cox MD [facility] 07/24/20 Office Visit Luann Cox MD [facility] Showing recent visits within past 365 days and meeting all other requirements Future Appointments Date Type Provider Dept 06/13/21 Appointment Luann Cox MD [facility] Showing future appointments within next 90 [...] Dept 03/07/21 Office Visit Luann Cox MD [employer] [employer] [facility] 09/06/20 Office Visit Luann Cox MD [employer] [employer] [facility] 07/24/20 Office Visit Luann Cox MD [facility] Showing recent visits within past 365 days and meeting all other requirements Future Appointments Date Type Provider Dept 06/13/21 Appointment Luann Cox MD [facility] [employer] [facility] Showing future appointments within next 90 [...] Dept 03/07/21 Office Visit Luann Cox MD [facility] 09/06/20 Office Visit Luann Cox MD [facility] 07/24/20 Office Visit Luann Cox MD [facility] Showing recent visits within past 365 days and meeting all other requirements Future Appointments Date Type Provider Dept 06/13/21 Appointment Luann Cox MD [facility] [employer] [facility] Showing future appointments within next 90 days and meeting all other requirements Passed - Normal TSH in past 12 months TSH Date Value Ref Range Status 03/05/2021 2.770 0.270 - 4.200 mIU/L Final documented in this encounter Plan of Treatment Upcoming Encounters Date Type Department Care Team (Late st Contact Info) Description 03/09/2025 2:30 PM CDT Office Visit [facility] - Family Medicine [facility] [address] [place] [address] Juan Shrestha MD [address] [address] 04/21/2025 11:00 AM CDT Office Visit [facility] - Neurology [facility] [address] [place] [id number] Jessenia Ward APRN, GANTRY CRANE OPERATOR [address] [place] [address] documented as of this encounter Visit Diagnoses [...] - 19 05/07/2023 05/07/2023 05/07/2023 9:50 AM RESPIRATORY ASSISTANT COVID - 19 Confirmed 05/07/2023 05/07/2023 023 12:16 AM RESPIRATORY ASSISTANT C. difficile Rule-Out 09/24/2023 09/24/20232023 3:41 PM CDT COVID - 19 09/24/2023 09/24/2023 09/24/2023 11:3 2 AM CDT C. difficile Rule-Out 09/27/2023 09/27/20232023 2:13 PM CDT COVID - 19 02/23/2024 02/23/2024 02/23/2024 11:2 8 AM CDT Respiratory Rule-Out 02/23/2024 02/23/2024 024 11:30 AM CDT Assessment Noted Time PHQ-9 Depression Total Score: 2 07/14/19 20 10:00 AM RESPIRATORY ASSISTANT documented as of this encounter Care Teams Registered Mail Clerk Relationship Specialty Start Date End Date Luann Cox MD PCP - General Family Medicine 04/15/15 11/02/22 Josiane Pacheco MD [address] [place] [address] PCP - General Family Medicine 11/20/22 07/30/23 Darwin Marti MD [address] [place] [address] PCP - General Internal Medicine 07/31/23 Blair Paris MD 4 [facility] [address] [place] [address] Consulting Physician Orthopaedic Sports Medicine 07/31/23 Jose A Espinosa MD 2 [facility] [address] [place] [address] Consulting Physician Pain Medicine-Pain Management 07/31/23 02/08/24 Hao Silvestre MD [address] [address] Consulting Physician Neurological Surgery 07/31/23 Carlos Dailey MD #[address] [address] Consulting Physician Colon and Rectal Surgery 10/26/23 Saida Mckeon APRN, BRAND LEADER [address] [place] [address] Nurse Practitioner Gastroenterology 10/26/23 Jessenia Ward APRN, GANTRY CRANE OPERATOR [address] [place] [address] Nurse Practitioner Neurology 11/17/23 Hao Silvestre MD [address] [address] Consulting Physician Neurological Surgery 02/09/2401/27 Dominic Wang MD [address] [place] [address] Consulting Physician Pain Medicine-Pain Management 02/09/24 Butch Muñiz MD [address] [place] [address] Consulting Physician Neurology 02/23/24 documented as of this encounter
--- OUTSIDE RECORDS SUMMARY | 2025-03-06 12:47 | XMS_ITS | Encounter Summary ---
Author Organization [facility] Address [address] [place] [address] Phone Care Team Providers Care Meat Grading Machine Operator Name Role Phone Luann Cox MD Primary Care Provider + [phone] Josiane Pacheco MD Primary Care Provider + [phone] Blair Paris MD Unavailable [phone] Jose A Espinosa MD Unavailable [phone] Darwin Marti MD Primary Care Provider +[phone] Hao Silvestre MD Unavailable +[phone] Carlos Dailey MD Unavailable Saida Mckeon APRN, MEDIA EXECUTIVE Unavailable Jessenia Ward APRN, WELDING ROD COATER Unavailable +- [phone] Hao Silvestre MD Unavailable +[phone] Dominic Wang MD Unavailable [phone] Butch Muñiz MD Unavailable +[phone] Reason for Visit * Reason Comments Medication Refill Encounter Details Date Type Department Care Team ([facility] Contact Info) Description 05/12/2021 Refill [facility] Primary [facility] - [place] [address] [place] [phone] Luann Cox MD [address] [place] [address] Medication Refill Social History Tobacco [...] no refill protocol information for this order ATIONS SUPERVISOR documented in this encounter Plan of Treatment Upcoming Encounters Date Type Department Care Team ([facility] Contact Info) Description 03/09/2025 2:30 PM CDT Office Visit [facility] - Family Medicine - [address] [place] [address] Juan [facility]restha MD [facility] [address] [address] 04/21/2025 11:00 AM CDT Office Visit [facility] - Neurology - [address] [place] [address] Jessenia Ward APRN, WELDING ROD COATER [address] [place] [address] documented as of this encounter Visit Diagnoses Not on filedocumented in this encounter Additional Health Concerns Infection Onset Date Last Indicated Resolved Time ESBL 08/16/2018 08/16/2018 09/28/2023 9:03 AM CDT COVID - 19 03/09/2023 03/09/2023 03/19/2023 12:1 6 AM CDT Respiratory Rule-Out 03/09/2023 03/09/2023 023 2:09 AM CDT COVID - 19 05/07/2023 05/07/2023 05/07/2023 9:50 AM OPERATIONS SUPERVISOR COVID - 19 Confirmed 05/07/2023 05/07/2023 023 12:16 AM OPERATIONS SUPERVISOR C. difficile Rule-Out 09/24/2023 09/24/20232023 3:41 PM CDT COVID - 19 09/24/2023 09/24/2023 09/24/2023 11:3 2 AM CDT C. difficile Rule-Out 09/27/2023 09/27/20232023 2:13 PM CDT COVID - 19 02/23/2024 02/23/2024 02/23/2024 11:2 8 AM CDT Respiratory Rule-Out 02/23/2024 02/23/2024 024 11:30 AM CDT Assessment Noted Time PHQ-9 Depression Total Score: 2 07/14/19 20 10:00 AM OPERATIONS SUPERVISOR documented as of this encounter Care Teams Meat Grading Machine Operator Relationship Specialty Start Date End Date Luann Cox MD PCP - General Family Medicine 04/15/15 11/02/22 Josiane Pacheco MD [address] [place] [address] PCP - General Family Medicine 11/20/22 07/30/23 Darwin Marti MD [address] [place] [address] PCP - General Internal Medicine 07/31/23 Blair Paris MD 4 [facility] [address] [place] [address] Consulting Physician Orthopaedic Sports Medicine 07/31/23 Jose A Espinosa MD 2 [facility] [address] [place] [address] Consulting Physician Pain Medicine-Pain Management 07/31/23 02/08/24 Hao Silvestre MD [address] [address] Consulting Physician Neurological Surgery 07/31/23 Carlos Dailey MD #2 [facility] [address] [place] [address] Consulting Physician Colon and Rectal Surgery 10/26/23 Saida Mckeon APRN, MEDIA EXECUTIVE [address] [place] [address] Nurse Practitioner Gastroenterology 10/26/23 Jessenia Ward APRN, WELDING ROD COATER [address] [place] [address] Nurse Practitioner Neurology 11/17/23 Hao Silvestre MD [address] [address] Consulting Physician Neurological Surgery 02/09/2401/27 Dominic Wang MD [address] [place] [address] Consulting Physician Pain Medicine-Pain Management 02/09/24 Butch Muñiz MD [address] [place] [address] Consulting Physician Neurology 02/23/24 documented as of this encounter
--- OUTSIDE RECORDS SUMMARY | 2025-03-06 12:47 | XMS_ITS | Clinical Summary ---
Author Organization [facility] Address [address] [place] [address] Care Team Providers Care Subway Guard Name Role Phone Luann Cox MD Primary Care Provider [phone] Allergies Active Allergy Reactions Criticality Noted Date [...] Vomiting, Penicillins Other (See comments) Reaction: Unknown, Oriental Sulfa (Sulfonamide Antibiotics) Other (See comments) Reaction: [...] in the evening 0 0 5 Active ooxjyckq-mzqe-g in-folic acid (multivitamin-i wai-zdabrlpz-pi lic acid) 3,500-18-0.4 unit-mg-mg tablet,chewable 0 0 [...] pain without sciatica 07/04/2022 Lumbar radiculopathy 07/04/2022 alf current use of 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 3 Insomnia secondary [...] Other Medical Hysterectomy 30 years ago.; Comments: [facility] 02/20/2015 - Hx Other Medical Breast tumors 2 8 years ago.; Comments: [facility] 02/20/2015 - Hx Other Medical Right knee A&A 03-07-15.; Comments: [facility] 03/20/2015 - Hx Other Medical Right total kne e replacement 06-27-15.; Comments: [facility] 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 [...] on file Legal Sex Female 6:41 PM ORDER BUILDER LOADER Gender Identity Not on file Sexual Orientation Not on file Obstetrics History Last Filed Vital Signs Vital Sign Reading Time Taken Comments Blood Pressure 132/93 07/14/2024 11:06 AM ORDER BUILDER LOADER Pulse 99 07/14/2024 11:06 AM ORDER BUILDER LOADER Temperature 36.9 C (98.4 F) 06/30/2024 8:25 AM ORDER BUILDER LOADER Respiratory Rate 0 06/30/2024 8:30 AM ORDER BUILDER LOADER Oxygen Saturation 99% 06/30/2024 8:25 AM ORDER BUILDER LOADER Inhaled Oxygen Concentration - - Weight 75.8 kg (167 lb) 07/14/2024 11:06 AM ORDER BUILDER LOADER Height 162.6 cm (5' 4) 07/14/2024 11:06 AM ORDER BUILDER LOADER Body Mass Index 28.67 07/14/2024 11:06 AM ORDER BUILDER LOADER Plan of Treatment Health Maintenance Due Date Last Done Comments Hepatitis C Screening 1950 Hepatitis B Screening 01/15/1966 DTaP/Tdap/Td Vaccine (1 - Tdap) 06/30/1998 9 Well Visit 65+ 01/15/2013 Zoster Vaccine (2 of 3) 03/24/2013 01/27/2013 Depression Screening 07/04/2023 07/04/2022, 07/04/19 Osteoporosis Screening-Bone Density Scan 08/09/2023 08/09/2021, 08/09/2021, 04/23/2017, Additional history exists Covid-19 Vaccine (4 - 2024-2 6 season) 2025 07/01/2021, 11/06/2020, 10/09/2020 Influenza Vaccine (#1) 2025 [...] PM CDT DEXA Bone Density Axial Acc#: [id number] DATE OF EXAM: Apr 23 2017 EXAM: [...] WYLIE Requesting Attending Fax: -- Attending ID: [id number] Requesting ID: [id number] Report To 1 ID: [id number] Report To 1 Name: JAY WYLIE Report To 1 FAX: -- [employer]Gen Order #: [id number] Procedure Note Miscellaneous, Not In File - 04/23/2017 DEXA Bone Density Axial Acc#: [id number] DATE OF EXAM: Apr 23 2017 EXAM: [...] WYLIE Requesting Attending Fax: -- Attending ID: [id number] Requesting ID: [id number] Report To 1 ID: [id number] Report To 1 Name: JAY WYLIE Report To 1 FAX: -- [employer] Order #: [id number] Jay Wylie MD IMG DXA PROCEDURES Final R esult from Last 3 Months or Most Recently Relevant to Health Maintenance Insurance MEDICARE [facility] [place] [address] MEDICARE [facility] [place] [address] Care Teams Subway Guard Relationship Specialty Start Date End Date Luann Cox MD PCP - General 05/08/09
--- OUTSIDE RECORDS SUMMARY | 2025-03-06 12:47 | XMS_ITS | Encounter Summary ---
Author Organization [facility] Address [address] [place] [address] Phone Care Team Providers Care Therapeutic Recreation Specialist Name Role Phone Luann Cox MD Primary Care Provider + [phone] Josiane Pacheco MD Primary Care Provider + [phone] Blair Paris MD Unavailable [phone] Jose A Espinosa MD Unavailable [phone] Darwin Marti MD Primary Care Provider +[phone] Hao Silvestre MD Unavailable +[phone] Carlos Dailey MD Unavailable Saida Mcekon APRN, MANAGER PROPERTY Unavailable Jessenia Ward APRN, LEGAL TRANSCRIPTIONIST Unavailable +- [phone] Hao Silvestre MD Unavailable [phone] Dominic Wang MD Unavailable [phone] Butch Muñiz MD Unavailable +[phone] Reason for Visit * Reason Comments Medication Refill Encounter Details Date Type Department Care Team (Late Contact Info) Description 11/11/2020 [facility]ill [facility] [place] [facility] - [facility] - [place] [address] [place] [address] Luann Cox MD [address] [place] [address] Medication Refill Social History Tobacco [...] Description 03/09/2025 2:30 PM CDT Office Visit [facility] - Family Medicine - [place] [address] [place] [address] Juan Shrestha MD #[address] [address] 04/21/2025 11:00 AM CDT Office Visit [facility] - Neurology - [place] [address] [place] [phone] Jessenia Ward APRN, LEGAL TRANSCRIPTIONIST [address] [place] [address] documented as of this encounter Visit Diagnoses Diagnosis Essential hypertension Unspecified essential hypertension documented in this encounter Additional Health Concerns Infection Onset Date Last Indicated Resolved Time ESBL 08/16/2018 08/16/2018 09/28/2023 9:03 AM CDT COVID - 19 03/09/2023 03/09/2023 03/19/2023 12:1 6 AM CDT Respiratory Rule-Out 03/09/2023 03/09/2023 023 2:09 AM CDT COVID - 19 05/07/2023 05/07/2023 05/07/2023 9:50 AM CLINICAL SERVICES PROFESSIONAL COVID - 19 Confirmed 05/07/2023 05/07/2023 023 12:16 AM CLINICAL SERVICES PROFESSIONAL C. difficile Rule-Out 09/24/2023 09/24/20232023 3:41 PM CDT COVID - 19 09/24/2023 09/24/2023 09/24/2023 11:3 2 AM CDT C. difficile Rule-Out 09/27/2023 09/27/20232023 2:13 PM CDT COVID - 19 02/23/2024 02/23/2024 02/23/2024 11:2 8 AM CDT Respiratory Rule-Out 02/23/2024 02/23/2024 024 11:30 AM CDT Assessment Noted Time PHQ-9 Depression Total Score: 2 07/14/19 20 10:00 AM CLINICAL SERVICES PROFESSIONAL documented as of this encounter Care Teams Therapeutic Recreation Specialist Relationship Specialty Start Date End Date Luann Cox MD PCP - General Family Medicine 04/15/15 11/02/22 Josiane Pacheco MD [address] [place] [address] PCP - General Family Medicine 11/20/22 07/30/23 Darwin Marti MD [address] [place] [address] PCP - General Internal Medicine 07/31/23 Blair Paris MD 4 [facility] [address] [place] [address] Consulting Physician Orthopaedic Sports Medicine 07/31/23 Jose A Espinosa MD 2 [facility] [address] [place] [address] Consulting Physician Pain Medicine-Pain Management 07/31/23 02/08/24 Hao Silvestre MD [address] [place] [address] Consulting Physician Neurological Surgery 07/31/23 Carlos Dailey MD #[address] [address] Consulting Physician Colon and Rectal Surgery 10/26/23 Saida Mckeon APRN, MANAGER PROPERTY [address] [place] [address] Nurse Practitioner Gastroenterology 10/26/23 Jessenia Ward APRN, LEGAL TRANSCRIPTIONIST [address] [place] [address] Nurse Practitioner Neurology 11/17/23 Hao Silvestre MD [address] [address] Consulting Physician Neurological Surgery 02/09/2401/27 Dominic Wang MD #[address] [place] [address] Consulting Physician Pain Medicine-Pain Management 02/09/24 Butch Muñiz MD #[address] [place] [address] Consulting Physician Neurology 02/23/24 documented as of this encounter
--- OUTSIDE RECORDS SUMMARY | 2025-03-06 12:47 | XMS_ITS | Encounter Summary ---
Author Organization [facility] Address [address] [place] [address] Phone Care Team Providers Care Cigarette Vendor Name Role Phone Luann Cox MD Primary Care Provider + [phone] Josiane Pacheco MD Primary Care Provider + [phone] Blair Paris MD Unavailable +[phone] Jose A Espinosa MD Unavailable +[phone] Darwin Marti MD Primary Care Provider +[phone] Hao Silvestre MD Unavailable +[phone] Carlos Dailey MD Unavailable Saida Mckeon APRN, VENDING MACHINE TECHNICIAN Unavailable Jessenia Ward APRN, METAL BOX MAKER Unavailable + [phone] Hao Silvestre MD Unavailable +[phone] Dominic Wang MD Unavailable +[phone] Butch Muñiz MD Unavailable +[phone] Reason for Visit * Reason Comments Medication Refill Encounter Details Date Type Department Care Team (Late st Contact Info) Description 01/02[facility] [place] [address] [place] [id number] Luann Cox MD [address] [place] [address] [...] Dept 09/06/20 Office Visit Luann Cox MD [facility] 07/24/20 Office Visit Luann Cox MD [facility] 01/12/20 Office Visit Luann Cox MD [facility] Showing recent visits within past 365 days and meeting all other requirements Future Appointments Date Type Provider Dept 03/07/21 Appointment Luann Cox MD [facility] [...] stenosis, lumbar region, with neurogenic claudication [facility] Luann Cox MD 5 months ago Uncomplicated asthma [facility] Luann Cox MD 11 months ago Essential hypertension [facility] Luann Cox MD 1 year ago Essential hypertension [facility] Luann Cox MD 1 year ago Essential hypertension [facility] Luann Cox MD Upcoming Appointments Future Appointments In 2 months Luann Cox MD [facility] - Recent and Past Visits Recent Visits Date Type Provider Dept 09/06/20 Office Visit Luann Cox MD [facility] 07/24/20 Office Visit Luann Cox MD [facility] 01/12/20 Office Visit Luann Cox MD [facility] Showing recent visits within past 460 days with a meds authorizing provider and meeting all other requirements Future Appointments Date Type Provider Dept 03/07/21 Appointment Luann Cox MD [facility] [...] Dept 09/06/20 Office Visit [facility] MD [facility] 07/24/20 Office Visit Luann Cox MD [facility] 01/12/20 Office Visit [facility]ann Cox MD [facility] Showing recent visits within past 365 days and meeting all other requirements Future Appointments Date Type Provider Dept 03/07/21 Appointment Luann Cox MD [facility] Showing future appointments within next 90 days [...] Dept 09/06/20 Office Visit Luann Cox MD [facility] 07/24/20 Office Visit [facility] 01/12/20 Office Visit Luann Cox MD [facility] Showing recent visits within past 365 days and meeting all other requirements Future Appointments Date Type Provider Dept 03/07/21 Appointment Luann Cox MD [facility] Showing future appointments within next 90 days and meeting all other requirements [facility]: Antiulcer - Proton Pump Inhibitors Passed - 01/02/2021 12:58 PM Passed - Valid encounter within last 12 months Past Office Visits Recent Outpatient Visits 3 months ago Spinal stenosis, lumbar region, with neurogenic claudication [facility] Luann Cox MD 5 months ago Uncomplicated asthma [facility] Luann Cox MD 11 months ago Essential hypertension [facility] Luann Cox MD 1 year ago Essential hypertension [facility] Luann Cox MD 1 year ago Essential hypertension [facility] Luann Cox MD Upcoming Appointments Future Appointments In 2 months Luann Cox MD [facility] CHEMICAL PROCESSING LABORER - Recent and Past Visits Recent Visits Date Type Provider Dept 09/06/20 Office Visit Luann Cox MD [facility] 07/24/20 Office Visit Luann Cox MD [facility] 01/12/20 Office Visit Luann Cox MD [facility] Showing recent visits within past 460 days with a meds authorizing provider and meeting all other requirements Future Appointments Date Type Provider Dept 03/07/21 Appointment Luann Cox MD [facility] Showing future appointments within next 90 days with a meds authorizing provider and meeting all other requirements documented in this encounter Plan of Treatment Upcoming Encounters Date Type Department Care Team (Late st Contact Info) Description 03/09/2025 2:30 PM CDT [facility] [place] [address] Juan Shrestha MD #[address] [address] 04/21/2025 11:00 AM CDT [facility] - [facility]rology - [place] [address] [place] [address] Jessenia Ward, CHAIN HOOKER, METAL BOX MAKER [address] [place] [address] documented as of this encounter Visit Diagnoses [...] 19 05/07/2023 05/07/2023 05/07/2023 9:50 AM RN DOCUMENT IMPROVEMENT COVID - 19 Confirmed 05/07/2023 05/07/2023 023 12:16 AM RN DOCUMENT IMPROVEMENT C. difficile Rule-Out 09/24/2023 09/24/20232023 3:41 PM CDT COVID - 19 09/24/2023 09/24/2023 09/24/2023 11:3 2 AM CDT C. difficile Rule-Out 09/27/2023 09/27/20232023 2:13 PM CDT COVID - 19 02/23/2024 02/23/2024 02/23/2024 11:2 8 AM CDT Respiratory Rule-Out 02/23/2024 02/23/2024 024 11:30 AM CDT Assessment Noted Time PHQ-9 Depression Total Score: 2 07/14/19 20 10:00 AM RN DOCUMENT IMPROVEMENT documented as of this encounter Care Teams Cigarette Vendor Relationship Specialty Start Date End Date Luann Cox MD PCP - General Family Medicine 04/15/15 11/02/22 Josiane Pacheco MD [address] [place] [address] PCP - General Family Medicine 11/20/22 07/30/23 Darwin Marti MD [address] [place] [address] PCP - General Internal Medicine 07/31/23 Blair Paris MD 4 [facility] [address] [place] [address] Consulting Physician Orthopaedic Sports Medicine 07/31/23 Jose A Espinosa MD 2 [facility] [address] [place] [address] Consulting Physician Pain Medicine-Pain Management 07/31/23 02/08/24 Hao Silvestre MD [address] [address] Consulting Physician Neurological Surgery 07/31/23 Carlos Dailey MD #2 [facility] [address] [place] [address] Consulting Physician Colon and Rectal Surgery 10/26/23 Saida Mckeon APRN, VENDING MACHINE TECHNICIAN [address] [place] [address] Nurse Practitioner Gastroenterology 10/26/23 Jessenia Ward APRN, METAL BOX MAKER [address] [place] [address] Nurse Practitioner Neurology 11/17/23 Hao Silvestre MD [address] [address] Consulting Physician Neurological Surgery 02/09/2401/27 Dominic Wang MD #2 [place] [address] Consulting Physician Pain Medicine-Pain Management 02/09/24 Butch Muñiz MD #[address] [place] [address] Consulting Physician Neurology 02/23/24 documented as of this encounter
--- OUTSIDE RECORDS SUMMARY | 2025-03-06 12:47 | XMS_ITS | Encounter Summary ---
Author Organization [facility] Address [address] [place] [address] Phone Care Team Providers Care Label Operator Name Role Phone Luann Cox MD Primary Care Provider + [phone] Josiane Pacheco MD Primary Care Provider + [phone] Blair Paris MD Unavailable +[phone] Jose A Espinosa MD Unavailable +[phone] Darwin Marti MD Primary Care Provider +[phone] Hao Silvestre MD Unavailable +[phone] Carlos Dailey MD Unavailable Saida Mckeon APRN, CUSTOMER EXPERIENCE RETAIL CLERK Unavailable Jessenia Ward APRN, PILLOWCASE MAKER Unavailable + [phone] Hao Silvestre MD Unavailable +[phone] Dominic Wang MD Unavailable +[phone] Butch Muñiz MD Unavailable +[phone] Reason for Visit * Reason Comments Medication Refill Encounter Details Date Type Department Care Team (Late st Contact Info) Description 01/27/2021 Refill [facility] - Primary Care - [place] [address] [place] [id number] Luann Cox MD [address] [place] [address] Medication Refill Social History Tobacco [...] Spinal stenosis, lumbar region, with neurogenic claudication [facility] - Family Medicine - [facility] Luann Cox MD 6 months ago Uncomplicated asthma [facility] Luann Cox MD 1 year ago Essential hypertension [facility] Luann Cox MD 1 year ago Essential hypertension [facility] Luann Cox MD 2 years ago Essential hypertension [facility] Luann Cox MD Upcoming Appointments Future Appointments In 1 month Luann Cox MD [facility] 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 FOLDING 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 - Recent and Past Visits Recent Visits Date Type Provider Dept 09/06/20 Office Visit Luann Cox MD [facility] 07/24/20 Office Visit Luann Cox MD [facility] 01/12/20 Office Visit Luann Cox MD [facility] Showing recent visits within past 460 days with a meds authorizing provider and meeting all other requirements Future Appointments Date Type Provider Dept 03/07/21 Appointment Luann Cox MD [facility] Showing future appointments within next 90 days [...] Dept 09/06/20 Office Visit Luann Cox MD [facility] 07/24/20 Office Visit Luann Cox MD [facility] Showing recent visits within past 365 days and meeting all other requirements Future Appointments Date Type Provider Dept 03/07/21 Appointment Luann Cox MD [facility] Showing future appointments within next 90 days and meeting all other requirements documented in this encounter Plan of Treatment Upcoming Encounters Date Type Department Care Team (Late st Contact Info) Description 03/09/2025 2:30 PM CDT Office Visit [facility] - Family Medicine - [place] [address] [place] [address] Juan Shrestha MD #[address] [address] 04/21/2025 11:00 AM CDT Office Visit [facility] - Neurology - [place] [address] [place] [phone] Jessenia Ward APRN, PILLOWCASE MAKER [address] [place] [address] documented as of this encounter Visit Diagnoses Diagnosis Neuropathy Mononeuritis of unspecified site documented in this encounter Additional Health Concerns Infection Onset Date Last Indicated Resolved Time ESBL 08/16/2018 08/16/2018 09/28/2023 9:03 AM CDT COVID - 19 03/09/2023 03/09/2023 03/19/2023 12:1 6 AM CDT Respiratory Rule-Out 03/09/2023 03/09/2023 023 2:09 AM CDT COVID - 19 05/07/2023 05/07/2023 05/07/2023 9:50 AM DINING ROOM ATTENDANT COVID - 19 Confirmed 05/07/2023 05/07/2023 023 12:16 AM DINING ROOM ATTENDANT C. difficile Rule-Out 09/24/2023 09/24/20232023 3:41 PM CDT COVID - 19 09/24/2023 09/24/2023 09/24/2023 11:3 2 AM CDT C. difficile Rule-Out 09/27/2023 09/27/20232023 2:13 PM CDT COVID - 19 02/23/2024 02/23/2024 02/23/2024 11:2 8 AM CDT Respiratory Rule-Out 02/23/2024 02/23/2024 024 11:30 AM CDT Assessment Noted Time PHQ-9 Depression Total Score: 2 07/14/19 20 10:00 AM DINING ROOM ATTENDANT documented as of this encounter Care Teams Label Operator Relationship Specialty Start Date End Date Luann Cox MD PCP - General Family Medicine 04/15/15 11/02/22 Josiane Pacheco MD [address] [place] [address] PCP - General Family Medicine 11/20/22 07/30/23 Darwin Marti MD [address] [place] [address] PCP - General Internal Medicine 07/31/23 Blair Paris MD 4 [facility] [address] [place] [address] Consulting Physician Orthopaedic Sports Medicine 07/31/23 Jose A Espinosa MD 2 [facility] [address] [place] [address] Consulting Physician Pain Medicine-Pain Management 07/31/23 02/08/24 Hao Silvestre MD [address] [address] Consulting Physician Neurological Surgery 07/31/23 Carlos Dailey MD #2 [facility] [address] [place] [address] Consulting Physician Colon and Rectal Surgery 10/26/23 Saida Mckeon APRN, CUSTOMER EXPERIENCE RETAIL CLERK [address] [place] [address] Nurse Practitioner Gastroenterology 10/26/23 Jessenia Ward APRN, PILLOWCASE MAKER [address] [place] [address] Nurse Practitioner Neurology 11/17/23 Hao Silvestre MD [address] [address] Consulting Physician Neurological Surgery 02/09/2401/27 Dominic Wang MD #[address] [place] [address] Consulting Physician Pain Medicine-Pain Management 02/09/24 Butch Muñiz MD #[address] [place] [address] Consulting Physician Neurology 02/23/24 documented as of this encounter
--- OUTSIDE RECORDS SUMMARY | 2025-03-06 12:47 | XMS_ITS | Encounter Summary ---
Author Organization [facility] Address [address] [place] [address] Phone Care Team Providers Care Mold Polisher Name Role Phone Luann Cox MD Primary Care Provider + [phone] Josiane Pacheco MD Primary Care Provider + [phone] Blair Paris MD Unavailable +[phone] Jose A Espinosa MD Unavailable [phone] Darwin Marti MD Primary Care Provider +[phone] Hao Silvestre MD Unavailable [phone] Carlos Dailey MD Unavailable Saida Mckeon APRN, STEWARD DISHWASHER Unavailable Jessenia Ward APRN, LEGISLATIVE ASSISTANT Unavailable + [phone] Hao Silvestre MD Unavailable +[phone] Dominic Wang MD Unavailable [phone] Butch Muñiz MD Unavailable +[phone] Reason for Visit * Reason Comments Medication Refill Encounter Details Date Type Department Care Team (Late Contact Info) Description 04/24/2020 Refill [facility] Primary Care - [place] [address] [place] [phone] Luann Cox MD [address] [place] [address] Medication Refill Social History Tobacco [...] [facility] - Family Medicine - [place] [address] [place] [address] Juan Shrestha MD [address] [address] 04/21/2025 11:00 AM CDT Office Visit [facility] - Neurology - [place] [address] [place] [address] Jessenia Ward APRN, LEGISLATIVE ASSISTANT #[address] [facility] [place] [place] [address] documented as of this encounter Visit Diagnoses Diagnosis Hypothyroidism (acquired) Unspecified hypothyroidism Eczema, unspecified type documented in this encounter Additional Health Concerns Infection Onset Date Last Indicated Resolved Time ESBL 08/16/2018 08/16/2018 09/28/2023 9:03 AM CDT COVID - 19 03/09/2023 03/09/2023 03/19/2023 12:1 6 AM CDT Respiratory Rule-Out 03/09/2023 03/09/2023 023 2:09 AM CDT COVID - 19 05/07/2023 05/07/2023 05/07/2023 9:50 AM STRING CUTTER COVID - 19 Confirmed 05/07/2023 05/07/2023 023 12:16 AM STRING CUTTER C. difficile Rule-Out 09/24/2023 09/24/20232023 3:41 PM CDT COVID - 19 09/24/2023 09/24/2023 09/24/2023 11:3 2 AM CDT C. difficile Rule-Out 09/27/2023 09/27/20232023 2:13 PM CDT COVID - 19 02/23/2024 02/23/2024 02/23/2024 11:2 8 AM CDT Respiratory Rule-Out 02/23/2024 02/23/2024 024 11:30 AM CDT Assessment Noted Time PHQ-9 Depression Total Score: 2 07/14/19 20 10:00 AM STRING CUTTER documented as of this encounter Care Teams Mold Polisher Relationship Specialty Start Date End Date Luann Cox MD PCP - General Family Medicine 04/15/15 11/02/22 Josiane Pacheco MD [address] [place] [address] PCP - General Family Medicine 11/20/22 07/30/23 Darwin Marti MD [address] [place] [address] PCP - General Internal Medicine 07/31/23 Blair Paris MD 4 [facility] [address] [place] [address] Consulting Physician Orthopaedic Sports Medicine 07/31/23 Jose A Espinosa MD 2 [facility] [address] [place] [address] Consulting Physician Pain Medicine-Pain Management 07/31/23 02/08/24 Hao Silvestre MD [address] [address] Consulting Physician Neurological Surgery 07/31/23 Carlos Dailey MD #2 [facility] [address] [place] [address] Consulting Physician Colon and Rectal Surgery 10/26/23 Saida Mckeon APRN, STEWARD DISHWASHER [address] [place] [address] Nurse Practitioner Gastroenterology 10/26/23 Jessenia Ward APRN, LEGISLATIVE ASSISTANT #[address] [place] [address] Nurse Practitioner Neurology 11/17/23 Hao Silvestre MD [address] [address] Consulting Physician Neurological Surgery 02/09/2401/27 Dominic Wang MD #[address] [place] [address] Consulting Physician Pain Medicine-Pain Management 02/09/24 Butch Muñiz MD #[address] [place] [address] Consulting Physician Neurology 02/23/24 documented as of this encounter
--- OUTSIDE RECORDS SUMMARY | 2025-03-06 12:47 | XMS_ITS | Encounter Summary ---
Author Organization [facility] Address [address] [place] [address] Phone Care Team Providers Care Documentation Lead Name Role Phone Luann Cox MD Primary Care Provider + [phone] Josiane Pacheco MD Primary Care Provider + [phone] Blair Paris MD Unavailable [phone] Jose A Espinosa MD Unavailable [phone] Darwin Marti MD Primary Care Provider +[phone] Hao Silvestre MD Unavailable +[phone] Carlos Dailey MD Unavailable Saida Mckeon APRN, PRODUCTION SUPV Unavailable Jessenia Ward APRN, AEROBICS TEACHER Unavailable +- [phone] Hao Silvestre MD Unavailable Dominic Wang MD Unavailable [phone] Butch Muñiz MD Unavailable +[phone] Reason for Visit * Reason Comments Medication Refill Encounter Details Date Type Department Care Team (Late Contact Info) Description 10/27/[facility] [place] [address] [place] [address] Luann Cox MD [address] [place] [address] Medication Refill Social History Tobacco [...] Description 03/09/2025 2:30 PM CDT Office Visit [facility] Medical [facility] - Family Medicine - [place] [address] [place] [address] Juan Shrestha MD #[address] [address] 04/21/2025 11:00 AM CDT Office Visit [facility] - Neurology - [place] [address] [place] [address] Jessenia Ward APRN, AEROBICS TEACHER #[address] [place] [address] documented as of this encounter Visit Diagnoses [...] - 19 05/07/2023 05/07/2023 05/07/2023 9:50 AM STULL INSTALLER COVID - 19 Confirmed 05/07/2023 05/07/2023 023 12:16 AM STULL INSTALLER C. difficile Rule-Out 09/24/2023 09/24/20232023 3:41 PM CDT COVID - 19 09/24/2023 09/24/2023 09/24/2023 11:3 2 AM CDT C. difficile Rule-Out 09/27/2023 09/27/20232023 2:13 PM CDT COVID - 19 02/23/2024 02/23/2024 02/23/2024 11:2 8 AM CDT Respiratory Rule-Out 02/23/2024 02/23/2024 024 11:30 AM CDT Assessment Noted Time PHQ-9 Depression Total Score: 2 07/14/19 20 10:00 AM STULL INSTALLER documented as of this encounter Care Teams Documentation Lead Relationship Specialty Start Date End Date Luann Cox MD PCP - General Family Medicine 04/15/15 11/02/22 Josiane Pacheco MD [address] [place] [address] PCP - General Family Medicine 11/20/22 07/30/23 Darwin Marti MD [address] [place] [address] PCP - General Internal Medicine 07/31/23 Blair Paris MD 4 [facility] [address] [place] [address] Consulting Physician Orthopaedic Sports Medicine 07/31/23 Jose A Espinosa MD 2 [facility] [address] [place] [address] Consulting Physician Pain Medicine-Pain Management 07/31/23 02/08/24 Hao Silvestre MD [address] [address] Consulting Physician Neurological Surgery 07/31/23 Carlos Dailey MD #[address] [address] Consulting Physician Colon and Rectal Surgery 10/26/23 Saida Mckeon APRN, PRODUCTION SUPV #2 [place] [address] Nurse Practitioner Gastroenterology 10/26/23 Jessenia Ward APRN, AEROBICS TEACHER #[address] [place] [address] Nurse Practitioner Neurology 11/17/23 Hao Silvestre MD [address] [address] Consulting Physician Neurological Surgery 02/09/2401/27 Dominic Wang MD #2 [place] [address] Consulting Physician Pain Medicine-Pain Management 02/09/24 Butch Muñiz MD #2 [place] [address] Consulting Physician Neurology 02/23/24 documented as of this encounter
--- OUTSIDE RECORDS SUMMARY | 2025-03-06 12:47 | XMS_ITS | Encounter Summary ---
Author Organization [facility] Address [address] [place] [address] Phone Care Team Providers Care Funeral Car Chauffeur Name Role Phone Luann Cox MD Primary Care Provider + [phone] Josiane Pacheco MD Primary Care Provider + [phone] Blair Paris MD Unavailable +[phone] Jose A Espinosa MD Unavailable +[phone] Darwin Marti MD Primary Care Provider +[phone] Hao Silvestre MD Unavailable +[phone] Carlos Dailey MD Unavailable Saida Mckeon APRN, TROUT FARMER Unavailable Jessenia Ward APRN, LABORATORY VETERINARIAN Unavailable + [phone] Hao Silvestre MD Unavailable +[phone] Dominic Wang MD Unavailable [phone] Butch Muñiz MD Unavailable +[phone] Reason for Visit * Reason Comments Medication Refill Encounter Details Date Type Department Care Team (Late st Contact Info) Description 10/06/2020 Refill [facility] [address] [place] [address] Luann Cox MD [address] [place] [address] Medication Refill Social History Tobacco [...] COVID-19? No / Unsure 09/06/2020 11:36 AM FOOD SPECIALIST documented as of this encounter Miscellaneous Notes [...] Spinal stenosis, lumbar region, with neurogenic claudication [facility] Luann Cox MD 2 months ago Uncomplicated asthma [facility] Luann Cox MD 9 months ago Essential hypertension [facility] Luann Cox MD 1 year ago Essential hypertension [facility] Luann Cox MD 1 year ago Essential hypertension [facility] Luann Cox MD Upcoming Appointments Future Appointments In 5 months Luann Cox MD [facility] - Recent and Past Visits Recent Visits Date Type Provider Dept 09/06/20 Office Visit Luann Cox MD [facility] 07/24/20 Office Visit Luann Cox MD [facility] 01/12/20 Office Visit Luann Cox MD [facility] 07/14/19 Office Visit Luann Cox MD [facility] Showing recent visits within past 460 days [...] Spinal stenosis, lumbar region, with neurogenic claudication [facility] MD 2 months ago Uncomplicated asthma [facility] Luann Cox MD 9 months ago Essential hypertension [facility] Luann Cox MD 1 year ago Essential hypertension [facility] Luann Cox MD 1 year ago Essential [facility] Upcoming Appointments Future Appointments In 5 months Luann Cox MD [facility] - Recent and Past Visits Recent Visits Date Type Provider Dept 09/06/20 Office Visit Luann Cox MD [facility] 07/24/20 Office Visit Luann Cox MD [facility] 01/12/20 Office Visit Luann Cox MD [facility] 07/14/19 Office Visit Luann Cox MD [facility] Showing recent visits within past 460 days [...] Description 03/09/2025 2:30 PM CDT [facility] [place] [address] Juan Shrestha MD #[address] [address] 04/21/2025 11:00 AM CDT Office Visit [facility] #2 [place] [address] Jessenia Ward APRN, LABORATORY VETERINARIAN [address] [place] [address] documented as of this encounter Visit Diagnoses Diagnosis Gastroesophageal reflux disease Esophageal reflux documented in this encounter Additional Health Concerns Infection Onset Date Last Indicated Resolved Time ESBL 08/16/2018 08/16/2018 09/28/2023 9:03 AM CDT COVID - 19 03/09/2023 03/09/2023 03/19/2023 12:1 6 AM CDT Respiratory Rule-Out 03/09/2023 03/09/2023 023 2:09 AM CDT COVID - 19 05/07/2023 05/07/2023 05/07/2023 9:50 AM FOOD SPECIALIST COVID - 19 Confirmed 05/07/2023 05/07/2023 023 12:16 AM FOOD SPECIALIST C. difficile Rule-Out 09/24/2023 09/24/20232023 3:41 PM CDT COVID - 19 09/24/2023 09/24/2023 09/24/2023 11:3 2 AM CDT C. difficile Rule-Out 09/27/2023 09/27/20232023 2:13 PM CDT COVID - 19 02/23/2024 02/23/2024 02/23/2024 11:2 8 AM CDT Respiratory Rule-Out 02/23/2024 02/23/2024 024 11:30 AM CDT Assessment Noted Time PHQ-9 Depression Total Score: 2 07/14/19 20 10:00 AM FOOD SPECIALIST documented as of this encounter Care Teams Funeral Car Chauffeur Relationship Specialty Start Date End Date Luann Cox MD PCP - General Family Medicine 04/15/15 11/02/22 Josiane Pacheco MD [address] [place] [address] PCP - General Family Medicine 11/20/22 07/30/23 Darwin Marti MD [address] [place] [address] PCP - General Internal Medicine 07/31/23 Blair Paris MD 4 [facility] [address] [place] [address] Consulting Physician Orthopaedic Sports Medicine 07/31/23 Jose A Espinosa MD [address] [facility] [address] [place] [address] Consulting Physician Pain Medicine-Pain Management 07/31/23 02/08/24 Hao Silvestre MD [address] [address] Consulting Physician Neurological Surgery 07/31/23 Carlos Dailey MD #[address] [address] Consulting Physician Colon and Rectal Surgery 10/26/23 Saida Mckeon APRN, TROUT FARMER [address] [place] [address] Nurse Practitioner Gastroenterology 10/26/23 Jessenia Ward, MAILHOUSE OPERATOR, LABORATORY VETERINARIAN [address] [place] [address] Nurse Practitioner Neurology 11/17/23 Hao Silvestre MD [address] [address] Consulting Physician Neurological Surgery 02/09/2401/27 Dominic Wang MD #2 [place] [address] Consulting Physician Pain Medicine-Pain Management 02/09/24 Butch Muñiz MD #2 [place] [address] Consulting Physician Neurology 02/23/24 documented as of this encounter
--- OUTSIDE RECORDS SUMMARY | 2025-03-06 12:47 | XMS_ITS | Encounter Summary ---
Author Organization [facility] Address [address] [place] [address] Phone Care Team Providers Care Financial Sales Representative Name Role Phone Josiane Pacheco MD Primary Care Provider [phone] Blair Paris MD Unavailable [phone] Jose A Espinosa MD Unavailable [phone] Darwin Marti MD Primary Care Provider +[phone] Hao Silvestre MD Unavailable [phone] Carlos Dailey MD Unavailable Saida Mckeon APRN, PROFESSOR OF ENVIRONMENTAL ENGINEERING Unavailable Jessenia Ward APRN, DYER ASSISTANT Unavailable + [phone] Hao Silvestre MD Unavailable Dominic Wang MD Unavailable [phone] Butch Muñiz MD Unavailable Reason for Visit * Reason Comments Medication Refill Encounter Details Date Type Department Care Team (Late st Contact Info) Description 01/18[facility]20[facility] [place] [address] [place] [address] Josiane Pacheco MD [address] [place] [address] Medication Refill Social History Tobacco Use Types [...] Description 03/09/2025 2:30 PM CDT Office Visit [facility] - [facility] - [place] #2 [place] [address] Juan Shrestha MD [address] [address] 04/21/2025 11:00 AM CDT Office Visit [facility] - Neurology - [place] [address] [place] [address] Jessenia Ward, EGG SETTER, DYER ASSISTANT [address] [place] [address] documented as of this encounter Visit Diagnoses [...] - 19 05/07/2023 05/07/2023 05/07/2023 9:50 AM DEVELOPMENT ARCHITECT COVID - 19 Confirmed 05/07/2023 05/07/2023 023 12:16 AM DEVELOPMENT ARCHITECT C. difficile Rule-Out 09/24/2023 09/24/20232023 3:41 PM CDT COVID - 19 09/24/2023 09/24/2023 09/24/2023 11:3 2 AM CDT C. difficile Rule-Out 09/27/2023 09/27/20232023 2:13 PM CDT COVID - 19 02/23/2024 02/23/2024 02/23/2024 11:2 8 AM CDT Respiratory Rule-Out 02/23/2024 02/23/2024 024 11:30 AM CDT Assessment Noted Time PHQ-9 Depression Total Score: 2 07/14/19 20 10:00 AM DEVELOPMENT ARCHITECT documented as of this encounter Care Teams Financial Sales Representative Relationship Specialty Start Date End Date Josiane Pacheco MD [address] [place] [address] PCP - General Family Medicine 11/20/22 07/30/23 Darwin Marti MD [address] [place] [address] PCP - General Internal Medicine 07/31/23 Blair Paris MD 4 [facility] [address] [place] [address] Consulting Physician Orthopaedic Sports Medicine 07/31/23 Jose A Espinosa MD 2 [facility] [address] [place] [address] Consulting Physician Pain Medicine-Pain Management 07/31/23 02/08/24 Hao Silvestre MD [address] [place] [address] Consulting Physician Neurological Surgery 07/31/23 Carlos Dailey MD #[address] [address] Consulting Physician Colon and Rectal Surgery 10/26/23 Saida Mckeon APRN, PROFESSOR OF ENVIRONMENTAL ENGINEERING #2 [place] [address] Nurse Practitioner Gastroenterology 10/26/23 Jessenia Ward, EGG SETTER, DYER ASSISTANT [address] [place] [address] Nurse Practitioner Neurology 11/17/23 Hao Silvestre MD [address] [address] Consulting Physician Neurological Surgery 02/09/2401/27 Dominic Wang MD #2 [place] [address] Consulting Physician Pain Medicine-Pain Management 02/09/24 Butch Muñiz MD #2 [place] [address] Consulting Physician Neurology 02/23/24 documented as of this encounter
--- OUTSIDE RECORDS SUMMARY | 2025-03-06 14:13 | XMS_ITS | Encounter Summary ---
Author Organization [facility] Address [address] [place] [address] Phone Care Team Providers Care Motor Electrician Name Role Phone Luann Cox MD Primary Care Provider + [phone] Josiane Pacheco MD Primary Care Provider + [phone] Blair Paris MD Unavailable [phone] Jose A Espinosa MD Unavailable +[phone] Darwin Marti MD Primary Care Provider +[phone] Hao Silvestre MD Unavailable [phone] Carlos Dailey MD Unavailable Saida Mckeon APRN, TEA LEAF READER Unavailable Jessenia Ward APRN, DIRECTOR OF PUBLICATIONS Unavailable +- [phone] Hao Silvestre MD Unavailable +[phone] Dominic Wang MD Unavailable [phone] Butch Muñiz MD Unavailable +[phone] Reason for Visit * Reason Comments Medication Refill Encounter Details Date Type Department Care Team (Late st Contact Info) Description 03/01/2022 Refill [facility] - Primary Care - [place] [address] [place] [address] Luann Cox MD [address] [place] [address] Medication Refill Social History Tobacco [...] Dept 12/16/21 Office Visit [facility] 06/27/21 Office Visit Luann [facility] 03/07/21 Office Visit Luann Cox MD [facility] [employer] Showing recent visits within past 365 days and meeting all other requirements Future Appointments Date Type Provider Dept 05/23/22 Appointment [place] [facility] 05/29/22 Appointment Luann Cox MD [facility] Showing future appointments within next 90 [...] Dept 12/16/21 Office Visit Luann Cox MD [facility] 06/27/21 Office Visit Luann Cox MD [facility] 03/07/21 Office Visit Luann Cox MD [facility] [employer] Showing recent visits within past 365 days and meeting all other requirements Future Appointments Date Type Provider Dept 05/23/22 Appointment Lab, [place] [facility] 05/29/22 Appointment Luann Cox MD [facility] Showing future appointments within next 90 days and meeting all other requirements documented in this encounter Plan of Treatment Upcoming Encounters Date Type Department Care Team (Late st Contact Info) Description 03/09/2025 2:30 PM CDT Office Visit [facility] - Family Medicine [facility] #[address] [place] [address] Juan Shrestha MD #[address] [address] 04/21/2025 11:00 AM CDT Office Visit [facility] - Neurology [facility] #2 [place] [address] Jessenia Ward APRN, DIRECTOR OF PUBLICATIONS [address] [place] [address] documented as of this encounter Visit Diagnoses Diagnosis Neuropathy Mononeuritis of unspecified site documented in this encounter Additional Health Concerns Infection Onset Date Last Indicated Resolved Time ESBL 08/16/2018 08/16/2018 09/28/2023 9:03 AM CDT COVID - 19 03/09/2023 03/09/2023 03/19/2023 12:1 6 AM CDT Respiratory Rule-Out 03/09/2023 03/09/2023 023 2:09 AM CDT COVID - 19 05/07/2023 05/07/2023 05/07/2023 9:50 AM RESPITE PROVIDER COVID - 19 Confirmed 05/07/2023 05/07/2023 023 12:16 AM RESPITE PROVIDER C. difficile Rule-Out 09/24/2023 09/24/20232023 3:41 PM CDT COVID - 19 09/24/2023 09/24/202309/2309/24/2023 11:3 2 AM CDT C. difficile Rule-Out 09/27/2023 09/27/20232023 2:13 PM CDT COVID - 19 02/23/2024 02/23/2024 02/23/2024 11:2 8 AM CDT Respiratory Rule-Out 02/23/2024 02/23/2024 024 11:30 AM CDT Assessment Noted Time PHQ-9 Depression Total Score: 2 07/14/19 20 10:00 AM RESPITE PROVIDER documented as of this encounter Care Teams Motor Electrician Relationship Specialty Start Date End Date Luann Cox MD PCP - General Family Medicine 04/15/15 11/02/22 Josiane Pacheco MD [address] [place] [address] PCP - General Family Medicine 11/20/22 07/30/23 Darwin Marti MD [address] [place] [address] PCP - General Internal Medicine 07/31/23 Blair Paris MD 4 [facility] , [address] [place] [address] Consulting Physician Orthopaedic Sports Medicine 07/31/23 Jose A Epsinosa MD 2 [facility] [address] [place] [address] Consulting Physician Pain Medicine-Pain Management 07/31/23 02/08/24 Hao Silvestre MD [address] [address] Consulting Physician Neurological Surgery 07/31/23 Carlos Dailey MD #[address] [address] Consulting Physician Colon and Rectal Surgery 10/26/23 Saida Mckeon APRN, TEA LEAF READER #[address] [place] [address] Nurse Practitioner Gastroenterology 10/26/23 Jessenia Ward APRN, DIRECTOR OF PUBLICATIONS #[address] [place] [address] Nurse Practitioner Neurology 11/17/23 Hao Silvestre MD [address] [address] Consulting Physician Neurological Surgery 02/09/2401/27 Dominic Wang MD #2 [place] [address] Consulting Physician Pain Medicine-Pain Management 02/09/24 Butch Muñiz MD #[address] [place] [address] Consulting Physician Neurology 02/23/24 documented as of this encounter
--- OUTSIDE RECORDS SUMMARY | 2025-03-06 14:13 | XMS_ITS | Clinical Summary ---
Author Organization [facility] Medical Office Building B Address [address] [place] [address] Care Team Providers Care Laundry Helper Name Role Phone Luann Cox MD [...] Vomiting, Penicillins Other (See comments) Reaction: Unknown, [place] Sulfa (Sulfonamide Antibiotics) Other (See comments) Reaction: [...] in the evening 0 0 5 Active qrqwzqdy-swgm-y in-folic acid (multivitamin-i vqq-cjtjhdyc-sx lic acid) 3,500-18-0.4 unit-mg-mg tablet,chewable 0 0 [...] pain without sciatica 07/04/2022 Lumbar radiculopathy 07/04/2022 halfway current use of 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 3 Insomnia secondary [...] Other Medical Hysterectomy 30 years ago.; Comments: [facility] 02/20/2015 - Hx Other Medical Breast tumors 2 8 years ago.; Comments: [facility] 02/20/2015 - Hx Other Medical Right knee A&A 03-07-15.; Comments: [facility] 03/20/2015 - Hx Other Medical Right total kne e replacement 06-27-15.; Comments: [facility] 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 [...] on file Legal Sex Female 6:41 PM MARBLE CEILING INSTALLER Gender Identity Not on file Sexual Orientation Not on file Obstetrics History Last Filed Vital Signs Vital Sign Reading Time Taken Comments Blood Pressure 132/93 07/14/2024 11:06 AM MARBLE CEILING INSTALLER Pulse 99 07/14/2024 11:06 AM MARBLE CEILING INSTALLER Temperature 36.9 C (98.4 F) 06/30/2024 8:25 AM MARBLE CEILING INSTALLER Respiratory Rate 0 06/30/2024 8:30 AM MARBLE CEILING INSTALLER Oxygen Saturation 99% 06/30/2024 8:25 AM MARBLE CEILING INSTALLER Inhaled Oxygen Concentration - - Weight 75.8 kg (167 lb) 07/14/2024 11:06 AM MARBLE CEILING INSTALLER Height 162.6 cm (5' 4) 07/14/2024 11:06 AM MARBLE CEILING INSTALLER Body Mass Index 28.67 07/14/2024 11:06 AM MARBLE CEILING INSTALLER Plan of Treatment Health Maintenance Due Date [...] PM CDT DEXA Bone Density Axial Acc#: [id number] DATE OF EXAM: Apr 23 2017 EXAM: [...] WYLIE Requesting Attending Fax: -- Attending ID: [id number] Requesting ID: [id number] Report To 1 ID: [id number] Report To 1 Name: JAY WYLIE Report To 1 FAX: -- NextGen Order #: [id number] Procedure Note Miscellaneous, Not In File - 04/23/2017 DEXA Bone Density Axial Acc#: [id number] DATE OF EXAM: Apr 23 2017 EXAM: [...] WYLIE Requesting Attending Fax: -- Attending ID: [id number] Requesting ID: [id number] Report To 1 ID: [id number] Report To 1 Name: JAY WYLIE Report To 1 FAX: -- [employer] Order #: [id number] Jay Wylie MD IMG DXA PROCEDURES Final R esult from Last 3 Months or Most Recently Relevant to Health Maintenance Insurance MEDICARE [facility] [place] [address] MEDICARE [facility] [place] [address] Care Teams Laundry Helper Relationship Specialty Start Date End Date Luann Cox MD PCP - General 05/08/09
--- OUTSIDE RECORDS SUMMARY | 2025-03-06 14:13 | XMS_ITS | Encounter Summary ---
Author Organization [facility] Address [address] [place] [address] Phone Care Team Providers Care Property Supervisor Name Role Phone Luann Cox MD Primary Care Provider + [phone] Josiane Pacheco MD Primary Care Provider + [phone] Blair Paris MD Unavailable [phone] Jose A Espinosa MD Unavailable [phone] Darwin Marti MD Primary Care Provider +[phone] Hao Silvestre MD Unavailable +[phone] Carlos Dailey MD Unavailable Saida Mckeon APRN, CREDENTIALER Unavailable Jessenia Ward APRN, PERFORMANCE IMPROVEMENT COORDINATOR Unavailable + [phone] Hao Silvestre MD Unavailable +[phone] Dominic Wang MD Unavailable [phone] Butch Muñiz MD Unavailable +[phone] Reason for Visit * Reason Comments Medication Refill Encounter Details Date Type Department Care Team (Late st Contact Info) Description 07/26/2021 Refill [facility] - Primary Care - [place] [address] [place] [address] Luann Cox MD [address] [place] [address] Medication Refill Social History Tobacco [...] COVID-19? No / Unsure 07/01/2021 11:16 AM PHOTOGRAPHIC SPOTTER documented as of this encounter Miscellaneous Notes * Telephone Encounter - Racquel Campos RN - 07/26/2021 9:30 AM PHOTOGRAPHIC SPOTTER Medication failed the protocol, provider to review [...] Road 03/07/21 Office Visit Luann Cox MD [facility] [address] 09/06/20 Office Visit Luann Cox MD [facility] Showing recent visits within past 365 days and meeting all other requirements Future Appointments Date Type Provider Dept 10/21/21 [facility] Showing future appointments within next 90 [...] Dept 06/27/21 Office Visit Luann Cox MD [facility] [address] 03/07/21 Office Visit Luann Cox MD [facility] [address] 09/06/20 Office Visit Luann Cox MD [facility] [place] [facility] Showing recent visits within past 365 days and meeting all other requirements Future Appointments Date Type Provider Dept 10/21/21 [facility] [place] [facility] Showing future appointments within next 90 [...] Dept 06/27/21 Office Visit Luann Cox MD [facility] 03/07/21 Office Visit Luann Cox MD [facility] 09/06/20 Office Visit Luann Cox MD [facility] Showing recent visits within past 365 days and meeting all other requirements Future Appointments Date Type Provider Dept 10/21/21 [facility] Showing future appointments within next 90 [...] Cox MD [facility] [place] [facility] 03/07/21 Office Visit Luann Cox MD [facility] 09/06/20 Office Visit Luann Cox MD [facility] [place] [facility] Showing recent visits within past 365 days and meeting all other requirements Future Appointments Date Type Provider Dept 10/21/21 [facility] Showing future appointments within next 90 days and meeting all other requirements OGRAPHIC SPOTTER documented in this encounter Plan of Treatment Upcoming Encounters Date Type Department Care Team (Late st Contact Info) Description 03/09/2025 2:30 PM CDT [facility] - [place] [address] [place] [address] Juan Shrestha MD #[address] [address] 04/21/2025 11:00 AM CDT [facility] - [place] #[address] [place] [address] Jessenia Ward APRN, PERFORMANCE IMPROVEMENT COORDINATOR #[address] [place] [address] documented as of this encounter Visit Diagnoses [...] - 19 05/07/2023 05/07/2023 05/07/2023 9:50 AM PHOTOGRAPHIC SPOTTER COVID - 19 Confirmed 05/07/2023 05/07/2023 023 12:16 AM PHOTOGRAPHIC SPOTTER C. difficile Rule-Out 09/24/2023 09/24/20232023 3:41 PM CDT COVID - 19 09/24/2023 09/24/2023 09/24/2023 11:3 2 AM CDT C. difficile Rule-Out 09/27/2023 09/27/20232023 2:13 PM CDT COVID - 19 02/23/2024 02/23/2024 02/23/2024 11:2 8 AM CDT Respiratory Rule-Out 02/23/2024 02/23/2024 024 11:30 AM CDT Assessment Noted Time PHQ-9 Depression Total Score: 2 07/14/19 20 10:00 AM PHOTOGRAPHIC SPOTTER documented as of this encounter Care Teams Property Supervisor Relationship Specialty Start Date End Date Luann Cox MD PCP - General Family Medicine 04/15/15 11/02/22 Josiane Pacheco MD [address] [place] [address] PCP - General Family Medicine 11/20/22 07/30/23 Darwin Marti MD [address] [place] [address] PCP - General Internal Medicine 07/31/23 Blair Paris MD 4 [facility] [address] [place] [address] Consulting Physician Orthopaedic Sports Medicine 07/31/23 Jose A Espinosa MD 2 [facility] [address] [place] [address] Consulting Physician Pain Medicine-Pain Management 07/31/23 02/08/24 Hao Silvestre MD [address] [address] Consulting Physician Neurological Surgery 07/31/23 Carlos Dailey MD #2 [facility] [address] [place] [address] Consulting Physician Colon and Rectal Surgery 10/26/23 Saida Mckeon APRN, CREDENTIALER [address] [place] [address] Nurse Practitioner Gastroenterology 10/26/23 Jessenia Ward APRN, [facility] #[address] [place] [address] Nurse Practitioner Neurology 11/17/23 Hao Silvestre MD [address] [address] Consulting Physician Neurological Surgery 02/09/2401/27 Dominic Wang MD #[address] [place] [address] Consulting Physician Pain Medicine-Pain Management 02/09/24 Butch Muñiz MD #[address] [place] [address] Consulting Physician Neurology 02/23/24 documented as of this encounter
--- OUTSIDE RECORDS SUMMARY | 2025-03-06 14:13 | XMS_ITS | Encounter Summary ---
Author Organization [facility] Address [address] [place] [address] Phone Care Team Providers Care Head Cook Name Role Phone Blair Paris MD Unavailable [phone] Jose A Espinosa MD Unavailable [phone] Darwin Marti MD Primary Care Provider [phone] Hao Silvestre MD Unavailable [phone] Carlos Dailey MD Unavailable Saida Mckeon APRN, CARGO CHECKER Unavailable Jessenia Ward APRN, [facility] Unavailable + [phone] Hao Silvestre MD Unavailable +[phone] Dominic Wang MD Unavailable Butch Muñiz MD Unavailable [phone] Reason for Visit * Reason Comments Medication Refill Encounter Details Date Type Department Care Team (Late Contact Info) Description 08/18/2023 [facility] - [facility] - [place] [address] [place] [address] Ranjeet Boston PAC [address] [place] [address] Medication Refill Social History Tobacco [...] - 08/18/2023 1:20 PM CST Duplicate Request E RIDER documented in this encounter Plan of Treatment Upcoming Encounters Date Type Department Care Team (Late Contact Info) Description 03/09/2025 2:30 PM CDT Office Visit [facility] - Family Medicine - [place] [address] [place] [address] Juan Shrestha MD [address] [address] 04/21/2025 11:00 AM CDT [facility] - Neurology - [place] [address] [place] [address] Jessenia Ward, LOAN SERVICE OFFICER, AIR AND MISSILE DEFENSE CREWMEMBER [address] [place] [address] documented as of this encounter Visit Diagnoses [...] Total Score: 0 07/31/19 24 12:53 PM BRAKE RIDER documented as of this encounter Care Teams Head Cook Relationship Specialty Start Date End Date Darwin Marti MD [address] [place] [address] PCP - General Internal Medicine 07/31/23 Blair Paris MD 4 [facility] , [address] [place] [address] Consulting Physician Orthopaedic Sports Medicine 07/31/23 Jose A Espinosa MD 2 [facility] [address] [place] [address] Consulting Physician Pain Medicine-Pain Management 07/31/23 02/08/24 Hao Silvestre MD [address] [address] Consulting Physician Neurological Surgery 07/31/23 Carlos Dailey MD #[address] [address] Consulting Physician Colon and Rectal Surgery 10/26/23 Saida Mckeon APRN, CARGO CHECKER [address] [place] [address] Nurse Practitioner Gastroenterology 10/26/23 Jessenia Ward APRN, AIR AND MISSILE DEFENSE CREWMEMBER [address] [place] [address] Nurse Practitioner Neurology 11/17/23 Hao Silvestre MD [address] [address] Consulting Physician Neurological Surgery 02/09/2401/27 Dominic Wang MD #[address] [place] [address] Consulting Physician Pain Medicine-Pain Management 02/09/24 Butch Muñiz MD #[address] [place] [address] Consulting Physician Neurology 02/23/24 documented as of this encounter
--- OUTSIDE RECORDS SUMMARY | 2025-03-06 14:13 | XMS_ITS | Encounter Summary ---
Author Organization [facility] Address [address] [place] [address] Phone Care Team Providers Care Information Security Systems Instructor Name Role Phone Josiane Pacheco MD Primary Care Provider [phone] Blair Paris MD Unavailable [phone] Jose A Espinosa MD Unavailable [phone] Darwin Marti MD Primary Care Provider +[phone] Hao Silvestre MD Unavailable [phone] Carlos Dailey MD Unavailable Saida Mckeon APRN, AMPLIFIER MECHANIC Unavailable Jessenia Ward APRN, INCIDENT RESPONSE CONSULTANT Unavailable + [phone] Hao Silvestre MD Unavailable Dominic Wang MD Unavailable [phone] Butch Muñiz MD Unavailable [phone] Reason for Visit * Reason Comments Medication Refill Encounter Details Date Type Department Care Team (Late Contact Info) Description 03/31/2023 Refill [facility] Primary Care - [place] [address] [place] [address] Josiane Pacheco MD [address] [place] [address] Medication Refill Social History Tobacco Use Types [...] [facility] - Family Medicine - [place] [address] [place] [address] Juan Shrestha MD [address] [address] 04/21/2025 11:00 AM CDT [facility] - [place] [address] [place] [address] Jessenia Ward APRN, INCIDENT RESPONSE CONSULTANT [address] [place] [address] documented as of this encounter Visit Diagnoses Diagnosis Spinal stenosis, lumbar region, with neurogenic claudication documented in this encounter Additional Health Concerns Infection Onset Date Last Indicated Resolved Time ESBL 08/16/2018 08/16/2018 09/28/2023 9:03 AM CDT COVID - 19 05/07/2023 05/07/2023 05/07/2023 9:50 AM DIAL REFINISHER COVID - 19 Confirmed 05/07/2023 05/07/2023 023 12:16 AM DIAL REFINISHER C. difficile Rule-Out 09/24/2023 09/24/20232023 3:41 PM CDT COVID - 19 09/24/2023 09/24/2023 09/24/2023 11:3 2 AM CDT C. difficile Rule-Out 09/27/2023 09/27/20232023 2:13 PM CDT COVID - 19 02/23/2024 02/23/2024 02/23/2024 11:2 8 AM CDT Respiratory Rule-Out 02/23/2024 02/23/2024 024 11:30 AM CDT Assessment Noted Time PHQ-9 Depression Total Score: 2 07/14/19 20 10:00 AM DIAL REFINISHER documented as of this encounter Care Teams Information Security Systems Instructor Relationship Specialty Start Date End Date Josiane Pacheco MD [address] [place] [address] PCP - General Family Medicine 11/20/22 07/30/23 Darwin Marti MD [address] [place] [address] PCP - General Internal Medicine 07/31/23 Blair Paris MD 4 [facility] [address] [place] [address] Consulting Physician Orthopaedic Sports Medicine 07/31/23 Jose A Espinosa MD 2 [facility] [address] [place] [address] Consulting Physician Pain Medicine-Pain Management 07/31/23 02/08/24 Hao Silvestre MD [address] [address] Consulting Physician Neurological Surgery 07/31/23 Carlos Dailey MD [address] [address] Consulting Physician Colon and Rectal Surgery 10/26/23 Saida Mckeon APRN, AMPLIFIER MECHANIC #[address] [place] [address] Nurse Practitioner Gastroenterology 10/26/23 Jessenia Ward APRN, INCIDENT RESPONSE CONSULTANT #[address] [place] [address] Nurse Practitioner Neurology 11/17/23 Hao Silvestre MD [address] [address] Consulting Physician Neurological Surgery 02/09/2401/27 Dominic Wang MD #[address] [place] [address] Consulting Physician Pain Medicine-Pain Management 02/09/24 Butch Muñiz MD #[address] [place] [address] Consulting Physician Neurology 02/23/24 documented as of this encounter
--- OUTSIDE RECORDS SUMMARY | 2025-03-06 14:13 | XMS_ITS | Encounter Summary ---
Author Organization [facility] Address [address] [place] [address] Phone Care Team Providers Care Card Folder Name Role Phone Luann Cox MD Primary Care Provider + [phone] Josiane Pacheco MD Primary Care Provider + [phone] Blair Paris MD Unavailable [phone] Jose A Espinosa MD Unavailable [phone] Darwin Marti MD Primary Care Provider [phone] Hao Silvestre MD Unavailable [phone] Carlos Dailey MD Unavailable Saida Mckeon APRN, HIGH SCHOOL FOREIGN LANGUAGE TUTOR Unavailable Jessenia Ward APRN, GEOCHEMICAL MANAGER Unavailable + [phone] Hao Silvestre MD Unavailable [phone] Dominic Wang MD Unavailable [phone] Butch Muñiz MD Unavailable [phone] Reason for Visit * Reason Comments Medication Refill Encounter Details Date Type Department Care Team (Late Contact Info) Description 04/24/2020 Refill [facility] Primary Care - [place] [address] [place] [address] Luann Cox MD [address] [place] [address] Medication Refill Social History Tobacco [...] [facility] - Family Medicine - [place] [address] [place] [address] Juan Shrestha MD [address] [address] 04/21/2025 11:00 AM CDT Office Visit [facility] - Neurology - [place] [address] [place] [address] Jessenia Ward APRN, GEOCHEMICAL MANAGER [address]2 [facility] [place] [address] documented as of this encounter Visit Diagnoses Diagnosis Hypothyroidism (acquired) Unspecified hypothyroidism Eczema, unspecified type documented in this encounter Additional Health Concerns Infection Onset Date Last Indicated Resolved Time ESBL 08/16/2018 08/16/2018 09/28/2023 9:03 AM CDT COVID - 19 03/09/2023 03/09/2023 03/19/2023 12:1 6 AM CDT Respiratory Rule-Out 03/09/2023 03/09/2023 023 2:09 AM CDT COVID - 19 05/07/2023 05/07/2023 05/07/2023 9:50 AM JOURNALISM INTERN COVID - 19 Confirmed 05/07/2023 05/07/2023 023 12:16 AM JOURNALISM INTERN C. difficile Rule-Out 09/24/2023 09/24/20232023 3:41 PM CDT COVID - 19 09/24/2023 09/24/2023 09/24/2023 11:3 2 AM CDT C. difficile Rule-Out 09/27/2023 09/27/20232023 2:13 PM CDT COVID - 19 02/23/2024 02/23/2024 02/23/2024 11:2 8 AM CDT Respiratory Rule-Out 02/23/2024 02/23/2024 024 11:30 AM CDT Assessment Noted Time PHQ-9 Depression Total Score: 2 07/14/19 20 10:00 AM JOURNALISM INTERN documented as of this encounter Care Teams Card Folder Relationship Specialty Start Date End Date Luann Cox MD PCP - General Family Medicine 04/15/15 11/02/22 Josiane Pacheco MD [address] [place] [address] PCP - General Family Medicine 11/20/22 07/30/23 Darwin Marti MD [address] [place] [address] PCP - General Internal Medicine 07/31/23 Blair Paris MD 4 [facility] [address] [place] [address] Consulting Physician Orthopaedic Sports Medicine 07/31/23 Jose A Espinosa MD 2 [facility] [address] [place] [address] Consulting Physician Pain Medicine-Pain Management 07/31/23 02/08/24 Hao Silvestre MD [address] [address] Consulting Physician Neurological Surgery 07/31/23 Carlos Dailey MD [address] [place] [facility] [address] [place] [address] Consulting Physician Colon and Rectal Surgery 10/26/23 Saida Mckeon APRN, HIGH SCHOOL FOREIGN LANGUAGE TUTOR [address] [place] [address] Nurse Practitioner Gastroenterology 10/26/23 Jessenia Ward APRN, GEOCHEMICAL MANAGER #[address] [place] [address] Nurse Practitioner Neurology 11/17/23 Hao Silvestre MD [address] [address] Consulting Physician Neurological Surgery 02/09/2401/27 Dominic Wang MD #[address] [place] [address] Consulting Physician Pain Medicine-Pain Management 02/09/24 Butch Muñiz MD #[address] [place] [address] Consulting Physician Neurology 02/23/24 documented as of this encounter
--- OUTSIDE RECORDS SUMMARY | 2025-03-06 14:13 | XMS_ITS | Encounter Summary ---
Author Organization [facility] Address [address] [place] [address] Phone Care Team Providers Care Paint Laboratory Technician Name Role Phone Luann Cox MD Primary Care Provider + [phone] Josiane Pacheco MD Primary Care Provider + [phone] Blair Paris MD Unavailable [phone] Jose A Espinosa MD Unavailable [phone] Darwin Marti MD Primary Care Provider [phone] Hao Silvestre MD Unavailable [phone] Carlos Dailey MD Unavailable Saida Mckeon APRN, CYLINDER MACHINE OPERATOR Unavailable Jessenia Ward APRN, OPERATING ENGINEER APPRENTICE Unavailable +- [phone] Hao Silvestre MD Unavailable Dominic Wang MD Unavailable [phone] Butch Muñiz MD Unavailable +[phone] Reason for Visit * Reason Comments Medication Refill Encounter Details Date Type Department Care Team (Late Contact Info) Description 11/11/[facility] - [place] [address] [place] [address] Luann Cox MD [address] [place] [address] Medication Refill Social History Tobacco [...] Description 03/09/2025 2:30 PM CDT Office Visit [facility] - Family Medicine - [place] [address] [place] [address] Juan Shrestha MD #[address] [address] 04/21/2025 11:00 AM CDT Office Visit [facility] - Neurology - [place] [address] [place] [address] Jessenia Ward APRN, OPERATING ENGINEER APPRENTICE #[address] [place] [address] documented as of this encounter Visit Diagnoses Diagnosis Essential hypertension Unspecified essential hypertension documented in this encounter Additional Health Concerns Infection Onset Date Last Indicated Resolved Time ESBL 08/16/2018 08/16/2018 09/28/2023 9:03 AM CDT COVID - 19 03/09/2023 03/09/2023 03/19/2023 12:1 6 AM CDT Respiratory Rule-Out 03/09/2023 03/09/2023 023 2:09 AM CDT COVID - 19 05/07/2023 05/07/2023 05/07/2023 9:50 AM STONE AND PLATE PREPARER APPRENTICE COVID - 19 Confirmed 05/07/2023 05/07/2023 023 12:16 AM STONE AND PLATE PREPARER APPRENTICE C. difficile Rule-Out 09/24/2023 09/24/20232023 3:41 PM CDT COVID - 19 09/24/2023 09/24/2023 09/24/2023 11:3 2 AM CDT C. difficile Rule-Out 09/27/2023 09/27/20232023 2:13 PM CDT COVID - 19 02/23/2024 02/23/2024 02/23/2024 11:2 8 AM CDT Respiratory Rule-Out 02/23/2024 02/23/2024 024 11:30 AM CDT Assessment Noted Time PHQ-9 Depression Total Score: 2 07/14/19 20 10:00 AM STONE AND PLATE PREPARER APPRENTICE documented as of this encounter Care Teams Paint Laboratory Technician Relationship Specialty Start Date End Date Luann Cox MD PCP - General Family Medicine 04/15/15 11/02/22 Josiane Pacheco MD [address] [place] [address] PCP - General Family Medicine 11/20/22 07/30/23 Darwin Marti MD [address] [place] [address] PCP - General Internal Medicine 07/31/23 Blair Paris MD 4 [facility] [address] [place] [address] Consulting Physician Orthopaedic Sports Medicine 07/31/23 Jose A Espinosa MD 2 [facility] [address] [place] [address] Consulting Physician Pain Medicine-Pain Management 07/31/23 02/08/24 Hao Silvestre MD [address] [place] [address] Consulting Physician Neurological Surgery 07/31/23 Carlos Dailey MD #[address] [address] Consulting Physician Colon and Rectal Surgery 10/26/23 Saida Mckeon APRN, CYLINDER MACHINE OPERATOR #[address] [place] [address] Nurse Practitioner Gastroenterology 10/26/23 Jessenia Ward APRN, OPERATING ENGINEER APPRENTICE #[address] [place] [address] Nurse Practitioner Neurology 11/17/23 Hao Silvestre MD [address] [address] Consulting Physician Neurological Surgery 02/09/2401/27 Dominic Wang MD #[address] [place] [address] Consulting Physician Pain Medicine-Pain Management 02/09/24 Butch Muñiz MD #[address] [place] [address] Consulting Physician Neurology 02/23/24 documented as of this encounter
--- OUTSIDE RECORDS SUMMARY | 2025-03-06 14:13 | XMS_ITS | Clinical Summary ---
Author Organization [facility] Address [address] [place] [address] Phone Care Team Providers Care Roof Tile Layer Name Role Phone Blair Paris MD Unavailable [phone] Darwin Marti MD Primary Care Provider [phone] Hao Silvestre MD Unavailable [phone] Carlos Dailey MD Unavailable Saida Mckeon APRN, MAMMOGRAPHER Unavailable Jessenia Ward APRN, MERCURY CRACKING TESTER Unavailable + [phone] Dominic Wang MD Unavailable [phone] Butch Muñiz MD Unavailable [phone] Allergies Active Allergy Reactions Criticality Noted Date Comments Cephalosporins Rash Medium 02/08/2020 Codeine Unknown Meperidine Hives 06/15/2015 Fish Allergy Unknown,Other (see Comments) 06/15/2015 Reaction: Unknown, Kiwi Extract Unknown 06/15/2015 Latex Itching 06/15/2015 Penicillins Unknown Ovid Extract Unknown 06/15/2015 Sulfa Antibiotics Unknown Tetanus [...] 11/20/2019 01/12/20 Syncope and collapse 11/20/2019 020 'Mjioa-nni-[id number]' infant wit h signs of malnutrition 01/11/2019 [...] Type Department Care Team Description 03/02/2025 Refill [facility] [place] [address] [place] [phone] Darwin Marti MD Medication Refill 03/01/2025 Telephone [facility] [place] [address] [place] [address] Juan Shrestha MD 02/20/2025 Travel 02/19/2025 [facility] [place] [address] [place] [phone] Cassie Lara APRN, MAMMOGRAPHER Medication Refill 02/18/2025 Travel 01/21/2025 [facility] [place] [address] [place] [address] Darwin Marti MD Medication Refill 12/07/2024 [facility] [place] [address] [place] [address] Darwin Marti MD Medication Refill from [...] 0.6 oz pur e alcohol) [facility] Utilities Answer Date Recorded In the past 12 months has [employer] electric, gas, oil, or water company threatened [...] week 08/25/2024 How often do you attend [facility] ch or nondenominational services? Never 08/25/2024 Do you belong to [...] Total Score - Questions 1-9 0 07/31 [facility] - [...] in a halfway (including now)? No 09/26/2023 Housing Stability Vital Sign Answer Matt e Recorded In the last 12 months, was t here a time when you were not able to pay the mortgage or rent on time? No 08/25/2024 Number of Times Moved in the Last Year Not on fi le 08/25/2024 At any time in the past [address] [facility], were you homeless or living in a halfway (including now)? No 08/25/2024 Sexually Active Control [...] 74.4 kg (164 lb) 08/25/2024 2:18 PM INSPECTOR MISSILE Height 162.6 cm (5' 4) 08/25/2024 2:18 PM INSPECTOR MISSILE Body Mass Index 28.15 08/25/2024 2:18 PM INSPECTOR MISSILE Plan of Treatment Upcoming Encounters Date Type Department Care Team (Late st Contact Info) Description 03/09/2025 2:30 PM CDT Office Visit [facility] - Family Medicine - [place] [address] [place] [address] Juan Shrestha MD [address] [address] 04/21/2025 11:00 AM CDT Office Visit [facility] - Neurology - [place] [address] [place] [address] Jessenia Ward APRN, MERCURY CRACKING TESTER [address] [place] [address] Health Maintenance Due Date Last Done Comments [...] Immunization Discontinued Medical Devices Implanted Type Area Open Hearth Stockyard Supervisor Device Identifier Shelf Expiration Date Model / Serial / Lot Bsplt Tib Trthln 3 Kn Prm Beaded Prpt - [id number] Implanted:Qty: 1 on 06/27/2015 by [facility] IMPLANT Right: Knee GISELA / OR[employer] 01/27/2020 5526-B-30 0 / / [id number] Ins Tib 3 9mm Kn X3 Cndrl Stab Trthln - [id number] Implanted:Qty: 1 on 06/27/2015 by [facility]ji [facility] IMPLANT Right: Knee [employer] / ORTH[employer] 01/27/2020 5531-G-30 9 / / [id number] Bioinductive Arthroscopic Generation 3 Medium - [id number] Implanted:Qty: 1 on 11/30/2017 by Blair Paris [facility] IMPLANT Left: Shoulder Quiñones [employer] 10/27/2019 2169-2 / 2169-2 / [id number] Tendon Staple Implant - [id number] Implanted:Qty: 1 on 11/30/2017 by Blair [facility] IMPLANT Left: Shoulder [employer] 05/18/2018 2504-1 / 2504-1 / [id number] [place] Bone 3 W/Arthroscopic Delivery System - [id number] Implanted:Qty: 1 on 11/30/2017 by Blair Paris MD at [facility] IMPLANT Left: Shoulder [employer] 06/30/2018 2503-A / 2503-A / [id number] Asym Metal Backed Patella Implanted:Qty: 1 on 06/27/2015 by Benji Dickey MD at [facility] Right: Knee [employer]ISELA / ORTHOPA[employer] 11/26/2019 [id number] / / [id number] Cruciate Retaining Femoral Implanted:Qty: 1 on 06/27/2015 by Benji Dickey MD at [facility] Right: Knee GISELA / [...] HEPATITIS C ANTIBODY Routine 07/31/2023 1:37 PM INSPECTOR MISSILE Encounter for hepatitis C screening test for low risk patient [facility] BONE DENSITOMETRY AXIAL SKELETON Routine 08/09/2021 9:35 AM INSPECTOR MISSILE Postmenopausal [facility] DIAG BILATERAL DIGITAL W CAD W [...] DIAGNOSTIC ORDERABLES Final Result Performing Organization Address [facility]/ZIP Co de Phone Number SCAN * NEUROSURGY CONSULT (01/25/2025 12:00 AM CDT) 01/25/2025 us Provider Scan GENERIC SCAN ORDERS CONSULT Sindhu l Result Performing Organization Address City/[facility]/ZIP Co de Phone Number SCAN * NEUROSURGERY PROCEDURE (01/10/2025 12:00 AM CDT) 01/10/2025 us Provider Scan GEN ORDERS Final Result Performing Organization Address [facility]/ZIP Co de Phone Number SCAN * URINALYSIS (UA) RANDOM (12/29/2024 12:00 AM CDT) 12/29/2024 us Provider Scan URINE ORDERABLES Final Result Performing Organization Address [facility] de Phone Number SCAN * APTT (PTT) (12/29/2024 12:00 AM CDT) 12/29/2024 us Provider Scan HEMATOLOGY ORDERABLES Final Resu lt Performing Organization Address [facility] de Phone Number SCAN * PROTIME (PT) (PROTHROMBIN TIME) (12/29/2024 12:00 AM CDT) INR 0.9 SCAN 12/29/2024 us Provider Scan HEMATOLOGY ORDERABLES Final Resu lt Performing Organization Address [facility] de Phone Number SCAN * OUTPATIENT ABO & RH W/ ANTIBODY SCREEN (12/29/2024 12:00 AM CDT) 12/29/2024 us Provider Scan BLOOD BANK ORDERABLES Final Resu lt Performing Organization Address [facility] Phone Number SCAN * CULTURE, URINE (12/29/2024 12:00 AM CDT) 12/29/2024 us Provider Scan MICROBIOLOGY - GENERAL ORDERABLE S Final Result Performing Organization [facility] de Phone Number SCAN * COMPLETE BLOOD COUNT (CBC) WITH DIFF (12/29/2024 12:00 AM CDT) 12/29/2024 us Provider Scan HEMATOLOGY ORDERABLES Final Resu lt Performing Organization Address [facility] de Phone Number SCAN * BASIC METABOLIC PANEL W/ CALCIUM TOTAL (12/29/2024 12:00 AM CDT) 12/29/2024 us Provider Scan CHEMISTRY ORDERABLES Final Resul t Performing Organization Address City/[facility] Co de Phone Number SCAN * Stool, Occult Blood, Diagnostic (09/26/2023 11:05 AM CDT) OCCULT BLOOD DIAG Negative Negative 09/26/2023 11:15 AM CDT [facility] Stool STOOL SPECIMEN / Unknown Non-Phlebotomy Collection / Unknown 09/26/2023 11:05 AM CDT 09/26/2023 11:12 AM CDT us Roque Sewell Elsa SOLAR ENGINEER, MAMMOGRAPHER BODY FLUIDS & STOOLS OR DERABLES Final Result Performing Organization Address [facility] de Phone Number [facility] [address] [place] [address] * HEPATITIS C ANTIBODY (07/31/2023 1:37 PM INSPECTOR MISSILE) Pathologist [facility] hepatitis C antibody 0.06 <1 S/CO [place] [facility] ARCH [id number] B 07/31/2023 9:41 PM INSPECTOR MISSILE [facility] Comment: Signal/Cutoff ratio < 0.79 is Nondetected Signal/Cutoff ratio 0.80-0.99 is Grayzone Signal/Cutoff ratio > 0.99 is Detected Supplemental assays are recommended if signal/cutoff ratio is >/=1.00. Signal/cutoff ratio result >/= 5.00 is 97% predictive of positivity for recombinant immunoblot assay (RIBA) and will be reported to the [place] Department of Public [facility] as required. Blood Venipuncture / Unknown 07/31/2023 1:37 PM INSPECTOR MISSILE 07/31/2023 1:37 PM INSPECTOR MISSILE us Darwin Marti MD CHEMISTRY ORDERABLES Sindhu l Result Performing Organization Address City/[facility] Co de Phone Number [facility] [address] [place] [address], [place] * [facility] BONE DENSITOMETRY AXIAL SKELETON (08/09/2021 9:35 AM INSPECTOR MISSILE) Anatomical Region Laterality Modality BODY N/A Other 08/09/2021 10:0 9 AM INSPECTOR MISSILE Impressions 08/09/2021 10:12 AM INSPECTOR MISSILE IMPRESSION: Low bone mass Fracture risk assessment [...] of Osteoporosis (http://www.nof.org/professionals/clinical-guidelines) Narrative 08/09/2021 10:12 AM INSPECTOR MISSILE EXAM DESCRIPTION: [facility] BONE DENSITOMETRY AXIAL SKELETON REASON FOR STUDY: 71 y/o year old F with given history of screening. Open Hearth Stockyard Supervisor/Model: Green Momit (S/N [id number]) CLINICAL INFORMATION: Current height: 5 foot 3.5 [...] Blair Alcaraz M.D. AG: RHIANNON Report ID: [id number] Reading Location: [place] [address] Procedure Note Blair Alcaraz MD - 08/09/2021 EXAM DESCRIPTION: JAMIE BONE DENSITOMETRY AXIAL SKELETON REASON FOR STUDY: 71 y/o year old F with given history of screening. Open Hearth Stockyard Supervisor/Model: Green Momit (S/N [id number]) CLINICAL INFORMATION: Current height: 5 foot 3.5 [...] Blair Alcaraz M.D. AG: RHIANNON Report ID: [id number] Reading Location: [place] [address] IMPRESSION: Low bone mass Fracture risk assessment [...] to exams dated: 02/18/2018, 09/25/2016, and 04/25/2014 [facility]. BREAST TISSUE:The tissue of [...] signed by: Gracie Patel M.D. ll/:03/08/2020 11:16:23 Sort Operations Supervisor: Landy Vance)(Mag), [facility] letter sent: Normal Exam Reading location: [facility] OVERALL STUDY BIRADS: 1 Negative [...] to exams dated: 02/18/2018, 09/25/2016, and 04/25/2014 [facility]. BREAST TISSUE:The tissue of [...] signed by: Gracie Patel M.D. ll/:03/08/2020 11:16:23 Sort Operations Supervisor: Landy Vance)(M), [facility] letter sent: Normal Exam Reading location: [facility] OVERALL STUDY BIRADS: 1 Negative us Luann Cox MD IMG MAMMO ORDERABLES Final R esult * HM COLONOSCOPY (07/22/2012) us Any Lewis MD PROCEDURE/MINOR SURGIC AL ORDERABLES Final Result from Last 3 Months or Most Recently Relevant to Health Maintenance Insurance [facility]ICARE [facility] Advance Directives Documents on File Type Date Recorded Patient Cut Out Press Operator Expl anation POLST/POST/DC DNR 08/19/2018 9:34 AM polst 08/18/2018 Power of Electric Transfer Operator for Health Care 08/18/2018 1:08 PM POA-HC [...] measures to stabilize the patient. Care Teams Roof Tile Layer Relationship Specialty [place] [address] [place] [address] PCP - General Internal Medicine 07/31/23 Blair Paris MD [address] [place] [address], [address] [place] [address] Consulting Physician Orthopaedic Sports Medicine 07/31/23 Hao Silvestre MD [address] [place] [address] Consulting Physician Neurological Surgery 07/31/23 Carlos Dailey MD #[address] [address] Consulting Physician Colon and Rectal Surgery 10/26/23 Saida Mckeon APRN, MAMMOGRAPHER [address] [place] [address] Nurse Practitioner Gastroenterology 10/26/23 Jessenia Ward, SOLAR ENGINEER, MERCURY CRACKING TESTER [address] [place] [address] Nurse Practitioner Neurology 11/17/23 Dominic Wang MD [address] [place] [address] Consulting Physician Pain Medicine-Pain Management 02/09/24 Butch Muñiz MD [address] [place] [address] Consulting Physician Neurology 02/23/24
--- OUTSIDE RECORDS SUMMARY | 2025-03-06 14:13 | XMS_ITS | Encounter Summary ---
Author Organization [facility] Address [address] [place] [address] Phone Care Team Providers Care Concierge Receptionist Name Role Phone Luann Cox MD Primary Care Provider + [phone] Josiane Pacheco MD Primary Care Provider + [phone] Blair Paris MD Unavailable [phone] Jose A Espinosa MD Unavailable [phone] Darwin Marti MD Primary Care Provider [phone] Hao Silvestre MD Unavailable [phone] Carlos Dailey MD Unavailable Saida Mckeon APRN, CONTINUOUS WAVE OPERATOR Unavailable Jessenia Ward APRN, TOP LIFT CUTTER Unavailable +- [phone] Hao Silvestre MD Unavailable [phone] Dominic Wang MD Unavailable Butch Muñiz MD Unavailable [phone] Reason for Visit * Reason Comments Medication Refill Encounter Details Date Type Department Care Team ([facility] Contact Info) Description 12/12/2021 Refill [facility] [address] [place] [address] Luann Cox MD [address] [place] [address] Medication Refill Social History Tobacco [...] Upcoming Encounters Date Type Department Care Team ([facility] Contact Info) Description 03/09/2025 2:30 PM CDT Office Visit [facility] [place] [address] [place] [address] Juan Shrestha MD [address] [address] 04/21/2025 11:00 AM CDT [facility] [place] [address] [place] [address] Jessenia Ward, AD COPY WRITER, TOP LIFT CUTTER [address] [place] [address] documented as of this encounter Visit Diagnoses Diagnosis Essential hypertension Unspecified essential hypertension documented in this encounter Additional Health Concerns Infection Onset Date Last Indicated Resolved Time ESBL 08/16/2018 08/16/2018 09/28/2023 9:03 AM CDT COVID - 19 03/09/2023 03/09/2023 03/19/2023 12:1 6 AM CDT Respiratory Rule-Out 03/09/2023 03/09/2023 023 2:09 AM CDT COVID - 19 05/07/2023 05/07/2023 05/07/2023 9:50 AM APPLICATION ADMINISTRATOR COVID - 19 Confirmed 05/07/2023 05/07/2023 023 12:16 AM APPLICATION ADMINISTRATOR C. difficile Rule-Out 09/24/2023 09/24/20232023 3:41 PM CDT COVID - 19 09/24/2023 09/24/2023 09/24/2023 11:3 2 AM CDT C. difficile Rule-Out 09/27/2023 09/27/20232023 2:13 PM CDT COVID - 19 02/23/2024 02/23/2024 02/23/2024 11:2 8 AM CDT Respiratory Rule-Out 02/23/2024 02/23/2024 024 11:30 AM CDT Assessment Noted Time PHQ-9 Depression Total Score: 2 01/16/20 20 10:00 AM APPLICATION ADMINISTRATOR documented as of this encounter Care Teams Concierge Receptionist Relationship Specialty Start Date End Date Luann Cox MD PCP - General Family Medicine 04/15/15 11/02/22 Josiane Pacheco MD [address] [place] [address] PCP - General Family Medicine 11/20/22 07/30/23 Darwin Marti MD [address] [place] [address] PCP - General Internal Medicine 07/31/23 Blair Paris MD 4 [facility] [address] [place] [address] Consulting Physician Orthopaedic Sports Medicine 07/31/23 Jose A Espinosa MD [address] [address] Consulting Physician Pain Medicine-Pain Management 07/31/23 02/08/24 Hao Silvestre MD [address] [address] Consulting Physician Neurological Surgery 07/31/23 Carlos Dailey MD #[address] [address] Consulting Physician Colon and Rectal Surgery 10/26/23 Saida Mckeon APRN, CONTINUOUS WAVE OPERATOR [address] [place] [address] Nurse Practitioner Gastroenterology 10/26/23 Jessenia Ward APRN, TOP LIFT CUTTER [address] [place] [address] Nurse Practitioner Neurology 11/17/23 Hao Silvestre MD [address] [address] Consulting Physician Neurological Surgery 02/09/2401/27 Dominic Wang MD [address] [place] [address] Consulting Physician Pain Medicine-Pain Management 02/09/24 Butch Muñiz MD [address] [place] [address] Consulting Physician Neurology 02/23/24 documented as of this encounter
--- OUTSIDE RECORDS SUMMARY | 2025-03-06 14:13 | XMS_ITS | Encounter Summary ---
Author Organization [facility] Address [address] [place] [address] Phone Care Team Providers Care Senior Environmental Practice Leader Name Role Phone Blair Paris MD Unavailable [phone] Jose A Espinosa MD Unavailable [phone] Darwin Marti MD Primary Care Provider +[phone] Hao Silvestre MD Unavailable [phone] Carlos Dailey MD Unavailable Saida Mckeon APRN, BOTTLE FEEDER Unavailable Jessenia Ward APRN, [facility] Unavailable + [phone] Hao Silvestre MD Unavailable [phone] Dominic Wang MD Unavailable [phone] Butch Muñiz MD Unavailable Reason for Visit * Reason Comments Medication Refill Encounter Details Date Type Department Care Team (Late Contact Info) Description [facility]20[facility] [place] [address] [place] [address] Josiane Pacheco MD [address] [place] [address] Medication Refill Social History Tobacco Use Types [...] Description 03/09/2025 2:30 PM CDT Office Visit [facility] - Family Medicine [facility] [address] [place] [address] Juan Shrestha MD #[address] [address] 04/21/2025 11:00 AM CDT Office Visit [facility] Neurology [facility] [address] [place] [address] Jessenia Ward, EXPEDITIONARY FORCE COMBAT SKILLS, TRUCK SWITCHER [address] [place] [address] documented as of this encounter Visit Diagnoses [...] Depression Total Score: 0 07/31/19 12:53 PM CONSTRUCTION ACCOUNTANT documented as of this encounter Care Teams Senior Environmental Practice Leader Relationship Specialty Start Date End Date Darwin Marti MD [address] [place] [address] PCP - General Internal Medicine 07/31/23 Blair Paris MD 4 [facility] [address] [place] [address] Consulting Physician Orthopaedic Sports Medicine 07/31/23 Jose A Espinosa MD 2 [facility] [address] [place] [address] Consulting Physician Pain Medicine-Pain Management 07/31/23 02/08/24 Hao Silvestre MD [address] [place] [address] Consulting Physician Neurological Surgery 07/31/23 Carlos Dailey MD [address] [facility] [address] [address] [address] Consulting Physician Colon and Rectal Surgery 10/26/23 Saida Mckeon APRN, BOTTLE FEEDER [address] [place] [address] Nurse Practitioner Gastroenterology 10/26/23 Jessenia Ward APRN, TRUCK SWITCHER [address] [place] [address] Nurse Practitioner Neurology 11/17/23 Hao Silvestre MD [address] [place] [address] Consulting Physician Neurological Surgery 02/09/2401/27 Dominic Wang MD #[address] [place] [address] Consulting Physician Pain Medicine-Pain Management 02/09/24 Butch Muñiz MD #[address] [place] [address] Consulting Physician Neurology 02/23/24 documented as of this encounter
--- OUTSIDE RECORDS SUMMARY | 2025-03-06 14:13 | XMS_ITS | Encounter Summary ---
Author Organization [facility] Address [address] [place] [address] Phone Care Team Providers Care Public Address Servicer Name Role Phone Luann Cox MD Primary Care Provider + [phone] Josiane Pacheco MD Primary Care Provider + [phone] Blair Paris MD Unavailable +[phone] Jose A Espinosa MD Unavailable [phone] Darwin Marti MD Primary Care Provider +[phone] Hao Silvestre MD Unavailable +[phone] Carlos Dailey MD Unavailable Saida Mckeon APRN, DIRECTOR OF BILLING Unavailable Jessenia Ward APRN, DIRECTOR EMERGENCY DEPARTMENT Unavailable + [phone] Hao Silvestre MD Unavailable +[phone] Dominic Wang MD Unavailable [phone] Butch Muñiz MD Unavailable +[phone] Reason for Visit * Reason Comments Medication Refill Encounter Details Date Type Department Care Team (Late st Contact Info) Description 10/06/2020 Refill [facility] [address] [place] [address] Luann Cox MD [address] [place] [address] Medication Refill Social History Tobacco [...] COVID-19? No / Unsure 09/06/2020 11:36 AM CLINICAL RESEARCH ASSOCIATE documented as of this encounter Miscellaneous Notes [...] Spinal stenosis, lumbar region, with neurogenic claudication [facility] Luann Cox MD 2 months ago Uncomplicated asthma [facility] Luann Cox MD 9 months ago Essential hypertension [facility] Luann Cox MD 1 year ago Essential hypertension [facility] Luann Cox MD 1 year ago Essential hypertension [facility] Luann Cox MD Upcoming Appointments Future Appointments In 5 months Luann Cox MD [facility] - Recent and Past Visits Recent Visits Date Type Provider Dept 09/06/20 Office Visit Luann Cox MD [facility] 07/24/20 Office Visit Luann Cox MD [facility] 01/12/20 Office Visit Luann Cox MD [facility] 07/14/19 Office Visit Luann Cox MD [facility] Showing recent visits within [...] Spinal stenosis, lumbar region, [facility] MD 2 months ago Uncomplicated asthma [facility] Luann Cox MD 9 months ago Essential hypertension [facility] Luann Cox MD 1 year ago Essential hypertension [facility] Luann Cox MD 1 year ago Essential [facility] Upcoming Appointments Future Appointments In 5 months Luann Cox MD [facility] - Recent and Past Visits Recent Visits Date Type Provider Dept 09/06/20 Office Visit Luann Cox MD [facility] 07/24/20 Office Visit Luann Cox MD [facility] 01/12/20 Office Visit Luann Cox MD [facility] 07/14/19 Office Visit Luann Cox MD [facility] Showing recent visits within [...] Description 03/09/2025 2:30 PM CDT Office Visit [facility] [address]2 [place] [address] Juan Shrestha MD #[address] [address] 04/21/2025 11:00 AM CDT Office Visit [facility] Neurology [facility] #2 [place] [address] Jessenia Ward APRN, DIRECTOR EMERGENCY DEPARTMENT [address] [place] [address] documented as of this encounter Visit Diagnoses Diagnosis Gastroesophageal reflux disease Esophageal reflux documented in this encounter Additional Health Concerns Infection Onset Date Last Indicated Resolved Time ESBL 08/16/2018 08/16/2018 09/28/2023 9:03 AM CDT COVID - 19 03/09/2023 03/09/2023 03/19/2023 12:1 6 AM CDT Respiratory Rule-Out 03/09/2023 03/09/2023 023 2:09 AM CDT COVID - 19 05/07/2023 05/07/2023 05/07/2023 9:50 AM CLINICAL RESEARCH ASSOCIATE COVID - 19 Confirmed 05/07/2023 05/07/2023 023 12:16 AM CLINICAL RESEARCH ASSOCIATE C. difficile Rule-Out 09/24/2023 09/24/20232023 3:41 PM CDT COVID - 19 09/24/2023 09/24/2023 09/24/2023 11:3 2 AM CDT C. difficile Rule-Out 09/27/2023 09/27/20232023 2:13 PM CDT COVID - 19 02/23/2024 02/23/2024 02/23/2024 11:2 8 AM CDT Respiratory Rule-Out 02/23/2024 02/23/2024 024 11:30 AM CDT Assessment Noted Time PHQ-9 Depression Total Score: 2 07/14/19 20 10:00 AM CLINICAL RESEARCH ASSOCIATE documented as of this encounter Care Teams Public Address Servicer Relationship Specialty Start Date End Date Luann Cox MD PCP - General Family Medicine 04/15/15 11/02/22 Josiane Pacheco MD [address] [place] [address] PCP - General Family Medicine 11/20/22 07/30/23 Darwin Marti MD [address] [place] [address] PCP - General Internal Medicine 07/31/23 Blair Paris MD 4 [facility] [address] [place] [address] Consulting Physician Orthopaedic Sports Medicine 07/31/23 Jose A Espinosa MD 2 [facility] [address] [place] [address] Consulting Physician Pain Medicine-Pain Management 07/31/23 02/08/24 Hao Silvestre MD [address] [address] Consulting Physician Neurological Surgery 07/31/23 Carlos Dailey MD #[address] [address] Consulting Physician Colon and Rectal Surgery 10/26/23 Saida Mckeon APRN, DIRECTOR OF BILLING #2 [place] [address] Nurse Practitioner Gastroenterology 10/26/23 Jessenia Ward, USER EXPERIENCE DEVELOPER, DIRECTOR EMERGENCY DEPARTMENT #2 [place] [address] Nurse Practitioner Neurology 11/17/23 Hao Silvestre MD [address] [address] Consulting Physician Neurological Surgery 02/09/2401/27 Dominic Wang MD #2 [place] [address] Consulting Physician Pain Medicine-Pain Management 02/09/24 Butch Muñiz MD #2 [place] [address] Consulting Physician Neurology 02/23/24 documented as of this encounter
--- OUTSIDE RECORDS SUMMARY | 2025-03-06 14:13 | XMS_ITS | Encounter Summary ---
Author Organization [facility] Address [address] [place] [address] Phone Care Team Providers Care Computer Console Operator Name Role Phone Blair Paris MD Unavailable +[phone] Jose A Espinosa MD Unavailable [phone] Darwin Marti MD Primary Care Provider [phone] Hao Silvestre MD Unavailable +[phone] Carlos Dailey MD Unavailable Saida Mckeon APRN, NEWSPAPER SUBSCRIPTION SOLICITOR Unavailable Jessenia Ward APRN, [facility] Unavailable + [phone] Hao Silvestre MD Unavailable +[phone] Dominic Wang MD Unavailable [phone] Butch Muñiz MD Unavailable Reason for Visit * Reason Comments Medication Refill Encounter Details Date Type Department Care Team (Late Contact Info) Description 08/[facility]20[facility] [place] [address] [place] [address] Ranjeet Boston PAC [address] [place] [address] Medication Refill Social History Tobacco [...] CST Patient need to get from neurosurgeon SOFTWARE SUPPORT documented in this encounter Plan of Treatment Upcoming Encounters Date Type Department Care Team (Late Contact Info) Description 03/09/2025 2:30 PM CDT Office Visit [facility] Medical [facility] - Family Medicine - [place] [address] [place] [address] Juan Shrestha MD [address] [address] 04/21/2025 11:00 AM CDT Office Visit [facility] - Neurology - [place] [address] [place] [address] Jessenia Ward, OPERATOR AND TRUCK DRIVER, RECORDS AND INFORMATION MANAGER [address] [place] [address] documented as of this encounter Visit Diagnoses [...] Depression Total Score: 0 07/31/19 12:53 PM VP SOFTWARE SUPPORT documented as of this encounter Care Teams Computer Console Operator Relationship Specialty Start Date End Date Darwin Marti MD [address] [place] [address] PCP - General Internal Medicine 07/31/23 Blair Paris MD 4 [facility] [address] [place] [address] Consulting Physician Orthopaedic Sports Medicine 07/31/23 Jose A Espinosa MD 2 [facility] [address] [place] [address] Consulting Physician Pain Medicine-Pain Management 07/31/23 02/08/24 Hao Silvestre MD 6800 [facility] [address] [place] [address] Consulting Physician Neurological Surgery 07/31/23 Carlos Dailey MD #[address] [address] Consulting Physician Colon and Rectal Surgery 10/26/23 Saida Mckeon APRN, NEWSPAPER SUBSCRIPTION SOLICITOR #2 [place] [address] Nurse Practitioner Gastroenterology 10/26/23 Jessenia Ward APRN, RECORDS AND INFORMATION MANAGER #[address] [place] [address] Nurse Practitioner Neurology 11/17/23 Hao Silvestre MD [address] [address] Consulting Physician Neurological Surgery 02/09/2401/27 Dominic Wang MD #2 [place] [address] Consulting Physician Pain Medicine-Pain Management 02/09/24 Butch Muñiz MD #[address] [place] [address] Consulting Physician Neurology 02/23/24 documented as of this encounter
--- OUTSIDE RECORDS SUMMARY | 2025-03-06 14:13 | XMS_ITS | Encounter Summary ---
Author Organization [facility] Address [address] [place] [address] Phone Care Team Providers Care Money Order Clerk Name Role Phone Josiane Pacheco MD Primary Care Provider [phone] Blair Paris MD Unavailable [phone] Jose A Espinosa MD Unavailable [phone] Darwin Marti MD Primary Care Provider [phone] Hao Silvestre MD Unavailable [phone] Carlos Dailey MD Unavailable Saida Mckeon APRN, QUALITY TESTER Unavailable Jessenia Ward APRN, GAUGER CHIEF Unavailable + [phone] Hao Silvestre MD Unavailable [phone] Dominic Wang MD Unavailable [phone] Butch Muñiz MD Unavailable [phone] Reason for Visit * Reason Comments Medication Refill Encounter Details Date Type Department Care Team (Late st Contact Info) Description [facility] [place] [address] [place] [address] Josiane Pacheco MD [address] [place] [address] Medication Refill Social History Tobacco Use Types [...] Description 03/09/2025 2:30 PM CDT Office Visit [facility] Medical Group - Family Medicine - [place] [address] [place] [address] Juan Shrestha MD [address] [address] 04/21/2025 11:00 AM CDT Office Visit [facility] Medical [facility] - Neurology - [place] [address] [place] [address] Jessenia Ward, BONDED STRUCTURES REPAIRER, GAUGER CHIEF [address] [place] [address] documented as of this encounter Visit Diagnoses [...] - 19 05/07/2023 05/07/2023 05/07/2023 9:50 AM HYPERBARIC TECH COVID - 19 Confirmed 05/07/2023 05/07/2023 023 12:16 AM HYPERBARIC TECH C. difficile Rule-Out 09/24/2023 09/24/20232023 3:41 PM CDT COVID - 19 09/24/2023 09/24/2023 09/24/2023 11:3 2 AM CDT C. difficile Rule-Out 09/27/2023 09/27/20232023 2:13 PM CDT COVID - 19 02/23/2024 02/23/2024 02/23/2024 11:2 8 AM CDT Respiratory Rule-Out 02/23/2024 02/23/2024 024 11:30 AM CDT Assessment Noted Time PHQ-9 Depression Total Score: 2 07/14/19 20 10:00 AM HYPERBARIC TECH documented as of this encounter Care Teams Money Order Clerk Relationship Specialty Start Date End Date Josiane Pacheco MD [address] [place] [address] PCP - General Family Medicine 11/20/22 07/30/23 Darwin Marti MD [address] [place] [address] PCP - General Internal Medicine 07/31/23 Blair Paris MD 4 [facility] [address] [place] [address] Consulting Physician Orthopaedic Sports Medicine 07/31/23 Jose A Espinosa MD 2 [facility] [address] [place] [address] Consulting Physician Pain Medicine-Pain Management 07/31/23 02/08/24 Hao Silvestre MD [address] [place] [address] Consulting Physician Neurological Surgery 07/31/23 Carlos Dailey MD #[address] [address] Consulting Physician Colon and Rectal Surgery 10/26/23 Saida Mckeon APRN, QUALITY TESTER #2 [place] [address] Nurse Practitioner Gastroenterology 10/26/23 Jessenia Ward, BONDED STRUCTURES REPAIRER, GAUGER CHIEF [address] [place] [address] Nurse Practitioner Neurology 11/17/23 Hao Silvestre MD [address] [address] Consulting Physician Neurological Surgery 02/09/2401/27 Dominic Wang MD #2 [place] [address] Consulting Physician Pain Medicine-Pain Management 02/09/24 Butch Muñiz MD #2 [place] [address] Consulting Physician Neurology 02/23/24 documented as of this encounter
--- OUTSIDE RECORDS SUMMARY | 2025-03-06 14:13 | XMS_ITS | Encounter Summary ---
Author Organization [facility] Address [address] [place] [address] Phone Care Team Providers Care Day Care Assistant Name Role Phone Luann Cox MD Primary Care Provider + [phone] Josiane Pacheco MD Primary Care Provider + [phone] Blair Paris MD Unavailable [phone] Jose A Espinosa MD Unavailable [phone] Darwin Marti MD Primary Care Provider [phone] Hao Silvestre MD Unavailable +[phone] Carlos Dailey MD Unavailable Saida Mckeon APRN, MANIFEST/ORDER ORGANIZER PRINT ORDERS Unavailable Jessenia Ward APRN, ROASTER HELPER Unavailable + [phone] Hao Silvestre MD Unavailable +[phone] Dominic Wang MD Unavailable [phone] Butch Muñiz MD Unavailable [phone] Reason for Visit * Reason Comments Medication Refill Encounter Details Date Type Department Care Team (Late st Contact Info) Description 04/29/2022 Refill [facility] - Primary Care - [place] [address] [place] [address] Luann Cox MD [address] [place] [address] Medication Refill Social History Tobacco [...] Dept 12/16/21 Office [facility] 06/27/21 Office Visit Luann Cox MD [facility] Showing recent visits within past 365 days and meeting all other requirements Future Appointments Date Type Provider Dept 05/23/22 Appointment [facility] [place] [facility] 05/29/22 Appointment Luann Cox MD [facility] Showing future appointments within next [...] Dept 12/16/21 Office Visit Luann Cox MD [facility] 06/27/21 Office Visit [facility] Showing recent visits within past 365 days and meeting all other requirements Future Appointments Date Type Provider Dept 05/23/22 Appointment [facility] [place] [facility] 05/29/22 Appointment Luann Cox MD [facility] Showing future appointments within next [...] Dept 12/16/21 Office Visit [facility] [employer] 06/27/21 Office Visit Luann [facility] [employer] Showing recent visits within past 365 days and meeting all other requirements Future Appointments Date Type Provider Dept 05/23/22 Appointment [facility] [place] [facility] [employer] 05/29/22 Appointment Luann Cox MD [facility] [employer] Showing future appointments within next 90 days [...] Dept 12/16/21 Office Visit [facility] [employer] 06/27/21 Office Visit Luann Cox MD [facility] [employer] Showing recent visits within past 365 days and meeting all other requirements Future Appointments Date Type Provider Dept 05/23/22 [facility] [place] [facility] [employer] 05/29/22 Appointment Luann Cox MD [facility] [address] Showing future appointments within next 90 days and meeting all other requirements documented in this encounter Plan of Treatment Upcoming Encounters Date Type Department Care Team (Late st Contact Info) Description 03/09/2025 2:30 PM CDT Office Visit [facility] Medical [facility] - Family Medicine - [place] [address] [place] [address] Juan Shrestha MD #[address] [address] 04/21/2025 11:00 AM CDT Office Visit [facility] Neurology [facility] #2 [place] [address] Jessenia Ward APRN, ROASTER HELPER [address] [place] [address] documented as of this encounter Visit Diagnoses [...] - 19 05/07/2023 05/07/2023 05/07/2023 9:50 AM CARDIOPULMONARY SUPERVISOR COVID - 19 Confirmed 05/07/2023 05/07/2023 023 12:16 AM CARDIOPULMONARY SUPERVISOR C. difficile Rule-Out 09/24/2023 09/24/20232023 3:41 PM CDT COVID - 19 09/24/2023 09/24/2023 09/24/2023 11:3 2 AM CDT C. difficile Rule-Out 09/27/2023 09/27/20232023 2:13 PM CDT COVID - 19 02/23/2024 02/23/2024 02/23/2024 11:2 8 AM CDT Respiratory Rule-Out 02/23/2024 02/23/2024 024 11:30 AM CDT Assessment Noted Time PHQ-9 Depression Total Score: 2 07/14/19 20 10:00 AM CARDIOPULMONARY SUPERVISOR documented as of this encounter Care Teams Day Care Assistant Relationship Specialty Start Date End Date Luann Cox MD PCP - General Family Medicine 04/15/15 11/02/22 Josiane Pacheco MD [address] [place] [address] PCP - General Family Medicine 11/20/22 07/30/23 Darwin Marti MD [address] [place] [address] PCP - General Internal Medicine 07/31/23 Blair Paris MD 4 [facility] [address] [place] [address] Consulting Physician Orthopaedic Sports Medicine 07/31/23 Jose A Espinosa MD 2 [facility] [address] [place] [address] Consulting Physician Pain Medicine-Pain Management 07/31/23 02/08/24 Hao Silvestre MD [address] [address] Consulting Physician Neurological Surgery 07/31/23 Carlos Dailey MD #2 [facility] [address] [place] [address] Consulting Physician Colon and Rectal Surgery 10/26/23 Saida Mckeon APRN, [facility] #[address] [place] [address] Nurse Practitioner Gastroenterology 10/26/23 Jessenia Ward APRN, [facility] #[address] [place] [address] Nurse Practitioner Neurology 11/17/23 Hao Silvestre MD [address] [address] Consulting Physician Neurological Surgery 02/09/2401/27 Dominic Wang MD #2 [place] [address] Consulting Physician Pain Medicine-Pain Management 02/09/24 Butch Muñiz MD #2 [place] [address] Consulting Physician Neurology 02/23/24 documented as of this encounter
--- OUTSIDE RECORDS SUMMARY | 2025-03-06 14:13 | XMS_ITS | Encounter Summary ---
Author Organization [facility] Address [address] [place] [address] Phone Care Team Providers Care Gas Station Operator Name Role Phone Blair Paris MD Unavailable [phone] Darwin Marti MD Primary Care Provider + [phone] Hao Silvestre MD Unavailable [phone] Carlos Dailey MD Unavailable Saida Mckeon APRN, KEY OPERATOR Unavailable Jessenia Ward APRN, RESEARCH PHARMACIST Unavailable + [phone] Dominic Wang MD Unavailable [phone] Butch Muñiz MD Unavailable [phone] Reason for Visit * Reason Comments Medication Refill Encounter Details Date Type Department Care Team (Late st Contact Info) Description 03/04/2024 Refill [facility] - Primary Care - [place] [address] [place] [address] Darwin Marti MD [address] [place] [address] Medication Refill Social History Tobacco Use Types Packs/Day Years Used Date Smoking Tobacco: Former Cigarettes 2 41.8 1 964 - 04/09/2005 Smokeless Tobacco: Never Alcohol Use Standard Drinks/Week Comments No 0 (1 standard drink = 0.6 oz pur e alcohol) [facility] Utilities Answer Date Recorded In the [...] often do you attend chur ch or nondenominational services? Never 09/26/2023 Do you belong to any clubs o r organizations such as confucianist groups, unions, fraternal or athletic groups, or [...] Answer Date Recorded PHQ-2 Score 2 07/14/2019 [facility] Occupat ional Health - Occupational Stress [...] place to sleep or slept in a usp (including now)? No 09/26/2023 Sexually Active Control [...] Description 03/09/2025 2:30 PM CDT Office Visit [facility] Medical [facility] - Family Medicine - [place] [address] [place] [address] Juan Shrestha MD #[address] [address] 04/21/2025 11:00 AM CDT Office Visit [facility] - Neurology - [place] #2 [place] [address] Jessenia Ward APRN, RESEARCH PHARMACIST #[address] [place] [address] documented as of this encounter Visit Diagnoses Not on filedocumented in this encounter Additional Health Concerns Assessment Noted Time PHQ-9 Depression Total Score: 0 07/31/19 24 12:53 PM PARTS CONTROL CLERK documented as of this encounter Care Teams Gas Station Operator Relationship Specialty Start Date End Date Darwin Marti MD [address] [place] [address] PCP - General Internal Medicine 07/31/23 Blair Paris MD [address] [place] [address], [address] [address] Consulting Physician Orthopaedic Sports Medicine 07/31/23 Hao Silvestre MD [address] [place] [id number] Consulting Physician Neurological Surgery 07/31/23 Carlos Dailey MD #[address] [address] Consulting Physician Colon and Rectal Surgery 10/26/23 Saida Mckeon APRN, KEY OPERATOR #[address] [place] [address] Nurse Practitioner Gastroenterology 10/26/23 Jessenia Ward APRN, RESEARCH PHARMACIST #[address] [place] [address] Nurse Practitioner Neurology 11/17/23 Dominic Wang MD #[address] [place] [address] Consulting Physician Pain Medicine-Pain Management 02/09/24 Butch Muñiz MD #2 [place] [address] Consulting Physician Neurology 02/23/24 documented as of this encounter
--- OUTSIDE RECORDS SUMMARY | 2025-03-06 14:13 | XMS_ITS | Encounter Summary ---
Author Organization [facility] Address [address] [place] [address] Phone Care Team Providers Care Nail Expert Name Role Phone Luann Cox MD Primary Care Provider + [phone] Josiane Pacheco MD Primary Care Provider + [phone] Blair [place] MD Unavailable +[phone] Jose A Espinosa MD Unavailable +[phone] Darwin Marti MD Primary Care Provider +[phone] Hao Silvestre MD Unavailable +[phone] Carlos Dailey MD Unavailable Saida Mckeon APRN, GRAPHICS INTERN Unavailable Jessenia Ward APRN, INTERNATIONAL TRADE TEACHER Unavailable + [phone] Hao Silvestre MD Unavailable +[phone] Dominic Wang MD Unavailable [phone] Butch Muñiz MD Unavailable +[phone] Reason for Visit * Reason Comments Medication Refill Encounter Details Date Type Department Care Team (Late st Contact Info) Description 11/01/2021 Refill [facility] - Primary Care - [place] [address] [place] [phone] Luann Cox MD [address] [place] [address] Medication Refill Social History Tobacco [...] Dept 06/27/21 Office Visit Luann Cox MD [facility] 03/07/21 Office Visit Luann Cox MD [facility] Showing recent visits within past 365 [...] Dept 06/27/21 Office Visit Luann Cox MD [facility] 03/07/21 Office Visit Luann Cox MD [facility] Showing recent visits within past 365 [...] Dept 06/27/21 Office Visit Luann Cox MD [facility] 03/07/21 Office Visit Luann Cox MD [facility] Showing recent visits within past 365 [...] Dept 06/27/21 Office Visit Luann Cox MD [facility] 03/07/21 Office Visit Luann Cox MD [facility] Showing recent visits within past 365 days [...] Dept 06/27/21 Office Visit Luann Cox MD [facility] [address] 03/07/21 Office Visit [facility] Showing recent visits within past [...] Description 03/09/2025 2:30 PM CDT Office Visit [facility] - Family Medicine [facility] [place] [address] Juan Shrestha MD #[address] [address] 04/21/2025 11:00 AM CDT Office Visit [facility] - Neurology [facility] [place] [address] Jessenia Ward APRN, INTERNATIONAL TRADE TEACHER [address] [place] [address] documented as of this encounter Visit Diagnoses [...] - 19 05/07/2023 05/07/2023 05/07/2023 9:50 AM LITERACY CONSULTANT COVID - 19 Confirmed 05/07/2023 05/07/2023 023 12:16 AM LITERACY CONSULTANT C. difficile Rule-Out 09/24/2023 09/24/20232023 3:41 PM CDT COVID - 19 09/24/2023 09/24/2023 09/24/2023 11:3 2 AM CDT C. difficile Rule-Out 09/27/2023 09/27/20232023 2:13 PM CDT COVID - 19 02/23/2024 02/23/2024 02/23/2024 11:2 8 AM CDT Respiratory Rule-Out 02/23/2024 02/23/2024 024 11:30 AM CDT Assessment Noted Time PHQ-9 Depression Total Score: 2 07/14/19 20 10:00 AM LITERACY CONSULTANT documented as of this encounter Care Teams Nail Expert Relationship Specialty Start Date End Date Luann Cox MD PCP - General Family Medicine 04/15/15 11/02/22 Josiane Pacheco MD [address] [place] [address] PCP - General Family Medicine 11/20/22 07/30/23 Darwni Marti MD [address] [place] [address] PCP - General Internal Medicine 07/31/23 Blair [place] MD 4 [facility] [address] [place] [address] Consulting Physician Orthopaedic Sports Medicine 07/31/23 Jose A Espinosa MD 2 [facility] [address] [place] [address] Consulting Physician Pain Medicine-Pain Management 07/31/23 02/08/24 Hao Silvestre MD [address] [address] Consulting Physician Neurological Surgery 07/31/23 Carlos Dailey MD [address] [address] Consulting Physician Colon and Rectal Surgery 10/26/23 Saida Mckeon APRN, GRAPHICS INTERN [address] [place] [address] Nurse Practitioner Gastroenterology 10/26/23 Jessenia Ward, CLOTH SPREADER SCREEN PRINTING, INTERNATIONAL TRADE TEACHER [address] [place] [address] Nurse Practitioner Neurology 11/17/23 Hao Silvestre MD [address] [address] Consulting Physician Neurological Surgery 02/09/2401/27 Doimnic Wang MD #[address] [place] [address] Consulting Physician Pain Medicine-Pain Management 02/09/24 Butch Muñiz MD [address] [place] [address] Consulting Physician Neurology 02/23/24 documented as of this encounter
--- OUTSIDE RECORDS SUMMARY | 2025-03-06 14:13 | XMS_ITS | Encounter Summary ---
Author Organization [facility] Address [address] [place] [address] Phone Care Team Providers Care Food Chemist Name Role Phone Luann Cox MD Primary Care Provider + [phone] Josiane Pacheco MD Primary Care Provider + [phone] Blair [place] MD Unavailable [phone] Jose A Espinosa MD Unavailable [phone] Darwin Marti MD Primary Care Provider +[phone] Hao Silvestre MD Unavailable [phone] Carlos Dailey MD Unavailable Saida Mckeon APRN, EDGE CUTTING MACHINE OPERATOR Unavailable Jessenia Ward APRN, PLANNING LEAD Unavailable + [phone] Hao Silvestre MD Unavailable +[phone] Dominic Wang MD Unavailable [phone] Butch Muñiz MD Unavailable +[phone] Reason for Visit * Reason Comments Medication Refill Encounter Details Date Type Department Care Team (Late st Contact Info) Description 04/06/2020 Refill [facility] [address] [place] [address] Luann Cox MD [address] [place] [address] Medication Refill Social History [...] 2 months ago Essential hypertension [facility] Luann Cox MD 9 months ago Essential hypertension [facility] Luann Torres MD 1 year ago Essential [facility] 1 year ago Syncope, unspecified syncope type [facility] Luann Torres MD 1 year ago Sore throat [facility] MD Upcoming Appointments Future Appointments In [address], [facility] In 3 months [facility] In 3 months Luann Cox MD [facility] BRAZER HELPER INDUCTION - Recent and Past Visits Recent Visits Date Type Provider Dept 01/12/20 Office Visit Luann Cox MD [facility] 07/14/19 Office Visit Luann Cox MD [facility] 01/11/19 Office Visit Luann Cox MD [facility] Showing recent visits within [...] 2 months ago Essential hypertension [facility] Luann Cox MD 9 months ago Essential hypertension [facility] MD 1 year ago Essential hypertension [facility] Luann Torres MD 1 year ago Syncope, unspecified syncope type [facility] Bensonuru, Luann, MD 1 year ago Sore throat [facility] Luann Torres MD Upcoming Appointments Future Appointments In 1 month [facility] MRI, [facility] In 3 months Lab, [facility] In 3 months Luann Cox MD [facility] BRAZER HELPER INDUCTION - Recent and Past Visits Recent Visits Date Type Provider Dept 01/12/20 Office Visit Luann Cox MD [facility] 07/14/19 Office Visit Luann Cox MD [facility] 01/11/19 Office Visit Luann Cox MD [facility] Showing recent visits within [...] Description 03/09/2025 2:30 PM CDT Office Visit [facility] Family Medicine [facility] #[address] [place] [address] Juan Shrestha MD #[address] [address] 04/21/2025 11:00 AM CDT Office Visit [facility] Neurology [facility] #[address] [place] [address] Jessenia Ward APRN, PLANNING LEAD [address] [place] [address] documented as of this encounter Visit Diagnoses Diagnosis Gastroesophageal reflux disease Esophageal reflux documented in this encounter Additional Health Concerns Infection Onset Date Last Indicated Resolved Time ESBL 08/16/2018 08/16/2018 09/28/2023 9:03 AM CDT COVID - 19 03/09/2023 03/09/2023 03/19/2023 12:1 6 AM CDT Respiratory Rule-Out 03/09/2023 03/09/2023 023 2:09 AM CDT COVID - 19 05/07/2023 05/07/2023 05/07/2023 9:50 AM INSTRUMENT CALIBRATOR COVID - 19 Confirmed 05/07/2023 05/07/2023 023 12:16 AM INSTRUMENT CALIBRATOR C. difficile Rule-Out 09/24/2023 09/24/20232023 3:41 PM CDT COVID - 19 09/24/2023 09/24/2023 09/24/2023 11:3 2 AM CDT C. difficile Rule-Out 09/27/2023 09/27/20232023 2:13 PM CDT COVID - 19 02/23/2024 02/23/2024 02/23/2024 11:2 8 AM CDT Respiratory Rule-Out 02/23/2024 02/23/2024 024 11:30 AM CDT Assessment Noted Time PHQ-9 Depression Total Score: 2 07/14/19 20 10:00 AM INSTRUMENT CALIBRATOR documented as of this encounter Care Teams Food Chemist Relationship Specialty Start Date End Date Luann Cox MD PCP - General Family Medicine 04/15/15 11/02/22 Josiane Pacheco MD [address] [place] [address] PCP - General Family Medicine 11/20/22 07/30/23 Darwin Marti MD [address] [place] [address] PCP - General Internal Medicine 07/31/23 Blair [place] MD 4 [facility] [address] [place] [address] Consulting Physician Orthopaedic Sports Medicine 07/31/23 Jose A Espinosa MD 2 [facility] [address] [place] [address] Consulting Physician Pain Medicine-Pain Management 07/31/23 02/08/24 Hao Silvestre MD [address] [facility] [address] [place] [address] Consulting Physician Neurological Surgery 07/31/23 Carlos Dailey MD #2 [facility] [address] [place] [address] Consulting Physician Colon and Rectal Surgery 10/26/23 Saida Mckeon APRN, EDGE CUTTING MACHINE OPERATOR #[address] [place] [address] Nurse Practitioner Gastroenterology 10/26/23 Jessenia Ward, SUB ACUTE CARE NURSE, PLANNING LEAD [address] [place] [address] Nurse Practitioner Neurology 11/17/23 Hao Silvestre MD [address] [facility] [address] [place] [address] Consulting Physician Neurological Surgery 02/09/2401/27 Dominic Wang MD #2 [place] [address] Consulting Physician Pain Medicine-Pain Management 02/09/24 Butch Muñiz MD #[address] [place] [address] Consulting Physician Neurology 02/23/24 documented as of this encounter
--- OUTSIDE RECORDS SUMMARY | 2025-03-06 14:13 | XMS_ITS | Encounter Summary ---
Author Organization [facility] Address [address] [place] [address] Phone Care Team Providers Care Wrister Name Role Phone Luann oCx MD Primary Care Provider + [phone] Josiane Pacheco MD Primary Care Provider + [phone] Blair [place] MD Unavailable +[phone] Jose A Espinosa MD Unavailable [phone] Darwin Marti MD Primary Care Provider +[phone] Hao Silvestre MD Unavailable [phone] Carlos Dailey MD Unavailable Saida Mckeon APRN, MICA PASTER Unavailable Jessenia Ward APRN, SUMMER CLERK Unavailable +- [phone] Hao Silvestre MD Unavailable +[phone] Dominic Wang MD Unavailable [phone] Butch Muñiz MD Unavailable [phone] Reason for Visit * Reason Comments Medication Refill Encounter Details Date Type Department Care Team (Late st Contact Info) Description 11/29/2021 Refill [facility] - Primary Care - [place] [address] [place] [address] Luann [place] MD [address] [place] [address] Medication Refill Social History Tobacco [...] Dept 06/27/21 Office Visit Luann Cox MD [facility] 03/07/21 Office Visit Luann Cox MD [facility] Showing recent visits within past 365 days and meeting all other requirements Future Appointments Date Type Provider Dept 12/10/21 Appointment Lab, [facility] 12/16/21 Appointment Luann Cox MD [facility] Showing future appointments [...] Dept 06/27/21 Office Visit Luann [place] MD [facility] 03/07/21 Office Visit Luann Cox MD [facility] Showing recent visits within past 365 days and meeting all other requirements Future Appointments Date Type Provider Dept 12/10/21 Appointment Lab, [facility] 12/16/21 Appointment Luann Cox MD [facility] Showing future appointments within next 90 days [...] [facility] - Family Medicine [facility] #[address] [place] [address] Juan Shrestha MD #[address] [address] 04/21/2025 11:00 AM CDT Office Visit [facility] - Neurology [facility] #[address] [place] [address] Jessenia Ward APRN, SUMMER CLERK [address] [place] [address] documented as of this encounter Visit Diagnoses Diagnosis Essential hypertension Unspecified essential hypertension documented in this encounter Additional Health Concerns Infection Onset Date Last Indicated Resolved Time ESBL 08/16/2018 08/16/2018 09/28/2023 9:03 AM CDT COVID - 19 03/09/2023 03/09/2023 03/19/2023 12:1 6 AM CDT Respiratory Rule-Out 03/09/2023 03/09/2023 023 2:09 AM CDT COVID - 19 05/07/2023 05/07/2023 05/07/2023 9:50 AM PER DIEM PHYSICAL THERAPIST COVID - 19 Confirmed 05/07/2023 05/07/2023 023 12:16 AM PER DIEM PHYSICAL THERAPIST C. difficile Rule-Out 09/24/2023 09/24/20232023 3:41 PM CDT COVID - 19 09/24/2023 09/24/2023 09/24/2023 11:3 2 AM CDT C. difficile Rule-Out 09/27/2023 09/27/20232023 2:13 PM CDT COVID - 19 02/23/2024 02/23/2024 02/23/2024 11:2 8 AM CDT Respiratory Rule-Out 02/23/2024 02/23/2024 024 11:30 AM CDT Assessment Noted Time PHQ-9 Depression Total Score: 2 07/14/19 20 10:00 AM PER DIEM PHYSICAL THERAPIST documented as of this encounter Care Teams Wrister Relationship Specialty Start Date End Date Luann Cox MD PCP - General Family Medicine 04/15/15 11/02/22 Josiane Pacheco MD [address] [place] [address] PCP - General Family Medicine 11/20/22 07/30/23 Darwin Marti MD [address] [place] [address] PCP - General Internal Medicine 07/31/23 Blair [place] MD [address] [place] [address], [address] [address] Consulting Physician Orthopaedic Sports Medicine 07/31/23 Jose A Espinosa MD [address] [address] Consulting Physician Pain Medicine-Pain Management 07/31/23 02/08/24 Hao Silvestre MD [address] [address] Consulting Physician Neurological Surgery 07/31/23 Carlos Dailey MD #[address] [address] Consulting Physician Colon and Rectal Surgery 10/26/23 Saida Mckeon APRN, MICA PASTER [address] [place] [address] Nurse Practitioner Gastroenterology 10/26/23 Jessenia Ward APRN, SUMMER CLERK #[address] [place] [address] Nurse Practitioner Neurology 11/17/23 Hao Silvestre MD [address] [address] Consulting Physician Neurological Surgery 02/09/2401/27 Dominic Wang MD #2 [place] [address] Consulting Physician Pain Medicine-Pain Management 02/09/24 Butch Muñiz MD #[address] [place] [address] Consulting Physician Neurology 02/23/24 documented as of this encounter
--- OUTSIDE RECORDS SUMMARY | 2025-03-06 14:13 | XMS_ITS | Encounter Summary ---
Author Organization [facility] Address [address] [place] [address] Care Team Providers Care Fire Equipment Repairer Inspector Name Role Phone Luann Cox MD Primary Care Provider [phone] Ana Hassan Unavailable [phone] Darwin Marti MD Primary Care Provider + [phone] Kirstie Unger MA Unavailable [phone] Encounter Details Date Type Department Care Team (Late st Contact Info) Description 10/19/2021 Ophth Exam [facility] [address] [place] [address] Brielle Howe MD [address] [place] [address] [place] [address] Social History Tobacco Use Types [...] on filedocumented in this encounter Care Teams Fire Equipment Repairer Inspector Relationship Specialty Start Date End Date Luann Cox MD PCP - General Family Medicine 05/06/21 10/26/23 Darwin Marti MD [address] [place] [address] PCP - General Internal Medicine 10/27/23 Ana Hassan Care Coordination Specialist Care Management 10/27/23 10/27/23 Kirstie Unger MA Care Coordination Specialist 10/21/24 10/24/24 documented as of this encounter
--- OUTSIDE RECORDS SUMMARY | 2025-03-06 14:13 | XMS_ITS | Encounter Summary ---
Author Organization [facility] Address [address] [place] [address] Phone Care Team Providers Care Senior Quality Analyst Name Role Phone NaidaalisBlair guerrero MD Unavailable [phone] Darwin Marti MD Primary Care Provider [phone] Hao Silvestre MD Unavailable +[phone] Carlos Dailey MD Unavailable Saida Mckeon APRN, SAFETY ASSISTANT Unavailable Jessenia Ward APRN, DISABILITY COORDINATOR Unavailable + [phone] Dominic Wang MD Unavailable [phone] Butch Muñiz MD Unavailable [phone] Reason for Visit * Reason Onset Date Comments Cough 02/23/2024 Chest Congestion 02/23/2024 Encounter Details Date Type Department Care Team (Late st Contact Info) Description 02/23/2024 Nurse Triage [facility] [address] [place] [address] Darwin Marti MD [address] [place] [address] Cough; Chest Congestion Social History Tobacco Use Types Packs/Day Years Used Date Smoking Tobacco: Former Cigarettes 2 41.8 1 964 - 04/09/2005 Smokeless Tobacco: Never Alcohol Use Standard Drinks/Week Comments No 0 (1 standard drink = 0.6 oz pur e alcohol) [facility] Utilities Answer Date Recorded In the [...] 09/26/2023 How often do you attend [facility] ch or restorationism services? Never 09/26/2023 Do you belong to any clubs o r organizations such as hindu groups, unions, fraternal or athletic groups, or [...] PHQ-2 Score 2 07/14/2019 [facility] [place] of Occupat ional Health - Occupational Stress [...] Dept Phone 02/23/2024 9:15 AM Butch Muñiz [facility] - Neurology - [place] [phone] 02/23/2024 11:00 AM Darwin Marti [facility] - Primary Care - [place] [phone] Patient states that her medications and allergies [...] Description 03/09/2025 2:30 PM CDT Office Visit [facility] - Family Medicine - [place] #[address] [place] [address] Juan Srhestha MD #[address] [address] 04/21/2025 11:00 AM CDT [facility] [place] [facility] [place] [address] Jessenia Ward, MEASUREMENT TECHNICIAN, DISABILITY COORDINATOR [address] [place] [address] documented as of this encounter Visit Diagnoses Not on filedocumented in this encounter Additional Health Concerns Infection Onset Date Last Indicated Resolved Time COVID - 19 02/23/2024 02/23/2024 02/23/2024 11:2 8 AM CDT Respiratory Rule-Out 02/23/2024 02/23/2024 024 11:30 AM CDT Assessment Noted Time PHQ-9 Depression Total Score: 0 07/31/19 24 12:53 PM SUB MASTER documented as of this encounter Care Teams Senior Quality Analyst Relationship Specialty Start Date End Date Darwin Marti MD [address] [place] [address] PCP - General Internal Medicine 07/31/23 Blair [place] MD [address] [place] [address], [facility] [address] [place] [address] Consulting Physician Orthopaedic Sports Medicine 07/31/23 Hao Silvestre MD [facility] [address] [place] [id number] Consulting Physician Neurological Surgery 07/31/23 Carlos Dailey MD #[address] [address] Consulting Physician Colon and Rectal Surgery 10/26/23 Saida Mckeon APRN, SAFETY ASSISTANT #[address] [place] [address] Nurse Practitioner Gastroenterology 10/26/23 Jessenia Ward APRN, DISABILITY COORDINATOR #[address] [place] [address] Nurse Practitioner Neurology 11/17/23 Dominic Wang MD #2 [place] [address] Consulting Physician Pain Medicine-Pain Management 02/09/24 Butch Muñiz MD #[address] [place] [address] Consulting Physician Neurology 02/23/24 documented as of this encounter
--- OUTSIDE RECORDS SUMMARY | 2025-03-06 14:13 | XMS_ITS | Encounter Summary ---
Author Organization [facility] Address [address] [place] [address] Phone Care Team Providers Care Anesthetic Assistant Name Role Phone Blair Paris MD Unavailable [phone] Jose A Espinosa MD Unavailable [phone] Darwin Marti MD Primary Care Provider [phone] Hao Silvestre MD Unavailable [phone] Carlos Dailey MD Unavailable Saida Mckeon APRN, CRANE HOIST OR LIFT OPERATOR Unavailable Jessenia Ward APRN, [facility] Unavailable + [phone] Hao Silvestre MD Unavailable [phone] Dominic Wang MD Unavailable [phone] Butch Muñiz MD Unavailable [phone] Reason for Visit * Reason Comments Medication Refill Encounter Details Date Type Department Care Team (Late st Contact Info) Description 11/13/2023 Refill [facility] - Primary Care - [place] [address] [place] [address] Darwin Marti MD [address] [place] [address] Medication Refill Social History Tobacco Use Types Packs/Day Years Used Date Smoking Tobacco: Former Cigarettes 2 41.8 1 964 - 04/09/2005 Smokeless Tobacco: Never Alcohol Use Standard Drinks/Week Comments No 0 (1 standard drink = 0.6 oz pur e alcohol) [facility] Utilities Answer Date Recorded In the past 12 months has [employer], gas, oil, or water [employer] threatened to shut off services in your [...] often do you attend chur ch or mosque services? Never 09/26/2023 Do you belong to [...] Answer Date Recorded PHQ-2 Score 2 07/14/2019 [facility] - Occupational Stress Questionnaire Answer [...] place to sleep or slept in a mcc (including now)? No 09/26/2023 Sexually Active Control [...] AM CDT Medication(s) refilled and [facility] Chronic Medication Refill Standing Order for [...] Dept 10/14/23 Office Visit Darwin Marti MD [facility] 10/05/23 Office Visit Cassie Lara APRN, [facility] 07/31/23 Office Visit Darwin Marti MD [facility] 01/29/23 Office Visit Josiane Pacheco MD [facility] Showing recent visits within past 365 days and meeting all other requirements Future Appointments Date Type Provider Dept 02/09/24 Appointment Darwin Marti MD [facility] Showing future appointments within next 90 days and meeting all other requirements Passed - Normal TSH in past 12 months TSH Date Value Ref Range Status 07/31/2023 1.805 0.300 - 5.000 mIU/L Final documented in this encounter Plan of Treatment Upcoming Encounters Date Type Department Care Team (Late st Contact Info) Description 03/09/2025 2:30 PM CDT Office Visit [facility] - Family Medicine [facility] [address] [place] [address] Juan Shrestha MD #[address] [address] 04/21/2025 11:00 AM CDT Office Visit [facility] - Neurology - [place] [address] [place] [address] Jessenia Ward, CHEMICAL PLANT MANAGER, FRONT MAKER LOCKSTITCH #[address] [facility] [place] [address] documented as of this encounter Visit Diagnoses Diagnosis Hypothyroidism (acquired) Unspecified hypothyroidism documented in this encounter Additional Health Concerns Infection Onset Date Last Indicated Resolved Time COVID - 19 02/23/2024 02/23/2024 02/23/2024 11:2 8 AM CDT Respiratory Rule-Out 02/23/2024 02/23/2024 024 11:30 AM CDT Assessment Noted Time PHQ-9 Depression Total Score: 0 07/31/19 12:53 PM CREW CAR DRIVER documented as of this encounter Care Teams Anesthetic Assistant Relationship Specialty Start Date End Date Darwin Marti MD [address] [place] [address] PCP - General Internal Medicine 07/31/23 Blair Paris MD 4 [facility] [address] [place] [address] Consulting Physician Orthopaedic Sports Medicine 07/31/23 Jose A Espinosa MD 2 [facility] [address] [place] [address] Consulting Physician Pain Medicine-Pain Management 07/31/23 02/08/24 Hao Silvestre MD [address] [address] Consulting Physician Neurological Surgery 07/31/23 Carlos Dailey MD #2 [facility] [address] [place] [address] Consulting Physician Colon and Rectal Surgery 10/26/23 Saida Mckeon APRN, [facility] #2 [place] [address] Nurse Practitioner Gastroenterology 10/26/23 Jessenia Ward APRN, [facility] [address] [place] [address] Nurse Practitioner Neurology 11/17/23 Hao Silvestre MD [address] [address] Consulting Physician Neurological Surgery 02/09/2401/27 Dominic Wang MD #2 [place] [address] Consulting Physician Pain Medicine-Pain Management 02/09/24 Butch Muñiz MD #2 [place] [address] Consulting Physician Neurology 02/23/24 documented as of this encounter
--- OUTSIDE RECORDS SUMMARY | 2025-03-06 14:13 | XMS_ITS | Clinical Summary ---
Author Organization [facility] Address [address] [facility] [place] [address] Care Team Providers Care Electronic Plotting System Operator Name Role Phone Darwin Marti MD Primary Care Provider [phone] Source Comments [facility],non-owned Affiliates and Associated Physician Practices is amultiple site organization consisting of ambulatory clinics and hospital sitesin [place], [place], [place] and [place]. This disclosure is being madepursuant to the Care Everywhere program and may not contain all information available regarding this patient. Last updated 18.[facility] Allergies Active Allergy Reactions Criticality Noted [...] Reaction: Vomiting, Penicillins Other,Unknown 03/28/2021 Reaction: Unknown, [place] Unknown 06/15/2015 Sulfa Drugs Other 02/08/2020 Reaction: [...] age to complete this topic Insurance MEDICARE [facility] Advance Directives * Full Code (Latest Code Status on File) Date Activated Date Inactivated Comments 10/18/2021 5:32 PM 10/19/2021 1:05 PM Care Teams Electronic Plotting System Operator Relationship Specialty Start Date End Date Darwin Marti MD [address] [place] [address] PCP - General Internal Medicine 10/27/23
--- OUTSIDE RECORDS SUMMARY | 2025-03-06 14:13 | XMS_ITS | Encounter Summary ---
Author Organization [facility] Address [address] [place] [address] Phone Care Team Providers Care Knitting Machine Operator Name Role Phone Luann Cox MD Primary Care Provider + [phone] Josiane Pacheco MD Primary Care Provider + [phone] Blair Paris MD Unavailable [phone] Jose A Espinosa MD Unavailable [phone] Darwin Marti MD Primary Care Provider [phone] Hao Silvestre MD Unavailable [phone] Carlos Dailey MD Unavailable Saida Mckeon APRN, STUDY ASSISTANT Unavailable Jessenia Ward APRN, ENVELOPE FOLDING MACHINE ADJUSTER Unavailable + [phone] Hao Silvestre MD Unavailable [phone] Dominic Wang MD Unavailable [phone] Butch Muñiz MD Unavailable [phone] Reason for Visit * Reason Comments Medication Refill Encounter Details Date Type Department Care Team (Late st Contact Info) Description 01/01/2022 Refill [facility] - Primary Care - [place] [address] [place] [phone] Luann Cox MD [address] [place] [address] Medication Refill Social History Tobacco [...] Dept 12/16/21 Office Visit Luann Cox MD [facility] [employer] [facility] 06/27/21 Office Visit Luann Cox MD [facility] [place] [facility] 03/07/21 Office Visit Luann Cox MD [facility] [employer] [facility] Showing recent visits within past 365 [...] Dept 12/16/21 Office Visit Luann Cox MD [facility] [place] [facility] 06/27/21 Office Visit Luann Cox MD [facility] [place] [facility] 03/07/21 Office Visit Luann Cox MD [facility] [place] [facility] Showing recent visits within past 365 [...] Dept 12/16/21 Office Visit Luann Cox MD [facility] [employer] [facility] 06/27/21 Office Visit Luann Cox MD [facility] [employer] [facility] 03/07/21 Office Visit Luann Cox MD [facility] [employer] Showing recent visits within past 365 days [...] Dept 12/16/21 Office Visit Luann Cox MD [facility] [employer] 06/27/21 Office Visit Luann Cox MD [facility] [employer] [facility] 03/07/21 Office Visit Luann Cox MD [facility] [place] [facility] Showing recent visits within past 365 [...] Dept 12/16/21 Office Visit Luann Cox MD [facility] [employer] [facility] 06/27/21 Office Visit Luann Cox MD [facility] [employer] [facility] 03/07/21 Office Visit Luann Cox MD [facility] [employer] [facility] Showing recent visits within past 365 [...] 03/09/2025 2:30 PM CDT Office Visit [facility] - Family Medicine [facility] [address] [place] [address] Juan Shrestha MD #[address] [address] 04/21/2025 11:00 AM CDT [facility] #2 [place] [address] Jessenia Ward APRN, ENVELOPE FOLDING MACHINE ADJUSTER #2 [place] [address] documented as of this encounter Visit Diagnoses [...] - 19 05/07/2023 05/07/2023 05/07/2023 9:50 AM EMBLEM DRAWER IN COVID - 19 Confirmed 05/07/2023 05/07/2023 023 12:16 AM EMBLEM DRAWER IN C. difficile Rule-Out 09/24/2023 09/24/20232023 3:41 PM CDT COVID - 19 09/24/2023 09/24/2023 09/24/2023 11:3 2 AM CDT C. difficile Rule-Out 09/27/2023 09/27/20232023 2:13 PM CDT COVID - 19 02/23/2024 02/23/2024 02/23/2024 11:2 8 AM CDT Respiratory Rule-Out 02/23/2024 02/23/2024 024 11:30 AM CDT Assessment Noted Time PHQ-9 Depression Total Score: 2 07/14/19 20 10:00 AM EMBLEM DRAWER IN documented as of this encounter Care Teams Knitting Machine Operator Relationship Specialty Start Date End Date Luann Cox MD PCP - General Family Medicine 04/15/15 11/02/22 Josiane Pacheco MD [address] [place] [address] PCP - General Family Medicine 11/20/22 07/30/23 Darwin Marti MD [address] [place] [address] PCP - General Internal Medicine 07/31/23 Blair Paris MD 4 [facility] [address] [place] [address] Consulting Physician Orthopaedic Sports Medicine 07/31/23 Jose A Espinosa MD 2 [facility] [address] [place] [address] Consulting Physician Pain Medicine-Pain Management 07/31/23 02/08/24 Hao Silvestre MD [address] [place] [address] Consulting Physician Neurological Surgery 07/31/23 Carlos Dailey MD [address] [address] Consulting Physician Colon and Rectal Surgery 10/26/23 Saida Mckeon APRN, STUDY ASSISTANT #[address] [place] [address] Nurse Practitioner Gastroenterology 10/26/23 Jessenia Ward APRN, ENVELOPE FOLDING MACHINE ADJUSTER #[address] [place] [address] Nurse Practitioner Neurology 11/17/23 Hao Silvestre MD [address] [address] Consulting Physician Neurological Surgery 02/09/2401/27 Dominic Wang MD #2 [place] [address] Consulting Physician Pain Medicine-Pain Management 02/09/24 Butch Muñiz MD #2 [place] [address] Consulting Physician Neurology 02/23/24 documented as of this encounter
--- OUTSIDE RECORDS SUMMARY | 2025-03-06 14:13 | XMS_ITS | Encounter Summary ---
Author Organization [facility] Address [address] [place] [address] Phone Care Team Providers Care Gun Sealing Machine Operator Name Role Phone Blair Paris MD Unavailable [phone] Jose A Espinosa MD Unavailable [phone] Darwin Marti MD Primary Care Provider [phone] Hao Silvestre MD Unavailable [phone] Carlos Dailey MD Unavailable Saida Mkceon APRN, ASSEMBLER 1ST SHIFT Unavailable Jessenia Ward APRN, [facility] Unavailable + [phone] Hao Silvestre MD Unavailable [phone] Dominic Wang MD Unavailable [phone] Butch Muñiz MD Unavailable Reason for Visit * Reason Comments Medication Refill Encounter Details Date Type Department Care Team (Late st Contact Info) Description 10/29/2023 Refill [facility] [address] [place] [address] Darwin Marti MD [address] [place] [address] Medication Refill Social History Tobacco Use Types Packs/Day Years Used Date Smoking Tobacco: Former Cigarettes 2 41.8 1 964 - 04/09/2005 Smokeless Tobacco: Never Alcohol Use Standard Drinks/Week Comments No 0 (1 standard drink = 0.6 oz pur e alcohol) [facility] Utilities Answer Date Recorded In the past 12 months has [employer], gas, oil, or water [employer] threatened to shut off services in your [...] Answer Date Recorded PHQ-2 Score 2 07/14/2019 [facility] - Occupational [...] Description 03/09/2025 2:30 PM CDT Office Visit [facility] Family Medicine [facility] #2 [place] [address] Juan Shrestha MD #[address] [address] 04/21/2025 11:00 AM CDT Office Visit [facility] Neurology [facility] #2 [facility] [place] [address] Jessenia Ward, TAMALE MACHINE FEEDER, NUT AND BOLT ASSEMBLER #[address] [place] [address] documented as of this encounter Visit Diagnoses Not on filedocumented in this encounter Additional Health Concerns Infection Onset Date Last Indicated Resolved Time COVID - 19 02/23/2024 02/23/2024 02/23/2024 11:2 8 AM CDT Respiratory Rule-Out 02/23/2024 02/23/2024 024 11:30 AM CDT Assessment Noted Time PHQ-9 Depression Total Score: 0 07/31/19 24 12:53 PM RADIATION ENGINEER documented as of this encounter Care Teams Gun Sealing Machine Operator Relationship Specialty Start Date End Date Darwin Marti MD [address] [place] [address] PCP - General Internal Medicine 07/31/23 Blair Paris MD [address] [place] [address], [address] [place] [address] Consulting Physician Orthopaedic Sports Medicine 07/31/23 Jose A Espinosa MD 2 [facility] [address] [place] [address] Consulting Physician Pain Medicine-Pain Management 07/31/23 02/08/24 Hao Silvestre MD [address] [address] Consulting Physician Neurological Surgery 07/31/23 Carlos Dailey MD #[address] [address] Consulting Physician Colon and Rectal Surgery 10/26/23 Saida Mckeon APRN, ASSEMBLER 1ST SHIFT #[address] [place] [address] Nurse Practitioner Gastroenterology 10/26/23 Jessenia Ward APRN, NUT AND BOLT ASSEMBLER #[address] [place] [address] Nurse Practitioner Neurology 11/17/23 Hao Silvestre MD [address] [address] Consulting Physician Neurological Surgery 02/09/2401/27 Dominic Wang MD #[address] [place] [address] Consulting Physician Pain Medicine-Pain Management 02/09/24 Butch Muñiz MD #2 [facility] [place] [address] Consulting Physician Neurology 02/23/24 documented as of this encounter
--- NOTE | 2025-03-06 14:14 | ECG_ITS ---
Test Date: 2025-03-06 14:50:57 Measurements Intervals [place] Rate: 94 P: 39 ID: [id number] QRS: -38 QRSD: 84 T: 42 QT: 365 QTc: 458 Interpretive Statements SINUS RHYTHM POSSIBLE LEFT ATRIAL ENLARGEMENT [-0.1mV P WAVE IN V1/V2] MARKED LEFT AXIS DEVIATION [QRS AXIS < -30] POSSIBLE RIGHT VENTRICULAR CONDUCTION DELAY [RSR (QR) IN V1/V2] POSSIBLE LEFT VENTRICULAR HYPERTROPHY [VOLTAGE CRITERIA PLUS LAE OR QRS WIDENING] ABNORMAL ECG Compared to ECG 12/29/2024 08:59:32 No significant changes Electronically Signed On 03-08-2025 15:19:24 CDT by Royce Moses M.D.
--- OUTSIDE RECORDS SUMMARY | 2025-03-06 14:14 | XMS_ITS | Encounter Summary ---
Author Organization [facility] Address [address] [place] [address] Phone Care Team Providers Care Patient Account Representative Name Role Phone Luann Cox MD Primary Care Provider + [phone] Josiane Pacheco MD Primary Care Provider + [phone] Blair Paris MD Unavailable [phone] Jose A Espinosa MD Unavailable [phone] Darwin Marti MD Primary Care Provider [phone] Hao Silvestre MD Unavailable [phone] Carlos Dailey MD Unavailable Saida Mckeon APRN, PIE BOTTOMER Unavailable Jessenia Ward APRN, FOOD SERVICE ORDER CLERK Unavailable +- [phone] Hao Silvestre MD Unavailable [phone] Dominic Wang MD Unavailable [phone] Butch Muñiz MD Unavailable +[phone] Reason for Visit * Reason Comments Medication Refill Encounter Details Date Type Department Care Team ([facility] Contact Info) Description [facility] [place] [address] [place] [address] Luann Cox MD [address] [place] [address] Medication Refill Social History Tobacco [...] no refill protocol information for this order STIC HELPER documented in this encounter Plan of Treatment Upcoming Encounters Date Type Department Care Team ([facility] Contact Info) Description 03/09/2025 2:30 PM CDT Office Visit [facility] - Family Medicine - [place] [address] [place] [address] Juan Shrestha MD [facility]2 [facility] [address] [address] 04/21/2025 11:00 AM CDT Office Visit [facility] - Neurology - [place] [address] [place] [address] Jessenia Ward APRN, FOOD SERVICE ORDER CLERK #[address] [place] [address] documented as of this encounter Visit Diagnoses Not on filedocumented in this encounter Additional Health Concerns Infection Onset Date Last Indicated Resolved Time ESBL 08/16/2018 08/16/2018 09/28/2023 9:03 AM CDT COVID - 19 03/09/2023 03/09/2023 03/19/2023 12:1 6 AM CDT Respiratory Rule-Out 03/09/2023 03/09/2023 023 2:09 AM CDT COVID - 19 05/07/2023 05/07/2023 05/07/2023 9:50 AM DOMESTIC HELPER COVID - 19 Confirmed 05/07/2023 05/07/2023 023 12:16 AM DOMESTIC HELPER C. difficile Rule-Out 09/24/2023 09/24/20232023 3:41 PM CDT COVID - 19 09/24/2023 09/24/2023 09/24/2023 11:3 2 AM CDT C. difficile Rule-Out 09/27/2023 09/27/20232023 2:13 PM CDT COVID - 19 02/23/2024 02/23/2024 02/23/2024 11:2 8 AM CDT Respiratory Rule-Out 02/23/2024 02/23/2024 024 11:30 AM CDT Assessment Noted Time PHQ-9 Depression Total Score: 2 07/14/19 20 10:00 AM DOMESTIC HELPER documented as of this encounter Care Teams Patient Account Representative Relationship Specialty Start Date End Date Luann Cox MD PCP - General Family Medicine 04/15/15 11/02/22 Josiane Pacheco MD [address] [place] [address] PCP - General Family Medicine 11/20/22 07/30/23 Darwin Marti MD [address] [place] [address] PCP - General Internal Medicine 07/31/23 Blair Paris MD 4 [facility] [address] [place] [address] Consulting Physician Orthopaedic Sports Medicine 07/31/23 Jose A Espinosa MD 2 [facility] [address] [place] [address] Consulting Physician Pain Medicine-Pain Management 07/31/23 02/08/24 Hao Silvestre MD [address] [address] Consulting Physician Neurological Surgery 07/31/23 Carlos Dailey MD #2 [facility] [address] [place] [address] Consulting Physician Colon and Rectal Surgery 10/26/23 Saida Mckeon APRN, PIE BOTTOMER #2 [place] [address] Nurse Practitioner Gastroenterology 10/26/23 Jessenia Ward APRN, FOOD SERVICE ORDER CLERK #[address] [place] [address] Nurse Practitioner Neurology 11/17/23 Hao Silvestre MD [address] [address] Consulting Physician Neurological Surgery 02/09/2401/27 Dominic Wang MD #2 [place] [address] Consulting Physician Pain Medicine-Pain Management 02/09/24 Butch Muñiz MD #2 [place] [address] Consulting Physician Neurology 02/23/24 documented as of this encounter
--- OUTSIDE RECORDS SUMMARY | 2025-03-06 14:14 | XMS_ITS | Encounter Summary ---
Author Organization [facility] Address [address] [place] [address] Phone Care Team Providers Care Senior Living Sales Counselor Name Role Phone Luann Cox MD Primary Care Provider + [phone] Josiane Pacheco MD Primary Care Provider + [phone] Blair Paris MD Unavailable +[phone] Jose A Espinosa MD Unavailable +[phone] Darwin Marti MD Primary Care Provider +[phone] Hao Silvestre MD Unavailable +[phone] Carlos Dailey MD Unavailable Saida Mckeon APRN, GOSPEL SINGER Unavailable Jessenia Ward APRN, BUSINESS OPERATIONS CONSULTANT Unavailable + [phone] Hao Silvestre MD Unavailable +[phone] Dominic Wang MD Unavailable [phone] Butch Muñiz MD Unavailable +[phone] Reason for Visit * Reason Comments Medication Refill Encounter Details Date Type Department Care Team (Late st Contact Info) Description 01/02[facility] [place] [address] [place] [id number] Luann Cox MD [address] [place] [address] Medication Refill Social History Tobacco [...] Dept 09/06/20 Office Visit Luann Cox MD [facility] 07/24/20 Office Visit Luann Cox MD [facility] 01/12/20 Office Visit Luann Cox MD [facility] Showing recent visits within past 365 days and meeting all other requirements Future Appointments Date Type Provider Dept 03/07/21 Appointment Luann Cox MD [facility] Showing future appointments within next 90 days [...] stenosis, lumbar region, with neurogenic claudication [facility] Luann Cox MD 5 months ago Uncomplicated asthma [facility] Luann Cox MD 11 months ago Essential hypertension [facility] Luann Cox MD 1 year ago Essential hypertension [facility] Luann Cox MD 1 year ago Essential hypertension [facility] Luann Cox MD Upcoming Appointments Future Appointments In 2 months Luann Cox MD [facility] - Recent and Past Visits Recent Visits Date Type Provider Dept 09/06/20 Office Visit Luann Cox MD [facility] 07/24/20 Office Visit Luann Cox MD [facility] 01/12/20 Office Visit Luann Cox MD [facility] Showing recent visits within past 460 days with a meds authorizing provider and meeting all other requirements Future Appointments Date Type Provider Dept 03/07/21 Appointment Luann Cox MD [facility] Showing future appointments within next 90 days [...] Dept 09/06/20 Office Visit Luann Cox MD [facility] [place] [place] [employer] [facility] 07/24/20 Office Visit Luann Cox MD [facility] [employer] [facility] 01/12/20 Office Visit Luann Cox MD [facility] [place] [place] [employer] [facility] Showing recent visits within past 365 days and meeting all other requirements Future Appointments Date Type Provider Dept 03/07/21 Appointment Luann Cox MD [facility] [place] [place] [employer] Showing future appointments within next 90 days [...] Dept 09/06/20 Office Visit Luann Cox MD [facility] [place] [place] [employer] [facility] 07/24/20 [facility] 01/12/20 Office Visit Luann Cox MD [facility] Showing recent visits within past 365 days and meeting all other requirements Future Appointments Date Type Provider Dept 03/07/21 Appointment Luann Cox MD [facility] Showing future appointments within next 90 days and meeting all other requirements [facility]: Antiulcer - Proton Pump Inhibitors Passed - 01/02/2021 12:58 PM Passed - Valid encounter within last 12 months Past Office Visits Recent Outpatient Visits 3 months ago Spinal stenosis, lumbar region, with neurogenic claudication [facility] Luann Cox MD 5 months ago Uncomplicated asthma [facility] Luann Cox MD 11 months ago Essential hypertension [facility] Luann Cox MD 1 year ago Essential hypertension [facility] Luann Cox MD 1 year ago Essential hypertension [facility] Luann Cox MD Upcoming Appointments Future Appointments In 2 months Luann Cox MD [facility] [employer] - Recent and Past Visits Recent Visits Date Type Provider Dept 09/06/20 Office Visit Luann Cox MD [facility] 07/24/20 Office Visit Luann Cox MD [facility] 01/12/20 Office Visit Luann Cox MD [facility] Showing recent visits within past 460 days with a meds authorizing provider and meeting all other requirements Future Appointments Date Type Provider Dept 03/07/21 Appointment Luann Cox MD [facility] Showing future appointments within next 90 days with a meds authorizing provider and meeting all other requirements documented in this encounter Plan of Treatment Upcoming Encounters Date Type Department Care Team (Late st Contact Info) Description 03/09/2025 2:30 PM CDT [facility] [place] [address] Juan Shrestha MD #[address] [address] 04/21/2025 11:00 AM CDT [facility] - [facility]rology - [place] [address] [place] [address] Jessenia Ward, GLUE SPRAYER, BUSINESS OPERATIONS CONSULTANT [address] [place] [address] documented as of this encounter Visit Diagnoses [...] - 19 05/07/2023 05/07/2023 05/07/2023 9:50 AM ACID WASHER OPERATOR COVID - 19 Confirmed 05/07/2023 05/07/2023 023 12:16 AM ACID WASHER OPERATOR C. difficile Rule-Out 09/24/2023 09/24/20232023 3:41 PM CDT COVID - 19 09/24/2023 09/24/2023 09/24/2023 11:3 2 AM CDT C. difficile Rule-Out 09/27/2023 09/27/20232023 2:13 PM CDT COVID - 19 02/23/2024 02/23/2024 02/23/2024 11:2 8 AM CDT Respiratory Rule-Out 02/23/2024 02/23/2024 024 11:30 AM CDT Assessment Noted Time PHQ-9 Depression Total Score: 2 07/14/19 20 10:00 AM ACID WASHER OPERATOR documented as of this encounter Care Teams Senior Living Sales Counselor Relationship Specialty Start Date End Date Luann Cox MD PCP - General Family Medicine 04/15/15 11/02/22 Josiane Pacheco MD [address] [place] [address] PCP - General Family Medicine 11/20/22 07/30/23 Darwin Marti MD [address] [place] [address] PCP - General Internal Medicine 07/31/23 Blair Paris MD 4 [facility] [address] [place] [address] Consulting Physician Orthopaedic Sports Medicine 07/31/23 Jose A Espinosa MD 2 [facility] [address] [place] [address] Consulting Physician Pain Medicine-Pain Management 07/31/23 02/08/24 Hao Silvestre MD [address] [address] Consulting Physician Neurological Surgery 07/31/23 Carlos Dailey MD #2 [facility] [address] [place] [address] Consulting Physician Colon and Rectal Surgery 10/26/23 Saida Mckeon APRN, GOSPEL SINGER [address] [place] [address] Nurse Practitioner Gastroenterology 10/26/23 Jessenia Ward APRN, BUSINESS OPERATIONS CONSULTANT [address] [place] [address] Nurse Practitioner Neurology 11/17/23 Hao Silvestre MD [address] [address] Consulting Physician Neurological Surgery 02/09/2401/27 Dominic Wang MD #[address] [place] [address] Consulting Physician Pain Medicine-Pain Management 02/09/24 Butch Muñiz MD #2 [place] [address] Consulting Physician Neurology 02/23/24 documented as of this encounter
--- OUTSIDE RECORDS SUMMARY | 2025-03-06 14:14 | XMS_ITS | Encounter Summary ---
Author Organization [facility] Address [address] [place] [address] Phone Care Team Providers Care Special Needs Child Caregiver Name Role Phone Luann Cox MD Primary Care Provider + [phone] Josiane Pacheco MD Primary Care Provider + [phone] Blair Paris MD Unavailable +[phone] Jose A Espinosa MD Unavailable +[phone] Darwin Marti MD Primary Care Provider [phone] Hao Silvestre MD Unavailable [phone] Carlos Dailey MD Unavailable Saida Mckeon APRN, INVESTMENTS MANAGER Unavailable Jessenia Ward APRN, FOUR H AGENT Unavailable +- [phone] Hao Silvestre MD Unavailable Dominic Wang MD Unavailable [phone] Butch Muñiz MD Unavailable +[phone] Reason for Visit * Reason Comments Medication Refill Encounter Details Date Type Department Care Team (Late Contact Info) Description 10/27/[facility] [place] [address] [place] [phone] Luann Cox MD [address] [place] [address] Medication Refill Social History Tobacco [...] Description 03/09/2025 2:30 PM CDT Office Visit [facility] - Family Medicine - [place] [address] [place] [address] Juan Shrestha MD #[address] [address] 04/21/2025 11:00 AM CDT Office Visit [facility] - Neurology - [place] [address] [place] [id number] Jessenia Ward APRN, FOUR H AGENT [address] [place] [address] documented as of this encounter Visit Diagnoses [...] - 19 05/07/2023 05/07/2023 05/07/2023 9:50 AM ELECTRICIAN MAINTENANCE COVID - 19 Confirmed 05/07/2023 05/07/2023 023 12:16 AM ELECTRICIAN MAINTENANCE C. difficile Rule-Out 09/24/2023 09/24/20232023 3:41 PM CDT COVID - 19 09/24/2023 09/24/2023 09/24/2023 11:3 2 AM CDT C. difficile Rule-Out 09/27/2023 09/27/20232023 2:13 PM CDT COVID - 19 02/23/2024 02/23/2024 02/23/2024 11:2 8 AM CDT Respiratory Rule-Out 02/23/2024 02/23/2024 024 11:30 AM CDT Assessment Noted Time PHQ-9 Depression Total Score: 2 07/14/19 20 10:00 AM ELECTRICIAN MAINTENANCE documented as of this encounter Care Teams Special Needs Child Caregiver Relationship Specialty Start Date End Date Luann Cox MD PCP - General Family Medicine 04/15/15 11/02/22 Josiane Pacheco MD [address] [place] [address] PCP - General Family Medicine 11/20/22 07/30/23 Darwin Marti MD [address] [place] [address] PCP - General Internal Medicine 07/31/23 Blair Paris MD 4 [facility] [place] [address] [place] [address] Consulting Physician Orthopaedic Sports Medicine 07/31/23 Jose A Espinosa MD 2 [facility] [address] [place] [address] Consulting Physician Pain Medicine-Pain Management 07/31/23 02/08/24 Hao Silvestre MD [address] [address] Consulting Physician Neurological Surgery 07/31/23 Carlos Dailey MD #[address] [address] Consulting Physician Colon and Rectal Surgery 10/26/23 Saida Mckeon APRN, INVESTMENTS MANAGER [address] [place] [address] Nurse Practitioner Gastroenterology 10/26/23 Jessenia Ward APRN, FOUR H AGENT [address] [place] [address] Nurse Practitioner Neurology 11/17/23 Hao Silvestre MD [address] [address] Consulting Physician Neurological Surgery 02/09/2401/27 Dominic Wang MD #[address] [place] [address] Consulting Physician Pain Medicine-Pain Management 02/09/24 Butch Muñiz MD #[address] [place] [address] Consulting Physician Neurology 02/23/24 documented as of this encounter
--- OUTSIDE RECORDS SUMMARY | 2025-03-06 14:14 | XMS_ITS | Encounter Summary ---
Author Organization [facility] Address [address] [place] [address] Phone Care Team Providers Care Color Corrector Name Role Phone Luann Cox MD Primary Care Provider + [phone] Josiane Pacheco MD Primary Care Provider + [phone] Blair Paris MD Unavailable +[phone] Jose A Espinosa MD Unavailable +[phone] Darwin Marti MD Primary Care Provider +[phone] Hao Silvestre MD Unavailable [phone] Carlos Dailey MD Unavailable Saida Mckeon APRN, FRANCHISE DEVELOPMENT MANAGER Unavailable Jessenia Ward APRN, PLANISHER Unavailable [phone] Hao Silvestre MD Unavailable Dominic Wang MD Unavailable [phone] Butch Muñiz MD Unavailable +[phone] Reason for Visit * Reason Comments Medication Refill Encounter Details Date Type Department Care Team (Late Contact Info) Description 02/23/2021 [facility]ill [facility] [place] [address] [place] [address] Luann Cox MD [address] [place] [address] Medication Refill Social History Tobacco [...] Description 03/09/2025 2:30 PM CDT Office Visit [facility] [address] [place] [address] Juan Shrestha MD [address] [address] 04/21/2025 11:00 AM CDT Office Visit [facility] - Neurology - [place] [address]2 [facility] [place] [address] Jessenia Ward APRN, PLANISHER [address] [place] [address] documented as of this encounter Visit Diagnoses Diagnosis Essential hypertension Unspecified essential hypertension documented in this encounter Additional Health Concerns Infection Onset Date Last Indicated Resolved Time ESBL 08/16/2018 08/16/2018 09/28/2023 9:03 AM CDT COVID - 19 03/09/2023 03/09/2023 03/19/2023 12:1 6 AM CDT Respiratory Rule-Out 03/09/2023 03/09/2023 023 2:09 AM CDT COVID - 19 05/07/2023 05/07/2023 05/07/2023 9:50 AM CELLOPHANE WRAPPING EXAMINER COVID - 19 Confirmed 05/07/2023 05/07/2023 023 12:16 AM CELLOPHANE WRAPPING EXAMINER C. difficile Rule-Out 09/24/2023 09/24/20232023 3:41 PM CDT COVID - 19 09/24/2023 09/24/2023 09/24/2023 11:3 2 AM CDT C. difficile Rule-Out 09/27/2023 09/27/20232023 2:13 PM CDT COVID - 19 02/23/2024 02/23/2024 02/23/2024 11:2 8 AM CDT Respiratory Rule-Out 02/23/2024 02/23/2024 024 11:30 AM CDT Assessment Noted Time PHQ-9 Depression Total Score: 2 07/14/19 20 10:00 AM CELLOPHANE WRAPPING EXAMINER documented as of this encounter Care Teams Color Corrector Relationship Specialty Start Date End Date Luann Cox MD PCP - General Family Medicine 04/15/15 11/02/22 Josiane Pacheco MD [address] [place] [address] PCP - General Family Medicine 11/20/22 07/30/23 Darwin Marti MD [address] [place] [address] PCP - General Internal Medicine 07/31/23 Blair Paris MD 4 [facility] [address] [place] [address] Consulting Physician Orthopaedic Sports Medicine 07/31/23 Jose A Espinosa MD [address] [address] Consulting Physician Pain Medicine-Pain Management 07/31/23 02/08/24 Hao Silvestre MD [address] [address] Consulting Physician Neurological Surgery 07/31/23 Carlos Dailey MD #[address] [place] [address] [address] Consulting Physician Colon and Rectal Surgery 10/26/23 Saida Mckeon APRN, FRANCHISE DEVELOPMENT MANAGER #[address] [place] [address] Nurse Practitioner Gastroenterology 10/26/23 Jessenia Ward APRN, PLANISHER [address] [place] [address] Nurse Practitioner Neurology 11/17/23 Hao Silvestre MD [address] [place] [address] Consulting Physician Neurological Surgery 02/09/2401/27 Dominic Wang MD #[address] [place] [address] Consulting Physician Pain Medicine-Pain Management 02/09/24 Butch Muñiz MD #[address] [place] [address] Consulting Physician Neurology 02/23/24 documented as of this encounter
--- OUTSIDE RECORDS SUMMARY | 2025-03-06 14:14 | XMS_ITS | Encounter Summary ---
Author Organization [facility] Address [address] [place] [address] Phone Care Team Providers Care Stone Carver Name Role Phone Luann Cox MD Primary Care Provider + [phone] Josiane Pacheco MD Primary Care Provider + [phone] Blair Paris MD Unavailable +[phone] Jose A Espinosa MD Unavailable +[phone] Darwin Marti MD Primary Care Provider [phone] Hao Silvestre MD Unavailable [phone] Carlos Dailey MD Unavailable Saida Mckeon APRN, ENGINE COWLING INSTALLER Unavailable Jessenia Ward APRN, POCKET ASSEMBLER Unavailable + [phone] Hao Silvestre MD Unavailable +[phone] Dominic Wang MD Unavailable [phone] Butch Muñiz MD Unavailable +[phone] Reason for Visit * Reason Comments Medication Refill Encounter Details Date Type Department Care Team (Late st Contact Info) Description 01/27/2021 Refill [facility] - Primary Care - [place] [address] [place] [phone] Luann Cox MD [address] [place] [address] Medication Refill Social History Tobacco [...] Spinal stenosis, lumbar region, with neurogenic claudication [facility] - Family Medicine - [facility] Luann Cox MD 6 months ago Uncomplicated asthma [facility] Luann Cox MD 1 year ago Essential hypertension [facility] Luann Cox MD 1 year ago Essential hypertension [facility] Luann Cox MD 2 years ago Essential hypertension [facility] Luann Cox MD Upcoming Appointments Future Appointments In 1 month Luann Cox MD [facility] [place] MAT ASSEMBLER - Recent and Past Visits Recent Visits Date Type Provider Dept 09/06/20 Office Visit Luann Cox MD [facility] 07/24/20 Office Visit Luann Cox MD [facility] 01/12/20 Office Visit Luann Cox MD [facility] Showing recent visits within past 460 days with a meds authorizing provider and meeting all other requirements Future Appointments Date Type Provider Dept 03/07/21 Appointment [facility] Visit [facility]20 Office Visit Luann Cox MD [facility] Showing recent visits within past 365 days and meeting all other requirements Future Appointments Date Type Provider Dept 03/07/21 Appointment Luann Cox MD [facility] Showing future appointments within next 90 days and meeting all other requirements documented in this encounter Plan of Treatment Upcoming Encounters Date Type Department Care Team (Late st Contact Info) Description 03/09/2025 2:30 PM CDT Office Visit [facility] - Family Medicine - [place] [address] [place] [address] Juan Shrestha MD #[address] [address] 04/21/2025 11:00 AM CDT Office Visit [facility] - Neurology - [place] [address] [place] [address] Jessenia Ward APRN, POCKET ASSEMBLER [address] [place] [address] documented as of this encounter Visit Diagnoses Diagnosis Neuropathy Mononeuritis of unspecified site documented in this encounter Additional Health Concerns Infection Onset Date Last Indicated Resolved Time ESBL 08/16/2018 08/16/2018 09/28/2023 9:03 AM CDT COVID - 19 03/09/2023 03/09/2023 03/19/2023 12:1 6 AM CDT Respiratory Rule-Out 03/09/2023 03/09/2023 023 2:09 AM CDT COVID - 19 05/07/2023 05/07/2023 05/07/2023 9:50 AM ENTRY LEVEL MACHINE OPERATOR COVID - 19 Confirmed 05/07/2023 05/07/2023 023 12:16 AM ENTRY LEVEL MACHINE OPERATOR C. difficile Rule-Out 09/24/2023 09/24/20232023 3:41 PM CDT COVID - 19 09/24/2023 09/24/2023 09/24/2023 11:3 2 AM CDT C. difficile Rule-Out 09/27/2023 09/27/20232023 2:13 PM CDT COVID - 19 02/23/2024 02/23/2024 02/23/2024 11:2 8 AM CDT Respiratory Rule-Out 02/23/2024 02/23/2024 024 11:30 AM CDT Assessment Noted Time PHQ-9 Depression Total Score: 2 07/14/19 20 10:00 AM ENTRY LEVEL MACHINE OPERATOR documented as of this encounter Care Teams Stone Carver Relationship Specialty Start Date End Date Luann Cox MD PCP - General Family Medicine 04/15/15 11/02/22 Josiane Pacheco MD [address] [place] [address] PCP - General Family Medicine 11/20/22 07/30/23 Darwin Marti MD [address] [place] [address] PCP - General Internal Medicine 07/31/23 Blair Paris MD 4 [facility] [address] [place] [address] Consulting Physician Orthopaedic Sports Medicine 07/31/23 Jose A Espinosa MD 2 [facility] [address] [place] [address] Consulting Physician Pain Medicine-Pain Management 07/31/23 02/08/24 Hao Silvestre MD [address] [address] Consulting Physician Neurological Surgery 07/31/23 Carlos Dailey MD #2 [facility] [address] [place] [address] Consulting Physician Colon and Rectal Surgery 10/26/23 Saida Mckeon APRN, ENGINE COWLING INSTALLER #[address] [place] [address] Nurse Practitioner Gastroenterology 10/26/23 Jessenia Ward APRN, POCKET ASSEMBLER #[address] [place] [address] Nurse Practitioner Neurology 11/17/23 Hao Silvestre MD [address] [address] Consulting Physician Neurological Surgery 02/09/2401/27 Dominic Wang MD #[address] [place] [address] Consulting Physician Pain Medicine-Pain Management 02/09/24 Butch Muñiz MD #[address] [place] [address] Consulting Physician Neurology 02/23/24 documented as of this encounter
--- OUTSIDE RECORDS SUMMARY | 2025-03-06 14:14 | XMS_ITS | Encounter Summary ---
Author Organization [facility] Address [address] [place] [address] Phone Care Team Providers Care Diver'S Tender Name Role Phone Luann Cox MD Primary Care Provider + [phone] Josiane Pacheco MD Primary Care Provider + [phone] Blair Paris MD Unavailable [phone] Jose A Espinosa MD Unavailable [phone] Darwin Marti MD Primary Care Provider [phone] Hao Silvestre MD Unavailable [phone] Carlos Dailey MD Unavailable Saida Mckeon APRN, OPERATING ROOM SURGICAL TECHNICIAN Unavailable Jessenia Ward APRN, MEDICAL EQUIPMENT REPAIR TECHNICIAN Unavailable + [phone] Hao Silvestre MD Unavailable [phone] Dominic Wang MD Unavailable [phone] Butch Muñiz MD Unavailable [phone] Reason for Visit * Reason Comments Medication Refill Encounter Details Date Type Department Care Team (Late st Contact Info) Description 04/19/2021 Refill [facility] - Primary Care - [place] [address] [place] [id number] Luann Cox MD [address] [place] [address] Medication Refill Social History Tobacco [...] Dept 03/07/21 Office Visit Luann Cox MD [facility] 09/06/20 Office Visit Luann Cox MD [facility] 07/24/20 Office Visit Luann Cox MD [facility] Showing recent visits within past 365 days and meeting all other requirements Future Appointments Date Type Provider Dept 06/13/21 Appointment Luann Cox MD [facility] Showing future [...] Dept 03/07/21 Office Visit Luann [facility] MD [facility] 09/06/20 Office Visit Luann Cox MD [facility] 07/24/20 Office Visit Luann Cox MD [facility] Showing recent visits within past 365 days and meeting all other requirements Future Appointments Date Type Provider Dept 06/13/21 Appointment Luann Cox MD [facility] [place] Showing future appointments [...] Dept 03/07/21 Office Visit Luann Cox MD [facility] 09/06/20 Office Visit Luann Cox MD [facility] 07/24/20 Office Visit Luann Cox MD [facility] Showing recent visits within past 365 days and meeting all other requirements Future Appointments Date Type Provider Dept 06/13/21 Appointment Luann Cox MD [facility] Showing future appointments within next 90 days and meeting all other requirements Passed - Normal TSH in past 12 months TSH Date Value Ref Range Status 03/05/2021 2.770 0.270 - 4.200 mIU/L Final documented in this encounter Plan of Treatment Upcoming Encounters Date Type Department Care Team (Late st Contact Info) Description 03/09/2025 2:30 PM CDT Office Visit [facility] Medical [facility] - Family Medicine [facility] [address] [place] [address] Juan Shrestha MD [address] [address] 04/21/2025 11:00 AM CDT Office Visit [facility] - Neurology [facility] [address] [place] [id number] Jessenia Ward APRN, MEDICAL EQUIPMENT REPAIR TECHNICIAN [address] [place] [address] documented as of this encounter Visit Diagnoses [...] - 19 05/07/2023 05/07/2023 05/07/2023 9:50 AM AUTOMATIC GRINDER OPERATOR COVID - 19 Confirmed 05/07/2023 05/07/2023 023 12:16 AM AUTOMATIC GRINDER OPERATOR C. difficile Rule-Out 09/24/2023 09/24/20232023 3:41 PM CDT COVID - 19 09/24/2023 09/24/2023 09/24/2023 11:3 2 AM CDT C. difficile Rule-Out 09/27/2023 09/27/20232023 2:13 PM CDT COVID - 19 02/23/2024 02/23/2024 02/23/2024 11:2 8 AM CDT Respiratory Rule-Out 02/23/2024 02/23/2024 024 11:30 AM CDT Assessment Noted Time PHQ-9 Depression Total Score: 2 07/14/19 20 10:00 AM AUTOMATIC GRINDER OPERATOR documented as of this encounter Care Teams Diver'S Tender Relationship Specialty Start Date End Date Luann Cox MD PCP - General Family Medicine 04/15/15 11/02/22 Josiane Pacheco MD [address] [place] [address] PCP - General Family Medicine 11/20/22 07/30/23 Darwin Marti MD [address] [place] [address] PCP - General Internal Medicine 07/31/23 Blair Paris MD 4 [facility] [address] [place] [address] Consulting Physician Orthopaedic Sports Medicine 07/31/23 Jose A Espinosa MD 2 [facility] [address] [place] [address] Consulting Physician Pain Medicine-Pain Management 07/31/23 02/08/24 Hao Silvestre MD [address] [address] Consulting Physician Neurological Surgery 07/31/23 Carlos Dailey MD #[address] [address] Consulting Physician Colon and Rectal Surgery 10/26/23 Saida Mckeon APRN, OPERATING ROOM SURGICAL TECHNICIAN [address] [place] [address] Nurse Practitioner Gastroenterology 10/26/23 Jessenia Ward APRN, MEDICAL EQUIPMENT REPAIR TECHNICIAN [address] [place] [address] Nurse Practitioner Neurology 11/17/23 Hao Silvestre MD [address] [address] Consulting Physician Neurological Surgery 02/09/2401/27 Dominic Wang MD [address] [place] [address] Consulting Physician Pain Medicine-Pain Management 02/09/24 Butch Muñiz MD [address] [place] [address] Consulting Physician Neurology 02/23/24 documented as of this encounter
--- OUTSIDE RECORDS SUMMARY | 2025-03-06 14:14 | XMS_ITS | Encounter Summary ---
Author Organization [facility] Address [address] [place] [address] Phone Care Team Providers Care Reference Assistant Name Role Phone Luann Cox MD Primary Care Provider + [phone] Josiane Pacheco MD Primary Care Provider + [phone] Blair Paris MD Unavailable [phone] Jose A Espinosa MD Unavailable [phone] Darwin Marti MD Primary Care Provider [phone] Hao Silvestre MD Unavailable [phone] Carlos Dailey MD Unavailable Saida Mckeon APRN, SUPERVISOR ROAD ADMINISTRATOR Unavailable Jessenia Ward APRN, INTERNAL MEDICINE HOSPITALIST Unavailable + [phone] Hao Silvestre MD Unavailable [phone] Dominic Wang MD Unavailable [phone] Butch Muñiz MD Unavailable [phone] Reason for Visit * Reason Comments Medication Refill Encounter Details Date Type Department Care Team (Late st Contact Info) Description 04/27/2021 Refill [facility] - [facility] Care - [place] [address] [place] [phone] Luann Cox MD [address] [place] [address] Medication Refill Social History Tobacco [...] Dept 03/07/21 Office Visit Luann Cox MD [facility] 09/06/20 Office Visit Luann Cox MD [facility] [address] 07/24/20 Office Visit Luann Cox MD [facility] [place] Showing recent visits within past 365 days and meeting all other requirements Future Appointments Date Type Provider Dept 06/13/21 Appointment Luann Cox MD [facility] [place] Showing future appointments within next 90 days [...] Dept 03/07/21 Office Visit Luann Cox MD [facility] [address] 09/06/20 Office Visit Luann Cox MD [facility] [address] 07/24/20 Office Visit Luann Cox MD [facility] [place] Showing recent visits within past 365 days and meeting all other requirements Future Appointments Date Type Provider Dept 06/13/21 Appointment Luann Cox MD [facility] [place] Showing future appointments within next 90 days and meeting all other requirements documented in this encounter Plan of Treatment Upcoming Encounters Date Type Department Care Team (Late st Contact Info) Description 03/09/2025 2:30 PM CDT Office Visit [facility] Medical [facility] - Family Medicine - [place] [address] [place] [address] Juan Shrestha MD [address] [address] 04/21/2025 11:00 AM CDT Office Visit [facility] - Neurology - [place] [address] [place] [phone] Jessenia Ward APRN, INTERNAL MEDICINE HOSPITALIST [address] [place] [address] documented as of this encounter Visit Diagnoses Diagnosis Hyperlipidemia, unspecified hyperlipidemia type documented in this encounter Additional Health Concerns Infection Onset Date Last Indicated Resolved Time ESBL 08/16/2018 08/16/2018 09/28/2023 9:03 AM CDT COVID - 19 03/09/2023 03/09/2023 03/19/2023 12:1 6 AM CDT Respiratory Rule-Out 03/09/2023 03/09/2023 023 2:09 AM CDT COVID - 19 05/07/2023 05/07/2023 05/07/2023 9:50 AM TAR ROOFER COVID - 19 Confirmed 05/07/2023 05/07/2023 023 12:16 AM TAR ROOFER C. difficile Rule-Out 09/24/2023 09/24/20232023 3:41 PM CDT COVID - 19 09/24/2023 09/24/2023 09/24/2023 11:3 2 AM CDT C. difficile Rule-Out 09/27/2023 09/27/20232023 2:13 PM CDT COVID - 19 02/23/2024 02/23/2024 02/23/2024 11:2 8 AM CDT Respiratory Rule-Out 02/23/2024 02/23/2024 024 11:30 AM CDT Assessment Noted Time PHQ-9 Depression Total Score: 2 07/14/19 20 10:00 AM TAR ROOFER documented as of this encounter Care Teams Reference Assistant Relationship Specialty Start Date End Date Luann Cox MD PCP - General Family Medicine 04/15/15 11/02/22 Josiane Pacheco MD [address] [place] [address] PCP - General Family Medicine 11/20/22 07/30/23 Darwin Marti MD [address] [place] [address] PCP - General Internal Medicine 07/31/23 Blair Paris MD 4 [facility] [address] [place] [address] Consulting Physician Orthopaedic Sports Medicine 07/31/23 Jose A Espinosa MD 2 [facility] [address] [place] [address] Consulting Physician Pain Medicine-Pain Management 07/31/23 02/08/24 Hao Silvestre MD [address] [address] Consulting Physician Neurological Surgery 07/31/23 Carlos Dailey MD [address]2 [facility] [address] [place] [address] Consulting Physician Colon and Rectal Surgery 10/26/23 Saida Mckeon APRN, SUPERVISOR ROAD ADMINISTRATOR [address] [place] [address] Nurse Practitioner Gastroenterology 10/26/23 Jessenia Ward APRN, INTERNAL MEDICINE HOSPITALIST [address] [place] [address] Nurse Practitioner Neurology 11/17/23 [place] [address] [place] [address] Consulting Physician Neurological Surgery 02/09/2401/27 Dominic Wang MD [address] [place] [address] Consulting Physician Pain Medicine-Pain Management 02/09/24 Butch Muñiz MD [address] [place] [address] Consulting Physician Neurology 02/23/24 documented as of this encounter
--- NOTE | 2025-03-06 14:34 | ED.GENADULT ---
HPI - General Adult General Chief complaint: Back Pain/Injury Stated complaint: back surgery 01/10, bilat leg swelling,leg/hip pain Time Seen by Provider: 03/06/25 14:01 History of Present Illness HPI narrative: 75-year-old female presents emergency department for evaluation for lower extremity edema that has worsened over the last few days. Patient had back surgery on 01/10 here at [place]. Patient was having poorly controlled pain and did have follow-up with Neurosurgery, patient had a CT scan on 03/01 but this has not yet been read by Radiology. Patient was told by Radiology that she has a displaced wire and will need surgical revision but patient has not yet been able to have this scheduled and she was supposed here from Neurosurgery tomorrow. Patient reports she has had some overflow urgency with urine and does have bilateral lower extremity edema. Patient denies any incontinence to stool. Related Data Home Medications ?Medication ?Instructions ?Recorded ?Confirmed ?Last Taken ?Type albuterol sulfate 90 mcg/actuation 1 inh inhalation Q4-6H PRN Wheezing 04/13/23 03/06/25 01/10/25 History breath activated powder inhaler calcium carbonate (Calcium 600) 600 mg PO DAILY 04/13/23 03/06/25 01/06/25 History cetirizine 10 mg tablet 10 mg PO DAILY PRN Congestion 04/13/23 03/06/25 01/10/25 History gabapentin 300 mg capsule 300 mg PO Q12H 04/13/23 03/06/25 01/10/25 History hydroxyzine HCl 25 mg tablet 25 mg PO QID PRN Anxiety 04/13/23 03/06/25 01/10/25 History levothyroxine 50 mcg capsule 50 mcg PO DAILY 04/13/23 03/06/25 01/10/25 History meclizine 25 mg tablet 25 mg PO TID PRN Dizziness Or 04/13/23 03/06/25 07/18/24 History Vertigo pantoprazole 40 mg tablet,delayed 40 mg PO QAM 04/13/23 03/06/25 07/18/24 History release simvastatin 40 mg tablet 40 mg PO DAILY 04/13/23 03/06/25 01/09/25 History cholecalciferol (vitamin D3) 250 250 mcg PO DAILY 07/27/23 03/06/25 07/15/24 History mcg (10,000 unit) capsule multivitamin 1 tablet PO DAILY 07/27/23 03/06/25 01/06/25 History clopidogrel 75 mg tablet 75 mg PO DAILY 11/23/23 03/06/25 01/03/25 History Held on 01/14/25. Instructions: Resume on 01/21/25. budesonide 6 mg capsule,extended 6 mg PO DAILY 01/07/24 03/06/25 07/18/24 History release cholecalciferol (vitamin D3) 25 25 mcg PO DAILY 07/11/24 03/06/25 01/06/25 History mcg (1,000 unit) capsule hydrochlorothiazide 12.5 mg capsule 12.5 mg PO DAILY 07/11/24 03/06/25 01/09/25 History lisinopril 10 mg tablet 10 mg PO DAILY 07/11/24 03/06/25 01/09/25 History budesonide-formoterol HFA 80 2 inh inhalation DAILY 12/29/24 03/06/25 Unknown History mcg-4.5 mcg/actuation aerosol inhaler (Symbicort) meloxicam 15 mg tablet 15 mg PO DAILY 12/29/24 03/06/25 01/03/25 History Allergies Allergy/AdvReac Type Severity Reaction Status Date / Time Fish Containing Products Allergy Severe Vomiting Verified 03/06/25 18:46 latex Allergy Severe Itching Verified 03/06/25 18:46 Penicillins Allergy Severe Hives Verified 03/06/25 18:46 codeine Allergy Mild Hives AND Verified 03/06/25 18:46 VOMITING strawberry Allergy Mild Hives Verified 03/06/25 18:46 hydrocodone (From Vicodin) AdvReac Severe Vomiting Verified 03/06/25 18:46 meperidine (From Demerol) AdvReac Severe Vomiting Verified 03/06/25 18:46 tetanus and diphtheria AdvReac Severe Swelling Verified 03/06/25 18:46 toxoids kiwi AdvReac Mild Hives Verified 03/06/25 18:46 Sulfa (Sulfonamide AdvReac Mild Vomiting Verified 03/06/25 18:46 Antibiotics) tramadol AdvReac Mild Nausea Verified 03/06/25 18:46 Review of Systems Review of Systems: All systems reviewed & are unremarkable except as noted in HPI and below PMFSH Past Medical History Medical History MVP (mitral valve prolapse) said she was having spells and then was put on blood thinners because of her MVP and now she doesn't have these spells Skin cancer Anxiety Hypothyroidism Hyperlipidemia Hypertension Asthma Surgical History Surgical History Previous back surgery History of hysterectomy History of tonsillectomy History of bladder surgery History of lumbar discectomy History of lumbar laminectomy History of appendectomy Family History Family History Mother Diabetes mellitus Hypertension Heart problem Thyroid disorder Social History Social History Years smoked: 35 Smoking status: Never smoker Second hand tobacco smoke exposure: Yes Alcohol intake: never Alcohol use details: Rarely Substance use: never Substance use type: does not use Do You Feel Safe in your Home?: Yes Lack of Transportation: No Lack of Food: Never True Current Housing: I Have Housing Concerned About Future Housing: No Difficulty Paying Gas/Electric Bills: No Difficulty Paying for Meds: No Currently Unemployed: No Education: Decline to Answer Difficulty w/ Childcare or Family Care: No Living arrangements: with family Additional living arrangements comments: LIVES WITH DISABLED SPOUSE Spiritual care concerns: No Exam Narrative: APPEARANCE: Uncomfortable appearing HEAD: normocephalic, atraumatic. EYES: PERRLA/EOMI, conjunctivae clear. NOSE: Normal no drainage EARS:TMS clear with good light reflex. THROAT: Pharynx clear, no exudate. NECK: Supple. No adenopathy, no masses. RESPIRATORY: Airway patent, respirations nonlabored. Clear to auscultation bilaterally, no rales, rhonchi, wheezing. CARDIOVASCULAR: Regular rate and rhythm without murmurs rubs or gallops. ABDOMINAL: Soft, nontender, nondistended, normal bowel sounds MUSCULOSKELETAL: Bilateral lower extremity edema NEURO: Alert. Cranial nerves II through XII intact. Good gait. Good coordination SKIN: Warm, dry. Normal Color Course Vital Signs Vital signs: Vital Signs Temperature 97.7 F 03/06/25 12:48 Pulse Rate 78 03/06/25 12:48 Respiratory Rate 18 03/06/25 12:48 Blood Pressure 123/76 03/06/25 12:48 Pulse Oximetry 100 03/06/25 12:48 Oxygen Delivery Room Air 03/06/25 12:48 Temperature 98.1 F 03/06/25 18:25 Pulse Rate 93 03/06/25 18:25 Respiratory Rate 16 03/06/25 18:25 Blood Pressure 115/65 03/06/25 18:25 Pulse Oximetry 97 03/06/25 18:25 Oxygen Delivery Room Air 03/06/25 12:48 Medical Decision Making MDM Narrative Medical decision making narrative: 75-year-old female presents emergency department for evaluation for lower extremity edema and worsening back pain. Patient does have +3 pitting edema lower extremities bilaterally. Ultrasound was negative for DVT. Patient is currently afebrile with no leukocytosis hemoglobin of 9.5. INR is 0.9. No significant acute abnormalities on the CMP. Patient's proBNP was mildly elevated at 488. Patient had a CT scan that was done on 03/01 and was read by radiology today and did recommend MRI. I discussed the CT findings with neurosurgery and they are willing to see the patient in a hospital and did recommend ordering the MRI of the lumbar spine. Case was discussed with the hospitalist. Patient is post residual bladder scan was negative. Patient family updated the results of the workup and plan for admission. All questions concerns were addressed. Differential Diagnosis Differential Diagnosis: Postop complication, UTI, CHF, DVT, cellulitis, dependent edema Vital Signs Vital Signs: Vital Signs Temperature 97.7 F 03/06/25 12:48 Pulse Rate 78 03/06/25 12:48 Respiratory Rate 18 03/06/25 12:48 Blood Pressure 123/76 03/06/25 12:48 Pulse Oximetry 100 03/06/25 12:48 Oxygen Delivery Room Air 03/06/25 12:48 Temperature 98.1 F 03/06/25 18:25 Pulse Rate 93 03/06/25 18:25 Respiratory Rate 16 03/06/25 18:25 Blood Pressure 115/65 03/06/25 18:25 Pulse Oximetry 97 03/06/25 18:25 Oxygen Delivery Room Air 03/06/25 12:48 Lab Data Lab results reviewed: Yes I reviewed the patient's lab results. 03/06/25 14:53 03/06/25 14:53 Labs: Lab Results 03/06/25 Range/Units 14:53 WBC 5.0 (4.5-10.0) K/mm3 RBC 3.24 L (4.2-5.4) M/mm3 Hgb 9.5 L (12.0-15.0) g/dL Hct 30.2 L (37.0-47.0) % MCV 93.2 (80-100) fl MCH 29.3 (26-34) pg MCHC 31.5 L (32-36) g/dl RDW 14.6 H (11.5-14.5) % Plt Count 222 (150-375) k/mm3 MPV 10.3 (7.4-10.4) fl Immature Gran % (Auto) 0.2 (0-0.5) % Neut % (Auto) 46.3 (45.5-73.1) % Lymph % (Auto) 43.6 (18.3-44.2) % [place] % (Auto) 7.5 (2.6-8.5) % Eos % (Auto) 1.6 (0-4.4) % Baso % (Auto) 0.8 (0.2-1.2) % Lymph # (Auto) 2.16 (0.9-3.2) K/mm3 [place] # (Auto) 0.4 (0.1-0.6) K/mm3 Eos # (Auto) 0.1 (0-0.3) K/mm3 Baso # (Auto) 0.0 (0.0-0.1) K/mm3 Abs Immat Gran (auto) 0.01 (0.00-0.031) K/mm3 Absolute Neuts (auto) 2.3 (1.3-6.7) K/mm3 Absolute Nucleated RBC 0.000 (0.0-0.012) K/mm3 Nucleated RBC % 0.0 (0.0-0.2) % PT 12.4 (11.1-14.7) Seconds INR 0.9 APTT 23.7 (22.3-36.8) Seconds Sodium 136 L (137-145) mmol/L Potassium 4.8 (3.4-5.0) mmol/L Chloride 103 (98-107) mmol/L Carbon Dioxide 26 (22-30) mmol/L Anion Gap 7 (4-12) mmol/L BUN 25 H (7-17) mg/dL Creatinine 0.87 (0.7-1.0) mg/dL Estim Creat Clear Calc Not Reportable Estimated GFR > 60 (59 - ) Glucose 91 (65-110) mg/dL Calcium 9.2 (8.4-10.2) mg/dL Total Bilirubin 0.3 (0.2-1.3) mg/dL AST 41 H (14-36) U/L ALT 34 (6-35) U/L Alkaline Phosphatase 112 (38-126) U/L NT-Pro-B Natriuret Pep 488 H (19.9-100) pg/mL Total Protein 6.9 (6.3-8.2) g/dL Albumin 3.9 (3.5-5.1) g/dL Imaging Data Radiologist's impression: Impressions Venous Doppler Study 03/06/25 14:49 IMPRESSION: 1. No deep venous thrombosis in either lower limb. Chest X-Ray 03/06/25 16:17 IMPRESSION: 1: NO ACUTE CARDIOPULMONARY DISEASE. Discharge Plan Discharge Clinical Impression: Edema of left lower extremity Back pain Qualifiers: Back pain location: low back pain Chronicity: acute Back pain laterality: bilateral Sciatica presence: with sciatica Sciatica laterality: sciatica of right side Qualified Code(s): M54.41 - Lumbago with sciatica, right side Patient Disposition: Still a Patient Condition: Serious
[2025-03-06] MEDS: fentaNYL CITRATE INJ (*CRX) 100 MCG/2 ML VIAL 50 MCG IV PUSH ×5 (14:56→22:46)
[2025-03-06 15:00] LABS: Hematocrit 30.2 % (37.0-47.0); Hemoglobin 9.5 g/dL (12.0-15.0); Immature Granulocyte Percent A 0.2 % (0-0.5); Lymphocytes Absolute Auto 2.16 K/mm3 (0.9-3.2); Mean Corpuscular HGB Conc 31.5 g/dl (32-36); Mean Corpuscular Hemoglobin 29.3 pg (26-34); Mean Corpuscular Volume 93.2 fl (80-100); Nucleated Red Blood Cells Absolute Auto 0.000 K/mm3 (0.0-0.012); Nucleated Red Blood Cells Perc 0.0 % (0.0-0.2); Platelet Count Result 222 k/mm3 (150-375); Red Blood Count 3.24 M/mm3 (4.2-5.4); White Blood Count 5.0 K/mm3 (4.5-10.0)
[2025-03-06 15:11] LABS: INR 0.9; Partial Thromboplastin Time 23.7 Seconds (22.3-36.8); Prothrombin Time 12.4 Seconds (11.1-14.7)
[2025-03-06 15:15] LABS: Alanine Aminotransferase 34 U/L (6-35); Albumin Level 3.9 g/dL (3.5-5.1); Alkaline Phosphatase 112 U/L (38-126); Anion Gap 7 mmol/L (4-12); Aspartate Amino Transferase 41 U/L (14-36); Bilirubin,Total 0.3 mg/dL (0.2-1.3); Blood Urea Nitrogen 25 mg/dL (7-17); Calcium 9.2 mg/dL (8.4-10.2); Carbon Dioxide 26 mmol/L (22-30); Chloride 103 mmol/L (98-107); Estimated Glomerular Filt Rate > 60; Glucose 91 mg/dL (65-110); Potassium 4.8 mmol/L (3.4-5.0); Sodium 136 mmol/L (137-145); Total Protein 6.9 g/dL (6.3-8.2)
[2025-03-06 15:19] LABS: NT Pro B Type Natriuretic Pept 488 pg/mL (19.9-100)
--- NOTE | 2025-03-06 16:00 | PM.IMHP ---
H&P: HPI History of Present Illness Date/Time: 03/06/25 16:00 Chief Complaint: Back Pain, LE Edema Narrative: 75 y/o F with PMH of mitral valve prolapse, hypothyroidism, hyperlipidemia, asthma, and hypertension presents here with back pain and lower extremity edema. The patient presents here for further evaluation of back pain and lower extremity edema on 03/06. She had a L5-S1 posterior lumbar interbody fusion and L3-4 hemilaminectomy done on 01/10/2025 by Konrad VELA. She had significant back pain postop, otherwise no particular issues while she was hospitalized and she was discharged home on 01/14. She reports after surgery she developed significant discomfort in her lower back which radiated into her right buttock, left sacral area, and it down her right leg to her foot (now down both legs). Pain has been ongoing since surgery but has been worsening in the last few weeks. She followed up with her neurosurgeon on 02/21 for this issue. She had an x-ray of her lumbar spine which showed hardware/interbody devices were in good position except a left broad which seem to not be seated in the left S1 screw head. Plan was for further investigation via a CT scan which was completed on 03/01 which showed severe lower lumbar spondylosis s/p laminectomy and combine instrumented L5/S1 spinal fusion, subacute to early chronic still discernable nondisplaced coronally oriented fracture extending across anterior base of the right L5 pedicle, increased soft tissue density at the laminectomy bed with suggestion of moderate residual central canal stenosis at this level, interval instrumented left sacroiliac arthrodesis. Patient is additionally reporting it new difficulty urinating for the past week. Previously had had urinary incontinence for years. As well as lower extremity edema for the past 3-4 days. She denies accompanying bowel incontinence or saddle anesthesia. Patient previously walked with a cane prior to surgery. Now has to ambulate with a walker and has experienced a few falls due to the pain. Initial VS at presentation: 97.7? F, HR 78, R 18, 123/76, and 100% on RA. ED workup showed: No leukocytosis, hemoglobin 9.5, no significant electrolyte derangements, creatinine 0.87 and GFR >60, BNP 488 (WNL for age). BLE US showed no DVT. CXR showed no acute cardiopulmonary disease. Review of Systems Review of Systems: All systems reviewed & are unremarkable except as noted in HPI and below [facility] Past Medical History Medical History MVP (mitral valve prolapse) said she was having spells and then was put on blood thinners because of her MVP and now she doesn't have these spells Skin cancer Anxiety Hypothyroidism Hyperlipidemia Hypertension Asthma Surgical History Surgical History Previous back surgery History of hysterectomy History of tonsillectomy History of bladder surgery History of lumbar discectomy History of lumbar laminectomy History of appendectomy Family History Family History Mother Diabetes mellitus Hypertension Heart problem Thyroid disorder Social History Social History Years smoked: 35 Smoking status: Never smoker Second hand tobacco smoke exposure: Yes Alcohol intake: never Alcohol use details: Rarely Substance use: never Substance use type: does not use Do You Feel Safe in your Home?: Yes Lack of Transportation: No Lack of Food: Never True Current Housing: I Have Housing Concerned About Future Housing: No Difficulty Paying Gas/Electric Bills: No Difficulty Paying for Meds: No Currently Unemployed: No Education: Decline to Answer Difficulty w/ Childcare or Family Care: No Living arrangements: with family Additional living arrangements comments: LIVES WITH DISABLED SPOUSE Spiritual care concerns: No Meds Home Medications and Allergies Home Medications ?Medication ?Instructions ?Recorded ?Confirmed ?Type albuterol sulfate 90 mcg/actuation 1 inh inhalation Q4-6H PRN Wheezing 04/13/23 03/06/25 History breath activated powder inhaler calcium carbonate (Calcium 600) 600 mg PO DAILY 04/13/23 03/06/25 History cetirizine 10 mg tablet 10 mg PO DAILY PRN Congestion 04/13/23 03/06/25 History gabapentin 300 mg capsule 300 mg PO Q12H 04/13/23 03/06/25 History hydroxyzine HCl 25 mg tablet 25 mg PO QID PRN Anxiety 04/13/23 03/06/25 History levothyroxine 50 mcg capsule 50 mcg PO DAILY 04/13/23 03/06/25 History meclizine 25 mg tablet 25 mg PO TID PRN Dizziness Or 04/13/23 03/06/25 History Vertigo pantoprazole 40 mg tablet,delayed 40 mg PO QAM 04/13/23 03/06/25 History release simvastatin 40 mg tablet 40 mg PO DAILY 04/13/23 03/06/25 History cholecalciferol (vitamin D3) 250 250 mcg PO DAILY 07/27/23 03/06/25 History mcg (10,000 unit) capsule multivitamin 1 tablet PO DAILY 07/27/23 03/06/25 History clopidogrel 75 mg tablet 75 mg PO DAILY 11/23/23 03/06/25 History Held on 01/14/25. Instructions: Resume on 01/21/25. budesonide 6 mg capsule,extended 6 mg PO DAILY 01/07/24 03/06/25 History release cholecalciferol (vitamin D3) 25 25 mcg PO DAILY 07/11/24 03/06/25 History mcg (1,000 unit) capsule hydrochlorothiazide 12.5 mg capsule 12.5 mg PO DAILY 07/11/24 03/06/25 History lisinopril 10 mg tablet 10 mg PO DAILY 07/11/24 03/06/25 History cyclobenzaprine 10 mg tablet 10 mg PO TID PRN Muscle Spasms 10 07/20/24 03/06/25 Rx days #30 tabs budesonide-formoterol HFA 80 2 inh inhalation DAILY 12/29/24 03/06/25 History mcg-4.5 mcg/actuation aerosol inhaler (Symbicort) meloxicam 15 mg tablet 15 mg PO DAILY 12/29/24 03/06/25 History ondansetron 4 mg disintegrating 4 mg PO Q6H PRN nausea and 02/21/25 03/06/25 Rx tablet vomiting #30 tabs cyclobenzaprine 10 mg tablet 10 mg PO TID PRN muscle spasm #20 03/01/25 03/06/25 Rx tabs oxycodone-acetaminophen 5 mg-325 1 - 2 tablet PO Q6H PRN pain #40 03/02/25 03/06/25 Rx mg tablet tabs Allergies Allergy/AdvReac Type Severity Reaction Status Date / Time Fish Containing Products Allergy Severe Vomiting Verified 03/06/25 18:46 latex Allergy Severe Itching Verified 03/06/25 18:46 Penicillins Allergy Severe Hives Verified 03/06/25 18:46 codeine Allergy Mild Hives AND Verified 03/06/25 18:46 VOMITING strawberry Allergy Mild Hives Verified 03/06/25 18:46 hydrocodone (From Vicodin) AdvReac Severe Vomiting Verified 03/06/25 18:46 meperidine (From Demerol) AdvReac Severe Vomiting Verified 03/06/25 18:46 tetanus and diphtheria AdvReac Severe Swelling Verified 03/06/25 18:46 toxoids kiwi AdvReac Mild Hives Verified 03/06/25 18:46 Sulfa (Sulfonamide AdvReac Mild Vomiting Verified 03/06/25 18:46 Antibiotics) tramadol AdvReac Mild Nausea Verified 03/06/25 18:46 Vital Signs Vital Signs - 24 hr 03/06/25 12:48 03/06/25 14:06 03/06/25 14:59 Temperature 97.7 F Pulse Rate 78 81 89 Respiratory Rate 18 29 H 20 Blood Pressure 123/76 Pulse Oximetry 100 93 100 Oxygen Delivery Room Air 03/06/25 15:00 Temperature Pulse Rate 90 Respiratory Rate 23 H Blood Pressure 148/88 H Pulse Oximetry 100 Oxygen Delivery Exam Const: General: no acute distress and uncomfortable Other: , female, nontoxic appearance HENMT: Face/Nose/Sinus: Normal nares present Mouth: Yes moist mucous membranes Eyes: General: appearance normal, both eyes and all related structures Sclera: sclerae normal Pupils: Equal, round and reactive pupils present EOM: EOMs intact bilaterally Resp: Effort & Inspection: normal respiratory effort Auscultation: clear to auscultation bilaterally Cardio: Rate: regular rate Rhythm: regular rhythm Other: S1-S2 present without murmur, rub, ectopy GI: Other: Abdomen soft, nondistended, nontender. Normoactive bowel sounds in all quadrants. Skin: General skin exam: normal color and no rashes or lesions noted Wounds: no wounds Neuro: Speech: normal speech Motor exam (neuro): 5/5 motor strength present throughout Sensory Exam: normal sensation Other: No numbness or tingling, pain with movement in her lower back that radiates down her bilateral lower extremities. Extrem: Other: 1-2+ pitting edema, symmetric, and legs very tight/firm. Psych: Mental Status: mental status grossly normal Affect: Anxious affect present Other: good insight and judgement, pleasant. H&P: Results Labs Labs: Short CBC 03/06/25 Range/Units 14:53 WBC 5.0 (4.5-10.0) K/mm3 Hgb 9.5 L (12.0-15.0) g/dL Hct 30.2 L (37.0-47.0) % Plt Count 222 (150-375) k/mm3 BMP 03/06/25 14:53 Sodium 136 L Potassium 4.8 Chloride 103 Carbon Dioxide 26 BUN 25 H Creatinine 0.87 Glucose 91 Calcium 9.2 Liver Function 03/06/25 Range/Units 14:53 Total Bilirubin 0.3 (0.2-1.3) mg/dL AST 41 H (14-36) U/L ALT 34 (6-35) U/L Alkaline Phosphatase 112 (38-126) U/L Albumin 3.9 (3.5-5.1) g/dL Assessment and Plan Assessment and plan (1) Back pain: Qualifiers: Back pain laterality: bilateral Back pain location: low back pain Chronicity: acute Sciatica laterality: sciatica of right side Sciatica presence: with sciatica Qualified Code(s): M54.41 - Lumbago with sciatica, right side Code(s): M54.9 - Dorsalgia, unspecified Status: Acute Assessment and Plan: L5-S1 posterior lumbar interbody fusion and L3-4 hemilaminectomy done on 01/10/2025 by Konrad VELA. Initially complicated by post-operative pain. Plain films demonstrated good position of the hardware and interbody devices with the exception of the left srinath which seems to not be seated in the left S1 screw head per patient's neurosurgeon. CT was completed on 03/01 (see impression below) as follow-up on this imaging. Patient has also developed new difficulty urinating for the past week, historically has had urinary incontinence for years. - CT lumbar spine, 03/01: 1. Severe lower lumbar spondylosis status post interval L5 laminectomy and combined instrumented L5-S1 anterior and posterior spinal fusion. Of note there appears to be a subacute to early chronic still discernible nondisplaced coronally oriented fracture extends across the anterior base of the right L5 pedicle. 2. Although significantly more limited on CT than with MRI particularly in the presence of streak artifact related to the metallic instrumentation, there appears to be increased soft tissue density at the laminectomy bed with suggestion of moderate residual central canal stenosis at this level. Would consider further evaluation with MRI as clinically indicated. 3. Interval instrumented left sacroiliac arthrodesis. - neurosurgery consulted - MR lumbar spine - analgesics p.r.n. - check UA and bladder scan prn (2) Peripheral edema: Code(s): R60.0 - Localized edema Status: Acute Assessment and Plan: Reporting new, significant BLE edema. BNP WNL for age and CXR did not demonstrate any pulmonary edema. S/p lumbar surgery in December of 2024. Possible complications noted on imaging, see above. - elevate LEs - neli wraps as tolerated, may d/c at night to sleep - BNP and CXR not indicitative of CHF - complication to lumbar surgery/immobility? (3) Hypertension: Qualifiers: Hypertension type: primary hypertension Qualified Code(s): I10 - Essential (primary) hypertension Code(s): I10 - Essential (primary) hypertension Status: Chronic Assessment and Plan: - chronic, currently 132/80 - continue home medications: HCTZ, lisinopril - monitor Plan Diet: heart healthy GI Prophylaxis: n/a DVT Prophylaxis: lovenox SQ IV fluids: none Lines/Tubes: peripheral IV Code Status: full code Quality VTE Prophylaxis VTE prophylaxis: pharmacologic ordered Hospitalist MIPS Advance Care Plan I have confirmed that the patient's Advanced Care Plan is present, code status is documented, or surrogate decision maker is listed in patient medical record.: Yes Medication Reconciliation I have utilized all available resources to obtain, update and review the patients current medications (includes all prescriptions, OTC, herbals, cannabis, and nutritional supplements).: Yes
--- NOTE | 2025-03-06 17:19 | PC.NURSE ---
called dietary to order patient dinner tray
--- NOTE | 2025-03-06 18:18 | ADMGEN ---
This patient, Yaima Gutierrez, was admitted to Medical Room 259-. Patient/family oriented to hospital policies and general routines including ID bracelet, bed and alarms, visiting hours, pain management, procedures, bathroom and other care routines, personal items, smoking policy, room service/diet, and visiting hours. Information on how to activate the Rapid Response Team has been discussed. Patient/Family are encouraged to report perceived risks to care and to ask questions if they do not understand what they are told or what they should do.
[2025-03-06] MEDS: CYCLOBENZAPRINE HCL 10 MG TABLET PO (21:50)
[2025-03-06] MEDS: GABAPENTIN 300 MG CAPSULE PO (21:50)
[2025-03-06] MEDS: SODIUM CHLORIDE 0.9% IV 1,000 ML 100 ML IV CONT (23:41)
[2025-03-07 00:14] LABS: Add Urine Microscopic? YES; Appearance Urine Cloudy (Clear); Glucose Urine UA Negative (Negative); Leukocyte Esterase Ur 1+ LEU/UL (Negative); Nitrate Urine Positive (Negative); Non Pathogenic Casts 0-2; Specific Grav Ur 1.021 (1.001-1.035)
[2025-03-07] MEDS: fentaNYL CITRATE INJ (*CRX) 100 MCG/2 ML VIAL 50 MCG IV PUSH ×2 (03:44→08:14)
[2025-03-07 05:09] LABS: Hematocrit 28.2 % (37.0-47.0); Hemoglobin 8.6 g/dL (12.0-15.0); Immature Granulocyte Percent A 0.2 % (0-0.5); Lymphocytes Absolute Auto 1.22 K/mm3 (0.9-3.2); Mean Corpuscular HGB Conc 30.5 g/dl (32-36); Mean Corpuscular Hemoglobin 28.8 pg (26-34); Mean Corpuscular Volume 94.3 fl (80-100); Nucleated Red Blood Cells Absolute Auto 0.000 K/mm3 (0.0-0.012); Nucleated Red Blood Cells Perc 0.0 % (0.0-0.2); Platelet Count Result 199 k/mm3 (150-375); Red Blood Count 2.99 M/mm3 (4.2-5.4); White Blood Count 4.2 K/mm3 (4.5-10.0)
[2025-03-07 05:20] VITALS: BP 126/71; PULSE 87; RESP 20; TEMP 36.5; O2SAT 99
[2025-03-07 05:39] LABS: Anion Gap 6 mmol/L (4-12); Blood Urea Nitrogen 18 mg/dL (7-17); Calcium 8.9 mg/dL (8.4-10.2); Carbon Dioxide 26 mmol/L (22-30); Chloride 104 mmol/L (98-107); Estimated CRCL calculation 61 ml/min; Estimated Glomerular Filt Rate > 60; Glucose 87 mg/dL (65-110); Potassium 4.2 mmol/L (3.4-5.0); Sodium 136 mmol/L (137-145)
--- NOTE | 2025-03-07 07:57 | P.PNIM_ITS ---
Progress Note: A&P Assessment and Plan (1) Back pain: Qualifiers: Back pain laterality: bilateral Back pain location: low back pain Chronicity: acute Sciatica laterality: sciatica of right side Sciatica presence: with sciatica Qualified Code(s): M54.41 - Lumbago with sciatica, right side Code(s): M54.9 - Dorsalgia, unspecified Status: Acute Assessment and Plan: s/p L5-S1 posterior lumbar interbody fusion and L3-4 hemilaminectomy 01/10/[address] Silvestre. Initially complicated by post-operative pain. Plain films demonstrated good position of the hardware and interbody devices with the exception of the left srinath which seems to not be seated in the left S1 screw head per patient's neurosurgeon. CT was completed on 03/01 (see impression below) as follow-up on this imaging. Patient has also developed new difficulty urinating for the past week, historically has had urinary incontinence for years. - CT lumbar spine, 03/01: 1. Severe lower lumbar spondylosis status post interval L5 laminectomy and combined instrumented L5-S1 anterior and posterior spinal fusion. Of note there appears to be a subacute to early chronic still discernible nondisplaced coron ally oriented fracture extends across the anterior base of the right L5 pedicle. 2. Although significantly more limited on CT than with MRI particularly in the presence of streak artifact related to the metallic instrumentation, there appears to be increased soft tissue density at the laminectomy bed with suggestion of moderate residual central canal stenosis at this level. Would consider further evaluation with MRI as clinically indicated. 3. Interval instrumented left sacroiliac arthrodesis. - bladder scan with PVR 0 in ED - neurosurgery consulted - MR lumbar spine - analgesics - continue home gabapentin. Start PRN Percocet, Morphine for breakthrough. Trial tizanidine. Patient reports she is no longer on steroids. - PT/OT once NSG clears (2) Peripheral edema: Code(s): R60.0 - Localized edema Status: Acute Assessment and Plan: Reporting new, significant BLE edema. BNP WNL for age and CXR did not demonstrate any pulmonary edema. S/p lumbar surgery in December of 2024. Possible complications noted on imaging, see above. - neli wraps as tolerated, may d/c at night to sleep - BNP and CXR not indicative of CHF - BLE VD negative for DVT - complication to lumbar surgery/immobility? - mobilize as able. Elevate lower extremities. L (3) Urinary tract infection: Code(s): N39.0 - Urinary tract infection, site not specified Status: Acute Assessment and Plan: - UA with positive nitrates, 1+ LE, 6-10 WBC - patient reports urinary hesitancy - previous culture with pansensitive Klebsiella - start IV Rocephin, await urine culture (4) Hypertension: Qualifiers: Hypertension type: primary hypertension Qualified Code(s): I10 - Essential (primary) hypertension Code(s): I10 - Essential (primary) hypertension Status: Chronic Assessment and Plan: - chronic, currently 126/71 - continue home medications: HCTZ, lisinopril - monitor (5) Anemia: Code(s): D64.9 - Anemia, unspecified Status: Acute Assessment and Plan: - Hgb 11.7 7/3. 9.5 on admission, trended down to 8.6 - may have component of hemodilution as patient was on fluids overnight - denied signs of bleeding - check iron studies, occult stool - monitor CBC. Transfuse Hgb <7. Plan DVT Prophylaxis: lovenox SQ Code Status: full code Subjective Date/time seen: 03/07/25 07:57 Interval history: Patient seen and examined at bedside. Still very uncomfortable. Having sharp, shooting pain down her legs. Review of Systems Review of Systems: All systems reviewed & are unremarkable except as noted in HPI and below Exam Narrative: General: appears uncomfortable Eyes: EOMI ENT: neck supple Cardiovascular: Regular rate and rhythm Respiratory: Clear to auscultation, respirations even and unlabored on RA Gastrointestinal: Soft, non tender Genitourinary: no suprapubic tenderness Musculoskeletal: No edema Skin: warm, dry Neuro: Alert. Psych: Mood appropriate Objective Data Vital Signs Vital Signs: Vital Signs - 24 hr 03/06/25 12:48 03/06/25 14:06 03/06/25 14:59 Temperature 97.7 F Pulse Rate 78 81 89 Respiratory Rate 18 29 H 20 Blood Pressure 123/76 Pulse Oximetry 100 93 100 Oxygen Delivery Room Air 03/06/25 15:00 03/06/25 15:32 03/06/25 16:01 Temperature Pulse Rate 90 82 Respiratory Rate 23 H 16 Blood Pressure 148/88 H 161/97 H Pulse Oximetry 100 100 Oxygen Delivery 03/06/25 16:34 03/06/25 16:47 03/06/25 18:25 Temperature 98.1 F Pulse Rate 93 Respiratory Rate 16 Blood Pressure 115/65 Pulse Oximetry 99 100 97 Oxygen Delivery 03/06/25 20:00 03/06/25 20:24 03/06/25 20:29 Temperature 97.6 F Pulse Rate 85 Respiratory Rate 20 Blood Pressure 132/88 Pulse Oximetry 96 97 Oxygen Delivery Room Air Room Air 03/07/25 05:20 Temperature 97.7 F Pulse Rate 87 Respiratory Rate 20 Blood Pressure 126/71 Pulse Oximetry 99 Oxygen Delivery Intake/Output Intake/Output: Intake & Output 03/04/25 03/05/25 03/06/25 03/07/25 23:59 23:59 23:59 23:59 Intake Total 340 Output Total 600 Balance -260 Meds/Results Medications: Active Medications Generic Name Dose Route Start Last Admin Trade Name Freq PRN Reason Stop Dose Admin Acetaminophen 1,000 mg 03/06/25 17:01 Acetaminophen 500 Mg Tablet PO Q6H PRN Pain Rated 1-3 Albuterol 1 puff 03/06/25 21:53 Albuterol Sulfate (*Sp) Aerosol 1 Puff INHALATION Q4-6H PRN Wheezing Budesonide 6 mg 03/07/25 09:00 Budesonide 3 Mg Cap.Sr.24h PO DAILY [facility] Calcium Carbonate 500 mg 03/07/25 12:00 Calcium Carbonate (Oscal) 500 Mg Tablet PO DAILY@1200 [facility] Cyclobenzaprine HCl 10 mg 03/06/25 21:38 03/06/25 21:50 Cyclobenzaprine Hcl 10 Mg Tablet PO 10 mg TID PRN Administration Muscle Spasms Docusate Sodium 100 mg 03/06/25 17:06 Docusate Sodium 100 Mg Capsule PO Q12H PRN Constipation Enoxaparin Sodium 40 mg 03/07/25 09:00 Enoxaparin 40 Mg/0.4 Ml Syringe SUB-Q DAILY [facility] Fentanyl Citrate 50 mcg 03/06/25 16:32 03/07/25 03:44 Fentanyl Citrate Inj (*Crx) 100 Mcg/2 Ml Vial IV PUSH 50 mcg Q2H PRN Administration Pain Rated 7-10 Gabapentin 300 mg 03/06/25 21:40 03/06/25 21:50 Gabapentin 300 Mg Capsule PO 300 mg Q12HR LANG Administration Hydrochlorothiazide 12.5 mg 03/07/25 09:00 Hydrochlorothiazide 12.5 [address]aps[address] PO [address] [facility] Hydroxyzine HCl 25 mg 03/06/25 21:38 03/06/25 21:50 Hydroxyzine Hcl 25 Mg Tablet PO 25 mg QID PRN Administration Anxiety Sodium Chloride 1,000 mls @ 100 mls/hr 03/06/25 23:20 03/06/25 23:41 Normal Saline Iv IV CONT 03/07/25 09:19 100 mls/hr .Q10H LANG Administration Levothyroxine Sodium 50 mcg 03/07/25 06:30 Levothyroxine Sodium 50 Mcg Tablet PO DAILY@0630 [facility] Lisinopril 10 mg 03/07/25 09:00 Lisinopril 10 [address] Tablet PO [address]ILY [facility] Loratadine 10 mg 03/06/25 21:44 Loratadine 10 Mg Tablet PO DAILY PRN Congestion Meclizine HCl 25 mg 03/06/25 21:38 Meclizine Hcl 25 Mg Tablet PO TID PRN Dizziness Or Vertigo Meloxicam 15 mg 03/07/25 09:00 Meloxicam 7.5 [address] [facility] Miscellaneous Information 1 each 03/06/25 00:01 03/06/25 18:01 Docusate Has Overlapping Prn Indication With Miralax XX 04/05/25 00:[address] [facility] Miscellaneous Information 0 each 03/06/25 00:01 Advair (Sub For Symbicort) Clarify Pt Only Using Once Daily XX 04/05/25 00:[address] [facility] Multivitamins Therapeutic 1 tablet 03/07/25 12:00 Multivitamins Therapeutic Tab (*Bkc) PO DAILY@1200 [facility] Ondansetron HCl 4 mg 03/06/25 17:01 Ondansetron Hcl Odt 4 Mg Tablet PO Q6H PRN Nausea And Vomiting Pantoprazole Sodium 40 mg 03/07/25 09:00 Pantoprazole [address] [facility] Polyethylene Glycol 17 gm 03/06/25 17:06 Polyethylene Glycol 3350 17 Gm Powd.Pack PO QAM PRN Constipation Fluticasone/Salmeterol 2 puff 03/07/25 08:00 Fluticasone/Salmeterol 45-21 Mcg Inhaler [address] [facility] Simvastatin 40 mg 03/07/25 09:00 Simvastatin 20 Mg Tablet PO DAILY [facility] Vitamin D 25 mcg 03/07/25 09:00 Cholecalciferol (Vitamin D3) 25 Mcg (1,000 Units) Tablet PO DAILY [facility] Vitamin D 250 mcg 03/07/25 09:00 Cholecalciferol (Vitamin D3) 125 Mcg (5,000 Units) Tablet PO DAILY [facility] Radiology Results: ITS Impressions Venous Doppler Study 03/06/25 14:49 IMPRESSION: 1. No deep venous thrombosis in either lower limb. Chest X-Ray 03/06/25 16:17 IMPRESSION: 1: NO ACUTE CARDIOPULMONARY DISEASE. Labs Labs: Laboratory Results - last 24 hr 03/06/25 03/07/25 03/07/25 14:53 00:00 04:27 WBC 5.0 4.2 L RBC 3.24 L 2.99 L Hgb 9.5 L 8.6 L Hct 30.2 L 28.2 L MCV 93.2 94.3 MCH 29.3 28.8 MCHC 31.5 L 30.5 L RDW 14.6 H 14.6 H Plt Count 222 199 MPV 10.3 10.9 H Immature Gran % (Auto) 0.2 0.2 Neut % (Auto) 46.3 60.8 Lymph % (Auto) 43.6 29.0 [place] % (Auto) 7.5 7.1 Eos % (Auto) 1.6 1.9 Baso % (Auto) 0.8 1.0 Lymph # (Auto) 2.16 1.22 [place] # (Auto) 0.4 0.3 Eos # (Auto) 0.1 0.1 Baso # (Auto) 0.0 0.0 Abs Immat Gran (auto) 0.01 0.01 Absolute Neuts (auto) 2.3 2.6 Absolute Nucleated RBC 0.000 0.000 Nucleated RBC % 0.0 0.0 PT 12.4 INR 0.9 APTT 23.7 Sodium 136 L 136 L Potassium 4.8 4.2 Chloride 103 104 Carbon Dioxide 26 26 Anion Gap 7 6 BUN 25 H 18 H Creatinine 0.87 0.70 Estim Creat Clear Calc Not Reportable 61 Estimated GFR > 60 > 60 Glucose 91 87 Calcium 9.2 8.9 Total Bilirubin 0.3 AST 41 H ALT 34 Alkaline Phosphatase 112 NT-Pro-B Natriuret Pep 488 H Total Protein 6.9 Albumin 3.9 Urine Color Yellow Urine Appearance Cloudy H Urine pH 6.0 Ur Specific [place] 1.021 Urine Protein Negative Urine Glucose (UA) Negative Urine Ketones Negative Ur Blood (Man) Negative Urine Nitrate Positive H Urine Bilirubin Negative Urine Urobilinogen 0.2 Leukocyte Esterase Rfl 1+ H Urine RBC 0-2 Urine WBC 6-10 H Ur Squamous Epith Cells None seen Urine Bacteria 4+ Urine Casts 0-2 Quality VTE Prophylaxis VTE prophylaxis: pharmacologic ordered
[2025-03-07] MEDS: MELOXICAM 7.5 MG TABLET 15 MG PO (08:16)
[2025-03-07] MEDS: CHOLECALCIFEROL (VITAMIN D3) 125 MCG (5,000 UNITS) TABLET 250 MCG PO (08:18)
[2025-03-07] MEDS: SIMVASTATIN 20 MG TABLET 40 MG PO (08:18)
[2025-03-07] MEDS: CHOLECALCIFEROL (VITAMIN D3) 25 MCG (1,000 UNITS) TABLET PO (08:18)
[2025-03-07] MEDS: CYCLOBENZAPRINE HCL 10 MG TABLET PO (08:18)
[2025-03-07] MEDS: PANTOPRAZOLE 40 MG TABLET PO (08:18)
[2025-03-07] MEDS: GABAPENTIN 300 MG CAPSULE PO ×2 (08:18→20:45)
[2025-03-07] MEDS: ENOXAPARIN 40 MG/0.4 ML SYRINGE SUB-Q (08:19)
[2025-03-07] MEDS: BUDESONIDE 3 MG CAP.SR.24H 6 MG PO (08:19)
[2025-03-07 08:32] LABS: Iron 37 ug/dL (37-170)
[2025-03-07 08:41] LABS: Percent Iron Saturation 13 % (20-50)
[2025-03-07 09:13] LABS: Ferritin 11.10 ng/mL (11.1-264)
[2025-03-07] MEDS: oxyCODONE/ACETAMINOPHEN (*CRX) 10-325 MG TABLET 1 TAB PO ×2 (10:55→18:30)
[2025-03-07] MEDS: TIZANIDINE HCL 2 MG TABLET PO (10:57)
[2025-03-07] MEDS: MULTIVITAMINS THERAPEUTIC TAB (*BKC) 1 TABLET PO (11:20)
[2025-03-07] MEDS: CALCIUM CARBONATE (OSCAL) 500 MG TABLET PO (11:20)
[2025-03-07] MEDS: cefTRIAXone 1 GM in SODIUM CHLORIDE 0.9% IV 50 ML 100 ML IVPB (13:43)
[2025-03-07] MEDS: MORPHINE SULFATE (*CRX) 4 MG/ML INJ IV PUSH (13:43)
[2025-03-07 14:00] VITALS: BP 101/58; PULSE 90; RESP 18; TEMP 36.5; O2SAT 96
--- NOTE | 2025-03-07 14:15 | PC.NURSE ---
To MRI on [facility].
--- NOTE | 2025-03-07 14:50 | PC.NURSE ---
Return to room from MRI through stretcher.
[2025-03-07 17:31] LABS: CRP 0.7 mg/dL (<1.0)
[2025-03-07 19:53] VITALS: BP 133/76; PULSE 82; RESP 17; TEMP 36.6; O2SAT 100
[2025-03-08] VITALS (15 sets, daily range): BP systolic 111–168; BP diastolic 62–99; PULSE 77–97; RESP 12–20; TEMP 36.3–36.7; O2SAT 92–100
[2025-03-08] MEDS: oxyCODONE/ACETAMINOPHEN (*CRX) 10-325 MG TABLET 1 TAB PO ×5 (01:54→22:52)
[2025-03-08] MEDS: MORPHINE SULFATE (*CRX) 4 MG/ML INJ IV PUSH (04:20)
[2025-03-08] MEDS: LEVOTHYROXINE SODIUM 50 MCG TABLET PO (05:27)
[2025-03-08 06:05] LABS: Hematocrit 28.0 % (37.0-47.0); Hemoglobin 8.7 g/dL (12.0-15.0); Immature Granulocyte Percent A 0.2 % (0-0.5); Lymphocytes Absolute Auto 1.93 K/mm3 (0.9-3.2); Mean Corpuscular HGB Conc 31.1 g/dl (32-36); Mean Corpuscular Hemoglobin 29.1 pg (26-34); Mean Corpuscular Volume 93.6 fl (80-100); Nucleated Red Blood Cells Absolute Auto 0.000 K/mm3 (0.0-0.012); Nucleated Red Blood Cells Perc 0.0 % (0.0-0.2); Platelet Count Result 213 k/mm3 (150-375); Red Blood Count 2.99 M/mm3 (4.2-5.4); White Blood Count 4.3 K/mm3 (4.5-10.0)
[2025-03-08 06:31] LABS: Anion Gap 3 mmol/L (4-12); Blood Urea Nitrogen 18 mg/dL (7-17); Calcium 8.8 mg/dL (8.4-10.2); Carbon Dioxide 28 mmol/L (22-30); Chloride 103 mmol/L (98-107); Estimated CRCL calculation 58 ml/min; Estimated Glomerular Filt Rate > 60; Glucose 79 mg/dL (65-110); Potassium 4.6 mmol/L (3.4-5.0); Sodium 134 mmol/L (137-145)
[2025-03-08] MEDS: CHOLECALCIFEROL (VITAMIN D3) 125 MCG (5,000 UNITS) TABLET 250 MCG PO (09:39)
[2025-03-08] MEDS: CHOLECALCIFEROL (VITAMIN D3) 25 MCG (1,000 UNITS) TABLET PO (09:39)
[2025-03-08] MEDS: SIMVASTATIN 20 MG TABLET 40 MG PO (09:39)
[2025-03-08] MEDS: GABAPENTIN 300 MG CAPSULE PO ×2 (09:39→21:40)
[2025-03-08] MEDS: TIZANIDINE HCL 2 MG TABLET PO (09:40)
[2025-03-08] MEDS: PANTOPRAZOLE 40 MG TABLET PO (09:40)
--- NOTE | 2025-03-08 10:53 | WPDNEUROSGCN ---
Assessment and Plan Assessment and plan (1) Status post lumbar spinal arthrodesis: Code(s): Z98.1 - Arthrodesis status Status: Acute Plan Yaima is a 75-year-old female with back and leg pain that came on at some point after surgery and may be related to fluid collection in the laminectomy that causes enough compression on the thecal sac to produce the symptoms she is having. Unfortunately, only limited imaging is possible because of her inability to lay flat without severe pain. Given these limitations I have recommended to her that we open up her wound and drain any potential hematoma that may be present that could cause the problems that she is complaining of. I think it is a strange time course and there certainly is a chance that this operation will not help her and I discussed that with her. It has also been previously noted that 1 of the caps at S1 does not appear to be seated in the screw head and we could address that issue, which is not likely symptomatic, at the same time. I described to her the above-mentioned operation, its risks, potential benefits, the operative and postoperative course in detail and answered all her questions personally. This will be a wound exploration for hematoma and revision of posterior instrumentation. Consult date: 03/08/25 HPI: Yaima Gutierrez is a 75 year old female Who underwent an L5-S1 posterior lumbar interbody fusion and L3-4 hemilaminectomy on 01/10/2025. While she did initially well. She developed few weeks later recurrent discomfort in her back radiating into her bilateral lower extremities and she developed significant swelling in the lower extremities. This persists in his become progressive enough that she finally presented to the emergency room in order to have an ultrasound done of her legs and to investigate the cause of her discomfort. She has not developed any specific muscle group weakness or dermatomal numbness. She has not having new bowel or bladder difficulty. She had an MRI evaluation at admission which is available for my review. she has remained ambulatory but her discomfort is worse when she stands and walk as well as if she is lying down flat. Review of Systems Review of Systems: All systems reviewed & are unremarkable except as noted in HPI and below Denies chills, Denies fever, Denies weight gain and Denies weight loss Eyes Denies change in vision and Denies diplopia ENT Denies disequilibrium Card Denies chest pain and Denies dyspnea Resp Denies cough and Denies dyspnea GI Denies abdominal pain, Denies change in bowel habits, Denies fecal incontinence and Denies vomiting Denies hematuria, Denies oliguria, Denies difficulty urinating, Denies dysuria, Denies urinary frequency, Denies urinary hesitancy, Denies urinary incontinence and Denies urinary urgencyMusc Reports as per HPI Skin/ Breast Reports system reviewed and no additional complaints, except as documented Neuro Reports as per HPI Psych Reports no additional complaints, Denies depression and Denies hopelessness Endo Reports no additional complaints and Denies polyuria Mohsen/ Lymph Reports no additional complaints Aller/ Immun Reports no additional complaints PMFSH Past Medical History Medical History MVP (mitral valve prolapse) said she was having spells and then was put on blood thinners because of her MVP and now she doesn't have these spells Skin cancer Anxiety Hypothyroidism Hyperlipidemia Hypertension Asthma Surgical History Surgical History Previous back surgery History of hysterectomy History of tonsillectomy History of bladder surgery History of lumbar discectomy History of lumbar laminectomy History of appendectomy Family History Family History Mother Diabetes mellitus Hypertension Heart problem Thyroid disorder Social History Social History Years smoked: 35 Smoking status: Never smoker Second hand tobacco smoke exposure: Yes Alcohol intake: never Alcohol use details: Rarely Substance use: never Substance use type: does not use Do You Feel Safe in your Home?: Yes Lack of Transportation: No Lack of Food: Never True Current Housing: I Have Housing Concerned About Future Housing: No Difficulty Paying Gas/Electric Bills: No Difficulty Paying for Meds: No Currently Unemployed: No Education: Decline to Answer Difficulty w/ Childcare or Family Care: No Living arrangements: with family Additional living arrangements comments: LIVES WITH DISABLED SPOUSE Spiritual care concerns: No Meds Home Medications and Allergies Home Medications ?Medication ?Instructions ?Recorded ?Confirmed ?Type albuterol sulfate 90 mcg/actuation 1 inh inhalation Q4-6H PRN Wheezing 04/13/23 03/06/25 History breath activated powder inhaler calcium carbonate (Calcium 600) 600 mg PO DAILY 04/13/23 03/06/25 History cetirizine 10 mg tablet 10 mg PO DAILY PRN Congestion 04/13/23 03/06/25 History gabapentin 300 mg capsule 300 mg PO Q12H 04/13/23 03/06/25 History hydroxyzine HCl 25 mg tablet 25 mg PO QID PRN Anxiety 04/13/23 03/06/25 History levothyroxine 50 mcg capsule 50 mcg PO DAILY 04/13/23 03/06/25 History meclizine 25 mg tablet 25 mg PO TID PRN Dizziness Or 04/13/23 03/06/25 History Vertigo pantoprazole 40 mg tablet,delayed 40 mg PO QAM 04/13/23 03/06/25 History release simvastatin 40 mg tablet 40 mg PO DAILY 04/13/23 03/06/25 History cholecalciferol (vitamin D3) 250 250 mcg PO DAILY 07/27/23 03/06/25 History mcg (10,000 unit) capsule multivitamin 1 tablet PO DAILY 07/27/23 03/06/25 History clopidogrel 75 mg tablet 75 mg PO DAILY 11/23/23 03/06/25 History Held on 01/14/25. Instructions: Resume on 01/21/25. budesonide 6 mg capsule,extended 6 mg PO DAILY 01/07/24 03/06/25 History release cholecalciferol (vitamin D3) 25 25 mcg PO DAILY 07/11/24 03/06/25 History mcg (1,000 unit) capsule hydrochlorothiazide 12.5 mg capsule 12.5 mg PO DAILY 07/11/24 03/06/25 History lisinopril 10 mg tablet 10 mg PO DAILY 07/11/24 03/06/25 History cyclobenzaprine 10 mg tablet 10 mg PO TID PRN Muscle Spasms 10 07/20/24 03/06/25 Rx days #30 tabs budesonide-formoterol HFA 80 2 inh inhalation DAILY 12/29/24 03/06/25 History mcg-4.5 mcg/actuation aerosol inhaler (Symbicort) meloxicam 15 mg tablet 15 mg PO DAILY 12/29/24 03/06/25 History ondansetron 4 mg disintegrating 4 mg PO Q6H PRN nausea and 02/21/25 03/06/25 Rx tablet vomiting #30 tabs cyclobenzaprine 10 mg tablet 10 mg PO TID PRN muscle spasm #20 03/01/25 03/06/25 Rx tabs oxycodone-acetaminophen 5 mg-325 1 - 2 tablet PO Q6H PRN pain #40 03/02/25 03/06/25 Rx mg tablet tabs Allergies Allergy/AdvReac Type Severity Reaction Status Date / Time Fish Containing Products Allergy Severe Vomiting Verified 03/06/25 18:46 latex Allergy Severe Itching Verified 03/06/25 18:46 Penicillins Allergy Severe Hives Verified 03/06/25 18:46 codeine Allergy Mild Hives AND Verified 03/06/25 18:46 VOMITING strawberry Allergy Mild Hives Verified 03/06/25 18:46 hydrocodone (From Vicodin) AdvReac Severe Vomiting Verified 03/06/25 18:46 meperidine (From Demerol) AdvReac Severe Vomiting Verified 03/06/25 18:46 tetanus and diphtheria AdvReac Severe Swelling Verified 03/06/25 18:46 toxoids kiwi AdvReac Mild Hives Verified 03/06/25 18:46 Sulfa (Sulfonamide AdvReac Mild Vomiting Verified 03/06/25 18:46 Antibiotics) tramadol AdvReac Mild Nausea Verified 03/06/25 18:46 Vital Signs Vital Signs - 24 hr 03/07/25 14:00 03/07/25 19:53 03/08/25 04:34 Temperature 97.7 F 97.8 F 97.6 F Pulse Rate 90 82 83 Respiratory Rate 18 17 17 Blood Pressure 101/58 L 133/76 128/77 Pulse Oximetry 96 100 99 Oxygen Delivery 03/08/25 08:00 Temperature Pulse Rate Respiratory Rate Blood Pressure Pulse Oximetry Oxygen Delivery Room Air Exam Narrative: General: cooperative, no acute distress, well developed, alert and awake Orientation/Consciousness: oriented to person, oriented to place and oriented to time Constitutional Limitations: no limitations Other: The patient is a normally developed, normal appearing female sitting on the examination table in no acute distress. She is awake, alert, and oriented x3 with good fund of knowledge, recall of events, and fluent speech. HENMT Head: normocephalic and atraumatic Ears: external ears normal Face/Nose/Sinus: Normal external nose present Eyes Eyelids: eyelids normal Pupils: Yes Pupils normal by confrontation EOM: EOMs intact bilaterally Neck General: Yes no meningeal signs, Yes supple and Yes no JVD Resp Effort/Inspection: normal respiratory effort and able to speak in complete sentences Cardio Rate: Yes regular rate GI Inspection: No abdominal distension Musc Other: Examination of the back reveals no tenderness. Range of motion of the back is full without pain in forward flexion, extension, and lateral rotation to both sides. Straight leg raise is negative bilaterally. Jass?s test is negative bilaterally. Skin General: normal color Neuro General: Yes oriented to person, Yes oriented to place, Yes oriented to time, Yes normal cognition and Yes no meningeal signs Cranial Nerves: Yes CN's II-XII intact bilaterally Other: Motor: Strength is normal, 5/5, throughout all muscle groups of the bilateral upper and lower extremities to direct confrontation. Sensory: Sensation is intact to light touch throughout the upper and lower extremities bilaterally. Reflexes: Deep tendon reflexes are difficult to elicit at the knees or ankles bilaterally. There is significant swelling in the lower extremities. Gait: Gait, station, and transfers were not tested Psych Appearance: grossly normal Mental status: Yes mental status grossly normal Mood: congruent mood Affect: Yes normal affect Speech/Movement: Normal speech and movement present Attitude: Yes cooperative Thought Content: Normal thought content present Const: Other: General: cooperative, no acute distress, well developed, alert and awake Orientation/Consciousness: oriented to person, oriented to place and oriented to time Constitutional Limitations: no limitations Other: The patient is a normally developed, normal appearing male sitting on the examination table in no acute distress. He is awake, alert, and oriented x3 with good fund of knowledge, recall of events, and fluent speech. HENMO Head: normocephalic and atraumatic Ears: external ears normal Face/Nose/Sinus: Normal external nose present Eyes Eyelids: eyelids normal Pupils: Yes Pupils normal by confrontation EOM: EOMs intact bilaterally Neck General: Yes no meningeal signs, Yes supple and Yes no JVD Resp Effort/Inspection: normal respiratory effort and able to speak in complete sentences Cardio Rate: Yes regular rate GI Inspection: No abdominal distension Musc Other: Examination of the back reveals no tenderness. Range of motion of the back is full without pain in forward flexion, extension, and lateral rotation to both sides. Straight leg raise is negative bilaterally. Jass?s test is negative bilaterally. Skin General: normal color Neuro General: Yes oriented to person, Yes oriented to place, Yes oriented to time, Yes normal cognition and Yes no meningeal signs Cranial Nerves: Yes CN's II-XII intact bilaterally Other: Motor: Strength is normal, 5/5, throughout all muscle groups of the bilateral upper and lower extremities to direct confrontation. Sensory: Sensation is intact to light touch throughout the upper and lower extremities bilaterally. Reflexes: Deep tendon reflexes are difficult to elicit at the knees or ankles bilaterally. There is no clonus. Gait: Gait, station, and transfers were not tested.. Psych Appearance: grossly normal Mental status: Yes mental status grossly normal Mood: congruent mood Affect: Yes normal affect Speech/Movement: Normal speech and movement present Attitude: Yes cooperative Thought Content: Normal thought content present Review of studies: MRI of the lumbar spine was personally reviewed by me. This is a limited study with only sagittal views. There is a fluid collection in the area of the operation posteriorly that may compress the thecal sac. Again, there are no axial views to confirm how much narrowing exists. Results Labs 03/08/25 05:52 03/08/25 05:52 Labs: Short CBC 03/08/25 Range/Units 05:52 WBC 4.3 L (4.5-10.0) K/mm3 Hgb 8.7 L (12.0-15.0) g/dL Hct 28.0 L (37.0-47.0) % Plt Count 213 (150-375) k/mm3 BMP 03/08/25 05:52 Sodium 134 L Potassium 4.6 Chloride 103 Carbon Dioxide 28 BUN 18 H Creatinine 0.74 Glucose 79 Calcium 8.8
--- NOTE | 2025-03-08 13:34 | WPDANESEPPF ---
Anes - Initial Pre Proc Eval Procedure: Operation Date: 03/08/25 14:30 Proposed Procedures p Wound Exploration For Hematoma, - Hao Silvestre MD s Revision Posterior Instrumentation - Hao Silvestre MD Date/Time: 03/08/25 13:34 Surgeon: Santos Sanchez MD Pre Op Diagnosis: back pain,leg edema Patient Data Age: 75 Gender: F Height: 1.63 m Weight: 84.3 kg Last Vital Signs Temp 36.4 C 03/08/25 04:34 Pulse 83 03/08/25 04:34 Resp 17 03/08/25 04:34 BP 128/77 03/08/25 04:34 Pulse Ox 99 03/08/25 04:34 O2 Del Method Room Air 03/08/25 08:00 Allergies Allergy/AdvReac Type Severity Reaction Status Date / Time Fish Containing Products Allergy Severe Vomiting Verified 03/06/25 18:46 latex Allergy Severe Itching Verified 03/06/25 18:46 Penicillins Allergy Severe Hives Verified 03/06/25 18:46 codeine Allergy Mild Hives AND Verified 03/06/25 18:46 VOMITING strawberry Allergy Mild Hives Verified 03/06/25 18:46 hydrocodone (From Vicodin) AdvReac Severe Vomiting Verified 03/06/25 18:46 meperidine (From Demerol) AdvReac Severe Vomiting Verified 03/06/25 18:46 tetanus and diphtheria AdvReac Severe Swelling Verified 03/06/25 18:46 toxoids kiwi AdvReac Mild Hives Verified 03/06/25 18:46 Sulfa (Sulfonamide AdvReac Mild Vomiting Verified 03/06/25 18:46 Antibiotics) tramadol AdvReac Mild Nausea Verified 03/06/25 18:46 Home Medications ?Medication ?Instructions ?Recorded ?Confirmed ?Type albuterol sulfate 90 mcg/actuation 1 inh inhalation Q4-6H PRN Wheezing 04/13/23 03/06/25 History breath activated powder inhaler calcium carbonate (Calcium 600) 600 mg PO DAILY 04/13/23 03/06/25 History cetirizine 10 mg tablet 10 mg PO DAILY PRN Congestion 04/13/23 03/06/25 History gabapentin 300 mg capsule 300 mg PO Q12H 04/13/23 03/06/25 History hydroxyzine HCl 25 mg tablet 25 mg PO QID PRN Anxiety 04/13/23 03/06/25 History levothyroxine 50 mcg capsule 50 mcg PO DAILY 04/13/23 03/06/25 History meclizine 25 mg tablet 25 mg PO TID PRN Dizziness Or 04/13/23 03/06/25 History Vertigo pantoprazole 40 mg tablet,delayed 40 mg PO QAM 04/13/23 03/06/25 History release simvastatin 40 mg tablet 40 mg PO DAILY 04/13/23 03/06/25 History cholecalciferol (vitamin D3) 250 250 mcg PO DAILY 07/27/23 03/06/25 History mcg (10,000 unit) capsule multivitamin 1 tablet PO DAILY 07/27/23 03/06/25 History clopidogrel 75 mg tablet 75 mg PO DAILY 11/23/23 03/06/25 History Held on 01/14/25. Instructions: Resume on 01/21/25. budesonide 6 mg capsule,extended 6 mg PO DAILY 01/07/24 03/06/25 History release cholecalciferol (vitamin D3) 25 25 mcg PO DAILY 07/11/24 03/06/25 History mcg (1,000 unit) capsule hydrochlorothiazide 12.5 mg capsule 12.5 mg PO DAILY 07/11/24 03/06/25 History lisinopril 10 mg tablet 10 mg PO DAILY 07/11/24 03/06/25 History cyclobenzaprine 10 mg tablet 10 mg PO TID PRN Muscle Spasms 10 07/20/24 03/06/25 Rx days #30 tabs budesonide-formoterol HFA 80 2 inh inhalation DAILY 12/29/24 03/06/25 History mcg-4.5 mcg/actuation aerosol inhaler (Symbicort) meloxicam 15 mg tablet 15 mg PO DAILY 12/29/24 03/06/25 History ondansetron 4 mg disintegrating 4 mg PO Q6H PRN nausea and 02/21/25 03/06/25 Rx tablet vomiting #30 tabs cyclobenzaprine 10 mg tablet 10 mg PO TID PRN muscle spasm #20 03/01/25 03/06/25 Rx tabs oxycodone-acetaminophen 5 mg-325 1 - 2 tablet PO Q6H PRN pain #40 03/02/25 03/06/25 Rx mg tablet tabs Laboratory Tests 03/07/25 03/08/25 17:00 05:52 WBC 4.3 L K/mm3 (4.5-10.0) RBC 2.99 L M/mm3 (4.2-5.4) Hgb 8.7 L g/dL (12.0-15.0) Hct 28.0 L % (37.0-47.0) MCV 93.6 fl (80-100) MCH 29.1 pg (26-34) MCHC 31.1 L g/dl (32-36) RDW 14.6 H % (11.5-14.5) Plt Count 213 k/mm3 (150-375) MPV 10.8 H fl (7.4-10.4) Immature Gran % (Auto) 0.2 % (0-0.5) Neut % (Auto) 42.2 L % (45.5-73.1) Lymph % (Auto) 45.4 H % (18.3-44.2) Hernando % (Auto) 8.0 % (2.6-8.5) Eos % (Auto) 3.3 % (0-4.4) Baso % (Auto) 0.9 % (0.2-1.2) Lymph # (Auto) 1.93 K/mm3 (0.9-3.2) Hernando # (Auto) 0.3 K/mm3 (0.1-0.6) Eos # (Auto) 0.1 K/mm3 (0-0.3) Baso # (Auto) 0.0 K/mm3 (0.0-0.1) Abs Immat Gran (auto) 0.01 K/mm3 (0.00-0.031) Absolute Neuts (auto) 1.8 K/mm3 (1.3-6.7) Absolute Nucleated RBC 0.000 K/mm3 (0.0-0.012) Nucleated RBC % 0.0 % (0.0-0.2) ESR 34 H mm/hr (0-20) Sodium 134 L mmol/L (137-145) Potassium 4.6 mmol/L (3.4-5.0) Chloride 103 mmol/L (98-107) Carbon Dioxide 28 mmol/L (22-30) Anion Gap 3 L mmol/L (4-12) BUN 18 H mg/dL (7-17) Creatinine 0.74 mg/dL (0.7-1.0) Estim Creat Clear Calc 58 ml/min Estimated GFR > 60 (59 - ) Glucose 79 mg/dL (65-110) Calcium 8.8 mg/dL (8.4-10.2) C-Reactive Protein 0.7 mg/dL (<1.0) Patient hx anesthesia problems: none Family hx anesthesia problems: none Results Review: All pre-operative results and documents have been reviewed as part of the pre-operative evaluation. [facility] Past Medical History Medical History MVP (mitral valve prolapse) said she was having spells and then was put on blood thinners because of her MVP and now she doesn't have these spells Skin cancer Anxiety Hypothyroidism Hyperlipidemia Hypertension Asthma Surgical History Surgical History Previous back surgery History of hysterectomy History of tonsillectomy History of bladder surgery History of lumbar discectomy History of lumbar laminectomy History of appendectomy Family History Family History Mother Diabetes mellitus Hypertension Heart problem Thyroid disorder Social History Social History Years smoked: 35 Smoking status: Never smoker Second hand tobacco smoke exposure: Yes Alcohol intake: never Alcohol use details: Rarely Substance use: never Substance use type: does not use Do You Feel Safe in your Home?: Yes Lack of Transportation: No Lack of Food: Never True Current Housing: I Have Housing Concerned About Future Housing: No Difficulty Paying Gas/Electric Bills: No Difficulty Paying for Meds: No Currently Unemployed: No Education: Decline to Answer Difficulty w/ Childcare or Family Care: No Living arrangements: with family Additional living arrangements comments: LIVES WITH DISABLED SPOUSE Spiritual care concerns: No Anes - Eval Final PreProcedure Day of Procedure 03/08/25 13:34 Patient weight: obese Heart: regular rate and rhythm Lungs: clear to auscultation Airway: Mallampati scale class II Neurological: alert and oriented Last oral intake: >/= 8 hours ASA classification: III Emergent: no Anesthetic plan: proceed Anesthesia type and monitoring: general ETT and standard monitoring Results Review: All pre-operative results and documents have been reviewed as part of the pre-operative evaluation. Informed Consent: The patient's anesthetic plan and its attendant risks and benefits were discussed with the patient/family/POA. Questions were solicited and answers provided to the satisfaction of the patient/family/POA.
--- NOTE | 2025-03-08 13:43 | WPDHPUPDATE1 ---
History and Physical Update Update Date/Time: 03/08/25 13:43 History and Physical has been reviewed, including an updated exam of the patient. There are NO changes in the patient's condition. Risks, benefits, and alternatives have been discussed and questions answered. Patient agrees to proceed with procedure.
--- NOTE | 2025-03-08 13:50 | PC.NURSE ---
To OR per hospital bed.
[2025-03-08] MEDS: cefTRIAXone 1 GM in SODIUM CHLORIDE 0.9% IV 50 ML 100 ML IVPB (14:00)
[2025-03-08] MEDS: LACTATED RINGERS 1,000 ML 30 ML IV CONT ×2 (14:02→16:38)
--- NOTE | 2025-03-08 14:37 | P.PNIM_ITS ---
Progress Note: A&P Assessment and Plan (1) Back pain: Qualifiers: Back pain laterality: bilateral Back pain location: low back pain Chronicity: acute Sciatica laterality: sciatica of right side Sciatica presence: with sciatica Qualified Code(s): M54.41 - Lumbago with sciatica, right side Code(s): M54.9 - Dorsalgia, unspecified Status: Acute Assessment and Plan: s/p L5-S1 posterior lumbar interbody fusion and L3-4 hemilaminectomy 01/10/[address] Silvestre. Initially complicated by post-operative pain. Plain films demonstrated good position of the hardware and interbody devices with the exception of the left srinath which seems to not be seated in the left S1 screw head per patient's neurosurgeon. CT was completed on 03/01 (see impression below) as follow-up on this imaging. Patient has also developed new difficulty urinating for the past week, historically has had urinary incontinence for years. - CT lumbar spine, 03/01: 1. Severe lower lumbar spondylosis status post interval L5 laminectomy and combined instrumented L5-S1 anterior and posterior spinal fusion. Of note there appears to be a subacute to early chronic still discernible nondisplaced coron ally oriented fracture extends across the anterior base of the right L5 pedicle. 2. Although significantly more limited on CT than with MRI particularly in the presence of streak artifact related to the metallic instrumentation, there appears to be increased soft tissue density at the laminectomy bed with suggestion of moderate residual central canal stenosis at this level. Would consider further evaluation with MRI as clinically indicated. 3. Interval instrumented left sacroiliac arthrodesis. - bladder scan with PVR 0 in ED - neurosurgery consulted - MR lumbar spine - analgesics - continue home gabapentin. Start PRN Percocet, Morphine for breakthrough. Trial tizanidine. Patient reports she is no longer on steroids. - PT/OT once NSG clears neurosurgery notes reviewed: Wound Exploration For Hematoma with Dillon Mack today (2) Peripheral edema: Code(s): R60.0 - Localized edema Status: Acute Assessment and Plan: Reporting new, significant BLE edema. BNP WNL for age and CXR did not demonstrate any pulmonary edema. S/p lumbar surgery in December of 2024. Possible complications noted on imaging, see above. - neli wraps as tolerated, october d/c at night to sleep - BNP and CXR not indicative of CHF - BLE VD negative for DVT - complication to lumbar surgery/immobility? - mobilize as able. Elevate lower extremities. (3) Urinary tract infection: Code(s): N39.0 - Urinary tract infection, site not specified Status: Acute Assessment and Plan: - UA with positive nitrates, 1+ LE, 6-10 WBC - patient reports urinary hesitancy - previous culture with pansensitive Klebsiella - start IV Rocephin, await urine culture (4) Hypertension: Qualifiers: Hypertension type: primary hypertension Qualified Code(s): I10 - Essential (primary) hypertension Code(s): I10 - Essential (primary) hypertension Status: Chronic Assessment and Plan: - chronic, currently 126/71 - continue home medications: HCTZ, lisinopril - monitor (5) Anemia: Code(s): D64.9 - Anemia, unspecified Status: Acute Assessment and Plan: - Hgb 11.7 7/3. 9.5 on admission, trended down to 8.6 - may have component of hemodilution as patient was on fluids overnight - denied signs of bleeding - check iron studies, occult stool - monitor CBC. Transfuse Hgb <7. Plan DVT Prophylaxis: lovenox SQ Code Status: full code Time Spent With Patient Time with patient: 25 - 35 minutes Subjective Date/time seen: 03/08/25 0800 Interval history: 75 y/o F with PMH of mitral valve prolapse, hypothyroidism, hyperlipidemia, asthma, and hypertension presents here with back pain and lower extremity edema. The patient presents here for further evaluation of back pain and lower extremity edema on 03/06. She had a L5-S1 posterior lumbar interbody fusion and L3-4 hemilaminectomy done on 01/10/2025 by Konrad VELA. She had significant back pain postop, otherwise no particular issues while she was hospitalized and she was discharged home on 01/14. She reports after surgery she developed significant discomfort in her lower back which radiated into her right buttock, left sacral area, and it down her right leg to her foot (now down both legs). Pain has been ongoing since surgery but has been worsening in the last few weeks. She followed up with her neurosurgeon on 02/21 for this issue. She had an x-ray of her lumbar spine which showed hardware/interbody devices were in good position except a left broad which seem to not be seated in the left S1 screw head. Plan was for further investigation via a CT scan which was completed on 03/01 which showed severe lower lumbar spondylosis s/p laminectomy and combine instrumented L5/S1 spinal fusion, subacute to early chronic still discernable nondisplaced coronally oriented fracture extending across anterior base of the right L5 pedicle, increased soft tissue density at the laminectomy bed with suggestion of moderate residual central canal stenosis at this level, interval instrumented left sacroiliac arthrodesis. Patient is additionally reporting it new difficulty urinating for the past week. Previously had had urinary incontinence for years. As well as lower extremity edema for the past 3-4 days. She denies accompanying bowel incontinence or saddle anesthesia. Patient previously walked with a cane prior to surgery. Now has to ambulate with a walker and has experienced a few falls due to the pain. Assuming care. Pt is seen and examined . Neurosurgery consulted and following. Wound Exploration For Hematoma Johnathon Silvestre today. Review of Systems Review of Systems: All systems reviewed & are unremarkable except as noted in HPI and below Exam Narrative: General: appears uncomfortable Eyes: EOMI ENT: neck supple Cardiovascular: Regular rate and rhythm Respiratory: Clear to auscultation, respirations even and unlabored on RA Gastrointestinal: Soft, non tender Genitourinary: no suprapubic tenderness Musculoskeletal: No edema Skin: warm, dry Neuro: Alert. Psych: Mood appropriate Const: General: comfortable, no acute distress and uncomfortable Other: , female, nontoxic appearance HENMT: Face/Nose/Sinus: Normal nares present Mouth: Yes moist mucous membranes Eyes: General: appearance normal, both eyes and all related structures Sclera: sclerae normal Pupils: Equal, round and reactive pupils present EOM: EOMs intact bilaterally Resp: Effort & Inspection: normal respiratory effort Auscultation: clear to auscultation bilaterally Cardio: Rate: regular rate Rhythm: regular rhythm Other: S1-S2 present without murmur, rub, ectopy GI: Other: Abdomen soft, nondistended, nontender. Normoactive bowel sounds in all quadrants. Skin: General skin exam: normal color and no rashes or lesions noted Wounds: no wounds Neuro: Cranial nerves: Yes Equal, round and reactive pupils present Speech: normal speech Motor exam (neuro): 5/5 motor strength present throughout Sensory Exam: normal sensation Other: No numbness or tingling, pain with movement in her lower back that radiates down her bilateral lower extremities. Extrem: Other: 1-2+ pitting edema, symmetric, and legs very tight/firm. Psych: Mental Status: mental status grossly normal Affect: Anxious affect present Other: good insight and judgement, pleasant. Objective Data Vital Signs Vital Signs: Vital Signs - 24 hr 03/07/25 19:53 03/08/25 04:34 03/08/25 08:00 Temperature 97.8 F 97.6 F Pulse Rate 82 83 Respiratory Rate 17 17 Blood Pressure 133/76 128/77 Pulse Oximetry 100 99 Oxygen Delivery Room Air 03/08/25 13:45 Temperature 98.1 F Pulse Rate 77 Respiratory Rate 16 Blood Pressure 122/83 Pulse Oximetry 99 Oxygen Delivery Room Air Intake/Output Intake/Output: Intake & Output 03/05/25 03/06/25 03/07/25 03/08/25 23:59 23:59 23:59 23:59 Intake Total 2360 Output Total 900 950 Balance 1460 -950 Meds/Results Medications: Active Medications Generic Name Dose Route Start Last Admin Trade Name Freq PRN Reason Stop Dose Admin Acetaminophen 1,000 mg 03/06/25 17:01 Acetaminophen 500 Mg Tablet PO Q6H PRN Pain Rated 1-3 Albuterol 1 puff 03/06/25 21:53 Albuterol Sulfate (*Sp) Aerosol 1 Puff INHALATION Q4-6H PRN Wheezing Calcium Carbonate 500 mg 03/07/25 12:00 03/08/25 11:57 Calcium Carbonate (Oscal) 500 Mg Tablet PO Not Given DAILY@1200 LANG Docusate Sodium 100 mg 03/06/25 17:06 Docusate Sodium 100 Mg Capsule PO Q12H PRN Constipation Enoxaparin Sodium 40 mg 03/07/25 09:00 03/07/25 08:19 Enoxaparin 40 Mg/0.4 Ml Syringe SUB-Q 40 mg On Hold: 03/08/25 09:00 DAILY LANG Administration Fentanyl Citrate 25 mcg 03/08/25 13:34 Fentanyl Citrate Inj (*Crx) 100 Mcg/2 Ml Vial IV PUSH Q2M PRN Pain Gabapentin 300 mg 03/06/25 21:40 03/08/25 09:39 Gabapentin 300 Mg Capsule PO 300 mg Q12HR LANG Administration Hydrochlorothiazide 12.5 mg 03/07/25 09:00 03/08/25 09:39 Hydrochlorothiazide 12.5 Mg Capsule PO 12.5 mg DAILY LANG Administration Hydroxyzine HCl 25 mg 03/06/25 21:38 03/07/25 08:18 Hydroxyzine Hcl 25 Mg Tablet PO 25 mg QID PRN Administration Anxiety Ceftriaxone Sodium 1 gm/ 50 mls @ 100 mls/hr 03/07/25 14:00 03/08/25 14:00 Sodium Chloride IVPB 100 mls/hr Q24H LANG Administration Lactated Ringer's 1,000 mls @ 30 mls/hr 03/08/25 13:35 03/08/25 14:02 Lr - Lactated Ringers Iv IV CONT 30 mls/hr .Q24H LANG Administration Lactated Ringer's 1,000 mls @ 30 mls/hr 03/08/25 13:35 Lr - Lactated Ringers Iv IV CONT .Q24H [facility] Levothyroxine Sodium 50 mcg 03/07/25 06:30 03/08/25 05:27 Levothyroxine Sodium 50 Mcg Tablet PO 50 mcg DAILY@0630 [facility] Administration Lisinopril 10 mg 03/07/25 09:00 03/08/25 09:40 Lisinopril 10 Mg Tablet PO 10 mg DAILY LANG Administration Loratadine 10 mg 03/06/25 21:44 Loratadine 10 Mg Tablet PO DAILY PRN Congestion Meclizine HCl 25 mg 03/06/25 21:38 Meclizine Hcl 25 Mg Tablet PO TID PRN Dizziness Or Vertigo Meloxicam 15 mg 03/07/25 09:00 03/07/25 08:16 Meloxicam 7.5 Mg Tablet PO 15 mg On Hold: 03/08/25 09:00 DAILY [facility] Administration Morphine Sulfate 4 mg 03/07/25 10:39 03/08/25 04:20 Morphine Sulfate (*Crx) 4 Mg/Ml Inj IV PUSH 4 mg Q4H PRN Administration Pain Rated 7-10 Multivitamins Therapeutic 1 tablet 03/07/25 12:00 03/08/25 11:57 Multivitamins Therapeutic Tab (*Bkc) PO Not Given DAILY@1200 [facility] Ondansetron HCl 4 mg 03/06/25 17:01 Ondansetron Hcl Odt 4 Mg Tablet PO Q6H PRN Nausea And Vomiting Ondansetron HCl 4 mg 03/08/25 13:34 Ondansetron Inj 4 Mg/2 Ml Vial IV PUSH ONCE PRN Nausea Oxycodone/Acetaminophen 1 tablet 03/07/25 10:39 Oxycodone/Acetaminophen (*Crx) 5-325 Mg Tablet PO Q4H PRN Moderate Pain (4-6) Oxycodone/Acetaminophen 1 tab 03/07/25 10:39 03/08/25 09:41 Oxycodone/Acetaminophen (*Crx) 10-325 Mg Tablet PO 1 tab Q4H PRN Administration Pain Rated 7-10 Pantoprazole Sodium 40 mg 03/07/25 09:00 03/08/25 09:40 Pantoprazole 40 Mg Tablet PO 40 mg QAM LANG Administration Polyethylene Glycol 17 gm 03/06/25 17:06 Polyethylene Glycol 3350 17 Gm Powd.Pack PO QAM PRN Constipation Fluticasone/Salmeterol 2 puff 03/07/25 08:00 03/08/25 10:50 Fluticasone/Salmeterol 45-21 Mcg Inhaler 1 Puff INHALATION Not Given DAILYRT LANG Simvastatin 40 mg 03/07/25 09:00 03/08/25 09:39 Simvastatin 20 Mg Tablet PO 40 mg DAILY LANG Administration Tizanidine HCl 2 mg 03/07/25 10:40 03/08/25 09:40 Tizanidine Hcl 2 Mg Tablet PO 2 mg QAM LANG Administration Vitamin D 25 mcg 03/07/25 09:00 03/08/25 09:39 Cholecalciferol (Vitamin D3) 25 Mcg (1,000 Units) Tablet PO 25 mcg DAILY LANG Administration Vitamin D 250 mcg 03/07/25 09:00 03/08/25 09:39 Cholecalciferol (Vitamin D3) 125 Mcg (5,000 Units) Tablet PO 250 mcg DAILY LANG Administration Radiology Results: ITS Impressions Venous Doppler Study 03/06/25 14:49 IMPRESSION: 1. No deep venous thrombosis in either lower limb. Chest X-Ray 03/06/25 16:17 IMPRESSION: 1: NO ACUTE CARDIOPULMONARY DISEASE. Lumbar Spine MRI 03/07/25 14:47 IMPRESSION: 1. Status post L5 laminectomy with instrumented anterior and posterior L5-S1 spinal fusion. There is a 3.5 x 3.2 x 3.2 similar loculated fluid collection at the laminectomy bed most likely postoperative hematoma/seroma although differential would include abscess in the appropriate clinical setting. This exerts some mass effect upon the posterior margin of the thecal sac which along with some residual extruded disc material centrally at the L5-S1 disc space contributes to moderate central canal stenosis. 2. Moderate to severe spondylosis at L4-L5 and mild spondylosis and more cephalad lumbar spine with additional postoperative change of recent left L3-L4 hemilaminotomy. 3. Study limited by absence of axial and postcontrast imaging with study terminated prematurely due to patient discomfort. Labs Labs: Laboratory Results - last 24 hr 03/07/25 03/08/25 17:00 05:52 WBC 4.3 L RBC 2.99 L Hgb 8.7 L Hct 28.0 L MCV 93.6 MCH 29.1 MCHC 31.1 L RDW 14.6 H Plt Count 213 MPV 10.8 H Immature Gran % (Auto) 0.2 Neut % (Auto) 42.2 L Lymph % (Auto) 45.4 H Sp[place]ding % (Auto) 8.0 Eos % (Auto) 3.3 Baso % (Auto) 0.9 Lymph # (Auto) 1.93 [place] # (Auto) 0.3 Eos # (Auto) 0.1 Baso # (Auto) 0.0 Abs Immat Gran (auto) 0.01 Absolute Neuts (auto) 1.8 Absolute Nucleated RBC 0.000 Nucleated RBC % 0.0 ESR 34 H Sodium 134 L Potassium 4.6 Chloride 103 Carbon Dioxide 28 Anion Gap 3 L BUN 18 H Creatinine 0.74 Estim Creat Clear Calc 58 Estimated GFR > 60 Glucose 79 Calcium 8.8 C-Reactive Protein 0.7 Quality VTE Prophylaxis VTE prophylaxis: pharmacologic ordered
[2025-03-08] MEDS: LIDO 1%/EPINEPHRINE 1:100,000 20 ML VIAL 10 ML INFILTRATE (14:52)
--- NOTE | 2025-03-08 15:46 | P.OP_ITS ---
Procedure Note - Detailed Date of Procedure 03/08/25 Pre-op Diagnosis back pain,leg edema, postop seroma, hardware failure Post-op Diagnosis Same Procedure Performed lumbar wound exploration for seroma, revision of posterior instrumentation L5- S1, redo posterolateral fusion L5-S1 Surgeon Hao Silvestre MD Anesthesia General Description of Procedure patient was brought to the operating room in the supine position, was sedated, intubated placed under general anesthesia in routine fashion. She was then t urned into the prone position on an open Morteza table. The of operation on her back was examined, marked for incision, prepped and draped in routine sterile fashion. Incision was marked over the previous incision in the midline. This area was injected with 0.5% lidocaine with [id number] epinephrine. Intravenous antibiotics given prior to incision. Incision was made with a 10 blade scalpel down to the lumbodorsal fascia. A subperiosteal dissection of the muscle soft tissue away from spinous process and lamina at L4 was performed with a subperiosteal elevator and Bovie cautery. Bovie cautery was used to come to the soft tissue until the instrumentation was discovered on either side. The seroma was entered using Bovie cautery and under pressure clear serosanguineous fluid came from under the scar. The cavity was completely opened using Bovie cautery exposing the dura below. The instrumentation was found to have failed on the left side inferiorly. All the caps removed on both sides. The rods were placed into the screw heads and new caps were used to secure the min position. These were definitively tightened with a torque and anti torque device. Bovie cautery was used to expose the L5 spinous process and the ala of the sacrum. This was done on both sides. The surfaces were decorticated and then magnetos was placed against these decorticated surfaces. The wound was copiously irrigated with bacitracin irrigation all bleeding stopped with bipolar and Bovie cautery and Gelfoam thrombin powder. The wound was then closed in layered fashion over medium Hemovac drain left in the subfascial position buried out the inferior right of the incision. 2-0 Vicryl interrupted sutures were placed in the lumbodorsal fascia and Shawn's layer. 3-0 Vicryl buried interrupted sutures were placed in the dermis and skin was closed with a running 4-0 Monocryl subcuticular stitch and dressed with Dermabond. The patient was allowed to wake up in the operating room and was taken to the recovery room in stable condition. There were no immediate complications of this operation. All counts reported correct in the case. Blood lo Estimated Blood Loss 110 Urine Output 300 Drains Yes Complications None Condition Stable Disposition PACU [facility] Billing Surgery - Charge Forward: Surgery Billing
[2025-03-08] MEDS: fentaNYL CITRATE INJ (*CRX) 100 MCG/2 ML VIAL 25 MCG IV PUSH ×5 (16:31→17:00)
--- NOTE | 2025-03-08 17:15 | PC.NURSE ---
Returned to room per hospital bed from OR.
[2025-03-08] MEDS: KCL 20 MEQ/D5/0.45% SOD CHL 1,000 ML 100 ML IV CONT (17:30)
[2025-03-08] MEDS: CYCLOBENZAPRINE HCL 10 MG TABLET PO (17:33)
[2025-03-08] MEDS: DOCUSATE SODIUM 100 MG CAPSULE PO (21:40)
[2025-03-08] MEDS: HYDROmorphone HCL INJ (*CRX) 1 MG/ML SYR 0.5 MG IV PUSH (21:55)
[2025-03-09] VITALS (7 sets, daily range): BP systolic 100–120; BP diastolic 57–69; PULSE 73–100; RESP 18–20; TEMP 36.1–37.3; O2SAT 92–100
[2025-03-09] MEDS: oxyCODONE/ACETAMINOPHEN (*CRX) 10-325 MG TABLET 1 TAB PO ×4 (06:33→20:49)
[2025-03-09] MEDS: LEVOTHYROXINE SODIUM 50 MCG TABLET PO (06:33)
--- NOTE | 2025-03-09 07:27 | WPDANESPN ---
Anes - Prog Note Post-Op Date/Time: 03/09/25 07:27 Cardiovascular status: normal Respiratory status: normal Airway patency: baseline Mental status: baseline Post-Op hydration status: normal Vital Signs: Last Vital Signs Temp 36.1 C L 03/09/25 03:54 Pulse 84 03/09/25 03:54 Resp 18 03/09/25 03:54 BP 120/69 03/09/25 03:54 Pulse Ox 95 03/09/25 03:54 O2 Del Method Room Air 03/08/25 21:06 O2 Flow Rate 6 03/08/25 16:10 Pain Score (VAS): 1 I/O: Intake & Output 03/08/25 03/08/25 03/09/25 15:59 23:59 07:59 Intake Total 50 300 150 Output Total 254 87 5025 Balance -900 225 -950 Laboratory Tests 03/08/25 05:52 03/08/25 05:52 Microbiology 03/07/25 00:00 Urine Clean Catch - Preliminary Gram negative bacilli isolated Post-procedural complaints: none Patient Feedback: Patient satisfied with anesthetic care.
[2025-03-09] MEDS: CHOLECALCIFEROL (VITAMIN D3) 25 MCG (1,000 UNITS) TABLET PO (08:42)
[2025-03-09] MEDS: PANTOPRAZOLE 40 MG TABLET PO (08:42)
[2025-03-09] MEDS: CHOLECALCIFEROL (VITAMIN D3) 125 MCG (5,000 UNITS) TABLET 250 MCG PO (08:42)
[2025-03-09] MEDS: DOCUSATE SODIUM 100 MG CAPSULE PO ×2 (08:43→20:49)
[2025-03-09] MEDS: SIMVASTATIN 20 MG TABLET 40 MG PO (08:43)
[2025-03-09] MEDS: GABAPENTIN 300 MG CAPSULE PO ×2 (08:43→20:48)
[2025-03-09] MEDS: FLUTICASONE/SALMETEROL 45-21 MCG INHALER 1 PUFF 2 PUFF INHALATION (09:54)
[2025-03-09] MEDS: CYCLOBENZAPRINE HCL 10 MG TABLET PO (10:29)
--- NOTE | 2025-03-09 11:28 | PC.NURSE ---
On 03/09/25, the RN, Vilma Russell, provided care and completed [facility] documentation on this patient. I have reviewed the RN's documentation and agree with the findings.
[2025-03-09] MEDS: MULTIVITAMINS THERAPEUTIC TAB (*BKC) 1 TABLET PO (11:46)
[2025-03-09] MEDS: CALCIUM CARBONATE (OSCAL) 500 MG TABLET PO (11:46)
[2025-03-09] MEDS: cefTRIAXone 1 GM in SODIUM CHLORIDE 0.9% IV 50 ML 100 ML IVPB (14:11)
--- NOTE | 2025-03-09 15:42 | P.PNIM_ITS ---
Progress Note: A&P Assessment and Plan (1) Back pain: Qualifiers: Back pain laterality: bilateral Back pain location: low back pain Chronicity: acute Sciatica laterality: sciatica of right side Sciatica presence: with sciatica Qualified Code(s): M54.41 - Lumbago with sciatica, right side Code(s): M54.9 - Dorsalgia, unspecified Status: Acute Assessment and Plan: s/p L5-S1 posterior lumbar interbody fusion and L3-4 hemilaminectomy 01/10/[address] Silvestre. Initially complicated by post-operative pain. Plain films demonstrated good position of the hardware and interbody devices with the exception of the left srinath which seems to not be seated in the left S1 screw head per patient's neurosurgeon. CT was completed on 03/01 (see impression below) as follow-up on this imaging. Patient has also developed new difficulty urinating for the past week, historically has had urinary incontinence for years. - CT lumbar spine, 03/01: 1. Severe lower lumbar spondylosis status post interval L5 laminectomy and combined instrumented L5-S1 anterior and posterior spinal fusion. Of note there appears to be a subacute to early chronic still discernible nondisplaced coron ally oriented fracture extends across the anterior base of the right L5 pedicle. 2. Although significantly more limited on CT than with MRI particularly in the presence of streak artifact related to the metallic instrumentation, there appears to be increased soft tissue density at the laminectomy bed with suggestion of moderate residual central canal stenosis at this level. Would consider further evaluation with MRI as clinically indicated. 3. Interval instrumented left sacroiliac arthrodesis. - bladder scan with PVR 0 in ED - neurosurgery consulted - MR lumbar spine - analgesics - continue home gabapentin. Start PRN Percocet, Morphine for breakthrough. Trial tizanidine. Patient reports she is no longer on steroids. - PT/OT once NSG clears neurosurgery notes reviewed: Wound Exploration For Hematoma with Dillon Mack today 03/09- neurosurgery didnot round today yet- pt is in pain and lt leg is numb- but nit much worse than it was (2) Peripheral edema: Code(s): R60.0 - Localized edema Status: Acute Assessment and Plan: Reporting new, significant BLE edema. BNP WNL for age and CXR did not demonstrate any pulmonary edema. S/p lumbar surgery in December of 2024. Possible complications noted on imaging, see above. - neli wraps as tolerated, october d/c at night to sleep - BNP and CXR not indicative of CHF - BLE VD negative for DVT - complication to lumbar surgery/immobility? - mobilize as able. Elevate lower extremities. (3) Urinary tract infection: Code(s): N39.0 - Urinary tract infection, site not specified Status: Acute Assessment and Plan: - UA with positive nitrates, 1+ LE, 6-10 WBC - patient reports urinary hesitancy - previous culture with pansensitive Klebsiella - start IV Rocephin, await urine culture continue rocephin will downgrade to PO tommorrow (4) Hypertension: Qualifiers: Hypertension type: primary hypertension Qualified Code(s): I10 - Essential (primary) hypertension Code(s): I10 - Essential (primary) hypertension Status: Chronic Assessment and Plan: - chronic, currently 126/71 - continue home medications: HCTZ, lisinopril - monitor (5) Anemia: Code(s): D64.9 - Anemia, unspecified Status: Acute Assessment and Plan: - Hgb 11.7 7/3. 9.5 on admission, trended down to 8.6 - may have component of hemodilution as patient was on fluids overnight - denied signs of bleeding - check iron studies, occult stool - monitor CBC. Transfuse Hgb <7. daily labs ordered Plan DVT Prophylaxis: lovenox SQ Code Status: full code Time Spent With Patient Time with patient: Greater than 35 minutes Subjective Date/time seen: 03/09/25 15:42 Interval history: 75 y/o F with PMH of mitral valve prolapse, hypothyroidism, hyperlipidemia, asthma, and hypertension presents here with back pain and lower extremity edema. The patient presents here for further evaluation of back pain and lower extremity edema on 03/06. She had a L5-S1 posterior lumbar interbody fusion and L3-4 hemilaminectomy done on 01/10/2025 by Konrad VELA. She had significant back pain postop, otherwise no particular issues while she was hospitalized and she was discharged home on 01/14. She reports after surgery she developed significant discomfort in her lower back which radiated into her right buttock, left sacral area, and it down her right leg to her foot (now down both legs). Pain has been ongoing since surgery but has been worsening in the last few weeks. She followed up with her neurosurgeon on 02/21 for this issue. She had an x-ray of her lumbar spine which showed hardware/interbody devices were in good position except a left broad which seem to not be seated in the left S1 screw head. Plan was for further investigation via a CT scan which was completed on 03/01 which showed severe lower lumbar spondylosis s/p laminectomy and combine instrumented L5/S1 spinal fusion, subacute to early chronic still discernable nondisplaced coronally oriented fracture extending across anterior base of the right L5 pedicle, increased soft tissue density at the laminectomy bed with suggestion of moderate residual central canal stenosis at this level, interval instrumented left sacroiliac arthrodesis. Patient is additionally reporting it new difficulty urinating for the past week. Previously had had urinary incontinence for years. As well as lower extremity edema for the past 3-4 days. She denies accompanying bowel incontinence or saddle anesthesia. Patient previously walked with a cane prior to surgery. Now has to ambulate with a walker and has experienced a few falls due to the pain. Assuming care. Pt is seen and examined . Neurosurgery consulted and following. Wound Exploration For Hematoma Johnathon Silvestre today. 03/09- pt is in pain, lt leg is numb. no bm. no n/v/d Review of Systems Review of Systems: All systems reviewed & are unremarkable except as noted in HPI and below Exam Narrative: General: appears uncomfortable but reports in pain. drain is in place Eyes: EOMI ENT: neck supple Cardiovascular: Regular rate and rhythm Respiratory: Clear to auscultation, respirations even and unlabored on RA Gastrointestinal: Soft, non tender Genitourinary: no suprapubic tenderness Musculoskeletal: No edema Skin: warm, dry Neuro: Alert. Psych: Mood appropriate Const: General: comfortable, no acute distress and uncomfortable Other: , female, nontoxic appearance HENMT: Face/Nose/Sinus: Normal nares present Mouth: Yes moist mucous membranes Eyes: General: appearance normal, both eyes and all related structures Sclera: sclerae normal Pupils: Equal, round and reactive pupils present EOM: EOMs intact bilaterally Resp: Effort & Inspection: normal respiratory effort Auscultation: clear to auscultation bilaterally Cardio: Rate: regular rate Rhythm: regular rhythm Other: S1-S2 present without murmur, rub, ectopy GI: Other: Abdomen soft, nondistended, nontender. Normoactive bowel sounds in all marcy drants. Skin: General skin exam: normal color and no rashes or lesions noted Wounds: no wounds Neuro: Cranial nerves: Yes Equal, round and reactive pupils present Speech: normal speech Motor exam (neuro): 5/5 motor strength present throughout Sensory Exam: normal sensation Other: No numbness or tingling, pain with movement in her lower back that radiates down her bilateral lower extremities. Extrem: Other: 1-2+ pitting edema, symmetric, and legs very tight/firm. Psych: Mental Status: mental status grossly normal Affect: Anxious affect present Other: good insight and judgement, pleasant. Objective Data Vital Signs Vital Signs: Vital Signs - 24 hr 03/08/25 15:57 03/08/25 16:10 03/08/25 16:25 Temperature 97.5 F L Pulse Rate 96 93 97 Respiratory Rate 16 14 18 Blood Pressure 154/85 H 142/89 H 162/91 H Pulse Oximetry 100 100 100 Oxygen Delivery Simple Face Mask Simple Face Mask Room Air Oxygen Flow Rate 6 6 03/08/25 16:40 03/08/25 16:55 03/08/25 17:10 Temperature 97.4 F L Pulse Rate 94 93 93 Respiratory Rate 16 12 14 Blood Pressure 141/80 H 142/80 H 139/81 Pulse Oximetry 96 93 93 Oxygen Delivery Room Air Room Air Room Air Oxygen Flow Rate 03/08/25 17:30 03/08/25 17:45 03/08/25 18:15 Temperature 97.5 F L 97.5 F L 97.6 F Pulse Rate 87 84 84 Respiratory Rate 15 16 16 Blood Pressure 161/97 H 163/87 H 148/82 H Pulse Oximetry 92 97 94 Oxygen Delivery Oxygen Flow Rate 03/08/25 20:00 03/08/25 20:12 03/08/25 21:06 Temperature 98.1 F Pulse Rate 93 91 Respiratory Rate 20 18 Blood Pressure 168/99 H Pulse Oximetry 94 96 96 Oxygen Delivery Room Air Room Air Oxygen Flow Rate 03/08/25 23:41 03/09/25 03:54 03/09/25 08:00 Temperature 98.1 F 97 F L 97.2 F L Pulse Rate 93 84 90 Respiratory Rate 20 18 18 Blood Pressure 111/62 120/69 105/60 Pulse Oximetry 94 95 99 Oxygen Delivery Oxygen Flow Rate 03/09/25 08:40 03/09/25 09:55 03/09/25 11:45 Temperature Pulse Rate 73 Respiratory Rate 20 Blood Pressure Pulse Oximetry Oxygen Delivery Room Air Room Air Oxygen Flow Rate 03/09/25 12:00 Temperature 97.3 F L Pulse Rate 91 Respiratory Rate 18 Blood Pressure 113/61 Pulse Oximetry 100 Oxygen Delivery Oxygen Flow Rate Intake/Output Intake/Output: Intake & Output 03/06/25 03/07/25 03/08/25 03/09/25 23:59 23:59 23:59 23:59 Intake Total 2360 350 1630 Output Total 900 1325 1600 Balance 1460 -975 30 Meds/Results Medications: Active Medications Generic Name Dose Route Start Last Admin Trade Name Freq PRN Reason Stop Dose Admin Acetaminophen 1,000 mg 03/06/25 17:01 Acetaminophen 500 Mg Tablet PO Q6H PRN Pain Rated 1-3 Al Hydrox/Mg Hydrox/Simethicone 20 ml 03/08/25 17:12 Mag Hydrox/Al Hydrox/Simeth 30 Ml Udc PO Q4H PRN Indigestion/Heartburn Albuterol 1 puff 03/06/25 21:53 Albuterol Sulfate (*Sp) Aerosol 1 Puff INHALATION Q4-6H PRN Wheezing Bisacodyl 10 mg 03/08/25 17:12 Bisacodyl 10 Mg Suppository RECTAL DAILY PRN Constipation Calcium Carbonate 500 mg 03/07/25 12:00 03/09/25 11:46 Calcium Carbonate (Oscal) 500 Mg Tablet PO 500 mg DAILY@1200 [facility] Administration Cyclobenzaprine HCl 10 mg 03/08/25 17:12 03/09/25 10:29 Cyclobenzaprine Hcl 10 Mg Tablet PO 10 mg TID PRN Administration Muscle Spasms Docusate Sodium 100 mg 03/06/25 17:06 Docusate Sodium 100 Mg Capsule PO Q12H PRN Constipation Docusate Sodium 100 mg 03/08/25 21:00 03/09/25 08:43 Docusate Sodium 100 Mg Capsule PO 100 mg Q12HR LANG Administration Gabapentin 300 mg 03/06/25 21:40 03/09/25 08:43 Gabapentin 300 Mg Capsule PO 300 mg Q12HR LANG Administration Hydrochlorothiazide 12.5 mg 03/07/25 09:00 03/09/25 08:42 Hydrochlorothiazide 12.5 Mg Capsule PO 12.5 mg DAILY LANG Administration Hydromorphone HCl 0.5 mg 03/08/25 17:12 03/08/25 21:55 Hydromorphone Hcl Inj (*Crx) 1 Mg/Ml Syr IV PUSH 0.5 mg Q2H PRN Administration Pain Rated 7-10 Hydroxyzine HCl 25 mg 03/06/25 21:38 03/07/25 08:18 Hydroxyzine Hcl 25 Mg Tablet PO 25 mg QID PRN Administration Anxiety Ceftriaxone Sodium 1 gm/ 50 mls @ 100 mls/hr 03/07/25 14:00 03/09/25 14:11 Sodium Chloride IVPB 100 mls/hr Q24H LANG Administration Levothyroxine Sodium 50 mcg 03/07/25 06:30 03/09/25 06:33 Levothyroxine Sodium 50 Mcg Tablet PO 50 mcg DAILY@0630 LANG Administration Lisinopril 10 mg 03/07/25 09:00 03/09/25 08:42 Lisinopril 10 Mg Tablet PO 10 mg DAILY LANG Administration Loratadine 10 mg 03/06/25 21:44 Loratadine 10 Mg Tablet PO DAILY PRN Congestion Meclizine HCl 25 mg 03/06/25 21:38 Meclizine Hcl 25 Mg Tablet PO TID PRN Dizziness Or Vertigo Multivitamins Therapeutic 1 tablet 03/07/25 12:00 03/09/25 11:46 Multivitamins Therapeutic Tab (*Bkc) PO 1 tablet DAILY@1200 [facility] Administration Ondansetron HCl 4 mg 03/06/25 17:01 Ondansetron Hcl Odt 4 Mg Tablet PO Q6H PRN Nausea And Vomiting Ondansetron HCl 4 mg 03/08/25 17:12 Ondansetron Inj 4 Mg/2 Ml Vial IV PUSH Q8H PRN Nausea And Vomiting Oxycodone/Acetaminophen 1 tab 03/07/25 10:39 03/09/25 14:36 Oxycodone/Acetaminophen (*Crx) 10-325 Mg Tablet PO 1 tab Q4H PRN Administration Pain Rated 7-10 Oxycodone/Acetaminophen 1 tablet 03/08/25 17:12 Oxycodone/Acetaminophen (*Crx) 5-325 Mg Tablet PO Q4H PRN Mild Pain (1-3) Oxycodone/Acetaminophen 1 tab 03/08/25 17:12 03/08/25 22:52 Oxycodone/Acetaminophen (*Crx) 10-325 Mg Tablet PO 1 tab Q4H PRN Administration Moderate Pain (4-6) Pantoprazole Sodium 40 mg 03/07/25 09:00 03/09/25 08:42 Pantoprazole 40 Mg Tablet PO 40 mg QAM LANG Administration Polyethylene Glycol 17 gm 03/06/25 17:06 Polyethylene Glycol 3350 17 Gm Powd.Pack PO QAM PRN Constipation Fluticasone/Salmeterol 2 puff 03/07/25 08:00 03/09/25 09:54 Fluticasone/Salmeterol 45-21 Mcg Inhaler 1 Puff INHALATION 2 puff DAILYRT LANG Administration Senna/Docusate Sodium 1 tab 03/08/25 17:12 Senna/Docusate Sodium Tablet PO HS PRN Constipation Simvastatin 40 mg 03/07/25 09:00 03/09/25 08:43 Simvastatin 20 Mg Tablet PO 40 mg DAILY LANG Administration Vitamin D 25 mcg 03/07/25 09:00 03/09/25 08:42 Cholecalciferol (Vitamin D3) 25 Mcg (1,000 Units) Tablet PO 25 mcg DAILY LANG Administration Vitamin D 250 mcg 03/07/25 09:00 03/09/25 08:42 Cholecalciferol (Vitamin D3) 125 Mcg (5,000 Units) Tablet PO 250 mcg DAILY LANG Administration Radiology Results: ITS Impressions Venous Doppler Study 03/06/25 14:49 IMPRESSION: 1. No deep venous thrombosis in either lower limb. Chest X-Ray 03/06/25 16:17 IMPRESSION: 1: NO ACUTE CARDIOPULMONARY DISEASE. Lumbar Spine MRI 03/07/25 14:47 IMPRESSION: 1. Status post L5 laminectomy with instrumented anterior and posterior L5-S1 spinal fusion. There is a 3.5 x 3.2 x 3.2 similar loculated fluid collection at the laminectomy bed most likely postoperative hematoma/seroma although differential would include abscess in the appropriate clinical setting. This exerts some mass effect upon the posterior margin of the thecal sac which along with some residual extruded disc material centrally at the L5-S1 disc space contributes to moderate central canal stenosis. 2. Moderate to severe spondylosis at L4-L5 and mild spondylosis and more cephalad lumbar spine with additional postoperative change of recent left L3-L4 hemilaminotomy. 3. Study limited by absence of axial and postcontrast imaging with study terminated prematurely due to patient discomfort. Quality VTE Prophylaxis VTE prophylaxis: pharmacologic ordered
[2025-03-09] MEDS: dexAMETHasone SOD PHOS INJ 10 MG/ML 1 ML VIAL IV PUSH (16:47)
[2025-03-09] MEDS: SENNA/DOCUSATE SODIUM TABLET 1 TAB PO (16:47)
--- NOTE | 2025-03-09 17:42 | WPDNEUROSGPN ---
Progress Note: A&P Assessment and Plan (1) Status post lumbar spinal arthrodesis: Code(s): Z98.1 - Arthrodesis status Status: Acute Plan Yaima is doing well but is having issues in her left lower extremity that we will continue to attempt to treat medically. This is most likely muscle spasm. If it fails to improve after the change in the muscle relaxant we will try another. She may continue to participate in physical and occupational therapy Subjective Date/time seen: 03/09/25 17:42 Interval history: Yaima is postop day 1 status post wound exploration and revision of posterior instrumentation at L5-S1. The nerve pain she was having in her back radiating into her lower extremities going away. The greatest complaint today is of spasms in her calf and into the foot. She has had difficulty ambulating because of that. We switched her muscle relaxant today. She continues to participate in physical and occupational therapy. Exam Narrative: Movement of the lower extremities and strength appear to be normal in all muscle groups. Sensation is intact to light touch in the lower extremities Her wound is clean, dry and intact. Objective Data Vital Signs Vital Signs: Vital Signs - 24 hr 03/08/25 17:45 03/08/25 18:15 03/08/25 20:00 Temperature 97.5 F L 97.6 F Pulse Rate 84 84 93 Respiratory Rate 16 16 20 Blood Pressure 163/87 H 148/82 H Pulse Oximetry 97 94 94 Oxygen Delivery Room Air 03/08/25 20:12 03/08/25 21:06 03/08/25 23:41 Temperature 98.1 F 98.1 F Pulse Rate 91 93 Respiratory Rate 18 20 Blood Pressure 168/99 H 111/62 Pulse Oximetry 96 96 94 Oxygen Delivery Room Air 03/09/25 03:54 03/09/25 08:00 03/09/25 08:40 Temperature 97 F L 97.2 F L Pulse Rate 84 90 Respiratory Rate 18 18 Blood Pressure 120/69 105/60 Pulse Oximetry 95 99 Oxygen Delivery Room Air 03/09/25 09:55 03/09/25 11:45 03/09/25 12:00 Temperature 97.3 F L Pulse Rate 73 91 Respiratory Rate 20 18 Blood Pressure 113/61 Pulse Oximetry 100 Oxygen Delivery Room Air 03/09/25 16:51 Temperature 97.4 F L Pulse Rate 95 Respiratory Rate 18 Blood Pressure 100/60 Pulse Oximetry 92 Oxygen Delivery Intake/Output Intake/Output: Intake & Output 03/06/25 03/07/25 03/08/25 03/09/25 23:59 23:59 23:59 23:59 Intake Total 2360 350 1630 Output Total 900 1325 1600 Balance 1460 -975 30 Meds/Results Medications: Active Medications Generic Name Dose Route Start Last Admin Trade Name Freq PRN Reason Stop Dose Admin Acetaminophen 1,000 mg 03/06/25 17:01 Acetaminophen 500 Mg Tablet PO Q6H PRN Pain Rated 1-3 Al Hydrox/Mg Hydrox/Simethicone 20 ml 03/08/25 17:12 Mag Hydrox/Al Hydrox/Simeth 30 Ml Udc PO Q4H PRN Indigestion/Heartburn Albuterol 1 puff 03/06/25 21:53 Albuterol Sulfate (*Sp) Aerosol 1 Puff INHALATION Q4-6H PRN Wheezing Bisacodyl 10 mg 03/08/25 17:12 Bisacodyl 10 Mg Suppository RECTAL DAILY PRN Constipation Calcium Carbonate 500 mg 03/07/25 12:00 03/09/25 11:46 Calcium Carbonate (Oscal) 500 Mg Tablet PO 500 mg DAILY@1200 LANG Administration Docusate Sodium 100 mg 03/06/25 17:06 Docusate Sodium 100 Mg Capsule PO Q12H PRN Constipation Docusate Sodium 100 mg 03/08/25 21:00 03/09/25 08:43 Docusate Sodium 100 Mg Capsule PO 100 mg Q12HR LANG Administration Gabapentin 300 mg 03/06/25 21:40 03/09/25 08:43 Gabapentin 300 Mg Capsule PO 300 mg Q12HR LANG Administration Hydrochlorothiazide 12.5 mg 03/07/25 09:00 03/09/25 08:42 Hydrochlorothiazide 12.5 Mg Capsule PO 12.5 mg DAILY LANG Administration Hydromorphone HCl 0.5 mg 03/08/25 17:12 03/08/25 21:55 Hydromorphone Hcl Inj (*Crx) 1 Mg/Ml Syr IV PUSH 0.5 mg Q2H PRN Administration Pain Rated 7-10 Hydroxyzine HCl 25 mg 03/06/25 21:38 03/07/25 08:18 Hydroxyzine Hcl 25 Mg Tablet PO 25 mg QID PRN Administration Anxiety Ceftriaxone Sodium 1 gm/ 50 mls @ 100 mls/hr 03/07/25 14:00 03/09/25 14:11 Sodium Chloride IVPB 100 mls/hr Q24H LANG Administration Levothyroxine Sodium 50 mcg 03/07/25 06:30 03/09/25 06:33 Levothyroxine Sodium 50 Mcg Tablet PO 50 mcg DAILY@0630 LANG Administration Lisinopril 10 mg 03/07/25 09:00 03/09/25 08:42 Lisinopril 10 Mg Tablet PO 10 mg DAILY LANG Administration Loratadine 10 mg 03/06/25 21:44 Loratadine 10 Mg Tablet PO DAILY PRN Congestion Meclizine HCl 25 mg 03/06/25 21:38 Meclizine Hcl 25 Mg Tablet PO TID PRN Dizziness Or Vertigo Methocarbamol 750 mg 03/09/25 15:48 03/09/25 16:47 Methocarbamol 750 Mg Tablet PO 750 mg Q8H PRN Administration muscle spasms Multivitamins Therapeutic 1 tablet 03/07/25 12:00 03/09/25 11:46 Multivitamins Therapeutic Tab (*Bkc) PO 1 tablet DAILY@1200 [facility] Administration Ondansetron HCl 4 mg 03/06/25 17:01 Ondansetron Hcl Odt 4 Mg Tablet PO Q6H PRN Nausea And Vomiting Ondansetron HCl 4 mg 03/08/25 17:12 Ondansetron Inj 4 Mg/2 Ml Vial IV PUSH Q8H PRN Nausea And Vomiting Oxycodone/Acetaminophen 1 tab 03/07/25 10:39 03/09/25 14:36 Oxycodone/Acetaminophen (*Crx) 10-325 Mg Tablet PO 1 tab Q4H PRN Administration Pain Rated 7-10 Oxycodone/Acetaminophen 1 tablet 03/08/25 17:12 Oxycodone/Acetaminophen (*Crx) 5-325 Mg Tablet PO Q4H PRN Mild Pain (1-3) Oxycodone/Acetaminophen 1 tab 03/08/25 17:12 03/08/25 22:52 Oxycodone/Acetaminophen (*Crx) 10-325 Mg Tablet PO 1 tab Q4H PRN Administration Moderate Pain (4-6) Pantoprazole Sodium 40 mg 03/07/25 09:00 03/09/25 08:42 Pantoprazole 40 Mg Tablet PO 40 mg QAM LANG Administration Polyethylene Glycol 17 gm 03/06/25 17:06 Polyethylene Glycol 3350 17 Gm Powd.Pack PO QAM PRN Constipation Fluticasone/Salmeterol 2 puff 03/07/25 08:00 03/09/25 09:54 Fluticasone/Salmeterol 45-21 Mcg Inhaler 1 Puff INHALATION 2 puff DAILYRT LANG Administration Senna/Docusate Sodium 1 tab 03/08/25 17:12 Senna/Docusate Sodium Tablet PO HS PRN Constipation Senna/Docusate Sodium 1 tab 03/09/25 17:00 03/09/25 16:47 Senna/Docusate Sodium Tablet PO 1 tab BID LANG Administration Simvastatin 40 mg 03/07/25 09:00 03/09/25 08:43 Simvastatin 20 Mg Tablet PO 40 mg DAILY LANG Administration Vitamin D 25 mcg 03/07/25 09:00 03/09/25 08:42 Cholecalciferol (Vitamin D3) 25 Mcg (1,000 Units) Tablet PO 25 mcg DAILY LANG Administration Vitamin D 250 mcg 03/07/25 09:00 03/09/25 08:42 Cholecalciferol (Vitamin D3) 125 Mcg (5,000 Units) Tablet PO 250 mcg DAILY LANG Administration Radiology Results: ITS Impressions Venous Doppler Study 03/06/25 14:49 IMPRESSION: 1. No deep venous thrombosis in either lower limb. Chest X-Ray 03/06/25 16:17 IMPRESSION: 1: NO ACUTE CARDIOPULMONARY DISEASE. Lumbar Spine MRI 03/07/25 14:47 IMPRESSION: 1. Status post L5 laminectomy with instrumented anterior and posterior L5-S1 spinal fusion. There is a 3.5 x 3.2 x 3.2 similar loculated fluid collection at the laminectomy bed most likely postoperative hematoma/seroma although differential would include abscess in the appropriate clinical setting. This exerts some mass effect upon the posterior margin of the thecal sac which along with some residual extruded disc material centrally at the L5-S1 disc space contributes to moderate central canal stenosis. 2. Moderate to severe spondylosis at L4-L5 and mild spondylosis and more cephalad lumbar spine with additional postoperative change of recent left L3-L4 hemilaminotomy. 3. Study limited by absence of axial and postcontrast imaging with study terminated prematurely due to patient discomfort.
[2025-03-09] MEDS: HYDROmorphone HCL INJ (*CRX) 1 MG/ML SYR 0.5 MG IV PUSH (23:35)
[2025-03-10] VITALS (7 sets, daily range): BP systolic 101–122; BP diastolic 57–63; PULSE 83–93; RESP 16–20; TEMP 36.1–36.7; O2SAT 98–99
[2025-03-10] MEDS: oxyCODONE/ACETAMINOPHEN (*CRX) 10-325 MG TABLET 1 TAB PO ×3 (04:56→18:45)
[2025-03-10 05:27] LABS: Hematocrit 25.4 % (37.0-47.0); Hemoglobin 7.8 g/dL (12.0-15.0); Mean Corpuscular HGB Conc 30.7 g/dl (32-36); Mean Corpuscular Hemoglobin 28.9 pg (26-34); Mean Corpuscular Volume 94.1 fl (80-100); Platelet Count Result 233 k/mm3 (150-375); Red Blood Count 2.70 M/mm3 (4.2-5.4); White Blood Count 7.0 K/mm3 (4.5-10.0)
[2025-03-10 05:41] LABS: Anion Gap 6 mmol/L (4-12); Blood Urea Nitrogen 18 mg/dL (7-17); Calcium 8.8 mg/dL (8.4-10.2); Carbon Dioxide 27 mmol/L (22-30); Chloride 101 mmol/L (98-107); Estimated CRCL calculation 57 ml/min; Estimated Glomerular Filt Rate > 60; Glucose 127 mg/dL (65-110); Potassium 4.6 mmol/L (3.4-5.0); Sodium 134 mmol/L (137-145)
[2025-03-10] MEDS: LEVOTHYROXINE SODIUM 50 MCG TABLET PO (05:45)
[2025-03-10] MEDS: HYDROmorphone HCL INJ (*CRX) 1 MG/ML SYR 0.5 MG IV PUSH ×3 (07:00→21:13)
--- NOTE | 2025-03-10 07:25 | WPDNEUROSGPN ---
Progress Note: A&P Assessment and Plan (1) Lumbar stenosis: Code(s): M48.061 - Spinal stenosis, lumbar region without neurogenic claudication Status: Acute Plan Continue supportive care, PT/OT/mobilize. I will discuss with Dr. Silvestre regarding repeating doppler of the lower extremitys. Subjective Date/time seen: 03/10/25 07:25 Interval history: complains of left leg pain and cramping, she feels as if her leg is Exam Narrative: she moves her right leg full strength her left leg is extremely painful so it is difficult to fully assess her strength but she is able to move her leg spontaneously in all muscle groups. her right leg is significantly more swollen than her left. She has a positive Chuy's sign on the left. Objective Data Vital Signs Vital Signs: Vital Signs - 24 hr 03/09/25 08:00 03/09/25 08:40 03/09/25 09:55 Temperature 97.2 F L Pulse Rate 90 73 Respiratory Rate 18 20 Blood Pressure 105/60 Pulse Oximetry 99 Oxygen Delivery Room Air 03/09/25 11:45 03/09/25 12:00 03/09/25 16:51 Temperature 97.3 F L 97.4 F L Pulse Rate 91 95 Respiratory Rate 18 18 Blood Pressure 113/61 100/60 Pulse Oximetry 100 92 Oxygen Delivery Room Air 03/09/25 20:00 03/09/25 20:52 03/10/25 05:41 Temperature 99.1 F 98.1 F Pulse Rate 100 100 86 Respiratory Rate 18 18 20 Blood Pressure 101/57 L 122/63 Pulse Oximetry 95 95 99 Oxygen Delivery Room Air Intake/Output Intake/Output: Intake & Output 03/07/25 03/08/25 03/09/25 03/10/25 23:59 23:59 23:59 23:59 Intake Total 2360 350 2260 400 Output Total 900 1325 1600 900 Balance 1460 -975 660 -500 Meds/Results Medications: Active Medications Generic Name Dose Route Start Last Admin Trade Name Freq PRN Reason Stop Dose Admin Acetaminophen 1,000 mg 03/06/25 17:01 Acetaminophen 500 Mg Tablet PO Q6H PRN Pain Rated 1-3 Al Hydrox/Mg Hydrox/Simethicone 20 ml 03/08/25 17:12 Mag Hydrox/Al Hydrox/Simeth 30 Ml Udc PO Q4H PRN Indigestion/Heartburn Albuterol 1 puff 03/06/25 21:53 Albuterol Sulfate (*Sp) Aerosol 1 Puff INHALATION Q4-6H PRN Wheezing Bisacodyl 10 mg 03/08/25 17:12 Bisacodyl 10 Mg Suppository RECTAL DAILY PRN Constipation Calcium Carbonate 500 mg 03/07/25 12:00 03/09/25 11:46 Calcium Carbonate (Oscal) 500 Mg Tablet PO 500 mg DAILY@1200 LANG Administration Docusate Sodium 100 mg 03/06/25 17:06 Docusate Sodium 100 Mg Capsule PO Q12H PRN Constipation Docusate Sodium 100 mg 03/08/25 21:00 03/09/25 20:49 Docusate Sodium 100 Mg Capsule PO 100 mg Q12HR LANG Administration Gabapentin 300 mg 03/06/25 21:40 03/09/25 20:48 Gabapentin 300 Mg Capsule PO 300 mg Q12HR LANG Administration Hydrochlorothiazide 12.5 mg 03/07/25 09:00 03/09/25 08:42 Hydrochlorothiazide 12.5 Mg Capsule PO 12.5 mg DAILY LANG Administration Hydromorphone HCl 0.5 mg 03/08/25 17:12 03/10/25 07:00 Hydromorphone Hcl Inj (*Crx) 1 Mg/Ml Syr IV PUSH 0.5 mg Q2H PRN Administration Pain Rated 7-10 Hydroxyzine HCl 25 mg 03/06/25 21:38 03/07/25 08:18 Hydroxyzine Hcl 25 Mg Tablet PO 25 mg QID PRN Administration Anxiety Ceftriaxone Sodium 1 gm/ 50 mls @ 100 mls/hr 03/07/25 14:00 03/09/25 14:41 Sodium Chloride IVPB Infused Q24H LANG Infusion Levothyroxine Sodium 50 mcg 03/07/25 06:30 03/10/25 05:45 Levothyroxine Sodium 50 Mcg Tablet PO 50 mcg DAILY@0630 LANG Administration Lisinopril 10 mg 03/07/25 09:00 03/09/25 08:42 Lisinopril 10 Mg Tablet PO 10 mg DAILY LANG Administration Loratadine 10 mg 03/06/25 21:44 Loratadine 10 Mg Tablet PO DAILY PRN Congestion Meclizine HCl 25 mg 03/06/25 21:38 Meclizine Hcl 25 Mg Tablet PO TID PRN Dizziness Or Vertigo Methocarbamol 750 mg 03/09/25 15:48 03/10/25 04:56 Methocarbamol 750 Mg Tablet PO 750 mg Q8H PRN Administration muscle spasms Multivitamins Therapeutic 1 tablet 03/07/25 12:00 03/09/25 11:46 Multivitamins Therapeutic Tab (*Bkc) PO 1 tablet DAILY@1200 LANG Administration Ondansetron HCl 4 mg 03/06/25 17:01 Ondansetron Hcl Odt 4 Mg Tablet PO Q6H PRN Nausea And Vomiting Ondansetron HCl 4 mg 03/08/25 17:12 Ondansetron Inj 4 Mg/2 Ml Vial IV PUSH Q8H PRN Nausea And Vomiting Oxycodone/Acetaminophen 1 tab 03/07/25 10:39 03/10/25 04:56 Oxycodone/Acetaminophen (*Crx) 10-325 Mg Tablet PO 1 tab Q4H PRN Administration Pain Rated 7-10 Oxycodone/Acetaminophen 1 tablet 03/08/25 17:12 Oxycodone/Acetaminophen (*Crx) 5-325 Mg Tablet PO Q4H PRN Mild Pain (1-3) Oxycodone/Acetaminophen 1 tab 03/08/25 17:12 03/08/25 22:52 Oxycodone/Acetaminophen (*Crx) 10-325 Mg Tablet PO 1 tab Q4H PRN Administration Moderate Pain (4-6) Pantoprazole Sodium 40 mg 03/07/25 09:00 03/09/25 08:42 Pantoprazole 40 Mg Tablet PO 40 mg QAM LANG Administration Polyethylene Glycol 17 gm 03/06/25 17:06 Polyethylene Glycol 3350 17 Gm Powd.Pack PO QAM PRN Constipation Fluticasone/Salmeterol 2 puff 03/07/25 08:00 03/09/25 09:54 Fluticasone/Salmeterol 45-21 Mcg Inhaler 1 Puff INHALATION 2 puff DAILYRT LANG Administration Senna/Docusate Sodium 1 tab 03/08/25 17:12 Senna/Docusate Sodium Tablet PO HS PRN Constipation Senna/Docusate Sodium 1 tab 03/09/25 17:00 03/09/25 16:47 Senna/Docusate Sodium Tablet PO 1 tab BID LANG Administration Simvastatin 40 mg 03/07/25 09:00 03/09/25 08:43 Simvastatin 20 Mg Tablet PO 40 mg DAILY LANG Administration Vitamin D 25 mcg 03/07/25 09:00 03/09/25 08:42 Cholecalciferol (Vitamin D3) 25 Mcg (1,000 Units) Tablet PO 25 mcg DAILY LANG Administration Vitamin D 250 mcg 03/07/25 09:00 03/09/25 08:42 Cholecalciferol (Vitamin D3) 125 Mcg (5,000 Units) Tablet PO 250 mcg DAILY LANG Administration Radiology Results: ITS Impressions Venous Doppler Study 03/06/25 14:49 IMPRESSION: 1. No deep venous thrombosis in either lower limb. Chest X-Ray 03/06/25 16:17 IMPRESSION: 1: NO ACUTE CARDIOPULMONARY DISEASE. Lumbar Spine MRI 03/07/25 14:47 IMPRESSION: 1. Status post L5 laminectomy with instrumented anterior and posterior L5-S1 spinal fusion. There is a 3.5 x 3.2 x 3.2 similar loculated fluid collection at the laminectomy bed most likely postoperative hematoma/seroma although differential would include abscess in the appropriate clinical setting. This exerts some mass effect upon the posterior margin of the thecal sac which along with some residual extruded disc material centrally at the L5-S1 disc space contributes to moderate central canal stenosis. 2. Moderate to severe spondylosis at L4-L5 and mild spondylosis and more cephalad lumbar spine with additional postoperative change of recent left L3-L4 hemilaminotomy. 3. Study limited by absence of axial and postcontrast imaging with study terminated prematurely due to patient discomfort. Labs Labs: Laboratory Results - last 24 hr 03/10/25 05:11 WBC 7.0 RBC 2.70 L Hgb 7.8 L Hct 25.4 L MCV 94.1 MCH 28.9 MCHC 30.7 L RDW 14.6 H Plt Count 233 MPV 11.0 H Sodium 134 L Potassium 4.6 Chloride 101 Carbon Dioxide 27 Anion Gap 6 BUN 18 H Creatinine 0.75 Estim Creat Clear Calc 57 Estimated GFR > 60 Glucose 127 H Calcium 8.8
[2025-03-10] MEDS: FLUTICASONE/SALMETEROL 45-21 MCG INHALER 1 PUFF 2 PUFF INHALATION (08:00)
[2025-03-10] MEDS: DOCUSATE SODIUM 100 MG CAPSULE PO ×2 (08:22→20:33)
[2025-03-10] MEDS: SENNA/DOCUSATE SODIUM TABLET 1 TAB PO ×2 (08:22→17:03)
[2025-03-10] MEDS: CHOLECALCIFEROL (VITAMIN D3) 25 MCG (1,000 UNITS) TABLET PO (08:23)
[2025-03-10] MEDS: GABAPENTIN 300 MG CAPSULE PO ×2 (08:23→20:33)
[2025-03-10] MEDS: CHOLECALCIFEROL (VITAMIN D3) 125 MCG (5,000 UNITS) TABLET 250 MCG PO (08:23)
[2025-03-10] MEDS: PANTOPRAZOLE 40 MG TABLET PO (08:23)
[2025-03-10] MEDS: SIMVASTATIN 20 MG TABLET 40 MG PO (08:23)
[2025-03-10] MEDS: CALCIUM CARBONATE (OSCAL) 500 MG TABLET PO (12:01)
[2025-03-10] MEDS: MULTIVITAMINS THERAPEUTIC TAB (*BKC) 1 TABLET PO (12:01)
--- NOTE | 2025-03-10 12:23 | P.PNIM_ITS ---
Progress Note: A&P Assessment and Plan (1) Back pain: Qualifiers: Back pain laterality: bilateral Back pain location: low back pain Chronicity: acute Sciatica laterality: sciatica of right side Sciatica presence: with sciatica Qualified Code(s): M54.41 - Lumbago with sciatica, right side Code(s): M54.9 - Dorsalgia, unspecified Status: Acute Assessment and Plan: s/p L5-S1 posterior lumbar interbody fusion and L3-4 hemilaminectomy 01/10/[address] Silvestre. Initially complicated by post-operative pain. Plain films demonstrated good position of the hardware and interbody devices with the exception of the left srinath which seems to not be seated in the left S1 screw head per patient's neurosurgeon. CT was completed on 03/01 (see impression below) as follow-up on this imaging. Patient has also developed new difficulty urinating for the past week, historically has had urinary incontinence for years. - CT lumbar spine, 03/01: 1. Severe lower lumbar spondylosis status post interval L5 laminectomy and combined instrumented L5-S1 anterior and posterior spinal fusion. Of note there appears to be a subacute to early chronic still discernible nondisplaced coron ally oriented fracture extends across the anterior base of the right L5 pedicle. 2. Although significantly more limited on CT than with MRI particularly in the presence of streak artifact related to the metallic instrumentation, there appears to be increased soft tissue density at the laminectomy bed with suggestion of moderate residual central canal stenosis at this level. Would consider further evaluation with MRI as clinically indicated. 3. Interval instrumented left sacroiliac arthrodesis. - bladder scan with PVR 0 in ED - neurosurgery consulted - MR lumbar spine - analgesics - continue home gabapentin. Start PRN Percocet, Morphine for breakthrough. Trial tizanidine. Patient reports she is no longer on steroids. - PT/OT once NSG clears neurosurgery notes reviewed: Wound Exploration For Hematoma with Dillon Mack today 03/09- neurosurgery didnot round today yet- pt is in pain and lt leg is numb- but nit much worse than it was 03/10 neurosurgey is aware of pain. Doppler is ordered. will consider CT for re eval as numbness is worse and pain (2) Peripheral edema: Code(s): R60.0 - Localized edema Status: Acute Assessment and Plan: Reporting new, significant BLE edema. BNP WNL for age and CXR did not demonstrate any pulmonary edema. S/p lumbar surgery in December of 2024. Possible complications noted on imaging, see above. - neli wraps as tolerated, may d/c at night to sleep - BNP and CXR not indicative of CHF - BLE VD negative for DVT - complication to lumbar surgery/immobility? - mobilize as able. Elevate lower extremities. (3) Urinary tract infection: Code(s): N39.0 - Urinary tract infection, site not specified Status: Acute Assessment and Plan: - UA with positive nitrates, 1+ LE, 6-10 WBC - patient reports urinary hesitancy - previous culture with pansensitive Klebsiella - start IV Rocephin, await urine culture continue rocephin will downgrade to PO in the next few days (4) Hypertension: Qualifiers: Hypertension type: primary hypertension Qualified Code(s): I10 - Essential (primary) hypertension Code(s): I10 - Essential (primary) hypertension Status: Chronic Assessment and Plan: - chronic, currently 126/71 - continue home medications: HCTZ, lisinopril - monitor (5) Anemia: Code(s): D64.9 - Anemia, unspecified Status: Acute Assessment and Plan: - Hgb 11.7 7/3. 9.5 on admission, trended down to 8.6 - may have component of hemodilution as patient was on fluids overnight - denied signs of bleeding - check iron studies, occult stool - monitor CBC. Transfuse Hgb <7. daily labs ordered Plan DVT Prophylaxis: lovenox SQ Code Status: full code Time Spent With Patient Time with patient: Greater than 35 minutes Subjective Date/time seen: 03/10/25 12:23 Interval history: complains of left leg pain and cramping, she feels as if her leg is . Neurosurgery is aware. Will repeat Doppler to ensure no DVT. NOted drop in hg as well. No blood in urine/stool (no bm yet) Review of Systems Review of Systems: lt leg numbness and pain All systems reviewed & are unremarkable except as noted in HPI and below Exam Narrative: General: appears uncomfortable but reports in pain. drain is in place Eyes: EOMI ENT: neck supple Cardiovascular: Regular rate and rhythm Respiratory: Clear to auscultation, respirations even and unlabored on RA Gastrointestinal: Soft, non tender Genitourinary: no suprapubic tenderness Musculoskeletal: No edema Skin: warm, dry Neuro: Alert. Psych: Mood appropriate Const: General: comfortable, no acute distress and uncomfortable Other: , female, nontoxic appearance HENMT: Face/Nose/Sinus: Normal nares present Mouth: Yes moist mucous membranes Eyes: General: appearance normal, both eyes and all related structures Sclera: sclerae normal Pupils: Equal, round and reactive pupils present EOM: EOMs intact bilaterally Resp: Effort & Inspection: normal respiratory effort Auscultation: clear to auscultation bilaterally Cardio: Rate: regular rate Rhythm: regular rhythm Other: S1-S2 present without murmur, rub, ectopy GI: Other: Abdomen soft, nondistended, nontender. Normoactive bowel sounds in all quadrants. Skin: General skin exam: normal color and no rashes or lesions noted Wounds: no wounds Neuro: Cranial nerves: Yes Equal, round and reactive pupils present Speech: normal speech Motor exam (neuro): 5/5 motor strength present throughout Sensory Exam: normal sensation Other: No numbness or tingling, pain with movement in her lower back that radiates down her bilateral lower extremities. Extrem: Other: 1-2+ pitting edema, symmetric, and legs very tight/firm. Psych: Mental Status: mental status grossly normal Affect: Anxious affect present Other: good insight and judgement, pleasant. Objective Data Vital Signs Vital Signs: Vital Signs - 24 hr 03/09/25 16:51 03/09/25 20:00 03/09/25 20:52 Temperature 97.4 F L 99.1 F Pulse Rate 95 100 100 Respiratory Rate 18 18 18 Blood Pressure 100/60 101/57 L Pulse Oximetry 92 95 95 Oxygen Delivery Room Air 03/10/25 05:41 03/10/25 08:01 03/10/25 08:02 Temperature 98.1 F Pulse Rate 86 85 Respiratory Rate 20 20 Blood Pressure 122/63 Pulse Oximetry 99 99 Oxygen Delivery Room Air 03/10/25 08:20 03/10/25 08:24 Temperature Pulse Rate 83 Respiratory Rate Blood Pressure 109/57 L Pulse Oximetry Oxygen Delivery Room Air Intake/Output Intake/Output: Intake & Output 03/07/25 03/08/25 03/09/25 03/10/25 23:59 23:59 23:59 23:59 Intake Total 2360 350 2260 880 Output Total 900 1325 1600 900 Balance 1460 975 660 -20 Meds/Results Medications: Active Medications Generic Name Dose Route Start Last Admin Trade Name Freq PRN Reason Stop Dose Admin Acetaminophen 1,000 mg 03/06/25 17:01 Acetaminophen 500 Mg Tablet PO Q6H PRN Pain Rated 1-3 Al Hydrox/Mg Hydrox/Simethicone 20 ml 03/08/25 17:12 Mag Hydrox/Al Hydrox/Simeth 30 Ml Udc PO Q4H PRN Indigestion/Heartburn Albuterol 1 puff 03/06/25 21:53 Albuterol Sulfate (*Sp) Aerosol 1 Puff INHALATION Q4-6H PRN Wheezing Bisacodyl 10 mg 03/08/25 17:12 Bisacodyl 10 Mg Suppository RECTAL DAILY PRN Constipation Calcium Carbonate 500 mg 03/07/25 12:00 03/10/25 12:01 Calcium Carbonate (Oscal) 500 Mg Tablet PO 500 mg DAILY@1200 [facility] Administration Docusate Sodium 100 mg 03/06/25 17:06 Docusate Sodium 100 Mg Capsule PO Q12H PRN Constipation Docusate Sodium 100 mg 03/08/25 21:00 03/10/25 08:22 Docusate Sodium 100 Mg Capsule PO 100 mg Q12HR LANG Administration Gabapentin 300 mg 03/06/25 21:40 03/10/25 08:23 Gabapentin 300 Mg Capsule PO 300 mg Q12HR LANG Administration Hydrochlorothiazide 12.5 mg 03/07/25 09:00 03/10/25 08:23 Hydrochlorothiazide 12.5 Mg Capsule PO 12.5 mg DAILY LANG Administration Hydromorphone HCl 0.5 mg 03/08/25 17:12 03/10/25 07:00 Hydromorphone Hcl Inj (*Crx) 1 Mg/Ml Syr IV PUSH 0.5 mg Q2H PRN Administration Pain Rated 7-10 Hydroxyzine HCl 25 mg 03/06/25 21:38 03/07/25 08:18 Hydroxyzine Hcl 25 Mg Tablet PO 25 mg QID PRN Administration Anxiety Ceftriaxone Sodium 1 gm/ 50 mls @ 100 mls/hr 03/07/25 14:00 03/09/25 14:41 Sodium Chloride IVPB Infused Q24H LANG Infusion Levothyroxine Sodium 50 mcg 03/07/25 06:30 03/10/25 05:45 Levothyroxine Sodium 50 Mcg Tablet PO 50 mcg DAILY@0630 LANG Administration Lisinopril 10 mg 03/07/25 09:00 03/10/25 08:23 Lisinopril 10 Mg Tablet PO 10 mg DAILY LANG Administration Loratadine 10 mg 03/06/25 21:44 Loratadine 10 Mg Tablet PO DAILY PRN Congestion Meclizine HCl 25 mg 03/06/25 21:38 Meclizine Hcl 25 Mg Tablet PO TID PRN Dizziness Or Vertigo Methocarbamol 750 mg 03/09/25 15:48 03/10/25 04:56 Methocarbamol 750 Mg Tablet PO 750 mg Q8H PRN Administration muscle spasms Multivitamins Therapeutic 1 tablet 03/07/25 12:00 03/10/25 12:01 Multivitamins Therapeutic Tab (*Bkc) PO 1 tablet DAILY@1200 LANG Administration Ondansetron HCl 4 mg 03/06/25 17:01 Ondansetron Hcl Odt 4 Mg Tablet PO Q6H PRN Nausea And Vomiting Ondansetron HCl 4 mg 03/08/25 17:12 Ondansetron Inj 4 Mg/2 Ml Vial IV PUSH Q8H PRN Nausea And Vomiting Oxycodone/Acetaminophen 1 tab 03/07/25 10:39 03/10/25 04:56 Oxycodone/Acetaminophen (*Crx) 10-325 Mg Tablet PO 1 tab Q4H PRN Administration Pain Rated 7-10 Oxycodone/Acetaminophen 1 tablet 03/08/25 17:12 Oxycodone/Acetaminophen (*Crx) 5-325 Mg Tablet PO Q4H PRN Mild Pain (1-3) Oxycodone/Acetaminophen 1 tab 03/08/25 17:12 03/08/25 22:52 Oxycodone/Acetaminophen (*Crx) 10-325 Mg Tablet PO 1 tab Q4H PRN Administration Moderate Pain (4-6) Pantoprazole Sodium 40 mg 03/07/25 09:00 03/10/25 08:23 Pantoprazole 40 Mg Tablet PO 40 mg QAM LANG Administration Polyethylene Glycol 17 gm 03/06/25 17:06 Polyethylene Glycol 3350 17 Gm Powd.Pack PO QAM PRN Constipation Fluticasone/Salmeterol 2 puff 03/07/25 08:00 03/10/25 08:00 Fluticasone/Salmeterol 45-21 Mcg Inhaler 1 Puff INHALATION 2 puff DAILYRT LANG Administration Senna/Docusate Sodium 1 tab 03/08/25 17:12 Senna/Docusate Sodium Tablet PO HS PRN Constipation Senna/Docusate Sodium 1 tab 03/09/25 17:00 03/10/25 08:22 Senna/Docusate Sodium Tablet PO 1 tab BID LANG Administration Simvastatin 40 mg 03/07/25 09:00 03/10/25 08:23 Simvastatin 20 Mg Tablet PO 40 mg DAILY LANG Administration Vitamin D 25 mcg 03/07/25 09:00 03/10/25 08:23 Cholecalciferol (Vitamin D3) 25 Mcg (1,000 Units) Tablet PO 25 mcg DAILY LANG Administration Vitamin D 250 mcg 03/07/25 09:00 03/10/25 08:23 Cholecalciferol (Vitamin D3) 125 Mcg (5,000 Units) Tablet PO 250 mcg DAILY LANG Administration Radiology Results: ITS Impressions Chest X-Ray 03/06/25 16:17 IMPRESSION: 1: NO ACUTE CARDIOPULMONARY DISEASE. Lumbar Spine MRI 03/07/25 14:47 IMPRESSION: 1. Status post L5 laminectomy with instrumented anterior and posterior L5-S1 spinal fusion. There is a 3.5 x 3.2 x 3.2 similar loculated fluid collection at the laminectomy bed most likely postoperative hematoma/seroma although differential would include abscess in the appropriate clinical setting. This exerts some mass effect upon the posterior margin of the thecal sac which along with some residual extruded disc material centrally at the L5-S1 disc space contributes to moderate central canal stenosis. 2. Moderate to severe spondylosis at L4-L5 and mild spondylosis and more cephalad lumbar spine with additional postoperative change of recent left L3-L4 hemilaminotomy. 3. Study limited by absence of axial and postcontrast imaging with study terminated prematurely due to patient discomfort. Venous Doppler Study 03/10/25 09:45 IMPRESSION: 1: No left lower extremity deep venous thrombosis. Labs Labs: Laboratory Results - last 24 hr 03/10/25 05:11 WBC 7.0 RBC 2.70 L Hgb 7.8 L Hct 25.4 L MCV 94.1 MCH 28.9 MCHC 30.7 L RDW 14.6 H Plt Count 233 MPV 11.0 H Sodium 134 L Potassium 4.6 Chloride 101 Carbon Dioxide 27 Anion Gap 6 BUN 18 H Creatinine 0.75 Estim Creat Clear Calc 57 Estimated GFR > 60 Glucose 127 H Calcium 8.8 Quality VTE Prophylaxis VTE prophylaxis: pharmacologic ordered
[2025-03-10] MEDS: cefTRIAXone 1 GM in SODIUM CHLORIDE 0.9% IV 50 ML 100 ML IVPB (13:48)
--- NOTE | 2025-03-10 18:04 | PC.NURSE ---
On 03/10/25, the RN, Vilma Trotter, provided care and completed [facility] documentation on this patient. I have reviewed the RN's documentation and agree with the findings.
[2025-03-11] MEDS: oxyCODONE/ACETAMINOPHEN (*CRX) 10-325 MG TABLET 1 TAB PO ×4 (00:05→15:24)
[2025-03-11] MEDS: HYDROmorphone HCL INJ (*CRX) 1 MG/ML SYR 0.5 MG IV PUSH ×3 (00:51→18:53)
[2025-03-11 05:03] LABS: Hematocrit 24.3 % (37.0-47.0); Hemoglobin 7.5 g/dL (12.0-15.0); Mean Corpuscular HGB Conc 30.9 g/dl (32-36); Mean Corpuscular Hemoglobin 29.1 pg (26-34); Mean Corpuscular Volume 94.2 fl (80-100); Platelet Count Result 230 k/mm3 (150-375); Red Blood Count 2.58 M/mm3 (4.2-5.4); White Blood Count 6.3 K/mm3 (4.5-10.0)
[2025-03-11 05:19] LABS: Anion Gap 5 mmol/L (4-12); Blood Urea Nitrogen 15 mg/dL (7-17); Calcium 8.6 mg/dL (8.4-10.2); Carbon Dioxide 28 mmol/L (22-30); Chloride 103 mmol/L (98-107); Estimated CRCL calculation 63 ml/min; Estimated Glomerular Filt Rate > 60; Glucose 89 mg/dL (65-110); Potassium 4.2 mmol/L (3.4-5.0); Sodium 136 mmol/L (137-145)
[2025-03-11] MEDS: LEVOTHYROXINE SODIUM 50 MCG TABLET PO (05:29)
[2025-03-11] MEDS: SENNA/DOCUSATE SODIUM TABLET 1 TAB PO ×3 (05:35→17:10)
[2025-03-11 06:00] VITALS: BP 101/44; PULSE 86; RESP 16; TEMP 36.7; O2SAT 98
[2025-03-11 07:58] VITALS: O2SAT 97
[2025-03-11] MEDS: FLUTICASONE/SALMETEROL 45-21 MCG INHALER 1 PUFF 2 PUFF INHALATION (07:58)
[2025-03-11] MEDS: GABAPENTIN 300 MG CAPSULE PO ×2 (09:37→20:55)
[2025-03-11] MEDS: DOCUSATE SODIUM 100 MG CAPSULE PO ×2 (09:37→20:56)
[2025-03-11] MEDS: SIMVASTATIN 20 MG TABLET 40 MG PO (09:38)
[2025-03-11] MEDS: CHOLECALCIFEROL (VITAMIN D3) 125 MCG (5,000 UNITS) TABLET 250 MCG PO (09:38)
[2025-03-11] MEDS: CHOLECALCIFEROL (VITAMIN D3) 25 MCG (1,000 UNITS) TABLET PO (09:38)
[2025-03-11] MEDS: PANTOPRAZOLE 40 MG TABLET PO (09:40)
[2025-03-11 09:47] VITALS: BP 109/62
--- NOTE | 2025-03-11 12:38 | P.PNIM_ITS ---
Progress Note: A&P Assessment and Plan (1) Back pain: Qualifiers: Back pain laterality: bilateral Back pain location: low back pain Chronicity: acute Sciatica laterality: sciatica of right side Sciatica presence: with sciatica Qualified Code(s): M54.41 - Lumbago with sciatica, right side Code(s): M54.9 - Dorsalgia, unspecified Status: Acute Assessment and Plan: s/p L5-S1 posterior lumbar interbody fusion and L3-4 hemilaminectomy 01/10/[address] Silvestre. Initially complicated by post-operative pain. Plain films demonstrated good position of the hardware and interbody devices with the exception of the left srinath which seems to not be seated in the left S1 screw head per patient's neurosurgeon. CT was completed on 03/01 (see impression below) as follow-up on this imaging. Patient has also developed new difficulty urinating for the past week, historically has had urinary incontinence for years. - CT lumbar spine, 03/01: 1. Severe lower lumbar spondylosis status post interval L5 laminectomy and combined instrumented L5-S1 anterior and posterior spinal fusion. Of note there appears to be a subacute to early chronic still discernible nondisplaced coron ally oriented fracture extends across the anterior base of the right L5 pedicle. 2. Although significantly more limited on CT than with MRI particularly in the presence of streak artifact related to the metallic instrumentation, there appears to be increased soft tissue density at the laminectomy bed with suggestion of moderate residual central canal stenosis at this level. Would consider further evaluation with MRI as clinically indicated. 3. Interval instrumented left sacroiliac arthrodesis. - bladder scan with PVR 0 in ED - neurosurgery consulted - MR lumbar spine - analgesics - continue home gabapentin. Start PRN Percocet, Morphine for breakthrough. Trial tizanidine. Patient reports she is no longer on steroids. - PT/OT once NSG clears neurosurgery notes reviewed: Wound Exploration For Hematoma with Dillon Mack today 03/09- neurosurgery didnot round today yet- pt is in pain and lt leg is numb- but nit much worse than it was 03/10 neurosurgey is aware of pain. Doppler is ordered. will consider CT for re eval as numbness is worse and pain 03/11 lt leg is still a bit swollen but pulses present, skin is warm. encouraged to ambulate, work with pt/ot and continue with pain control CT was repeated on 03/10: IMPRESSION: 1. Again seen are changes of combined instrumented L5-S1 anterior and posterior spinal fusion with revision of the connection between the vertical srinath and the left S1 pedicle screw, placement of new bone graft material bilaterally and decompression with surgical drain placement at a postoperative hematoma/seroma at the laminectomy bed. 2. Redemonstration of nondisplaced fracture across the base of the right pedicle of L5 with some lucency along the cephalad margin of the right L5 pedicle screw at the level of the vertebral body. 3. Unchanged instrumented left sacroiliac arthrodesis. (2) Peripheral edema: Code(s): R60.0 - Localized edema Status: Acute Assessment and Plan: Reporting new, significant BLE edema. BNP WNL for age and CXR did not demonstrate any pulmonary edema. S/p lumbar surgery in December of 2024. Possible complications noted on imaging, see above. - neli wraps as tolerated, may d/c at night to sleep - BNP and CXR not indicative of CHF - BLE VD negative for DVT - complication to lumbar surgery/immobility? - mobilize as able. Elevate lower extremities. (3) Urinary tract infection: Code(s): N39.0 - Urinary tract infection, site not specified Status: Acute Assessment and Plan: - UA with positive nitrates, 1+ LE, 6-10 WBC - patient reports urinary hesitancy - previous culture with pansensitive Klebsiella - start IV Rocephin, await urine culture continue rocephin will downgrade to PO in the next few days (4) Hypertension: Qualifiers: Hypertension type: primary hypertension Qualified Code(s): I10 - Essential (primary) hypertension Code(s): I10 - Essential (primary) hypertension Status: Chronic Assessment and Plan: - chronic, currently 126/71 - continue home medications: HCTZ, lisinopril - monitor (5) Anemia: Code(s): D64.9 - Anemia, unspecified Status: Acute Assessment and Plan: - Hgb 11.7 7/3. 9.5 on admission, trended down to 8.6 - may have component of hemodilution as patient was on fluids overnight - denied signs of bleeding - check iron studies, occult stool - monitor CBC. Transfuse Hgb <7. daily labs ordered unable to collect stool but reported no blood noted iron panel ordered no c/o dizziness, lightheadedness monitor closely Plan DVT Prophylaxis: lovenox SQ Code Status: full code Time Spent With Patient Time with patient: Greater than 35 minutes Subjective Date/time seen: 03/11/25 12:38 Interval history: Pt is seen and examined. She is up in a chair, calm and talkative. Still complains of pain but hesitant to take pain meds. Neurosurgery is aware. Doppler was negative, ct repeated- no acute issues. Noted drop in hg as well. No blood in urine/stool- had BM but specimen was not collected. Pt denies any dizziness or lightheadedness. Review of Systems Review of Systems: lt leg numbness and pain All systems reviewed & are unremarkable except as noted in HPI and below Exam Narrative: General: appears uncomfortable but reports in pain. drain is in place Eyes: EOMI ENT: neck supple Cardiovascular: Regular rate and rhythm Respiratory: Clear to auscultation, respirations even and unlabored on RA Gastrointestinal: Soft, non tender Genitourinary: no suprapubic tenderness Musculoskeletal: No edema Skin: warm, dry Neuro: Alert. Psych: Mood appropriate Const: General: comfortable, no acute distress and uncomfortable Other: , female, nontoxic appearance HENMT: Face/Nose/Sinus: Normal nares present Mouth: Yes moist mucous membranes Eyes: General: appearance normal, both eyes and all related structures Sclera: sclerae normal Pupils: Equal, round and reactive pupils present EOM: EOMs intact bilaterally Resp: Effort & Inspection: normal respiratory effort Auscultation: clear to auscultation bilaterally Cardio: Rate: regular rate Rhythm: regular rhythm Other: S1-S2 present without murmur, rub, ectopy GI: Other: Abdomen soft, nondistended, nontender. Normoactive bowel sounds in all quadrants. Skin: General skin exam: normal color and no rashes or lesions noted Wounds: no wounds Neuro: Cranial nerves: Yes Equal, round and reactive pupils present Speech: normal speech Motor exam (neuro): 5/5 motor strength present throughout Sensory Exam: normal sensation Other: No numbness or tingling, pain with movement in her lower back that radiates down her bilateral lower extremities. Extrem: Other: 1-2+ pitting edema, symmetric, and legs very tight/firm. Psych: Mental Status: mental status grossly normal Affect: Anxious affect present Other: good insight and judgement, pleasant. Objective Data Vital Signs Vital Signs: Vital Signs - 24 hr 03/10/25 14:18 03/10/25 20:00 03/10/25 21:14 Temperature 97.9 F 96.9 F L Pulse Rate 92 93 93 Respiratory Rate 16 16 16 Blood Pressure 101/58 L 113/63 Pulse Oximetry 99 98 98 Oxygen Delivery Room Air 03/11/25 06:00 03/11/25 07:58 03/11/25 09:47 Temperature 98.0 F Pulse Rate 86 Respiratory Rate 16 Blood Pressure 101/44 L 109/62 Pulse Oximetry 98 97 Oxygen Delivery Room Air Intake/Output Intake/Output: Intake & Output 03/08/25 03/09/25 03/10/25 03/11/25 23:59 23:59 23:59 23:59 Intake Total 350 2260 1690 740 Output Total 1325 1600 1450 1100 Balance -975 660 240 -360 Meds/Results Medications: Active Medications Generic Name Dose Route Start Last Admin Trade Name Freq PRN Reason Stop Dose Admin Acetaminophen 1,000 mg 03/06/25 17:01 Acetaminophen 500 Mg Tablet PO Q6H PRN Pain Rated 1-3 Al Hydrox/Mg Hydrox/Simethicone 20 ml 03/08/25 17:12 Mag Hydrox/Al Hydrox/Simeth 30 Ml Udc PO Q4H PRN Indigestion/Heartburn Albuterol 1 puff 03/06/25 21:53 Albuterol Sulfate (*Sp) Aerosol 1 Puff INHALATION Q4-6H PRN Wheezing Bisacodyl 10 mg 03/08/25 17:12 Bisacodyl 10 Mg Suppository RECTAL DAILY PRN Constipation Calcium Carbonate 500 mg 03/07/25 12:00 03/10/25 12:01 Calcium Carbonate (Oscal) 500 Mg Tablet PO 500 mg DAILY@1200 [facility] Administration Docusate Sodium 100 mg 03/06/25 17:06 Docusate Sodium 100 Mg Capsule PO Q12H PRN Constipation Docusate Sodium 100 mg 03/08/25 21:00 03/11/25 09:37 Docusate Sodium 100 Mg Capsule PO 100 mg Q12HR [facility]ANG Administration Gabapentin 300 mg 03/06/25 21:40 03/11/25 09:37 Gabapentin 300 Mg Capsule PO 300 mg Q12HR [facility]ANG Administration Hydrochlorothiazide 12.5 mg 03/07/25 09:00 03/11/25 09:37 Hydrochlorothiazide 12.5 Mg Capsule PO 12.5 mg DAILY [facility] Administration Hydromorphone HCl 0.5 mg 03/08/25 17:12 03/11/25 09:50 Hydromorphone Hcl Inj (*Crx) 1 Mg/Ml Syr IV PUSH 0.5 mg Q2H PRN Administration Pain Rated 7-10 Hydroxyzine HCl 25 mg 03/06/25 21:38 03/07/25 08:18 Hydroxyzine Hcl 25 Mg Tablet PO 25 mg QID PRN Administration Anxiety Ceftriaxone Sodium 1 gm/ 50 mls @ 100 mls/hr 03/07/25 14:00 03/10/25 13:48 Sodium Chloride IVPB 100 mls/hr Q24H [facility] Administration Levothyroxine Sodium 50 mcg 03/07/25 06:30 03/11/25 05:29 Levothyroxine Sodium 50 Mcg Tablet PO 50 mcg DAILY@0630 [facility] Administration Lidocaine 1 patch 03/11/25 09:00 03/11/25 09:39 Lidocaine 5% Patch TRANSDERM Not Given DAILY [facility] Lisinopril 10 mg 03/07/25 09:00 03/11/25 09:37 Lisinopril 10 Mg Tablet PO 10 mg DAILY [facility] Administration Loratadine 10 mg 03/06/25 21:44 Loratadine 10 Mg Tablet PO DAILY PRN Congestion Meclizine HCl 25 mg 03/06/25 21:38 Meclizine Hcl 25 Mg Tablet PO TID PRN Dizziness Or Vertigo Methocarbamol 750 mg 03/09/25 15:48 03/11/25 05:29 Methocarbamol 750 Mg Tablet PO 750 mg Q8H PRN Administration muscle spasms Multivitamins Therapeutic 1 tablet 03/07/25 12:00 03/10/25 12:01 Multivitamins Therapeutic Tab (*Bkc) PO 1 tablet DAILY@1200 [facility] Administration Ondansetron HCl 4 mg 03/06/25 17:01 Ondansetron Hcl Odt 4 Mg Tablet PO Q6H PRN Nausea And Vomiting Ondansetron HCl 4 mg 03/08/25 17:12 Ondansetron Inj 4 Mg/2 Ml Vial IV PUSH Q8H PRN Nausea And Vomiting Oxycodone/Acetaminophen 1 tab 03/07/25 10:39 03/11/25 10:50 Oxycodone/Acetaminophen (*Crx) 10-325 Mg Tablet PO 1 tab Q4H PRN Administration Pain Rated 7-10 Oxycodone/Acetaminophen 1 tablet 03/08/25 17:12 Oxycodone/Acetaminophen (*Crx) 5-325 Mg Tablet PO Q4H PRN Mild Pain (1-3) Oxycodone/Acetaminophen 1 tab 03/08/25 17:12 03/08/25 22:52 Oxycodone/Acetaminophen (*Crx) 10-325 Mg Tablet PO 1 tab Q4H PRN Administration Moderate Pain (4-6) Pantoprazole Sodium 40 mg 03/07/25 09:00 03/11/25 09:40 Pantoprazole 40 Mg Tablet PO 40 mg QAM [facility] Administration Polyethylene Glycol 17 gm 03/06/25 17:06 Polyethylene Glycol 3350 17 Gm Powd.Pack PO QAM PRN Constipation Fluticasone/Salmeterol 2 puff 03/07/25 08:00 03/11/25 07:58 Fluticasone/Salmeterol 45-21 Mcg Inhaler 1 Puff INHALATION 2 puff DAILYRT [facility] Administration Senna/Docusate Sodium 1 tab 03/08/25 17:12 03/11/25 05:35 Senna/Docusate Sodium Tablet PO 1 tab HS PRN Administration Constipation Senna/Docusate Sodium 1 tab 03/09/25 17:00 03/11/25 09:37 Senna/Docusate Sodium Tablet PO 1 tab BID [facility] Administration Simvastatin 40 mg 03/07/25 09:00 03/11/25 09:38 Simvastatin 20 Mg Tablet PO 40 mg DAILY [facility] Administration Vitamin D 25 mcg 03/07/25 09:00 03/11/25 09:38 Cholecalciferol (Vitamin D3) 25 Mcg (1,000 Units) Tablet PO 25 mcg DAILY [facility] Administration Vitamin D 250 mcg 03/07/25 09:00 03/11/25 09:38 Cholecalciferol (Vitamin D3) 125 Mcg (5,000 Units) Tablet PO 250 mcg DAILY [facility] Administration Radiology Results: ITS Impressions Chest X-Ray 03/06/25 16:17 IMPRESSION: 1: NO ACUTE CARDIOPULMONARY DISEASE. Lumbar Spine MRI 03/07/25 14:47 IMPRESSION: 1. Status post L5 laminectomy with instrumented anterior and posterior L5-S1 spinal fusion. There is a 3.5 x 3.2 x 3.2 similar loculated fluid collection at the laminectomy bed most likely postoperative hematoma/seroma although differential would include abscess in the appropriate clinical setting. This exerts some mass effect upon the posterior margin of the thecal sac which along with some residual extruded disc material centrally at the L5-S1 disc space contributes to moderate central canal stenosis. 2. Moderate to severe spondylosis at L4-L5 and mild spondylosis and more cephalad lumbar spine with additional postoperative change of recent left L3-L4 hemilaminotomy. 3. Study limited by absence of axial and postcontrast imaging with study terminated prematurely due to patient discomfort. Venous Doppler Study 03/10/25 09:45 IMPRESSION: 1: No left lower extremity deep venous thrombosis. Lumbar Spine CT 03/10/25 15:39 IMPRESSION: 1. Again seen are changes of combined instrumented L5-S1 anterior and posterior spinal fusion with revision of the connection between the vertical srinath and the left S1 pedicle screw, placement of new bone graft material bilaterally and decompression with surgical drain placement at a postoperative hematoma/seroma at the laminectomy bed. 2. Redemonstration of nondisplaced fracture across the base of the right pedicle of L5 with some lucency along the cephalad margin of the right L5 pedicle screw at the level of the vertebral body. 3. Unchanged instrumented left sacroiliac arthrodesis. Labs Labs: Laboratory Results - last 24 hr 03/11/25 04:33 WBC 6.3 RBC 2.58 L Hgb 7.5 L Hct 24.3 L MCV 94.2 MCH 29.1 MCHC 30.9 L RDW 14.8 H Plt Count 230 MPV 10.8 H Sodium 136 L Potassium 4.2 Chloride 103 Carbon Dioxide 28 Anion Gap 5 BUN 15 Creatinine 0.68 L Estim Creat Clear Calc 63 Estimated GFR > 60 Glucose 89 Calcium 8.6 Quality VTE Prophylaxis VTE prophylaxis: pharmacologic ordered
[2025-03-11 13:25] VITALS: BP 138/71; PULSE 99; RESP 16; O2SAT 100
[2025-03-11] MEDS: MULTIVITAMINS THERAPEUTIC TAB (*BKC) 1 TABLET PO (13:46)
[2025-03-11] MEDS: CALCIUM CARBONATE (OSCAL) 500 MG TABLET PO (13:46)
[2025-03-11 13:57] LABS: Iron < 10 ug/dL (37-170)
[2025-03-11 14:06] LABS: Percent Iron Saturation 4 % (20-50)
--- NOTE | 2025-03-11 14:06 | PCOTNOTE ---
Attempted to see patient four times this date. First attempt, patient was eating breakfast. Second attempt, patient refused due to pain. Third attempt, patient was on the phone, waited 5 minutes in patient's view, however she continued to talk on the phone. Fourth attempt, patient was sitting edge of bed and reported already completing ADLs. Pt declined sitting up in chair at this time. Pt not seen for these reasons.
[2025-03-11] MEDS: cefTRIAXone 1 GM in SODIUM CHLORIDE 0.9% IV 50 ML 100 ML IVPB (15:07)
--- NOTE | 2025-03-11 17:01 | P.PNNEUSUR_ITS ---
Progress Note: A&P Assessment and Plan (1) Status post lumbar spinal arthrodesis: Code(s): Z98.1 - Arthrodesis status Status: Acute Assessment and Plan: Yaima did well from standpoint of the operation but has curious new L5 distribution symptoms that seems to be worsening. I did not note dorsiflexion weakness yesterday like I do today. She also has discomfort in her anterior mann which is associated with extreme tenderness but not pain to light touch. I removed her lumbar wound drain as it is no longer draining substantially. On Thursday, when the hospital is capable, we will obtain a new MRI of the lumbar spine to make sure there is no issue with left L5 nerve root. I do not expect to find it. She should continue with physical and occupational therapy. I will change her muscle relaxant today and we will give her another 10 mg of Decadron IV. Subjective Date/time seen: 03/11/25 17:01 Interval history: Yaima is postop day 3 status post revision posterior instrumentation and wound exploration for fluid collection. This surgery was successful in eliminating the discomfort she was having preoperatively, that is pain that is felt electrical in her back and lower extremities. However, she has developed a day 2 after that surgery, pain in her left lower extremity which seems to be worse today and also a feeling of her left foot feeling ?. ? She drags it when she walks, she says although she is ambulatory with physical and occupational therapy. She does not report any new bowel or bladder issues. She does not report any numbness. Exam Narrative: Strength is decreased in the left dorsiflexors compared right and she is not able to lift the left foot as far up that she can the right. Sensation was intact to light touch throughout the lower extremities Her wound is clean, dry and intact. Objective Data Vital Signs Vital Signs: Vital Signs - 24 hr 03/10/25 20:00 03/10/25 21:14 03/11/25 06:00 Temperature 96.9 F L 98.0 F Pulse Rate 93 93 86 Respiratory Rate 16 16 16 Blood Pressure 113/63 101/44 L Pulse Oximetry 98 98 98 Oxygen Delivery Room Air 03/11/25 07:58 03/11/25 08:00 03/11/25 09:47 Temperature Pulse Rate Respiratory Rate Blood Pressure 109/62 Pulse Oximetry 97 Oxygen Delivery Room Air Room Air 03/11/25 13:25 Temperature Pulse Rate 99 Respiratory Rate 16 Blood Pressure 138/71 Pulse Oximetry 100 Oxygen Delivery Intake/Output Intake/Output: Intake & Output 03/08/25 03/09/25 03/10/25 03/11/25 23:59 23:59 23:59 23:59 Intake Total 350 2260 1740 860 Output Total 1325 1600 1450 1100 Balance -975 660 290 -240 Meds/Results Medications: Active Medications Generic Name Dose Route Start Last Admin Trade Name Freq PRN Reason Stop Dose Admin Acetaminophen 1,000 mg 03/06/25 17:01 Acetaminophen 500 Mg Tablet PO Q6H PRN Pain Rated 1-3 Al Hydrox/Mg Hydrox/Simethicone 20 ml 03/08/25 17:12 Mag Hydrox/Al Hydrox/Simeth 30 Ml Udc PO Q4H PRN Indigestion/Heartburn Albuterol 1 puff 03/06/25 21:53 Albuterol Sulfate (*Sp) Aerosol 1 Puff INHALATION Q4-6H PRN Wheezing Bisacodyl 10 mg 03/08/25 17:12 Bisacodyl 10 Mg Suppository RECTAL DAILY PRN Constipation Calcium Carbonate 500 mg 03/07/25 12:00 03/11/25 13:46 Calcium Carbonate (Oscal) 500 Mg Tablet PO 500 mg DAILY@1200 [facility] Administration Docusate Sodium 100 mg 03/06/25 17:06 Docusate Sodium 100 Mg Capsule PO Q12H PRN Constipation Docusate Sodium 100 mg 03/08/25 21:00 03/11/25 09:37 Docusate Sodium 100 Mg Capsule PO 100 mg Q12HR [facility] Administration Gabapentin 300 mg 03/06/25 21:40 03/11/25 09:37 Gabapentin 300 Mg Capsule PO 300 mg Q12HR [facility] Administration Hydrochlorothiazide 12.5 mg 03/07/25 09:00 03/11/25 09:37 Hydrochlorothiazide 12.5 Mg Capsule PO 12.5 mg DAILY [facility] Administration Hydromorphone HCl 0.5 mg 03/08/25 17:12 03/11/25 09:50 Hydromorphone Hcl Inj (*Crx) 1 Mg/Ml Syr IV PUSH 0.5 mg Q2H PRN Administration Pain Rated 7-10 Hydroxyzine HCl 25 mg 03/06/25 21:38 03/07/25 08:18 Hydroxyzine Hcl 25 Mg Tablet PO 25 mg QID PRN Administration Anxiety Ceftriaxone Sodium 1 gm/ 50 mls @ 100 mls/hr 03/07/25 14:00 03/11/25 15:07 Sodium Chloride IVPB 100 mls/hr Q24H [facility] Administration Levothyroxine Sodium 50 mcg 03/07/25 06:30 03/11/25 05:29 Levothyroxine Sodium 50 Mcg Tablet PO 50 mcg DAILY@0630 [facility] Administration Lidocaine 1 patch 03/11/25 09:00 03/11/25 09:39 Lidocaine 5% Patch TRANSDERM Not Given DAILY [facility] Lisinopril 10 mg 03/07/25 09:00 03/11/25 09:37 Lisinopril 10 Mg Tablet PO 10 mg DAILY [facility] Administration Loratadine 10 mg 03/06/25 21:44 Loratadine 10 Mg Tablet PO DAILY PRN Congestion Meclizine HCl 25 mg 03/06/25 21:38 Meclizine Hcl 25 Mg Tablet PO TID PRN Dizziness Or Vertigo Methocarbamol 750 mg 03/09/25 15:48 03/11/25 15:24 Methocarbamol 750 Mg Tablet PO 750 mg Q8H PRN Administration muscle spasms Multivitamins Therapeutic 1 tablet 03/07/25 12:00 03/11/25 13:46 Multivitamins Therapeutic Tab (*Bkc) PO 1 tablet DAILY@1200 [facility] Administration Ondansetron HCl 4 mg 03/06/25 17:01 Ondansetron Hcl Odt 4 Mg Tablet PO Q6H PRN Nausea And Vomiting Ondansetron HCl 4 mg 03/08/25 17:12 Ondansetron Inj 4 Mg/2 Ml Vial IV PUSH Q8H PRN Nausea And Vomiting Oxycodone/Acetaminophen 1 tab 03/07/25 10:39 03/11/25 15:24 Oxycodone/Acetaminophen (*Crx) 10-325 Mg Tablet PO 1 tab Q4H PRN Administration Pain Rated 7-10 Oxycodone/Acetaminophen 1 tablet 03/08/25 17:12 Oxycodone/Acetaminophen (*Crx) 5-325 Mg Tablet PO Q4H PRN Mild Pain (1-3) Oxycodone/Acetaminophen 1 tab 03/08/25 17:12 03/08/25 22:52 Oxycodone/Acetaminophen (*Crx) 10-325 Mg Tablet PO 1 tab Q4H PRN Administration Moderate Pain (4-6) Pantoprazole Sodium 40 mg 03/07/25 09:00 03/11/25 09:40 Pantoprazole 40 Mg Tablet PO 40 mg QAM [facility]ANG Administration Polyethylene Glycol 17 gm 03/06/25 17:06 Polyethylene Glycol 3350 17 Gm Powd.Pack PO QAM PRN Constipation Fluticasone/Salmeterol 2 puff 03/07/25 08:00 03/11/25 07:58 Fluticasone/Salmeterol 45-21 Mcg Inhaler 1 Puff INHALATION 2 puff DAILYRT [facility]ANG Administration Senna/Docusate Sodium 1 tab 03/08/25 17:12 03/11/25 05:35 Senna/Docusate Sodium Tablet PO 1 tab HS PRN Administration Constipation Senna/Docusate Sodium 1 tab 03/09/25 17:00 03/11/25 09:37 Senna/Docusate Sodium Tablet PO 1 tab BID LANG Administration Simvastatin 40 mg 03/07/25 09:00 03/11/25 09:38 Simvastatin 20 Mg Tablet PO 40 mg DAILY [facility]ANG Administration Vitamin D 25 mcg 03/07/25 09:00 03/11/25 09:38 Cholecalciferol (Vitamin D3) 25 Mcg (1,000 Units) Tablet PO 25 mcg DAILY [facility] Administration Vitamin D 250 mcg 03/07/25 09:00 03/11/25 09:38 Cholecalciferol (Vitamin D3) 125 Mcg (5,000 Units) Tablet PO 250 mcg DAILY LANG Administration Radiology Results: ITS Impressions Chest X-Ray 03/06/25 16:17 IMPRESSION: 1: NO ACUTE CARDIOPULMONARY DISEASE. Lumbar Spine MRI 03/07/25 14:47 IMPRESSION: 1. Status post L5 laminectomy with instrumented anterior and posterior L5-S1 spinal fusion. There is a 3.5 x 3.2 x 3.2 similar loculated fluid collection at the laminectomy bed most likely postoperative hematoma/seroma although differential would include abscess in the appropriate clinical setting. This exerts some mass effect upon the posterior margin of the thecal sac which along with some residual extruded disc material centrally at the L5-S1 disc space contributes to moderate central canal stenosis. 2. Moderate to severe spondylosis at L4-L5 and mild spondylosis and more cephalad lumbar spine with additional postoperative change of recent left L3-L4 hemilaminotomy. 3. Study limited by absence of axial and postcontrast imaging with study terminated prematurely due to patient discomfort. Venous Doppler Study 03/10/25 09:45 IMPRESSION: 1: No left lower extremity deep venous thrombosis. Lumbar Spine CT 03/10/25 15:39 IMPRESSION: 1. Again seen are changes of combined instrumented L5-S1 anterior and posterior spinal fusion with revision of the connection between the vertical srinath and the left S1 pedicle screw, placement of new bone graft material bilaterally and decompression with surgical drain placement at a postoperative hematoma/seroma at the laminectomy bed. 2. Redemonstration of nondisplaced fracture across the base of the right pedicle of L5 with some lucency along the cephalad margin of the right L5 pedicle screw at the level of the vertebral body. 3. Unchanged instrumented left sacroiliac arthrodesis. Labs Labs: Laboratory Results - last 24 hr 03/11/25 04:33 WBC 6.3 RBC 2.58 L Hgb 7.5 L Hct 24.3 L MCV 94.2 MCH 29.1 MCHC 30.9 L RDW 14.8 H Plt Count 230 MPV 10.8 H Sodium 136 L Potassium 4.2 Chloride 103 Carbon Dioxide 28 Anion Gap 5 BUN 15 Creatinine 0.68 L Estim Creat Clear Calc 63 Estimated GFR > 60 Glucose 89 Calcium 8.6 Iron < 10 L TIBC 280 % Saturation 4 L
[2025-03-11] MEDS: dexAMETHasone SOD PHOS INJ 10 MG/ML 1 ML VIAL IV PUSH (18:28)
[2025-03-11] MEDS: ONDANSETRON HCL ODT 4 MG TABLET PO (18:31)
[2025-03-11 20:00] VITALS: PULSE 88; RESP 16; O2SAT 94
[2025-03-11] MEDS: diazePAM (*CRX) 5 MG TABLET PO (20:56)
[2025-03-11 21:08] VITALS: BP 137/80; PULSE 88; RESP 16; TEMP 36.2; O2SAT 94
[2025-03-12 05:18] LABS: Hematocrit 24.2 % (37.0-47.0); Hemoglobin 7.6 g/dL (12.0-15.0); Mean Corpuscular HGB Conc 31.4 g/dl (32-36); Mean Corpuscular Hemoglobin 29.2 pg (26-34); Mean Corpuscular Volume 93.1 fl (80-100); Platelet Count Result 245 k/mm3 (150-375); Red Blood Count 2.60 M/mm3 (4.2-5.4); White Blood Count 4.2 K/mm3 (4.5-10.0)
[2025-03-12] MEDS: LEVOTHYROXINE SODIUM 50 MCG TABLET PO (05:33)
[2025-03-12 05:36] LABS: Anion Gap 3 mmol/L (4-12); Blood Urea Nitrogen 15 mg/dL (7-17); Calcium 9.1 mg/dL (8.4-10.2); Carbon Dioxide 30 mmol/L (22-30); Chloride 100 mmol/L (98-107); Estimated CRCL calculation 56 ml/min; Estimated Glomerular Filt Rate > 60; Glucose 125 mg/dL (65-110); Potassium 4.4 mmol/L (3.4-5.0); Sodium 133 mmol/L (137-145)
[2025-03-12] MEDS: oxyCODONE/ACETAMINOPHEN (*CRX) 10-325 MG TABLET 1 TAB PO ×3 (05:37→21:52)
[2025-03-12 06:00] VITALS: BP 129/67; PULSE 90; RESP 16; TEMP 36.2; O2SAT 98
[2025-03-12] MEDS: HYDROmorphone HCL INJ (*CRX) 1 MG/ML SYR 0.5 MG IV PUSH ×2 (07:44→20:28)
[2025-03-12 07:51] VITALS: BP 117/68; PULSE 80; O2SAT 96
[2025-03-12] MEDS: SIMVASTATIN 20 MG TABLET 40 MG PO (08:00)
[2025-03-12] MEDS: GABAPENTIN 300 MG CAPSULE PO ×2 (08:00→20:28)
[2025-03-12] MEDS: CHOLECALCIFEROL (VITAMIN D3) 25 MCG (1,000 UNITS) TABLET PO (08:00)
[2025-03-12] MEDS: CHOLECALCIFEROL (VITAMIN D3) 125 MCG (5,000 UNITS) TABLET 250 MCG PO (08:00)
[2025-03-12] MEDS: PANTOPRAZOLE 40 MG TABLET PO (08:00)
[2025-03-12] MEDS: DOCUSATE SODIUM 100 MG CAPSULE PO ×2 (08:01→20:27)
[2025-03-12] MEDS: SENNA/DOCUSATE SODIUM TABLET 1 TAB PO ×2 (08:02→16:23)
[2025-03-12 10:04] VITALS: PULSE 93; PULSE 95; RESP 18; O2SAT 95
[2025-03-12] MEDS: FLUTICASONE/SALMETEROL 45-21 MCG INHALER 1 PUFF 2 PUFF INHALATION (10:04)
--- NOTE | 2025-03-12 12:37 | WPDNEUROSGPN ---
Progress Note: A&P Assessment and Plan (1) Status post lumbar spinal arthrodesis: Code(s): Z98.1 - Arthrodesis status Status: Acute Plan Yaima is having difficulty urinating. I will have postvoid residuals checked today. We will continue to order the MRI tomorrow of the lumbar spine. I do not expect to find any pathology of neural compressive nature but we will check. Subjective Date/time seen: 03/12/25 12:37 Interval history: Yaima is about the same today except she complains of more swelling in the left lower extremity. She still has pain and tenderness in the left anterolateral mann extending into the foot. Foot movement is about the same. Exam Narrative: Strength is decreased in the left dorsiflexors compared right and she is not able to lift the left foot as far up that she can the right. Sensation was intact to light touch throughout the lower extremities Her wound is clean, dry and intact. Objective Data Vital Signs Vital Signs: Vital Signs - 24 hr 03/11/25 13:25 03/11/25 20:00 03/11/25 21:08 Temperature 97.1 F L Pulse Rate 99 88 88 Respiratory Rate 16 16 16 Blood Pressure 138/71 137/80 Pulse Oximetry 100 94 94 Oxygen Delivery Room Air Fraction of Inspired Oxygen 03/12/25 06:00 03/12/25 07:51 03/12/25 10:04 Temperature 97.1 F L Pulse Rate 90 80 93 Respiratory Rate 16 18 Blood Pressure 129/67 117/68 Pulse Oximetry 98 96 95 Oxygen Delivery Room Air Fraction of Inspired Oxygen 21 03/12/25 10:04 Temperature Pulse Rate 95 Respiratory Rate 18 Blood Pressure Pulse Oximetry Oxygen Delivery Fraction of Inspired Oxygen Intake/Output Intake/Output: Intake & Output 03/09/25 03/10/25 03/11/25 03/12/25 23:59 23:59 23:59 23:59 Intake Total 2260 1740 1430 220 Output Total 1600 1450 1950 300 Balance 660 290 -520 -80 Meds/Results Medications: Active Medications Generic Name Dose Route Start Last Admin Trade Name Freq PRN Reason Stop Dose Admin Acetaminophen 1,000 mg 03/06/25 17:01 Acetaminophen 500 Mg Tablet PO Q6H PRN Pain Rated 1-3 Al Hydrox/Mg Hydrox/Simethicone 20 ml 03/08/25 17:12 Mag Hydrox/Al Hydrox/Simeth 30 Ml Udc PO Q4H PRN Indigestion/Heartburn Albuterol 1 puff 03/06/25 21:53 Albuterol Sulfate (*Sp) Aerosol 1 Puff INHALATION Q4-6H PRN Wheezing Bisacodyl 10 mg 03/08/25 17:12 Bisacodyl 10 Mg Suppository RECTAL DAILY PRN Constipation Calcium Carbonate 500 mg 03/07/25 12:00 03/11/25 13:46 Calcium Carbonate (Oscal) 500 Mg Tablet PO 500 mg DAILY@1200 [facility] Administration Diazepam 5 mg 03/11/25 17:10 03/11/25 20:56 Diazepam (*Crx) 5 Mg Tablet PO 5 mg TID PRN Administration Muscle Spasm Docusate Sodium 100 mg 03/06/25 17:06 Docusate Sodium 100 Mg Capsule PO Q12H PRN Constipation Docusate Sodium 100 mg 03/08/25 21:00 03/12/25 08:01 Docusate Sodium 100 Mg Capsule PO 100 mg Q12HR [facility]ANG Administration Gabapentin 300 mg 03/06/25 21:40 03/12/25 08:00 Gabapentin 300 Mg Capsule PO 300 mg Q12HR [facility] Administration Hydrochlorothiazide 12.5 mg 03/07/25 09:00 03/12/25 08:00 Hydrochlorothiazide 12.5 Mg Capsule PO 12.5 mg DAILY [facility] Administration Hydromorphone HCl 0.5 mg 03/08/25 17:12 03/12/25 07:44 Hydromorphone Hcl Inj (*Crx) 1 Mg/Ml Syr IV PUSH 0.5 mg Q2H PRN Administration Pain Rated 7-10 Hydroxyzine HCl 25 mg 03/06/25 21:38 03/11/25 20:56 Hydroxyzine Hcl 25 Mg Tablet PO 25 mg QID PRN Administration Anxiety Ceftriaxone Sodium 1 gm/ 50 mls @ 100 mls/hr 03/07/25 14:00 03/11/25 15:07 Sodium Chloride IVPB 100 mls/hr Q24H [facility] Administration Levothyroxine Sodium 50 mcg 03/07/25 06:30 03/12/25 05:33 Levothyroxine Sodium 50 Mcg Tablet PO 50 mcg DAILY@0630 [facility] Administration Lidocaine 1 patch 03/11/25 09:00 03/11/25 09:39 Lidocaine 5% Patch TRANSDERM Not Given DAILY [facility] Lisinopril 10 mg 03/07/25 09:00 03/12/25 08:00 Lisinopril 10 Mg Tablet PO 10 mg DAILY [facility] Administration Loratadine 10 mg 03/06/25 21:44 Loratadine 10 Mg Tablet PO DAILY PRN Congestion Meclizine HCl 25 mg 03/06/25 21:38 Meclizine Hcl 25 Mg Tablet PO TID PRN Dizziness Or Vertigo Multivitamins Therapeutic 1 tablet 03/07/25 12:00 03/11/25 13:46 Multivitamins Therapeutic Tab (*Bkc) PO 1 tablet DAILY@1200 [facility] Administration Ondansetron HCl 4 mg 03/06/25 17:01 03/11/25 18:31 Ondansetron Hcl Odt 4 Mg Tablet PO 4 mg Q6H PRN Administration Nausea And Vomiting Ondansetron HCl 4 mg 03/08/25 17:12 Ondansetron Inj 4 Mg/2 Ml Vial IV PUSH Q8H PRN Nausea And Vomiting Oxycodone/Acetaminophen 1 tab 03/07/25 10:39 03/12/25 05:37 Oxycodone/Acetaminophen (*Crx) 10-325 Mg Tablet PO 1 tab Q4H PRN Administration Pain Rated 7-10 Oxycodone/Acetaminophen 1 tablet 03/08/25 17:12 Oxycodone/Acetaminophen (*Crx) 5-325 Mg Tablet PO Q4H PRN Mild Pain (1-3) Oxycodone/Acetaminophen 1 tab 03/08/25 17:12 03/08/25 22:52 Oxycodone/Acetaminophen (*Crx) 10-325 Mg Tablet PO 1 tab Q4H PRN Administration Moderate Pain (4-6) Pantoprazole Sodium 40 mg 03/07/25 09:00 03/12/25 08:00 Pantoprazole 40 Mg Tablet PO 40 mg QAM [facility] Administration Polyethylene Glycol 17 gm 03/06/25 17:06 Polyethylene Glycol 3350 17 Gm Powd.Pack PO QAM PRN Constipation Fluticasone/Salmeterol 2 puff 03/07/25 08:00 03/12/25 10:04 Fluticasone/Salmeterol 45-21 Mcg Inhaler 1 Puff INHALATION 2 puff DAILYRT [facility] Administration Senna/Docusate Sodium 1 tab 03/08/25 17:12 09/13/25 05:35 Senna/Docusate Sodium Tablet PO 1 tab HS PRN Administration Constipation Senna/Docusate Sodium 1 tab 03/09/25 17:00 03/12/25 08:02 Senna/Docusate Sodium Tablet PO 1 tab BID [facility] Administration Simvastatin 40 mg 03/07/25 09:00 03/12/25 08:00 Simvastatin 20 Mg Tablet PO 40 mg DAILY [facility] Administration Vitamin D 25 mcg 03/07/25 09:00 03/12/25 08:00 Cholecalciferol (Vitamin D3) 25 Mcg (1,000 Units) Tablet PO 25 mcg DAILY [facility] Administration Vitamin D 250 mcg 03/07/25 09:00 03/12/25 08:00 Cholecalciferol (Vitamin D3) 125 Mcg (5,000 Units) Tablet PO 250 mcg DAILY [facility] Administration Radiology Results: ITS Impressions Chest X-Ray 03/06/25 16:17 IMPRESSION: 1: NO ACUTE CARDIOPULMONARY DISEASE. Lumbar Spine MRI 03/07/25 14:47 IMPRESSION: 1. Status post L5 laminectomy with instrumented anterior and posterior L5-S1 spinal fusion. There is a 3.5 x 3.2 x 3.2 similar loculated fluid collection at the laminectomy bed most likely postoperative hematoma/seroma although differential would include abscess in the appropriate clinical setting. This exerts some mass effect upon the posterior margin of the thecal sac which along with some residual extruded disc material centrally at the L5-S1 disc space contributes to moderate central canal stenosis. 2. Moderate to severe spondylosis at L4-L5 and mild spondylosis and more cephalad lumbar spine with additional postoperative change of recent left L3-L4 hemilaminotomy. 3. Study limited by absence of axial and postcontrast imaging with study terminated prematurely due to patient discomfort. Venous Doppler Study 03/10/25 09:45 IMPRESSION: 1: No left lower extremity deep venous thrombosis. Lumbar Spine CT 03/10/25 15:39 IMPRESSION: 1. Again seen are changes of combined instrumented L5-S1 anterior and posterior spinal fusion with revision of the connection between the vertical srinath and the left S1 pedicle screw, placement of new bone graft material bilaterally and decompression with surgical drain placement at a postoperative hematoma/seroma at the laminectomy bed. 2. Redemonstration of nondisplaced fracture across the base of the right pedicle of L5 with some lucency along the cephalad margin of the right L5 pedicle screw at the level of the vertebral body. 3. Unchanged instrumented left sacroiliac arthrodesis. Labs Labs: Laboratory Results - last 24 hr 03/11/25 03/12/25 04:33 04:59 WBC 4.2 L RBC 2.60 L Hgb 7.6 L Hct 24.2 L MCV 93.1 MCH 29.2 MCHC 31.4 L RDW 14.6 H Plt Count 245 MPV 10.9 H Sodium 133 L Potassium 4.4 Chloride 100 Carbon Dioxide 30 Anion Gap 3 L BUN 15 Creatinine 0.77 Estim Creat Clear Calc 56 Estimated GFR > 60 Glucose 125 H Calcium 9.1 Iron < 10 L TIBC 280 % Saturation 4 L
--- NOTE | 2025-03-12 13:32 | P.PNIM_ITS ---
Progress Note: A&P Assessment and Plan (1) Back pain: Qualifiers: Back pain laterality: bilateral Back pain location: low back pain Chronicity: acute Sciatica laterality: sciatica of right side Sciatica presence: with sciatica Qualified Code(s): M54.41 - Lumbago with sciatica, right side Code(s): M54.9 - Dorsalgia, unspecified Status: Acute Assessment and Plan: s/p L5-S1 posterior lumbar interbody fusion and L3-4 hemilaminectomy 01/10/[address] Silvestre. Initially complicated by post-operative pain. Plain films demonstrated good position of the hardware and interbody devices with the exception of the left srinath which seems to not be seated in the left S1 screw head per patient's neurosurgeon. CT was completed on 03/01 (see impression below) as follow-up on this imaging. Patient has also developed new difficulty urinating for the past week, historically has had urinary incontinence for years. - CT lumbar spine, 03/01: 1. Severe lower lumbar spondylosis status post interval L5 laminectomy and combined instrumented L5-S1 anterior and posterior spinal fusion. Of note there appears to be a subacute to early chronic still discernible nondisplaced coron ally oriented fracture extends across the anterior base of the right L5 pedicle. 2. Although significantly more limited on CT than with MRI particularly in the presence of streak artifact related to the metallic instrumentation, there appears to be increased soft tissue density at the laminectomy bed with suggestion of moderate residual central canal stenosis at this level. Would consider further evaluation with MRI as clinically indicated. 3. Interval instrumented left sacroiliac arthrodesis. - bladder scan with PVR 0 in ED - neurosurgery consulted - MR lumbar spine - analgesics - continue home gabapentin. Start PRN Percocet, Morphine for breakthrough. Trial tizanidine. Patient reports she is no longer on steroids. - PT/OT once NSG clears neurosurgery notes reviewed: Wound Exploration For Hematoma with Dillon Marin today 03/09- neurosurgery didnot round today yet- pt is in pain and lt leg is numb- but nit much worse than it was 03/10 neurosurgey is aware of pain. Doppler is ordered. will consider CT for re eval as numbness is worse and pain 03/11 lt leg is still a bit swollen but pulses present, skin is warm. encouraged to ambulate, work with pt/ot and continue with pain control CT was repeated on 03/10: IMPRESSION: 1. Again seen are changes of combined instrumented L5-S1 anterior and posterior spinal fusion with revision of the connection between the vertical srinath and the left S1 pedicle screw, placement of new bone graft material bilaterally and decompression with surgical drain placement at a postoperative hematoma/seroma at the laminectomy bed. 2. Redemonstration of nondisplaced fracture across the base of the right pedicle of L5 with some lucency along the cephalad margin of the right L5 pedicle screw at the level of the vertebral body. 3. Unchanged instrumented left sacroiliac arthrodesis. drain is removed per dr marin mri is scheduled for tomorrow pain and swelling still an issue but able to work with pt/ot (2) Peripheral edema: Code(s): R60.0 - Localized edema Status: Acute Assessment and Plan: Reporting new, significant BLE edema. BNP WNL for age and CXR did not demonstrate any pulmonary edema. S/p lumbar surgery in December of 2024. Possible complications noted on imaging, see above. - neli wraps as tolerated, may d/c at night to sleep - BNP and CXR not indicative of CHF - BLE VD negative for DVT - complication to lumbar surgery/immobility? - mobilize as able. Elevate lower extremities. (3) Urinary tract infection: Code(s): N39.0 - Urinary tract infection, site not specified Status: Acute Assessment and Plan: - UA with positive nitrates, 1+ LE, 6-10 WBC - patient reports urinary hesitancy - previous culture with pansensitive Klebsiella - start IV Rocephin, await urine culture continue rocephin- finising up course (4) Hypertension: Qualifiers: Hypertension type: primary hypertension Qualified Code(s): I10 - Essential (primary) hypertension Code(s): I10 - Essential (primary) hypertension Status: Chronic Assessment and Plan: - chronic, currently 126/71 - continue home medications: HCTZ, lisinopril - monitor (5) Anemia: Code(s): D64.9 - Anemia, unspecified Status: Acute Assessment and Plan: - Hgb 11.7 7/3. 9.5 on admission, trended down to 8.6 - may have component of hemodilution as patient was on fluids overnight - denied signs of bleeding - check iron studies, occult stool - monitor CBC. Transfuse Hgb <7. daily labs ordered unable to collect stool but reported no blood noted iron panel ordered no c/o dizziness, lightheadedness monitor closely iron replacement ordered Plan post void residual check DVT Prophylaxis: lovenox SQ Code Status: full code Time Spent With Patient Time with patient: 25 - 35 minutes Subjective Date/time seen: 03/12/25 13:32 Interval history: Pt is seen and examined. Neurosurgery, DR Silvestre saw her this am. MRI is ordered for tomorrow. She reports some difficulties with urinating and still pain and swelling to let leg. Working with PT/OT Review of Systems Review of Systems: lt leg numbness and pain All systems reviewed & are unremarkable except as noted in HPI and below Exam Narrative: General: appears uncomfortable but reports in pain. drain had been removed per DR Marin Eyes: EOMI ENT: neck supple Cardiovascular: Regular rate and rhythm Respiratory: Clear to auscultation, respirations even and unlabored on RA Gastrointestinal: Soft, non tender Genitourinary: no suprapubic tenderness Musculoskeletal: No edema Skin: warm, dry Neuro: Alert. Psych: Mood appropriate Const: General: comfortable, no acute distress and uncomfortable Other: , female, nontoxic appearance HENMT: Face/Nose/Sinus: Normal nares present Mouth: Yes moist mucous membranes Eyes: General: appearance normal, both eyes and all related structures Sclera: sclerae normal Pupils: Equal, round and reactive pupils present EOM: EOMs intact bilaterally Resp: Effort & Inspection: normal respiratory effort Auscultation: clear to auscultation bilaterally Cardio: Rate: regular rate Rhythm: regular rhythm Other: S1-S2 present without murmur, rub, ectopy GI: Other: Abdomen soft, nondistended, nontender. Normoactive bowel sounds in all quadrants. Skin: General skin exam: normal color and no rashes or lesions noted Wounds: no wounds Neuro: Cranial nerves: Yes Equal, round and reactive pupils present Speech: normal speech Motor exam (neuro): 5/5 motor strength present throughout Sensory Exam: normal sensation Other: No numbness or tingling, pain with movement in her lower back that radiates down her bilateral lower extremities. Extrem: Other: 1-2+ pitting edema, symmetric, and legs very tight/firm. Psych: Mental Status: mental status grossly normal Affect: Anxious affect present Other: good insight and judgement, pleasant. Objective Data Vital Signs Vital Signs: Vital Signs - 24 hr 03/11/25 20:00 03/11/25 21:08 03/12/25 06:00 Temperature 97.1 F L 97.1 F L Pulse Rate 88 88 90 Respiratory Rate 16 16 16 Blood Pressure 137/80 129/67 Pulse Oximetry 94 94 98 Oxygen Delivery Room Air Fraction of Inspired Oxygen 03/12/25 07:51 03/12/25 10:04 03/12/25 10:04 Temperature Pulse Rate 80 93 95 Respiratory Rate 18 18 Blood Pressure 117/68 Pulse Oximetry 96 95 Oxygen Delivery Room Air Fraction of Inspired Oxygen 21 Intake/Output Intake/Output: Intake & Output 03/09/25 03/10/25 03/11/25 03/12/25 23:59 23:59 23:59 23:59 Intake Total 2260 1740 1430 220 Output Total 1600 1450 1950 300 Balance 660 290 -520 -80 Meds/Results Medications: Active Medications Generic Name Dose Route Start Last Admin Trade Name Freq PRN Reason Stop Dose Admin Acetaminophen 1,000 mg 03/06/25 17:01 Acetaminophen 500 Mg Tablet PO Q6H PRN Pain Rated 1-3 Al Hydrox/Mg Hydrox/Simethicone 20 ml 03/08/25 17:12 Mag Hydrox/Al Hydrox/Simeth 30 Ml Udc PO Q4H PRN Indigestion/Heartburn Albuterol 1 puff 03/06/25 21:53 Albuterol Sulfate (*Sp) Aerosol 1 Puff INHALATION Q4-6H PRN Wheezing Bisacodyl 10 mg 03/08/25 17:12 Bisacodyl 10 Mg Suppository RECTAL DAILY PRN Constipation Calcium Carbonate 500 mg 03/07/25 12:00 03/11/25 13:46 Calcium Carbonate (Oscal) 500 Mg Tablet PO 500 mg DAILY@1200 [facility] Administration Diazepam 5 mg 03/11/25 17:10 03/11/25 20:56 Diazepam (*Crx) 5 Mg Tablet PO 5 mg TID PRN Administration Muscle Spasm Docusate Sodium 100 mg 03/06/25 17:06 Docusate Sodium 100 Mg Capsule PO Q12H PRN Constipation Docusate Sodium 100 mg 03/08/25 21:00 03/12/25 08:01 Docusate Sodium 100 Mg Capsule PO 100 mg Q12HR LANG Administration Gabapentin 300 mg 03/06/25 21:40 03/12/25 08:00 Gabapentin 300 Mg Capsule PO 300 mg Q12HR [facility]ANG Administration Hydrochlorothiazide 12.5 mg 03/07/25 09:00 03/12/25 08:00 Hydrochlorothiazide 12.5 Mg Capsule PO 12.5 mg DAILY [facility] Administration Hydromorphone HCl 0.5 mg 03/08/25 17:12 03/12/25 07:44 Hydromorphone Hcl Inj (*Crx) 1 Mg/Ml Syr IV PUSH 0.5 mg Q2H PRN Administration Pain Rated 7-10 Hydroxyzine HCl 25 mg 03/06/25 21:38 03/11/25 20:56 Hydroxyzine Hcl 25 Mg Tablet PO 25 mg QID PRN Administration Anxiety Ceftriaxone Sodium 1 gm/ 50 mls @ 100 mls/hr 03/07/25 14:00 03/11/25 15:07 Sodium Chloride IVPB 100 mls/hr Q24H [facility] Administration Levothyroxine Sodium 50 mcg 03/07/25 06:30 03/12/25 05:33 Levothyroxine Sodium 50 Mcg Tablet PO 50 mcg DAILY@0630 [facility] Administration Lidocaine 1 patch 03/11/25 09:00 03/11/25 09:39 Lidocaine 5% Patch TRANSDERM Not Given DAILY [facility] Lisinopril 10 mg 03/07/25 09:00 03/12/25 08:00 Lisinopril 10 Mg Tablet PO 10 mg DAILY [facility] Administration Loratadine 10 mg 03/06/25 21:44 Loratadine 10 Mg Tablet PO DAILY PRN Congestion Meclizine HCl 25 mg 03/06/25 21:38 Meclizine Hcl 25 Mg Tablet PO TID PRN Dizziness Or Vertigo Multivitamins Therapeutic 1 tablet 03/07/25 12:00 03/11/25 13:46 Multivitamins Therapeutic Tab (*Bkc) PO 1 tablet DAILY@1200 [facility] Administration Ondansetron HCl 4 mg 03/06/25 17:01 03/11/25 18:31 Ondansetron Hcl Odt 4 Mg Tablet PO 4 mg Q6H PRN Administration Nausea And Vomiting Ondansetron HCl 4 mg 03/08/25 17:12 Ondansetron Inj 4 Mg/2 Ml Vial IV PUSH Q8H PRN Nausea And Vomiting Oxycodone/Acetaminophen 1 tab 03/07/25 10:39 03/12/25 05:37 Oxycodone/Acetaminophen (*Crx) 10-325 Mg Tablet PO 1 tab Q4H PRN Administration Pain Rated 7-10 Oxycodone/Acetaminophen 1 tablet 03/08/25 17:12 Oxycodone/Acetaminophen (*Crx) 5-325 Mg Tablet PO Q4H PRN Mild Pain (1-3) Oxycodone/Acetaminophen 1 tab 03/08/25 17:12 03/08/25 22:52 Oxycodone/Acetaminophen (*Crx) 10-325 Mg Tablet PO 1 tab Q4H PRN Administration Moderate Pain (4-6) Pantoprazole Sodium 40 mg 03/07/25 09:00 03/12/25 08:00 Pantoprazole 40 Mg Tablet PO 40 mg QAM [facility]ANG Administration Polyethylene Glycol 17 gm 03/06/25 17:06 Polyethylene Glycol 3350 17 Gm Powd.Pack PO QAM PRN Constipation Fluticasone/Salmeterol 2 puff 03/07/25 08:00 03/12/25 10:04 Fluticasone/Salmeterol 45-21 Mcg Inhaler 1 Puff INHALATION 2 puff DAILYRT [facility] Administration Senna/Docusate Sodium 1 tab 03/08/25 17:12 03/11/25 05:35 Senna/Docusate Sodium Tablet PO 1 tab HS PRN Administration Constipation Senna/Docusate Sodium 1 tab 03/09/25 17:00 03/12/25 08:02 Senna/Docusate Sodium Tablet PO 1 tab BID [facility] Administration Simvastatin 40 mg 03/07/25 09:00 03/12/25 08:00 Simvastatin 20 Mg Tablet PO 40 mg DAILY [facility] Administration Vitamin D 25 mcg 03/07/25 09:00 03/12/25 08:00 Cholecalciferol (Vitamin D3) 25 Mcg (1,000 Units) Tablet PO 25 mcg DAILY [facility] Administration Vitamin D 250 mcg 03/07/25 09:00 03/12/25 08:00 Cholecalciferol (Vitamin D3) 125 Mcg (5,000 Units) Tablet PO 250 mcg DAILY [facility] Administration Radiology Results: ITS Impressions Chest X-Ray 03/06/25 16:17 IMPRESSION: 1: NO ACUTE CARDIOPULMONARY DISEASE. Lumbar Spine MRI 03/07/25 14:47 IMPRESSION: 1. Status post L5 laminectomy with instrumented anterior and posterior L5-S1 spinal fusion. There is a 3.5 x 3.2 x 3.2 similar loculated fluid collection at the laminectomy bed most likely postoperative hematoma/seroma although differential would include abscess in the appropriate clinical setting. This exerts some mass effect upon the posterior margin of the thecal sac which along with some residual extruded disc material centrally at the L5-S1 disc space contributes to moderate central canal stenosis. 2. Moderate to severe spondylosis at L4-L5 and mild spondylosis and more cephalad lumbar spine with additional postoperative change of recent left L3-L4 hemilaminotomy. 3. Study limited by absence of axial and postcontrast imaging with study terminated prematurely due to patient discomfort. Venous Doppler Study 03/10/25 09:45 IMPRESSION: 1: No left lower extremity deep venous thrombosis. Lumbar Spine CT 03/10/25 15:39 IMPRESSION: 1. Again seen are changes of combined instrumented L5-S1 anterior and posterior spinal fusion with revision of the connection between the vertical srinath and the left S1 pedicle screw, placement of new bone graft material bilaterally and decompression with surgical drain placement at a postoperative hematoma/seroma at the laminectomy bed. 2. Redemonstration of nondisplaced fracture across the base of the right pedicle of L5 with some lucency along the cephalad margin of the right L5 pedicle screw at the level of the vertebral body. 3. Unchanged instrumented left sacroiliac arthrodesis. Labs Labs: Laboratory Results - last 24 hr 03/11/25 03/12/25 04:33 04:59 WBC 4.2 L RBC 2.60 L Hgb 7.6 L Hct 24.2 L MCV 93.1 MCH 29.2 MCHC 31.4 L RDW 14.6 H Plt Count 245 MPV 10.9 H Sodium 133 L Potassium 4.4 Chloride 100 Carbon Dioxide 30 Anion Gap 3 L BUN 15 Creatinine 0.77 Estim Creat Clear Calc 56 Estimated GFR > 60 Glucose 125 H Calcium 9.1 Iron < 10 L TIBC 280 % Saturation 4 L Quality VTE Prophylaxis VTE prophylaxis: pharmacologic ordered
[2025-03-12] MEDS: CALCIUM CARBONATE (OSCAL) 500 MG TABLET PO (13:40)
[2025-03-12] MEDS: MULTIVITAMINS THERAPEUTIC TAB (*BKC) 1 TABLET PO (13:40)
[2025-03-12] MEDS: cefTRIAXone 1 GM in SODIUM CHLORIDE 0.9% IV 50 ML 100 ML IVPB (13:56)
[2025-03-12 14:00] VITALS: BP 120/72; PULSE 95; RESP 18; TEMP 36.6; O2SAT 100
[2025-03-12] MEDS: ENOXAPARIN 40 MG/0.4 ML SYRINGE SUB-Q (14:12)
[2025-03-12] MEDS: diazePAM (*CRX) 5 MG TABLET PO ×2 (14:19→20:27)
[2025-03-12] MEDS: IRON SUCROSE COMPLEX 200 MG in SODIUM CHLORIDE 0.9% IV 100 ML 220 MG IVPB (15:28)
[2025-03-12 20:00] VITALS: PULSE 87; RESP 16; O2SAT 99
[2025-03-12 20:03] VITALS: BP 117/73; PULSE 87; RESP 16; TEMP 36.3; O2SAT 99
[2025-03-13] MEDS: oxyCODONE/ACETAMINOPHEN (*CRX) 10-325 MG TABLET 1 TAB PO ×5 (02:12→20:29)
[2025-03-13] MEDS: HYDROmorphone HCL INJ (*CRX) 1 MG/ML SYR 0.5 MG IV PUSH ×4 (03:37→22:32)
[2025-03-13] MEDS: dexAMETHasone SOD PHOS INJ 10 MG/ML 1 ML VIAL IV PUSH (04:09)
[2025-03-13 05:55] LABS: Hematocrit 25.8 % (37.0-47.0); Hemoglobin 7.8 g/dL (12.0-15.0); Mean Corpuscular HGB Conc 30.2 g/dl (32-36); Mean Corpuscular Hemoglobin 28.5 pg (26-34); Mean Corpuscular Volume 94.2 fl (80-100); Platelet Count Result 274 k/mm3 (150-375); Red Blood Count 2.74 M/mm3 (4.2-5.4); White Blood Count 5.6 K/mm3 (4.5-10.0)
[2025-03-13 05:58] VITALS: BP 146/78; PULSE 88; RESP 20; TEMP 36.8; O2SAT 98
[2025-03-13] MEDS: LEVOTHYROXINE SODIUM 50 MCG TABLET PO (06:04)
[2025-03-13] MEDS: diazePAM (*CRX) 5 MG TABLET PO ×3 (06:04→20:29)
[2025-03-13 06:20] LABS: Anion Gap 5 mmol/L (4-12); Blood Urea Nitrogen 19 mg/dL (7-17); Calcium 9.3 mg/dL (8.4-10.2); Carbon Dioxide 30 mmol/L (22-30); Chloride 101 mmol/L (98-107); Estimated CRCL calculation 60 ml/min; Estimated Glomerular Filt Rate > 60; Glucose 94 mg/dL (65-110); Potassium 4.2 mmol/L (3.4-5.0); Sodium 136 mmol/L (137-145)
[2025-03-13 09:30] VITALS: PULSE 88; RESP 18
[2025-03-13] MEDS: FLUTICASONE/SALMETEROL 45-21 MCG INHALER 1 PUFF 2 PUFF INHALATION (09:30)
[2025-03-13 09:45] VITALS: PULSE 88; O2SAT 95
[2025-03-13] MEDS: PANTOPRAZOLE 40 MG TABLET PO (09:49)
[2025-03-13] MEDS: DOCUSATE SODIUM 100 MG CAPSULE PO ×2 (09:49→20:29)
[2025-03-13] MEDS: SIMVASTATIN 20 MG TABLET 40 MG PO (09:49)
[2025-03-13] MEDS: CHOLECALCIFEROL (VITAMIN D3) 125 MCG (5,000 UNITS) TABLET 250 MCG PO (09:50)
[2025-03-13] MEDS: ENOXAPARIN 40 MG/0.4 ML SYRINGE SUB-Q (09:50)
[2025-03-13] MEDS: CHOLECALCIFEROL (VITAMIN D3) 25 MCG (1,000 UNITS) TABLET PO (09:50)
[2025-03-13] MEDS: GABAPENTIN 300 MG CAPSULE PO ×2 (09:50→20:30)
[2025-03-13] MEDS: SENNA/DOCUSATE SODIUM TABLET 1 TAB PO ×2 (09:50→17:45)
--- NOTE | 2025-03-13 10:47 | PCNWS ---
Weekly nutritional screen. Patient is tolerating current diet with adequate intake. No weight loss reported. No nutritional needs at this time.
[2025-03-13] MEDS: ONDANSETRON HCL ODT 4 MG TABLET PO (11:09)
--- NOTE | 2025-03-13 11:57 | PCPTNOTE ---
The patient treatment was not able to be completed at this time due to patient out of room for MRI. Will plan to continue treatment per plan of care.
[2025-03-13] MEDS: CALCIUM CARBONATE (OSCAL) 500 MG TABLET PO (13:22)
[2025-03-13] MEDS: MULTIVITAMINS THERAPEUTIC TAB (*BKC) 1 TABLET PO (13:23)
[2025-03-13] MEDS: cefTRIAXone 1 GM in SODIUM CHLORIDE 0.9% IV 50 ML 100 ML IVPB (13:23)
[2025-03-13 14:00] VITALS: BP 117/61; PULSE 99; TEMP 36.4; O2SAT 95
--- NOTE | 2025-03-13 15:51 | P.PNIM_ITS ---
Progress Note: A&P Assessment and Plan (1) Back pain: Qualifiers: Back pain laterality: bilateral Back pain location: low back pain Chronicity: acute Sciatica laterality: sciatica of right side Sciatica presence: with sciatica Qualified Code(s): M54.41 - Lumbago with sciatica, right side Code(s): M54.9 - Dorsalgia, unspecified Status: Acute Assessment and Plan: s/p L5-S1 posterior lumbar interbody fusion and L3-4 hemilaminectomy 01/10/[address] Silvestre. Initially complicated by post-operative pain. Plain films demonstrated good position of the hardware and interbody devices with the exception of the left srinath which seems to not be seated in the left S1 screw head per patient's neurosurgeon. CT was completed on 03/01 (see impression below) as follow-up on this imaging. Patient has also developed new difficulty urinating for the past week, historically has had urinary incontinence for years. - CT lumbar spine, 03/01: 1. Severe lower lumbar spondylosis status post interval L5 laminectomy and combined instrumented L5-S1 anterior and posterior spinal fusion. Of note there appears to be a subacute to early chronic still discernible nondisplaced coron ally oriented fracture extends across the anterior base of the right L5 pedicle. 2. Although significantly more limited on CT than with MRI particularly in the presence of streak artifact related to the metallic instrumentation, there appears to be increased soft tissue density at the laminectomy bed with suggestion of moderate residual central canal stenosis at this level. Would consider further evaluation with MRI as clinically indicated. 3. Interval instrumented left sacroiliac arthrodesis. - bladder scan with PVR 0 in ED - neurosurgery consulted - MR lumbar spine - analgesics - continue home gabapentin. Start PRN Percocet, Morphine for breakthrough. Trial tizanidine. Patient reports she is no longer on steroids. - PT/OT once NSG clears neurosurgery notes reviewed: Wound Exploration For Hematoma with Dillon Marin today 03/09- neurosurgery didnot round today yet- pt is in pain and lt leg is numb- but nit much worse than it was 03/10 neurosurgey is aware of pain. Doppler is ordered. will consider CT for re eval as numbness is worse and pain 03/11 lt leg is still a bit swollen but pulses present, skin is warm. encouraged to ambulate, work with pt/ot and continue with pain control CT was repeated on 03/10: IMPRESSION: 1. Again seen are changes of combined instrumented L5-S1 anterior and posterior spinal fusion with revision of the connection between the vertical srinath and the left S1 pedicle screw, placement of new bone graft material bilaterally and decompression with surgical drain placement at a postoperative hematoma/seroma at the laminectomy bed. 2. Redemonstration of nondisplaced fracture across the base of the right pedicle of L5 with some lucency along the cephalad margin of the right L5 pedicle screw at the level of the vertebral body. 3. Unchanged instrumented left sacroiliac arthrodesis. drain is removed per dr marin mri is scheduled for tomorrow pain and swelling still an issue but able to work with pt/ot 03/13 mri today no new worsenig of sympotms (2) Peripheral edema: Code(s): R60.0 - Localized edema Status: Acute Assessment and Plan: Reporting new, significant BLE edema. BNP WNL for age and CXR did not demonstrate any pulmonary edema. S/p lumbar surgery in December of 2024. Possible complications noted on imaging, see above. - neli wraps as tolerated, may d/c at night to sleep - BNP and CXR not indicative of CHF - BLE VD negative for DVT - complication to lumbar surgery/immobility? - mobilize as able. Elevate lower extremities. slightly improved (3) Urinary tract infection: Code(s): N39.0 - Urinary tract infection, site not specified Status: Acute Assessment and Plan: - UA with positive nitrates, 1+ LE, 6-10 WBC - patient reports urinary hesitancy - previous culture with pansensitive Klebsiella - start IV Rocephin, await urine culture continue rocephin- finising up course (4) Hypertension: Qualifiers: Hypertension type: primary hypertension Qualified Code(s): I10 - Essential (primary) hypertension Code(s): I10 - Essential (primary) hypertension Status: Chronic Assessment and Plan: - chronic, currently 126/71 - continue home medications: HCTZ, lisinopril - monitor (5) Anemia: Code(s): D64.9 - Anemia, unspecified Status: Acute Assessment and Plan: - Hgb 11.7 7/3. 9.5 on admission, trended down to 8.6 - may have component of hemodilution as patient was on fluids overnight - denied signs of bleeding - check iron studies, occult stool - monitor CBC. Transfuse Hgb <7. daily labs ordered unable to collect stool but reported no blood noted iron panel ordered no c/o dizziness, lightheadedness monitor closely iron replacement ordered Plan post void residual check DVT Prophylaxis: lovenox SQ Code Status: full code Time Spent With Patient Time with patient: 25 - 35 minutes Subjective Date/time seen: 03/13/25 15:51 Interval history: Pt is seen and examined. Neurosurgery, DR Silvestre saw her yesterday. MRI is ordered for today Working with PT/OT. Review of Systems Review of Systems: lt leg numbness and pain All systems reviewed & are unremarkable except as noted in HPI and below Exam Narrative: General: appears uncomfortable but reports in pain. drain had been removed per DR Marin Eyes: EOMI ENT: neck supple Cardiovascular: Regular rate and rhythm Respiratory: Clear to auscultation, respirations even and unlabored on RA Gastrointestinal: Soft, non tender Genitourinary: no suprapubic tenderness Musculoskeletal: No edema Skin: warm, dry Neuro: Alert. Psych: Mood appropriate Const: General: comfortable, no acute distress and uncomfortable Other: , female, nontoxic appearance HENMT: Face/Nose/Sinus: Normal nares present Mouth: Yes moist mucous membranes Eyes: General: appearance normal, both eyes and all related structures Sclera: sclerae normal Pupils: Equal, round and reactive pupils present EOM: EOMs intact bilaterally Resp: Effort & Inspection: normal respiratory effort Auscultation: clear to auscultation bilaterally Cardio: Rate: regular rate Rhythm: regular rhythm Other: S1-S2 present without murmur, rub, ectopy GI: Other: Abdomen soft, nondistended, nontender. Normoactive bowel sounds in all quadrants. Skin: General skin exam: normal color and no rashes or lesions noted Wounds: no wounds Neuro: Cranial nerves: Yes Equal, round and reactive pupils present Speech: normal speech Motor exam (neuro): 5/5 motor strength present throughout Sensory Exam: normal sensation Other: No numbness or tingling, pain with movement in her lower back that radiates down her bilateral lower extremities. Extrem: Other: 1-2+ pitting edema, symmetric, and legs very tight/firm. Psych: Mental Status: mental status grossly normal Affect: Anxious affect present Other: good insight and judgement, pleasant. Objective Data Vital Signs Vital Signs: Vital Signs - 24 hr 03/12/25 20:00 03/12/25 20:03 03/13/25 05:58 Temperature 97.4 F L 98.3 F Pulse Rate 87 87 88 Respiratory Rate 16 16 20 Blood Pressure 117/73 146/78 H Pulse Oximetry 99 99 98 Oxygen Delivery Room Air Fraction of Inspired Oxygen 21 03/13/25 09:30 03/13/25 09:45 03/13/25 14:00 Temperature 97.5 F L Pulse Rate 88 88 99 Respiratory Rate 18 Blood Pressure 117/61 Pulse Oximetry 95 95 Oxygen Delivery Room Air Fraction of Inspired Oxygen 21 Intake/Output Intake/Output: Intake & Output 03/10/25 03/11/25 03/12/25 03/13/25 23:59 23:59 23:59 23:59 Intake Total 1740 1298 086 4185 Output Total 1450 1950 900 950 Balance 290 -470 -390 80 Meds/Results Medications: Active Medications Generic Name Dose Route Start Last Admin Trade Name Freq PRN Reason Stop Dose Admin Acetaminophen 1,000 mg 03/06/25 17:01 Acetaminophen 500 Mg Tablet PO Q6H PRN Pain Rated 1-3 Al Hydrox/Mg Hydrox/Simethicone 20 ml 03/08/25 17:12 Mag Hydrox/Al Hydrox/Simeth 30 Ml Udc PO Q4H PRN Indigestion/Heartburn Albuterol 1 puff 03/06/25 21:53 Albuterol Sulfate (*Sp) Aerosol 1 Puff INHALATION Q4-6H PRN Wheezing Bisacodyl 10 mg 03/08/25 17:12 Bisacodyl 10 Mg Suppository RECTAL DAILY PRN Constipation Calcium Carbonate 500 mg 03/07/25 12:00 03/13/25 13:22 Calcium Carbonate (Oscal) 500 Mg Tablet PO 500 mg DAILY@1200 LANG Administration Diazepam 5 mg 03/11/25 17:10 03/13/25 11:09 Diazepam (*Crx) 5 Mg Tablet PO 5 mg TID PRN Administration Muscle Spasm Docusate Sodium 100 mg 03/06/25 17:06 Docusate Sodium 100 Mg Capsule PO Q12H PRN Constipation Docusate Sodium 100 mg 03/08/25 21:00 03/13/25 09:49 Docusate Sodium 100 Mg Capsule PO 100 mg Q12HR LANG Administration Enoxaparin Sodium 40 mg 03/12/25 13:40 03/13/25 09:50 Enoxaparin 40 Mg/0.4 Ml Syringe SUB-Q 40 mg DAILY LANG Administration Gabapentin 300 mg 03/06/25 21:40 03/13/25 09:50 Gabapentin 300 Mg Capsule PO 300 mg Q12HR LANG Administration Hydrochlorothiazide 12.5 mg 03/07/25 09:00 03/13/25 09:49 Hydrochlorothiazide 12.5 Mg Capsule PO 12.5 mg DAILY LNAG Administration Hydromorphone HCl 0.5 mg 03/08/25 17:12 03/13/25 13:21 Hydromorphone Hcl Inj (*Crx) 1 Mg/Ml Syr IV PUSH 0.5 mg Q2H PRN Administration Pain Rated 7-10 Hydroxyzine HCl 25 mg 03/06/25 21:38 03/12/25 20:27 Hydroxyzine Hcl 25 Mg Tablet PO 25 mg QID PRN Administration Anxiety Ceftriaxone Sodium 1 gm/ 50 mls @ 100 mls/hr 03/07/25 14:00 03/13/25 13:23 Sodium Chloride IVPB 100 mls/hr Q24H LANG Administration Levothyroxine Sodium 50 mcg 03/07/25 06:30 03/13/25 06:04 Levothyroxine Sodium 50 Mcg Tablet PO 50 mcg DAILY@0630 [facility] Administration Lidocaine 1 patch 03/11/25 09:00 03/13/25 09:51 Lidocaine 5% Patch TRANSDERM Not Given DAILY [facility] Lisinopril 10 mg 03/07/25 09:00 03/13/25 09:49 Lisinopril 10 Mg Tablet PO 10 mg DAILY LANG Administration Loratadine 10 mg 03/06/25 21:44 Loratadine 10 Mg Tablet PO DAILY PRN Congestion Meclizine HCl 25 mg 03/06/25 21:38 Meclizine Hcl 25 Mg Tablet PO TID PRN Dizziness Or Vertigo Multivitamins Therapeutic 1 tablet 03/07/25 12:00 03/13/25 13:23 Multivitamins Therapeutic Tab (*Bkc) PO 1 tablet DAILY@1200 [facility] Administration Ondansetron HCl 4 mg 03/06/25 17:01 03/13/25 11:09 Ondansetron Hcl Odt 4 Mg Tablet PO 4 mg Q6H PRN Administration Nausea And Vomiting Ondansetron HCl 4 mg 03/08/25 17:12 Ondansetron Inj 4 Mg/2 Ml Vial IV PUSH Q8H PRN Nausea And Vomiting Oxycodone/Acetaminophen 1 tab 03/07/25 10:39 03/13/25 10:04 Oxycodone/Acetaminophen (*Crx) 10-325 Mg Tablet PO 1 tab Q4H PRN Administration Pain Rated 7-10 Oxycodone/Acetaminophen 1 tablet 03/08/25 17:12 Oxycodone/Acetaminophen (*Crx) 5-325 Mg Tablet PO Q4H PRN Mild Pain (1-3) Oxycodone/Acetaminophen 1 tab 03/08/25 17:12 03/08/25 22:52 Oxycodone/Acetaminophen (*Crx) 10-325 Mg Tablet PO 1 tab Q4H PRN Administration Moderate Pain (4-6) Pantoprazole Sodium 40 mg 03/07/25 09:00 03/13/25 09:49 Pantoprazole 40 Mg Tablet PO 40 mg QAM LANG Administration Polyethylene Glycol 17 gm 03/06/25 17:06 Polyethylene Glycol 3350 17 Gm Powd.Pack PO QAM PRN Constipation Fluticasone/Salmeterol 2 puff 03/07/25 08:00 03/13/25 09:30 Fluticasone/Salmeterol 45-21 Mcg Inhaler 1 Puff INHALATION 2 puff DAILYRT LANG Administration Senna/Docusate Sodium 1 tab 03/08/25 17:12 03/11/25 05:35 Senna/Docusate Sodium Tablet PO 1 tab HS PRN Administration Constipation Senna/Docusate Sodium 1 tab 03/09/25 17:00 03/13/25 09:50 Senna/Docusate Sodium Tablet PO 1 tab BID LANG Administration Simvastatin 40 mg 03/07/25 09:00 03/13/25 09:49 Simvastatin 20 Mg Tablet PO 40 mg DAILY LANG Administration Vitamin D 25 mcg 03/07/25 09:00 03/13/25 09:50 Cholecalciferol (Vitamin D3) 25 Mcg (1,000 Units) Tablet PO 25 mcg DAILY LANG Administration Vitamin D 250 mcg 03/07/25 09:00 03/13/25 09:50 Cholecalciferol (Vitamin D3) 125 Mcg (5,000 Units) Tablet PO 250 mcg DAILY LANG Administration Radiology Results: ITS Impressions Chest X-Ray 03/06/25 16:17 IMPRESSION: 1: NO ACUTE CARDIOPULMONARY DISEASE. Venous Doppler Study 03/10/25 09:45 IMPRESSION: 1: No left lower extremity deep venous thrombosis. Lumbar Spine CT 03/10/25 15:39 IMPRESSION: 1. Again seen are changes of combined instrumented L5-S1 anterior and posterior spinal fusion with revision of the connection between the vertical srinath and the left S1 pedicle screw, placement of new bone graft material bilaterally and decompression with surgical drain placement at a postoperative hematoma/seroma at the laminectomy bed. 2. Redemonstration of nondisplaced fracture across the base of the right pedicle of L5 with some lucency along the cephalad margin of the right L5 pedicle screw at the level of the vertebral body. 3. Unchanged instrumented left sacroiliac arthrodesis. Labs Labs: Laboratory Results - last 24 hr 03/13/25 05:31 WBC 5.6 RBC 2.74 L Hgb 7.8 L Hct 25.8 L MCV 94.2 MCH 28.5 MCHC 30.2 L RDW 14.6 H Plt Count 274 MPV 10.7 H Sodium 136 L Potassium 4.2 Chloride 101 Carbon Dioxide 30 Anion Gap 5 BUN 19 H Creatinine 0.71 Estim Creat Clear Calc 60 Estimated GFR > 60 Glucose 94 Calcium 9.3 Quality VTE Prophylaxis VTE prophylaxis: pharmacologic ordered
--- NOTE | 2025-03-13 16:18 | P.PNNEUSUR_ITS ---
Progress Note: A&P Assessment and Plan (1) Status post lumbar spinal arthrodesis: Code(s): Z98.1 - Arthrodesis status Status: Acute Plan Plan: Dr. Silvestre will review MRI and will call patient to discuss results. Continue with pain control. Continue PT/OT. Time Spent With Patient Time with patient: 15 - 25 minutes Subjective Date/time seen: 03/13/25 16:18 Interval history: Yaima continues to have left lower extremity pain, edema, and mild dorsiflexion weakness. She states that last night, the pain was unbearable. Today, the pain is a little better than what it was but is still constantly present. She does feel like the lower extremity edema has improved slightly. She denies any new numbness, tingling, or weakness. She had her lumbar spine MRI completed this afternoon but the read is not yet done. Patient is resting in bed and endorses current left lateral leg pain.. Exam Narrative: Incision is clean, dry, and intact. Left distal lower extremity 1+ edema Left ankle dorsiflexion 4/5 compared to right Sensation to light touch is intact Objective Data Vital Signs Vital Signs: Vital Signs - 24 hr 03/12/25 20:00 03/12/25 20:03 03/13/25 05:58 Temperature 97.4 F L 98.3 F Pulse Rate 87 87 88 Respiratory Rate 16 16 20 Blood Pressure 117/73 146/78 H Pulse Oximetry 99 99 98 Oxygen Delivery Room Air Fraction of Inspired Oxygen 21 03/13/25 09:30 03/13/25 09:45 03/13/25 14:00 Temperature 97.5 F L Pulse Rate 88 88 99 Respiratory Rate 18 Blood Pressure 117/61 Pulse Oximetry 95 95 Oxygen Delivery Room Air Fraction of Inspired Oxygen 21 Intake/Output Intake/Output: Intake & Output 03/10/25 03/11/25 03/12/25 03/13/25 23:59 23:59 23:59 23:59 Intake Total 1740 0612 575 9661 Output Total 1450 1950 900 950 Balance 290 -470 -390 80 Meds/Results Medications: Active Medications Generic Name Dose Route Start Last Admin Trade Name Freq PRN Reason Stop Dose Admin Acetaminophen 1,000 mg 03/06/25 17:01 Acetaminophen 500 Mg Tablet PO Q6H PRN Pain Rated 1-3 Al Hydrox/Mg Hydrox/Simethicone 20 ml 03/08/25 17:12 Mag Hydrox/Al Hydrox/Simeth 30 Ml Udc PO Q4H PRN Indigestion/Heartburn Albuterol 1 puff 03/06/25 21:53 Albuterol Sulfate (*Sp) Aerosol 1 Puff INHALATION Q4-6H PRN Wheezing Bisacodyl 10 mg 03/08/25 17:12 Bisacodyl 10 Mg Suppository RECTAL DAILY PRN Constipation Calcium Carbonate 500 mg 03/07/25 12:00 03/13/25 13:22 Calcium Carbonate (Oscal) 500 Mg Tablet PO 500 mg DAILY@1200 [facility] Administration Diazepam 5 mg 03/11/25 17:10 03/13/25 11:09 Diazepam (*Crx) 5 Mg Tablet PO 5 mg TID PRN Administration Muscle Spasm Docusate Sodium 100 mg 03/06/25 17:06 Docusate Sodium 100 Mg Capsule PO Q12H PRN Constipation Docusate Sodium 100 mg 03/08/25 21:00 03/13/25 09:49 Docusate Sodium 100 Mg Capsule PO 100 mg Q12HR LANG Administration Enoxaparin Sodium 40 mg 03/12/25 13:40 03/13/25 09:50 Enoxaparin 40 Mg/0.4 Ml Syringe SUB-Q 40 mg DAILY LANG Administration Gabapentin 300 mg 03/06/25 21:40 03/13/25 09:50 Gabapentin 300 Mg Capsule PO 300 mg Q12HR LANG Administration Hydrochlorothiazide 12.5 mg 03/07/25 09:00 03/13/25 09:49 Hydrochlorothiazide 12.5 Mg Capsule PO 12.5 mg DAILY LANG Administration Hydromorphone HCl 0.5 mg 03/08/25 17:12 03/13/25 13:21 Hydromorphone Hcl Inj (*Crx) 1 Mg/Ml Syr IV PUSH 0.5 mg Q2H PRN Administration Pain Rated 7-10 Hydroxyzine HCl 25 mg 03/06/25 21:38 03/12/25 20:27 Hydroxyzine Hcl 25 Mg Tablet PO 25 mg QID PRN Administration Anxiety Levothyroxine Sodium 50 mcg 03/07/25 06:30 03/13/25 06:04 Levothyroxine Sodium 50 Mcg Tablet PO 50 mcg DAILY@0630 [facility] Administration Lidocaine 1 patch 03/11/25 09:00 03/13/25 09:51 Lidocaine 5% Patch TRANSDERM Not Given DAILY LANG Lisinopril 10 mg 03/07/25 09:00 03/13/25 09:49 Lisinopril 10 Mg Tablet PO 10 mg DAILY LANG Administration Loratadine 10 mg 03/06/25 21:44 Loratadine 10 Mg Tablet PO DAILY PRN Congestion Meclizine HCl 25 mg 03/06/25 21:38 Meclizine Hcl 25 Mg Tablet PO TID PRN Dizziness Or Vertigo Multivitamins Therapeutic 1 tablet 03/07/25 12:00 03/13/25 13:23 Multivitamins Therapeutic Tab (*Bkc) PO 1 tablet DAILY@1200 [facility] Administration Ondansetron HCl 4 mg 03/06/25 17:01 03/13/25 11:09 Ondansetron Hcl Odt 4 Mg Tablet PO 4 mg Q6H PRN Administration Nausea And Vomiting Ondansetron HCl 4 mg 03/08/25 17:12 Ondansetron Inj 4 Mg/2 Ml Vial IV PUSH Q8H PRN Nausea And Vomiting Oxycodone/Acetaminophen 1 tab 03/07/25 10:39 03/13/25 16:11 Oxycodone/Acetaminophen (*Crx) 10-325 Mg Tablet PO 1 tab Q4H PRN Administration Pain Rated 7-10 Oxycodone/Acetaminophen 1 tablet 03/08/25 17:12 Oxycodone/Acetaminophen (*Crx) 5-325 Mg Tablet PO Q4H PRN Mild Pain (1-3) Oxycodone/Acetaminophen 1 tab 03/08/25 17:12 03/08/25 22:52 Oxycodone/Acetaminophen (*Crx) 10-325 Mg Tablet PO 1 tab Q4H PRN Administration Moderate Pain (4-6) Pantoprazole Sodium 40 mg 03/07/25 09:00 03/13/25 09:49 Pantoprazole 40 Mg Tablet PO 40 mg QAM LANG Administration Polyethylene Glycol 17 gm 03/06/25 17:06 Polyethylene Glycol 3350 17 Gm Powd.Pack PO QAM PRN Constipation Fluticasone/Salmeterol 2 puff 03/07/25 08:00 03/13/25 09:30 Fluticasone/Salmeterol 45-21 Mcg Inhaler 1 Puff INHALATION 2 puff DAILYRT LANG Administration Senna/Docusate Sodium 1 tab 03/08/25 17:12 03/11/25 05:35 Senna/Docusate Sodium Tablet PO 1 tab HS PRN Administration Constipation Senna/Docusate Sodium 1 tab 03/09/25 17:00 03/13/25 09:50 Senna/Docusate Sodium Tablet PO 1 tab BID LANG Administration Simvastatin 40 mg 03/07/25 09:00 03/13/25 09:49 Simvastatin 20 Mg Tablet PO 40 mg DAILY LANG Administration Vitamin D 25 mcg 03/07/25 09:00 03/13/25 09:50 Cholecalciferol (Vitamin D3) 25 Mcg (1,000 Units) Tablet PO 25 mcg DAILY LANG Administration Vitamin D 250 mcg 03/07/25 09:00 03/13/25 09:50 Cholecalciferol (Vitamin D3) 125 Mcg (5,000 Units) Tablet PO 250 mcg DAILY LANG Administration Radiology Results: ITS Impressions Chest X-Ray 03/06/25 16:17 IMPRESSION: 1: NO ACUTE CARDIOPULMONARY DISEASE. Venous Doppler Study 03/10/25 09:45 IMPRESSION: 1: No left lower extremity deep venous thrombosis. Lumbar Spine CT 03/10/25 15:39 IMPRESSION: 1. Again seen are changes of combined instrumented L5-S1 anterior and posterior spinal fusion with revision of the connection between the vertical srinath and the left S1 pedicle screw, placement of new bone graft material bilaterally and decompression with surgical drain placement at a postoperative hematoma/seroma at the laminectomy bed. 2. Redemonstration of nondisplaced fracture across the base of the right pedicle of L5 with some lucency along the cephalad margin of the right L5 pedicle screw at the level of the vertebral body. 3. Unchanged instrumented left sacroiliac arthrodesis. Labs Labs: Laboratory Results - last 24 hr 03/13/25 05:31 WBC 5.6 RBC 2.74 L Hgb 7.8 L Hct 25.8 L MCV 94.2 MCH 28.5 MCHC 30.2 L RDW 14.6 H Plt Count 274 MPV 10.7 H Sodium 136 L Potassium 4.2 Chloride 101 Carbon Dioxide 30 Anion Gap 5 BUN 19 H Creatinine 0.71 Estim Creat Clear Calc 60 Estimated GFR > 60 Glucose 94 Calcium 9.3
[2025-03-13 20:09] VITALS: BP 108/58; PULSE 91; RESP 20; TEMP 36.4; O2SAT 97
[2025-03-14 04:26] VITALS: BP 118/67; PULSE 86; RESP 20; TEMP 36.4; O2SAT 97
[2025-03-14 04:57] LABS: Hematocrit 25.2 % (37.0-47.0); Hemoglobin 7.7 g/dL (12.0-15.0); Mean Corpuscular HGB Conc 30.6 g/dl (32-36); Mean Corpuscular Hemoglobin 28.8 pg (26-34); Mean Corpuscular Volume 94.4 fl (80-100); Platelet Count Result 285 k/mm3 (150-375); Red Blood Count 2.67 M/mm3 (4.2-5.4); White Blood Count 6.8 K/mm3 (4.5-10.0)
[2025-03-14 05:28] LABS: Anion Gap 3 mmol/L (4-12); Blood Urea Nitrogen 15 mg/dL (7-17); Calcium 8.8 mg/dL (8.4-10.2); Carbon Dioxide 30 mmol/L (22-30); Chloride 101 mmol/L (98-107); Estimated CRCL calculation 67 ml/min; Estimated Glomerular Filt Rate > 60; Glucose 85 mg/dL (65-110); Potassium 3.8 mmol/L (3.4-5.0); Sodium 134 mmol/L (137-145)
[2025-03-14] MEDS: LEVOTHYROXINE SODIUM 50 MCG TABLET PO (06:21)
[2025-03-14] MEDS: oxyCODONE/ACETAMINOPHEN (*CRX) 10-325 MG TABLET 1 TAB PO ×4 (06:21→20:30)
[2025-03-14] MEDS: FLUTICASONE/SALMETEROL 45-21 MCG INHALER 1 PUFF 2 PUFF INHALATION (07:35)
[2025-03-14 07:59] VITALS: BP 141/68; PULSE 95; RESP 18; O2SAT 98
[2025-03-14 08:01] VITALS: PULSE 95; RESP 18; O2SAT 98
[2025-03-14] MEDS: HYDROmorphone HCL INJ (*CRX) 1 MG/ML SYR 0.5 MG IV PUSH ×2 (08:01→22:36)
[2025-03-14 10:05] VITALS: BP 113/89; PULSE 83
[2025-03-14] MEDS: CHOLECALCIFEROL (VITAMIN D3) 25 MCG (1,000 UNITS) TABLET PO (10:08)
[2025-03-14] MEDS: DOCUSATE SODIUM 100 MG CAPSULE PO (10:08)
[2025-03-14] MEDS: GABAPENTIN 300 MG CAPSULE PO ×2 (10:09→20:30)
[2025-03-14] MEDS: SIMVASTATIN 20 MG TABLET 40 MG PO (10:09)
[2025-03-14] MEDS: SENNA/DOCUSATE SODIUM TABLET 1 TAB PO (10:09)
[2025-03-14] MEDS: MECLIZINE HCL 25 MG TABLET PO (10:09)
[2025-03-14] MEDS: CHOLECALCIFEROL (VITAMIN D3) 125 MCG (5,000 UNITS) TABLET 250 MCG PO (10:10)
[2025-03-14] MEDS: ENOXAPARIN 40 MG/0.4 ML SYRINGE SUB-Q (10:10)
[2025-03-14] MEDS: PANTOPRAZOLE 40 MG TABLET PO (10:10)
[2025-03-14] MEDS: CALCIUM CARBONATE (OSCAL) 500 MG TABLET PO (11:46)
[2025-03-14] MEDS: MULTIVITAMINS THERAPEUTIC TAB (*BKC) 1 TABLET PO (11:46)
[2025-03-14 13:49] LABS: IFOB Positive Control Positive; Immunochemical Fecal Occult Bl Negative (N)
[2025-03-14 14:00] VITALS: BP 110/76; PULSE 97; RESP 20; TEMP 36.1; O2SAT 97
--- NOTE | 2025-03-14 14:29 | PC.NURSE ---
On 03/14/25, the student, [Coni Arreola], provided [facility]. I have reviewed the student's documentation and agree with the findings.
--- NOTE | 2025-03-14 14:35 | P.PNIM_ITS ---
Progress Note: A&P Assessment and Plan (1) Back pain: Qualifiers: Back pain laterality: bilateral Back pain location: low back pain Chronicity: acute Sciatica laterality: sciatica of right side Sciatica presence: with sciatica Qualified Code(s): M54.41 - Lumbago with sciatica, right side Code(s): M54.9 - Dorsalgia, unspecified Status: Acute Assessment and Plan: s/p L5-S1 posterior lumbar interbody fusion and L3-4 hemilaminectomy 01/10/[address] Silvestre. Initially complicated by post-operative pain. Plain films demonstrated good position of the hardware and interbody devices with the exception of the left srinath which seems to not be seated in the left S1 screw head per patient's neurosurgeon. CT was completed on 03/01 (see impression below) as follow-up on this imaging. Patient has also developed new difficulty urinating for the past week, historically has had urinary incontinence for years. - CT lumbar spine, 03/01: 1. Severe lower lumbar spondylosis status post interval L5 laminectomy and combined instrumented L5-S1 anterior and posterior spinal fusion. Of note there appears to be a subacute to early chronic still discernible nondisplaced coron ally oriented fracture extends across the anterior base of the right L5 pedicle. 2. Although significantly more limited on CT than with MRI particularly in the presence of streak artifact related to the metallic instrumentation, there appears to be increased soft tissue density at the laminectomy bed with suggestion of moderate residual central canal stenosis at this level. Would consider further evaluation with MRI as clinically indicated. 3. Interval instrumented left sacroiliac arthrodesis. - bladder scan with PVR 0 in ED - neurosurgery consulted - MR lumbar spine - analgesics - continue home gabapentin. Start PRN Percocet, Morphine for breakthrough. Trial tizanidine. Patient reports she is no longer on steroids. - PT/OT once NSG clears neurosurgery notes reviewed: Wound Exploration For Hematoma with Dillon Marin today 03/09- neurosurgery didnot round today yet- pt is in pain and lt leg is numb- but nit much worse than it was 03/10 neurosurgey is aware of pain. Doppler is ordered. will consider CT for re eval as numbness is worse and pain 03/11 lt leg is still a bit swollen but pulses present, skin is warm. encouraged to ambulate, work with pt/ot and continue with pain control CT was repeated on 03/10: IMPRESSION: 1. Again seen are changes of combined instrumented L5-S1 anterior and posterior spinal fusion with revision of the connection between the vertical srinath and the left S1 pedicle screw, placement of new bone graft material bilaterally and decompression with surgical drain placement at a postoperative hematoma/seroma at the laminectomy bed. 2. Redemonstration of nondisplaced fracture across the base of the right pedicle of L5 with some lucency along the cephalad margin of the right L5 pedicle screw at the level of the vertebral body. 3. Unchanged instrumented left sacroiliac arthrodesis. drain is removed per dr marin mri is scheduled for tomorrow pain and swelling still an issue but able to work with pt/ot 03/13 mri today no new worsenig of sympotms 03/14 MRI was completed yesterday IMPRESSION: 1. Severe lumbar spondylosis. 2. Anterior and posterior fusion procedures at L5-S1. 3. Worsened fluid collection involving the surgical bed of the L5 posterior elements extending superiorly in the subcutaneous region. This finding may be a seroma, hematoma, or abscess. WBC is normal, no chills, no fever, VS stable. - will consult ID for recommendations - Neurosurgery is following (2) Peripheral edema: Code(s): R60.0 - Localized edema Status: Acute Assessment and Plan: Reporting new, significant BLE edema. BNP WNL for age and CXR did not demonstrate any pulmonary edema. S/p lumbar surgery in December of 2024. Possible complications noted on imaging, see above. - neli wraps as tolerated, may d/c at night to sleep - BNP and CXR not indicative of CHF - BLE VD negative for DVT - complication to lumbar surgery/immobility? - mobilize as able. Elevate lower extremities. slightly improved (3) Urinary tract infection: Code(s): N39.0 - Urinary tract infection, site not specified Status: Acute Assessment and Plan: - UA with positive nitrates, 1+ LE, 6-10 WBC - patient reports urinary hesitancy - previous culture with pansensitive Klebsiella - start IV Rocephin, await urine culture continue rocephin- finishing up course completed Rocephine no more symptoms (4) Hypertension: Qualifiers: Hypertension type: primary hypertension Qualified Code(s): I10 - Essential (primary) hypertension Code(s): I10 - Essential (primary) hypertension Status: Chronic Assessment and Plan: - chronic, currently 126/71 - continue home medications: HCTZ, lisinopril - monitor (5) Anemia: Code(s): D64.9 - Anemia, unspecified Status: Acute Assessment and Plan: - Hgb 11.7 7/3. 9.5 on admission, trended down to 8.6 - may have component of hemodilution as patient was on fluids overnight - denied signs of bleeding - check iron studies, occult stool - monitor CBC. Transfuse Hgb <7. daily labs ordered unable to collect stool but reported no blood noted iron panel ordered no c/o dizziness, lightheadedness monitor closely iron replacement ordered Plan post void residual check DVT Prophylaxis: lovenox SQ Code Status: full code Time Spent With Patient Time with patient: Greater than 35 minutes Subjective Date/time seen: 03/14/25 14:35 Interval history: Pt is seen and examined. Had BM -stool is collected. Her pain is still present. MRI completed. Pt is very emotional and upset as her recovery is very slow, and she is still struggling with pain. Neurosurgery is following. Review of Systems Review of Systems: lt leg numbness and pain All systems reviewed & are unremarkable except as noted in HPI and below Exam Narrative: General: appears uncomfortable but reports in pain. drain had been removed per DR Carr bed, resting. heating pad used ofr lt leg- helping a little bit. ENT: neck supple Cardiovascular: Regular rate and rhythm Respiratory: Clear to auscultation, respirations even and unlabored on RA Gastrointestinal: Soft, non tender Genitourinary: no suprapubic tenderness Musculoskeletal: No edema Skin: warm, dry Neuro: Alert. Psych: Mood appropriate Const: General: comfortable, no acute distress and uncomfortable Other: , female, nontoxic appearance HENMT: Face/Nose/Sinus: Normal nares present Mouth: Yes moist mucous membranes Eyes: General: appearance normal, both eyes and all related structures Sclera: sclerae normal Pupils: Equal, round and reactive pupils present EOM: EOMs intact bilaterally Resp: Effort & Inspection: normal respiratory effort Auscultation: clear to auscultation bilaterally Cardio: Rate: regular rate Rhythm: regular rhythm Other: S1-S2 present without murmur, rub, ectopy GI: Other: Abdomen soft, nondistended, nontender. Normoactive bowel sounds in all quadrants. Skin: General skin exam: normal color and no rashes or lesions noted Wounds: no wounds Neuro: Cranial nerves: Yes Equal, round and reactive pupils present Speech: normal speech Motor exam (neuro): 5/5 motor strength present throughout Sensory Exam: normal sensation Other: No numbness or tingling, pain with movement in her lower back that radiates down her bilateral lower extremities. Extrem: Other: 1-2+ pitting edema, symmetric, and legs very tight/firm. Psych: Mental Status: mental status grossly normal Affect: Anxious affect present Other: good insight and judgement, pleasant. Objective Data Vital Signs Vital Signs: Vital Signs - 24 hr 03/13/25 20:00 03/13/25 20:09 03/14/25 04:26 Temperature 97.6 F 97.6 F Pulse Rate 91 86 Respiratory Rate 20 20 Blood Pressure 108/58 L 118/67 Pulse Oximetry 97 97 Oxygen Delivery Room Air Fraction of Inspired Oxygen 03/14/25 07:59 03/14/25 08:01 03/14/25 10:05 Temperature Pulse Rate 95 95 83 Respiratory Rate 18 18 Blood Pressure 141/68 H 113/89 Pulse Oximetry 98 98 Oxygen Delivery Room Air Fraction of Inspired Oxygen 21 03/14/25 14:00 Temperature 97 F L Pulse Rate 97 Respiratory Rate 20 Blood Pressure 110/76 Pulse Oximetry 97 Oxygen Delivery Fraction of Inspired Oxygen Intake/Output Intake/Output: Intake & Output 03/11/25 03/12/25 03/13/25 03/14/25 23:59 23:59 23:59 23:59 Intake Total 0099 406 8424 550 Output Total 2011 567 5063 1450 Balance -470 -390 -430 -900 Meds/Results Medications: Active Medications Generic Name Dose Route Start Last Admin Trade Name Freq PRN Reason Stop Dose Admin Acetaminophen 1,000 mg 03/06/25 17:01 Acetaminophen 500 Mg Tablet PO Q6H PRN Pain Rated 1-3 Al Hydrox/Mg Hydrox/Simethicone 20 ml 03/08/25 17:12 Mag Hydrox/Al Hydrox/Simeth 30 Ml Udc PO Q4H PRN Indigestion/Heartburn Albuterol 1 puff 03/06/25 21:53 Albuterol Sulfate (*Sp) Aerosol 1 Puff INHALATION Q4-6H PRN Wheezing Bisacodyl 10 mg 03/08/25 17:12 Bisacodyl 10 Mg Suppository RECTAL DAILY PRN Constipation Calcium Carbonate 500 mg 03/07/25 12:00 03/14/25 11:46 Calcium Carbonate (Oscal) 500 Mg Tablet PO 500 mg DAILY@1200 [facility] Administration Diazepam 5 mg 03/11/25 17:10 03/13/25 20:29 Diazepam (*Crx) 5 Mg Tablet PO 5 mg TID PRN Administration Muscle Spasm Docusate Sodium 100 mg 03/06/25 17:06 Docusate Sodium 100 Mg Capsule PO Q12H PRN Constipation Docusate Sodium 100 mg 03/08/25 21:00 03/14/25 10:08 Docusate Sodium 100 Mg Capsule PO 100 mg Q12HR LANG Administration Enoxaparin Sodium 40 mg 03/12/25 13:40 03/14/25 10:10 Enoxaparin 40 Mg/0.4 Ml Syringe SUB-Q 40 mg DAILY LANG Administration Gabapentin 300 mg 03/06/25 21:40 03/14/25 10:09 Gabapentin 300 Mg Capsule PO 300 mg Q12HR LANG Administration Hydrochlorothiazide 12.5 mg 03/07/25 09:00 03/14/25 10:09 Hydrochlorothiazide 12.5 Mg Capsule PO 12.5 mg DAILY LANG Administration Hydromorphone HCl 0.5 mg 03/08/25 17:12 03/14/25 08:01 Hydromorphone Hcl Inj (*Crx) 1 Mg/Ml Syr IV PUSH 0.5 mg Q2H PRN Administration Pain Rated 7-10 Hydroxyzine HCl 25 mg 03/06/25 21:38 03/13/25 20:29 Hydroxyzine Hcl 25 Mg Tablet PO 25 mg QID PRN Administration Anxiety Levothyroxine Sodium 50 mcg 03/07/25 06:30 03/14/25 06:21 Levothyroxine Sodium 50 Mcg Tablet PO 50 mcg DAILY@0630 LANG Administration Lidocaine 1 patch 03/11/25 09:00 03/14/25 10:21 Lidocaine 5% Patch TRANSDERM Not Given DAILY LANG Lisinopril 10 mg 03/07/25 09:00 03/14/25 10:09 Lisinopril 10 Mg Tablet PO 10 mg DAILY LANG Administration Loratadine 10 mg 03/06/25 21:44 Loratadine 10 Mg Tablet PO DAILY PRN Congestion Meclizine HCl 25 mg 03/06/25 21:38 03/14/25 10:09 Meclizine Hcl 25 Mg Tablet PO 25 mg TID PRN Administration Dizziness Or Vertigo Multivitamins Therapeutic 1 tablet 03/07/25 12:00 03/14/25 11:46 Multivitamins Therapeutic Tab (*Bkc) PO 1 tablet DAILY@1200 LANG Administration Ondansetron HCl 4 mg 03/06/25 17:01 03/13/25 11:09 Ondansetron Hcl Odt 4 Mg Tablet PO 4 mg Q6H PRN Administration Nausea And Vomiting Ondansetron HCl 4 mg 03/08/25 17:12 Ondansetron Inj 4 Mg/2 Ml Vial IV PUSH Q8H PRN Nausea And Vomiting Oxycodone/Acetaminophen 1 tab 03/07/25 10:39 03/14/25 11:30 Oxycodone/Acetaminophen (*Crx) 10-325 Mg Tablet PO 1 tab Q4H PRN Administration Pain Rated 7-10 Oxycodone/Acetaminophen 1 tablet 03/08/25 17:12 Oxycodone/Acetaminophen (*Crx) 5-325 Mg Tablet PO Q4H PRN Mild Pain (1-3) Oxycodone/Acetaminophen 1 tab 03/08/25 17:12 03/08/25 22:52 Oxycodone/Acetaminophen (*Crx) 10-325 Mg Tablet PO 1 tab Q4H PRN Administration Moderate Pain (4-6) Pantoprazole Sodium 40 mg 03/07/25 09:00 03/14/25 10:10 Pantoprazole 40 Mg Tablet PO 40 mg QAM LANG Administration Polyethylene Glycol 17 gm 03/06/25 17:06 Polyethylene Glycol 3350 17 Gm Powd.Pack PO QAM PRN Constipation Fluticasone/Salmeterol 2 puff 03/07/25 08:00 03/14/25 07:35 Fluticasone/Salmeterol 45-21 Mcg Inhaler 1 Puff INHALATION 2 puff DAILYRT LANG Administration Senna/Docusate Sodium 1 tab 03/08/25 17:12 03/11/25 05:35 Senna/Docusate Sodium Tablet PO 1 tab HS PRN Administration Constipation Senna/Docusate Sodium 1 tab 03/09/25 17:00 03/14/25 10:09 Senna/Docusate Sodium Tablet PO 1 tab BID LANG Administration Simvastatin 40 mg 03/07/25 09:00 03/14/25 10:09 Simvastatin 20 Mg Tablet PO 40 mg DAILY LANG Administration Vitamin D 25 mcg 03/07/25 09:00 03/14/25 10:08 Cholecalciferol (Vitamin D3) 25 Mcg (1,000 Units) Tablet PO 25 mcg DAILY LANG Administration Vitamin D 250 mcg 03/07/25 09:00 03/14/25 10:10 Cholecalciferol (Vitamin D3) 125 Mcg (5,000 Units) Tablet PO 250 mcg DAILY LANG Administration Radiology Results: ITS Impressions Chest X-Ray 03/06/25 16:17 IMPRESSION: 1: NO ACUTE CARDIOPULMONARY DISEASE. Venous Doppler Study 03/10/25 09:45 IMPRESSION: 1: No left lower extremity deep venous thrombosis. Lumbar Spine CT 03/10/25 15:39 IMPRESSION: 1. Again seen are changes of combined instrumented L5-S1 anterior and posterior spinal fusion with revision of the connection between the vertical srinath and the left S1 pedicle screw, placement of new bone graft material bilaterally and decompression with surgical drain placement at a postoperative hematoma/seroma at the laminectomy bed. 2. Redemonstration of nondisplaced fracture across the base of the right pedicle of L5 with some lucency along the cephalad margin of the right L5 pedicle screw at the level of the vertebral body. 3. Unchanged instrumented left sacroiliac arthrodesis. Lumbar Spine MRI 03/13/25 17:24 IMPRESSION: 1. Severe lumbar spondylosis. 2. Anterior and posterior fusion procedures at L5-S1. 3. Worsened fluid collection involving the surgical bed of the L5 posterior elements extending superiorly in the subcutaneous region. This finding may be a seroma, hematoma, or abscess. Labs Labs: Laboratory Results - last 24 hr 03/14/25 03/14/25 04:35 13:31 WBC 6.8 RBC 2.67 L Hgb 7.7 L Hct 25.2 L MCV 94.4 MCH 28.8 MCHC 30.6 L RDW 14.8 H Plt Count 285 MPV 10.6 H Sodium 134 L Potassium 3.8 Chloride 101 Carbon Dioxide 30 Anion Gap 3 L BUN 15 Creatinine 0.63 L Estim Creat Clear Calc 67 Estimated GFR > 60 Glucose 85 Calcium 8.8 Stl Occult Blood (IFOB) Negative Quality VTE Prophylaxis VTE prophylaxis: pharmacologic ordered
[2025-03-14 20:25] VITALS: BP 116/67; PULSE 88; RESP 20; TEMP 36.5; O2SAT 98
[2025-03-14] MEDS: diazePAM (*CRX) 5 MG TABLET PO (20:31)
[2025-03-15] VITALS (7 sets, daily range): BP systolic 108–133; BP diastolic 52–69; PULSE 83–92; RESP 16–20; TEMP 36.3–36.9; O2SAT 96–99
[2025-03-15] MEDS: oxyCODONE/ACETAMINOPHEN (*CRX) 10-325 MG TABLET 1 TAB PO ×6 (01:34→22:58)
[2025-03-15] MEDS: HYDROmorphone HCL INJ (*CRX) 1 MG/ML SYR 0.5 MG IV PUSH (03:38)
[2025-03-15 04:56] LABS: Hematocrit 24.8 % (37.0-47.0); Hemoglobin 7.5 g/dL (12.0-15.0); Mean Corpuscular HGB Conc 30.2 g/dl (32-36); Mean Corpuscular Hemoglobin 28.4 pg (26-34); Mean Corpuscular Volume 93.9 fl (80-100); Platelet Count Result 311 k/mm3 (150-375); Red Blood Count 2.64 M/mm3 (4.2-5.4); White Blood Count 6.6 K/mm3 (4.5-10.0)
[2025-03-15 05:06] LABS: Anion Gap 4 mmol/L (4-12); Blood Urea Nitrogen 19 mg/dL (7-17); Calcium 8.7 mg/dL (8.4-10.2); Carbon Dioxide 30 mmol/L (22-30); Chloride 100 mmol/L (98-107); Estimated CRCL calculation 56 ml/min; Estimated Glomerular Filt Rate > 60; Glucose 86 mg/dL (65-110); Potassium 4.5 mmol/L (3.4-5.0); Sodium 134 mmol/L (137-145)
[2025-03-15] MEDS: LEVOTHYROXINE SODIUM 50 MCG TABLET PO (05:53)
[2025-03-15] MEDS: FLUTICASONE/SALMETEROL 45-21 MCG INHALER 1 PUFF 2 PUFF INHALATION (07:57)
[2025-03-15] MEDS: diazePAM (*CRX) 5 MG TABLET PO ×3 (07:57→22:58)
--- NOTE | 2025-03-15 07:57 | PM.IMPN ---
Progress Note: A&P Assessment and Plan (1) Back pain: Qualifiers: Back pain laterality: bilateral Back pain location: low back pain Chronicity: acute Sciatica laterality: sciatica of right side Sciatica presence: with sciatica Qualified Code(s): M54.41 - Lumbago with sciatica, right side Code(s): M54.9 - Dorsalgia, unspecified Status: Acute Assessment and Plan: s/p L5-S1 posterior lumbar interbody fusion and L3-4 hemilaminectomy 01/10/[address] Silvestre. Initially complicated by post-operative pain. Plain films demonstrated good position of the hardware and interbody devices with the exception of the left srinath which seems to not be seated in the left S1 screw head per patient's neurosurgeon. CT was completed on 03/01 (see impression below) as follow-up on this imaging. Patient has also developed new difficulty urinating for the past week, historically has had urinary incontinence for years. - CT lumbar spine, 03/01: 1. Severe lower lumbar spondylosis status post interval L5 laminectomy and combined instrumented L5-S1 anterior and posterior spinal fusion. Of note there appears to be a subacute to early chronic still discernible nondisplaced coronally oriented fracture extends across the anterior base of the right L5 pedicle. 2. Although significantly more limited on CT than with MRI particularly in the presence of streak artifact related to the metallic instrumentation, there appears to be increased soft tissue density at the laminectomy bed with suggestion of moderate residual central canal stenosis at this level. Would consider further evaluation with MRI as clinically indicated. 3. Interval instrumented left sacroiliac arthrodesis. - CT was repeated on 03/10: 1. Again seen are changes of combined instrumented L5-S1 anterior and posterior spinal fusion with revision of the connection between the vertical srinath and the left S1 pedicle screw, placement of new bone graft material bilaterally and decompression with surgical drain placement at a postoperative hematoma/seroma at the laminectomy bed. 2. Redemonstration of nondisplaced fracture across the base of the right pedicle of L5 with some lucency along the cephalad margin of the right L5 pedicle screw at the level of the vertebral body. 3. Unchanged instrumented left sacroiliac arthrodesis. MRI 03/14: 1. Severe lumbar spondylosis. 2. Anterior and posterior fusion procedures at L5-S1. 3. Worsened fluid collection involving the surgical bed of the L5 posterior elements extending superiorly in the subcutaneous region. This finding may be a seroma, hematoma, or abscess. - analgesics - Gabapentin 300 mg BID, [place] 5-325 or 10-325 q4h PRN, valium 5 mg TID PRN, dilaudid 0.5 mg q2h PRN - PT/OT - neurosurgery consulted s/p lumbar wound exploration for seroma, revision of posterior instrumentation L5-S1, redo posterolateral fusion L5-S1 on 03/[address] Silvestre. Drain removed per neurosurgery. Plan for left L5-S1 foraminotomy and revision on 03/[address] Silvestre - ID consulted as possible abscess seen on the the MRI obtained on 03/14, awaiting recommendations (2) Peripheral edema: Code(s): R60.0 - Localized edema Status: Acute Assessment and Plan: Reporting new, significant BLE edema. BNP WNL for age and CXR did not demonstrate any pulmonary edema. S/p lumbar surgery in December of 2024. Possible complications noted on imaging, see above. Possible complication to lumbar surgery/immobility - neli wraps as tolerated, may d/c at night to sleep - BLE VD on 03/06 and 03/10: negative for DVT - mobilize as able. Elevate lower extremities. (3) Urinary tract infection: Code(s): N39.0 - Urinary tract infection, site not specified Status: Acute Assessment and Plan: - UA with positive nitrates, 1+ LE, 6-10 WBC - patient reports urinary hesitancy - previous culture with pansensitive Klebsiella - start IV Rocephin - urine culture grew pansenstive ecoli Completed antibiotic course. (4) Hypertension: Qualifiers: Hypertension type: primary hypertension Qualified Code(s): I10 - Essential (primary) hypertension Code(s): I10 - Essential (primary) hypertension Status: Chronic Assessment and Plan: - continue home medications: HCTZ 12.5 mg daily , lisinopril 10 mg daily - blood pressures stable, continue to monitor (5) Anemia: Code(s): D64.9 - Anemia, unspecified Status: Acute Assessment and Plan: - Hgb 11.7 7/3. 9.5 on admission, trended down to 8.6 - may have component of hemodilution as patient was on fluids at that time - denied signs of bleeding. unable to collect stool but reported no blood noted. - check iron studies - monitor CBC. Transfuse Hgb <7. iron panel showing deficiency, iron replacement stated no c/o dizziness, lightheadedness H/H remains stable, continue to monitor closely Time Spent With Patient Time with patient: 25 - 35 minutes Subjective Date/time seen: 03/15/25 07:57 Interval history: 75 y/o F with PMH of mitral valve prolapse, hypothyroidism, hyperlipidemia, asthma, and hypertension presents here with back pain and lower extremity edema. Patient is pleasant lying in bed. She continues to endorse pain to the left lower extremity that she describes as a stabbing that wraps around to the pretibial region. She notes that the pain then causes slight nausea but no vomiting. She remains on the pain regimen which she says is covering okay. She is scheduled to return to the OR tomorrow with neurosurgery for revision. She has no other complaints denying chest pain, palpitations, shortness of breath, and abdominal pain. Review of Systems Review of Systems: All systems reviewed & are unremarkable except as noted in HPI and below Exam Narrative: AF HR 83 RR 20 Spo2 98 BP 108/57 General: female in no acute respiratory distress who is nontoxic appearing, lying semi recumbent in bed. HEENT: Normocephalic. Atraumatic. Extraocular movement intact. Sclera clear and anicteric. No facial asymmetry. Chest: Lungs are clear to auscultation bilaterally. No wheezes or crackles. CV: Heart was regular rate and rhythm. Abd: Abdomen was soft. Nontender. Nondistended. Positive bowel sounds. Ext: No clubbing, cyanosis. 1+ Edema to left lower extremity. DP pulses bilaterally. Neuro: Patient is alert. Sensation intact. Speech is clear. Objective Data Vital Signs Vital Signs: Vital Signs - 24 hr 03/14/25 07:59 03/14/25 08:01 03/14/25 10:05 Temperature Pulse Rate 95 95 83 Respiratory Rate 18 18 Blood Pressure 141/68 H 113/89 Pulse Oximetry 98 98 Oxygen Delivery Room Air Fraction of Inspired Oxygen 21 03/14/25 14:00 03/14/25 20:25 03/15/25 04:46 Temperature 97 F L 97.7 F 97.6 F Pulse Rate 97 88 83 Respiratory Rate 20 20 20 Blood Pressure 110/76 116/67 111/60 Pulse Oximetry 97 98 97 Oxygen Delivery Fraction of Inspired Oxygen 03/15/25 07:56 Temperature 97.5 F L Pulse Rate 86 Respiratory Rate 16 Blood Pressure 133/69 Pulse Oximetry 98 Oxygen Delivery Fraction of Inspired Oxygen Intake/Output Intake/Output: Intake & Output 03/12/25 03/13/25 03/14/25 03/15/25 23:59 23:59 23:59 23:59 Intake Total 510 1820 1120 390 Output Total 900 2250 1850 1400 Balance -390 -430 -730 -1010 Meds/Results Medications: Active Medications Generic Name Dose Route Start Last Admin Trade Name Freq PRN Reason Stop Dose Admin Acetaminophen 1,000 mg 03/06/25 17:01 Acetaminophen 500 Mg Tablet PO Q6H PRN Pain Rated 1-3 Al Hydrox/Mg Hydrox/Simethicone 20 ml 03/08/25 17:12 Mag Hydrox/Al Hydrox/Simeth 30 Ml Udc PO Q4H PRN Indigestion/Heartburn Albuterol 1 puff 03/06/25 21:53 Albuterol Sulfate (*Sp) Aerosol 1 Puff INHALATION Q4-6H PRN Wheezing Bisacodyl 10 mg 03/08/25 17:12 Bisacodyl 10 Mg Suppository RECTAL DAILY PRN Constipation Calcium Carbonate 500 mg 03/07/25 12:00 03/14/25 11:46 Calcium Carbonate (Oscal) 500 Mg Tablet PO 500 mg DAILY@1200 [facility] Administration Diazepam 5 mg 03/11/25 17:10 03/14/25 20:31 Diazepam (*Crx) 5 Mg Tablet PO 5 mg TID PRN Administration Muscle Spasm Docusate Sodium 100 mg 03/06/25 17:06 Docusate Sodium 100 Mg Capsule PO Q12H PRN Constipation Docusate Sodium 100 mg 03/08/25 21:00 03/14/25 20:30 Docusate Sodium 100 Mg Capsule PO Not Given Q12HR LANG Enoxaparin Sodium 40 mg 03/12/25 13:40 03/14/25 10:10 Enoxaparin 40 Mg/0.4 Ml Syringe SUB-Q 40 mg DAILY LANG Administration Gabapentin 300 mg 03/06/25 21:40 03/14/25 20:30 Gabapentin 300 Mg Capsule PO 300 mg Q12HR LANG Administration Hydrochlorothiazide 12.5 mg 03/07/25 09:00 03/14/25 10:09 Hydrochlorothiazide 12.5 Mg Capsule PO 12.5 mg DAILY LANG Administration Hydromorphone HCl 0.5 mg 03/08/25 17:12 03/15/25 03:38 Hydromorphone Hcl Inj (*Crx) 1 Mg/Ml Syr IV PUSH 0.5 mg Q2H PRN Administration Pain Rated 7-10 Hydroxyzine HCl 25 mg 03/06/25 21:38 03/14/25 20:31 Hydroxyzine Hcl 25 Mg Tablet PO 25 mg QID PRN Administration Anxiety Levothyroxine Sodium 50 mcg 03/07/25 06:30 03/15/25 05:53 Levothyroxine Sodium 50 Mcg Tablet PO 50 mcg DAILY@0630 [facility] Administration Lidocaine 1 patch 03/11/25 09:00 03/14/25 10:21 Lidocaine 5% Patch TRANSDERM Not Given DAILY [facility] Lisinopril 10 mg 03/07/25 09:00 03/14/25 10:09 Lisinopril 10 Mg Tablet PO 10 mg DAILY [facility] Administration Loratadine 10 mg 03/06/25 21:44 Loratadine 10 Mg Tablet PO DAILY PRN Congestion Meclizine HCl 25 mg 03/06/25 21:38 03/14/25 10:09 Meclizine Hcl 25 Mg Tablet PO 25 mg TID PRN Administration Dizziness Or Vertigo Multivitamins Therapeutic 1 tablet 03/07/25 12:00 03/14/25 11:46 Multivitamins Therapeutic Tab (*Bkc) PO 1 tablet DAILY@1200 [facility] Administration Ondansetron HCl 4 mg 03/06/25 17:01 03/13/25 11:09 Ondansetron Hcl Odt 4 Mg Tablet PO 4 mg Q6H PRN Administration Nausea And Vomiting Ondansetron HCl 4 mg 03/08/25 17:12 Ondansetron Inj 4 Mg/2 Ml Vial IV PUSH Q8H PRN Nausea And Vomiting Oxycodone/Acetaminophen 1 tab 03/07/25 10:39 03/15/25 05:53 Oxycodone/Acetaminophen (*Crx) 10-325 Mg Tablet PO 1 tab Q4H PRN Administration Pain Rated 7-10 Oxycodone/Acetaminophen 1 tablet 03/08/25 17:12 Oxycodone/Acetaminophen (*Crx) 5-325 Mg Tablet PO Q4H PRN Mild Pain (1-3) Oxycodone/Acetaminophen 1 tab 03/08/25 17:12 03/08/25 22:52 Oxycodone/Acetaminophen (*Crx) 10-325 Mg Tablet PO 1 tab Q4H PRN Administration Moderate Pain (4-6) Pantoprazole Sodium 40 mg 03/07/25 09:00 03/14/25 10:10 Pantoprazole 40 Mg Tablet PO 40 mg QAM LANG Administration Polyethylene Glycol 17 gm 03/06/25 17:06 Polyethylene Glycol 3350 17 Gm Powd.Pack PO QAM PRN Constipation Fluticasone/Salmeterol 2 puff 03/07/25 08:00 03/14/25 07:35 Fluticasone/Salmeterol 45-21 Mcg Inhaler 1 Puff INHALATION 2 puff DAILYRT LANG Administration Senna/Docusate Sodium 1 tab 03/08/25 17:12 03/11/25 05:35 Senna/Docusate Sodium Tablet PO 1 tab HS PRN Administration Constipation Senna/Docusate Sodium 1 tab 03/09/25 17:00 03/14/25 17:56 Senna/Docusate Sodium Tablet PO Not Given BID LANG Simvastatin 40 mg 03/07/25 09:00 03/14/25 10:09 Simvastatin 20 Mg Tablet PO 40 mg DAILY LANG Administration Vitamin D 25 mcg 03/07/25 09:00 03/14/25 10:08 Cholecalciferol (Vitamin D3) 25 Mcg (1,000 Units) Tablet PO 25 mcg DAILY LANG Administration Vitamin D 250 mcg 03/07/25 09:00 03/14/25 10:10 Cholecalciferol (Vitamin D3) 125 Mcg (5,000 Units) Tablet PO 250 mcg DAILY LANG Administration Radiology Results: ITS Impressions Chest X-Ray 03/06/25 16:17 IMPRESSION: 1: NO ACUTE CARDIOPULMONARY DISEASE. Venous Doppler Study 03/10/25 09:45 IMPRESSION: 1: No left lower extremity deep venous thrombosis. Lumbar Spine CT 03/10/25 15:39 IMPRESSION: 1. Again seen are changes of combined instrumented L5-S1 anterior and posterior spinal fusion with revision of the connection between the vertical srinath and the left S1 pedicle screw, placement of new bone graft material bilaterally and decompression with surgical drain placement at a postoperative hematoma/seroma at the laminectomy bed. 2. Redemonstration of nondisplaced fracture across the base of the right pedicle of L5 with some lucency along the cephalad margin of the right L5 pedicle screw at the level of the vertebral body. 3. Unchanged instrumented left sacroiliac arthrodesis. Lumbar Spine MRI 03/13/25 17:24 IMPRESSION: 1. Severe lumbar spondylosis. 2. Anterior and posterior fusion procedures at L5-S1. 3. Worsened fluid collection involving the surgical bed of the L5 posterior elements extending superiorly in the subcutaneous region. This finding may be a seroma, hematoma, or abscess. Labs Labs: Laboratory Results - last 24 hr 03/14/25 03/15/25 13:31 04:24 WBC 6.6 RBC 2.64 L Hgb 7.5 L Hct 24.8 L MCV 93.9 MCH 28.4 MCHC 30.2 L RDW 14.8 H Plt Count 311 MPV 10.8 H Sodium 134 L Potassium 4.5 Chloride 100 Carbon Dioxide 30 Anion Gap 4 BUN 19 H Creatinine 0.76 Estim Creat Clear Calc 56 Estimated GFR > 60 Glucose 86 Calcium 8.7 Stl Occult Blood (IFOB) Negative Quality VTE Prophylaxis VTE prophylaxis: pharmacologic ordered
[2025-03-15] MEDS: CHOLECALCIFEROL (VITAMIN D3) 125 MCG (5,000 UNITS) TABLET 250 MCG PO (08:00)
[2025-03-15] MEDS: PANTOPRAZOLE 40 MG TABLET PO (08:00)
[2025-03-15] MEDS: CHOLECALCIFEROL (VITAMIN D3) 25 MCG (1,000 UNITS) TABLET PO (08:01)
[2025-03-15] MEDS: GABAPENTIN 300 MG CAPSULE PO ×2 (08:01→20:24)
[2025-03-15] MEDS: SIMVASTATIN 20 MG TABLET 40 MG PO (08:01)
[2025-03-15] MEDS: ENOXAPARIN 40 MG/0.4 ML SYRINGE SUB-Q (08:02)
[2025-03-15] MEDS: MULTIVITAMINS THERAPEUTIC TAB (*BKC) 1 TABLET PO (12:17)
[2025-03-15] MEDS: CALCIUM CARBONATE (OSCAL) 500 MG TABLET PO (12:17)
--- NOTE | 2025-03-15 17:52 | WPDIDCN ---
Assessment and Plan Assessment and plan (1) Inflammatory spondylopathy of sacral region: Code(s): M46.98 - Unspecified inflammatory spondylopathy, sacral and sacrococcygeal region Status: Acute (2) Acute post-operative pain: Code(s): G89.18 - Other acute postprocedural pain Status: Acute (3) Hematoma following procedure: Status: Acute (4) Urinary tract infection: Code(s): N39.0 - Urinary tract infection, site not specified Status: Acute (5) Edema of left lower extremity: Code(s): R60.0 - Localized edema Status: Acute (6) Antibiotic causing adverse effect: Code(s): T36.95XA - Adverse effect of unspecified systemic antibiotic, initial encounter Status: Acute Plan # Postoperative lumbosacral recurrent fluid collection. -- status post surgical site revision with evacuation 03/08/2025 but with recurrence. -- seroma/hematoma without clinical evidence of abscess noted at that time. In addition, she was without fever, leukocytosis, or elevated CRP at the time of presentation and remains without fever or leukocytosis since. -- recurrent fluid collection may again represent seroma/hematoma but can not completely rule out the possibility of secondary infected fluid collection (abscess). However, might expect fever and or leukocytosis if that were the case. -- plan for further surgical revision 03/16/2025. # Status post treatment for E coli UTI on presentation. --completed treatment with ceftriaxone. # Reported hives allergy to penicillin and additional allergy to sulfa medications. -- proven to tolerate cephalosporins. Plan: -- recommend holding on antibiotics at this time but would send fluid encountered at time of 03/16/2025 revision for routine Gram stain and culture. Note: Order placed for abscess culture tomorrow. This is to be obtained during surgery- -not a routine floor nurse collection order. -- upon complete min of revision with cultures would begin empiric cefepime, metronidazole, and vancomycin. -- further recommendations to follow. Thank you for the consult. Patient was seen via video telehealth consultation with the assistance of staff. Chart, data, and patient independently reviewed. Patient was located at [facility] while I was located in my [place] office. Received verbal consent from patient. HPI Data of Consult Date/Time: 03/15/25 17:52 Requesting Physician: Santos Sanchez MD Primary Care Provider: Juan Shrestha, Consult Narrative Reason for consult: Concern for postoperative abscess. Narrative: Yaima Gutierrez is a 75 year old female presenting 03/06/2025 for increasing back pain after recent lumbar surgery. Past medical history significant for hypertension, asthma, mitral valve prolapse, hypothyroidism and hyperlipidemia. on 01/10/2025 she underwent L5-S1 complete laminectomy and bilateral facetectomy, L5-S1 complete diskectomy and interbody arthrodesis utilizing titanium interbody devices in local allograft, L5-S1 pedicle screw instrumentation and left L3-L4 hemilaminectomy. Postoperative and post hospitalization state complicated by lower back pain with radiation to the right buttock and left sacral area and bilateral legs. This was associated with increased left leg swelling. Readmitted 03/06/2025. Workup identified fluid collection at the laminectomy site. No significant fever or leukocytosis on presentation. CRP was 0.7. Urinalysis at presentation with 6-10 wbc's and urine culture eventually grew E coli and for this she received a course of ceftriaxone. On 03/08/2025 she underwent lumbar wound exploration for hematoma/ seroma with revision of posterior instrumentation at L5-S1 and redo of posterolateral L5-S1. drain was initially placed but has since been removed. No available cultures. With continued swelling at the surgical site as well as back and lower extremity pain she underwent 03/10/2025 CT scan which showed redemonstration of nondisplaced fracture across the base of the right pedicle of L5 with some lucency along the cephalad margin of the right L5 pedicle screw at the level of the vertebral body and unchanged instrumentation of the left sacroiliac arthrodesis. Lumbar MRI performed on the same day showed severe lumbar spondylosis, anterior and posterior fusion procedures at L5-S1, and worsen fluid collection involving the surgical bed of the L5 posterior elements extending superiorly in the subcutaneous region. It was felt that this finding could represent seroma, hematoma, or abscess. Bilateral lower extremity Doppler studies without evidence of DVT. For the possibility that this fluid collection could represent abscess and infectious disease consult has been requested. She remains afebrile and with normal white blood cell count. Lumbar surgical site with edema and tenderness but without erythema. Drainage from prior drain site has diminished over time. She remains off of antibiotics. Left L5-S1 foraminotomy and revision of posterior instrumentation planned for 03/16/2025. Review of Systems Review of Systems: All systems reviewed & are unremarkable except as noted in HPI and below PMFSH Past Medical History Medical History MVP (mitral valve prolapse) said she was having spells and then was put on blood thinners because of her MVP and now she doesn't have these spells Skin cancer Anxiety Hypothyroidism Hyperlipidemia Hypertension Asthma Surgical History Surgical History Previous back surgery History of hysterectomy History of tonsillectomy History of bladder surgery History of lumbar discectomy History of lumbar laminectomy History of appendectomy Family History Family History Mother Diabetes mellitus Hypertension Heart problem Thyroid disorder Social History Social History Years smoked: 35 Smoking status: Never smoker Second hand tobacco smoke exposure: Yes Alcohol intake: never Alcohol use details: Rarely Substance use: never Substance use type: does not use Do You Feel Safe in your Home?: Yes Lack of Transportation: No Lack of Food: Never True Current Housing: I Have Housing Concerned About Future Housing: No Difficulty Paying Gas/Electric Bills: No Difficulty Paying for Meds: No Currently Unemployed: No Education: Decline to Answer Difficulty w/ Childcare or Family Care: No Living arrangements: with family Additional living arrangements comments: LIVES WITH DISABLED SPOUSE Spiritual care concerns: No Meds Home Medications and Allergies Home Medications ?Medication ?Instructions ?Recorded ?Confirmed ?Type albuterol sulfate 90 mcg/actuation 1 inh inhalation Q4-6H PRN Wheezing 04/13/23 03/06/25 History breath activated powder inhaler calcium carbonate (Calcium 600) 600 mg PO DAILY 04/13/23 03/06/25 History cetirizine 10 mg tablet 10 mg PO DAILY PRN Congestion 04/13/23 03/06/25 History gabapentin 300 mg capsule 300 mg PO Q12H 04/13/23 03/06/25 History hydroxyzine HCl 25 mg tablet 25 mg PO QID PRN Anxiety 04/13/23 03/06/25 History levothyroxine 50 mcg capsule 50 mcg PO DAILY 04/13/23 03/06/25 History meclizine 25 mg tablet 25 mg PO TID PRN Dizziness Or 04/13/23 03/06/25 History Vertigo pantoprazole 40 mg tablet,delayed 40 mg PO QAM 04/13/23 03/06/25 History release simvastatin 40 mg tablet 40 mg PO DAILY 04/13/23 03/06/25 History cholecalciferol (vitamin D3) 250 250 mcg PO DAILY 07/27/23 03/06/25 History mcg (10,000 unit) capsule multivitamin 1 tablet PO DAILY 07/27/23 03/06/25 History clopidogrel 75 mg tablet 75 mg PO DAILY 11/23/23 03/08/25 History Held on 01/14/25. Instructions: Resume on 01/21/25. budesonide 6 mg capsule,extended 6 mg PO DAILY 01/07/24 03/06/25 History release cholecalciferol (vitamin D3) 25 25 mcg PO DAILY 07/11/24 03/06/25 History mcg (1,000 unit) capsule hydrochlorothiazide 12.5 mg capsule 12.5 mg PO DAILY 07/11/24 03/06/25 History lisinopril 10 mg tablet 10 mg PO DAILY 07/11/24 03/06/25 History cyclobenzaprine 10 mg tablet 10 mg PO TID PRN Muscle Spasms 10 07/20/24 03/06/25 Rx days #30 tabs budesonide-formoterol HFA 80 2 inh inhalation DAILY 12/29/24 03/06/25 History mcg-4.5 mcg/actuation aerosol inhaler (Symbicort) meloxicam 15 mg tablet 15 mg PO DAILY 12/29/24 03/06/25 History ondansetron 4 mg disintegrating 4 mg PO Q6H PRN nausea and 02/21/25 03/06/25 Rx tablet vomiting #30 tabs cyclobenzaprine 10 mg tablet 10 mg PO TID PRN muscle spasm #20 03/01/25 03/06/25 Rx tabs oxycodone-acetaminophen 5 mg-325 1 - 2 tablet PO Q6H PRN pain #40 03/02/25 03/06/25 Rx mg tablet tabs Allergies Allergy/AdvReac Type Severity Reaction Status Date / Time Fish Containing Products Allergy Severe Vomiting Verified 03/08/25 14:08 latex Allergy Severe Itching Verified 03/08/25 14:08 Penicillins Allergy Severe Hives Verified 03/08/25 14:08 codeine Allergy Mild Hives AND Verified 03/08/25 14:08 VOMITING strawberry Allergy Mild Hives Verified 03/08/25 14:08 hydrocodone (From Vicodin) AdvReac Severe Vomiting Verified 03/08/25 14:08 meperidine (From Demerol) AdvReac Severe Vomiting Verified 03/08/25 14:08 tetanus and diphtheria AdvReac Severe Swelling Verified 03/08/25 14:08 toxoids kiwi AdvReac Mild Hives Verified 03/08/25 14:08 Sulfa (Sulfonamide AdvReac Mild Vomiting Verified 03/08/25 14:08 Antibiotics) tramadol AdvReac Mild Nausea Verified 03/08/25 14:08 Vital Signs Vital Signs - 24 hr 03/14/25 20:25 03/15/25 04:46 03/15/25 07:56 Temperature 97.7 F 97.6 F 97.5 F L Pulse Rate 88 83 86 Respiratory Rate 20 20 16 Blood Pressure 116/67 111/60 133/69 Pulse Oximetry 98 97 98 Oxygen Delivery Fraction of Inspired Oxygen 03/15/25 07:58 03/15/25 08:00 03/15/25 14:00 Temperature 97.3 F L Pulse Rate 86 83 Respiratory Rate 16 20 Blood Pressure 108/57 L Pulse Oximetry 98 98 98 Oxygen Delivery Room Air Autopap Fraction of Inspired Oxygen 21 Exam Narrative: Patient is awake and alert and lying in bed. Normal weight. Nontoxic but uncomfortable because of continued lower back and lower extremity pain. No respiratory distress. No tachycardia. Abdomen is nondistended and she is without diarrhea. Back lumbar region with well-approximated surgical incision. Area with edema but no erythema. Prior drain tube site review with scant nonpurulent drainage at this time. Positive tenderness. Bilateral lower extremities, left greater than right, with edema. Results Labs 03/15/25 04:24 03/15/25 04:24 Labs: Short CBC 03/15/25 Range/Units 04:24 WBC 6.6 (4.5-10.0) K/mm3 Hgb 7.5 L (12.0-15.0) g/dL Hct 24.8 L (37.0-47.0) % Plt Count 311 (150-375) k/mm3 [facility] 03/15/25 04:24 Sodium 134 L Potassium 4.5 Chloride 100 Carbon Dioxide 30 BUN 19 H Creatinine 0.76 Glucose 86 Calcium 8.7
--- NOTE | 2025-03-15 18:59 | P.PNNEUSUR_ITS ---
Progress Note: A&P Assessment and Plan (1) Foraminal stenosis of lumbosacral region: Code(s): M48.07 - Spinal stenosis, lumbosacral region Status: Acute Plan Yaima may have recurrent or residual stenosis of the left L5-S1 neural foramen. As she has weakness and persistent pain I have recommended that we explore this and observe the L5 nerve root and make sure that nothing is pressing on it from the disc space for above. This is a curious finding and very curious course and I do not quite understand it but we will perform the exploration. We are scheduled for at 2:30 a.m. in the afternoon. Subjective Date/time seen: 03/14/25 18:59 Interval history: Yaima is doing slightly better today but persists in having pain in the left lower extremity that is limiting and distracting for her and at times quite severe. While she is moving her left ankle and toes in dorsiflexion they do still appear weaker albeit maybe slightly improved. She has not having any new issues. Her swelling is slightly decreased but still persistent. Exam Narrative: Strength is diminished in the left dorsiflexors and EHL. There is persistent swelling in the left lower extremity. Sensation appears to be intact in the bilateral lower extremities. Her wound is clean, dry and intact. Review of studies: MRI of the lumbar spine was personally reviewed by me. This demonstrates stenosis of the foramen on the left at L5-S1 either related to soft tissue or movement of the interbody device posteriorly. Objective Data Vital Signs Vital Signs: Vital Signs - 24 hr 03/14/25 20:25 03/15/25 04:46 03/15/25 07:56 Temperature 97.7 F 97.6 F 97.5 F L Pulse Rate 88 83 86 Respiratory Rate 20 20 16 Blood Pressure 116/67 111/60 133/69 Pulse Oximetry 98 97 98 Oxygen Delivery Fraction of Inspired Oxygen 03/15/25 07:58 03/15/25 08:00 03/15/25 14:00 Temperature 97.3 F L Pulse Rate 86 83 Respiratory Rate 16 20 Blood Pressure 108/57 L Pulse Oximetry 98 98 98 Oxygen Delivery Room Air Autopap Fraction of Inspired Oxygen 21 03/15/25 18:48 Temperature 98.1 F Pulse Rate 92 Respiratory Rate 18 Blood Pressure 123/65 Pulse Oximetry 99 Oxygen Delivery Fraction of Inspired Oxygen Intake/Output Intake/Output: Intake & Output 03/12/25 03/13/25 03/14/25 03/15/25 23:59 23:59 23:59 23:59 Intake Total 510 1820 1120 650 Output Total 900 2250 1850 1900 Balance -390 -430 -730 -2070 Meds/Results Medications: Active Medications Generic Name Dose Route Start Last Admin Trade Name Freq PRN Reason Stop Dose Admin Acetaminophen 1,000 mg 03/06/25 17:01 Acetaminophen 500 Mg Tablet PO Q6H PRN Pain Rated 1-3 Al Hydrox/Mg Hydrox/Simethicone 20 ml 03/08/25 17:12 Mag Hydrox/Al Hydrox/Simeth 30 Ml Udc PO Q4H PRN Indigestion/Heartburn Albuterol 1 puff 03/06/25 21:53 Albuterol Sulfate (*Sp) Aerosol 1 Puff INHALATION Q4-6H PRN Wheezing Bisacodyl 10 mg 03/08/25 17:12 Bisacodyl 10 Mg Suppository RECTAL DAILY PRN Constipation Calcium Carbonate 500 mg 03/07/25 12:00 03/15/25 12:17 Calcium Carbonate (Oscal) 500 Mg Tablet PO 500 mg DAILY@1200 COUNT INCLUDES [facility] Administration Diazepam 5 mg 03/11/25 17:10 03/15/25 18:17 Diazepam (*Crx) 5 Mg Tablet PO 5 mg TID PRN Administration Muscle Spasm Docusate Sodium 100 mg 03/06/25 17:06 Docusate Sodium 100 Mg Capsule PO Q12H PRN Constipation Docusate Sodium 100 mg 03/08/25 21:00 03/15/25 08:02 Docusate Sodium 100 Mg Capsule PO Not Given Q12HR LANG Enoxaparin Sodium 40 mg 03/12/25 13:40 03/15/25 08:02 Enoxaparin 40 Mg/0.4 Ml Syringe SUB-Q 40 mg DAILY LANG Administration Gabapentin 300 mg 03/06/25 21:40 03/15/25 08:01 Gabapentin 300 Mg Capsule PO 300 mg Q12HR LANG Administration Hydrochlorothiazide 12.5 mg 03/07/25 09:00 03/15/25 08:00 Hydrochlorothiazide 12.5 Mg Capsule PO 12.5 mg DAILY LANG Administration Hydromorphone HCl 0.5 mg 03/08/25 17:12 03/15/25 03:38 Hydromorphone Hcl Inj (*Crx) 1 Mg/Ml Syr IV PUSH 0.5 mg Q2H PRN Administration Pain Rated 7-10 Hydroxyzine HCl 25 mg 03/06/25 21:38 03/15/25 13:17 Hydroxyzine Hcl 25 Mg Tablet PO 25 mg QID PRN Administration Anxiety Levothyroxine Sodium 50 mcg 03/07/25 06:30 03/15/25 05:53 Levothyroxine Sodium 50 Mcg Tablet PO 50 mcg DAILY@0630 LANG Administration Lidocaine 1 patch 03/11/25 09:00 03/15/25 08:02 Lidocaine 5% Patch TRANSDERM Not Given DAILY LANG Lisinopril 10 mg 03/07/25 09:00 03/15/25 08:00 Lisinopril 10 Mg Tablet PO 10 mg DAILY LANG Administration Loratadine 10 mg 03/06/25 21:44 Loratadine 10 Mg Tablet PO DAILY PRN Congestion Meclizine HCl 25 mg 03/06/25 21:38 03/14/25 10:09 Meclizine Hcl 25 Mg Tablet PO 25 mg TID PRN Administration Dizziness Or Vertigo Multivitamins Therapeutic 1 tablet 03/07/25 12:00 03/15/25 12:17 Multivitamins Therapeutic Tab (*Bkc) PO 1 tablet DAILY@1200 COUNT INCLUDES THE [facility] Administration Ondansetron HCl 4 mg 03/06/25 17:01 03/13/25 11:09 Ondansetron Hcl Odt 4 Mg Tablet PO 4 mg Q6H PRN Administration Nausea And Vomiting Ondansetron HCl 4 mg 03/08/25 17:12 Ondansetron Inj 4 Mg/2 Ml Vial IV PUSH Q8H PRN Nausea And Vomiting Oxycodone/Acetaminophen 1 tab 03/07/25 10:39 03/15/25 18:50 Oxycodone/Acetaminophen (*Crx) 10-325 Mg Tablet PO 1 tab Q4H PRN Administration Pain Rated 7-10 Oxycodone/Acetaminophen 1 tablet 03/08/25 17:12 Oxycodone/Acetaminophen (*Crx) 5-325 Mg Tablet PO Q4H PRN Mild Pain (1-3) Oxycodone/Acetaminophen 1 tab 03/08/25 17:12 03/08/25 22:52 Oxycodone/Acetaminophen (*Crx) 10-325 Mg Tablet PO 1 tab Q4H PRN Administration Moderate Pain (4-6) Pantoprazole Sodium 40 mg 03/07/25 09:00 03/15/25 08:00 Pantoprazole 40 Mg Tablet PO 40 mg QAM LANG Administration Polyethylene Glycol 17 gm 03/06/25 17:06 Polyethylene Glycol 3350 17 Gm Powd.Pack PO QAM PRN Constipation Fluticasone/Salmeterol 2 puff 03/07/25 08:00 03/15/25 07:57 Fluticasone/Salmeterol 45-21 Mcg Inhaler 1 Puff INHALATION 2 puff DAILYRT LANG Administration Senna/Docusate Sodium 1 tab 03/08/25 17:12 03/11/25 05:35 Senna/Docusate Sodium Tablet PO 1 tab HS PRN Administration Constipation Senna/Docusate Sodium 1 tab 03/09/25 17:00 03/15/25 16:30 Senna/Docusate Sodium Tablet PO Not Given BID LANG Simvastatin 40 mg 03/07/25 09:00 03/15/25 08:01 Simvastatin 20 Mg Tablet PO 40 mg DAILY LANG Administration Vitamin D 25 mcg 03/07/25 09:00 03/15/25 08:01 Cholecalciferol (Vitamin D3) 25 Mcg (1,000 Units) Tablet PO 25 mcg DAILY LANG Administration Vitamin D 250 mcg 03/07/25 09:00 03/15/25 08:00 Cholecalciferol (Vitamin D3) 125 Mcg (5,000 Units) Tablet PO 250 mcg DAILY LANG Administration Radiology Results: ITS Impressions Chest X-Ray 03/06/25 16:17 IMPRESSION: 1: NO ACUTE CARDIOPULMONARY DISEASE. Venous Doppler Study 03/10/25 09:45 IMPRESSION: 1: No left lower extremity deep venous thrombosis. Lumbar Spine CT 03/10/25 15:39 IMPRESSION: 1. Again seen are changes of combined instrumented L5-S1 anterior and posterior spinal fusion with revision of the connection between the vertical srinath and the left S1 pedicle screw, placement of new bone graft material bilaterally and decompression with surgical drain placement at a postoperative hematoma/seroma at the laminectomy bed. 2. Redemonstration of nondisplaced fracture across the base of the right pedicle of L5 with some lucency along the cephalad margin of the right L5 pedicle screw at the level of the vertebral body. 3. Unchanged instrumented left sacroiliac arthrodesis. Lumbar Spine MRI 03/13/25 17:24 IMPRESSION: 1. Severe lumbar spondylosis. 2. Anterior and posterior fusion procedures at L5-S1. 3. Worsened fluid collection involving the surgical bed of the L5 posterior elements extending superiorly in the subcutaneous region. This finding may be a seroma, hematoma, or abscess. Labs Labs: Laboratory Results - last 24 hr 03/15/25 04:24 WBC 6.6 RBC 2.64 L Hgb 7.5 L Hct 24.8 L MCV 93.9 MCH 28.4 MCHC 30.2 L RDW 14.8 H Plt Count 311 MPV 10.8 H Sodium 134 L Potassium 4.5 Chloride 100 Carbon Dioxide 30 Anion Gap 4 BUN 19 H Creatinine 0.76 Estim Creat Clear Calc 56 Estimated GFR > 60 Glucose 86 Calcium 8.7
[2025-03-16] VITALS (12 sets, daily range): BP systolic 122–155; BP diastolic 62–83; PULSE 80–98; RESP 10–20; TEMP 36.3–36.9; O2SAT 93–100
[2025-03-16] MEDS: LEVOTHYROXINE SODIUM 50 MCG TABLET PO (04:58)
[2025-03-16] MEDS: oxyCODONE/ACETAMINOPHEN (*CRX) 10-325 MG TABLET 1 TAB PO ×4 (04:58→22:55)
[2025-03-16 05:27] LABS: Hematocrit 26.4 % (37.0-47.0); Hemoglobin 8.2 g/dL (12.0-15.0); Mean Corpuscular HGB Conc 31.1 g/dl (32-36); Mean Corpuscular Hemoglobin 29.2 pg (26-34); Mean Corpuscular Volume 94.0 fl (80-100); Platelet Count Result 323 k/mm3 (150-375); Red Blood Count 2.81 M/mm3 (4.2-5.4); White Blood Count 6.5 K/mm3 (4.5-10.0)
[2025-03-16 05:51] LABS: Alanine Aminotransferase 27 U/L (6-35); Albumin Level 3.2 g/dL (3.5-5.1); Alkaline Phosphatase 90 U/L (38-126); Anion Gap 2 mmol/L (4-12); Aspartate Amino Transferase 34 U/L (14-36); Bilirubin,Total 0.3 mg/dL (0.2-1.3); Blood Urea Nitrogen 18 mg/dL (7-17); Calcium 8.9 mg/dL (8.4-10.2); Carbon Dioxide 32 mmol/L (22-30); Chloride 101 mmol/L (98-107); Estimated CRCL calculation 58 ml/min; Estimated Glomerular Filt Rate > 60; Glucose 86 mg/dL (65-110); Potassium 4.8 mmol/L (3.4-5.0); Sodium 135 mmol/L (137-145); Total Protein 5.9 g/dL (6.3-8.2)
[2025-03-16] MEDS: HYDROmorphone HCL INJ (*CRX) 1 MG/ML SYR 0.5 MG IV PUSH ×4 (06:10→14:32)
--- NOTE | 2025-03-16 07:35 | PM.IMPN ---
Progress Note: A&P Assessment and Plan (1) Back pain: Qualifiers: Back pain laterality: bilateral Back pain location: low back pain Chronicity: acute Sciatica laterality: sciatica of right side Sciatica presence: with sciatica Qualified Code(s): M54.41 - Lumbago with sciatica, right side Code(s): M54.9 - Dorsalgia, unspecified Status: Acute Assessment and Plan: s/p L5-S1 posterior lumbar interbody fusion and L3-4 hemilaminectomy 01/10/[address] Silvestre. Initially complicated by post-operative pain. Plain films demonstrated good position of the hardware and interbody devices with the exception of the left srinath which seems to not be seated in the left S1 screw head per patient's neurosurgeon. CT was completed on 03/01 (see impression below) as follow-up on this imaging. Patient has also developed new difficulty urinating for the past week, historically has had urinary incontinence for years. - CT lumbar spine, 03/01: 1. Severe lower lumbar spondylosis status post interval L5 laminectomy and combined instrumented L5-S1 anterior and posterior spinal fusion. Of note there appears to be a subacute to early chronic still discernible nondisplaced coronally oriented fracture extends across the anterior base of the right L5 pedicle. 2. Although significantly more limited on CT than with MRI particularly in the presence of streak artifact related to the metallic instrumentation, there appears to be increased soft tissue density at the laminectomy bed with suggestion of moderate residual central canal stenosis at this level. Would consider further evaluation with MRI as clinically indicated. 3. Interval instrumented left sacroiliac arthrodesis. - CT was repeated on 03/10: 1. Again seen are changes of combined instrumented L5-S1 anterior and posterior spinal fusion with revision of the connection between the vertical srinath and the left S1 pedicle screw, placement of new bone graft material bilaterally and decompression with surgical drain placement at a postoperative hematoma/seroma at the laminectomy bed. 2. Redemonstration of nondisplaced fracture across the base of the right pedicle of L5 with some lucency along the cephalad margin of the right L5 pedicle screw at the level of the vertebral body. 3. Unchanged instrumented left sacroiliac arthrodesis. MRI 03/14: 1. Severe lumbar spondylosis. 2. Anterior and posterior fusion procedures at L5-S1. 3. Worsened fluid collection involving the surgical bed of the L5 posterior elements extending superiorly in the subcutaneous region. This finding may be a seroma, hematoma, or abscess. - analgesics - Scheduled Tylenol 650 q6h. Gabapentin 300 mg BID, [place] 5-325 or 10-325 q4h PRN, Valium 5 mg TID PRN, dilaudid 0.5 mg q2h PRN - PT/OT - neurosurgery consulted s/p lumbar wound exploration for seroma, revision of posterior instrumentation L5-S1, redo posterolateral fusion L5-S1 on 03/[address] Silvestre. Drain removed per neurosurgery. Plan for left L5-S1 foraminotomy and revision on 03/[address] Silvestre - ID consulted as possible abscess seen on the the MRI obtained on 03/14 recommend holding on antibiotics at this time but would send fluid encountered at time of 03/16/2025 revision for routine Gram stain and culture. upon complete min of revision with cultures would begin empiric cefepime, metronidazole, and vancomycin. Patient continues to endorse back pain extending down the left lower extremity. She is tearful on exam. Patient is scheduled to have a revision today with Dr. Silvestre. (2) Peripheral edema: Code(s): R60.0 - Localized edema Status: Acute Assessment and Plan: Reporting new, significant BLE edema. BNP WNL for age and CXR did not demonstrate any pulmonary edema. S/p lumbar surgery in December of 2024. Possible complications noted on imaging, see above. Possible complication to lumbar surgery/immobility - neli wraps as tolerated, may d/c at night to sleep - BLE VD on 03/06 and 03/10: negative for DVT - mobilize as able. Elevate lower extremities. (3) Urinary tract infection: Code(s): N39.0 - Urinary tract infection, site not specified Status: Acute Assessment and Plan: - UA with positive nitrates, 1+ LE, 6-10 WBC - patient reports urinary hesitancy - previous culture with pansensitive Klebsiella - start IV Rocephin - urine culture grew pansenstive ecoli Completed antibiotic course. (4) Hypertension: Qualifiers: Hypertension type: primary hypertension Qualified Code(s): I10 - Essential (primary) hypertension Code(s): I10 - Essential (primary) hypertension Status: Chronic Assessment and Plan: - continue home medications: HCTZ 12.5 mg daily , lisinopril 10 mg daily - blood pressures stable, continue to monitor (5) Anemia: Code(s): D64.9 - Anemia, unspecified Status: Acute Assessment and Plan: - Hgb 11.7 7/3. 9.5 on admission, trended down to 8.6 - may have component of hemodilution as patient was on fluids at that time - denied signs of bleeding. unable to collect stool but reported no blood noted. - check iron studies - monitor CBC. Transfuse Hgb <7. iron panel showing deficiency, iron replacement stated no c/o dizziness, lightheadedness H/H remains stable, continue to monitor closely Time Spent With Patient Time with patient: 25 - 35 minutes Subjective Date/time seen: 03/16/25 07:35 Interval history: 75 year old female with past medical history of mitral valve prolapse, hypothyroidism, hyperlipidemia, asthma, and hypertension presents to the hospital with back pain and lower extremity edema. Patient is pleasant lying in bed. She is tearful on exam as she continues to endorse back pain extending down the left lower extremity with associated foot numbness. She is scheduled to have a revision of her surgery today with Dr. Silvestre. She has no other complaints denying chest pain, palpitations, shortness of breath, nausea/vomiting and abdominal pain. Review of Systems Review of Systems: All systems reviewed & are unremarkable except as noted in HPI and below Exam Narrative: AF HR 80 RR 16 Spo2 98 BP 155/65 General: female in no acute respiratory distress who is nontoxic appearing, lying semi recumbent in bed. HEENT: Normocephalic. Atraumatic. Extraocular movement intact. Sclera clear and anicteric. No facial asymmetry. Chest: Lungs are clear to auscultation bilaterally. No wheezes or crackles. CV: Heart was regular rate and rhythm. Abd: Abdomen was soft. Nontender. Nondistended. Positive bowel sounds. Ext: No clubbing, cyanosis. 1+ Edema to left lower extremity. DP pulses bilaterally. Neuro: Patient is alert. Sensation intact. Speech is clear. Objective Data Vital Signs Vital Signs: Vital Signs - 24 hr 03/15/25 07:56 03/15/25 07:58 03/15/25 08:00 Temperature 97.5 F L Pulse Rate 86 86 Respiratory Rate 16 16 Blood Pressure 133/69 Pulse Oximetry 98 98 98 Oxygen Delivery Room Air Autopap Fraction of Inspired Oxygen 21 03/15/25 14:00 03/15/25 18:48 03/15/25 21:27 Temperature 97.3 F L 98.1 F 98.5 F Pulse Rate 83 92 91 Respiratory Rate 20 18 18 Blood Pressure 108/57 L 123/65 109/52 L Pulse Oximetry 98 99 96 Oxygen Delivery Fraction of Inspired Oxygen 03/16/25 06:00 Temperature 98.5 F Pulse Rate 80 Respiratory Rate 16 Blood Pressure 155/65 H Pulse Oximetry 96 Oxygen Delivery Fraction of Inspired Oxygen Intake/Output Intake/Output: Intake & Output 03/13/25 03/14/25 03/15/25 03/16/25 23:59 23:59 23:59 23:59 Intake Total 1820 1120 650 400 Output Total 2250 1850 1900 900 Balance -430 -730 -1250 -500 Meds/Results Medications: Active Medications Generic Name Dose Route Start Last Admin Trade Name Freq PRN Reason Stop Dose Admin Acetaminophen 1,000 mg 03/06/25 17:01 Acetaminophen 500 Mg Tablet PO Q6H PRN Pain Rated 1-3 Al Hydrox/Mg Hydrox/Simethicone 20 ml 03/08/25 17:12 Mag Hydrox/Al Hydrox/Simeth 30 Ml Udc PO Q4H PRN Indigestion/Heartburn Albuterol 1 puff 03/06/25 21:53 Albuterol Sulfate (*Sp) Aerosol 1 Puff INHALATION Q4-6H PRN Wheezing Bisacodyl 10 mg 03/08/25 17:12 Bisacodyl 10 Mg Suppository RECTAL DAILY PRN Constipation Calcium Carbonate 500 mg 03/07/25 12:00 03/15/25 12:17 Calcium Carbonate (Oscal) 500 Mg Tablet PO 500 mg DAILY@1200 [facility] Administration Diazepam 5 mg 03/11/25 17:10 03/15/25 22:58 Diazepam (*Crx) 5 Mg Tablet PO 5 mg TID PRN Administration Muscle Spasm Docusate Sodium 100 mg 03/06/25 17:06 Docusate Sodium 100 Mg Capsule PO Q12H PRN Constipation Docusate Sodium 100 mg 03/08/25 21:00 03/15/25 20:24 Docusate Sodium 100 Mg Capsule PO Not Given Q12HR [facility] Enoxaparin Sodium 40 mg 03/12/25 13:40 03/15/25 08:02 Enoxaparin 40 Mg/0.4 Ml Syringe SUB-Q 40 mg DAILY [facility] Administration Gabapentin 300 mg 03/06/25 21:40 03/15/25 20:24 Gabapentin 300 Mg Capsule PO 300 mg Q12HR LANG Administration Hydrochlorothiazide 12.5 mg 03/07/25 09:00 03/15/25 08:00 Hydrochlorothiazide 12.5 Mg Capsule PO 12.5 mg DAILY [facility] Administration Hydromorphone HCl 0.5 mg 03/08/25 17:12 03/16/25 06:10 Hydromorphone Hcl Inj (*Crx) 1 Mg/Ml Syr IV PUSH 0.5 mg Q2H PRN Administration Pain Rated 7-10 Hydroxyzine HCl 25 mg 03/06/25 21:38 03/15/25 22:58 Hydroxyzine Hcl 25 Mg Tablet PO 25 mg QID PRN Administration Anxiety Levothyroxine Sodium 50 mcg 03/07/25 06:30 03/16/25 04:58 Levothyroxine Sodium 50 Mcg Tablet PO 50 mcg DAILY@0630 [facility] Administration Lidocaine 1 patch 03/11/25 09:00 03/15/25 08:02 Lidocaine 5% Patch TRANSDERM Not Given DAILY [facility] Lisinopril 10 mg 03/07/25 09:00 03/15/25 08:00 Lisinopril 10 Mg Tablet PO 10 mg DAILY LANG Administration Loratadine 10 mg 03/06/25 21:44 Loratadine 10 Mg Tablet PO DAILY PRN Congestion Meclizine HCl 25 mg 03/06/25 21:38 03/14/25 10:09 Meclizine Hcl 25 Mg Tablet PO 25 mg TID PRN Administration Dizziness Or Vertigo Multivitamins Therapeutic 1 tablet 03/07/25 12:00 03/15/25 12:17 Multivitamins Therapeutic Tab (*Bkc) PO 1 tablet DAILY@1200 [facility] Administration Ondansetron HCl 4 mg 03/06/25 17:01 03/13/25 11:09 Ondansetron Hcl Odt 4 Mg Tablet PO 4 mg Q6H PRN Administration Nausea And Vomiting Ondansetron HCl 4 mg 03/08/25 17:12 Ondansetron Inj 4 Mg/2 Ml Vial IV PUSH Q8H PRN Nausea And Vomiting Oxycodone/Acetaminophen 1 tab 03/07/25 10:39 03/16/25 04:58 Oxycodone/Acetaminophen (*Crx) 10-325 Mg Tablet PO 1 tab Q4H PRN Administration Pain Rated 7-10 Oxycodone/Acetaminophen 1 tablet 03/08/25 17:12 Oxycodone/Acetaminophen (*Crx) 5-325 Mg Tablet PO Q4H PRN Mild Pain (1-3) Oxycodone/Acetaminophen 1 tab 03/08/25 17:12 03/08/25 22:52 Oxycodone/Acetaminophen (*Crx) 10-325 Mg Tablet PO 1 tab Q4H PRN Administration Moderate Pain (4-6) Pantoprazole Sodium 40 mg 03/07/25 09:00 03/15/25 08:00 Pantoprazole 40 Mg Tablet PO 40 mg QAM LANG Administration Polyethylene Glycol 17 gm 03/06/25 17:06 Polyethylene Glycol 3350 17 Gm Powd.Pack PO QAM PRN Constipation Fluticasone/Salmeterol 2 puff 03/07/25 08:00 03/15/25 07:57 Fluticasone/Salmeterol 45-21 Mcg Inhaler 1 Puff INHALATION 2 puff DAILYRT LANG Administration Senna/Docusate Sodium 1 tab 03/08/25 17:12 03/11/25 05:35 Senna/Docusate Sodium Tablet PO 1 tab HS PRN Administration Constipation Senna/Docusate Sodium 1 tab 03/09/25 17:00 03/15/25 16:30 Senna/Docusate Sodium Tablet PO Not Given BID LANG Simvastatin 40 mg 03/07/25 09:00 03/15/25 08:01 Simvastatin 20 Mg Tablet PO 40 mg DAILY LANG Administration Vitamin D 25 mcg 03/07/25 09:00 03/15/25 08:01 Cholecalciferol (Vitamin D3) 25 Mcg (1,000 Units) Tablet PO 25 mcg DAILY LANG Administration Vitamin D 250 mcg 03/07/25 09:00 03/15/25 08:00 Cholecalciferol (Vitamin D3) 125 Mcg (5,000 Units) Tablet PO 250 mcg DAILY LANG Administration Radiology Results: ITS Impressions Chest X-Ray 03/06/25 16:17 IMPRESSION: 1: NO ACUTE CARDIOPULMONARY DISEASE. Venous Doppler Study 03/10/25 09:45 IMPRESSION: 1: No left lower extremity deep venous thrombosis. Lumbar Spine CT 03/10/25 15:39 IMPRESSION: 1. Again seen are changes of combined instrumented L5-S1 anterior and posterior spinal fusion with revision of the connection between the vertical srinath and the left S1 pedicle screw, placement of new bone graft material bilaterally and decompression with surgical drain placement at a postoperative hematoma/seroma at the laminectomy bed. 2. Redemonstration of nondisplaced fracture across the base of the right pedicle of L5 with some lucency along the cephalad margin of the right L5 pedicle screw at the level of the vertebral body. 3. Unchanged instrumented left sacroiliac arthrodesis. Lumbar Spine MRI 03/13/25 17:24 IMPRESSION: 1. Severe lumbar spondylosis. 2. Anterior and posterior fusion procedures at L5-S1. 3. Worsened fluid collection involving the surgical bed of the L5 posterior elements extending superiorly in the subcutaneous region. This finding may be a seroma, hematoma, or abscess. Labs Labs: Laboratory Results - last 24 hr 03/16/25 05:00 WBC 6.5 RBC 2.81 L Hgb 8.2 L Hct 26.4 L MCV 94.0 MCH 29.2 MCHC 31.1 L RDW 15.0 H Plt Count 323 MPV 10.7 H Sodium 135 L Potassium 4.8 Chloride 101 Carbon Dioxide 32 H Anion Gap 2 L BUN 18 H Creatinine 0.74 Estim Creat Clear Calc 58 Estimated GFR > 60 Glucose 86 Calcium 8.9 Total Bilirubin 0.3 AST 34 ALT 27 Alkaline Phosphatase 90 Total Protein 5.9 L Albumin 3.2 L Quality VTE Prophylaxis VTE prophylaxis: pharmacologic ordered
[2025-03-16] MEDS: GABAPENTIN 300 MG CAPSULE PO ×2 (08:24→22:53)
[2025-03-16] MEDS: FLUTICASONE/SALMETEROL 45-21 MCG INHALER 1 PUFF 2 PUFF INHALATION (09:17)
[2025-03-16] MEDS: diazePAM (*CRX) 5 MG TABLET PO (09:56)
--- NOTE | 2025-03-16 11:27 | PCOTNOTE ---
Per RN Joselyn hold therapy today d/t patient going down for surgery soon. RN states patient has been in a lot of pain today to and would be better to try again tomorrow.
--- NOTE | 2025-03-16 11:46 | P.PNINF_ITS ---
Progress Note: A&P Assessment and Plan (1) Inflammatory spondylopathy of sacral region: Code(s): M46.98 - Unspecified inflammatory spondylopathy, sacral and sacrococcygeal region Status: Acute (2) Acute post-operative pain: Code(s): G89.18 - Other acute postprocedural pain Status: Acute (3) Hematoma following procedure: Status: Acute (4) Urinary tract infection: Code(s): N39.0 - Urinary tract infection, site not specified Status: Acute (5) Edema of left lower extremity: Code(s): R60.0 - Localized edema Status: Acute (6) Antibiotic causing adverse effect: Code(s): T36.95XA - Adverse effect of unspecified systemic antibiotic, initial encounter Status: Acute Plan # Postoperative lumbosacral recurrent fluid collection. -- status post surgical site revision with evacuation 03/08/2025 but with recurrence. -- seroma/hematoma without clinical evidence of abscess noted at that time. In addition, she was without fever, leukocytosis, or elevated CRP at the time of presentation and remains without fever or leukocytosis since. -- recurrent fluid collection may again represent seroma/hematoma but can not completely rule out the possibility of secondary infected fluid collection (abscess). However, might expect fever and or leukocytosis if that were the case. -- plan for further surgical revision today. # Status post treatment for E coli UTI on presentation. --completed treatment with ceftriaxone. # Reported hives allergy to penicillin and additional allergy to sulfa medications. -- proven to tolerate cephalosporins. Plan: -- recommend holding on antibiotics at this time but would send fluid encountered at time of today's revision for routine Gram stain and culture. -- upon completion of revision with cultures would begin empiric cefepime, metronidazole, and vancomycin, and pending cultures. Patient was seen via video telehealth consultation with the assistance of staff. Chart, data, and patient independently reviewed. Patient was located at [facility] while I was located in my [place] office. Received verbal consent from patient. Subjective Date/time seen: 03/16/25 11:46 Interval history: 03/16/2025: For lumbar surgical site revision today. Review of Systems Review of Systems: All systems reviewed & are unremarkable except as noted in HPI and below Exam Narrative: Patient not evaluated today. Down for surgery. Objective Data Vital Signs Vital Signs: Vital Signs - 24 hr 03/15/25 14:00 03/15/25 18:48 03/15/25 21:27 Temperature 97.3 F L 98.1 F 98.5 F Pulse Rate 83 92 91 Respiratory Rate 20 18 18 Blood Pressure 108/57 L 123/65 109/52 L Pulse Oximetry 98 99 96 Oxygen Delivery 03/16/25 06:00 03/16/25 08:25 03/16/25 09:17 Temperature 98.5 F Pulse Rate 80 Respiratory Rate 16 Blood Pressure 155/65 H Pulse Oximetry 96 98 Oxygen Delivery Room Air Room Air Intake/Output Intake/Output: Intake & Output 03/13/25 03/14/25 03/15/25 03/16/25 23:59 23:59 23:59 23:59 Intake Total 1820 1120 650 400 Output Total 2250 1850 1900 900 Balance -430 -730 -1250 -500 Meds/Results Medications: Active Medications Generic Name Dose Route Start Last Admin Trade Name Freq PRN Reason Stop Dose Admin Acetaminophen 650 mg 03/16/25 11:20 Acetaminophen 325 Mg Tablet PO Q6HR [facility] Al Hydrox/Mg Hydrox/Simethicone 20 ml 03/08/25 17:12 Mag Hydrox/Al Hydrox/Simeth 30 Ml Udc PO Q4H PRN Indigestion/Heartburn Albuterol 1 puff 03/06/25 21:53 Albuterol Sulfate (*Sp) Aerosol 1 Puff INHALATION Q4-6H PRN Wheezing Bisacodyl 10 mg 03/08/25 17:12 Bisacodyl 10 Mg Suppository RECTAL DAILY PRN Constipation Calcium Carbonate 500 mg 03/07/25 12:00 03/15/25 12:17 Calcium Carbonate (Oscal) 500 Mg Tablet PO 500 mg DAILY@1200 [facility] Administration Diazepam 5 mg 03/11/25 17:10 03/16/25 09:56 Diazepam (*Crx) 5 Mg Tablet PO 5 mg TID PRN Administration Muscle Spasm Docusate Sodium 100 mg 03/06/25 17:06 Docusate Sodium 100 Mg Capsule PO Q12H PRN Constipation Docusate Sodium 100 mg 03/08/25 21:00 03/16/25 11:03 Docusate Sodium 100 Mg Capsule PO Not Given Q12HR [facility] Enoxaparin Sodium 40 mg 03/12/25 13:40 03/16/25 11:04 Enoxaparin 40 Mg/0.4 Ml Syringe SUB-Q Not Given DAILY [facility] Gabapentin 300 mg 03/06/25 21:40 03/16/25 08:24 Gabapentin 300 Mg Capsule PO 300 mg Q12HR [facility] Administration Hydrochlorothiazide 12.5 mg 03/07/25 09:00 03/16/25 11:03 Hydrochlorothiazide 12.5 Mg Capsule PO Not Given DAILY [facility] Hydromorphone HCl 0.5 mg 03/08/25 17:12 03/16/25 10:48 Hydromorphone Hcl Inj (*Crx) 1 Mg/Ml Syr IV PUSH 0.5 mg Q2H PRN Administration Pain Rated 7-10 Hydroxyzine HCl 25 mg 03/06/25 21:38 03/15/25 22:58 Hydroxyzine Hcl 25 Mg Tablet PO 25 mg QID PRN Administration Anxiety Levothyroxine Sodium 50 mcg 03/07/25 06:30 03/16/25 04:58 Levothyroxine Sodium 50 Mcg Tablet PO 50 mcg DAILY@0630 [facility] Administration Lidocaine 1 patch 03/11/25 09:00 03/16/25 11:03 Lidocaine 5% Patch TRANSDERM Not Given DAILY [facility] Lisinopril 10 mg 03/07/25 09:00 03/16/25 11:03 Lisinopril 10 Mg Tablet PO Not Given DAILY [facility] Loratadine 10 mg 03/06/25 21:44 Loratadine 10 Mg Tablet PO DAILY PRN Congestion Meclizine HCl 25 mg 03/06/25 21:38 03/14/25 10:09 Meclizine Hcl 25 Mg Tablet PO 25 mg TID PRN Administration Dizziness Or Vertigo Multivitamins Therapeutic 1 tablet 03/07/25 12:00 03/15/25 12:17 Multivitamins Therapeutic Tab (*Bkc) PO 1 tablet DAILY@1200 [facility] Administration Ondansetron HCl 4 mg 03/06/25 17:01 03/13/25 11:09 Ondansetron Hcl Odt 4 Mg Tablet PO 4 mg Q6H PRN Administration Nausea And Vomiting Ondansetron HCl 4 mg 03/08/25 17:12 Ondansetron Inj 4 Mg/2 Ml Vial IV PUSH Q8H PRN Nausea And Vomiting Oxycodone/Acetaminophen 1 tab 03/07/25 10:39 03/16/25 08:25 Oxycodone/Acetaminophen (*Crx) 10-325 Mg Tablet PO 1 tab Q4H PRN Administration Pain Rated 7-10 Oxycodone/Acetaminophen 1 tablet 03/08/25 17:12 Oxycodone/Acetaminophen (*Crx) 5-325 Mg Tablet PO Q4H PRN Mild Pain (1-3) Oxycodone/Acetaminophen 1 tab 03/08/25 17:12 03/08/25 22:52 Oxycodone/Acetaminophen (*Crx) 10-325 Mg Tablet PO 1 tab Q4H PRN Administration Moderate Pain (4-6) Pantoprazole Sodium 40 mg 03/07/25 09:00 03/16/25 11:03 Pantoprazole 40 Mg Tablet PO Not Given QAM [facility] Polyethylene Glycol 17 gm 03/06/25 17:06 Polyethylene Glycol 3350 17 Gm Powd.Pack PO QAM PRN Constipation Fluticasone/Salmeterol 2 puff 03/07/25 08:00 03/16/25 09:17 Fluticasone/Salmeterol 45-21 Mcg Inhaler 1 Puff INHALATION 2 puff DAILYRT [facility] Administration Senna/Docusate Sodium 1 tab 03/08/25 17:12 03/11/25 05:35 Senna/Docusate Sodium Tablet PO 1 tab HS PRN Administration Constipation Senna/Docusate Sodium 1 tab 03/09/25 17:00 03/16/25 11:03 Senna/Docusate Sodium Tablet PO Not Given BID [facility] Simvastatin 40 mg 03/07/25 09:00 03/16/25 11:03 Simvastatin 20 Mg Tablet PO Not Given DAILY [facility] Vitamin D 25 mcg 03/07/25 09:00 03/16/25 11:03 Cholecalciferol (Vitamin D3) 25 Mcg (1,000 Units) Tablet PO Not Given DAILY [facility] Vitamin D 250 mcg 03/07/25 09:00 03/16/25 11:03 Cholecalciferol (Vitamin D3) 125 Mcg (5,000 Units) Tablet PO Not Given DAILY [facility] Radiology Results: ITS Impressions Chest X-Ray 03/06/25 16:17 IMPRESSION: 1: NO ACUTE CARDIOPULMONARY DISEASE. Venous Doppler Study 03/10/25 09:45 IMPRESSION: 1: No left lower extremity deep venous thrombosis. Lumbar Spine CT 03/10/25 15:39 IMPRESSION: 1. Again seen are changes of combined instrumented L5-S1 anterior and posterior spinal fusion with revision of the connection between the vertical srinath and the left S1 pedicle screw, placement of new bone graft material bilaterally and decompression with surgical drain placement at a postoperative hematoma/seroma at the laminectomy bed. 2. Redemonstration of nondisplaced fracture across the base of the right pedicle of L5 with some lucency along the cephalad margin of the right L5 pedicle screw at the level of the vertebral body. 3. Unchanged instrumented left sacroiliac arthrodesis. Lumbar Spine MRI 03/13/25 17:24 IMPRESSION: 1. Severe lumbar spondylosis. 2. Anterior and posterior fusion procedures at L5-S1. 3. Worsened fluid collection involving the surgical bed of the L5 posterior elements extending superiorly in the subcutaneous region. This finding may be a seroma, hematoma, or abscess. Labs Labs: Laboratory Results - last 24 hr 03/16/25 05:00 WBC 6.5 RBC 2.81 L Hgb 8.2 L Hct 26.4 L MCV 94.0 MCH 29.2 MCHC 31.1 L RDW 15.0 H Plt Count 323 MPV 10.7 H Sodium 135 L Potassium 4.8 Chloride 101 Carbon Dioxide 32 H Anion Gap 2 L BUN 18 H Creatinine 0.74 Estim Creat Clear Calc 58 Estimated GFR > 60 Glucose 86 Calcium 8.9 Total Bilirubin 0.3 AST 34 ALT 27 Alkaline Phosphatase 90 Total Protein 5.9 L Albumin 3.2 L
[2025-03-16] MEDS: LACTATED RINGERS 1,000 ML 30 ML IV CONT ×2 (13:40→16:53)
--- NOTE | 2025-03-16 13:49 | WPDANESEPPF ---
Anes - Initial Pre Proc Eval Procedure: Operation Date: 03/08/25 14:30 Proposed Procedures p Wound Exploration For Hematoma, - Hao Silvestre MD s Revision Posterior Instrumentation - Hao Silvestre MD Operation Date: 03/16/25 14:30 Proposed Procedures p Left L5-S1 Foraminotomy and Revision Posterior Instrumentation - Hao Silvestre MD Date/Time: 03/16/25 13:49 Surgeon: Santos Sanchez MD Pre Op Diagnosis: back pain,leg edema Patient Data Age: 75 Gender: F Height: 1.63 m Weight: 84.3 kg Last Vital Signs Temp 36.9 C 03/16/25 06:00 Pulse 80 03/16/25 06:00 Resp 16 03/16/25 06:00 BP 155/65 H 03/16/25 06:00 Pulse Ox 98 03/16/25 09:17 O2 Del Method Room Air 03/16/25 09:17 O2 Flow Rate 6 03/08/25 16:10 FiO2 21 03/15/25 08:00 Allergies Allergy/AdvReac Type Severity Reaction Status Date / Time Fish Containing Products Allergy Severe Vomiting Verified 03/08/25 14:08 latex Allergy Severe Itching Verified 03/08/25 14:08 Penicillins Allergy Severe Hives Verified 03/08/25 14:08 codeine Allergy Mild Hives AND Verified 03/08/25 14:08 VOMITING strawberry Allergy Mild Hives Verified 03/08/25 14:08 hydrocodone (From Vicodin) AdvReac Severe Vomiting Verified 03/08/25 14:08 meperidine (From Demerol) AdvReac Severe Vomiting Verified 03/08/25 14:08 tetanus and diphtheria AdvReac Severe Swelling Verified 03/08/25 14:08 toxoids kiwi AdvReac Mild Hives Verified 03/08/25 14:08 Sulfa (Sulfonamide AdvReac Mild Vomiting Verified 03/08/25 14:08 Antibiotics) tramadol AdvReac Mild Nausea Verified 03/08/25 14:08 Home Medications ?Medication ?Instructions ?Recorded ?Confirmed ?Type albuterol sulfate 90 mcg/actuation 1 inh inhalation Q4-6H PRN Wheezing 04/13/23 03/06/25 History breath activated powder inhaler calcium carbonate (Calcium 600) 600 mg PO DAILY 04/13/23 03/06/25 History cetirizine 10 mg tablet 10 mg PO DAILY PRN Congestion 04/13/23 03/06/25 History gabapentin 300 mg capsule 300 mg PO Q12H 04/13/23 03/06/25 History hydroxyzine HCl 25 mg tablet 25 mg PO QID PRN Anxiety 04/13/23 03/06/25 History levothyroxine 50 mcg capsule 50 mcg PO DAILY 04/13/23 03/06/25 History meclizine 25 mg tablet 25 mg PO TID PRN Dizziness Or 04/13/23 03/06/25 History Vertigo pantoprazole 40 mg tablet,delayed 40 mg PO QAM 04/13/23 03/06/25 History release simvastatin 40 mg tablet 40 mg PO DAILY 04/13/23 03/06/25 History cholecalciferol (vitamin D3) 250 250 mcg PO DAILY 07/27/23 03/06/25 History mcg (10,000 unit) capsule multivitamin 1 tablet PO DAILY 07/27/23 03/06/25 History clopidogrel 75 mg tablet 75 mg PO DAILY 11/23/23 03/08/25 History Held on 01/14/25. Instructions: Resume on 01/21/25. budesonide 6 mg capsule,extended 6 mg PO DAILY 01/07/24 03/06/25 History release cholecalciferol (vitamin D3) 25 25 mcg PO DAILY 07/11/24 03/06/25 History mcg (1,000 unit) capsule hydrochlorothiazide 12.5 mg capsule 12.5 mg PO DAILY 07/11/24 03/06/25 History lisinopril 10 mg tablet 10 mg PO DAILY 07/11/24 03/06/25 History cyclobenzaprine 10 mg tablet 10 mg PO TID PRN Muscle Spasms 10 07/20/24 03/06/25 Rx days #30 tabs budesonide-formoterol HFA 80 2 inh inhalation DAILY 12/29/24 03/06/25 History mcg-4.5 mcg/actuation aerosol inhaler (Symbicort) meloxicam 15 mg tablet 15 mg PO DAILY 12/29/24 03/06/25 History ondansetron 4 mg disintegrating 4 mg PO Q6H PRN nausea and 02/21/25 03/06/25 Rx tablet vomiting #30 tabs cyclobenzaprine 10 mg tablet 10 mg PO TID PRN muscle spasm #20 03/01/25 03/06/25 Rx tabs oxycodone-acetaminophen 5 mg-325 1 - 2 tablet PO Q6H PRN pain #40 03/02/25 03/06/25 Rx mg tablet tabs Laboratory Tests 03/16/25 05:00 WBC 6.5 K/mm3 (4.5-10.0) RBC 2.81 L M/mm3 (4.2-5.4) Hgb 8.2 L g/dL (12.0-15.0) Hct 26.4 L % (37.0-47.0) MCV 94.0 fl (80-100) MCH 29.2 pg (26-34) MCHC 31.1 L g/dl (32-36) RDW 15.0 H % (11.5-14.5) Plt Count 323 k/mm3 (150-375) MPV 10.7 H fl (7.4-10.4) Sodium 135 L mmol/L (137-145) Potassium 4.8 mmol/L (3.4-5.0) Chloride 101 mmol/L (98-107) Carbon Dioxide 32 H mmol/L (22-30) Anion Gap 2 L mmol/L (4-12) BUN 18 H mg/dL (7-17) Creatinine 0.74 mg/dL (0.7-1.0) Estim Creat Clear Calc 58 ml/min Estimated GFR > 60 (59 - ) Glucose 86 mg/dL (65-110) Calcium 8.9 mg/dL (8.4-10.2) Total Bilirubin 0.3 mg/dL (0.2-1.3) AST 34 U/L (14-36) ALT 27 U/L (6-35) Alkaline Phosphatase 90 U/L (38-126) Total Protein 5.9 L g/dL (6.3-8.2) Albumin 3.2 L g/dL (3.5-5.1) Patient hx anesthesia problems: none Family hx anesthesia problems: none Results Review: All pre-operative results and documents have been reviewed as part of the pre-operative evaluation. [facility] Past Medical History Medical History MVP (mitral valve prolapse) said she was having spells and then was put on blood thinners because of her MVP and now she doesn't have these spells Skin cancer Anxiety Hypothyroidism Hyperlipidemia Hypertension Asthma Surgical History Surgical History Previous back surgery History of hysterectomy History of tonsillectomy History of bladder surgery History of lumbar discectomy History of lumbar laminectomy History of appendectomy Family History Family History Mother Diabetes mellitus Hypertension Heart problem Thyroid disorder Social History Social History (Updated 03/16/25 @ 13:50 by Salbador Anderson MD) Years smoked: 35 Smoking status: Former smoker Second hand tobacco smoke exposure: Yes Alcohol intake: never Alcohol use details: Rarely Substance use: never Substance use type: does not use Do You Feel Safe in your Home?: Yes Lack of Transportation: No Lack of Food: Never True Current Housing: I Have Housing Concerned About Future Housing: No Difficulty Paying Gas/Electric Bills: No Difficulty Paying for Meds: No Currently Unemployed: No Education: Decline to Answer Difficulty w/ Childcare or Family Care: No Living arrangements: with family Additional living arrangements comments: LIVES WITH DISABLED SPOUSE Spiritual care concerns: No Anes - Eval Final PreProcedure Day of Procedure 03/16/25 13:49 Patient weight: obese Heart: regular rate and rhythm Lungs: clear to auscultation Airway: Mallampati scale class II Neurological: alert and oriented Last oral intake: >/= 8 hours ASA classification: III Emergent: no Anesthetic plan: proceed Anesthesia type and monitoring: general GIVS and standard monitoring Results Review: All pre-operative results and documents have been reviewed as part of the pre-operative evaluation. Informed Consent: The patient's anesthetic plan and its attendant risks and benefits were discussed with the patient/family/POA. Questions were solicited and answers provided to the satisfaction of the patient/family/POA.
--- NOTE | 2025-03-16 14:27 | PCPTNOTE ---
The patient treatment was not able to be completed today due to patient scheduled for surgery today. Will plan to continue treatment per plan of care.
--- NOTE | 2025-03-16 14:55 | P.PNNEUSUR_ITS ---
Progress Note: A&P Assessment and Plan (1) Foraminal stenosis of lumbosacral region: Code(s): M48.07 - Spinal stenosis, lumbosacral region Status: Acute Plan Yaima presents to the OR for exploration of the left neural foramen and decompression of the exiting L5 nerve root with revision of the posterior instrumentation. I described to her again that operation, its risks, potential benefits, the operative and postoperative course in detail and answered all her questions personally. She indicates understanding and elects to proceed with that operation. Subjective Date/time seen: 03/16/25 14:55 Interval history: Yaima persists in having left lower extremity and back and hip discomfort. She presents to the OR today for exploration of the left L5-S1 neural foramen which require removing her srinath and replacing it again on that side. She has not changed appreciably since I last saw her. Review of Systems Review of Systems: Patient denies shortness of breath, cough, fever, chills, nausea, vomiting, weight loss, weight gain, chest pain, dysuria. She has back and left lower extremity pain and weakness. Review of systems is otherwise negative on 12 systems except as noted elsewhere. Exam Narrative: Strength is decreased in the left dorsiflexors but is otherwise normal symmetric in the bilateral lower extremities. Sensation is intact to light touch lower extremities Breathing is nonlabored Regular rate and rhythm Objective Data Vital Signs Vital Signs: Vital Signs - 24 hr 03/15/25 18:48 03/15/25 21:27 03/16/25 06:00 Temperature 98.1 F 98.5 F 98.5 F Pulse Rate 92 91 80 Respiratory Rate 18 18 16 Blood Pressure 123/65 109/52 L 155/65 H Pulse Oximetry 99 96 96 Oxygen Delivery 03/16/25 08:25 03/16/25 09:17 03/16/25 13:36 Temperature 98.3 F Pulse Rate 98 Respiratory Rate 20 Blood Pressure 129/83 Pulse Oximetry 98 100 Oxygen Delivery Room Air Room Air Room Air Intake/Output Intake/Output: Intake & Output 03/13/25 03/14/25 03/15/25 03/16/25 23:59 23:59 23:59 23:59 Intake Total 1820 1120 650 400 Output Total 2250 1850 1900 1700 Balance -430 -730 -1250 -1300 Meds/Results Medications: Active Medications Generic Name Dose Route Start Last Admin Trade Name Freq PRN Reason Stop Dose Admin Acetaminophen 650 mg 03/16/25 11:20 Acetaminophen 325 Mg Tablet PO Q6HR [facility] Al Hydrox/Mg Hydrox/Simethicone 20 ml 03/08/25 17:12 Mag Hydrox/Al Hydrox/Simeth 30 Ml Udc PO Q4H PRN Indigestion/Heartburn Albuterol 1 puff 03/06/25 21:53 Albuterol Sulfate (*Sp) Aerosol 1 Puff INHALATION Q4-6H PRN Wheezing Bisacodyl 10 mg 03/08/25 17:12 Bisacodyl 10 Mg Suppository RECTAL DAILY PRN Constipation Calcium Carbonate 500 mg 03/07/25 12:00 03/15/25 12:17 Calcium Carbonate (Oscal) 500 Mg Tablet PO 500 mg DAILY@1200 [facility] Administration Diazepam 5 mg 03/11/25 17:10 03/16/25 09:56 Diazepam (*Crx) 5 Mg Tablet PO 5 mg TID PRN Administration Muscle Spasm Docusate Sodium 100 mg 03/06/25 17:06 Docusate Sodium 100 Mg Capsule PO Q12H PRN Constipation Docusate Sodium 100 mg 03/08/25 21:00 03/16/25 11:03 Docusate Sodium 100 Mg Capsule PO Not Given Q12HR [facility] Enoxaparin Sodium 40 mg 03/12/25 13:40 03/16/25 11:04 Enoxaparin 40 Mg/0.4 Ml Syringe SUB-Q Not Given DAILY [facility] Gabapentin 300 mg 03/06/25 21:40 03/16/25 08:24 Gabapentin 300 Mg Capsule PO 300 mg Q12HR [facility] Administration Hydrochlorothiazide 12.5 mg 03/07/25 09:00 03/16/25 11:03 Hydrochlorothiazide 12.5 Mg Capsule PO Not Given DAILY [facility] Hydromorphone HCl 0.5 mg 03/08/25 17:12 03/16/25 13:30 Hydromorphone Hcl Inj (*Crx) 1 Mg/Ml Syr IV PUSH 0.5 mg Q2H PRN Administration Pain Rated 7-10 Hydromorphone HCl 0.25 mg 03/16/25 13:51 Hydromorphone Hcl Inj (*Crx) 1 Mg/Ml Syr IV PUSH Q5M PRN Pain Hydroxyzine HCl 25 mg 03/06/25 21:38 03/15/25 22:58 Hydroxyzine Hcl 25 Mg Tablet PO 25 mg QID PRN Administration Anxiety Lactated Ringer's 1,000 mls @ 30 mls/hr 03/16/25 13:55 03/16/25 13:40 Lr - Lactated Ringers Iv IV CONT 30 mls/hr .Q24H [facility] Administration Lactated Ringer's 1,000 mls @ 30 mls/hr 03/16/25 13:55 Lr - Lactated Ringers Iv IV CONT .Q24H [facility] Levothyroxine Sodium 50 mcg 03/07/25 06:30 03/16/25 04:58 Levothyroxine Sodium 50 Mcg Tablet PO 50 mcg DAILY@0630 [facility] Administration Lidocaine 1 patch 03/11/25 09:00 03/16/25 11:03 Lidocaine 5% Patch TRANSDERM Not Given DAILY [facility] Lisinopril 10 mg 03/07/25 09:00 03/16/25 11:03 Lisinopril 10 Mg Tablet PO Not Given DAILY [facility] Loratadine 10 mg 03/06/25 21:44 Loratadine 10 Mg Tablet PO DAILY PRN Congestion Meclizine HCl 25 mg 03/06/25 21:38 03/14/25 10:09 Meclizine Hcl 25 Mg Tablet PO 25 mg TID PRN Administration Dizziness Or Vertigo Multivitamins Therapeutic 1 tablet 03/07/25 12:00 03/15/25 12:17 Multivitamins Therapeutic Tab (*Bkc) PO 1 tablet DAILY@1200 [facility] Administration Ondansetron HCl 4 mg 03/06/25 17:01 03/13/25 11:09 Ondansetron Hcl Odt 4 Mg Tablet PO 4 mg Q6H PRN Administration Nausea And Vomiting Ondansetron HCl 4 mg 03/08/25 17:12 Ondansetron Inj 4 Mg/2 Ml Vial IV PUSH Q8H PRN Nausea And Vomiting Ondansetron HCl 4 mg 03/16/25 13:51 Ondansetron Inj 4 Mg/2 Ml Vial IV PUSH ONCE PRN Nausea Oxycodone/Acetaminophen 1 tab 03/07/25 10:39 03/16/25 08:25 Oxycodone/Acetaminophen (*Crx) 10-325 Mg Tablet PO 1 tab Q4H PRN Administration Pain Rated 7-10 Oxycodone/Acetaminophen 1 tablet 03/08/25 17:12 Oxycodone/Acetaminophen (*Crx) 5-325 Mg Tablet PO Q4H PRN Mild Pain (1-3) Oxycodone/Acetaminophen 1 tab 03/08/25 17:12 03/08/25 22:52 Oxycodone/Acetaminophen (*Crx) 10-325 Mg Tablet PO 1 tab Q4H PRN Administration Moderate Pain (4-6) Pantoprazole Sodium 40 mg 03/07/25 09:00 03/16/25 11:03 Pantoprazole 40 Mg Tablet PO Not Given QAM [facility] Polyethylene Glycol 17 gm 03/06/25 17:06 Polyethylene Glycol 3350 17 Gm Powd.Pack PO QAM PRN Constipation Fluticasone/Salmeterol 2 puff 03/07/25 08:00 03/16/25 09:17 Fluticasone/Salmeterol 45-21 Mcg Inhaler 1 Puff INHALATION 2 puff DAILYRT [facility] Administration Senna/Docusate Sodium 1 tab 03/08/25 17:12 03/11/25 05:35 Senna/Docusate Sodium Tablet PO 1 tab HS PRN Administration Constipation Senna/Docusate Sodium 1 tab 03/09/25 17:00 03/16/25 11:03 Senna/Docusate Sodium Tablet PO Not Given BID [facility] Simvastatin 40 mg 03/07/25 09:00 03/16/25 11:03 Simvastatin 20 Mg Tablet PO Not Given DAILY [facility] Vitamin D 25 mcg 03/07/25 09:00 03/16/25 11:03 Cholecalciferol (Vitamin D3) 25 Mcg (1,000 Units) Tablet PO Not Given DAILY [facility] Vitamin D 250 mcg 03/07/25 09:00 03/16/25 11:03 Cholecalciferol (Vitamin D3) 125 Mcg (5,000 Units) Tablet PO Not Given DAILY [facility] Radiology Results: ITS Impressions Chest X-Ray 03/06/25 16:17 IMPRESSION: 1: NO ACUTE CARDIOPULMONARY DISEASE. Venous Doppler Study 03/10/25 09:45 IMPRESSION: 1: No left lower extremity deep venous thrombosis. Lumbar Spine CT 03/10/25 15:39 IMPRESSION: 1. Again seen are changes of combined instrumented L5-S1 anterior and posterior spinal fusion with revision of the connection between the vertical srinath and the left S1 pedicle screw, placement of new bone graft material bilaterally and decompression with surgical drain placement at a postoperative hematoma/seroma at the laminectomy bed. 2. Redemonstration of nondisplaced fracture across the base of the right pedicle of L5 with some lucency along the cephalad margin of the right L5 pedicle screw at the level of the vertebral body. 3. Unchanged instrumented left sacroiliac arthrodesis. Lumbar Spine MRI 03/13/25 17:24 IMPRESSION: 1. Severe lumbar spondylosis. 2. Anterior and posterior fusion procedures at L5-S1. 3. Worsened fluid collection involving the surgical bed of the L5 posterior elements extending superiorly in the subcutaneous region. This finding may be a seroma, hematoma, or abscess. Labs Labs: Laboratory Results - last 24 hr 03/16/25 05:00 WBC 6.5 RBC 2.81 L Hgb 8.2 L Hct 26.4 L MCV 94.0 MCH 29.2 MCHC 31.1 L RDW 15.0 H Plt Count 323 MPV 10.7 H Sodium 135 L Potassium 4.8 Chloride 101 Carbon Dioxide 32 H Anion Gap 2 L BUN 18 H Creatinine 0.74 Estim Creat Clear Calc 58 Estimated GFR > 60 Glucose 86 Calcium 8.9 Total Bilirubin 0.3 AST 34 ALT 27 Alkaline Phosphatase 90 Total Protein 5.9 L Albumin 3.2 L
--- NOTE | 2025-03-16 15:00 | WPDHPUPDATE1 ---
History and Physical Update Update Date/Time: 03/16/25 15:00 History and Physical has been reviewed, including an updated exam of the patient. There are NO changes in the patient's condition. Risks, benefits, and alternatives have been discussed and questions answered. Patient agrees to proceed with procedure.
[2025-03-16] MEDS: LIDO 1%/EPINEPHRINE 1:100,000 50 ML VIAL 10 ML INFILTRATE (15:05)
[2025-03-16] MEDS: ceFAZolin 2 GM in SODIUM CHLORIDE 0.9% IV 50 ML 100 ML IVPB (15:05)
--- NOTE | 2025-03-16 16:57 | P.OP_ITS ---
Procedure Note - Detailed Date of Procedure 03/16/25 Pre-op Diagnosis Left L5-S1 foraminal stenosis, status post L5-S1 fusion Post-op Diagnosis Same Procedure Performed L5-S1 revision posterior instrumentation, L5-S1 left side foraminotomy Surgeon Hao Silvestre MD Anesthesia General Description of Procedure Patient was brought to the operating room in supine position, was sedated, intubated placed under general anesthesia in routine fashion. She was then turned into the prone position on open Morteza table. The of operation on her back was examined, marked for incision, prepped and draped in routine sterile fashion. Incision was marked over the previous incision in the midline in the lumbar spine. This area was injected with 0.5% lidocaine with [id number] epinephrine. Intravenous antibiotics given prior to incision. Incision was made with a 10 blade scalpel. Strauss scissors were used to cut the dermal and fascial sutures. Self-retaining retractors placed. A significant amount of hematoma was encountered and was removed using suction. The dura or the scar over the dura was identified. The instrumentation on the left side was uncovered. Using the appropriate haul truck driver the caps were removed at L5 and S1 and the srinath lifted out. A curved curette and Kerrison punches were used to define the bone edges, the pedicle and the dura and remove additional bone and ligament over the nerve root out the foramen. An Myla curette was used to push material down from underneath the nerve which was removed with a pituitary rongeur. Exploration was carried out anterior to the dura at the L5-S1 level. The the interbody device was identified. It did not seem to be pushing into the foramen significantly or affecting the L5 nerve root but it was tamped anteriorly in the disc space of to make more room in the foramen. While it was tamped quite anterior, it was still between the bones and the it was left in this position. A new srinath was placed in the screw heads at L5 and S1 and distraction placed over the level walk caps were definitively tightened. A dental instrument and a curved curette were used to feel above and below the nerve confirm lack of compression which was confirmed. The wound was copiously irrigated with bacitracin irrigation all bleeding stopped bipolar and Bovie cautery and Gelfoam thrombin powder. The wound was then closed over a medium Hemovac drain left the subfascial position. I to the inferior right of the incision. 2-0 Vicryl interrupted sutures were placed in the lumbodorsal fascia and Shawn's layer. 3-0 Vicryl buried interrupted sutures were placed in the dermis and the skin was stapled. The patient was allowed to wake up in the operating room and was taken to the recovery room in stable condition. There were no immediate complications of this operation. All counts reported correct at the end of the case. Blood loss was 100 cc. Patient was neurologically at her baseline postoperatively. Estimated Blood Loss 110 Drains Yes Complications None Condition Stable Disposition PACU [facility] Billing Surgery - Charge Forward: Surgery Billing
[2025-03-16] MEDS: ACETAMINOPHEN 325 MG TABLET 650 MG PO ×2 (18:34→22:55)
[2025-03-16] MEDS: SENNA/DOCUSATE SODIUM TABLET 1 TAB PO (18:34)
[2025-03-16] MEDS: CEFEPIME 2 GM in SODIUM CHLORIDE 0.9% IV 50 ML 100 ML IVPB (18:34)
[2025-03-16] MEDS: VANCOMYCIN 2,000 MG/NS 500 ML 2,000 MG/500 ML BAG 250 MG IVPB (19:34)
[2025-03-16] MEDS: DOCUSATE SODIUM 100 MG CAPSULE PO (22:53)
[2025-03-17] VITALS: BP 128/61; PULSE 91; RESP 18; TEMP 36.2; O2SAT 94
[2025-03-17 04:00] VITALS: BP 142/53; PULSE 85; RESP 18; TEMP 36.5; O2SAT 97
[2025-03-17 05:37] LABS: Hematocrit 26.4 % (37.0-47.0); Hemoglobin 8.1 g/dL (12.0-15.0); Mean Corpuscular HGB Conc 30.7 g/dl (32-36); Mean Corpuscular Hemoglobin 29.0 pg (26-34); Mean Corpuscular Volume 94.6 fl (80-100); Platelet Count Result 306 k/mm3 (150-375); Red Blood Count 2.79 M/mm3 (4.2-5.4); White Blood Count 5.6 K/mm3 (4.5-10.0)
[2025-03-17] MEDS: CEFEPIME 2 GM in SODIUM CHLORIDE 0.9% IV 50 ML 100 ML IVPB ×2 (05:38→17:08)
[2025-03-17] MEDS: LEVOTHYROXINE SODIUM 50 MCG TABLET PO (05:39)
[2025-03-17] MEDS: oxyCODONE/ACETAMINOPHEN (*CRX) 10-325 MG TABLET 1 TAB PO ×4 (05:39→21:21)
[2025-03-17] MEDS: ACETAMINOPHEN 325 MG TABLET 650 MG PO ×3 (05:39→17:07)
[2025-03-17 05:49] LABS: Alanine Aminotransferase 24 U/L (6-35); Albumin Level 3.3 g/dL (3.5-5.1); Alkaline Phosphatase 94 U/L (38-126); Anion Gap 3 mmol/L (4-12); Aspartate Amino Transferase 25 U/L (14-36); Bilirubin,Total 0.2 mg/dL (0.2-1.3); Blood Urea Nitrogen 15 mg/dL (7-17); Calcium 8.9 mg/dL (8.4-10.2); Carbon Dioxide 29 mmol/L (22-30); Chloride 102 mmol/L (98-107); Estimated CRCL calculation 62 ml/min; Estimated Glomerular Filt Rate > 60; Glucose 121 mg/dL (65-110); Potassium 5.0 mmol/L (3.4-5.0); Sodium 134 mmol/L (137-145); Total Protein 6.1 g/dL (6.3-8.2)
--- NOTE | 2025-03-17 07:58 | PM.IMPN ---
Progress Note: A&P Assessment and Plan (1) Back pain: Qualifiers: Back pain laterality: bilateral Back pain location: low back pain Chronicity: acute Sciatica laterality: sciatica of right side Sciatica presence: with sciatica Qualified Code(s): M54.41 - Lumbago with sciatica, right side Code(s): M54.9 - Dorsalgia, unspecified Status: Acute Assessment and Plan: s/p L5-S1 posterior lumbar interbody fusion and L3-4 hemilaminectomy 01/10/[address] Silvestre. Initially complicated by post-operative pain. Plain films demonstrated good position of the hardware and interbody devices with the exception of the left srinath which seems to not be seated in the left S1 screw head per patient's neurosurgeon. CT was completed on 03/01 (see impression below) as follow-up on this imaging. Patient has also developed new difficulty urinating for the past week, historically has had urinary incontinence for years. - CT lumbar spine, 03/01: 1. Severe lower lumbar spondylosis status post interval L5 laminectomy and combined instrumented L5-S1 anterior and posterior spinal fusion. Of note there appears to be a subacute to early chronic still discernible nondisplaced coronally oriented fracture extends across the anterior base of the right L5 pedicle. 2. Although significantly more limited on CT than with MRI particularly in the presence of streak artifact related to the metallic instrumentation, there appears to be increased soft tissue density at the laminectomy bed with suggestion of moderate residual central canal stenosis at this level. Would consider further evaluation with MRI as clinically indicated. 3. Interval instrumented left sacroiliac arthrodesis. - CT was repeated on 03/10: 1. Again seen are changes of combined instrumented L5-S1 anterior and posterior spinal fusion with revision of the connection between the vertical srinath and the left S1 pedicle screw, placement of new bone graft material bilaterally and decompression with surgical drain placement at a postoperative hematoma/seroma at the laminectomy bed. 2. Redemonstration of nondisplaced fracture across the base of the right pedicle of L5 with some lucency along the cephalad margin of the right L5 pedicle screw at the level of the vertebral body. 3. Unchanged instrumented left sacroiliac arthrodesis. Lumbar spine MRI 03/13: 1. Severe lumbar spondylosis. 2. Anterior and posterior fusion procedures at L5-S1. 3. Worsened fluid collection involving the surgical bed of the L5 posterior elements extending superiorly in the subcutaneous region. This finding may be a seroma, hematoma, or abscess. - analgesics - Scheduled Tylenol 650 q6h. Gabapentin 300 mg BID, [place] 5-325 or 10-325 q4h PRN, Valium 5 mg TID PRN, dilaudid 0.25 mg q2h PRN Reviewed pain medications, currently stable on the oral regimen. - PT/OT - neurosurgery consulted s/p lumbar wound exploration for seroma, revision of posterior instrumentation L5-S1, redo posterolateral fusion L5-S1 on 03/[address] Silvestre. Drain removed per neurosurgery. s/p left L5-S1 foraminotomy and revision on 03/[address] Silvestre. Hemovac placed at that time. maintain drain until minimal output from the drain as this may or may not have been an infected seroma. - ID consulted as possible abscess seen on the the MRI obtained on 03/14 Wound culture obtained on 03/16: pending Started on empiric cefepime, metronidazole, and vancomycin on 03/16 following surgical revision (2) Peripheral edema: Code(s): R60.0 - Localized edema Status: Acute Assessment and Plan: Reporting new, significant BLE edema. BNP WNL for age and CXR did not demonstrate any pulmonary edema. S/p lumbar surgery in December of 2024. Possible complications noted on imaging, see above. Possible complication to lumbar surgery/immobility - neli wraps as tolerated, may d/c at night to sleep - BLE VD on 03/06 and 03/10: negative for DVT - mobilize as able. Elevate lower extremities. (3) Urinary tract infection: Code(s): N39.0 - Urinary tract infection, site not specified Status: Acute Assessment and Plan: - UA with positive nitrates, 1+ LE, 6-10 WBC - patient reports urinary hesitancy - previous culture with pansensitive Klebsiella - start IV Rocephin - urine culture grew pansenstive ecoli Completed antibiotic course. Denies UTI like symptoms. (4) Hypertension: Qualifiers: Hypertension type: primary hypertension Qualified Code(s): I10 - Essential (primary) hypertension Code(s): I10 - Essential (primary) hypertension Status: Chronic Assessment and Plan: - continue home medications: HCTZ 12.5 mg daily , lisinopril 10 mg daily - blood pressures stable, continue to monitor (5) Anemia: Code(s): D64.9 - Anemia, unspecified Status: Acute Assessment and Plan: - Hgb 11.7 7/3. 9.5 on admission, trended down to 8.6 - may have component of hemodilution as patient was on fluids at that time - denied signs of bleeding. unable to collect stool but reported no blood noted. - check iron studies - monitor CBC. Transfuse Hgb <7. iron panel showing deficiency, iron replacement stated no c/o dizziness, lightheadedness H/H remains stable, continue to monitor closely Time Spent With Patient Time with patient: 25 - 35 minutes Subjective Date/time seen: 03/17/25 07:58 Interval history: 75 year old female with past medical history of mitral valve prolapse, hypothyroidism, hyperlipidemia, asthma, and hypertension presents to the hospital with back pain and lower extremity edema. Patient is pleasant sitting up bed. She is endorsing lower back pain that she associates with the drain insertion site. She states that the left lower extremity pain has significantly improved is no longer endorsing any sharp pains. She does note pain to the left foot that she describes as a pressure but states that the swelling has slightly improved. Sensation remains intact. Patient has no other complaints denying chest pain, shortness a breath, palpitations, nausea/vomiting, and abdominal pain. Review of Systems Review of Systems: All systems reviewed & are unremarkable except as noted in HPI and below Exam Narrative: AF HR 87 RR 20 Spo2 96 BP 142/53 General: female in no acute respiratory distress who is nontoxic appearing, sitting up in bed. HEENT: Normocephalic. Atraumatic. Extraocular movement intact. Sclera clear and anicteric. No facial asymmetry. Chest: Lungs are clear to auscultation bilaterally. No wheezes or crackles. CV: Heart was regular rate and rhythm. Abd: Abdomen was soft. Nontender. Nondistended. Positive bowel sounds. Back: Drain in place with bloody output. Tenderness to drain insertion. Ext: No clubbing, cyanosis. Mild Edema to left lower extremity, improving from yesterday. DP pulses bilaterally. Neuro: Patient is alert. Sensation intact. Speech is clear. Objective Data Vital Signs Vital Signs: Vital Signs - 24 hr 03/16/25 08:25 03/16/25 09:17 03/16/25 13:36 Temperature 98.3 F Pulse Rate 98 Respiratory Rate 20 Blood Pressure 129/83 Pulse Oximetry 98 100 Oxygen Delivery Room Air Room Air Room Air Oxygen Flow Rate 03/16/25 16:53 03/16/25 17:00 03/16/25 17:15 Temperature 97.4 F L Pulse Rate 86 86 85 Respiratory Rate 10 L 10 L 12 Blood Pressure 125/73 123/64 127/71 Pulse Oximetry 100 100 100 Oxygen Delivery Simple Face Mask Simple Face Mask Simple Face Mask Oxygen Flow Rate 8 8 8 03/16/25 17:30 03/16/25 17:45 03/16/25 18:12 Temperature 97.7 F Pulse Rate 88 88 87 Respiratory Rate 16 12 16 Blood Pressure 142/79 H 134/80 148/78 H Pulse Oximetry 100 94 93 Oxygen Delivery Room Air Room Air Oxygen Flow Rate 03/16/25 18:27 03/16/25 18:57 03/16/25 19:45 Temperature 97.9 F 97.6 F 97.7 F Pulse Rate 91 91 88 Respiratory Rate 16 16 16 Blood Pressure 140/70 125/65 122/62 Pulse Oximetry 98 94 95 Oxygen Delivery Oxygen Flow Rate 03/17/25 00:00 03/17/25 04:00 Temperature 97.2 F L 97.7 F Pulse Rate 91 85 Respiratory Rate 18 18 Blood Pressure 128/61 142/53 H Pulse Oximetry 94 97 Oxygen Delivery Oxygen Flow Rate Intake/Output Intake/Output: Intake & Output 03/14/25 03/15/25 03/16/25 03/17/25 23:59 23:59 23:59 23:59 Intake Total 1120 650 500 250 Output Total 1850 1900 2200 500 Balance -730 -1250 -1700 -250 Meds/Results Medications: Active Medications Generic Name Dose Route Start Last Admin Trade Name Freq PRN Reason Stop Dose Admin Acetaminophen 650 mg 03/16/25 11:20 03/17/25 05:39 Acetaminophen 325 Mg Tablet PO 650 mg Q6HR LANG Administration Al Hydrox/Mg Hydrox/Simethicone 20 ml 03/08/25 17:12 Mag Hydrox/Al Hydrox/Simeth 30 Ml Udc PO Q4H PRN Indigestion/Heartburn Albuterol 1 puff 03/06/25 21:53 Albuterol Sulfate (*Sp) Aerosol 1 Puff INHALATION Q4-6H PRN Wheezing Bisacodyl 10 mg 03/08/25 17:12 Bisacodyl 10 Mg Suppository RECTAL DAILY PRN Constipation Calcium Carbonate 500 mg 03/07/25 12:00 03/16/25 15:42 Calcium Carbonate (Oscal) 500 Mg Tablet PO Not Given DAILY@1200 [facility] Diazepam 5 mg 03/11/25 17:10 03/16/25 09:56 Diazepam (*Crx) 5 Mg Tablet PO 5 mg TID PRN Administration Muscle Spasm Docusate Sodium 100 mg 03/06/25 17:06 Docusate Sodium 100 Mg Capsule PO Q12H PRN Constipation Docusate Sodium 100 mg 03/08/25 21:00 03/16/25 22:53 Docusate Sodium 100 Mg Capsule PO 100 mg Q12HR [facility] Administration Enoxaparin Sodium 40 mg 03/12/25 13:40 03/16/25 11:04 Enoxaparin 40 Mg/0.4 Ml Syringe SUB-Q Not Given DAILY [facility] Gabapentin 300 mg 03/06/25 21:40 03/16/25 22:53 Gabapentin 300 Mg Capsule PO 300 mg Q12HR LANG Administration Hydrochlorothiazide 12.5 mg 03/07/25 09:00 03/16/25 11:03 Hydrochlorothiazide 12.5 Mg Capsule PO Not Given DAILY [facility] Hydromorphone HCl 0.5 mg 03/08/25 17:12 03/16/25 13:30 Hydromorphone Hcl Inj (*Crx) 1 Mg/Ml Syr IV PUSH 0.5 mg Q2H PRN Administration Pain Rated 7-10 Hydromorphone HCl 0.25 mg 03/16/25 13:51 Hydromorphone Hcl Inj (*Crx) 1 Mg/Ml Syr IV PUSH Q5M PRN Pain Hydroxyzine HCl 25 mg 03/06/25 21:38 03/15/25 22:58 Hydroxyzine Hcl 25 Mg Tablet PO 25 mg QID PRN Administration Anxiety Cefepime HCl 2 gm/ Sodium 50 mls @ 100 mls/hr 03/16/25 18:00 03/17/25 06:08 Chloride IVPB Infused Q12H [facility] Infusion Vancomycin HCl 1,500 mg in 500 mls @ 250 mls/hr 03/17/25 13:00 Vancomycin 1,500 Mg/Ns 500 Ml IVPB Q18H [facility] Levothyroxine Sodium 50 mcg 03/07/25 06:30 03/17/25 05:39 Levothyroxine Sodium 50 Mcg Tablet PO 50 mcg DAILY@0630 [facility] Administration Lidocaine 1 patch 03/11/25 09:00 03/16/25 11:03 Lidocaine 5% Patch TRANSDERM Not Given DAILY [facility] Lisinopril 10 mg 03/07/25 09:00 03/16/25 11:03 Lisinopril 10 Mg Tablet PO Not Given DAILY [facility] Loratadine 10 mg 03/06/25 21:44 Loratadine 10 Mg Tablet PO DAILY PRN Congestion Meclizine HCl 25 mg 03/06/25 21:38 03/14/25 10:09 Meclizine Hcl 25 Mg Tablet PO 25 mg TID PRN Administration Dizziness Or Vertigo Metronidazole 500 mg 03/16/25 17:00 03/17/25 05:39 Metronidazole 500 Mg Tablet PO 500 mg Q8HR [facility] Administration Multivitamins Therapeutic 1 tablet 03/07/25 12:00 03/16/25 15:42 Multivitamins Therapeutic Tab (*Bkc) PO Not Given DAILY@1200 [facility] Ondansetron HCl 4 mg 03/06/25 17:01 03/13/25 11:09 Ondansetron Hcl Odt 4 Mg Tablet PO 4 mg Q6H PRN Administration Nausea And Vomiting Ondansetron HCl 4 mg 03/08/25 17:12 Ondansetron Inj 4 Mg/2 Ml Vial IV PUSH Q8H PRN Nausea And Vomiting Oxycodone/Acetaminophen 1 tab 03/07/25 10:39 03/17/25 05:39 Oxycodone/Acetaminophen (*Crx) 10-325 Mg Tablet PO 1 tab Q4H PRN Administration Pain Rated 7-10 Oxycodone/Acetaminophen 1 tablet 03/08/25 17:12 Oxycodone/Acetaminophen (*Crx) 5-325 Mg Tablet PO Q4H PRN Mild Pain (1-3) Oxycodone/Acetaminophen 1 tab 03/08/25 17:12 03/08/25 22:52 Oxycodone/Acetaminophen (*Crx) 10-325 Mg Tablet PO 1 tab Q4H PRN Administration Moderate Pain (4-6) Pantoprazole Sodium 40 mg 03/07/25 09:00 03/16/25 11:03 Pantoprazole 40 Mg Tablet PO Not Given QAM LANG Polyethylene Glycol 17 gm 03/06/25 17:06 Polyethylene Glycol 3350 17 Gm Powd.Pack PO QAM PRN Constipation Fluticasone/Salmeterol 2 puff 03/07/25 08:00 03/16/25 09:17 Fluticasone/Salmeterol 45-21 Mcg Inhaler 1 Puff INHALATION 2 puff DAILYRT LANG Administration Senna/Docusate Sodium 1 tab 03/08/25 17:12 03/11/25 05:35 Senna/Docusate Sodium Tablet PO 1 tab HS PRN Administration Constipation Senna/Docusate Sodium 1 tab 03/09/25 17:00 03/16/25 18:34 Senna/Docusate Sodium Tablet PO 1 tab BID LANG Administration Simvastatin 40 mg 03/07/25 09:00 03/16/25 11:03 Simvastatin 20 Mg Tablet PO Not Given DAILY [facility] Vitamin D 25 mcg 03/07/25 09:00 03/16/25 11:03 Cholecalciferol (Vitamin D3) 25 Mcg (1,000 Units) Tablet PO Not Given DAILY [facility] Vitamin D 250 mcg 03/07/25 09:00 03/16/25 11:03 Cholecalciferol (Vitamin D3) 125 Mcg (5,000 Units) Tablet PO Not Given DAILY [facility] Radiology Results: ITS Impressions Chest X-Ray 03/06/25 16:17 IMPRESSION: 1: NO ACUTE CARDIOPULMONARY DISEASE. Venous Doppler Study 03/10/25 09:45 IMPRESSION: 1: No left lower extremity deep venous thrombosis. Lumbar Spine CT 03/10/25 15:39 IMPRESSION: 1. Again seen are changes of combined instrumented L5-S1 anterior and posterior spinal fusion with revision of the connection between the vertical srinath and the left S1 pedicle screw, placement of new bone graft material bilaterally and decompression with surgical drain placement at a postoperative hematoma/seroma at the laminectomy bed. 2. Redemonstration of nondisplaced fracture across the base of the right pedicle of L5 with some lucency along the cephalad margin of the right L5 pedicle screw at the level of the vertebral body. 3. Unchanged instrumented left sacroiliac arthrodesis. Lumbar Spine MRI 03/13/25 17:24 IMPRESSION: 1. Severe lumbar spondylosis. 2. Anterior and posterior fusion procedures at L5-S1. 3. Worsened fluid collection involving the surgical bed of the L5 posterior elements extending superiorly in the subcutaneous region. This finding may be a seroma, hematoma, or abscess. Fluoroscopy 03/16/25 18:37 IMPRESSION: 1. Fluoroscopy utilized during interpretation of an instrumented combined L5-S1 anterior and posterior spinal fusion. See procedure note for further detail. Labs Labs: Laboratory Results - last 24 hr 03/17/25 05:10 WBC 5.6 RBC 2.79 L Hgb 8.1 L Hct 26.4 L MCV 94.6 MCH 29.0 MCHC 30.7 L RDW 14.8 H Plt Count 306 MPV 10.6 H Sodium 134 L Potassium 5.0 Chloride 102 Carbon Dioxide 29 Anion Gap 3 L BUN 15 Creatinine 0.69 L Estim Creat Clear Calc 62 Estimated GFR > 60 Glucose 121 H Calcium 8.9 Total Bilirubin 0.2 AST 25 ALT 24 Alkaline Phosphatase 94 Total Protein 6.1 L Albumin 3.3 L Quality VTE Prophylaxis VTE prophylaxis: pharmacologic ordered
[2025-03-17 08:50] VITALS: PULSE 87; RESP 20; O2SAT 96
[2025-03-17] MEDS: FLUTICASONE/SALMETEROL 45-21 MCG INHALER 1 PUFF 2 PUFF INHALATION (08:50)
[2025-03-17] MEDS: SIMVASTATIN 20 MG TABLET 40 MG PO (09:19)
[2025-03-17] MEDS: PANTOPRAZOLE 40 MG TABLET PO (09:19)
[2025-03-17] MEDS: ENOXAPARIN 40 MG/0.4 ML SYRINGE SUB-Q (09:19)
[2025-03-17] MEDS: SENNA/DOCUSATE SODIUM TABLET 1 TAB PO ×2 (09:19→17:08)
[2025-03-17] MEDS: DOCUSATE SODIUM 100 MG CAPSULE PO ×2 (09:19→21:23)
[2025-03-17] MEDS: CHOLECALCIFEROL (VITAMIN D3) 125 MCG (5,000 UNITS) TABLET 250 MCG PO (09:19)
[2025-03-17] MEDS: GABAPENTIN 300 MG CAPSULE PO ×2 (09:19→21:23)
[2025-03-17] MEDS: CHOLECALCIFEROL (VITAMIN D3) 25 MCG (1,000 UNITS) TABLET PO (09:19)
[2025-03-17] MEDS: diazePAM (*CRX) 5 MG TABLET PO ×2 (09:23→21:22)
--- NOTE | 2025-03-17 09:52 | WPDINFPN2 ---
Progress Note: A&P Assessment and Plan (1) Inflammatory spondylopathy of sacral region: Code(s): M46.98 - Unspecified inflammatory spondylopathy, sacral and sacrococcygeal region Status: Acute (2) Acute post-operative pain: Code(s): G89.18 - Other acute postprocedural pain Status: Acute (3) Hematoma following procedure: Status: Acute (4) Urinary tract infection: Code(s): N39.0 - Urinary tract infection, site not specified Status: Acute (5) Edema of left lower extremity: Code(s): R60.0 - Localized edema Status: Acute (6) Antibiotic causing adverse effect: Code(s): T36.95XA - Adverse effect of unspecified systemic antibiotic, initial encounter Status: Acute Plan # Postoperative lumbosacral recurrent fluid collection. -- status post surgical site revision with evacuation 03/08/2025 but with recurrence. Now status post L5-S1 revision posterior instrumentation, L5-S1 left side foraminotomy with evacuation of hematoma and obtainment of cultures 03/16/2025. -- seroma/hematoma without clinical evidence of abscess noted 03/08/2025. Similar hematoma encountered 03/16/2025. In addition, she has been without fever, leukocytosis, or elevated CRP at the time of presentation and remains without fever or leukocytosis since. -- recurrent fluid collection may again represent seroma/hematoma but can not completely rule out the possibility of secondary infected fluid collection (abscess). However, might expect fever and or leukocytosis if that were the case. # Status post treatment for E coli UTI on presentation. --completed treatment with ceftriaxone. # Reported hives allergy to penicillin and additional allergy to sulfa medications. -- proven to tolerate cephalosporins. Plan: -- cefepime and vancomycin started after yesterday's operative procedure and obtainment of site cultures. -- await operative cultures. Patient was seen via video telehealth consultation with the assistance of staff. Chart, data, and patient independently reviewed. Patient was located at [facility] while I was located in my [place] office. Received verbal consent from patient. Subjective Date/time seen: 03/17/25 09:52 Interval history: 03/16/2025: For lumbar surgical site revision. 03/17/2025: Afebrile and vital signs stable. White blood cell count normal. Status post L5-S1 revision posterior instrumentation, L5-S1 left side foraminotomy 03/16/2025. A significant amount of hematoma was encountered and evacuated during the procedure. Aerobic and anaerobic cultures obtained. Still with back pain today and left foot numbness but left leg pain has improved. Review of Systems Review of Systems: All systems reviewed & are unremarkable except as noted in HPI and below Exam Narrative: Sitting up at the side of the bed and working with physical therapy. In better spirits today. No respiratory difficulty. No significant abdominal distension. Back surgical site Hemovac in place with bloody drainage present. No rash. Objective Data Vital Signs Vital Signs: Vital Signs - 24 hr 03/16/25 13:36 03/16/25 16:53 03/16/25 17:00 Temperature 98.3 F 97.4 F L Pulse Rate 98 86 86 Respiratory Rate 20 10 L 10 L Blood Pressure 129/83 125/73 123/64 Pulse Oximetry 100 100 100 Oxygen Delivery Room Air Simple Face Mask Simple Face Mask Oxygen Flow Rate 8 8 03/16/25 17:15 03/16/25 17:30 03/16/25 17:45 Temperature Pulse Rate 85 88 88 Respiratory Rate 12 16 12 Blood Pressure 127/71 142/79 H 134/80 Pulse Oximetry 100 100 94 Oxygen Delivery Simple Face Mask Room Air Room Air Oxygen Flow Rate 8 03/16/25 18:12 03/16/25 18:27 03/16/25 18:57 Temperature 97.7 F 97.9 F 97.6 F Pulse Rate 87 91 91 Respiratory Rate 16 16 16 Blood Pressure 148/78 H 140/70 125/65 Pulse Oximetry 93 98 94 Oxygen Delivery Oxygen Flow Rate 03/16/25 19:45 03/17/25 00:00 03/17/25 04:00 Temperature 97.7 F 97.2 F L 97.7 F Pulse Rate 88 91 85 Respiratory Rate 16 18 18 Blood Pressure 122/62 128/61 142/53 H Pulse Oximetry 95 94 97 Oxygen Delivery Oxygen Flow Rate Intake/Output Intake/Output: Intake & Output 03/14/25 03/15/25 03/16/25 03/17/25 23:59 23:59 23:59 23:59 Intake Total 1120 650 500 250 Output Total 1850 1900 2200 500 Balance -730 -1250 -1700 -250 Meds/Results Medications: Active Medications Generic Name Dose Route Start Last Admin Trade Name Freq PRN Reason Stop Dose Admin Acetaminophen 650 mg 03/16/25 11:20 03/17/25 05:39 Acetaminophen 325 Mg Tablet PO 650 mg Q6HR LANG Administration Al Hydrox/Mg Hydrox/Simethicone 20 ml 03/08/25 17:12 Mag Hydrox/Al Hydrox/Simeth 30 Ml Udc PO Q4H PRN Indigestion/Heartburn Albuterol 1 puff 03/06/25 21:53 Albuterol Sulfate (*Sp) Aerosol 1 Puff INHALATION Q4-6H PRN Wheezing Bisacodyl 10 mg 03/08/25 17:12 Bisacodyl 10 Mg Suppository RECTAL DAILY PRN Constipation Calcium Carbonate 500 mg 03/07/25 12:00 03/16/25 15:42 Calcium Carbonate (Oscal) 500 Mg Tablet PO Not Given DAILY@1200 [facility] Diazepam 5 mg 03/11/25 17:10 03/17/25 09:23 Diazepam (*Crx) 5 Mg Tablet PO 5 mg TID PRN Administration Muscle Spasm Docusate Sodium 100 mg 03/06/25 17:06 Docusate Sodium 100 Mg Capsule PO Q12H PRN Constipation Docusate Sodium 100 mg 03/08/25 21:00 03/17/25 09:19 Docusate Sodium 100 Mg Capsule PO 100 mg Q12HR LANG Administration Enoxaparin Sodium 40 mg 03/12/25 13:40 03/17/25 09:19 Enoxaparin 40 Mg/0.4 Ml Syringe SUB-Q 40 mg DAILY LANG Administration Gabapentin 300 mg 03/06/25 21:40 03/17/25 09:19 Gabapentin 300 Mg Capsule PO 300 mg Q12HR LANG Administration Hydrochlorothiazide 12.5 mg 03/07/25 09:00 03/17/25 09:19 Hydrochlorothiazide 12.5 Mg Capsule PO 12.5 mg DAILY LANG Administration Hydromorphone HCl 0.5 mg 03/08/25 17:12 03/16/25 13:30 Hydromorphone Hcl Inj (*Crx) 1 Mg/Ml Syr IV PUSH 0.5 mg Q2H PRN Administration Pain Rated 7-10 Hydromorphone HCl 0.25 mg 03/16/25 13:51 Hydromorphone Hcl Inj (*Crx) 1 Mg/Ml Syr IV PUSH Q5M PRN Pain Hydroxyzine HCl 25 mg 03/06/25 21:38 03/15/25 22:58 Hydroxyzine Hcl 25 Mg Tablet PO 25 mg QID PRN Administration Anxiety Cefepime HCl 2 gm/ Sodium 50 mls @ 100 mls/hr 03/16/25 18:00 03/17/25 06:08 Chloride IVPB Infused Q12H LANG Infusion Vancomycin HCl 1,500 mg in 500 mls @ 250 mls/hr 03/17/25 13:00 Vancomycin 1,500 Mg/Ns 500 Ml IVPB Q18H LANG Levothyroxine Sodium 50 mcg 03/07/25 06:30 03/17/25 05:39 Levothyroxine Sodium 50 Mcg Tablet PO 50 mcg DAILY@0630 [facility] Administration Lidocaine 1 patch 03/11/25 09:00 03/17/25 09:21 Lidocaine 5% Patch TRANSDERM 1 patch DAILY LANG Administration Lisinopril 10 mg 03/07/25 09:00 03/17/25 09:19 Lisinopril 10 Mg Tablet PO 10 mg DAILY LANG Administration Loratadine 10 mg 03/06/25 21:44 Loratadine 10 Mg Tablet PO DAILY PRN Congestion Meclizine HCl 25 mg 03/06/25 21:38 03/14/25 10:09 Meclizine Hcl 25 Mg Tablet PO 25 mg TID PRN Administration Dizziness Or Vertigo Metronidazole 500 mg 03/16/25 17:00 03/17/25 05:39 Metronidazole 500 Mg Tablet PO 500 mg Q8HR [facility] Administration Multivitamins Therapeutic 1 tablet 03/07/25 12:00 03/16/25 15:42 Multivitamins Therapeutic Tab (*Bkc) PO Not Given DAILY@1200 [facility] Ondansetron HCl 4 mg 03/06/25 17:01 03/13/25 11:09 Ondansetron Hcl Odt 4 Mg Tablet PO 4 mg Q6H PRN Administration Nausea And Vomiting Ondansetron HCl 4 mg 03/08/25 17:12 Ondansetron Inj 4 Mg/2 Ml Vial IV PUSH Q8H PRN Nausea And Vomiting Oxycodone/Acetaminophen 1 tab 03/07/25 10:39 03/17/25 09:20 Oxycodone/Acetaminophen (*Crx) 10-325 Mg Tablet PO 1 tab Q4H PRN Administration Pain Rated 7-10 Oxycodone/Acetaminophen 1 tablet 03/08/25 17:12 Oxycodone/Acetaminophen (*Crx) 5-325 Mg Tablet PO Q4H PRN Mild Pain (1-3) Oxycodone/Acetaminophen 1 tab 03/08/25 17:12 03/08/25 22:52 Oxycodone/Acetaminophen (*Crx) 10-325 Mg Tablet PO 1 tab Q4H PRN Administration Moderate Pain (4-6) Pantoprazole Sodium 40 mg 03/07/25 09:00 03/17/25 09:19 Pantoprazole 40 Mg Tablet PO 40 mg QAM LANG Administration Polyethylene Glycol 17 gm 03/06/25 17:06 Polyethylene Glycol 3350 17 Gm Powd.Pack PO QAM PRN Constipation Fluticasone/Salmeterol 2 puff 03/07/25 08:00 03/17/25 08:50 Fluticasone/Salmeterol 45-21 Mcg Inhaler 1 Puff INHALATION 2 puff DAILYRT LANG Administration Senna/Docusate Sodium 1 tab 03/08/25 17:12 03/11/25 05:35 Senna/Docusate Sodium Tablet PO 1 tab HS PRN Administration Constipation Senna/Docusate Sodium 1 tab 03/09/25 17:00 03/17/25 09:19 Senna/Docusate Sodium Tablet PO 1 tab BID LANG Administration Simvastatin 40 mg 03/07/25 09:00 03/17/25 09:19 Simvastatin 20 Mg Tablet PO 40 mg DAILY LANG Administration Vitamin D 25 mcg 03/07/25 09:00 03/17/25 09:19 Cholecalciferol (Vitamin D3) 25 Mcg (1,000 Units) Tablet PO 25 mcg DAILY LANG Administration Vitamin D 250 mcg 03/07/25 09:00 03/17/25 09:19 Cholecalciferol (Vitamin D3) 125 Mcg (5,000 Units) Tablet PO 250 mcg DAILY LANG Administration Radiology Results: ITS Impressions Chest X-Ray 03/06/25 16:17 IMPRESSION: 1: NO ACUTE CARDIOPULMONARY DISEASE. Venous Doppler Study 03/10/25 09:45 IMPRESSION: 1: No left lower extremity deep venous thrombosis. Lumbar Spine CT 03/10/25 15:39 IMPRESSION: 1. Again seen are changes of combined instrumented L5-S1 anterior and posterior spinal fusion with revision of the connection between the vertical srinath and the left S1 pedicle screw, placement of new bone graft material bilaterally and decompression with surgical drain placement at a postoperative hematoma/seroma at the laminectomy bed. 2. Redemonstration of nondisplaced fracture across the base of the right pedicle of L5 with some lucency along the cephalad margin of the right L5 pedicle screw at the level of the vertebral body. 3. Unchanged instrumented left sacroiliac arthrodesis. Lumbar Spine MRI 03/13/25 17:24 IMPRESSION: 1. Severe lumbar spondylosis. 2. Anterior and posterior fusion procedures at L5-S1. 3. Worsened fluid collection involving the surgical bed of the L5 posterior elements extending superiorly in the subcutaneous region. This finding may be a seroma, hematoma, or abscess. Fluoroscopy 03/16/25 18:37 IMPRESSION: 1. Fluoroscopy utilized during interpretation of an instrumented combined L5-S1 anterior and posterior spinal fusion. See procedure note for further detail. Labs Labs: Laboratory Results - last 24 hr 03/17/25 05:10 WBC 5.6 RBC 2.79 L Hgb 8.1 L Hct 26.4 L MCV 94.6 MCH 29.0 MCHC 30.7 L RDW 14.8 H Plt Count 306 MPV 10.6 H Sodium 134 L Potassium 5.0 Chloride 102 Carbon Dioxide 29 Anion Gap 3 L BUN 15 Creatinine 0.69 L Estim Creat Clear Calc 62 Estimated GFR > 60 Glucose 121 H Calcium 8.9 Total Bilirubin 0.2 AST 25 ALT 24 Alkaline Phosphatase 94 Total Protein 6.1 L Albumin 3.3 L
--- NOTE | 2025-03-17 10:05 | P.PNNEUSUR_ITS ---
Progress Note: A&P Assessment and Plan (1) Lumbar stenosis: Code(s): M48.061 - Spinal stenosis, lumbar region without neurogenic claudication Status: Acute Assessment and Plan: the patient is doing well greatly appreciate Infectious Disease evaluation. The patient has told me that she might be started on several antibiotics to rule out possible infected fluid collection. She should maintain her drain until there is minimal output from the drain as this may or may not have been an infected seroma. Continue to follow cultures. She will likely remain over the weekend at minimum while she recovers and plan is formulated for antibiotics. She can work with physical therapy and occupational therapy. Rounding for Dr. Silvestre. Subjective Date/time seen: 03/17/25 10:05 Interval history: Patient is doing well she notes that she still has numbness in her left foot as well as some tingling sensation on the top of her foot on the left side. Exam Narrative: Strength is decreased in the left dorsiflexors but is otherwise normal symmetric in the bilateral lower extremities. Sensation is intact to light touch lower extremities Incision is clean dry and intact drain is holding suction Objective Data Vital Signs Vital Signs: Vital Signs - 24 hr 03/16/25 13:36 03/16/25 16:53 03/16/25 17:00 Temperature 98.3 F 97.4 F L Pulse Rate 98 86 86 Respiratory Rate 20 10 L 10 L Blood Pressure 129/83 125/73 123/64 Pulse Oximetry 100 100 100 Oxygen Delivery Room Air Simple Face Mask Simple Face Mask Oxygen Flow Rate 8 8 Fraction of Inspired Oxygen 03/16/25 17:15 03/16/25 17:30 03/16/25 17:45 Temperature Pulse Rate 85 88 88 Respiratory Rate 12 16 12 Blood Pressure 127/71 142/79 H 134/80 Pulse Oximetry 100 100 94 Oxygen Delivery Simple Face Mask Room Air Room Air Oxygen Flow Rate 8 Fraction of Inspired Oxygen 03/16/25 18:12 03/16/25 18:27 03/16/25 18:57 Temperature 97.7 F 97.9 F 97.6 F Pulse Rate 87 91 91 Respiratory Rate 16 16 16 Blood Pressure 148/78 H 140/70 125/65 Pulse Oximetry 93 98 94 Oxygen Delivery Oxygen Flow Rate Fraction of Inspired Oxygen 03/16/25 19:45 03/17/25 00:00 03/17/25 04:00 Temperature 97.7 F 97.2 F L 97.7 F Pulse Rate 88 91 85 Respiratory Rate 16 18 18 Blood Pressure 122/62 128/61 142/53 H Pulse Oximetry 95 94 97 Oxygen Delivery Oxygen Flow Rate Fraction of Inspired Oxygen 03/17/25 08:50 03/17/25 08:50 Temperature Pulse Rate 87 87 Respiratory Rate 20 20 Blood Pressure Pulse Oximetry 96 Oxygen Delivery Room Air Oxygen Flow Rate Fraction of Inspired Oxygen 21 Intake/Output Intake/Output: Intake & Output 03/14/25 03/15/25 03/16/25 03/17/25 23:59 23:59 23:59 23:59 Intake Total 1120 650 500 250 Output Total 1850 1900 2200 500 Balance -730 -3540 -1700 -250 Meds/Results Medications: Active Medications Generic Name Dose Route Start Last Admin Trade Name Freq PRN Reason Stop Dose Admin Acetaminophen 650 mg 03/16/25 11:20 03/17/25 05:39 Acetaminophen 325 Mg Tablet PO 650 mg Q6HR LANG Administration Al Hydrox/Mg Hydrox/Simethicone 20 ml 03/08/25 17:12 Mag Hydrox/Al Hydrox/Simeth 30 Ml Udc PO Q4H PRN Indigestion/Heartburn Albuterol 1 puff 03/06/25 21:53 Albuterol Sulfate (*Sp) Aerosol 1 Puff INHALATION Q4-6H PRN Wheezing Bisacodyl 10 mg 03/08/25 17:12 Bisacodyl 10 Mg Suppository RECTAL DAILY PRN Constipation Calcium Carbonate 500 mg 03/07/25 12:00 03/16/25 15:42 Calcium Carbonate (Oscal) 500 Mg Tablet PO Not Given DAILY@1200 [facility] Diazepam 5 mg 03/11/25 17:10 03/17/25 09:23 Diazepam (*Crx) 5 Mg Tablet PO 5 mg TID PRN Administration Muscle Spasm Docusate Sodium 100 mg 03/06/25 17:06 Docusate Sodium 100 Mg Capsule PO Q12H PRN Constipation Docusate Sodium 100 mg 03/08/25 21:00 03/17/25 09:19 Docusate Sodium 100 Mg Capsule PO 100 mg Q12HR LANG Administration Enoxaparin Sodium 40 mg 03/12/25 13:40 03/17/25 09:19 Enoxaparin 40 Mg/0.4 Ml Syringe SUB-Q 40 mg DAILY LANG Administration Gabapentin 300 mg 03/06/25 21:40 03/17/25 09:19 Gabapentin 300 Mg Capsule PO 300 mg Q12HR LANG Administration Hydrochlorothiazide 12.5 mg 03/07/25 09:00 03/17/25 09:19 Hydrochlorothiazide 12.5 Mg Capsule PO 12.5 mg DAILY LANG Administration Hydromorphone HCl 0.5 mg 03/08/25 17:12 03/16/25 13:30 Hydromorphone Hcl Inj (*Crx) 1 Mg/Ml Syr IV PUSH 0.5 mg Q2H PRN Administration Pain Rated 7-10 Hydromorphone HCl 0.25 mg 03/16/25 13:51 Hydromorphone Hcl Inj (*Crx) 1 Mg/Ml Syr IV PUSH Q5M PRN Pain Hydroxyzine HCl 25 mg 03/06/25 21:38 03/15/25 22:58 Hydroxyzine Hcl 25 Mg Tablet PO 25 mg QID PRN Administration Anxiety Cefepime HCl 2 gm/ Sodium 50 mls @ 100 mls/hr 03/16/25 18:00 03/17/25 06:08 Chloride IVPB Infused Q12H LANG Infusion Vancomycin HCl 1,500 mg in 500 mls @ 250 mls/hr 03/17/25 13:00 Vancomycin 1,500 Mg/Ns 500 Ml IVPB Q18H LANG Levothyroxine Sodium 50 mcg 03/07/25 06:30 03/17/25 05:39 Levothyroxine Sodium 50 Mcg Tablet PO 50 mcg DAILY@0630 L[facility] Administration Lidocaine 1 patch 03/11/25 09:00 03/17/25 09:21 Lidocaine 5% Patch TRANSDERM 1 patch DAILY LANG Administration Lisinopril 10 mg 03/07/25 09:00 03/17/25 09:19 Lisinopril 10 Mg Tablet PO 10 mg DAILY LANG Administration Loratadine 10 mg 03/06/25 21:44 Loratadine 10 Mg Tablet PO DAILY PRN Congestion Meclizine HCl 25 mg 03/06/25 21:38 03/14/25 10:09 Meclizine Hcl 25 Mg Tablet PO 25 mg TID PRN Administration Dizziness Or Vertigo Metronidazole 500 mg 03/16/25 17:00 03/17/25 05:39 Metronidazole 500 Mg Tablet PO 500 mg Q8HR LANG Administration Multivitamins Therapeutic 1 tablet 03/07/25 12:00 03/16/25 15:42 Multivitamins Therapeutic Tab (*Bkc) PO Not Given DAILY@1200 [facility] Ondansetron HCl 4 mg 03/06/25 17:01 03/13/25 11:09 Ondansetron Hcl Odt 4 Mg Tablet PO 4 mg Q6H PRN Administration Nausea And Vomiting Ondansetron HCl 4 mg 03/08/25 17:12 Ondansetron Inj 4 Mg/2 Ml Vial IV PUSH Q8H PRN Nausea And Vomiting Oxycodone/Acetaminophen 1 tab 03/07/25 10:39 03/17/25 09:20 Oxycodone/Acetaminophen (*Crx) 10-325 Mg Tablet PO 1 tab Q4H PRN Administration Pain Rated 7-10 Oxycodone/Acetaminophen 1 tablet 03/08/25 17:12 Oxycodone/Acetaminophen (*Crx) 5-325 Mg Tablet PO Q4H PRN Mild Pain (1-3) Oxycodone/Acetaminophen 1 tab 03/08/25 17:12 03/08/25 22:52 Oxycodone/Acetaminophen (*Crx) 10-325 Mg Tablet PO 1 tab Q4H PRN Administration Moderate Pain (4-6) Pantoprazole Sodium 40 mg 03/07/25 09:00 03/17/25 09:19 Pantoprazole 40 Mg Tablet PO 40 mg QAM LANG Administration Polyethylene Glycol 17 gm 03/06/25 17:06 Polyethylene Glycol 3350 17 Gm Powd.Pack PO QAM PRN Constipation Fluticasone/Salmeterol 2 puff 03/07/25 08:00 03/17/25 08:50 Fluticasone/Salmeterol 45-21 Mcg Inhaler 1 Puff INHALATION 2 puff DAILYRT LANG Administration Senna/Docusate Sodium 1 tab 03/08/25 17:12 03/11/25 05:35 Senna/Docusate Sodium Tablet PO 1 tab HS PRN Administration Constipation Senna/Docusate Sodium 1 tab 03/09/25 17:00 03/17/25 09:19 Senna/Docusate Sodium Tablet PO 1 tab BID LANG Administration Simvastatin 40 mg 03/07/25 09:00 03/17/25 09:19 Simvastatin 20 Mg Tablet PO 40 mg DAILY LANG Administration Vitamin D 25 mcg 03/07/25 09:00 03/17/25 09:19 Cholecalciferol (Vitamin D3) 25 Mcg (1,000 Units) Tablet PO 25 mcg DAILY LANG Administration Vitamin D 250 mcg 03/07/25 09:00 03/17/25 09:19 Cholecalciferol (Vitamin D3) 125 Mcg (5,000 Units) Tablet PO 250 mcg DAILY LANG Administration Radiology Results: ITS Impressions Chest X-Ray 03/06/25 16:17 IMPRESSION: 1: NO ACUTE CARDIOPULMONARY DISEASE. Venous Doppler Study 03/10/25 09:45 IMPRESSION: 1: No left lower extremity deep venous thrombosis. Lumbar Spine CT 03/10/25 15:39 IMPRESSION: 1. Again seen are changes of combined instrumented L5-S1 anterior and posterior spinal fusion with revision of the connection between the vertical srinath and the left S1 pedicle screw, placement of new bone graft material bilaterally and decompression with surgical drain placement at a postoperative hematoma/seroma at the laminectomy bed. 2. Redemonstration of nondisplaced fracture across the base of the right pedicle of L5 with some lucency along the cephalad margin of the right L5 pedicle screw at the level of the vertebral body. 3. Unchanged instrumented left sacroiliac arthrodesis. Lumbar Spine MRI 03/13/25 17:24 IMPRESSION: 1. Severe lumbar spondylosis. 2. Anterior and posterior fusion procedures at L5-S1. 3. Worsened fluid collection involving the surgical bed of the L5 posterior elements extending superiorly in the subcutaneous region. This finding may be a seroma, hematoma, or abscess. Fluoroscopy 03/16/25 18:37 IMPRESSION: 1. Fluoroscopy utilized during interpretation of an instrumented combined L5-S1 anterior and posterior spinal fusion. See procedure note for further detail. Labs Labs: Laboratory Results - last 24 hr 03/17/25 05:10 WBC 5.6 RBC 2.79 L Hgb 8.1 L Hct 26.4 L MCV 94.6 MCH 29.0 MCHC 30.7 L RDW 14.8 H Plt Count 306 MPV 10.6 H Sodium 134 L Potassium 5.0 Chloride 102 Carbon Dioxide 29 Anion Gap 3 L BUN 15 Creatinine 0.69 L Estim Creat Clear Calc 62 Estimated GFR > 60 Glucose 121 H Calcium 8.9 Total Bilirubin 0.2 AST 25 ALT 24 Alkaline Phosphatase 94 Total Protein 6.1 L Albumin 3.3 L
--- NOTE | 2025-03-17 10:07 | PCPTNOTE ---
Therapist spoke with Dr. Silvestre at 7:58 AM this date - Per Dr. Silvestre, continue with therapy, no change in activity orders since recent operation 03/16/25. Continue with physical therapy Plan of care.
[2025-03-17] MEDS: MULTIVITAMINS THERAPEUTIC TAB (*BKC) 1 TABLET PO (12:45)
[2025-03-17] MEDS: CALCIUM CARBONATE (OSCAL) 500 MG TABLET PO (12:45)
[2025-03-17] MEDS: VANCOMYCIN 1,500 MG/NS 500 ML 1,500 MG/500 ML BAG 250 MG IVPB (12:46)
[2025-03-17 15:06] VITALS: BP 109/64; PULSE 81; RESP 18; TEMP 36.4; O2SAT 100
[2025-03-17 20:00] VITALS: PULSE 86; RESP 18; O2SAT 100
[2025-03-17 20:57] VITALS: BP 110/51; PULSE 86; RESP 18; TEMP 36.9; O2SAT 100
[2025-03-18] MEDS: oxyCODONE/ACETAMINOPHEN (*CRX) 10-325 MG TABLET 1 TAB PO ×2 (04:06→07:54)
[2025-03-18 04:08] VITALS: BP 104/60; PULSE 82; RESP 18; TEMP 36.7; O2SAT 98
[2025-03-18] MEDS: LEVOTHYROXINE SODIUM 50 MCG TABLET PO (06:07)
[2025-03-18] MEDS: CEFEPIME 2 GM in SODIUM CHLORIDE 0.9% IV 50 ML 100 ML IVPB ×2 (06:07→18:51)
[2025-03-18] MEDS: ACETAMINOPHEN 325 MG TABLET 650 MG PO (06:07)
[2025-03-18 06:22] LABS: Hematocrit 24.1 % (37.0-47.0); Hemoglobin 7.4 g/dL (12.0-15.0); Mean Corpuscular HGB Conc 30.7 g/dl (32-36); Mean Corpuscular Hemoglobin 29.0 pg (26-34); Mean Corpuscular Volume 94.5 fl (80-100); Platelet Count Result 282 k/mm3 (150-375); Red Blood Count 2.55 M/mm3 (4.2-5.4); White Blood Count 7.0 K/mm3 (4.5-10.0)
[2025-03-18 06:46] LABS: Alanine Aminotransferase 20 U/L (6-35); Albumin Level 2.9 g/dL (3.5-5.1); Alkaline Phosphatase 91 U/L (38-126); Anion Gap 2 mmol/L (4-12); Aspartate Amino Transferase 25 U/L (14-36); Bilirubin,Total 0.1 mg/dL (0.2-1.3); Blood Urea Nitrogen 16 mg/dL (7-17); Calcium 8.2 mg/dL (8.4-10.2); Carbon Dioxide 27 mmol/L (22-30); Chloride 103 mmol/L (98-107); Estimated CRCL calculation 60 ml/min; Estimated Glomerular Filt Rate > 60; Glucose 91 mg/dL (65-110); Potassium 3.9 mmol/L (3.4-5.0); Sodium 132 mmol/L (137-145); Total Protein 5.4 g/dL (6.3-8.2)
--- NOTE | 2025-03-18 07:45 | PM.IMPN ---
Progress Note: A&P Assessment and Plan (1) Back pain: Qualifiers: Back pain laterality: bilateral Back pain location: low back pain Chronicity: acute Sciatica laterality: sciatica of right side Sciatica presence: with sciatica Qualified Code(s): M54.41 - Lumbago with sciatica, right side Code(s): M54.9 - Dorsalgia, unspecified Status: Acute Assessment and Plan: s/p L5-S1 posterior lumbar interbody fusion and L3-4 hemilaminectomy 01/10/[address] Silvestre. Initially complicated by post-operative pain. Plain films demonstrated good position of the hardware and interbody devices with the exception of the left srinath which seems to not be seated in the left S1 screw head per patient's neurosurgeon. CT was completed on 03/01 (see impression below) as follow-up on this imaging. Patient has also developed new difficulty urinating for the past week, historically has had urinary incontinence for years. - CT lumbar spine, 03/01: 1. Severe lower lumbar spondylosis status post interval L5 laminectomy and combined instrumented L5-S1 anterior and posterior spinal fusion. Of note there appears to be a subacute to early chronic still discernible nondisplaced coronally oriented fracture extends across the anterior base of the right L5 pedicle. 2. Although significantly more limited on CT than with MRI particularly in the presence of streak artifact related to the metallic instrumentation, there appears to be increased soft tissue density at the laminectomy bed with suggestion of moderate residual central canal stenosis at this level. Would consider further evaluation with MRI as clinically indicated. 3. Interval instrumented left sacroiliac arthrodesis. - CT was repeated on 03/10: 1. Again seen are changes of combined instrumented L5-S1 anterior and posterior spinal fusion with revision of the connection between the vertical srinath and the left S1 pedicle screw, placement of new bone graft material bilaterally and decompression with surgical drain placement at a postoperative hematoma/seroma at the laminectomy bed. 2. Redemonstration of nondisplaced fracture across the base of the right pedicle of L5 with some lucency along the cephalad margin of the right L5 pedicle screw at the level of the vertebral body. 3. Unchanged instrumented left sacroiliac arthrodesis. Lumbar spine MRI 03/13: 1. Severe lumbar spondylosis. 2. Anterior and posterior fusion procedures at L5-S1. 3. Worsened fluid collection involving the surgical bed of the L5 posterior elements extending superiorly in the subcutaneous region. This finding may be a seroma, hematoma, or abscess. - analgesics - Scheduled Tylenol 650 q6h. Gabapentin 300 mg BID, [place] 5-325 or 10-325 q4h PRN, Valium 5 mg TID PRN, dilaudid 0.25 mg q2h PRN Reviewed pain medications, currently stable on the oral regimen. - PT/OT Recommending acute rehab, however patient wishes to move forward with HH. - neurosurgery consulted s/p lumbar wound exploration for seroma, revision of posterior instrumentation L5-S1, redo posterolateral fusion L5-S1 on 03/[address] Silvestre. Drain removed per neurosurgery. s/p left L5-S1 foraminotomy and revision on 03/[address] Silvestre. Hemovac placed at that time. Maintain drain until minimal output from the drain as this may or may not have been an infected seroma. Neurosurgery monitoring for drain and will make final decision on removal - ID consulted as possible abscess seen on the the MRI obtained on 03/14 Wound culture obtained on 03/16: pending Remains on empiric cefepime, metronidazole, and vancomycin, started on 03/16 following surgical revision (2) Peripheral edema: Code(s): R60.0 - Localized edema Status: Acute Assessment and Plan: Reporting new, significant BLE edema. BNP WNL for age and CXR did not demonstrate any pulmonary edema. S/p lumbar surgery in December of 2024. Possible complications noted on imaging, see above. Possible complication to lumbar surgery/immobility - neli wraps as tolerated, may d/c at night to sleep - BLE VD on 03/06 and 03/10: negative for DVT - mobilize as able. Elevate lower extremities. (3) Urinary tract infection: Code(s): N39.0 - Urinary tract infection, site not specified Status: Acute Assessment and Plan: - UA with positive nitrates, 1+ LE, 6-10 WBC - patient reports urinary hesitancy - previous culture with pansensitive Klebsiella - start IV Rocephin - urine culture grew pansenstive ecoli Completed antibiotic course. Denies UTI like symptoms. (4) Hypertension: Qualifiers: Hypertension type: primary hypertension Qualified Code(s): I10 - Essential (primary) hypertension Code(s): I10 - Essential (primary) hypertension Status: Chronic Assessment and Plan: - continue home medications: HCTZ 12.5 mg daily , lisinopril 10 mg daily - blood pressures reviewed and remain stable, continue to monitor (5) Anemia: Code(s): D64.9 - Anemia, unspecified Status: Acute Assessment and Plan: - Hgb 11.7 7/3. 9.5 on admission, trended down to 8.6 - may have component of hemodilution as patient was on fluids at that time - denied signs of bleeding. unable to collect stool but reported no blood noted. - check iron studies - monitor CBC. Transfuse Hgb <7. iron panel showing deficiency, iron replacement stated no c/o dizziness, lightheadedness H/H remains stable, continue to monitor closely Time Spent With Patient Time with patient: 25 - 35 minutes Subjective Date/time seen: 03/18/25 07:45 Interval history: 75 year old female with past medical history of mitral valve prolapse, hypothyroidism, hyperlipidemia, asthma, and hypertension presents to the hospital with back pain and lower extremity edema. Patient is pleasant sitting in bed. She continues to endorse back pain is associated with the surgical incision and Hemovac placement. She is also endorsing left pain that she describes as a tingling numbness with associated dragging sensation when working with therapy. She does note she has been able to move her foot more and that the swelling has improved. She has no other complaints denying chest pain, shortness a breath, palpitations, nausea/vomiting, abdominal pain. Discussed with patient therapy was recommending placement given her increased immobility. Patient is adamant that she does not wish to go to a rehab facility or SNF at time of discharge and that she has plenty of care at home and is agreeable to home health. Encouraged patient to continue working with therapy during admission. Review of Systems Review of Systems: All systems reviewed & are unremarkable except as noted in HPI and below Exam Narrative: AF HR 83 RR 20 SpO2 98 BP 104/60 General: female in no acute respiratory distress who is nontoxic appearing, sitting up in bed. HEENT: Normocephalic. Atraumatic. Extraocular movement intact. Sclera clear and anicteric. No facial asymmetry. Chest: Lungs are clear to auscultation bilaterally. No wheezes or crackles. CV: Heart was regular rate and rhythm. Abd: Abdomen was soft. Nontender. Nondistended. Positive bowel sounds. Back: Drain in place with minimal output. Tenderness to drain insertion. Surgical incision without redness, drainage or warmth. Ext: No clubbing, cyanosis. Mild Edema to left lower extremity, improving from yesterday. DP pulses bilaterally. Neuro: Patient is alert. Sensation intact. Speech is clear. Objective Data Vital Signs Vital Signs: Vital Signs - 24 hr 03/17/25 08:50 03/17/25 08:50 03/17/25 09:15 Temperature Pulse Rate 87 87 Respiratory Rate 20 20 Blood Pressure Pulse Oximetry 96 Oxygen Delivery Room Air Room Air Fraction of Inspired Oxygen 03/17/25 15:06 03/17/25 20:00 03/17/25 20:57 Temperature 97.6 F 98.4 F Pulse Rate 81 86 86 Respiratory Rate 18 18 18 Blood Pressure 109/64 110/51 L Pulse Oximetry 100 100 100 Oxygen Delivery Room Air Fraction of Inspired Oxygen 03/18/25 04:08 Temperature 98.1 F Pulse Rate 82 Respiratory Rate 18 Blood Pressure 104/60 Pulse Oximetry 98 Oxygen Delivery Fraction of Inspired Oxygen Intake/Output Intake/Output: Intake & Output 03/15/25 03/16/25 03/17/25 03/18/25 23:59 23:59 23:59 23:59 Intake Total 136 883 5755 300 Output Total 1900 2200 1265 1200 Balance -1250 -1700 15 -900 Meds/Results Medications: Active Medications Generic Name Dose Route Start Last Admin Trade Name Freq PRN Reason Stop Dose Admin Acetaminophen 650 mg 03/16/25 11:20 03/18/25 06:07 Acetaminophen 325 Mg Tablet PO 650 mg Q6HR LANG Administration Al Hydrox/Mg Hydrox/Simethicone 20 ml 03/08/25 17:12 Mag Hydrox/Al Hydrox/Simeth 30 Ml Udc PO Q4H PRN Indigestion/Heartburn Albuterol 1 puff 03/06/25 21:53 Albuterol Sulfate (*Sp) Aerosol 1 Puff INHALATION Q4-6H PRN Wheezing Bisacodyl 10 mg 03/08/25 17:12 Bisacodyl 10 Mg Suppository RECTAL DAILY PRN Constipation Calcium Carbonate 500 mg 03/07/25 12:00 03/17/25 12:45 Calcium Carbonate (Oscal) 500 Mg Tablet PO 500 mg DAILY@1200 [facility] Administration Diazepam 5 mg 03/11/25 17:10 03/17/25 21:22 Diazepam (*Crx) 5 Mg Tablet PO 5 mg TID PRN Administration Muscle Spasm Docusate Sodium 100 mg 03/06/25 17:06 Docusate Sodium 100 Mg Capsule PO Q12H PRN Constipation Docusate Sodium 100 mg 03/08/25 21:00 03/17/25 21:23 Docusate Sodium 100 Mg Capsule PO 100 mg Q12HR LANG Administration Enoxaparin Sodium 40 mg 03/12/25 13:40 03/17/25 09:19 Enoxaparin 40 Mg/0.4 Ml Syringe SUB-Q 40 mg DAILY [facility] Administration Gabapentin 300 mg 03/06/25 21:40 03/17/25 21:23 Gabapentin 300 Mg Capsule PO 300 mg Q12HR [facility]ANG Administration Hydrochlorothiazide 12.5 mg 03/07/25 09:00 03/17/25 09:19 Hydrochlorothiazide 12.5 Mg Capsule PO 12.5 mg DAILY [facility] Administration Hydromorphone HCl 0.5 mg 03/08/25 17:12 03/16/25 13:30 Hydromorphone Hcl Inj (*Crx) 1 Mg/Ml Syr IV PUSH 0.5 mg Q2H PRN Administration Pain Rated 7-10 Hydromorphone HCl 0.25 mg 03/16/25 13:51 Hydromorphone Hcl Inj (*Crx) 1 Mg/Ml Syr IV PUSH Q5M PRN Pain Hydroxyzine HCl 25 mg 03/06/25 21:38 03/15/25 22:58 Hydroxyzine Hcl 25 Mg Tablet PO 25 mg QID PRN Administration Anxiety Cefepime HCl 2 gm/ Sodium 50 mls @ 100 mls/hr 03/16/25 18:00 03/18/25 06:07 Chloride IVPB 100 mls/hr Q12H [facility]ANG Administration Vancomycin HCl 1,750 mg in 500 mls @ 250 mls/hr 03/18/25 07:00 Vancomycin 1,750 Mg/Ns 500 Ml IVPB Q18H [facility]ANG Levothyroxine Sodium 50 mcg 03/07/25 06:30 03/18/25 06:07 Levothyroxine Sodium 50 Mcg Tablet PO 50 mcg DAILY@0630 [facility] Administration Lidocaine 1 patch 03/11/25 09:00 03/17/25 11:44 Lidocaine 5% Patch TRANSDERM Not Given DAILY [facility] Lisinopril 10 mg 03/07/25 09:00 03/17/25 09:19 Lisinopril 10 Mg Tablet PO 10 mg DAILY [facility] Administration Loratadine 10 mg 03/06/25 21:44 Loratadine 10 Mg Tablet PO DAILY PRN Congestion Meclizine HCl 25 mg 03/06/25 21:38 03/14/25 10:09 Meclizine Hcl 25 Mg Tablet PO 25 mg TID PRN Administration Dizziness Or Vertigo Metronidazole 500 mg 03/16/25 17:00 03/18/25 06:07 Metronidazole 500 Mg Tablet PO 500 mg Q8HR [facility] Administration Miscellaneous Information 1 each 03/17/25 00:01 Please Renew _Hydromorphone An. Per [employer] Procedure, It Will Discontinue If Not Renewed XX 04/16/25 00:00 CLARIFY LANG Multivitamins Therapeutic 1 tablet 03/07/25 12:00 03/17/25 12:45 Multivitamins Therapeutic Tab (*Bkc) PO 1 tablet DAILY@1200 [facility] Administration Ondansetron HCl 4 mg 03/06/25 17:01 03/13/25 11:09 Ondansetron Hcl Odt 4 Mg Tablet PO 4 mg Q6H PRN Administration Nausea And Vomiting Oxycodone/Acetaminophen 1 tab 03/07/25 10:39 03/18/25 04:06 Oxycodone/Acetaminophen (*Crx) 10-325 Mg Tablet PO 1 tab Q4H PRN Administration Pain Rated 7-10 Oxycodone/Acetaminophen 1 tablet 03/08/25 17:12 Oxycodone/Acetaminophen (*Crx) 5-325 Mg Tablet PO Q4H PRN Mild Pain (1-3) Oxycodone/Acetaminophen 1 tab 03/08/25 17:12 03/08/25 22:52 Oxycodone/Acetaminophen (*Crx) 10-325 Mg Tablet PO 1 tab Q4H PRN Administration Moderate Pain (4-6) Pantoprazole Sodium 40 mg 03/07/25 09:00 03/17/25 09:19 Pantoprazole 40 Mg Tablet PO 40 mg QAM [facility] Administration Polyethylene Glycol 17 gm 03/06/25 17:06 Polyethylene Glycol 3350 17 Gm Powd.Pack PO QAM PRN Constipation Fluticasone/Salmeterol 2 puff 03/07/25 08:00 03/17/25 08:50 Fluticasone/Salmeterol 45-21 Mcg Inhaler 1 Puff INHALATION 2 puff DAILYRT [facility] Administration Senna/Docusate Sodium 1 tab 03/08/25 17:12 03/11/25 05:35 Senna/Docusate Sodium Tablet PO 1 tab HS PRN Administration Constipation Senna/Docusate Sodium 1 tab 03/09/25 17:00 03/17/25 17:08 Senna/Docusate Sodium Tablet PO 1 tab BID [facility] Administration Simvastatin 40 mg 03/07/25 09:00 03/17/25 09:19 Simvastatin 20 Mg Tablet PO 40 mg DAILY [facility] Administration Vitamin D 25 mcg 03/07/25 09:00 03/17/25 09:19 Cholecalciferol (Vitamin D3) 25 Mcg (1,000 Units) Tablet PO 25 mcg DAILY [facility] Administration Vitamin D 250 mcg 03/07/25 09:00 03/17/25 09:19 Cholecalciferol (Vitamin D3) 125 Mcg (5,000 Units) Tablet PO 250 mcg DAILY [facility] Administration Radiology Results: ITS Impressions Chest X-Ray 03/06/25 16:17 IMPRESSION: 1: NO ACUTE CARDIOPULMONARY DISEASE. Venous Doppler Study 03/10/25 09:45 IMPRESSION: 1: No left lower extremity deep venous thrombosis. Lumbar Spine CT 03/10/25 15:39 IMPRESSION: 1. Again seen are changes of combined instrumented L5-S1 anterior and posterior spinal fusion with revision of the connection between the vertical srinath and the left S1 pedicle screw, placement of new bone graft material bilaterally and decompression with surgical drain placement at a postoperative hematoma/seroma at the laminectomy bed. 2. Redemonstration of nondisplaced fracture across the base of the right pedicle of L5 with some lucency along the cephalad margin of the right L5 pedicle screw at the level of the vertebral body. 3. Unchanged instrumented left sacroiliac arthrodesis. Lumbar Spine MRI 03/13/25 17:24 IMPRESSION: 1. Severe lumbar spondylosis. 2. Anterior and posterior fusion procedures at L5-S1. 3. Worsened fluid collection involving the surgical bed of the L5 posterior elements extending superiorly in the subcutaneous region. This finding may be a seroma, hematoma, or abscess. Fluoroscopy 03/16/25 18:37 IMPRESSION: 1. Fluoroscopy utilized during interpretation of an instrumented combined L5-S1 anterior and posterior spinal fusion. See procedure note for further detail. Labs Labs: Laboratory Results - last 24 hr 03/18/25 06:10 WBC 7.0 RBC 2.55 L Hgb 7.4 L Hct 24.1 L MCV 94.5 MCH 29.0 MCHC 30.7 L RDW 15.3 H Plt Count 282 MPV 10.6 H Sodium 132 L Potassium 3.9 Chloride 103 Carbon Dioxide 27 Anion Gap 2 L BUN 16 Creatinine 0.71 Estim Creat Clear Calc 60 Estimated GFR > 60 Glucose 91 Calcium 8.2 L Total Bilirubin 0.1 L AST 25 ALT 20 Alkaline Phosphatase 91 Total Protein 5.4 L Albumin 2.9 L Vancomycin Trough 13.4 Quality VTE Prophylaxis VTE prophylaxis: pharmacologic ordered
[2025-03-18] MEDS: ONDANSETRON HCL ODT 4 MG TABLET PO ×2 (07:48→17:41)
[2025-03-18] MEDS: VANCOMYCIN 1,750 MG/NS 500 ML 1,750 MG/500 ML BAG 250 MG IVPB (07:56)
--- NOTE | 2025-03-18 08:25 | WPDNEUROSGPN ---
Progress Note: A&P Assessment and Plan (1) Chronic low back pain: Code(s): M54.50 - Low back pain, unspecified; G89.29 - Other chronic pain Status: Acute Plan Mrs. Yaima Gutierrez is a 75 y/o F POD # 2 s/p L5-S1 REvision with left L5 foraminotomy - PT/OT - Oral pain control - Encourage up to chair TID - Encourage ambulation - Dispo: Inpatient rehab vs Home PT/OT pending PT evaluation and pain control Subjective Date/time seen: 03/18/25 08:25 Interval history: POD # 2 s/p L5-S1 Fusion revision left Foraminotomy. Patient continues to have numbness and pain in left foot, but strength improving since surgery on . Exam Neuro: Other: Alert and oriented x 3 Motor: Left DF 3/5, EHL 4/5, otherwise full strength x 4 Objective Data Vital Signs Vital Signs: Vital Signs - 24 hr 03/17/25 08:50 03/17/25 08:50 03/17/25 09:15 Temperature Pulse Rate 87 87 Respiratory Rate 20 20 Blood Pressure Pulse Oximetry 96 Oxygen Delivery Room Air Room Air Fraction of Inspired Oxygen 21 03/17/25 15:06 03/17/25 20:00 03/17/25 20:57 Temperature 36.4 C 36.9 C Pulse Rate 81 86 86 Respiratory Rate 18 18 18 Blood Pressure 109/64 110/51 L Pulse Oximetry 100 100 100 Oxygen Delivery Room Air Fraction of Inspired Oxygen 21 03/18/25 04:08 Temperature 36.7 C Pulse Rate 82 Respiratory Rate 18 Blood Pressure 104/60 Pulse Oximetry 98 Oxygen Delivery Fraction of Inspired Oxygen Intake/Output Intake/Output: Intake & Output 03/15/25 03/16/25 03/17/25 03/18/25 23:59 23:59 23:59 23:59 Intake Total 272 286 7257 300 Output Total 1900 2200 1265 1230 Balance -1250 -1700 15 -930 Meds/Results Medications: Active Medications Generic Name Dose Route Start Last Admin Trade Name Freq PRN Reason Stop Dose Admin Acetaminophen 650 mg 03/16/25 11:20 03/18/25 06:07 Acetaminophen 325 Mg Tablet PO 650 mg Q6HR [facility]ANG Administration Al Hydrox/Mg Hydrox/Simethicone 20 ml 03/08/25 17:12 Mag Hydrox/Al Hydrox/Simeth 30 Ml Udc PO Q4H PRN Indigestion/Heartburn Albuterol 1 puff 03/06/25 21:53 Albuterol Sulfate (*Sp) Aerosol 1 Puff INHALATION Q4-6H PRN Wheezing Bisacodyl 10 mg 03/08/25 17:12 Bisacodyl 10 Mg Suppository RECTAL DAILY PRN Constipation Calcium Carbonate 500 mg 03/07/25 12:00 03/17/25 12:45 Calcium Carbonate (Oscal) 500 Mg Tablet PO 500 mg DAILY@1200 [facility] Administration Diazepam 5 mg 03/11/25 17:10 03/17/25 21:22 Diazepam (*Crx) 5 Mg Tablet PO 5 mg TID PRN Administration Muscle Spasm Docusate Sodium 100 mg 03/06/25 17:06 Docusate Sodium 100 Mg Capsule PO Q12H PRN Constipation Docusate Sodium 100 mg 03/08/25 21:00 03/17/25 21:23 Docusate Sodium 100 Mg Capsule PO 100 mg Q12HR [facility] Administration Enoxaparin Sodium 40 mg 03/12/25 13:40 03/17/25 09:19 Enoxaparin 40 Mg/0.4 Ml Syringe SUB-Q 40 mg DAILY [facility] Administration Gabapentin 300 mg 03/06/25 21:40 03/17/25 21:23 Gabapentin 300 Mg Capsule PO 300 mg Q12HR [facility] Administration Hydrochlorothiazide 12.5 mg 03/07/25 09:00 03/17/25 09:19 Hydrochlorothiazide 12.5 Mg Capsule PO 12.5 mg DAILY [facility] Administration Hydromorphone HCl 0.5 mg 03/08/25 17:12 03/16/25 13:30 Hydromorphone Hcl Inj (*Crx) 1 Mg/Ml Syr IV PUSH 0.5 mg Q2H PRN Administration Pain Rated 7-10 Hydromorphone HCl 0.25 mg 03/16/25 13:51 Hydromorphone Hcl Inj (*Crx) 1 Mg/Ml Syr IV PUSH Q5M PRN Pain Hydroxyzine HCl 25 mg 03/06/25 21:38 03/15/25 22:58 Hydroxyzine Hcl 25 Mg Tablet PO 25 mg QID PRN Administration Anxiety Cefepime HCl 2 gm/ Sodium 50 mls @ 100 mls/hr 03/16/25 18:00 03/18/25 06:07 Chloride IVPB 100 mls/hr Q12H [facility] Administration Vancomycin HCl 1,750 mg in 500 mls @ 250 mls/hr 03/18/25 07:00 03/18/25 07:56 Vancomycin 1,750 Mg/Ns 500 Ml IVPB 250 mls/hr Q18H [facility] Administration Levothyroxine Sodium 50 mcg 03/07/25 06:30 03/18/25 06:07 Levothyroxine Sodium 50 Mcg Tablet PO 50 mcg DAILY@0630 [facility] Administration Lidocaine 1 patch 03/11/25 09:00 03/17/25 11:44 Lidocaine 5% Patch TRANSDERM Not Given DAILY [facility] Lisinopril 10 mg 03/07/25 09:00 03/17/25 09:19 Lisinopril 10 Mg Tablet PO 10 mg DAILY [facility] Administration Loratadine 10 mg 03/06/25 21:44 Loratadine 10 Mg Tablet PO DAILY PRN Congestion Meclizine HCl 25 mg 03/06/25 21:38 03/14/25 10:09 Meclizine Hcl 25 Mg Tablet PO 25 mg TID PRN Administration Dizziness Or Vertigo Metronidazole 500 mg 03/16/25 17:00 03/18/25 06:07 Metronidazole 500 Mg Tablet PO 500 mg Q8HR [facility]ANG Administration Miscellaneous Information 1 each 03/17/25 00:01 Please Renew _Hydromorphone An. Per [employer] Procedure, It Will Discontinue If Not Renewed XX 04/16/25 00:00 CLARIFY [facility] Multivitamins Therapeutic 1 tablet 03/07/25 12:00 03/17/25 12:45 Multivitamins Therapeutic Tab (*Bkc) PO 1 tablet DAILY@1200 [facility] Administration Ondansetron HCl 4 mg 03/06/25 17:01 03/18/25 07:48 Ondansetron Hcl Odt 4 Mg Tablet PO 4 mg Q6H PRN Administration Nausea And Vomiting Oxycodone/Acetaminophen 1 tab 03/07/25 10:39 03/18/25 07:54 Oxycodone/Acetaminophen (*Crx) 10-325 Mg Tablet PO 1 tab Q4H PRN Administration Pain Rated 7-10 Oxycodone/Acetaminophen 1 tablet 03/08/25 17:12 Oxycodone/Acetaminophen (*Crx) 5-325 Mg Tablet PO Q4H PRN Mild Pain (1-3) Oxycodone/Acetaminophen 1 tab 03/08/25 17:12 03/08/25 22:52 Oxycodone/Acetaminophen (*Crx) 10-325 Mg Tablet PO 1 tab Q4H PRN Administration Moderate Pain (4-6) Pantoprazole Sodium 40 mg 03/07/25 09:00 03/17/25 09:19 Pantoprazole 40 Mg Tablet PO 40 mg QAM [facility]ANG Administration Polyethylene Glycol 17 gm 03/06/25 17:06 Polyethylene Glycol 3350 17 Gm Powd.Pack PO QAM PRN Constipation Fluticasone/Salmeterol 2 puff 03/07/25 08:00 03/17/25 08:50 Fluticasone/Salmeterol 45-21 Mcg Inhaler 1 Puff INHALATION 2 puff DAILYRT [facility] Administration Senna/Docusate Sodium 1 tab 03/08/25 17:12 03/11/25 05:35 Senna/Docusate Sodium Tablet PO 1 tab HS PRN Administration Constipation Senna/Docusate Sodium 1 tab 03/09/25 17:00 03/17/25 17:08 Senna/Docusate Sodium Tablet PO 1 tab BID [facility] Administration Simvastatin 40 mg 03/07/25 09:00 03/17/25 09:19 Simvastatin 20 Mg Tablet PO 40 mg DAILY [facility] Administration Vitamin D 25 mcg 03/07/25 09:00 03/17/25 09:19 Cholecalciferol (Vitamin D3) 25 Mcg (1,000 Units) Tablet PO 25 mcg DAILY [facility] Administration Vitamin D 250 mcg 03/07/25 09:00 03/17/25 09:19 Cholecalciferol (Vitamin D3) 125 Mcg (5,000 Units) Tablet PO 250 mcg DAILY [facility] Administration Radiology Results: ITS Impressions Chest X-Ray 03/06/25 16:17 IMPRESSION: 1: NO ACUTE CARDIOPULMONARY DISEASE. Venous Doppler Study 03/10/25 09:45 IMPRESSION: 1: No left lower extremity deep venous thrombosis. Lumbar Spine CT 03/10/25 15:39 IMPRESSION: 1. Again seen are changes of combined instrumented L5-S1 anterior and posterior spinal fusion with revision of the connection between the vertical srinath and the left S1 pedicle screw, placement of new bone graft material bilaterally and decompression with surgical drain placement at a postoperative hematoma/seroma at the laminectomy bed. 2. Redemonstration of nondisplaced fracture across the base of the right pedicle of L5 with some lucency along the cephalad margin of the right L5 pedicle screw at the level of the vertebral body. 3. Unchanged instrumented left sacroiliac arthrodesis. Lumbar Spine MRI 03/13/25 17:24 IMPRESSION: 1. Severe lumbar spondylosis. 2. Anterior and posterior fusion procedures at L5-S1. 3. Worsened fluid collection involving the surgical bed of the L5 posterior elements extending superiorly in the subcutaneous region. This finding may be a seroma, hematoma, or abscess. Fluoroscopy 03/16/25 18:37 IMPRESSION: 1. Fluoroscopy utilized during interpretation of an instrumented combined L5-S1 anterior and posterior spinal fusion. See procedure note for further detail. Labs Labs: Laboratory Results - last 24 hr 03/18/25 06:10 WBC 7.0 RBC 2.55 L Hgb 7.4 L Hct 24.1 L MCV 94.5 MCH 29.0 MCHC 30.7 L RDW 15.3 H Plt Count 282 MPV 10.6 H Sodium 132 L Potassium 3.9 Chloride 103 Carbon Dioxide 27 Anion Gap 2 L BUN 16 Creatinine 0.71 Estim Creat Clear Calc 60 Estimated GFR > 60 Glucose 91 Calcium 8.2 L Total Bilirubin 0.1 L AST 25 ALT 20 Alkaline Phosphatase 91 Total Protein 5.4 L Albumin 2.9 L Vancomycin Trough 13.4
[2025-03-18] MEDS: FLUTICASONE/SALMETEROL 45-21 MCG INHALER 1 PUFF 2 PUFF INHALATION (10:23)
[2025-03-18 10:24] VITALS: PULSE 83; RESP 20
[2025-03-18 10:25] VITALS: O2SAT 98
[2025-03-18] MEDS: SIMVASTATIN 20 MG TABLET 40 MG PO (10:46)
[2025-03-18] MEDS: DOCUSATE SODIUM 100 MG CAPSULE PO (10:47)
[2025-03-18] MEDS: SENNA/DOCUSATE SODIUM TABLET 1 TAB PO (10:47)
[2025-03-18] MEDS: CHOLECALCIFEROL (VITAMIN D3) 125 MCG (5,000 UNITS) TABLET 250 MCG PO (10:47)
[2025-03-18] MEDS: GABAPENTIN 300 MG CAPSULE PO ×2 (10:47→14:24)
[2025-03-18] MEDS: CHOLECALCIFEROL (VITAMIN D3) 25 MCG (1,000 UNITS) TABLET PO (10:48)
[2025-03-18] MEDS: ENOXAPARIN 40 MG/0.4 ML SYRINGE SUB-Q (10:48)
[2025-03-18] MEDS: PANTOPRAZOLE 40 MG TABLET PO (10:48)
[2025-03-18] MEDS: MULTIVITAMINS THERAPEUTIC TAB (*BKC) 1 TABLET PO (12:24)
[2025-03-18] MEDS: CALCIUM CARBONATE (OSCAL) 500 MG TABLET PO (12:24)
[2025-03-18] MEDS: HYDROmorphone HCL INJ (*CRX) 1 MG/ML SYR 0.5 MG IV PUSH (14:22)
[2025-03-18 15:43] VITALS: BP 104/62; PULSE 86; RESP 18; TEMP 36.2; O2SAT 98
[2025-03-18 20:45] VITALS: BP 104/53; PULSE 92; RESP 17; TEMP 36.7; O2SAT 93
[2025-03-19] MEDS: VANCOMYCIN 1,750 MG/NS 500 ML 1,750 MG/500 ML BAG 250 MG IVPB ×2 (01:37→21:39)
[2025-03-19] MEDS: oxyCODONE/ACETAMINOPHEN (*CRX) 10-325 MG TABLET 1 TAB PO ×3 (02:10→10:58)
[2025-03-19 04:56] VITALS: BP 100/63; PULSE 80; RESP 18; TEMP 36.7; O2SAT 100
[2025-03-19 05:31] LABS: Hematocrit 26.0 % (37.0-47.0); Hemoglobin 8.0 g/dL (12.0-15.0); Mean Corpuscular HGB Conc 30.8 g/dl (32-36); Mean Corpuscular Hemoglobin 28.9 pg (26-34); Mean Corpuscular Volume 93.9 fl (80-100); Platelet Count Result 282 k/mm3 (150-375); Red Blood Count 2.77 M/mm3 (4.2-5.4); White Blood Count 7.4 K/mm3 (4.5-10.0)
[2025-03-19 05:57] LABS: Alanine Aminotransferase 22 U/L (6-35); Albumin Level 3.1 g/dL (3.5-5.1); Alkaline Phosphatase 96 U/L (38-126); Anion Gap 3 mmol/L (4-12); Aspartate Amino Transferase 25 U/L (14-36); Bilirubin,Total 0.1 mg/dL (0.2-1.3); Blood Urea Nitrogen 13 mg/dL (7-17); Calcium 8.7 mg/dL (8.4-10.2); Carbon Dioxide 27 mmol/L (22-30); Chloride 103 mmol/L (98-107); Estimated CRCL calculation 64 ml/min; Estimated Glomerular Filt Rate > 60; Glucose 90 mg/dL (65-110); Potassium 3.9 mmol/L (3.4-5.0); Sodium 133 mmol/L (137-145); Total Protein 5.8 g/dL (6.3-8.2)
[2025-03-19] MEDS: ACETAMINOPHEN 325 MG TABLET 650 MG PO ×3 (06:25→17:03)
[2025-03-19] MEDS: LEVOTHYROXINE SODIUM 50 MCG TABLET PO (06:26)
[2025-03-19] MEDS: CEFEPIME 2 GM in SODIUM CHLORIDE 0.9% IV 50 ML 100 ML IVPB ×2 (06:28→17:04)
--- NOTE | 2025-03-19 08:31 | PM.IMPN ---
Progress Note: A&P Assessment and Plan (1) Back pain: Qualifiers: Back pain laterality: bilateral Back pain location: low back pain Chronicity: acute Sciatica laterality: sciatica of right side Sciatica presence: with sciatica Qualified Code(s): M54.41 - Lumbago with sciatica, right side Code(s): M54.9 - Dorsalgia, unspecified Status: Acute Assessment and Plan: s/p L5-S1 posterior lumbar interbody fusion and L3-4 hemilaminectomy 01/10/[address] Silvestre. Initially complicated by post-operative pain. Plain films demonstrated good position of the hardware and interbody devices with the exception of the left srinath which seems to not be seated in the left S1 screw head per patient's neurosurgeon. CT was completed on 03/01 (see impression below) as follow-up on this imaging. Patient has also developed new difficulty urinating for the past week, historically has had urinary incontinence for years. - CT lumbar spine, 03/01: 1. Severe lower lumbar spondylosis status post interval L5 laminectomy and combined instrumented L5-S1 anterior and posterior spinal fusion. Of note there appears to be a subacute to early chronic still discernible nondisplaced coronally oriented fracture extends across the anterior base of the right L5 pedicle. 2. Although significantly more limited on CT than with MRI particularly in the presence of streak artifact related to the metallic instrumentation, there appears to be increased soft tissue density at the laminectomy bed with suggestion of moderate residual central canal stenosis at this level. Would consider further evaluation with MRI as clinically indicated. 3. Interval instrumented left sacroiliac arthrodesis. - CT was repeated on 03/10: 1. Again seen are changes of combined instrumented L5-S1 anterior and posterior spinal fusion with revision of the connection between the vertical srinath and the left S1 pedicle screw, placement of new bone graft material bilaterally and decompression with surgical drain placement at a postoperative hematoma/seroma at the laminectomy bed. 2. Redemonstration of nondisplaced fracture across the base of the right pedicle of L5 with some lucency along the cephalad margin of the right L5 pedicle screw at the level of the vertebral body. 3. Unchanged instrumented left sacroiliac arthrodesis. Lumbar spine MRI 03/13: 1. Severe lumbar spondylosis. 2. Anterior and posterior fusion procedures at L5-S1. 3. Worsened fluid collection involving the surgical bed of the L5 posterior elements extending superiorly in the subcutaneous region. This finding may be a seroma, hematoma, or abscess. - analgesics - Scheduled Tylenol 650 q6h. Gabapentin 300 mg BID, [place] 5-325 or 10-325 q4h PRN, Valium 5 mg TID PRN, dilaudid 0.25 mg q2h PRN Reviewed pain medications, remains stable on the oral regimen. - PT/OT Recommending acute rehab, however patient wishes to move forward with HH. Continue to encourage patient to work with therapy, get up to the chair for meals and increase mobility - neurosurgery consulted s/p lumbar wound exploration for seroma, revision of posterior instrumentation L5-S1, redo posterolateral fusion L5-S1 on 03/[address] Silvestre. Drain removed per neurosurgery. s/p left L5-S1 foraminotomy and revision on 03/[address] Silvestre. Hemovac placed at that time. Hemovac removed on 03/18 - ID consulted as possible abscess seen on the the MRI obtained on 03/14 Wound culture obtained on 03/16: pending Remains on empiric cefepime, metronidazole, and vancomycin, started on 03/16 following surgical revision (2) Peripheral edema: Code(s): R60.0 - Localized edema Status: Acute Assessment and Plan: Reporting new, significant BLE edema. BNP WNL for age and CXR did not demonstrate any pulmonary edema. S/p lumbar surgery in December of 2024. Possible complications noted on imaging, see above. Possible complication to lumbar surgery/immobility - neli wraps as tolerated, may d/c at night to sleep - BLE VD on 03/06 and 03/10: negative for DVT - mobilize as able. Elevate lower extremities. Improving. (3) Urinary tract infection: Code(s): N39.0 - Urinary tract infection, site not specified Status: Acute Assessment and Plan: - UA with positive nitrates, 1+ LE, 6-10 WBC - patient reports urinary hesitancy - previous culture with pansensitive Klebsiella - start IV Rocephin - urine culture grew pansenstive ecoli Completed antibiotic course. Denies UTI like symptoms. (4) Hypertension: Qualifiers: Hypertension type: primary hypertension Qualified Code(s): I10 - Essential (primary) hypertension Code(s): I10 - Essential (primary) hypertension Status: Chronic Assessment and Plan: - continue home medications: HCTZ 12.5 mg daily , lisinopril 10 mg daily - blood pressures reviewed and remain stable, continue to monitor (5) Anemia: Code(s): D64.9 - Anemia, unspecified Status: Acute Assessment and Plan: - Hgb 11.7 7/3. 9.5 on admission, trended down to 8.6 - may have component of hemodilution as patient was on fluids at that time - denied signs of bleeding. unable to collect stool but reported no blood noted. - monitor CBC. Transfuse Hgb <7. iron panel showing deficiency, iron replacement stated no c/o dizziness, lightheadedness H/H remains stable, continue to monitor closely Time Spent With Patient Time with patient: 25 - 35 minutes Subjective Date/time seen: 03/19/25 08:31 Interval history: 75 year old female with past medical history of mitral valve prolapse, hypothyroidism, hyperlipidemia, asthma, and hypertension presents to the hospital with back pain and lower extremity edema. Patient is pleasant sitting up on the side of the bed. She continues to endorse back pain related to the incision. She also endorses tingling/numbness to the left foot. She does state that pain has improved since the most recent procedure. She also notes that the swelling is improving. She has no other complaints denying chest pain, shortness a breath, palpitations, nausea/vomiting, abdominal pain. Continue to encourage patient to work with therapy, get up to the chair for meals and to be as mobile as possible as she stills wishes to go home at discharge. Patient stated understanding. Review of Systems Review of Systems: All systems reviewed & are unremarkable except as noted in HPI and below Exam Narrative: AF HR 82 RR 20 Spo2 95 BP 100/63 General: female in no acute respiratory distress who is nontoxic appearing, sitting up on the side of the bed. HEENT: Normocephalic. Atraumatic. Extraocular movement intact. Sclera clear and anicteric. No facial asymmetry. Chest: Lungs are clear to auscultation bilaterally. No wheezes or crackles. CV: Heart was regular rate and rhythm. Abd: Abdomen was soft. Nontender. Nondistended. Positive bowel sounds. Back: Surgical incision without redness, drainage or warmth. [address] Ext: No clubbing, cyanosis. Mild ddema to left lower extremity, improving from yesterday. DP pulses bilaterally. Neuro: Patient is alert. Sensation intact. Speech is clear. Objective Data Vital Signs Vital Signs: Vital Signs - 24 hr 03/18/25 10:24 03/18/25 10:25 03/18/25 15:43 Temperature 97.2 F L Pulse Rate 83 86 Respiratory Rate 20 18 Blood Pressure 104/62 Pulse Oximetry 98 98 Oxygen Delivery Room Air 03/18/25 20:00 03/18/25 20:45 03/19/25 04:56 Temperature 98.1 F 98.1 F Pulse Rate 92 80 Respiratory Rate 17 18 Blood Pressure 104/53 L 100/63 Pulse Oximetry 93 100 Oxygen Delivery Room Air Intake/Output Intake/Output: Intake & Output 03/16/25 03/17/25 03/18/25 03/19/25 23:59 23:59 23:59 23:59 Intake Total 500 1280 1690 100 Output Total 2200 1265 2330 Balance -1700 15 -640 100 Meds/Results Medications: Active Medications Generic Name Dose Route Start Last Admin Trade Name Freq PRN Reason Stop Dose Admin Acetaminophen 650 mg 03/16/25 11:20 03/19/25 06:25 Acetaminophen 325 Mg Tablet PO 650 mg Q6HR LANG Administration Al Hydrox/Mg Hydrox/Simethicone 20 ml 03/08/25 17:12 Mag Hydrox/Al Hydrox/Simeth 30 Ml Udc PO Q4H PRN Indigestion/Heartburn Albuterol 1 puff 03/06/25 21:53 Albuterol Sulfate (*Sp) Aerosol 1 Puff INHALATION Q4-6H PRN Wheezing Bisacodyl 10 mg 03/08/25 17:12 Bisacodyl 10 Mg Suppository RECTAL DAILY PRN Constipation Calcium Carbonate 500 mg 03/07/25 12:00 03/18/25 12:24 Calcium Carbonate (Oscal) 500 Mg Tablet PO 500 mg DAILY@1200 LANG Administration Diazepam 5 mg 03/11/25 17:10 03/17/25 21:22 Diazepam (*Crx) 5 Mg Tablet PO 5 mg TID PRN Administration Muscle Spasm Docusate Sodium 100 mg 03/06/25 17:06 Docusate Sodium 100 Mg Capsule PO Q12H PRN Constipation Docusate Sodium 100 mg 03/08/25 21:00 03/18/25 23:20 Docusate Sodium 100 Mg Capsule PO Not Given Q12HR [facility] Enoxaparin Sodium 40 mg 03/12/25 13:40 03/18/25 10:48 Enoxaparin 40 Mg/0.4 Ml Syringe SUB-Q 40 mg DAILY LANG Administration Gabapentin 300 mg 03/18/25 13:00 03/18/25 19:56 Gabapentin 300 Mg Capsule PO Not Given TID LANG Hydrochlorothiazide 12.5 mg 03/07/25 09:00 03/18/25 10:47 Hydrochlorothiazide 12.5 Mg Capsule PO 12.5 mg DAILY [facility] Administration Hydromorphone HCl 0.25 mg 03/16/25 13:51 Hydromorphone Hcl Inj (*Crx) 1 Mg/Ml Syr IV PUSH Q5M PRN Pain Hydroxyzine HCl 25 mg 03/06/25 21:38 03/15/25 22:58 Hydroxyzine Hcl 25 Mg Tablet PO 25 mg QID PRN Administration Anxiety Cefepime HCl 2 gm/ Sodium 50 mls @ 100 mls/hr 03/16/25 18:00 03/19/25 06:28 Chloride IVPB 100 mls/hr Q12H LANG Administration Vancomycin HCl 1,750 mg in 500 mls @ 250 mls/hr 03/18/25 07:00 03/19/25 01:37 Vancomycin 1,750 Mg/Ns 500 Ml IVPB 250 mls/hr Q18H LANG Administration Levothyroxine Sodium 50 mcg 03/07/25 06:30 03/19/25 06:26 Levothyroxine Sodium 50 Mcg Tablet PO 50 mcg DAILY@0630 LANG Administration Lidocaine 1 patch 03/11/25 09:00 03/18/25 10:51 Lidocaine 5% Patch TRANSDERM Not Given DAILY [facility] Lisinopril 10 mg 03/07/25 09:00 03/18/25 10:47 Lisinopril 10 Mg Tablet PO 10 mg DAILY LANG Administration Loratadine 10 mg 03/06/25 21:44 Loratadine 10 Mg Tablet PO DAILY PRN Congestion Meclizine HCl 25 mg 03/06/25 21:38 03/14/25 10:09 Meclizine Hcl 25 Mg Tablet PO 25 mg TID PRN Administration Dizziness Or Vertigo Metronidazole 500 mg 03/16/25 17:00 03/19/25 06:26 Metronidazole 500 Mg Tablet PO 500 mg Q8HR LANG Administration Miscellaneous Information 1 each 03/17/25 00:01 Please Renew _Hydromorphone An. Per [employer] Procedure, It Will Discontinue If Not Renewed XX 04/16/25 00:00 CLARIFY LANG Multivitamins Therapeutic 1 tablet 03/07/25 12:00 03/18/25 12:24 Multivitamins Therapeutic Tab (*Bkc) PO 1 tablet DAILY@1200 LANG Administration Ondansetron HCl 4 mg 03/06/25 17:01 03/18/25 17:41 Ondansetron Hcl Odt 4 Mg Tablet PO 4 mg Q6H PRN Administration Nausea And Vomiting Oxycodone/Acetaminophen 1 tab 03/07/25 10:39 03/19/25 06:26 Oxycodone/Acetaminophen (*Crx) 10-325 Mg Tablet PO 1 tab Q4H PRN Administration Pain Rated 7-10 Pantoprazole Sodium 40 mg 03/07/25 09:00 03/18/25 10:48 Pantoprazole 40 Mg Tablet PO 40 mg QAM LANG Administration Polyethylene Glycol 17 gm 03/06/25 17:06 Polyethylene Glycol 3350 17 Gm Powd.Pack PO QAM PRN Constipation Fluticasone/Salmeterol 2 puff 03/07/25 08:00 03/18/25 10:23 Fluticasone/Salmeterol 45-21 Mcg Inhaler 1 Puff INHALATION 2 puff DAILYRT LANG Administration Senna/Docusate Sodium 1 tab 03/08/25 17:12 03/11/25 05:35 Senna/Docusate Sodium Tablet PO 1 tab HS PRN Administration Constipation Senna/Docusate Sodium 1 tab 03/09/25 17:00 03/18/25 19:56 Senna/Docusate Sodium Tablet PO Not Given BID LANG Simvastatin 40 mg 03/07/25 09:00 03/18/25 10:46 Simvastatin 20 Mg Tablet PO 40 mg DAILY LANG Administration Vitamin D 25 mcg 03/07/25 09:00 03/18/25 10:48 Cholecalciferol (Vitamin D3) 25 Mcg (1,000 Units) Tablet PO 25 mcg DAILY LANG Administration Vitamin D 250 mcg 03/07/25 09:00 03/18/25 10:47 Cholecalciferol (Vitamin D3) 125 Mcg (5,000 Units) Tablet PO 250 mcg DAILY LANG Administration Radiology Results: ITS Impressions Chest X-Ray 03/06/25 16:17 IMPRESSION: 1: NO ACUTE CARDIOPULMONARY DISEASE. Venous Doppler Study 03/10/25 09:45 IMPRESSION: 1: No left lower extremity deep venous thrombosis. Lumbar Spine CT 03/10/25 15:39 IMPRESSION: 1. Again seen are changes of combined instrumented L5-S1 anterior and posterior spinal fusion with revision of the connection between the vertical srinath and the left S1 pedicle screw, placement of new bone graft material bilaterally and decompression with surgical drain placement at a postoperative hematoma/seroma at the laminectomy bed. 2. Redemonstration of nondisplaced fracture across the base of the right pedicle of L5 with some lucency along the cephalad margin of the right L5 pedicle screw at the level of the vertebral body. 3. Unchanged instrumented left sacroiliac arthrodesis. Lumbar Spine MRI 03/13/25 17:24 IMPRESSION: 1. Severe lumbar spondylosis. 2. Anterior and posterior fusion procedures at L5-S1. 3. Worsened fluid collection involving the surgical bed of the L5 posterior elements extending superiorly in the subcutaneous region. This finding may be a seroma, hematoma, or abscess. Fluoroscopy 03/16/25 18:37 IMPRESSION: 1. Fluoroscopy utilized during interpretation of an instrumented combined L5-S1 anterior and posterior spinal fusion. See procedure note for further detail. Labs Labs: Laboratory Results - last 24 hr 03/19/25 05:23 WBC 7.4 RBC 2.77 L Hgb 8.0 L Hct 26.0 L MCV 93.9 MCH 28.9 MCHC 30.8 L RDW 15.3 H Plt Count 282 MPV 10.0 Sodium 133 L Potassium 3.9 Chloride 103 Carbon Dioxide 27 Anion Gap 3 L BUN 13 Creatinine 0.66 L Estim Creat Clear Calc 64 Estimated GFR > 60 Glucose 90 Calcium 8.7 Total Bilirubin 0.1 L AST 25 ALT 22 Alkaline Phosphatase 96 Total Protein 5.8 L Albumin 3.1 L Quality VTE Prophylaxis VTE prophylaxis: pharmacologic ordered
[2025-03-19] MEDS: ENOXAPARIN 40 MG/0.4 ML SYRINGE SUB-Q (09:13)
[2025-03-19] MEDS: PANTOPRAZOLE 40 MG TABLET PO (09:13)
[2025-03-19] MEDS: GABAPENTIN 300 MG CAPSULE PO ×3 (09:13→17:03)
[2025-03-19] MEDS: CHOLECALCIFEROL (VITAMIN D3) 25 MCG (1,000 UNITS) TABLET PO (09:13)
[2025-03-19] MEDS: SENNA/DOCUSATE SODIUM TABLET 1 TAB PO (09:13)
[2025-03-19] MEDS: DOCUSATE SODIUM 100 MG CAPSULE PO (09:14)
[2025-03-19] MEDS: CHOLECALCIFEROL (VITAMIN D3) 125 MCG (5,000 UNITS) TABLET 250 MCG PO (09:14)
[2025-03-19] MEDS: SIMVASTATIN 20 MG TABLET 40 MG PO (09:14)
[2025-03-19 09:22] VITALS: PULSE 86; RESP 20; O2SAT 95
[2025-03-19] MEDS: FLUTICASONE/SALMETEROL 45-21 MCG INHALER 1 PUFF 2 PUFF INHALATION (09:22)
[2025-03-19 09:25] VITALS: PULSE 82; RESP 20
[2025-03-19] MEDS: ONDANSETRON HCL ODT 4 MG TABLET PO (10:20)
[2025-03-19] MEDS: MULTIVITAMINS THERAPEUTIC TAB (*BKC) 1 TABLET PO (14:01)
[2025-03-19] MEDS: CALCIUM CARBONATE (OSCAL) 500 MG TABLET PO (14:01)
[2025-03-19 15:49] VITALS: BP 128/66; PULSE 82; RESP 18; TEMP 36.4; O2SAT 100
[2025-03-19 20:46] VITALS: BP 106/47; PULSE 81; RESP 20; TEMP 36.2; O2SAT 98
[2025-03-20] MEDS: oxyCODONE/ACETAMINOPHEN (*CRX) 10-325 MG TABLET 1 TAB PO ×4 (01:23→21:02)
[2025-03-20] MEDS: diazePAM (*CRX) 5 MG TABLET PO ×2 (01:25→22:41)
[2025-03-20] MEDS: ACETAMINOPHEN 325 MG TABLET 650 MG PO ×3 (01:25→22:45)
[2025-03-20 05:10] LABS: Hematocrit 25.1 % (37.0-47.0); Hemoglobin 7.5 g/dL (12.0-15.0); Mean Corpuscular HGB Conc 29.9 g/dl (32-36); Mean Corpuscular Hemoglobin 29.1 pg (26-34); Mean Corpuscular Volume 97.3 fl (80-100); Platelet Count Result 242 k/mm3 (150-375); Red Blood Count 2.58 M/mm3 (4.2-5.4); White Blood Count 5.0 K/mm3 (4.5-10.0)
[2025-03-20 05:30] LABS: Alanine Aminotransferase 23 U/L (6-35); Albumin Level 2.9 g/dL (3.5-5.1); Alkaline Phosphatase 92 U/L (38-126); Anion Gap 5 mmol/L (4-12); Aspartate Amino Transferase 30 U/L (14-36); Bilirubin,Total 0.1 mg/dL (0.2-1.3); Blood Urea Nitrogen 14 mg/dL (7-17); Calcium 8.6 mg/dL (8.4-10.2); Carbon Dioxide 25 mmol/L (22-30); Chloride 104 mmol/L (98-107); Estimated CRCL calculation 67 ml/min; Estimated Glomerular Filt Rate > 60; Glucose 93 mg/dL (65-110); Potassium 3.7 mmol/L (3.4-5.0); Sodium 134 mmol/L (137-145); Total Protein 5.5 g/dL (6.3-8.2)
[2025-03-20] MEDS: LEVOTHYROXINE SODIUM 50 MCG TABLET PO (05:43)
[2025-03-20] MEDS: CEFEPIME 2 GM in SODIUM CHLORIDE 0.9% IV 50 ML 100 ML IVPB (05:44)
[2025-03-20 05:51] VITALS: BP 116/68; PULSE 88; RESP 18; TEMP 36.5; O2SAT 97
--- NOTE | 2025-03-20 07:46 | PM.IMPN ---
Progress Note: A&P Assessment and Plan (1) Back pain: Qualifiers: Back pain laterality: bilateral Back pain location: low back pain Chronicity: acute Sciatica laterality: sciatica of right side Sciatica presence: with sciatica Qualified Code(s): M54.41 - Lumbago with sciatica, right side Code(s): M54.9 - Dorsalgia, unspecified Status: Acute Assessment and Plan: s/p L5-S1 posterior lumbar interbody fusion and L3-4 hemilaminectomy 01/10/[address] Silvestre. Initially complicated by post-operative pain. Plain films demonstrated good position of the hardware and interbody devices with the exception of the left srinath which seems to not be seated in the left S1 screw head per patient's neurosurgeon. CT was completed on 03/01 (see impression below) as follow-up on this imaging. Patient has also developed new difficulty urinating for the past week, historically has had urinary incontinence for years. - CT lumbar spine, 03/01: 1. Severe lower lumbar spondylosis status post interval L5 laminectomy and combined instrumented L5-S1 anterior and posterior spinal fusion. Of note there appears to be a subacute to early chronic still discernible nondisplaced coronally oriented fracture extends across the anterior base of the right L5 pedicle. 2. Although significantly more limited on CT than with MRI particularly in the presence of streak artifact related to the metallic instrumentation, there appears to be increased soft tissue density at the laminectomy bed with suggestion of moderate residual central canal stenosis at this level. Would consider further evaluation with MRI as clinically indicated. 3. Interval instrumented left sacroiliac arthrodesis. - CT was repeated on 03/10: 1. Again seen are changes of combined instrumented L5-S1 anterior and posterior spinal fusion with revision of the connection between the vertical srinath and the left S1 pedicle screw, placement of new bone graft material bilaterally and decompression with surgical drain placement at a postoperative hematoma/seroma at the laminectomy bed. 2. Redemonstration of nondisplaced fracture across the base of the right pedicle of L5 with some lucency along the cephalad margin of the right L5 pedicle screw at the level of the vertebral body. 3. Unchanged instrumented left sacroiliac arthrodesis. Lumbar spine MRI 03/13: 1. Severe lumbar spondylosis. 2. Anterior and posterior fusion procedures at L5-S1. 3. Worsened fluid collection involving the surgical bed of the L5 posterior elements extending superiorly in the subcutaneous region. This finding may be a seroma, hematoma, or abscess. - analgesics - Scheduled Tylenol 650 q6h. Gabapentin, Aladdin 5-325 or 10-325 q4h PRN, Valium 5 mg TID PRN, dilaudid 0.25 mg q2h PRN Reviewed pain medications, remains stable on the oral regimen. - PT/OT Recommending acute rehab, however patient refuses and wishes to move forward with . States she has enough support at [facility] and will be capable for caring for herself. Continue to encourage patient to work with therapy, get up to the chair for meals and increase mobility - neurosurgery consulted s/p lumbar wound exploration for seroma, revision of posterior instrumentation L5-S1, redo posterolateral fusion L5-S1 on 03/[address] Silvestre. Drain removed per neurosurgery. s/p left L5-S1 foraminotomy and revision on 03/[address] Silvsetre. Hemovac placed at that time. Hemovac removed on 03/18 Discussed with neurosurgery [employer] and we will try increasing her gabapentin to 600 mg tonight and monitoring her sedation and confusion level. - ID consulted as possible abscess seen on the the MRI obtained on 03/14 Wound culture obtained on 03/16: aerobic culture negative. Anaerobic culture pending. Empiric cefepime, metronidazole, and vancomycin, started on 03/16 following surgical revision. Discussed with ID and IV antibiotics discontinued on 03/20. (2) Peripheral edema: Code(s): R60.0 - Localized edema Status: Acute Assessment and Plan: Reporting new, significant BLE edema. BNP WNL for age and CXR did not demonstrate any pulmonary edema. S/p lumbar surgery in December of 2024. Possible complications noted on imaging, see above. Possible complication to lumbar surgery/immobility - neli wraps as tolerated, may d/c at night to sleep - BLE VD on 03/06 and 03/10: negative for DVT - mobilize as able. Elevate lower extremities. Stable. (3) Urinary tract infection: Code(s): N39.0 - Urinary tract infection, site not specified Status: Acute Assessment and Plan: - UA with positive nitrates, 1+ LE, 6-10 WBC - patient reports urinary hesitancy - previous culture with pansensitive Klebsiella - start IV Rocephin - urine culture grew pansenstive ecoli Completed antibiotic course. Denies UTI like symptoms. (4) Hypertension: Qualifiers: Hypertension type: primary hypertension Qualified Code(s): I10 - Essential (primary) hypertension Code(s): I10 - Essential (primary) hypertension Status: Chronic Assessment and Plan: - continue home medications: HCTZ 12.5 mg daily , lisinopril 10 mg daily - blood pressures reviewed and remain stable, continue to monitor (5) Anemia: Code(s): D64.9 - Anemia, unspecified Status: Acute Assessment and Plan: - Hgb 11.7 7/3. 9.5 on admission, trended down to 8.6 - may have component of hemodilution as patient was on fluids at that time - denied signs of bleeding. unable to collect stool but reported no blood noted. - monitor CBC. Transfuse Hgb <7. iron panel showing deficiency, iron replacement stated no c/o dizziness, lightheadedness H/H remains stable, continue to monitor closely Time Spent With Patient Time with patient: 25 - 35 minutes Subjective Date/time seen: 03/20/25 07:46 Interval history: 75 year old female with past medical history of mitral valve prolapse, hypothyroidism, hyperlipidemia, asthma, and hypertension presents to the hospital with back pain and lower extremity edema. Patient is pleasant sitting up comfortably in bed. She states that she is frustrated at this time as she continues to endorse pain/tingling/numbness to the left lower extremity primarily in the foot. She notes that tingling primarily occurs with ambulation when working with therapy. She also continues to endorse back pain along the surgical incision. Discussed patient with physical therapy and they states that she did do slightly better. They were originally recommending placement however patient is adamant that she is going to go home with home health. She states that she has proper care at home will be capable of doing this with the family. Patient has no other complaints denying chest pain, shortness a breath, palpitations, nausea/vomiting, abdominal pain. Review of Systems Review of Systems: All systems reviewed & are unremarkable except as noted in HPI and below Exam Narrative: AF HR 88 RR 18 Spo2 97 BP 116/68 General: female in no acute respiratory distress who is nontoxic appearing, sitting up in bed HEENT: Normocephalic. Atraumatic. Extraocular movement intact. Sclera clear and anicteric. No facial asymmetry. Chest: Lungs are clear to auscultation bilaterally. No wheezes or crackles. CV: Heart was regular rate and rhythm. Abd: Abdomen was soft. Nontender. Nondistended. Positive bowel sounds. Back: Surgical incision without redness, drainage or warmth. [address] Ext: No clubbing, cyanosis. Mild edema to left lower extremity, improving from yesterday. DP pulses bilaterally. Decreased sensation to left lower extremity. Neuro: Patient is alert. Sensation intact. Speech is clear. Objective Data Vital Signs Vital Signs: Vital Signs - 24 hr 03/19/25 08:00 03/19/25 09:22 03/19/25 09:22 Temperature Pulse Rate 86 86 Respiratory Rate 20 20 Blood Pressure Pulse Oximetry 95 Oxygen Delivery Room Air Room Air 03/19/25 09:25 03/19/25 15:49 03/19/25 20:00 Temperature 97.5 F L Pulse Rate 82 82 Respiratory Rate 20 18 Blood Pressure 128/66 Pulse Oximetry 100 Oxygen Delivery Room Air 03/19/25 20:46 03/20/25 05:51 Temperature 97.2 F L 97.7 F Pulse Rate 81 88 Respiratory Rate 20 18 Blood Pressure 106/47 L 116/68 Pulse Oximetry 98 97 Oxygen Delivery Intake/Output Intake/Output: Intake & Output 03/17/25 03/18/25 03/19/25 03/20/25 23:59 23:59 23:59 23:59 Intake Total 1280 1690 1970 200 Output Total 1265 2330 800 300 Balance 15 -640 1170 -100 Meds/Results Medications: Active Medications Generic Name Dose Route Start Last Admin Trade Name Freq PRN Reason Stop Dose Admin Acetaminophen 650 mg 03/16/25 11:20 03/20/25 05:43 Acetaminophen 325 Mg Tablet PO 650 mg Q6HR LANG Administration Al Hydrox/Mg Hydrox/Simethicone 20 ml 03/08/25 17:12 Mag Hydrox/Al Hydrox/Simeth 30 Ml Udc PO Q4H PRN Indigestion/Heartburn Albuterol 1 puff 03/06/25 21:53 Albuterol Sulfate (*Sp) Aerosol 1 Puff INHALATION Q4-6H PRN Wheezing Bisacodyl 10 mg 03/08/25 17:12 Bisacodyl 10 Mg Suppository RECTAL DAILY PRN Constipation Calcium Carbonate 500 mg 03/07/25 12:00 03/19/25 14:01 Calcium Carbonate (Oscal) 500 Mg Tablet PO 500 mg DAILY@1200 [facility] Administration Diazepam 5 mg 03/11/25 17:10 03/20/25 01:25 Diazepam (*Crx) 5 Mg Tablet PO 5 mg TID PRN Administration Muscle Spasm Docusate Sodium 100 mg 03/06/25 17:06 Docusate Sodium 100 Mg Capsule PO Q12H PRN Constipation Docusate Sodium 100 mg 03/08/25 21:00 03/19/25 22:16 Docusate Sodium 100 Mg Capsule PO Not Given Q12HR [facility] Enoxaparin Sodium 40 mg 03/12/25 13:40 03/19/25 09:13 Enoxaparin 40 Mg/0.4 Ml Syringe SUB-Q 40 mg DAILY [facility] Administration Gabapentin 300 mg 03/18/25 13:00 03/19/25 17:03 Gabapentin 300 Mg Capsule PO 300 mg TID [facility] Administration Hydrochlorothiazide 12.5 mg 03/07/25 09:00 03/19/25 09:14 Hydrochlorothiazide 12.5 Mg Capsule PO 12.5 mg DAILY [facility] Administration Hydromorphone HCl 0.25 mg 03/16/25 13:51 Hydromorphone Hcl Inj (*Crx) 1 Mg/Ml Syr IV PUSH Q5M PRN Pain Hydroxyzine HCl 25 mg 03/06/25 21:38 03/15/25 22:58 Hydroxyzine Hcl 25 Mg Tablet PO 25 mg QID PRN Administration Anxiety Cefepime HCl 2 gm/ Sodium 50 mls @ 100 mls/hr 03/16/25 18:00 03/20/25 05:44 Chloride IVPB 100 mls/hr Q12H [facility]ANG Administration Vancomycin HCl 1,750 mg in 500 mls @ 250 mls/hr 03/18/25 07:00 03/19/25 21:39 Vancomycin 1,750 Mg/Ns 500 Ml IVPB 250 mls/hr Q18H [facility] Administration Levothyroxine Sodium 50 mcg 03/07/25 06:30 03/20/25 05:43 Levothyroxine Sodium 50 Mcg Tablet PO 50 mcg DAILY@0630 [facility] Administration Lidocaine 1 patch 03/11/25 09:00 03/19/25 09:17 Lidocaine 5% Patch TRANSDERM Not Given DAILY [facility] Lisinopril 10 mg 03/07/25 09:00 03/19/25 09:14 Lisinopril 10 Mg Tablet PO 10 mg DAILY [facility] Administration Loratadine 10 mg 03/06/25 21:44 Loratadine 10 Mg Tablet PO DAILY PRN Congestion Meclizine HCl 25 mg 03/06/25 21:38 03/14/25 10:09 Meclizine Hcl 25 Mg Tablet PO 25 mg TID PRN Administration Dizziness Or Vertigo Metronidazole 500 mg 03/16/25 17:00 03/20/25 05:43 Metronidazole 500 Mg Tablet PO 500 mg Q8HR [facility]ANG Administration Miscellaneous Information 1 each 03/17/25 00:01 Please Renew _Hydromorphone An. Per [employer] Procedure, It Will Discontinue If Not Renewed XX 04/16/25 00:00 CLARIFY LANG Multivitamins Therapeutic 1 tablet 03/07/25 12:00 03/19/25 14:01 Multivitamins Therapeutic Tab (*Bkc) PO 1 tablet DAILY@1200 [facility] Administration Ondansetron HCl 4 mg 03/06/25 17:01 03/19/25 10:20 Ondansetron Hcl Odt 4 Mg Tablet PO 4 mg Q6H PRN Administration Nausea And Vomiting Oxycodone/Acetaminophen 1 tab 03/07/25 10:39 03/20/25 05:42 Oxycodone/Acetaminophen (*Crx) 10-325 Mg Tablet PO 1 tab Q4H PRN Administration Pain Rated 7-10 Pantoprazole Sodium 40 mg 03/07/25 09:00 03/19/25 09:13 Pantoprazole 40 Mg Tablet PO 40 mg QAM [facility]ANG Administration Polyethylene Glycol 17 gm 03/06/25 17:06 Polyethylene Glycol 3350 17 Gm Powd.Pack PO QAM PRN Constipation Fluticasone/Salmeterol 2 puff 03/07/25 08:00 03/19/25 09:22 Fluticasone/Salmeterol 45-21 Mcg Inhaler 1 Puff INHALATION 2 puff DAILYRT [facility]ANG Administration Senna/Docusate Sodium 1 tab 03/08/25 17:12 03/11/25 05:35 Senna/Docusate Sodium Tablet PO 1 tab HS PRN Administration Constipation Senna/Docusate Sodium 1 tab 03/09/25 17:00 03/19/25 17:04 Senna/Docusate Sodium Tablet PO Not Given BID LANG Simvastatin 40 mg 03/07/25 09:00 03/19/25 09:14 Simvastatin 20 Mg Tablet PO 40 mg DAILY [facility] Administration Vitamin D 25 mcg 03/07/25 09:00 03/19/25 09:13 Cholecalciferol (Vitamin D3) 25 Mcg (1,000 Units) Tablet PO 25 mcg DAILY [facility] Administration Vitamin D 250 mcg 03/07/25 09:00 03/19/25 09:14 Cholecalciferol (Vitamin D3) 125 Mcg (5,000 Units) Tablet PO 250 mcg DAILY [facility] Administration Radiology Results: ITS Impressions Chest X-Ray 03/06/25 16:17 IMPRESSION: 1: NO ACUTE CARDIOPULMONARY DISEASE. Venous Doppler Study 03/10/25 09:45 IMPRESSION: 1: No left lower extremity deep venous thrombosis. Lumbar Spine CT 03/10/25 15:39 IMPRESSION: 1. Again seen are changes of combined instrumented L5-S1 anterior and posterior spinal fusion with revision of the connection between the vertical srinath and the left S1 pedicle screw, placement of new bone graft material bilaterally and decompression with surgical drain placement at a postoperative hematoma/seroma at the laminectomy bed. 2. Redemonstration of nondisplaced fracture across the base of the right pedicle of L5 with some lucency along the cephalad margin of the right L5 pedicle screw at the level of the vertebral body. 3. Unchanged instrumented left sacroiliac arthrodesis. Lumbar Spine MRI 03/13/25 17:24 IMPRESSION: 1. Severe lumbar spondylosis. 2. Anterior and posterior fusion procedures at L5-S1. 3. Worsened fluid collection involving the surgical bed of the L5 posterior elements extending superiorly in the subcutaneous region. This finding may be a seroma, hematoma, or abscess. Fluoroscopy 03/16/25 18:37 IMPRESSION: 1. Fluoroscopy utilized during interpretation of an instrumented combined L5-S1 anterior and posterior spinal fusion. See procedure note for further detail. Labs Labs: Laboratory Results - last 24 hr 03/19/25 03/20/25 18:18 04:28 WBC 5.0 RBC 2.58 L Hgb 7.5 L Hct 25.1 L MCV 97.3 MCH 29.1 MCHC 29.9 L RDW 15.5 H Plt Count 242 MPV 11.0 H Sodium 134 L Potassium 3.7 Chloride 104 Carbon Dioxide 25 Anion Gap 5 BUN 14 Creatinine 0.63 L Estim Creat Clear Calc 67 Estimated GFR > 60 Glucose 93 Calcium 8.6 Total Bilirubin 0.1 L AST 30 ALT 23 Alkaline Phosphatase 92 Total Protein 5.5 L Albumin 2.9 L Vancomycin Trough 16.1 Quality VTE Prophylaxis VTE prophylaxis: pharmacologic ordered
[2025-03-20] MEDS: FLUTICASONE/SALMETEROL 45-21 MCG INHALER 1 PUFF 2 PUFF INHALATION (08:59)
[2025-03-20] MEDS: SIMVASTATIN 20 MG TABLET 40 MG PO (09:05)
[2025-03-20] MEDS: GABAPENTIN 300 MG CAPSULE PO ×2 (09:05→14:09)
[2025-03-20] MEDS: CHOLECALCIFEROL (VITAMIN D3) 25 MCG (1,000 UNITS) TABLET PO (09:05)
[2025-03-20] MEDS: CHOLECALCIFEROL (VITAMIN D3) 125 MCG (5,000 UNITS) TABLET 250 MCG PO (09:06)
[2025-03-20] MEDS: PANTOPRAZOLE 40 MG TABLET PO (09:06)
[2025-03-20] MEDS: ENOXAPARIN 40 MG/0.4 ML SYRINGE SUB-Q (09:06)
--- NOTE | 2025-03-20 11:22 | PCNWS ---
Weekly nutritional screen. Patient is tolerating current diet with adequate intake. No weight loss reported. No nutritional needs at this time.
--- NOTE | 2025-03-20 13:09 | P.PNNEUSUR_ITS ---
Progress Note: A&P Assessment and Plan (1) Status post lumbar spinal arthrodesis: Code(s): Z98.1 - Arthrodesis status Status: Acute Plan A/P: Patient continues to have left lower extremity pain, numbness, weakness, and edema but overall exam is stable. Aerobic cultures negative, anaerobic pending but ID stopped IV antibiotics given negative aerobic cultures. Patient wants to go home and declines rehab placement. Spoke to hospitalist, we will try increasing her gabapentin to 600 mg tonight and monitoring her sedation and confusion level. Plan home tomorrow with home health if does ok with increased gabapentin. Can consider switching to pregabalin outpatient if needed. Time Spent With Patient Time with patient: 25 - 35 minutes Subjective Date/time seen: 03/20/25 13:09 Interval history: POD # 4 s/p L5-S1 Fusion revision left Foraminotomy. Patient continues to have numbness, pain, and weakness in left foot. Improving in PT/OT. Aerobic culture final, no growth. Anaerobic culture pending. Infectious Disease stopped IV antibiotics. Patient is understandably frustrated and wants to go home. She is not interested in rehab/SNF but is agreeable to home health care. She has not noticed any improvement in her pain with gabapen tin but does report he feeling kind of loopy. Exam Neuro: Other: Alert and oriented x 3 Motor: Left DF 3/5, EHL 4/5, otherwise full strength x 4 Extrem: Other: edema left foot and ankle, unchanged Objective Data Vital Signs Vital Signs: Vital Signs - 24 hr 03/19/25 15:49 03/19/25 20:00 03/19/25 20:46 Temperature 97.5 F L 97.2 F L Pulse Rate 82 81 Respiratory Rate 18 20 Blood Pressure 128/66 106/47 L Pulse Oximetry 100 98 Oxygen Delivery Room Air 03/20/25 05:51 Temperature 97.7 F Pulse Rate 88 Respiratory Rate 18 Blood Pressure 116/68 Pulse Oximetry 97 Oxygen Delivery Intake/Output Intake/Output: Intake & Output 03/17/25 03/18/25 03/19/25 03/20/25 23:59 23:59 23:59 23:59 Intake Total 1280 1690 1970 200 Output Total 1265 2330 800 300 Balance 15 -640 1170 -100 Meds/Results Medications: Active Medications Generic Name Dose Route Start Last Admin Trade Name Freq PRN Reason Stop Dose Admin Acetaminophen 650 mg 03/16/25 11:20 03/20/25 05:43 Acetaminophen 325 Mg Tablet PO 650 mg Q6HR LANG Administration Al Hydrox/Mg Hydrox/Simethicone 20 ml 03/08/25 17:12 Mag Hydrox/Al Hydrox/Simeth 30 Ml Udc PO Q4H PRN Indigestion/Heartburn Albuterol 1 puff 03/06/25 21:53 Albuterol Sulfate (*Sp) Aerosol 1 Puff INHALATION Q4-6H PRN Wheezing Bisacodyl 10 mg 03/08/25 17:12 Bisacodyl 10 Mg Suppository RECTAL DAILY PRN Constipation Calcium Carbonate 500 mg 03/07/25 12:00 03/19/25 14:01 Calcium Carbonate (Oscal) 500 Mg Tablet PO 500 mg DAILY@1200 [facility] Administration Diazepam 5 mg 03/11/25 17:10 03/20/25 01:25 Diazepam (*Crx) 5 Mg Tablet PO 5 mg TID PRN Administration Muscle Spasm Docusate Sodium 100 mg 03/06/25 17:06 Docusate Sodium 100 Mg Capsule PO Q12H PRN Constipation Docusate Sodium 100 mg 03/08/25 21:00 03/20/25 09:10 Docusate Sodium 100 Mg Capsule PO Not Given Q12HR [facility] Enoxaparin Sodium 40 mg 03/12/25 13:40 03/20/25 09:06 Enoxaparin 40 Mg/0.4 Ml Syringe SUB-Q 40 mg DAILY [facility] Administration Gabapentin 300 mg 03/18/25 13:00 03/20/25 09:05 Gabapentin 300 Mg Capsule PO 300 mg TID [facility] Administration Hydrochlorothiazide 12.5 mg 03/07/25 09:00 03/20/25 09:05 Hydrochlorothiazide 12.5 Mg Capsule PO 12.5 mg DAILY [facility] Administration Hydromorphone HCl 0.25 mg 03/16/25 13:51 Hydromorphone Hcl Inj (*Crx) 1 Mg/Ml Syr IV PUSH Q5M PRN Pain Hydroxyzine HCl 25 mg 03/06/25 21:38 03/15/25 22:58 Hydroxyzine Hcl 25 Mg Tablet PO 25 mg QID PRN Administration Anxiety Levothyroxine Sodium 50 mcg 03/07/25 06:30 03/20/25 05:43 Levothyroxine Sodium 50 Mcg Tablet PO 50 mcg DAILY@0630 [facility] Administration Lidocaine 1 patch 03/11/25 09:00 03/20/25 09:07 Lidocaine 5% Patch TRANSDERM Not Given DAILY [facility] Lisinopril 10 mg 03/07/25 09:00 03/20/25 09:05 Lisinopril 10 Mg Tablet PO 10 mg DAILY [facility] Administration Loratadine 10 mg 03/06/25 21:44 Loratadine 10 Mg Tablet PO DAILY PRN Congestion Meclizine HCl 25 mg 03/06/25 21:38 03/14/25 10:09 Meclizine Hcl 25 Mg Tablet PO 25 mg TID PRN Administration Dizziness Or Vertigo Miscellaneous Information 1 each 03/17/25 00:01 Please Renew _Hydromorphone An. Per [employer] Procedure, It Will Discontinue If Not Renewed XX 04/16/25 00:00 CLARIFY LANG Multivitamins Therapeutic 1 tablet 03/07/25 12:00 03/19/25 14:01 Multivitamins Therapeutic Tab (*Bkc) PO 1 tablet DAILY@1200 [facility] Administration Ondansetron HCl 4 mg 03/06/25 17:01 03/19/25 10:20 Ondansetron Hcl Odt 4 Mg Tablet PO 4 mg Q6H PRN Administration Nausea And Vomiting Oxycodone/Acetaminophen 1 tab 03/07/25 10:39 03/20/25 11:22 Oxycodone/Acetaminophen (*Crx) 10-325 Mg Tablet PO 1 tab Q4H PRN Administration Pain Rated 7-10 Pantoprazole Sodium 40 mg 03/07/25 09:00 03/20/25 09:06 Pantoprazole 40 Mg Tablet PO 40 mg QAM LANG Administration Polyethylene Glycol 17 gm 03/06/25 17:06 Polyethylene Glycol 3350 17 Gm Powd.Pack PO QAM PRN Constipation Fluticasone/Salmeterol 2 puff 03/07/25 08:00 03/20/25 08:59 Fluticasone/Salmeterol 45-21 Mcg Inhaler 1 Puff INHALATION 2 puff DAILYRT [facility] Administration Senna/Docusate Sodium 1 tab 03/08/25 17:12 03/11/25 05:35 Senna/Docusate Sodium Tablet PO 1 tab HS PRN Administration Constipation Senna/Docusate Sodium 1 tab 03/09/25 17:00 03/20/25 09:10 Senna/Docusate Sodium Tablet PO Not Given BID LANG Simvastatin 40 mg 03/07/25 09:00 03/20/25 09:05 Simvastatin 20 Mg Tablet PO 40 mg DAILY [facility] Administration Vitamin D 25 mcg 03/07/25 09:00 03/20/25 09:05 Cholecalciferol (Vitamin D3) 25 Mcg (1,000 Units) Tablet PO 25 mcg DAILY [facility] Administration Vitamin D 250 mcg 03/07/25 09:00 03/20/25 09:06 Cholecalciferol (Vitamin D3) 125 Mcg (5,000 Units) Tablet PO 250 mcg DAILY LANG Administration Radiology Results: ITS Impressions Chest X-Ray 03/06/25 16:17 IMPRESSION: 1: NO ACUTE CARDIOPULMONARY DISEASE. Venous Doppler Study 03/10/25 09:45 IMPRESSION: 1: No left lower extremity deep venous thrombosis. Lumbar Spine CT 03/10/25 15:39 IMPRESSION: 1. Again seen are changes of combined instrumented L5-S1 anterior and posterior spinal fusion with revision of the connection between the vertical srinath and the left S1 pedicle screw, placement of new bone graft material bilaterally and decompression with surgical drain placement at a postoperative hematoma/seroma at the laminectomy bed. 2. Redemonstration of nondisplaced fracture across the base of the right pedicle of L5 with some lucency along the cephalad margin of the right L5 pedicle screw at the level of the vertebral body. 3. Unchanged instrumented left sacroiliac arthrodesis. Lumbar Spine MRI 03/13/25 17:24 IMPRESSION: 1. Severe lumbar spondylosis. 2. Anterior and posterior fusion procedures at L5-S1. 3. Worsened fluid collection involving the surgical bed of the L5 posterior elements extending superiorly in the subcutaneous region. This finding may be a seroma, hematoma, or abscess. Fluoroscopy 03/16/25 18:37 IMPRESSION: 1. Fluoroscopy utilized during interpretation of an instrumented combined L5-S1 anterior and posterior spinal fusion. See procedure note for further detail. Labs Labs: Laboratory Results - last 24 hr 03/19/25 03/20/25 18:18 04:28 WBC 5.0 RBC 2.58 L Hgb 7.5 L Hct 25.1 L MCV 97.3 MCH 29.1 MCHC 29.9 L RDW 15.5 H Plt Count 242 MPV 11.0 H Sodium 134 L Potassium 3.7 Chloride 104 Carbon Dioxide 25 Anion Gap 5 BUN 14 Creatinine 0.63 L Estim Creat Clear Calc 67 Estimated GFR > 60 Glucose 93 Calcium 8.6 Total Bilirubin 0.1 L AST 30 ALT 23 Alkaline Phosphatase 92 Total Protein 5.5 L Albumin 2.9 L Vancomycin Trough 16.1
[2025-03-20 14:00] VITALS: BP 130/68; PULSE 89; RESP 16; TEMP 36.8; O2SAT 99
[2025-03-20] MEDS: CALCIUM CARBONATE (OSCAL) 500 MG TABLET PO (14:09)
[2025-03-20] MEDS: MULTIVITAMINS THERAPEUTIC TAB (*BKC) 1 TABLET PO (14:09)
--- NOTE | 2025-03-20 19:01 | WPDINFPN2 ---
Progress Note: A&P Assessment and Plan (1) Inflammatory spondylopathy of sacral region: Code(s): M46.98 - Unspecified inflammatory spondylopathy, sacral and sacrococcygeal region Status: Acute (2) Acute post-operative pain: Code(s): G89.18 - Other acute postprocedural pain Status: Acute (3) Hematoma following procedure: Status: Acute (4) Urinary tract infection: Code(s): N39.0 - Urinary tract infection, site not specified Status: Acute (5) Edema of left lower extremity: Code(s): R60.0 - Localized edema Status: Acute (6) Antibiotic causing adverse effect: Code(s): T36.95XA - Adverse effect of unspecified systemic antibiotic, initial encounter Status: Acute Plan # Postoperative lumbosacral recurrent fluid collection. -- status post surgical site revision with evacuation 03/08/2025 but with recurrence. Now status post L5-S1 revision posterior instrumentation, L5-S1 left side foraminotomy with evacuation of hematoma and obtainment of cultures 03/16/2025. -- seroma/hematoma without clinical evidence of abscess noted 03/08/2025. Similar hematoma encountered 03/16/2025. In addition, she has been without fever, leukocytosis, or elevated CRP at the time of presentation and remains without fever or leukocytosis since. -- recurrent fluid collection may again represent seroma/hematoma but can not completely rule out the possibility of secondary infected fluid collection (abscess). However, might expect fever and or leukocytosis if that were the case. # Status post treatment for E coli UTI on presentation. --completed treatment with ceftriaxone. # Reported hives allergy to penicillin and additional allergy to sulfa medications. -- proven to tolerate cephalosporins. Plan: --Follow off abx from today Follow anaerobic cx Can follow with me in 2 weeks to monitor sx in outpt setting d/w primary care team. Patient was seen via video telehealth consultation with the assistance of staff. Chart, data, and patient independently reviewed. Patient was located at [facility] while I was located in my [place] office. Received verbal consent from patient. Subjective Date/time seen: 03/20/25 19:01 Interval history: no fever. back pain about the same. no issues with abx. Exam Narrative: Sitting up at the side of the bed and working with physical therapy. In better spirits today. No respiratory difficulty. No significant abdominal distension. Back surgical site Hemovac in place with bloody drainage present. No rash. Objective Data Vital Signs Vital Signs: Vital Signs - 24 hr 03/19/25 20:00 03/19/25 20:46 03/20/25 05:51 Temperature 36.2 C L 36.5 C Pulse Rate 81 88 Respiratory Rate 20 18 Blood Pressure 106/47 L 116/68 Pulse Oximetry 98 97 Oxygen Delivery Room Air 03/20/25 08:00 03/20/25 14:00 Temperature 36.8 C Pulse Rate 89 Respiratory Rate 16 Blood Pressure 130/68 Pulse Oximetry 99 Oxygen Delivery Room Air Intake/Output Intake/Output: Intake & Output 03/17/25 03/18/25 03/19/25 03/20/25 23:59 23:59 23:59 23:59 Intake Total 1280 1690 1970 440 Output Total 1265 2330 800 300 Balance 15 -640 1170 140 Meds/Results Medications: Active Medications Generic Name Dose Route Start Last Admin Trade Name Freq PRN Reason Stop Dose Admin Acetaminophen 650 mg 03/16/25 11:20 03/20/25 18:45 Acetaminophen 325 Mg Tablet PO Not Given Q6HR LANG Al Hydrox/Mg Hydrox/Simethicone 20 ml 03/08/25 17:12 Mag Hydrox/Al Hydrox/Simeth 30 Ml Udc PO Q4H PRN Indigestion/Heartburn Albuterol 1 puff 03/06/25 21:53 Albuterol Sulfate (*Sp) Aerosol 1 Puff INHALATION Q4-6H PRN Wheezing Bisacodyl 10 mg 03/08/25 17:12 Bisacodyl 10 Mg Suppository RECTAL DAILY PRN Constipation Calcium Carbonate 500 mg 03/07/25 12:00 03/20/25 14:09 Calcium Carbonate (Oscal) 500 Mg Tablet PO 500 mg DAILY@1200 [facility] Administration Diazepam 5 mg 03/11/25 17:10 03/20/25 01:25 Diazepam (*Crx) 5 Mg Tablet PO 5 mg TID PRN Administration Muscle Spasm Docusate Sodium 100 mg 03/06/25 17:06 Docusate Sodium 100 Mg Capsule PO Q12H PRN Constipation Docusate Sodium 100 mg 03/08/25 21:00 03/20/25 09:10 Docusate Sodium 100 Mg Capsule PO Not Given Q12HR [facility] Enoxaparin Sodium 40 mg 03/12/25 13:40 03/20/25 09:06 Enoxaparin 40 Mg/0.4 Ml Syringe SUB-Q 40 mg DAILY [facility]ANG Administration Gabapentin 300 mg 03/21/25 09:00 Gabapentin 300 Mg Capsule PO BID@0900,1200 [facility] Gabapentin 600 mg 03/20/25 21:00 Gabapentin 300 Mg Capsule PO HS [facility] Hydrochlorothiazide 12.5 mg 03/07/25 09:00 03/20/25 09:05 Hydrochlorothiazide 12.5 Mg Capsule PO 12.5 mg DAILY [facility]ANG Administration Hydromorphone HCl 0.25 mg 03/16/25 13:51 Hydromorphone Hcl Inj (*Crx) 1 Mg/Ml Syr IV PUSH Q5M PRN Pain Hydroxyzine HCl 25 mg 03/06/25 21:38 03/15/25 22:58 Hydroxyzine Hcl 25 Mg Tablet PO 25 mg QID PRN Administration Anxiety Levothyroxine Sodium 50 mcg 03/07/25 06:30 03/20/25 05:43 Levothyroxine Sodium 50 Mcg Tablet PO 50 mcg DAILY@0630 [facility] Administration Lidocaine 1 patch 03/11/25 09:00 03/20/25 09:07 Lidocaine 5% Patch TRANSDERM Not Given DAILY [facility] Lisinopril 10 mg 03/07/25 09:00 03/20/25 09:05 Lisinopril 10 Mg Tablet PO 10 mg DAILY [facility] Administration Loratadine 10 mg 03/06/25 21:44 Loratadine 10 Mg Tablet PO DAILY PRN Congestion Meclizine HCl 25 mg 03/06/25 21:38 03/14/25 10:09 Meclizine Hcl 25 Mg Tablet PO 25 mg TID PRN Administration Dizziness Or Vertigo Miscellaneous Information 1 each 03/17/25 00:01 Please Renew _Hydromorphone An. Per [employer] Procedure, It Will Discontinue If Not Renewed XX 04/16/25 00:00 CLARIFY [facility] Miscellaneous Information 1 each 03/20/25 00:01 Please Renew Diazepam. Per [employer] Procedure, It Will Discontinue If Not Renewed XX 04/19/25 00:00 CLARIFY [facility] Multivitamins Therapeutic 1 tablet 03/07/25 12:00 03/20/25 14:09 Multivitamins Therapeutic Tab (*Bkc) PO 1 tablet DAILY@1200 [facility]ANG Administration Ondansetron HCl 4 mg 03/06/25 17:01 03/19/25 10:20 Ondansetron Hcl Odt 4 Mg Tablet PO 4 mg Q6H PRN Administration Nausea And Vomiting Oxycodone/Acetaminophen 1 tab 03/07/25 10:39 03/20/25 11:22 Oxycodone/Acetaminophen (*Crx) 10-325 Mg Tablet PO 1 tab Q4H PRN Administration Pain Rated 7-10 Pantoprazole Sodium 40 mg 03/07/25 09:00 03/20/25 09:06 Pantoprazole 40 Mg Tablet PO 40 mg QAM LANG Administration Polyethylene Glycol 17 gm 03/06/25 17:06 Polyethylene Glycol 3350 17 Gm Powd.Pack PO QAM PRN Constipation Fluticasone/Salmeterol 2 puff 03/07/25 08:00 03/20/25 08:59 Fluticasone/Salmeterol 45-21 Mcg Inhaler 1 Puff INHALATION 2 puff DAILYRT LANG Administration Senna/Docusate Sodium 1 tab 03/08/25 17:12 03/11/25 05:35 Senna/Docusate Sodium Tablet PO 1 tab HS PRN Administration Constipation Senna/Docusate Sodium 1 tab 03/09/25 17:00 03/20/25 18:45 Senna/Docusate Sodium Tablet PO Not Given BID [facility] Simvastatin 40 mg 03/07/25 09:00 03/20/25 09:05 Simvastatin 20 Mg Tablet PO 40 mg DAILY [facility]ANG Administration Vitamin D 25 mcg 03/07/25 09:00 03/20/25 09:05 Cholecalciferol (Vitamin D3) 25 Mcg (1,000 Units) Tablet PO 25 mcg DAILY LANG Administration Vitamin D 250 mcg 03/07/25 09:00 03/20/25 09:06 Cholecalciferol (Vitamin D3) 125 Mcg (5,000 Units) Tablet PO 250 mcg DAILY [facility]ANG Administration Radiology Results: ITS Impressions Chest X-Ray 03/06/25 16:17 IMPRESSION: 1: NO ACUTE CARDIOPULMONARY DISEASE. Venous Doppler Study 03/10/25 09:45 IMPRESSION: 1: No left lower extremity deep venous thrombosis. Lumbar Spine CT 03/10/25 15:39 IMPRESSION: 1. Again seen are changes of combined instrumented L5-S1 anterior and posterior spinal fusion with revision of the connection between the vertical srinath and the left S1 pedicle screw, placement of new bone graft material bilaterally and decompression with surgical drain placement at a postoperative hematoma/seroma at the laminectomy bed. 2. Redemonstration of nondisplaced fracture across the base of the right pedicle of L5 with some lucency along the cephalad margin of the right L5 pedicle screw at the level of the vertebral body. 3. Unchanged instrumented left sacroiliac arthrodesis. Lumbar Spine MRI 03/13/25 17:24 IMPRESSION: 1. Severe lumbar spondylosis. 2. Anterior and posterior fusion procedures at L5-S1. 3. Worsened fluid collection involving the surgical bed of the L5 posterior elements extending superiorly in the subcutaneous region. This finding may be a seroma, hematoma, or abscess. Fluoroscopy 03/16/25 18:37 IMPRESSION: 1. Fluoroscopy utilized during interpretation of an instrumented combined L5-S1 anterior and posterior spinal fusion. See procedure note for further detail. Labs Labs: Laboratory Results - last 24 hr 03/20/25 04:28 WBC 5.0 RBC 2.58 L Hgb 7.5 L Hct 25.1 L MCV 97.3 MCH 29.1 MCHC 29.9 L RDW 15.5 H Plt Count 242 MPV 11.0 H Sodium 134 L Potassium 3.7 Chloride 104 Carbon Dioxide 25 Anion Gap 5 BUN 14 Creatinine 0.63 L Estim Creat Clear Calc 67 Estimated GFR > 60 Glucose 93 Calcium 8.6 Total Bilirubin 0.1 L AST 30 ALT 23 Alkaline Phosphatase 92 Total Protein 5.5 L Albumin 2.9 L
[2025-03-20] MEDS: GABAPENTIN 300 MG CAPSULE 600 MG PO (21:02)
[2025-03-20] MEDS: DOCUSATE SODIUM 100 MG CAPSULE PO (21:03)
[2025-03-20 21:49] VITALS: BP 121/71; PULSE 87; RESP 18; TEMP 37.2; O2SAT 100
[2025-03-21 05:05] VITALS: BP 111/68; PULSE 72; RESP 16; TEMP 36.4; O2SAT 98
[2025-03-21] MEDS: oxyCODONE/ACETAMINOPHEN (*CRX) 10-325 MG TABLET 1 TAB PO ×2 (05:26→10:09)
[2025-03-21 06:15] LABS: Hematocrit 27.8 % (37.0-47.0); Hemoglobin 8.5 g/dL (12.0-15.0); Mean Corpuscular HGB Conc 30.6 g/dl (32-36); Mean Corpuscular Hemoglobin 28.9 pg (26-34); Mean Corpuscular Volume 94.6 fl (80-100); Platelet Count Result 280 k/mm3 (150-375); Red Blood Count 2.94 M/mm3 (4.2-5.4); White Blood Count 5.7 K/mm3 (4.5-10.0)
[2025-03-21] MEDS: LEVOTHYROXINE SODIUM 50 MCG TABLET PO (06:29)
[2025-03-21] MEDS: ACETAMINOPHEN 325 MG TABLET 650 MG PO ×2 (06:29→11:42)
[2025-03-21 06:35] LABS: Alanine Aminotransferase 29 U/L (6-35); Albumin Level 3.3 g/dL (3.5-5.1); Alkaline Phosphatase 101 U/L (38-126); Anion Gap 4 mmol/L (4-12); Aspartate Amino Transferase 34 U/L (14-36); Bilirubin,Total 0.2 mg/dL (0.2-1.3); Blood Urea Nitrogen 13 mg/dL (7-17); Calcium 9.3 mg/dL (8.4-10.2); Carbon Dioxide 30 mmol/L (22-30); Chloride 101 mmol/L (98-107); Estimated CRCL calculation 66 ml/min; Estimated Glomerular Filt Rate > 60; Glucose 89 mg/dL (65-110); Sodium 135 mmol/L (137-145); Total Protein 6.1 g/dL (6.3-8.2)
[2025-03-21 06:42] LABS: Potassium 3.8 mmol/L (3.4-5.0)
[2025-03-21 08:27] VITALS: PULSE 80; RESP 20
[2025-03-21] MEDS: FLUTICASONE/SALMETEROL 45-21 MCG INHALER 1 PUFF 2 PUFF INHALATION (08:27)
[2025-03-21] MEDS: SIMVASTATIN 20 MG TABLET 40 MG PO (08:50)
[2025-03-21] MEDS: CHOLECALCIFEROL (VITAMIN D3) 25 MCG (1,000 UNITS) TABLET PO (08:50)
[2025-03-21] MEDS: DOCUSATE SODIUM 100 MG CAPSULE PO (08:50)
[2025-03-21] MEDS: PANTOPRAZOLE 40 MG TABLET PO (08:51)
[2025-03-21] MEDS: GABAPENTIN 300 MG CAPSULE PO ×2 (08:51→11:43)
[2025-03-21] MEDS: CHOLECALCIFEROL (VITAMIN D3) 125 MCG (5,000 UNITS) TABLET 250 MCG PO (08:51)
[2025-03-21] MEDS: SENNA/DOCUSATE SODIUM TABLET 1 TAB PO (08:51)
[2025-03-21] MEDS: ENOXAPARIN 40 MG/0.4 ML SYRINGE SUB-Q (08:52)
--- NOTE | 2025-03-21 10:39 | P.PNNEUSUR_ITS ---
Progress Note: A&P Assessment and Plan (1) Foraminal stenosis of lumbosacral region: Code(s): M48.07 - Spinal stenosis, lumbosacral region Status: Acute Assessment and Plan: I believe that Yaima can be discharged from the hospital with adequate pain medication on her current schedule. If she is taking gabapentin she should also continue that. Home health has been arranged, apparently. Her juan will n eed to be removed 7-10 days from surgery which would be the end of this week. Perhaps this can be done by home health. Perhaps a staple remover can be sent home with her. We will have our office contact her about follow-up. She may need a prescription for a walker. Subjective Date/time seen: 03/21/25 10:39 Interval history: After her last surgery, Yaima persists in having left lower extremity discomfort but the right lower extremity discomfort went away. She believes that she has improved foot strength. She is able to make transfers independently. Since the by mouth pain medicine, that is, the Percocet, is working for her as long as she takes it on the schedule. Exam Narrative: There is weakness of dorsiflexion on the left compared to right but improved from her strength before last surgery. Sensation is intact to light touch in the lower extremity. Her wound is clean, dry and intact. Objective Data Vital Signs Vital Signs: Vital Signs - 24 hr 03/20/25 14:00 03/20/25 20:00 03/20/25 21:49 Temperature 98.2 F 98.9 F Pulse Rate 89 87 Respiratory Rate 16 18 Blood Pressure 130/68 121/71 Pulse Oximetry 99 100 Oxygen Delivery Room Air 03/21/25 05:05 03/21/25 08:27 03/21/25 08:50 Temperature 97.6 F Pulse Rate 72 80 Respiratory Rate 16 20 Blood Pressure 111/68 Pulse Oximetry 98 Oxygen Delivery Room Air Intake/Output Intake/Output: Intake & Output 03/18/25 03/19/25 03/20/25 03/21/25 23:59 23:59 23:59 23:59 Intake Total 1690 1970 560 400 Output Total 2330 022 686 8852 Balance -640 1170 -340 -800 Meds/Results Medications: Active Medications Generic Name Dose Route Start Last Admin Trade Name Freq PRN Reason Stop Dose Admin Acetaminophen 650 mg 03/16/25 11:20 03/21/25 06:29 Acetaminophen 325 Mg Tablet PO 650 mg Q6HR LANG Administration Al Hydrox/Mg Hydrox/Simethicone 20 ml 03/08/25 17:12 Mag Hydrox/Al Hydrox/Simeth 30 Ml Udc PO Q4H PRN Indigestion/Heartburn Albuterol 1 puff 03/06/25 21:53 Albuterol Sulfate (*Sp) Aerosol 1 Puff INHALATION Q4-6H PRN Wheezing Bisacodyl 10 mg 03/08/25 17:12 Bisacodyl 10 Mg Suppository RECTAL DAILY PRN Constipation Calcium Carbonate 500 mg 03/07/25 12:00 03/20/25 14:09 Calcium Carbonate (Oscal) 500 Mg Tablet PO 500 mg DAILY@1200 [facility] Administration Diazepam 5 mg 03/11/25 17:10 03/20/25 22:41 Diazepam (*Crx) 5 Mg Tablet PO 5 mg TID PRN Administration Muscle Spasm Docusate Sodium 100 mg 03/06/25 17:06 Docusate Sodium 100 Mg Capsule PO Q12H PRN Constipation Docusate Sodium 100 mg 03/08/25 21:00 03/21/25 08:50 Docusate Sodium 100 Mg Capsule PO 100 mg Q12HR [facility]ANG Administration Enoxaparin Sodium 40 mg 03/12/25 13:40 03/21/25 08:52 Enoxaparin 40 Mg/0.4 Ml Syringe SUB-Q 40 mg DAILY LANG Administration Gabapentin 300 mg 03/21/25 09:00 03/21/25 08:51 Gabapentin 300 Mg Capsule PO 300 mg BID@0900,1200 [facility] Administration Gabapentin 600 mg 03/20/25 21:00 03/20/25 21:02 Gabapentin 300 Mg Capsule PO 600 mg HS [facility] Administration Hydrochlorothiazide 12.5 mg 03/07/25 09:00 03/21/25 08:51 Hydrochlorothiazide 12.5 Mg Capsule PO 12.5 mg DAILY [facility] Administration Hydromorphone HCl 0.25 mg 03/16/25 13:51 Hydromorphone Hcl Inj (*Crx) 1 Mg/Ml Syr IV PUSH Q5M PRN Pain Hydroxyzine HCl 25 mg 03/06/25 21:38 03/15/25 22:58 Hydroxyzine Hcl 25 Mg Tablet PO 25 mg QID PRN Administration Anxiety Levothyroxine Sodium 50 mcg 03/07/25 06:30 03/21/25 06:29 Levothyroxine Sodium 50 Mcg Tablet PO 50 mcg DAILY@0630 [facility] Administration Lidocaine 1 patch 03/11/25 09:00 03/21/25 08:50 Lidocaine 5% Patch TRANSDERM Not Given DAILY [facility] Lisinopril 10 mg 03/07/25 09:00 03/21/25 08:51 Lisinopril 10 Mg Tablet PO 10 mg DAILY [facility] Administration Loratadine 10 mg 03/06/25 21:44 Loratadine 10 Mg Tablet PO DAILY PRN Congestion Meclizine HCl 25 mg 03/06/25 21:38 03/14/25 10:09 Meclizine Hcl 25 Mg Tablet PO 25 mg TID PRN Administration Dizziness Or Vertigo Miscellaneous Information 1 each 03/17/25 00:01 Please Renew _Hydromorphone An. Per [employer] Procedure, It Will Discontinue If Not Renewed XX 04/16/25 00:00 CLARIFY [facility] Miscellaneous Information 1 each 03/20/25 00:01 Please Renew Diazepam. Per [employer] Procedure, It Will Discontinue If Not Renewed XX 04/19/25 00:00 CLARIFY [facility] Multivitamins Therapeutic 1 tablet 03/07/25 12:00 03/20/25 14:09 Multivitamins Therapeutic Tab (*Bkc) PO 1 tablet DAILY@1200 [facility] Administration Ondansetron HCl 4 mg 03/06/25 17:01 03/19/25 10:20 Ondansetron Hcl Odt 4 Mg Tablet PO 4 mg Q6H PRN Administration Nausea And Vomiting Oxycodone/Acetaminophen 1 tab 03/07/25 10:39 03/21/25 10:09 Oxycodone/Acetaminophen (*Crx) 10-325 Mg Tablet PO 1 tab Q4H PRN Administration Pain Rated 7-10 Pantoprazole Sodium 40 mg 03/07/25 09:00 03/21/25 08:51 Pantoprazole 40 Mg Tablet PO 40 mg QAM [facility]ANG Administration Polyethylene Glycol 17 gm 03/06/25 17:06 Polyethylene Glycol 3350 17 Gm Powd.Pack PO QAM PRN Constipation Fluticasone/Salmeterol 2 puff 03/07/25 08:00 03/21/25 08:27 Fluticasone/Salmeterol 45-21 Mcg Inhaler 1 Puff INHALATION 2 puff DAILYRT [facility]ANG Administration Senna/Docusate Sodium 1 tab 03/08/25 17:12 03/11/25 05:35 Senna/Docusate Sodium Tablet PO 1 tab HS PRN Administration Constipation Senna/Docusate Sodium 1 tab 03/09/25 17:00 03/21/25 08:51 Senna/Docusate Sodium Tablet PO 1 tab BID LANG Administration Simvastatin 40 mg 03/07/25 09:00 03/21/25 08:50 Simvastatin 20 Mg Tablet PO 40 mg DAILY LANG Administration Vitamin D 25 mcg 03/07/25 09:00 03/21/25 08:50 Cholecalciferol (Vitamin D3) 25 Mcg (1,000 Units) Tablet PO 25 mcg DAILY LANG Administration Vitamin D 250 mcg 03/07/25 09:00 03/21/25 08:51 Cholecalciferol (Vitamin D3) 125 Mcg (5,000 Units) Tablet PO 250 mcg DAILY LANG Administration Radiology Results: ITS Impressions Chest X-Ray 03/06/25 16:17 IMPRESSION: 1: NO ACUTE CARDIOPULMONARY DISEASE. Venous Doppler Study 03/10/25 09:45 IMPRESSION: 1: No left lower extremity deep venous thrombosis. Lumbar Spine CT 03/10/25 15:39 IMPRESSION: 1. Again seen are changes of combined instrumented L5-S1 anterior and posterior spinal fusion with revision of the connection between the vertical srinath and the left S1 pedicle screw, placement of new bone graft material bilaterally and decompression with surgical drain placement at a postoperative hematoma/seroma at the laminectomy bed. 2. Redemonstration of nondisplaced fracture across the base of the right pedicle of L5 with some lucency along the cephalad margin of the right L5 pedicle screw at the level of the vertebral body. 3. Unchanged instrumented left sacroiliac arthrodesis. Lumbar Spine MRI 03/13/25 17:24 IMPRESSION: 1. Severe lumbar spondylosis. 2. Anterior and posterior fusion procedures at L5-S1. 3. Worsened fluid collection involving the surgical bed of the L5 posterior elements extending superiorly in the subcutaneous region. This finding may be a seroma, hematoma, or abscess. Fluoroscopy 03/16/25 18:37 IMPRESSION: 1. Fluoroscopy utilized during interpretation of an instrumented combined L5-S1 anterior and posterior spinal fusion. See procedure note for further detail. Labs Labs: Laboratory Results - last 24 hr 03/21/25 05:56 WBC 5.7 RBC 2.94 L Hgb 8.5 L Hct 27.8 L MCV 94.6 MCH 28.9 MCHC 30.6 L RDW 15.5 H Plt Count 280 MPV 10.8 H Sodium 135 L Potassium 3.8 Chloride 101 Carbon Dioxide 30 Anion Gap 4 BUN 13 Creatinine 0.64 L Estim Creat Clear Calc 66 Estimated GFR > 60 Glucose 89 Calcium 9.3 Total Bilirubin 0.2 AST 34 ALT 29 Alkaline Phosphatase 101 Total Protein 6.1 L Albumin 3.3 L
--- NOTE | 2025-03-21 11:30 | WPDINFPN2 ---
Progress Note: A&P Assessment and Plan (1) Inflammatory spondylopathy of sacral region: Code(s): M46.98 - Unspecified inflammatory spondylopathy, sacral and sacrococcygeal region Status: Acute (2) Acute post-operative pain: Code(s): G89.18 - Other acute postprocedural pain Status: Acute (3) Hematoma following procedure: Status: Acute (4) Urinary tract infection: Code(s): N39.0 - Urinary tract infection, site not specified Status: Acute (5) Edema of left lower extremity: Code(s): R60.0 - Localized edema Status: Acute (6) Antibiotic causing adverse effect: Code(s): T36.95XA - Adverse effect of unspecified systemic antibiotic, initial encounter Status: Acute Plan # Postoperative lumbosacral recurrent fluid collection. -- status post surgical site revision with evacuation 03/08/2025 but with recurrence. Now status post L5-S1 revision posterior instrumentation, L5-S1 left side foraminotomy with evacuation of hematoma and obtainment of cultures 03/16/2025. -- seroma/hematoma without clinical evidence of abscess noted 03/08/2025. Similar hematoma encountered 03/16/2025. In addition, she has been without fever, leukocytosis, or elevated CRP at the time of presentation and remains without fever or leukocytosis since. -- recurrent fluid collection may again represent seroma/hematoma but can not completely rule out the possibility of secondary infected fluid collection (abscess). However, might expect fever and or leukocytosis if that were the case. # Status post treatment for E coli UTI on presentation. --completed treatment with ceftriaxone. # Reported hives allergy to penicillin and additional allergy to sulfa medications. -- proven to tolerate cephalosporins. Plan: --Continue to follow off systemic antimicrobials Follow anaerobic cx Can follow up with Dr. Abelardo Sams in 2 weeks to monitor sx in outpt setting Discussed in detail with patient this afternoon. All questions answered Discharge planning per primary service Patient was seen via video telehealth consultation with the assistance of staff. Chart, data, and patient independently reviewed. Patient was located at [facility] while I was located in my [place] office. Received verbal consent from patient. Subjective Date/time seen: 03/21/25 11:30 Interval history: Patient afebrile. She is feeling well. She is looking forward to going home. Review of Systems Review of Systems: All systems reviewed & are unremarkable except as noted in HPI and below Exam Narrative: Sitting up at the side of the bed and working with physical therapy. In better spirits today. No respiratory difficulty. No significant abdominal distension. Back surgical site Hemovac in place with bloody drainage present. No rash. Objective Data Vital Signs Vital Signs: Vital Signs - 24 hr 03/20/25 14:00 03/20/25 20:00 03/20/25 21:49 Temperature 98.2 F 98.9 F Pulse Rate 89 87 Respiratory Rate 16 18 Blood Pressure 130/68 121/71 Pulse Oximetry 99 100 Oxygen Delivery Room Air 03/21/25 05:05 03/21/25 08:27 03/21/25 08:50 Temperature 97.6 F Pulse Rate 72 80 Respiratory Rate 16 20 Blood Pressure 111/68 Pulse Oximetry 98 Oxygen Delivery Room Air Intake/Output Intake/Output: Intake & Output 03/18/25 03/19/25 03/20/25 03/21/25 23:59 23:59 23:59 23:59 Intake Total 1690 1970 560 760 Output Total 2330 736 248 0455 Balance -640 1170 -340 -440 Meds/Results Medications: Active Medications Generic Name Dose Route Start Last Admin Trade Name Freq PRN Reason Stop Dose Admin Acetaminophen 650 mg 03/16/25 11:20 03/21/25 06:29 Acetaminophen 325 Mg Tablet PO 650 mg Q6HR LANG Administration Al Hydrox/Mg Hydrox/Simethicone 20 ml 03/08/25 17:12 Mag Hydrox/Al Hydrox/Simeth 30 Ml Udc PO Q4H PRN Indigestion/Heartburn Albuterol 1 puff 03/06/25 21:53 Albuterol Sulfate (*Sp) Aerosol 1 Puff INHALATION Q4-6H PRN Wheezing Bisacodyl 10 mg 03/08/25 17:12 Bisacodyl 10 Mg Suppository RECTAL DAILY PRN Constipation Calcium Carbonate 500 mg 03/07/25 12:00 03/20/25 14:09 Calcium Carbonate (Oscal) 500 Mg Tablet PO 500 mg DAILY@1200 LANG Administration Diazepam 5 mg 03/11/25 17:10 03/20/25 22:41 Diazepam (*Crx) 5 Mg Tablet PO 5 mg TID PRN Administration Muscle Spasm Docusate Sodium 100 mg 03/06/25 17:06 Docusate Sodium 100 Mg Capsule PO Q12H PRN Constipation Docusate Sodium 100 mg 03/08/25 21:00 03/21/25 08:50 Docusate Sodium 100 Mg Capsule PO 100 mg Q12HR LANG Administration Enoxaparin Sodium 40 mg 03/12/25 13:40 03/21/25 08:52 Enoxaparin 40 Mg/0.4 Ml Syringe SUB-Q 40 mg DAILY LANG Administration Gabapentin 300 mg 03/21/25 09:00 03/21/25 08:51 Gabapentin 300 Mg Capsule PO 300 mg BID@0900,1200 LANG Administration Gabapentin 600 mg 03/20/25 21:00 03/20/25 21:02 Gabapentin 300 Mg Capsule PO 600 mg HS LANG Administration Hydrochlorothiazide 12.5 mg 03/07/25 09:00 03/21/25 08:51 Hydrochlorothiazide 12.5 Mg Capsule PO 12.5 mg DAILY LANG Administration Hydromorphone HCl 0.25 mg 03/16/25 13:51 Hydromorphone Hcl Inj (*Crx) 1 Mg/Ml Syr IV PUSH Q5M PRN Pain Hydroxyzine HCl 25 mg 03/06/25 21:38 03/15/25 22:58 Hydroxyzine Hcl 25 Mg Tablet PO 25 mg QID PRN Administration Anxiety Levothyroxine Sodium 50 mcg 03/07/25 06:30 03/21/25 06:29 Levothyroxine Sodium 50 Mcg Tablet PO 50 mcg DAILY@0630 LANG Administration Lidocaine 1 patch 03/11/25 09:00 03/21/25 08:50 Lidocaine 5% Patch TRANSDERM Not Given DAILY LANG Lisinopril 10 mg 03/07/25 09:00 03/21/25 08:51 Lisinopril 10 Mg Tablet PO 10 mg DAILY LANG Administration Loratadine 10 mg 03/06/25 21:44 Loratadine 10 Mg Tablet PO DAILY PRN Congestion Meclizine HCl 25 mg 03/06/25 21:38 03/14/25 10:09 Meclizine Hcl 25 Mg Tablet PO 25 mg TID PRN Administration Dizziness Or Vertigo Miscellaneous Information 1 each 03/17/25 00:01 Please Renew _Hydromorphone An. Per [employer] Procedure, It Will Discontinue If Not Renewed XX 04/16/25 00:00 CLARIFY LANG Miscellaneous Information 1 each 03/20/25 00:01 Please Renew Diazepam. Per [employer] Procedure, It Will Discontinue If Not Renewed XX 04/19/25 00:00 CLARIFY [facility] Multivitamins Therapeutic 1 tablet 03/07/25 12:00 03/20/25 14:09 Multivitamins Therapeutic Tab (*Bkc) PO 1 tablet DAILY@1200 LANG Administration Ondansetron HCl 4 mg 03/06/25 17:01 03/19/25 10:20 Ondansetron Hcl Odt 4 Mg Tablet PO 4 mg Q6H PRN Administration Nausea And Vomiting Oxycodone/Acetaminophen 1 tab 03/07/25 10:39 03/21/25 10:09 Oxycodone/Acetaminophen (*Crx) 10-325 Mg Tablet PO 1 tab Q4H PRN Administration Pain Rated 7-10 Pantoprazole Sodium 40 mg 03/07/25 09:00 03/21/25 08:51 Pantoprazole 40 Mg Tablet PO 40 mg QAM LANG Administration Polyethylene Glycol 17 gm 03/06/25 17:06 Polyethylene Glycol 3350 17 Gm Powd.Pack PO QAM PRN Constipation Fluticasone/Salmeterol 2 puff 03/07/25 08:00 03/21/25 08:27 Fluticasone/Salmeterol 45-21 Mcg Inhaler 1 Puff INHALATION 2 puff DAILYRT LANG Administration Senna/Docusate Sodium 1 tab 03/08/25 17:12 03/11/25 05:35 Senna/Docusate Sodium Tablet PO 1 tab HS PRN Administration Constipation Senna/Docusate Sodium 1 tab 03/09/25 17:00 03/21/25 08:51 Senna/Docusate Sodium Tablet PO 1 tab BID LANG Administration Simvastatin 40 mg 03/07/25 09:00 03/21/25 08:50 Simvastatin 20 Mg Tablet PO 40 mg DAILY LANG Administration Vitamin D 25 mcg 03/07/25 09:00 03/21/25 08:50 Cholecalciferol (Vitamin D3) 25 Mcg (1,000 Units) Tablet PO 25 mcg DAILY LANG Administration Vitamin D 250 mcg 03/07/25 09:00 03/21/25 08:51 Cholecalciferol (Vitamin D3) 125 Mcg (5,000 Units) Tablet PO 250 mcg DAILY LANG Administration Radiology Results: ITS Impressions Chest X-Ray 03/06/25 16:17 IMPRESSION: 1: NO ACUTE CARDIOPULMONARY DISEASE. Venous Doppler Study 03/10/25 09:45 IMPRESSION: 1: No left lower extremity deep venous thrombosis. Lumbar Spine CT 03/10/25 15:39 IMPRESSION: 1. Again seen are changes of combined instrumented L5-S1 anterior and posterior spinal fusion with revision of the connection between the vertical srinath and the left S1 pedicle screw, placement of new bone graft material bilaterally and decompression with surgical drain placement at a postoperative hematoma/seroma at the laminectomy bed. 2. Redemonstration of nondisplaced fracture across the base of the right pedicle of L5 with some lucency along the cephalad margin of the right L5 pedicle screw at the level of the vertebral body. 3. Unchanged instrumented left sacroiliac arthrodesis. Lumbar Spine MRI 03/13/25 17:24 IMPRESSION: 1. Severe lumbar spondylosis. 2. Anterior and posterior fusion procedures at L5-S1. 3. Worsened fluid collection involving the surgical bed of the L5 posterior elements extending superiorly in the subcutaneous region. This finding may be a seroma, hematoma, or abscess. Fluoroscopy 03/16/25 18:37 IMPRESSION: 1. Fluoroscopy utilized during interpretation of an instrumented combined L5-S1 anterior and posterior spinal fusion. See procedure note for further detail. Labs Labs: Laboratory Results - last 24 hr 03/21/25 05:56 WBC 5.7 RBC 2.94 L Hgb 8.5 L Hct 27.8 L MCV 94.6 MCH 28.9 MCHC 30.6 L RDW 15.5 H Plt Count 280 MPV 10.8 H Sodium 135 L Potassium 3.8 Chloride 101 Carbon Dioxide 30 Anion Gap 4 BUN 13 Creatinine 0.64 L Estim Creat Clear Calc 66 Estimated GFR > 60 Glucose 89 Calcium 9.3 Total Bilirubin 0.2 AST 34 ALT 29 Alkaline Phosphatase 101 Total Protein 6.1 L Albumin 3.3 L
[2025-03-21] MEDS: CALCIUM CARBONATE (OSCAL) 500 MG TABLET PO (11:43)
[2025-03-21] MEDS: MULTIVITAMINS THERAPEUTIC TAB (*BKC) 1 TABLET PO (11:43)
--- NOTE | 2025-03-21 13:44 | P.DS_ITS ---
DS: Admitting Diagnosis Discharge Date 03/21/2025 Admitting Diagnosis Back pain peripheral edema uti htn anemia DS: Discharge Diagnosis Discharge Diagnosis (1) Back pain: Qualifiers: Back pain laterality: bilateral Back pain location: low back pain Chronicity: acute Sciatica laterality: sciatica of right side Sciatica presence: with sciatica Qualified Code(s): M54.41 - Lumbago with sciatica, right side Code(s): M54.9 - Dorsalgia, unspecified Status: Acute (2) Peripheral edema: Code(s): R60.0 - Localized edema Status: Acute (3) Urinary tract infection: Code(s): N39.0 - Urinary tract infection, site not specified Status: Acute (4) Hypertension: Qualifiers: Hypertension type: primary hypertension Qualified Code(s): I10 - Essential (primary) hypertension Code(s): I10 - Essential (primary) hypertension Status: Chronic (5) Anemia: Code(s): D64.9 - Anemia, unspecified Status: Acute DS: Summary Hospital Course Reason for hospitalization: Back pain peripheral edema uti htn anemia Hospital Course: 75 year old female with past medical history of mitral valve prolapse, hypothyroidism, hyperlipidemia, asthma, and hypertension presents to the hospital with back pain and lower extremity edema. Patient had recent L5-S1 posterior lumbar interbody fusion and L3-4 hemilaminectomy on 01/10/[address] Silvestre. Initially complicated by post-operative pain. Patient had lower extremity dopplers obtained on 03/06 and 03/10 both of which were negative for dVT. On admission patient obtained a CT lumbar spine 03/06 showed severe lower lumbar spondylosis status post interval L5 laminectomy and combined instrumented L5-S1 anterior and posterior spinal fusion, there appears to be a subacute to early chronic still discernible nondisplaced coronally oriented fracture extends across the anterior base of the right L5 pedicle, there appears to be increased soft tissue density at the laminectomy bed with suggestion of moderate residual central canal stenosis at this level and interval instrumented left sacroiliac arthrodesis. Neurosurgery consulted. Patient underwent a lumbar wound exploration for seroma, revision of posterior instrumentation L5-S1, redo posterolateral fusion L5-S1 on 03/[address] Silvestre. Despite the surgical intervention patient continued have increased pain. CT was repeated on 03/10 and showed combined instrumented L5-S1 anterior and posterior spinal fusion with revision of the connection between the vertical srinath and the left S1 pedicle screw, placement of new bone graft material bilaterally and decompression with surgical drain placement at a postoperative hematoma/seroma at the laminectomy bed, redemonstration of nondisplaced fracture across the base of the right pedicle of L5 with some lucency along the cephalad margin of the right L5 pedicle screw at the level of the vertebral body and unchanged instrumented left sacroiliac arthrodesis. Patient then had a lumbar spine MRI 03/13 which showed severe lumbar spondylosis, anterior and posterior fusion procedures at L5-S1, and worsened fluid collection involving the surgical bed of the L5 posterior elements extending superiorly in the subcutaneous region. ID consulted given possible abscess seen on imaging. Antibiotics were held pending the obtaining a culture. Patient then underwent a left L5-S1 foraminotomy and revision on 03/[address] Silvestre. Hemovac placed at that time. Patient started on IV antibiotics per ID. Hemovac removed on 03/18. Wound aerobic culture negative with anaerobic pending. ID discontinued IV antibiotics. Patient to follow up with ID in the outpatient setting. Patient remained on an pain regimen given ongoing back and lower extremity pain. She states that the current pain regimen is cover ing well. Patient states she tolerated the increased gabapentin well denying any increased lethargy and confusion. During admission patient worked with therapy who recommended placement. After a lengthy conversation with patient she refuses placement and wishes to proceed with home health. Home health set up per care coordination. Prior to discharge discussed patient with Neurosurgery Dr. Silvestre. He states patient is stable for discharge from his perspective on the current pain regimen. Discussed restrictions at time of discharge which were placed in the discharge instructions. Neurosurgery to see patient in 1 month. Patient to call neurosurgery office for pain medication refills. During admission patient was noted to have a UA concerning for infection and patient was reporting hesitancy. Urine culture grew E coli that was pansensitive. During admission patient completed her course of antibiotics. During admission patient was noted to be anemic. Active bleeding. An iron antunez el was obtained and showed iron deficiency anemia. Patient was started on iron supplementation Patient had no complaints at time of discharge denying chest pain, shortness a breath, palpitations, nausea/vomiting, and abdominal pain. Again patient stated that pain was well controlled on the current regimen. Patient discharged home with home health in a stable condition. She is to follow up with her PCP in 1 week, ID in 2 weeks and neurosurgery in 1 month. Status at Discharge Functional status at discharge: uses cane/walker Time Spent with Patient Time attestation: Total time spent providing and/or coordinating discharge services: Time spent: Greater than 30 minutes Exam Narrative: AF HR 72 RR 16 Spo2 98 BP 111/68 General: female in no acute respiratory distress who is nontoxic appearing, sitting up in bed HEENT: Normocephalic. Atraumatic. Extraocular movement intact. Sclera clear and anicteric. No facial asymmetry. Chest: Lungs are clear to auscultation bilaterally. No wheezes or crackles. CV: Heart was regular rate and rhythm. Abd: Abdomen was soft. Nontender. Nondistended. Positive bowel sounds. Back: Surgical incision without redness, drainage or warmth. [address] Ext: No clubbing, cyanosis. Mild edema to left lower extremity, improving from yesterday. DP pulses bilaterally. Decreased sensation to left lower extremity. Neuro: Patient is alert. Sensation intact. Speech is clear. DS: Data Data Completed and Pending Labs on day of discharge: Labs from last 24 hours 03/21/25 05:56 WBC 5.7 RBC 2.94 L Hgb 8.5 L Hct 27.8 L MCV 94.6 MCH 28.9 MCHC 30.6 L RDW 15.5 H Plt Count 280 MPV 10.8 H Sodium 135 L Potassium 3.8 Chloride 101 Carbon Dioxide 30 Anion Gap 4 BUN 13 Creatinine 0.64 L Estim Creat Clear Calc 66 Estimated GFR > 60 Glucose 89 Calcium 9.3 Total Bilirubin 0.2 AST 34 ALT 29 Alkaline Phosphatase 101 Total Protein 6.1 L Albumin 3.3 L Discharge Plan Discharge Attending physician on discharge: Nixon Billings Consulting providers: Yandy Catalan; Hazel Swift; Hao Silvestre; Marlon Lin Discharging Clinician: Hazel Swift Anticipated Discharge Date/Time: 03/21/25 13:13 Patient Disposition: Home with Home Health Service Activity: as tolerated Diet: as tolerated and heart healthy Discharge Instructions: Discharge disposition: Patient admitted to the hospital for postoperative back pain Underwent a lumbar wound exploration for seroma, revision of posterior instrumentation L5-S1, redo posterolateral fusion L5-S1 on 03/[address] Silvestre. Then underwent a left L5-S1 foraminotomy and revision on 03/[address] Silvestre Take medications as prescribed Scheduled Tylenol 650 q6h scheduled Gabapentin 300 mg with breakfast and lunch, 600 mg prior to bed. Percocet 10-325 mg q4h as needed Valium 5 mg nightly as needed Attached is information on these medications Contact neurosurgery office for refills No driving or operating heavy machinery on these medications No lifting more than 10 pounds No bending or twisting when standing Plan for home health to remove the juan, if unable to call neurosurgery office for removal Continue to use a walker with ambulation Follow up with Dr. Silvestre, neurosurgery in 1 month Follow with infectious disease in 2 weeks to monitor sx in outpt setting During admission patient was diagnosed with urinary tract infection Antibiotic course completed during admission Eat well balanced meals and stay hydrated Keep active to remain strong Avoid use of diapers or pads Good lizy Care every 2 hours Trend urine output During admission patient was noted to be mildly anemic Iron panel showing iron deficiency anemia Started on iron replacement Primary care to continue to follow. Monitor blood pressures Take caution while standing, rising, or moving Change positions slowly taking a break between each position change If you standing feel dizzy sit back down and take a break Encouraged to continue with yearly vaccinations Return to the emergency department if he developed sudden shortness of breath, chest pain, nausea, vomiting, upset stomach or intractable diarrhea Return to the emergency department if you develop fever greater than 100.5 Follow-up with the primary care physician within 1-2 weeks Thank you for [facility] for your healthcare needs Care Coordination: Patient to have [facility] resume services at discharge. They can be reached at [phone] if you have any questions; they will contact you to schedule their visits. RN Please fax discharge ins tructions to [phone]. Patient Instructions: Oxycodone/Acetaminophen (By mouth), Diazepam (By mouth), Gabapentin (By mouth), Blood Thinners (GEN) Patient Language: Yemeni Stand Alone Forms: General Discharge Information Follow-up/Referrals: Marlon Lin MD [Physician, Infectious Disease] - 2 Weeks Fady,Juan Schwartz MD [Primary Care Provider, Unknown] - 1 Week Hao Silvestre MD [Physician, Neurosurgery] - Call for Appointment Discharge Medications: New oxycodone-acetaminophen 10-325 mg Tablet 1 tablet PO Q4H PRN (Reason: Pain Rated 7-10) Qty: 18 0RF gabapentin [Neurontin] 300 mg Capsule 300 mg PO BID@0900,1200 Qty: 60 0RF gabapentin [Neurontin] 300 mg Capsule 600 mg PO HS Qty: 30 0RF diazepam 5 mg Tablet 5 mg PO HS PRN (Reason: Muscle Spasm) Qty: 5 0RF Continued calcium carbonate [Calcium 600] 600 mg calcium (1,500 mg) tablet 600 mg PO DAILY albuterol sulfate 90 mcg/actuation aerosol powdr breath activated 1 inh inhalation Q4-6H PRN (Reason: Wheezing) cetirizine 10 mg tablet 10 mg PO DAILY PRN (Reason: Congestion) hydroxyzine HCl 25 mg tablet 25 mg PO QID PRN (Reason: Anxiety) levothyroxine 50 mcg capsule 50 mcg PO DAILY meclizine 25 mg tablet 25 mg PO TID PRN (Reason: Dizziness Or Vertigo) pantoprazole 40 mg tablet,delayed release (DR/EC) 40 mg PO QAM simvastatin 40 mg tablet 40 mg PO DAILY ondansetron 4 mg tablet,disintegrating 4 mg PO Q6H PRN (Reason: nausea and vomiting) Qty: 30 0RF hydrochlorothiazide 12.5 mg capsule 12.5 mg PO DAILY lisinopril 10 mg tablet 10 mg PO DAILY cholecalciferol (vitamin D3) 25 mcg (1,000 unit) capsule 25 mcg PO DAILY cyclobenzaprine 10 mg Tablet 10 mg PO TID PRN (Reason: Muscle Spasms) 10 Days Qty: 30 0RF multivitamin Tablet 1 tablet PO DAILY cholecalciferol (vitamin D3) 250 mcg (10,000 unit) Capsule 250 mcg PO DAILY meloxicam 15 mg tablet 15 mg PO DAILY budesonide-formoterol [Symbicort] 80-4.5 mcg/actuation HFA aerosol inhaler 2 inh inhalation DAILY cyclobenzaprine 10 mg tablet 10 mg PO TID PRN (Reason: muscle spasm) Qty: 20 0RF budesonide 6 mg Capsule, Extended Release 6 mg PO DAILY Held clopidogrel 75 mg Tablet 75 mg PO DAILY Hold Instructions: Resume on 03/23/25. Hold until 1 week after surgery which is 03/23 Discontinued gabapentin 300 mg capsule 300 mg PO Q12H oxycodone-acetaminophen 5-325 mg tablet 1 - 2 tablet PO Q6H PRN (Reason: pain) Qty: 40 0RF Date of admission: 03/07/25 17:14 Primary Care Provider: Fady,Juan Schwartz Admitting Provider: Santos Sanchez Attending physician on admission: Santos Sanchez Condition: Stable
== END 2025-03-21 14:52 | disposition home health service (06) | DRG 29 ==
LOC: ANHED 15:47 → ANH2MED 17:34
PROVIDERS: Internal Medicine Infectious Disease; Neurological Surgery; Nurse Practitioner; Physician Assistant; Student in an Organized Health Care Education/Training Program; Admitting Provider Internal Medicine; Emergency Provider Emergency Medicine; PCP Family Medicine; Visit Provider Student in an Organized Health Care Education/Training Program
PROC: 0QP004Z Removal of Internal Fixation Device from Lumbar Vertebra, Open Approach (ICD-10-PCS; principal; 2025-03-08 14:30)
PROC: 0QC00ZZ Extirpation of Matter from Lumbar Vertebra, Open Approach (ICD-10-PCS; CPT 22612; principal; 2025-03-16 14:30)
DX: T85.695A Other mechanical complication of other nervous system device, implant or graft, initial encounter (principal); M96.840 Postprocedural hematoma of a musculoskeletal structure following a musculoskeletal system procedure; M96.842 Postprocedural seroma of a musculoskeletal structure following a musculoskeletal system procedure; N39.0 Urinary tract infection, site not specified; B96.20 Unspecified Escherichia coli [E. coli] as the cause of diseases classified elsewhere; R60.0 Localized edema; M48.061 Spinal stenosis, lumbar region without neurogenic claudication; I34.1 Nonrheumatic mitral (valve) prolapse; E03.9 Hypothyroidism, unspecified; E78.5 Hyperlipidemia, unspecified; D50.9 Iron deficiency anemia, unspecified; I10 Essential (primary) hypertension; E66.9 Obesity, unspecified; R32 Unspecified urinary incontinence; J45.909 Unspecified asthma, uncomplicated; Z85.828 Personal history of other malignant neoplasm of skin; Z90.49 Acquired absence of other specified parts of digestive tract; Z98.1 Arthrodesis status; Z68.31 Body mass index [BMI] 31.0-31.9, adult
CPT/HCPCS: 36415; 71045; 72131; 72148; 72158; 80048; 80053; 80202; 81001; 82274; 82728; 83540; 83550; 83880; 85025; 85027; 85610; 85652; 85730; 86140; 87070; 87075; 87086; 87186; 93005; 93970; 93971; 94640; 96372; 96374; 96375; 96376; 97110; 97116; 97162; 97166; 97530; 97535; 99199; 99285; J0690; A9270; A9577; C1713; G0378; J0692; J0696; J1100; J1171; J1650; J1756; J2003; J2004; J2270; J2371; J2405; J2704; J3010; J3373; J3480; J7030; J7120

== ENCOUNTER 2025-06-12 10:35 | Outpatient (CLI) | payer MEDICARE, OTHER, SELFPAY ==
--- NOTE | ~2025-06-12 | XR_ITS ---
EXAMINATION: XR hip LT min 2V DATE: 06/12/2025 11:10 INDICATION: Injury TECHNIQUE: Left hip x-rays were obtained. COMPARISON: None. FINDINGS: No displaced fracture dislocation. Left SI joint fusion hardware and lumbar spine fusion hardware noted. IMPRESSION: 1. No displaced fracture lucency. For persisting hip pain, consider correlation with CT or MRI for additional evaluation. Reviewed, dictated and finalized at location A. OL AGE TEACHER
--- NOTE | ~2025-06-12 | XR_ITS ---
EXAM/PROCEDURE: XR lumbar spine 2-3V HISTORY: Z98.1 - Arthrodesis status, FELL 1 WEEK AGO COMPARISON: None available. TECHNIQUE: 3 view lumbar spine FINDINGS: Posterior fusion hardware at L5-S1 with fusion hardware at the left SI joint. Multilevel degenerative changes, with advanced degenerative changes from L4 through S1. Milder degenerative changes at levels above L4. No gross hardware failure fracture or loosening. Fine bone and soft tissue detail obscured by overlying stool and bowel gas. IMPRESSION: No acute findings. Multilevel degenerative surgical changes. Reviewed, dictated and finalized at location A. OR [employer] OFFICER
--- NOTE | ~2025-06-12 | XR_ITS ---
EXAMINATION: XR hip RT min 2V DATE: 06/12/2025 11:10 INDICATION: Injury TECHNIQUE: Right hip x-rays were obtained. COMPARISON: None. FINDINGS: No displaced fracture lucency. Diffuse degenerative changes throughout the bones. The bones appear mildly osteopenic. Fusion hardware in the lower lumbar spine noted. IMPRESSION: 1. No displaced fracture lucency.For persisting hip pain, consider correlation with CT or MRI for additional evaluation. Reviewed, dictated and finalized at location A. [employer]
== END 2025-06-12 10:36 | disposition home or self-care (01) ==
PROVIDERS: PCP Family Medicine; Visit Provider Neurological Surgery
DX: M25.551 Pain in right hip (principal); M25.552 Pain in left hip; Z98.1 Arthrodesis status
CPT/HCPCS: 72100; 73502